=== PATIENT | female | born 1955 | race Caucasian/White ===

== ENCOUNTER 2023-07-01 17:46 | Emergency (ER) | payer MEDICARE, SELFPAY ==
[2023-07-01 17:47] VITALS: BP 136/77; PULSE 87; RESP 18; TEMP 35.9; O2SAT 100; BMI 26.3
[2023-07-01] MEDS: 0.9% Normal Saline (1000mL) 1,000 ML 1000 ML IV (18:49)
[2023-07-01 18:52] VITALS: BP 125/70; PULSE 79
[2023-07-01 18:53] LABS: Absolute Lymphocyte Count 2.12 X10^3/uL (0.83-4.51); Absolute Neutrophil Count 3.5 X10^3/uL (2.0-7.7); Basophil# 0.02 X10^3/uL; Basophil% 0.3 % (0-1); Eosinophil# 0.24 X10^3/uL; Eosinophils% 3.6 % (0-5); Hematocrit 35.9 % (37-47); Lymphocyte # 2.12 X10^3/ul (0.83-4.51); Lymphocyte % 31.6 % (19-41); Mean Corp Hgb Conc 33.4 g/dL (32-36); Mean Corpuscular Hgb 29.9 pg (27.0-32.0); Mean Corpuscular Volume 89.3 fL (81-99); Mean Platelet Vol. 9.7 fl (6.2-12.0); Monocyte# 0.81 X10^3/uL; Monocyte% 12.1 % (0-10); NRBC Flagged by Analyzer 0 % (0-5); Neutrophil % 52.3 % (47-70); Platelet Count 192 K/mm3 (150-450); RBC Distribution Width CV 13.5 % (11.6-14.6); RBC Distribution Width SD 44.1 fl (35.1-43.9); Red Blood Count 4.02 M/mm3 (4.2-5.4); White Blood Count 6.7 K/mm3 (4.4-11.0)
--- NOTE | 2023-07-01 18:55 | EDS_ITS ---
HPI HPI - GI History of Present Illness Chief Complaint: Nausea/Vomiting/Diarrhea Narrative Narrative: 67-year-old female presenting with nausea, vomiting, diarrhea which started on Friday. Patient states that she had a sick granddaughter over who had the same symptoms on Friday. Patient's granddaughter recovered. Patient started having symptoms on Friday. Patient has recovered since and has been able to eat some oatmeal and drink some fluids however today she noted that she was getting vertiginous dizziness. She states it feels like vertigo. She has had this in the past. She states that she does not have any medication for it. She states she is never been prescribed anything for her vertigo. She states that someone with the crystals in the ear or right . Patient denies any fevers over the course the last few days. She does not have a cough, shortness of breath, chest pain. Patient was seen by urgent care who tested her for COVID and influenza. Patient states these were negative. Patient was sent over to the ER out of concern for dehydration. She denies any anything out of the ordinary prior to becoming ill. She denies urinary or vaginal complaints. She denies abdominal pain. [facility] Medical History (Updated 07/01/23 @ 20:[address] Juan Jose Stallworth, ) Dehydration Nausea vomiting and diarrhea Home Medications meclizine 25 mg tablet 25 mg PO TID PRN dizziness #30 tabs 07/01/23 [Rx Last Taken Unknown] ondansetron 4 mg disintegrating tablet 4 mg PO Q8H PRN PRN Nausea #20 tabs 07/01/23 [Rx Last Taken Unknown] Allergy/AdvReac Type Severity Reaction Status Date / Time codeine AdvReac Intermediate Vomiting Verified 07/01/23 17:49 sulfamethoxazole AdvReac Intermediate Vomiting Verified 07/01/23 17:49 [From Bactrim] trimethoprim [From Bactrim] AdvReac Intermediate Vomiting Verified 07/01/23 17:49 Social History Smoking Status: Current every day smoker tobacco type: cigarettes ROS ROS ED Constitutional Constitutional ED: Denies chills, fever(s) or sweats Eyes Eyes: Denies blurry vision or change in vision ENT ENT ED: Denies ear pain or sore throat Cardiovascular Cardiovascular: Denies chest pain, palpitations or racing heartbeat Respiratory/Chest Respiratory/Chest: Denies cough, dyspnea or sputum Gastrointestinal Gastrointestinal: Reports diarrhea, nausea and vomiting; Denies abdominal pain or constipation Genitourinary Genitourinary ED: Denies dysuria, hematuria or urinary frequency Musculoskeletal Musculoskeletal: Denies arthralgias, myalgias or neck pain Integumentary Denies abscess, Abrasions or rash Neurologic Neurologic: Denies headache(s), paresthesias or weakness Psychiatric Psychiatric: Denies anxiety, depression, suicidal ideation or suicidal thoughts Endocrine Endocrinology: Denies polydipsia or polyuria EXAM Physical Exam Const Vital Signs: 07/01/23 17:47 07/01/23 18:52 Temperature 96.7 F L Temperature Source Temporal Pulse Rate 87 79 Respiratory Rate 18 Blood Pressure 136/77 H 125/70 H Blood Pressure Mean 96 88 Pulse Ox 100 Oxygen Delivery Method Room Air Positive well nourished General Appearance ED: NAD HEENT Reports moist mucous membranes HEENT Narrative: Positive Dunmor-Hallpike. Nystagmus noted. normocephalic and atraumatic Eyes PERRL Resp normal respiratory effort and clear to auscultation bilaterally Auscultation: Negative for rales, rhonchi or wheezes Cardio regular rate and regular rhythm GI non-tender Neuro CN's II-XII intact bilaterally Sensorium / Orientation: alert Psych mental status grossly normal MDM MDM MDM Narrative Medical decision making narrative: Patient presenting with nausea, vomiting and diarrhea which has resolved. She was seen by urgent care and there was concerned she is dehydrated although the patient states has been able to drink fluids and eat oatmeal over the course of the day. Her p.o. intake was lower than typical over the past couple of days. She does have a sick granddaughter who had similar symptoms so I suspect this is likely viral. She describes vertiginous dizziness and on exam she has positive Kimani-Hallpike. She is medicated with meclizine and Phenergan. IV line was established. She given a liter normal saline. CT started and tested for COVID influenza will not retest. CBC will be obtained to assess white blood cell count and hemoglobin. BMP to assess renal function, electrolytes, glucose. Will reevaluate. Reevaluation at 8 PM the patient is doing much better. She is been up and ambulating. She had something to eat and drink and she feels much better. I do suspect this is likely benign positional vertigo. CBC shows normal white blood cell count of 6.7. Hemoglobin 12.0. Platelets are normal at 192. Creatinine is elevated at 1.82 with a BUN of 37 and a BUN/creatinine ratio of 20.3 however there is no lab work comparison for this. I was able to log into [employer], and I was not able to find pertinent medical records available for review to compare to the patient's current lab/imaging/workup. There is no comparison BMP. I presume she is dehydrated. It is unclear what her baseline creatinine is. Since she is feeling better I will discharge her home. She likely has a viral syndrome preceding this. She is given Zofran and meclizine for home. Return precautions discussed. Impression: 1. Viral gastroenteritis 2. Vertigo Lab Data Attestation: I reviewed the patient's lab results. Labs: Laboratory Results - last 24 hr 07/01/23 07/01/23 18:40 19:39 WBC 6.7 RBC 4.02 L Hgb 12.0 Hct 35.9 L MCV 89.3 MCH 29.9 MCHC 33.4 RDW Std Deviation 44.1 H RDW Coeff of Christina 13.5 Plt Count 192 MPV 9.7 Immature Gran % (Auto) 0.100 Neut % (Auto) 52.3 Lymph % (Auto) 31.6 Appling % (Auto) 12.1 H Eos % (Auto) 3.6 Baso % (Auto) 0.3 Absolute Neuts (auto) 3.5 Absolute Lymphs (auto) 2.12 Nucleated RBC % 0 Sodium 133 L Potassium 3.5 Chloride 99 Carbon Dioxide 27.0 Anion Gap 7 BUN 37 H Creatinine 1.82 H Estim Creat Clear Calc 27.28 Est GFR (MDRD) Af Amer 35 L Est GFR (MDRD) Non-Af 29 L BUN/Creatinine Ratio 20.3 H Glucose 123 H Calcium 8.7 Urine Color Yellow Urine Clarity Sl. Cloudy Urine pH 5.0 Ur Specific Gower 1.020 Urine Protein 15 H Urine Glucose (UA) Normal Urine Ketones 5 H Urine Occult Blood Negative Urine Nitrite Negative Urine Bilirubin 1 H Urine Urobilinogen 4 H Ur Leukocyte Esterase 100 H Urine RBC 0 SEEN Urine WBC 5-10 SEEN Ur Squamous Epith Cells 0-5 SEEN Urine Bacteria 0 SEEN Urine Mucus 0 SEEN Discharge Plan Triage Chief Complaint: Nausea/Vomiting/Diarrhea ED Provider: Juan Jose Stallworth Dx/Rx/DC Orders Instructions: ED Vertigo, Unspecified, ED Gastroenteritis, Viral (Adult) Prescriptions: New meclizine 25 mg tablet 25 mg PO TID PRN (Reason: dizziness) Qty: 30 0RF ondansetron 4 mg tablet,disintegrating 4 mg PO Q8H PRN PRN (Reason: Nausea) Qty: 20 0RF Primary Care Provider: Care Physician,No Primary Referrals: Care Physician,No Primary [Primary Care Provider] - Disposition Disposition: Home, Self Care
[2023-07-01] MEDS: Meclizine HCl 25 MG Tablet PO (18:58)
[2023-07-01] MEDS: proMETHazine 25 MG/ML Syringe 12.5 MG IM (18:59)
[2023-07-01 19:05] LABS: Anion Gap 7 (5-15); BUN 37 mg/dL (7-18); BUN/Creat Ratio 20.3 RATIO (10-20); Calcium,Total 8.7 mg/dL (8.5-10.1); Chloride 99 mmol/L (98-107); Creatinine, Serum 1.82 mg/dL (0.55-1.02); EST Glomerular Filtration Rate 29 mL/min (>60); Est Glom Filt Rate - Afr Amer 35 mL/min (>60); Estimated Creatinine Clearance 27.28 ml/min; Glucose 123 mg/dL (74-106); Potassium 3.5 mmol/L (3.5-5.1); Sodium Level 133 mmol/L (136-145)
[2023-07-01 19:45] LABS: Bacteria 0 SEEN /hpf (None Seen); Mucous, Urine 0 SEEN /hpf (<or=2+); Red Blood Cells-Urine 0 SEEN /hpf (0-5)
[2023-07-01 19:47] LABS: Color, Urine Yellow (Yellow); Glucose, Dipstick Normal (Normal); Ketone-Dipstick 5 mg/dl (Negative); Leukocyte Esterase-Dipstick 100 /ul (Negative); Nitrite-Dipstick Negative (Negative); Occult Blood-Urine Negative /ul (Negative); Protein-Dipstick 15 mg/dl (Negative); Urine Clarity Sl. Cloudy (Clear); Urine Urobilinogen 4 mg/dl (Normal)
[2023-07-01 19:54] LABS: Urine Bilirubin Dipstick 1 mg/dL (Negative)
[2023-07-01 19:55] LABS: Squamous Epithelial Cells - UA 0-5 SEEN /hpf (5-10); White Blood Cells 5-10 SEEN /hpf (0-5)
[2023-07-01 20:00] VITALS: BP 116/74; PULSE 72; RESP 16; O2SAT 98
--- OUTSIDE RECORDS SUMMARY | 2023-07-01 20:17 | XMS RPT_ITS | CCD ---
Author Name Unknown Address [address] [address] [place] [address] Organization [facility] Care Team Providers Care Mercury Recoverer Name Role Phone Unavailable Primary Care Provider Unavailjess Key MD, Karen Torres Primary Care Provider BRIDENTHAL DIMENSION MILL WORKER/OPTICAL EFFECTS LINE UP PERSON, SEDRICK Primary Care Physic vu BRIDENTHAL DIMENSION MILL WORKER/OPTICAL EFFECTS LINE UP PERSON, SEDRICK Attending Farnaz vailable BRIDENTHAL DIMENSION MILL WORKER/OPTICAL EFFECTS LINE UP PERSON, SEDRICK Primary Care Farnaz vailable BRIDENTHAL, SEDRICK Attending Unavailable KAREN KEY Primary Care Unavailable LOUISEENTHAL, SEDRICK Attending Unavailable KAREN KEY Primary Care Unavailable KAREN KEY Primary Care Unavailable LOUISEENTHAL, SEDRICK Attending Unavailable KAREN KEY Primary Care Unavailable Allergies Allergy Classification Reported Allergen(s) Allergy Type Date of Onset Reaction(s) Facility (5 sources) Codeine Drug Allergy 3 Dizziness, Vomiting Only [facility] (5 sources) Sulfamethoxazole / Trimethoprim Drug Allergy 3 Vomiting Only [facility] Medications Current Medications Medication Drug Class(es) Dates Sig (Normalized) Sig (Original) acetaminophen 500 mg oral tablet (5 sources) take 1 tablet by mouth in the morning acetaminophen (Tylenol) 500 MG tablet Take 500 mg by mouth in the morning and 500 mg in the evening. 0 Active atorvastatin 10 mg oral tablet (5 sources) HMG-CoA Reductase Inhibitor Start: 01-11-2023 atorvastatin (Lipitor) 10 MG tablet chlorthalidone 25 mg oral tablet (5 sources) Thiazide-like Diuretic Start: 01-11-2023 chlorthalidone (Hygroton) 25 MG tablet DIGESTIVE ENZYMES PO (5 sources) DIGESTIVE ENZYME S PO Take 175 mg by mouth in the morning and 175 mg at noon and 175 mg in the evening. 0 Active Fish Oils (5 sources) take 1 capsule by mouth once daily omega-3 (Fish Oil) 1200 MG capsule Take 1,200 mg by mouth daily. 0 Active furosemide 20 mg oral tablet (5 sources) Loop Diuretic Start: 01-31-2023 furosemide (Lasix) 20 MG tablet indomethacin 50 mg oral capsule (5 sources) Nonsteroidal Anti-inflammatory Drug Start: 03-14-2023 indomethacin (Indocin) 50 MG capsule irbesartan 300 mg oral tablet (5 sources) Angiotensin 2 Receptor Jimmy Start: 01-11-2023 irbesartan (Avapro) 300 MG tablet levothyroxine sodium 0.075 mg oral tablet (5 sources) l-Thyroxine Start: 01-11-2023 levothyroxine (Synthroid, Levoxyl) 75 MCG tablet metFORMIN hydrochloride 1000 mg oral tablet (5 sources) Biguanide Start: 03-14-2023 metFORMIN (Glucophage) 1000 MG tablet nystatin [id number] unt/ml topical cream (5 sources) Polyene Antifungal Start: 10-22-2022 nystatin (Mycostatin) cream omeprazole 40 mg delayed release oral capsule (5 sources) Proton Pump Inhibitor Start: 12-15-2022 omeprazole (PriLOSEC) [address] capsule vitamin b12 0.5 mg oral tablet (5 sources) Vitamin B12 take 1 tablet by mouth once daily cyanocobalamin (HM Vitamin B-12) 500 MCG tablet Take 500 mcg by mouth daily. 0 Active vitamin e 450 mg oral capsule (5 sources) take 1 capsule by mouth once daily Vitamin E 450 MG (1000 UT) capsule Take 450 mg by mouth daily. 0 Active Completed/Discontinued Medications Medication Drug Class(es) Dates Sig (Normalized) Sig (Original) ALPRAZolam 0.25 mg oral tablet (3 sources) Benzodiazepine Start: 01-31-2023 End: 04-23-2023 take 1 tablet by mouth once as needed for anxiety ALPRAZolam (Xanax) 0.25 MG tablet TAKE ONE TABLET BY MOUTH EVERY TWELVE HOURS NEEDED FOR ANXIETY 0 01/31/2023 04/02/2023 Discontinued Magnesium (2 sources) End: 04-23-2023 MAGNESIUM PO Take by mouth. 0 04/23/2023 Discontinued (Therapy completed) Problems Active Problems Problem Classification Problem Date Documented Date Episodic/Chronic Diabetes mellitus without complication (9 sources) Type 2 diabetes mellitus without complication; Translations: [Type 2 diabetes mellitus without complications] Onset: 04-02-2023 04-02-2023 Chronic Esophageal disorders (3 sources) Gastroesophageal reflux disease without esophagitis; Translations: [Gastro-esophageal reflux disease without esophagitis] Onset: 05-05-2023 05-05-2023 Chronic Essential hypertension (9 sources) Essential hypertension; Translations: [Essential (primary) hypertension] Onset: 04-02-2023 04-02-2023 Chronic Immunizations and screening for infectious disease (3 sources) Immunization due; Translations: [Encounter for immunization] Onset: 04-23-2023 04-23-2023 Episodic Osteoarthritis (5 sources) Degenerative joint disease involving multiple joints; Translations: [Polyosteoarthritis, unspecified] Onset: 04-02-2023 04-02-2023 Chronic Other liver diseases (3 sources) Steatosis of liver; Translations: [Fatty (change of) liver, not elsewhere classified] Onset: 05-05-2023 05-05-2023 Chronic Other non-traumatic joint disorders (4 sources) Mass of joint of right wrist; Translations: [Other specified joint disorders, right wrist] Onset: 06-04-2023 06-04-2023 Episodic Other non-traumatic joint disorders (2 sources) Other specified joint disorders, right wrist; Translations: [Other specified joint disorders, right wrist] Onset: 06-04-2023 Episodic Other nutritional; endocrine; and metabolic disorders (8 sources) Hereditary hemochromatosis; Translations: [Hereditary hemochromatosis] Onset: 04-02-2023 04-02-2023 Chronic Other nutritional; endocrine; and metabolic disorders (1 source) Hereditary hemochromatosis; Translations: [Hereditary hemochromatosis (HCC)] Onset: 04-02-2023 Chronic Other screening for suspected conditions (not mental disorders or infectious disease) (2 sources) Encounter for screening for malignant neoplasm of colon; Translations: [Encounter for screening for malignant neoplasm of colon] Onset: 04-02-2023 Episodic Thyroid disorders (3 sources) Hypothyroidism; Translations: [Hypothyroidism, unspecified] Onset: 04-23-2023 04-23-2023 Chronic Unclassified (2 sources) Error (VOID this visit); Translations: [Error (VOID this visit)] Onset: 05-07-2023 Past or Other Problems Problem Classification Problem Date Documented Da te Episodic/Chronic Mood disorders (5 sources) Mood disorders Onset: 04-02-2023 04-02-2023 Residual codes; unclassified (4 sources) Past history of procedure; Translations: [Personal history of other medical treatment] Onset: 02-14-2023 04-03-2023 Episodic Results Test Name Value Interpretation Reference Range Facil ity Vital Signs Date Time Vital Sign Value Performing Clinician Faci lity 06-04-2023 13:40-0500 Diastolic blood pressure 78 mm[Hg] Sedrick Bridenthal DIMENSION MILL WORKER - OPTICAL EFFECTS LINE UP PERSON Work Phone: [employer] 06-04-2023 13:40-0500 Systolic blood pressure 131 mm[Hg] Sedrick Bridenthal DIMENSION MILL WORKER - OPTICAL EFFECTS LINE UP PERSON Work Phone: [employer] 06-04-2023 13:11-0500 Body mass index (BMI) [Ratio] 35.26 kg/m2 Sedrick Bridenthal DIMENSION MILL WORKER - OPTICAL EFFECTS LINE UP PERSON Work Phone: [employer] 06-04-2023 13:11-0500 Body temperature 98.4 [degF] Sedrick Bridenthal DIMENSION MILL WORKER - OPTICAL EFFECTS LINE UP PERSON Work Phone: [employer] 06-04-2023 13:11-0500 Body weight 92.53 kg Sedrick Bridenthal DIMENSION MILL WORKER - OPTICAL EFFECTS LINE UP PERSON Work Phone: [employer] 06-04-2023 13:11-0500 Heart rate 78 /min Sedrick Bridenthal DIMENSION MILL WORKER - OPTICAL EFFECTS LINE UP PERSON Work Phone: [employer] 06-04-2023 13:11-0500 Respiratory rate 24 /min Sedrick Bridenthal DIMENSION MILL WORKER - OPTICAL EFFECTS LINE UP PERSON Work Phone: [employer] 06-04-2023 13:11-0500 SaO2% (BldA) [Mass fraction] 98 % Sedrick Bridenthal DIMENSION MILL WORKER - OPTICAL EFFECTS LINE UP PERSON Work Phone: [employer] 04-23-2023 10:06-0500 Body height 162 cm Sedrick Bridenthal DIMENSION MILL WORKER - OPTICAL EFFECTS LINE UP PERSON Work Phone: [employer] 04-23-2023 10:06-0500 Body mass index (BMI) [Ratio] 34.74 kg/m2 Sedrick Bridenthal DIMENSION MILL WORKER - OPTICAL EFFECTS LINE UP PERSON Work Phone: [facility] 04-23-2023 10:06-0500 Body temperature 97.81 [degF] Sedrick Bridenthal DIMENSION MILL WORKER - OPTICAL EFFECTS LINE UP PERSON Work Phone: [facility] 04-23-2023 10:06-0500 Body weight 91.17 kg Sedrick Bridenthal DIMENSION MILL WORKER - OPTICAL EFFECTS LINE UP PERSON Work Phone: [facility] 04-23-2023 10:06-0500 Diastolic blood pressure 87 mm[Hg] Sedrick Bridenthal DIMENSION MILL WORKER - OPTICAL EFFECTS LINE UP PERSON Work Phone: [facility] 04-23-2023 10:06-0500 Heart rate 89 /min Sedrick Bridenthal DIMENSION MILL WORKER - OPTICAL EFFECTS LINE UP PERSON Work Phone: [facility] 04-23-2023 10:06-0500 Respiratory rate 20 /min Sedrick Bridenthal DIMENSION MILL WORKER - OPTICAL EFFECTS LINE UP PERSON Work Phone: [facility] 04-23-2023 10:06-0500 SaO2% (BldA) [Mass fraction] 93 % Sedrick Bridenthal DIMENSION MILL WORKER - OPTICAL EFFECTS LINE UP PERSON Work Phone: [facility] 04-23-2023 10:06-0500 Systolic blood pressure 153 mm[Hg] Sedrick Bridenthal DIMENSION MILL WORKER - OPTICAL EFFECTS LINE UP PERSON Work Phone: [facility] 04-02-2023 12:45-0500 Diastolic blood pressure 78 mm[Hg] Sedrick Bridenthal DIMENSION MILL WORKER - OPTICAL EFFECTS LINE UP PERSON Work Phone: [facility] 04-02-2023 12:45-0500 Systolic blood pressure 132 mm[Hg] Sedrick Bridenthal DIMENSION MILL WORKER - OPTICAL EFFECTS LINE UP PERSON Work Phone: [facility] 04-02-2023 11:07-0500 Body temperature 98.01 [degF] Sedrick Bridenthal DIMENSION MILL WORKER - OPTICAL EFFECTS LINE UP PERSON Work Phone: [facility] 04-02-2023 11:07-0500 Body weight 92.08 kg Sedrick Bridenthal DIMENSION MILL WORKER - OPTICAL EFFECTS LINE UP PERSON Work Phone: [facility] 04-02-2023 11:07-0500 Heart rate 78 /min Sedrick Bridenthal DIMENSION MILL WORKER - OPTICAL EFFECTS LINE UP PERSON Work Phone: [facility] 04-02-2023 11:07-0500 Respiratory rate 24 /min Sedrick Bridenthal DIMENSION MILL WORKER - OPTICAL EFFECTS LINE UP PERSON Work Phone: [facility] 04-02-2023 11:07-0500 SaO2% (BldA) [Mass fraction] 98 % Sedrick Bridenthal DIMENSION MILL WORKER - OPTICAL EFFECTS LINE UP PERSON Work Phone: [facility] Encounters Encounter Date Encounter Type Care Provider Facility Start: 06-09-2023 Telephone encounter Karen Evans MD Work Phone: [facility] Start: 06-05-2023 End: 06-06-2023 ambulatory SEDRICK BRIDENTHAL DIMENSION MILL WORKER/OPTICAL EFFECTS LINE UP PERSON Facility:[facility] Start: 06-05-2023 End: 06-05-2023 Patient encounter procedure SEDRICK BRIDENTHAL DIMENSION MILL WORKER/OPTICAL EFFECTS LINE UP PERSON [facility] Start: 06-04-2023 End: 06-04-2023 ambulatory SEDRICK BRIDENTHAL [facility] Start: 06-04-2023 End: 06-04-2023 Office outpatient visit 15 minutes Sedrick Bridenthal DIMENSION MILL WORKER - OPTICAL EFFECTS LINE UP PERSON Work Phone: [facility] Procedures Date Procedure Procedure Detail Performing Clinician Start: 05-07-2023 Lipid 1996 panel - S rosendo or Plasma Sedrick Bridenthal DIMENSION MILL WORKER - OPTICAL EFFECTS LINE UP PERSON Work Phone: Start: 05-07-2023 Thyrotropin [Units/v olume] in Serum or Plasma Sedrick Bridenthal DIMENSION MILL WORKER - OPTICAL EFFECTS LINE UP PERSON Work Phone: Start: 04-23-2023 Adult depression scr eening assessment Sedrick Bridenthal DIMENSION MILL WORKER - OPTICAL EFFECTS LINE UP PERSON Work Phone: Start: 04-02-2023 Adult depression scr eening assessment Sedrick Milleral DIMENSION MILL WORKER - OPTICAL EFFECTS LINE UP PERSON Work Phone: Start: 02-12-2023 Mammography Sedrick buchanan DIMENSION MILL WORKER - OPTICAL EFFECTS LINE UP PERSON Work Phone: Plan of Treatment Date Care Activity Detail Author Start: 04-23-2026 Screening for malign ant neoplasm of colon Colorectal Cancer Screening [facility] Immunizations Immunization Date Immunization Notes Care Provider Fa cility 04-23-2023 Pneumococcal Conjuga te PCV20, Pf (Prevnar 20) Sedrick Gilenthal DIMENSION MILL WORKER - OPTICAL EFFECTS LINE UP PERSON Work Phone: [facility] 03-01-2022 Moderna SARS-CoV-2 Vaccination Sedrick Louiseenthal DIMENSION MILL WORKER - OPTICAL EFFECTS LINE UP PERSON Work Phone: [facility] 02-25-2022 Influenza, Seasonal, Quadrivalent, Adjuvanted Sedrick Bridenthal DIMENSION MILL WORKER - OPTICAL EFFECTS LINE UP PERSON Work Phone: [facility] 02-25-2022 influenza virus vacc ine, unspecified formulation Sedrikc Louiseenthal DIMENSION MILL WORKER - OPTICAL EFFECTS LINE UP PERSON Work Phone: [facility] 12-25-2021 zoster vaccine recombinant Sedrick Louiseenthal DIMENSION MILL WORKER - OPTICAL EFFECTS LINE UP PERSON Work Phone: [facility] 04-12-2021 Moderna SARS-CoV-2 Vaccination Sedrick Louiseenthal DIMENSION MILL WORKER - OPTICAL EFFECTS LINE UP PERSON Work Phone: [facility] 03-16-2021 Influenza, Seasonal, Quadrivalent, Adjuvanted Sedrick Louiseenthal DIMENSION MILL WORKER - OPTICAL EFFECTS LINE UP PERSON Work Phone: [facility] 09-04-2020 Moderna SARS-CoV-2 Vaccination Sedrick Louiseenthal DIMENSION MILL WORKER - OPTICAL EFFECTS LINE UP PERSON Work Phone: [facility] 08-07-2020 Moderna SARS-CoV-2 Vaccination Sedrick Bridenthal DIMENSION MILL WORKER - OPTICAL EFFECTS LINE UP PERSON Work Phone: [facility] 03-17-2009 influenza virus vacc ine, whole virus Sedrick Louiseenthal DIMENSION MILL WORKER - OPTICAL EFFECTS LINE UP PERSON Work Phone: [facility] 03-17-2009 influenza virus vacc ine, unspecified formulation Sedrick Bridenthal DIMENSION MILL WORKER - OPTICAL EFFECTS LINE UP PERSON Work Phone: [facility] 05-30-2003 hepatitis B vaccine, adult dosage Sedrick Bridenthal DIMENSION MILL WORKER - OPTICAL EFFECTS LINE UP PERSON Work Phone: [facility] 12-20-2002 hepatitis B vaccine, adult dosage Sedrick Bridenthal DIMENSION MILL WORKER - OPTICAL EFFECTS LINE UP PERSON Work Phone: [facility] 11-15-2002 hepatitis B vaccine, adult dosage Sedrick Bridenthal DIMENSION MILL WORKER - OPTICAL EFFECTS LINE UP PERSON Work Phone: [facility] Payers Date Payer Category Payer Private Health Insurance [id number] 2022 Medicare [employer] UHC AARP MEDICARE ADVANTAGE [id number] 2022-Present [phone] [address] [address] [place] [address] Medicare HMO [id number] 2022 Medicare [id number] 1955 Unknown [id number] Social History Date Type Detail Facility Tobacco 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 Start: 1955 Sex Assigned At Not on file [facility] Start: 04-02-2023 End: 04-23-2023 Gender identity Not on file [facility] Start: 04-02-2023 Tobacco smoking status ARIS Ex-smoke r [facility] End: 05-26-2019 History of tobacco use Current smoker [facility] End: 05-26-2019 History of tobacco use Cigarette Smoker [facility] Start: 04-02-2023 End: 04-23-2023 Cigarettes smoked current (pack per day) - Reported [address] [facility] Start: 04-02-2023 Tobacco use and exposure Smokeless t obacco non-user [facility] Start: 04-02-2023 End: 06-04-2023 Alcohol intake Ex-drinker (finding) [facility] Adolescent depressio n screening assessment [address] [facility] (I/We) worried wheth er (my/our) food would run out before (I/we) got money to buy more. Never true [facility] Clinical Notes 03-21-2023 to 06-10-2023 Telephone Encounter - ASAF Ramos CNP - 06/10/2023 7:28 AM ESTTelephone Encounter - ASAF Ramos CNP - 06/10/2023 7:28 AM ESTMandi Narciso - 06/04/2023 1:20 PM EST Note Date & Type Note Facility 06-10-2023 Note Received xray result s. Please notify patient, No bony mass. Recommend seeing erp specialist (previously referred) for further evaluation as may need an MRI to further evaluate. (This will be ordered by them if needed). [facility] 06-10-2023 Telephone encount er Note Received xray results. Please notify patient, No bony mass. Recommend seeing erp specialist (previously referred) for further evaluation as may need an MRI to further evaluate. (This will be ordered by them if needed). [facility] 06-10-2023 Miscellaneous Notes Formattin g of this note might be different from the original. Received xray results. Please notify patient, No bony mass. Recommend seeing erp specialist (previously referred) for further evaluation as may need an MRI to further evaluate. (This will be ordered by them if needed). Noted. See previous TE from today Name of caller: Yodit Contact phone number: [phone] Relationship to Patient: patient Provider: Dr Key Practice: [facility] Chief Complaint/Reason for Call: Patient states she spoke with radiology department and they advised that the x-ray results will be out later today and will be faxed over to the office. Please advise, thank you Best time of day caller can be reached: any Patient advised that office/PCP has 24-48 business hours to return their call: N/A documented in this encounter [facility] 06-09-2023 Telephone encount er Note Noted. [facility] 06-09-2023 Telephone encount er Note See previous TE from today Name of caller: Yodit Contact phone number: [phone] Relationship to Patient: patient Provider: Dr Key Practice: [facility] Chief Complaint/Reason for Call: Patient states she spoke with radiology department and they advised that the x-ray results will be out later today and will be faxed over to the office. Please advise, thank you Best time of day caller can be reached: any Patient advised that office/PCP has 24-48 business hours to return their call: N/A [facility] 06-04-2023 Note Suspect ganglion cys t of the right wrist. Will obtain imaging to rule out anything worrisome. Continue compression sleeve. Referral placed to orthopedics for further evaluation and treatment due to size and bothersome. [facility] 06-04-2023 Evaluation + Plan note Associated Problem(s): Mass of joint of right wrist Suspect ganglion cyst of the right wrist. Will obtain imaging to rule out anything worrisome. Continue compression sleeve. Referral placed to orthopedics for further evaluation and treatment due to size and bothersome. [facility] 06-04-2023 Miscellaneous Notes Associate d Problem(s): Mass of joint of right wrist Suspect ganglion cyst of the right wrist. Will obtain imaging to rule out anything worrisome. Continue compression sleeve. Referral placed to orthopedics for further evaluation and treatment due to size and bothersome. documented in this encounter [facility] 06-04-2023 History of Presen t illness Narrative Patient was identified by name and Date of . Images from the original note were not included. 06/04/2023 Yodit Landin (: 1955) is a 67 y.o. female , Established patient, here for evaluation of the following chief complaint(s): Cyst (Bilateral-but right is the one that is painful) ASSESSMENT/PLAN: 1. Mass of joint of right wrist Assessment & Plan: Suspect ganglion cyst of the right wrist. Will obtain imaging to rule out anything worrisome. Continue compression sleeve. Referral placed to orthopedics for further evaluation and treatment due to size and bothersome. Orders: - XR wrist 3+ views right - [facility] Orthopedics - [place] No follow-ups on file. SUBJECTIVE/OBJECTIVE: HPI - Yodit Landin (: 1955) is a 67 y.o. female , Established patient, here for the evaluation of the following chief complaint(s): Cyst (Bilateral-but right is the one that is painful) Right wrist swelling and pain worsening the past week. Reports that she has had something similar in the past however was not as bad. Does have a ganglion cyst on the left wrist not sure if this is also a ganglion cyst or not. The swelling is slightly better than earlier this week after she placed a compression sleeve over it. Denies any numbness or tingling or weakness in the hand. History of carpal tunnel surgery in 06/2022 in [place] on the right wrist. Prior to Admission medications Medication Sig Start Date End Date Taking? Authorizing Provider acetaminophen (Tylenol) 500 MG tablet Take 500 mg by mouth in the morning and 500 mg in the evening. Yes Historical Provider, atorvastatin (Lipitor) 10 MG tablet 01/11/23 Yes Historical Provider, chlorthalidone (Hygroton) 25 MG tablet 01/11/23 Yes Historical Provider, cyanocobalamin (HM Vitamin B-12) 500 MCG tablet Take 500 mcg by mouth daily. Yes Historical Provider, DIGESTIVE ENZYMES PO Take 175 mg by mouth in the morning and 175 mg at noon and 175 mg in the evening. Yes Historical Provider, furosemide (Lasix) 20 MG tablet 01/31/23 Yes Historical Provider, indomethacin (Indocin) 50 MG capsule 03/14/23 Yes Historical Provider, irbesartan (Avapro) 300 MG tablet 01/11/23 Yes Historical Provider, levothyroxine (Synthroid, Levoxyl) 75 MCG tablet 01/11/23 Yes Historical Provider, metFORMIN (Glucophage) 1000 MG tablet 03/14/23 Yes Historical Provider, nystatin (Mycostatin) cream 10/22/22 Yes Historical Provider, omega-3 (Fish Oil) 1200 MG capsule Take 1,200 mg by mouth daily. Yes Historical Provider, omeprazole (PriLOSEC) [address] capsule 12/15/22 Yes Historical Provider, Vitamin E 450 MG (1000 UT) capsule Take 450 mg by mouth daily. Yes Historical Provider, Review of Systems Constitutional: Negative for activity change, chills, fatigue, fever and unexpected weight change. Respiratory: Negative. Cardiovascular: Negative. Vitals: 06/04/23 1311 06/04/23 1340 BP: (!) 149/77 131/78 Pulse: 78 Resp: 24 Temp: 36.9 C (98.4 F) TempSrc: Infrared SpO2: 98% Weight: 204 lb (92.5 kg) Physical Exam Constitutional: General: She is not in acute distress. Appearance: Normal appearance. She is not ill-appearing. Pulmonary: Effort: Pulmonary effort is normal. Musculoskeletal: Right wrist: Swelling present. Hands: Neurological: Mental Status: She is alert and oriented to person, place, and time. An electronic signature was used to authenticate this note. ASAF Ramos CNP 06/04/2023 3:21 PM documented in this encounter [facility] 04-23-2023 Note Check CBC CMP TIBC i bird and ferritin. Consider referral to hematology. [facility] 04-23-2023 Evaluation + Plan note Associated Problem(s): Hypertension Blood pressure initially elevated. Continue current medications and follow-up for labs [facility] 04-23-2023 Miscellaneous Notes Associate d Problem(s): Hypertension Blood pressure initially elevated. Continue current medications and follow-up for labs Associated Problem(s): Hereditary hemochromatosis (HCC) Check CBC CMP TIBC iron and ferritin. Consider referral to hematology. Associated Problem(s): Type 2 diabetes mellitus without complication, without long-term current use of insulin (CMS/HCC) (HCC) Controlled. Glucose readings have been good that she brought in from home. Will check hemoglobin A1c documented in this encounter [facility] 04-23-2023 Evaluation + Plan note Associated Problem(s): Hereditary hemochromatosis (HCC) Check CBC CMP TIBC iron and ferritin. Consider referral to hematology. [facility] 04-23-2023 Evaluation + Plan note Associated Problem(s): Type 2 diabetes mellitus without complication, without long-term current use of insulin (CMS/HCC) (HCC) Controlled. Glucose readings have been good that she brought in from home. Will check hemoglobin A1c [facility] 04-23-2023 History of Presen t illness Narrative Patient was identified by name and Date of . Health Main: AWV-Today DEXA-declined Colon-completed in [place]([facility] x2 yrs ago)-sent MYRNA Pneumo-discuss with provider-done at visit DM foot-pended DM dental-done a year ago Zoster-stated it was completed-[facility] [id number] Lung-declined RSV-declined Flu-completed at [facility] Patient was identified by name and Date Of . After obtaining informed consent, Immunization(s) were ordered by provider. The patient and or Family/Guardian was instructed on the benefits and risks related to the vaccine or toxoid. Information given to the patient and or Family/Guardian with signs and symptoms of adverse effects and when to seek medical attention. Site was cleansed with an alcohol swab, immunization(s) were given, and bandage(s) were applied to injection site. Patient tolerated well, advised patient and or Family/Guardian to stay in the office 20 minutes after injection has been given to observe for any reaction. Immunization(s) was given by Dian Stuart MA. Images from the original note were not included. [facility] [id number] Dept: [phone] Dept Chief Complaint: Yodit Landin is an 67 y.o. female here for an annual wellness visit. Assessment/Plan : Problem List Items Addressed This Visit Circulatory Hypertension Blood pressure initially elevated. Continue current medications and follow-up for labs Endocrine/Metabolic Type 2 diabetes mellitus without complication, without long-term current use of insulin (CMS/HCC) (HCC) Controlled. Glucose readings have been good that she brought in from home. Will check hemoglobin A1c Relevant Orders Hemoglobin A1c Lipid panel Hm Diabetes Foot Exam (Completed) Hereditary hemochromatosis (HCC) Check CBC CMP TIBC iron and ferritin. Consider referral to hematology. Relevant Orders Iron and TIBC Ferritin CBC Other Visit Diagnoses Routine general medical examination at health care facility - Primary Hypothyroidism, unspecified type Relevant Orders TSH Immunization due Relevant Orders Pneumococcal conjugate vaccine 20-valent IM (Completed) I have reviewed and reconciled the medication list with the patient today. Current Outpatient Medications Medication Sig Dispense Refill acetaminophen (Tylenol) 500 MG tablet Take 500 mg by mouth in the morning and 500 mg in the evening. atorvastatin (Lipitor) 10 MG tablet chlorthalidone (Hygroton) 25 MG tablet cyanocobalamin (HM Vitamin B-12) 500 MCG tablet Take 500 mcg by mouth daily. DIGESTIVE ENZYMES PO Take 175 mg by mouth in the morning and 175 mg at noon and 175 mg in the evening. furosemide (Lasix) 20 MG tablet indomethacin (Indocin) 50 MG capsule irbesartan (Avapro) 300 MG tablet levothyroxine (Synthroid, Levoxyl) 75 MCG tablet metFORMIN (Glucophage) 1000 MG tablet nystatin (Mycostatin) cream omega-3 (Fish Oil) 1200 MG capsule Take 1,200 mg by mouth daily. omeprazole (PriLOSEC) [address] capsule Vitamin E 450 MG (1000 UT) capsule Take 450 mg by mouth daily. ALPRAZolam (Xanax) 0.25 MG tablet Take 0.25 mg by mouth Daily as needed. MAGNESIUM PO Take by mouth. No current facility-administered medications for this visit. Also reviewed during this visit: Found an apartment/[facility] [place]. Will be moving soon. Will be going to [place] and visiting with her sister. Still will be watching her grandkids. Hasd a good thanksgiving. DM- controlled. Checks glucose every am- 120-150 fasting. Hereditary hemochromatosis-states she has been stable and has not needed any transfusions for over 2 years. Reports that we monitor her CBC and iron levels every 3 months Hypothyroidism-has been stable on her current dose. Is due for TSH check Hyperlipidemia-currently on atorvastatin 10 mg daily will recheck lipid panel The following health maintenance schedule was reviewed with the patient and provided in printed form in the after visit summary: Health Maintenance Topic Date Due TSH Level Never done Lipid Panel Never done Diabetes: Hemoglobin A1C Never done Medicare Advantage Annual Wellness Visit (AWV) Never done Colorectal Cancer Screening Never done Zoster Vaccines (1 of 2) Never done Influenza Vaccine (1) 01/24/2023 Diabetes: Dental Exam 04/23/2023 RSV Immunization aged 60 or older (1 - 1-dose 60+ series) 10/22/2023 (Originally 2014) Lung Cancer Screening 10/22/2023 (Originally 2004) DTaP/Tdap/Td Vaccines (1 - Tdap) 04/02/2024 (Originally 1973) Hepatitis C Screening 04/02/2024 (Originally 1972) COVID-19 Vaccine (1) 04/02/2024 (Originally 01/14/1956) Bone Density Scan 04/23/2024 (Originally 1955) Mammogram 02/13/2024 Depression Screening 04/23/2024 Diabetes: Foot Exam 04/23/2024 Diabetes: Retinopathy Screening 02/14/2025 Hepatitis B Vaccines Completed Pneumococcal Vaccine: 65+ Years Completed RSV Immunization under 20 Months Aged Out HIB Vaccines Aged Out IPV Vaccines Aged Out Hepatitis A Vaccines Aged Out Meningococcal Vaccine Aged Out Rotavirus Vaccines Aged Out HPV Vaccines Aged Out List of current healthcare providers: Patient Care Team: Karen Key MD as PCP - General (Family Medicine) Orders Placed This Encounter Procedures Pneumococcal conjugate vaccine 20-valent IM Iron and TIBC Standing Status: Future Number of Occurrences: 1 Standing Expiration Date: 04/23/2024 Ferritin Standing Status: Future Number of Occurrences: 1 Standing Expiration Date: 04/23/2024 CBC Standing Status: Future Number of Occurrences: 1 Standing Expiration Date: 04/23/2024 TSH Standing Status: Future Number of Occurrences: 1 Standing Expiration Date: 04/23/2024 Hemoglobin A1c Standing Status: Future Number of Occurrences: 1 Standing Expiration Date: 04/23/2024 Lipid panel Standing Status: Future Number of Occurrences: 1 Standing Expiration Date: 04/23/2024 Hm Diabetes Foot Exam Subjective : Review of Systems Constitutional: Negative for activity change, chills, fatigue and fever. HENT: Positive for hearing loss (75 % both ears). Eyes: Negative. Respiratory: Negative. Cardiovascular: Negative. Gastrointestinal: Negative. Genitourinary: Negative. Musculoskeletal: Positive for arthralgias. Neurological: Positive for dizziness (intermittently). Negative for light-headedness and headaches. Psychiatric/Behavioral: Negative for self-injury, sleep disturbance and suicidal ideas. The patient is nervous/anxious. Physical Exam Constitutional: General: She is not in acute distress. Appearance: Normal appearance. She is not ill-appearing. HENT: Head: Normocephalic and atraumatic. Right Ear: Tympanic membrane normal. Left Ear: Tympanic membrane normal. Nose: Nose normal. No congestion or rhinorrhea. Mouth/Throat: Mouth: Mucous membranes are moist. Pharynx: Oropharynx is clear. Comments: Partials Eyes: Conjunctiva/sclera: Conjunctivae normal. Cardiovascular: Rate and Rhythm: Normal rate and regular rhythm. Pulses: Normal pulses. Heart sounds: Normal heart sounds. Pulmonary: Effort: Pulmonary effort is normal. Breath sounds: Normal breath sounds. Abdominal: General: Abdomen is flat. Bowel sounds are normal. Palpations: Abdomen is soft. Tenderness: There is no abdominal tenderness. Musculoskeletal: Cervical back: Normal range of motion and neck supple. Right lower leg: No edema. Left lower leg: No edema. Lymphadenopathy: Cervical: No cervical adenopathy. Skin: General: Skin is warm and dry. Neurological: Mental Status: She is alert and oriented to person, place, and time. Psychiatric: Mood and Affect: Mood normal. Behavior: Behavior normal. Thought Content: Thought content normal. Judgment: Judgment normal. Health Risk Assessment: General: General In general, how would you say your health is?: (P) Very good In the past 7 days, have you experienced any of the following: New or Increased Pain, New or Increased Fatigue, Loneliness, Social Isolation, Stress or Anger?: (P) No Do you get the social and emotional suppport you need?: (P) Yes Health Habits/Nutrition: Health Habits / Nutrition On average, how many days per week do you engage in moderate to strenous exercise (like a brisk walk)?: (P) 1 day Have you lost any weight without trying in the past 3 months? : (P) No Have you seen the dentist within the past year?: (!) (P) No Hearing/ Vision: Hearing / Vision Do you or your family notice any trouble with your hearing that hasn't been managed with hearing aids?: (!) (P) Yes Do you have difficulty driving, watching TV, or doing any of your daily activities because of your eyesight?: (P) No Have you had an eye exam within the past year?: (P) Yes No results found. Interventions: Safety: Safety Do you have a working smoke detector?: (P) Yes Do you have any tripping hazards - loose or unsecured carpets or rugs?: (P) No Do you have any tripping hazards - clutter in doorways, halls, or stairs?: (P) No Do you have either shower bars, grab bars, non-slip mats or non-slip surfaces in your shower or bathtub? : (P) Yes Do all your stairways have a railing or banister? : (P) Yes Do you fasten your seatbelt when you are in a car?: (P) Yes ADL: ADL In the past 7 days, did you need help from others to perform any of the following everyday activities: Eating, dressing, grooming,bathing, toileting, or walking / balance? : (P) No In the past 7 days, did you need help from others to take care of any of the following: laundry, housekeeping, banking / finances,shopping, telephone use, food preparation, transportation, or taking medications? : (P) No Living Will: Living Will Do you have a living will?: (P) Yes Requested copy for chart. Cognitive: Cognitive Screening: Mini-Cog Clock Drawing Test (CDT): 2 Words Recalled: 3 Total Score: 5 Total Score Interpretation: Normal Mini-Cog Interventions: Fall Risk: Fall Risk One or more falls in the last year:: No Advised to use a cane or walker to get around safely:: No Feels unsteady when walking:: Yes Steadies self on furniture while walking at home:: No Worried about falling:: No Depression Screening: Over the past 2 weeks, how often have you been bothered by any of the following problems? Little interest or pleasure in doing things: Several days Feeling down, depressed, or hopeless: Several days Patient Health Questionnaire-2 Score: 2 If you checked off any problems on this questionnaire so far, How difficult have these problems made it for you to do your work, take care of things at home, or get along with other people?: Somewhat difficult Interventions: Tobacco Use: Social History Tobacco Use Smoking Status Former Packs/day: 1.00 Years: 30.00 Additional pack years: 0.00 Total pack years: 30.00 Types: Cigarettes Quit date: 2019 Years since quittin.9 Smokeless Tobacco Never Alcohol Use: Audit Alcohol Screening Q1: How often do you have a drink containing alcohol?: (P) Never Q2: How many drinks containing alcohol do you have on a typical day when you are drinking?: (P) Patient does not drink Q3: How often do you have six or more drinks on one occasion?: (P) Never Audit-C Score: (P) 0 Skip to questions 9-10?: (P) 1 Objective : BP (!) 153/87 Pulse 89 Temp 36.6 C (97.8 F) (Infrared) Resp 20 Ht 5' 3.78 (1.62 m) Wt 201 lb (91.2 kg) SpO2 93% BMI 34.74 kg/m No results found. documented in this encounter [facility] 04-23-2023 Instructions ASAF Ramos CNP - 04/23/2023 10:00 AM EST Personalized Preventative Plan for Yodit Landin - 04/23/2023 Medicare offers a range of preventative health benefits. Some of the tests and screenings are paid in full while others may be subject to a deductible, co-insurance, and / or copay. Some of these benefits include a comprehensive review of your medical history including lifestyle, illnesses that may run in your family, and various assessments and screenings as appropriate. After reviewing your medical record and screening and assessments performed today, your provider may have ordered immunizations, labs, imaging, and / or referrals for you. A list of these orders (if applicable) as well as your Preventative Care list are included within your After Visit Summary for your review. Other Preventative Recommendations: A preventive eye exam by an emergency specialist is recommended every 1-2 years to screen for glaucoma, cataracts, macular degeneration, and other eye disorders. A preventive dental visit is recommended every 6 months. Try to get at least 150 minutes of exercise per week or 10,000 steps per day on a pedometer. You need 1200-1500mg of calcium and 7610-7978 international units of vitamin D per day. It is possible to meet your calcium requirement with diet alone, but a vitamin D supplement is usually necessary to meet this goal. When exposed to the sun, use a sunscreen that protects against both UVA and UVB radiation with an SPF of 30 or greater. Reapply every 2-3 hours or after sweating, drying off with a towel, or swimming. Always wear a seat belt when traveling in a car. Always wear a helmet when riding a bicycle or a motorcycle The following attachments cannot be sent through Care Everywhere.Pneumococcal Conjugate Vaccine (20-Valent), ADULT (Belarusian)documented in this encounter [facility] 04-02-2023 Note Obtain records. Retu rn for labs as scheduled (check cbc, cmp, TIBC, iron and ferritin) consider referral to hematology [facility] 04-02-2023 Evaluation + Plan note Associated Problem(s): Primary osteoarthritis involving multiple joints Obtain records. For now we will continue indomethacin 50 mg daily for pain. [facility] 04-02-2023 Miscellaneous Notes Associate d Problem(s): Primary osteoarthritis involving multiple joints Obtain records. For now we will continue indomethacin 50 mg daily for pain. Associated Problem(s): Hypertension Initial blood pressure elevated 161/81. Repeat blood pressure good 132/78. Continue chlorthalidone 25 mg daily, Lasix 20 mg, irbesartan 300 mg daily. Associated Problem(s): Type 2 diabetes mellitus without complication, without long-term current use of insulin ([facility]/HCC) (HCC) Controlled. Glucose readings fasting under 110 consistently per patient diabetes log. Will check hemoglobin A1c at next visit. Associated Problem(s): Hereditary hemochromatosis (HCC) Obtain records. Return for labs as scheduled (check cbc, cmp, TIBC, iron and ferritin) consider referral to hematology documented in this encounter [facility] 04-02-2023 Evaluation + Plan note Associated Problem(s): Hypertension Initial blood pressure elevated 161/81. Repeat blood pressure good 132/78. Continue chlorthalidone 25 mg daily, Lasix 20 mg, irbesartan [address] mg daily[address] [facility] 04-02-2023 Evaluation + Plan note Associated Problem(s): Type 2 diabetes mellitus without complication, without long-term current use of insulin ([facility]/HCC) (HCC) Controlled. Glucose readings fasting under 110 consistently per patient diabetes log. Will check hemoglobin A1c at next visit. [facility] 04-02-2023 Evaluation + Plan note Associated Problem(s): Hereditary hemochromatosis (HCC) Obtain records. Return for labs as scheduled (check cbc, cmp, TIBC, iron and ferritin) consider referral to hematology [facility] 04-02-2023 History of Presen t illness Narrative Patient was identified by name and Date of . Health Main: AWV-needs scheduled DEXA-pended Colon-pended Covid-declined PHQ-completed Hep C-declined Tdap-declined Mammo-completed Sept Zoster-declined Pneumo-declined [place]-[facility] [place] Flu-completed [facility] MYRNA SENT TO [facility](PCP) AND [facility] Images from the original note were not included. 04/02/2023 Yodit Landin (: 1955) is a 67 y.o. female , New patient, here for evaluation of the following chief complaint(s): New Patient and Health Maintenance (AWV-needs scheduled/DEXA-pended/Colon-pen ded/Covid-declined/PHQ-complete d/Hep C-declined/Tdap-declined/Mammo- completed Sept/Zoster-declined/Pneumo-dec lined/Flu-completed [facility]) ASSESSMENT/PLAN: 1. Type 2 diabetes mellitus without complication, without long-term current use of insulin (CMS/HCC) (HCC) Assessment & Plan: Controlled. Glucose readings fasting under 110 consistently per patient diabetes log. Will check hemoglobin A1c at next visit. 2. Hereditary hemochromatosis (HCC) Assessment & Plan: Obtain records. Return for labs as scheduled (check cbc, cmp, TIBC, iron and ferritin) consider referral to hematology 3. Primary hypertension Assessment & Plan: Initial blood pressure elevated 161/81. Repeat blood pressure good 132/78. Continue chlorthalidone 25 mg daily, Lasix 20 mg, irbesartan 300 mg daily. We will obtain records and have patient follow-up for Medicare annual wellness visit with fasting labs. Follow up for with primary care provider as scheduled. SUBJECTIVE/OBJECTIVE: HPI - Yodit Landin presents as new patient, previous primary care provider [place] provider, last seen ? -01/2023 by previous provider. Specialists/other providers? 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 Chief complaint(s): New Patient and Health Maintenance (AWV-needs scheduled/DEXA-pended/Colon-pen ded/Covid-declined/PHQ-complete d/Hep C-declined/Tdap-declined/Mammo- completed Sept/Zoster-declined/Pneumo-dec lined/Flu-completed [facility]) Has been out of state for about 10 years. 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 Recently moved back to [place] to be close to her son and abwprthr-fo-ymr whom she states were having some marital troubles and she came back to help with watching their 3-year-old daughter. She is currently living with Son-Hi and ALIE Lewis , grandkids 1 grandson- 18. , 3 yo granddaughter. She is looking for a place to live on her own and has put in several applications to the surrounding apartment complexes. Reports she did have a colonoscopy last [id number] in [place]-reports she was told it was normal -we will obtain records Hemochromatosis- hx of blood transfusions for about 1 year - was told to check iron levele s/labs every 3 months., will be due in the month or so. DM-currently taking metformin 1000 mg twice daily, checks glucose daily in a.m. and has been consistently under 110, last eye exam jan 2023, Arthritis-reports arthritis in multiple joints, takes indomethacin 50 mg daily for pain states it upsets her stomach a little but is tolerable. Also sees a chiropractor in [place]. Hypertension-states her blood pressure is normally in the 130s over 70s. Takes her blood pressure medicine daily, denies any chest pain or shortness of breath. Past Medical History: Diagnosis Date Diabetes mellitus (HCC) Hemochromatosis Hypertension Past Surgical History: Procedure Laterality Date SECTION, LOW TRANSVERSE HYSTERECTOMY ROTATOR CUFF REPAIR Right Family History Problem Relation Name Age of Onset Ovarian cancer Mother Arthritis Father Hearing loss Father Stroke Father Arthritis Brother Hearing loss Brother Hyperlipidemia Brother Social History Socioeconomic History Marital status: Spouse name: Not on file Number of children: Not on file Years of education: Not on file Highest education level: Not on file Occupational History Not on file Tobacco Use Smoking status: Former Packs/day: 1.00 Years: 30.00 Additional pack years: 0.00 Total pack years: 30.00 Types: Cigarettes Quit date: 2019 Years since quittin.8 Smokeless tobacco: Never Vaping Use Vaping Use: Never used Substance and Sexual Activity Alcohol use: Not Currently Drug use: Never Sexual activity: Defer Other Topics Concern Not on file Social History Narrative Not on file Social Determinants of Health Financial Resource Strain: Not on file Food Insecurity: Not on file Transportation Needs: Not on file Physical Activity: Not on file Stress: Not on file Social Connections: Not on file Intimate Partner Violence: Not on file Housing Stability: Not on file Prior to Admission medications Medication Sig Start Date End Date Taking? Authorizing Provider acetaminophen (Tylenol) 500 MG tablet Take 500 mg by mouth in the morning and 500 mg in the evening. Yes Historical Provider, ALPRAZolam (Xanax) 0.25 MG tablet TAKE ONE TABLET BY MOUTH EVERY TWELVE HOURS NEEDED FOR ANXIETY 01/31/23 Yes Historical Provider, atorvastatin (Lipitor) 10 MG tablet 01/11/23 Yes Historical Provider, chlorthalidone (Hygroton) 25 MG tablet 01/11/23 Yes Historical Provider, cyanocobalamin (HM Vitamin B-12) 500 MCG tablet Take 500 mcg by mouth daily. Yes Historical Provider, DIGESTIVE ENZYMES PO Take 175 mg by mouth in the morning and 175 mg at noon and 175 mg in the evening. Yes Historical Provider, furosemide (Lasix) 20 MG tablet 01/31/23 Yes Historical Provider, indomethacin (Indocin) 50 MG capsule 03/14/23 Yes Historical Provider, irbesartan (Avapro) 300 MG tablet 01/11/23 Yes Historical Provider, levothyroxine (Synthroid, Levoxyl) 75 MCG tablet 01/11/23 Yes Historical Provider, MAGNESIUM PO Take by mouth. Yes Historical Provider, metFORMIN (Glucophage) 1000 MG tablet 03/14/23 Yes Historical Provider, nystatin (Mycostatin) cream 10/22/22 Yes Historical Provider, omega-3 (Fish Oil) 1200 MG capsule Take 1,200 mg by mouth daily. Yes Historical Provider, omeprazole (PriLOSEC) [address] capsule 12/15/22 Yes Historical Provider, Vitamin E 450 MG (1000 UT) capsule Take 450 mg by mouth daily. Yes Historical Provider, Review of Systems Constitutional: Negative for activity change, chills, fatigue and fever. HENT: Positive for hearing loss (75 % both ears). Eyes: Negative. Respiratory: Negative. Cardiovascular: Negative. Gastrointestinal: Negative. Genitourinary: Negative. Musculoskeletal: Positive for arthralgias. Neurological: Positive for dizziness (intermittently). Negative for light-headedness and headaches. Psychiatric/Behavioral: Negative for self-injury, sleep disturbance and suicidal ideas. The patient is nervous/anxious. Vitals: 04/02/23 1107 04/02/23 1245 BP: (!) 161/81 132/78 Pulse: 78 Resp: 24 Temp: 36.7 C (98 F) TempSrc: Infrared SpO2: 98% Weight: 203 lb (92.1 kg) Physical Exam Constitutional: General: She is not in acute distress. Appearance: Normal appearance. She is not ill-appearing. HENT: Head: Normocephalic and atraumatic. Right Ear: Tympanic membrane normal. Left Ear: Tympanic membrane normal. Nose: Nose normal. No congestion or rhinorrhea. Mouth/Throat: Mouth: Mucous membranes are moist. Pharynx: Oropharynx is clear. Comments: Partials Eyes: Conjunctiva/sclera: Conjunctivae normal. Cardiovascular: Rate and Rhythm: Normal rate and regular rhythm. Pulses: Normal pulses. Heart sounds: Normal heart sounds. Pulmonary: Effort: Pulmonary effort is normal. Breath sounds: Normal breath sounds. Abdominal: General: Abdomen is flat. Bowel sounds are normal. Palpations: Abdomen is soft. Tenderness: There is no abdominal tenderness. Musculoskeletal: Cervical back: Normal range of motion and neck supple. Right lower leg: No edema. Left lower leg: No edema. Lymphadenopathy: Cervical: No cervical adenopathy. Skin: General: Skin is warm and dry. Neurological: Mental Status: She is alert and oriented to person, place, and time. Psychiatric: Mood and Affect: Mood normal. Behavior: Behavior normal. Thought Content: Thought content normal. Judgment: Judgment normal. An electronic signature was used to authenticate this note. ASAF Ramos CNP 04/02/2023 12:59 PM documented in this encounter [facility] 03-21-2023 Telephone encount er Note Name of caller: Yodit Landin Relation to patient: patient Contact phone number: [phone] Appointment scheduled with: Sedrick Shaw Appointment date & time: 04.02.23 11:00 am Reason for visit (are you having any symptoms) : New patient establish care Transportation issues/ concerns: na Special accommodations? ( wheel chair, etc) : na Current medications: levothyroxine 75mg, irbesartan 300 mg, chlorthalidone 25mg, furosemide 20mg, atorvastatin 10mg, metformin 1000mg, omeprazole 40mg Any refills need: no Any chronic conditions the provider should be aware of: diabetic, hemochromatosis [facility] 03-21-2023 Miscellaneous Notes Formattin g of this note might be different from the original. Name of caller: Yodit Landin Relation to patient: patient Contact phone number: [phone] Appointment scheduled with: Sedrick Shwa Appointment date & time: 04.02.23 11:00 am Reason for visit (are you having any symptoms) : New patient establish care Transportation issues/ concerns: na Special accommodations? ( wheel chair, etc) : na Current medications: levothyroxine 75mg, irbesartan 300 mg, chlorthalidone 25mg, furosemide 20mg, atorvastatin 10mg, metformin 1000mg, omeprazole 40mg Any refills need: no Any chronic conditions the provider should be aware of: diabetic, hemochromatosis documented in this encounter [facility] Evaluation + Plan note No data available for this section [facility] documented in this [facility] Diagnosis Routine general medical examination at health care facility- Primary Routine general medical examination at a health care facility Type 2 diabetes mellitus without complication, without long-term current use of insulin (CMS/HCC) (HCC) Primary hypertension Unspecified essential hypertension Hereditary hemochromatosis (HCC) Hereditary hemochromatosis Hypothyroidism, unspecified type Immunization due documented in this encounter [facility] Diagnosis Mass of joint of right wrist- Primary documented in this encounter [facility] Discharge instructions No data available for this section [facility] Progress note No data available for this section [facility] Reason for referral (narrative)* Consultation (Routine) - Pending Review Specialty Diagnoses / Procedures Referred By Moody t Referred To Contact Orthopedic Surgery Diagnoses Mass of joint of right wrist Sedrick Shaw, [employer] PERSON [address] [place] [address] [facility] [address] [place] [address] Referral ID Status Reason Start Date Expiration Date Visits Requested Visits Authorized [id number] Pending Review Specialty Services Required 06/04/2023 06/03/2024 1 1 [facility] Summary Purpose Family History No Family History Records Found Advance Directives No Advanced Directives Records FoundNo Advanced Directives Records Found Additional Source Comments Reason for Visit (unrecogniz ed section and content) Reason Comments New Patient Health Maintenance AWV-needs ddnpzznlzKYYH-kdlahvMshnj-kcwyzuPofsd-declinedPHQ-completedHep R-ycadukasEwoh-xvnexocqQufsy-completed VjosOqbwnz-wlfaxfgvRcyxtl-igbfvsgzVqx-completed [facility] Reason Comments Medicare Annual Wellness Visit Initial Health Maintenance RHT-IwnwtFZUP-cdidkz edColon-completed in [place]([facility] x2 yrs ago)Pneumo-discuss with providerDM foot-pendedDM dental-done a year agoZoster-stated it was completed-[facility] [id number]-zqqdgbeuAYB-qxzpohadXix-yiurgeqvo at [employer] [facility] Reason Comments Cyst Bilateral-but right is the one that is painful Care Teams (unrecognized sec tion and content) Mercury Recoverer Relationship Specialty Start Date End Date Karen Key MD [address] [place] [id number] PCP - General Family Medicine 04/02/23 Mercury Recoverer Relationship Specialty Start Date End Date Karen Key MD [address] [place] [id number] PCP - General Family Medicine 04/02/23 Mercury Recoverer Relationship Specialty Start Date End Date Karen Key MD [address] [facility] [place] [id number] PCP - General Family Medicine 04/02/23 INFORMATION SOURCE (unrecogn ized section and content) DATE CREATED AUTHOR AUTHOR'S [facility] 06/12/2023 [facility] FOR RECORDS PERTAINING TO PATIENTS WHO ARE OR HAVE BEEN ENROLLED IN A CHEMICAL DEPENDENCY/SUBSTANCEABUSE PROGRAM, SOME INFORMATION MAY BE OMITTED. This clinical summary was aggregated from multiple sources. Caution should be exercised in using it in the provision of clinical care. This summary normalizes information from multiple sources, and as a consequence, information in this document may materially change the coding, format and clinical context of patient data. In addition, data may be omitted in some cases. CLINICAL DECISIONS SHOULD BE BASED ON THE PRIMARY CLINICAL RECORDS. [employer] provides no warranty or guarantee of the accuracy or completeness of information in this document.
== END 2023-07-01 21:15 | disposition home or self-care (01) ==
PROVIDERS: Emergency Provider Student in an Organized Health Care Education/Training Program; Visit Provider Student in an Organized Health Care Education/Training Program
DX: A08.4 Viral intestinal infection, unspecified (principal); F17.210 Nicotine dependence, cigarettes, uncomplicated; R42 Dizziness and giddiness
CPT/HCPCS: 80048; 81001; 85025; 99282; J7030

== ENCOUNTER → 2024-02-16 | Outpatient (CLI) | payer MEDICARE, SELFPAY ==
--- NOTE | 2024-02-16 08:23 | MRI_ITS ---
EXAM: MR LUMBAR SPINE WITHOUT INTRAVENOUS CONTRAST CLINICAL INDICATION: Pain IN R HIP, TROUBLE WALKING TECHNIQUE: Multiplanar and multisequence MR images of the lumbar spine without intravenous contrast. COMPARISON: Lumbar spine radiographs, 01/16/[address] abdomen and pelvis, 07/08/2012. FINDINGS: VERTEBRAE: Modic type II endplate signal changes particularly in the lower thoracic and upper lumbar region. No suspicious marrow space signal abnormality. Vertebral body heights are preserved. Normal alignment. No spondylolisthesis. There is preservation of the normal lumbar lordosis. SPINAL CORD: Degenerative changes partially visualized throughout the thoracic and cervical spine, incompletely assessed on localization images. There are disc herniations at T6-T7 and T7-T8 with at least mild mass effect upon the spinal cord and apparent disc herniation at T1-T2. Normal position and signal intensity of the conus medullaris. SOFT TISSUES: No significant abnormality. DISCS/SPINAL CANAL/NEURAL FORAMINA: T12-L1: Disc height loss and disc desiccation. Left central disc herniation superimposed upon a disc bulge and moderate bilateral facet arthrosis. Mild spinal canal stenosis and mild left greater than right neural foraminal narrowing. L1-L2: Disc height loss and disc desiccation. Right central to foraminal disc herniation superimposed upon a disc bulge and moderate bilateral facet arthrosis. Moderate right greater than left neural foraminal narrowing and mild to moderate spinal canal stenosis. L2-L3: Left central to foraminal disc herniation superimposed upon a disc bulge and moderate bilateral facet arthrosis. Moderate spinal canal stenosis, mild right neural foraminal narrowing, and moderate to severe left neural foraminal narrowing with left L2 and traversing L3 nerve root impingement. L3-L4: Disc bulge and moderate bilateral facet arthrosis. Superimposed left foraminal to extraforaminal disc herniation. Mild spinal canal stenosis and mild to moderate left greater than right neural foraminal narrowing. L4-L5: Disc bulge and severe bilateral facet arthrosis. Mild spinal canal stenosis and rzdt-oq-tkdkqtuo bilateral neural foraminal narrowing. L5-S1: Severe bilateral facet arthrosis and very subtle disc bulge. No significant spinal canal stenosis. Mild to moderate bilateral neural foraminal narrowing. MRI/Spine Lumbar (Routine) IMPRESSION: 1. Degenerative changes partially visualized throughout the thoracic and cervical spine, incompletely assessed on localization images. There are disc herniations at T6-T7 and T7-T8 with at least mild mass effect upon the spinal cord and apparent disc herniation at T1-T2. Consider follow-up cervical and thoracic spine MRI. 2. Multilevel degenerative changes resulting in multilevel spinal canal and neural foraminal stenosis. Left L2 left L3 nerve root impingement. Electronically Signed: Jaime Plunkett DO at 22:04 EDT ,
== END | disposition home or self-care (01) ==
LOC: MRI 13:10
PROVIDERS: PCP Family Medicine; Referring Provider Orthopaedic Surgery Orthopaedic Surgery of the Spine; Visit Provider Orthopaedic Surgery Orthopaedic Surgery of the Spine
DX: M43.17 Spondylolisthesis, lumbosacral region (principal)
CPT/HCPCS: 72148

== ENCOUNTER 2024-03-29 11:39 | Observation (INO) | payer MEDICARE, SELFPAY ==
[2024-03-17 11:18] LABS: Absolute Lymphocyte Count 1.45 X10^3/uL (0.83-4.51); Absolute Neutrophil Count 2.5 X10^3/uL (2.0-7.7); Basophil# 0.05 X10^3/uL; Basophil% 1.1 % (0-1); Eosinophils% 6.3 % (0-5); Hemoglobin 10.3 g/dL (12.0-15.0); Lymphocyte # 1.45 X10^3/ul (0.83-4.51); Lymphocyte % 30.7 % (19-41); Mean Corp Hgb Conc 31.2 g/dL (32-36); Mean Corpuscular Hgb 28.5 pg (27.0-32.0); Mean Corpuscular Volume 91.2 fL (81-99); Mean Platelet Vol. 9.8 fl (6.2-12.0); Monocyte# 0.38 X10^3/uL; NRBC Flagged by Analyzer 0 % (0-5); Neutrophil # 2.52 X10^3/uL (2.7-7.7); Neutrophil % 53.3 % (47-70); Platelet Count 159 K/mm3 (150-450); RBC Distribution Width CV 15.6 % (11.6-14.6); RBC Distribution Width SD 51.6 fl (35.1-43.9); Red Blood Count 3.62 M/mm3 (4.2-5.4); White Blood Count 4.7 K/mm3 (4.4-11.0)
[2024-03-17 11:42] LABS: Anion Gap 8 (5-15); BUN 19 mg/dL (7-18); BUN/Creat Ratio 14.7 RATIO (10-20); Calcium,Total 9.3 mg/dL (8.5-10.1); Chloride 104 mmol/L (98-107); Creatinine, Serum 1.29 mg/dL (0.55-1.02); EST Glomerular Filtration Rate 44 mL/min (>60); Est Glom Filt Rate - Afr Amer 53 mL/min (>60); Glucose 179 mg/dL (74-106); Potassium 4.2 mmol/L (3.5-5.1); Sodium Level 137 mmol/L (136-145)
[2024-03-17 12:21] LABS: HIV - WCH Non-Reactive (Nonreactive); Hepatitis B Surface Antibody Reactive; Hepatitis C Antibody Non-Reactive (Nonreactive)
[2024-03-17 20:05] LABS: Magnesium 1.1 mg/dL (1.6-2.6); Thyroid Stim Hormone (TSH) 0.423 uIU/mL (0.358-3.740)
[2024-03-18 10:09] LABS: Hepatitis A AB, Total Negative (Negative)
[2024-03-18 11:44] LABS: Hemoglobin A1c 6.6 % (3.8-5.6)
[2024-03-29] VITALS (12 sets, daily range): BP systolic 127–160; BP diastolic 66–83; PULSE 80–100; RESP 16–18; TEMP 36.1–36.8; O2SAT 94–100; BMI 35.5
[2024-03-29 06:32] LABS: Bedside Glucose 158 mg/dL (74-106)
[2024-03-29] MEDS: Lactated Ringers 1,000 ML 15 ML IV (06:34)
[2024-03-29] MEDS: Magnesium 2 GM for ERAS IV (06:35)
[2024-03-29] MEDS: Acetaminophen 500 MG Tablet 1000 MG PO ×3 (06:37→21:05)
--- NOTE | 2024-03-29 06:42 | PCM.PRE.AN2 ---
ASA Classification* ASA Classification ASA Classification: 2 Assessment & Plan Anesthesia* Anesthesia Assessment Anesthesia Assessment: Discussed sedation and/or anesthesia options, risks, benefits, and alternatives with patient/parents/legal guardian/POA. Questions invited. The patient/parents/legal guardian/POA seems to understand and agrees to proceed with anesthesia plan. Reviewed the physical assessment, medical history, allergy history and patient home medications list prior to surgery/procedure/anesthetic and documented any changes. Performed airway and anesthesia risk assessments. Anesthesia Type Anesthesia Type: General Anesthesia Focused Assessment* Temperature: 98.3 F Pulse Rate: 84 Blood Pressure: 154/66 Respiratory Rate: 16 Pulse Ox: 98 Airway Assessment Mouth opens: >3 cm Mallampati Score: II Focused Labs Anesthesia Preop lab: CBC WBC 4.7 K/mm3 (4.4-11.0) 03/17/24 10:38 RBC 3.62 M/mm3 (4.2-5.4) L 03/17/24 10:38 Hgb 10.3 g/dL (12.0-15.0) L 03/17/24 10:38 Hct 33.0 % (37-47) L 03/17/24 10:38 Plt Count 159 K/mm3 (150-450) 03/17/24 10:38 CHEMISTRY Potassium 4.2 mmol/L (3.5-5.1) 03/17/24 10:38 Sodium 137 mmol/L (136-145) 03/17/24 10:38 Magnesium 1.1 mg/dL (1.6-2.6) L 03/17/24 10:35 BUN 19 mg/dL (7-18) H 03/17/24 10:38 Creatinine 1.29 mg/dL (0.55-1.02) H 03/17/24 10:38 Glucose 179 mg/dL (74-106) H 03/17/24 10:38 POC Glucose 158 mg/dL (74-106) H 03/29/24 06:07 TSH 0.423 uIU/mL (0.358-3.740) 03/17/24 10:35 COAG Pre-Assessment Diagnosis/Proposed Procedure Planned Operative Procedure(s): Minimally invasive Transforaminal Lumbar Interbody Fusion L5-S1 Anesthesia History Anesthesia History - hand endband cutter: Anesthesia History - hand endband cutter Hx Hospitalization No 03/15/24 14:30 Any Problems With Anesthesia No 03/15/24 14:30 Cholinesterase deficiency No 03/15/24 14:30 You/Your Family Experience No 03/15/24 14:30 fever (hyperthermia) with Relationship Recent Exposure to Contagious No 03/29/24 06:30 Disease Does patient have nerve No 03/15/24 14:30 stimulator Patient instructed to have device shut off --Does patient have Pacemaker No 03/29/24 06:30 or ICD? When Was Last Pacemaker Check QUESTION #4 FULL TEXT: You/Your Family Experience fever (hyperthermia) with Anesthesia Last Oral Intake Last Oral intake: Last Oral Intake NPO since 05:30 03/29/24 06:30 Meds taken in AM with sips of Yes 03/29/24 06:30 water? Meds patient instructed to ibersartan, levothyroxine, 03/29/24 06:30 take am of surgery omeprazole PONV PONV - hand endband cutter: PONV - hand endband cutter Female Yes 03/15/24 14:30 HX of Motion Sickness Yes 03/15/24 14:30 HX of N/V After Surgery No 03/15/24 14:30 Non-Smoker Yes 03/15/24 14:30 Duration of Surgery greater Yes 03/15/24 14:30 than 60 minutes Number of Risk Factors 4 03/15/24 14:30 PONV Score Severe Risk 03/15/24 14:30 Height & Weight Height & Weight: Anesthesia: Height & Weight Height 5 ft 4 in 03/29/24 06:30 Weight: 94 kg 03/29/24 06:30 Body Mass Index (BMI) 35.5 03/29/24 06:30 Respiratory Assessment Respiratory Assessment - hand endband cutter: Respiratory Tract Infection Hx - hand endband cutter Hx Respiratory Tract Infection No 03/15/24 14:30 STOP Sleep Apnea STOP Sleep Apnea - hand endband cutter: STOP Sleep Apnea - hand endband cutter Hx Hypertension Yes: CONTROLLED ON MED 03/15/24 14:30 Hx Sleep Apnea No 03/15/24 14:30 CPAP BIPAP Do you snore loudly (louder No 03/15/24 14:30 than talking or can be heard Do you often feel tired/ No 03/15/24 14:30 fatigued/ sleepy during daytime? Has anyone observed you stop No 03/15/24 14:30 breathing during sleep? STOP Results Negative 03/15/24 14:30 QUESTION #5 FULL TEXT : Do you snore loudly (louder than talking or can be heard through closed doors)? 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 Specify any problems Hx of Preganancy in last 3 No 03/15/24 14:30 Months Nurse Filling Out Transfusion VCHRISTIN 03/15/24 14:30 & Questions: Date: 03/15/24 03/15/24 14:30 Time: 14:34 03/15/24 14:30 Patient unable to answer at this time (ie. confused, unrespo /Reproduction History /Reproductive History - hand endband cutter: /Reproductive Hx- hand endband cutter Hx Now Gestational Age (in weeks): EDC: Hx Hx Para Hx Section SAB Active Medications Active Medications: Current Medications Generic Name Dose Route Start Last Admin Trade Name Freq PRN Reason Stop Dose Admin Acetaminophen 1,000 mg 03/29/24 07:30 03/29/24 06:37 Acetaminophen 500 Mg Tablet PO 03/29/24 07:31 1,000 mg X1 ONE Administration Cefazolin Sodium 2 gm/ N/A 20 mls @ 400 mls/hr 03/29/24 07:30 IV 03/29/24 07:32 PREOP ONE Tranexamic Acid 1,000 mg/ 110 mls @ 660 mls/hr 03/29/24 07:30 Sodium Chloride IV 03/29/24 07:39 X1 ONE Tranexamic Acid 1,000 mg/ 110 mls @ 660 mls/hr 03/29/24 08:30 Sodium Chloride IV 03/29/24 08:39 X1 ONE Magnesium Sulfate 2 gm/ 104 mls @ 208 mls/hr 03/29/24 07:30 03/29/24 06:35 Dextrose IV 03/29/24 07:59 208 mls/hr X1 ONE Administration Lactated Ringer's 1,000 mls @ 15 mls/hr 03/29/24 06:00 03/29/24 06:34 IV 04/03/24 19:19 15 mls/hr .Q48H RAMIREZ Administration Protocol Insulin Human Lispro 1 - 6 unit 03/29/24 07:30 Insulin Lispro 100 Unit/Ml Insuln.Pen SC 03/29/24 13:30 Q4H PRN PRN BG>/= 180, SEE PROTOCOL Protocol PFSH Medical History Wears partial dentures Wears contact lenses Wears glasses Post-menopausal Thyroid disease Diabetes Arthritis High cholesterol Hemochromatosis Injury of head and neck Gastric reflux Former smoker History of pain when walking Hypertension History of echocardiogram Dehydration Nausea vomiting and diarrhea Home Medications ?Medication ?Instructions ?Recorded ?Last Taken ?Type atorvastatin 10 mg tablet 10 mg PO DAILY 01/16/24 03/28/24 History chlorthalidone 25 mg tablet 25 mg PO DAILY 01/16/24 03/28/24 History furosemide 20 mg tablet 20 mg PO DAILY 01/16/24 03/28/24 History indomethacin 50 mg capsule 50 mg PO 1700 01/16/24 03/28/24 History irbesartan 300 mg tablet 300 mg PO DAILY 01/16/24 03/29/24 History levothyroxine 75 mcg capsule 150 mcg PO DAILY 01/16/24 03/29/24 History metformin 1,000 mg tablet 1,000 mg PO .QAM 01/16/24 03/28/24 History omega 3-zyf-pah-fish oil 1,200 mg 1 cap PO DAILY 01/16/24 03/28/24 History (144 mg-216 mg) capsule (Fish Oil) omeprazole 40 mg capsule,delayed 40 mg PO QDAY 01/16/24 03/29/24 History release vitamin E (dl, acetate) 180 mg 180 mg PO DAILY 01/16/24 03/28/24 History (400 unit) capsule acetaminophen 500 mg capsule 1,000 mg PO Q6H PRN pain 03/15/24 03/28/24 History digestive enzymes 1 tab PO TID 03/15/24 03/28/24 History ergocalciferol (vitamin D2) 1,250 1,250 mcg PO QWEEK 03/15/24 03/27/24 History mcg (50,000 unit) capsule (Vitamin D2) metformin 500 mg tablet 500 mg PO .1500, 2100 03/15/24 03/28/24 History phytosterol 400 mg tablet 400 mg PO DAILY 03/15/24 03/28/24 History vit A 750 mcg-vit C 150 mg-D3 1 cap PO TID 03/15/24 03/28/24 History 31.25 cmi-hvhq-fbjvqsnhy-quercet capsule (Immune Essentials Daily) Allergy/AdvReac Type Severity Reaction Status Date / Time codeine AdvReac Intermediate Vomiting Verified 03/29/24 06:26 sulfamethoxazole (From AdvReac Intermediate Vomiting Verified 03/29/24 06:26 Bactrim) trimethoprim (From Bactrim) AdvReac Intermediate Vomiting Verified 03/29/24 06:26 Surgical History History of surgery on right wrist Hx of repair of right rotator cuff History of 2 sections Hx of ovarian cystectomy Hx of hysterectomy Hx of tonsillectomy Social History Smoking Status: Former smoker Review of Systems (Anesthesia) ROS Narrative System reviewed and no additional complaints, except as documented.
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
[2024-03-29] MEDS: Cefazolin 2 GM in Syringe IV ×2 (07:47→16:41)
[2024-03-29] MEDS: TXA 1000mg in NS100 100ml (IVPB at Incision) 660 MG IV (08:00)
--- NOTE | 2024-03-29 08:00 | RAD_ITS ---
STUDY: X-RAY - LUMBAR SPINE REASON FOR EXAM: Female, 68 years old. ERAS, L5-S1 FUSION TECHNIQUE: 10 C-arm view(s) of the lumbar spine were obtained. 250 seconds fluoroscopy time COMPARISON: None FINDINGS: These intraoperative images show discectomies, disc spacer placement, and posterior fusion with hardware between L5 and S1. Correlate with procedure note. Electronically Signed: Aleksandar Garcia MD at 23:54 EST , RAD/Lumbar Spine 2 or 3 Views IMPRESSION: undefined
[2024-03-29] MEDS: TXA 1000mg in NS100 100ml (IVPB at Closure) 660 MG IV (11:00)
[2024-03-29] MEDS: Ropivacaine 0.5% 30 ML Vial (11:07)
--- NOTE | 2024-03-29 11:24 | PCM.OPRPT ---
Operative Report (Standard) Operative Information Surgery/Procedure Performed: L5-S1 MIS transforaminal lumbar interbody fusion Surgeon: Arnold Morton Date of Procedure: 03/29/24 Procedure Start Time: 08:19 Procedure Stop Time: 11:30 Pre-Operative Diagnosis: L5-S1 spondylolisthesis with stenosis Post-Operative Diagnosis: Same Select all DRAINS/GRAFTS/IMPLANTS that apply: Graft Graft details: Allograft cancellous bone chips, morselized autograft from lamina and Implanted device Implanted device details: DePuy Viper prime pedicle screw instrumentation Type of Anesthesia: General Estimated Blood Loss: 50 cc Specimen collected: No Description of surgery: Preoperative diagnosis: L5-disc degeneration, spondylolisthesis with foraminal stenosis Postoperative diagnosis: Same Name of procedure: L5-S1 transforaminal lumbar interbody fusion (TLIF), minimally invasive left side approach, percutaneous pedicle screw instrumentation. . L5-S1 posterior spinal fusion and interbody fusion 20240 ? L5-S1 posterior pedicle screw instrumentation 33204 . L5-S1 insertion of cage [id number] . Local autograft . Cancellous allograft with DBX Attending Surgeon: Dr. Arnold Morton Estimated blood loss: 50 mL Anesthesia: GA Complications: None Implants: DePuy Synthes X-PAC TLIF cage, Viper prime screws Indications: Patient is a 68-year-old lady who has had a history of low back pain that radiates into left worse than right lower extremity. X-rays and MRI revealed L5-S1 disc degeneration, spondylolisthesis with bilateral left worse than right foraminal stenosis. Patient was explained all options of treatment which included continued nonoperative treatment measures like rest physical therapy, epidural steroidal injections. After a prolonged period of of nonoperative treatment, patient elected to undergo surgical decompression & fusion since the symptoms severely affected her quality of life. All risks and benefits associated with the procedure were explained to the patient. The risks include but are not limited to infection, bleeding, injury to nerves and vessels, persistent paresthesia, persistent pain, dural tear, need for further procedures, adjacent segment degeneration, pseudoarthrosis, hardware failure, etc. Procedure: The patient was identified in the preoperative holding suite using unique patient identifiers. Skin was marked, consent was reviewed, and all questions were answered. The patient was then brought back to the operative room. A surgical timeout was performed to make sure correct procedure was being done on the correct patient and all operative room staff were on the same page. General endotracheal anesthesia was then given to the patient. Neuromonitoring leads were applied. The patient was then turned prone onto a Arie table. The back was prepped and draped in usual fashion. IV antibiotic was given as preoperative antibiotic. A final timeout was then again done just before starting the procedure. C-arm AP view was then taken. C-arm was positioned in a way that L5 was centralized and superior endplate of L5 and was parallel to the beam. Spinous process was centered between the pedicles. Midline was marked with skin marker and lateral borders of the pedicles were also marked. Skin marker was also utilized to black transversely across the middle of the pedicles at L5. 2 vertical incisions about 1 inch Extending below this line were taken about 1/2 inch lateral to the pedicle line. The fascia was also incised vertically approximately the same length. Finger dissection was utilized to palpate the superior articular process and facet joint of L5-S1 on the left side. Sequential tubes were docked on the Left facet joint and 70 mm length and 21 mm diameter tubular retractor was then placed and was attached to the arm attached to the OR table. Muscle tissue was removed with pituitaries and hemostasis was achieved with Bovie. Left inferior articular process of L5 and superior articular process of S1 were exposed with Bovie. Osteotome was utilized to remove a portion of the inferior articular process to expose the articular surface of S1. Some of this resected bone was used as autograft. [place] was then utilized to remove the rest of the inferior articular process and part of the lamina of L5. Superior articular process of S1 was resected with the help of a bur such that the cut was flush with the superior border of S1 pedicle. The traversing nerve root and dura were carefully retracted to expose the disc. Hemostasis was achieved with bipolar cautery. Osteotome was utilized to remove the lip of the S1 superior endplate. Long knife was utilized to make annulotomy. Blunt spreaders were utilized to enter the disc space under C-arm visualization. Pituitary was used to remove disc material. Curettes of various sizes and angulations were utilized to remove as much of the disc material as possible. End plates were curetted to remove all cartilage. Angled curettes were used to remove disc material from the other side underneath the central annulus. [email or web address] X-PAC trials were inserted into position and checked under C- arm lateral view. The disc space was then filled with cancellous bone chips mixed with DBX which were then impacted with the trials. An 12 x 25 mm lordotic tall X-PAC cage filled with bone graft was then inserted into the disc space under x-ray control. Care was taken to make sure the cage was inserted deeper to the posterior longitudinal ligament. The expandable cage was then expanded to up to approximately 14 mm anterior height with approximately 15 degrees lordosis. The cage was found to be well fixed and not easily removable. AP and lateral views showed good positioning of the cage. Depuy Viper Prime screw tower was docked onto the transverse processes at L5. This was then slowly moved medially to reach the superior articular process of L5. This was then confirmed on C-arm and then a mallet was utilized to drive the trocar and screw into the pedicle going up to the medial wall of the pedicle on AP view. This was performed both sides. C-arm lateral view confirmed both trocars to be inside vertebral body. The screws were advanced. Similar procedure was done at S1 both sides. Cannulated pedicle screws (Depuy Viper) sizes were 7 x 45 mm bilaterally at L5 and S1 levels bilaterally. The lateral view showed good positioning of the screws and cage. 40 mm precontoured titanium 5.5 mm lordotic isaias on both sides was then passed through the screw extensions and reduced down to the screws with the help of Depuy Viper Prime instrumentation system. AP and lateral views of the C-arm showed good positioning of the screws and cage. Final tightening with the torque screwdriver was then completed. Emma was utilized to decorticate the right L5-S1 facet joint and bone graft was placed over this. Hemostasis was achieved with the help of Bovie and FloSeal. Closure was done in layers with 0 Vicryls for the fascia, 2-0 Vicryls for the subcutaneous tissue, and Monocryl for the skin. Dressings were applied covered with Tegaderm. The patient was then turned supine onto a hospital bed. The patient was extubated and taken to PACU in stable condition. The patient tolerated the procedure well and no complications occurred. Depuy X-PAC cage & Viper Prime minimally invasive pedicle screw instrumentation system was utilized in this case. No dural tear was identified in this case. Multimodal neuro monitoring was utilized. All potentials stayed at baseline throughout the procedure. I was present for the entirety of the case and performed the surgery myself. Surgical Findings: See operative note Hoop Punch And Coiler Operator Helper cardiology nurse: Yes Lead Sales Consultant: Enriqueta Houston Tasks completed by graduate research assistant: Closing, Implanting device, Hemostasis: Electrocautery and Retracting Complications Complications: No Admit VTE Documentation VTE Mechan Device Prophylaxis: SCD's Procedures Musculoskeletal [id number]: Other Procedure See Report
--- NOTE | 2024-03-29 11:50 | PCM.POST.ANE ---
Anesthesia: Postop Eval I Current Vital Signs Temperature: 97 F Pulse Rate: 80 Blood Pressure: 133/76 Respiratory Rate: 16 Pulse Ox: 100 Oxygen Delivery Method: Simple Mask Oxygen Flow Rate (L/min): 6 Assessment Airway patent: Yes Spontaneous unlabored respirations: Yes Mental status: Asleep nausea: No Vomiting: No Anesthesia Complication: No Fluid Hydration Crystalloid volume administer (ml): 1,400 Total IV fluid infused: 1,400 Progress Note Anesthesia document: Postop Eval 1 completed: Yes
[2024-03-29] MEDS: Methocarbamol 500 MG Tablet 1000 MG PO ×3 (14:06→21:05)
--- NOTE | 2024-03-29 15:14 | POSTOPAN2_ITS ---
Anesthesia Postop Eval I Sum Postop Eval Completion status Anesthesia document: Postop Eval 1 completed: Yes Anesthesia Postop Eval I Summary Anesthesia Postop Eval I Summary: Anesthesia Postop Eval I: Assessment Summary Airway patent Yes 03/29/24 11:51 OIL [email or web address] Spontaneous unlabored Yes 03/29/24 11:51 OIL [email or web address].[email or web address] respirations Mental status Asleep 03/29/24 11:51 OIL [email or web address].[email or web address] nausea No 03/29/24 11:51 OIL DISPENSER.[email or web address] Vomiting No 03/29/24 11:51 OIL [email or web address].[email or web address] Anesthesia Postop Eval I: Fluid Summary Crystalloid volume administer 1,400 03/29/24 11:51 OIL [email or web address].DEBORAH (ml) Colloids volume administered ( ml) Blood Product volume administered (ml) Total IV fluid infused 1,400 03/29/24 11:51 OIL [email or web address].DEBORAH Anesthesia Postop Eval I: Summary Notes Anesthesia Complication No 03/29/24 11:51 OIL DISPENSERCASANDRA Anesthesia Complication Comment: Post-operative progress note Anesthesia: Postop Eval II Evaluation Mental status: Awake and Calm Pain Level: 2 nausea: No Vomiting: No Complications Anesthesia Complication: No
--- NOTE | 2024-03-29 15:14 | PCM.POSTANE2 ---
Anesthesia Postop Eval I Sum Postop Eval Completion status Anesthesia document: Postop Eval 1 completed: Yes Anesthesia Postop Eval I Summary Anesthesia Postop Eval I Summary: Anesthesia Postop Eval I: Assessment Summary Airway patent Yes 03/29/24 11:51 FEED RESEARCH AIDE.[email or web address] Spontaneous unlabored Yes 03/29/24 11:51 FEED RESEARCH AIDE.[email or web address] respirations Mental status Asleep 03/29/24 11:51 FEED RESEARCH AIDE.[email or web address] nausea No 03/29/24 11:51 FEED RESEARCH AIDE.[email or web address] Vomiting No 03/29/24 11:51 FEED RESEARCH AIDE.[email or web address] Anesthesia Postop Eval I: Fluid Summary Crystalloid volume administer 1,400 03/29/24 11:51 FEED RESEARCH AIDE.DEBORAH (ml) Colloids volume administered ( ml) Blood Product volume administered (ml) Total IV fluid infused 1,400 03/29/24 11:51 FEED RESEARCH AIDE.DEBORAH Anesthesia Postop Eval I: Summary Notes Anesthesia Complication No 03/29/24 11:51 FEED RESEARCH AIDECASANDRA Anesthesia Complication Comment: Post-operative progress note Anesthesia: Postop Eval II Evaluation Mental status: Awake and Calm Pain Level: 2 nausea: No Vomiting: No Complications Anesthesia Complication: No
[2024-03-29] MEDS: CLARIFY ORDER 1 EACH NOTE (16:30)
[2024-03-29] MEDS: metFORMIN HCl 500 MG Tablet PO (16:35)
[2024-03-29] MEDS: oxyCODONE 5 MG Tablet PO ×2 (16:41→21:04)
[2024-03-29] MEDS: 0.9% Saline Lock 10 ML Syringe IV (16:42)
--- NOTE | 2024-03-29 18:30 | PN.HOSP_ITS ---
Reason for Visit Reason for Visit: Diagnoses Encounter for other preprocedural examination (03/29/24) Subjective Subjective 68-year-old female history of hypothyroidism, diabetes, GERD, hypertension presented to [facility] 03/29/24 for minimally invasive transforaminal lumbar interbody fusion of L5-S1 w/ Dr. Morton.? hospitalist consulted for postop medical management.? Patient evaluated at bedside. Patient in the process of getting updated to go to the bathroom. She endorses no new or acute complaints at this time Objective Data Objective Data Vital Signs: Vital Signs Temp Pulse Resp BP Pulse Ox O2 Del Method O2 Flow Rate 97.9 F 99 18 145/83 H 95 Room Air 3 03/29/24 15:26 03/29/24 15:26 03/29/24 15:26 03/29/24 15:26 03/29/24 15:26 03/29/24 15:26 03/29/24 13:51 Oxygen Flow Rate (L/min) 3 Oxygen Delivery Method Room Air Weight: 94 kg Body Mass Index (BMI) 35.5 Intake & Output: Intake and Output for Last 24 Hours 03/27/24 03/28/24 03/29/24 23:59 22:59 23:59 Intake Total 584 / 584 Output Total 1120 / 1120 Balance -536 / -536 Lab / Micro Data 03/17/24 10:38 03/17/24 10:38 Labs: Laboratory Results - last 24 hr 03/29/24 06:07: POC Glucose 158 H Micro: Microbiology 03/17/24 10:38 Swab (Method) Nasal Screen MRSA/MSSA - Final Physical Exam Narrative General: Alert, no apparent distress HEENT: Atraumatic Eyes: extraocular movements grossly intact Neck: Supple Respiratory: normal respiratory effort Extremities: Moving all extremities Neuro: No overt focal neurological deficits Psych: Cooperative Assessment & Plan Assessment/Plan (1) Spondylolisthesis, lumbar region: PLAN: Plan #Hypertension - Resume home medications now that patient is postop #Hypothyroidism -Continue Synthroid #Type 2 diabetes mellitus -Glucose checks and sliding scale insulin -Hold metformin given pt POD 0 #GERD -Continue PPI #L5-S1 spondylolisthesis with stenosis -S/p L5-S1 MIS transforaminal lumbar interbody fusion w/ Dr. Morton 03/29 -Management per primary #DVT ppx: at the discretion of primary team Emy Cho MD
[2024-03-29] MEDS: Senna/Docusate Sodium 1 Tablet 2 TABLET PO (21:05)
[2024-03-29 21:38] LABS: Bedside Glucose 179 mg/dL (74-106)
[2024-03-30] MEDS: 0.9% Saline Lock 10 ML Syringe IV ×2 (01:22→06:40)
[2024-03-30] MEDS: Cefazolin 2 GM in Syringe IV (01:22)
[2024-03-30 01:25] VITALS: BP 129/52; PULSE 99; RESP 18; TEMP 36.8; O2SAT 93
[2024-03-30] MEDS: oxyCODONE 5 MG Tablet PO ×3 (04:29→13:06)
[2024-03-30] MEDS: Acetaminophen 500 MG Tablet 1000 MG PO ×2 (06:31→13:06)
[2024-03-30] MEDS: Levothyroxine 150 MCG Tablet PO (06:31)
[2024-03-30] MEDS: Ondansetron 4 MG/2 ML Vial IV (06:40)
[2024-03-30 06:46] VITALS: BP 140/93; PULSE 94; RESP 18; TEMP 36.9; O2SAT 93
[2024-03-30 07:06] LABS: Bedside Glucose 116 mg/dL (74-106)
--- NOTE | 2024-03-30 07:26 | CPS ---
SMI and Pep held. Pt has swelling and mouth sores. Nurse was in room and is aware of swelling.
[2024-03-30 07:54] LABS: Hematocrit 27.8 % (37-47); Hemoglobin 8.6 g/dL (12.0-15.0); Mean Corp Hgb Conc 30.9 g/dL (32-36); Mean Corpuscular Hgb 28.5 pg (27.0-32.0); Mean Corpuscular Volume 92.1 fL (81-99); Mean Platelet Vol. 9.5 fl (6.2-12.0); Platelet Count 138 K/mm3 (150-450); RBC Distribution Width SD 52.8 fl (35.1-43.9); Red Blood Count 3.02 M/mm3 (4.2-5.4); White Blood Count 6.9 K/mm3 (4.4-11.0)
[2024-03-30] MEDS: Losartan Potassium 100 MG Tablet PO (08:10)
[2024-03-30] MEDS: Senna/Docusate Sodium 1 Tablet 2 TABLET PO (08:10)
[2024-03-30] MEDS: Methocarbamol 500 MG Tablet 1000 MG PO ×2 (08:11→13:05)
[2024-03-30] MEDS: Pantoprazole Sodium 40 MG Tablet PO (08:11)
[2024-03-30] MEDS: Meloxicam 15 MG Tablet PO (08:11)
[2024-03-30] MEDS: Furosemide 20 MG Tablet PO (08:11)
[2024-03-30] MEDS: Vitamin E 400 UNITS Capsule PO (08:12)
[2024-03-30] MEDS: Chlorthalidone 50 MG Tablet 25 MG PO (08:12)
[2024-03-30] MEDS: Atorvastatin Calcium 10 MG Tablet PO (08:13)
[2024-03-30] MEDS: Ensure Surgery 237 ML LIQUID PO (08:20)
[2024-03-30 08:28] LABS: Anion Gap 7 (5-15); BUN 18 mg/dL (7-18); BUN/Creat Ratio 15.1 RATIO (10-20); Calcium,Total 8.5 mg/dL (8.5-10.1); Chloride 102 mmol/L (98-107); Creatinine, Serum 1.19 mg/dL (0.55-1.02); EST Glomerular Filtration Rate 48 mL/min (>60); Est Glom Filt Rate - Afr Amer 58 mL/min (>60); Glucose 126 mg/dL (74-106); Potassium 4.5 mmol/L (3.5-5.1); Sodium Level 137 mmol/L (136-145)
[2024-03-30 08:42] VITALS: BP 127/67; PULSE 91; RESP 16; TEMP 36.7; O2SAT 92
--- NOTE | 2024-03-30 09:40 | RAD_ITS ---
STUDY: X-RAY - LUMBAR SPINE REASON FOR EXAM: Female, 68 years old. s/p lumbar fusion -- please do upright AP and LAT TECHNIQUE: 2 view(s) of the lumbar spine were obtained. COMPARISON: 01/16/2024 FINDINGS: Normal lumbar lordosis. Mild dextroscoliosis centered at L3. Status post discectomy, interbody fusion, transpedicular fixation at L5/S1 with anatomic alignment. There is multilevel endplate spondylosis of the lumbar vertebrae. There is multi-level degenerative disc disease with multi-level disc space narrowing. The soft tissue structures are unremarkable. RAD/Lumbar Spine 2 or 3 Views IMPRESSION: Interval discectomy, interbody fusion, transpedicular fixation at L5/S1 with anatomic alignment. Mild dextroscoliosis with diffuse degenerative disc disease. Electronically Signed: Justin Monzon MD at 10:33 EST ,
--- NOTE | 2024-03-30 11:00 | CASEMGMT ---
GIANCARLO HENRIQUEZ Assessment: Face to Face with pt for initial transition planning/care coordination assessment. GIANCARLO HENRIQUEZ introduced self and role at [facility], pt voices understanding and consents to assessment. Pt is A&O x4 and answers all questions appropriately at this time. Pt lying in bed in no distress. Care providers, pharmacy, and demographics verified/updated. Strata:1 Admitting Dx: Minimally invasive Transforaminal lumbar interbody. PCP: Ina Specialists: Rolly Morton. Preferred Pharmacy: [facility] pharmacy Insurance: [employer] [facility] Prescription Benefit: yes LNOK: DIL, Christiana; Son, Shon. Living Arrangements: Pt lives alone in a 2 story home with 3 steps to enter. ADLs: Pt I with ADLs and IADLs. Transportation: Pt drives self and denies concerns with transportation. DME: Handrails, cane, glucometer and supplies. HHC/SNF: Denies Hx of. Pt states no concerns with going home at time of dc. Pt would like a FWW, notified GIANCARLO HENRIQUEZ on floor. Provided pt with list of local DME providers, pt chose [facility] as provider of choice. Pt states has OP PT scheduled at [facility]. Does not remember start date. Pt states no further concerns/needs. CM to follow. Advised pt to ask CM if any further question/concerns/needs arise, voices understanding. Pt Goal: Home Plan: Home with DME and OP PT. Vernon MONDRAGON CM
--- NOTE | 2024-03-30 11:07 | PCM.PN.ORT ---
Subjective Subjective Seen with Dr. Morton. POD #1 L5-S1 TLIF Patient is doing well with her pain well managed. She has walked with PT and is okay to discharge home from their end. Patient does report a swollen and sore lip from the prone pillow. Her hgb was 8.6 this morning. A repeat hgb is recommended. She has tolerated a solid meal and has voided. Objective Data Objective Data Vital Signs: Vital Signs Temp Pulse Resp BP Pulse Ox O2 Del Method O2 Flow Rate 98.1 F 91 16 127/67 H 92 Room Air 3 03/30/24 08:42 03/30/24 08:42 03/30/24 08:42 03/30/24 08:42 03/30/24 08:42 03/30/24 08:45 03/29/24 13:51 Oxygen Flow Rate (L/min) 3 Oxygen Delivery Method Room Air Weight: 207 lb 3.752 oz Body Mass Index (BMI) 35.5 Intake & Output: Intake and Output for Last 24 Hours 03/28/24 03/29/24 03/30/24 22:59 23:59 23:59 Intake Total 584 / 584 1233.25 / 1233.25 Output Total 1120 / 1120 Balance -536 / -536 1233.25 / 1233.25 Lab / Micro Data 03/30/24 07:32 03/30/24 07:32 Labs: Laboratory Results - last 24 hr 03/29/24 21:01: POC Glucose 179 H 03/30/24 06:40: POC Glucose 116 H 03/30/24 07:32: WBC 6.9, RBC 3.02 L, Hgb 8.6 L, Hct 27.8 L, MCV 92.1, MCH 28.5, MCHC 30.9 L, RDW Std Deviation 52.8 H, RDW Coeff of Christina 16.0 H, Plt Count 138 L, MPV 9.5, Sodium 137, Potassium 4.5, Chloride 102, Carbon Dioxide 28.0, Anion Gap 7, BUN 18, Creatinine 1.19 H, Estim Creat Clear Calc 49.60, Est GFR (MDRD) Af Amer 58 L, Est GFR (MDRD) Non-Af 48 L, BUN/Creatinine Ratio 15.1, Glucose 126 H, Calcium 8.5 Micro: Microbiology 03/17/24 10:38 Swab (Method) Nasal Screen MRSA/MSSA - Final Radiography Diagnostic Testing: Radiology Impression Lumbar Spine X-Ray 03/29/24 08:00 IMPRESSION: undefined Physical Exam Narrative Neurological exam of the lower extremities shows 5x5 power. Normal sensations across all dermatomes. Tegaderm and gauze intact over paramedian incisions. Patient with a swollen upper lip from the prone pillow during surgery. Const alert, oriented x3 and no apparent distress Assessment & Plan Assessment/Plan (1) S/P lumbar fusion: PLAN: Plan Postop day 1 TLIF. OT/PT cleared. Will be discharged home with a walker. X-rays obtained today look good. Pain has been well-managed with current regimen. Patient to be discharged today. Home medications include oxycodone, Robaxin, acetaminophen, senna. Patient lives alone but she does say that she has some friends who could come around to help out as needed. Follow-up in clinic in 2 weeks.
[2024-03-30 11:12] VITALS: BP 143/66; PULSE 96; RESP 16; TEMP 36.8; O2SAT 92
--- NOTE | 2024-03-30 11:23 | CPS ---
SMI and Pep attempted, pt unavailable, at bedside
[2024-03-30 11:26] LABS: Bedside Glucose 167 mg/dL (74-106)
--- NOTE | 2024-03-30 11:45 | CASEMGMT ---
[place] [facility] [facility].
[2024-03-30 13:29] LABS: Hemoglobin 9.6 g/dL (12.0-15.0)
--- NOTE | 2024-03-30 14:19 | PHA.DC_ITS ---
Pharmacy [facility] has performed discharge medication reconciliation and counseling for this patient. Patient requested meds to beds, this [facility] called retail and requested delivery. 1. ACETAMINOPHEN 500MG PO Q6 2. METHOCARBAMOL 750MG PO TID PRN MUSCLE SPASMS 3. OXYCODONE 2.5-5MG PO Q6H PRN PAIN 4. SENNA/DOCUSATE 2T PO BID PRN CONSTIPATION The patient's discharge medication list was reviewed for discrepancies and discrepancies were resolved. The patient was counseled on the following discharge medications and changes in medications for homegoing were reviewed. The Reason for Use, instructions for use, and potential side effects were reviewed for all new medications. The patient's questions regarding all of their medications were answered. The patient was able to verbally demonstrate an understanding of their discharge medications. Patient counseled by pharmacy messengerEbenezer. Medications at Discharge Home Medications atorvastatin 10 mg tablet 10 mg PO DAILY 01/16/24 chlorthalidone 25 mg tablet 25 mg PO DAILY 01/16/24 furosemide 20 mg tablet 20 mg PO DAILY 01/16/24 indomethacin 50 mg capsule 50 mg PO 1700 01/16/24 irbesartan 300 mg tablet 300 mg PO DAILY 01/16/24 levothyroxine 75 mcg capsule 150 mcg PO DAILY 01/16/24 metformin 1,000 mg tablet 1,000 mg PO .QAM 01/16/24 omega 7-kup-oer-fish oil 1,200 mg (144 mg-216 mg) capsule (Fish Oil) 1 cap PO DAILY 01/16/24 omeprazole 40 mg capsule,delayed release 40 mg PO QDAY 01/16/24 vitamin E (dl, acetate) 180 mg (400 unit) capsule 180 mg PO DAILY 01/16/24 digestive enzymes 1 tab PO TID 03/15/24 ergocalciferol (vitamin D2) 1,250 mcg (50,000 unit) capsule (Vitamin D2) 1,250 mcg PO QWEEK 03/15/24 metformin 500 mg tablet 500 mg PO .1500, 2100 03/15/24 phytosterol 400 mg tablet 400 mg PO DAILY 03/15/24 vit A 750 mcg-vit C 150 mg-D3 31.25 oui-cmpo-kwzkaksjv-quercet capsule (Immune Essentials Daily) 1 cap PO TID 03/15/24 acetaminophen 500 mg tablet 500 mg PO Q6H #30 tabs 03/30/24 methocarbamol 500 mg tablet 750 mg (1.5 x 500 mg) PO TID PRN pain/spasms #30 tabs 03/30/24 oxycodone 5 mg tablet 2.5 - 5 mg (0.5 - 1 x 5 mg) PO Q6H PRN pain 7 days #28 tabs 03/30/24 sennosides 8.6 mg-docusate sodium 50 mg tablet (Stimulant Laxative Plus) 2 tab PO BID PRN constipation #30 tabs 03/30/24
--- NOTE | 2024-03-30 14:50 | PN.HOSP_ITS ---
Reason for Visit Reason for Visit: Low back pain secondary to lumbar stenosis Subjective Subjective Patient states she is having minimal pain. Doing okay. Unclear if she is going home. No significant complaints at this time. I did discuss with her if she had a fairly decent drop in her hemoglobin we would recheck lab this afternoon and if stable from a medical standpoint I was okay with her going home. Objective Data Objective Data Vital Signs: Vital Signs Temp Pulse Resp BP Pulse Ox O2 Del Method O2 Flow Rate 98.3 F 96 16 143/66 H 92 Room Air 3 03/30/24 11:12 03/30/24 11:12 03/30/24 11:12 03/30/24 11:12 03/30/24 11:12 03/30/24 11:12 03/29/24 13:51 Oxygen Flow Rate (L/min) 3 Oxygen Delivery Method Room Air Weight: 94 kg Body Mass Index (BMI) 35.5 Intake & Output: Intake and Output for Last 24 Hours 03/28/24 03/29/24 03/30/24 22:59 23:59 23:59 Intake Total 584 / 584 1583.25 / 1583.25 Output Total 1120 / 1120 Balance -536 / -536 1583.25 / 1583.25 Lab / Micro Data 03/30/24 13:14 03/30/24 07:32 Labs: Laboratory Results - last 24 hr 03/29/24 21:01: POC Glucose 179 H 03/30/24 06:40: POC Glucose 116 H 03/30/24 07:32: WBC 6.9, RBC 3.02 L, Hgb 8.6 L, Hct 27.8 L, MCV 92.1, MCH 28.5, MCHC 30.9 L, RDW Std Deviation 52.8 H, RDW Coeff of Christina 16.0 H, Plt Count 138 L, MPV 9.5, Sodium 137, Potassium 4.5, Chloride 102, Carbon Dioxide 28.0, Anion Gap 7, BUN 18, Creatinine 1.19 H, Estim Creat Clear Calc 49.60, Est GFR (MDRD) Af Amer 58 L, Est GFR (MDRD) Non-Af 48 L, BUN/Creatinine Ratio 15.1, Glucose 126 H, Calcium 8.5 03/30/24 11:07: POC Glucose 167 H 03/30/24 13:14: Hgb 9.6 L Micro: Microbiology 03/17/24 10:38 Swab (Method) Nasal Screen MRSA/MSSA - Final Radiography Diagnostic Testing: Radiology Impression Lumbar Spine X-Ray 03/29/24 08:00 IMPRESSION: undefined Physical Exam Const alert, oriented x3, no apparent distress, healthy appearing and well nourished Constitutional Narrative: Obese, upper middle-aged, white female, sitting up in a chair at the bedside, appears comfortable, nontoxic HEENT head/scalp atraumatic and moist oral mucous membranes Head and Scalp: normocephalic Neuro oriented x3 and moves all extremities Speech: speech normal Psych affect normal Psych Narrative: Interacts appropriately Assessment & Plan Assessment/Plan (1) S/P lumbar fusion: (2) Anemia: PLAN: Plan L5-S1 spondylolisthesis with lumbar stenosis -Postop day 1 transforaminal lumbar interbody fusion - management per primary service -Recommend bowel regimen -Pain management per primary service Acute postoperative anemia -Hemoglobin down to 8.6 from 10.3 preoperatively -Repeat hemoglobin assessed at 1314 and was found to be 9.6 and stable -Likely related to intraoperative blood loss and volume resuscitation -Okay to discharge home Essential hypertension -Continue home chlorthalidone -Continue home Lasix -Continue home irbesartan Hyperlipidemia -Continue home atorvastatin Hypothyroidism -Continue home Synthroid DM-2 -Can restart oral agents at discharge -SSI -Accu-Cheks as ordered -Recommend cardiac/carb controlled diet GERD -Continue home PPI Vitamin D deficiency -Continue home vitamin D supplementation DVT prophylaxis -Per primary service Disposition: -Postoperative hemoglobin was 8.6--> repeat hemoglobin this afternoon is 9.6 -Okay for discharge from medical standpoint and we will sign off--> Dr. Morton notified -Please reconsult if needed Charges/Coding Visit Charges Inpatient E&M: [id number]
== END 2024-03-30 14:57 | disposition home or self-care (01) ==
LOC: SDC 12:21 → MS3 12:22
PROVIDERS: Anesthesiology; Internal Medicine; Student in an Organized Health Care Education/Training Program; Admitting Provider Orthopaedic Surgery Orthopaedic Surgery of the Spine; PCP Family Medicine; Referring Provider Orthopaedic Surgery Orthopaedic Surgery of the Spine; Visit Provider Orthopaedic Surgery Orthopaedic Surgery of the Spine
PROC: (CPT 22633; principal; 2024-03-29 07:00)
DX: M48.07 Spinal stenosis, lumbosacral region (principal); E11.9 Type 2 diabetes mellitus without complications; I10 Essential (primary) hypertension; M43.17 Spondylolisthesis, lumbosacral region; K21.9 Gastro-esophageal reflux disease without esophagitis; M51.371 Other intervertebral disc degeneration, lumbosacral region with lower extremity pain only; Z87.891 Personal history of nicotine dependence; D64.89 Other specified anemias; E78.00 Pure hypercholesterolemia, unspecified; Z79.84 Long term (current) use of oral hypoglycemic drugs; Z79.899 Other long term (current) drug therapy; E03.9 Hypothyroidism, unspecified; Z79.890 Hormone replacement therapy; E55.9 Vitamin D deficiency, unspecified
CPT/HCPCS: 22633; 22840; 22853; 20936; 20930; 00670; 36415; 72100; 76000; 80048; 82962; 83036; 83735; 84443; 85018; 85025; 85027; 86703; 86706; 86708; 86803; 86850; 86900; 86901; 87081; 94668; 96365; 96375; 96376; 97162; 97166; 97530; 99221; C1713; J7120; A4216; G0378; J2405

== ENCOUNTER 2024-05-31 09:00 | Outpatient (RCR) | payer MEDICARE, SELFPAY ==
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
--- NOTE | 2024-04-19 12:06 | HP.PTREVAL_ITS ---
Re-Evaluation Intro: Dr. Arnold Morton MD, It has been my pleasure to treat MANJULA ROWLAND over the last 2 visits for Spinal Fusion 03-29-24. Please see the progress note below for an update on the physical therapy plan of care! Subjective Subjective: Pt had back surgery on 03-29-24. She had a spinal fusion on L5/S1 and she is feeling pretty good. She is walking with a cane now. She is driving. She is on no pain meds. She still struggles with steps putting weight on the L leg. Objective Objective/Function: Gait: walks with decrease stance time on the L LE and a cane LE MMT: B hip flex 4-/5 B knee ext 4/5 B knee flex 4/5 Bridge: increase back discomfort but easier at rep 5 than rep 1 Pelvic tilt... increase back discomfort Palpation of the L piriformis: tender... increase discomfort with stretching of the L piriformis Plan Plan Plan: Pt has a vertigo issue when sitting up... she will look into getting an order for this. 2X/ week for 4-8 weeks for neutral spine core stability, gait training, light stretching or MT to the L piriformis, gait training, steps, curb steps with HEP Restrictions: BLT Balance/Gait/Functional tests Balance/Special Test Scores Oswestry Low Back Score: 27 Goals Goals Goal 1:: Patient to be I with HEP for back Goal Time Frame: 4-6 Weeks Goal 2:: Patient to demonstrate 50% improvement with less pain and improved function Goal Time Frame: 4-6 Weeks Goal 3:: Patient to improve lumbar ROM for function of recovery to put on shoes Goal Time Frame: 4-6 Weeks Goal 4:: Be able to go up and down steps recip with a rail with no struggle Goal Time Frame: 4-6 Weeks Goal 5:: Abolish L buttock pain Goal Time Frame: 4-6 Weeks Anticipated Interventions Anticipated Interventions Patient/Client Instruction: Educate patient on: Condition and Plan of Care For the Purpose of:: To decrease pain, To increase ROM, To improve muscle perfo rmance and motor function, To improve ability to perform ADL's, To increase tolerance to activity/condition/position, To improve ability of physical actions for home/community/work/leisure, To improve gait and locomotor functions, To increase flexibility/ROM and To improve tolerance to ADL's Therapeutic Exercise to Include: Strength training, Body mechanics, Postural training, Flexibilty training and Dynamic Lumbar Stabilization For the Purpose of:: To decrease pain, To increase ROM, To improve muscle performance and motor function, To improve ability to perform ADL's, To increase tolerance to activity/condition/position, To improve ability of physical actions for home/community/work/leisure, To improve health of tissue, To decrease soft tissue restriction, To increase flexibility/ROM and To improve tolerance to ADL's TENS: Yes IF ES: Yes Cryotherapy (ice pack, ice massage): Yes Thermo therapy (hot pack): Yes Ultrasound (thermal/non thermal): Yes Re-Evaluation Ending Re-evaluation ending: Please do not hesitate to contact me at [phone] by phone or if you have questions or concerns regarding this new plan of care! Sincerely, Barbra Clifton, MPT
--- NOTE | 2024-05-05 18:56 | HP.PTEVAL2 ---
Patient's Visit Information Visit Information Visit Information: MANJULA ROWLAND is a 68 year old F referred to Physical Therapy by Dr. Arnold Morton MD with a diagnosis of vertigo. Date of Evaluation: 05/05/24 Physical Therapist: DIMAS Alcantar Visit Plan Frequency: 2x /Week Duration: 2 Months Plan: Pt was negative for BPPV B, Still has dizziness when rising from supine to sit and looking up. Pt very tender and painful neck on the R side and suboccip area. 1. try and work with horizontal and then vertical head turns starting with small ROM and slow and progressing as able 2. when ready try some supine to sit transitions to habituate supine to sit starting with higher HOB and see effectivness 3. may try some MT to the c-spine and see if that contributes to some of her dizziness HEP: 45 degree seated horizontal head turns to tolerance and not to make her sick or feel dizzy after Subjective Subjective: Pt woke up this morning and has pain in mid thoracic and up to her neck. She feels like she could be sick or if she were to look up too fast she would throw up. She is not sure how long she spins for but she spins. Rolling to the R side she does not get dizzy. She prefers to sleep on her R side. If she rolls to her L side she gets dizzy. She has had treatment for BPPV before. They had to do it 2-3 times and it went away. She can not roll to the L in bed because she will get dizzy but not to the R. Objective Objective: - L HALL[place] for nystagmus and dizziness but felt very nausea. Had increase head pressure and nausea but once up for awhile it subsided -R H[place] for nystagmus and dizziness and no nausea BOTH time going to sit up she had nausea and head pressure Pt had increase tenderness to palpation along the upper occiput area and upper right sided c-spine paraspinals...like very tender even with light tough. Did very light sub occ release and slight distraction and pt had no dizziness and even a slight relief Neck rotation to R and L X 2 to each side at end range increase nausea Neck rotation X 1 to each side at 45 degrees and had increase nausea and warmth in her ears. Repeated this after resting 2 more times and got a little easier with less nausea and up to X 5 rotations. Seated chin tucks increased neck pain and had to stop. C-spine AROM: flex 100%, Ext to neutral (increase dizziness if goes farther), ROt B 75% with increase pain and dizziness Goals Goal 1:: I HEP Goal Time Frame: 6-8 Weeks Goal 2:: Pt will be able to sit up without having dizziness and nausea Goal Time Frame: 6-8 Weeks Goal 3:: Be able to stand and turn head X 30 seconds horizontal with no dizziness/ nausea Goal Time Frame: 6-8 Weeks Goal 4:: Be able to stand and turn head X 30 seconds vertical head turns with no dizziness/ nausea Goal Time Frame: 6-8 Weeks Rehabilitation Potential Rehabilitation Potential: Good Anticipated Interventions Patient/Client Instruction: Educate patient on: Condition For the Purpose of:: To increase tolerance to activity/condition/position, To improve performance and independence with ADL's, To decrease level of supervision to perform tasks, To improve ability of physical actions for home/community/work/leisure, To improve balance and To improve safety with gait Therapeutic Exercise to Include: Strength training, Endurance training, Balance training and Neuromotor development For the Purpose of:: To improve ability to perform ADL's, To increase tolerance to activity/condition/position, To improve performance and independence with ADL's, To decrease level of supervision to perform tasks and To improve ability of physical actions for home/community/work/leisure Functional Training to Include: Gait training For the Purpose of:: To improve gait and locomotor functions Manual Therapy Techniques to Include: Passive ROM and Soft tissue mobilization For the Purpose of:: To decrease pain, To increase ROM, To improve nutrient delivery to tissue and To improve muscle performance and motor function text: Thank you for the opportunity to evaluate your patient. For Medicare and Medicare HMO plans, please review the plan of care and approve it. It will need to be FAXED BACK to us at [phone] for Medicare purposes. For Medicare only, by signing this I certify the plan of care. Please let me know if there are questions or concerns regarding this plan of care. Physician Signature: Date:
--- NOTE | 2024-05-14 11:55 | HP.PTDCSUM ---
Discharge Summary D/C summary: It has been my pleasure to treat MANJULA ROWLAND referred by Dr. Arnold Morton MD, with the diagnosis of Spinal Fusion 03-29-24 for a total of 9 visit(s). Discharge Date: 05/14/24 Please see the following information for a summary of their discharge status. Subjective Subjective: Pt got a good report from the Dr. She feels that she is good to continue to do her exercises at home. They took x-rays and her back look good. She is able to bend at the waist but no twisting. She was hurting bad last time but the Dr stopped a drug for her arthritis that was affecting her kidneys so now she has some newer meds. She is off the cane unless she is in a lot of pain. She will talk to her Dr about another arthritis med. Pain Left Back: Pain Intensity (Out of 10): 8 L buttock pain: Pain Intensity (Out of 10): 8 Overall Improvement % Improvement: 100 Objective Objective/Function: Pt is doing well with her HEP and her pain control. Goals Goal 1:: Patient to be I with HEP for back Goal Progress: Goal Met Goal 2:: Patient to demonstrate 50% improvement with less pain and improved function Goal Progress: Goal Met Goal 3:: Patient to improve lumbar ROM for function of recovery to put on shoes Goal Progress: Goal Met Goal 4:: Be able to go up and down steps recip with a rail with no struggle Goal Progress: Goal Met Goal 5:: Abolish L buttock pain Goal Progress: Goal Met Plan Plan: DC PT to HEP D/C Information Discharge Comments: DC PT to HEP d/c sentence: If there are questions or concerns regarding this patient's physical therapy, please feel free to call me at [phone]. Thank you for the referral of this patient. Sincerely, Barbra Clifton, MPT Balance/Gait/Functional tests Balance/Special Test Scores Oswestry Low Back Score: 3 Dizziness Score: 24 Improvement % Improvement: 100
--- NOTE | 2024-05-21 14:20 | HP.PTDCSUM ---
Discharge Summary D/C summary: It has been my pleasure to treat MANJULA ROWLAND referred by Dr. Arnold Morton MD, with the diagnosis of Spinal Fusion 03-29-24 for a total of 9 visit(s). Discharge Date: 05/14/24 Please see the following information for a summary of their discharge status. Subjective Subjective: Pt got a good report from the Dr. She feels that she is good to continue to do her exercises at home. They took x-rays and her back look good. She is able to bend at the waist but no twisting. She was hurting bad last time but the Dr stopped a drug for her arthritis that was affecting her kidneys so now she has some newer meds. She is off the cane unless she is in a lot of pain. She will talk to her Dr about another arthritis med. Pain Left Back: Pain Intensity (Out of 10): 8 L buttock pain: Pain Intensity (Out of 10): 8 Overall Improvement % Improvement: 100 Objective Objective/Function: Pt is doing well with her HEP and her pain control. Goals Goal 1:: Patient to be I with HEP for back Goal Progress: Goal Met Goal 2:: Patient to demonstrate 50% improvement with less pain and improved function Goal Progress: Goal Met Goal 3:: Patient to improve lumbar ROM for function of recovery to put on shoes Goal Progress: Goal Met Goal 4:: Be able to go up and down steps recip with a rail with no struggle Goal Progress: Goal Met Goal 5:: Abolish L buttock pain Goal Progress: Goal Met Plan Plan: DC PT to HEP D/C Information Discharge Comments: DC PT to HEP d/c sentence: If there are questions or concerns regarding this patient's physical therapy, please feel free to call me at [phone]. Thank you for the referral of this patient. Sincerely, Pa Flannery, PT, Cert MDT, OCS Balance/Gait/Functional tests Balance/Special Test Scores Oswestry Low Back Score: 3 Dizziness Score: 24 Improvement % Improvement: 100
== END 2024-05-31 13:35 | disposition home or self-care (01) ==
LOC: PT 09:00
PROVIDERS: PCP Family Medicine; Referring Provider Orthopaedic Surgery Orthopaedic Surgery of the Spine; Visit Provider Orthopaedic Surgery Orthopaedic Surgery of the Spine
DX: M43.17 Spondylolisthesis, lumbosacral region (principal)
CPT/HCPCS: 97110; 97140; 97161; 97162; 97530

== ENCOUNTER → 2024-08-30 | Outpatient (CLI) | payer MEDICARE, SELFPAY ==
--- NOTE | 2024-08-30 14:15 | MRI_ITS ---
PROCEDURE: Noncontrast MRI of the cervical spine. 08/30/2024 REASON FOR EXAM: Chronic posterior neck pain, radiating to the upper back for several years. No history of cervical spine surgery. TECHNIQUE: Multi planar, multisequence MRI images of the cervical spine were obtained without IV contrast. COMPARISON: Cervical spine radiographs 07/30/2024. FINDINGS: Included portions of the skull base, craniocervical junction, and odontoid process are intact. Minimal grade 1 anterolisthesis of C3 relative to C4. There is moderately extensive multilevel degenerative disc and facet disease in the cervical spine. No acute fracture or focal subluxation of the cervical spine. Straightening of the normal cervical lordosis may be due to muscle spasm or positioning. No abnormal marrow replacement process of the cervical spine. Needed cervical soft tissues show no specific abnormality. No definite focal signal abnormality of the cervical spinal cord. C2-3: There is a mild posterior broad-based disc protrusion, causing mild central spinal canal narrowing. No significant neural foraminal narrowing C3-4: Diffuse lobulated disc bulge slightly indents the ventral thecal sac and causes iuhs-le-fnyjtwrv central spinal canal narrowing. No focal disc herniation. Mild bilateral neural foraminal narrowing, greatest on the left. C4-5: A lobulated disc bulge indents the ventral thecal sac and causes severe central spinal canal narrowing. No focal disc herniation. No significant neural foraminal narrowing. C5-6: Lobulated disc bulge indents the ventral thecal sac and causes rmrlaotv-ov-vrwwxz central spinal canal narrowing. No focal disc herniation. No significant right neural foraminal narrowing. Moderate left neural foraminal narrowing. C6-7: Asymmetric right posterior disc osteophyte complex causes qduwyzll-wh-evnzvf right central spinal canal narrowing. Mild left and severe right neural foraminal narrowing. C7-T1: Mild lobulated asymmetric right disc bulge causes mild right central spinal canal narrowing. No large focal disc herniation. Mild left and moderate right neural foraminal narrowing. T1-2: There is some there is a moderate disc protrusion/extrusion at this level, which indents the ventral thecal sac and causes bnlykoxk-be-ywqpfu central spinal canal narrowing. There appears to be extension of disc material above and below the disc space at this level (image 9 of the sagittal T2 sequence). Mild bilateral neural foraminal narrowing, greatest on the right. MRI/Spine Cervical (Routine) IMPRESSION: No acute bony abnormality of the cervical spine. Straightening of the normal ce rvical lordosis may be due to muscle spasm or positioning. Moderately extensive multilevel degenerative disc and facet disease in the cerv ical spine as described level by level above. Severe central spinal canal narrowing at C4-5, to a moderate/severe degree at C 5-6 and C6-7. Xhkqdftf-qh-fuhcrg central spinal canal narrowing due to posterior disc extrusion at T1-2. Multilevel neural foraminal narrowing as described level by level above. Reading [facility]
== END | disposition home or self-care (01) ==
LOC: MRI 13:55
PROVIDERS: PCP Family Medicine; Referring Provider Orthopaedic Surgery Orthopaedic Surgery of the Spine; Visit Provider Orthopaedic Surgery Orthopaedic Surgery of the Spine
DX: G95.9 Disease of spinal cord, unspecified (principal)
CPT/HCPCS: 72141

== ENCOUNTER 2024-12-05 13:35 | Inpatient (IN) | payer MEDICARE, SELFPAY ==
[2024-12-05] VITALS (11 sets, daily range): BP systolic 79–132; BP diastolic 5–76; PULSE 48–86; RESP 14–22; TEMP 36.6–36.9; O2SAT 92–100; BMI 35.8; BMI 36.8
--- NOTE | 2024-12-05 14:24 | EKG12_ITS ---
Test Reason : GENERAL Blood Pressure : */* mmHG Vent. Rate : 80 BPM Atrial Rate : * BPM P-R Int : * ms QRS Dur : 84 ms QT Int : 372 ms P-R-T Axes : * -2 44 degrees QTcB Int : 429 ms sinus tach with PAC's and sinus arrhythmia Abnormal ECG Confirmed by Anup Womack [id number]), film editor supervisor KAROL SHAY ([id number]) on 12/06/2024 1:04:41 PM Referred By: Confirmed By: Anup Womack
--- NOTE | 2024-12-05 14:24 | EKG12_ITS ---
Test Reason : GENERAL Blood Pressure : */* mmHG Vent. Rate : 80 BPM Atrial Rate : * BPM P-R Int : * ms QRS Dur : 84 ms QT Int : 372 ms P-R-T Axes : * -2 44 degrees QTcB Int : 429 ms sinus tach with PAC's and sinus arrhythmia Abnormal ECG Confirmed by Anup Womack ([id number]), slot editor KAROL SHAY ([id number]) on 12/06/2024 1:04:41 PM Referred By: Confirmed By: Anup Womack
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
--- NOTE | 2024-12-05 14:40 | RAD_ITS ---
PROCEDURE: CHEST PA AND LATERAL 12/05/2024 REASON FOR EXAM: CHEST PAIN TECHNIQUE: CHEST PA AND LATERAL COMPARISON: None FINDINGS: Mild pulmonary vascular congestion. No focal consolidation. No pleural effusion or pneumothorax. Cardiac silhouette is within normal limits. No acute fractures. RAD/Chest PA and Lateral IMPRESSION: Mild pulmonary vascular congestion. No focal consolidation. Reading Location: [id number]
--- NOTE | 2024-12-05 14:40 | RAD_ITS ---
PROCEDURE: CHEST PA AND LATERAL 12/05/2024 REASON FOR EXAM: CHEST PAIN TECHNIQUE: CHEST PA AND LATERAL COMPARISON: None FINDINGS: Mild pulmonary vascular congestion. No focal consolidation. No pleural effusion or pneumothorax. Cardiac silhouette is within normal limits. No acute fractures. RAD/Chest PA and Lateral IMPRESSION: Mild pulmonary vascular congestion. No focal consolidation. Reading Location: [id number]
[2024-12-05 14:42] LABS: Hematocrit 33.4 % (37-47); Hemoglobin 11.1 g/dL (12.0-15.0); Immature Granulocytes Count 0.030 X10^3/uL (0.0-0.0); Mean Corp Hgb Conc 33.2 g/dL (32-36); Mean Corpuscular Volume 95.4 fL (81-99); Mean Platelet Vol. 9.9 fl (6.2-12.0); NRBC Flagged by Analyzer 0 % (0-5); Platelet Count 169 K/mm3 (150-450); RBC Distribution Width CV 13.5 % (11.6-14.6); RBC Distribution Width SD 46.8 fl (35.1-43.9); Red Blood Count 3.50 M/mm3 (4.2-5.4); White Blood Count 6.9 K/mm3 (4.4-11.0)
[2024-12-05] MEDS: 0.9% Normal Saline (500mL Bag) 500 ML 999 ML IV (14:42)
--- OUTSIDE RECORDS SUMMARY | 2024-12-05 15:00 | XMS RPT_ITS | CCD ---
Author Organization [facility] Care Team Providers Care Director Of Industrial Relations Name Role Phone Unavailable Primary Care Provider UnavailMoshe Wagner MD Primary Care Provider BRIDENTHAL SUPERVISOR HANGING AND TRIMMING/TECHNICAL SUPPORT ANALYST, SEDRICK Primary Care Physic vu BRIDENTHAL SUPERVISOR HANGING AND TRIMMING/TECHNICAL SUPPORT ANALYST, SEDRICK Attending Farnaz vailable BRIDENTHAL SUPERVISOR HANGING AND TRIMMING/TECHNICAL SUPPORT ANALYST, SEDRICK Primary Care Farnaz vailable Isaac DURAND, KIZZY Baker Attending Provider Bridenthal SUPERVISOR HANGING AND TRIMMING - TECHNICAL SUPPORT ANALYST, Sedrick Primary Care Prov ider Moshe Key MD Primary Care Provider BRIDENTHAL SUPERVISOR HANGING AND TRIMMING/TECHNICAL SUPPORT ANALYST, SEDRICK Attending Farnaz vailable BRIDENTHAL SUPERVISOR HANGING AND TRIMMING/TECHNICAL SUPPORT ANALYST, SEDRICK Primary Care Farnaz vailable Dr. Moshe Key MD Primary Care Provider Dr. Moshe Key MD Referring Provider Enriqueta Tierney Attending Provider Dr. Cheo Mckenzie MD Attending Provider Dr. Arnold Morton MD Attending Provider Dr. Arnold Morton MD Referring Provider Hi ZELAYA-Tabby Perez Attending Provider Arnold Morton Attending Unavailable Moshe Key Referring Unavailable Moshe Key Primary Care Unavailable Israel Lima Attending Unavailable Moshe Key Referring Unavailable Moshe Key Primary Care Unavailable Arnold Morton Attending Unavailable Moshe Key Referring Unavailable Moshe Key Primary Care Unavailable Yesi, Moshe Primary Care Unavailable Jonah, Heth Attending Unavailable Yesi, Moshe Primary Care Unavailable Jonah, Cheo Attending Unavailable Yesi, Moshe Primary Care Unavailable Morton, Arnold Attending Unavailable Yesi, Moshe Referring Unavailable Morton, Arnold Referring Unavailable Morton, Arnold Admitting Unavailable Morton, Arnold Attending Unavailable Weeman, Inderjit Consulting Unavailable Yesi, Moshe Primary Care Unavailable Marquis, Emy Consulting Unavailable Blue Anisa Consulting Unavailable Morton, Arnold Referring Unavailable Morton, Arnold Attending Unavailable Yesi, Moshe Primary Care Unavailable Morton, Arnold Referring Unavailable Morton, Arnold Attending Unavailable Yesi, Moshe Primary Care Unavailable Morton, Arnold Referring Unavailable Morton, Arnold Attending Unavailable Yesi, Moshe Primary Care Unavailable Yesi, Moshe Primary Care Unavailable Yesi, Moshe Referring Unavailable Tabby Do Attending Unavailable Morton, Arnold Attending Unavailable Yesi, Moshe Referring Unavailable Yesi, Moshe Primary Care Unavailable Yesi, Moshe Referring Unavailable Yesi, Moshe Primary Care Unavailable Candida Houstonyn Attending Unavailable Morton, Arnold Referring Unavailable Morton, Arnold Admitting Unavailable Blue, Anisa Attending Unavailable Weeman, Inderjit Consulting Unavailable Yesi, Moshe Primary Care Unavailable Cho, Emy Consulting Unavailable Blue, Anisa Consulting Unavailable Morton, Arnold Consulting Unavailable Morton, Arnold Referring Unavailable Morton, Arnold Attending Unavailable Weeman, Inderjit Consulting Unavailable Yesi, Moshe Primary Care Unavailable Morton, Arnold Consulting Unavailable Marquis, Emy Attending Unavailable Candida Houstonyn Attending Unavailable Yesi, Moshe Primary Care Unavailable RosemarieGigiEnriqueta Attending Unavailable Yesi, Moshe Referring Unavailable Yesi, Moshe Primary Care Unavailable Jonah, Cheo Attending Unavailable Care Physician, No Primary Primary Care Unava ilable Care Physician, No Primary Referring Unava ilable Morton, Arnold Attending Unavailable Care Physician, No Primary Primary Care Unava ilable Jonah, Heth Attending Unavailable Yesi, Moshe Primary Care Unavailable Morton, Arnold Attending Unavailable Yesi, Moshe Referring Unavailable Yesi, Moshe Primary Care Unavailable Yesi, Moshe Referring Unavailable Tabby Do Attending Unavailable Yesi, Moshe Primary Care Unavailable Jonah, Heth Attending Unavailable BRIDENTHAL, SEDRICK Attending Unavailable YESI, MOSHE Primary Care Unavailable BRIDENTHAL, SEDRICK Referring Unavailable BRIDENTHAL, SEDRICK Attending Unavailable BRIDENTHAL, SEDRICK Referring Unavailable YESI, MOSHE Primary Care Unavailable BRIDENTHAL, SEDRICK Attending Unavailable BRIDENTHAL, SEDRICK Referring Unavailable YESI, MOSHE Primary Care Unavailable YESI, MOSHE Attending Unavailable YESI, MOSHE Primary Care Unavailable BRIDENTHAL, SEDRICK Attending Unavailable YESI, MOSHE Primary Care Unavailable YESI, MOSHE Primary Care Unavailable BRIDENTHAL, SEDRICK Attending Unavailable YESI, MOSHE Primary Care Unavailable YESI, MOSHE Primary Care Unavailable YESI, MOSHE Primary Care Unavailable YESI, MOSHE Primary Care Unavailable BRIDENTHAL, SEDRICK Attending Unavailable YESI, MOSHE Primary Care Unavailable YESI, MOSHE Primary Care Unavailable YESI, MOSHE Primary Care Unavailable BRIDENTHAL, SEDRICK Attending Unavailable BRIDENTHAL, SEDRICK Referring Unavailable BRIDENTHAL, SEDRICK Attending Unavailable YESI, MOSHE Primary Care Unavailable Allergies Allergy Classification Reported Allergen(s) Allergy Type Date of Onset Reaction(s) Facility Dihydrofolate Reductase Inhibitors (antibiotic) (1 source) Trimethoprim Drug Allergy 07-01-19 24 Nausea And Vomiting [facility] Opioid Agonists (1 source) Codeine Drug Allergy 04-02-20 23 Dizziness, Vomiting Only, Nausea And Vomiting [facility] Sulfamethoxazole / Trimethoprim (1 source) Sulfamethoxazole / Trimethoprim Drug Allergy 04-02-20 23 Vomiting Only [facility] (20 sources) Codeine Drug Allergy 04-02-20 23 Dizziness, Vomiting Only, Nausea And Vomiting [facility] (20 sources) Sulfamethoxazole / Trimethoprim Drug Allergy 04-02-20 23 Vomiting Only [facility] (2 sources) Sulfamethoxazole Drug Allergy 07-01-19 24 Vomiting [facility] (20 sources) Trimethoprim Drug Allergy 07-01-19 24 Nausea And Vomiting [facility] (20 sources) Sulfamethoxazole Allergy to substance 07-01-19 24 Nausea And Vomiting [facility] (1 source) Codeine Drug Allergy 09-24-19 25 [facility] (1 source) Sulfamethoxazole Drug Allergy 09-24-19 25 [facility] (1 source) Trimethoprim Drug Allergy 09-24-19 25 [facility] Medications Current Medications Medication Drug Class(es) Dates Sig (Normalized) Sig (Original) acetaminophen 500 mg oral tablet (20 sources) Start: 03-30-2024 take 1 tablet by mouth every six hours Acetaminophen 500 mg Tablet Active 500 mg PO EVERY 6 HOURS March 30, 2024 1:00am Start: 03-15-2024 End: 03-30-2024 take 2 capsules by mouth every six hours as needed for pain Acetaminophen 500 mg capsule Discontinued 1000 mg PO EVERY 6 HOURS as needed for pain March 15, 2024 12:00am March 30, 2024 12:15pm atorvastatin 20 mg oral tablet (20 sources) HMG-CoA Reductase Inhibitor Start: 07-02-2024 take 1 tablet by mouth once daily Atorvastatin 20 mg tablet Active 20 mg PO daily July 02, 2024 1:00am Start: 05-06-2024 End: 06-05-2024 take 1 tablet by mouth once daily atorvastatin (Lipitor) 20 MG tablet Indications: Mixed hyperlipidemia Take 1 tablet (20 mg) by mouth daily. 30 tablet 05/06/2024 Active Start: 01-16-2024 End: 07-02-2024 take 1 tablet by mouth once daily Atorvastatin 10 mg tablet Discontinued 10 mg PO DAILY January 16, 2024 12:00am July 02, 2024 12:30pm Start: 01-11-2023 End: 12-03-2023 take 1 tablet by mouth once daily atorvastatin (Lipitor) 10 MG tablet Indications: Mixed hyperlipidemia Take 1 tablet (10 mg) by mouth daily. 90 tablet 1 12/03/2023 Active chlorthalidone 25 mg oral tablet (20 sources) Thiazide-like Diuretic Start: 01-11-2023 End: 07-19-2024 take 1 tablet by mouth once daily chlorthalidone (Hygroton) 25 MG tablet Indications: Primary hypertension TAKE 1 TABLET BY MOUTH DAILY 100 tablet 2 07/19/2024 Active DIGESTIVE ENZYMES PO (20 sources) DIGESTIVE ENZYME S PO Take 175 mg by mouth in the morning and 175 mg at noon and 175 mg in the evening. Active DIGESTIVE ENZYME S PO Take 175 mg by mouth in the morning and 175 mg at noon and 175 mg in the evening. 0 Active Digestive Enzymes tablet (1 source) Start: 03-15-2024 take 1 tablet by mouth three times daily Digestive Enzymes tablet Active 1 {tbl} PO THREE TIMES A DAY March 15, 2024 12:00am ergocalciferol 1.25 mg oral capsule (13 sources) Provitamin D2 Compound Start: 03-15-2024 Ergocalciferol (Vitamin D2) (Vitamin D2) 1,250 mcg (50,000 unit) capsule Active 1250 ug PO EVERY WEEK March 15, 2024 12:00am Start: 01-16-2024 End: 04-09-2024 take 1 capsule by mouth every week ergocalciferol (Vitamin D-2) 1.25 MG (23549 UT) capsule Indications: Vitamin D deficiency Take 1 capsule (1.25 mg) by mouth 1 (one) time per week. 12 capsule 01/16/2024 04/09/2024 Active fenofibrate 160 mg oral tablet (15 sources) Peroxisome Proliferator Receptor alpha Agonist Start: 06-04-2024 End: 09-02-2024 take 1 tablet by mouth once daily fenofibrate (Triglide) 160 MG tablet Indications: Pure hypercholesterolemia TAKE 1 TABLET BY MOUTH DAILY 100 tablet 2 09/02/2024 Active Fish Oils (20 sources) take 1 capsule by mouth once daily omega-3 (Fish Oil) 1200 MG capsule Take 1,200 mg by mouth daily. Active take 1 capsule by mouth once diego ly omega-3 (Fish Oil) 1200 MG capsule Take 1,200 mg by mouth daily. 0 Active furosemide 20 mg oral tablet (20 sources) Loop Diuretic Start: 01-31-2023 End: 11-10-2024 take 1 tablet by mouth once daily furosemide (Lasix) 20 MG tablet Indications: Swelling of both lower extremities TAKE 1 TABLET BY MOUTH DAILY 100 tablet 2 11/10/2024 Active ipratropium bromide 0.042 mg/actuat metered dose nasal spray (9 sources) Anticholinergic Start: 07-05-2024 End: 07-12-2024 take 2 spray(s) nasal route three times daily ipratropium (Atrovent) 0.06 % nasal spray Indications: Post-nasal drainage Administer 2 sprays into each nostril 3 times daily for 7 days. 15 mL 07/05/2024 Active irbesartan 300 mg oral tablet (20 sources) Angiotensin 2 Receptor Sherly Start: 01-11-2023 End: 07-19-2024 take 1 tablet by mouth once daily irbesartan (Avapro) 300 MG tablet Indications: Primary hypertension TAKE 1 TABLET BY MOUTH DAILY 100 tablet 2 07/19/2024 Active metFORMIN hydrochloride 1000 mg oral tablet (20 sources) Biguanide Start: 10-21-2024 Metformin 500 mg tablet Active 500 mg PO .1500, 2100 March 15, 2024 12:00am Start: 03-14-2023 End: 06-02-2024 take 1 tablet by mouth in the morning metFORMIN (Glucophage) 1000 MG tablet TAKE 1 TABLET BY MOUTH IN THE MORNING AND 1 TABLET BY MOUTH IN THE EVENING TAKE WITH MEALS 200 tablet 2 06/02/2024 Active methylPREDNISolone 4 mg oral tablet (3 sources) Corticosteroid Start: 07-07-2024 take 1 tablet by mouth once Methylprednisolone (Medrol ([place])) 4 mg tablets,dose pack Active 4 mg PO per package directions July 07, 2024 1:00am Start: 06-28-2024 End: 06-28-2024 methylPREDNISolone acetate ( DEPO-Medrol) injection 40 mg NON FORMULARY (20 sources) take 1 tablet by shae th once daily NON FORMULARY Gurmur 134 mg 2 tablets daily po Active take 450 mg by mouth once daily NON FORMULARY Cardio 450 mg daily po for heart health Active take 1 tablet by mouth once roya y NON FORMULARY 4Life Classic 600 mg 3 tablets daily po Active take 1 tablet by mouth once roya y NON FORMULARY Gurmur 134 mg 2 tablets daily po 0 Active take 450 mg by mouth once daily NON FORMULARY Cardio 450 mg daily po for heart health 0 Active take 1 tablet by mouth once roya y NON FORMULARY 4Life Classic 600 mg 3 tablets daily po 0 Active nystatin 708153 unt/ml topical cream (20 sources) Polyene Antifungal Start: 06-10-2024 nystatin (M ycostatin) cream APPLY TOPICALLY TWICE DAILY 120 g 2 06/10/2024 Active Start: 01-16-2024 End: 03-15-2024 Nystatin 100,000 unit/gram c ream Discontinued TOPICAL January 16, 2024 12:00am March 15, 2024 2:10pm Start: 12-10-2023 End: 06-10-2024 nystatin (Mycostatin) cream Apply topically 2 times daily. 30 g 3 12/10/2023 06/10/2024 Discontinued Start: 10-22-2022 End: 12-09-2023 nystatin (Mycostatin) cream 10/22/2022 12/09/2023 Discontinued (Reorder) [place] 2-Vlb-Eeu-Fish Oil (Fish Oil) 1,200 (144-216) mg capsule (1 source) Start: 01-16-2024 [place] 5-Pmz-Bpk-Fish Oil (Fish Oil) 1,200 (144-216) mg capsule Active 1 NMA PO DAILY January 16, 2024 12:00am omeprazole 40 mg delayed release oral capsule (20 sources) Proton Pump Inhibitor Start: 12-15-2022 End: 11-10-2024 take 1 capsule by mouth before breakfast omeprazole (PriLOSEC) [address] capsule Indications: Gastroesophageal reflux disease without esophagitis TAKE 1 CAPSULE BY MOUTH IN THE MORNING BEFORE BREAKFAST 100 capsule 2 11/10/2024 Active Omeprazole 40 mg capsule,delayed release(DR/EC) (1 source) Start: 01-16-2024 take 1 capsule by mouth once daily Omeprazole 40 mg capsule,delayed release(DR/EC) Active 40 mg PO daily January 16, 2024 12:00am rosuvastatin calcium 10 mg oral tablet (9 sources) HMG-CoA Reductase Inhibitor Start: 07-07-2024 End: 09-02-2024 take 1 tablet by mouth once daily rosuvastatin (Crestor) 10 MG tablet Indications: Pure hypercholesterolemia TAKE 1 TABLET BY MOUTH DAILY 100 tablet 2 09/02/2024 Active traMADol hydrochloride 50 mg oral tablet (4 sources) Opioid Agonist Start: 09-03-2023 End: 09-08-2023 take 1 tablet by mouth every six hours as needed for pain traMADol (Ultram) 50 MG tablet Indications: H/O excision of mass Take 1 tablet (50 mg) by mouth every 6 hours as needed for severe pain (7-10) for up to 5 days. 20 tablet 0 09/03/2023 09/08/2023 Active Vit A-N-W3-Cltd-C-Mffy- Quercet (Immune Essentials Daily) 750 mcg-150 mg- 31.25 mcg capsule (1 source) Start: 03-15-2024 Vit L-L-F5-Kksn-T-Sluz-Querc et (Immune Essentials Daily) 750 mcg-150 mg- 31.25 mcg capsule Active 1 NMA PO THREE TIMES A DAY March 15, 2024 12:00am vitamin e 180 mg oral capsule (20 sources) Start: 01-16-2024 take 1 capsule by mouth once daily Vitamin E (Dl, Acetate) 180 mg (400 unit) capsule Active 180 mg PO DAILY January 16, 2024 12:00am take 1 capsule by mouth once diego ly Vitamin E 450 MG (1000 UT) capsule Take 450 mg by mouth daily. Active Completed/Discontinued Medications Medication Drug Class(es) Dates Sig (Normalized) Sig (Original) ALPRAZolam 0.25 mg oral tablet (3 sources) Benzodiazepine Start: 01-31-2023 End: 04-23-2023 take 1 tablet by mouth once as needed for anxiety ALPRAZolam (Xanax) 0.25 MG tablet TAKE ONE TABLET BY MOUTH EVERY TWELVE HOURS NEEDED FOR ANXIETY 0 01/31/2023 04/02/2023 Discontinued amoxicillin 875 mg / clavulanate 125 mg oral tablet (1 source) Penicillin-class Antibacterial Start: 02-05-2024 End: 02-15-2024 Amoxicillin-Pot Clavulanate 875-125 mg tablet Discontinued 1 {tbl} PO Q12H 20 February 05, 2024 12:00am February 14, 2024 12:00am February 15, 2024 12:05am benzonatate 100 mg oral capsule (1 source) Non-narcotic Antitussive Start: 02-05-2024 End: 03-15-2024 take 2 capsules by mouth three times daily as needed for cough Benzonatate 100 mg capsule Discontinued 200 mg PO THREE TIMES A DAY as needed for cough February 05, 2024 12:00am March 15, 2024 2:11pm calcium chloride 0.0014 meq/ml / potassium chloride 0.004 meq/ml / sodium chloride 0.103 meq/ml / sodium lactate 0.028 meq/ml injectable solution (2 sources) Start: 09-03-2023 End: 09-03-2023 lactated Ringer's (LR) infusion 1 ml diphenhydrAMINE hydrochloride 50 mg/ml cartridge (2 sources) Histamine-1 Receptor Antagonist Start: 09-03-2023 End: 09-03-2023 diphenhydrAMINE (BENADryl) injection 12.5 mg docusate sodium 50 mg / sennosides, prison 8.6 mg oral tablet (1 source) Start: 03-30-2024 End: 04-15-2024 Sennosides-Docusate Sodium (Stimulant Laxative Plus) 8.6-50 mg Tablet Discontinued 2 {tbl} PO TWICE A DAY as needed for constipation March 30, 2024 12:17pm April 15, 2024 2:32pm ferrous sulfate 325 mg oral tablet (20 sources) End: 05-04-2024 take 1 tablet by mouth every other day ferrous sulfate 325 (65 Fe) MG tablet Take 325 mg by mouth every other day. 05/04/2024 Discontinued (Therapy completed) 1 ml HYDROmorphone hydrochloride 1 mg/ml cartridge (4 sources) Opioid Agonist Start: 09-03-2023 End: 09-03-2023 HYDROmorphone (Dilaudid) injection 0.5 mg Start: 09-03-2023 End: 09-03-2023 HYDROmorphone (Dilaudid) inj ection 0.25 mg indomethacin 50 mg oral capsule (20 sources) Nonsteroidal Anti-inflammatory Drug Start: 03-14-2023 End: 05-13-2024 Indomethacin 50 mg capsule Discontinued 50 mg PO 1700 January 16, 2024 12:00am May 13, 2024 2:41pm labetalol (Normodyne,Trandat e) injection 5 mg (2 sources) Start: 09-03-2023 End: 09-03-2023 labetalol (Normodyne,Tranda te) injection 5 mg levothyroxine sodium 0.15 mg oral tablet (20 sources) l-Thyroxine Start: 05-06-2024 End: 03-21-2025 take 1 tablet by mouth once daily before breakfast levothyroxine (Synthroid, Levoxyl) 150 MCG tablet Indications: Hypothyroidism, unspecified type Take 1 tablet (150 mcg) by mouth every morning (before breakfast). 90 tablet 1 09/22/2024 11/30/2024 Discontinued Start: 01-16-2024 End: 08-11-2024 take 1 tablet by mouth once daily before breakfast levothyroxine (Synthroid, Levoxyl) 100 MCG tablet Indications: Hypothyroidism, unspecified type Take 1 tablet (100 mcg) by mouth every morning (before breakfast). 90 tablet 1 02/13/2024 08/11/2024 Active Start: 01-16-2024 take 2 capsules by m outh once daily Levothyroxine 75 mcg capsule Active 150 ug PO DAILY January 16, 2024 12:00am Start: 01-11-2023 End: 01-15-2024 take 1 tablet by mouth once daily before breakfast levothyroxine (Synthroid, Levoxyl) 75 MCG tablet Indications: Hypothyroidism, unspecified type Take 1 tablet (75 mcg) by mouth every morning (before breakfast). 90 tablet 1 12/03/2023 01/15/2024 Discontinued (Reorder) 10 ml lidocaine hydrochloride 20 mg/ml injection (2 sources) Antiarrhythmic, Amide Local Anesthetic Start: 06-28-2024 End: 06-28-2024 lidocaine (Xylocaine) 2 % injection 1 mL 1 ml LORazepam 2 mg/ml injection (2 sources) Benzodiazepine Start: 09-03-2023 End: 09-03-2023 LORazepam (Ativan) injection 0.5 mg Magnesium (2 sources) End: 04-23-2023 MAGNESIUM PO Take by mouth. 0 04/23/2023 Discontinued (Therapy completed) MAGNESIUM PO Marquez e by mouth. 0 Active meclizine hydrochloride 25 mg oral tablet (20 sources) Antiemetic Start: 07-01-2023 End: 05-04-2024 take 1 tablet by mouth three times daily as needed for dizziness Meclizine 25 mg tablet Discontinued 25 mg PO THREE TIMES A DAY as needed for dizziness July 01, 2023 9:01pm March 15, 2024 2:11pm methocarbamol 500 mg oral tablet (1 source) Muscle Relaxant Start: 03-30-2024 End: 07-02-2024 Methocarbamol 500 mg Tablet Discontinued 750 mg PO THREE TIMES A DAY as needed for pain/spasms March 30, 2024 12:16pm July 02, 2024 12:30pm 2 ml ondansetron 2 mg/ml injection (4 sources) Serotonin-3 Receptor Antagonist Start: 09-03-2023 End: 09-03-2023 ondansetron (Zofran) injection 4 mg Start: 07-01-2023 End: 03-15-2024 take 1 tablet by mouth every eight hours as needed for nausea Ondansetron 4 mg tablet,disintegrating Discontinued 4 mg PO EVERY 8 HOURS NEEDED as needed for Nausea July 01, 2023 1:00am March 15, 2024 2:10pm oxyCODONE hydrochloride 5 mg oral tablet (3 sources) Opioid Agonist Start: 03-30-2024 End: 04-15-2024 take 2.5-5 mg by mouth every six hours as needed for pain Oxycodone 5 mg Tablet Discontinued 2.5 - 5 mg PO EVERY 6 HOURS as needed for pain 20 12March 30, 2024 April 15, 2024 2:32pm Start: 09-03-2023 End: 09-03-2023 oxyCODONE (Roxicodone) immed iate release tablet 5 mg Phytosterol 400 mg tablet (1 source) Start: 03-15-2024 End: 07-02-2024 take 1 tablet by mouth once daily Phytosterol 400 mg tablet Discontinued 400 mg PO DAILY March 15, 2024 12:00am July 02, 2024 12:30pm 50 ml sodium chloride 9 mg/ml injection (8 sources) Start: 09-03-2023 End: 09-03-2023 sodium chloride 0.9 % bolus 500 mL Start: 09-03-2023 End: 09-03-2023 sodium chloride 0.9 % infusi on Start: 09-03-2023 End: 09-03-2023 sodium chloride 0.9% (NS) fl ush 5-40 mL vitamin B12 (20 sources) Vitamin B12 Start: 01-16-2024 End: 03-15-2024 take 1 tablet by mouth once daily Cyanocobalamin (Vitamin B-12) 500 mcg tablet Discontinued 500 ug PO DAILY January 16, 2024 12:00am March 15, 2024 2:10pm End: 05-04-2024 take 1 tablet by mouth every other day cyanocobalamin (HM Vitamin B-12) 500 MCG tablet Take 500 mcg by mouth every other day. 05/04/2024 Discontinued (Therapy completed) take 1 tablet by shae th once daily cyanocobalamin (HM Vitamin B-12) 500 MCG tablet Take 500 mcg by mouth daily. Active Problems Active Problems Problem Classification Problem Date Documented Date Episodic/Chronic Deficiency and other anemia (2 sources) Anemia; Translations: [Anemia, unspecified] 12-03-2023 Episodic Diabetes mellitus without complication (20 sources) Type 2 diabetes mellitus without complication; Translations: [Type 2 diabetes mellitus without complications] Onset: 04-02-2023 04-02-2023 Chronic Disorders of lipid metabolism (20 sources) Mixed hyperlipidemia; Translations: [Mixed hyperlipidemia] Onset: 01-21-2024 12-03-2023 Chronic Esophageal disorders (20 sources) Gastroesophageal reflux disease without esophagitis; Translations: [Gastro-esophageal reflux disease without esophagitis] Onset: 05-05-2023 05-05-2023 Chronic Essential hypertension (20 sources) Essential hypertension; Translations: [Essential (primary) hypertension] Onset: 04-02-2023 04-02-2023 Chronic Fluid and electrolyte disorders (3 sources) Dehydration; Translations: [Dehydration] 07-01-2023 Episodic Hepatitis (20 sources) Nonalcoholic steatohepatitis; Translations: [Nonalcoholic steatohepatitis (HERNÁNDEZ)] Onset: 05-05-2023 01-21-2024 Chronic Nausea and vomiting (3 sources) Nausea, vomiting and diarrhea; Translations: [Nausea with vomiting, unspecified] 07-01-2023 Episodic Nutritional deficiencies (2 sources) Vitamin D deficiency; Translations: [Vitamin D deficiency, unspecified] 01-16-2024 Chronic Osteoarthritis (20 sources) Degenerative joint disease involving multiple joints; Translations: [Polyosteoarthritis, unspecified] Onset: 04-02-2023 04-02-2023 Chronic Comment on above: Knee X-rays from Apr show mild to moderate degenerative changes, there is a large osteophyte formation at the lateral compartment of the knee which 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 There is mild joint space narrowing, no weightbearing views were obtained at that time. Other acquired deformities (1 source) Acquired kyphosis; Translations: [Unspecified kyphosis, thoracolumbar region] 01-18-2024 Chronic Other acquired deformities (1 source) Lumbar spondylolisthesis; Translations: [Spondylolisthesis, lumbar region] 04-07-2024 Episodic Other circulatory disease (2 sources) Orthostatic hypotension; Translations: [Orthostatic hypotension] 07-01-2023 Episodic Other circulatory disease (1 source) Orthostatic hypotension; Translations: [Orthostatic hypotension] 07-01-2023 Episodic Other connective tissue disease (2 sources) Ganglion cyst of right wrist; Translations: [Ganglion, right wrist] 09-03-2023 Episodic Other connective tissue disease (3 sources) History of lumbar fusion; Translations: [Arthrodesis status] 03-30-2024 Episodic Other connective tissue disease (2 sources) Arthrodesis status; Translations: [Arthrodesis status] Onset: 03-30-2024 Episodic Other ear and sense organ disorders (20 sources) Hearing problem; Translations: [Unspecified hearing loss, bilateral] Onset: 07-24-2023 07-24-2023 Chronic Other liver diseases (20 sources) Steatosis of liver; Translations: [Fatty (change of) liver, not elsewhere classified] Onset: 05-05-2023 05-05-2023 Chronic Other nervous system disorders (2 sources) Cervical myelopathy; Translations: [Disease of spinal cord, unspecified] 07-30-2024 Chronic Other nervous system disorders (1 source) Disease of spinal cord, unspecified; Translations: [Disease of spinal cord, unspecified] Onset: 09-03-2024 Chronic Other nervous system disorders (2 sources) Other chronic pain; Translations: [Other chronic pain] Onset: 12-17-2023 Chronic Other nutritional; endocrine; and metabolic disorders (20 sources) Hereditary hemochromatosis; Translations: [Hereditary hemochromatosis] Onset: 04-02-2023 04-02-2023 Chronic Other nutritional; endocrine; and metabolic disorders (20 sources) Morbid obesity; Translations: [Morbid (severe) obesity due to excess calories] Onset: 07-24-2023 07-24-2023 Chronic Other nutritional; endocrine; and metabolic disorders (1 source) Hereditary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 content not included)... Normal [facility] Orthopedic Visit Reporton Orthopedic Visit Report [facility] [facility] [address] [place] [address] OFFICE VISIT Date of Service: 07/28/24 MR#: [id number] Acct: [id number] Name: YODIT LANDIN Rep #: [id number] : 1955 Provider: DENISE braun Age/Sex: 69/F Location: [facility] – [place] Status: Signed Intake Vital Signs 03/29/24 13:35 Height 5 ft 4 in Intake Visit Reasons: RIGHT KNEE Chief Complaint: Follow up Is patient in pain?: Yes Pain scale (1-10): 4 Allergies codeine Adverse Reaction (Intermediate, Verified 07/28/24 10:53) Vomiting sulfamethoxazole (From Bactrim) Adverse Reaction (Intermediate, Verified 07/28/24 10:53) Vomiting trimethoprim (From Bactrim) Adverse Reaction (Intermediate, Verified 07/28/24 10:53) Vomiting Medications ???Medication ???Instructions ???Recorded ???Confirmed ???Type chlorthalidone 25 mg tablet 25 mg PO DAILY 01/16/24 07/28/24 H istory furosemide 20 mg tablet 20 mg PO DAILY 01/16/24 07/28/24 H istory irbesartan 300 mg tablet 300 mg PO DAILY 01/16/24 07/28/24 History levothyroxine 75 mcg capsule 150 mcg PO DAILY 01/16/24 07/28/24 History metformin 1,000 mg tablet 1,000 mg PO .QAM 01/16/24 07/28/24 History omega 1-dnc-fhc-fish oil 1,200 mg 1 cap PO DAILY 01/16/24 07/28/24 History (144 mg-216 mg) capsule (Fish Oil) omeprazole 40 mg capsule,delayed 40 mg PO QDAY 01/16/24 07/28/24 Hi story release vitamin E (dl, acetate) 180 mg 180 mg PO DAILY 01/16/24 07/28/24 History (400 unit) capsule digestive enzymes 1 tab PO TID 03/15/24 07/28/24 His tory ergocalciferol (vitamin D2) 1,250 1,250 mcg PO QWEEK 03/15/2407/28 History mcg (50,000 unit) capsule (Vitamin D2) metformin 500 mg tablet 500 mg PO .1500, 2100 03/15/2410/17 History vit A 750 mcg-vit C 150 mg-D3 1 cap PO TID 03/15/24 07/28/24 His tory 31.25 owz-foyg-erquwwpku-quer cet capsule (Immune Essentials Daily) acetaminophen 500 mg tablet 500 mg PO Q6H #30 tabs 03/30/24 Rx atorvastatin 20 mg tablet 20 mg PO QDAY 07/02/24 07/28/24 Hi story fenofibrate 160 mg tablet 160 mg PO QDAY 07/02/24 07/28/24 H istory methylprednisolone 4 mg tablets in 4 mg PO PER PKG DIR #21 tabs 05/1907/28/24 Rx a dose pack (Medrol ([place])) Have you fallen in the past year?: No PFSH Medical History Wears partial dentures Wears contact lenses Wears glasses Post-menopausal Thyroid disease Diabetes Arthritis High cholesterol Hemochromatosis Injury of head and neck Gastric reflux Former smoker History of pain when walking Hypertension History of echocardiogram Dehydration Nausea vomiting and diarrhea Surgical History History of surgery on right wrist Hx of repair of right rotator cuff History of 2 sections Hx of ovarian cystectomy Hx of hysterectomy Hx of tonsillectomy Social History Smoking Status: Former smoker HPI RIGHT KNEE Details: this documentation accurately reflects the service provided and the decisions made by me, Tabby Do, SUKUMARC 07/28/24 1051. Part of today???s visit was documented by [Peace Esteves MA ], acting as scribe. YODIT LANDIN is a 69 year old F here today for a follow up, is having a little bit of pain today. Having worse pain when bending the knee, or any movement. She would like to discuss about knee injections. Having good balance with knees. She said the Prednisone packet helped a lot for her. Agree with above. Yodit is a pleasant 69-year-old female here for 3-week follow-up of right knee pain. Significant improvement after use of Medrol Dosepak that lasted approximately 1 week post completion. Symptoms have returned. No new injuries or known aggravators. Patient is interested in pursuing cortisone injection as discussed at last week's visit. Patient is hesitant due to a poor experience with knee cortisone injection from outside provider in the past. Using topical arthritis formula, unsure of ingredients. ROS Const All systems reviewed are unremarkable except as noted in H and other (A O x 3, no apparent distress. No recent illness.) ENT Denies dizziness Card Denies chest pain, Denies dyspnea, Denies edema and Reports other (No palpitations) Resp Denies cough, Denies dyspnea and Reports other (No recent URI) GI Reports system reviewed and no additional complaints, except as documented, Denies nausea and Denies vomiting Musc Reports as per HPI Neuro No dizziness and Yes other (Paresthesias as noted in HPI) Psych Reports system reviewed and no additional complaints, except as documented Lake/Lymph Denies easy ble (more content not included)... [facility] 07-19-2024 36 Just refilled to requested pharmacy last month for a 90 day supply plus one refill. [place] [id number] Prescription Request : Last medication check: 01/21/24 Last physical exam: 05/04/24 Next scheduled appointment: 05/05/25 Last date of refill on this medication Irbesartan 05/03/24, chlorthalidone 05/03/24, Atrovent 07/05/24 [place] [id number] Prescription Request : Last medication check: 01/21/24 Last physical exam: 05/04/24 Next scheduled appointment: 05/05/25 Last date of refill on this medication 06/04/24 [place] [address]on 07-07-2024 36 Atorvastatin removed from medication list. Rx sent for Rosuvastatin. Future lab orders signed. Thank you. [place] [id number] Notified, agreeable, orders pended, patient is scheduled. Please send Rosuvastatin to [facility] on file. Thanks! Normal [facility] 36 I recommend switchin g from Atorvastatin to Rosuvastatin and rechecking levels again in 4 weeks. Continue current dose of Fenofibrate. Normal [facility] 36 Spoke to Yodit, she states she is taking the Fenofibrate and Atorvastatin daily. Normal [facility] Orthopedic Visit Reporton Orthopedic Visit Report [facility] [address] [place] [address] OFFICE VISIT Date of Service: 07/07/24 MR#: [id number] Acct: [id number] Name: YODIT LANDIN VIVIAN Rep #: [id number] : 1955 Provider: DENISE braun Age/Sex: 68/F Location: [facility] – [place] Status: Signed Intake Vital Signs 03/29/24 13:35 Height 5 ft 4 in Intake Visit Reasons: RIGHT KNEE Allergies codeine Adverse Reaction (Intermediate, Verified 07/07/24 10:54) Vomiting sulfamethoxazole (From Bactrim) Adverse Reaction (Intermediate, Verified 07/07/24 10:54) Vomiting trimethoprim (From Bactrim) Adverse Reaction (Intermediate, Verified 07/07/24 10:54) Vomiting Medications ???Medication ???Instructions ???Recorded ???Confirmed ???Type chlorthalidone 25 mg tablet 25 mg PO DAILY 01/16/24 07/07/24 H istory furosemide 20 mg tablet 20 mg PO DAILY 01/16/24 07/07/24 H istory irbesartan 300 mg tablet 300 mg PO DAILY 01/16/24 07/07/24 History levothyroxine 75 mcg capsule 150 mcg PO DAILY 01/16/24 07/07/24 History metformin 1,000 mg tablet 1,000 mg PO .QAM 01/16/24 07/07/24 History omega 7-mfy-pqr-fish oil 1,200 mg 1 cap PO DAILY 01/16/24 07/07/24 History (144 mg-216 mg) capsule (Fish Oil) omeprazole 40 mg capsule,delayed 40 mg PO QDAY 01/16/24 07/07/24 Hi story release vitamin E (dl, acetate) 180 mg 180 mg PO DAILY 01/16/24 07/07/24 History (400 unit) capsule digestive enzymes 1 tab PO TID 03/15/24 07/07/24 His tory ergocalciferol (vitamin D2) 1,250 1,250 mcg PO QWEEK 03/15/2407/07 History mcg (50,000 unit) capsule (Vitamin D2) metformin 500 mg tablet 500 mg PO .1500, 2100 03/15/2405/19 History vit A 750 mcg-vit C 150 mg-D3 1 cap PO TID 03/15/24 07/07/24 His tory 31.25 yso-jeis-efatpiquf-quer cet capsule (Immune Essentials Daily) acetaminophen 500 mg tablet 500 mg PO Q6H #30 tabs 03/30/24 Rx atorvastatin 20 mg tablet 20 mg PO QDAY 07/02/24 07/07/24 Hi story fenofibrate 160 mg tablet 160 mg PO QDAY 07/02/24 07/07/24 H istory methylprednisolone 4 mg tablets in 4 mg PO PER PKG DIR #21 tabs 05/1907/07/24 Rx a dose pack (Medrol ([place])) Have you fallen in the past year?: No PFSH Medical History Wears partial dentures Wears contact lenses Wears glasses Post-menopausal Thyroid disease Diabetes Arthritis High cholesterol Hemochromatosis Injury of head and neck Gastric reflux Former smoker History of pain when walking Hypertension History of echocardiogram Dehydration Nausea vomiting and diarrhea Surgical History History of surgery on right wrist Hx of repair of right rotator cuff History of 2 sections Hx of ovarian cystectomy Hx of hysterectomy Hx of tonsillectomy Social History Smoking Status: Former smoker HPI RIGHT KNEE Details: This documentation accurately reflects the service provided and the decisions made by me, Tabby Do NP-C 07/07/24 1053. Part of today???s visit was documented by Rachell HAYS, acting as scribe. YODIT LANDIN is a 68 year old F here today for right knee pain that she has been having since the end of 2023. She states that she had her legs crossed and was tieing her shoes then when she moves her leg back and felt grinding in her knee. She then was unable to bear weight but is able to bear weight now. Her pain is over her posterior knee. She saw her pcp and had xrays done that shows calcium deposits. Her pcp tried to give her an injection but didn't have any success getting into the knee. She denies previous injury or surgery to the knee. She does take Tylenol for her arthritis but it doesn't help with the knee pain. She denies mechanical symptoms. She denies physical therapy. She did get a knee sleeve from [facility] that was helping with the pain but now it doesn't seem to be as helpful. Agree with above. Yodit presents today with a new problem of right knee pain since March 2024. Denies any prior injury or difficulties with the right knee. She is approximately 3 months postop lumbar spine surgery and has not resumed baseline mobility or activity at this time. At this time, the right knee is the most troubling. OTC Tylenol seems to help take the edge off she has opted any other OTC or prescription oral medications. She is attempted multiple topicals and is currently getting relief with arthritis heat formula. She uses this on a as needed basis. She is unsure of the product ingredients are frequency recommended on the package directions. Apprehensive about possibility of cortisone injection due to discomfort with last attempt at her PCP off (more content not included)... [facility] 07-06-2024 36 ----- Message from ASAF Meneses CNP sent at 07/06/2024 8:38 AM EST ----- Triglyceride levels and bad cholesterol levels have increased since previous check. Has she been taking the Fenofibrate and Atorvastatin daily as prescribed and not missing any doses? Liver enzymes are normal. Left a message to return call. [facility] 07-05-2024 36 Notified, no further questions. [facility] 36 Prescription sent to [facility] 36 Pt came in wanting a refill on the following, I didn't see it on her med list, but pt stated she had talked to Maria Luisa about it and she was supposed to bring the spray in so she'd know what the mediation was: Ipratropium bromide nasal solution .03 30ml Prescription Request: Last medication check: 06/28/24 Last physical exam: 05/04/24 Next scheduled appointment: 05/05/25 [facility] Progress Noteon 07-05-2024 Progress Note Venipuncture complet ed by [facility]. Normal [facility] Lumbar Spine 2 or 3 Viewson 07-02-2024 Lumbar Spine 2 or 3 Views [facility] [address] [place] [address] Lumbar Spine 2 or 3 Views MR#: [id number] Acct: [id number] Name: YODIT LANDIN VIVIAN Rep #: [id number] : 1955 F 68 From: Isaiah Barahona MD PCP: Dr. Moshe Key MD Status: DEP AMB Study: Lumbar Spine 2 or 3 Views Date of Exam: Exam# [id number] Ordering Dr: Enriqueta [place] PROCEDURE: LUMBAR SPINE 2 OR 3 VIEWS REASON FOR EXAM: Pain. TECHNIQUE: 2 view(s) of the lumbar spine COMPARISON: None. FINDINGS: L5-S1 posterior fusion and L5-S1 prosthetic disc. Discogenic degenerative changes most pronounced in the lower thoracic levels and L1-2. Grade 1 retrolisthesis of L2 on L3. RAD/Lumbar Spine 2 or 3 Views IMPRESSION: Postsurgical changes. Spondylosis. Spondylolisthesis. Reading Location: [id number] CC: KIZZY Hebert; Dr. Moshe Key MD Felt Cutter: Signed Normal [facility] Orthopedic Visit Reporton Orthopedic Visit Report [facility] [address] [place] [address] [address] [place] [address] OFFICE VISIT Date of Service: 07/02/24 MR#: [id number] Acct: [id number] Name: YODIT LANDIN VIVIAN Rep #: [id number] : 1955 Provider: KIZZY Hebert Age/Sex: 68/F Location: [facility] Status: Signed Intake Vital Signs 03/29/24 13:35 Height 5 ft 4 in Intake Visit Reasons: THORACIC SPINE Chief Complaint: post op Is patient in pain?: No Allergies codeine Adverse Reaction (Intermediate, Verified 07/02/24 11:28) Vomiting sulfamethoxazole (From Bactrim) Adverse Reaction (Intermediate, Verified 07/02/24 11:28) Vomiting trimethoprim (From Bactrim) Adverse Reaction (Intermediate, Verified 07/02/24 11:28) Vomiting Medications ???Medication ???Instructions ???Recorded ???Confirmed ???Type chlorthalidone 25 mg tablet 25 mg PO DAILY 01/16/24 07/02/24 H istory furosemide 20 mg tablet 20 mg PO DAILY 01/16/24 07/02/24 H istory irbesartan 300 mg tablet 300 mg PO DAILY 01/16/24 07/02/24 History levothyroxine 75 mcg capsule 150 mcg PO DAILY 01/16/24 07/02/24 History metformin 1,000 mg tablet 1,000 mg PO .QAM 01/16/24 07/02/24 History omega 1-ymj-pyk-fish oil 1,200 mg 1 cap PO DAILY 01/16/24 07/02/24 History (144 mg-216 mg) capsule (Fish Oil) omeprazole 40 mg capsule,delayed 40 mg PO QDAY 01/16/24 07/02/24 Hi story release vitamin E (dl, acetate) 180 mg 180 mg PO DAILY 01/16/24 07/02/24 History (400 unit) capsule digestive enzymes 1 tab PO TID 03/15/24 07/02/24 His tory ergocalciferol (vitamin D2) 1,250 1,250 mcg PO QWEEK 03/15/2407/02 History mcg (50,000 unit) capsule (Vitamin D2) metformin 500 mg tablet 500 mg PO .1500, 2100 03/15/2412/17 History vit A 750 mcg-vit C 150 mg-D3 1 cap PO TID 03/15/24 07/02/24 His tory 31.25 uud-uaha-dzkinetfp-quer cet capsule (Immune Essentials Daily) acetaminophen 500 mg tablet 500 mg PO Q6H #30 tabs 03/30/24 Rx atorvastatin 20 mg tablet 20 mg PO QDAY 07/02/24 07/02/24 Hi story fenofibrate 160 mg tablet 160 mg PO QDAY 07/02/24 07/02/24 H istory Have you fallen in the past year?: No PFSH Medical History Wears partial dentures Wears contact lenses Wears glasses Post-menopausal Thyroid disease Diabetes Arthritis High cholesterol Hemochromatosis Injury of head and neck Gastric reflux Former smoker History of pain when walking Hypertension History of echocardiogram Dehydration Nausea vomiting and diarrhea Surgical History History of surgery on right wrist Hx of repair of right rotator cuff History of 2 sections Hx of ovarian cystectomy Hx of hysterectomy Hx of tonsillectomy Social History Smoking Status: Former smoker HPI THORACIC SPINE Details: This documentation accurately reflects the service provided and the decisions made by me, KIZZY Hebert 07/02/24 1126. Part of today???s visit was documented by Trena Gurrola LPN, acting as scribe. YODIT LANDIN is a 68 year old F here today for 90 day post op L5-S1 MIS transforaminal lumbar interbody fusion DOS 11-4-24. She reports healing has been going well. She denies any back pain to day. She is hoping to have her restrictions lifted today, she bought a stationary bike and she would like to be able to start using it. She says that she is doing well after the surgery and that she has no pain. Says that her pain before surgery has completely resolved. She does say that she does have chronic neck pain that she has been dealing with and has right knee pain that she wishes to be seen for in the future. Patient denies any balance or dexterity issues. Ortho Exam General General: Yes no acute distress Neurologic: Yes alert and Yes oriented x3 Spine SPINE TESTING CERVICAL THORACIC LUMBAR Musculoskeletal Strength 0=absent - 5=normal Details: Physical examination show well healed back incisions. Neurological exam of the lower extremities shows 5x5 power. Normal sensations across all dermatomes. Coding Level of Care Code Off vis,est,level 3 Diagnoses S/P lumbar fusion Z98.1 Assessment and Plan Assessment and Plan (1) S/P lumbar fusion: Status: Acute Orders: Orders Lumbar Spine 2 or 3 Views Today Z98.1 - Arthrodesis status Plan Obtained and reviewed x-rays today with the patient. X-rays show hardware and bone graft in good position. Patient's x-rays also show degenerative changes throughout her lumbar back. Explained imaging findings in detail. At this time the patient is 3 months postop so she is clear of all restrictions. Encouraged the patient to ease into acti (more content not included)... Normal [facility] 29on 06-28-2024 29 Addended by: SEDRICK HEMPHILL on: 06/29/2024 06:05 PM Modules accepted: Level of Service [facility] 37on 06-28-[address] Morton about ortho specialist regarding the knee. May need ultrasound if getting injection in the knee. Normal [facility] Office Visiton 06-28-2024 Follow-up visit [id number] Juan Landin 1955 F Date Provider Department Center 06/28/2024 [id number] HEMPHILL [facility] Family History Problem Relation Age of Onset Ovarian cancer Mother Comments: 2000 Arthritis Father Hearing loss Father Stroke Father Prostate cancer Father Comments: 2001, recall ages Arthritis Brother Hearing loss Brother Hyperlipidemia Brother Prostate cancer Brother 71 Family Status - Relation Status Age at Mother Father Brother Level of Service:67907 [place] OFFICE/OUTPATIENT ESTABLISHED MOD MDM 30 MIN Reason for Visit and Comments: Follow-up [089059] Knee Pain [885806] [facility] Progress Noteon 06-28-2024 Progress Note Patient scheduled fo r lipid check next week. Continue fenofibrate 160 mg daily and atorvastatin 20 mg daily Normal [facility] Progress Note Discussed risks and benefits of corticosteroid joint injection. Patient would like to proceed. Joint Injection Procedure Note Indications and potential risks and complications of the procedure were explained to the patient. Patient was informed that there would be some pain associated with the procedure, and that the injection might not relieve the symptoms. In addition, possible side effects, including increased pain, infection, or bleeding could result from the injection. Patient also told that there are limitations on the frequency and amount of injections in any joint. Questions were answered and the patient agreed to the procedure. Sterile technique was employed. Prep: Betadine. 1 ml of Depo-Medrol (40 mg/ml) with 1 ml of 2% Lidocaine right knee using a 25 gauge 1.5 inch needle. Single attempt to inject the knee through the lateral lower point was unsuccessful. Provider met resistance and was unable to complete the injection. Needle was withdrawn, no medication was injected. Patient declined second attempt Recommend ultrasound guided joint injection if patient would like to proceed with joint injection. Band-Aid applied and instructions given. Patient told to use ice for worsening pain and avoid forceful or strenuous use of affected area for 1-2 weeks. Patient may take OTC analgesics or usual pain medication for further relief. Patient to let us know if she would like referral to sports medicine for further evaluation and possible corticosteroid injection (may need ultrasound) [facility] Progress Note Patient was identifi ed by name and Date of . [facility] Progress Note 06/28/2024 Yodit Landin (: 1955) is a 68 y.o. female , Established patient, here for evaluation of the following chief complaint(s): Follow-up and Knee Pain ASSESSMENT/PLAN: 1. Osteoarthritis of right knee, unspecified osteoarthritis type Assessment & Plan: Discussed risks and benefits of corticosteroid joint injection. Patient would like to proceed. Joint Injection Procedure Note Indications and potential risks and complications of the procedure were explained to the patient. Patient was informed that there would be some pain associated with the procedure, and that the injection might not relieve the symptoms. In addition, possible side effects, including increased pain, infection, or bleeding could result from the injection. Patient also told that there are limitations on the frequency and amount of injections in any joint. Questions were answered and the patient agreed to the procedure. Sterile technique was employed. Prep: Betadine. 1 ml of Depo-Medrol (40 mg/ml) with 1 ml of 2% Lidocaine right knee using a 25 gauge 1.5 inch needle. Single attempt to inject the knee through the lateral lower point was unsuccessful. Provider met resistance and was unable to complete the injection. Needle was withdrawn, no medication was injected. Patient declined second attempt Recommend ultrasound guided joint injection if patient would like to proceed with joint injection. Band-Aid applied and instructions given. Patient told to use ice for worsening pain and avoid forceful or strenuous use of affected area for 1-2 weeks. Patient may take OTC analgesics or usual pain medication for further relief. Patient to let us know if she would like referral to sports medicine for further evaluation and possible corticosteroid injection (may need ultrasound) 2. Pure hypercholesterolemia Assessment & Plan: Patient scheduled for lipid check next week. Continue fenofibrate 160 mg daily and atorvastatin 20 mg daily Follow up for with primary care provider as scheduled. SUBJECTIVE/OBJECTIVE: JAIME Landin (: 1955) is a 68 y.o. female , Established patient, here for the evaluation of the following chief complaint(s): Follow-up and Knee Pain Hyperlipidemia- needs lipids checked today. Atorvastatin was increased from 10 mg to 20 mg in 04/2024, fenofibrate 160 mg was then added in May. Right knee pain- xray showed mild degenerative changes. Denies any swelling. Has not had much improvement with it. Hurts to walk on it. Has been using topical muscle rub that helps some and acetaminophen at 1000 mg 2-3 times daily. Would like knee injection today. Getting over cold. Taking mucinex dm and reports getting better with time. Still has some congestion in the sinuses. States she does not really feel sick, no fever chills or significant cough Prior to Admission medications Medication Sig Start Date End Date Taking? Authorizing Provider omeprazole (PriLOSEC) [address] capsule TAKE 1 CAPSULE BY MOUTH IN THE MORNING BEFORE BREAKFAST 06/10/24 ASAF Ramos CNP acetaminophen (Tylenol) 500 MG tablet Take 500 mg by mouth in the morning and 500 mg in the evening. Historical Provider, atorvastatin (Lipitor) 20 MG tablet Take 1 tablet (20 mg) by mouth daily. 05/06/24 06/05/24 Moshe Key MD chlorthalidone (Hygroton) 25 MG tablet TAKE 1 TABLET BY MOUTH DAILY 05/03/24 ASAF Ramos CNP DIGESTIVE ENZYMES PO Take 175 mg by mouth in the morning and 175 mg at noon and 175 mg in the evening. Historical Provider, fenofibrate (Triglide) 160 MG tablet Take 1 tablet (160 mg) by mouth daily. 06/04/24 07/04/24 ASAF Jacinto CNP furosemide (Lasix) 20 MG tablet TAKE 1 TABLET BY MOUTH DAILY 12/29/23 Sedrick Bridenthal, SUPERVISOR HANGING AND TRIMMING - TECHNICAL SUPPORT ANALYST irbesartan (Avapro) 300 MG tablet TAKE 1 TABLET BY MOUTH DAILY 05/03/24 Sedrick Bridenthal, SUPERVISOR HANGING AND TRIMMING - TECHNICAL SUPPORT ANALYST levothyroxine (Synthroid, Levoxyl) 150 MCG tablet Take 1 tablet (150 mcg) by mouth every morning (before breakfast). 06/04/24 12/01/24 Jessica Smith APRN - TECHNICAL SUPPORT ANALYST metFORMIN (Glucophage) 1000 MG tablet TAKE 1 TABLET BY MOUTH IN THE MORNING AND 1 TABLET BY MOUTH IN THE EVENING TAKE WITH MEALS 06/02/24 Sedrick Bridenthal, SUPERVISOR HANGING AND TRIMMING - TECHNICAL SUPPORT ANALYST NON FORMULARY Gurmur 134 mg 2 tablets daily po Historical Provider, NON FORMULARY Cardio 450 mg daily po for heart health Historical Provider, NON FORMULARY 4Life Classic 600 mg 3 tablets daily po Historical Provider, nystatin (Mycostatin) cream APPLY TOPICALLY TWICE DAILY 06/10/24 Sedrick Bridenthal, SUPERVISOR HANGING AND TRIMMING - TECHNICAL SUPPORT ANALYST omega-3 (Fish Oil) 1200 MG capsule Take 1,200 mg by mouth daily. Historical Provider, Vitamin E 450 MG (1000 UT) capsule Take 450 mg by mouth daily. Historical Provider, Review of Systems Constitutional: Negative for activity change, chills, fatigue and fever. Respiratory: Negative. Cardiovascular: Negative. Musculoskeletal: Positive for arthralgias. Vitals: 06/28/24 093 (more content not included)... [facility] 36on 06-16-2024 36 Added. Pt aware. Normal [place] [address] Yes we can do it at that time- please add to the appt note [place] [address] Notified, asking if you can do this injection at her visit on 06/28/24. [place] [address] Reviewed knee xray. Shows mild osteoarthritis and some calcium deposits within the joint that are likely causing the pain. Recommend considering a corticosteroid knee injection (this can be done here or she can go and see ortho specialist for this) [place] [address] Received fax, placed in [employer]. [facility] 36on 06-15-2024 36 Faxed to stacie costello [place] [address] Name of caller: Juan salgado Contact phone number: [phone] Relationship to Patient: patient Provider: 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 Practice: [facility] Chief Complaint/Reason for Call: The patient states she got the knee xrays done at [facility] in [place]. Please advise Best time of day caller can be reached: Any Patient advised that office/PCP has 24-48 business hours to return their call: No [place] [address] Left a message to return call. CAC: If patient calls back please obtain where she got her knee xrays done at. [place] [address] We got a fax stating that there was no radiology report that they had for this. Will call Yodit and see where she got these done/when she got these done. [place] [address] Did we get these? [address] 06-14-2024 36 Called and spoke wit h [facility] medical records, they will be sending over x-ray results to us now. FYI [address] 06-10-2024 36 Prescription Request : Last medication check: 01/21/24 Last physical exam: 05/04/24 Next scheduled appointment: 06/28/24 Last date of refill on this medication 12/10/23 [place] [address] Prescription Request : Last medication check: 01/21/24 Last physical exam: 05/04/24 Next scheduled appointment: 06/28/24 Last date of refill on this medication Omeprazole 12/03/23, Vit D 01/16/[address] 06-08-2024 36 I have not received the xray results [place] [address] I had sent an MYRNA ov er to [facility]....have you gotten these yet? [address] 06-04-2024 36 Rx sent and future l ab orders signed. If her symptoms have started within the past 3 days it is most likely viral and an antibiotic is not warranted. All this will do is increase the risk of antibiotic resistance and/or a stool infection. I recommend she use saline nasal spray for congestion and increase oral fluids to keep mucous secretions moist. Sleeping with humidified air can be helpful as well. The typical duration of a virus is 10 days. Notify if symptoms worsen or fail to improve. Normal [facility] 36 Patient is agreeable , scheduled in 4 weeks, orders and med pended, pharmacy verified. Needs the 90 day supply of levothyroxine pended. She also c/o sinus congestion and sneezing since Friday, denies fever, only an occasional cough. Using mucinex DM and Cough DM, requesting an antibiotic, states she really doesn't want to come in for an appointment. Please advise. ----- Message from Moshe Key MD sent at 06/04/2024 8:30 AM EST ----- Cholesterol is good, triglycerides are high continue atorvastatin at current dose and start fenofibrate 160 mg daily very strict low-fat low-cholesterol low-carb diet and recheck in 4 weeks. Thyroid level is excellent continue current medication. Normal [facility] Progress Noteon 06-03-2024 Progress Note Venipuncture complet ed by [employer]. Normal [facility] 36on 06-02-2024 36 Sent MYRNA to [facility] to s end xray results. [place] [address] Reviewed chart. Refi ll appropriate. RX sent. Normal [facility] 36 Prescription Request : Last medication check: 01/21/24 Last physical exam: 05/04/24 Next scheduled appointment: 06/28/24 Last date of refill on this medication 03/25/24 90 day 1 refill [facility] PT D/C Summary (1)on 025 PT D/C Summary (1) [facility] [address] [place] [address] / REHABILITATION SERVICES DISCHARGE SUMMARY MR#: [id number] Acct: [id number] Name: YODIT LANDIN Rep #: [id number] : 1955 68 From: Barbra COCHRAN Referring Dr.: Dr. Arnold Morton MD Status: REG RCR Insurance: AARP [facility] ADV LIFE1 SELF PAY INSURANCE Discharge Summary D/C summary: It has been my pleasure to treat YODIT LANDIN referred by Dr. Arnold Morton MD, with the diagnosis of Spinal Fusion 03-29-24 for a total of 9 visit(s). Discharge Date: 05/14/24 Please see the following information for a summary of their discharge status. Subjective Subjective: Pt got a good report from the Dr. She feels that she is good to continue to do her exercises at home. They took x-rays and her back look good. She is able to bend at the waist but no twisting. She was hurting bad last time but the Dr stopped a drug for her arthritis that was affecting her kidneys so now she has some newer meds. She is off the cane unless she is in a lot of pain. She will talk to her Dr about another arthritis med. Pain Left Back: Pain Intensity (Out of 10): 8 L buttock pain: Pain Intensity (Out of 10): 8 Overall Improvement % Improvement: 100 Objective Objective/Function: Pt is doing well with her HEP and her pain control. Goals Goal 1:: Patient to be I with HEP for back Goal Progress: Goal Met Goal 2:: Patient to demonstrate 50% improvement with less pain and improved function Goal Progress: Goal Met Goal 3:: Patient to improve lumbar ROM for function of recovery to put on shoes Goal Progress: Goal Met Goal 4:: Be able to go up and down steps recip with a rail with no struggle Goal Progress: Goal Met Goal 5:: Abolish L buttock pain Goal Progress: Goal Met Plan Plan: DC PT to HEP D/C Information Discharge Comments: DC PT to HEP d/c sentence: If there are questions or concerns regarding this patient's physical therapy, please feel free to call me at [phone]. Thank you for the referral of this patient. Sincerely, Barbra Clifton, DIMAS Balance/Gait/Functional tests Balance/Special Test Scores Oswestry Low Back Score: 3 Dizziness Score: 0 Improvement % Improvement: 100 05/31/24 0932 CC: Dr. Arnold Morton MD; Dr. Moshe Key MD Signed [facility] 36on 05-25-2024 36 Noted. I think she i s referring to xray of knee at [facility]. Will just need to make sure we receive results later this week. Normal [facility] 36 Name of caller: juan salgado Contact phone number: [phone] Relationship to Patient: patient Provider: 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 Practice: [facility] Chief Complaint/Reason for Call: pt called in to let provider that she got labs done Best time of day caller can be reached: AM Patient advised that office/PCP has 24-48 business hours to return their call: Yes [facility] 37on 05-25-2024 37 Try the Voltaren cre am on joints. Ice and elevate right knee, try compression sleeve during the day. [facility] Office Visiton 05-25-2024 Follow-up visit [id number] Juan Landin 1955 F Date Provider Department Center 05/25/2024 [id number] HEMPHILL [facility] Family History Problem Relation Age of Onset Ovarian cancer Mother Comments: 2000 Arthritis Father Hearing loss Father Stroke Father Prostate cancer Father Comments: 2001, recall ages Arthritis Brother Hearing loss Brother Hyperlipidemia Brother Prostate cancer Brother 71 Family Status - Relation Status Age at Mother Father Brother Level of Service:95525 RI OFFICE/OUTPATIENT ESTABLISHED LOW MDM 20 MIN Reason for Visit and Comments: Knee Pain [002895] - Right-started a week ago [facility] Progress Noteon 05-25-2024 Progress Note Will obtain imaging due to history of osteoarthritis to evaluate status. Has been couple years since last imaging per patient. Recommend heather BLEDSOE to see chiropractor for knee, pending imaging results, consider PT and or referral to sports med [facility] Progress Note Patient was identifi ed by name and Date of . [facility] Progress Note 05/25/2024 Yodit Landin (: 1955) is a 68 y.o. female , Established patient, here for evaluation of the following chief complaint(s): Knee Pain (Right-started a week ago) ASSESSMENT/PLAN: 1. Acute pain of right knee Assessment & Plan: Will obtain imaging due to history of osteoarthritis to evaluate status. Has been couple years since last imaging per patient. Recommend heather BLEDSOE to see chiropractor for knee, pending imaging results, consider PT and or referral to sports med Orders: - XR knee 4+ views right Follow up for as directed pending test results. SUBJECTIVE/OBJECTIVE: HPI - Yodit Landin (: 1955) is a 68 y.o. female , Established patient, here for the evaluation of the following chief complaint(s): Knee Pain (Right-started a week ago) Patient states she was crossing her right leg over her left knee to put her shoe on about a week ago and when she went to put it back down she heard a crunching noise and immediately had some pain in the right knee. Denies any swelling. Has not had much improvement with it. Hurts to walk on it. Has been using topical muscle rub that helps some and acetaminophen at 1000 mg 2-3 times daily. States she does have arthritis in that knee but it has been quite sometime since she had any imaging of it. She also has seen a chiropractor for which she intends to go see later today for her knee. Prior to Admission medications Medication Sig Start Date End Date Taking? Authorizing Provider acetaminophen (Tylenol) 500 MG tablet Take 500 mg by mouth in the morning and 500 mg in the evening. Yes Historical Provider, atorvastatin (Lipitor) 20 MG tablet Take 1 tablet (20 mg) by mouth daily. 05/06/24 06/05/24 Yes Moshe Key MD chlorthalidone (Hygroton) 25 MG tablet TAKE 1 TABLET BY MOUTH DAILY 05/03/24 Yes ASAF Ramos CNP DIGESTIVE ENZYMES PO Take 175 mg by mouth in the morning and 175 mg at noon and 175 mg in the evening. Yes Historical Provider, furosemide (Lasix) 20 MG tablet TAKE 1 TABLET BY MOUTH DAILY 12/29/23 Yes ASAF Ramos CNP irbesartan (Avapro) 300 MG tablet TAKE 1 TABLET BY MOUTH DAILY 05/03/24 Yes ASAF Ramos CNP levothyroxine (Synthroid, Levoxyl) 150 MCG tablet Take 1 tablet (150 mcg) by mouth every morning (before breakfast). 05/06/24 06/05/24 Yes Moshe Key MD metFORMIN (Glucophage) 1000 MG tablet Take 1 tablet (1,000 mg) by mouth in the morning and 1 tablet (1,000 mg) in the evening. Take with meals. 03/25/24 Yes ASAF Ramos CNP NON FORMULARY Gurmur 134 mg 2 tablets daily po Yes Historical Provider, NON FORMULARY Cardio 450 mg daily po for heart health Yes Historical Provider, NON FORMULARY 4Life Classic 600 mg 3 tablets daily po Yes Historical Provider, nystatin (Mycostatin) cream Apply topically 2 times daily. 12/10/23 Yes Moshe Key MD omega-3 (Fish Oil) 1200 MG capsule Take 1,200 mg by mouth daily. Yes Historical Provider, omeprazole (PriLOSEC) [address] capsule Take 1 capsule (40 mg) by mouth every morning (before breakfast). 12/03/23 Yes ASAF Ramos CNP Vitamin E 450 MG (1000 UT) capsule Take 450 mg by mouth daily. Yes Historical Provider, Review of Systems Constitutional: Positive for activity change. Negative for chills, diaphoresis, fatigue and fever. Respiratory: Negative. Cardiovascular: Negative. Musculoskeletal: Positive for arthralgias (Right knee). Negative for back pain. Vitals: 05/25/24 1047 BP: 119/73 Pulse: 109 Resp: 20 Temp: 36.5 ?C (97.7 ?F) TempSrc: Infrared SpO2: 96% Weight: 201 lb 3.2 oz (91.3 kg) Physical Exam Constitutional: General: She is not in acute distress. Appearance: Normal appearance. She is not ill-appearing. Cardiovascular: Rate and Rhythm: Normal rate and regular rhythm. Pulses: Normal pulses. Heart sounds: Normal heart sounds. Pulmonary: Effort: Pulmonary effort is normal. Breath sounds: Normal breath sounds. Musculoskeletal: Right knee: Swelling and crepitus present. Decreased range of motion. Tenderness present over the lateral joint line. No patellar tendon tenderness. Normal alignment and normal patellar mobility. Left knee: Normal. Right lower leg: No edema. Left lower leg: No edema. Comments: Unable to perform stability tests d/t patient tolerability. Neurological: Mental Status: She is alert. An electronic signature was used to authenticate this note. ASAF Otoole CNP 05/25/2024 2:32 PM Normal [facility] XR KNEE THREE VIEWS RIGHTon 05-25-2024 XR KNEE THREE VIEWS RIGHT ORIGINAL EXAMINATION: THREE XRAY VIEWS OF THE RIGHT KNEE05/25/2024 12:29 pm KNEE 3 VIEWS RIGHT COMPARISON: None available HISTORY: ORDERING SYSTEM PROVIDED HISTORY: Reason for Exam: right knee pain FINDINGS: Mineralization and bony alignment are normal. There is no fracture or dislocation. No periosteal reaction. Osteophytes noted bilateral femoral condyles and the lateral tibial plateau. Chondrocalcinosis within the lateral joint space. There is no joint effusion. The soft tissues appear normal. IMPRESSION: No acute osseous injury. Mild degenerative changes. Interpreted by: Antonino Bazzi MD Preliminary Report By: Antonino Bazzi MD Electronically signed By Antonino Bazzi MD Dictated Date: 05/25/2024 9:33:27 PM Prelim Date: 05/25/2024 9:34:14 PM Sign Date: 05/25/2024 9:34:14 PM Ordering Provider: SEDRICK HEMPHILL [facility] 36on 05-24-2024 36 S: The patient is calling the [facility] about right knee pain B: This started a week ago today A: She has had some issues with this knee but no known injury. She was putting on her shoes and stood up and heard a sound (not a pop); there was extreme pain in the knee. The pain is not improved with time. She is using Lidocaine patches and arthritis cream as well as tylenol. These help but never completely alleviate the pain. No redness, open areas or swelling. R: Appointment made, insurance verified and care advice reviewed. Reason for Disposition MODERATE pain (e.g., symptoms interfere with work or school, limping) and present > 3 days Protocols used: Knee [id number]-CY [facility] PT D/C Summary (1)on 024 PT D/C Summary (1) [facility] [address] [place] [address] [address] [place] [address] / REHABILITATION SERVICES DISCHARGE SUMMARY MR#: [id number] Acct: [id number] Name: YODIT LANDIN Rep #: [id number] : 1955 68 From: Pa Flannery PT, Cert. T, [facility] Referring Dr.: Dr. Arnold Morton MD Status: REG RCR Insurance: AARP [facility] LIFE1 SELF PAY INSURANCE Discharge Summary D/C summary: It has been my pleasure to treat YODIT LANDIN referred by Dr. Arnold Morton MD, with the diagnosis of Spinal Fusion 03-29-24 for a total of 9 visit(s). Discharge Date: 05/14/24 Please see the following information for a summary of their discharge status. Subjective Subjective: Pt got a good report from the Dr. She feels that she is good to continue to do her exercises at home. They took x-rays and her back look good. She is able to bend at the waist but no twisting. She was hurting bad last time but the Dr stopped a drug for her arthritis that was affecting her kidneys so now she has some newer meds. She is off the cane unless she is in a lot of pain. She will talk to her Dr about another arthritis med. Pain Left Back: Pain Intensity (Out of 10): 8 L buttock pain: Pain Intensity (Out of 10): 8 Overall Improvement % Improvement: 100 Objective Objective/Function: Pt is doing well with her HEP and her pain control. Goals Goal 1:: Patient to be I with HEP for back Goal Progress: Goal Met Goal 2:: Patient to demonstrate 50% improvement with less pain and improved function Goal Progress: Goal Met Goal 3:: Patient to improve lumbar ROM for function of recovery to put on shoes Goal Progress: Goal Met Goal 4:: Be able to go up and down steps recip with a rail with no struggle Goal Progress: Goal Met Goal 5:: Abolish L buttock pain Goal Progress: Goal Met Plan Plan: DC PT to HEP D/C Information Discharge Comments: DC PT to HEP d/c sentence: If there are questions or concerns regarding this patient's physical therapy, please feel free to call me at [phone]. Thank you for the referral of this patient. Sincerely, Pa Flannery, PT, Cert MDT, OCS Balance/Gait/Functional tests Balance/Special Test Scores Oswestry Low Back Score: 3 Dizziness Score: 24 Improvement % Improvement: 100 05/21/24 1420 CC: Dr. Arnold Morton MD; Dr. Moshe Key MD JUANYStoney Signed Normal [facility] PT D/C Summary (1)on 024 PT D/C Summary (1) [facility] [address] [place] [address] / REHABILITATION SERVICES DISCHARGE SUMMARY MR#: [id number] Acct: [id number] Name: YODIT LANDIN Rep #: [id number] : 1955 68 From: Barbra COCHRAN Referring Dr.: Dr. Arnold Morton MD Status: REG RCR [facility] LIFE[facility] SELF PAY INSURANCE Discharge Summary D/C summary: It has been my pleasure to treat YODIT LANDIN referred by Dr. Arnold Morton MD, with the diagnosis of Spinal Fusion 03-29-24 for a total of 9 visit(s). Discharge Date: 05/14/24 Please see the following information for a summary of their discharge status. Subjective Subjective: Pt got a good report from the Dr. She feels that she is good to continue to do her exercises at home. They took x-rays and her back look good. She is able to bend at the waist but no twisting. She was hurting bad last time but the Dr stopped a drug for her arthritis that was affecting her kidneys so now she has some newer meds. She is off the cane unless she is in a lot of pain. She will talk to her Dr about another arthritis med. Pain Left Back: Pain Intensity (Out of 10): 8 L buttock pain: Pain Intensity (Out of 10): 8 Overall Improvement % Improvement: 100 Objective Objective/Function: Pt is doing well with her HEP and her pain control. Goals Goal 1:: Patient to be I with HEP for back Goal Progress: Goal Met Goal 2:: Patient to demonstrate 50% improvement with less pain and improved function Goal Progress: Goal Met Goal 3:: Patient to improve lumbar ROM for function of recovery to put on shoes Goal Progress: Goal Met Goal 4:: Be able to go up and down steps recip with a rail with no struggle Goal Progress: Goal Met Goal 5:: Abolish L buttock pain Goal Progress: Goal Met Plan Plan: DC PT to HEP D/C Information Discharge Comments: DC PT to HEP d/c sentence: If there are questions or concerns regarding this patient's physical therapy, please feel free to call me at [phone]. Thank you for the referral of this patient. Sincerely, Barbra Stoner, MPT Balance/Gait/Functional tests Balance/Special Test Scores Oswestry Low Back Score: 3 Dizziness Score: 24 Improvement % Improvement: 100 05/14/24 1155 CC: Dr. Arnold Morton MD; Dr. Moshe Key MD Signed Normal [facility] Lumbar Spine 2 or 3 Viewson 05-13-2024 Lumbar Spine 2 or 3 Views [facility] [address] [place] [address] Lumbar Spine 2 or 3 Views MR#: [id number] Acct: [id number] Name: YODIT LANDIN Rep #: [id number] : 1955 F 68 From: Fernando Leslie DO PCP: Dr. Moshe Key MD Status: DEP AMB Study: Lumbar Spine 2 or 3 Views Date of Exam: Exam# [id number] Ordering Dr: Enriqueta [place] [id number] STUDY: X-RAY - LUMBAR SPINE REASON FOR EXAM: Female, 68 years old. s/p fusion -- please do upright AP and LAT TECHNIQUE: 2 view(s) of the lumbar spine were obtained. COMPARISON: None FINDINGS: Slightly exaggerated lumbar lordosis. There is no substantial scoliosis. There is a normal alignment of the vertebrae. Normal vertebral bodies. Degenerative spurring of the lower thoracic and upper lumbar vertebral endplates. Surgical fusion at the lumbosacral junction. Normal disc space heights. Surgical clips in right upper quadrant. Calcified aorta. RAD/Lumbar Spine 2 or 3 Views IMPRESSION: No acute bony injury of the lumbar spine. Electronically Signed: Fernando Leslie DO at 20:50 EST Reading Location ID and State: [facility] / [place] Tel [phone], Service support , CC: KIZZY Hebert; Dr. Moshe Key MD Felt Cutter: Signed Normal [facility] Orthopedic Visit Reporton Orthopedic Visit Report [facility] [address] [place] [address] 5 [place] [address] OFFICE VISIT Date of Service: 05/13/24 MR#: [id number] Acct: [id number] Name: YODIT LANDIN Rep #: [id number] : 1955 Provider: KIZZY Hebert Age/Sex: 68/F Location: [facility] [place].JUAN Status: Signed Intake Vital Signs 02/05/24 16:00 03/29/24 13:35 Height 5 ft 3 in 5 ft 4 in Intake Visit Reasons: thoracic spine Chief Complaint: minimally invasive transforaminal lumbar interbody fusion L5-S1 Allergies codeine Adverse Reaction (Intermediate, Verified 05/13/24 13:42) Vomiting sulfamethoxazole (From Bactrim) Adverse Reaction (Intermediate, Verified 05/13/24 13:42) Vomiting trimethoprim (From Bactrim) Adverse Reaction (Intermediate, Verified 05/13/24 13:42) Vomiting Medications ???Medication ???Instructions ???Recorded ???Confirmed ???Type atorvastatin 10 mg tablet 10 mg PO DAILY 01/16/24 05/13/24 History chlorthalidone 25 mg tablet 25 mg PO DAILY 01/16/24 05/13/24 History furosemide 20 mg tablet 20 mg PO DAILY 01/16/24 05/13/24 History irbesartan 300 mg tablet 300 mg PO DAILY 01/16/24 05/13/24 History levothyroxine 75 mcg capsule 150 mcg PO DAILY 01/16/24 05/13/24 History metformin 1,000 mg tablet 1,000 mg PO .QAM 01/16/24 05/13/24 History omega 5-zzf-sfg-fish oil 1,200 mg 1 cap PO DAILY 01/16/24 05/13/24 History (144 mg-216 mg) capsule (Fish Oil) omeprazole 40 mg capsule,delayed 40 mg PO QDAY 01/16/24 05/13/24 History release vitamin E (dl, acetate) 180 mg 180 mg PO DAILY 01/16/24 05/13/24 History (400 unit) capsule digestive enzymes 1 tab PO TID 03/15/24 05/13/24 History ergocalciferol (vitamin D2) 1,250 1,250 mcg PO QWEEK 03/15/24 05/13/24 History mcg (50,000 unit) capsule (Vitamin D2) metformin 500 mg tablet 500 mg PO .1500, 2100 03/15/24 05/13/24 History phytosterol 400 mg tablet 400 mg PO DAILY 03/15/24 05/13/24 History vit A 750 mcg-vit C 150 mg-D3 1 cap PO TID 03/15/24 05/13/24 History 31.25 xkq-abbw-ynweajsqf-quer cet capsule (Immune Essentials Daily) acetaminophen 500 mg tablet 500 mg PO Q6H #30 tabs 03/30/24 05/13/24 Rx methocarbamol 500 mg tablet 750 mg (1.5 x 500 mg) PO TID PRN 03/30/24 05/13/24 Rx pain/spasms #30 tabs Have you fallen in the past year?: No PFSH Medical History Wears partial dentures Wears contact lenses Wears glasses Post-menopausal Thyroid disease Diabetes Arthritis High cholesterol Hemochromatosis Injury of head and neck Gastric reflux Former smoker History of pain when walking Hypertension History of echocardiogram Dehydration Nausea vomiting and diarrhea Surgical History History of surgery on right wrist Hx of repair of right rotator cuff History of 2 sections Hx of ovarian cystectomy Hx of hysterectomy Hx of tonsillectomy Social History Smoking Status: Former smoker HPI thoracic spine Details: This documentation accurately reflects the service provided and the decisions made by me, KIZZY Hebert 05/13/24 2249. Part of today???s visit was documented by Rachell HAYS, acting as scribe. YODIT LANDIN is a 68 year old F here today for 6 week post op, thoracic spine, dos 03/29/24. Patient states that she had recently had her shingles and tetanus vaccine and was having increased pain and also had a lump on her right arm that was red. The bump on her arm has now went down and she thinks her pain is just from her arthritis because her whole body has been hurting. Says that her back and leg pain she was having before the surgery has resolved. Her PCP also stopped her indomethacin which she thinks is also a part of why her she has been having pain. She did order some Tylenol arthritis to take for her arthritis and Voltaren gel. Ortho Exam General General: Yes no acute distress Neurologic: Yes alert and Yes oriented x3 Spine SPINE TESTING CERVICAL THORACIC LUMBAR Musculoskeletal Strength 0=absent - 5=normal Details: Physical examination show well healed back incisions. Neurological exam of the lower extremities shows 5x5 power. Normal sensations across all dermatomes. Coding Level of Care Code Global Post Op Diagnoses S/P lumbar fusion Z98.1 Assessment and Plan Assessment and Plan (1) S/P lumbar fusion: Status: Acute Orders: Orders Lumbar Spine 2 or 3 Views Today Z98.1 - Arthrodesis status Plan Obtained and reviewed xrays today with the patient. Xrays shows hardware and bone graft in good position. Patient is now 6 weeks post op L5-S1 fusion. She is doing well. She had a Shingrex and tetanus vaccine a week ago which caused signifi (more content not included)... Normal [facility] 36on 05-06-2024 36 Noted. thanks Normal [place] [address] Notified. She is goi ng to try this and stop taking the indomethacin. Normal [place] [id number] For right now she co uld take acetaminophen 1000 mg every 8 hours for her pain if needed Normal [place] [address] Notified, she states she would need something else for arthritis then because the 500mg tylenol she takes in the morning and in the evening is not helping and her left hand is in pain right now. She asked if this could be sent to [facility] since Dr. Key is gone for the day. Normal [place] [address] Rx sent, order christina d, indomethacin is still on her active medication list it was never stopped however that could be part of the reason why her kidney function looks the way it is because NSAIDs like indomethacin will affect the kidney function would recommend she only take that if absolutely necessary Normal [place] [address] Patient is agreeable , scheduled in 4 weeks, orders and med pended, pharmacy verified. She wants to know if you think she absolutely needs to see a kidney doctor or is there something she can do to improve kidney function? Would rather not go if not needed. She also states indomethacin 50mg was removed from her chart but she still takes it BID and would like it to be added back on. Normal [facility] 36 ----- Message from Moshe Key MD sent at 05/05/2024 12:49 PM EST ----- Blood sugar and chemistry are normal except kidney function is at a further slight decline would recommend a referral to nephrology/kidney doctor if she is not already seeing 1. Cholesterol total and bad are high, good is good and triglycerides are little high would recommend increasing a atorvastatin to 20 mg daily and recheck in 4 weeks. A1c is good at 6.8. CBC shows a slightly improved anemia, iron levels are normal. TSH is significantly high indicating thyroid level is too low, recommend increasing levothyroxine to 150 mcg. Needs recheck in 4 weeks Normal [facility] Initial Evaluation (2) - PTo n 05-05-2024 Initial Evaluation (2) - PT [facility] [address] [place] [address]. [address] [place] [address] / REHABILITATION SERVICES INITIAL EVALUATION MR#: [id number] Acct: [id number] Name: YODIT LANDIN Rep #: [id number] : 1955 68 From: Barbra COCHRAN Referring Dr.: Dr. Arnold Morton MD Status: REG RCR Insurance: [facility] LIFE1 SELF PAY INSURANCE Patient's Visit Information Visit Information Visit Information: YODIT LANDIN is a 68 year old F referred to Physical Therapy by Dr. Arnold Morton MD with a diagnosis of vertigo. Date of Evaluation: 05/05/24 Physical Therapist: DIMAS Alcantar Visit Plan Frequency: 2x /Week Duration: 2 Months Plan: Pt was negative for BPPV B, Still has dizziness when rising from supine to sit and looking up. Pt very tender and painful neck on the R side and suboccip area. 1. try and work with horizontal and then vertical head turns starting with small ROM and slow and progressing as able 2. when ready try some supine to sit transitions to habituate supine to sit starting with higher HOB and see effectivness 3. may try some MT to the c-spine and see if that contributes to some of her dizziness HEP: 45 degree seated horizontal head turns to tolerance and not to make her sick or feel dizzy after Subjective Subjective: Pt woke up this morning and has pain in mid thoracic and up to her neck. She feels like she could be sick or if she were to look up too fast she would throw up. She is not sure how long she spins for but she spins. Rolling to the R side she does not get dizzy. She prefers to sleep on her R side. If she rolls to her L side she gets dizzy. She has had treatment for BPPV before. They had to do it 2-3 times and it went away. She can not roll to the L in bed because she will get dizzy but not to the R. Objective Objective: - L HALLPIKE for nystagmus and dizziness but felt very nausea. Had increase head pressure and nausea but once up for awhile it subsided -R HALLPIKE for nystagmus and dizziness and no nausea BOTH time going to sit up she had nausea and head pressure Pt had increase tenderness to palpation along the upper occiput area and upper right sided c-spine paraspinals...like very tender even with light tough. Did very light sub occ release and slight distraction and pt had no dizziness and even a slight relief Neck rotation to R and L X 2 to each side at end range increase nausea Neck rotation X 1 to each side at 45 degrees and had increase nausea and warmth in her ears. Repeated this after resting 2 more times and got a little easier with less nausea and up to X 5 rotations. Seated chin tucks increased neck pain and had to stop. C-spine AROM: flex 100%, Ext to neutral (increase dizziness if goes farther), ROt B 75% with increase pain and dizziness Goals Goal 1:: I HEP Goal Time Frame: 6-8 Weeks Goal 2:: Pt will be able to sit up without having dizziness and nausea Goal Time Frame: 6-8 Weeks Goal 3:: Be able to stand and turn head X 30 seconds horizontal with no dizziness/ nausea Goal Time Frame: 6-8 Weeks Goal 4:: Be able to stand and turn head X 30 seconds vertical head turns with no dizziness/ nausea Goal Time Frame: 6-8 Weeks Rehabilitation Potential Rehabilitation Potential: Good Anticipated Interventions Patient/Client Instruction: Educate patient on: Condition For the Purpose of:: To increase tolerance to activity/condition/posi tion, To improve performance and independence with ADL's, To decrease level of supervision to perform tasks, To improve ability of physical actions for home/community/work/lei sure, To improve balance and To improve safety with gait Therapeutic Exercise to Include: Strength training, Endurance training, Balance training and Neuromotor development For the Purpose of:: To improve ability to perform ADL's, To increase tolerance to activity/condition/posi tion, To improve performance and independence with ADL's, To decrease level of supervision to perform tasks and To improve ability of physical actions for home/community/work/lei sure Functional Training to Include: Gait training For the Purpose of:: To improve gait and locomotor functions Manual Therapy Techniques to Include: Passive ROM and Soft tissue mobilization For the Purpose of:: To decrease pain, To increase ROM, To improve nutrient delivery to tissue and To improve muscle performance and motor function text: Thank you for the opportunity to evaluate your patient. For Medicare and Medicare HMO plans, please review the plan of care and approve it. It will need to be FAXED BACK to us at [phone] for Medicare purposes. For Medicare only, by signing this I certify the plan of care. Please let me know if there are questions or concerns regarding this plan of care. Physician Signature: (more content not included)... Normal [facility] Office Visiton 05-04-2024 Follow-up visit [id number] Juan Landin 1955 F Date Provider Department Center 05/04/2024 [id number] [facility] Family History Problem Relation Age of Onset Ovarian cancer Mother Comments: 2000 Arthritis Father Hearing loss Father Stroke Father Prostate cancer Father Comments: 2001, cant recall ages Arthritis Brother Hearing loss Brother Hyperlipidemia Brother Prostate cancer Brother 71 Family Status - Relation Status Age at Mother Father Brother Level of Service:G0439 RI PPPS, SUBSEQ VISIT Reason for Visit and Comments: Medicare Annual Wellness Visit Subsequent [677] Blood Work [254048] Health Maintenance [872] - Tdap vaccine- agree 2nd shingles vaccine- advised to go to pharmacy Dental exam- not done Eye exam- go to [facility] in [place] - will send for record Normal [facility] Progress Noteon 05-04-2024 Progress Note Controlled, continue metformin 1000 mg twice a day Orders: Comprehensive metabolic panel; Future Hemoglobin A1c; Future Comprehensive metabolic panel Hemoglobin A1c Normal [facility] Progress Note Patient verified by last name and date of . Normal [facility] Progress Note Controlled, continue atorvastatin 10 mg daily Orders: Lipid panel; Future Lipid panel Normal [facility] Progress Note Stable, recheck lab work today. Orders: CBC auto differential; Future Ferritin; Future Iron and TIBC; Future CBC auto differential Ferritin Iron and TIBC Normal [facility] Progress Note Initially elevated, recheck was normal, continue chlorthalidone 25 mg daily and irbesartan 300 mg daily Normal [facility] Progress Note [address] [address] Visit Type: Medicare Annual Wellness PCP: Moshe Key MD Reason for Visit: Medicare Annual Wellness Visit Subsequent, Blood Work, and Health Maintenance (Tdap vaccine- agree/2nd shingles vaccine- advised to go to pharmacy /Dental exam- not done/Eye exam- go to [facility] in [place] - will send for record ) Assessment and Plan Assessment & Plan Medicare annual wellness visit, subsequent Primary hypertension Initially elevated, recheck was normal, continue chlorthalidone 25 mg daily and irbesartan 300 mg daily Gastroesophageal reflux disease without esophagitis Stable, continue omeprazole 40 mg daily Hereditary hemochromatosis (HCC) Stable, recheck lab work today. Orders: CBC auto differential; Future Ferritin; Future Iron and TIBC; Future CBC auto differential Ferritin Iron and TIBC Acquired hypothyroidism Controlled, continue levothyroxine 100 mcg daily Orders: TSH; Future TSH Type 2 diabetes mellitus without complication, without long-term current use of insulin (CMS/HCC) (HCC) Controlled, continue metformin 1000 mg twice a day Orders: Comprehensive metabolic panel; Future Hemoglobin A1c; Future Comprehensive metabolic panel Hemoglobin A1c Pure hypercholesterolemia Controlled, continue atorvastatin 10 mg daily Orders: Lipid panel; Future Lipid panel Immunization due Orders: zoster vaccine-recombinant adjuvanted (Shingrix) 50 MCG/0.5ML vaccine; Inject 0.5 mL (50 mcg) into the shoulder, thigh, or buttocks Once for 1 dose. I have reviewed and reconciled the medication list with the patient today. Current Outpatient Medications Medication Sig Dispense Refill chlorthalidone (Hygroton) 25 MG tablet TAKE 1 TABLET BY MOUTH DAILY 90 tablet 1 irbesartan (Avapro) 300 MG tablet TAKE 1 TABLET BY MOUTH DAILY 90 tablet 1 acetaminophen (Tylenol) 500 MG tablet Take 500 mg by mouth in the morning and 500 mg in the evening. atorvastatin (Lipitor) 10 MG tablet Take 1 tablet (10 mg) by mouth daily. 90 tablet 1 DIGESTIVE ENZYMES PO Take 175 mg by mouth in the morning and 175 mg at noon and 175 mg in the evening. furosemide (Lasix) 20 MG tablet TAKE 1 TABLET BY MOUTH DAILY 100 tablet 2 levothyroxine (Synthroid, Levoxyl) 100 MCG tablet Take 1 tablet (100 mcg) by mouth every morning (before breakfast). 90 tablet 1 metFORMIN (Glucophage) 1000 MG tablet Take 1 tablet (1,000 mg) by mouth in the morning and 1 tablet (1,000 mg) in the evening. Take with meals. 180 tablet 1 NON FORMULARY Gurmur 134 mg 2 tablets daily po NON FORMULARY Cardio 450 mg daily po for heart health NON FORMULARY 4Life Classic 600 mg 3 tablets daily po nystatin (Mycostatin) cream Apply topically 2 times daily. 30 g 3 omega-3 (Fish Oil) 1200 MG capsule Take 1,200 mg by mouth daily. omeprazole (PriLOSEC) [address] capsule Take 1 capsule (40 mg) by mouth every morning (before breakfast). 90 capsule 1 Tdap (BoostRIX) 5-2.5-18.5 LF-MCG/0.5 injection Inject 0.5 mL into the shoulder, thigh, or buttocks Once for 1 dose. 0.5 mL 0 Vitamin E 450 MG (1000 UT) capsule Take 450 mg by mouth daily. zoster vaccine-recombinant adjuvanted (Shingrix) 50 MCG/0.5ML vaccine Inject 0.5 mL (50 mcg) into the shoulder, thigh, or buttocks Once for 1 dose. 0.5 mL 1 No current facility-administered medications for this visit. Medications Discontinued During This Encounter Medication Reason indomethacin (Indocin) 50 MG capsule Therapy completed cyanocobalamin (HM Vitamin B-12) 500 MCG tablet Therapy completed meclizine (Antivert) 25 MG tablet Therapy completed ferrous sulfate 325 (65 Fe) MG tablet Therapy completed zoster vaccine-recombinant adjuvanted (Shingrix) 50 MCG/0.5ML vaccine Reorder The following health maintenance schedule was reviewed with the patient and provided in printed form in the after visit summary: Health Maintenance Topic Date Due Bone Density Scan Never done DTaP/Tdap/Td Vaccines (1 - Tdap) Never done Zoster Vaccines (2 of 2) 02/19/2022 Diabetes: Retinopathy Screening 02/15/2024 Diabetes: Dental Exam 05/04/2025 (Originally 04/23/2023) Colorectal Cancer Screening 01/19/2027 (Originally 1955) Lipid Panel 05/07/2024 Diabetes: Hemoglobin A1C 08/26/2024 Diabetes: Estimated Glomerular Filtration Rate for Kidney Health 10/21/2024 Diabetes: Urine Albumin-Creatinine Ratio for Kidney Health 01/20/2025 Lung Cancer Screening 02/08/2025 TSH Level 02/11/2025 Mammogram 02/22/2025 Diabetes: Foot Exam 03/09/2025 Depression Screening 05/03/2025 RSV Immunization for Adults (1 - 1-dose 75+ series) 2029 Medicare Advantage Annual Wellness Visit Completed Hepatitis B Vaccines Completed Influenza Vaccine Completed Pneumococcal Vaccine: 65+ Years Completed Hepatitis C Screening Completed COVID-19 Vaccine Completed RSV Immunization under 20 Months Aged Out HIB Vaccines (more content not included)... Normal [facility] Progress Note Controlled, continue levothyroxine 100 mcg daily Orders: TSH; Future TSH Normal [facility] Progress Note Stable, continue omeprazole 40 mg daily [facility] 36on 05-03-2024 36 lm to pre-visit plan for appointment with Dr Key on 05/04/24 9:30. Please ask patient to arrive 15 minutes early with Photo ID, insurance card Fasting: yes Put call through to office for pvp [facility] 36 Prescription Request : Last medication check: 01/21/2024 Last physical exam: 04/23/2023 Next scheduled appointment: 05/04/2024 Last date of refill on this medication: 12/03/2023 [facility] 36on 04-19-2024 36 Faxed. Notified patient. Normal [facility] 36 Order placed for Vestibular therapy- please fax and notify patient Normal [facility] 36 Name of caller: Juan salgado Contact phone number: [phone] Relationship to Patient: patient Provider: Colin Practice: [facility] Chief Complaint/Reason for Call: Yodit called in stating that she had PT today for her back where they mentioned they can treat her for her back and vertigo at the same time as long as an order is sent. Yodit is requesting for [facility] to send an order for vertigo to Barbra Clifton at the [facility] PT department at fax [phone]. She stated she has PT appointments on s and . Please advise and notify the patient when this has been done. Best time of day caller can be reached: any Patient advised that office/PCP has 24-48 business hours to return their call: No Normal [facility] Re-Evaluation - PT (1)on Re-Evaluation - PT (1) [facility] [address] [place] [address]. [address] [place] [address] / REEVALUATION / MEDICARE RECERTIFICATION PHYSICAL THERAPY MR#: [id number] Acct: [id number] Name: YODIT LANDIN Rep #: [id number] : 1955 68 From: Barbra Clifton MPT Referring Dr.: Dr. Arnold Morton MD Status:REG RCR Insurance: [facility] ADV LIFE1 SELF PAY INSURANCE Re-Evaluation Intro: Dr. Arnold Morton MD, It has been my pleasure to treat YODIT LANDIN over the last 2 visits for Spinal Fusion 03-29-24. Please see the progress note below for an update on the physical therapy plan of care! Subjective Subjective: Pt had back surgery on 03-29-24. She had a spinal fusion on L5/S1 and she is feeling pretty good. She is walking with a cane now. She is driving. She is on no pain meds. She still struggles with steps putting weight on the L leg. Objective Objective/Function: Gait: walks with decrease stance time on the L LE and a cane LE MMT: B hip flex 4-/5 B knee ext 4/5 B knee flex 4/5 Bridge: increase back discomfort but easier at rep 5 than rep 1 Pelvic tilt... increase back discomfort Palpation of the L piriformis: tender... increase discomfort with stretching of the L piriformis Plan Plan Plan: Pt has a vertigo issue when sitting up... she will look into getting an order for this. 2X/ week for 4-8 weeks for neutral spine core stability, gait training, light stretching or MT to the L piriformis, gait training, steps, curb steps with HEP Restrictions: BLT Balance/Gait/Functional tests Balance/Special Test Scores Oswestry Low Back Score: 27 Goals Goals Goal 1:: Patient to be I with HEP for back Goal Time Frame: 4-6 Weeks Goal 2:: Patient to demonstrate 50% improvement with less pain and improved function Goal Time Frame: 4-6 Weeks Goal 3:: Patient to improve lumbar ROM for function of recovery to put on shoes Goal Time Frame: 4-6 Weeks Goal 4:: Be able to go up and down steps recip with a rail with no struggle Goal Time Frame: 4-6 Weeks Goal 5:: Abolish L buttock pain Goal Time Frame: 4-6 Weeks Anticipated Interventions Anticipated Interventions Patient/Client Instruction: Educate patient on: Condition and Plan of Care For the Purpose of:: To decrease pain, To increase ROM, To improve muscle performance and motor function, To improve ability to perform ADL's, To increase tolerance to activity/condition/posi tion, To improve ability of physical actions for home/community/work/lei sure, To improve gait and locomotor functions, To increase flexibility/ROM and To improve tolerance to ADL's Therapeutic Exercise to Include: Strength training, Body mechanics, Postural training, Flexibilty training and Dynamic Lumbar Stabilization For the Purpose of:: To decrease pain, To increase ROM, To improve muscle performance and motor function, To improve ability to perform ADL's, To increase tolerance to activity/condition/posi tion, To improve ability of physical actions for home/community/work/lei sure, To improve health of tissue, To decrease soft tissue restriction, To increase flexibility/ROM and To improve tolerance to ADL's TENS: Yes IF ES: Yes Cryotherapy (ice pack, ice massage): Yes Thermo therapy (hot pack): Yes Ultrasound (thermal/non thermal): Yes Re-Evaluation Ending Re-evaluation ending: Please do not hesitate to contact me at [phone] by phone or if you have questions or concerns regarding this new plan of care! Sincerely, Barbra Clifton, MPT 04/19/24 1206 CC: Dr. Arnold Morton MD; Dr. Moshe Key MD Signed For Medicare only, by signing this I certify the plan of care. Physicians Signature Date Normal [facility] Lumbar Spine 2 or 3 Viewson 04-15-2024 Lumbar Spine 2 or 3 Views [facility] [address] [place] [address] Lumbar Spine 2 or 3 Views MR#: [id number] Acct: [id number] Name: YODIT LANDIN VIVIAN Rep #: [id number] : 1955 F 68 From: Jef Menjivar MD PCP: Dr. Moshe Key MD Status: DEP AMB Study: Lumbar Spine 2 or 3 Views Date of Exam: Exam# [id number] Ordering Dr: [place] [id number] EXAM: XR LUMBOSACRAL SPINE, 2 OR 3 VIEWS CLINICAL INDICATION: s/p fusion -- please do upright AP and LAT TECHNIQUE: Frontal and lateral views of the lumbar spine and sacrum. COMPARISON: 03/30/2024 FINDINGS: VERTEBRAE: Unremarkable. Preserved vertebral body height. No fracture. No spondylolisthesis. Preservation of the normal lumbar lordosis. No significant facet arthropathy. DISC SPACES: Is a lateral clinical information posterior fusion of L5-S1 as well as a 1 cm in her body spacer. Hardware is in stable position from the reference exam. There is a severe degenerative changes the upper lumbar spine with disc space narrowing at T12-L1 and L1-2. These. GASTROINTESTINAL TRACT: Unremarkable as visualized. Included bowel gas pattern is non-obstructive. RAD/Lumbar Spine 2 or 3 Views IMPRESSION: Posterior fusion of L5-S1.There are no acute osseous abnormalities. There has been no change from the reference exam. Electronically Signed: Jef Menjivar MD at 0:10 EST , CC: KIZZY Hebert; Dr. Moshe Key MD Felt Cutter: Signed Normal [facility] Orthopedic Visit Reporton Orthopedic Visit Report [facility] [address] [place] [address] OFFICE VISIT Date of Service: 04/15/24 MR#: [id number] Acct: [id number] Name: YODIT LANDIN Rep #: [id number] : 1955 Provider: Dr. Arnold Morton MD Age/Sex: 68/F Location: [facility] [place] Status: Signed Intake Vital Signs 02/05/24 16:00 03/29/24 13:35 Height 5 ft 3 in 5 ft 4 in Intake Visit Reasons: thoracic spine Chief Complaint: minimally invasive transforaminal lumbar interbody fusion L5-S1 Allergies codeine Adverse Reaction (Intermediate, Verified 03/29/24 06:26) Vomiting sulfamethoxazole (From Bactrim) Adverse Reaction (Intermediate, Verified 03/29/24 06:26) Vomiting trimethoprim (From Bactrim) Adverse Reaction (Intermediate, Verified 03/29/24 06:26) Vomiting Medications ???Medication ???Instructions ???Recorded ???Confirmed ???Type atorvastatin 10 mg tablet 10 mg PO DAILY 01/16/24 04/15/24 History chlorthalidone 25 mg tablet 25 mg PO DAILY 01/16/24 04/15/24 History furosemide 20 mg tablet 20 mg PO DAILY 01/16/24 04/15/24 History indomethacin 50 mg capsule 50 mg PO 1700 01/16/24 04/15/24 History irbesartan 300 mg tablet 300 mg PO DAILY 01/16/24 04/15/24 History levothyroxine 75 mcg capsule 150 mcg PO DAILY 01/16/24 04/15/24 History metformin 1,000 mg tablet 1,000 mg PO .QAM 01/16/24 04/15/24 History omega 7-ztl-lwh-fish oil 1,200 mg 1 cap PO DAILY 01/16/24 04/15/24 History (144 mg-216 mg) capsule (Fish Oil) omeprazole 40 mg capsule,delayed 40 mg PO QDAY 01/16/24 04/15/24 History release vitamin E (dl, acetate) 180 mg 180 mg PO DAILY 01/16/24 04/15/24 History (400 unit) capsule digestive enzymes 1 tab PO TID 03/15/24 04/15/24 History ergocalciferol (vitamin D2) 1,250 1,250 mcg PO QWEEK 03/15/24 04/15/24 History mcg (50,000 unit) capsule (Vitamin D2) metformin 500 mg tablet 500 mg PO .1500, 2100 03/15/24 04/15/24 History phytosterol 400 mg tablet 400 mg PO DAILY 03/15/24 04/15/24 History vit A 750 mcg-vit C 150 mg-D3 1 cap PO TID 03/15/24 04/15/24 History 31.25 fpw-zbkp-lvwbeizah-quer cet capsule (Immune Essentials Daily) acetaminophen 500 mg tablet 500 mg PO Q6H #30 tabs 03/30/24 04/15/24 Rx methocarbamol 500 mg tablet 750 mg (1.5 x 500 mg) PO TID PRN 03/30/24 04/15/24 Rx pain/spasms #30 tabs Have you fallen in the past year?: No PFSH Medical History Wears partial dentures Wears contact lenses Wears glasses Post-menopausal Thyroid disease Diabetes Arthritis High cholesterol Hemochromatosis Injury of head and neck Gastric reflux Former smoker History of pain when walking Hypertension History of echocardiogram Dehydration Nausea vomiting and diarrhea Surgical History History of surgery on right wrist Hx of repair of right rotator cuff History of 2 sections Hx of ovarian cystectomy Hx of hysterectomy Hx of tonsillectomy Social History Smoking Status: Former smoker HPI thoracic spine Details: This documentation accurately reflects the service provided and the decisions made by me, Dr. Arnold Morton MD 04/15/24 1326. Part of today???s visit was documented by Rachell HAYS, acting as scribe. YODIT LANDIN is a 68 year old F here today for 2 week post op, thoracic spine, dos 03/29/24, L5-S1 MIS transforaminal lumbar interbody fusion. Patient is ambulating with a cane. She states that she is doing very well. She states that she has been having some pain of her left piriformis muscle. She states that she has been having very minimal pain and has been walking a lot after surgery. She is very happy with the surgery. Ortho Exam General General: Yes no acute distress Neurologic: Yes alert and Yes oriented x3 Spine SPINE TESTING CERVICAL THORACIC LUMBAR Musculoskeletal Strength 0=absent - 5=normal Details: Physical examination show well healing back incisions. She had the Tegaderm and gauze still intact that was placed after surgery. Tegaderm and gauze was removed. Neurological exam of the lower extremities shows 5x5 power. Normal sensations across all dermatomes. Coding Level of Care Code Global Post Op Diagnoses S/P lumbar fusion Z98.1 Assessment and Plan Assessment and Plan (1) S/P lumbar fusion: Status: Acute Orders: Orders Lumbar Spine 2 or 3 Views 04/15/24 Z98.1 - Arthrodesis status Plan Obtained and reviewed xrays today with the patient. Xrays shows hardware and bone graft in good position. She is now 2 weeks post op L5-S1 TLIF. She is doing well with her pain well managed. She starts outpatient physical therapy on Friday. Continue no bending, lifting, (more content not included)... Normal [facility] Basic Metabolic Profile (BMP )on 03-30-2024 BUN/CRE 15.1 RATIO Normal - [facility] Comment on above: Performed By: #### L 100.0500, L500.2500 #### [facility] [address] [place], [address] CA,Total 8.5 mg/dL Normal 8.5-10.1 [facility] Comment on above: Performed By: #### L 100.0500,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 correlation is essential. Serum or plasma urea nitroge n measurement (mass/volume)Ordered By: Juan Jose Stallworth on 07-01-2023 Urea nitrogen [Mass/Vol] 37 mg/dL 7-18 [facility] Squamous epithelial cells de tection in urine sediment by light microscopyOrdered By: Juan Jose Stallworth on 07-01-2023 Epithelial cells.squamous LM Ql (Urine sed) 0-5 SEEN /hpf 5-10 [facility] Thin prep Papanicolaou smear with manual screeningOrdered By: Juan Jose Stallworth on 07-01-2023 Thin prep Papanicolaou smear with manual screening 7 5-15 [facility] Urine blood detectionOrdered By: Juan Jose Stallworth on 07-01-2023 RBC Ql (U) Negative Negative [facility] Urine clarityOrdered By: Reyes Stallworth on 07-01-2023 Clarity (U) Sl. Cloudy Clear [facility] Urine color determinationOrd ered By: Juan Jose Stallworth on 07-01-2023 Color (U) Yellow Yellow [facility] Urine glucose detectionOrder ed By: Juan Jose Stallworth on 07-01-2023 Glucose Ql (U) Normal mg/dl Normal [facility] Urine leukocyte esterase det ection by dipstickOrdered By: Juan Jose Stallworth on 07-01-2023 Leukocyte esterase Test strip Ql (U) 100 /ul Negative [facility] Urine pHOrdered By: Juan Jose randhawa on 07-01-2023 pH (U) 5.0 [pH] 5.0 - 8.0 [facility] Urine sediment bacteria coun t by microscopy (number/high power field)Ordered By: Juan Jose Stallworth on 07-01-2023 Bacteria LM.HPF (Urine sed) [#/Area] 0 /[HPF] None Seen [facility] Urine specific gravity measu rementOrdered By: Juan Jose Stallworth on 07-01-2023 Specific gravity (U) [Rel density] 1.020 1.002-1.030 [facility] Urine urobilinogen measureme ntOrdered By: Juan Jose Stallworth on 07-01-2023 Urobilinogen Ql (U) 4 mg/dl Normal [facility] XR WRIST MINIMUM 3 VIEWS RIG HTon 06-07-2023 XR WRIST MINIMUM 3 VIEWS RIGHT ORIGINAL EXAMINATION: THREE XRAY VIEWS OF THE RIGHT WRIST06/05/2023 10:42 am COMPARISON: None HISTORY: ORDERING SYSTEM PROVIDED HISTORY: Reason for Exam: mass on right wrist FINDINGS: Chondrocalcinosis noted. There is a corticated ossicle near the ulnar styloid. Areas of joint space loss seen in the intercarpal joint spaces. Vascular calcifications noted. No acute fracture or dislocation is identified. The joint spaces are maintained. There is no radiopaque foreign body. IMPRESSION: No bony neoplasm is identified. With concern for a soft tissue mass, MRI advised Chondrocalcinosis and degenerative changes Interpreted by: Mark Robles MD Preliminary Report By: Mark Robles MD Electronically signed By Mark Robles MD Dictated Date: 06/07/2023 7:20:49 AM Prelim Date: 06/07/2023 7:22:26 AM Sign Date: 06/07/2023 7:22:26 AM Ordering Provider: SEDRICK HEMPHILL [facility] ([place]) Vital Signs Date Time Vital Sign Value Performing Clinician Facility 06-28-2024 10:00-0500 Diastolic blood pressure 81 mm[Hg] 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 [employer]PER[employer] - TECHNICAL SUPPORT ANALYST Work Phone: [facility] 06-28-2024 10:00-0500 Systolic blood pressure 140 mm[Hg] 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 SUPERVISOR [employer] - TECHNICAL SUPPORT ANALYST Work Phone: [facility] 06-28-2024 09:30-0500 Body mass index (BMI) [Ratio] 35.95 kg/m2 Sedrick Bridenthal [employer]PER[employer] - TECHNICAL SUPPORT ANALYST Work Phone: [facility] 06-28-2024 09:30-0500 Body weight 93.53 kg Sedrick Bridenthal SUPERVISOR [employer] - TECHNICAL SUPPORT ANALYST Work Phone: [facility] 06-28-2024 09:30-0500 Heart rate 83 /min Sedrick Bridenthal SUPERVISOR [employer] - TECHNICAL SUPPORT ANALYST Work Phone: [facility] 06-28-2024 09:30-0500 Respiratory rate 24 /min Sedrick Bridenthal SUPERVISOR [employer] - TECHNICAL SUPPORT ANALYST Work Phone: [facility] 06-28-2024 09:30-0500 SaO2% (BldA) [Mass fraction] 98 % Sedrick Bridenthal [employer]PER[employer] - TECHNICAL SUPPORT ANALYST Work Phone: [facility] 05-25-2024 10:47-0500 Body mass index (BMI) [Ratio] 35.08 kg/m2 Sedrick Bridenthal [employer]PER[employer] - TECHNICAL SUPPORT ANALYST Work Phone: [facility] 05-25-2024 10:47-0500 Body temperature 97.7 [degF] Sedrick Bridenthal SUPERVISOR [employer] - TECHNICAL SUPPORT ANALYST Work Phone: [facility] 05-25-2024 10:47-0500 Body weight 91.26 kg Sedrick Bridenthal SUPERVISOR [employer] - TECHNICAL SUPPORT ANALYST Work Phone: [facility] 05-25-2024 10:47-0500 Diastolic blood pressure 73 mm[Hg] Sedrick Bridenthal SUPERVISOR [employer] - TECHNICAL SUPPORT ANALYST Work Phone: [facility] 05-25-2024 10:47-0500 Heart rate 109 /min Sedrick Bridenthal SUPERVISOR [employer] - TECHNICAL SUPPORT ANALYST Work Phone: [facility] 05-25-2024 10:47-0500 Respiratory rate 20 /min Sedrick Bridenthal SUPERVISOR [employer] - TECHNICAL SUPPORT ANALYST Work Phone: [facility] 05-25-2024 10:47-0500 SaO2% (BldA) [Mass fraction] 96 % Sedrick Bridenthal SUPERVISOR [employer] - TECHNICAL SUPPORT ANALYST Work Phone: [facility] 05-25-2024 10:47-0500 Systolic blood pressure 119 mm[Hg] Sedrick Bridenthal SUPERVISOR [employer] - TECHNICAL SUPPORT ANALYST Work Phone: [facility] 05-04-2024 09:49-0500 Diastolic blood pressure 79 mm[Hg] Moshe Key MD Work Phone: [facility] 05-04-2024 09:49-0500 Heart rate 78 /min Moshe Key MD Work Phone: [facility] 05-04-2024 09:49-0500 Systolic blood pressure 134 mm[Hg] Moshe Key MD Work Phone: [facility] 05-04-2024 09:13-0500 Body height 161.3 cm Moshe Key MD Work Phone: [facility] 05-04-2024 09:13-0500 Body mass index (BMI) [Ratio] 35.61 kg/m2 Moshe Key MD Work Phone: [facility] 05-04-2024 09:13-0500 Body weight 92.63 kg Moshe Key MD Work Phone: [facility] 05-04-2024 09:13-0500 SaO2% (BldA) [Mass fraction] 96 % Moshe Key MD Work Phone: [facility] 03-09-2024 11:10-0400 Heart rate 76 /min Sedrick Bridenthal SUPERVISOR [employer] - TECHNICAL SUPPORT ANALYST Work Phone: [facility] Comment on above: apical 03-09-2024 10:57-0400 Body height 161.3 cm Sedrick Bridenthal SUPERVISOR [employer] - TECHNICAL SUPPORT ANALYST Work Phone: [facility] 03-09-2024 10:57-0400 Body mass index (BMI) [Ratio] 35.33 kg/m2 Sedrick Karrieenthal SUPERVISOR [employer] - TECHNICAL SUPPORT ANALYST Work Phone: [facility] 03-09-2024 10:57-0400 Body temperature 98.01 [degF] Sedrick Bridenthal SUPERVISOR [employer] - TECHNICAL SUPPORT ANALYST Work Phone: [facility] 03-09-2024 10:57-0400 Body weight 91.9 kg Sedrick Bridenthal SUPERVISOR [employer] - TECHNICAL SUPPORT ANALYST Work Phone: [facility] 03-09-2024 10:57-0400 Diastolic blood pressure 76 mm[Hg] Sedrick Bridenthal SUPERVISOR [employer] - TECHNICAL SUPPORT ANALYST Work Phone: [facility] 03-09-2024 10:57-0400 Respiratory rate 18 /min Sedrick Bridenthal SUPERVISOR [employer] - TECHNICAL SUPPORT ANALYST Work Phone: [facility] 03-09-2024 10:57-0400 SaO2% (BldA) [Mass fraction] 97 % Sedrick Bridenthal SUPERVISOR [employer] - TECHNICAL SUPPORT ANALYST Work Phone: [facility] 03-09-2024 10:57-0400 Systolic blood pressure 146 mm[Hg] Sedrick Bridenthal SUPERVISOR [employer] - TECHNICAL SUPPORT ANALYST Work Phone: [facility] 02-23-2024 11:17-0400 Body height 161.3 cm Sedrick Bridenthal SUPERVISOR [employer] - TECHNICAL SUPPORT ANALYST Work Phone: [facility] 02-23-2024 11:17-0400 Body mass index (BMI) [Ratio] 34 kg/m2 Sedrick Bridenthal SUPERVISOR [employer] - TECHNICAL SUPPORT ANALYST Work Phone: [facility] 02-23-2024 11:17-0400 Body weight 88.45 kg Sedrick Bridenthal SUPERVISOR [employer] - TECHNICAL SUPPORT ANALYST Work Phone: [facility] 02-12-2024 14:31-0400 Body height 160 cm Sedrick Bridenthal SUPERVISOR [employer] - TECHNICAL SUPPORT ANALYST Work Phone: [facility] 02-12-2024 14:31-0400 Body mass index (BMI) [Ratio] 35.78 kg/m2 Sedrick Bridenthal SUPERVISOR [employer] - TECHNICAL SUPPORT ANALYST Work Phone: [facility] 02-12-2024 14:31-0400 Body weight 91.63 kg Sedrick Bridenthal SUPERVISOR [employer] - TECHNICAL SUPPORT ANALYST Work Phone: [facility] 01-21-2024 11:19-0400 Diastolic blood pressure 80 mm[Hg] Sedrick Bridenthal SUPERVISOR [employer] - TECHNICAL SUPPORT ANALYST Work Phone: [facility] 01-21-2024 11:19-0400 Systolic blood pressure 146 mm[Hg] Sedrick Bridenthal SUPERVISOR [employer] - TECHNICAL SUPPORT ANALYST Work Phone: [facility] 01-21-2024 10:18-0400 Body mass index (BMI) [Ratio] 35.92 kg/m2 Sedrick Bridenthal SUPERVISOR [employer] - TECHNICAL SUPPORT ANALYST Work Phone: [facility] 01-21-2024 10:18-0400 Body temperature 98.29 [degF] Sedrick Bridenthal SUPERVISOR [employer] - TECHNICAL SUPPORT ANALYST Work Phone: [facility] 01-21-2024 10:18-0400 Body weight 91.99 kg Sedrick Bridenthal SUPERVISOR [employer] - TECHNICAL SUPPORT ANALYST Work Phone: [facility] 01-21-2024 10:18-0400 Heart rate 101 /min Sedrick Bridenthal SUPERVISOR [employer] - TECHNICAL SUPPORT ANALYST Work Phone: [facility] 01-21-2024 10:18-0400 Respiratory rate 20 /min Sedrick Bridenthal SUPERVISOR [employer] - TECHNICAL SUPPORT ANALYST Work Phone: [facility] 01-21-2024 10:18-0400 SaO2% (BldA) [Mass fraction] 97 % Sedrick Bridenthal SUPERVISOR [employer] - TECHNICAL SUPPORT ANALYST Work Phone: [facility] 12-01-2023 09:29-0400 Diastolic blood pressure 80 mm[Hg] Sedrick Bridenthal SUPERVISOR [employer] - TECHNICAL SUPPORT ANALYST Work Phone: [facility] 12-01-2023 09:29-0400 Heart rate 64 /min Sedrick Karrieenthal SUPERVISOR [employer] - TECHNICAL SUPPORT ANALYST Work Phone: [facility] 12-01-2023 09:29-0400 Systolic blood pressure 133 mm[Hg] Sedrick Bridenthal SUPERVISOR [employer] - TECHNICAL SUPPORT ANALYST Work Phone: [facility] 12-01-2023 09:03-0400 Body height 160 cm Sedrick Bridenthal SUPERVISOR [employer] - TECHNICAL SUPPORT ANALYST Work Phone: [facility] 12-01-2023 09:03-0400 Body mass index (BMI) [Ratio] 35.39 kg/m2 Sedrick Bridenthal SUPERVISOR [employer] - TECHNICAL SUPPORT ANALYST Work Phone: [facility] 12-01-2023 09:03-0400 Body weight 90.63 kg Sedrick Bridenthal SUPERVISOR [employer] - TECHNICAL SUPPORT ANALYST Work Phone: [facility] 12-01-2023 09:03-0400 SaO2% (BldA) [Mass fraction] 96 % Sedrick Karrieenthal SUPERVISOR [employer] - TECHNICAL SUPPORT ANALYST Work Phone: [facility] 11-25-2023 13:02-0400 Body height 160 cm Nadya Biro PA-C Work Phone: [facility] 11-25-2023 13:02-0400 Body mass index (BMI) [Ratio] 35.78 kg/m2 Nadya Biro PA-C Work Phone: [facility] 11-25-2023 13:02-0400 Body weight 91.63 kg Nadya Biro PA-C Work Phone: [facility] 11-25-2023 13:02-0400 Diastolic blood pressure 66 mm[Hg] Nadya Biro PA-C Work Phone: [facility] 11-25-2023 13:02-0400 Systolic blood pressure 128 mm[Hg] Nadya Biro PA-C Work Phone: [facility] 10-22-2023 10:16-0400 Body mass index (BMI) [Ratio] 35.89 kg/m2 Sedrick Bridenthal SUPERVISOR [employer] - TECHNICAL SUPPORT ANALYST Work Phone: [facility] 10-22-2023 10:16-0400 Body temperature 98.4 [degF] Sedrick Bridenthal SUPERVISOR [employer] - TECHNICAL SUPPORT ANALYST Work Phone: [facility] 10-22-2023 10:16-0400 Body weight 91.9 kg Sedrick Bridenthal SUPERVISOR [employer] - TECHNICAL SUPPORT ANALYST Work Phone: [facility] 10-22-2023 10:16-0400 Diastolic blood pressure 59 mm[Hg] Sedrick Bridenthal SUPERVISOR [employer] - TECHNICAL SUPPORT ANALYST Work Phone: [facility] 10-22-2023 10:16-0400 Heart rate 65 /min Sedrick Bridenthal SUPERVISOR [employer] - TECHNICAL SUPPORT ANALYST Work Phone: [facility] 10-22-2023 10:16-0400 Respiratory rate 18 /min Sedrick Bridenthal SUPERVISOR [employer] - TECHNICAL SUPPORT ANALYST Work Phone: [facility] 10-22-2023 10:16-0400 SaO2% (BldA) [Mass fraction] 96 % Sedrick Bridenthal SUPERVISOR [employer] - TECHNICAL SUPPORT ANALYST Work Phone: [facility] 10-22-2023 10:16-0400 Systolic blood pressure 139 mm[Hg] Sedrick Bridenthal SUPERVISOR [employer] - TECHNICAL SUPPORT ANALYST Work Phone: [facility] 10-14-2023 12:57-0400 Body height 160 cm Nadya Biro PA-C Work Phone: [facility] 10-14-2023 12:57-0400 Body mass index (BMI) [Ratio] 35.43 kg/m2 Nadya Biro PA-C Work Phone: [facility] 10-14-2023 12:57-0400 Body weight 90.72 kg Nadya Biro PA-C Work Phone: [facility] 10-14-2023 12:57-0400 Diastolic blood pressure 78 mm[Hg] Nadya Biro PA-C Work Phone: [facility] 10-14-2023 12:57-0400 Systolic blood pressure 122 mm[Hg] Nadya Biro PA-C Work Phone: [facility] 09-16-2023 12:49-0400 Body height 160 cm Nadya Biro PA-C Work Phone: [facility] 09-16-2023 12:49-0400 Body mass index (BMI) [Ratio] 35.43 kg/m2 Nadya Biro PA-C Work Phone: [facility] 09-16-2023 12:49-0400 Body weight 90.72 kg Nadya Biro PA-C Work Phone: [facility] 09-16-2023 12:49-0400 Diastolic blood pressure 74 mm[Hg] Nadya Biro PA-C Work Phone: [facility] 09-16-2023 12:49-0400 Systolic blood pressure 126 mm[Hg] Nadya Biro PA-C Work Phone: [facility] [employer] 09-04-2023 10:18-0400 Body height 160 cm Sedrick Bridenthal SUPERVISOR [employer] - TECHNICAL SUPPORT ANALYST Work Phone: [facility] 09-04-2023 10:18-0400 Body mass index (BMI) [Ratio] 36.67 kg/m2 Sedrick Bridenthal SUPERVISOR [employer]ANGING [employer]IMMING - TECHNICAL SUPPORT ANALYST Work Phone: [facility] 09-04-2023 10:18-0400 Body weight 93.89 kg Sedrick Bridenthal SUPERVISOR [employer]ANGING [employer]IMMING - TECHNICAL SUPPORT ANALYST Work Phone: [facility] 09-04-2023 10:18-0400 Diastolic blood pressure 74 mm[Hg] Sedrick Bridenthal SUPERVISOR [employer]ANG[employer] - TECHNICAL SUPPORT ANALYST Work Phone: [facility] 09-04-2023 10:18-0400 Heart rate 82 /min Sedrick Bridenthal SUPERVISOR [employer]ANG[employer] - TECHNICAL SUPPORT ANALYST Work Phone: [facility] 09-04-2023 10:18-0400 SaO2% (BldA) [Mass fraction] 94 % Sedrick Bridchristina SUPERVISOR [employer]ING [employer]MING - TECHNICAL SUPPORT ANALYST Work Phone: [facility] 09-04-2023 10:18-0400 Systolic blood pressure 123 mm[Hg] 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 SUPERVISOR [employer]ANGING [employer]IMMING - TECHNICAL SUPPORT ANALYST Work Phone: [facility] 09-03-2023 10:55-0400 Heart rate 74 /min Austin Leos MD Work Phone: [facility] 09-03-2023 10:55-0400 SaO2% (BldA) [Mass fraction] 98 % Austin Leos MD Work Phone: [facility] 09-03-2023 10:45-0400 Diastolic blood pressure 56 mm[Hg] Austin Leos MD Work Phone: [facility] 09-03-2023 10:45-0400 Systolic blood pressure 101 mm[Hg] Austin Leos MD Work Phone: [facility] 09-03-2023 10:35-0400 Respiratory rate 16 /min Austin Leos MD Work Phone: [facility] 09-03-2023 07:56-0400 Body height 160 cm Austin Leos MD Work Phone: [facility] 09-03-2023 07:56-0400 Body mass index (BMI) [Ratio] 35.43 kg/m2 Austin Leos MD Work Phone: [facility] 09-03-2023 07:56-0400 Body temperature 97.81 [degF] Austin Leos MD Work Phone: [facility] 09-03-2023 07:56-0400 Body weight 90.72 kg Austin Leos MD Work Phone: [facility] 08-05-2023 13:04-0400 Body height 161.3 cm Austin Leos MD Work Phone: [facility] 08-05-2023 13:04-0400 Body mass index (BMI) [Ratio] 33.83 kg/m2 Austin Leos MD Work Phone: [facility] 08-05-2023 13:04-0400 Body weight 88 kg Austin Leos MD Work Phone: [facility] 08-05-2023 13:04-0400 Diastolic blood pressure 68 mm[Hg] Austin Leos MD Work Phone: [facility] 08-05-2023 13:04-0400 Systolic blood pressure 104 mm[Hg] Austin Leos MD Work Phone: [facility] 07-24-2023 10:02-0500 Body mass index (BMI) [Ratio] 34.39 kg/m2 Sedrick Bridenthal SUPERVISOR [employer]ANG[employer] - TECHNICAL SUPPORT ANALYST Work Phone: [facility] 07-24-2023 10:02-0500 Body temperature 98.2 [degF] Sedrick Bridenthal SUPERVISOR HANGING [employer]MING - TECHNICAL SUPPORT ANALYST Work Phone: [facility] 07-24-2023 10:02-0500 Body weight 90.27 kg Sedrick Bridenthal SUPERVISOR HANGING [employer]MING - TECHNICAL SUPPORT ANALYST Work Phone: [employer] 07-24-2023 10:02-0500 Diastolic blood pressure 60 mm[Hg] Sedrick Bridenthal SUPERVISOR HANGING [employer]IMMING - TECHNICAL SUPPORT ANALYST Work Phone: [facility] 07-24-2023 10:02-0500 Heart rate 50 /min Sedrick Bridenthal SUPERVISOR HANGING [employer]IMMING - TECHNICAL SUPPORT ANALYST Work Phone: [facility] 07-24-2023 10:02-0500 Respiratory rate 24 /min Sedrick Bridenthal SUPERVISOR HANGING [employer]IMMING - TECHNICAL SUPPORT ANALYST Work Phone: [employer] 07-24-2023 10:02-0500 SaO2% (BldA) [Mass fraction] 99 % Sedrick Bridenthal SUPERVISOR HANGING [employer]MING - TECHNICAL SUPPORT ANALYST Work Phone: [facility] 07-24-2023 10:02-0500 Systolic blood pressure 96 mm[Hg] Sedrick Bridenthal SUPERVISOR HANGING [employer]MING - TECHNICAL SUPPORT ANALYST Work Phone: [facility] 07-01-2023 20:00-0500 Diastolic blood pressure 74 mm[Hg] PA Gerry Gray PA Work Phone: [facility] 07-01-2023 20:00-0500 Heart rate 72 /min PA Gerry Gray PA Work Phone: [facility] 07-01-2023 20:00-0500 Respiratory rate 16 /min PA Gerry Gray PA Work Phone: [facility] 07-01-2023 20:00-0500 SaO2% (BldA) [Mass fraction] 98 % PA Gerry Gray PA Work Phone: [facility] 07-01-2023 20:00-0500 Systolic blood pressure 116 mm[Hg] PA Gerry Gray PA Work Phone: [facility] 07-01-2023 17:47-0500 Body height 160.02 cm PA Gerry Gray PA Work Phone: [facility] 07-01-2023 17:47-0500 Body mass index (BMI) [Ratio] 26.3 kg/m2 PA Gerry Gray PA Work Phone: [facility] 07-01-2023 17:47-0500 Body temperature 96.7 [degF] PA Gerry Gray PA Work Phone: [facility] 07-01-2023 17:47-0500 Body weight 67.44 kg PA Gerry Gray PA Work Phone: [facility] 07-01-2023 17:03-0500 Body mass index (BMI) [Ratio] 34.3 kg/m2 PA Gerry Gray PA Work Phone: [facility] 07-01-2023 17:03-0500 Body temperature 98.2 [degF] PA Gerry Gray PA Work Phone: [facility] 07-01-2023 17:03-0500 Body weight 87.99 kg PA Gerry Gray PA Work Phone: [facility] 07-01-2023 17:03-0500 Diastolic blood pressure 82 mm[Hg] PA Gerry DURAND Work Phone: [facility] 07-01-2023 17:03-0500 Heart rate 98 /min PA Gerry DURAND Work Phone: [facility] 07-01-2023 17:03-0500 Respiratory rate 14 /min PA Gerry DURAND Work Phone: [facility] 07-01-2023 17:03-0500 SaO2% (BldA) [Mass fraction] 93 % PA Gerry Gray PA Work Phone: [facility] 07-01-2023 17:03-0500 Systolic blood pressure 142 mm[Hg] PA Gerry Gray PA Work Phone: [facility] 06-04-2023 13:40-0500 Diastolic blood pressure 78 mm[Hg] Sedrick Bridenthal SUPERVISOR [employer] - TECHNICAL SUPPORT ANALYST Work Phone: [facility] 06-04-2023 13:40-0500 Systolic blood pressure 131 mm[Hg] Sedrick Bridenthal SUPERVISOR [employer] - TECHNICAL SUPPORT ANALYST Work Phone: [facility] 06-04-2023 13:11-0500 Body mass index (BMI) [Ratio] 35.26 kg/m2 Sedrick Bridenthal SUPERVISOR [employer] - TECHNICAL SUPPORT ANALYST Work Phone: [facility] 06-04-2023 13:11-0500 Body temperature 98.4 [degF] Sedrick Bridenthal SUPERVISOR [employer] - TECHNICAL SUPPORT ANALYST Work Phone: [facility] 06-04-2023 13:11-0500 Body weight 92.53 kg Sedrick Bridenthal SUPERVISOR H[employer] - TECHNICAL SUPPORT ANALYST Work Phone: [facility] 06-04-2023 13:11-0500 Heart rate 78 /min Sedrick Bridenthal SUPERVISOR H[employer]ING [employer] - TECHNICAL SUPPORT ANALYST Work Phone: [facility] 06-04-2023 13:11-0500 Respiratory rate 24 /min Sedrick Bridenthal SUPERVISOR HANGING [employer]MING - TECHNICAL SUPPORT ANALYST Work Phone: [facility] 06-04-2023 13:11-0500 SaO2% (BldA) [Mass fraction] 98 % Sedrick Bridenthal SUPERVISOR HANGING [employer]MING - TECHNICAL SUPPORT ANALYST Work Phone: [facility] 04-23-2023 10:06-0500 Body height 162 cm Sedrick Bridenthal SUPERVISOR HANGING [employer]MING - TECHNICAL SUPPORT ANALYST Work Phone: [facility] 04-23-2023 10:06-0500 Body mass index (BMI) [Ratio] 34.74 kg/m2 Sedrick Bridenthal SUPERVISOR [employer] - TECHNICAL SUPPORT ANALYST Work Phone: [facility] 04-23-2023 10:06-0500 Body temperature 97.81 [degF] Sedrick Bridenthal SUPERVISOR H[employer] - TECHNICAL SUPPORT ANALYST Work Phone: [facility] 04-23-2023 10:06-0500 Body weight 91.17 kg Sedrick Bridenthal SUPERVISOR HANG[employer] - TECHNICAL SUPPORT ANALYST Work Phone: [facility] 04-23-2023 10:06-0500 Diastolic blood pressure 87 mm[Hg] Sedrick Bridenthal SUPERVISOR HANGING [employer]MING - TECHNICAL SUPPORT ANALYST Work Phone: [facility] 04-23-2023 10:06-0500 Heart rate 89 /min Sedrick Bridenthal SUPERVISOR HANGING [employer]IMMING - TECHNICAL SUPPORT ANALYST Work Phone: [facility] 04-23-2023 10:06-0500 Respiratory rate 20 /min Sedrick Bridenthal SUPERVISOR HANGING [employer]MING - TECHNICAL SUPPORT ANALYST Work Phone: [facility] 04-23-2023 10:06-0500 SaO2% (BldA) [Mass fraction] 93 % Sedrick Bridenthal SUPERVISOR H[employer] - TECHNICAL SUPPORT ANALYST Work Phone: [facility] 04-23-2023 10:06-0500 Systolic blood pressure 153 mm[Hg] Sedrick Bridenthal SUPERVISOR HANGING [employer]MING - TECHNICAL SUPPORT ANALYST Work Phone: [facility] 04-02-2023 12:45-0500 Diastolic blood pressure 78 mm[Hg] Sedrick Bridenthal SUPERVISOR HANGING [employer]MING - TECHNICAL SUPPORT ANALYST Work Phone: [facility] 04-02-2023 12:45-0500 Systolic blood pressure 132 mm[Hg] Sedrick Bridenthal SUPERVISOR HANG[employer]MING - TECHNICAL SUPPORT ANALYST Work Phone: [facility] 04-02-2023 11:07-0500 Body temperature 98.01 [degF] Sedrick Bridenthal SUPERVISOR H[employer] - TECHNICAL SUPPORT ANALYST Work Phone: [facility] 04-02-2023 11:07-0500 Body weight 92.08 kg Sedrick Bridenthal SUPERVISOR HANGING [employer]IMMING - TECHNICAL SUPPORT ANALYST Work Phone: [facility] 04-02-2023 11:07-0500 Heart rate 78 /min Sedrick Bridenthal SUPERVISOR HANGING [employer]MING - TECHNICAL SUPPORT ANALYST Work Phone: [facility] 04-02-2023 11:07-0500 Respiratory rate 24 /min Sedrick Bridenthal SUPERVISOR HANGING [employer]MING - TECHNICAL SUPPORT ANALYST Work Phone: [facility] 04-02-2023 11:07-0500 SaO2% (BldA) [Mass fraction] 98 % Sedrick Bridenthal SUPERVISOR H[employer] - TECHNICAL SUPPORT ANALYST Work Phone: [facility] Encounters Encounter Date Encounter Type Care Provider Facility Start: 11-30-2024 End: 11-30-2024 Refill Sedrick Bridenthal SUPERVISOR [employer]ANG[employer]MING - TECHNICAL SUPPORT ANALYST Work Phone: [facility] Comment on above: Hypothyroidism, unsp ecified type Start: 11-10-2024 End: 11-10-2024 Refill Sedrick Bridenthal SUPERVISOR HANGING [employer]IMMING - TECHNICAL SUPPORT ANALYST Work Phone: [facility] Comment on above: Gastroesophageal ref lux disease without esophagitis; Swelling of both lower extremities Start: 09-23-2024 End: 09-23-[address] [facility] Facility:[facility] [place] Start: 09-22-2024 End: 09-22-2024 Refill Moshe Key MD Work Phone: [facility] Comment on above: Hypothyroidism, unsp ecified type Start: 09-02-2024 End: 09-02-2024 Refill Jessica Smith SUPERVISOR HANGING [employer]MING - TECHNICAL SUPPORT ANALYST Work Phone: [facility] Comment on above: Pure hypercholestero lemia Start: 08-30-2024 End: 08-30-[address] Moshe Key MD Work Phone: [facility] Work Phone: Start: 08-30-2024 End: 08-30-[address] Arnold Morton MD -[facility] Work Phone: Start: 08-30-2024 End: 08-30-2024 ambulatory Arnold Morton Facility:[facility] Start: 08-05-2024 End: 08-05-2024 ambulatory [facility] Start: 08-04-2024 End: 08-05-2024 Refill Jessica Smith SUPERVISOR HANGING [employer] TRIMMING - TECHNICAL SUPPORT ANALYST Work Phone: [facility] Comment on above: Pure hypercholestero lemia Start: 07-30-2024 End: 07-30-[address] Arnold Morton MD -[facility] Work Phone: Start: 07-30-2024 End: 07-30-2024 ambulatory Moshe Yesi Facility:[facility] [place] Start: 07-28-2024 End: 07-28-2024 Patient encounter procedure Tabby WALKER -[facility] Work Phone: Start: 07-28-2024 End: 07-28-2024 ambulatory [facility] Facility:[facility] [place] [place] Start: 07-19-2024 End: 07-19-2024 Refill 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 SUPERVISOR H[employer]ING [employer]MING - TECHNICAL SUPPORT ANALYST Work Phone: [facility] Comment on above: Post-nasal drainage; Primary hypertension Start: 07-07-2024 End: 07-07-2024 Patient encounter procedure Tabby WALKER -[facility] Work Phone: Start: 07-07-2024 End: 07-07-2024 ambulatory Moshe Key Facility:[facility] Start: 07-05-2024 End: 07-05-2024 Telephone encounter Moshe Key MD Work Phone: [facility] Start: 07-05-2024 End: 07-05-2024 ambulatory [facility] Start: 07-02-2024 End: 07-02-2024 Patient encounter procedure Enriqueta DURAND -[facility] Work Phone: Start: 07-02-2024 End: 07-02-2024 ambulatory Moshe Key Facility:[facility] Start: 06-28-2024 End: 06-28-2024 Office outpatient visit 15 minutes Sedrick Bridenthal SUPERVISOR [employer] - TECHNICAL SUPPORT ANALYST Work Phone: [facility] Comment on above: Osteoarthritis of ri ght knee, unspecified osteoarthritis type (Primary Dx); Pure hypercholesterolemia Start: 06-28-2024 End: 06-28-2024 Office outpatient visit 25 minutes Sedrick Bridenthal SUPERVISOR H[employer] - TECHNICAL SUPPORT ANALYST Work Phone: [facility] Comment on above: Osteoarthritis of ri ght knee, unspecified osteoarthritis type (Primary Dx); Pure hypercholesterolemia Start: 06-28-2024 End: 06-28-2024 ambulatory SEDRICK BRIDENTHAL [facility] Start: 06-10-2024 End: 06-10-2024 Refill Moshe Key MD Work Phone: [facility] Comment on above: Gastroesophageal ref lux disease without esophagitis; Vitamin D deficiency Start: 06-03-2024 End: 06-03-2024 ambulatory [facility] Start: 06-02-2024 End: 06-02-2024 Refill Sedrick Bridenthal SUPERVISOR HANGING [employer]MING - TECHNICAL SUPPORT ANALYST Work Phone: [facility] Start: 05-31-2024 End: 05-31-2024 ambulatory Arnold Morton Facility:[facility] Start: 05-31-2024 End: 05-31-[address] Arnold Morton MD -Physical Therapy Work Phone: Start: 05-25-2024 End: 06-16-2024 Telephone encounter Sedrick Bridenthal SUPERVISOR H[employer]ING [employer]MING - TECHNICAL SUPPORT ANALYST Work Phone: [facility] Comment on above: Results Start: 05-25-2024 End: 05-25-2024 ambulatory SEDRICK BRIDENTHAL SUPERVISOR [employer]IMMING/TECHNICAL SUPPORT ANALYST Facility:[facility] Start: 05-25-2024 End: 05-25-2024 Patient encounter procedure SEDRICK KARRIEENTHAL SUPERVISOR HANGING AND TRIMMING/TECHNICAL SUPPORT ANALYST [facility] Start: 05-25-2024 End: 05-25-2024 Office outpatient visit 15 minutes Sedrick Karrieenthal SUPERVISOR HANGING AND [employer]MING - TECHNICAL SUPPORT ANALYST Work Phone: [facility] Comment on above: Acute pain of right knee (Primary Dx) Start: 05-25-2024 End: 05-25-2024 ambulatory SEDRICK PAULAL [facility] Start: 05-24-2024 End: 05-24-2024 ambulatory Gerri Hazel RN [facility] Start: 05-24-2024 End: 05-24-2024 [facility] Start: 05-13-2024 End: 05-13-2024 Patient encounter procedure Enriqueta DURAND -[facility] Work Phone: Start: 05-13-2024 End: 05-13-2024 ambulatory Moshe Key Facility:[facility] Start: 05-04-2024 End: 05-04-2024 Patient encounter procedure Moshe Key MD Work Phone: [facility] Comment on above: Medicare annual well ness visit, subsequent (Primary Dx); Primary hypertension; Gastroesophageal reflux disease without esophagitis; Hereditary hemochromatosis (HCC); Acquired hypothyroidism; Type 2 diabetes mellitus without complication, without long-term current use of insulin (CMS/HCC) (HCC); Pure hypercholesterolemia; Immunization due Start: 05-04-2024 End: 05-04-2024 ambulatory MOSHESPARKLE KEY [facility] Start: 05-04-2024 End: 05-04-2024 Encounter for general adult medical examination without abnormal findings MOSHE YESI [facility] Start: 05-01-2024 End: 05-03-2024 Refill Sedrick Bridenthal SUPERVISOR [employer] - TECHNICAL SUPPORT ANALYST Work Phone: [facility] Comment on above: Primary hypertension Start: 04-16-2024 Encounter for other preprocedural examination [facility] Start: 04-15-2024 End: 04-15-2024 ambulatory Moshe Yesi Facility:[facility] Start: 03-29-2024 End: 03-30-[address] [facility] Facility:[facility] Start: 03-29-[address] [facility] Facility:[facility] Start: 03-25-2024 End: 03-25-2024 Refill Moshe Key MD Work Phone: [facility] Start: 03-19-2024 End: 03-19-[address] [facility] Facility:[facility] Start: 03-09-2024 End: 03-09-2024 Office outpatient visit 15 minutes Sedrick Bridenthal SUPERVISOR [employer] - TECHNICAL SUPPORT ANALYST Work Phone: [facility] Comment on above: Preoperative clearan ce (Primary Dx); Type 2 diabetes mellitus without complication, without long-term current use of insulin (CMS/HCC) (HCC); Primary hypertension Start: 03-09-2024 End: 03-09-2024 Office outpatient visit 25 minutes Sedrick Bridenthal SUPERVISOR [employer] - TECHNICAL SUPPORT ANALYST Work Phone: [facility] Comment on above: Preoperative clearan ce (Primary Dx); Type 2 diabetes mellitus without complication, without long-term current use of insulin (CMS/HCC) (HCC); Primary hypertension Start: 03-09-2024 End: 03-09-2024 Preoperative state Sedrick Bridenthal SUPERVISOR H[employer]MING - TECHNICAL SUPPORT ANALYST Work Phone: [facility] Work Phone: Start: 03-09-2024 End: 03[facility]09[facility] Start: 03-09-[facility]24 End: 03-09-2024 [facility] Start: 02-26-2024 End: 02-26-2024 [facility] [place] [place] Start: 02-23-2024 End: 02-23-2024 Subsequent hospital visit by physician 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 SUPERVISOR [employer]ANG[employer] - TECHNICAL SUPPORT ANALYST Work Phone: [facility] Comment on above: Encounter for screen ing mammogram for malignant neoplasm of breast Start: 02-23-2024 End: 02-23-2024 ambulatory [facility] Start: 02-16-2024 End: 02-16-[address] [facility] Facility:[facility] Start: 02-13-2024 End: 02-13-2024 Telephone encounter Sedrick Karriechristina SUPERVISOR [employer] - TECHNICAL SUPPORT ANALYST Work Phone: [facility] Comment on above: Results Start: 02-12-2024 End: 02-12-2024 Subsequent hospital visit by physician 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 SUPERVISOR H[employer]ING [employer]MING - TECHNICAL SUPPORT ANALYST Work Phone: [facility] Non-Invasive Cardiology Comment on above: Murmur, cardiac Start: 02-12-2024 End: 02-12-2024 [facility] Start: 02-12-2024 End: 02-12-2024 ambulatory MOSHE KEY [facility] Start: 02-09-2024 End: 02-09-2024 Subsequent hospital visit by physician 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 SUPERVISOR HANGING AND TRIMMING - TECHNICAL SUPPORT ANALYST Work Phone: [facility] Comment on above: History of tobacco u se Start: 02-09-2024 End: 02-09-[facility] Start: 02-05-2024 End: 02-05-2024 ambulatory Israel Clarence Facility:[facility] Start: 01-21-2024 End: 01-21-2024 Office outpatient visit 25 minutes 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 SUPERVISOR HANGING AND TR[employer]MING - TECHNICAL SUPPORT ANALYST Work Phone: [facility] Comment on above: Type 2 diabetes willard itus without complication, without long- term current use of insulin ([facility]/HCC) (HCC) (Primary Dx); Hypothyroidism, unspecified type; Degenerative disc disease, lumbar; Iron deficiency anemia, unspecified iron deficiency anemia type; Primary hypertension; History of tobacco use; Encounter for screening mammogram for malignant neoplasm of breast; Murmur, cardiac; Bilateral foot pain Start: 01-21-2024 End: 01-21-2024 ambulatory SEDRICK HEMPHILL [facility] Start: 01-16-2024 End: 01-16-2024 ambulatory No Primary Care Physician Facility:[facility] [place] Start: 01-15-2024 End: 01-16-2024 Telephone encounter 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 SUPERVISOR [employer] - TECHNICAL SUPPORT ANALYST Work Phone: [facility] Comment on above: Results Start: 01-14-2024 End: 01-14-2024 ambulatory [facility] Start: 12-26-2023 End: 12-29-2023 Refill 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 SUPERVISOR [employer] - TECHNICAL SUPPORT ANALYST Work Phone: [facility] Comment on above: Swelling of both low er extremities Start: 12-24-2023 End: 12-24-2023 Telephone encounter 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 SUPERVISOR H[employer] - TECHNICAL SUPPORT ANALYST Work Phone: [facility] Comment on above: Results Start: 12-17-2023 End: 12-17-2023 Subsequent hospital visit by physician 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 SUPERVISOR H[employer]ING AND TRIMMING - TECHNICAL SUPPORT ANALYST Work Phone: [facility] Radiology Comment on above: Chronic left-sided l ow back pain without sciatica Start: 12-17-2023 End: 12-17-2023 ambulatory [facility] Start: 12-10-2023 End: 12-15-2023 Telephone encounter 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 SUPERVISOR HANGING AND [employer]IMMING - TECHNICAL SUPPORT ANALYST Work Phone: [facility] Start: 12-09-2023 End: 12-10-2023 Vivian Key MD Work Phone: [facility] Start: 12-03-2023 End: 12-03-2023 Telephone encounter Sedrick Millerhenry SUPERVISOR HANGING AND TRIMMING - TECHNICAL SUPPORT ANALYST Work Phone: [facility] Comment on above: Results Start: 12-01-2023 End: 12-01-2023 Office outpatient visit 15 minutes Sedrick Yoonchristina SUPERVISOR [employer] - TECHNICAL SUPPORT ANALYST Work Phone: [facility] Comment on above: Left buttock pain (P rimary Dx); Bilateral foot pain; Colon cancer screening Start: 11-25-2023 End: 11-25-2023 Postop follow up visit related to original px Nadya Biro PA-C Work Phone: [facility] Comment on above: Mass of joint of rig ht wrist (Primary Dx); S/P excision of ganglion cyst Start: 10-22-2023 End: 12-10-2023 Telephone encounter Orthopedic Work Phone: [facility] Communication Comment on above: FYI Start: 10-22-2023 End: 10-22-2023 Office outpatient visit 25 minutes Sedrick Yoonchristina SUPERVISOR HANGING AND TRIMMING - TECHNICAL SUPPORT ANALYST Work Phone: [facility] Comment on above: Type 2 diabetes willard itus without complication, without long- term current use of insulin (CMS/HCC) (HCC) (Primary Dx); Hereditary hemochromatosis (HCC); Swelling of both lower extremities; Bilateral foot pain; Primary hypertension Start: 10-14-2023 End: 10-14-2023 Postop follow up visit related to original px Nadya Biro PA-C Work Phone: [facility] Comment on above: Mass of joint of rig ht wrist; S/P excision of ganglion cyst Start: 09-16-2023 End: 09-16-2023 Postop follow up visit related to original px Nadya Biro PA-C Work Phone: [facility] Comment on above: S/P excision of gang lion cyst (Primary Dx); Mass of joint of right wrist Start: 09-04-2023 ambulatory Iris Morales RN [facility] Clinical Communication Start: 09-04-2023 Patient encounter procedure Iris campbell RN [facility] Clinical Communication Start: 09-04-2023 End: 09-04-2023 Office outpatient visit 10 minutes Sedrick Bridenthal SUPERVISOR HANGING AND TRIMMING - TECHNICAL SUPPORT ANALYST Work Phone: [facility] Medicine Comment on above: Visit for wound chec k (Primary Dx) Start: 09-03-2023 End: 09-03-2023 Subsequent hospital visit by physician Austin Leos MD Work Phone: [facility] Comment on above: H/O excision of mass (Primary Dx); Ganglion, right wrist Start: 08-19-2023 Telephone encounter Moseh Evans MD Work Phone: [facility] Medicine Comment on above: appt with Dr. Alvin Beltran, DPM<9>on 2:45 Start: 08-08-2023 ambulatory Nadya Sewell Work Phone: [facility] Orthopedic Surg Start: 08-05-2023 Telephone encounter Austin ruiz MD Work Phone: [facility] Comment on above: Surgery Scheduling ( Surgery Scheduling) Start: 08-05-2023 End: 08-05-2023 Office outpatient new 30 minutes Austin Leos MD Work Phone: [facility] Comment on above: Mass of joint of rig ht wrist Start: 07-24-2023 End: 07-24-2023 Office outpatient visit 25 minutes Sedrick Karrieenthal SUPERVISOR HANGING AND TRIMMING - TECHNICAL SUPPORT ANALYST Work Phone: [facility] Comment on above: Hereditary hemochrom atosis (HCC) (Primary Dx); Primary hypertension; Type 2 diabetes mellitus without complication, without long-term current use of insulin ([facility]/HCC) (HCC); Bilateral foot pain; Mass of joint of right wrist; Other specified hypothyroidism Start: 07-01-2023 End: 07-01-2023 Emergency department patient visit KIZZY DURAND Work Phone: [facility] Work Phone: Start: 07-01-2023 End: 07-01-2023 Patient encounter procedure KIZZY DURAND Work Phone: [facility] Work Phone: Start: 06-09-2023 Telephone encounter Moshe Evans MD Work Phone: [facility] Start: 06-05-2023 End: 06-06-2023 ambulatory SEDRICK BRIDENTHAL SUPERVISOR HANGING AND TRIMMING/TECHNICAL SUPPORT ANALYST Facility:[facility] Start: 06-05-2023 End: 06-05-2023 Patient encounter procedure SEDRICK BRIDENTHAL SUPERVISOR HANGING AND TRIMMING/TECHNICAL SUPPORT ANALYST [facility] Start: 06-04-2023 End: 06-04-2023 Office outpatient visit 15 minutes Sedrick Bridenthal SUPERVISOR HANGING AND TRIMMING - TECHNICAL SUPPORT ANALYST Work Phone: [facility] Comment on above: Mass of joint of rig ht wrist (Primary Dx) Start: 04-23-2023 End: 04-23-2023 Assay of hemosiderin, quant Sedrick Bridenthal SUPERVISOR HANGING AND TRIMMING - TECHNICAL SUPPORT ANALYST Work Phone: [facility] Work Phone: Start: 04-23-2023 End: 04-23-2023 Patient encounter procedure Sedrick Bridenthal SUPERVISOR HANGING AND TRIMMING - TECHNICAL SUPPORT ANALYST Work Phone: [facility] Comment on above: Routine general medi luly examination at health care facility (Primary Dx); Type 2 diabetes mellitus without complication, without long-term current use of insulin (CMS/HCC) (HCC); Primary hypertension; Hereditary hemochromatosis (HCC); Hypothyroidism, unspecified type; Immunization due Start: 04-02-2023 End: 04-02-2023 Office outpatient new 45 minutes 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 SUPERVISOR HANGING AND TRIMMING - TECHNICAL SUPPORT ANALYST Work Phone: [facility] Comment on above: Type 2 diabetes willard itus without complication, without long- term current use of insulin (CMS/HCC) (HCC) (Primary Dx); Hereditary hemochromatosis (HCC); Primary hypertension Start: 03-21-2023 Telephone encounter Sedrickdony buchanan SUPERVISOR HANGING AND TRIMMING - TECHNICAL SUPPORT ANALYST Work Phone: [facility] Comment on above: New Patient Procedures Date Procedure Procedure Detail Performing Clinician Start: 08-30-2024 MRI of cervical spine Severiano Key MD Work Phone: Start: 08-05-2024 Lipid 1995 panel - S rosendo or Plasma Jessica Smith SUPERVISOR HANGING AND TRIMMING - TECHNICAL SUPPORT ANALYST Work Phone: Start: 07-30-2024 X-ray of cervical spine Dr. Moshe Key MD Work Phone: Start: 07-05-2024 Lipid 1995 panel - S rosendo or Plasma Sedrick Colin SUPERVISOR HANGING AND TRIMMING - TECHNICAL SUPPORT ANALYST Work Phone: Start: 07-02-2024 X-ray of lumbar spin e, two or three views Dr. Moshe Key MD Work Phone: Start: 06-03-2024 Lipid 1995 panel - S rosendo or Plasma Moshe Key MD Work Phone: Start: 06-03-2024 Thyrotropin [Units/volume] in Serum or Plasma Moshe Key MD Work Phone: Start: 05-13-2024 X-ray of lumbar spin e, two or three views Dr. Moshe Key MD Work Phone: Start: 05-04-2024 Lipid 1995 panel - S rosendo or Plasma Gerir Hazel RN Start: 05-04-2024 Thyrotropin [Units/volume] in Serum or Plasma Gerri Hazel RN Start: 05-03-2024 Adult depression screening assessment Moshe Key MD Work Phone: Start: 03-06-2024 Adult depression screening assessment Sedirck Hemphill SUPERVISOR HANGING AND TRIMMING - TECHNICAL SUPPORT ANALYST Work Phone: Start: 02-23-2024 End: 02-23-2024 Screening digital breast tomosynthesis bi Sedrick Milleral SUPERVISOR HANGING AND TRIMMING - TECHNICAL SUPPORT ANALYST Work Phone: Start: 02-12-2024 Echo tthrc r-t 2d w/wom-mode compl spec&colr d Sedrick Milleral SUPERVISOR HANGING AND TRIMMING - TECHNICAL SUPPORT ANALYST Work Phone: Start: 02-12-2024 Thyrotropin [Units/volume] in Serum or Plasma Sedrick Karrieenthal SUPERVISOR HANGING AND TRIMMING - TECHNICAL SUPPORT ANALYST Work Phone: Start: 01-14-2024 Thyrotropin [Units/volume] in Serum or Plasma Sedrick Karrieenthal SUPERVISOR HANGING AND TRIMMING - TECHNICAL SUPPORT ANALYST Work Phone: Start: 08-05-2023 Colonoscopy Austin wolfe MD Work Phone: Start: 05-07-2023 Lipid 1996 panel - S rosendo or Plasma Sedrick Karrieenthal SUPERVISOR HANGING AND TRIMMING - TECHNICAL SUPPORT ANALYST Work Phone: Start: 05-07-2023 Thyrotropin [Units/volume] in Serum or Plasma Sedrick Karrieenthal SUPERVISOR HANGING AND TRIMMING - TECHNICAL SUPPORT ANALYST Work Phone: Start: 04-23-2023 Adult depression screening assessment Sedrickray Yoonenthal SUPERVISOR HANGING AND TRIMMING - TECHNICAL SUPPORT ANALYST Work Phone: Start: 04-02-2023 Adult depression screening assessment Sedrickray Milleral SUPERVISOR HANGING AND TRIMMING - TECHNICAL SUPPORT ANALYST Work Phone: Start: 02-12-2023 Mammography Sedrick cohenthal SUPERVISOR HANGING AND TRIMMING - TECHNICAL SUPPORT ANALYST Work Phone: H/O: surgery H/O excision of mass Austin Leos MD Work Phone: Plan of Treatment Date Care Activity Detail Author Start: 08-04-2033 Screening for malignant neoplasm of colon [facility] Start: 2029 RSV Immunization for Adults (1 - 1-dose 75+ series) RSV Immunization for Adults (1 - 1-dose 75+ series) [facility] Start: 01-19-2027 Screening for malignant neoplasm of colon Colorectal Cancer Screening [facility] Comment on above: Postponed from 1954 (Other System Reasons) Start: 12-04-2026 Screening for malignant neoplasm of colon FIT-DNA [facility] Start: 04-23-2026 Screening for malignant neoplasm of colon Colorectal Cancer Screening [facility] Comment on above: Postponed from 1954 (Other Patient Reasons) Start: 08-05-2025 Lipid panel Lipid Panel [facility] Start: 07-05-2025 Lipid panel Lipid Panel [facility] Start: 06-03-2025 Lipid panel Lipid Panel [facility] Start: 06-03-2025 Thyroid stimulating hormone measurement TSH Level [facility] Start: 05-05-2025 End: 05-05-2025 Patient encounter procedure 05/05/2025 10:20 AM EST Office Visit [facility] [address] [place] [address] 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, SUPERVISOR HANGING AND TRIMMING - TECHNICAL SUPPORT ANALYST [address] [place] [address] [facility] Start: 05-04-2025 Diabetes: Estimated Glomerular Filtration Rate for Kidney Health Diabetes: Estimated Glomerular Filtration Rate for Kidney Health [facility] Start: 05-04-2025 Hemoglobin A1c measurement Diabetes: Hemoglobin A1C [facility] Start: 05-04-2025 Lipid panel Lipid Panel [facility] Start: 05-04-2025 Preventive dental service Diabetes: Dental Exam [facility] Comment on above: Postponed from 04/23/2023 (Patient Refus ed) Start: 05-04-2025 Thyroid stimulating hormone measurement TSH Level [facility] Start: 05-03-2025 Depression Screening Depression Screening [facility] Start: 03-09-2025 Diabetic foot examination Diabetes: Foot Exam [facility] Start: 03-06-2025 Depression Screening Depression Screening [facility] Start: 02-22-2025 Screening for malignant neoplasm of breast Mammogram [facility] Start: 02-14-2025 Glaucoma screening Diabetes: Retinopathy Screening [facility] Start: 02-11-2025 Thyroid stimulating hormone measurement TSH Level [facility] Start: 02-08-2025 Screening for malignant neoplasm of lung Lung Cancer Screening [facility] Start: 01-24-2025 Influenza vaccination Influenza Vaccine (#1) [facility] Start: 01-20-2025 Diabetes: Urine Albumin-Creatinine Ratio for Kidney Health Diabetes: Urine Albumin-Creatinine Ratio for Kidney Health [facility] Start: 01-13-2025 Thyroid stimulating hormone measurement TSH Level [facility] Start: 10-21-2024 Diabetes: Estimated Glomerular Filtration Rate for Kidney Health Diabetes: Estimated Glomerular Filtration Rate for Kidney Health [facility] Start: 08-26-2024 Hemoglobin A1c measurement Diabetes: Hemoglobin A1C [facility] Start: 08-22-2024 COVID-19 Vaccine ( season) COVID-19 Vaccine () [facility] Start: 08-05-2024 End: 08-05-2024 Clinical Support 08/05/2024 9:30 AM EDT Clinical Support [facility] [address] [facility] [place] [address] [facility] Start: 07-28-2024 Diabetes: Estimated Glomerular Filtration Rate for Kidney Health Diabetes: Estimated Glomerular Filtration Rate for Kidney Health [facility] Start: 07-05-2024 End: 07-05-2024 Clinical Support 07/05/2024 9:30 AM EST Clinical Support [facility] [address] [place] [address] [facility] Start: 06-28-2024 End: 06-28-2024 Patient encounter procedure 06/28/2024 9:20 AM EST Office Visit [facility] [address] [place] [address] [place] [address] 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, SUPERVISOR HANGING AND TRIMMING - TECHNICAL SUPPORT ANALYST [address] [facility] [place] [place] [address] [facility] Start: 06-24-2024 COVID-19 Vaccine () COVID-19 Vaccine () [facility] Start: 06-03-2024 End: 06-03-2024 Clinical Support 06/03/2024 9:30 AM EST Clinical Support [facility] [place] [address] [place] [address] [facility] Start: 05-26-2024 Medicare [facility] Annual Wellness Visit Medicare Advantage Annual Wellness Visit [facility] Start: 05-25-2024 End: 05-25-2025 XR Knee - right 4 Views XR knee 4+ views right Imaging Routine Acute pain of right knee Expected: 05/25/2024, Expires: 05/25/2025 [facility] Work Phone: Comment on above: Expected: 05/25/2024, Expires: Start: 05-25-2024 End: 05-25-2024 Patient encounter procedure 05/25/2024 10:40 AM EST Office Visit [facility] [place] [address] [place] [address] 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, SUPERVISOR HANGING AND TRIMMING - TECHNICAL SUPPORT ANALYST [address] [place] [address] [facility] Start: 05-07-2024 Hemoglobin A1c measurement Diabetes: Hemoglobin A1C [facility] Start: 05-07-2024 Lipid panel Lipid Panel [facility] Start: 05-07-2024 Thyroid stimulating hormone measurement TSH Level [facility] Start: 05-04-2024 End: 05-04-2025 CBC W Auto Differential panel - Blood CBC auto differential Lab Routine Hereditary hemochromatosis (HCC) Expected: 05/04/2024 (Approximate), Expires: 05/04/2025 [facility] Comment on above: Expected: 05/04/2024 (Approximate), Expi res: 05/04/2025 Start: 05-04-2024 End: 05-04-2025 Comprehensive metabolic 1998 panel - Serum or Plasma Comprehensive metabolic panel Lab Routine Type 2 diabetes mellitus without complication, without long-term current use of insulin (CMS/HCC) (HCC) Expected: 05/04/2024 (Approximate), Expires: 05/04/2025 [facility] Comment on above: Expected: 05/04/2024 (Approximate), Expi res: 05/04/2025 Start: 05-04-2024 End: 05-04-2025 Ferritin [Mass/volume] in Serum or Plasma Ferritin Lab Routine Hereditary hemochromatosis (HCC) Expected: 05/04/2024 (Approximate), Expires: 05/04/2025 [facility] Comment on above: Expected: 05/04/2024 (Approximate), Expi res: 05/04/2025 Start: 05-04-2024 End: 05-04-2025 Hemoglobin A1c measurement Hemoglobin A1c Lab Routine Type 2 diabetes mellitus without complication, without long-term current use of insulin (CMS/HCC) (HCC) Expected: 05/04/2024 (Approximate), Expires: 05/04/2025 [facility] Comment on above: Expected: 05/04/2024 (Approximate), Expi res: 05/04/2025 Start: 05-04-2024 End: 05-04-2025 Iron and Iron binding capacity panel - Serum or Plasma Iron and TIBC Lab Routine Hereditary hemochromatosis (HCC) Expected: 05/04/2024 (Approximate), Expires: 05/04/2025 [facility] Comment on above: Expected: 05/04/2024 (Approximate), Expi res: 05/04/2025 Start: 05-04-2024 End: 05-04-2025 Lipid 1996 panel - Serum or Plasma Lipid panel Lab Routine Pure hypercholesterolemia Expected: 05/04/2024 (Approximate), Expires: 05/04/2025 [facility] Work Phone: Comment on above: Expected: 05/04/2024 (Approximate), Expi res: 05/04/2025 Start: 05-04-2024 End: 05-04-2025 Thyrotropin [Units/volume] in Serum or Plasma TSH Lab Routine Acquired hypothyroidism Expected: 05/04/2024 (Approximate), Expires: 05/04/2025 [facility] Comment on above: Expected: 05/04/2024 (Approximate), Expi res: 05/04/2025 Start: 05-04-2024 End: 05-04-2024 Patient encounter procedure [facility] Start: 04-27-2024 Medicare Advantage Annual Wellness Visit Medicare Advantage Annual Wellness Visit [facility] Comment on above: Postponed from 05/26/2023 (Other System Reasons) Start: 04-23-2024 Depression Screening Depression Screening [facility] Start: 04-23-2024 Diabetic foot examination Diabetes: Foot Exam [facility] Start: 04-23-2024 Screening for osteoporosis Bone Density Scan [facility] Comment on above: Postponed from 1954 (Patient Refus ed) Start: 04-23-2024 Zoster Vaccines (1 of 2) Zoster Vaccines (1 of 2) [facility] Comment on above: Postponed from 2004 (Patient Refus ed) Start: 04-23-2024 Zoster Vaccines (2 of 2) Zoster Vaccines (2 of 2) [facility] Comment on above: Postponed from 02/19/2022 (Patient Refus ed) Start: 04-15-2024 End: 04-15-2024 Patient encounter procedure [facility] Start: 04-02-2024 COVID-19 Vaccine (#1) COVID-19 Vaccine (#1) [facility] Comment on above: Postponed from 01/14/1956 (Patient Refus ed) Start: 04-02-2024 COVID-19 Vaccine ( season) COVID-19 Vaccine ( season) [facility] Comment on above: Postponed from 01/24/2023 (Patient Refus ed) Start: 04-02-2024 Depression Screening Depression Screening [facility] Start: 04-02-2024 DTaP/Tdap/Td Vaccines (1 - Tdap) DTaP/Tdap/Td Vaccines (1 - Tdap) [facility] Comment on above: Postponed from 1973 (Patient Refus ed) Start: 04-02-2024 Hepatitis C screening Hepatitis C Screening [facility] Comment on above: Postponed from 1972 (Patient Refus ed) Start: 03-12-2024 End: 03-12-2024 Clinical Support 03/12/2024 9:00 AM EDT Clinical Support [address] [address] [facility] Start: 02-23-2024 End: 02-23-2024 Patient encounter procedure 02/23/2024 11:40 AM EDT Appointment [facility] [address] [place] [address] 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, SUPERVISOR HANGING AND TRIMMING - TECHNICAL SUPPORT ANALYST [address] [place] [address] [facility] Start: 02-21-2024 End: 03-22-2025 DBT Breast - bilateral screening Bilateral screening mammogram with tomosynthesis Imaging Routine Encounter for screening mammogram for malignant neoplasm of breast Expected: 02/21/2024, Expires: 03/22/2025 [facility] Comment on above: Expected: 02/21/2024, Expires: Start: 02-15-2024 Glaucoma screening Diabetes: Retinopathy Screening [facility] Start: 02-15-2024 End: 01-14-2025 Thyrotropin [Units/volume] in Serum or Plasma TSH Lab Routine Hypothyroidism, unspecified type Expected: 02/15/2024 (Approximate), Expires: 01/14/2025 [facility] Work Phone: Comment on above: Expected: 02/15/2024 (Approximate), Expi res: 01/14/2025 Start: 02-13-2024 Screening for malignant neoplasm of breast Mammogram [facility] Start: 02-12-2024 End: 02-12-2024 Clinical Support [facility] Start: 01-25-2024 COVID-19 Vaccine ( season) COVID-19 Vaccine ( season) [facility] Start: 01-25-2024 Influenza vaccination [facility] Start: 01-21-2024 End: 01-19-2025 CT Chest for screening WO contrast CT lung screening low dose Imaging Routine History of tobacco use Expected: 01/21/2024, Expires: 01/19/2025 [facility] Comment on above: Expected: 01/21/2024, Expires: Start: 01-21-2024 End: 01-19-2025 Microalbumin/Creatinin e panel in random Urine Microalbumin / creatinine, urine ratio Lab Routine Type 2 diabetes mellitus without complication, without long-term current use of insulin ([facility]/HCC) (HCC) Expected: 01/21/2024 (Approximate), Expires: 01/19/2025 [facility] Work Phone: Comment on above: Expected: 01/21/2024 (Approximate), Expi res: 01/19/2025 Start: 01-21-2024 End: 01-20-2026 US Heart Transthoracic Transthoracic echocardiogram (TTE) complete with contrast, bubble, strain, and 3D PRN CV Echocardiography Routine Murmur, cardiac Expected: 01/21/2024 (Approximate), Expires: 01/20/2026 [facility] Comment on above: Expected: 01/21/2024 (Approximate), Expi res: 01/20/2026 Start: 01-21-2024 End: 01-21-2024 Patient encounter procedure 01/21/2024 10:20 AM EDT Office Visit [facility] [address] [place] [address] 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, SUPERVISOR HANGING [employer]IMMING - TECHNICAL SUPPORT ANALYST [address], [place] [id number] [facility] Start: 01-14-2024 End: 12-02-2024 CBC W Auto Differential panel - Blood CBC auto differential Lab Routine Iron deficiency anemia, unspecified iron deficiency anemia type Expected: 01/14/2024 (Approximate), Expires: 12/02/2024 [facility] Work Phone: Comment on above: Expected: 01/14/2024 (Approximate), Expi res: 12/02/2024 Start: 01-14-2024 End: 12-02-2024 Cobalamin (Vitamin B12) [Mass/volume] in Serum or Plasma Vitamin B12 Lab Routine Anemia, unspecified type Expected: 01/14/2024 (Approximate), Expires: 12/02/2024 [facility] Comment on above: Expected: 01/14/2024 (Approximate), Expi res: 12/02/2024 Start: 01-14-2024 End: 12-02-2024 Ferritin [Mass/volume] in Serum or Plasma Ferritin Lab Routine Iron deficiency anemia, unspecified iron deficiency anemia type Expected: 01/14/2024 (Approximate), Expires: 12/02/2024 [facility] Comment on above: Expected: 01/14/2024 (Approximate), Expi res: 12/02/2024 Start: 01-14-2024 End: 12-02-2024 Folate [Mass/volume] in Serum or Plasma Folate Lab Routine Anemia, unspecified type Expected: 01/14/2024 (Approximate), Expires: 12/02/2024 [facility] Comment on above: Expected: 01/14/2024 (Approximate), Expi res: 12/02/2024 Start: 01-14-2024 End: 12-02-2024 Iron and Iron binding capacity panel - Serum or Plasma Iron and TIBC Lab Routine Iron deficiency anemia, unspecified iron deficiency anemia type Expected: 01/14/2024 (Approximate), Expires: 12/02/2024 [facility] Comment on above: Expected: 01/14/2024 (Approximate), Expi res: 12/02/2024 Start: 01-14-2024 End: 12-02-2024 Thyrotropin [Units/volume] in Serum or Plasma TSH Lab Routine Anemia, unspecified type Hypothyroidism, unspecified type Expected: 01/14/2024 (Approximate), Expires: 12/02/2024 [facility] Comment on above: Expected: 01/14/2024 (Approximate), Expi res: 12/02/2024 Start: 01-14-2024 End: 12-02-2024 Transferrin [Mass/volume] in Serum or Plasma Transferrin Lab Routine Iron deficiency anemia, unspecified iron deficiency anemia type Expected: 01/14/2024 (Approximate), Expires: 12/02/2024 [facility] Comment on above: Expected: 01/14/2024 (Approximate), Expi res: 12/02/2024 Start: 01-14-2024 End: 01-14-2024 Clinical Support 01/14/2024 10:00 AM EDT Clinical Support [facility] Medical [facility] [address] [place] [address] [place] [address] [facility] Start: 12-24-2023 End: 12-23-2024 25-hydroxyvitamin D3 [Mass/volume] in Serum or Plasma Vitamin D Deficiency Screening (Vit D 25) Lab Routine Osteopenia of lumbar spine Expected: 12/24/2023 (Approximate), Expires: 12/23/2024 [facility] Work Phone: Comment on above: Expected: 12/24/2023 (Approximate), Expi res: 12/23/2024 Start: 12-24-2023 End: 12-23-2024 DXA Skeletal system.axial Views for bone density DEXA bone density axial skeleton Imaging Routine Osteopenia of lumbar spine Expected: 12/24/2023, Expires: 12/23/2024 [facility] Comment on above: Expected: 12/24/2023, Expires: Start: 12-15-2023 End: 12-14-2024 XR Lumbar spine Views W flexion and W extension XR lumbar spine 4-5 view Imaging Routine Chronic left-sided low back pain without sciatica Expected: 12/15/2023, Expires: 12/14/2024 [facility] [employer] Work Phone: Comment on above: Expected: 12/15/2023, Expires: Start: 12-06-2023 Screening for malignant neoplasm of colon Colorectal Cancer Screening [facility] Start: 12-01-2023 End: 12-01-2023 Clinical Support 12/01/2023 9:00 AM EDT Clinical Support [facility] [address] [facility] [place] [address] [facility] Start: 11-25-2023 End: 11-25-2023 Patient encounter procedure 11/25/2023 1:00 PM EDT Office Visit [facility] [address] [place] [phone] Nadya Harkins PA-C [address] [place] [address] [address] [place] [address] [facility] Start: 11-23-2023 Influenza vaccination Influenza Vaccine (#1) [facility] Comment on above: Postponed from 01/24/2023 (Patient Refus ed) Start: 10-29-2023 Screening for malignant neoplasm of colon [facility] Start: 10-22-2023 End: 10-21-2024 CBC W Auto Differential panel - Blood CBC auto differential Lab Routine Hereditary hemochromatosis (HCC) Expected: 10/22/2023 (Approximate), Expires: 10/21/2024 [facility] Work Phone: Comment on above: Expected: 10/22/2023 (Approximate), Expi res: 10/21/2024 Start: 10-22-2023 End: 10-21-2024 Comprehensive metabolic 1998 panel - Serum or Plasma Comprehensive metabolic panel Lab Routine Type 2 diabetes mellitus without complication, without long-term current use of insulin (CMS/HCC) (HCC) Swelling of both lower extremities Expected: 10/22/2023 (Approximate), Expires: 10/21/2024 [facility] Comment on above: Expected: 10/22/2023 (Approximate), Expi res: 10/21/2024 Start: 10-22-2023 End: 10-21-2024 Ferritin [Mass/volume] in Serum or Plasma Ferritin Lab Routine Hereditary hemochromatosis (HCC) Expected: 10/22/2023 (Approximate), Expires: 10/21/2024 [facility] Comment on above: Expected: 10/22/2023 (Approximate), Expi res: 10/21/2024 Start: 10-22-2023 End: 10-21-2024 Iron and Iron binding capacity panel - Serum or Plasma Iron and TIBC Lab Routine Hereditary hemochromatosis (HCC) Expected: 10/22/2023 (Approximate), Expires: 10/21/2024 [facility] Comment on above: Expected: 10/22/2023 (Approximate), Expi res: 10/21/2024 Start: 10-22-2023 RSV Immunization aged 60 or older (1 - 1-dose 60+ series) RSV Immunization aged 60 or older (1 - 1-dose 60+ series) [facility] Comment on above: Postponed from 2014 (Patient Refus ed) Start: 10-22-2023 Screening for malignant neoplasm of lung Lung Cancer Screening [facility] Comment on above: Postponed from 2004 (Patient Refus ed) Start: 10-22-2023 End: 10-22-2023 Patient encounter procedure 10/22/2023 10:20 AM EDT Office Visit [facility] [address] [facility] [place] [address] [place] [address] 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, SUPERVISOR [employer] - TECHNICAL SUPPORT ANALYST [address] [facility] [place] [address] [place] [address] [facility] Start: 10-14-2023 End: 10-14-2023 Patient encounter procedure 10/14/2023 1:30 PM EDT Office Visit [facility] [address] [place] [phone] Nadya Harkins PA-C [address] [facility] [address] [place], [place] [address] [facility] Start: 09-16-2023 End: 09-16-2023 Patient encounter procedure [facility] Start: 09-03-2023 End: 09-03-2023 Admission to same day surgery center 09/03/2023 9:30 AM EDT - 09/03/2023 10:30 AM EDT Surgery [facility] MA[facility] OR [address] [place] [phone] Austin Leos MD [address] [facility] [address] [place], [place] [id number] RIGHT VOLAR RADIAL WRIST MASS EXCISION [19663 (CPT )] [facility] Comment on above: RIGHT VOLAR RADIAL WRIST MASS EXCISION [ 13245 (CPT )] Start: 09-03-2023 Subsequent hospital visit by physician 09/03/2023 9:30 AM EDT Hospital Encounter [facility] MA[facility] OR [address] [place] [address] Austin Leos MD [address] [facility] [address] [place] [address] [facility] OR Start: 09-03-2023 End: 09-03-2023 Excision ganglion wrist dorsal/volar primary [facility] Operating Room Start: 08-27-2023 End: 08-27-2023 Admission to establishment 08/27/2023 10:00 AM EDT Pre-Admission Testing [facility] Pre-Admit Testing [address] [place] [phone] [facility] Pre-Admit Testing Start: 08-05-2023 End: 08-05-2023 Patient encounter procedure 08/05/2023 1:00 PM EDT Office Visit [facility] [address] [place] [phone] Austin Leos MD [address] [facility] [address] [place] [address] [facility] Start: 07-24-2023 End: 07-23-2024 CBC W Auto Differential panel - Blood CBC auto differential Lab Routine Hereditary hemochromatosis (HCC) Expected: 07/24/2023 (Approximate), Expires: 07/23/2024 [facility] Work Phone: Comment on above: Expected: 07/24/2023 (Approximate), Expi res: 07/23/2024 Start: 07-24-2023 End: 07-23-2024 Ferritin [Mass/volume] in Serum or Plasma Ferritin Lab Routine Hereditary hemochromatosis (HCC) Expected: 07/24/2023 (Approximate), Expires: 07/23/2024 [facility] Comment on above: Expected: 07/24/2023 (Approximate), Expi res: 07/23/2024 Start: 07-24-2023 End: 07-23-2024 Iron and Iron binding capacity panel - Serum or Plasma Iron and TIBC Lab Routine Hereditary hemochromatosis (HCC) Expected: 07/24/2023 (Approximate), Expires: 07/23/2024 [facility] Comment on above: Expected: 07/24/2023 (Approximate), Expi res: 07/23/2024 Start: 07-24-2023 End: 07-24-2023 Patient encounter procedure 07/24/2023 10:00 AM EST Office Visit [facility] [address] [facility] [place] [place] [address] 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, SUPERVISOR [employer] - TECHNICAL SUPPORT ANALYST [address] [facility] [place] [place] [address] [facility] Start: 07-01-2023 [facility] Start: 06-04-2023 End: 06-04-2024 XR Wrist - right 3 Views XR wrist 3+ views right Imaging Routine Mass of joint of right wrist Expected: 06/04/2023, Expires: 06/04/2024 [facility] Work Phone: Comment on above: Expected: 06/04/2023, Expires: Start: 05-26-2023 Medicare Advantage Annual Wellness Visit Medicare Advantage Annual Wellness Visit [facility] Start: 05-07-2023 End: 05-07-2023 Clinical Support 05/07/2023 10:00 AM EST Clinical Support [facility] [address] [facility] [place] [place] [address] [facility] Start: 04-23-2023 End: 04-23-2024 CBC panel - Blood by Automated count CBC Lab Routine Hereditary hemochromatosis (HCC) Expected: 04/23/2023 (Approximate), Expires: 04/23/2024 [facility] Comment on above: Expected: 04/23/2023 (Approximate), Expi res: 04/23/2024 Start: 04-23-2023 End: 04-23-2024 Ferritin [Mass/volume] in Serum or Plasma Ferritin Lab Routine Hereditary hemochromatosis (HCC) Expected: 04/23/2023 (Approximate), Expires: 04/23/2024 [facility] Comment on above: Expected: 04/23/2023 (Approximate), Expi res: 04/23/2024 Start: 04-23-2023 End: 04-23-2024 Hemoglobin A1c measurement Hemoglobin A1c Lab Routine Type 2 diabetes mellitus without complication, without long-term current use of insulin (CMS/HCC) (HCC) Expected: 04/23/2023 (Approximate), Expires: 04/23/2024 [facility] Comment on above: Expected: 04/23/2023 (Approximate), Expi res: 04/23/2024 Start: 04-23-2023 End: 04-23-2024 Iron and Iron binding capacity panel - Serum or Plasma Iron and TIBC Lab Routine Hereditary hemochromatosis (HCC) Expected: 04/23/2023 (Approximate), Expires: 04/23/2024 [facility] Work Phone: Comment on above: Expected: 04/23/2023 (Approximate), Expi res: 04/23/2024 Start: 04-23-2023 End: 04-23-2024 Lipid 1996 panel - Serum or Plasma Lipid panel Lab Routine Type 2 diabetes mellitus without complication, without long-term current use of insulin (CMS/HCC) (HCC) Expected: 04/23/2023 (Approximate), Expires: 04/23/2024 [facility] Comment on above: Expected: 04/23/2023 (Approximate), Expi res: 04/23/2024 Start: 04-23-2023 Preventive dental service Diabetes: Dental Exam [facility] Start: 04-23-2023 End: 04-23-2024 Thyrotropin [Units/volume] in Serum or Plasma TSH Lab Routine Hypothyroidism, unspecified type Expected: 04/23/2023 (Approximate), Expires: 04/23/2024 [facility] Comment on above: Expected: 04/23/2023 (Approximate), Expi res: 04/23/2024 Start: 04-23-2023 End: 04-23-2023 Patient encounter procedure 04/23/2023 10:00 AM EST Office Visit [facility] [address] [place] [address] 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, SUPERVISOR [employer] - TECHNICAL SUPPORT ANALYST [address] [facility] [place] [place] [address] [facility] Start: 04-02-2023 End: 04-02-2023 Patient encounter procedure 04/02/2023 11:00 AM EST Office Visit [facility] Medicine [address] [facility] [place] [address] PaulSedrick figueroa, SUPERVISOR [employer] - TECHNICAL SUPPORT ANALYST [address] [facility] [place] [address] [facility] Start: 01-24-2023 Influenza vaccination Influenza Vaccine (#1) [facility] Start: 02-19-2022 Zoster Vaccines (2 of 2) Zoster Vaccines (2 of 2) [facility] Start: 2019 Pneumococcal Vaccine: 65+ Years (1 - PCV) Pneumococcal Vaccine: 65+ Years (1 - PCV) [facility] Start: 2014 RSV Immunization aged 60 or older (1 - 1-dose 60+ series) RSV Immunization aged 60 or older (1 - 1-dose 60+ series) [facility] Start: 2014 RSV Immunization for Adults (1 - Risk 60-74 years 1-dose series) RSV Immunization for Adults (1 - Risk 60-74 years 1-dose series) [facility] Start: 2004 Screening for malignant neoplasm of lung Lung Cancer Screening [facility] Start: 2004 Zoster Vaccines (1 of 2) Zoster Vaccines (1 of 2) [facility] Start: 1994 Screening for malignant neoplasm of breast Mammogram [facility] Start: 1973 DTaP/Tdap/Td Vaccines (1 - Tdap) DTaP/Tdap/Td Vaccines (1 - Tdap) [facility] Start: 1973 Hepatitis A Vaccines (1 of 2 - Risk 2-dose series) Hepatitis A Vaccines (1 of 2 - Risk 2-dose series) [facility] Start: 1972 Diabetes: Urine Albumin-Creatinine Ratio for Kidney Health Diabetes: Urine Albumin-Creatinine Ratio for Kidney Health [facility] Start: 1972 Hepatitis C screening Hepatitis C Screening [facility] Start: 1966 Depression Screening Depression Screening [facility] Start: 1964 Diabetic foot examination Diabetes: Foot Exam [facility] Start: 1964 Glaucoma screening Diabetes: Retinopathy Screening [facility] Start: 1964 Preventive dental service Diabetes: Dental Exam [facility] Start: 1960 Pneumococcal Vaccine: 65+ Years (1 - PCV) Pneumococcal Vaccine: 65+ Years (1 - PCV) [facility] Start: 01[birth year]14-1956 COVID-19 Vaccine (#1) COVID-19 Vaccine (#1) [facility] Start: 1954 DISCONTINUED Medicare Advantage Annual Wellness Visit (AWV) DISCONTINUED Medicare Advantage Annual Wellness Visit (AWV) [facility] Start: 1954 Hemoglobin A1c measurement Diabetes: Hemoglobin A1C [facility] Start: 1954 Lipid panel Lipid Panel [facility] Start: 1954 Medicare Advantage Annual Wellness Visit (AWV) Medicare Advantage Annual Wellness Visit (AWV) [facility] Start: 1954 Screening for malignant neoplasm of colon [facility] Start: 1954 Screening for osteoporosis Bone Density Scan [facility] Start: 1954 Thyroid stimulating hormone measurement TSH Level [facility] Cologuard colon canc er screening Cologuard colon cancer screening Lab Routine Colon cancer screening Ordered: 12/01/2023 [employer] Work Phone: Comment on above: Ordered: 12/01/2023 End: 02-09-2024 CT Chest for screening WO contrast [facility] [employer] Work Phone: Comment on above: Once for 1 Occurrences starting 02/09/20 until 02/09/2024 Patient Education ED Vertigo, Un specified ED Gastroenteritis, Viral (Adult) [facility] Work Phone: Patient referral [facility] Work Phone: Tissue exam [facility] [employer] [facility] Work Phone: Comment on above: Release Upon Ordering for 1 Occurrences starting 09/03/2023 XR Knee GE 4 Views [facility] End: 12-17-2023 XR Lumbar spine Views W flexion and W extension [facility] [employer] Work Phone: Comment on above: Once for 1 Occurrences starting 12/17/19 24 until 12/17/2023 [facility] Immunizations Immunization Date Immunization Notes Care Provider Carlos [facility] 05-04-2024 diphtheria, tetanus toxoids and acellular pertussis vaccine, unspecified formulation Moshe Key MD Work Phone: [facility] 05-04-2024 zoster vaccine-recombinant adjuvanted (Shingrix) 50 MCG/0.5ML vaccine Moshe Key MD Work Phone: [facility] 02-23-2024 Pfizer SARS-CoV-2 Vaccination Sedrick Bridenthal SUPERVISOR [employer] - TECHNICAL SUPPORT ANALYST Work Phone: [facility] 01-12-2024 influenza virus vacc ine, unspecified formulation Sedrick Bridenthal SUPERVISOR [employer] - TECHNICAL SUPPORT ANALYST Work Phone: [facility] 01-12-2024 influenza, high dose seasonal, preservative-free Sedrick Bridenthal SUPERVISOR [employer] - TECHNICAL SUPPORT ANALYST Work Phone: [facility] 04-23-2023 Pneumococcal Conjuga te PCV20, Pf (Prevnar 20) Sedrick Bridenthal SUPERVISOR [employer] - TECHNICAL SUPPORT ANALYST Work Phone: [facility] 03-01-2022 Moderna SARS-CoV-2 Vaccination Sedrick Bridenthal SUPERVISOR [employer] - TECHNICAL SUPPORT ANALYST Work Phone: [facility] 02-25-2022 Influenza, Seasonal, Quadrivalent, Adjuvanted Sedrick Bridenthal SUPERVISOR [employer] - TECHNICAL SUPPORT ANALYST Work Phone: [facility] 02-25-2022 influenza virus vacc ine, unspecified formulation Sedrick Bridenthal SUPERVISOR [employer] - TECHNICAL SUPPORT ANALYST Work Phone: [facility] 12-25-2021 zoster vaccine recombinant Sedrick Bridenthal SUPERVISOR [employer]MING - TECHNICAL SUPPORT ANALYST Work Phone: [facility] 04-12-2021 Moderna SARS-CoV-2 Vaccination Sedrick Bridenthal SUPERVISOR [employer]IMMING - TECHNICAL SUPPORT ANALYST Work Phone: [facility] 03-16-2021 Influenza, Seasonal, Quadrivalent, Adjuvanted Sedrick Bridenthal SUPERVISOR [employer] - TECHNICAL SUPPORT ANALYST Work Phone: [facility] 09-04-2020 Moderna SARS-CoV-2 Vaccination Sedrick Bridenthal SUPERVISOR [employer]ANG[employer] TRIMMING - TECHNICAL SUPPORT ANALYST Work Phone: [facility] 08-07-2020 Moderna SARS-CoV-2 Vaccination Sedrick Bridenthal SUPERVISOR [employer]MING - TECHNICAL SUPPORT ANALYST Work Phone: [facility] 03-17-2009 influenza virus vacc ine, whole virus Sedrick Bridenthal SUPERVISOR [employer]MING - TECHNICAL SUPPORT ANALYST Work Phone: [facility] 03-17-2009 influenza virus vacc ine, unspecified formulation Sedrick Bridenthal SUPERVISOR [employer] - TECHNICAL SUPPORT ANALYST Work Phone: [facility] 05-30-2003 hepatitis B vaccine, adult dosage Sedrick Bridenthal SUPERVISOR [employer] - TECHNICAL SUPPORT ANALYST Work Phone: [facility] 12-20-2002 hepatitis B vaccine, adult dosage Sedrick Bridenthal SUPERVISOR [employer] - TECHNICAL SUPPORT ANALYST Work Phone: [facility] 11-15-2002 hepatitis B vaccine, adult dosage Sedrick Bridenthal SUPERVISOR [employer] - TECHNICAL SUPPORT ANALYST Work Phone: [facility] Payers Date Payer Category Payer Self-pay 2023 Private Health Insurance [id number] 2023 Medicare O [id number] 2023 Medicare [id number] 2022 Medicare [id number] 1954 Unknown [id number] 1954 Unknown [id number] [id number] Private Health Insurance [facility] [id number] Unknown ANTHEM [id number] Unknown [id number] Unknown [id number] [id number] Unknown [id number] 2..840.1.120173.3.579.2.462 Unknown [id number] 2.16.840.1.100640.3.579.2.462 Unknown [id number] 2..840.1.940741.3.579.2.462 Unknown [id number] 2..840.1.279178.3.579.2.462 Unknown [id number] 2.840.1.536195.3.579.2.462 Unknown [id number] 2.840.1.438960.3.579.2.462 Unknown [id number] 2.840.1.437819.3.579.2.462 Unknown [id number] 2.840.1.716761.3.579.2.462 Unknown [id number] 2.840.1.032116.3.579.2.462 Unknown [id number] 2.840.1.152064.3.579.2.462 Unknown [id number] 2.840.1.893920.3.579.2.462 Unknown [id number] 2..840.1.604307.3.579.2.462 Unknown [id number] 2.16.840.1.415582.3.579.2.462 Unknown [id number] 2.840.1.512519.3.579.2.462 Unknown [id number] 2.16.840.1.670529.3.579.2.462 Unknown [id number] 2.16.840.1.347029.3.579.2.462 Unknown [id number] 2.16.840.1.000535.3.579.2.462 Unknown [id number] 2.16.840.1.503561.3.579.2.462 Unknown [id number] 2.16.840.1.906847.3.579.2.462 Unknown [id number] 2.16.840.1.766665.3.579.2.462 Unknown [id number] 2.16.840.1.212787.3.579.2.462 Unknown [id number] Social History Date Type Detail Facility Start: 07-01-[address] [facility] Tobacco smoking consumption unknown [facility] Start: 1955 Sex Assigned At Not on file [facility] Start: 04-02-2023 End: 05-04-2024 Gender identity Not on file [facility] Start: 04-02-2023 End: 02-23-2024 Tobacco smoking status INIS Ex-smoker [facility] Start: 05-26-1989 End: 05-26-2019 History of tobacco use Current smoker [facility] Start: 05-26-1989 End: 05-26-2019 History of tobacco use Cigarette Smoker [facility] Start: 04-02-2023 End: 05-04-2024 Cigarettes smoked current (pack per day) - Reported 1 [facility] Start: 04-02-2023 End: 02-23-2024 Tobacco use and exposure Smokeless tobacco non-user [facility] Start: 04-02-2023 End: 05-25-2024 Alcohol intake Ex-drinker (finding) [facility] Adolescent depressio n screening assessment 1 [facility] (I/We) worried wheth er (my/our) food would run out before (I/we) got money to buy more. Never true [facility] Start: 1955 Sex Assigned At Female W [facility] Within the last year , have you been afraid of your partner or ex-partner? No [facility] Start: 03-21-2023 End: 09-03-2024 Sex Female (finding) [facility] Do you belong to any clubs or organizations such as anabaptist groups, unions, fraternal or athletic groups, or school groups? Yes [facility] Are you now , , , , never or living with a partner? [facility] How often to you hav e a drink containing alcohol? Never [facility] How hard is it for y ou to pay for the very basics like food, housing, medical care, and heating Not very hard [facility] Do you feel stress - tense, restless, nervous, or anxious, or unable to sleep at night because your mind is troubled all the time - these days [OSQ] Not at all [facility] NEGATED: Highlighted rowStart: NINF History of tobacco use Passive smoker [facility] Medical Equipment Procedure Code Equipment Code Equipment Origin al Text Equipment Identifier Dates Fusion, spine, lumbar, 360 degree, starting in supine position transitioning to prone BONE,30CC CRUSH CANC FDA Start: 03-29-2024 Fusion, spine, lumbar, 360 degree, starting in supine position transitioning to prone SET SCREWS FDA Start: 03-29-2024 Fusion, spine, lumbar, 360 degree, starting in supine position transitioning to prone SET SCREWS FDA Start: 03-29-2024 Fusion, spine, lumbar, 360 degree, starting in supine position transitioning to prone SET SCREWS FDA Start: 03-29-2024 Fusion, spine, lumbar, 360 degree, starting in supine position transitioning to prone XPAC CAGE FDA Start: 03-29-2024 Fusion, spine, lumbar, 360 degree, starting in supine position transitioning to prone Collagen haemostatic agent, non-antimicrobial ()[id number] FDA Start: 03-29-2024 Fusion, spine, lumbar, 360 degree, starting in supine position transitioning to prone CORE FIX SCREWS FDA Start: 03-29-2024 Fusion, spine, lumbar, 360 degree, starting in supine position transitioning to prone CORE FIX SCREWS FDA Start: 03-29-2024 Fusion, spine, lumbar, 360 degree, starting in supine position transitioning to prone CORE FIX SCREWS FDA Start: 03-29-2024 Fusion, spine, lumbar, 360 degree, starting in supine position transitioning to prone CORE FIX SCREWS FDA Start: 03-29-2024 Fusion, spine, lumbar, 360 degree, starting in supine position transitioning to prone PUTTY, 5CC STD DBX FDA Start: 03-29-2024 Fusion, spine, lumbar, 360 degree, starting in supine position transitioning to prone RODS FDA Start: 03-29-2024 Fusion, spine, lumbar, 360 degree, starting in supine position transitioning to prone RODS FDA Start: 03-29-2024 Fusion, spine, lumbar, 360 degree, starting in supine position transitioning to prone SET SCREWS FDA Start: 03-29-2024 Clinical Notes 03-21-2023 to 11-30-2024 Telephone Encounter - ASAF Ramos CNP - 11/30/2024 6:33 AM EDTTelephone Encounter - ASAF Ramos CNP - 11/30/2024 6:33 AM EDTMbebe Stuart - 06/28/2024 9:20 AM EST Note Date & Type Note Facility 11-30-2024 Telephone encount er Note Reviewed chart. Refill appropriate. RX sent. [facility] 11-30-2024 Miscellaneous Notes Formattin g of this note might be different from the original. Reviewed chart. Refill appropriate. RX sent. documented in this encounter [facility] 11-10-2024 Telephone encount er Note Reviewed chart. Refill appropriate. RX sent. [facility] 11-10-2024 Miscellaneous Notes Formattin g of this note might be different from the original. Reviewed chart. Refill appropriate. RX sent. Prescription Request: Last medication check: 06/28/24 Last physical exam: 05/04/24 Next scheduled appointment: 05/05/25 Last date of refill on this medication: omeprazole 06/10/24 Furosemide 12/29/23 documented in this encounter [facility] 11-10-2024 Telephone encount er Note Prescription Request: Last medication check: 06/28/24 Last physical exam: 05/04/24 Next scheduled appointment: 05/05/25 Last date of refill on this medication: omeprazole 06/10/24 Furosemide 12/29/23 [facility] 09-22-2024 Telephone encount er Note error [facility] 09-22-2024 Telephone encount er Note S: The patient is calling the [facility] about the cholesterol B: Reviewed the medication and rationale for both the fenofibrate and Crestor A: For some reason, [facility] is telling her that she does not have refills on the Levothyroxine (appears she should have one left). She is asking if another refill could send to the mail away for the 150 mcg of Levothyroxine. She has two weeks left on her present pills but will then be completely out. R: She is requesting a refill request to [facility] for the Levothyroxine 150 mcg daily. Please advise. Reason for Disposition Caller has NON-URGENT medicine question about med that PCP prescribed and triager unable to answer question Protocols used: Medication Refill and Renewal [id number] [facility] 09-22-2024 Miscellaneous Notes Formattin g of this note might be different from the original. error documented in this encounter [facility] 09-22-2024 Miscellaneous Notes Formattin g of this note is different from the original. S: The patient is calling the [facility] about the cholesterol B: Reviewed the medication and rationale for both the fenofibrate and Crestor A: For some reason, [facility] is telling her that she does not have refills on the Levothyroxine (appears she should have one left). She is asking if another refill could send to the mail away for the 150 mcg of Levothyroxine. She has two weeks left on her present pills but will then be completely out. R: She is requesting a refill request to [facility] for the Levothyroxine 150 mcg daily. Please advise. Reason for Disposition Caller has NON-URGENT medicine question about med that PCP prescribed and triager unable to answer question Protocols used: Medication Refill and Renewal [id number] documented in this encounter [facility] 09-02-2024 Telephone encount er Note Prescription Request: Rosuvastatin Calcium 10 MG Oral Tablet Fenofibrate 160 MG Oral Tablet Last medication check: 06/28/24 Last physical exam: 05/04/24 Next scheduled appointment: 05/05/25 Last date of refill on this medication Rosuvastatin - 08/06/24 (Qty 90 refill 1) Fenofibrate - 08/06/24 (qty 90 refill 1) [facility] 09-02-2024 Miscellaneous Notes Formattin g of this note might be different from the original. Prescription Request: Rosuvastatin Calcium 10 MG Oral Tablet Fenofibrate 160 MG Oral Tablet Last medication check: 06/28/24 Last physical exam: 05/04/24 Next scheduled appointment: 05/05/25 Last date of refill on this medication Rosuvastatin - 08/06/24 (Qty 90 refill 1) Fenofibrate - 08/06/24 (qty 90 refill 1) documented in this encounter [facility] 08-05-2024 Telephone encount er Note Reviewed chart. Refill appropriate. RX sent. [facility] 08-05-2024 Miscellaneous Notes Formattin g of this note might be different from the original. Reviewed chart. Refill appropriate. RX sent. Lab draw tomorrow Prescription Request: Last medication check: 06-28-24 Last physical exam: 05-04-24 Next scheduled appointment: 05-05-25 Last date of refill on this medication 07-07-24 documented in this encounter [facility] 08-04-2024 Telephone encount er Note Lab draw tomorrow [facility] 08-04-2024 Telephone encount er Note Prescription Request: Last medication check: 06-28-24 Last physical exam: 05-04-24 Next scheduled appointment: 05-05-25 Last date of refill on this medication 07-07-24 [facility] 07-19-2024 Telephone encount er Note Prescription Request: Last medication check: 01/21/24 Last physical exam: 05/04/24 Next scheduled appointment: 05/05/25 Last date of refill on this medication Irbesartan 05/03/24, chlorthalidone 05/03/24, Atrovent 07/05/24 [facility] 07-19-2024 Miscellaneous Notes Formattin g of this note might be different from the original. Prescription Request: Last medication check: 01/21/24 Last physical exam: 05/04/24 Next scheduled appointment: 05/05/25 Last date of refill on this medication Irbesartan 05/03/24, chlorthalidone 05/03/24, Atrovent 07/05/24 documented in this encounter [facility] 07-05-2024 Telephone encount er Note Notified, no further questions. [facility] 07-05-2024 Miscellaneous Notes Formattin g of this note might be different from the original. Notified, no further questions. Prescription sent to [facility] Pt came in wanting a refill on the following, I didn't see it on her med list, but pt stated she had talked to Maria Luisa about it and she was supposed to bring the spray in so she'd know what the mediation was: Ipratropium bromide nasal solution .03 30ml Prescription Request: Last medication check: 06/28/24 Last physical exam: 05/04/24 Next scheduled appointment: 05/05/25 documented in this encounter [facility] 07-05-2024 Telephone encount er Note Prescription sent to [facility] 07-05-2024 Telephone encount er Note Pt came in wanting a refill on the following, I didn't see it on her med list, but pt stated she had talked to Maria Luisa about it and she was supposed to bring the spray in so she'd know what the mediation was: Ipratropium bromide nasal solution .03 30ml Prescription Request: Last medication check: 06/28/24 Last physical exam: 05/04/24 Next scheduled appointment: 05/05/25 Why Not Give Back 06-28-2024 Evaluation + Plan note Associ ated Problem(s): Pure hypercholesterolemia Patient scheduled for lipid check next week. Continue fenofibrate 160 mg daily and atorvastatin 20 mg daily Why Not Give Back 06-28-2024 Miscellaneous Notes Associate d Problem(s): Pure hypercholesterolemia Patient scheduled for lipid check next week. Continue fenofibrate 160 mg daily and atorvastatin 20 mg daily Associated Problem(s): Osteoarthritis of right knee Discussed risks and benefits of corticosteroid joint injection. Patient would like to proceed. Joint Injection Procedure Note Indications and potential risks and complications of the procedure were explained to the patient. Patient was informed that there would be some pain associated with the procedure, and that the injection might not relieve the symptoms. In addition, possible side effects, including increased pain, infection, or bleeding could result from the injection. Patient also told that there are limitations on the frequency and amount of injections in any joint. Questions were answered and the patient agreed to the procedure. Sterile technique was employed. Prep: Betadine. 1 ml of Depo-Medrol (40 mg/ml) with 1 ml of 2% Lidocaine right knee using a 25 gauge 1.5 inch needle. Single attempt to inject the knee through the lateral lower point was unsuccessful. Provider met resistance and was unable to complete the injection. Needle was withdrawn, no medication was injected. Patient declined second attempt Recommend ultrasound guided joint injection if patient would like to proceed with joint injection. Band-Aid applied and instructions given. Patient told to use ice for worsening pain and avoid forceful or strenuous use of affected area for 1-2 weeks. Patient may take OTC analgesics or usual pain medication for further relief. Patient to let us know if she would like referral to sports medicine for further evaluation and possible corticosteroid injection (may need ultrasound) documented in this encounter [facility] 06-28-2024 Miscellaneous Notes Associate d Problem(s): Pure hypercholesterolemia Patient scheduled for lipid check next week. Continue fenofibrate 160 mg daily and atorvastatin 20 mg daily Associated Problem(s): Osteoarthritis of right knee Discussed risks and benefits of corticosteroid joint injection. Patient would like to proceed. Joint Injection Procedure Note Indications and potential risks and complications of the procedure were explained to the patient. Patient was informed that there would be some pain associated with the procedure, and that the injection might not relieve the symptoms. In addition, possible side effects, including increased pain, infection, or bleeding could result from the injection. Patient also told that there are limitations on the frequency and amount of injections in any joint. Questions were answered and the patient agreed to the procedure. Sterile technique was employed. Prep: Betadine. 1 ml of Depo-Medrol (40 mg/ml) with 1 ml of 2% Lidocaine right knee using a 25 gauge 1.5 inch needle. Single attempt to inject the knee through the lateral lower point was unsuccessful. Provider met resistance and was unable to complete the injection. Needle was withdrawn, no medication was injected. Patient declined second attempt Recommend ultrasound guided joint injection if patient would like to proceed with joint injection. Band-Aid applied and instructions given. Patient told to use ice for worsening pain and avoid forceful or strenuous use of affected area for 1-2 weeks. Patient may take OTC analgesics or usual pain medication for further relief. Patient to let us know if she would like referral to sports medicine for further evaluation and possible corticosteroid injection (may need ultrasound) Addended by: SEDRICK HEMPHILL on: 06/29/2024 06:05 PM Modules accepted: Level of Service documented in this encounter [facility] 06-28-2024 Evaluation + Plan note Associ ated Problem(s): Osteoarthritis of right knee Discussed risks and benefits of corticosteroid joint injection. Patient would like to proceed. Joint Injection Procedure Note Indications and potential risks and complications of the procedure were explained to the patient. Patient was informed that there would be some pain associated with the procedure, and that the injection might not relieve the symptoms. In addition, possible side effects, including increased pain, infection, or bleeding could result from the injection. Patient also told that there are limitations on the frequency and amount of injections in any joint. Questions were answered and the patient agreed to the procedure. Sterile technique was employed. Prep: Betadine. 1 ml of Depo-Medrol (40 mg/ml) with 1 ml of 2% Lidocaine right knee using a 25 gauge 1.5 inch needle. Single attempt to inject the knee through the lateral lower point was unsuccessful. Provider met resistance and was unable to complete the injection. Needle was withdrawn, no medication was injected. Patient declined second attempt Recommend ultrasound guided joint injection if patient would like to proceed with joint injection. Band-Aid applied and instructions given. Patient told to use ice for worsening pain and avoid forceful or strenuous use of affected area for 1-2 weeks. Patient may take OTC analgesics or usual pain medication for further relief. Patient to let us know if she would like referral to sports medicine for further evaluation and possible corticosteroid injection (may need ultrasound) Why Not Give Back 06-28-2024 History of Presen t illness Narrative Images from the original note were not included. 06/28/2024 Yodit Landin (: 1955) is a 68 y.o. female , Established patient, here for evaluation of the following chief complaint(s): Follow-up and Knee Pain ASSESSMENT/PLAN: 1. Osteoarthritis of right knee, unspecified osteoarthritis type Assessment & Plan: Discussed risks and benefits of corticosteroid joint injection. Patient would like to proceed. Joint Injection Procedure Note Indications and potential risks and complications of the procedure were explained to the patient. Patient was informed that there would be some pain associated with the procedure, and that the injection might not relieve the symptoms. In addition, possible side effects, including increased pain, infection, or bleeding could result from the injection. Patient also told that there are limitations on the frequency and amount of injections in any joint. Questions were answered and the patient agreed to the procedure. Sterile technique was employed. Prep: Betadine. 1 ml of Depo-Medrol (40 mg/ml) with 1 ml of 2% Lidocaine right knee using a 25 gauge 1.5 inch needle. Single attempt to inject the knee through the lateral lower point was unsuccessful. Provider met resistance and was unable to complete the injection. Needle was withdrawn, no medication was injected. Patient declined second attempt Recommend ultrasound guided joint injection if patient would like to proceed with joint injection. Band-Aid applied and instructions given. Patient told to use ice for worsening pain and avoid forceful or strenuous use of affected area for 1-2 weeks. Patient may take OTC analgesics or usual pain medication for further relief. Patient to let us know if she would like referral to sports medicine for further evaluation and possible corticosteroid injection (may need ultrasound) 2. Pure hypercholesterolemia Assessment & Plan: Patient scheduled for lipid check next week. Continue fenofibrate 160 mg daily and atorvastatin 20 mg daily Follow up for with primary care provider as scheduled. SUBJECTIVE/OBJECTIVE: JAIME Landin (: 1955) is a 68 y.o. female , Established patient, here for the evaluation of the following chief complaint(s): Follow-up and Knee Pain Hyperlipidemia- needs lipids checked today. Atorvastatin was increased from 10 mg to 20 mg in 04/2024, fenofibrate 160 mg was then added in May. Right knee pain- xray showed mild degenerative changes. Denies any swelling. Has not had much improvement with it. Hurts to walk on it. Has been using topical muscle rub that helps some and acetaminophen at 1000 mg 2-3 times daily. Would like knee injection today. Getting over cold. Taking mucinex dm and reports getting better with time. Still has some congestion in the sinuses. States she does not really feel sick, no fever chills or significant cough Prior to Admission medications Medication Sig Start Date End Date Taking? Authorizing Provider omeprazole (PriLOSEC) [address] capsule TAKE 1 CAPSULE BY MOUTH IN THE MORNING BEFORE BREAKFAST 06/10/24 ASAF Ramos CNP acetaminophen (Tylenol) 500 MG tablet Take 500 mg by mouth in the morning and 500 mg in the evening. Historical Provider, atorvastatin (Lipitor) 20 MG tablet Take 1 tablet (20 mg) by mouth daily. 05/06/24 06/05/24 Moshe Key MD chlorthalidone (Hygroton) 25 MG tablet TAKE 1 TABLET BY MOUTH DAILY 05/03/24 ASAF Ramos CNP DIGESTIVE ENZYMES PO Take 175 mg by mouth in the morning and 175 mg at noon and 175 mg in the evening. Historical Provider, fenofibrate (Triglide) 160 MG tablet Take 1 tablet (160 mg) by mouth daily. 06/04/24 07/04/24 ASAF Jacinto CNP furosemide (Lasix) 20 MG tablet TAKE 1 TABLET BY MOUTH DAILY 12/29/23 ASAF Ramos CNP irbesartan (Avapro) 300 MG tablet TAKE 1 TABLET BY MOUTH DAILY 05/03/24 ASAF Ramos CNP levothyroxine (Synthroid, Levoxyl) 150 MCG tablet Take 1 tablet (150 mcg) by mouth every morning (before breakfast). 06/04/24 12/01/24 ASAF Jacinto CNP metFORMIN (Glucophage) 1000 MG tablet TAKE 1 TABLET BY MOUTH IN THE MORNING AND 1 TABLET BY MOUTH IN THE EVENING TAKE WITH MEALS 06/02/24 ASAF Ramos CNP NON FORMULARY Gurmur 134 mg 2 tablets daily po Historical Provider, NON FORMULARY Cardio 450 mg daily po for heart health Historical ProviderMD NON FORMULARY 4Life Classic 600 mg 3 tablets daily po Historical Provider, nystatin (Mycostatin) cream APPLY TOPICALLY TWICE DAILY 06/10/24 ASAF Ramos CNP omega-3 (Fish Oil) 1200 MG capsule Take 1,200 mg by mouth daily. Historical Provider, Vitamin E 450 MG (1000 UT) capsule Take 450 mg by mouth daily. Historical Provider, Review of Systems Constitutional: Negative for activity change, chills, fatigue and fever. Respiratory: Negative. Cardiovascular: Negative. Musculoskeletal: Positive for arthralgias. Vitals: 06/28/24 0930 06/28/24 1000 BP: (!) 149/83 (!) 140/81 Pulse: 83 Resp: 24 SpO2: 98% Weight: 206 lb 3.2 oz (93.5 kg) Physical Exam Constitutional: General: She is not in acute distress. Appearance: Normal appearance. She is not ill-appearing. HENT: Head: Normocephalic and atraumatic. Nose: Congestion present. Mouth/Throat: Mouth: Mucous membranes are moist. Pharynx: Oropharynx is clear. No posterior oropharyngeal erythema. Eyes: Conjunctiva/sclera: Conjunctivae normal. Cardiovascular: Rate and Rhythm: Normal rate and regular rhythm. Pulses: Normal pulses. Heart sounds: Normal heart sounds. Pulmonary: Effort: Pulmonary effort is normal. Breath sounds: Normal breath sounds. Musculoskeletal: Right knee: Normal range of motion. Tenderness present over the lateral joint line. No medial joint line, MCL, LCL, ACL, PCL or patellar tendon tenderness. Left knee: Normal. Lymphadenopathy: Cervical: No cervical adenopathy. Skin: General: Skin is warm and dry. Neurological: Mental Status: She is alert and oriented to person, place, and time. An electronic signature was used to authenticate this note. ASAF Otoole CNP 06/28/2024 6:13 PM Patient was identified by name and Date of . documented in this encounter [facility] 06-28-2024 History of Presen t illness Narrative Images from the original note were not included. 06/28/2024 Yodit Ladnin (: 1955) is a 68 y.o. female , Established patient, here for evaluation of the following chief complaint(s): Follow-up and Knee Pain ASSESSMENT/PLAN: 1. Osteoarthritis of right knee, unspecified osteoarthritis type Assessment & Plan: Discussed risks and benefits of corticosteroid joint injection. Patient would like to proceed. Joint Injection Procedure Note Indications and potential risks and complications of the procedure were explained to the patient. Patient was informed that there would be some pain associated with the procedure, and that the injection might not relieve the symptoms. In addition, possible side effects, including increased pain, infection, or bleeding could result from the injection. Patient also told that there are limitations on the frequency and amount of injections in any joint. Questions were answered and the patient agreed to the procedure. Sterile technique was employed. Prep: Betadine. 1 ml of Depo-Medrol (40 mg/ml) with 1 ml of 2% Lidocaine right knee using a 25 gauge 1.5 inch needle. Single attempt to inject the knee through the lateral lower point was unsuccessful. Provider met resistance and was unable to complete the injection. Needle was withdrawn, no medication was injected. Patient declined second attempt Recommend ultrasound guided joint injection if patient would like to proceed with joint injection. Band-Aid applied and instructions given. Patient told to use ice for worsening pain and avoid forceful or strenuous use of affected area for 1-2 weeks. Patient may take OTC analgesics or usual pain medication for further relief. Patient to let us know if she would like referral to sports medicine for further evaluation and possible corticosteroid injection (may need ultrasound) 2. Pure hypercholesterolemia Assessment & Plan: Patient scheduled for lipid check next week. Continue fenofibrate 160 mg daily and atorvastatin 20 mg daily Follow up for with primary care provider as scheduled. SUBJECTIVE/OBJECTIVE: HPI - Yodit Landin (: 1955) is a 68 y.o. female , Established patient, here for the evaluation of the following chief complaint(s): Follow-up and Knee Pain Hyperlipidemia- needs lipids checked today. Atorvastatin was increased from 10 mg to 20 mg in 04/2024, fenofibrate 160 mg was then added in May. Right knee pain- xray showed mild degenerative changes. Denies any swelling. Has not had much improvement with it. Hurts to walk on it. Has been using topical muscle rub that helps some and acetaminophen at 1000 mg 2-3 times daily. Would like knee injection today. Getting over cold. Taking mucinex dm and reports getting better with time. Still has some congestion in the sinuses. States she does not really feel sick, no fever chills or significant cough Prior to Admission medications Medication Sig Start Date End Date Taking? Authorizing Provider omeprazole (PriLOSEC) [address] capsule TAKE 1 CAPSULE BY MOUTH IN THE MORNING BEFORE BREAKFAST 06/10/24 ASAF Ramos CNP acetaminophen (Tylenol) 500 MG tablet Take 500 mg by mouth in the morning and 500 mg in the evening. Historical Provider, atorvastatin (Lipitor) 20 MG tablet Take 1 tablet (20 mg) by mouth daily. 05/06/24 06/05/24 Moshe Key MD chlorthalidone (Hygroton) 25 MG tablet TAKE 1 TABLET BY MOUTH DAILY 05/03/24 ASAF Ramos CNP DIGESTIVE ENZYMES PO Take 175 mg by mouth in the morning and 175 mg at noon and 175 mg in the evening. Historical Provider, fenofibrate (Triglide) 160 MG tablet Take 1 tablet (160 mg) by mouth daily. 06/04/24 07/04/24 ASAF Jacinto CNP furosemide (Lasix) 20 MG tablet TAKE 1 TABLET BY MOUTH DAILY 12/29/23 ASAF Ramos CNP irbesartan (Avapro) 300 MG tablet TAKE 1 TABLET BY MOUTH DAILY 05/03/24 ASAF Ramos CNP levothyroxine (Synthroid, Levoxyl) 150 MCG tablet Take 1 tablet (150 mcg) by mouth every morning (before breakfast). 06/04/24 12/01/24 ASAF Jacinto CNP metFORMIN (Glucophage) 1000 MG tablet TAKE 1 TABLET BY MOUTH IN THE MORNING AND 1 TABLET BY MOUTH IN THE EVENING TAKE WITH MEALS 06/02/24 ASAF Ramos CNP NON FORMULARY Gurmur 134 mg 2 tablets daily po Historical Provider, NON FORMULARY Cardio 450 mg daily po for heart health Historical Provider, NON FORMULARY 4Life Classic 600 mg 3 tablets daily po Historical Provider, nystatin (Mycostatin) cream APPLY TOPICALLY TWICE DAILY 06/10/24 ASAF Ramos CNP omega-3 (Fish Oil) 1200 MG capsule Take 1,200 mg by mouth daily. Historical Provider, Vitamin E 450 MG (1000 UT) capsule Take 450 mg by mouth daily. Historical Provider, Review of Systems Constitutional: Negative for activity change, chills, fatigue and fever. Respiratory: Negative. Cardiovascular: Negative. Musculoskeletal: Positive for arthralgias. Vitals: 06/28/24 0930 06/28/24 1000 BP: (!) 149/83 (!) 140/81 Pulse: 83 Resp: 24 SpO2: 98% Weight: 206 lb 3.2 oz (93.5 kg) Physical Exam Constitutional: General: She is not in acute distress. Appearance: Normal appearance. She is not ill-appearing. HENT: Head: Normocephalic and atraumatic. Nose: Congestion present. Mouth/Throat: Mouth: Mucous membranes are moist. Pharynx: Oropharynx is clear. No posterior oropharyngeal erythema. Eyes: Conjunctiva/sclera: Conjunctivae normal. Cardiovascular: Rate and Rhythm: Normal rate and regular rhythm. Pulses: Normal pulses. Heart sounds: Normal heart sounds. Pulmonary: Effort: Pulmonary effort is normal. Breath sounds: Normal breath sounds. Musculoskeletal: Right knee: Normal range of motion. Tenderness present over the lateral joint line. No medial joint line, MCL, LCL, ACL, PCL or patellar tendon tenderness. Left knee: Normal. Lymphadenopathy: Cervical: No cervical adenopathy. Skin: General: Skin is warm and dry. Neurological: Mental Status: She is alert and oriented to person, place, and time. An electronic signature was used to authenticate this note. ASAF Otoole CNP 06/28/2024 6:13 PM Patient was identified by name and Date of . documented in this encounter [facility] 06-28-2024 Instructions ASAF Ramos CNP - 06/28/2024 9:[address] Morton about ortho specialist regarding the knee. May need ultrasound if getting injection in the knee. documented in this encounter [facility] 06-28-2024 Instructions ASAF Ramos CNP - 06/28/2024 9:[address] Morton about ortho specialist regarding the knee. May need ultrasound if getting injection in the knee. documented in this encounter [facility] 06-28-2024 Note Addended by: SEDRICK BRADLEY on: 06/29/2024 06:05 PM Modules accepted: Level of Service [facility] 06-16-2024 Telephone encount er Note Added. Pt aware. [facility] 06-16-2024 Miscellaneous Notes Formattin g of this note might be different from the original. Added. Pt aware. Yes we can do it at that time- please add to the appt note Notified, asking if you can do this injection at her visit on 06/28/24. Reviewed knee xray. Shows mild osteoarthritis and some calcium deposits within the joint that are likely causing the pain. Recommend considering a corticosteroid knee injection (this can be done here or she can go and see ortho specialist for this) Received fax, placed in [employer]. Faxed to [facility] Name of caller: Yodit Contact phone number: [phone] Relationship to Patient: patient Provider: 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 Practice: [facility] Chief Complaint/Reason for Call: The patient states she got the knee xrays done at [facility] in [place]. Please advise Best time of day caller can be reached: Any Patient advised that office/PCP has 24-48 business hours to return their call: No Left a message to return call. CAC: If patient calls back please obtain where she got her knee xrays done at. We got a fax stating that there was no radiology report that they had for this. Will call Yodit and see where she got these done/when she got these done. Did we get these? Called and spoke with [facility] medical records, they will be sending over x-ray results to us now. FYI I have not received the xray results I had sent an MYRNA over to [facility]....have you gotten these yet? Sent MYRNA to [facility] to send xray results. Noted. I think she is referring to xray of knee at [facility]. Will just need to make sure we receive results later this week. Name of caller: yodit Contact phone number: [phone] Relationship to Patient: patient Provider: 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 Practice: [facility] Chief Complaint/Reason for Call: pt called in to let provider that she got labs done Best time of day caller can be reached: AM Patient advised that office/PCP has 24-48 business hours to return their call: Yes documented in this encounter [facility] 06-16-2024 Telephone encount er Note Yes we can do it at that time- please add to the appt note [facility] 06-16-2024 Telephone encount er Note Notified, asking if you can do this injection at her visit on 06/28/24. [facility] 06-16-2024 Telephone encount er Note Reviewed knee xray. Shows mild osteoarthritis and some calcium deposits within the joint that are likely causing the pain. Recommend considering a corticosteroid knee injection (this can be done here or she can go and see ortho specialist for this) [facility] 06-16-2024 Telephone encount er Note Received fax, placed in [employer]. [facility] 06-15-2024 Telephone encount er Note Faxed to [facility] 06-15-2024 Telephone encount er Note Name of caller: Yodit Contact phone number: [phone] Relationship to Patient: patient Provider: 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 Practice: [facility] Chief Complaint/Reason for Call: The patient states she got the knee xrays done at [facility] in [place]. Please advise Best time of day caller can be reached: Any Patient advised that office/PCP has 24-48 business hours to return their call: No [facility] 06-15-2024 Telephone encount er Note Left a message to return call. CAC: If patient calls back please obtain where she got her knee xrays done at. [facility] 06-15-2024 Telephone encount er Note We got a fax stating that there was no radiology report that they had for this. Will call Yodit and see where she got these done/when she got these done. [facility] 06-15-2024 Telephone encount er Note Did we get these? [facility] 06-14-2024 Telephone encount er Note Called and spoke with [facility] medical records, they will be sending over x-ray results to us now. FYI [facility] 06-10-2024 Telephone encount er Note [facility] 06-10-2024 Miscellaneous Notes Formattin g of this note might be different from the original. Prescription Request: Last medication check: 01/21/24 Last physical exam: 05/04/24 Next scheduled appointment: 06/28/24 Last date of refill on this medication 12/10/23 documented in this encounter [facility] 06-10-2024 Telephone encount er Note Prescription Request: Last medication check: 01/21/24 Last physical exam: 05/04/24 Next scheduled appointment: 06/28/24 Last date of refill on this medication 12/10/23 [facility] 06-10-2024 Telephone encount er Note Prescription Request: Last medication check: 01/21/24 Last physical exam: 05/04/24 Next scheduled appointment: 06/28/24 Last date of refill on this medication Omeprazole 12/03/23, Vit D 01/16/24 [facility] 06-10-2024 Miscellaneous Notes Formattin g of this note is different from the original. Prescription Request: Last medication check: 01/21/24 Last physical exam: 05/04/24 Next scheduled appointment: 06/28/24 Last date of refill on this medication Omeprazole 12/03/23, Vit D 01/16/24 documented in this encounter [facility] 06-08-2024 Telephone encount er Note I have not received the xray results [facility] 06-08-2024 Telephone encount er Note I had sent an MYRNA over to [facility]....have you gotten these yet? [facility] 06-02-2024 Telephone encount er Note Sent MYRNA to [facility] to send xray results. [facility] 06-02-2024 Telephone encount er Note Reviewed chart. Refill appropriate. RX sent. [facility] 06-02-2024 Miscellaneous Notes Formattin g of this note might be different from the original. Reviewed chart. Refill appropriate. RX sent. Prescription Request: Last medication check: 01/21/24 Last physical exam: 05/04/24 Next scheduled appointment: 06/28/24 Last date of refill on this medication 03/25/24 90 day 1 refill documented in this encounter [facility] 06-02-2024 Telephone encount er Note Prescription Request: Last medication check: 01/21/24 Last physical exam: 05/04/24 Next scheduled appointment: 06/28/24 Last date of refill on this medication 03/25/24 90 day 1 refill [facility] 05-25-2024 Evaluation + Plan note Associ ated Problem(s): Acute pain of right knee Will obtain imaging due to history of osteoarthritis to evaluate status. Has been couple years since last imaging per patient. Recommend heather BLEDSOE to see chiropractor for knee, pending imaging results, consider PT and or referral to sports med [facility] 05-25-2024 Miscellaneous Notes Associate d Problem(s): Acute pain of right knee Will obtain imaging due to history of osteoarthritis to evaluate status. Has been couple years since last imaging per patient. Recommend heather BLEDSOE to see chiropractor for knee, pending imaging results, consider PT and or referral to sports med documented in this encounter [facility] 05-25-2024 Telephone encount er Note Noted. I think she is referring to xray of knee at [facility]. Will just need to make sure we receive results later this week. [facility] 05-25-2024 Telephone encount er Note Name of caller: yodit Contact phone number: [phone] Relationship to Patient: patient Provider: 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 Practice: [facility] Chief Complaint/Reason for Call: pt called in to let provider that she got labs done Best time of day caller can be reached: AM Patient advised that office/PCP has 24-48 business hours to return their call: Yes [facility] 05-25-2024 Note Exam Date Time Procedure Performing Provider Status 05/25/24 12:28 PM XR Knee 3 Views Right Contributor_sy stem, FUJI; Auth (Verified) [id number] ORIGINAL EXAMINATION: THREE XRAY VIEWS OF THE RIGHT KNEE05/25/2024 12:29 pm KNEE 3 VIEWS RIGHT COMPARISON: None available HISTORY: ORDERING SYSTEM PROVIDED HISTORY: Reason for Exam: right knee pain FINDINGS: Mineralization and bony alignment are normal. There is no fracture or dislocation. No periosteal reaction. Osteophytes noted bilateral femoral condyles and the lateral tibial plateau. Chondrocalcinosis within the lateral joint space. There is no joint effusion. The soft tissues appear normal. IMPRESSION: No acute osseous injury. Mild degenerative changes. Interpreted by: Antonino Bazzi MD Preliminary Report By: Antonino Bazzi MD Electronically signed By Antonino Bazzi MD Dictated Date: 05/25/2024 9:33:27 PM Prelim Date: 05/25/2024 9:34:14 PM Sign Date: 05/25/2024 9:34:14 PM Ordering Provider: SEDRICK HEMPHILL [facility]12-31-2024 History of Present illness Narrative * Dian [facility] - 05/25/2024 10:40 AM EST Patient was identified by name and Date of . * 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, [employer] - TECHNICAL SUPPORT ANALYST - 05/25/2024 10:40 AM EST Images from the original note were not included. 05/25/2024 Yodit Landin (: 1955) is a 68 y.o. female , Established patient, here for evaluation of thefollowing chief complaint(s): Knee Pain (Right-started a week ago) ASSESSMENT/PLAN: 1. Acute pain of right knee Assessment & Plan: Will obtain imaging due to history of osteoarthritis to evaluate status. Has been couple years since last imaging per patient. Recommend heather BLEDSOE to see chiropractor for knee, pending imaging results, consider PT and or referral to sports med Orders: - XR knee 4+ views right Follow up for as directed pending test results. SUBJECTIVE/OBJECTIVE: HPI - Yodit Landin (: 1955) is a 68 y.o. female , Established patient, here for the evaluation ofthe following chief complaint(s): Knee Pain (Right-started a week ago) Patient states she was crossing her right leg over her left knee to put her shoe on about a week ago and when she went to put it back down she heard a crunching noise and immediately had some pain inthe right knee. Denies any swelling. Has not had much improvement with it. Hurts to walk on it. Hasbeen using topical muscle rub that helps some and acetaminophen at 1000 mg 2-3 times daily. States she does have arthritis in that knee but it has been quite sometime since she had any imaging of it.She also has seen a chiropractor for which she intends to go see later today for her knee. Prior to Admission medications Medication Sig Start Date End Date Taking? Authorizing Provider acetaminophen (Tylenol) 500 MG tablet Take 500 mg by mouth in the morning and 500 mg in the evening. Yes Historical Provider, atorvastatin (Lipitor) 20 MG tablet Take 1 tablet (20 mg) by mouth daily. 05/06/24 06/05/24 Yes Moshe Key MD chlorthalidone (Hygroton) 25 MG tablet TAKE 1 TABLET BY MOUTH DAILY 05/03/24 Yes 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 APRN - GEMMA DIGESTIVE ENZYMES PO Take 175 mg by mouth in the morning and 175 mg at noon and 175 mg in the evening. Yes Historical Provider, furosemide (Lasix) 20 MG tablet TAKE 1 TABLET BY MOUTH DAILY 12/29/23 Yes 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 APRN - GEMMA irbesartan (Avapro) 300 MG tablet TAKE 1 TABLET BY MOUTH DAILY 05/03/24 Yes Sedrickray Hemphill APRN- GEMMA levothyroxine (Synthroid, Levoxyl) 150 MCG tablet Take 1 tablet (150 mcg) by mouth every morning (before breakfast). 05/06/24 06/05/24 Yes Moshe Key MD metFORMIN (Glucophage) 1000 MG tablet Take 1 tablet (1,000 mg) by mouth in the morning and 1 tablet(1,000 mg) in the evening. Take with meals. 03/25/24 Yes ASAF Ramos CNP NON FORMULARY Gurmur 134 mg 2 tablets daily po Yes Historical Provider, NON FORMULARY Cardio 450 mg daily po for heart health Yes Historical ProviderMD NON FORMULARY 4Life Classic 600 mg 3 tablets daily po Yes Historical Provider, nystatin (Mycostatin) cream Apply topically 2 times daily. 12/10/23 Yes Moshe Key MD omega-3 (Fish Oil) 1200 MG capsule Take 1,200 mg by mouth daily. Yes Historical Provider, omeprazole (PriLOSEC) [address] capsule Take 1 capsule (40 mg) by mouth every morning (before breakfast). 12/03/23 Yes ASAF Ramos CNP Vitamin E 450 MG (1000 UT) capsule Take 450 mg by mouth daily. Yes Historical Provider, Review of Systems Constitutional: Positive for activity change. Negative for chills, diaphoresis, fatigue and fever. Respiratory: Negative. Cardiovascular: Negative. Musculoskeletal: Positive for arthralgias (Right knee). Negative for back pain. Vitals: 05/25/24 1047 BP: 119/73 Pulse: 109 Resp: 20 Temp: 36.5 C (97.7 F) TempSrc: Infrared SpO2: 96% Weight: 201 lb 3.2 oz (91.3 kg) Physical Exam Constitutional: General: She is not in acute distress. Appearance: Normal appearance. She is not ill-appearing. Cardiovascular: Rate and Rhythm: Normal rate and regular rhythm. Pulses: Normal pulses. Heart sounds: Normal heart sounds. Pulmonary: Effort: Pulmonary effort is normal. Breath sounds: Normal breath sounds. Musculoskeletal: Right knee: Swelling and crepitus present. Decreased range of motion. Tenderness present over the lateral joint line. No patellar tendon tenderness. Normal alignment and normal patellar mobility. Left knee: Normal. Right lower leg: No edema. Left lower leg: No edema. Comments: Unable to perform stability tests d/t patient tolerability. Neurological: Mental Status: She is alert. An electronic signature was used to authenticate this note. ASAF Otoole CNP 05/25/2024 2:32 PM documented in this [facility]12-31-2024 Instructions* Patient Instructions* ASAF Ramos CNP - 05/25/2024 10:40 AM EST Try the Voltaren cream on joints. Ice and elevate right knee, try compression sleeve during the day. documented in this [facility]12-30-2024 Telephone encounter Note* Telephone Encounter - Gerri Hazel RN - 05/24/2024 11:23 AM EST S: The patient is calling the [facility] about right knee pain B: This started a week ago today A: She has had some issues with this knee but no known injury. She was putting on her shoes and stood up and heard a sound (not a pop); there was extreme pain in the knee. The pain is not improved with time. She is using Lidocaine patches and arthritis cream as well as tylenol. These help but nevercompletely alleviate the pain. No redness, open areas or swelling. R: Appointment made, insurance verified and care advice reviewed. Reason for Disposition MODERATE pain (e.g., symptoms interfere with work or school, limping) and present > 3 days Protocols used: Knee [id number] [id number] Miscellaneous Notes* Telephone Encounter - Gerri Mcmillan RN - 05/24/2024 11:23 AM EST S: The patient is calling the [facility] about right knee pain B: This started a week ago today A: She has had some issues with this knee but no known injury. She was putting on her shoes and stood up and heard a sound (not a pop); there was extreme pain in the knee. The pain is not improved with time. She is using Lidocaine patches and arthritis cream as well as tylenol. These help but nevercompletely alleviate the pain. No redness, open areas or swelling. R: Appointment made, insurance verified and care advice reviewed. Reason for Disposition MODERATE pain (e.g., symptoms interfere with work or school, limping) and present > 3 days Protocols used: Knee [id number] documented in this [facility]12-19-2024 Evaluation note* Diagnosis Onset Date Resolution Status Admit Date S/P lumbar fusion acute Decembe r 2023 1:20pm S/P lumbar fusion acute Februar y 2024 11:24am Osteoarthritis of right knee acute July 07, 2024 10:48am Osteoarthritis of right knee acute July 28, 2024 10:48am Cervical myelopathy acute July 30, 2024 10:46am [facility] Work Phone: [phone] 567-981612-10-2024 Evaluation + Plan note* Assessment & Plan Note - Moshe Key MD - 05/04/2024 9:30 AM ESTAssociated Problem(s): Hypertension Initially elevated, recheck was normal, continue chlorthalidone 25 mg daily and irbesartan 300 mg daily [id number] Evaluation + Plan note* Assessment & Plan Note - Moshe Key MD - 05/04/2024 9:30 AM ESTAssociated Problem(s): Gastroesophageal reflux disease without esophagitis Stable, continue omeprazole 40 mg daily [id number] Evaluation + Plan note* Assessment & Plan Note - Moshe Key MD - 05/04/2024 9:30 AM ESTAssociated Problem(s): Hereditary hemochromatosis (HCC) Stable, recheck lab work today. Orders: CBC auto differential; Future Ferritin; Future Iron and TIBC; Future CBC auto differential Ferritin Iron and TIBC [id number] Evaluation + Plan note* Assessment & Plan Note - Moshe Key MD - 05/04/2024 9:30 AM ESTAssociated Problem(s): Hypothyroidism Controlled, continue levothyroxine 100 mcg daily Orders: TSH; Future TSH [id number] Evaluation + Plan note* Assessment & Plan Note - Moshe Key MD - 05/04/2024 9:30 AM ESTAssociated Problem(s): Type 2 diabetes mellitus without complication, without long-term current useof insulin (CMS/HCC) (HCC) Controlled, continue metformin 1000 mg twice a day Orders: Comprehensive metabolic panel; Future Hemoglobin A1c; Future Comprehensive metabolic panel Hemoglobin A1c [id number] Evaluation + Plan note* Assessment & Plan Note - Moshe Key MD - 05/04/2024 9:30 AM ESTAssociated Problem(s): Pure hypercholesterolemia Controlled, continue atorvastatin 10 mg daily Orders: Lipid panel; Future Lipid panel [id number] History of Present illness Narrative* Allison Dunlap MA - 05/04/2024 9:30 AM EST Patient verified by last name and date of . * Moshe Key MD - 05/04/2024 9:30 AM EST Images from the original note were not included. [facility] - [address] [address] Visit Type: Medicare Annual Wellness PCP: Moshe Key MD Reason for Visit: Medicare Annual Wellness Visit Subsequent, Blood Work, and Health Maintenance (Tdap vaccine- agree/2nd shingles vaccine- advised to go to pharmacy /Dental exam- not done/Eye exam- go to [facility] in [place] - will send for record ) Assessment and Plan Assessment & Plan Medicare annual wellness visit, subsequent Primary hypertension Initially elevated, recheck was normal, continue chlorthalidone 25 mg daily and irbesartan 300 mg daily Gastroesophageal reflux disease without esophagitis Stable, continue omeprazole 40 mg daily Hereditary hemochromatosis (HCC) Stable, recheck lab work today. Orders: CBC auto differential; Future Ferritin; Future Iron and TIBC; Future CBC auto differential Ferritin Iron and TIBC Acquired hypothyroidism Controlled, continue levothyroxine 100 mcg daily Orders: TSH; Future TSH Type 2 diabetes mellitus without complication, without long-term current use of insulin (CMS/HCC) (HCC) Controlled, continue metformin 1000 mg twice a day Orders: Comprehensive metabolic panel; Future Hemoglobin A1c; Future Comprehensive metabolic panel Hemoglobin A1c Pure hypercholesterolemia Controlled, continue atorvastatin 10 mg daily Orders: Lipid panel; Future Lipid panel Immunization due Orders: zoster vaccine-recombinant adjuvanted (Shingrix) 50 MCG/0.5ML vaccine; Inject 0.5 mL (50 mcg) into the shoulder, thigh, or buttocks Once for 1 dose. I have reviewed and reconciled the medication list with the patient today. Current Outpatient Medications Medication Sig Dispense Refill chlorthalidone (Hygroton) 25 MG tablet TAKE 1 TABLET BY MOUTH DAILY 90 tablet 1 irbesartan (Avapro) 300 MG tablet TAKE 1 TABLET BY MOUTH DAILY 90 tablet 1 acetaminophen (Tylenol) 500 MG tablet Take 500 mg by mouth in the morning and 500 mg in the evening. atorvastatin (Lipitor) 10 MG tablet Take 1 tablet (10 mg) by mouth daily. 90 tablet 1 DIGESTIVE ENZYMES PO Take 175 mg by mouth in the morning and 175 mg at noon and 175 mg in the evening. furosemide (Lasix) 20 MG tablet TAKE 1 TABLET BY MOUTH DAILY 100 tablet 2 levothyroxine (Synthroid, Levoxyl) 100 MCG tablet Take 1 tablet (100 mcg) by mouth every morning (before breakfast). 90 tablet 1 metFORMIN (Glucophage) 1000 MG tablet Take 1 tablet (1,000 mg) by mouth in the morning and 1 tablet(1,000 mg) in the evening. Take with meals. 180 tablet 1 NON FORMULARY Gurmur 134 mg 2 tablets daily po NON FORMULARY Cardio 450 mg daily po for heart health NON FORMULARY 4Life Classic 600 mg 3 tablets daily po nystatin (Mycostatin) cream Apply topically 2 times daily. 30 g 3 omega-3 (Fish Oil) 1200 MG capsule Take 1,200 mg by mouth daily. omeprazole (PriLOSEC) [address] capsule Take 1 capsule (40 mg) by mouth every morning (before breakfast). 90 capsule 1 Tdap (BoostRIX) 5-2.5-18.5 LF-MCG/0.5 injection Inject 0.5 mL into the shoulder, thigh, or buttocksOnce for 1 dose. 0.5 mL 0 Vitamin E 450 MG (1000 UT) capsule Take 450 mg by mouth daily. zoster vaccine-recombinant adjuvanted (Shingrix) 50 MCG/0.5ML vaccine Inject 0.5 mL (50 mcg) into the shoulder, thigh, or buttocks Once for 1 dose. 0.5 mL 1 No current facility-administered medications for this visit. Medications Discontinued During This Encounter Medication Reason indomethacin (Indocin) 50 MG capsule Therapy completed cyanocobalamin (HM Vitamin B-12) 500 MCG tablet Therapy completed meclizine (Antivert) 25 MG tablet Therapy completed ferrous sulfate 325 (65 Fe) MG tablet Therapy completed zoster vaccine-recombinant adjuvanted (Shingrix) 50 MCG/0.5ML vaccine Reorder The following health maintenance schedule was reviewed with the patient and provided in printed form in the after visit summary: Health Maintenance Topic Date Due Bone Density Scan Never done DTaP/Tdap/Td Vaccines (1 - Tdap) Never done Zoster Vaccines (2 of 2) 02/19/2022 Diabetes: Retinopathy Screening 02/15/2024 Diabetes: Dental Exam 05/04/2025 (Originally 04/23/2023) Colorectal Cancer Screening 01/19/2027 (Originally 1955) Lipid Panel 05/07/2024 Diabetes: Hemoglobin A1C 08/26/2024 Diabetes: Estimated Glomerular Filtration Rate for Kidney Health 10/21/2024 Diabetes: Urine Albumin-Creatinine Ratio for Kidney Health 01/20/2025 Lung Cancer Screening 02/08/2025 TSH Level 02/11/2025 Mammogram 02/22/2025 Diabetes: Foot Exam 03/09/2025 Depression Screening 05/03/2025 RSV Immunization for Adults (1 - 1-dose 75+ series) 2029 Medicare Advantage Annual Wellness Visit Completed Hepatitis B Vaccines Completed Influenza Vaccine Completed Pneumococcal Vaccine: 65+ Years Completed Hepatitis C Screening Completed COVID-19 Vaccine Completed RSV Immunization under 20 Months Aged Out HIB Vaccines Aged Out IPV Vaccines Aged Out Hepatitis A Vaccines Aged Out Meningococcal Vaccine Aged Out Rotavirus Vaccines Aged Out HPV Vaccines Aged Out Orders Placed This Encounter Procedures Lipid panel Standing Status: Future Number of Occurrences: 1 Standing Expiration Date: 05/04/2025 Comprehensive metabolic panel Standing Status: Future Number of Occurrences: 1 Standing Expiration Date: 05/04/2025 Hemoglobin A1c Standing Status: Future Number of Occurrences: 1 Standing Expiration Date: 05/04/2025 CBC auto differential Standing Status: Future Number of Occurrences: 1 Standing Expiration Date: 05/04/2025 Ferritin Standing Status: Future Number of Occurrences: 1 Standing Expiration Date: 05/04/2025 Iron and TIBC Standing Status: Future Number of Occurrences: 1 Standing Expiration Date: 05/04/2025 TSH Standing Status: Future Number of Occurrences: 1 Standing Expiration Date: 05/04/2025 Follow up in about 6 months (around 11/02/2024). Fabrice Monsivais comes in today for her annual Medicare well visit, she says she has no complaints today. She has a history of hypertension and her blood pressure is borderline high today we will recheck that prior to discharge, she has reflux which seems to be well-controlled on her omeprazole, hypothyroidism and she also has hemochromatosis so we will need to do blood work for that. She has a history of type 2 diabetes. List of current healthcare providers: Patient Care Team: Moshe Key MD as PCP - General (Family Medicine) Health Risk Assessment: General: General In general, how would you say your health is?: (Patient-Rptd) (P) Very good In the past 7 days, have you experienced any of the following: New or Increased Pain, New or Increased Fatigue, Loneliness, Social Isolation, Stress or Anger?: (Patient-Rptd) (P) No Do you get the social and emotional suppport you need?: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 Due Topic Hepatitis A Vaccines-declined RSV Immunization aged 60 or older-declined Diabetes: Dental Exam-needs completed COVID-19 Vaccine-declined Diabetes: Retinopathy Screening-02/20/2024 [facility] Diabetes: Foot Exam-pended documented in this [facility]10-15-2024 History of Present illness Narrative* ASAF Ramos CNP - 03/09/2024 11:00 AM EDT Images from the original note were not included. [address] [address] Dept: [phone] Dept Loc: [phone] Subjective Chief Complaint: Ms. Landin is a 68 y.o. female who presentsfor pre-operative evaluation. Planned surgery: MIS-TLIF at L5-S1 Surgeon: Dr. Rose- [facility] Date of Surgery: 03/29/2024 Plans to be overnight. Then home the next day. Will have PT at the rehab center in [place]. Has another appt next week- on the 03/19/2024 Review of Systems Constitutional: Negative. HENT: Negative. Respiratory: Negative. Cardiovascular: Negative. Gastrointestinal: Negative. Genitourinary: Negative for difficulty urinating. Musculoskeletal: Positive for back pain. Skin: Negative for rash. Neurological: Negative for dizziness, light-headedness and headaches. Functional Capacity (>4 METS implies low cardiovascular risk from surgery): Climb a flight of stairs or walk up a hill (5.50 METs) Blue's Simple Cardiac RiskIndex: High-risk surgery (intraperitoneal, intrathoracic or suprainguinalvascular surgery): no Coronary artery disease: no Congestive heart failure: no History of cerebrovascular disease: no Insulin treatment for diabetes mellitus: no Preoperative serumcreatinine > 2.0mg/dL: no Total: 0 Interpretation: 0Points Class I 1 Point Class II 2 Points Class III >=3 Points Class IV Class: I Lab Results Component Value Date WBC 5.0 01/14/2024 HGB 9.7 (L) 01/14/2024 HCT 31.0 (L) 01/14/2024 MCV 87.3 01/14/2024 PLT 164 01/14/2024 Lab Results Component Value Date CREATININE 1.05 10/22/2023 BUN 21 10/22/2023 CO2 22 10/22/2023 Objective BP (!) 146/76 Pulse 76 Comment: apical Temp 36.7 C (98 F) (Infrared) Resp 18 Ht 5' 3.5 (1.613 m) Wt 202 lb 9.6 oz (91.9 kg) SpO2 97% BMI 35.33 kg/m Physical Exam Constitutional: General: She is not in acute distress. Appearance: Normal appearance. She is obese. She is not ill-appearing. HENT: Head: Normocephalic and atraumatic. Ears: Comments: Hearing aids Nose: Nose normal. Mouth/Throat: Mouth: Mucous membranes are moist. Pharynx: Oropharynx is clear. No oropharyngeal exudate or posterior oropharyngeal erythema. Cardiovascular: Rate and Rhythm: Normal rate and regular rhythm. Pulses: Normal pulses. Heart sounds: Normal heart sounds. Pulmonary: Effort: Pulmonary effort is normal. Breath sounds: Normal breath sounds. Musculoskeletal: Cervical back: Normal range of motion and neck supple. Right lower leg: No edema. Left lower leg: No edema. Skin: General: Skin is warm and dry. Neurological: Mental Status: She is alert and oriented to person, place, and time. Assessment/Plan 1. Preoperative clearance Assessment & Plan: Medical optimized for surgery. 2. Type 2 diabetes mellitus without complication, without long-term current use of insulin ([facility]) ([facility]) Assessment & Plan: Controlled. Glucose readings consistently under 150. Continue metformin 1000 mg twice daily Orders: - Diabetes Foot Exam 3. Primary hypertension Assessment & Plan: Mild elevation in blood pressure today. 146/76. Continue current medications Avapro 300 mg daily, chlorthalidone 25 mg daily, follow-up as directed. [x] No CV contraindications to surgery, as per ACC / AHA guidelines [] Postponesurgery for noninvasive testing Follow-up:Follow up for with primary care provider as scheduled. ASAF Otoole CNP * Dian Stuart - 03/09/2024 11:00 AM EDT Patient was identified by name and Date of . Health Maintenance Due Topic Hepatitis A Vaccines-declined RSV Immunization aged 60 or older-declined Diabetes: Dental Exam-needs completed COVID-19 Vaccine-declined Diabetes: [facility]: Foot Exam-pended documented in this [facility]10-15-2024 Instructions* Patient Instructions* ASAF Ramos CNP - 03/09/2024 11:00 AM EDT Vit d 2,000 international units daily over the counter. documented in this [facility]10-15-2024 Instructions* Patient Instructions* ASAF Ramos CNP - 03/09/2024 11:00 AM EDT Vit d 2,000 international units daily over the counter. documented in this [facility]10-15-2024 Note* Addendum Note - ASAF Ramos CNP - 03/09/2024 11:00 AM EDTAddended by: SEDRICK HEMPHILL on: 03/11/2024 06:38 PM Modules accepted: Level of Service [id number] NoteAddended by: SEDRICK HEMPHILL on: 03/11/2024 06:38 PM Modules accepted: [facility] Telephone encounter Note* Telephone Encounter - Emily Kingsley MA - 02/13/2024 11:10 AM EDT Notified, needs 90 day supply to mail order pharmacy. [id number] Telephone encounter Note* Telephone Encounter - Emily Kingsley MA - 02/13/2024 11:10 AM EDT ----- Message from ASAF Ramos CNP sent at 02/13/2024 11:09 AM EDT ----- Tsh - normal, continue current dosing of levothyroxine 100 mcg daily [id number] Miscellaneous Notes* Telephone Encounter - Emily Kingsley MA - 02/13/2024 11:10 AM EDT Notified, needs 90 day supply to mail order pharmacy. * Telephone Encounter - Emily Kingsley MA - 02/13/2024 11:10 AM EDT ----- Message from ASAF Ramos CNP sent at 02/13/2024 11:09 AM EDT ----- Tsh - normal, continue current dosing of levothyroxine 100 mcg daily documented in this [facility]08-28-2024 Evaluation + Plan note* Assessment & Plan Note - ASAF Ramos CNP - 01/21/2024 11:48 AM EDTAssociated Problem(s): Bilateral foot pain Improving. Patient to continue follow-up with podiatry as previously directed. Continue orthotics [id number] Miscellaneous Notes* Assessment & Plan Note - ASAF Ramos CNP - 01/21/2024 11:48 AM EDTAssociated Problem(s): Bilateral foot pain Improving. Patient to continue follow-up with podiatry as previously directed. Continue orthotics * Assessment & Plan Note - ASAF Ramos CNP - 01/21/2024 11:47 AM EDTAssociated Problem(s): Murmur, cardiac Noted new murmur on physical examination. Will obtain echocardiogram to further evaluate. Most recent EKG in August 2023 (preop)- sinus rhythm. Denies any shortness of breath or chest pain. * Assessment & Plan Note - ASAF Ramos CNP - 01/21/2024 11:46 AM EDTAssociated Problem(s): Iron deficiency anemia Iron levels have improved, hemoglobin still lower than her baseline. Recommend continue iron supplementation. Consider referral to gastroenterology for further evaluation. Recent Cologuard negative, previous colonoscopy in 2017 normal * Assessment & Plan Note - ASAF Ramos CNP - 01/21/2024 11:45 AM EDTAssociated Problem(s): Hypothyroidism Uncontrolled. Recent change in levothyroxine dose increased to 100 mcg daily. Recommend starting new dosing and rechecking TSH in 8 weeks * Assessment & Plan Note - ASAF Ramos CNP - 01/21/2024 11:44 AM EDTAssociated Problem(s): Hypertension Mild elevation in blood pressure today. 146/80. Continue current medications Avapro 300 mg daily, chlorthalidone 25 mg daily, follow-up as directed. * Assessment & Plan Note - ASAF Ramos CNP - 01/21/2024 11:44 AM EDTAssociated Problem(s): Type 2 diabetes mellitus without complication, without long-term current useof insulin ([facility]) ([facility]) Controlled, continue metformin 1000 mg twice daily * Assessment & Plan Note - ASAF Ramos CNP - 01/21/2024 11:43 AM EDTAssociated Problem(s): Degenerative disc disease, lumbar Follow-up with insurance law specialist as directed. documented in this [facility]08-28-2024 Evaluation + Plan note* Assessment & Plan Note - ASAF Ramos CNP - 01/21/2024 11:47 AM EDTAssociated Problem(s): Murmur, cardiac Noted new murmur on physical examination. Will obtain echocardiogram to further evaluate. Most recent EKG in August 2023 (preop)- sinus rhythm. Denies any shortness of breath or chest pain. [id number] Evaluation + Plan note* Assessment & Plan Note - ASAF Ramos CNP - 01/21/2024 11:46 AM EDTAssociated Problem(s): Iron deficiency anemia Iron levels have improved, hemoglobin still lower than her baseline. Recommend continue iron supplementation. Consider referral to gastroenterology for further evaluation. Recent Cologuard negative, previous colonoscopy in 2017 normal [id number] NoteIron levels have improved, hemoglobin still lower than her baseline. Recommend continue iron supplementation. Consider referral to gastroenterology for further evaluation. Recent Cologuard negative, previous colonoscopy in 2017 [facility]08-28-2024 Evaluation + Plan note* Assessment & Plan Note - ASAF Ramos CNP - 01/21/2024 11:45 AM EDTAssociated Problem(s): Hypothyroidism Uncontrolled. Recent change in levothyroxine dose increased to 100 mcg daily. Recommend starting new dosing and rechecking TSH in 8 weeks [place] [id number] Evaluation + Plan note* Assessment & Plan Note - ASAF Ramos CNP - 01/21/2024 11:44 AM EDTAssociated Problem(s): Hypertension Mild elevation in blood pressure today. 146/80. Continue current medications Avapro 300 mg daily, chlorthalidone 25 mg daily, follow-up as directed. [place] [id number] Evaluation + Plan note* Assessment & Plan Note - ASAF Ramos CNP - 01/21/2024 11:44 AM EDTAssociated Problem(s): Type 2 diabetes mellitus without complication, without long-term current useof insulin ([facility]) ([facility]) Controlled, continue metformin 1000 mg twice daily [place] [id number] Evaluation + Plan note* Assessment & Plan Note - ASAF Ramos CNP - 01/21/2024 11:43 AM EDTAssociated Problem(s): Degenerative disc disease, lumbar Follow-up with insurance law specialist as directed. [place] [id number] History of Present illness Narrative* Dian Stuart - 01/21/2024 10:20 AM EDT Health Maintenance Addressed with Patient at Visit: Micro-pended Hep A- declined Lung CT-pended RSV-declined DM dental- 2 years ago AWV- beto'd 05/04/24 Printed and faxed orders to [facility]: Mammogram Echo CT Lung * ASAF Ramos CNP - 01/21/2024 10:20 AM EDT Images from the original note were not included. 01/21/2024 Yodit Landin (: 1955) is a 68 y.o. female , Established patient, here for evaluation of thefollowing chief complaint(s): Diabetes And follow-up chronic conditions presents today for med check and follow-up on chronic conditions. ASSESSMENT/PLAN: 1. Type 2 diabetes mellitus without complication, without long-term current use of insulin (CMS/HCC) (HCC) Assessment & Plan: Controlled, continue metformin 1000 mg twice daily Orders: - Microalbumin / creatinine, urine ratio 2. Hypothyroidism, unspecified type Assessment & Plan: Uncontrolled. Recent change in levothyroxine dose increased to 100 mcg daily. Recommend starting new dosing and rechecking TSH in 8 weeks 3. Degenerative disc disease, lumbar Assessment & Plan: Follow-up with insurance law specialist as directed. 4. Iron deficiency anemia, unspecified iron deficiency anemia type Assessment & Plan: Iron levels have improved, hemoglobin still lower than her baseline. Recommend continue iron supplementation. Consider referral to gastroenterology for further evaluation. Recent Cologuard negative, previous colonoscopy in 2017 normal 5. Primary hypertension Assessment & Plan: Mild elevation in blood pressure today. 146/80. Continue current medications Avapro 300 mg daily, chlorthalidone 25 mg daily, follow-up as directed. 6. History of tobacco use - CT lung screening low dose 7. Encounter for screening mammogram for malignant neoplasm of breast - Bilateral screening mammogram with tomosynthesis 8. Murmur, cardiac Assessment & Plan: Noted new murmur on physical examination. Will obtain echocardiogram to further evaluate. Most recent EKG in August 2023 (preop)- sinus rhythm. Denies any shortness of breath or chest pain. Orders: - Transthoracic echocardiogram (TTE) complete with contrast, bubble, strain, and 3D PRN - perflutren protein A microsphere (Optison) 3 mL in sodium chloride (PF) 0.9 % 10 mL IV syringe; 0-10 mL, IntraVENous, IMG once PRN, other, suboptimal echo image, Starting on 01/21/24 at 1105, For 1 dose, CV Procedural MedicationsAdminister via slow IVP for suboptimal echocardiogram enhancement. May administer as divided doses to reach optimal image enhancement 9. Bilateral foot pain Assessment & Plan: Improving. Patient to continue follow-up with podiatry as previously directed. Continue orthotics Follow up for 3 month [facility]. SUBJECTIVE/OBJECTIVE: JAIME - Yodit Landin (: 1955) is a 68 y.o. female , Established patient, here for the evaluation ofthe following chief complaint(s): Diabetes Hearing deficit-just got new Hearing aids- has following up next week with health information systems technician Back pain-was referred to orthospine and reports seeing Dr. Marroquin (ortho-spine), for lumbar pain, is getting a MRI, and starting physical at [facility] in [place], still seeing chiropractor. States that she might end up getting back surgery. Denies any significant change in her symptoms, denies any bowel or bladder changes Foot pain-sees Dr. Brenner in [facility]- has inserts now and that is helping with her foot pain. Diabetes-checks blood sugar daily and brings her readings with her today, blood glucose running consistently under 150s. , Is on metformin 1000 mg twice daily. Hypothyroidism-recent TSH was elevated, we increased levothyroxine to 100 mcg from 75 mcg. Patient states she has not gotten the new dose yet. We will plan on checking the TSH in 8 weeks from starting the new dose. Anemia-patient recently had a slight drop in hemoglobin, we have been watching this closely. We started iron and she has had some improvement in her hemoglobin hematocrit. We will continue to watch this closely. Denies any shortness of breath or chest pain. Last Cologuard negative and last colonoscopy normal in 2017. Prior to Admission medications Medication Sig Start Date End Date Taking? Authorizing Provider acetaminophen (Tylenol) 500 MG tablet Take 500 mg by mouth in the morning and 500 mg in the evening. Yes Historical Provider, atorvastatin (Lipitor) 10 MG tablet Take 1 tablet (10 mg) by mouth daily. 12/03/23 Yes Sedrickray Hemphill APRN - [facility] chlorthalidone (Hygroton) 25 MG tablet Take 1 tablet (25 mg) by mouth daily. 12/03/23 Yes Sedrickdony Hemphill APRN - [facility] cyanocobalamin (HM Vitamin B-12) 500 MCG tablet Take 500 mcg by mouth every other day. Yes Historical Provider, DIGESTIVE ENZYMES PO Take 175 mg by mouth in the morning and 175 mg at noon and 175 mg in the evening. Yes Historical Provider, ergocalciferol (Vitamin D-2) 1.25 MG (51169 UT) capsule Take 1 capsule (1.25 mg) by mouth 1 (one) time per week. 01/16/24 04/09/24 Yes ASAF Ramos CNP ferrous sulfate 325 (65 Fe) MG tablet Take 325 mg by mouth every other day. Yes Historical Provider, furosemide (Lasix) 20 MG tablet TAKE 1 TABLET BY MOUTH DAILY 12/29/23 Yes ASAF Ramos CNP indomethacin (Indocin) 50 MG capsule 03/14/23 Yes Historical Provider, irbesartan (Avapro) 300 MG tablet Take 1 tablet (300 mg) by mouth daily. 12/03/23 Yes ASAF Ramos CNP levothyroxine (Synthroid, Levoxyl) 100 MCG tablet Take 1 tablet (100 mcg) by mouth every morning (before breakfast). 01/16/24 02/15/24 Yes ASAF Ramos CNP meclizine (Antivert) 25 MG tablet 07/01/23 Yes Historical Provider, metFORMIN (Glucophage) 1000 MG tablet 03/14/23 Yes Historical Provider, NON FORMULARY Gurmur 134 mg 2 tablets daily po Yes Historical Provider, NON FORMULARY Cardio 450 mg daily po for heart health Yes Historical Provider, NON FORMULARY 4Life Classic 600 mg 3 tablets daily po Yes Historical Provider, nystatin (Mycostatin) cream Apply topically 2 times daily. 12/10/23 Yes Moshe Key MD omega-3 (Fish Oil) 1200 MG capsule Take 1,200 mg by mouth daily. Yes Historical Provider, omeprazole (PriLOSEC) [address] capsule Take 1 capsule (40 mg) by mouth every morning (before breakfast). 12/03/23 Yes ASAF Ramos CNP Vitamin E 450 MG (1000 UT) capsule Take 450 mg by mouth daily. Yes Historical Provider, levothyroxine (Synthroid, Levoxyl) 75 MCG tablet Take 1 tablet (75 mcg) by mouth every morning (before breakfast). 12/03/23 01/15/24 ASAF Ramos CNP Review of Systems Constitutional: Negative for activity change, chills, fatigue and fever. HENT: Negative. Respiratory: Negative. Cardiovascular: Negative. Gastrointestinal: Negative. Genitourinary: Negative for difficulty urinating. Musculoskeletal: Positive for back pain (Left lower buttock) and gait problem (Occasionally). Neurological: Negative for dizziness, light-headedness and headaches. Vitals: 01/21/24 1018 01/21/24 1119 BP: (!) 147/74 (!) 146/80 Pulse: 101 Resp: 20 Temp: 36.8 C (98.3 F) TempSrc: Infrared SpO2: 97% Weight: 202 lb 12.8 oz (92 kg) Physical Exam Constitutional: General: She is not in acute distress. Appearance: Normal appearance. She is not ill-appearing. HENT: Head: Normocephalic and atraumatic. Ears: Comments: Hearing aids bilaterally Nose: Nose normal. Mouth/Throat: Mouth: Mucous membranes are moist. Pharynx: Oropharynx is clear. No oropharyngeal exudate or posterior oropharyngeal erythema. Comments: Dentures Eyes: Conjunctiva/sclera: Conjunctivae normal. Cardiovascular: Rate and Rhythm: Normal rate and regular rhythm. Pulses: Normal pulses. Heart sounds: Murmur heard. Pulmonary: Effort: Pulmonary effort is normal. Breath sounds: Normal breath sounds. Musculoskeletal: Cervical back: Normal range of motion [...] was used to authenticate this note. ASAF Otoole CNP 01/21/2024 11:49 AM documented in this [facility]08-28-2024 Instructions* Patient Instructions* ASAF Ramos CNP - 01/21/2024 10:20 AM EDT Bring in research records. -Please call Central Scheduling at [phone] to schedule your outpatient test (CT of lung for lung cancer screening) documented in this [facility]SSelect [facility] [id number] Telephone encounter Note* Telephone Encounter - Emily Kingsley MA - 01/16/2024 9:19 AM EDT Patient is agreeable, scheduled in 8 weeks, orders and med pended, pharmacy verified. Please update sig for B12 as well. [id number] Miscellaneous Notes* Telephone Encounter - Emily Kingsley MA - 01/16/2024 9:19 AM EDT Patient is agreeable, scheduled in 8 weeks, orders and med pended, pharmacy verified. Please update sig for B12 as well. * Telephone Encounter - Emily Kingsley MA - 01/15/2024 4:23 PM EDT ----- Message from ASAF Ramos CNP sent at 01/15/2024 4:16 PM EDT ----- Iron and TIBC still low normal range however gradually improving CBC-slight improvement in hemoglobin Ferritin-unchanged TSH-elevated, meaning we need to adjust the levothyroxine, recommend increasing to 100 mcg daily and rechecking in 8 weeks [id number] slightly elevated, may reduce B12 supplement to every other day Folate-normal Transferrin-normal Back to Top Vit d low- 25, recommend vitamin D 50,000 international units once weekly x 12 weeks, then 2000 international units daily [id number] (please see other results) Left a message to return call. Directions for CAC in the event patient calls back: If the patient is agreeable to the recommendation, please: 1. Verify what pharmacy RX will be sent to. 2. Schedule patient for nurse visit to repeat labs in 8 weeks. 3. Route this TE back to the office clinical pool so we can place lab orders and send in rx. If the patient is not agreeable then no nurse visit is needed. Thanks! documented in this encounterSSelect Medical Specialty Hospital - [id number] Telephone encounter Note* Telephone Encounter - Emily Kingsley MA - 01/15/2024 4:23 PM EDT ----- Message from ASAF Ramos CNP sent at 01/15/2024 4:16 PM EDT ----- Iron and TIBC still low normal range however gradually improving CBC-slight improvement in hemoglobin Ferritin-unchanged TSH-elevated, meaning we need to adjust the levothyroxine, recommend increasing to 100 mcg daily and rechecking in 8 weeks [id number] slightly elevated, may reduce B12 supplement to every other day Folate-normal Transferrin-normal Back to Top Vit d low- 25, recommend vitamin D 50,000 international units once weekly x 12 weeks, then 2000 international units daily [id number] (please see other results) Left a message to return call. Directions for CAC in the event patient calls back: If the patient is agreeable to the recommendation, please: 1. Verify what pharmacy RX will be sent to. 2. Schedule patient for nurse visit to repeat labs in 8 weeks. 3. Route this TE back to the office clinical pool so we can place lab orders and send in rx. If the patient is not agreeable then no nurse visit is needed. Thanks! [facility] [id number] Note* Addendum Note - ASAF Ramos CNP - 12/29/2023 8:22 AM EDTAddended by: SEDRICK HEMPHILL on: 12/29/2023 08:22 AM Modules accepted: Orders [facility] [id number] Note* Addendum Note - ASAF Ramos CNP - 12/29/2023 8:22 AM EDTAddended by: SEDRICK HEMPHILL on: 12/29/2023 08:22 AM Modules accepted: Orders [facility] [id number] NoteAddended by: SEDRICK HEMPHILL on: 12/29/2023 08:22 AM Modules accepted: [facility]08-05-2024 Miscellaneous Notes* Addendum Note - ASAF Ramos CNP - 12/29/2023 8:22 AM EDT Addended by: SEDRICK HEMPHILL on: 12/29/2023 08:22 AM Modules accepted: Orders * Addendum Note - ASAF Ramos CNP - 12/24/2023 6:13 PM EDT Addended by: SEDRICK HEMPHILL on: 12/24/2023 06:13 PM Modules accepted: Orders * Telephone Encounter - ASAF Ramos CNP - 12/24/2023 6:13 PM EDT Called patient and reviewed results of x-ray. She would like a referral to orthospine in the [place] area. Will have clinical care coordinator assist with finding provider in network for her. We will also check vitamin D level at next lab draw on January 14, 2024. Also get DEXA scan completed to further evaluate osteopenia * Telephone Encounter - [place] Antony - 12/24/2023 10:38 AM EDT Name of caller: Yodit Landin Contact phone number: [phone] Relationship to Patient: patient Provider: Dr. Key Practice: [facility] Chief Complaint/Reason for Call: Patient is returning call from office regarding x-ray results. Please call patient back to discuss results. Please advise, thank you. Best time of day caller can be reached: Any Patient advised that office/PCP has 24-48 business hours to return their call: Yes * Telephone Encounter - Allison Dunlap MA - 12/24/2023 10:27 AM EDT LM for pt to return call * Telephone Encounter - Allison Dunlap MA - 12/24/2023 10:27 AM EDT ----- Message from ASAF Ramos CNP sent at 12/24/2023 7:39 AM EDT ----- Lumbar x-ray shows severe degenerative disc disease he had an osteopenic bones (this can lead to osteoporosis and increase risk for fractures). Recommend getting dexa scan (bone density test) and checking vit d level -then we can further recommend treatment for the osteopenia, as for the severe degenerative disc disease- recommend evaluation by orthospine doctor. documented in this encounterSSelect [facility] Specialty Hospital - [id number] Telephone encounter Note* Telephone Encounter - ASAF Ramos CNP - 12/29/2023 7:34 AM EDT Reviewed chart. Refill appropriate. RX sent. [facility]woodsCjapaq07-83-4115 Miscellaneous Notes* Telephone Encounter - ASAF Ramos CNP - 12/29/2023 7:34 AM EDT Reviewed chart. Refill appropriate. RX sent. * Telephone Encounter - Allison Dunlap MA - 12/29/2023 7:17 AM EDT Prescription Request: Last date of refill on this medication Sent 10/22/[facility] 1 refill documented in this [facility]08-05-2024 Telephone encounter Note* Telephone Encounter - Allison Dunlap MA - 12/29/2023 7:17 AM EDT Prescription Request: Last date of refill on this medication [facility]ill [id number] Note* Addendum Note - ASAF Ramos CNP - 12/24/2023 6:13 PM EDTAddended by: SEDRICK HEMPHILL on: 12/24/2023 06:13 PM Modules accepted: Orders [facility]woodsScvqwe82-57-8937 Note* Addendum Note - ASAF Ramos CNP - 12/24/2023 6:13 PM EDTAddended by: SEDRICK HEMPHILL on: 12/24/2023 06:13 PM Modules accepted: Orders [facility]woodsDhabha92-40-5315 Note* Addendum Note - ASAF Ramos CNP - 12/24/2023 6:13 PM EDTAddended by: SEDRICK HEMPHILL on: 12/24/2023 06:13 PM Modules accepted: Orders [place]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 condition or this instruction, always ask your healthcare professional. [employer] disclaims any warranty or liability for your use of this information. documented in this [facility]04-11-2024 Evaluation + Plan note* Assessment & Plan Note - 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 APRN - [facility] - 09/04/2023 2:49 PM EDTAssociated Problem(s): Visit for wound check No concerns. Additional padding added to the edge of the plaster splint, lower half of the dressingrewrapped with the Drake wrap. Patient to follow-up with her surgeon as scheduled [id number] Miscellaneous Notes* Assessment & Plan Note - ASAF Ramos CNP - 09/04/2023 2:49 PM EDTAssociated Problem(s): Visit for wound check No concerns. Additional padding added to the edge of the plaster splint, lower half of the dressingrewrapped with the Drake wrap. Patient to follow-up with her surgeon as scheduled documented in [place] [id number] Telephone encounter Note* Telephone Encounter - ASAF Ramos CNP - 09/04/2023 12:48 PM EDT Noted. Agree with disposition. [id number] Miscellaneous Notes* Telephone Encounter - ASAF Ramos CNP - 09/04/2023 12:48 PM EDT Noted. Agree with disposition. * Telephone Encounter - Iris Morales RN - 09/04/2023 9:36 AM EDT S: Patient spoke with [facility] nurse regarding post op problem-surgical bandage B: Surgery-09/03/23-RIGHT VOLAR RADIAL WRIST MASS EXCISION A: Patient had wrist surgery yesterday states she needs bandage rewrapped and she does not have supplies at home. Patient states there is a sharp area that is exposed on the splint. Patient states she is unable to drive back over to the [place] location. R: OV scheduled for today with Julianna Hemphill with back line office staff approval. No further needsat this time. Reason for Disposition Patient wants to be seen Protocols used: Post-Op Symptoms and [id number] documented in this [facility]04-11-2024 History of Present illness Narrative* Kourtney Hoff MA - 09/04/2023 10:20 AM EDT Patient verified by last name and . * 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 APRN - [facility] - 09/04/2023 10:20 AM EDT Images from the original note were not included. 09/04/2023 Yodit Landin (: 1955) is a 68 y.o. female , Established patient, here for evaluation of thefollowing chief complaint(s): Post-op Problem (Bandaging is coming off of right hand from surgery. Is unable to re-wrap, there isalso a plaster casting under the bandaging that is poking into her hand. ) ASSESSMENT/PLAN: 1. Visit for wound check Assessment & Plan: No concerns. Additional padding added to the edge of the plaster splint, lower half of the dressingrewrapped with the Drake wrap. Patient to follow-up with her surgeon as scheduled Follow up for with specialist. SUBJECTIVE/OBJECTIVE: HPI - Yodit Landin (: 1955) is a 68 y.o. female , Established patient, here for the evaluation ofthe following chief complaint(s): Post-op Problem (Bandaging is coming off of right hand from surgery. Is unable to re-wrap, there isalso a plaster casting under the bandaging that is poking into her hand. ) Patient presents today to check her arm and rewrap the postop dressing. She has a hard splint and Drake wrap on her lower right arm. She had wrist surgery yesterday and removal of cyst. States she is doing well and the pain is tolerable. Denies any fever or chills. States she woke up this morning andthe wrap had come off of her hand and she was unable to wrap it up on her own and needs assistance.There is also part of the splint that is rubbing on her thumb. Prior to Admission medications Medication Sig Start [...] 75 MCG tablet 01/11/23 Yes Historical Provider, meclizine (Antivert) 25 MG tablet 07/01/23 Yes Historical Provider, metFORMIN (Glucophage) 1000 MG tablet 03/14/23 Yes Historical Provider, NON FORMULARY Gurmur 134 mg 2 tablets daily po Yes Historical Provider, NON FORMULARY Cardio 450 mg daily po for heart health Yes Historical Provider, NON FORMULARY 4Life Classic 600 mg 3 tablets daily po Yes Historical Provider, nystatin (Mycostatin) cream 10/22/22 Yes Historical Provider, omega-3 (Fish Oil) 1200 MG capsule Take 1,200 mg by mouth daily. Yes Historical Provider, omeprazole (PriLOSEC) [address] capsule 12/15/22 Yes Historical Provider, traMADol (Ultram) 50 MG tablet Take 1 tablet (50 mg) by mouth every 6 hours as needed for severe pain (7-10) for up to 5 days. 09/03/23 09/08/23 Yes Chay Patel PA-C Vitamin E 450 MG (1000 UT) capsule Take 450 mg by mouth daily. Yes Historical Provider, Review of Systems Constitutional: Negative. Respiratory: Negative. Cardiovascular: Negative. Vitals: 09/04/23 1018 BP: 123/74 Pulse: 82 SpO2: 94% Weight: 207 lb (93.9 kg) Height: 5' 3 (1.6 m) Physical Exam Constitutional: Appearance: Normal appearance. HENT: Head: Normocephalic and atraumatic. Pulmonary: Effort: Pulmonary effort is normal. Musculoskeletal: Comments: Right hand warm to touch cap refill brisk, sensation intact. Able to move fingers withoutdifficulty. Has plaster splint, cotton padding and Drake wrap. Applied additional padding to the edge of the splint at the palm of the hand, rewrapped the lower half of the arm. Neurological: Mental Status: She is alert and oriented to person, place, and time. An electronic signature was used to authenticate this note. ASAF Ramos CNP 09/04/2023 2:49 PM documented in this [facility]04-11-2024 Telephone encounter Note* Telephone Encounter - Iris Morales RN - 09/04/2023 9:36 AM EDT S: Patient spoke with [facility] nurse regarding post op problem-surgical bandage B: Surgery-09/03/23-RIGHT VOLAR RADIAL WRIST MASS EXCISION A: Patient had wrist surgery yesterday states she needs bandage rewrapped and she does not have supplies at home. Patient states there is a sharp area that is exposed on the splint. Patient states she is unable to drive back over to the [facility]. R: OV scheduled for today with Julianna Hemphill with back line office staff approval. No further needsat this time. Reason for Disposition Patient wants to be seen Protocols used: Post-Op Symptoms and [id number] [place] [id number] Note* Perioperative Nursing Note - Latesha Collins RN - 09/03/2023 11:21 AM EDT Pt and family verbalized understanding of recovery instructions, pt verbalized a readiness to be discharged home. Pt discharged home via wheelchair accompanied by RN/volunteer. Pt has had all their belongings returned to them at discharge [id number] Note* Perioperative Nursing Note - Latesha Collins RN - 09/03/2023 11:21 AM EDT Pt and family verbalized understanding of recovery instructions, pt verbalized a readiness to be discharged home. Pt discharged home via wheelchair accompanied by RN/volunteer. Pt has had all their belongings returned to them at discharge [place] [id number] Miscellaneous Notes* Perioperative Nursing Note - Latesha Collins RN - 09/03/2023 11:21 AM EDT Pt and family verbalized understanding of recovery instructions, pt verbalized a readiness to be discharged home. Pt discharged home via wheelchair accompanied by RN/volunteer. Pt has had all their belongings returned to them at discharge * Perioperative Nursing Note - Latesha Clolins RN - 09/03/2023 10:26 AM EDT Pt arousable, oral airway removed- pt tolerating well. Will monitor * Perioperative Nursing Note - Latesha Collins RN - 09/03/2023 10:14 AM EDT Pt received from OR via cart, spont. Resp. With POULTRY HANGER in attendance. Placed on monitor. Monitor alarms on in PACU Pt received from OR via cart, spont. Resp. With POULTRY HANGER in attendance. Placed on monitor.Monitor alarms on in PACU - pt has oral airway in place - will monitor * Op Note - Austin Leos MD - 09/03/2023 9:13 AM EDT [facility] MAIN OR [address] 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 Yodit Landin is a 68 y.o. year-old female with a painful volar wrist mass who elected to proceed with surgical excision. I have discussed with her, preoperatively, the complications,limitations, expectations, alternatives, and risks of surgical intervention which she has demonstrated understanding. She understood the particular risks of damage to normal neurovascular structures as well as the risk of mass recurrence in the future. No guarantees were given or implied. After having all of her questions answered to her satisfaction, Ms. Yodit Landin has provided written informed consent to proceed. Please see previous notes for full operative discussion. Procedure: Yodit Landin was identified in the preoperative waiting area. her operative site was initialed and consent was reviewed. Final questions were answered. Ms. Yodit Landin was brought to the operating room and placed in the supine position. All bony prominences were well padded. The aforementioned anesthesia was administered. Antibiotics were confirmed to have been given. The operative extremity was prepped and draped in the usual sterile fashion. A surgical timeout was then performed with the patient's identification, the procedure to be performed being reviewed, verification that the patient had received preoperative antibiotics if indicated, and verification of the correct surgical side. The patient's ASA was verified by the nurse steel unloader and the anesthesia staff. Fire risk was assessed. Prior to Esmarch exsanguination the radial artery was palpated and marked on the skin.An esmarch bandage was then used to exsanguinate the limb and the tourniquet was inflated to 250mm Hg. A longitudinal incision was then made directly over top of the volar wrist mass. Sharp dissection was carried down through the skin only and then scissor dissection was used to elevate full-thicknessskin flaps. The mass was readily identified and careful scissor dissection was used to circumferentially dissect the ganglion free of the soft tissues under 3.8 loupe magnification. The radial arterywas readily identified and protected throughout the dissection. The stalk of the mass appeared to be emanating from the radiocarpal joint. The stalk was resected at its base using electrocautery. Themass was sent to pathology for final specimen. The tourniquet was let down in the radial artery wasfound to be uninjured. Electrocautery and compression was used to coagulate all skin bleeders. The wound was then copiously irrigated with normal saline and closed with interrupted 4-0 nylon sutures.The wrist was then placed in a well padded volar resting splint Ms. Yodit Landin was awakened from anesthesia having tolerated the procedure without apparent complication and was taken to the recovery room in stable condition. POST OPERATIVE PLAN OK to remove WBAT and rom at O Outpatient Follow-up XRays: No Austin Leos MD 09/03/2023 , 9:59 AM documented in this [facility]SSelect [facility] [id number] Note* Perioperative Nursing Note - Latesha Collins RN - 09/03/2023 10:26 AM EDT Pt arousable, oral airway removed- pt tolerating well. Will monitor [id number] Note* Perioperative Nursing Note - Latesha Collins RN - 09/03/2023 10:26 AM EDT Pt arousable, oral airway removed- pt tolerating well. Will monitor [place] [id number] Note* Perioperative Nursing Note - Latesha Collins RN - 09/03/2023 10:14 AM EDT Pt received from OR via cart, spont. Resp. With POULTRY HANGER in attendance. Placed on monitor. Monitor alarms on in PACU Pt received from OR via cart, spont. Resp. With POULTRY HANGER in attendance. Placed on monitor.Monitor alarms on in PACU - pt has oral airway in place - will monitor [place] [id number] Note* Perioperative Nursing Note - Latesha Collins RN - 09/03/2023 10:14 AM EDT Pt received from OR via cart, spont. Resp. With POULTRY HANGER in attendance. Placed on monitor. Monitor alarms on in PACU Pt received from OR via cart, spont. Resp. With POULTRY HANGER in attendance. 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 Yodit Landin is a 68 y.o. year-old female with a painful volar wrist mass who elected to proceed with surgical excision. I have discussed with her, preoperatively, the complications,limitations, expectations, alternatives, and risks of surgical intervention which she has demonstrated understanding. She understood the particular risks of damage to normal neurovascular structures as well as the risk of mass recurrence in the future. No guarantees were given or implied. After having all of her questions answered to her satisfaction, Ms. Yodit Landin has provided written informed consent to proceed. Please see previous notes for full operative discussion. Procedure: Yodit Landin was identified in the preoperative waiting area. her operative site was initialed and consent was reviewed. Final questions were answered. Ms. Yodit Landin was brought to the operating room and placed in the supine position. All bony prominences were well padded. The aforementioned anesthesia was administered. Antibiotics were confirmed to have been given. The operative extremity was prepped and draped in the usual sterile fashion. A surgical timeout was then performed with the patient's identification, the procedure to be performed being reviewed, verification that the patient had received preoperative antibiotics if indicated, and verification of the correct surgical side. The patient's ASA was verified by the nurse steel unloader and the anesthesia staff. Fire risk was assessed. Prior to Esmarch exsanguination the radial artery was palpated and marked on the skin.An esmarch bandage was then used to exsanguinate the limb and the tourniquet was inflated to 250mm Hg. A longitudinal incision was then made directly over top of the volar wrist mass. Sharp dissection was carried down through the skin only and then scissor dissection was used to elevate full-thicknessskin flaps. The mass was readily identified and careful scissor dissection was used to circumferentially dissect the ganglion free of the soft tissues under 3.8 loupe magnification. The radial arterywas readily identified and protected throughout the dissection. The stalk of the mass appeared to be emanating from the radiocarpal joint. The stalk was resected at its base using electrocautery. Themass was sent to pathology for final specimen. The tourniquet was let down in the radial artery wasfound to be uninjured. Electrocautery and compression was used to coagulate all skin bleeders. The wound was then copiously irrigated with normal saline and closed with interrupted 4-0 nylon sutures.The wrist was then placed in a well padded volar resting splint Ms. Yodit Landin was awakened from anesthesia having tolerated the procedure without apparent complication and was taken to the recovery room in stable condition. POST OPERATIVE PLAN OK to remove WBAT and rom at O Outpatient Follow-up XRays: No Austin Leos MD 09/03/2023 , 9:59 AM [facility] [employer] Phone: [phone] 759-222204-10-2024 Note* Op Note - Austin Leos MD - 09/03/2023 9:13 AM EDT [facility] MAIN OR [address] 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 Yodit Landin is a 68 y.o. year-old female with a painful volar wrist mass who elected to proceed with surgical excision. I have discussed with her, preoperatively, the complications,limitations, expectations, alternatives, and risks of surgical intervention which she has demonstrated understanding. She understood the particular risks of damage to normal neurovascular structures as well as the risk of mass recurrence in the future. No guarantees were given or implied. After having all of her questions answered to her satisfaction, Ms. Yodit Landin has provided written informed consent to proceed. Please see previous notes for full operative discussion. Procedure: Yodit Landin was identified in the preoperative waiting area. her operative site was initialed and consent was reviewed. Final questions were answered. Ms. Yodit Landin was brought to the operating room and placed in the supine position. All bony prominences were well padded. The aforementioned anesthesia was administered. Antibiotics were confirmed to have been given. The operative extremity was prepped and draped in the usual sterile fashion. A surgical timeout was then performed with the patient's identification, the procedure to be performed being reviewed, verification that the patient had received preoperative antibiotics if indicated, and verification of the correct surgical side. The patient's ASA was verified by the nurse steel unloader and the anesthesia staff. Fire risk was assessed. Prior to Esmarch exsanguination the radial artery was palpated and marked on the skin.An esmarch bandage was then used to exsanguinate the limb and the tourniquet was inflated to 250mm Hg. A longitudinal incision was then made directly over top of the volar wrist mass. Sharp dissection was carried down through the skin only and then scissor dissection was used to elevate full-thicknessskin flaps. The mass was readily identified and careful scissor dissection was used to circumferentially dissect the ganglion free of the soft tissues under 3.8 loupe magnification. The radial arterywas readily identified and protected throughout the dissection. The stalk of the mass appeared to be emanating from the radiocarpal joint. The stalk was resected at its base using electrocautery. Themass was sent to pathology for final specimen. The tourniquet was let down in the radial artery wasfound to be uninjured. Electrocautery and compression was used to coagulate all skin bleeders. The wound was then copiously irrigated with normal saline and closed with interrupted 4-0 nylon sutures.The wrist was then placed in a well padded volar resting splint Ms. Yodit Landin was awakened from anesthesia having tolerated the procedure without apparent complication and was taken to the recovery room in stable condition. POST OPERATIVE PLAN OK to remove WBAT and rom at IPO Outpatient Follow-up XRays: No Austin Leos MD 09/03/2023 , 9:59 AM [employer] Not Give Back Work Phone: [phone] History and physical note* Chay Patel PA-C - 09/03/2023 7:15 AM EDT Updated History & Physical The patient's History and Physical of August 27, 2023 was reviewed with the patient and I examined the patient. There was no change. The surgical site was confirmed by the patient and me. Plan: The risks, benefits, expected outcome, and alternative to the recommended procedure have beendiscussed with the patient. Patient understands and wants to proceed with the procedure. The patient was consented for RIGHT VOLAR RADIAL WRIST MASS EXCISION . I had an extensive discussion with Ms. 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 We discussed both operative and non operative treatment options and Yodit Landin elected to proceed with surgical intervention. I have discussed with Ms. Yodit Landin the potential complications, limitations, expectations, alternatives, and risks of the proposed surgical procedure. Risks discussed include but are not limited to the risk of infection, iatrogenic injury to normal neurovascular structures, persistent pain and disability, unsightly scar, stiffness, complex regional pain syndrome, malunion, non union, hardware failure, need for hardware removal, loss of limb, myocardial infarction, deep vein thrombosis, pulmonary embolism and even . We also discussed the potential risk of COVID-19 exposure or infection and how it could alter her post operative recovery course. She has had full opportunity to ask her questions. I have answered them all to her satisfaction. I feel that Ms. Yodit Landin does understand our discussion today and she iscomfortable providing informed consent for the procedure. oft04-10-2024 History and physical note* Chay Patel PA-C - 09/03/2023 7:15 AM EDT Updated History & Physical The patient's History and Physical of August 27, 2023 was reviewed with the patient and I examined the patient. There was no change. The surgical site was confirmed by the patient and me. Plan: The risks, benefits, expected outcome, and alternative to the recommended procedure have beendiscussed with the patient. Patient understands and wants to proceed with the procedure. The patient was consented for RIGHT VOLAR RADIAL WRIST MASS EXCISION . I had an extensive discussion with Ms. Yodit Landin regarding the natural history, etiology, and alf consequences of her condition. We discussed both operative and non operative treatment options and Yodit Landin elected to proceed with surgical intervention. I have discussed with Ms. Yodit Landin the potential complications, limitations, expectations, alternatives, and risks of the proposed surgical procedure. Risks discussed include but are not limited to the risk of infection, iatrogenic injury to normal neurovascular structures, persistent pain and disability, unsightly scar, stiffness, complex regional pain syndrome, malunion, non union, hardware failure, need for hardware removal, loss of limb, myocardial infarction, deep vein thrombosis, pulmonary embolism and even . We also discussed the potential risk of COVID-19 exposure or infection and how it could alter her post operative recovery course. She has had full opportunity to ask her questions. I have answered them all to her satisfaction. I feel that Ms. Yodit Landin does understand our discussion today and she iscomfortable providing informed consent for the procedure. documented in this [facility]04-10-2024 Hospital Discharge instructions* Discharge Instructions* Chay Patel PA-C - 09/03/2023 7:14 AM EDT Bandage: Keep operative splint/dressing on, clean, and dry until follow up appointment in 1-2 weeks. Swelling control: Elevate and Ice for pain control. Immobilization: Encourage range of motion of index finger, long finger, ring finger, little finger, thumb, and elbow in splint/dressing with goal of touching finger tips to splint material/dressing in palm by initial post op appointment. Weightbearing: Non weight bearing in operative extremity. Nerve block for pain control: You received a local injection with lidocaine and epinephrine today. It is normal for your finger tip to look pale or white for up to 10 hours after surgery but if this persists past the 10 hours please call the office immediately. * Attachments The following attachments cannot be sent through Care Everywhere. * Moderate Sedation in Adults Discharge Instructions (Yemeni) documented in this [facility]03-26-2024 Telephone encounter Note* Telephone Encounter - Moshe Key MD - 08/19/2023 3:31 PM EDT I do not know what this is about? [email or web address] Phone: [phone] Miscellaneous Notes* Telephone Encounter - Moshe Key MD - 08/19/2023 3:31 PM EDT I do not know what this is about? * Telephone Encounter - Jessica Gil - 08/19/2023 2:00 PM EDT Name of caller: Yodit Contact phone number: [phone] Relationship to Patient: patient Provider: [facility] Chief Complaint/Reason for Call: appt with Dr. Alvin Beltran DPM on 2:45 Best time of day caller can be reached: any Patient advised that office/PCP has 24-48 business hours to return their call: N/A Pt has surg on 09/03/[address] Leos documented in this [facility]03-26-2024 Telephone encounter Note* Telephone Encounter - Jessica Gil - 08/19/2023 2:00 PM EDT Name of caller: Yodit Contact phone number: [phone] Relationship to Patient: patient Provider: Dr. Key Practice: [facility] Chief Complaint/Reason for Call: appt with Dr. Alvin Beltran DPM on 2:45 Best time of day caller can be reached: any Patient advised that office/PCP has 24-48 business hours to return their call: N/A Pt has surg on 09/03/[address] Leos Why Not Give [id number] Telephone encounter Note* Telephone Encounter - Nadya Harkins PA-C - 08/08/2023 2:13 PM EDT PAT orders signed [email or web address] Phone: [phone] Miscellaneous Notes* Telephone Encounter - Nadya Harkins PA-C - 08/08/2023 2:13 PM EDT PAT orders signed * Telephone Encounter - Linda Baig - 08/07/2023 10:42 AM EDT Sent patient PLASTIQhart message with all sx information * Telephone Encounter - Linda Baig - 08/07/2023 10:34 AM EDT Called [facility]. Spoke with Marcela. No PA required. Ref# [id number] * Telephone Encounter - Linda Baig - 08/06/2023 10:03 AM EDT Sent to sx schdeuling * Telephone Encounter - Linda Baig - 08/05/2023 1:42 PM EDT ----- Message from Merlin Johnson ATC sent at 08/05/2023 1:36 PM EDT ----- DERIC SURGERY SCHEDULING SLIP Patient: Yodit Landin Date of : 1955 Date of Surgery: 09/03/23 @ 9:30am Day of Surgery: Friday Hospital: [facility] Duration: 60 min Type: Outpatient PAT: Yes 08/26@[facility]@10:00pm Med Clearance: No Anesthesia: MAC/Local Block: None Position: Supine Table: Stretcher Arm Board: Roll-up arm table Radiology: None CPT Code: 10353 DX Code: M67.431 Case # [id number] Consent: right volar radial Wrist mass excision FollowUp: Torin in 10-14 days XRays: no OT Splint needed at first PO appointment: no Special Requests Hand tray Ek[place] blade Vessel loops available but not open 3.0 monocryl 4.0 nylon Small xeroform Splint material 4 inch plaster documented [facility] this [id number] Telephone encounter Note* Telephone Encounter - Linda Baig - 08/07/2023 10:42 AM EDT Sent patient MyChart message with all sx information [id number] Miscellaneous Notes* Telephone Encounter - Linda Baig - 08/07/2023 10:42 AM EDT Sent patient MyChart message with all sx information * Telephone Encounter - Linda Baig - 08/07/2023 10:34 AM EDT Called [facility]. Spoke with Marcela. No PA required. Ref# [id number] * Telephone Encounter - Linda Baig - 08/06/2023 10:03 AM EDT Sent to [facility] * Telephone Encounter - Linda Baig - 08/05/2023 1:42 PM EDT ----- Message from Merlin Johnson ATC sent at 08/05/2023 1:36 PM EDT ----- DERIC SURGERY SCHEDULING SLIP Patient: Yodit Landin Date of : 1955 Date of Surgery: 09/03/23 @ 9:30am Day of Surgery: Friday Hospital: [facility] Duration: 60 min Type: Outpatient PAT: Yes 08/26@[facility]@10:00pm Med Clearance: No Anesthesia: MAC/Local Block: None Position: Supine Table: Stretcher Arm Board: Roll-up arm table Radiology: None CPT Code: 28583 DX Code: M67.431 Case # [id number] Consent: right volar radial Wrist mass excision FollowUp: Biro in 10-14 days XRays: no OT Splint needed at first PO appointment: no Special Requests Hand tray Ek[place] blade Vessel loops available but not open 3.0 monocryl 4.0 nylon Small xeroform Splint material 4 inch plaster documented in this [facility]SSelect [facility] [id number] Telephone encounter Note* Telephone Encounter - Linda Baig - 08/07/2023 10:34 AM EDT Called [facility]. Spoke with Marcela. No PA required. Ref# [id number] [id number] Telephone encounter Note* Telephone Encounter - Linda Baig - 08/06/2023 10:03 AM EDT Sent to [id number] Telephone encounter Note* Telephone Encounter - Linda Baig - 08/05/2023 1:42 PM EDT ----- Message from Merlin Johnson ATC sent at 08/05/2023 1:36 PM EDT ----- DERIC SURGERY SCHEDULING SLIP Patient: Yodit Landin Date of : 1955 Date of Surgery: 09/03/23 @ 9:30am Day of Surgery: Friday Hospital: [facility] Duration: 60 min Type: Outpatient PAT: Yes 08/26@[facility]@10:00pm Med Clearance: No Anesthesia: MAC/Local Block: None Position: Supine Table: Stretcher Arm Board: Roll-up arm table Radiology: None CPT Code: 47744 DX Code: M67.431 Case # [id number] Consent: right volar radial Wrist mass excision FollowUp: Biro in 10-14 days XRays: no OT Splint needed at first PO appointment: no Special Requests Hand tray Ekuk blade Vessel loops available but not open 3.0 monocryl 4.0 nylon Small xeroform Splint material 4 inch plaster [id number] History of Present illness Narrative* Austin Leos MD - 08/05/2023 1:00 PM EDT Images from the original note were not included. [facility] [address] [place] [id number] Dept: [phone] Dept 08/05/2023 Chief Complaint Patient presents with New Patient Right wrist mass HPI Yodit Landin is a 68 y.o. right handed female that presents for evaluation of mass in her BILATERALWrist. Symptoms have been present for 1 year(s). The symptoms started after patient denies any direct trauma. She reports that she denies having any trauma to the area. She notes that she had a history of ganglion cyst removal in the wrist in 2021 and 2022. Patient notes that the mass never went away after the seconds was still present Pain Characteristics Described as discomfort Worse with none Alleviated nothing Severity 1 on scale of 1-10 Previous Treatments NSAIDs: No - Have not tried Injection: No - Has never received an injection Therapy: No - Has not attempted formal therapy Splinting: No - Has not tried any splinting Surgery: Yes - Has had previous surgery to include: previous ganglion cyst removal approximately 2021, then another ganglion cyst removal and tendon (possibly 1st dorsal compartment release) surgery by Dr. Woo in [place] in 2022 MRI: No Has not had an MRI Patient reports that she has had bilateral wrist masses for the past year. She states she previously underwent surgery to remove one of her wrist masses on her right side however it recurred. She hasnot had any treatments on her left side. She takes [id number] pain medicine for other problems and helps with her pain but she is does have intermittent pain with bilateral wrist over her masses . Lab Results Component Value Date HGBA1C 6.8 (H) 05/07/2023 Past Surgical History: Procedure Laterality Date SECTION, LOW TRANSVERSE CYST REMOVAL Right ganglion cyst of the right wrist. HYSTERECTOMY LAP,CHOLECYSTECTOMY (HISTORICAL) 10/04/2015 Dr. Kenny Baird LEFT OOPHORECTOMY ROTATOR CUFF REPAIR Right TONSILLECTOMY Past Medical History: Diagnosis Date Diabetes mellitus (HCC) Hemochromatosis Hypertension Allergies Allergen Reactions Codeine Dizziness, Vomiting Only and Nausea And Vomiting Sulfamethoxazole Nausea And Vomiting Trimethoprim Nausea And Vomiting Bactrim [Sulfamethoxazole-Trimethoprim] Vomiting Only Current Outpatient Medications Medication Sig Dispense Refill [...] tablet levothyroxine (Synthroid, Levoxyl) 75 MCG tablet meclizine (Antivert) 25 MG tablet metFORMIN (Glucophage) 1000 MG tablet nystatin (Mycostatin) cream omega-3 (Fish Oil) 1200 MG capsule Take 1,200 mg by mouth daily. omeprazole (PriLOSEC) [address] capsule Vitamin E 450 MG (1000 UT) capsule Take 450 mg by mouth daily. No current facility-administered medications for this visit. OBJECTIVE BP 104/68 Ht 5' 3.5 (1.613 m) Wt 194 lb (88 kg) BMI 33.83 kg/m Ortho Exam BILATERAL Upper Extremity Mass Characteristics Size: 2 cm X 2 cm- right, [id number] left Location: radial, volar Depth: superficial Mobility: mobile Tenderness: tender Transillumination: Yes Clinical Photo (if obtained at office visit): Yes LEFT WRIST LEFT WRIST RIGHT WRIST RIGHT WRIST Wrist ROM: Full - with no pain Skin: Intact without any evidence of breakdown Edema: Surrounding the mass Motor: intact in the hand - able to fire AIN, PIN, and Ulnar nerves Sensation: to light touch normal in the median, ulnar, and radial nerve distributions Perfusion: Brisk cap refill to all digits Examination of the contralateral limb reveals no masses, skin intact, no edema, full ROM, no motor deficits, normal sensation, no evidence of instabilities, and adequate perfusion. IMAGING Plain films were reviewed from outside disc. 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 No acute bony process. PROCEDURE none ASSESSMENT (M25.831) Mass of joint of right wrist PLAN I discussed with Yodit the natural history, expected outcome, and risks/benefits of both operative and nonoperative management of her particular diagnosis relative to her age, activity level, previous treatment, and physical exam. Yodit had some excellent questions, all of which were answered to her satisfaction. Yodit elected to proceed with surgical intervention to include excision of her right volar wrist mass under MAC local. She was educated expected course of recovery. She will call the office with any questions or concerns in the interim. She verbalized understanding and is in agreement this plan. She will follow-up with my physician ob gyn physician assistant postoperatively. I had an extensive discussion with Ms. Yodit Landin and any family members present regarding the natural history, etiology, and alf consequences of her condition. I have outlined a treatment plan with them and, in my opinion, surgical intervention is indicated at this time. I have discussed with Ms. Yodit Landin the potential complications, limitations, expectations, alternatives, and risksof the surgical procedure which include but are not limited to the risks of injury to normal structures, persistent pain and disability, unsightly scar, postoperative stiffness, need for revision surgery, infection, myocardial infarction, deep vein thrombosis, pulmonary embolism, and even . She has had full opportunity to ask her questions. I have answered them all to her satisfaction. I feel that Ms. Yodit Landin and any present family members do understand our discussion today and she iscomfortable providing informed consent for the procedure. The above diagnosis has been present for less than 1 year I did thoroughly review previous notes from other providers including myself, previous imaging, as well as pertinent testing including X-rays Today's treatment plan includes Surgical Intervention Follow-up: Yodit will followup with my physician ob gyn physician assistant, Nadya Harkins PA-C post operatively. She knows to call the office with any questions or concerns in the interim. Future Imaging: NONE Austin Leos MD Hand, Plastic, and Reconstructive Surgery [facility] Department of Orthopedics and Sports Medicine 08/05/2023 at 1:13 PM (Please note that portions of this note may have been completed with a voice recognition program. Efforts were made to edit the dictations but occasionally words are mis-transcribed.) documented in this [facility]03-12-2024 Instructions* Patient Instructions* Merlin Johnson ATC - 08/05/2023 1:00 PM EDT Linda Houser Rigging Man for Dr. Austin Leos F: [phone] documented in this [facility]02-29-2024 Evaluation + Plan note* Assessment & Plan Note - ASAF Ramos CNP - 07/24/2023 11:20 AM ESTAssociated Problem(s): Other specified hypothyroidism Stable. Continue levothyroxine 75 mcg daily [id number] Miscellaneous Notes* Assessment & Plan Note - ASAF Ramos CNP - 07/24/2023 11:20 AM ESTAssociated Problem(s): Other specified hypothyroidism Stable. Continue levothyroxine 75 mcg daily * Assessment & Plan Note - ASAF Ramos CNP - 07/24/2023 11:10 AM ESTAssociated Problem(s): Bilateral foot pain Previously had orthotics which alleviated the problem- refer to podiatry for evaluation and treatment * Assessment & Plan Note - ASAF Ramos CNP - 07/24/2023 11:09 AM ESTAssociated Problem(s): Mass of joint of right wrist Most likely ganglion cyst. Follow up with ortho as scheduled. * Assessment & Plan Note - ASAF Ramos CNP - 07/24/2023 11:08 AM ESTAssociated Problem(s): Type 2 diabetes mellitus without complication, without long-term current useof insulin ([facility]/HCC) (HCC) Controlled. Continue metformin 1000 mg twice daily * Assessment & Plan Note - ASAF Ramos CNP - 07/24/2023 11:07 AM ESTAssociated Problem(s): Hypertension Controlled. Continue irbesartan 300 mg daily * Assessment & Plan Note - ASAF Ramos CNP - 07/24/2023 11:07 AM ESTAssociated Problem(s): Hereditary hemochromatosis (HCC) Has been stable. Check cbc, iron levels today. documented in this [facility]02-29-2024 Evaluation + Plan note* Assessment & Plan Note - ASAF Ramos CNP - 07/24/2023 11:10 AM ESTAssociated Problem(s): Bilateral foot pain Previously had orthotics which alleviated the problem- refer to podiatry for evaluation and treatment [facility]02-29-2024 Evaluation + Plan note* Assessment & Plan Note - ASAF Ramos CNP - 07/24/2023 11:09 AM ESTAssociated Problem(s): Mass of joint of right wrist Most likely ganglion cyst. Follow up with ortho as scheduled. [facility]02-29-2024 Evaluation + Plan note* Assessment & Plan Note - ASAF Ramos CNP - 07/24/2023 11:08 AM ESTAssociated Problem(s): Type 2 diabetes mellitus without complication, without long-term current useof insulin ([facility]) ([facility]) Controlled. Continue metformin 1000 mg twice daily [facility]02-29-2024 Evaluation + Plan note* Assessment & Plan Note - ASAF Ramos CNP - 07/24/2023 11:07 AM ESTAssociated Problem(s): Hypertension Controlled. Continue irbesartan 300 mg daily [facility]02-29-2024 Evaluation + Plan note* Assessment & Plan Note - ASAF Ramos CNP - 07/24/2023 11:07 AM ESTAssociated Problem(s): Hereditary hemochromatosis (HCC) Has been stable. Check cbc, iron levels today. [id number] History of Present illness Narrative* Dian Stuart - 07/24/2023 10:00 AM EST Patient was identified by name and Date of . Venipuncture completed Patient was identified by name and date of -orders verified in [facility]. Site cleansed with alcohol swab and using a sterile needle, left AC accessed per [facility]'s policy and procedure. Bandage applied to site no bleeding or hematoma noted, patient tolerated well. X 1 attempts. Advised to leave bandage on for at least 20 minutes to prevent swelling and bruising. * ASAF Ramos CNP - 07/24/2023 10:00 AM EST Images from the original note were not included. 07/24/2023 Yodit Landin (: 1955) is a 68 y.o. female , Established patient, here for evaluation of thefollowing chief complaint(s): Medication Check and Foot Pain (Pended referral) ASSESSMENT/PLAN: 1. Hereditary hemochromatosis (HCC) Assessment & Plan: Has been stable. Check cbc, iron levels today. Orders: - CBC auto differential - Iron and TIBC - Ferritin 2. Primary hypertension Assessment & Plan: Controlled. Continue irbesartan 300 mg daily 3. Type 2 diabetes mellitus without complication, without long-term current use of insulin (CMS/HCC) (HCC) Assessment & Plan: Controlled. Continue metformin 1000 mg twice daily 4. Bilateral foot pain Assessment & Plan: Previously had orthotics which alleviated the problem- refer to podiatry for evaluation and treatment Orders: - External referral to Podiatry 5. Mass of joint of right wrist Assessment & Plan: Most likely ganglion cyst. Follow up with ortho as scheduled. 6. Other specified hypothyroidism Assessment & Plan: Stable. Continue levothyroxine 75 mcg daily Follow up in about 3 months (around 10/22/2023) for 3 month radames. SUBJECTIVE/OBJECTIVE: JAIME Landin (: 1955) is a 68 y.o. female , Established patient, here for the evaluation ofthe following chief complaint(s): Medication Check and Foot Pain (Pended referral) Patient presents today for med check Bilateral foot pain. Reports she was recently sick with a gastrointestinal illness July 01, 2023 and was seen in the emergency room also for vertigo. Reports that her symptoms have mostly resolved but continues to have slight nasal congestion. Her blood glucose readings have been good however states that they were a little higher when she was sick. Fasting usually less than 120 consistantly. Last [id number] was 6.8. Currently on metformin daily Ganglion cysts bilateral wrists-has appointment with dr. Leos August 04, for further evaluation. Wears sleeve which helps, but it does ache constantly. Bilateral foot pain-patient reports has had bilateral foot pain that is just getting worse. Noticesmost after she has been walking for long periods of time. Reports that she previously had orthoticswhich alleviated the problem. Would like referral to a crm functional analyst. Denies any numbness or tingling of the feet Hypothyroidism-TSH has been normal-continue levothyroxine 75 mcg daily Prior to Admission medications Medication Sig Start [...] 75 MCG tablet 01/11/23 Yes Historical Provider, meclizine (Antivert) 25 MG tablet 07/01/23 Yes Historical Provider, metFORMIN (Glucophage) 1000 MG [...] Yes Historical Provider, Review of Systems Constitutional: Negative. HENT: Positive for congestion. Negative for postnasal drip, rhinorrhea, sinus pressure and sinus pain. Respiratory: Negative. Cardiovascular: Negative. Gastrointestinal: Negative. Genitourinary: Negative. Musculoskeletal: Positive for arthralgias. Neurological: Negative. Psychiatric/Behavioral: Negative. Vitals: 07/24/23 1002 BP: 96/60 Pulse: 50 Resp: 24 Temp: 36.8 C (98.2 F) TempSrc: Infrared SpO2: 99% Weight: 199 lb (90.3 kg) Physical Exam Constitutional: General: She is not in acute distress. Appearance: Normal appearance. She is obese. She is not ill-appearing. Cardiovascular: Rate and Rhythm: Normal rate and regular rhythm. Pulses: Normal pulses. Heart sounds: Normal heart sounds. Pulmonary: Effort: Pulmonary effort is normal. Breath sounds: Normal breath sounds. Musculoskeletal: Right wrist: Swelling present. Hands: Skin: General: Skin is warm and dry. Neurological: Mental Status: She is alert and oriented to person, place, and time. An electronic signature was used to authenticate this note. ASAF Ramos CNP 07/24/2023 11:21 AM documented in this [facility]02-29-2024 Instructions* Patient Instructions* ASAF Ramos CNP - 07/24/2023 10:[address] [facility]. documented in this [facility]02-06-2024 Discharge summary Author Juan Jose Stallworth [facility] July 01, 2023 8:05pm Note Date/Time July 01, 2023 6 :59pm [facility] Medical Records Department [address] [place] [address] Emergency Department Summary 07/01/23 MR#: [id number] Acct: [id number] Name: YODIT LANDIN Rep #:[id number] : 1955 67 From: Juan Jose Stallworth DO PCP: Care Physician,No Primary Status :REG ER Location: ED HPI HPI - GI History of Present Illness Chief Complaint: Nausea/Vomiting/Diarrhea Narrative Narrative: 67-year-old female presenting with nausea, vomiting, diarrhea which started on Friday. Patient states that she had a sick granddaughter over who had the same symptoms on Friday. Patient's granddaughter recovered. Patient started having symptoms on Friday. Patient has recovered since and has been able to eat some oatmeal and drink some fluids however today she noted that she was getting vertiginous dizziness. She states it feels like vertigo. She has had this in the past. She states that she does not have any medication for it. Shestates she is never been prescribed anything for her vertigo. She states that someone with the crystals in the ear or right. Patient denies any fevers over the course the last few days. She does not have a cough, shortness of breath, chest pain. Patient was seen by urgent care who tested her for COVID and influenza. Patient states these were negative. Patient was sent over to the ERout of concern for dehydration. She denies any anything out of the ordinary prior to becoming ill. She denies urinary or vaginal complaints. She denies abdominal pain. [facility] Medical History (Updated 07/01/23 @ 20:[address] Juan Jose Stallworth DO) Dehydration Nausea vomiting and diarrhea Home Medications meclizine 25 mg tablet 25 mg PO TID PRN dizziness #30 tabs 07/01/23 [Rx Last Taken Unknown] ondansetron 4 mg disintegrating tablet 4 mg PO Q8H PRN PRN Nausea #20 tabs 07/01/23 [Rx Last Taken Unknown] Allergy/AdvReac Type Severity Reaction Status Date / Time codeine AdvReac Intermediate Vomiting Verified 07/01/23 17:49 sulfamethoxazole AdvReac Intermediate Vomiting Verified 07/01/23 17:49 [From Bactrim] trimethoprim [From Bactrim] AdvReac Intermediate Vomiting Verified 07/01/23 17:49 Social History Smoking Status: Current every day smoker tobacco type: cigarettes ROS ROS ED Constitutional Constitutional ED: Denies chills, fever(s) or sweats Eyes Eyes: Denies blurry vision or change in vision ENT ENT ED: Denies ear pain or sore throat Cardiovascular Cardiovascular: Denies chest pain, palpitations or racing heartbeat Respiratory/Chest Respiratory/Chest: Denies cough, dyspnea or sputum Gastrointestinal Gastrointestinal: Reports diarrhea, nausea and vomiting; Denies abdominal pain or constipation Genitourinary Genitourinary ED: Denies dysuria, hematuria or urinary frequency Musculoskeletal Musculoskeletal: Denies arthralgias, myalgias or neck pain Integumentary Denies abscess, Abrasions or rash Neurologic Neurologic: Denies headache(s), paresthesias or weakness Psychiatric Psychiatric: Denies anxiety, depression, suicidal ideation or suicidal thoughts Endocrine Endocrinology: Denies polydipsia or polyuria EXAM Physical Exam Const Vital Signs: 07/01/23 17:47 07/01/23 18:52 Temperature 96.7 F L Temperature Source Temporal Pulse Rate 87 79 Respiratory Rate 18 Blood Pressure 136/77 H 125/70 H Blood Pressure Mean 96 88 Pulse Ox 100 Oxygen Delivery Method Room Air Positive well nourished General Appearance ED: NAD HEENT Reports moist mucous membranes HEENT Narrative: Positive [place]-Hallpike. Nystagmus noted. normocephalic and atraumatic Eyes PERRL Resp normal respiratory effort and clear to auscultation bilaterally Auscultation: Negative for rales, rhonchi or wheezes Cardio regular rate and regular rhythm GI non-tender Neuro CN's II-XII intact bilaterally Sensorium / Orientation: alert Psych mental status grossly normal MDM MDM MDM Narrative Medical decision making narrative: Patient presenting with nausea, vomiting and diarrhea which has resolved. She was seen by urgent care and there was concerned she is dehydrated although the patient states has been able to drink fluids and eat oatmeal over the course of the day. Her p.o. intake was lower than typical over the past couple of days. She does have a sick granddaughter who had similar symptoms so I suspect this islikely viral. She describes vertiginous dizziness and on exam she has positive [place]-Hallpike. She is medicated with meclizine and Phenergan. IV line was established. She given a liter normal saline. CT started and tested for COVID influenza will not retest. CBC will be obtained to assess white blood cell count and hemoglobin. BMP to assess renal function, electrolytes, glucose. Will reevaluate. Reevaluation at 8 PM the patient is doing much better. She isbeen up and ambulating. She had something to eat and drink and she feels much better. I do suspect this is likely benign positional vertigo. CBC shows normal white blood cell count of 6.7. Hemoglobin 12.0. Platelets are normal at192. Creatinine is elevated at 1.82 with a BUN of 37 and a BUN/creatinine ratioof 20.3 however there is no lab work comparison for this. I was able to log into [employer], and I was not able to find pertinent medical records available for review to compare to the patient's current lab/imaging/workup. There is no comparison BMP. I presume she is dehydrated. It is unclear what her baseline creatinine is. Since she is feeling better I will discharge her home. She likely has a viral syndrome preceding this. She is given Zofran and meclizine for home. Return precautions discussed. Impression: 1. Viral gastroenteritis 2. Vertigo Lab Data Attestation: I reviewed the patient's lab results. Labs: Laboratory Results - last 24 hr 07/01/23 07/01/23 18:40 19:39 WBC 6.7 RBC 4.02 L Hgb 12.0 Hct 35.9 L MCV 89.3 MCH 29.9 MCHC 33.4 RDW Std Deviation 44.1 H RDW Coeff of Christina 13.5 Plt Count 192 MPV 9.7 Immature Gran % (Auto) 0.100 Neut % (Auto) 52.3 Lymph % (Auto) 31.6 [place] % (Auto) 12.1 H Eos % (Auto) 3.6 Baso % (Auto) 0.3 Absolute Neuts (auto) 3.5 Absolute Lymphs (auto) 2.12 Nucleated RBC % 0 Sodium 133 L Potassium 3.5 Chloride 99 Carbon Dioxide 27.0 Anion Gap 7 BUN 37 H Creatinine 1.82 H Estim Creat Clear Calc 27.28 Est GFR (MDRD) Af Amer 35 L Est GFR (MDRD) Non-Af 29 L BUN/Creatinine Ratio 20.3 H Glucose 123 H Calcium 8.7 Urine Color Yellow Urine Clarity Sl. Cloudy Urine pH 5.0 Ur Specific [place] 1.020 Urine Protein 15 H Urine Glucose (UA) Normal Urine Ketones 5 H Urine Occult Blood Negative Urine Nitrite Negative Urine Bilirubin 1 H Urine Urobilinogen 4 H Ur Leukocyte Esterase 100 H Urine RBC 0 SEEN Urine WBC 5-10 SEEN Ur Squamous Epith Cells 0-5 SEEN Urine Bacteria 0 SEEN Urine Mucus 0 SEEN Discharge Plan Triage Chief Complaint: Nausea/Vomiting/Diarrhea ED Provider: Juan Jose Stallworth Dx/Rx/DC Orders Instructions: ED Vertigo, Unspecified, ED Gastroenteritis, Viral (Adult) Prescriptions: New meclizine 25 mg tablet 25 mg PO TID PRN (Reason: dizziness) Qty: 30 0RF ondansetron 4 mg tablet,disintegrating 4 mg PO Q8H PRN PRN (Reason: Nausea) Qty: 20 0RF Primary Care Provider: Care Physician,No Primary Referrals: Care Physician,No Primary [Primary Care Provider] - Disposition Disposition: Home, Self Care What to do if you have Problems For any increased pain, shortness of breath, bleeding, nausea or vomiting, chestpain, or any unexpected problems, contact your Primary Care Provider. Call [facility] ([phone]) or report to the closest Emergency Room. Call 911 if necessary. 07/01/232004 <Electronically signed by Juan Jose Stallworth DO> Cosigner Signature (if applicable): CC: No Primary Care Physician ~ Signed [facility] Work Phone: [phone] 173-676901-16-2024 Telephone encounter Note* Telephone Encounter - 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, ASAF - TECHNICAL SUPPORT ANALYST - 06/10/2023 7:28 AM EST Received xray results. Please notify patient, No bony mass. Recommend seeing insurance law specialist (previously referred) for further evaluation as may need an MRI to further evaluate. (This will be ordered by them if needed). [id number] Miscellaneous Notes* Telephone Encounter - ASAF Ramos CNP - 06/10/2023 7:28 AM EST Received xray results. Please notify patient, No bony mass. Recommend seeing insurance law specialist (previously referred) for further evaluation as may need an MRI to further evaluate. (This will be ordered by them if needed). * Telephone Encounter - Emily Kingsley MA - 06/09/2023 10:18 AM EST Noted. * Telephone Encounter - Coty Smith - 06/09/2023 9:45 AM EST See previous TE from today Name of caller: Yodit Contact phone number: [phone] Relationship to Patient: patient Provider: Dr Key [...] return their call: N/A documented in this [facility]01-15-2024 Telephone encounter Note* Telephone Encounter - Emily Kingsley MA - 06/09/2023 10:18 AM EST Noted. [id number] Telephone encounter Note* Telephone Encounter - Coty Smith - 06/09/2023 9:45 AM EST See previous TE from today Name of caller: Yodit Contact phone number: [phone] Relationship to Patient: patient Provider: Dr Key [...] business hours to return their call: N/A [id number] Evaluation + Plan note* Assessment & Plan Note - ASAF Ramos CNP - 06/04/2023 3:20 PM ESTAssociated Problem(s): Mass of joint of right wrist Suspect ganglion cyst of the right wrist. Will obtain imaging to rule out anything worrisome. Continue compression sleeve. Referral placed to orthopedics for further evaluation and treatment due to size and bothersome. [id number] Miscellaneous Notes* Assessment & Plan Note - ASAF Ramos CNP - 06/04/2023 3:20 PM ESTAssociated Problem(s): Mass of joint of right wrist Suspect ganglion cyst of the right wrist. Will obtain imaging to rule out anything worrisome. Continue compression sleeve. Referral placed to orthopedics for further evaluation and treatment due to size and bothersome. documented in this [facility]01-10-2024 History of Present illness Narrative* Dian Stuart - 06/04/2023 1:20 PM EST Patient was identified by name and Date of . * 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, SUPERVISOR [employer]ING - TECHNICAL SUPPORT ANALYST - 06/04/2023 1:20 PM EST Images from the original note were not included. 06/04/2023 Yodit Landin (: 1955) is a 67 y.o. female , Established patient, here for evaluation of thefollowing chief complaint(s): Cyst (Bilateral-but right is the one that is painful) ASSESSMENT/PLAN: 1. Mass of joint of right wrist Assessment & Plan: Suspect ganglion cyst of the right wrist. Will obtain imaging to rule out anything worrisome. Continue compression sleeve. Referral placed to orthopedics for further evaluation and treatment due to size and bothersome. Orders: - XR wrist 3+ views right - [facility] [place] No follow-ups on file. SUBJECTIVE/OBJECTIVE: HPI - Yodit Landin (: 1955) is a 67 y.o. female , Established patient, here for the evaluation ofthe following chief complaint(s): Cyst (Bilateral-but right is [...] of carpal tunnel surgery in 06/2022 in [place] on the right wrist. Prior to Admission [...] Historical Provider, furosemide (Lasix) 20 MG tablet 9/8/23 Yes Historical Provider, indomethacin (Indocin) 50 MG [...] CNP 06/04/2023 3:21 PM documented in this [facility]11-29-2023 Evaluation + Plan note* Assessment & Plan Note - ASAF Ramos CNP - 04/23/2023 1:24 PM ESTAssociated Problem(s): Hypertension Blood pressure initially elevated. Continue current medications and follow-up for labs [id number] Miscellaneous Notes* Assessment & Plan Note - ASAF Ramos CNP - 04/23/2023 1:24 PM ESTAssociated Problem(s): Hypertension Blood pressure initially elevated. Continue current medications and follow-up for labs * Assessment & Plan Note - ASAF Ramos CNP - 04/23/2023 1:23 PM ESTAssociated Problem(s): Hereditary hemochromatosis (HCC) Check CBC CMP TIBC iron and ferritin. Consider referral to hematology. * Assessment & Plan Note - ASAF Ramos CNP - 04/23/2023 1:22 PM ESTAssociated Problem(s): Type 2 diabetes mellitus without complication, without long-term current useof insulin (CMS/HCC) (HCC) Controlled. Glucose readings have been good that she brought in from home. Will check hemoglobin A1c documented in this [facility]11-29-2023 Evaluation + Plan note* Assessment & Plan Note - ASAF Ramos CNP - 04/23/2023 1:23 PM ESTAssociated Problem(s): Hereditary hemochromatosis (HCC) Check CBC CMP TIBC iron and ferritin. Consider referral to hematology. [id number] Evaluation + Plan note* Assessment & Plan Note - ASAF Ramos CNP - 04/23/2023 1:22 PM ESTAssociated Problem(s): Type 2 diabetes mellitus without complication, without long-term current useof insulin ([facility]) ([facility]) Controlled. Glucose readings have been good that she brought in from home. Will check hemoglobin A1c [id number] History of Present illness Narrative* Dian Stuart - 04/23/2023 10:00 AM EST Patient was identified by name and Date of . Health Main: AWV-Today DEXA-declined Colon-completed in [place]([facility] yrs ago)-sent MYRNA Pneumo-discuss with provider-done at visit DM foot-pended DM dental-done a year ago Zoster-stated it was completed-[facility] [address] Lung-declined RSV-declined Flu-completed at [facility] Patient was identified by name and Date Of . After obtaining informed consent, Immunization(s)were ordered by provider. The patient and or [...] Immunization(s) was given by Dian Stuart MA. * ASAF Ramos CNP - 04/23/2023 10:00 AM EST Images from the original note were not included. [facility] [address] [facility] [address] Dept: [phone] Dept Chief Complaint: Yodit Landin is an [...] A1c Relevant Orders Hemoglobin A1c Lipid panel Diabetes Foot Exam (Completed) Hereditary hemochromatosis (HCC) [...] tablet chlorthalidone (Hygroton) 25 MG tablet cyanocobalamin ( Vitamin B-12) 500 MCG tablet Take 500 [...] Also reviewed during this visit: Found an apartment/critical access hospital- [place]. Will be moving soon. Will be going [...] of current healthcare providers: Patient Care Team: Moshe Key MD as PCP - General (Family [...] Neurological: Positive for dizziness (intermittently). Negative for light- headedness and headaches. Psychiatric/Behavioral: Negative for self-injury, sleep disturbance and suicidal ideas. The patientis nervous/anxious. Physical Exam Constitutional: General: She is [...] kg/m No results found. documented in this [facility]11-29-2023 Instructions* Patient Instructions* ASAF Ramos CNP - 04/23/2023 10:00 AM EST Personalized Preventative Plan for Yodit Landin - 04/23/2023 Medicare offers a range of preventative health benefits. Some of the tests and screenings are paid in full while others may be subject to a deductible, co- insurance, and / or copay. Some of these benefits include a comprehensive review of your medical history including lifestyle, illnesses that mayrun in your family, and various assessments and [...] Recommendations: A preventive eye exam by an eye clinic manager is recommended every 1-2 years to screen for glaucoma, cataracts, macular degeneration, and other eye disorders. A preventive dental visit is recommended every 6 months. Try to get at least 150 minutes of exercise per week or 10,000 steps per day on a pedometer. You need 1200-1500mg of calcium and 4522-5186 international units of vitamin D per day. [...] when riding a bicycle or a motorcycle * Attachments The following attachments cannot be sent through Care Everywhere. * Pneumococcal Conjugate Vaccine (20-Valent), ADULT (Yemeni) documented in this [facility]11-08-2023 Evaluation + Plan note* Assessment & Plan Note - ASAF Ramos CNP - 04/02/2023 12:51 PM ESTAssociated Problem(s): Primary osteoarthritis involving multiple joints Obtain records. For now we will continue indomethacin 50 mg daily for pain. [id number] Miscellaneous Notes* Assessment & Plan Note - ASAF Ramos CNP - 04/02/2023 12:51 PM ESTAssociated Problem(s): Primary osteoarthritis involving multiple joints Obtain records. For now we will continue indomethacin 50 mg daily for pain. * Assessment & Plan Note - ASAF Ramos CNP - 04/02/2023 12:50 PM ESTAssociated Problem(s): Hypertension Initial blood pressure elevated 161/81. Repeat blood pressure good 132/78. Continue chlorthalidone 25 mg daily, Lasix 20 mg, irbesartan 300 mg daily. * Assessment & Plan Note - ASAF Ramos CNP - 04/02/2023 12:49 PM ESTAssociated Problem(s): Type 2 diabetes mellitus without complication, without long-term current useof insulin (CMS/HCC) (HCC) Controlled. Glucose readings fasting under 110 consistently per patient diabetes log. Will check hemoglobin A1c at next visit. * Assessment & Plan Note - ASAF Ramos CNP - 04/02/2023 12:10 PM ESTAssociated Problem(s): Hereditary hemochromatosis (HCC) Obtain records. Return for labs as scheduled (check cbc, cmp, TIBC, iron and ferritin) consider referral to hematology documented in this [facility]11-08-2023 Evaluation + Plan note* Assessment & Plan Note - ASAF Ramos CNP - 04/02/2023 12:50 PM ESTAssociated Problem(s): Hypertension Initial blood pressure elevated 161/81. Repeat blood pressure good 132/78. Continue chlorthalidone 25 mg daily, Lasix 20 mg, irbesartan 300 mg daily. [id number] Evaluation + Plan note* Assessment & Plan Note - ASAF Ramos CNP - 04/02/2023 12:49 PM ESTAssociated Problem(s): Type 2 diabetes mellitus without complication, without long-term current useof insulin (CMS/HCC) (HCC) Controlled. Glucose readings fasting under 110 consistently per patient diabetes log. Will check hemoglobin A1c at next visit. [facility] [id number] Evaluation + Plan note* Assessment & Plan Note - ASAF Ramos CNP - 04/02/2023 12:10 PM ESTAssociated Problem(s): Hereditary hemochromatosis (HCC) Obtain records. Return for labs as scheduled (check cbc, cmp, TIBC, iron and ferritin) consider referral to hematology [id number] History of Present illness Narrative* Dian Stuart - 04/02/2023 11:00 AM EST Patient was identified by name and Date of . Health Main: AWV-needs scheduled DEXA-pended Colon-pended Covid-declined PHQ-completed Hep C-declined Tdap-declined Mammo-completed Sept Zoster-declined Pneumo-declined [facility] [place] Flu-completed [facility] MYRNA [facility]ENT [facility](PCP[facility] AND [facility] * ASAF Ramos CNP - 04/02/2023 11:00 AM EST Images from the original note were not included. 04/02/2023 Yodit Landin (: 1955) is a 67 y.o. female , New patient, here for evaluation of the following chief complaint(s): New Patient and Health Maintenance (AWV-needs scheduled/DEXA-pended/Colon-pended/Covid-declined/PHQ-completed/Hep C-declined/Tdap-declined/Mammo-completed Sept/Zoster-declined/Pneumo-declined/Flu-completed [facility] [place]) ASSESSMENT/PLAN: 1. Type 2 diabetes mellitus without complication, without long-term current use of insulin ([facility]/HCC) (HCC) Assessment & Plan: Controlled. Glucose readings [...] with primary care provider as scheduled. SUBJECTIVE/OBJECTIVE: JAIME Landin presents as new patient, previous primary care provider [place] provider, last seen? -01/2023 by previous provider. Specialists/other providers? 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 Chief complaint(s): New Patient and Health Maintenance (AWV-needs scheduled/DEXA-pended/Colon-pended/Covid-declined/PHQ-completed/Hep C-declined/Tdap-declined/Mammo-completed Jan/Zoster-declined/Pneu mo-declined/Flu-completed [facility]) Has been out of state for about 10 years. 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. 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 Recently moved back to [place] to be close to her son and [id number] whom she states were having some marital troubles and she came back to help with watching their 3-year-old daughter. She is currently living with Son-Hi and ALIE - Debbie , grandkids 1 grandson- 18. , 3 yo granddaughter. She is looking for a place to live on her own and has put in several applications to the surrounding apartment complexes. Reports she did have a colonoscopy last [phone] in [place]-reports she was told it was normal -jodi obtain records Hemochromatosis- hx of blood transfusions [...] is tolerable. Also sees a chiropractor in [place]. Hypertension-states her blood pressure is normally in [...] BY MOUTH EVERY TWELVE HOURS NEEDED FOR ANXIETY01/31/23 Yes Historical Provider, atorvastatin (Lipitor) 10 MG [...] Neurological: Positive for dizziness (intermittently). Negative for light- headedness and headaches. Psychiatric/Behavioral: Negative for self-injury, sleep disturbance and suicidal ideas. The patientis nervous/anxious. Vitals: 04/02/23 1107 04/02/23 1245 BP: [...] CNP 04/02/2023 12:59 PM documented in this [id number] Telephone encounter Note* Telephone Encounter - Juana Alegria - 03/21/2023 9:43 AM EDT Name of caller: Yodit Landin Relation to patient: patient Contact phone number: [phone] Appointment scheduled with: 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 Appointment date & time: 04.02.23 11:00 am [...] provider should be aware of: diabetic, hemochromatosis [id number] Miscellaneous Notes* Telephone Encounter - Juana Alegria - 03/21/2023 9:43 AM EDT Name of caller: Yodit Landin Relation to patient: patient Contact phone number: [phone] Appointment scheduled with: 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 Appointment date & time: 04.02.23 11:00 am [...] aware of: diabetic, hemochromatosis [facility] No data available for this section [facility] Evaluation note* Diagnosis Type 2 diabetes mellitus without complication, without long-term current use of insulin (CMS/HCC) (HCC)- Primary Hereditary hemochromatosis (HCC) Hereditary hemochromatosis Primary hypertension Unspecified essential hypertension [facility]* Diagnosis Routine general medical examination at health care facility- Primary Routine general medical examination at a health care facility Type 2 diabetes mellitus without complication, without long-term current use of insulin (CMS/HCC) (HCC) Primary hypertension Unspecified essential hypertension Hereditary hemochromatosis (HCC) Hereditary hemochromatosis Hypothyroidism, unspecified type Immunization due documented in this encounter [facility]* Diagnosis Mass of joint of right wrist- Primary documented in this encounter [facility]* Diagnosis Onset Date Resolution Status Dehydration acute Nausea vomiting and diarrhea acute Orthostasis acute [facility] Work Phone: Evfpawzjfc note* Diagnosis Hereditary hemochromatosis (HCC)- Primary Hereditary hemochromatosis Primary hypertension Unspecified essential hypertension Type 2 diabetes mellitus without complication, without long-term current use of insulin (CMS/HCC) (HCC) Bilateral foot pain Mass of joint of right wrist Other specified hypothyroidism [facility]* Diagnosis Mass of joint of right wrist Ganglion, right wrist documented in this encounter [facility]* Diagnosis Mass of joint of right wrist- Primary Ganglion, right wrist [facility]* Diagnosis Mass of joint of right wrist- Primary Ganglion, right wrist documented in this encounter [facility]* Diagnosis H/O excision of mass- Primary Ganglion, right wrist documented in this encounter [facility] note* Diagnosis Visit for wound check- Primary documented in this encounter [facility] note* Diagnosis S/P excision of ganglion cyst- Primary Mass of joint of right wrist documented in [facility] Diagnosis Mass of joint of right wrist S/P excision of ganglion cyst documented in this encounter [facility] note* Diagnosis Type 2 diabetes mellitus without complication, without long-term current use of insulin (CMS/HCC) (HCC)- Primary Hereditary hemochromatosis (HCC) Hereditary hemochromatosis Swelling of both lower extremities Bilateral foot pain Primary hypertension Unspecified essential hypertension documented in this encounter [facility] note* Diagnosis Mass of joint of right wrist- Primary S/P excision of ganglion cyst [facility] Diagnosis Left buttock pain- Primary Unspecified myalgia and myositis Bilateral foot pain Colon cancer screening Special screening for malignant neoplasms, colon documented in this encounter [facility] note* Diagnosis Anemia, unspecified type- Primary Iron deficiency anemia, unspecified iron deficiency anemia type Primary hypertension Unspecified essential hypertension Gastroesophageal reflux disease without esophagitis Esophageal reflux Hypothyroidism, unspecified type Mixed hyperlipidemia documented in this encounter [facility] note* Diagnosis Chronic left-sided low back pain without sciatica- Primary Left buttock pain Unspecified myalgia and myositis [facility] Diagnosis Chronic left-sided low back pain without sciatica [facility] Diagnosis Osteopenia of lumbar spine- Primary Degenerative disc disease, lumbar [facility]* Diagnosis Swelling of both lower extremities [facility] Diagnosis Osteopenia of lumbar spine- Primary Degenerative disc disease, lumbar [facility]* Diagnosis Vitamin D deficiency- Primary Hypothyroidism, unspecified type [facility]* Diagnosis Type 2 diabetes mellitus without complication, without long-term current use of insulin (CMS/HCC) (HCC)- Primary Hypothyroidism, unspecified type Degenerative disc disease, lumbar Iron deficiency anemia, unspecified iron deficiency anemia type Primary hypertension Unspecified essential hypertension History of tobacco use Personal history of tobacco use, presenting hazards to health Encounter for screening mammogram for malignant neoplasm of breast Murmur, cardiac Undiagnosed cardiac murmurs Bilateral foot pain [facility] Diagnosis History of tobacco use Personal history of tobacco use, presenting hazards to health documented in [facility]* Diagnosis Murmur, cardiac Undiagnosed cardiac murmurs documented in this [facility]* Diagnosis Hypothyroidism, unspecified type documented in this encounter [facility]* Diagnosis Encounter for screening mammogram for malignant neoplasm of breast documented in this encounter [facility]* Diagnosis Preoperative clearance- Primary Unspecified pre-operative examination Type 2 diabetes mellitus without complication, without long-term current use of insulin (CMS/HCC) (HCC) Primary hypertension Unspecified essential hypertension documented in this [facility]* Diagnosis Preoperative clearance- Primary Unspecified pre-operative examination Type 2 diabetes mellitus without complication, without long-term current use of insulin (CMS/HCC) (HCC) Primary hypertension Unspecified essential hypertension documented in this encounter [facility]* Diagnosis Type 2 diabetes mellitus without complication, without long-term current use of insulin (CMS/HCC) (HCC)- Primary Hereditary hemochromatosis (HCC) Hereditary hemochromatosis Primary hypertension Unspecified essential hypertension Routine general medical examination at health care facility- Primary Routine general medical examination at a health care facility Type 2 diabetes mellitus without complication, without long-term current use of insulin (CMS/HCC) (HCC) Primary hypertension Unspecified essential hypertension Hereditary hemochromatosis (HCC) Hereditary hemochromatosis Hypothyroidism, unspecified type Immunization due Hereditary hemochromatosis (HCC)- Primary Hereditary hemochromatosis Primary hypertension Unspecified essential hypertension Type 2 diabetes mellitus without complication, without long-term current use of insulin (CMS/HCC) (HCC) Bilateral foot pain Mass of joint of right wrist Other specified hypothyroidism Type 2 diabetes mellitus without complication, without long-term current use of insulin (CMS/HCC) (HCC)- Primary Hereditary hemochromatosis (HCC) Hereditary hemochromatosis Swelling of both lower extremities Bilateral foot pain Primary hypertension Unspecified essential hypertension Left buttock pain- Primary Unspecified myalgia and myositis Bilateral foot pain Colon cancer screening Special screening for malignant neoplasms, colon Type 2 diabetes mellitus without complication, without long-term current use of insulin (CMS/HCC) (HCC)- Primary Hypothyroidism, unspecified type Degenerative disc disease, lumbar Iron deficiency anemia, unspecified iron deficiency anemia type Primary hypertension Unspecified essential hypertension History of tobacco use Personal history of tobacco use, presenting hazards to health Encounter for screening mammogram for malignant neoplasm of breast Murmur, cardiac Undiagnosed cardiac murmurs Bilateral foot pain Preoperative clearance- Primary Unspecified pre-operative examination Type 2 diabetes mellitus without complication, without long-term current use of insulin (CMS/HCC) (HCC) Primary hypertension Unspecified essential hypertension Primary hypertension Unspecified essential hypertension documented in this [facility]* Diagnosis Type 2 diabetes mellitus without complication, without long-term current use of insulin (CMS/HCC) (HCC)- Primary Hereditary hemochromatosis (HCC) Hereditary hemochromatosis Primary hypertension Unspecified essential hypertension Routine general medical examination at health care facility- Primary Routine general medical examination at a health care facility Type 2 diabetes mellitus without complication, without long-term current use of insulin (CMS/HCC) (HCC) Primary hypertension Unspecified essential hypertension Hereditary hemochromatosis (HCC) Hereditary hemochromatosis Hypothyroidism, unspecified type Immunization due Hereditary hemochromatosis (HCC)- Primary Hereditary hemochromatosis Primary hypertension Unspecified essential hypertension Type 2 diabetes mellitus without complication, without long-term current use of insulin (CMS/HCC) (HCC) Bilateral foot pain Mass of joint of right wrist Other specified hypothyroidism Type 2 diabetes mellitus without complication, without long-term current use of insulin (CMS/HCC) (HCC)- Primary Hereditary hemochromatosis (HCC) Hereditary hemochromatosis Swelling of both lower extremities Bilateral foot pain Primary hypertension Unspecified essential hypertension Left buttock pain- Primary Unspecified myalgia and myositis Bilateral foot pain Colon cancer screening Special screening for malignant neoplasms, colon Type 2 diabetes mellitus without complication, without long-term current use of insulin (CMS/HCC) (HCC)- Primary Hypothyroidism, unspecified type Degenerative disc disease, lumbar Iron deficiency anemia, unspecified iron deficiency anemia type Primary hypertension Unspecified essential hypertension History of tobacco use Personal history of tobacco use, presenting hazards to health Encounter for screening mammogram for malignant neoplasm of breast Murmur, cardiac Undiagnosed cardiac murmurs Bilateral foot pain Preoperative clearance- Primary Unspecified pre-operative examination Type 2 diabetes mellitus without complication, without long-term current use of insulin (CMS/HCC) (HCC) Primary hypertension Unspecified essential hypertension Medicare annual wellness visit, subsequent- Primary Primary hypertension Unspecified essential hypertension Gastroesophageal reflux disease without esophagitis Esophageal reflux Hereditary hemochromatosis (HCC) Hereditary hemochromatosis Acquired hypothyroidism Unspecified hypothyroidism Type 2 diabetes mellitus without complication, without long-term current use of insulin (CMS/HCC) (HCC) Pure hypercholesterolemia Immunization due documented in this [facility]* Diagnosis Type 2 diabetes mellitus without complication, without long-term current use of insulin (CMS/HCC) (HCC)- Primary Hereditary hemochromatosis (HCC) Hereditary hemochromatosis Primary hypertension Unspecified essential hypertension Routine general medical examination at health care facility- Primary Routine general medical examination at a health care facility Type 2 diabetes mellitus without complication, without long-term current use of insulin (CMS/HCC) (HCC) Primary hypertension Unspecified essential hypertension Hereditary hemochromatosis (HCC) Hereditary hemochromatosis Hypothyroidism, unspecified type Immunization due Hereditary hemochromatosis (HCC)- Primary Hereditary hemochromatosis Primary hypertension Unspecified essential hypertension Type 2 diabetes mellitus without complication, without long-term current use of insulin (CMS/HCC) (HCC) Bilateral foot pain Mass of joint of right wrist Other specified hypothyroidism Type 2 diabetes mellitus without complication, without long-term current use of insulin (CMS/HCC) (HCC)- Primary Hereditary hemochromatosis (HCC) Hereditary hemochromatosis Swelling of both lower extremities Bilateral foot pain Primary hypertension Unspecified essential hypertension Left buttock pain- Primary Unspecified myalgia and myositis Bilateral foot pain Colon cancer screening Special screening for malignant neoplasms, colon Type 2 diabetes mellitus without complication, without long-term current use of insulin (CMS/HCC) (HCC)- Primary Hypothyroidism, unspecified type Degenerative disc disease, lumbar Iron deficiency anemia, unspecified iron deficiency anemia type Primary hypertension Unspecified essential hypertension History of tobacco use Personal history of tobacco use, presenting hazards to health Encounter for screening mammogram for malignant neoplasm of breast Murmur, cardiac Undiagnosed cardiac murmurs Bilateral foot pain Preoperative clearance- Primary Unspecified pre-operative examination Type 2 diabetes mellitus without complication, without long-term current use of insulin (CMS/HCC) (HCC) Primary hypertension Unspecified essential hypertension Medicare annual wellness visit, subsequent- Primary Primary hypertension Unspecified essential hypertension Gastroesophageal reflux disease without esophagitis Esophageal reflux Hereditary hemochromatosis (HCC) Hereditary hemochromatosis Acquired hypothyroidism Unspecified hypothyroidism Type 2 diabetes mellitus without complication, without long-term current use of insulin (CMS/HCC) (HCC) Pure hypercholesterolemia Immunization due Acute pain of right knee- Primary documented in this encounter [facility]* Diagnosis Type 2 diabetes mellitus without complication, without long-term current use of insulin (CMS/HCC) (HCC)- Primary Hereditary hemochromatosis (HCC) Hereditary hemochromatosis Primary hypertension Unspecified essential hypertension Routine general medical examination at health care facility- Primary Routine general medical examination at a health care facility Type 2 diabetes mellitus without complication, without long-term current use of insulin (CMS/HCC) (HCC) Primary hypertension Unspecified essential hypertension Hereditary hemochromatosis (HCC) Hereditary hemochromatosis Hypothyroidism, unspecified type Immunization due Hereditary hemochromatosis (HCC)- Primary Hereditary hemochromatosis Primary hypertension Unspecified essential hypertension Type 2 diabetes mellitus without complication, without long-term current use of insulin (CMS/HCC) (HCC) Bilateral foot pain Mass of joint of right wrist Other specified hypothyroidism Type 2 diabetes mellitus without complication, without long-term current use of insulin (CMS/HCC) (HCC)- Primary Hereditary hemochromatosis (HCC) Hereditary hemochromatosis Swelling of both lower extremities Bilateral foot pain Primary hypertension Unspecified essential hypertension Left buttock pain- Primary Unspecified myalgia and myositis Bilateral foot pain Colon cancer screening Special screening for malignant neoplasms, colon Type 2 diabetes mellitus without complication, without long-term current use of insulin (CMS/HCC) (HCC)- Primary Hypothyroidism, unspecified type Degenerative disc disease, lumbar Iron deficiency anemia, unspecified iron deficiency anemia type Primary hypertension Unspecified essential hypertension History of tobacco use Personal history of tobacco use, presenting hazards to health Encounter for screening mammogram for malignant neoplasm of breast Murmur, cardiac Undiagnosed cardiac murmurs Bilateral foot pain Preoperative clearance- Primary Unspecified pre-operative examination Type 2 diabetes mellitus without complication, without long-term current use of insulin (CMS/HCC) (HCC) Primary hypertension Unspecified essential hypertension Medicare annual wellness visit, subsequent- Primary Primary hypertension Unspecified essential hypertension Gastroesophageal reflux disease without esophagitis Esophageal reflux Hereditary hemochromatosis (HCC) Hereditary hemochromatosis Acquired hypothyroidism Unspecified hypothyroidism Type 2 diabetes mellitus without complication, without long-term current use of insulin (CMS/HCC) (HCC) Pure hypercholesterolemia Immunization due Acute pain of right knee- Primary Gastroesophageal reflux disease without esophagitis Esophageal reflux Vitamin D deficiency documented in this encounter [facility]* Diagnosis Type 2 diabetes mellitus without complication, without long-term current use of insulin (CMS/HCC) (HCC)- Primary Hereditary hemochromatosis (HCC) Hereditary hemochromatosis Primary hypertension Unspecified essential hypertension Routine general medical examination at health care facility- Primary Routine general medical examination at a health care facility Type 2 diabetes mellitus without complication, without long-term current use of insulin (CMS/HCC) (HCC) Primary hypertension Unspecified essential hypertension Hereditary hemochromatosis (HCC) Hereditary hemochromatosis Hypothyroidism, unspecified type Immunization due Hereditary hemochromatosis (HCC)- Primary Hereditary hemochromatosis Primary hypertension Unspecified essential hypertension Type 2 diabetes mellitus without complication, without long-term current use of insulin (CMS/HCC) (HCC) Bilateral foot pain Mass of joint of right wrist Other specified hypothyroidism Type 2 diabetes mellitus without complication, without long-term current use of insulin (CMS/HCC) (HCC)- Primary Hereditary hemochromatosis (HCC) Hereditary hemochromatosis Swelling of both lower extremities Bilateral foot pain Primary hypertension Unspecified essential hypertension Left buttock pain- Primary Unspecified myalgia and myositis Bilateral foot pain Colon cancer screening Special screening for malignant neoplasms, colon Type 2 diabetes mellitus without complication, without long-term current use of insulin (CMS/HCC) (HCC)- Primary Hypothyroidism, unspecified type Degenerative disc disease, lumbar Iron deficiency anemia, unspecified iron deficiency anemia type Primary hypertension Unspecified essential hypertension History of tobacco use Personal history of tobacco use, presenting hazards to health Encounter for screening mammogram for malignant neoplasm of breast Murmur, cardiac Undiagnosed cardiac murmurs Bilateral foot pain Preoperative clearance- Primary Unspecified pre-operative examination Type 2 diabetes mellitus without complication, without long-term current use of insulin (CMS/HCC) (HCC) Primary hypertension Unspecified essential hypertension Medicare annual wellness visit, subsequent- Primary Primary hypertension Unspecified essential hypertension Gastroesophageal reflux disease without esophagitis Esophageal reflux Hereditary hemochromatosis (HCC) Hereditary hemochromatosis Acquired hypothyroidism Unspecified hypothyroidism Type 2 diabetes mellitus without complication, without long-term current use of insulin (CMS/HCC) (HCC) Pure hypercholesterolemia Immunization due Acute pain of right knee- Primary Osteoarthritis of right knee, unspecified osteoarthritis type- Primary Pure hypercholesterolemia [facility] Diagnosis Type 2 diabetes mellitus without complication, without long-term current use of insulin (CMS/HCC) (HCC)- Primary Hereditary hemochromatosis (HCC) Hereditary hemochromatosis Primary hypertension Unspecified essential hypertension Routine general medical examination at health care facility- Primary Routine general medical examination at a health care facility Type 2 diabetes mellitus without complication, without long-term current use of insulin (CMS/HCC) (HCC) Primary hypertension Unspecified essential hypertension Hereditary hemochromatosis (HCC) Hereditary hemochromatosis Hypothyroidism, unspecified type Immunization due Hereditary hemochromatosis (HCC)- Primary Hereditary hemochromatosis Primary hypertension Unspecified essential hypertension Type 2 diabetes mellitus without complication, without long-term current use of insulin (CMS/HCC) (HCC) Bilateral foot pain Mass of joint of right wrist Other specified hypothyroidism Type 2 diabetes mellitus without complication, without long-term current use of insulin (CMS/HCC) (HCC)- Primary Hereditary hemochromatosis (HCC) Hereditary hemochromatosis Swelling of both lower extremities Bilateral foot pain Primary hypertension Unspecified essential hypertension Left buttock pain- Primary Unspecified myalgia and myositis Bilateral foot pain Colon cancer screening Special screening for malignant neoplasms, colon Type 2 diabetes mellitus without complication, without long-term current use of insulin (CMS/HCC) (HCC)- Primary Hypothyroidism, unspecified type Degenerative disc disease, lumbar Iron deficiency anemia, unspecified iron deficiency anemia type Primary hypertension Unspecified essential hypertension History of tobacco use Personal history of tobacco use, presenting hazards to health Encounter for screening mammogram for malignant neoplasm of breast Murmur, cardiac Undiagnosed cardiac murmurs Bilateral foot pain Preoperative clearance- Primary Unspecified pre-operative examination Type 2 diabetes mellitus without complication, without long-term current use of insulin (CMS/HCC) (HCC) Primary hypertension Unspecified essential hypertension Medicare annual wellness visit, subsequent- Primary Primary hypertension Unspecified essential hypertension Gastroesophageal reflux disease without esophagitis Esophageal reflux Hereditary hemochromatosis (HCC) Hereditary hemochromatosis Acquired hypothyroidism Unspecified hypothyroidism Type 2 diabetes mellitus without complication, without long-term current use of insulin (CMS/HCC) (HCC) Pure hypercholesterolemia Immunization due Acute pain of right knee- Primary Osteoarthritis of right knee, unspecified osteoarthritis type- Primary Pure hypercholesterolemia [facility] Diagnosis Type 2 diabetes mellitus without complication, without long-term current use of insulin (CMS/HCC) (HCC)- Primary Hereditary hemochromatosis (HCC) Hereditary hemochromatosis Primary hypertension Unspecified essential hypertension Routine general medical examination at health care facility- Primary Routine general medical examination at a health care facility Type 2 diabetes mellitus without complication, without long-term current use of insulin (CMS/HCC) (HCC) Primary hypertension Unspecified essential hypertension Hereditary hemochromatosis (HCC) Hereditary hemochromatosis Hypothyroidism, unspecified type Immunization due Hereditary hemochromatosis (HCC)- Primary Hereditary hemochromatosis Primary hypertension Unspecified essential hypertension Type 2 diabetes mellitus without complication, without long-term current use of insulin (CMS/HCC) (HCC) Bilateral foot pain Mass of joint of right wrist Other specified hypothyroidism Type 2 diabetes mellitus without complication, without long-term current use of insulin (CMS/HCC) (HCC)- Primary Hereditary hemochromatosis (HCC) Hereditary hemochromatosis Swelling of both lower extremities Bilateral foot pain Primary hypertension Unspecified essential hypertension Left buttock pain- Primary Unspecified myalgia and myositis Bilateral foot pain Colon cancer screening Special screening for malignant neoplasms, colon Type 2 diabetes mellitus without complication, without long-term current use of insulin (CMS/HCC) (HCC)- Primary Hypothyroidism, unspecified type Degenerative disc disease, lumbar Iron deficiency anemia, unspecified iron deficiency anemia type Primary hypertension Unspecified essential hypertension History of tobacco use Personal history of tobacco use, presenting hazards to health Encounter for screening mammogram for malignant neoplasm of breast Murmur, cardiac Undiagnosed cardiac murmurs Bilateral foot pain Preoperative clearance- Primary Unspecified pre-operative examination Type 2 diabetes mellitus without complication, without long-term current use of insulin (CMS/HCC) (HCC) Primary hypertension Unspecified essential hypertension Medicare annual wellness visit, subsequent- Primary Primary hypertension Unspecified essential hypertension Gastroesophageal reflux disease without esophagitis Esophageal reflux Hereditary hemochromatosis (HCC) Hereditary hemochromatosis Acquired hypothyroidism Unspecified hypothyroidism Type 2 diabetes mellitus without complication, without long-term current use of insulin (CMS/HCC) (HCC) Pure hypercholesterolemia Immunization due Acute pain of right knee- Primary Osteoarthritis of right knee, unspecified osteoarthritis type- Primary Pure hypercholesterolemia Post-nasal drainage- Primary Other diseases of nasal cavity and sinuses [facility] Diagnosis Type 2 diabetes mellitus without complication, without long-term current use of insulin (CMS/HCC) (HCC)- Primary Hereditary hemochromatosis (HCC) Hereditary hemochromatosis Primary hypertension Unspecified essential hypertension Routine general medical examination at health care facility- Primary Routine general medical examination at a health care facility Type 2 diabetes mellitus without complication, without long-term current use of insulin (CMS/HCC) (HCC) Primary hypertension Unspecified essential hypertension Hereditary hemochromatosis (HCC) Hereditary hemochromatosis Hypothyroidism, unspecified type Immunization due Hereditary hemochromatosis (HCC)- Primary Hereditary hemochromatosis Primary hypertension Unspecified essential hypertension Type 2 diabetes mellitus without complication, without long-term current use of insulin (CMS/HCC) (HCC) Bilateral foot pain Mass of joint of right wrist Other specified hypothyroidism Type 2 diabetes mellitus without complication, without long-term current use of insulin (CMS/HCC) (HCC)- Primary Hereditary hemochromatosis (HCC) Hereditary hemochromatosis Swelling of both lower extremities Bilateral foot pain Primary hypertension Unspecified essential hypertension Left buttock pain- Primary Unspecified myalgia and myositis Bilateral foot pain Colon cancer screening Special screening for malignant neoplasms, colon Type 2 diabetes mellitus without complication, without long-term current use of insulin (CMS/HCC) (HCC)- Primary Hypothyroidism, unspecified type Degenerative disc disease, lumbar Iron deficiency anemia, unspecified iron deficiency anemia type Primary hypertension Unspecified essential hypertension History of tobacco use Personal history of tobacco use, presenting hazards to health Encounter for screening mammogram for malignant neoplasm of breast Murmur, cardiac Undiagnosed cardiac murmurs Bilateral foot pain Preoperative clearance- Primary Unspecified pre-operative examination Type 2 diabetes mellitus without complication, without long-term current use of insulin (CMS/HCC) (HCC) Primary hypertension Unspecified essential hypertension Medicare annual wellness visit, subsequent- Primary Primary hypertension Unspecified essential hypertension Gastroesophageal reflux disease without esophagitis Esophageal reflux Hereditary hemochromatosis (HCC) Hereditary hemochromatosis Acquired hypothyroidism Unspecified hypothyroidism Type 2 diabetes mellitus without complication, without long-term current use of insulin (CMS/HCC) (HCC) Pure hypercholesterolemia Immunization due Acute pain of right knee- Primary Osteoarthritis of right knee, unspecified osteoarthritis type- Primary Pure hypercholesterolemia Post-nasal drainage Other diseases of nasal cavity and sinuses Primary hypertension Unspecified essential hypertension [facility] Diagnosis Type 2 diabetes mellitus without complication, without long-term current use of insulin (CMS/HCC) (HCC)- Primary Hereditary hemochromatosis (HCC) Hereditary hemochromatosis Primary hypertension Unspecified essential hypertension Routine general medical examination at health care facility- Primary Routine general medical examination at a health care facility Type 2 diabetes mellitus without complication, without long-term current use of insulin (CMS/HCC) (HCC) Primary hypertension Unspecified essential hypertension Hereditary hemochromatosis (HCC) Hereditary hemochromatosis Hypothyroidism, unspecified type Immunization due Hereditary hemochromatosis (HCC)- Primary Hereditary hemochromatosis Primary hypertension Unspecified essential hypertension Type 2 diabetes mellitus without complication, without long-term current use of insulin (CMS/HCC) (HCC) Bilateral foot pain Mass of joint of right wrist Other specified hypothyroidism Type 2 diabetes mellitus without complication, without long-term current use of insulin (CMS/HCC) (HCC)- Primary Hereditary hemochromatosis (HCC) Hereditary hemochromatosis Swelling of both lower extremities Bilateral foot pain Primary hypertension Unspecified essential hypertension Left buttock pain- Primary Unspecified myalgia and myositis Bilateral foot pain Colon cancer screening Special screening for malignant neoplasms, colon Type 2 diabetes mellitus without complication, without long-term current use of insulin (CMS/HCC) (HCC)- Primary Hypothyroidism, unspecified type Degenerative disc disease, lumbar Iron deficiency anemia, unspecified iron deficiency anemia type Primary hypertension Unspecified essential hypertension History of tobacco use Personal history of tobacco use, presenting hazards to health Encounter for screening mammogram for malignant neoplasm of breast Murmur, cardiac Undiagnosed cardiac murmurs Bilateral foot pain Preoperative clearance- Primary Unspecified pre-operative examination Type 2 diabetes mellitus without complication, without long-term current use of insulin (CMS/HCC) (HCC) Primary hypertension Unspecified essential hypertension Medicare annual wellness visit, subsequent- Primary Primary hypertension Unspecified essential hypertension Gastroesophageal reflux disease without esophagitis Esophageal reflux Hereditary hemochromatosis (HCC) Hereditary hemochromatosis Acquired hypothyroidism Unspecified hypothyroidism Type 2 diabetes mellitus without complication, without long-term current use of insulin (CMS/HCC) (HCC) Pure hypercholesterolemia Immunization due Acute pain of right knee- Primary Osteoarthritis of right knee, unspecified osteoarthritis type- Primary Pure hypercholesterolemia Pure hypercholesterolemia documented [facility] Diagnosis Type 2 diabetes mellitus without complication, without long-term current use of insulin (HCC)- Primary Hereditary hemochromatosis (HCC) Hereditary hemochromatosis Primary hypertension Unspecified essential hypertension Routine general medical examination at health care facility- Primary Routine general medical examination at a health care facility Type 2 diabetes mellitus without complication, without long-term current use of insulin (HCC) Primary hypertension Unspecified essential hypertension Hereditary hemochromatosis (HCC) Hereditary hemochromatosis Hypothyroidism, unspecified type Immunization due Hereditary hemochromatosis (HCC)- Primary Hereditary hemochromatosis Primary hypertension Unspecified essential hypertension Type 2 diabetes mellitus without complication, without long-term current use of insulin (HCC) Bilateral foot pain Mass of joint of right wrist Other specified hypothyroidism Type 2 diabetes mellitus without complication, without long-term current use of insulin (HCC)- Primary Hereditary hemochromatosis (HCC) Hereditary hemochromatosis Swelling of both lower extremities Bilateral foot pain Primary hypertension Unspecified essential hypertension Left buttock pain- Primary Unspecified myalgia and myositis Bilateral foot pain Colon cancer screening Special screening for malignant neoplasms, colon Type 2 diabetes mellitus without complication, without long-term current use of insulin (HCC)- Primary Hypothyroidism, unspecified type Degenerative disc disease, lumbar Iron deficiency anemia, unspecified iron deficiency anemia type Primary hypertension Unspecified essential hypertension History of tobacco use Personal history of tobacco use, presenting hazards to health Encounter for screening mammogram for malignant neoplasm of breast Murmur, cardiac Undiagnosed cardiac murmurs Bilateral foot pain Preoperative clearance- Primary Unspecified pre-operative examination Type 2 diabetes mellitus without complication, without long-term current use of insulin (HCC) Primary hypertension Unspecified essential hypertension Medicare annual wellness visit, subsequent- Primary Primary hypertension Unspecified essential hypertension Gastroesophageal reflux disease without esophagitis Esophageal reflux Hereditary hemochromatosis (HCC) Hereditary hemochromatosis Acquired hypothyroidism Unspecified hypothyroidism Type 2 diabetes mellitus without complication, without long-term current use of insulin (HCC) Pure hypercholesterolemia Immunization due Acute pain of right knee- Primary Osteoarthritis of right knee, unspecified osteoarthritis type- Primary Pure hypercholesterolemia Pure hypercholesterolemia documented in [facility] Diagnosis Type 2 diabetes mellitus without complication, without long-term current use of insulin (HCC)- Primary Hereditary hemochromatosis (HCC) Hereditary hemochromatosis Primary hypertension Unspecified essential hypertension Routine general medical examination at health care facility- Primary Routine general medical examination at a health care facility Type 2 diabetes mellitus without complication, without long-term current use of insulin (HCC) Primary hypertension Unspecified essential hypertension Hereditary hemochromatosis (HCC) Hereditary hemochromatosis Hypothyroidism, unspecified type Immunization due Hereditary hemochromatosis (HCC)- Primary Hereditary hemochromatosis Primary hypertension Unspecified essential hypertension Type 2 diabetes mellitus without complication, without long-term current use of insulin (HCC) Bilateral foot pain Mass of joint of right wrist Other specified hypothyroidism Type 2 diabetes mellitus without complication, without long-term current use of insulin (HCC)- Primary Hereditary hemochromatosis (HCC) Hereditary hemochromatosis Swelling of both lower extremities Bilateral foot pain Primary hypertension Unspecified essential hypertension Left buttock pain- Primary Unspecified myalgia and myositis Bilateral foot pain Colon cancer screening Special screening for malignant neoplasms, colon Type 2 diabetes mellitus without complication, without long-term current use of insulin (HCC)- Primary Hypothyroidism, unspecified type Degenerative disc disease, lumbar Iron deficiency anemia, unspecified iron deficiency anemia type Primary hypertension Unspecified essential hypertension History of tobacco use Personal history of tobacco use, presenting hazards to health Encounter for screening mammogram for malignant neoplasm of breast Murmur, cardiac Undiagnosed cardiac murmurs Bilateral foot pain Preoperative clearance- Primary Unspecified pre-operative examination Type 2 diabetes mellitus without complication, without long-term current use of insulin (HCC) Primary hypertension Unspecified essential hypertension Medicare annual wellness visit, subsequent- Primary Primary hypertension Unspecified essential hypertension Gastroesophageal reflux disease without esophagitis Esophageal reflux Hereditary hemochromatosis (HCC) Hereditary hemochromatosis Acquired hypothyroidism Unspecified hypothyroidism Type 2 diabetes mellitus without complication, without long-term current use of insulin (HCC) Pure hypercholesterolemia Immunization due Acute pain of right knee- Primary Osteoarthritis of right knee, unspecified osteoarthritis type- Primary Pure hypercholesterolemia Hypothyroidism, unspecified type documented [facility] Diagnosis Type 2 diabetes mellitus without complication, without long-term current use of insulin (HCC)- Primary Hereditary hemochromatosis (HCC) Hereditary hemochromatosis Primary hypertension Unspecified essential hypertension Routine general medical examination at health care facility- Primary Routine general medical examination at a health care facility Type 2 diabetes mellitus without complication, without long-term current use of insulin (HCC) Primary hypertension Unspecified essential hypertension Hereditary hemochromatosis (HCC) Hereditary hemochromatosis Hypothyroidism, unspecified type Immunization due Hereditary hemochromatosis (HCC)- Primary Hereditary hemochromatosis Primary hypertension Unspecified essential hypertension Type 2 diabetes mellitus without complication, without long-term current use of insulin (HCC) Bilateral foot pain Mass of joint of right wrist Other specified hypothyroidism Type 2 diabetes mellitus without complication, without long-term current use of insulin (HCC)- Primary Hereditary hemochromatosis (HCC) Hereditary hemochromatosis Swelling of both lower extremities Bilateral foot pain Primary hypertension Unspecified essential hypertension Left buttock pain- Primary Unspecified myalgia and myositis Bilateral foot pain Colon cancer screening Special screening for malignant neoplasms, colon Type 2 diabetes mellitus without complication, without long-term current use of insulin (HCC)- Primary Hypothyroidism, unspecified type Degenerative disc disease, lumbar Iron deficiency anemia, unspecified iron deficiency anemia type Primary hypertension Unspecified essential hypertension History of tobacco use Personal history of tobacco use, presenting hazards to health Encounter for screening mammogram for malignant neoplasm of breast Murmur, cardiac Undiagnosed cardiac murmurs Bilateral foot pain Preoperative clearance- Primary Unspecified pre-operative examination Type 2 diabetes mellitus without complication, without long-term current use of insulin (HCC) Primary hypertension Unspecified essential hypertension Medicare annual wellness visit, subsequent- Primary Primary hypertension Unspecified essential hypertension Gastroesophageal reflux disease without esophagitis Esophageal reflux Hereditary hemochromatosis (HCC) Hereditary hemochromatosis Acquired hypothyroidism Unspecified hypothyroidism Type 2 diabetes mellitus without complication, without long-term current use of insulin (HCC) Pure hypercholesterolemia Immunization due Acute pain of right knee- Primary Osteoarthritis of right knee, unspecified osteoarthritis type- Primary Pure hypercholesterolemia Gastroesophageal reflux disease without esophagitis Esophageal reflux Swelling of both lower extremities documented in this [facility] Diagnosis Type 2 diabetes mellitus without complication, without long-term current use of insulin (HCC)- Primary Hereditary hemochromatosis (HCC) Hereditary hemochromatosis Primary hypertension Unspecified essential hypertension Routine general medical examination at health care facility- Primary Routine general medical examination at a health care facility Type 2 diabetes mellitus without complication, without long-term current use of insulin (HCC) Primary hypertension Unspecified essential hypertension Hereditary hemochromatosis (HCC) Hereditary hemochromatosis Hypothyroidism, unspecified type Immunization due Hereditary hemochromatosis (HCC)- Primary Hereditary hemochromatosis Primary hypertension Unspecified essential hypertension Type 2 diabetes mellitus without complication, without long-term current use of insulin (HCC) Bilateral foot pain Mass of joint of right wrist Other specified hypothyroidism Type 2 diabetes mellitus without complication, without long-term current use of insulin (HCC)- Primary Hereditary hemochromatosis (HCC) Hereditary hemochromatosis Swelling of both lower extremities Bilateral foot pain Primary hypertension Unspecified essential hypertension Left buttock pain- Primary Unspecified myalgia and myositis Bilateral foot pain Colon cancer screening Special screening for malignant neoplasms, colon Type 2 diabetes mellitus without complication, without long-term current use of insulin (HCC)- Primary Hypothyroidism, unspecified type Degenerative disc disease, lumbar Iron deficiency anemia, unspecified iron deficiency anemia type Primary hypertension Unspecified essential hypertension History of tobacco use Personal history of tobacco use, presenting hazards to health Encounter for screening mammogram for malignant neoplasm of breast Murmur, cardiac Undiagnosed cardiac murmurs Bilateral foot pain Preoperative clearance- Primary Unspecified pre-operative examination Type 2 diabetes mellitus without complication, without long-term current use of insulin (HCC) Primary hypertension Unspecified essential hypertension Medicare annual wellness visit, subsequent- Primary Primary hypertension Unspecified essential hypertension Gastroesophageal reflux disease without esophagitis Esophageal reflux Hereditary hemochromatosis (HCC) Hereditary hemochromatosis Acquired hypothyroidism Unspecified hypothyroidism Type 2 diabetes mellitus without complication, without long-term current use of insulin (HCC) Pure hypercholesterolemia Immunization due Acute pain of right knee- Primary Osteoarthritis of right knee, unspecified osteoarthritis type- Primary Pure hypercholesterolemia Hypothyroidism, unspecified type documented in this encounter [facility] [place] Discharge instructions No data available for this section [facility] Progress note No data available for this section [facility] Reason for referral (narrative)* Consultation (Routine) - Pending Review Specialty Diagnoses / Procedures Referred By Moody bey Referred To Contact Orthopedic Surgery Diagnoses Mass of joint of right wrist 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 APRN - CNP [address] [place] [address] [facility] [place] [address] [place] [address] Referral ID Status Reason Start Date Expiration Date Visits Requested Visits Authorized [id number] Pending Review Specialty Services Required 06/04/2023 06/03/2024 1 1 [facility] for referral (narrative)* Consultation (Routine) - Pending Review Specialty Diagnoses / Procedures Referred By Moody bey Referred To Contact Podiatry Diagnoses Bilateral foot pain Procedures RI OFFICE/OUTPATIENT [facility] 60 MINUTES 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 APRN - CNP [address] [facility] [place] [address] Alvin Beltran, DPOlivia [address] [place] [address] Referral ID Status Reason Start Date Expiration Date Visits Requested Visits Authorized [id number] Pending Review Specialty Services Required 07/24/2023 07/23/2024 1 1 Mani Frey for referral (narrative)* Consultation (Routine) - Pending Review Specialty Diagnoses / Procedures Referred By Moody t Referred To Contact Orthopedic Surgery Diagnoses Degenerative disc disease, lumbar 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 APRN - CNP [address] [place] [address] [place] [address] Yanick Meléndez [facility] [place] [address] Referral ID Status Reason Start Date Expiration Date Visits Requested Visits Authorized [id number] Pending Review Specialty Services Required 12/29/2023 12/28/2024 1 1 Mani Frey for referral (narrative)No reason for referral information [facility] Work Phone: Summary Purpose Family History No Family History Records Found Advance Directives No Advanced Directives Records Found Advance Directive Response Recorded Date/ Time Living Will No July 01 5:51pm Power of [employer] Representative No July 01, 2023 5:51pm Latest Code Status on File Code Status Date Activated Date Inactivated Comments Full Code 09/03/2023 7:14 AM 09/03/2023 1:22 PM Latest Code Status on File Code Status Date Activated Date Inactivated Comments Full Code 09/03/2023 7:14 AM 09/03/2023 1:22 PM Date Activated Date Inactivated Comments 09/03/2023 7:14 AM 09/03/2023 1:22 PM Date Activated Date Inactivated Comments 09/03/2023 7:14 AM 09/03/2023 1:22 PM Advance Directive Response Recorded Date/ Time Living Will No December 31, 2023 2:55pm Do you have a Healthcare Power of [employer] Representative? No December 31, 2023 2:55pm Chief Complaint and Reason for Visit Chief Complaint VERTIGO/SINUS CONGES TION?? nvd Reason for Visit Dehydration Nausea vomiting and diarrhea Orthostasis Chief Complaint Admit Date thoracic spine May 13, 2024 1:20pm RM 2 May 13, 2024 1:46pm SPOND. RX HERE VERTIGO/RX HERE May 312024 9:00am THORACIC SPINE July 02, 2024 1 1:24am room 1 July 02, 2024 1 1:33am RIGHT KNEE July 07, 2024 10:48am RIGHT KNEE July 28, 2024 10:4 8am CERVICAL SPINE July 30, 2024 10:4 6am Xray room 8 July 30, 2024 11:1 1am Pain August 30, 2024 1:54 pm Reason for Visit Admit Date S/P lumbar fusion May 13, 2024 1:20pm S/P lumbar fusion July 02, 2024 1 1:24am Osteoarthritis of right knee July 072024 10:48am Osteoarthritis of right knee July 28, 2024 10:48am Cervical myelopathy July 30, 2024 10:4 6am Reason for Referral Specialty Diagnoses / Procedures Referred By Erumac t Referred To Contact Cardiology Diagnoses Murmur, cardiac Procedures Transthoracic echocardiogram (TTE) complete with contrast, bubble, strain, and 3D PRN RI ECHO TTHRC R-T 2D W/WOM-MODE COMPL SPEC&COLR D RI TTE W OR WO FOL WCON,DOPPLER Karrieenthal, Sedrick, SUPERVIS[employer] - TECHNICAL SUPPORT ANALYST [address] [facility] [place] [address] [place] [address] Referral ID Status Reason Start Date Expiration Date V isits Requested Visits Authorized [id number] Pending Review 01/21/2024 01/20/2025 1 1 Specialty Diagnoses / Procedures Referred By Contac t Referred To Contact Radiology Diagnoses History of tobacco use Procedures CT lung screening low dose Bridenthal, Sedrick, SUPERVIS[employer] - TECHNICAL SUPPORT ANALYST [address] [facility] [place] [address] [place] [address] Referral ID Status Reason Start Date Expiration Date V isits Requested Visits Authorized [id number] Pending Review 01/21/2024 01/20/2025 1 1 Specialty Diagnoses / Procedures Referred By Moody t Referred To Contact Occupational Therapy Diagnoses Mass of joint of right wrist S/P excision of ganglion cyst Procedures RI OFFICE/OUTPATIENT NEW HIGH MDM 60 MINUTES Nadya Harkins PA-C 1 [facility] [address] [place] [address] Referral ID Status Reason Start Date Expiration Date Visits Requested Visits Authorized [id number] Pending Review Eval and Treat 10/14/2023 10/13/2024 99 99 Additional Source Comments Reason for Visit (unrecogniz ed section and content) Reason Onset Date Comments New Patient 03/21/2023 Reason Comments New Patient Health Maintenance AWV-needs eipkuzsuzQELZ-wirdlbRwolt-qihdgmWpbka-declinedPHQ-completedHep A-kjpnwatyJihf-fmstzfhtMkdse-completed IricVkfxvh-gwpefjghZhfkqf-brlnkgqtLvp-completed [facility] Reason Comments Medicare Annual Wellness Visit Initial Health Maintenance BXO-HaywsBBSA-wqtpcd edColon-completed in [place]([facility] ago)Pneumo-discuss with providerDM foot-pendedDM dental-done a year agoMelissastisidro-stated it was completed-[place] [address]Wfwq-qdszwxpuBWC-zbtxxaicWvt-qhjisvztx at [facility] Reason Comments Cyst Bilateral-but right is the one that is painful Reason Comments Medication Check Foot Pain Pended referral Reason Comments New Patient Right wrist mass Specialty Diagnoses / Procedures Referred By Moody bey Referred To Contact Orthopedic Surgery Diagnoses Mass of joint of right wrist 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, SUPERVISOR [employer] - TECHNICAL SUPPORT ANALYST [address] [facility] [place] [address] [place] [address] [facility] [address] [place] [address] Referral ID Status Reason Start Date Expiration Date V isits Requested Visits Authorized [id number] Closed Specialty Services Required 06/04/2023 06/03/2024 1 1 Reason Onset Date Comments Surgery Scheduling 08/05/2023 Surgery Sched uling Reason Onset Date Comments appt with Dr. Alvin Beltran, DPM<9>on 2 :45 08/19/2023 Specialty Diagnoses / Procedures Referred By Moody bey Referred To Contact Diagnoses Ganglion, right wrist Ganglion, right wrist [M67.431] Procedures RI EXCISION GANGLION WRIST DORSAL/VOLAR PRIMARY RIGHT VOLAR RADIAL WRIST MASS EXCISION Deric, Austin Martinez MD [address] [facility] [address] [place] [address] [facility] [address] [place] [address] Referral ID Status Reason Start Date Expiration Date Visits Re quested Visits Authorized [id number] 1 1 Reason Comments Post-op Problem Bandaging is coming off of right hand from surgery. Is unable to re-wrap, there is also a plaster casting under the bandaging that is poking into her hand. Reason Onset Date Comments Post-op Problem 09/04/2023 Reason Comments Post-op IPO DOS 09/03/23 Righ t volar radial Wrist mass excision Reason Comments Post-op DOS 09/03/2023- Mass excision from Right volar wrist Reason Comments Medication Check Reason Comments Post-op DOS 09/03/23 right vo lar radial Wrist mass excision Reason Comments questions Blood Work Labs already ordered Reason Onset Date Comments Results 12/03/2023 Reason Onset Date Comments Med Refill 12/09/2023 Reason Onset Date Comments FYI 10/22/2023 Reason Onset Date Comments Results 12/24/2023 Reason Comments Med Refill Reason Onset Date Comments Results 12/24/2023 Reason Onset Date Comments Results 01/15/2024 Reason Comments Diabetes Specialty Diagnoses / Procedures Referred By Moody t Referred To Contact Radiology Diagnoses History of tobacco use Procedures CT lung screening low dose Bridenthal, Sedrick, SUPERVISOR [employer] - TECHNICAL SUPPORT ANALYST [address] [facility] [place] [address] [place] [address] Referral ID Status Reason Start Date Expiration Date Visits Re quested Visits Authorized [id number] Closed 01/21/2024 01/20/2025 1 1 Specialty Diagnoses / Procedures Referred By Contac t Referred To Contact Cardiology Diagnoses Murmur, cardiac Procedures Transthoracic echocardiogram (TTE) complete with contrast, bubble, strain, and 3D PRN RI ECHO TTHRC R-T 2D W/WOM-MODE COMPL SPEC&COLR D RI TTE W OR WO FOL WCON,DOPPLER Bridenthal, Sedrick, SUPERVISOR [employer]ANGING [employer] TRIMMING - TECHNICAL SUPPORT ANALYST [address] [facility] [place] [place] [address] Referral ID Status Reason Start Date Expiration Date Visits Re quested Visits Authorized [id number] Closed 01/21/2024 01/20/2025 1 1 Reason Onset Date Comments Results 02/13/2024 Reason Comments Pre-op Exam Surgical clearance Reason Onset Date Comments Med Refill 03/25/2024 Reason Comments Medicare Annual Wellness Visit Subsequen t Blood Work Health Maintenance Tdap vaccine- agree2 nd shingles vaccine- advised to go to pharmacy Dental exam- not doneEye exam- go to [facility] [place] - will send for record Reason Onset Date Comments Knee Pain 05/24/2024 Reason Comments Knee Pain Right-started a week ago Reason Onset Date Comments Results 05/25/2024 Reason Comments Follow-up Knee Pain Reason Onset Date Comments Med Refill 09/22/2024 Reason Onset Date Comments Medication Question 09/22/2024 Care Teams (unrecognized sec tion and content) Director Of Industrial Relations Relationship Specialty Start Date End [place] [address] PCP - General Family Medicine 04/02/23 Director Of Industrial Relations Relationship Specialty Start Date End Date [facility] [place] [facility] [place] [address] PCP - General Family Medicine 04/02/23 Director Of Industrial Relations Relationship Specialty Start Date End Date [place] [place] [address] PCP - General Family Medicine 04/02/23 Director Of Industrial Relations Relationship Specialty Start Date End Date Moshe [facility] [place] [address] PCP - General Family Medicine 04/02/23 Team Status: Active Member Role Status Dates No Primary Care Physician Primary Care Provider Active Team Status: Inactive Member Role Status Dates Gerry Gray PA, PA Attending Provider Active Team Status: Inactive Member Role Status Dates Dr. Juan Jose Stallworth , DO Emergency Provider Active No Primary Care Physician Primary Care Provider Active Director Of Industrial Relations Relationship Specialty Start Date End Date Moshe Key MD [address] [place] [address] PCP - General Family Medicine 04/02/23 Director Of Industrial Relations Relationship Specialty Start Date End Date [place] [address] PCP - General Family Medicine 04/02/23 Director Of Industrial Relations Relationship Specialty Start Date End Date [place] [address] PCP - General Family Medicine 04/02/23 Director Of Industrial Relations Relationship Specialty Start Date End Date [place] [address] PCP - General Family Medicine 04/02/23 Director Of Industrial Relations Relationship Specialty Start Date End Date [place] [address] PCP - General Family Medicine 04/02/23 Director Of Industrial Relations Relationship Specialty Start Date End Date Moshe Key MD [address] [place] [address] PCP - General Family Medicine 04/02/23 Director Of Industrial Relations Relationship Specialty Start Date End Date 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 SUPERVISOR [employer]ANG[employer]MING - TECHNICAL SUPPORT ANALYST [address] [facility] [place] [place] [address] PCP - General Nurse Practitioner Family 09/03/23 Director Of Industrial Relations Relationship Specialty Start Date End Date Moshe Key MD [address] [facility] [place] [address] PCP - General Family Medicine 09/04/23 Director Of Industrial Relations Relationship Specialty Start Date End Date Moshe Key MD [address] [place] [address] PCP - General Family Medicine 09/04/23 Director Of Industrial Relations Relationship Specialty Start Date End Date Moshe Key MD [address] [facility] [place] [address] PCP - General Family Medicine 09/04/23 Director Of Industrial Relations Relationship Specialty Start Date End Date Moshe Key MD [address] [facility] [place] [address] PCP - General Family Medicine 09/04/23 Director Of Industrial Relations Relationship Specialty Start Date End Date Moshe Key MD [address] [place] [address] PCP - General Family Medicine 09/04/23 Director Of Industrial Relations Relationship Specialty Start Date End Date oMshe Key MD [address] [facility] [place] [address] PCP - General Family Medicine 09/04/23 Director Of Industrial Relations Relationship Specialty Start Date End Date Moshe Key MD [address] [facility] [place] [address] PCP - General Family Medicine 09/04/23 Director Of Industrial Relations Relationship Specialty Start Date End Date Moshe Key MD [address] [facility] [place] [address] PCP - General Family Medicine 09/04/23 Director Of Industrial Relations Relationship Specialty Start Date End Date Moshe Key MD [address] [facility] [place] [address] PCP - General Family Medicine 09/04/23 Director Of Industrial Relations Relationship Specialty Start Date End Date Moshe Key MD [address] [facility] [place] [address] PCP - General Family Medicine 09/04/23 Director Of Industrial Relations Relationship Specialty Start Date End Date Moshe Key MD [address] [facility] [place] [address] PCP - General Family Medicine 09/04/23 Director Of Industrial Relations Relationship Specialty Start Date End Date Moshe Key MD [address] [facility] [place] [address] PCP - General Family Medicine 09/04/23 Director Of Industrial Relations Relationship Specialty Start Date End Date Moshe Key MD [address] [facility] [place] [address] PCP - General Family Medicine 09/04/23 Director Of Industrial Relations Relationship Specialty Start Date End Date Moshe Key MD [address] [facility] [place] [address] PCP - General Family Medicine 09/04/23 Director Of Industrial Relations Relationship Specialty Start Date End Date Moshe Key MD [address] [facility] [place] [address] PCP - General Family Medicine 09/04/23 Director Of Industrial Relations Relationship Specialty Start Date End Date Moshe Key MD [address] [facility] [place] [address] PCP - General Family Medicine 09/04/23 Director Of Industrial Relations Relationship Specialty Start Date End Date Moshe Key MD [facility] [place] [address] PCP - General Family Medicine 09/04/23 Director Of Industrial Relations Relationship Specialty Start Date End Date Moshe Key MD [facility] [place] [address] PCP - General Family Medicine 09/04/23 Director Of Industrial Relations Relationship Specialty Start Date End Date Moshe Key MD [address] [place] [address] [place] [address] PCP - General Family Medicine 09/04/23 Director Of Industrial Relations Relationship Specialty Start Date End Date Moshe Key MD [address] [facility] [place] [address] PCP - General Family Medicine 09/04/23 Director Of Industrial Relations Relationship Specialty Start Date End Date Moshe Key MD [address] [place] [address] [place] [address] PCP - General Family Medicine 09/04/23 Director Of Industrial Relations Relationship Specialty Start Date End Date Moshe Key MD [address] [facility] [place] [address] PCP - General Family Medicine 09/04/23 Director Of Industrial Relations Relationship Specialty Start Date End Date Moshe Key MD [address] [facility] [place] [address] PCP - General Family Medicine 09/04/23 Director Of Industrial Relations Relationship Specialty Start Date End Date Moshe Key MD [address] [facility] [place] [address] PCP - General Family Medicine 09/04/23 Director Of Industrial Relations Relationship Specialty Start Date End Date Moshe Key MD [address] [facility] [place] [address] PCP - General Family Medicine 09/04/23 Director Of Industrial Relations Relationship Specialty Start Date End Date Moshe Key MD [address] [facility] [place] [address] PCP - General Family Medicine 09/04/23 Director Of Industrial Relations Relationship Specialty Start Date End Date Moshe Key MD [address] [facility] [place] [address] PCP - General Family Medicine 09/04/23 Director Of Industrial Relations Relationship Specialty Start Date End Date Moshe Key MD [address] [facility] [place] [address] PCP - General Family Medicine 09/04/23 Director Of Industrial Relations Relationship Specialty Start Date End Date Moshe Key MD [address] [facility] [place] [address] PCP - General Family Medicine 09/04/23 Director Of Industrial Relations Relationship Specialty Start Date End Date Moshe Key MD [address] [place] [address] PCP - General Family Medicine 09/04/23 Director Of Industrial Relations Relationship Specialty Start Date End Date Moshe Key MD [address] [place], [place] [address], [place] [address] PCP - General Family Medicine 09/04/23 Director Of Industrial Relations Relationship Specialty Start Date End Date Moshe Key MD [address] [place], [place] [address], [place] [address] PCP - General Family Medicine 09/04/23 Director Of Industrial Relations Relationship Specialty Start Date End Date Moshe Key MD [address] [place], [place] [address], [place] [address] PCP - General Family Medicine 09/04/23 Team Status: Active Member Role Status Dates Dr. Moshe Key MD Primary Care Provider Active Team Status: Inactive Member Role Status Dates Dr. Moshe Key MD Primary Care Provider Active Start: May 13, 2024 End: May 13, 2024 Dr. Moshe Key MD Referring Provider Active Start: May 13, 2024 End: May 13, 2024 KIZZY Hebert Attending Provider Active Star t: May 13, 2024 End: May 13, 2024 Team Status: Inactive Member Role Status Dates Dr. Moshe Key MD Primary Care Provider Active Start: May 13, 2024 End: May 13, 2024 Dr. Cheo Mckenzie MD Attending Provider Active S tart: May 13, 2024 End: May 13, 2024 Team Status: Inactive Member Role Status Dates Dr. Arnold Morton MD Attending Provider Active Start: May 31, 2024 End: May 31, 2024 Dr. Arnold Morton MD Referring Provider Active Start: May 31, 2024 End: May 31, 2024 Dr. Moshe Key MD Primary Care Provider Active Start: May 31, 2024 End: May 31, 2024 Team Status: Inactive Member Role Status Dates Dr. Moshe Key MD Primary Care Provider Active Start: July 02, 2024 End: July 02, 2024 Dr. Moshe Key MD Referring Provider Active Start: July 02, 2024 End: July 02, 2024 KIZZY Hebert Attending Provider Active Star t: July 02, 2024 End: July 02, 2024 Team Status: Inactive Member Role Status Dates Dr. Moshe Key MD Primary Care Provider Active Start: July 02, 2024 End: July 02, 2024 Dr. Cheo Mckenzie MD Attending Provider Active S tart: July 02, 2024 End: July 02, 2024 Team Status: Inactive Member Role Status Dates Dr. Moshe Key MD Primary Care Provider Active Start: July 07, 2024 End: July 07, 2024 Dr. Moshe Key MD Referring Provider Active Start: July 07, 2024 End: July 07, 2024 DENISE Meza Attending Provider Active Start: July 07, 2024 End: July 07, 2024 Team Status: Inactive Member Role Status Dates Dr. Moshe Key MD Primary Care Provider Active Start: July 28, 2024 End: July 28, 2024 Dr. Moshe Key MD Referring Provider Active Start: July 28, 2024 End: July 28, 2024 DENISE Meza Attending Provider Active Start: July 28, 2024 End: July 28, 2024 Team Status: Inactive Member Role Status Dates Dr. Moshe Key MD Primary Care Provider Active Start: July 30, 2024 End: July 30, 2024 Dr. Moshe Key MD Referring Provider Active Start: July 30, 2024 End: July 30, 2024 Dr. Arnold Morton MD Attending Provider Active Start: July 30, 2024 End: July 30, 2024 Team Status: Inactive Member Role Status Dates Dr. Moshe Key MD Primary Care Provider Active Start: July 30, 2024 End: July 30, 2024 Dr. Cheo Mckenzie MD Attending Provider Active S tart: July 30, 2024 End: July 30, 2024 Team Status: Inactive Member Role Status Dates Dr. Moshe Key MD Primary Care Provider Active Start: August 30, 2024 End: August 30, 2024 Dr. Arnold Morton MD Attending Provider Active Start: August 30, 2024 End: August 30, 2024 Dr. Arnold Morton MD Referring Provider Active Start: August 30, 2024 End: August 30, 2024 Director Of Industrial Relations Relationship Specialty Start Date End Date Moshe Key MD [address] [place], [place] [id number] PCP - General Family Medicine 09/04/23 Director Of Industrial Relations Relationship Specialty Start Date End Date Moshe Key MD [address] [place], [place] [id number] PCP - General Family Medicine 09/04/23 Director Of Industrial Relations Relationship Specialty Start Date End Date Moshe Key MD [address] [place] [id number] PCP - General Family Medicine 09/04/23 INFORMATION SOURCE (unrecogn ized section and content) DATE CREATED AUTHOR 06/08/2023 [facility] ([place]) DATE CREATED AUTHOR AUTHOR'S ORGANIZ ATION 05/27/2024 [facility] DATE CREATED AUTHOR AUTHOR'S ORGANIZ ATION 09/28/2024 [facility] DATE CREATED AUTHOR AUTHOR'S ORGANIZ ATION 12/04/2024 [facility] Goals (unrecognized section and content) Goals may be documented in a n alternate section Scheduled Active and Recently Administ ered Medications (unrecognized section and content) Medication Order 09/01/2023 09/02/2023 09/03/2023 acetaminophen (Tylenol) tablet 1,000 mg 1,000 mg, Oral, Once, On Fri09/03/23 at 0715, For 1 dose, Preprocedure, Administer 60 minutes prior to surgery. 714 (Not Given - Pr ovider: Francis Hagan RN - Reason: Other - Comment: pt took this morning) ceFAZolin (Ancef) 2,000 mg in sodium chloride 0.9 % 100 mL IVPB (COMPLETED) 2,000 mg, IntraVENous, at 200 mL/hr, Administer over 30 Minutes, Director Of Clinical Trials to O.R., On Fri09/03/23 at 0715, For 1 dose, Preprocedure, Administer within 1 hour prior to incision. Recommend to repeat in 3-4 hours after initial dose if still intra-op. Mini-Bag Plus bag, Suspected Indication (Select all that apply): Surgical Prophylaxis 921 (New Bag - Prov ider: Alaina Rubio APRN - POULTRY HANGER) famotidine (Pepcid) 20 mg in sodium chloride (PF) 0.9 % 10 mL injection(Linked Group 1) 20 mg, IntraVENous, Administer over 2 Minutes, Once, On Fri09/03/23 at 0715, For 1 dose, Preprocedure, IV or Oral 714 (See Alternativ e - Provider: Francis Hagan RN) famotidine (Pepcid) tablet 20 mg(Linked Group 1) 20 mg, Oral, Once, On Fri09/03/23 at 0715, For 1 dose, Preprocedure, IV or Oral - Use PO option as first line. If unable to tolerate PO, then okay to use IV. 714 (Not Given - Pr ovider: Francis Hagan RN - Reason: Other - Comment: pt took this morning) sodium chloride 0.9% (NS) flush 5-40 mL 5-40 mL, IntraVENous, Every 12 hours, First dose on Fri09/03/23 at 0715, Preprocedure, For Line Patency: Peripheral IV = 5 mL; Midline or Central Line = 10 mL/lumen. If following IV push medication, administer flush at same rate as the IV push. Flush volume is determined by type of infusion therapy being given. For non-viscous solutions use: Peripheral IV = 5 mL Midline or Central Line = 10 mL/lumen For viscous solutions (i.e. blood components, parenteral nutrition, contrast media, or after obtaining blood sample) use: Peripheral IV = 10 mL Midline or Central Line = 20 mL/lumen 0715 (Canceled Entry - Provider: Automatic Discharge Provider - Comment: Automatically canceled at discontinue of medication order) Continuous Medication Order 09/01/2023 09/02/2023 09/03/2023 lactated Ringer's (LR) infusion 50 mL/hr, IntraVENous, Continuous, Starting on Fri09/03/23 at 0715, Preprocedure, Upon admission to sameday - please start iv if patient does not have iv access. Use 500ml NS for patients on dialysis. 0811 (New Bag - Prov ider: Francis Hagan RN)0913 (Continued by Anesthesia - Provider: Alaina Rubio APRN - CAREN)1011 (Anesthesia Volume Adjustment - Provider: ASAF Schmitz CRNA) PRN Medication Order 09/01/2023 09/02/2023 09/03/2023 diphenhydrAMINE (BENADryl) injection 12.5 mg 12.5 mg, IntraVENous, Once PRN, itching, Starting on Fri09/03/23 at 1012, For 1 dose, Recovery (only) hydrALAZINE (Apresoline) injection 5 mg(Linked Group 2) 5 mg, IntraVENous, Every 15 min PRN, high blood pressure, for SBP greater than 160 mmHg for 2 consecutive measurements taken from different sites, Starting on Fri09/03/23 at 1012, For 2 doses, Recovery (only), PRN for SBP > 160 for 2 consecutive measurements, and if one of the following conditions is met: 1) If IV labetolol is ineffective. 2) If HR is under 60. 3) If patient has heart block, COPD or asthma. If both labetalol and hydralazine ineffective, notify anesthesia provider. HYDROmorphone (Dilaudid) injection 0.25 mg 0.25 mg, IntraVENous, Every 5 min PRN, moderate pain (4-6), Starting on Fri09/03/23 at 1012, For 4 doses, Recovery (only), For Phase I. If Phase II oral narcotics have been administered in the last 60 minutes, do not administer IV narcotics unless specifically approved by provider. HYDROmorphone (Dilaudid) injection 0.5 mg 0.5 mg, IntraVENous, Every 5 min PRN, severe pain (7-10), Starting on Fri09/03/23 at 1012, For 4 doses, Recovery (only), For Phase I. If Phase II oral narcotics have been administered in the last 60 minutes, do not administer IV narcotics unless specifically approved by provider. labetalol (Normodyne,Trandate) injection 5 mg(Linked Group 2) 5 mg, IntraVENous, Every 10 min PRN, high blood pressure, for SBP greater than 160 mmHg for 2 consecutive measurements taken from different sites., Starting on Fri09/03/23 at 1012, For 2 doses, Recovery (only), PRN for SBP >160 for 2 consecutive measurements, if HR is 60 or greater. If beta sherly is contraindicated (HR less than 60, heart block, COPD or asthma) use hydralazine IV order. lidocaine-EPINEPHrine (Xylocaine W/EPI) 1 %-1:[id number] injection (CANCELED) As needed, Starting on Fri09/03/23 at 0935, Intraprocedure 0935 (Given - Provid er: Austin Leos MD) LORazepam (Ativan) injection 0.5 mg 0.5 mg, IntraVENous, Once PRN, for anxiety or muscle spasm., Starting on Fri09/03/23 at 1012, For 1 dose, Recovery (only), For IV doses dilute dose with 1ml NS. ondansetron (Zofran) injection 4 mg 4 mg, IntraVENous, Once PRN, nausea, Starting on Fri09/03/23 at 1012, For 1 dose, Recovery (only), Initial antiemetic therapy. oxyCODONE (Roxicodone) immediate release tablet 10 mg(Linked Group 3) 10 mg, Oral, PRN, severe pain (7-10), Starting on Fri09/03/23 at 1012, For 1 dose, Recovery (only), PHASE II oxyCODONE (Roxicodone) immediate release tablet 5 mg(Linked Group 3) 5 mg, Oral, PRN, moderate pain (4-6), Starting on Fri09/03/23 at 1012, For 1 dose, Recovery (only), PHASE II sodium chloride 0.9 % bolus 500 mL 500 mL, IntraVENous, at 1,000 mL/hr, Administer over 0.5 Hours, PRN, Anti-nausea, Starting on Fri09/03/23 at 1012, Recovery (only), Indications: Anti-nausea sodium chloride 0.9 % infusion 5-250 mL/hr, IntraVENous, PRN, if patient receiving piggyback infusions and maintenance fluids are not ordered OR KVO fluids to protect IV site / prevent frequent line interruptions / long duration, Starting on Fri09/03/23 at 0714, Preprocedure, For piggyback infusion, administer at same rate as piggyback for a total of 25 mL. Enter 25 mL into dose field and piggyback rate into rate field of order. If piggyback is infusing at a rate less than 100 mL/hr, enter 25 mL into dose field and 100 mL/hr into rate field of order. For KVO fluids, enter rate of 20 mL/hr or less into rate field of order. sodium chloride 0.9 % irrigation solution (CANCELED) As needed, Starting on Fri09/03/23 at 0921, Intraprocedure 0921 (Given - Provid er: Austin Leos MD) sodium chloride 0.9% (NS) flush 5-40 mL 5-40 mL, IntraVENous, PRN, line care, After every IV line use, Starting on Fri09/03/23 at 0714, Preprocedure, For Line Patency: Peripheral IV = 5 mL; Midline or Central Line = 10 mL/lumen. If following IV push medication, administer flush at same rate as the IV push. Flush volume is determined by type of infusion therapy being given. For non-viscous solutions use: Peripheral IV = 5 mL Midline or Central Line = 10 mL/lumen For viscous solutions (i.e. blood components, parenteral nutrition, contrast media, or after obtaining blood sample) use: Peripheral IV = 10 mL Midline or Central Line = 20 mL/lumen Linked Groups Order Group 1: famotidine (Pepcid) tablet 20 mgJump to med 20 mg, Oral, Once, On Fri09/03/23 at 0715, For 1 dose, Preprocedure, IV or Oral - Use PO option as first line. If unable to tolerate PO, then okay to use IV. Or famotidine (Pepcid) 20 mg in sodium chloride (PF) 0.9 % 10 mL injectionJump to med 20 mg, IntraVENous, Administer over 2 Minutes, Once, On Fri09/03/23 at 0715, For 1 dose, Preprocedure, IV or Oral Group 2: labetalol (Normodyne,Trandate) injection 5 mgJump to med 5 mg, IntraVENous, Every 10 min PRN, high blood pressure, for SBP greater than 160 mmHg for 2 consecutive measurements taken from different sites., Starting on Fri09/03/23 at 1012, For 2 doses, Recovery (only), PRN for SBP >160 for 2 consecutive measurements, if HR is 60 or greater. If beta sherly is contraindicated (HR less than 60, heart block, COPD or asthma) use hydralazine IV order. Or hydrALAZINE (Apresoline) injection 5 mgJump to med 5 mg, IntraVENous, Every 15 min PRN, high blood pressure, for SBP greater than 160 mmHg for 2 consecutive measurements taken from different sites, Starting on Fri09/03/23 at 1012, For 2 doses, Recovery (only), PRN for SBP > 160 for 2 consecutive measurements, and if one of the following conditions is met: 1) If IV labetolol is ineffective. 2) If HR is under 60. 3) If patient has heart block, COPD or asthma. If both labetalol and hydralazine ineffective, notify anesthesia provider. Group 3: oxyCODONE (Roxicodone) immediate release tablet 5 mgJump to med 5 mg, Oral, PRN, moderate pain (4-6), Starting on Fri09/03/23 at 1012, For 1 dose, Recovery (only), PHASE II Or oxyCODONE (Roxicodone) immediate release tablet 10 mgJump to med 10 mg, Oral, PRN, severe pain (7-10), Starting on Fri09/03/23 at 1012, For 1 dose, Recovery (only), PHASE II FOR RECORDS PERTAINING TO PATIENTS WHO ARE [...] BE BASED ON THE PRIMARY CLINICAL RECORDS. [facility]. provides no warranty or guarantee of the accuracy or completeness of information in this document.
--- OUTSIDE RECORDS SUMMARY | 2024-12-05 15:00 | XMS RPT_ITS | CCD ---
Author Organization [facility] Care Team Providers Care Transit Driver Name Role Phone Unavailable Primary Care Provider UnavailMoshe Wagner MD Primary Care Provider BRIDENTHAL LIQUOR GRINDER MILL OPERATOR/SHOT EXAMINER, SEDRICK Primary Care Physic vu BRIDENTHAL LIQUOR GRINDER MILL OPERATOR/SHOT EXAMINER, SEDRICK Attending Farnaz vailable BRIDENTHAL LIQUOR GRINDER MILL OPERATOR/SHOT EXAMINER, SEDRICK Primary Care Farnaz vailable Isaac DURAND, KIZZY Baker Attending Provider Bridenthal LIQUOR GRINDER MILL OPERATOR - SHOT EXAMINER, Sedrick Primary Care Prov ider Moshe Key MD Primary Care Provider BRIDENTHAL LIQUOR GRINDER MILL OPERATOR/SHOT EXAMINER, SEDRICK Attending Farnaz vailable BRIDENTHAL LIQUOR GRINDER MILL OPERATOR/SHOT EXAMINER, SEDRICK Primary Care Farnaz vailable Dr. Moshe [...] Unavailable Yesi, Moshe Primary Care Unavailable Jonah, Newport Attending Unavailable Yesi, Moshe Primary Care Unavailable [...] Referring Unavailable Yesi, Moshe Primary Care Unavailable Joanh, Cheo Attending Unavailable Care Physician, No Primary Primary Care Unava ilable Care Physician, No Primary Referring Unava ilable Morton, Arnold Attending Unavailable Care Physician, No Primary Primary Care Unava ilable Jonah, Newport Attending Unavailable Yesi, Moshe Primary Care Unavailable Morton, Arnold Attending Unavailable Yesi, Moshe Referring Unavailable Yesi, Moshe Primary Care Unavailable Yesi, Moshe Referring Unavailable Tabby Do Attending Unavailable Yesi, Moshe Primary Care Unavailable Jonah, Newport Attending Unavailable BRIDENTHAL, SEDRICK Attending Unavailable YESI, [...] Drug Allergy 07-01-19 24 Nausea And Vomiting [facility] Opioid Agonists (1 source) Codeine Drug Allergy 04-02-20 23 Dizziness, Vomiting Only, Nausea And Vomiting [facility] Sulfamethoxazole / Trimethoprim (1 source) Sulfamethoxazole / Trimethoprim Drug Allergy 04-02-20 23 Vomiting Only [facility] (20 sources) Codeine Drug Allergy 04-02-20 23 Dizziness, Vomiting Only, Nausea And Vomiting [facility] (20 sources) Sulfamethoxazole / Trimethoprim Drug Allergy 04-02-20 23 Vomiting Only [facility] (2 sources) Sulfamethoxazole Drug Allergy 07-01-[address] [facility] (20 sources) Trimethoprim Drug Allergy 07-01-19 24 Nausea And Vomiting [facility] (20 sources) Sulfamethoxazole Allergy to substance 07-01-19 24 Nausea And Vomiting [facility] (1 source) Codeine Drug Allergy 09-24-[address] [facility] Repository (1 source) Sulfamethoxazole Drug Allergy 09-24-[address] [facility] Repository (1 source) Trimethoprim Drug Allergy 09-24-[address] [facility] Repository Medications Current Medications Medication Drug Class(es) [...] every week ergocalciferol (Vitamin D-2) 1.25 MG (10590 UT) capsule Indications: Vitamin D deficiency Take [...] 3 tablets daily po 0 Active nystatin 473555 unt/ml topical cream (20 sources) Polyene Antifungal [...] nystatin (Mycostatin) cream 10/22/2022 12/09/2023 Discontinued (Reorder) [place] 8-Cfu-Uxx-Fish Oil (Fish Oil) 1,200 (144-216) mg capsule (1 source) Start: 01-16-2024 [place] 7-Pxz-Lhe-Fish Oil (Fish Oil) 1,200 (144-216) mg capsule [...] 20 tablet 0 09/03/2023 09/08/2023 Active Vit G-A-W4-Azae-Z-Zumt- Quercet (Immune Essentials Daily) 750 mcg-150 mg- 31.25 mcg capsule (1 source) Start: 03-15-2024 Vit H-K-T4-Itvl-H-Hqyi-Querc et (Immune Essentials Daily) 750 mcg-150 mg- [...] mg docusate sodium 50 mg / sennosides, longterm 8.6 mg oral tablet (1 source) Start: [...] Results Test Name Value Interpretation Reference Range [facility] 3611-30-2024 36 Reviewed chart. Refi ll appropriate. RX sent. [facility] 36on 11-10-2024 36 Reviewed chart. Refi ll appropriate. RX sent. [facility] 36 Prescription Request : Last medication check: 06/28/24 Last physical exam: 05/04/24 Next scheduled appointment: 05/05/25 Last date of refill on this medication: omeprazole 06/10/24 Furosemide 12/29/23 Normal [facility] Orthopedic Visit Reporton Orthopedic Visit Report [facility] [address] [place] [address] [address] [place] [address] OFFICE VISIT Date of Service: 09/23/24 MR#: [id number] Acct: [id number] Name: YODIT LANDIN Rep #: [id number] : 1955 Provider: Dr. Arnold Morton MD Age/Sex: 69/F Location: [facility] Status: Signed Intake Vital Signs 03/29/24 13:35 [...] mg PO .QAM 01/16/24 09/23/24 History omega 1-kjs-agi-fish oil 1,200 mg 1 cap PO DAILY [...] PO TID 03/15/24 09/23/24 His tory 31.25 jjt-wyeq-vbtpblkzz-quer cet capsule (Immune Essentials Daily) acetaminophen 500 [...] by me, Dr. Arnold Morton MD 09/23/24 0675. Part of today???s visit was documented by [...] 5=normal Detail (more content not included)... Normal [facility] 3609-22-[address] [facility] 36 S: The patient is calling the [facility] about the cholesterol B: Reviewed the [...] question Protocols used: Medication Refill and Renewal Sjjn-JPUOU-WE [facility] 36on 09-02-2024 36 Prescription Request : Rosuvastatin Calcium 10 MG Oral Tablet Fenofibrate 160 MG Oral Tablet Last medication check: 06/28/24 Last physical exam: 05/04/24 Next scheduled appointment: 05/05/25 Last date of refill on this medication Rosuvastatin - 08/06/24 (Qty 90 refill 1) Fenofibrate - 08/06/24 (qty 90 refill 1) Normal [facility] Magnetic resonance imaging r eportOrdered By: Casey Prieto on 08-31-2024 Study report [facility] Imaging Services [address] [place] [address] Spine Cervical (Routine) MR#: [id number] Acct: [id number] Name: YODIT LANDIN Rep #: [id number] : 1955 F 69 From: Yuki Prieto DO PCP: Dr. Moshe Key MD Status: REG CLI Study:Spine Cervical (Routine) Date of Exam: 08/30/24 Exam# [id number] Ordering Dr: Berenice Morton MD PROCEDURE: Noncontrast [...] indents the ventral thecal sac and causes bety-sx-whpussvl central spinal canal narrowing. No focal disc herniation. Mild bilateral neural foraminal narrowing, greatest on the left. C4-5: A lobulated disc bulge indents the ventral thecal sac and causes severe central spinal canal narrowing. No focal disc herniation. No significant neural foraminal narrowing. C5-6: Lobulated disc bulge indents the ventral thecal sac and causes iozddrhk-bf-dsgfgd central spinal canal narrowing. No focal disc herniation. No significant right neural foraminal narrowing. Moderate left neural foraminal narrowing. C6-7: Asymmetric right posterior disc osteophyte complex causes tapgbetw-eo-xmwzsq right central spinal canal narrowing. Mild left and severe right neural foraminal narrowing. C7-T1: Mild lobulated asymmetric right disc bulge causes mild right central spinal canal narrowing. No large focal disc herniation. Mild left and moderate right neural foraminal narrowing. T1-2: There is some there is a moderate disc protrusion/extrusion at this level,which indents the ventral thecal sac and causes fsxwncwi-jy-bfnizt central spinal canal narrowing. There appears to [...] a moderate/severe degree at C5-6 and C6-7. Gemyhemf-wz-adfpop central spinal canal narrowing due to posterior disc extrusion at T1-2. Multilevel neural foraminal narrowing as described level by level above. Reading Location: [facility] CC: Dr. Arnold Morton MD; Dr. Moshe Key MD ~ Organ Pipe Maker Metal: Signed [facility] Spine Cervical (Routine)on 0 08-30-2024 Spine Cervical (Routine) [facility] Imaging Services [address] [place] [address] [id number] Spine Cervical (Routine) MR#: [id number] Acct: [id number] Name: YODIT LANDIN VIVIAN Rep #: [id number] : 1955 F 69 From: Casey Mosqueda i, DO PCP: Dr. Moshe Key MD Status: REG CLI Study: Spine Cervical (Routine) Date of Exam: Exam# [id number] Ordering Dr: Arnold Morton MD PROCEDURE: Noncontrast [...] indents the ventral thecal sac and causes tkgn-cb-uxpauixt central spinal canal narrowing. No focal disc herniation. Mild bilateral neural foraminal narrowing, greatest on the left. C4-5: A lobulated disc bulge indents the ventral thecal sac and causes severe central spinal canal narrowing. No focal disc herniation. No significant neural foraminal narrowing. C5-6: Lobulated disc bulge indents the ventral thecal sac and causes iizzumri-fk-hmxour central spinal canal narrowing. No focal disc herniation. No significant right neural foraminal narrowing. Moderate left neural foraminal narrowing. C6-7: Asymmetric right posterior disc osteophyte complex causes aqbdkmdz-nu-nmymea right central spinal canal narrowing. Mild left and severe right neural foraminal narrowing. C7-T1: Mild lobulated asymmetric right disc bulge causes mild right central spinal canal narrowing. No large focal disc herniation. Mild left and moderate right neural foraminal narrowing. T1-2: There is some there is a moderate disc protrusion/extrusion at this level, which indents the ventral thecal sac and causes qmcnbeqc-tf-steuxf central spinal canal narrowing. There appears to [...] a moderate/severe degree at C5-6 and C6-7. Sgybyumw-af-kevian central spinal canal narrowing due to posterior disc extrusion at T1-2. Multilevel neural foraminal narrowing as described level by level above. Reading Location: [facility] CC: Dr. Arnold Morton MD; Dr. Moshe Key MD Organ Pipe Maker Metal: Signed [place] [address]on 08-06-2024 36 Prescriptions sent. Follow-up as scheduled. [facility] 36 Wants both prescriptions sent into [facility]--RX pended. [facility] 36 ----- Message from ASAF Meneses CNP sent at 08/06/2024 6:04 AM EDT ----- Cholesterol levels have improved. Continue current dose of Rosuvastatin and Fenofibrate. Does she need refills? Liver enzymes are normal. [place] [address]on 08-05-2024 36 Reviewed chart. Refi ll appropriate. RX sent. [facility] Progress Noteon 08-05-2024 Progress Note Lab/venipuncture completed by [facility] [place] [address]on 08-04-2024 36 Lab draw tomorrow [facility] 36 Prescription Request : Last medication check: 06-28-24 Last physical exam: 05-04-24 Next scheduled appointment: 05-05-25 Last date of refill on this medication 07-07-[address] [facility] Cerv Spine 4 or 5 Viewson Cerv Spine 4 or 5 Views [facility] Imaging Services [address] [place] [address] Cerv Spine 4 or 5 Views MR#: [id number] Acct: [id number] Name: YODIT LANDIN Rep #: [id number] : 1955 F 69 From: Basim Vargas MD PCP: Dr. Moshe Key MD Status: DEP AMB Study: Cerv Spine 4 or 5 Views Date of Exam: 07/30/24 Exam# [id number] Ordering Dr: Enriqueta Houston PROCEDURE: CERV SPINE [...] No signs of cervical instability. Reading Location: [place] [address] CC: KIZZY Hebert; Dr. Moshe Key MD Organ Pipe Maker Metal: Signed Normal [facility] Orthopedic Visit Reporton Orthopedic Visit Report [facility] [address] [place] [address] OFFICE VISIT Date of Service: 07/30/24 MR#: [id number] Acct: [id number] Name: YODIT LANDIN Rep #: [id number] : 1955 Provider: Dr. Arnold Morton MD Age/Sex: 69/F Location: [facility] Status: Signed Intake Vital Signs 03/29/24 13:35 [...] mg PO .QAM 01/16/24 07/30/24 History omega 7-cqb-xfl-fish oil 1,200 mg 1 cap PO DAILY [...] PO TID 03/15/24 07/30/24 His tory 31.25 ndf-voxg-xnmprfdlr-quer cet capsule (Immune Essentials Daily) acetaminophen 500 [...] 35 As (more content not included)... Normal [facility] Orthopedic Visit Reporton Orthopedic Visit Report [facility] [address] [place] [address] OFFICE VISIT Date of Service: 07/28/24 MR#: [id number] Acct: [id number] Name: YODIT LANDIN Rep #: [id number] : 1955 Provider: DENISE braun Age/Sex: 69/F Location: [facility] Status: Signed Intake Vital Signs 03/29/24 13:35 [...] mg PO .QAM 01/16/24 07/28/24 History omega 4-nlv-wsv-fish oil 1,200 mg 1 cap PO DAILY [...] PO TID 03/15/24 07/28/24 His tory 31.25 aar-btcr-qebonppgi-quer cet capsule (Immune Essentials Daily) acetaminophen 500 [...] Denies easy ble (more content not included)... [facility] 07-19-2024 36 Just refilled to requested pharmacy last month for a 90 day supply plus one refill. [place] [address] Prescription Request : Last medication check: 01/21/24 Last physical exam: 05/04/24 Next scheduled appointment: 05/05/25 Last date of refill on this medication Irbesartan 05/03/24, chlorthalidone 05/03/24, Atrovent 07/05/24 [place] [address] Prescription Request : Last medication check: 01/21/24 Last physical exam: 05/04/24 Next scheduled appointment: 05/05/25 Last date of refill on this medication 06/04/24 [place] [address]on 07-07-2024 36 Atorvastatin removed from medication list. Rx sent for Rosuvastatin. Future lab orders signed. Thank you. [place] [address] Notified, agreeable, orders pended, patient is scheduled. Please send Rosuvastatin to [facility] on file. Thanks! Normal [facility] 36 I recommend switchin g from Atorvastatin to Rosuvastatin and rechecking levels again in 4 weeks. Continue current dose of Fenofibrate. Normal [facility] 36 Spoke to Yodit, she states she is taking the Fenofibrate and Atorvastatin daily. Normal [facility] Orthopedic Visit Reporton Orthopedic Visit Report [facility] [address] [place] [address] OFFICE VISIT Date of Service: 07/07/24 MR#: [id number] Acct: [id number] Name: YODIT LANDIN VIVIAN Rep #: [id number] : 1955 Provider: DENISE braun Age/Sex: 68/F Location: [facility] Status: Signed Intake Vital Signs 03/29/24 13:35 [...] mg PO .QAM 01/16/24 07/07/24 History omega 2-ssu-wwu-fish oil 1,200 mg 1 cap PO DAILY [...] PO TID 03/15/24 07/07/24 His tory 31.25 dwv-eigc-ncbiitthn-quer cet capsule (Immune Essentials Daily) acetaminophen 500 [...] She did get a knee sleeve from [facility] that was helping with the pain but [...] her PCP off (more content not included)... [facility] 07-06-2024 36 ----- Message from ASAF Meneses CNP sent at 07/06/2024 8:38 AM EST ----- Triglyceride levels and bad cholesterol levels have increased since previous check. Has she been taking the Fenofibrate and Atorvastatin daily as prescribed and not missing any doses? Liver enzymes are normal. Left a message to return call. [facility] 07-05-2024 36 Notified, no further questions. [facility] 36 Prescription sent to optum [facility] 36 Pt came in wanting a refill [...] physical exam: 05/04/24 Next scheduled appointment: 05/05/[address] [facility] Progress Noteon 07-05-2024 Progress Note Venipuncture complet ed by [facility]. Normal [facility] Lumbar Spine 2 or 3 Viewson 07-02-2024 Lumbar Spine 2 or 3 Views [facility] Imaging Services [address] [place] [address] Lumbar Spine 2 or 3 Views MR#: [id number] Acct: [id number] Name: YODIT LANDIN VIVIAN Rep #: [id number] : 1955 F 68 From: Isaiah Barahona MD PCP: Dr. Moshe Key MD Status: DEP AMB Study: Lumbar Spine 2 or 3 Views Date of Exam: Exam# [id number] Ordering Dr: Enriqueta Houston PROCEDURE: LUMBAR SPINE [...] IMPRESSION: Postsurgical changes. Spondylosis. Spondylolisthesis. Reading Location: [id number] CC: KIZZY Hebert; Dr. Moshe Key MD Organ Pipe Maker Metal: Signed Normal [facility] Orthopedic Visit Reporton Orthopedic Visit Report [facility] [address] [place] [address] [address] [place] [address] OFFICE VISIT Date of Service: 07/02/24 MR#: [id number] Acct: [id number] Name: YODIT LANDIN VIVIAN Rep #: [id number] : 1955 Provider: KIZZY Hebert Age/Sex: 68/F [...] mg PO .QAM 01/16/24 07/02/24 History omega 7-ohl-cck-fish oil 1,200 mg 1 cap PO DAILY [...] PO TID 03/15/24 07/02/24 His tory 31.25 xlr-ovzs-ctzdbpmsl-quer cet capsule (Immune Essentials Daily) acetaminophen 500 [...] into acti (more content not included)... Normal [facility] 29on 06-28-2024 29 Addended by: SEDRICK HEMPHILL on: 06/29/2024 06:05 PM Modules accepted: Level of Service [facility] 37on 06-28-[address] Morton about ortho specialist regarding the knee. May need ultrasound if getting injection in the knee. Normal [facility] Office Visiton 06-28-2024 Follow-up visit [id number] Juan Landin 1955 F Date Provider Department Center 06/28/2024 [id number] HEMPHILL [facility] Family History Problem Relation Age of Onset Ovarian cancer Mother Comments: 2000 Arthritis Father Hearing loss Father Stroke Father Prostate cancer Father Comments: 2001, recall ages Arthritis Brother Hearing loss Brother Hyperlipidemia Brother Prostate cancer Brother 71 Family Status - Relation Status Age at Mother Father Brother Level of Service:[address] [place] OFFICE/OUTPATIENT ESTABLISHED MOD MDM 30 MIN Reason for Visit and Comments: Follow-up [036397] Knee Pain [075407] [facility] Progress Noteon 06-28-2024 Progress Note Patient scheduled fo r lipid check next week. Continue fenofibrate 160 mg daily and atorvastatin 20 mg daily Normal [facility] Progress Note Discussed risks and benefits [...] and possible corticosteroid injection (may need ultrasound) [facility] Progress Note Patient was identifi ed by name and Date of . [facility] Progress Note 06/28/2024 Yodit Landin (: 1955) [...] TABLET BY MOUTH DAILY 12/29/23 Sedrick Bridenthal, LIQUOR GRINDER MILL OPERATOR - SHOT EXAMINER irbesartan (Avapro) 300 MG tablet TAKE 1 TABLET BY MOUTH DAILY 05/03/24 Sedrick Bridenthal, LIQUOR GRINDER MILL OPERATOR - SHOT EXAMINER levothyroxine (Synthroid, Levoxyl) 150 MCG tablet Take 1 tablet (150 mcg) by mouth every morning (before breakfast). 06/04/24 12/01/24 Jessica Smith APRN - SHOT EXAMINER metFORMIN (Glucophage) 1000 MG tablet TAKE 1 TABLET BY MOUTH IN THE MORNING AND 1 TABLET BY MOUTH IN THE EVENING TAKE WITH MEALS 06/02/24 Sedrick Bridenthal, LIQUOR GRINDER MILL OPERATOR - SHOT EXAMINER NON FORMULARY Gurmur 134 mg 2 tablets daily po Historical Provider, NON FORMULARY Cardio 450 mg daily po for heart health Historical Provider, NON FORMULARY 4Life Classic 600 mg 3 tablets daily po Historical Provider, nystatin (Mycostatin) cream APPLY TOPICALLY TWICE DAILY 06/10/24 Sedrick Bridenthal, LIQUOR GRINDER MILL OPERATOR - SHOT EXAMINER omega-3 (Fish Oil) 1200 MG capsule Take 1,200 mg by mouth daily. Historical Provider, Vitamin E 450 MG (1000 UT) capsule Take 450 mg by mouth daily. Historical Provider, Review of Systems Constitutional: Negative for activity change, chills, fatigue and fever. Respiratory: Negative. Cardiovascular: Negative. Musculoskeletal: Positive for arthralgias. Vitals: 06/28/24 093 (more content not included)... [facility] 36on 06-16-2024 36 Added. Pt aware. Normal [place] [address] Yes we can do it at that time- please add to the appt note [place] [address] Notified, asking if you can do this injection at her visit on 06/28/24. [place] [address] Reviewed knee xray. Shows mild osteoarthritis and some calcium deposits within the joint that are likely causing the pain. Recommend considering a corticosteroid knee injection (this can be done here or she can go and see ortho specialist for this) [place] [address] Received fax, placed in [employer]. [facility] 36on 06-15-2024 36 Faxed to stacie costello [place] [address] Name of caller: Juan salgado Contact phone number: [phone] Relationship to Patient: patient Provider: 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 Practice: [facility] Chief Complaint/Reason for Call: The patient states she got the knee xrays done at [facility] in [place]. Please advise Best time of day caller can be reached: Any Patient advised that office/PCP has 24-48 business hours to return their call: No [place] [address] Left a message to return call. CAC: If patient calls back please obtain where she got her knee xrays done at. [place] [address] We got a fax stating that there was no radiology report that they had for this. Will call Yodit and see where she got these done/when she got these done. [place] [address] Did we get these? [address] 06-14-2024 36 Called and spoke wit h [facility] medical records, they will be sending over x-ray results to us now. FYI [address] 06-10-2024 36 Prescription Request : Last medication check: 01/21/24 Last physical exam: 05/04/24 Next scheduled appointment: 06/28/24 Last date of refill on this medication 12/10/23 [place] [address] Prescription Request : Last medication check: 01/21/24 Last physical exam: 05/04/24 Next scheduled appointment: 06/28/24 Last date of refill on this medication Omeprazole 12/03/23, Vit D 01/16/[address] 06-08-2024 36 I have not received the xray results [place] [address] I had sent an MYRNA ov er to [facility]....have you gotten these yet? [address] 06-04-2024 36 Rx sent and future [...] level is excellent continue current medication. Normal [facility] Progress Noteon 06-03-2024 Progress Note Venipuncture complet ed by [facility]. Normal [facility] 36on 06-02-2024 36 Sent MYRNA to [facility] to s end xray results. Normal [place] [address] Reviewed chart. Refi ll appropriate. RX sent. Normal [facility] 36 Prescription Request : Last medication check: 01/21/24 Last physical exam: 05/04/24 Next scheduled appointment: 06/28/24 Last date of refill on this medication 03/25/24 90 day [address] [facility] PT D/C Summary (1)on 025 PT D/C Summary (1) [facility] Physical Therapy Health[address] [place] [address] / REHABILITATION SERVICES DISCHARGE SUMMARY MR#: [id number] Acct: [id number] Name: YODIT LANDIN Rep #: [id number] : 1955 68 From: Barbra COCHRAN Referring Dr.: Dr. Arnold Morton MD Status: REG RCR Insurance: [employer] [facility] ADV LIFE1 SELF PAY INSURANCE Discharge Summary [...] please feel free to call me at [phone]. Thank you for the referral of this patient. Sincerely, Barbra Clifton, DIMAS Balance/Gait/Functional tests Balance/Special Test Scores Oswestry Low Back Score: 3 Dizziness Score: 0 Improvement % Improvement: 100 05/31/24 0932 CC: Dr. Arnold Morton MD; Dr. Moshe Key MD Signed [facility] 36on 05-25-2024 36 Noted. I think she i s referring to xray of knee at [facility]. Will just need to make sure we receive results later this week. Normal [facility] 36 Name of caller: juan salgado Contact phone number: [phone] Relationship to Patient: patient Provider: 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 Practice: [facility] Chief Complaint/Reason for Call: pt called in to let provider that she got labs done Best time of day caller can be reached: AM Patient advised that office/PCP has 24-48 business hours to return their call: Yes [facility] 37on 05-25-2024 37 Try the Voltaren cre am on joints. Ice and elevate right knee, try compression sleeve during the day. [facility] Office Visiton 05-25-2024 Follow-up visit [id number] Juan Landin 1955 F Date Provider Department Center 05/25/2024 [id number] HEMPHILL [facility] [facility] Family History Problem Relation Age of Onset Ovarian cancer Mother Comments: 2000 Arthritis Father Hearing loss Father Stroke Father Prostate cancer Father Comments: 2001, recall ages Arthritis Brother Hearing loss Brother Hyperlipidemia Brother Prostate cancer Brother 71 Family Status - Relation Status Age at Mother Father Brother Level of Service:40570 [place] OFFICE/OUTPATIENT ESTABLISHED LOW MDM 20 MIN Reason for Visit and Comments: Knee Pain [957948] - Right-started a week ago [facility] Progress Noteon 05-25-2024 Progress Note Will obtain imaging due to history of osteoarthritis to evaluate status. Has been couple years since last imaging per patient. Recommend heather BLEDSOE to see chiropractor for knee, pending imaging results, consider PT and or referral to sports med [facility] Progress Note Patient was identifi ed by name and Date of . [facility] Progress Note 05/25/2024 Yodit Landin (: 1955) [...] ASAF Otoole CNP 05/25/2024 2:32 PM Normal [facility] XR KNEE THREE VIEWS RIGHTon 05-25-2024 [...] 05/25/2024 9:34:14 PM Ordering Provider: SEDRICK HEMPHILL [facility] 36on 05-24-2024 36 S: The patient is calling the [facility] about right knee pain B: This [...] present > 3 days Protocols used: Knee [id number]-[id number] [facility] PT D/C Summary (1)on 024 PT D/C Summary (1) [facility] [address] [place] [address] [address] [place] [address] / REHABILITATION SERVICES DISCHARGE SUMMARY MR#: [id number] Acct: [id number] Name: YODIT LANDIN Rep #: [id number] : 1955 68 From: Pa Flannery PT, Cert. T, [facility] Referring Dr.: Dr. Arnold Morton MD Status: REG RCR Insurance: [employer]ARP [facility] LIFE1 SELF PAY INSURANCE Discharge Summary [...] please feel free to call me at [phone]. Thank you for the referral of this patient. Sincerely, Pa Flannery, PT, Cert MDT, OCS Balance/Gait/Functional tests Balance/Special Test Scores Oswestry Low Back Score: 3 Dizziness Score: 24 Improvement % Improvement: 100 05/21/24 1420 CC: Dr. Arnold Morton MD; Dr. Moshe Key MD JUANYStoney Signed Normal [facility] PT D/C Summary (1)on 024 PT D/C Summary (1) [facility] Physical Therapy [address] [place] [address] / REHABILITATION SERVICES DISCHARGE SUMMARY MR#: [id number] Acct: [id number] Name: YODIT LANDIN Rep #: [id number] : 1955 68 From: Barbra COCHRAN Referring Dr.: Dr. Arnold Morton MD Status: REG RCR [facility] LIFE1 SELF PAY INSURANCE Discharge Summary [...] please feel free to call me at [phone]. Thank you for the referral of this patient. Sincerely, Barbra Stoner, MPT Balance/Gait/Functional tests Balance/Special Test Scores Oswestry Low Back Score: 3 Dizziness Score: 24 Improvement % Improvement: 100 05/14/24 1155 CC: Dr. Arnold Morton MD; Dr. Moshe Key MD Signed Normal [facility] Lumbar Spine 2 or 3 Viewson 05-13-2024 Lumbar Spine 2 or 3 Views [facility] [address] [place] [address] Lumbar Spine 2 or 3 Views MR#: [id number] Acct: [id number] Name: YODIT LANDIN Rep #: [id number] : 1955 F 68 From: Fernando Leslie DO PCP: Dr. Moshe Key MD Status: DEP AMB Study: Lumbar Spine 2 or 3 Views Date of Exam: Exam# [id number] Ordering Dr: Enriqueta [place] [id number] STUDY: X-RAY - LUMBAR SPINE REASON FOR [...] 20:50 EST Reading Location ID and State: [facility] / [place] Tel [phone], Service support , CC: KIZZY Hebert; Dr. Moshe Key MD Organ Pipe Maker Metal: Signed Normal [facility] Orthopedic Visit Reporton Orthopedic Visit Report [facility] [address] [place] [address] 5 [place] [address] OFFICE VISIT Date of Service: 05/13/24 MR#: [id number] Acct: [id number] Name: YODIT LANDIN Rep #: [id number] : 1955 Provider: KIZZY Hebert Age/Sex: 68/F Location: [facility] Status: Signed Intake Vital Signs 02/05/24 16:00 [...] mg PO .QAM 01/16/24 05/13/24 History omega 2-lne-xfb-fish oil 1,200 mg 1 cap PO DAILY [...] cap PO TID 03/15/24 05/13/24 History 31.25 wbi-fmeq-jggedotca-quer cet capsule (Immune Essentials Daily) acetaminophen 500 [...] decisions made by me, KIZZY Hebert 05/13/24 7770. Part of today???s visit was documented by [...] caused signifi (more content not included)... Normal [facility] 36on 05-06-2024 36 Noted. thanks Normal [place] [address] Notified. She is goi ng to try this and stop taking the indomethacin. Normal [place] [address] For right now she co uld take acetaminophen 1000 mg every 8 hours for her pain if needed Normal [place] [address] Notified, she states she would need something else for arthritis then because the 500mg tylenol she takes in the morning and in the evening is not helping and her left hand is in pain right now. She asked if this could be sent to [facility] since Dr. Key is gone for the day. Normal [place] [address] Rx sent, order christina d, indomethacin is still on her active medication list it was never stopped however that could be part of the reason why her kidney function looks the way it is because NSAIDs like indomethacin will affect the kidney function would recommend she only take that if absolutely necessary Normal [place] [address] Patient is agreeable , scheduled in 4 [...] it to be added back on. Normal [facility] 36 ----- Message from Moshe Key [...] mcg. Needs recheck in 4 weeks Normal [facility] Initial Evaluation (2) - PTo n 05-05-2024 Initial Evaluation (2) - PT [facility] [address] [place] [address]. [address] [place] [address] / REHABILITATION SERVICES INITIAL EVALUATION MR#: [id number] Acct: [id number] Name: YODIT LANDIN Rep #: [id number] : 1955 68 From: Barbra COCHRAN Referring Dr.: Dr. Arnold Morton MD Status: REG RCR Insurance: [facility] LIFE1 SELF PAY INSURANCE Patient's Visit [...] to be FAXED BACK to us at [phone] for Medicare purposes. For Medicare only, by signing this I certify the plan of care. Please let me know if there are questions or concerns regarding this plan of care. Physician Signature: (more content not included)... Normal [facility] Office Visiton 05-04-2024 Follow-up visit [id number] Juan Landin 1955 F Date Provider Department Center 05/04/2024 96996[facility]AX[facility]MOSHE [facility] Family History Problem Relation Age of Onset Ovarian cancer Mother Comments: 2000 Arthritis Father Hearing loss Father Stroke Father Prostate cancer Father Comments: 2001, cant recall ages Arthritis Brother Hearing loss Brother Hyperlipidemia Brother Prostate cancer Brother 71 Family Status - Relation Status Age at Mother Father Brother Level of Service:G0439 [place] PPPS, SUBSEQ VISIT Reason for Visit and Comments: Medicare Annual Wellness Visit Subsequent [677] Blood Work [417538] Health Maintenance [872] - Tdap vaccine- agree 2nd shingles vaccine- advised to go to pharmacy Dental exam- not done Eye exam- go to [facility] in [place] - will send for record Normal [facility] Progress Noteon 05-04-2024 Progress Note Controlled, continue metformin 1000 mg twice a day Orders: Comprehensive metabolic panel; Future Hemoglobin A1c; Future Comprehensive metabolic panel Hemoglobin A1c Normal [facility] Progress Note Patient verified by last name and date of . Normal [facility] Progress Note Controlled, continue atorvastatin 10 mg daily Orders: Lipid panel; Future Lipid panel Normal [facility] Progress Note Stable, recheck lab work today. Orders: CBC auto differential; Future Ferritin; Future Iron and TIBC; Future CBC auto differential Ferritin Iron and TIBC Normal [facility] Progress Note Initially elevated, recheck was normal, continue chlorthalidone 25 mg daily and irbesartan 300 mg daily Normal [facility] Progress Note [address] [address] Visit Type: Medicare Annual Wellness PCP: Moshe Key MD Reason for Visit: Medicare Annual Wellness Visit Subsequent, Blood Work, and Health Maintenance (Tdap vaccine- agree/2nd shingles vaccine- advised to go to pharmacy /Dental exam- not done/Eye exam- [facility] [place] - will send for record ) Assessment [...] HIB Vaccines (more content not included)... Normal [facility] Progress Note Controlled, continue levothyroxine 100 mcg daily Orders: TSH; Future TSH Normal [facility] Progress Note Stable, continue omeprazole [address] [facility] 36on 05-03-2024 36 lm to pre-visit plan for appointment with Dr Key on 05/04/24 9:30. Please ask patient to arrive 15 minutes early with Photo ID, insurance card Fasting: yes Put call through to office for pvp [facility] 36 Prescription Request : Last medication check: 01/21/2024 Last physical exam: 04/23/2023 Next scheduled appointment: 05/04/2024 Last date of refill on this medication: 12/03/[address] [facility] 36on 04-19-2024 36 Faxed. Notified patient. Normal [facility] 36 Order placed for Vestibular therapy- please fax and notify patient Normal [facility] 36 Name of caller: Juan salgado Contact phone number: [phone] Relationship to Patient: patient Provider: Colin Practice: [...] for vertigo to Barbra Clifton at the [facility] PT department at fax [phone]. She stated she has PT appointments on s and . Please advise and notify the patient when this has been done. Best time of day caller can be reached: any Patient advised that office/PCP has 24-48 business hours to return their call: No Normal [facility] Re-Evaluation - PT (1)on Re-Evaluation - PT (1) [facility] [address] [place] [address]. [address] [place] [address] / REEVALUATION / MEDICARE RECERTIFICATION PHYSICAL THERAPY MR#: [id number] Acct: [id number] Name: YODIT LANDIN Rep #: [id number] : 1955 68 From: Barbra Clifton MPT Referring Dr.: Dr. Arnold Morton MD Status:REG RCR Insurance: [facility] ADV LIFE1 SELF PAY INSURANCE Re-Evaluation Intro: [...] do not hesitate to contact me at [phone] by phone or if you have questions or concerns regarding this new plan of care! Sincerely, Barbra Clifton, MPT 04/19/24 1206 CC: Dr. Arnold Morton MD; Dr. Moshe Key MD Signed For Medicare only, by signing this I certify the plan of care. Physicians Signature Date Normal [facility] Lumbar Spine 2 or 3 Viewson 04-15-2024 Lumbar Spine 2 or 3 Views [facility] [address] [place] [address] Lumbar Spine 2 or 3 Views MR#: [id number] Acct: [id number] Name: YODIT LANDIN VIVIAN Rep #: [id number] : 1955 F 68 From: Jef Menjivar MD PCP: Dr. Moshe Key MD Status: DEP AMB Study: Lumbar Spine 2 or 3 Views Date of Exam: Exam# [id number] Ordering Dr: [place] [id number] EXAM: XR LUMBOSACRAL SPINE, 2 OR 3 [...] CC: KIZZY Hebert; Dr. Moshe Key MD Organ Pipe Maker Metal: Signed Normal [facility] Orthopedic Visit Reporton Orthopedic Visit Report [facility] [address] [place] [address] OFFICE VISIT Date of Service: 04/15/24 MR#: [id number] Acct: [id number] Name: YODIT LANDIN Rep #: [id number] : 1955 Provider: Dr. Arnold Morotn MD Age/Sex: 68/F Location: [facility] Status: Signed Intake Vital Signs 02/05/24 16:00 [...] mg PO .QAM 01/16/24 04/15/24 History omega 7-aje-ori-fish oil 1,200 mg 1 cap PO DAILY [...] cap PO TID 03/15/24 04/15/24 History 31.25 hmp-xhkj-bvmgkmjkq-quer cet capsule (Immune Essentials Daily) acetaminophen 500 [...] bending, lifting, (more content not included)... Normal [facility] Basic Metabolic Profile (BMP )on 03-30-2024 BUN/CRE 15.1 RATIO Normal - [facility] Comment on above: Performed By: #### L 100.0500, L500.2500 #### [facility] [address] [place], [address] CA,Total 8.5 mg/dL Normal 8.5-10.[address] [facility] Comment on above: Performed By: #### L 100.0500, L500.2500 #### [facility] [address] [place], [address] Chloride [Moles/Vol] 102 mmol/L Normal 98-107 [facility] Comment on above: Performed By: #### L 100.0500, L500.2500 #### [facility] [address] [place], [address] CO2 [Moles/Vol] 28.0 mmol/L Normal 21.0-32.[address] [facility] Comment on above: Performed By: #### L 100.0500, L500.2500 #### [facility] [address] [place], [address] Creatinine [Mass/Vol] 1.19 mg/dL High 0.55-1.02 [facility] Comment on above: Result Comment: The validity of the calculated GFR GFRAA in patients over 70 years has not been determined. Clinical correlation is essential. Performed By: #### L 100.0500, L500.2500 #### [facility] [address] [place], [address] ECRCL 49.60 ml/min Normal [facility] Comment on above: Performed By: #### L 100.0500, L500.2500 #### [facility] [address] [place], [address] EST GFR - AA 58 mL/min Low >[address] [facility] Comment on above: Result Comment: Afri can Guatemalan GFR Calc Performed By: #### L 100.0500, L500.2500 #### [facility] [address] [place], [address] GAP 7 Normal 5-[address] [facility] Comment on above: Performed By: #### L 100.0500, L500.2500 #### [facility] [address] [place], [address] GFR/1.73 sq M.predicted among non-blacks MDRD (S/P/Bld) [Vol rate/Area] 48 mL/min/{1.73_m2} Low >[address] [facility] Comment on above: Result Comment: Non- GFR Calc Performed By: #### L 100.0500, L500.2500 #### [facility] [address] [place], [address] Glucose [Mass/Vol] 126 mg/dL High 74-106 [facility] Comment on above: Result Comment: Fast ing Glucose result greater than or equal to 126 mg/dL suggests DIABETES MELLITUS per A.D.A. criteria. Performed By: #### L 100.0500, L500.2500 #### [facility] [address] [place], [address] Potassium [Moles/Vol] 4.5 mmol/L Normal 3.5-5.1 [facility] Comment on above: Performed By: #### L 100.0500, L500.2500 #### [facility] [address] [place], [address] Sodium [Moles/Vol] 137 mmol/L Normal 136-145 [facility] Comment on above: Performed By: #### L 100.0500, L500.2500 #### [facility] [address] [place], [address] Urea nitrogen [Mass/Vol] 18 mg/dL Normal 7-[address] [facility] Comment on above: Performed By: #### L 100.0500, L500.2500 #### [facility] [address] [place], [address] Bedside Glucoseon 03-30-2024 FINGERSTICK GLU 167 mg/dL High 74-[address] [facility] Comment on above: Result Comment: RANDI DUNLAP OF PATIENT CARE PER NURSING PROTOCOL Performed By: #### L 501.080 ####[facility] [address] [place], [address] FINGERSTICK GLU 116 mg/dL High 74-[address] [facility] Comment on above: Result Comment: RANDI DUNLAP OF PATIENT CARE PER NURSING PROTOCOL Performed By: #### L 501.080 ####[facility] [address] [place], [address] CBC-Complete Blood Cnt No Di ffon 03-30-2024 Erythrocyte distribution width (RBC) [Ratio] 16.0 % High 11.6-14.[address] [facility] Comment on above: Performed By: #### L 100.0500, L500.2500 #### [facility] [address] [place], [address] Hematocrit (Bld) [Volume fraction] 27.8 % Low 37-[address] [facility] Comment on above: Performed By: #### L 100.0500, L500.2500 #### [facility] [address] [place], [address] Hemoglobin (Bld) [Mass/Vol] 8.6 g/dL Low 12.0-15.[address] [facility] Comment on above: Performed By: #### L 100.0500, L500.2500 #### [facility] [address] [place], [address] MCH (RBC) [Entitic mass] 28.5 pg Normal 27.0-32.[address] [facility] Comment on above: Performed By: #### L 100.0500, L500.2500 #### [facility] [address] [place], [address] MCHC (RBC) [Mass/Vol] 30.9 g/dL Low 32-36 [facility] Comment on above: Performed By: #### L 100.0500, L500.2500 #### [facility] [address] [place], [address] MCV (RBC) [Entitic vol] 92.1 fL Normal 81-[address] [facility] Comment on above: Performed By: #### L 100.0500, L500.2500 #### [facility] [address] [place], [address] Platelet mean volume (Bld) [Entitic vol] 9.5 fL Normal 6.2-12.[address] [facility] Comment on above: Performed By: #### L 100.0500, L500.2500 #### [facility] [address] [place], [address] Platelets (Bld) [#/Vol] 138 10*3/uL Low 150-[address] [facility] Comment on above: Performed By: #### L 100.0500, L500.2500 #### [facility] [address] [place], [address] RBC (Bld) [#/Vol] 3.02 10*6/uL Low 4.2-5.4 [facility] Comment on above: Performed By: #### L 100.0500, L500.2500 #### [facility] [address] [place], [address] RDW SD 52.8 fl High 35.1-43.[address] [facility] Comment on above: Performed By: #### L 100.0500, L500.2500 #### [facility] [address] [place], [address] WBC (Bld) [#/Vol] 6.9 10*3/uL Normal 4.4-11.0 [facility] Comment on above: Performed By: #### L 100.0500, L500.2500 #### [facility] [address] [place], [address] Hemoglobinon 03-30-2024 Hemoglobin (Bld) [Mass/Vol] 9.6 g/dL Low 12.0-15.[address] [facility] Comment on above: Performed By: #### L 100.1300 ####[facility] [address] [place], [place], [address] Lumbar Spine 2 or 3 Viewson 03-30-2024 Lumbar Spine 2 or 3 Views [facility] Imaging Services [address] [place] [address] Lumbar Spine 2 or 3 Views MR#: [id number] Acct: [id number] Name: YODIT LANDIN Rep #: [id number] : 1955 F 68 From: Justin Monzon MD PCP: Dr. Moshe Key MD Status: DIS SUZETTE Study: Lumbar Spine 2 or 3 Views Date of Exam: Exam# [id number] Ordering Dr: [place] [address]:[id number] STUDY: X-RAY - LUMBAR SPINE REASON FOR [...] CC: KIZZY Hebert; Dr. Moshe Key MD Organ Pipe Maker Metal: Signed Normal [facility] Bedside Glucoseon 03-29-2024 FINGERSTICK GLU 179 mg/dL High 74-[address] [facility] Comment on above: Result Comment: RANDI GEMENT OF PATIENT CARE PER NURSING PROTOCOL Performed By: #### L 501.080 #### [facility] [address] [place], [address] FINGERSTICK GLU 158 mg/dL High 74-[address] [facility] Comment on above: Result Comment: RANDI GEMENT OF PATIENT CARE PER NURSING PROTOCOL Performed By: #### L 501.080 #### [facility] [address] [place], [address] Lumbar Spine 2 or 3 Viewson 03-29-2024 Lumbar Spine 2 or 3 Views [facility] Imaging Services [address] [place] [address] Lumbar Spine 2 or 3 Views MR#: [id number] Acct: [id number] Name: YODIT LANDIN Rep #: [id number] : 1955 F 68 From: Aleksandar hunag MD PCP: Dr. Moshe Key MD Status: ADM SUZETTE Study: Lumbar Spine 2 or 3 Views Date of Exam: Exam# [id number] Ordering Dr: [place] [id number] STUDY: X-RAY - LUMBAR SPINE REASON FOR [...] Arnold Morton MD; Dr. Moshe Key MD Organ Pipe Maker Metal: Signed [facility] MR/POSTOP.ANEon 03-29-2024 MR/POSTOP.[facility] Medical Records Department [address] [place] [address] Anesthesia Postop Eval I 03/29/24 1150 MR#: [id number] Acct: [id number] Name: YODIT LANDIN Rep #: [id number] : 1955 68 From: Chelsey Orantes CRNA PCP: Dr. Moshe Key MD Status:REG [facility] Y Race: C Location: [place] [address] Anesthesia: Postop Eval I Current Vital Signs [...] Orantes CRNA Cosigner Signature: Date CC: Signed [facility] MR/OVIZJQUO0iy 03-29-2024 MR/POSTOPAN2 [facility] Medical Records Department [address] [place] [address] Anesthesia Postop Eval II 03/29/24 1514 MR#: [id number] Acct: [id number] Name: YODIT LANDIN Rep #: [id number] : 1955 68 From: Jeovanny Oliver MD PCP: Dr. Moshe Key MD Status:ADM SUZETTE Y Race: C [facility] Postop Eval I Sum Postop Eval Completion status Anesthesia document: Postop Eval 1 completed: Yes Anesthesia Postop Eval I Summary Anesthesia Postop Eval I Summary: Anesthesia Postop Eval I: Assessment Summary Airway patent Yes 03/29/24 11:51 SECURITY OPERATIONS SPECIALIST.SKOBY Spontaneous unlabored Yes 03/29/24 11:51 SECURITY OPERATIONS SPECIALIST.SKOBY respirations Mental status Asleep 03/29/24 11:51 SECURITY OPERATIONS SPECIALIST.SKOBY nausea No 03/29/24 11:51 SECURITY OPERATIONS SPECIALIST.SKOBY Vomiting No 03/29/24 11:51 SECURITY OPERATIONS SPECIALIST.SKOBY Anesthesia Postop Eval I: Fluid Summary Crystalloid volume administer 1,400 03/29/24 11:51 SECURITY OPERATIONS SPECIALIST.SKOBY (ml) Colloids volume administered ( ml) Blood Product volume administered (ml) Total IV fluid infused 1,400 03/29/24 11:51 SECURITY OPERATIONS SPECIALIST.SKOBY Anesthesia Postop Eval I: Summary Notes Anesthesia Complication No 03/29/24 11:51 SECURITY OPERATIONS SPECIALIST.SKOBY Anesthesia Complication Comment: Post-operative progress note Anesthesia: Postop Eval II Evaluation Mental status: Awake and Calm Pain Level: 2 nausea: No Vomiting: No Complications Anesthesia Complication: No 03/29/24 1515 Date Jeovanny Oliver MD Cosigner Signature: Date CC: Signed Normal [facility] Operative Reporton 4 Operative Report [facility] Medical Records Department [address] [place] [address] Operative Report 03/29/24 1124 MR#: [id number] Acct: [id number] Name: YODIT LANDIN Rep #: [id number] : 1955 68 From: Arnold Morton MD PCP: Dr. Moshe Key MD Status:[facility] Location: [place] [address] Operative Report (Standard) Operative Information Surgery/Procedure Performed: [...] L5-S1 posterior spinal fusion and interbody fusion 76445 ??? L5-S1 posterior pedicle screw instrumentation 64185 . L5-S1 insertion of cage 75119 . Local autograft 94256 . Cancellous allograft with DBX 22849 Attending Surgeon: Dr. Arnold Morton Estimated blood [...] this resected bone was used as autograft. Norton was then utilized to remove the rest [...] Hemostasis was a (more content not included)... [place] [address]on 03-25-2024 36 Reviewed chart. Refi ll appropriate. RX sent. [facility] 36 Medication name: metFORMIN (Glucophage) 1000 MG [...] prior to picking up the medication: N/A [place] [address]on 03-22-[address] Ortiz office at [phone] [facility] [address] [facility] 36 Ok to fax? [place] [address]on 03-19-2024 36 Name of caller: Juan salgado Contact phone number: [phone] Relationship to Patient: patient Provider: Dr. Key Practice: [facility] Chief Complaint/Reason for Call: The patient states her Surgeon Dr. Arnold Morton needs a copy faxed to him of her last blood tests taken. His office # is [phone] the patient didn't have the fax #. Please advise. Best time of day caller can be reached: Any Patient advised that office/PCP has 24-48 business hours to return their call: No [facility] Orthopedic Visit Reporton Orthopedic Visit Report [facility] [address] [place] [address] 5 [place] [address] OFFICE VISIT Date of Service: 03/19/24 MR#: [id number] Acct: [id number] Name: YODIT LANDIN VIVIAN Rep #: [id number] : 1955 Provider: Dr. Arnold Morton MD [...] mg PO .QAM 01/16/24 03/19/24 History omega 9-cav-olx-fish oil 1,200 mg 1 cap PO DAILY [...] cap PO TID 03/15/24 03/19/24 History 31.25 ydc-ntbb-azerjvdwp-quer cet capsule (Immune Essentials Daily) Have you [...] states sh (more content not included)... Normal [facility] Hemoglobin A1con 03-18-2024 HbA1c (Bld) [Mass fraction] 6.6 % High 3.8-5.[address] [facility] Comment on above: Order Comment: ADD O N Result Comment: Norm al < 5.7 % Prediabetic 5.7 - 6.4 % Diabetic >or= 6.5 % Please note range changes. Performed By: #### L 501.9985 #### [facility] [address] [facility]. [place], [place], [id number] Hepatitis A AB, Totalon 02-24 HEPATITIS A,TOT Negative Normal Negative [facility] Comment on above: Result Comment: Comm ent: The HAV total antibody assay detects both IgG and IgM but does not differentiate between them. A negative result suggests susceptibility to infection. A positive result could be due to vaccination, previously resolved infection or active infection. Testing for HAV IgM should be performed if active HAV infection is suspected. [facility] offers profiles that will automatically reflex positive HAV total antibody results to IgM (e.g., panel #[id number] HAV Antibody w/ Rfx). Performed at: [address] [id number] Benzene Washer: Aris Jett PhD, Phone: [phone] Performed By: #### L 100.0100, M100.651, L3890.6300, L3890.6200, L500.2500, L3100.0300, BTSPAT, L3890.6005 ####[facility] [address] [facility] [place], [address] MRSA/SAID NASAL SCREENon MRSA+SAID SCRN Reason for Exam: PRE -OP MRSA MRSA Negative S. AUREUS S. aureus Negative Normal [facility] Comment on above: Performed By: #### L 100.0100, M100.651, L3890.6300, L3890.6200, L500.2500, L3100.0300, BTSPAT, L3890.6005 ####[facility] [address] [place], [address] Basic Metabolic Profile (BMP )on 03-17-2024 BUN/CRE 14.7 RATIO Normal - [facility] Comment on above: Performed By: #### L 100.0100, M100.651, L3890.6300, L3890.6200, L500.2500, L3100.0300, BTSPAT, L3890.6005 ####[facility] [address] [place], [place], [id number] CA,Total 9.3 mg/dL Normal 8.5-10.[address] [facility] Comment on above: Performed By: #### L 100.0100, M100.651, L3890.6300, L3890.6200, L500.2500, L3100.0300, BTSPAT, L3890.6005 ####[facility] [address] [place], [place], [phone] Chloride [Moles/Vol] 104 mmol/L Normal 98-107 [facility] Comment on above: Performed By: #### L 100.0100, M100.651, L3890.6300, L3890.6200, L500.2500, L3100.0300, BTSPAT, L3890.6005 ####[facility] [address] [place], [address] CO2 [Moles/Vol] 25.0 mmol/L Normal 21.0-32.[address] [facility] Comment on above: Performed By: #### L 100.0100, M100.651, L3890.6300, L3890.6200, L500.2500, L3100.0300, BTSPAT, L3890.6005 ####[facility] [address] [place], [address] Creatinine [Mass/Vol] 1.29 mg/dL High 0.55-1.02 [facility] Comment on above: Result Comment: The validity of the calculated GFR GFRAA in patients over 70 years has not been determined. Clinical correlation is essential. Performed By: #### L 100.0100, M100.651, L3890.6300, L3890.6200, L500.2500, L3100.0300, BTSPAT, L3890.6005 ####[facility] [address] [place], [address] EST GFR - AA 53 mL/min Low >[address] [facility] Comment on above: Result Comment: Afri can Guatemalan GFR Calc Performed By: #### L 100.0100, M100.651, L3890.6300, L3890.6200, L500.2500, L3100.0300, BTSPAT, L3890.6005 ####[facility] [address] [place], [address] GAP 8 Normal 5-[address] [facility] Comment on above: Performed By: #### L 100.0100, M100.651, L3890.6300, L3890.6200, L500.2500, L3100.0300, BTSPAT, L3890.6005 ####[facility] [address] [place], [address] GFR/1.73 sq M.predicted among non-blacks MDRD (S/P/Bld) [Vol rate/Area] 44 mL/min/{1.73_m2} Low >[address] [facility] Comment on above: Result Comment: Non- GFR Calc Performed By: #### L 100.0100, M100.651, L3890.6300, L3890.6200, L500.2500, L3100.0300, BTSPAT, L3890.6005 ####[facility] [address] [place], [address] Glucose [Mass/Vol] 179 mg/dL High 74-106 [facility] Comment on above: Result Comment: Fast ing Glucose result greater than or equal to 126 mg/dL suggests DIABETES MELLITUS per A.D.A. criteria. Performed By: #### L 100.0100, M100.651, L3890.6300, L3890.6200, L500.2500, L3100.0300, BTSPAT, L3890.6005 ####[facility] [address] [place], [address] Potassium [Moles/Vol] 4.2 mmol/L Normal 3.5-5.1 [facility] Comment on above: Performed By: #### L 100.0100, M100.651, L3890.6300, L3890.6200, L500.2500, L3100.0300, BTSPAT, L3890.6005 ####[facility] [address] [place], [address] Sodium [Moles/Vol] 137 mmol/L Normal 136-145 [facility] Comment on above: Performed By: #### L 100.0100, M100.651, L3890.6300, L3890.6200, L500.2500, L3100.0300, BTSPAT, L3890.6005 ####[facility] [address] [place], [address] Urea nitrogen [Mass/Vol] 19 mg/dL High 7-[address] [facility] Comment on above: Performed By: #### L 100.0100, M100.651, L3890.6300, L3890.6200, L500.2500, L3100.0300, BTSPAT, L3890.6005 ####[facility] [address] [place], [address] CBC W/Diff, Automatedon 10-2 Absolute Lymph 1.45 X10 3/uL Normal 0.83-4.[address] [facility] Comment on above: Performed By: #### L 100.0100, M100.651, L3890.6300, L3890.6200, L500.2500, L3100.0300, BTSPAT, L3890.6005 ####[facility] [address] [place], [address] Absolute Neut 2.5 X10 3/uL Normal 2.0-7.[address] [facility] Comment on above: Performed By: #### L 100.0100, M100.651, L3890.6300, L3890.6200, L500.2500, L3100.0300, BTSPAT, L3890.6005 ####[facility] [address] [place], [address] Basophils/100 WBC (Bld) 1.1 % High 0-[address] [facility] Comment on above: Performed By: #### L 100.0100, M100.651, L3890.6300, L3890.6200, L500.2500, L3100.0300, BTSPAT, L3890.6005 ####[facility] [address] [place], [address] Eosinophils/100 WBC (Bld) 6.3 % High 0-[address] [facility] Comment on above: Performed By: #### L 100.0100, M100.651, L3890.6300, L3890.6200, L500.2500, L3100.0300, BTSPAT, L3890.6005 ####[facility] [address] [place], [address] Erythrocyte distribution width (RBC) [Ratio] 15.6 % High 11.6-14.[address] [facility] Comment on above: Performed By: #### L 100.0100, M100.651, L3890.6300, L3890.6200, L500.2500, L3100.0300, BTSPAT, L3890.6005 ####[facility] [address] [place], [address] Hematocrit (Bld) [Volume fraction] 33.0 % Low 37-[address] [facility] Comment on above: Performed By: #### L 100.0100, M100.651, L3890.6300, L3890.6200, L500.2500, L3100.0300, BTSPAT, L3890.6005 ####[facility] [address] [place], [address] Hemoglobin (Bld) [Mass/Vol] 10.3 g/dL Low 12.0-15.[address] [facility] Comment on above: Performed By: #### L 100.0100, M100.651, L3890.6300, L3890.6200, L500.2500, L3100.0300, BTSPAT, L3890.6005 ####[facility] [address] [place], [address] IG% 0.600 Normal 0.0-0.[address] [facility] Comment on above: Result Comment: IG% - Immature Granulocytes (promyelocytes, myelocytes and metamyelocytes) > 1% indicates that a LEFT SHIFT is Present. Performed By: #### L 100.0100, M100.651, L3890.6300, L3890.6200, L500.2500, L3100.0300, BTSPAT, L3890.6005 ####[facility] [address] [place], [address] Lymphocytes/100 WBC (Bld) 30.7 % Normal 19-[address] [facility] Comment on above: Performed By: #### L 100.0100, M100.651, L3890.6300, L3890.6200, L500.2500, L3100.0300, BTSPAT, L3890.6005 ####[facility] [address] [place], [address] MCH (RBC) [Entitic mass] 28.5 pg Normal 27.0-32.[address] [facility] Comment on above: Performed By: #### L 100.0100, M100.651, L3890.6300, L3890.6200, L500.2500, L3100.0300, BTSPAT, L3890.6005 ####[facility] [address] [place], [address] MCHC (RBC) [Mass/Vol] 31.2 g/dL Low 32-36 [facility] Comment on above: Performed By: #### L 100.0100, M100.651, L3890.6300, L3890.6200, L500.2500, L3100.0300, BTSPAT, L3890.6005 ####[facility] [address] [place], [address] MCV (RBC) [Entitic vol] 91.2 fL Normal 81-[address] [facility] Comment on above: Performed By: #### L 100.0100, M100.651, L3890.6300, L3890.6200, L500.2500, L3100.0300, BTSPAT, L3890.6005 ####[facility] [address] [place], [address] Monocytes/100 WBC (Bld) 8.0 % Normal 0-[address] [facility] Comment on above: Performed By: #### L 100.0100, M100.651, L3890.6300, L3890.6200, L500.2500, L3100.0300, BTSPAT, L3890.6005 ####[facility] [address] [place], [address] Neutrophils/100 WBC (Bld) 53.3 % Normal 47-[address] [facility] Comment on above: Performed By: #### L 100.0100, M100.651, L3890.6300, L3890.6200, L500.2500, L3100.0300, BTSPAT, L3890.6005 ####[facility] [address] [place], [address] Nucleated RBC (Bld) [#/Vol] 0 10*3/uL Normal 0-[address] [facility] Comment on above: Performed By: #### L 100.0100, M100.651, L3890.6300, L3890.6200, L500.2500, L3100.0300, BTSPAT, L3890.6005 ####[facility] [address] [place], [address] Platelet mean volume (Bld) [Entitic vol] 9.8 fL Normal 6.2-12.[address] [facility] Comment on above: Performed By: #### L 100.0100, M100.651, L3890.6300, L3890.6200, L500.2500, L3100.0300, BTSPAT, L3890.6005 ####[facility] [address] [place], [address] Platelets (Bld) [#/Vol] 159 10*3/uL Normal 150-[address] [facility] Comment on above: Performed By: #### L 100.0100, M100.651, L3890.6300, L3890.6200, L500.2500, L3100.0300, BTSPAT, L3890.6005 ####[facility] [address] [place], [address] RBC (Bld) [#/Vol] 3.62 10*6/uL Low 4.2-5.4 [facility] Comment on above: Performed By: #### L 100.0100, M100.651, L3890.6300, L3890.6200, L500.2500, L3100.0300, BTSPAT, L3890.6005 ####[facility] [address] [place], [place], [phone] RDW SD 51.6 fl High 35.1-43.[address] [facility] Comment on above: Performed By: #### L 100.0100, M100.651, L3890.6300, L3890.6200, L500.2500, L3100.0300, BTSPAT, L3890.6005 ####[facility] [address] [place], [address] WBC (Bld) [#/Vol] 4.7 10*3/uL Normal 4.4-11.0 [facility] Comment on above: Performed By: #### L 100.0100, M100.651, L3890.6300, L3890.6200, L500.2500, L3100.0300, BTSPAT, L3890.6005 ####[facility] [address] [place], [address] HIV - WCHon 03-17-2024 HIV Non-Reactive Normal Nonreactive [facility] Comment on above: Order Comment: Reaso n for Exam: PAT Performed By: #### L 100.0100, M100.651, L3890.6300, L3890.6200, L500.2500, L3100.0300, BTSPAT, L3890.6005 ####[facility] [address] [place], [place], [phone] Hepatitis B Surface Antibody on 03-17-2024 HEP B Surf Ab Reactive Normal [facility] Comment on above: Order Comment: Reaso n for Exam: PAT Result Comment: Non Reactive: Inconsistent with immunity less than <10 mIU/mL Reactive: Consistent with immunity greater than or equal to 10 mIU/mL Performed By: #### L 100.0100, M100.651, L3890.6300, L3890.6200, L500.2500, L3100.0300, BTSPAT, L3890.6005 ####[facility] [address] [place], [address] Hepatitis C Antibodyon 03-17 Hepatitis C AB Non-Reactive Normal Nonreactive [facility] Comment on above: Order Comment: Reaso n for Exam: PAT Result Comment: Non Reactive: < 0.8 Equivocal: >/= 0.8 to < 1.0 Reactive: >/= 1.0 The CDC requires that a reactive/equivocal HCV antibody result be sent out for confirmation. HCV Quant by PCR testing. Performed By: #### L 100.0100, M100.651, L3890.6300, L3890.6200, L500.2500, L3100.0300, BTSPAT, L3890.6005 ####[facility] [address] [place], [address] Magnesiumon 03-17-2024 Magnesium [Mass/Vol] 1.1 mg/dL Low 1.6-2.6 [facility] Comment on above: Performed By: #### L 501.5200, L501.9520 #### [facility] [address] [place], [address] Thyroid Stim Hormone (TSH)on 03-17-2024 TSH 0.423 uIU/mL Normal 0.358-3.[address] [facility] Comment on above: Performed By: #### L 501.5200, L501.9520 #### [facility] [address] [place], [place], [address] Type AND Screen - PAT ONLYon 03-17-2024 ABO and Rh group Nom (Bld) Blood group O Rh(D) positive Normal [facility] Comment on above: Order Comment: Surge ry Date: 03/29/24Reason for Laboratory Test PRE-[id number] invasive Transforaminal Lumbar Interbody Fusi Performed By: #### L 100.0100, M100.651, L3890.6300, L3890.6200, L500.2500, L3100.0300, BTSPAT, L3890.6005 ####[facility] [address] [place], [address] 36on 03-15-2024 36 Notified yodit, no further questions. [place] [address] Rx sent to requested pharmacy on 02/13/24 for a 90 day supply plus one refill. [place] [address] Medication name: levothyroxine (Synthroid, Levoxyl) 100 MCG [...] to picking up the medication: Yes ' [place] [address] Sent again via rightfax. [place] [address] Name of caller: Aura patel ([facility]) Contact phone number: [phone] Relationship to Patient: na Provider: Dr. Key Practice: [facility] Chief Complaint/Reason for Call: States she received the other information but the results to Pt echocardiogram didn't come through. Requesting to have the results to echocardiogram faxed to [phone]. Please advise Best time of day caller can be reached: Any AM Patient advised that office/PCP has 24-48 business hours to return their call: Yes [place] [address] Yes pt bought it OTC and is taking 2000 units per day Normal [facility] 36 Per Maria Luisa's note she was to take this dose x12 weeks then transition to 2,000 units daily OTC. Normal [facility] 36 Prescription Request : Last medication check: 01/21/24 Last physical exam: 04/23/23 Next scheduled appointment: 05/04/24 Last date of refill on this medication 01/16/24 12 capsules no refill Normal [facility] Office Visiton 03-09-2024 Follow-up visit [id number] Juan Landin 1955 F Date Provider Department Center 03/09/2024 [id number] HEMPHILL [facility] Family History Problem Relation Age of Onset Ovarian cancer Mother Comments: 2000 Arthritis Father Hearing loss Father Stroke Father Prostate cancer Father Comments: 2001, recall ages Arthritis Brother Hearing loss Brother Hyperlipidemia Brother Prostate cancer Brother 71 Family Status - Relation Status Age at Mother Father Brother Level of Service:[address] [place] OFFICE/OUTPATIENT ESTABLISHED MOD MDM 30 MIN Reason for Visit and Comments: Pre-op Exam [560345] - Surgical clearance Normal [facility] PATINSon 03-09-2024 PATINS Vit d 2,000 international units daily over the counter. Normal [facility] Progress Noteon 03-09-2024 Progress Note Medical optimized fo r surgery. Normal [facility] Progress Note Controlled. Glucose readings consistently under 150. Continue metformin 1000 mg twice daily Normal [facility] Progress Note Mild elevation in bl ood pressure today. 146/76. Continue current medications Avapro 300 mg daily, chlorthalidone 25 mg daily, follow-up as directed. Normal [facility] Progress Note [facility] [address] [facility] [address] Dept: [phone] Dept Loc: [phone] Subjective Chief Complaint: Ms. Landin is a 68 y.o. female who presentsfor pre-operative evaluation. Planned surgery: MIS-TLIF at L5-S1 Surgeon: Dr. Rose- [facility] Date of Surgery: 03/29/2024 Plans to be overnight. Then home the next day. Will have PT at the rehab center in [place]. Has another appt next week- on the [...] complication, without long-term current use of insulin ([facility] ([facility]) Assessment & Plan: Controlled. Glucose readings consistently [...] primary care provider as scheduled. 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, LIQUOR GRINDER MILL OPERATOR - SHOT EXAMINER [facility] Progress Note Patient was identifi ed by name and Date of . Health Maintenance Due Topic Hepatitis A Vaccines-declined RSV Immunization aged 60 or older-declined Diabetes: Dental Exam-needs completed COVID-19 Vaccine-declined Diabetes: Retinopathy Screening-02/20/2024 [facility] Diabetes: Foot Exam-pended [facility] 36on 03-05-2024 36 Scheduled with Maria Luisa 03/09/24, placed clearance form on her desk. [facility] 36 Received the forms t hat she needs scheduled for preop clearance [facility] 36on 03-04-2024 36 Name of caller: Juan stoney Contact phone number: [phone] Relationship to Patient: patient Provider: Dr Key [...] business hours to return their call: Yes [facility] 36on 02-26-2024 36 Sent 2Checkoutt message as requested by patient. [facility] 36 Should be taking vit d 50,000 international units weekly (prescription), then calcium 1200 mg over the counter daily Normal [facility] 36 Patient came in to l et us know she was told by Dr. Marroquin that she has to have an L5-S1 Spinal Fusion. It is not yet scheduled but they will send us something for clearance. He asked if she is taking any caltrate/vit D. She states she is not but asked if she should be? Normal [facility] Orthopedic Visit Reporton Orthopedic Visit Report [facility] [address] [place] [address] 5 [place] [address] OFFICE VISIT Date of Service: 02/26/24 MR#: [id number] Acct: [id number] Name: YODTI LANDIN Rep #: [id number] : 1955 Provider: Dr. Arnold Morton MD Age/Sex: 68/F Location: [facility] Status: Signed Intake Vital Signs 02/05/24 16:00 [...] topical topical 01/16/24 02/26/24 History cream omega 3-fra-egt-fish oil 1,200 mg cap PO 01/16/24 02/26/24 [...] and had a PT on site at [facility] who would adjust her hips when [...] Spondylolisthesis, l (more content not included)... Normal [facility] DBT Breast - bilateral scree gómez 02-24-2024 [...] Electronically Signed Date/Time: 02/24/2024 8:42 AM EDT [facility] Patient Name: YODIT LANDIN : 1955 Exam Date/Time: 02/23/2024 10:59 Procedure: BI MAMMOGRAM SCREENING TOMOSYNTHESIS BILATERAL Ordering Provider: HEMPHILL REBECCA Reason For Exam: This exam was performed at: [facility] [address] [place] [address] RISK ALERT: The Cancer Risk Assessment scores [...] images: BB's = Nipples; skin lesions Open [place] = Palpable Line = Scar COMPARISON: 01/01/2022, 02/12/2023 TISSUE DENSITY: BIRADS B - There are scattered areas of fibroglandular density. FINDINGS: No suspicious masses, architectural distortions or suspiciously clustered microcalcifications are identified. There is no evidence of skin thickening or nipple retraction. There are no significant changes when compared with prior studies. [facility] Sanjuanita Riley MD - 02/24/2024 Patient Name: YODIT LANDIN : 1955 Exam Date/Time: 02/23/2024 10:59 Procedure: BI MAMMOGRAM SCREENING TOMOSYNTHESIS BILATERAL Ordering Provider: HEMPHILL REBECCA Reason For Exam: This exam was performed at: [facility] [address] [place] [address] RISK ALERT: The Cancer Risk Assessment scores [...] images: BB's = Nipples; skin lesions Open [place] = Palpable Line = Scar COMPARISON: 01/01/2022, [...] Electronically Signed Date/Time: 02/24/2024 8:42 AM EDT [facility] DBT Breast - bilateral scree octaviagOrdered By: Sanjuanita Riley on 02-24-2024 [facility] Work Phone: DBT Breast - bilateral scree octaviaclarissa 02-23-2024 Radiology Study observation (narrative) [employer] Spine Lumbar (Routine)on Spine Lumbar (Routine) [facility] [address] [place], [place] [address] Spine Lumbar (Routine) MR#: [id number] Acct: [id number] Name: JANETTYODIT VIVIAN Rep #: [id number] : 1955 F 68 From: Jaime Jeffriesdorina jimenez DO PCP: Dr. Moshe Key MD Status: REG CLI Study: Spine Lumbar (Routine) Date of Exam: 02/16/24 Exam# [id number] Ordering Dr: [place] [id number] EXAM: MR LUMBAR SPINE WITHOUT INTRAVENOUS CONTRAST [...] facet arthrosis. Mild spinal canal stenosis and dxvd-dy-ezocicaa bilateral neural foraminal narrowing. L5-S1: Severe bilateral [...] Arnold Morton MD; Dr. Moshe Key MD [employer] P[employer] Metal: Signed [facility] 36on 02-13-2024 36 Notified, needs 90 d ay supply to mail order pharmacy. Normal [facility] 36 ----- Message from ASAF Ramos CNP sent at 02/13/2024 11:09 AM EDT ----- Tsh - normal, continue current dosing of levothyroxine 100 mcg daily Normal [facility] CT LUNG SCREENING LOW DOSEon 02-12-2024 [...] PM EDT Lung 3 LDCT 1 Yr [id number] Patient Name: YODIT LANDIN : 1955 Exam Date/Dani (more content not included)... Normal [facility] Progress Noteon 09-19-2024 Progress Note Venipuncture complet ed by [facility]. Normal [facility] US Heart TransthoracicOrdere d By: Uriel Macias on 02-12-2024 Ao Root Index 1.24 cm/m2 [facility] Work Phone: Aortic Root 2.4 [facility] Work Phone: Aortic Sinus Valsalva 2.4 cm [facility] Work Phone: Aortic Sinus Valsalva Index 1.24 cm/m2 [facility] Work Phone: Ascending Aorta 3.1 cm [facility] Work Phone: Ascending Aorta Index 1.60 cm/m2 [facility] Work Phone: AV Area by Peak Velocity 1.4 cm2 [facility] Work Phone: AV Area by VTI 1.4 cm2 [facility] Work Phone: AV Mean Gradient 9 mmHg [facility] Work Phone: AV Mean Velocity 1.4 m/s [facility] Work Phone: AV Peak Gradient 16 mmHg [facility] Work Phone: AV Peak Velocity 2.0 m/s [facility] Work Phone: AV Velocity Ratio 0.65 [facility] Work Phone: AV VTI 41.6 cm [facility] Work Phone: ROOSE[place]ELT/BSA Peak Velocity 0.7 cm2/m2 [facility] Work Phone: ROOSE[place]ELT/BSA VTI 0.7 cm2/m2 [facility] Work Phone: E/E' Lateral 18.20 [facility] Work Phone: E/E' Ratio (Averaged) 18.20 [facility] Work Phone: E/E' Septal 18.20 [facility] Work Phone: EF BP 55 % 55 - 100 % [facility] [place] [employer] Work Phone: Fractional Shortening 2D 33 % 28 - 44 % [facility] [place] [employer] Work Phone: Global Longitudinal Strain -17.1 % [facility] [place] [employer] Work Phone: Interpretation and review of laboratory results Abnormal [facility] [place] [employer] Work Phone: IVC Diameter 1.1 cm [facility] [place] [employer] Work Phone: IVSd 1.0 cm Abnormal 0.6 - 0.9 cm [facility] [place] [employer] Work Phone: LA Diameter 3.5 cm [facility] [place] [employer] Work Phone: LA Size Index 1.80 cm/m2 [facility] [employer] Work Phone: LA Volume 2C 61 mL Abnormal 22 - 52 mL [facility] [place] [employer] Work Phone: LA Volume 4C 71 mL Abnormal 22 - 52 mL [facility] [place] [employer] Work Phone: LA Volume A/L 70 mL [facility] [employer] Work Phone: LA Volume BP 65 mL Abnormal 22 - 52 mL [facility] [place] [employer] Work Phone: LA Volume Index 2C 31 mL/m2 16 - 34 mL/m2 [facility] [place] [employer] Work Phone: LA Volume Index 4C 37 mL/m2 Abnormal 16 - 34 mL/m2 [facility] Work Phone: LA Volume Index A/L 36 mL/m2 16 - 34 mL/m2 [facility] Work Phone: LA Volume Index BP 34 ml/m2 16 - 34 ml/m2 [facility] Work Phone: LA/AO Root Ratio 1.46 [facility] Work Phone: LV E' Lateral Velocity 5 cm/s [facility] Work Phone: LV E' Septal Velocity 5 cm/s [facility] Work Phone: LV EDV A2C 109 mL [facility] [place] [employer] Work Phone: LV EDV A4C 89 mL [...] Health Work Phone: LVOT Area 2.3 cm2 [facility] Work Phone: LVOT Cardiac Output 4.8 liter/minute [facility] Work Phone: LVOT Diameter 1.7 cm [facility] Work Phone: LVOT Mean Gradient 4 mmHg [facility] Work Phone: LVOT Peak Gradient 6 mmHg [facility] Work Phone: LVOT Peak Velocity 1.3 m/s [facility] Work Phone: [phone] LVOT Stroke Volume Index 31.0 mL/m2 [facility] Work Phone: LVOT SV 60.1 ml [facility] Work Phone: LVOT VTI 26.5 cm [facility] Work Phone: [phone] LVOT:AV VTI Index 0.64 [facility] Work Phone: LVPWd 1.0 cm Abnormal 0.6 - 0.9 cm [facility] Work Phone: MV A Velocity 1.30 m/s [facility] Work Phone: MV E Velocity 0.91 m/s [facility] Work Phone: MV E Wave Deceleration Time 259.8 ms [facility] Work Phone: MV E/A 0.70 [facility] Work Phone: RA Area 4C 16.2 mL [facility] Work Phone: RV Basal Dimension 2.7 cm [facility] Work Phone: RV Free Wall Peak S' 11 cm/s [facility] Work Phone: RV Mid Dimension 1.5 cm [facility] Work Phone: Sinotubular Junction 2.0 cm [facility] Work Phone: TAPSE 2.0 cm 1.7 cm [facility] Work Phone: [employer] Work Phone: Heart Transthoracicon Left Ventricle: Left [...] PTon 02-10-2024 Inital Evaluation (1) - PT [facility] Physical Therapy [facility] [address] [place] [address]. [address] [place] [address] / REHABILITATION SERVICES INITIAL EVALUATION MR#: [id number] Acct: [id number] Name: YODIT LANDIN Rep #: [id number] : 1955 68 From: Betty Cherry PT. T, OCS Referring Dr.: Dr. Arnold Morton MD Status: REG R Insurance: [facility] ADV LIFE1 SELF PAY INSURANCE Patient's Visit [...] Response: No effect Lumbar Standing: Right Side [place] - Symptoms During Testing: No effect Lumbar Standing: Right Side [place] - Symptoms After Testing: No effect Lumbar Standing: Left Side [place] - Mechanical Response: No effect Lumbar Standing: Left Side [place] - Symptoms During Testing: Increases Lumbar Standing: Left Side [place] - Symptoms After Testing: No worse Balance/Special [...] soft tissue re (more content not included)... [address] 02-09-2024 36 Just refilled to requesting pharmacy in November for a 90 day supply plus one refill. Not due for refill until May 2024. [facility] 36 Prescription Request : Last medication check: 01/21/24 Last physical exam: 04/23/23 Next scheduled appointment: 04/15/24 Last date of refill on this medication 12/03/[address] 02-06-2024 36 Patient scheduled on 03/12/2024 for lab draw recheck. Would not have enough medication to last her for 2 months. Rescheduled her appointment for 02/12/[address] 02-05-2024 36 Prescription Request : Last medication check: 10/22/23 Last physical exam: 04/23/23 Next scheduled appointment: 01/16/24 Last date of refill on this medication 01/16/24 Normal [facility] Urgent Care Visit Reporton 0 02-05-2024 Urgent Care Visit Report [facility] [address], [address] [place] [address] OFFICE VISIT Date of Service: 02/05/24 MR#: [id number] Acct: [id number] Name: YODIT LANDIN Rep #: [id number] : 1955 Provider: KIZZY Negron Age/Sex: 68/F Location: [facility] Status: Signed Intake Vital Signs 01/16/24 11:04 [...] Reasons: SINUS CONGESTION Chief Complaint: SINUS CONGESTION 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 Normal [facility] Office Visiton 01-21-2024 Follow-up visit [id number] Juan Landin 1955 F Date Provider Department Center 01/21/2024 [id number] HEMPHILL [facility] Family History Problem Relation Age of Onset Ovarian cancer Mother Arthritis Father Hearing loss Father Stroke Father Arthritis Brother Hearing loss Brother Hyperlipidemia Brother Family Status - Relation Status Age at Mother Father Brother Level of Service:42742 [place] OFFICE/OUTPATIENT ESTABLISHED MOD MDM 30 MIN Reason for Visit and Comments: Diabetes [34] Normal [facility] PATINSon 01-21-2024 PATINS Bring in research records. -Please call Central Scheduling at [phone] to schedule your outpatient test (CT of lung for lung cancer screening) Normal [facility] Progress Noteon 01-21-2024 Progress Note Improving. Patient t o continue follow-up with podiatry as previously directed. Continue orthotics Normal [facility] Progress Note Noted new murmur on physical examination. Will obtain echocardiogram to further evaluate. Most recent EKG in August 2023 (preop)- sinus rhythm. Denies any shortness of breath or chest pain. Normal [facility] Progress Note Uncontrolled. Recent change in levothyroxine dose increased to 100 mcg daily. Recommend starting new dosing and rechecking TSH in 8 weeks Normal [facility] Progress Note Mild elevation in bl ood pressure today. 146/80. Continue current medications Avapro 300 mg daily, chlorthalidone 25 mg daily, follow-up as directed. Normal [facility] Progress Note Controlled, continue metformin 1000 mg twice daily Normal [facility] Progress Note Follow-up with media reconciliation specialist as directed. Normal [facility] Progress Note Health Maintenance Addressed with Patient at Visit: Micro-pended Hep A- declined Lung CT-pended RSV-declined DM dental- 2 years ago AWV- beto'd 05/04/24 Printed and faxed orders to [facility]: Mammogram Echo CT Lung Normal [facility] Progress Note 01/21/2024 Yodit Landin (: 1955) is a 68 y.o. female , Established patient, here for evaluation of the following chief complaint(s): Diabetes And follow-up chronic conditions presents today for med check and follow-up on chronic conditions. ASSESSMENT/PLAN: 1. Type 2 diabetes mellitus without complication, without long-term current use of insulin ([facility] ([facility]) Assessment & Plan: Controlled, continue metformin 1000 mg twice daily Orders: - Microalbumin / creatinine, urine ratio 2. Hypothyroidism, unspecified type Assessment & Plan: Uncontrolled. Recent change in levothyroxine dose increased to 100 mcg daily. Recommend starting new dosing and rechecking TSH in 8 weeks 3. Degenerative disc disease, lumbar Assessment & Plan: Follow-up with media reconciliation specialist as directed. 4. Iron deficiency anemia, [...] Continue orthotics Follow up for 3 month [facility]. SUBJECTIVE/OBJECTIVE: HPI - Yodit Landin (: 1955) is a 68 y.o. 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 Marroquin (ortho-spine), for lumbar pain, is getting a MRI, and starting physical at [facility] in [place], still seeing chiropractor. States that she might end up getting back surgery. Denies any significant change in her symptoms, denies any bowel or bladder changes Foot pain-sees Dr. Brenner in [facility]- has inserts now and that is [...] Historical Provider, ergocalciferol (Vitamin D-2) 1.25 MG (64483 UT) capsule Take 1 capsule (1.25 mg) by mouth 1 (one) time per week. 01/16/24 04/09/24 Yes SedrickASAF Longoria CNP ferrous sulfate 325 (65 Fe) MG tablet Take 325 mg by mouth every other day. Yes Historical Provider, furosemide (Lasix) 20 MG tablet TAKE 1 TABLET BY MOUTH DAILY 12/29/23 Yes ASAF Ramos CNP indomethacin (Indo (more content not included)... Normal [facility] 36on 01-15-2023 36 Patient is agreeable , scheduled in 8 weeks, orders and med pended, pharmacy verified. Please update sig for B12 as well. 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 Orthopedic Visit Reporton Orthopedic Visit Report [facility] [address] [place] [address] OFFICE VISIT Date of Service: 01/16/24 MR#: [id number] Acct: [id number] Name: YODIT LANDIN Rep #: [id number] : 1955 Provider: Dr. Arnold Morton MD Age/Sex: 68/F Location: [facility] Status: Signed Intake Vital Signs 07/01/23 17:47 [...] topical topical 01/16/24 01/16/24 History cream omega 1-doa-ifq-fish oil 1,200 mg cap PO 01/16/24 01/16/24 [...] and had a PT on site at [facility] who would adjust her hips when [...] Physical Therapy Referra (more content not included)... [facility] 3601-15-2024 36 ----- Message from 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, ASAF - SHOT EXAMINER sent at 01/15/2024 4:16 PM EDT ----- Iron and TIBC still low normal range however gradually improving CBC-slight improvement in hemoglobin Ferritin-unchanged TSH-elevated, meaning we need to adjust the levothyroxine, recommend increasing to 100 mcg daily and rechecking in 8 weeks [id number] slightly elevated, may reduce B12 supplement to every other day Folate-normal Transferrin-normal Back to Top Vit d low- 25, recommend vitamin D 50,000 international units once weekly x 12 weeks, then 2000 international units daily [id number] (please see other results) Left a message [...] then no nurse visit is needed. Thanks! [facility] Progress Noteon 01-14-2024 Progress Note Venipuncture complet ed by [facility]. [facility] 36on 12-29-2023 36 Reviewed chart. Refi ll appropriate. RX sent. [place] [address] Prescription Request : Last date of refill on this medication Sent 10/22/23 to [facility] 90 day [address] [facility] 36on 12-26-2023 36 Spoke to patient, no questions. [place] [address]on 12-25-2023 [address] would fill out the form, since they are the ones ordering it. [facility] 36 Name of caller: Juan salgado Contact phone number: [phone] Relationship to Patient: patient Provider: 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 [...] business hours to return their call: Yes [facility] 36on 12-24-2023 36 Name of caller: Juan Landin Contact phone number: [phone] Relationship to Patient: patient Provider: Dr. Key Practice: [facility] Chief Complaint/Reason for Call: Patient is returning call from office regarding x-ray results. Please call patient back to discuss results. Please advise, thank you. Best time of day caller can be reached: Any Patient advised that office/PCP has 24-48 business hours to return their call: Yes [facility] 36 LM for pt to return call [place] [address] ----- Message from ASAF Ramos CNP sent [...] disc disease- recommend evaluation by orthospine doctor. [place] [id number] Jimenez had to be mailed out-no fax number provided on website, attempted calling them and no answer and unable to leave voicemail (recording kept rotating). My chart message sent to patient with list of [employer] Wildlife Specialist that accept her insurance advised her to please let us know who she would like us to put a referral in for and to call them to be sure they accept her insurance. [facility] 36on 12-11-2023 36 Please see if we can get records from Dr. Trena Jimenez, chiropractor in [place]. Patient thinks she had imaging done in 2019? That Dr. Jimenez had ordered. Also would like Dr. Jimenez's last treatment plan Also- does she have anyone in mind for podiatry? She can check with her insurance to see who else is in network for her and I can make the referral if needed. [facility] 36on 12-10-2023 36 Patient stopped in today [...] someone would be in touch. Thank you! [facility] 36on 12-09-2023 36 Spoke to Yodit, send to [facility] please. Thanks! [facility] 36 What pharmacy does s he want this sent to [place] [address] Spoke to mariely Monsivais that her old doctor from [place], Dr. Cailtin Hope, was the one who prescribed it for her last, and gave her 23 refills. States that since she is no longer down in [place], she cannot get it filled through them. 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 [facility] 36 Refused, this does n ot look like we ever prescribed the medication [facility] 36 Prescription Request : Last medication check: 10/22/2023 Last physical exam: 04/23/2023 Next scheduled appointment: 01/21/2024 Last date of refill on this medication: 10/22/[address] [facility] Absolute lymphocyte countOrd ered By: Juan Jose Stallworth on 07-01-2023 Lymphocytes Auto (Unsp spec) [#/Vol] 2.12 10*3/uL 0.83-4.[address] [facility] Automated lymphocyte count a s percentage of total leukocytesOrdered By: Juan Jose Stallworth on 07-01-2023 Lymphocytes/100 WBC Auto (Unsp spec) 31.6 % 19-[address] [facility] Basophil percentageOrdered B y: Juan Jose Stallworth on 07-01-2023 Basophil percentage 5-10 SEEN /hpf 0-5 [facility] Basophils/100 WBC (Bld) 0.3 % 0-[address] [facility] Chloride [Moles/Vol] 99 mmol/L 98-107 [facility] Eosinophils/100 WBC (Bld) 3.6 % 0-[address] [facility] Glucose [Mass/Vol] 123 mg/dL 74-106 [facility] Comment on above: Fasting Glucose resu lt from 100 to 125 mg/dL suggests IMPAIRED HOMEOSTASIS per A.D.A. criteria. Hemoglobin (Bld) [Mass/Vol] 12.0 g/dL 12.0-15.[address] [facility] Monocytes/100 WBC (Bld) 12.1 % 0-[address] [facility] Neutrophils (Bld) [#/Vol] 3.5 10*3/uL 2.0-7.[address] [facility] Neutrophils/100 WBC (Bld) 52.3 % 47-[address] [facility] Potassium [Moles/Vol] 3.5 mmol/L 3.5-5.1 [facility] Sodium [Moles/Vol] 133 mmol/L 136-145 [facility] WBC (Bld) [#/Vol] 6.7 10*3/uL 4.4-11.0 [facility] Bilirubin Test strip Ql (U)O rdered By: Juan Jose Stallworth on 07-01-2023 Bilirubin Ql (U) 1 mg/dL Negative [facility] Comment on above: COLOR OF URINE MAY A FFECT DIPSTICK RESULTS. Determination of erythrocyte mean corpuscular volume (MCV)Ordered By: Juan Jose Stallworth on 07-01-2023 MCV (RBC) [Entitic vol] 89.3 fL 81-[address] [facility] Erythrocyte distribution wid th ratioOrdered By: Juan Jose Stallworth on 07-01-2023 Erythrocyte distribution width (RBC) [Ratio] 13.5 % 11.6-14.[address] [facility] Erythrocyte distribution wid th standard deviationOrdered By: Juan Jose Stallworth on 07-01-2023 Erythrocyte distribution width (RBC) [Entitic vol] 44.1 fL 35.1-43.[address] [facility] Hematocrit Auto (Bld) [Volum e fraction]Ordered By: Juan Jose Stallworth on 07-01-2023 Hematocrit (Bld) [Volume fraction] 35.9 % 37-[address] [facility] Immature granulocytes/100 WB C Auto (Bld)Ordered By: Juan Jose Stallworth on 07-01-2023 Immature granulocytes/100 WBC (Bld) 0.100 % 0.0-0.[address] [facility] Comment on above: IG% - Immature Granu locytes (promyelocytes, myelocytes and metamyelocytes) > 1% indicates that a LEFT SHIFT is Present. Ketones Test strip Ql (U)Ord ered By: Juan Jose Stallworth on 07-01-2023 Ketones Ql (U) 5 mg/dl Negative [facility] Laboratory - Chemistry and C hemistry - challengeOrdered By: Juan Jose Stallworth on 07-01-2023 CO2 [Moles/Vol] 27.0 mmol/L 21.0-32.[address] [facility] Urea nitrogen/Creatinine [Mass ratio] 20.3 mg/mg 10-[address] [facility] Laboratory - Hematology and Cell countsOrdered By: Juan Jose Stallworth on 07-01-2023 MCH (RBC) [Entitic mass] 29.9 pg 27.0-32.[address] [facility] MCHC (RBC) [Mass/Vol] 33.4 g/dL 32-36 [facility] Nucleated RBC/100 WBC (Bld) [Ratio] 0 % 0-[address] [facility] Platelet mean volume (Bld) [Entitic vol] 9.7 fL 6.2-12.[address] [facility] Platelets (Bld) [#/Vol] 192 10*3/uL 150-[address] [facility] Mucus LM Ql (Urine sed)Order ed By: Juan Jose Stallworth on 07-01-2023 Mucus Ql (Urine sed) 0 SEEN /hpf [facility] Nitrite Test strip Ql (U)Ord ered By: Juan Jose Stallworth on 07-01-2023 Nitrite Ql (U) Negative Negative [facility] No Panel InformationOrdered By: Juan Jose Stallworth on 07-01-2023 Urine RBC 0 SEEN /hpf 0-[address] [facility] Estimated Creatinine Clearance Calc 27.28 ml/min [facility] Estimated GFR (MDRD) Amer 35 mL/min >[address] [facility] Comment on above: GFR Calc Estimated GFR (MDRD) Non-Af Amer 29 mL/min >[address] [facility] Comment on above: Non- GFR Calc Protein Test strip Ql (U)Ord ered By: Juan Jose Stallworth on 07-01-2023 Protein Ql (U) 15 mg/dl Negative [facility] RBC Auto (Bld) [#/Vol]Ordere d By: Juan Jose Stallworth on 07-01-2023 RBC (Bld) [#/Vol] 4.02 10*6/uL 4.2-5.4 [facility] Serum or plasma calcium bettina urement (mass/volume)Ordered By: Juan Jose Stallworth on 07-01-2023 Calcium [Mass/Vol] 8.7 mg/dL 8.5-10.1 [facility] Serum or plasma creatinine m easurement (mass/volume)Ordered By: Juan Jose Stallworth on 07-01-2023 Creatinine [Mass/Vol] 1.82 mg/dL 0.55-1.02 [facility] Comment on above: The validity of the calculated GFR & GFRAA in patients over 70 years has not been determined. Clinical correlation is essential. Serum or plasma urea nitroge n measurement (mass/volume)Ordered By: Juan Jose Stallworth on 07-01-2023 Urea nitrogen [Mass/Vol] 37 mg/dL 7-[address] [facility] Squamous epithelial cells de tection in urine sediment by light microscopyOrdered By: Juan Jsoe Stallworth on 07-01-2023 Epithelial cells.squamous LM Ql (Urine sed) 0-5 SEEN /hpf 5-[address] [facility] Thin prep Papanicolaou smear with manual screeningOrdered By: Juan Jose Stallworth on 07-01-2023 Thin prep Papanicolaou smear with manual screening 7 5-[address] [facility] Urine blood detectionOrdered By: Juan Jose Stallworth on 07-01-2023 RBC Ql (U) Negative Negative [facility] Urine clarityOrdered By: Reyes Stallworth on 07-01-2023 Clarity (U) Sl. Cloudy Clear [facility] Urine color determinationOrd ered By: Juan Jose Stallworth on 07-01-2023 Color (U) Yellow Yellow [facility] Urine glucose detectionOrder ed By: Juan Jose Stallworth on 07-01-2023 Glucose Ql (U) Normal mg/dl Normal [facility] Urine leukocyte esterase det ection by dipstickOrdered By: Juan Jose Stallworth on 07-01-2023 Leukocyte esterase Test strip Ql (U) 100 /ul Negative [facility] Urine pHOrdered By: Juan Jose randhawa on 07-01-2023 pH (U) 5.0 [pH] 5.0 - 8.[address] [facility] Urine sediment bacteria coun t by microscopy (number/high power field)Ordered By: Juan Jose Stallworth on 07-01-2023 Bacteria LM.HPF (Urine sed) [#/Area] 0 /[HPF] None Seen [facility] Urine specific gravity measu rementOrdered By: Juan Jose Stallworth on 07-01-2023 Specific gravity (U) [Rel density] 1.020 1.002-1.[address] [facility] Urine urobilinogen measureme ntOrdered By: Juan Jose Stallworth on 07-01-2023 Urobilinogen Ql (U) 4 mg/dl Normal [facility] XR WRIST MINIMUM 3 VIEWS RIG HTon [...] 06/07/2023 7:22:26 AM Ordering Provider: SEDRICK HEMPHILL [facility] Vital Signs Date Time Vital Sign Value Performing Clinician Facility 06-28-2024 10:00-0500 Diastolic blood pressure 81 mm[Hg] 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 LIQUOR GRINDER MILL OPERATOR - SHOT EXAMINER Work Phone: [facility] 06-28-2024 10:00-0500 Systolic blood pressure 140 mm[Hg] 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 LIQUOR GRINDER MILL OPERATOR - SHOT EXAMINER Work Phone: [facility] [place] [employer] 06-28-2024 09:30-0500 Body mass index (BMI) [Ratio] 35.95 kg/m2 Sedrick Bridenthal LIQUOR GRINDER MILL OPERATOR - SHOT EXAMINER Work Phone: [facility] [place] [employer] 06-28-2024 09:30-0500 Body weight 93.53 kg Sedrick Bridenthal LIQUOR GRINDER MILL OPERATOR - SHOT EXAMINER Work Phone: [facility] [place] [employer] 06-28-2024 09:30-0500 Heart rate 83 /min Sedrick Bridenthal LIQUOR GRINDER MILL OPERATOR - SHOT EXAMINER Work Phone: [facility] [place] [employer] 06-28-2024 09:30-0500 Respiratory rate 24 /min Sedrick Bridenthal LIQUOR GRINDER MILL OPERATOR - SHOT EXAMINER Work Phone: [facility] [place] [employer] 06-28-2024 09:30-0500 SaO2% (BldA) [Mass fraction] 98 % Sedrick Bridenthal LIQUOR GRINDER MILL OPERATOR - SHOT EXAMINER Work Phone: [facility] [place] [employer] 05-25-2024 10:47-0500 Body mass index (BMI) [Ratio] 35.08 kg/m2 Sedrick Bridenthal LIQUOR GRINDER MILL OPERATOR - SHOT EXAMINER Work Phone: [facility] [place] [employer] 05-25-2024 10:47-0500 Body temperature 97.7 [degF] Sedrick Bridenthal LIQUOR GRINDER MILL OPERATOR - SHOT EXAMINER Work Phone: [facility] [place] [employer] 05-25-2024 10:47-0500 Body weight 91.26 kg Sedrick Bridenthal LIQUOR GRINDER MILL OPERATOR - SHOT EXAMINER Work Phone: [facility] [place] [employer] 05-25-2024 10:47-0500 Diastolic blood pressure 73 mm[Hg] Sedrick Bridenthal LIQUOR GRINDER MILL OPERATOR - SHOT EXAMINER Work Phone: [facility] [place] [employer] 05-25-2024 10:47-0500 Heart rate 109 /min Sedrick Bridenthal LIQUOR GRINDER MILL OPERATOR - SHOT EXAMINER Work Phone: [facility] [place] [employer] 05-25-2024 10:47-0500 Respiratory rate 20 /min Sedrick Bridenthal LIQUOR GRINDER MILL OPERATOR - SHOT EXAMINER Work Phone: [employer] [place] [employer] 05-25-2024 10:47-0500 SaO2% (BldA) [Mass fraction] 96 % Sedrick Bridenthal LIQUOR GRINDER MILL OPERATOR - SHOT EXAMINER Work Phone: [employer] [place] [employer] 05-25-2024 10:47-0500 Systolic blood pressure 119 mm[Hg] Sedrick Bridenthal LIQUOR GRINDER MILL OPERATOR - SHOT EXAMINER Work Phone: [employer] [place] [employer] 05-04-2024 09:49-0500 Diastolic blood pressure 79 mm[Hg] Moshe Key MD Work Phone: [employer] [place] [employer] 05-04-2024 09:49-0500 Heart rate 78 /min Moshe Key MD Work Phone: [facility] [place] [employer] 05-04-2024 09:49-0500 Systolic blood pressure 134 mm[Hg] Moshe Key MD Work Phone: [facility] [place] [employer] 05-04-2024 09:13-0500 Body height 161.3 cm Moshe Key MD Work Phone: [facility] [place] [employer] 05-04-2024 09:13-0500 Body mass index (BMI) [Ratio] 35.61 kg/m2 Moshe Key MD Work Phone: [facility] [place] [employer] 05-04-2024 09:13-0500 Body weight 92.63 kg Moshe Key MD Work Phone: [facility] [place] [employer] 05-04-2024 09:13-0500 SaO2% (BldA) [Mass fraction] 96 % Moshe Key MD Work Phone: [facility] [place] [employer] 03-09-2024 11:10-0400 Heart rate 76 /min Sedrick Bridenthal LIQUOR GRINDER MILL OPERATOR - SHOT EXAMINER Work Phone: [facility] [place] [employer] Comment on above: apical 03-09-2024 10:57-0400 Body height 161.3 cm Sedrick Bridenthal LIQUOR GRINDER MILL OPERATOR - SHOT EXAMINER Work Phone: [facility] [place] [employer] 03-09-2024 10:57-0400 Body mass index (BMI) [Ratio] 35.33 kg/m2 Sedrick Karrieenthal LIQUOR GRINDER MILL OPERATOR - SHOT EXAMINER Work Phone: [facility] [place] [employer] 03-09-2024 10:57-0400 Body temperature 98.01 [degF] Sedrick Bridenthal LIQUOR GRINDER MILL OPERATOR - SHOT EXAMINER Work Phone: [facility] [place] [employer] 03-09-2024 10:57-0400 Body weight 91.9 kg Sedrick Bridenthal LIQUOR GRINDER MILL OPERATOR - SHOT EXAMINER Work Phone: [facility] [place] [employer] 03-09-2024 10:57-0400 Diastolic blood pressure 76 mm[Hg] Sedrick Bridenthal LIQUOR GRINDER MILL OPERATOR - SHOT EXAMINER Work Phone: [facility] [place] [employer] 03-09-2024 10:57-0400 Respiratory rate 18 /min Sedrick Bridenthal LIQUOR GRINDER MILL OPERATOR - SHOT EXAMINER Work Phone: [facility] [place] [employer] 03-09-2024 10:57-0400 SaO2% (BldA) [Mass fraction] 97 % Sedrick Bridenthal LIQUOR GRINDER MILL OPERATOR - SHOT EXAMINER Work Phone: [facility] [place] [employer] 03-09-2024 10:57-0400 Systolic blood pressure 146 mm[Hg] Sedrick Bridenthal LIQUOR GRINDER MILL OPERATOR - SHOT EXAMINER Work Phone: [facility] [place] [employer] 02-23-2024 11:17-0400 Body height 161.3 cm Sedrick Bridenthal LIQUOR GRINDER MILL OPERATOR - SHOT EXAMINER Work Phone: [facility] [place] [employer] 02-23-2024 11:17-0400 Body mass index (BMI) [Ratio] 34 kg/m2 Sedrick Bridenthal LIQUOR GRINDER MILL OPERATOR - SHOT EXAMINER Work Phone: [facility] [place] [employer] 02-23-2024 11:17-0400 Body weight 88.45 kg Sedrick Bridenthal LIQUOR GRINDER MILL OPERATOR - SHOT EXAMINER Work Phone: [facility] [place] [employer] 02-12-2024 14:31-0400 Body height 160 cm Sedrick Bridenthal LIQUOR GRINDER MILL OPERATOR - SHOT EXAMINER Work Phone: [facility] [place] [employer] 02-12-2024 14:31-0400 Body mass index (BMI) [Ratio] 35.78 kg/m2 Sedrick Bridenthal LIQUOR GRINDER MILL OPERATOR - SHOT EXAMINER Work Phone: [facility] [place] [employer] 02-12-2024 14:31-0400 Body weight 91.63 kg Sedrick Bridenthal LIQUOR GRINDER MILL OPERATOR - SHOT EXAMINER Work Phone: [facility] [place] [employer] 01-21-2024 11:19-0400 Diastolic blood pressure 80 mm[Hg] Sedrick Bridenthal LIQUOR GRINDER MILL OPERATOR - SHOT EXAMINER Work Phone: [facility] [place] [employer] 01-21-2024 11:19-0400 Systolic blood pressure 146 mm[Hg] Sedrick Bridenthal LIQUOR GRINDER MILL OPERATOR - SHOT EXAMINER Work Phone: [facility] [place] [employer] 01-21-2024 10:18-0400 Body mass index (BMI) [Ratio] 35.92 kg/m2 Sedrick Bridenthal LIQUOR GRINDER MILL OPERATOR - SHOT EXAMINER Work Phone: [facility] [place] [employer] 01-21-2024 10:18-0400 Body temperature 98.29 [degF] Sedrick Bridenthal LIQUOR GRINDER MILL OPERATOR - SHOT EXAMINER Work Phone: [facility] [place] [employer] 01-21-2024 10:18-0400 Body weight 91.99 kg Sedrick Bridenthal LIQUOR GRINDER MILL OPERATOR - SHOT EXAMINER Work Phone: [facility] [place] [employer] 01-21-2024 10:18-0400 Heart rate 101 /min Sedrick Bridenthal LIQUOR GRINDER MILL OPERATOR - SHOT EXAMINER Work Phone: [facility] [place] [employer] 01-21-2024 10:18-0400 Respiratory rate 20 /min Sedrick Bridenthal LIQUOR GRINDER MILL OPERATOR - SHOT EXAMINER Work Phone: [facility] [place] [employer] 01-21-2024 10:18-0400 SaO2% (BldA) [Mass fraction] 97 % Sedrick Bridenthal LIQUOR GRINDER MILL OPERATOR - SHOT EXAMINER Work Phone: [facility] [place] [employer] 12-01-2023 09:29-0400 Diastolic blood pressure 80 mm[Hg] Sedrick Bridenthal LIQUOR GRINDER MILL OPERATOR - SHOT EXAMINER Work Phone: [facility] [place] [employer] 12-01-2023 09:29-0400 Heart rate 64 /min Sedrick Karrieenthal LIQUOR GRINDER MILL OPERATOR - SHOT EXAMINER Work Phone: [facility] [place] [employer] 12-01-2023 09:29-0400 Systolic blood pressure 133 mm[Hg] Sedrick Bridenthal LIQUOR GRINDER MILL OPERATOR - SHOT EXAMINER Work Phone: [facility] [place] [employer] 12-01-2023 09:03-0400 Body height 160 cm Sedrick Bridenthal LIQUOR GRINDER MILL OPERATOR - SHOT EXAMINER Work Phone: [facility] [place] [employer] 12-01-2023 09:03-0400 Body mass index (BMI) [Ratio] 35.39 kg/m2 Sedrick Bridenthal LIQUOR GRINDER MILL OPERATOR - SHOT EXAMINER Work Phone: [facility] [place] [employer] 12-01-2023 09:03-0400 Body weight 90.63 kg Sedrick Bridenthal LIQUOR GRINDER MILL OPERATOR - SHOT EXAMINER Work Phone: [facility] [place] [employer] 12-01-2023 09:03-0400 SaO2% (BldA) [Mass fraction] 96 % Sedrick Karrieenthal LIQUOR GRINDER MILL OPERATOR - SHOT EXAMINER Work Phone: [facility] [place] [employer] 11-25-2023 13:02-0400 Body height 160 cm Nadya Biro PA-C Work Phone: [facility] [place] [employer] 11-25-2023 13:02-0400 Body mass index (BMI) [Ratio] 35.78 kg/m2 Nadya Biro PA-C Work Phone: [facility] [place] [employer] 11-25-2023 13:02-0400 Body weight 91.63 kg Nadya Biro PA-C Work Phone: [facility] [place] [employer] 11-25-2023 13:02-0400 Diastolic blood pressure 66 mm[Hg] Nadya Biro PA-C Work Phone: [facility] [place] [employer] 11-25-2023 13:02-0400 Systolic blood pressure 128 mm[Hg] Nadya Biro PA-C Work Phone: [facility] [place] [employer] 10-22-2023 10:16-0400 Body mass index (BMI) [Ratio] 35.89 kg/m2 Sedrick Bridenthal LIQUOR GRINDER MILL OPERATOR - SHOT EXAMINER Work Phone: [facility] [place] [employer] 10-22-2023 10:16-0400 Body temperature 98.4 [degF] Sedrick Bridenthal LIQUOR GRINDER MILL OPERATOR - SHOT EXAMINER Work Phone: [facility] [place] [employer] 10-22-2023 10:16-0400 Body weight 91.9 kg Sedrick Bridenthal LIQUOR GRINDER MILL OPERATOR - SHOT EXAMINER Work Phone: [facility] [place] [employer] 10-22-2023 10:16-0400 Diastolic blood pressure 59 mm[Hg] Sedrick Bridenthal LIQUOR GRINDER MILL OPERATOR - SHOT EXAMINER Work Phone: [facility] [place] [employer] 10-22-2023 10:16-0400 Heart rate 65 /min Sedrick Bridenthal LIQUOR GRINDER MILL OPERATOR - SHOT EXAMINER Work Phone: [facility] [place] [employer] 10-22-2023 10:16-0400 Respiratory rate 18 /min Sedrick Bridenthal LIQUOR GRINDER MILL OPERATOR - SHOT EXAMINER Work Phone: [facility] [place] [employer] 10-22-2023 10:16-0400 SaO2% (BldA) [Mass fraction] 96 % Sedrick Bridenthal LIQUOR GRINDER MILL OPERATOR - SHOT EXAMINER Work Phone: [facility] [place] [employer] 10-22-2023 10:16-0400 Systolic blood pressure 139 mm[Hg] Sedrick Bridenthal LIQUOR GRINDER MILL OPERATOR - SHOT EXAMINER Work Phone: [facility] [place] [employer] 10-14-2023 12:57-0400 Body height 160 cm Nadya Biro PA-C Work Phone: [facility] [place] [employer] 10-14-2023 12:57-0400 Body mass index (BMI) [Ratio] 35.43 kg/m2 Nadya Biro PA-C Work Phone: [facility] [place] [employer] 10-14-2023 12:57-0400 Body weight 90.72 kg Nadya Biro PA-C Work Phone: [facility] [place] [employer] 10-14-2023 12:57-0400 Diastolic blood pressure 78 mm[Hg] Nadya Biro PA-C Work Phone: [facility] [place] [employer] 10-14-2023 12:57-0400 Systolic blood pressure 122 mm[Hg] Nadya Biro PA-C Work Phone: [facility] [place] [employer] 09-16-2023 12:49-0400 Body height 160 cm Nadya Biro PA-C Work Phone: [facility] [place] [employer] 09-16-2023 12:49-0400 Body mass index (BMI) [Ratio] 35.43 kg/m2 Nadya Biro PA-C Work Phone: [facility] [place] [employer] 09-16-2023 12:49-0400 Body weight 90.72 kg Nadya Biro PA-C Work Phone: [facility] [place] [employer] 09-16-2023 12:49-0400 Diastolic blood pressure 74 mm[Hg] Nadya Biro PA-C Work Phone: [facility] [place] [employer] 09-16-2023 12:49-0400 Systolic blood pressure 126 mm[Hg] Nadya Biro PA-C Work Phone: [facility] [place] [employer] 09-04-2023 10:18-0400 Body height 160 cm Sedrick Bridenthal LIQUOR GRINDER MILL OPERATOR - SHOT EXAMINER Work Phone: [facility] [place] [employer] 09-04-2023 10:18-0400 Body mass index (BMI) [Ratio] 36.67 kg/m2 Sedrick Bridenthal LIQUOR GRINDER MILL OPERATOR - SHOT EXAMINER Work Phone: [facility] [place] [employer] 09-04-2023 10:18-0400 Body weight 93.89 kg Sedrick Bridenthal LIQUOR GRINDER MILL OPERATOR - SHOT EXAMINER Work Phone: [facility] [place] [employer] 09-04-2023 10:18-0400 Diastolic blood pressure 74 mm[Hg] Sedrick Bridenthal LIQUOR GRINDER MILL OPERATOR - SHOT EXAMINER Work Phone: [facility] [place] [employer] 09-04-2023 10:18-0400 Heart rate 82 /min Sedrick Bridenthal LIQUOR GRINDER MILL OPERATOR - SHOT EXAMINER Work Phone: [facility] [place] [employer] 09-04-2023 10:18-0400 SaO2% (BldA) [Mass fraction] 94 % Sedrick Bridchristina LIQUOR GRINDER MILL OPERATOR - SHOT EXAMINER Work Phone: [facility] [place] [employer] 09-04-2023 10:18-0400 Systolic blood pressure 123 mm[Hg] 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 [employer]QU[employer] GRINDER MILL OPERATOR - SHOT EXAMINER Work Phone: [facility] 09-03-2023 10:55-0400 Heart rate 74 /min Austin Leos MD Work Phone: [facility] 09-03-2023 10:55-0400 SaO2% (BldA) [Mass fraction] 98 % Austin Leos MD Work Phone: [facility] [place] [employer] 09-03-2023 10:45-0400 Diastolic blood pressure 56 mm[Hg] Austin Leos MD Work Phone: [facility] 09-03-2023 10:45-0400 Systolic blood pressure 101 mm[Hg] Austin Leos MD Work Phone: [facility] 09-03-2023 10:35-0400 Respiratory rate 16 /min Austin Leos MD Work Phone: [facility] 09-03-2023 07:56-0400 Body height 160 cm Austin Leos MD Work Phone: [facility] 09-03-2023 07:56-0400 Body mass index (BMI) [Ratio] 35.43 kg/m2 Austin Leos MD Work Phone: [facility] 09-03-2023 07:56-0400 Body temperature 97.81 [degF] Austin Leos MD Work Phone: [facility] 09-03-2023 07:56-0400 Body weight 90.72 kg Austin Leos MD Work Phone: [facility] 08-05-2023 13:04-0400 Body height 161.3 cm Austin Leos MD Work Phone: [facility] [place] [employer] 08-05-2023 13:04-0400 Body mass index (BMI) [Ratio] 33.83 kg/m2 Austin Leos MD Work Phone: [facility] [place] [employer] 08-05-2023 13:04-0400 Body weight 88 kg Austin Leos MD Work Phone: [facility] [place] [employer] 08-05-2023 13:04-0400 Diastolic blood pressure 68 mm[Hg] Austin Leos MD Work Phone: [facility] [place] [employer] 08-05-2023 13:04-0400 Systolic blood pressure 104 mm[Hg] Austin Leos MD Work Phone: [facility] [place] [employer] 07-24-2023 10:02-0500 Body mass index (BMI) [Ratio] 34.39 kg/m2 Sedrick Bridenthal LIQU[employer] GRINDER MILL OPERATOR - SHOT EXAMINER Work Phone: [facility] [place] [employer] 07-24-2023 10:02-0500 Body temperature 98.2 [degF] Sedrick Bridenthal LIQUOR GRINDER MILL OPERATOR - SHOT EXAMINER Work Phone: [facility] [place] [employer] 07-24-2023 10:02-0500 Body weight 90.27 kg Sedrick Bridenthal LIQUOR GRINDER MILL OPERATOR - SHOT EXAMINER Work Phone: [employer] [place] [employer] 07-24-2023 10:02-0500 Diastolic blood pressure 60 mm[Hg] Sedrick Bridenthal LIQUOR GRINDER MILL OPERATOR - SHOT EXAMINER Work Phone: [facility] [place] [employer] 07-24-2023 10:02-0500 Heart rate 50 /min Sedrick Bridenthal LIQUOR GRINDER MILL OPERATOR - SHOT EXAMINER Work Phone: [facility] [place] [employer] 07-24-2023 10:02-0500 Respiratory rate 24 /min Sedrick Bridenthal LIQUOR GRINDER MILL OPERATOR - SHOT EXAMINER Work Phone: [facility] [place] [employer] 07-24-2023 10:02-0500 SaO2% (BldA) [Mass fraction] 99 % Sedrick Bridenthal LIQUOR GRINDER MILL OPERATOR - SHOT EXAMINER Work Phone: [facility] [place] [employer] 07-24-2023 10:02-0500 Systolic blood pressure 96 mm[Hg] Sedrick Bridenthal LIQUOR GRINDER MILL OPERATOR - SHOT EXAMINER Work Phone: [facility] 07-01-2023 20:00-0500 Diastolic blood pressure 74 mm[Hg] PA Gerry Gray PA Work Phone: [facility] 07-01-2023 20:00-0500 Heart rate 72 /min PA Gerry Gray PA Work Phone: [facility] 07-01-2023 20:00-0500 Respiratory rate 16 /min PA Gerry Gray PA Work Phone: [facility] 07-01-2023 20:00-0500 SaO2% (BldA) [Mass fraction] 98 % PA Gerry Gray PA Work Phone: [facility] 07-01-2023 20:00-0500 Systolic blood pressure 116 mm[Hg] PA Gerry Gray PA Work Phone: [facility] 07-01-2023 17:47-0500 Body height 160.02 cm PA Gerry Gray PA Work Phone: [facility] 07-01-2023 17:47-0500 Body mass index (BMI) [Ratio] 26.3 kg/m2 PA Gerry Gray PA Work Phone: [facility] 07-01-2023 17:47-0500 Body temperature 96.7 [degF] PA Gerry Gray PA Work Phone: [facility] 07-01-2023 17:47-0500 Body weight 67.44 kg PA Gerry Gray PA Work Phone: [facility] 07-01-2023 17:03-0500 Body mass index (BMI) [Ratio] 34.3 kg/m2 PA Gerry Gray PA Work Phone: [facility] 07-01-2023 17:03-0500 Body temperature 98.2 [degF] PA Gerry Gray PA Work Phone: [facility] 07-01-2023 17:03-0500 Body weight 87.99 kg PA Gerry Gray PA Work Phone: [facility] 07-01-2023 17:03-0500 Diastolic blood pressure 82 mm[Hg] PA Gerry DURAND Work Phone: [facility] 07-01-2023 17:03-0500 Heart rate 98 /min PA Gerry DURAND Work Phone: [facility] 07-01-2023 17:03-0500 Respiratory rate 14 /min PA Gerry DURAND Work Phone: [facility] 07-01-2023 17:03-0500 SaO2% (BldA) [Mass fraction] 93 % PA Gerry Gray PA Work Phone: [facility] 07-01-2023 17:03-0500 Systolic blood pressure 142 mm[Hg] PA Gerry Gray PA Work Phone: [facility] 06-04-2023 13:40-0500 Diastolic blood pressure 78 mm[Hg] Sedrick Bridenthal LIQUOR GRINDER MILL OPERATOR - SHOT EXAMINER Work Phone: [facility] [place] [employer] 06-04-2023 13:40-0500 Systolic blood pressure 131 mm[Hg] Sedrick Bridenthal LIQUOR GRINDER MILL OPERATOR - SHOT EXAMINER Work Phone: [facility] [place] [employer] 06-04-2023 13:11-0500 Body mass index (BMI) [Ratio] 35.26 kg/m2 Sedrick Bridenthal LIQU[employer] GRINDER MILL OPERATOR - SHOT EXAMINER Work Phone: [facility] [place] [employer] 06-04-2023 13:11-0500 Body temperature 98.4 [degF] Sedrick Bridenthal LIQUOR GRINDER MILL OPERATOR - SHOT EXAMINER Work Phone: [facility] [place] [employer] 06-04-2023 13:11-0500 Body weight 92.53 kg Sedrick Bridenthal LIQUOR GRINDER MILL OPERATOR - SHOT EXAMINER Work Phone: [facility] [place] [employer] 06-04-2023 13:11-0500 Heart rate 78 /min Sedrick Bridenthal LIQUOR GRINDER MILL OPERATOR - SHOT EXAMINER Work Phone: [facility] [place] [employer] 06-04-2023 13:11-0500 Respiratory rate 24 /min Sedrick Bridenthal LIQUOR GRINDER MILL OPERATOR - SHOT EXAMINER Work Phone: [facility] [place] [employer] 06-04-2023 13:11-0500 SaO2% (BldA) [Mass fraction] 98 % Sedrick Bridenthal LIQU[employer] GRINDER MILL OPERATOR - SHOT EXAMINER Work Phone: [facility] [place] [employer] 04-23-2023 10:06-0500 Body height 162 cm Sedrick Bridenthal LIQU[employer] GRINDER MILL OPERATOR - SHOT EXAMINER Work Phone: [facility] [place] [employer] 04-23-2023 10:06-0500 Body mass index (BMI) [Ratio] 34.74 kg/m2 Sedrick Bridenthal LIQU[employer] GRINDER MILL OPERATOR - SHOT EXAMINER Work Phone: [facility] [place] [employer] 04-23-2023 10:06-0500 Body temperature 97.81 [degF] Sedrick Bridenthal LIQUOR GRINDER MILL OPERATOR - SHOT EXAMINER Work Phone: [facility] [place] [employer] 04-23-2023 10:06-0500 Body weight 91.17 kg Sedrick Bridenthal LIQUOR GRINDER MILL OPERATOR - SHOT EXAMINER Work Phone: [facility] [place] [employer] 04-23-2023 10:06-0500 Diastolic blood pressure 87 mm[Hg] Sedrick Bridenthal LIQUOR GRINDER MILL OPERATOR - SHOT EXAMINER Work Phone: [facility] [place] [employer] 04-23-2023 10:06-0500 Heart rate 89 /min Sedrick Bridenthal LIQUOR GRINDER MILL OPERATOR - SHOT EXAMINER Work Phone: [facility] [place] [employer] 04-23-2023 10:06-0500 Respiratory rate 20 /min Sedrick Bridenthal LIQUOR GRINDER MILL OPERATOR - SHOT EXAMINER Work Phone: [facility] [place] [employer] 04-23-2023 10:06-0500 SaO2% (BldA) [Mass fraction] 93 % Sedrick Bridenthal LIQUOR GRINDER MILL OPERATOR - SHOT EXAMINER Work Phone: [facility] [place] [employer] 04-23-2023 10:06-0500 Systolic blood pressure 153 mm[Hg] Sedrick Bridenthal LIQUOR GRINDER MILL OPERATOR - SHOT EXAMINER Work Phone: [facility] [place] [employer] 04-02-2023 12:45-0500 Diastolic blood pressure 78 mm[Hg] Sedrick Bridenthal LIQUOR GRINDER MILL OPERATOR - SHOT EXAMINER Work Phone: [facility] 04-02-2023 12:45-0500 Systolic blood pressure 132 mm[Hg] Sedrick Bridenthal LIQUOR GRINDER MILL OPERATOR - SHOT EXAMINER Work Phone: [facility] 04-02-2023 11:07-0500 Body temperature 98.01 [degF] Sedrick Bridenthal LIQUOR GRINDER MILL OPERATOR - SHOT EXAMINER Work Phone: [facility] 04-02-2023 11:07-0500 Body weight 92.08 kg Sedrick Bridenthal LIQUOR GRINDER MILL OPERATOR - SHOT EXAMINER Work Phone: [facility] 04-02-2023 11:07-0500 Heart rate 78 /min Sedrick Bridenthal LIQU[employer] GRINDER MILL OPERATOR - SHOT EXAMINER Work Phone: [facility] 04-02-2023 11:07-0500 Respiratory rate 24 /min Sedrick Bridenthal LIQUOR GRINDER MILL OPERATOR - SHOT EXAMINER Work Phone: [facility] 04-02-2023 11:07-0500 SaO2% (BldA) [Mass fraction] 98 % Sedrick Bridenthal LIQUOR GRINDER MILL OPERATOR - SHOT EXAMINER Work Phone: [facility] Encounters Encounter Date Encounter Type Care Provider Facility Start: 11-30-2024 End: 11-30-2024 Refill Sedrick Bridenthal LIQU[employer] GRINDER MILL OPERATOR - SHOT EXAMINER Work Phone: [facility] Clinical Communication Comment on above: Hypothyroidism, unsp ecified type Start: 11-10-2024 End: 11-10-2024 Refill Sedrick Bridenthal LIQU[employer] GRINDER MILL OPERATOR - SHOT EXAMINER Work Phone: [facility] Comment on above: Gastroesophageal ref lux disease without esophagitis; Swelling of both lower extremities Start: 09-23-2024 End: 09-23-2024 ambulatory [facility] Facility:[facility] Start: 09-22-2024 End: 09-22-2024 Refill Moshe Key MD Work Phone: [facility] Comment on above: Hypothyroidism, unsp ecified type Start: 09-02-2024 End: 09-02-2024 Refill Jessica Smith [employer]QUOR GRINDER MILL OPERATOR - SHOT EXAMINER Work Phone: [facility] Comment on above: Pure hypercholestero lemia Start: 08-30-2024 End: 08-30-[address] Moshe Key MD Work Phone: [facility] Work Phone: Start: 08-30-2024 End: 08-30-[address] Arnold Morton MD -[facility] Work Phone: Start: 08-30-2024 End: 08-30-2024 ambulatory Arnold Morton Facility:[facility] Start: 08-05-2024 End: 08-05-2024 ambulatory [facility] Start: 08-04-2024 End: 08-05-2024 Refill Jessica Smith LIQUOR GRINDER MILL OPERATOR - SHOT EXAMINER Work Phone: [facility] Comment on above: Pure hypercholestero lemia Start: 07-30-2024 End: 07-30-[address] Arnold Morton MD -[facility] Work Phone: Start: 07-30-2024 End: 07-30-2024 ambulatory Moshe Yesi Facility:[facility] Start: 07-28-2024 End: 07-28-2024 Patient encounter procedure Tabby WALKER -[facility] Work Phone: Start: 07-28-2024 End: 07-28-2024 ambulatory [facility] Facility:[facility] Start: 07-19-2024 End: 07-19-2024 Refill 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 LIQUOR GRINDER MILL OPERATOR - SHOT EXAMINER Work Phone: [facility] Comment on above: Post-nasal drainage; Primary hypertension Start: 07-07-2024 End: 07-07-2024 Patient encounter procedure Tabby WALKER -[facility] Work Phone: Start: 07-07-2024 End: 07-07-2024 ambulatory Moshe Key Facility:[facility] Start: 07-05-2024 End: 07-05-2024 Telephone encounter Moshe Key MD Work Phone: [facility] Start: 07-05-2024 End: 07-05-2024 ambulatory [facility] Start: 07-02-2024 End: 07-02-2024 Patient encounter procedure Enriqueta DURAND -[facility] Work Phone: Start: 07-02-2024 End: 07-02-2024 ambulatory Moshe Key Facility:[facility] Start: 06-28-2024 End: 06-28-2024 Office outpatient visit 15 minutes Sedrick Bridenthal LIQUOR GRINDER MILL OPERATOR - SHOT EXAMINER [facility] Comment on above: Osteoarthritis of ri ght knee, unspecified osteoarthritis type (Primary Dx); Pure hypercholesterolemia Start: 06-28-2024 End: 06-28-2024 Office outpatient visit 25 minutes Sedrick Bridenthal LIQUOR GRINDER MILL OPERATOR - SHOT EXAMINER Work Phone: [facility] Comment on above: Osteoarthritis of ri ght knee, unspecified osteoarthritis type (Primary Dx); Pure hypercholesterolemia Start: 06-28-2024 End: 06-28-2024 ambulatory SEDRICK BRIDENTHAL [facility] Start: 06-10-2024 End: 06-10-2024 Refill Moshe Key MD Work Phone: [facility] Comment on above: Gastroesophageal ref lux disease without esophagitis; Vitamin D deficiency Start: 06-03-2024 End: 06-03-2024 ambulatory [facility] Start: 06-02-2024 End: 06-02-2024 Refill Sedrick Bridenthal LIQUOR GRINDER MILL OPERATOR - SHOT EXAMINER Work Phone: [facility] Start: 05-31-2024 End: 05-31-2024 ambulatory Arnold Morton Facility:[facility] Start: 05-31-2024 End: 05-31-[address] Arnold Morton MD -Physical Therapy Work Phone: Start: 05-25-2024 End: 06-16-2024 Telephone encounter Sedrick Bridenthal LIQUOR GRINDER MILL OPERATOR - SHOT EXAMINER Work Phone: [facility] Comment on above: Results Start: 05-25-2024 End: 05-25-2024 ambulatory SEDRICK BRIDENTHAL LIQUOR GRINDER MILL OPERATOR/SHOT EXAMINER Facility:[facility] Start: 05-25-2024 End: 05-25-2024 Patient encounter procedure SEDRICK KARRIEENTHAL LIQUOR GRINDER MILL OPERATOR/SHOT EXAMINER [facility] Start: 05-25-2024 End: 05-25-2024 Office outpatient visit 15 minutes Sedrick Karrieenthal LIQUOR GRINDER MILL OPERATOR - SHOT EXAMINER Work Phone: [facility] Comment on above: Acute pain of right knee (Primary Dx) Start: 05-25-2024 End: 05-25-2024 ambulatory SEDRICK PAULAL [facility] Start: 05-24-2024 End: 05-24-2024 ambulatory Gerri Hazel RN [facility] Clinical Communication Start: 05-24-2024 End: 05-24-2024 [facility] Start: 05-13-2024 End: 05-13-2024 Patient encounter procedure Enriqueta DURAND -[facility] Work Phone: Start: 05-13-2024 End: 05-13-2024 ambulatory Moshe Key Facility:[facility] Start: 05-04-2024 End: 05-04-2024 Patient encounter procedure Moshe Key MD Work Phone: [facility] Comment on above: Medicare annual well ness visit, subsequent (Primary Dx); Primary hypertension; Gastroesophageal reflux disease without esophagitis; Hereditary hemochromatosis (HCC); Acquired hypothyroidism; Type 2 diabetes mellitus without complication, without long-term current use of insulin (CMS/HCC) (HCC); Pure hypercholesterolemia; Immunization due Start: 05-04-2024 End: 05-04-2024 ambulatory MOSHESPARKLE KEY [facility] Start: 05-04-2024 End: 05-04-2024 Encounter for general adult medical examination without abnormal findings MOSHE YESI [facility] Start: 05-01-2024 End: 05-03-2024 Refill Sedrick Bridenthal LIQUOR GRINDER MILL OPERATOR - SHOT EXAMINER Work Phone: [facility] Comment on above: Primary hypertension Start: 04-16-2024 Encounter for other preprocedural examination [facility] Start: 04-15-2024 End: 04-15-2024 ambulatory Moshe Yesi Facility:[facility] Start: 03-29-2024 End: 03-30-2024 ambulatory [facility] Facility:[facility] Start: 03-29-2024 ambulatory [facility] Facility:[facility] Start: 03-25-2024 End: 03-25-2024 Refill Moshe Key MD Work Phone: [facility] Start: 03-19-2024 End: 03-19-2024 ambulatory [facility] Facility:[facility] Start: 03-09-2024 End: 03-09-2024 Office outpatient visit 15 minutes Sedrick Bridenthal LIQUOR GRINDER MILL OPERATOR - SHOT EXAMINER Work Phone: [facility] Comment on above: Preoperative clearan ce (Primary Dx); Type 2 diabetes mellitus without complication, without long-term current use of insulin (CMS/HCC) (HCC); Primary hypertension Start: 03-09-2024 End: 03-09-2024 Office outpatient visit 25 minutes Sedrick Bridenthal LIQUOR GRINDER MILL OPERATOR - SHOT EXAMINER Work Phone: [facility] Comment on above: Preoperative clearan ce (Primary Dx); Type 2 diabetes mellitus without complication, without long-term current use of insulin (CMS/HCC) (HCC); Primary hypertension Start: 03-09-2024 End: 03-09-2024 Preoperative state Sedrick Bridenthal LIQUOR GRINDER MILL OPERATOR - SHOT EXAMINER Work Phone: [facility] Work Phone: Start: 03-09-2024 End: 03-09-2024 [facility] Start: 03-09-2024 End: 03-09-2024 Encounter for other [facility]procedural [facility] Start: 02-26-2024 End: 02-26-20[facility] Start: 02-23-2024 End: 02-23-2024 Subsequent hospital visit by physician 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 LIQUOR GRINDER MILL OPERATOR - SHOT EXAMINER Work Phone: [facility] Comment on above: Encounter for screen ing mammogram for malignant neoplasm of breast Start: 02-23-2024 End: 02-23-2024 ambulatory [facility] Start: 02-16-2024 End: 02-16-2024 ambulatory [facility] Facility:[facility] Start: 02-13-2024 End: 02-13-2024 Telephone encounter Sedrick Karriechristina LIQUOR GRINDER MILL OPERATOR - SHOT EXAMINER Work Phone: [facility] Comment on above: Results Start: 02-12-2024 End: 02-12-2024 Subsequent hospital visit by physician 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 LIQUOR GRINDER MILL OPERATOR - SHOT EXAMINER Work Phone: [facility] Non-Invasive Cardiology Comment on above: Murmur, cardiac Start: 02-12-2024 End: 02-12-2024 [facility] Start: 02-12-2024 End: 02-12-2024 ambulatory MOSHE KEY [facility] Start: 02-09-2024 End: 02-09-2024 Subsequent hospital visit by physician 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 LIQUOR GRINDER MILL OPERATOR - SHOT EXAMINER Work Phone: [facility] Comment on above: History of tobacco u se Start: 02-09-2024 End: 02-09-[address] [facility] Start: 02-05-2024 End: 02-05-2024 ambulatory Israel Clarence Facility:[facility] Start: 01-21-2024 End: 01-21-2024 Office outpatient visit 25 minutes 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 LIQUOR GRINDER MILL OPERATOR - SHOT EXAMINER Work Phone: [facility] Comment on above: Type 2 diabetes willard itus without complication, without long- term current use of insulin ([facility]/HCC) (HCC) (Primary Dx); Hypothyroidism, unspecified type; Degenerative disc disease, lumbar; Iron deficiency anemia, unspecified iron deficiency anemia type; Primary hypertension; History of tobacco use; Encounter for screening mammogram for malignant neoplasm of breast; Murmur, cardiac; Bilateral foot pain Start: 01-21-2024 End: 01-21-2024 ambulatory SEDRICK HEMPHILL [facility] Start: 01-16-2024 End: 01-16-2024 ambulatory No Primary Care Physician Facility:[facility] Start: 01-15-2024 End: 01-16-2024 Telephone encounter 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 LIQUOR GRINDER MILL OPERATOR - SHOT EXAMINER Work Phone: [facility] Comment on above: Results Start: 01-14-2024 End: 01-14-2024 ambulatory [facility] Start: 12-26-2023 End: 12-29-2023 Refill 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 LIQUOR GRINDER MILL OPERATOR - SHOT EXAMINER Work Phone: [facility] Comment on above: Swelling of both low er extremities Start: 12-24-2023 End: 12-24-2023 Telephone encounter 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 LIQUOR GRINDER MILL OPERATOR - SHOT EXAMINER Work Phone: [facility] Comment on above: Results Start: 12-17-2023 End: 12-17-2023 Subsequent hospital visit by physician 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 LIQUOR GRINDER MILL OPERATOR - SHOT EXAMINER Work Phone: [facility] Radiology Comment on above: Chronic left-sided l ow back pain without sciatica Start: 12-17-2023 End: 12-17-2023 ambulatory [facility] Start: 12-10-2023 End: 12-15-2023 Telephone encounter 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 LIQUOR GRINDER MILL OPERATOR - SHOT EXAMINER Work Phone: [facility] Start: 12-09-2023 End: 12-10-2023 Vivian Key MD Work Phone: [facility] Start: 12-03-2023 End: 12-03-2023 Telephone encounter Sedrick Millerhenry LIQUOR GRINDER MILL OPERATOR - SHOT EXAMINER Work Phone: [facility] Comment on above: Results Start: 12-01-2023 End: 12-01-2023 Office outpatient visit 15 minutes Sedrick Yoonchristina LIQUOR GRINDER MILL OPERATOR - SHOT EXAMINER Work Phone: [facility] Comment on above: Left buttock pain (P rimary Dx); Bilateral foot pain; Colon cancer screening Start: 11-25-2023 End: 11-25-2023 Postop follow up visit related to original px Nadya Biro PA-C Work Phone: [facility]ics [facility] Comment on above: Mass of joint of rig ht wrist (Primary Dx); S/P excision of ganglion cyst Start: 10-22-2023 End: 12-10-2023 Telephone encounter Orthopedic Work Phone: [facility] Clinical Communication Comment on above: FYI Start: 10-22-2023 End: 10-22-2023 Office outpatient visit 25 minutes Sedrick Yoonchristina LIQUOR GRINDER MILL OPERATOR - SHOT EXAMINER Work Phone: [facility] Comment on above: Type 2 diabetes willard itus without complication, without long- term current use of insulin (CMS/HCC) (HCC) (Primary Dx); Hereditary hemochromatosis (HCC); Swelling of both lower extremities; Bilateral foot pain; Primary hypertension Start: 10-14-2023 End: 10-14-2023 Postop follow up visit related to original px Nadya Biro PA-C Work Phone: [facility] Comment on above: Mass of joint of rig ht wrist; S/P excision of ganglion cyst Start: 09-16-2023 End: 09-16-2023 Postop follow up visit related to original px Nadya Biro PA-C Work Phone: [facility] Comment on above: S/P excision of gang lion cyst (Primary Dx); Mass of joint of right wrist Start: 09-04-2023 ambulatory Iris Morales RN [facility] Clinical Communication Start: 09-04-2023 Patient encounter procedure Iris campbell RN [facility] Clinical Communication Start: 09-04-2023 End: 09-04-2023 Office outpatient visit 10 minutes Sedrick Bridenthal LIQUOR GRINDER MILL OPERATOR - SHOT EXAMINER Work Phone: [facility] Comment on above: Visit for wound chec k (Primary Dx) Start: 09-03-2023 End: 09-03-2023 Subsequent hospital visit by physician Austin Leos MD Work Phone: [facility] MAIN OR Comment on above: H/O excision of mass (Primary Dx); Ganglion, right wrist Start: 08-19-2023 Telephone encounter Moshe Evans MD Work Phone: [facility] Comment on above: appt with Dr. Alvin Beltran, DPM<9>on 2:45 Start: 08-08-2023 ambulatory Nadya Sewell Work Phone: [facility] Orthopedic Surg Start: 08-05-2023 Telephone encounter Austin ruiz MD Work Phone: [facility] Comment on above: Surgery Scheduling ( Surgery Scheduling) Start: 08-05-2023 End: 08-05-2023 Office outpatient new 30 minutes Austin Leos MD Work Phone: [facility] Comment on above: Mass of joint of rig ht wrist Start: 07-24-2023 End: 07-24-2023 Office outpatient visit 25 minutes Sedrick Karrieenthal LIQUOR GRINDER MILL OPERATOR - SHOT EXAMINER Work Phone: [facility] Comment on above: Hereditary hemochrom atosis (HCC) (Primary Dx); Primary hypertension; Type 2 diabetes mellitus without complication, without long-term current use of insulin ([facility]/HCC) (HCC); Bilateral foot pain; Mass of joint of right wrist; Other specified hypothyroidism Start: 07-01-2023 End: 07-01-2023 Emergency department patient visit KIZZY DURAND Work Phone: [facility] Work Phone: Start: 07-01-2023 End: 07-01-2023 Patient encounter procedure KIZZY DURAND Work Phone: [facility] Work Phone: Start: 06-09-2023 Telephone encounter Moshe Evans MD Work Phone: [facility] Start: 06-05-2023 End: 06-06-2023 ambulatory SEDRICK BRIDENTHAL LIQUOR GRINDER MILL OPERATOR/SHOT EXAMINER Facility:[facility] Start: 06-05-2023 End: 06-05-2023 Patient encounter procedure SEDRICK BRIDENTHAL LIQUOR GRINDER MILL OPERATOR/SHOT EXAMINER [facility] Start: 06-04-2023 End: 06-04-2023 Office outpatient visit 15 minutes Sedrick Bridenthal LIQUOR GRINDER MILL OPERATOR - SHOT EXAMINER Work Phone: [facility] Comment on above: Mass of joint of rig ht wrist (Primary Dx) Start: 04-23-2023 End: 04-23-2023 Assay of hemosiderin, quant Sedrick Bridenthal LIQUOR GRINDER MILL OPERATOR - SHOT EXAMINER Work Phone: [facility] Work Phone: Start: 04-23-2023 End: 04-23-2023 Patient encounter procedure Sedrick Bridenthal LIQUOR GRINDER MILL OPERATOR - SHOT EXAMINER Work Phone: [facility] Comment on above: Routine general medi luly examination at health care facility (Primary Dx); Type 2 diabetes mellitus without complication, without long-term current use of insulin (CMS/HCC) (HCC); Primary hypertension; Hereditary hemochromatosis (HCC); Hypothyroidism, unspecified type; Immunization due Start: 04-02-2023 End: 04-02-2023 Office outpatient new 45 minutes 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 LIQUOR GRINDER MILL OPERATOR - SHOT EXAMINER Work Phone: [facility] Comment on above: Type 2 diabetes willard itus without complication, without long- term current use of insulin (CMS/HCC) (HCC) (Primary Dx); Hereditary hemochromatosis (HCC); Primary hypertension Start: 03-21-2023 Telephone encounter Sedrickdony buchanan LIQUOR GRINDER MILL OPERATOR - SHOT EXAMINER Work Phone: [facility] Comment on above: New Patient Procedures Date Procedure Procedure Detail Performing Clinician Start: 08-30-2024 MRI of cervical spine Severiano Key MD Work Phone: Start: 08-05-2024 Lipid 1995 panel - S rosendo or Plasma Jessica Smith LIQUOR GRINDER MILL OPERATOR - SHOT EXAMINER Work Phone: Start: 07-30-2024 X-ray of cervical spine Dr. Moshe Key MD Work Phone: Start: 07-05-2024 Lipid 1995 panel - S rosendo or Plasma Sedrick Colin LIQUOR GRINDER MILL OPERATOR - SHOT EXAMINER Work Phone: Start: 07-02-2024 X-ray of lumbar spin e, two or three views Dr. Moshe Key MD Work Phone: Start: 06-03-2024 Lipid 1995 panel - S rosendo or Plasma Moshe eKy MD Work Phone: Start: 06-03-2024 Thyrotropin [Units/volume] in Serum or Plasma Moshe Key MD Work Phone: Start: 05-13-2024 X-ray of lumbar spin e, two or three views Dr. Moshe Key MD Work Phone: Start: 05-04-2024 Lipid 1995 panel - S rosendo or Plasma Gerri Hazel RN Start: 05-04-2024 Thyrotropin [Units/volume] in Serum or Plasma Gerri Hazel RN Start: 05-03-2024 Adult depression screening assessment Moshe Key MD Work Phone: Start: 03-06-2024 Adult depression screening assessment 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 LIQUOR GRINDER MILL OPERATOR - SHOT EXAMINER Work Phone: Start: 02-23-2024 End: 02-23-2024 Screening digital breast tomosynthesis bi Sedrick Milleral LIQUOR GRINDER MILL OPERATOR - SHOT EXAMINER Work Phone: Start: 02-12-2024 Echo tthrc r-t 2d w/wom-mode compl spec&colr d Sedrick Milleral LIQUOR GRINDER MILL OPERATOR - SHOT EXAMINER Work Phone: Start: 02-12-2024 Thyrotropin [Units/volume] in Serum or Plasma Sedrick Karrieenthal LIQUOR GRINDER MILL OPERATOR - SHOT EXAMINER Work Phone: Start: 01-14-2024 Thyrotropin [Units/volume] in Serum or Plasma Sedrick Karrieenthal LIQUOR GRINDER MILL OPERATOR - SHOT EXAMINER Work Phone: Start: 08-05-2023 Colonoscopy Austin wolfe MD Work Phone: Start: 05-07-2023 Lipid 1996 panel - S rosendo or Plasma Sedrick Karrieenthal LIQUOR GRINDER MILL OPERATOR - SHOT EXAMINER Work Phone: Start: 05-07-2023 Thyrotropin [Units/volume] in Serum or Plasma Sedrick Karrieenthal LIQUOR GRINDER MILL OPERATOR - SHOT EXAMINER Work Phone: Start: 04-23-2023 Adult depression screening assessment Sedrickray Yoonenthal LIQUOR GRINDER MILL OPERATOR - SHOT EXAMINER Work Phone: Start: 04-02-2023 Adult depression screening assessment Sedrickray Milleral LIQUOR GRINDER MILL OPERATOR - SHOT EXAMINER Work Phone: Start: 02-12-2023 Mammography Sedrick cohenthal LIQUOR GRINDER MILL OPERATOR - SHOT EXAMINER Work Phone: H/O: surgery H/O excision of mass Austin Leos MD Work Phone: Plan of Treatment Date Care Activity Detail Author Start: 08-04-2033 Screening for malignant neoplasm of colon [facility] Start: 2029 RSV Immunization for Adults (1 - 1-dose 75+ series) RSV Immunization for Adults (1 - 1-dose 75+ series) [facility] Start: 01-19-2027 Screening for malignant neoplasm of colon Colorectal Cancer Screening [facility] Comment on above: Postponed from 1954 (Other System Reasons) Start: 12-04-2026 Screening for malignant neoplasm of colon FIT-DNA [facility] Start: 04-23-2026 Screening for malignant neoplasm of colon Colorectal Cancer Screening [facility] Comment on above: Postponed from 1954 (Other Patient Reasons) Start: 08-05-2025 Lipid panel Lipid Panel [facility] Start: 07-05-2025 Lipid panel Lipid Panel [facility] Start: 06-03-2025 Lipid panel Lipid Panel [facility] Start: 06-03-2025 Thyroid stimulating hormone measurement TSH Level [facility] Start: 05-05-2025 End: 05-05-2025 Patient encounter procedure 05/05/2025 10:20 AM EST Office Visit [facility] [address] [place] [address] 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, LIQUOR GRINDER MILL OPERATOR - SHOT EXAMINER [address] [place] [address] [facility] Start: 05-04-2025 Diabetes: Estimated Glomerular Filtration Rate for Kidney Health Diabetes: Estimated Glomerular Filtration Rate for Kidney Health [facility] Start: 05-04-2025 Hemoglobin A1c measurement Diabetes: Hemoglobin A1C [facility] Start: 05-04-2025 Lipid panel Lipid Panel [facility] Start: 05-04-2025 Preventive dental service Diabetes: Dental Exam [facility] Comment on above: Postponed from 04/23/2023 (Patient Refus ed) Start: 05-04-2025 Thyroid stimulating hormone measurement TSH Level [facility] Start: 05-03-2025 Depression Screening Depression Screening [facility] Start: 03-09-2025 Diabetic foot examination Diabetes: Foot Exam [facility] Start: 03-06-2025 Depression Screening Depression Screening [facility] Start: 02-22-2025 Screening for malignant neoplasm of breast Mammogram [facility] Start: 02-14-2025 Glaucoma screening Diabetes: Retinopathy Screening [facility] Start: 02-11-2025 Thyroid stimulating hormone measurement TSH Level [facility] Start: 02-08-2025 Screening for malignant neoplasm of lung Lung Cancer Screening [facility] Start: 01-24-2025 Influenza vaccination Influenza Vaccine (#1) [facility] Start: 01-20-2025 Diabetes: Urine Albumin-Creatinine Ratio for Kidney Health Diabetes: Urine Albumin-Creatinine Ratio for Kidney Health [facility] Start: 01-13-2025 Thyroid stimulating hormone measurement TSH Level [facility] Start: 10-21-2024 Diabetes: Estimated Glomerular Filtration Rate for Kidney Health Diabetes: Estimated Glomerular Filtration Rate for Kidney Health [facility] Start: 08-26-2024 Hemoglobin A1c measurement Diabetes: Hemoglobin A1C [facility] Start: 08-22-2024 COVID-19 Vaccine ( season) COVID-19 Vaccine () [facility] Start: 08-05-2024 End: 08-05-2024 Clinical Support 08/05/2024 9:30 AM EDT Clinical Support [facility] [address] [facility] [place] [address] [facility] Start: 07-28-2024 Diabetes: Estimated Glomerular Filtration Rate for Kidney Health Diabetes: Estimated Glomerular Filtration Rate for Kidney Health [facility] Start: 07-05-2024 End: 07-05-2024 Clinical Support 07/05/2024 9:30 AM EST Clinical Support [facility] [address] [place] [address] [facility] Start: 06-28-2024 End: 06-28-2024 Patient encounter procedure 06/28/2024 9:20 AM EST Office Visit [facility] [address] [place] [address] 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, LIQUOR GRINDER MILL OPERATOR - SHOT EXAMINER [address] [facility] [place] [address] [facility] Start: 06-24-2024 COVID-19 Vaccine () COVID-19 Vaccine () [facility] Start: 06-03-2024 End: 06-03-2024 Clinical Support 06/03/2024 9:30 AM EST Clinical Support [facility] [address] [facility] [place] [address] [facility] Start: 05-26-2024 Medicare [facility] Annual Wellness Visit Medicare Advantage Annual Wellness Visit [facility] Start: 05-25-2024 End: 05-25-2025 XR Knee - right 4 Views XR knee 4+ views right Imaging Routine Acute pain of right knee Expected: 05/25/2024, Expires: 05/25/2025 [facility] Work Phone: Comment on above: Expected: 05/25/2024, Expires: Start: 05-25-2024 End: 05-25-2024 Patient encounter procedure 05/25/2024 10:40 AM EST Office Visit [facility] [place] [address] [facility] [place] [address] 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, LIQUOR GRINDER MILL OPERATOR - SHOT EXAMINER [address] [facility] [place] [address] [facility] Start: 05-07-2024 Hemoglobin A1c measurement Diabetes: Hemoglobin A1C [facility] Start: 05-07-2024 Lipid panel Lipid Panel [facility] Start: 05-07-2024 Thyroid stimulating hormone measurement TSH Level [facility] Start: 05-04-2024 End: 05-04-2025 CBC W Auto Differential panel - Blood CBC auto differential Lab Routine Hereditary hemochromatosis (HCC) Expected: 05/04/2024 (Approximate), Expires: 05/04/2025 [facility] Comment on above: Expected: 05/04/2024 (Approximate), Expi res: 05/04/2025 Start: 05-04-2024 End: 05-04-2025 Comprehensive metabolic 1998 panel - Serum or Plasma Comprehensive metabolic panel Lab Routine Type 2 diabetes mellitus without complication, without long-term current use of insulin (CMS/HCC) (HCC) Expected: 05/04/2024 (Approximate), Expires: 05/04/2025 [facility] Comment on above: Expected: 05/04/2024 (Approximate), Expi res: 05/04/2025 Start: 05-04-2024 End: 05-04-2025 Ferritin [Mass/volume] in Serum or Plasma Ferritin Lab Routine Hereditary hemochromatosis (HCC) Expected: 05/04/2024 (Approximate), Expires: 05/04/2025 [facility] Comment on above: Expected: 05/04/2024 (Approximate), Expi res: 05/04/2025 Start: 05-04-2024 End: 05-04-2025 Hemoglobin A1c measurement Hemoglobin A1c Lab Routine Type 2 diabetes mellitus without complication, without long-term current use of insulin (CMS/HCC) (HCC) Expected: 05/04/2024 (Approximate), Expires: 05/04/2025 [facility] Comment on above: Expected: 05/04/2024 (Approximate), Expi res: 05/04/2025 Start: 05-04-2024 End: 05-04-2025 Iron and Iron binding capacity panel - Serum or Plasma Iron and TIBC Lab Routine Hereditary hemochromatosis (HCC) Expected: 05/04/2024 (Approximate), Expires: 05/04/2025 [facility] Comment on above: Expected: 05/04/2024 (Approximate), Expi res: 05/04/2025 Start: 05-04-2024 End: 05-04-2025 Lipid 1996 panel - Serum or Plasma Lipid panel Lab Routine Pure hypercholesterolemia Expected: 05/04/2024 (Approximate), Expires: 05/04/2025 [facility] Work Phone: Comment on above: Expected: 05/04/2024 (Approximate), Expi res: 05/04/2025 Start: 05-04-2024 End: 05-04-2025 Thyrotropin [Units/volume] in Serum or Plasma TSH Lab Routine Acquired hypothyroidism Expected: 05/04/2024 (Approximate), Expires: 05/04/2025 [facility] Comment on above: Expected: 05/04/2024 (Approximate), Expi res: 05/04/2025 Start: 05-04-2024 End: 05-04-2024 Patient encounter procedure [facility] Start: 04-27-2024 Medicare Advantage Annual Wellness Visit Medicare Advantage Annual Wellness Visit [facility] Comment on above: Postponed from 05/26/2023 (Other System Reasons) Start: 04-23-2024 Depression Screening Depression Screening [facility] Start: 04-23-2024 Diabetic foot examination Diabetes: Foot Exam [facility] Start: 04-23-2024 Screening for osteoporosis Bone Density Scan [facility] Comment on above: Postponed from 1954 (Patient Refus ed) Start: 04-23-2024 Zoster Vaccines (1 of 2) Zoster Vaccines (1 of 2) [facility] Comment on above: Postponed from 2004 (Patient Refus ed) Start: 04-23-2024 Zoster Vaccines (2 of 2) Zoster Vaccines (2 of 2) [facility] Comment on above: Postponed from 02/19/2022 (Patient Refus ed) Start: 04-15-2024 End: 04-15-2024 Patient encounter procedure [facility] Start: 04-02-2024 COVID-19 Vaccine (#1) COVID-19 Vaccine (#1) [facility] Comment on above: Postponed from [birth year]14/1955 (Patient Refus ed) Start: 04-02-2024 COVID-19 Vaccine ( season) COVID-19 Vaccine ( season) [facility] Comment on above: Postponed from 01/24/2023 (Patient Refus ed) Start: 04-02-2024 Depression Screening Depression Screening [facility] Start: 04-02-2024 DTaP/Tdap/Td Vaccines (1 - Tdap) DTaP/Tdap/Td Vaccines (1 - Tdap) [facility] Comment on above: Postponed from 1973 (Patient Refus ed) Start: 04-02-2024 Hepatitis C screening Hepatitis C Screening [facility] Comment on above: Postponed from 1972 (Patient Refus ed) Start: 03-12-2024 End: 03-12-2024 Clinical Support 03/12/2024 9:00 AM EDT Clinical Support [address] [address] [facility] Start: 02-23-2024 End: 02-23-2024 Patient encounter procedure 02/23/2024 11:40 AM EDT Appointment [facility] [address] [place] [address] 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, LIQUOR GRIND[employer] MILL OPERATOR - SHOT EXAMINER [address] [place] [address] [facility] Start: 02-21-2024 End: 03-22-2025 DBT Breast - bilateral screening Bilateral screening mammogram with tomosynthesis Imaging Routine Encounter for screening mammogram for malignant neoplasm of breast Expected: 02/21/2024, Expires: 03/22/2025 [facility] Comment on above: Expected: 02/21/2024, Expires: Start: 02-15-2024 Glaucoma screening Diabetes: Retinopathy Screening [facility] Start: 02-15-2024 End: 01-14-2025 Thyrotropin [Units/volume] in Serum or Plasma TSH Lab Routine Hypothyroidism, unspecified type Expected: 02/15/2024 (Approximate), Expires: 01/14/2025 [facility] Work Phone: Comment on above: Expected: 02/15/2024 (Approximate), Expi res: 01/14/2025 Start: 02-13-2024 Screening for malignant neoplasm of breast Mammogram [facility] Start: 02-12-2024 End: 02-12-2024 Clinical Support [facility] Start: 01-25-2024 COVID-19 Vaccine ( season) COVID-19 Vaccine ( season) [facility] Start: 01-25-2024 Influenza vaccination [facility] Start: 01-21-2024 End: 01-19-2025 CT Chest for screening WO contrast CT lung screening low dose Imaging Routine History of tobacco use Expected: 01/21/2024, Expires: 01/19/2025 [facility] Comment on above: Expected: 01/21/2024, Expires: Start: 01-21-2024 End: 01-19-2025 Microalbumin/Creatinin e panel in random Urine Microalbumin / creatinine, urine ratio Lab Routine Type 2 diabetes mellitus without complication, without long-term current use of insulin ([facility]/HCC) (HCC) Expected: 01/21/2024 (Approximate), Expires: 01/19/2025 [facility] Work Phone: Comment on above: Expected: 01/21/2024 (Approximate), Expi res: 01/19/2025 Start: 01-21-2024 End: 01-20-2026 US Heart Transthoracic Transthoracic echocardiogram (TTE) complete with contrast, bubble, strain, and 3D PRN CV Echocardiography Routine Murmur, cardiac Expected: 01/21/2024 (Approximate), Expires: 01/20/2026 [facility] Comment on above: Expected: 01/21/2024 (Approximate), Expi res: 01/20/2026 Start: 01-21-2024 End: 01-21-2024 Patient encounter procedure 01/21/2024 10:20 AM EDT Office Visit [facility] [address] [place] [address] 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, LIQUOR GRIND[employer] MILL OPERATOR - SHOT EXAMINER [address] [place], [place] [id number] [facility] Start: 01-14-2024 End: 12-02-2024 CBC W Auto Differential panel - Blood CBC auto differential Lab Routine Iron deficiency anemia, unspecified iron deficiency anemia type Expected: 01/14/2024 (Approximate), Expires: 12/02/2024 [facility] Work Phone: Comment on above: Expected: 01/14/2024 (Approximate), Expi res: 12/02/2024 Start: 01-14-2024 End: 12-02-2024 Cobalamin (Vitamin B12) [Mass/volume] in Serum or Plasma Vitamin B12 Lab Routine Anemia, unspecified type Expected: 01/14/2024 (Approximate), Expires: 12/02/2024 [facility] [id number] Comment on above: Expected: 01/14/2024 (Approximate), Expi res: 12/02/2024 Start: 01-14-2024 End: 12-02-2024 Ferritin [Mass/volume] in Serum or Plasma Ferritin Lab Routine Iron deficiency anemia, unspecified iron deficiency anemia type Expected: 01/14/2024 (Approximate), Expires: 12/02/2024 [facility] Comment on above: Expected: 01/14/2024 (Approximate), Expi res: 12/02/2024 Start: 01-14-2024 End: 12-02-2024 Folate [Mass/volume] in Serum or Plasma Folate Lab Routine Anemia, unspecified type Expected: 01/14/2024 (Approximate), Expires: 12/02/2024 [facility] Comment on above: Expected: 01/14/2024 (Approximate), Expi res: 12/02/2024 Start: 01-14-2024 End: 12-02-2024 Iron and Iron binding capacity panel - Serum or Plasma Iron and TIBC Lab Routine Iron deficiency anemia, unspecified iron deficiency anemia type Expected: 01/14/2024 (Approximate), Expires: 12/02/2024 [facility] Comment on above: Expected: 01/14/2024 (Approximate), Expi res: 12/02/2024 Start: 01-14-2024 End: 12-02-2024 Thyrotropin [Units/volume] in Serum or Plasma TSH Lab Routine Anemia, unspecified type Hypothyroidism, unspecified type Expected: 01/14/2024 (Approximate), Expires: 12/02/2024 [facility] [employer] Comment on above: Expected: 01/14/2024 (Approximate), Expi res: 12/02/2024 Start: 01-14-2024 End: 12-02-2024 Transferrin [Mass/volume] in Serum or Plasma Transferrin Lab Routine Iron deficiency anemia, unspecified iron deficiency anemia type Expected: 01/14/2024 (Approximate), Expires: 12/02/2024 [facility] Comment on above: Expected: 01/14/2024 (Approximate), Expi res: 12/02/2024 Start: 01-14-2024 End: 01-14-2024 Clinical Support 01/14/2024 10:00 AM EDT Clinical Support [facility] [address] [place] [address] [place] [address] [facility] Start: 12-24-2023 End: 12-23-2024 25-hydroxyvitamin D3 [Mass/volume] in Serum or Plasma Vitamin D Deficiency Screening (Vit D 25) Lab Routine Osteopenia of lumbar spine Expected: 12/24/2023 (Approximate), Expires: 12/23/2024 [facility] [employer] [facility] Work Phone: Comment on above: Expected: 12/24/2023 (Approximate), Expi res: 12/23/2024 Start: 12-24-2023 End: 12-23-2024 DXA Skeletal system.axial Views for bone density DEXA bone density axial skeleton Imaging Routine Osteopenia of lumbar spine Expected: 12/24/2023, Expires: 12/23/2024 [facility] [id number] Comment on above: Expected: 12/24/2023, Expires: Start: 12-15-2023 End: 12-14-2024 XR Lumbar spine Views W flexion and W extension XR lumbar spine 4-5 view Imaging Routine Chronic left-sided low back pain without sciatica Expected: 12/15/2023, Expires: 12/14/2024 [facility] [employer] Work Phone: Comment on above: Expected: 12/15/2023, Expires: Start: 12-06-2023 Screening for malignant neoplasm of colon Colorectal Cancer Screening [facility] Start: 12-01-2023 End: 12-01-2023 Clinical Support 12/01/2023 9:00 AM EDT Clinical Support [facility] [address] [facility] [place] [address] [facility] Start: 11-25-2023 End: 11-25-2023 Patient encounter procedure 11/25/2023 1:00 PM EDT Office Visit [facility] [address] [place] [phone] Nadya Harkins PA-C [address] [place] [address] [address] [place] [address] [facility] Start: 11-23-2023 Influenza vaccination Influenza Vaccine (#1) [facility] Comment on above: Postponed from 01/24/2023 (Patient Refus ed) Start: 10-29-2023 Screening for malignant neoplasm of colon [facility] Start: 10-22-2023 End: 10-21-2024 CBC W Auto Differential panel - Blood CBC auto differential Lab Routine Hereditary hemochromatosis (HCC) Expected: 10/22/2023 (Approximate), Expires: 10/21/2024 [facility] Work Phone: Comment on above: Expected: 10/22/2023 (Approximate), Expi res: 10/21/2024 Start: 10-22-2023 End: 10-21-2024 Comprehensive metabolic 1998 panel - Serum or Plasma Comprehensive metabolic panel Lab Routine Type 2 diabetes mellitus without complication, without long-term current use of insulin (CMS/HCC) (HCC) Swelling of both lower extremities Expected: 10/22/2023 (Approximate), Expires: 10/21/2024 [facility] Comment on above: Expected: 10/22/2023 (Approximate), Expi res: 10/21/2024 Start: 10-22-2023 End: 10-21-2024 Ferritin [Mass/volume] in Serum or Plasma Ferritin Lab Routine Hereditary hemochromatosis (HCC) Expected: 10/22/2023 (Approximate), Expires: 10/21/2024 [facility] Comment on above: Expected: 10/22/2023 (Approximate), Expi res: 10/21/2024 Start: 10-22-2023 End: 10-21-2024 Iron and Iron binding capacity panel - Serum or Plasma Iron and TIBC Lab Routine Hereditary hemochromatosis (HCC) Expected: 10/22/2023 (Approximate), Expires: 10/21/2024 [facility] Comment on above: Expected: 10/22/2023 (Approximate), Expi res: 10/21/2024 Start: 10-22-2023 RSV Immunization aged 60 or older (1 - 1-dose 60+ series) RSV Immunization aged 60 or older (1 - 1-dose 60+ series) [facility] Comment on above: Postponed from 2014 (Patient Refus ed) Start: 10-22-2023 Screening for malignant neoplasm of lung Lung Cancer Screening [facility] Comment on above: Postponed from 2004 (Patient Refus ed) Start: 10-22-2023 End: 10-22-2023 Patient encounter procedure 10/22/2023 10:20 AM EDT Office Visit [facility] [address] [facility] [place] [address] [place] [address] 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, LIQUOR GRIND[employer] MILL OPERATOR - SHOT EXAMINER [address] [facility] [place] [address] [place] [address] [facility] Start: 10-14-2023 End: 10-14-2023 Patient encounter procedure 10/14/2023 1:30 PM EDT Office Visit [facility] [address] [place] [phone] Nadya Harkins PA-C [address] [facility] [address] [place], [place] [phone] [facility] Start: 09-16-2023 End: 09-16-2023 Patient encounter procedure [facility] Start: 09-03-2023 End: 09-03-2023 Admission to same day surgery center 09/03/2023 9:30 AM EDT - 09/03/2023 10:30 AM EDT Surgery [facility] [address] [place] [phone] Austin Leos MD [address] [facility] [address] [place], [place] [id number] RIGHT VOLAR RADIAL WRIST MASS EXCISION [41796 (CPT )] [facility] Comment on above: RIGHT VOLAR RADIAL WRIST MASS EXCISION [ 44155 (CPT )] Start: 09-03-2023 Subsequent hospital visit by physician 09/03/2023 9:30 AM EDT Hospital Encounter [facility] [address] [place] [address] Austin Leos MD [address] [facility] [address] [place] [address] [facility] MAIN OR Start: 09-03-2023 End: 09-03-2023 Excision ganglion wrist dorsal/volar primary [facility] Operating Room Start: 08-27-2023 End: 08-27-2023 Admission to establishment 08/27/2023 10:00 AM EDT Pre-Admission Testing [facility] Pre-Admit Testing [address] [place] [phone] [facility] Pre-Admit Testing Start: 08-05-2023 End: 08-05-2023 Patient encounter procedure 08/05/2023 1:00 PM EDT Office Visit [facility] [address] [place] [phone] Austin Leos MD [address] [facility] [address] [place] [address] [facility] Start: 07-24-2023 End: 07-23-2024 CBC W Auto Differential panel - Blood CBC auto differential Lab Routine Hereditary hemochromatosis (HCC) Expected: 07/24/2023 (Approximate), Expires: 07/23/2024 [facility] Work Phone: Comment on above: Expected: 07/24/2023 (Approximate), Expi res: 07/23/2024 Start: 07-24-2023 End: 07-23-2024 Ferritin [Mass/volume] in Serum or Plasma Ferritin Lab Routine Hereditary hemochromatosis (HCC) Expected: 07/24/2023 (Approximate), Expires: 07/23/2024 [facility] Comment on above: Expected: 07/24/2023 (Approximate), Expi res: 07/23/2024 Start: 07-24-2023 End: 07-23-2024 Iron and Iron binding capacity panel - Serum or Plasma Iron and TIBC Lab Routine Hereditary hemochromatosis (HCC) Expected: 07/24/2023 (Approximate), Expires: 07/23/2024 [facility] Comment on above: Expected: 07/24/2023 (Approximate), Expi res: 07/23/2024 Start: 07-24-2023 End: 07-24-2023 Patient encounter procedure 07/24/2023 10:00 AM EST Office Visit [facility] [address] [facility] [place] [address] 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, LIQUOR GRINDER MILL OPERATOR - SHOT EXAMINER [address] [facility] [place] [address] [facility] Start: 07-01-[address] [facility] Start: 06-04-2023 End: 06-04-2024 XR Wrist - right 3 Views XR wrist 3+ views right Imaging Routine Mass of joint of right wrist Expected: 06/04/2023, Expires: 06/04/2024 [facility] Work Phone: Comment on above: Expected: 06/04/2023, Expires: Start: 05-26-2023 Medicare Advantage Annual Wellness Visit Medicare Advantage Annual Wellness Visit [facility] Start: 05-07-2023 End: 05-07-2023 Clinical Support 05/07/2023 10:00 AM EST Clinical Support [facility] [address] [facility] [place] [address] [facility] Start: 04-23-2023 End: 04-23-2024 CBC panel - Blood by Automated count CBC Lab Routine Hereditary hemochromatosis (HCC) Expected: 04/23/2023 (Approximate), Expires: 04/23/2024 [facility] [employer] Comment on above: Expected: 04/23/2023 (Approximate), Expi res: 04/23/2024 Start: 04-23-2023 End: 04-23-2024 Ferritin [Mass/volume] in Serum or Plasma Ferritin Lab Routine Hereditary hemochromatosis (HCC) Expected: 04/23/2023 (Approximate), Expires: 04/23/2024 [facility] Comment on above: Expected: 04/23/2023 (Approximate), Expi res: 04/23/2024 Start: 04-23-2023 End: 04-23-2024 Hemoglobin A1c measurement Hemoglobin A1c Lab Routine Type 2 diabetes mellitus without complication, without long-term current use of insulin (CMS/HCC) (HCC) Expected: 04/23/2023 (Approximate), Expires: 04/23/2024 [facility] Comment on above: Expected: 04/23/2023 (Approximate), Expi res: 04/23/2024 Start: 04-23-2023 End: 04-23-2024 Iron and Iron binding capacity panel - Serum or Plasma Iron and TIBC Lab Routine Hereditary hemochromatosis (HCC) Expected: 04/23/2023 (Approximate), Expires: 04/23/2024 [facility] Work Phone: Comment on above: Expected: 04/23/2023 (Approximate), Expi res: 04/23/2024 Start: 04-23-2023 End: 04-23-2024 Lipid 1996 panel - Serum or Plasma Lipid panel Lab Routine Type 2 diabetes mellitus without complication, without long-term current use of insulin (CMS/HCC) (HCC) Expected: 04/23/2023 (Approximate), Expires: 04/23/2024 [facility] Comment on above: Expected: 04/23/2023 (Approximate), Expi res: 04/23/2024 Start: 04-23-2023 Preventive dental service Diabetes: Dental Exam [facility] Start: 04-23-2023 End: 04-23-2024 Thyrotropin [Units/volume] in Serum or Plasma TSH Lab Routine Hypothyroidism, unspecified type Expected: 04/23/2023 (Approximate), Expires: 04/23/2024 [facility] Comment on above: Expected: 04/23/2023 (Approximate), Expi res: 04/23/2024 Start: 04-23-2023 End: 04-23-2023 Patient encounter procedure 04/23/2023 10:00 AM EST Office Visit [facility] [address] [facility] [place] [address] 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, LIQUOR GRINDER MILL OPERATOR - SHOT EXAMINER [address] [facility] [place] [address] [facility] Start: 04-02-2023 End: 04-02-2023 Patient encounter procedure 04/02/2023 11:00 AM EST Office Visit [facility] [address] [facility] [place] [address] PaulSedrick figueroa, LIQUOR GRINDER MILL OPERATOR - SHOT EXAMINER [address] [facility] [place] [address] [facility] Start: 01-24-2023 Influenza vaccination Influenza Vaccine (#1) [facility] Start: 02-19-2022 Zoster Vaccines (2 of 2) Zoster Vaccines (2 of 2) [facility] Start: 2019 Pneumococcal Vaccine: 65+ Years (1 - PCV) Pneumococcal Vaccine: 65+ Years (1 - PCV) [facility] Start: 2014 RSV Immunization aged 60 or older (1 - 1-dose 60+ series) RSV Immunization aged 60 or older (1 - 1-dose 60+ series) [facility] Start: 2014 RSV Immunization for Adults (1 - Risk 60-74 years 1-dose series) RSV Immunization for Adults (1 - Risk 60-74 years 1-dose series) [facility] Start: 2004 Screening for malignant neoplasm of lung Lung Cancer Screening [facility] Start: 2004 Zoster Vaccines (1 of 2) Zoster Vaccines (1 of 2) [facility] Start: 1994 Screening for malignant neoplasm of breast Mammogram [facility] Start: 1973 DTaP/Tdap/Td Vaccines (1 - Tdap) DTaP/Tdap/Td Vaccines (1 - Tdap) [facility] Start: 1973 Hepatitis A Vaccines (1 of 2 - Risk 2-dose series) Hepatitis A Vaccines (1 of 2 - Risk 2-dose series) [facility] Start: 1972 Diabetes: Urine Albumin-Creatinine Ratio for Kidney Health Diabetes: Urine Albumin-Creatinine Ratio for Kidney Health [facility] Start: 1972 Hepatitis C screening Hepatitis C Screening [facility] Start: 1966 Depression Screening Depression Screening [facility] Start: 1964 Diabetic foot examination Diabetes: Foot Exam [facility] Start: 1964 Glaucoma screening Diabetes: Retinopathy Screening [facility] Start: 1964 Preventive dental service Diabetes: Dental Exam [facility] Start: 1960 Pneumococcal Vaccine: 65+ Years (1 - PCV) Pneumococcal Vaccine: 65+ Years (1 - PCV) [facility] Start: 01-14-1956 COVID-19 Vaccine (#1) COVID-19 Vaccine (#1) [facility] Start: 1954 DISCONTINUED Medicare Advantage Annual Wellness Visit (AWV) DISCONTINUED Medicare Advantage Annual Wellness Visit (AWV) [facility] Start: 1954 Hemoglobin A1c measurement Diabetes: Hemoglobin A1C [facility] Start: 1954 Lipid panel Lipid Panel [facility] Start: 1954 Medicare Advantage Annual Wellness Visit (AWV) Medicare Advantage Annual Wellness Visit (AWV) [facility] Start: 1954 Screening for malignant neoplasm of colon [facility] Start: 1954 Screening for osteoporosis Bone Density Scan [facility] Start: 1954 Thyroid stimulating hormone measurement TSH Level [facility] [employer] Cologuard colon canc er screening Cologuard colon cancer screening Lab Routine Colon cancer screening Ordered: 12/01/2023 [employer] Work Phone: Comment on above: Ordered: 12/01/2023 End: 02-09-2024 CT Chest for screening WO contrast [facility] [employer] Work Phone: Comment on above: Once for 1 Occurrences starting 02/09/20 until 02/09/2024 Patient Education ED Vertigo, Un specified ED Gastroenteritis, Viral (Adult) [facility] Work Phone: Patient referral [facility] Work Phone: Tissue exam [facility] [employer] Work Phone: Comment on above: Release Upon Ordering for 1 Occurrences starting 09/03/2023 XR Knee GE 4 Views [facility] End: 12-17-2023 XR Lumbar spine Views W flexion and W extension [facility] [employer] Work Phone: Comment on above: Once for 1 Occurrences starting 12/17/19 24 until 12/17/2023 [facility] Immunizations Immunization Date Immunization Notes Care Provider [facility] 05-04-2024 diphtheria, tetanus toxoids and acellular pertussis vaccine, unspecified formulation Moshe Key MD Work Phone: [facility] 05-04-2024 zoster vaccine-recombinant adjuvanted (Shingrix) 50 MCG/0.5ML vaccine Moshe Key MD Work Phone: [facility] 02-23-2024 Pfizer SARS-CoV-2 Vaccination Sedrick Bridenthal LIQU[employer] GR[employer] MILL OPERATOR - SHOT EXAMINER Work Phone: [facility] 01-12-2024 influenza virus vacc ine, unspecified formulation Sedrick Bridenthal LIQUOR GRINDER MILL OPERATOR - SHOT EXAMINER Work Phone: [facility] 01-12-2024 influenza, high dose seasonal, preservative-free Sedrick Bridenthal LIQUOR GRINDER MILL OPERATOR - SHOT EXAMINER Work Phone: [facility] 04-23-2023 Pneumococcal Conjuga te PCV20, Pf (Prevnar 20) Sedrick Bridenthal LIQUOR GRINDER MILL OPERATOR - SHOT EXAMINER Work Phone: [facility] 03-01-2022 Moderna SARS-CoV-2 Vaccination Sedrick Bridenthal LIQUOR GRINDER MILL OPERATOR - SHOT EXAMINER Work Phone: [facility] 02-25-2022 Influenza, Seasonal, Quadrivalent, Adjuvanted Sedrick Bridenthal LIQUOR GRINDER MILL OPERATOR - SHOT EXAMINER Work Phone: [facility] 02-25-2022 influenza virus vacc ine, unspecified formulation Sedrick Bridenthal LIQUOR GRINDER MILL OPERATOR - SHOT EXAMINER Work Phone: [facility] 12-25-2021 zoster vaccine recombinant Sedrick Bridenthal LIQUOR GRINDER MILL OPERATOR - SHOT EXAMINER Work Phone: [facility] 04-12-2021 Moderna SARS-CoV-2 Vaccination Sedrick Bridenthal LIQUOR GRINDER MILL OPERATOR - SHOT EXAMINER Work Phone: [facility] 03-16-2021 Influenza, Seasonal, Quadrivalent, Adjuvanted Sedrick Bridenthal LIQUOR GRINDER MILL OPERATOR - SHOT EXAMINER Work Phone: [facility] 09-04-2020 Moderna SARS-CoV-2 Vaccination Sedrick Bridenthal LIQUOR GRINDER MILL OPERATOR - SHOT EXAMINER Work Phone: [facility] 08-07-2020 Moderna SARS-CoV-2 Vaccination Sedrick Bridenthal LIQUOR GRINDER MILL OPERATOR - SHOT EXAMINER Work Phone: [facility] 03-17-2009 influenza virus vacc ine, whole virus Sedrick Bridenthal LIQUOR GRINDER MILL OPERATOR - SHOT EXAMINER Work Phone: [facility] 03-17-2009 influenza virus vacc ine, unspecified formulation Sedrick Bridenthal LIQUOR GRINDER MILL OPERATOR - SHOT EXAMINER Work Phone: [facility] 05-30-2003 hepatitis B vaccine, adult dosage Sedrick Bridenthal LIQUOR GRINDER MILL OPERATOR - SHOT EXAMINER Work Phone: [facility] 12-20-2002 hepatitis B vaccine, adult dosage Sedrick Bridenthal LIQUOR GRINDER MILL OPERATOR - SHOT EXAMINER Work Phone: [facility] 11-15-2002 hepatitis B vaccine, adult dosage Sedrick Bridenthal LIQUOR GRINDER MILL OPERATOR - SHOT EXAMINER Work Phone: [facility] Payers Date Payer Category Payer Self-pay 2023 Private Health Insurance [id number] 2023 Medicare O [id number] 2023 Medicare [id number] 2022 Medicare [id number] [id number] 1955 Unknown [id number]7 1955 Unknown [id number] 2.16.840.1.134006.3.579.2.627 Private Health Insurance [facility] [id number] Unknown ANTHEM [id number] Unknown [id number] [id number]2 Unknown [id number] 2.16.840.1.533437.3.579.2.462 Unknown [id number] 2..840.1.131953.3.579.2.462 Unknown [id number] 2.16.840.1.617065.3.579.2.462 Unknown [id number] 2..840.1.230471.3.579.2.462 Unknown [id number] 2..840.1.869791.3.579.2.462 Unknown [id number] 2.840.1.268707.3.579.2.462 Unknown [id number] 2.840.1.627804.3.579.2.462 Unknown [id number] 2.840.1.361282.3.579.2.462 Unknown [id number] 2.840.1.157411.3.579.2.462 Unknown [id number] 2.840.1.950039.3.579.2.462 Unknown [id number] 2.840.1.679584.3.579.2.462 Unknown [id number] 2.840.1.903062.3.579.2.462 Unknown [id number] 2..840.1.610111.3.579.2.462 Unknown [id number] 2.16.840.1.344268.3.579.2.462 Unknown [id number] 2.840.1.663139.3.579.2.462 Unknown [id number] 2.16.840.1.824608.3.579.2.462 Unknown [id number] 2.16.840.1.805362.3.579.2.462 Unknown [id number] 2.16.840.1.898710.3.579.2.462 Unknown [id number] 2.16.840.1.800034.3.579.2.462 Unknown [id number] 2.16.840.1.900114.3.579.2.462 Unknown [id number] 2.16.840.1.419541.3.579.2.462 Unknown [id number] 2.16.840.1.255345.3.579.2.462 Unknown [id number] 2.16840.1.080627.3.579.2.462 Social History Date Type Detail Facility Start: 07-01-2023 Tobacco smoking stat [facility] Tobacco smoking consumption unknown [facility] Start: 1955 Sex Assigned At Not on file [facility] Start: 04-02-2023 End: 05-04-2024 Gender identity Not on file [facility] [employer] Start: 04-02-2023 End: 02-23-2024 Tobacco smoking status MOIS Ex-smoker [facility] [place] [employer] Start: 05-26-1989 End: 05-26-2019 History of tobacco use Current smoker [facility] Start: 05-26-1989 End: 05-26-2019 History of tobacco use Cigarette Smoker [facility] [place] [employer] Start: 04-02-2023 End: 05-04-2024 Cigarettes smoked current (pack per day) - Reported 1 [facility] [place] [employer] Start: 04-02-2023 End: 02-23-2024 Tobacco use and exposure Smokeless tobacco non-user [facility] [place] [employer] Start: 04-02-2023 End: 05-25-2024 Alcohol intake Ex-drinker (finding) [facility] Adolescent depressio n screening assessment 1 [facility] [place] [employer] (I/We) worried wheth er (my/our) food would run out before (I/we) got money to buy more. Never true [facility] Start: 1955 Sex Assigned At Female [facility] Within the last year , have you been afraid of your partner or ex-partner? No [facility] Start: 03-21-2023 End: 09-03-2024 Sex Female (finding) [facility] Do you belong to any clubs or organizations such as episcopal groups, unions, fraternal or athletic groups, or school groups? Yes [facility] Are you now , , , , never or living with a partner? [facility] How often to you hav e a drink containing alcohol? Never [facility] How hard is it for y ou to pay for the very basics like food, housing, medical care, and heating Not very hard [facility] Do you feel stress - tense, restless, nervous, or anxious, or unable to sleep at night because your mind is troubled all the time - these days [OSQ] Not at all [facility] [employer] NEGATED: Highlighted rowStart: NINF History of tobacco use Passive smoker [facility] [place] [employer] Medical Equipment Procedure Code Equipment Code Equipment [...] transitioning to prone Collagen haemostatic agent, non-antimicrobial ()[id number] FDA Start: 03-29-2024 Fusion, spine, lumbar, 360 [...] Note Reviewed chart. Refill appropriate. RX sent. [facility] 11-30-2024 Miscellaneous Notes Formattin g of this note might be different from the original. Reviewed chart. Refill appropriate. RX sent. documented in this encounter [facility] 11-10-2024 Telephone encount er Note Reviewed chart. Refill appropriate. RX sent. [facility] 11-10-2024 Miscellaneous Notes Formattin g of this note might be different from the original. Reviewed chart. Refill appropriate. RX sent. Prescription Request: Last medication check: 06/28/24 Last physical exam: 05/04/24 Next scheduled appointment: 05/05/25 Last date of refill on this medication: omeprazole 06/10/24 Furosemide 12/29/23 documented in this encounter [facility] 11-10-2024 Telephone encount er Note Prescription Request: Last medication check: 06/28/24 Last physical exam: 05/04/24 Next scheduled appointment: 05/05/25 Last date of refill on this medication: omeprazole 06/10/24 Furosemide 12/29/23 [facility] 09-22-2024 Telephone encount er Note error [facility] 09-22-2024 Telephone encount er Note S: The patient is calling the [facility] about the cholesterol B: Reviewed the [...] question Protocols used: Medication Refill and Renewal [id number] [facility] 09-22-2024 Miscellaneous Notes Formattin g of this note might be different from the original. error documented in this encounter [facility] 09-22-2024 Miscellaneous Notes Formattin g of this [...] question Protocols used: Medication Refill and Renewal [id number] documented in this encounter [facility] [place] [employer] 09-02-2024 Telephone encount er Note Prescription Request: Rosuvastatin Calcium 10 MG Oral Tablet Fenofibrate 160 MG Oral Tablet Last medication check: 06/28/24 Last physical exam: 05/04/24 Next scheduled appointment: 05/05/25 Last date of refill on this medication Rosuvastatin - 08/06/24 (Qty 90 refill 1) Fenofibrate - 08/06/24 (qty 90 refill 1) [facility] [place] [employer] 09-02-2024 Miscellaneous Notes Formattin g of this [...] 90 refill 1) documented in this encounter [facility] [place] [employer] 08-05-2024 Telephone encount er Note Reviewed chart. Refill appropriate. RX sent. [facility] 08-05-2024 Miscellaneous Notes Formattin g of this note might be different from the original. Reviewed chart. Refill appropriate. RX sent. Lab draw tomorrow Prescription Request: Last medication check: 06-28-24 Last physical exam: 05-04-24 Next scheduled appointment: 05-05-25 Last date of refill on this medication 07-07-24 documented in this encounter [facility] 08-04-2024 Telephone encount er Note Lab draw tomorrow [facility] 08-04-2024 Telephone encount er Note Prescription Request: Last medication check: 06-28-24 Last physical exam: 05-04-24 Next scheduled appointment: 05-05-25 Last date of refill on this medication 07-07-24 [facility] 07-19-2024 Telephone encount er Note Prescription Request: Last medication check: 01/21/24 Last physical exam: 05/04/24 Next scheduled appointment: 05/05/25 Last date of refill on this medication Irbesartan 05/03/24, chlorthalidone 05/03/24, Atrovent 07/05/24 [facility] 07-19-2024 Miscellaneous Notes Formattin g of this note might be different from the original. Prescription Request: Last medication check: 01/21/24 Last physical exam: 05/04/24 Next scheduled appointment: 05/05/25 Last date of refill on this medication Irbesartan 05/03/24, chlorthalidone 05/03/24, Atrovent 07/05/24 documented in this encounter [facility] 07-05-2024 Telephone encount er Note Notified, no further questions. [facility] 07-05-2024 Miscellaneous Notes Formattin g of this [...] scheduled appointment: 05/05/25 documented in this encounter [facility] 07-05-2024 Telephone encount er Note Prescription sent to optum [facility] 07-05-2024 Telephone encount er Note Pt came [...] physical exam: 05/04/24 Next scheduled appointment: 05/05/25 [facility] 06-28-2024 Evaluation + Plan note Associ ated Problem(s): Pure hypercholesterolemia Patient scheduled for lipid check next week. Continue fenofibrate 160 mg daily and atorvastatin 20 mg daily [facility] 06-28-2024 Miscellaneous Notes Associate d Problem(s): Pure [...] (may need ultrasound) documented in this encounter [facility] 06-28-2024 Miscellaneous Notes Associate d Problem(s): Pure [...] Level of Service documented in this encounter [facility] 06-28-2024 Evaluation + Plan note Associ ated [...] and possible corticosteroid injection (may need ultrasound) [facility] 06-28-2024 History of Presen t illness Narrative [...] Date of . documented in this encounter [facility] [place] [employer] 06-28-2024 History of Presen t illness Narrative [...] Date of . documented in this encounter [facility] 06-28-2024 Instructions ASAF Ramos CNP - 06/28/2024 9:[address] Morton about ortho specialist regarding the knee. May need ultrasound if getting injection in the knee. documented in this encounter [facility] 06-28-2024 Instructions ASAF Ramos CNP - 06/28/2024 9:[address] Morton about ortho specialist regarding the knee. May need ultrasound if getting injection in the knee. documented in this encounter [facility] 06-28-2024 Note Addended by: SEDRICK BRADLEY on: 06/29/2024 06:05 PM Modules accepted: Level of Service [facility] 06-16-2024 Telephone encount er Note Added. Pt aware. [facility] 06-16-2024 Miscellaneous Notes Formattin g of this [...] specialist for this) Received fax, placed in [employer]. Faxed to [facility] Name of caller: Yodit Contact phone number: [phone] Relationship to Patient: patient Provider: 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 Practice: [facility] Chief Complaint/Reason for Call: The patient states she got the knee xrays done at [facility] in [place]. Please advise Best time of day caller [...] we get these? Called and spoke with [facility] medical records, they will be sending over x-ray results to us now. FYI I have not received the xray results I had sent an MYRNA over to [facility]....have you gotten these yet? Sent MYRNA to [facility] to send xray results. Noted. I think she is referring to xray of knee at [facility]. Will just need to make sure we receive results later this week. Name of caller: yodit Contact phone number: [phone] Relationship to Patient: patient Provider: 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 Practice: [facility] Chief Complaint/Reason for Call: pt called in to let provider that she got labs done Best time of day caller can be reached: AM Patient advised that office/PCP has 24-48 business hours to return their call: Yes documented in this encounter [facility] 06-16-2024 Telephone encount er Note Yes we can do it at that time- please add to the appt note [facility] 06-16-2024 Telephone encount er Note Notified, asking if you can do this injection at her visit on 06/28/24. [facility] 06-16-2024 Telephone encount er Note Reviewed knee xray. Shows mild osteoarthritis and some calcium deposits within the joint that are likely causing the pain. Recommend considering a corticosteroid knee injection (this can be done here or she can go and see ortho specialist for this) [facility] 06-16-2024 Telephone encount er Note Received fax, placed in [employer]. [facility] 06-15-2024 Telephone encount er Note Faxed to [facility] 06-15-2024 Telephone encount er Note Name of caller: Yodit Contact phone number: [phone] Relationship to Patient: patient Provider: 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 Practice: [facility] Chief Complaint/Reason for Call: The patient states she got the knee xrays done at [facility] in [place]. Please advise Best time of day caller can be reached: Any Patient advised that office/PCP has 24-48 business hours to return their call: No [facility] 06-15-2024 Telephone encount er Note Left a message to return call. CAC: If patient calls back please obtain where she got her knee xrays done at. [facility] 06-15-2024 Telephone encount er Note We got a fax stating that there was no radiology report that they had for this. Will call Yodit and see where she got these done/when she got these done. [facility] [place] [employer] 06-15-2024 Telephone encount er Note Did we get these? [facility] [place] [employer] 06-14-2024 Telephone encount er Note Called and spoke with [facility] medical records, they will be sending over x-ray results to us now. FYI [facility] [place] [employer] 06-10-2024 Telephone encount er Note [facility] [place] [employer] 06-10-2024 Miscellaneous Notes Formattin g of this note might be different from the original. Prescription Request: Last medication check: 01/21/24 Last physical exam: 05/04/24 Next scheduled appointment: 06/28/24 Last date of refill on this medication 12/10/23 documented in this encounter [facility] [place] [employer] 06-10-2024 Telephone encount er Note Prescription Request: Last medication check: 01/21/24 Last physical exam: 05/04/24 Next scheduled appointment: 06/28/24 Last date of refill on this medication 12/10/23 [facility] [place] [employer] 06-10-2024 Telephone encount er Note Prescription Request: Last medication check: 01/21/24 Last physical exam: 05/04/24 Next scheduled appointment: 06/28/24 Last date of refill on this medication Omeprazole 12/03/23, Vit D 01/16/24 [facility] [place] [employer] 06-10-2024 Miscellaneous Notes Formattin g of this note is different from the original. Prescription Request: Last medication check: 01/21/24 Last physical exam: 05/04/24 Next scheduled appointment: 06/28/24 Last date of refill on this medication Omeprazole 12/03/23, Vit D 01/16/24 documented in this encounter [facility] [place] [employer] 06-08-2024 Telephone encount er Note I have not received the xray results [facility] [place] [employer] 06-08-2024 Telephone encount er Note I had sent an MYRNA over to [facility]....have you gotten these yet? [facility] [place] [employer] 06-02-2024 Telephone encount er Note Sent MYRNA to [facility] to send xray results. [facility] [place] [employer] 06-02-2024 Telephone encount er Note Reviewed chart. Refill appropriate. RX sent. [facility] [place] [employer] 06-02-2024 Miscellaneous Notes Formattin g of this note might be different from the original. Reviewed chart. Refill appropriate. RX sent. Prescription Request: Last medication check: 01/21/24 Last physical exam: 05/04/24 Next scheduled appointment: 06/28/24 Last date of refill on this medication 03/25/24 90 day 1 refill documented in this encounter [facility] 06-02-2024 Telephone encount er Note Prescription Request: Last medication check: 01/21/24 Last physical exam: 05/04/24 Next scheduled appointment: 06/28/24 Last date of refill on this medication 03/25/24 90 day 1 refill [facility] 05-25-2024 Evaluation + Plan note Associ ated Problem(s): Acute pain of right knee Will obtain imaging due to history of osteoarthritis to evaluate status. Has been couple years since last imaging per patient. Recommend heather BLEDSOE to see chiropractor for knee, pending imaging results, consider PT and or referral to sports med [facility] 05-25-2024 Miscellaneous Notes Associate d Problem(s): Acute pain of right knee Will obtain imaging due to history of osteoarthritis to evaluate status. Has been couple years since last imaging per patient. Recommend heather BLEDSOE to see chiropractor for knee, pending imaging results, consider PT and or referral to sports med documented in this encounter [facility] 05-25-2024 Telephone encount er Note Noted. I think she is referring to xray of knee at [facility]. Will just need to make sure we receive results later this week. [facility] 05-25-2024 Telephone encount er Note Name of caller: yodit Contact phone number: [phone] Relationship to Patient: patient Provider: 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 Practice: [facility] Chief Complaint/Reason for Call: pt called in to let provider that she got labs done Best time of day caller can be reached: AM Patient advised that office/PCP has 24-48 business hours to return their call: Yes [facility] [employer] 05-25-2024 Note Exam Date Time Procedure Performing Provider Status 05/25/24 12:28 PM XR Knee 3 Views Right Contributor_sy stem, FUJI; Auth (Verified) [id number] ORIGINAL EXAMINATION: THREE XRAY VIEWS OF THE [...] 05/25/2024 9:34:14 PM Ordering Provider: SEDRICK HEMPHILL [facility]12-31-2024 History of Present illness Narrative * Dian Stuart - 05/25/2024 10:40 AM EST Patient was identified by name and Date of . * 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, LIQUOR GRINDER MILL OPERATOR - SHOT EXAMINER - 05/25/2024 10:40 AM EST Images from [...] CNP 05/25/2024 2:32 PM documented in this [facility]12-31-2024 Instructions* Patient Instructions* ASAF Ramos CNP - 05/25/2024 10:40 AM EST Try the Voltaren cream on joints. Ice and elevate right knee, try compression sleeve during the day. documented in this [facility]12-30-2024 Telephone encounter Note* Telephone Encounter - Gerri Hazel RN - 05/24/2024 11:23 AM EST S: The patient is calling the [facility] about right knee pain B: This [...] present > 3 days Protocols used: Knee [id number] [id number] Miscellaneous Notes* Telephone Encounter - Gerri Mcmillan RN - 05/24/2024 11:23 AM EST S: The patient is calling the [facility] about right knee pain B: This [...] present > 3 days Protocols used: Knee [id number] documented in this [facility]12-19-2024 Evaluation note* Diagnosis Onset Date Resolution Status Admit Date S/P lumbar fusion acute Decembe r 2023 1:20pm S/P lumbar fusion acute Februar y 2024 11:24am Osteoarthritis of right knee acute July 07, 2024 10:48am Osteoarthritis of right knee acute July 28, 2024 10:48am Cervical myelopathy acute July 30, 2024 10:46am [facility] Work Phone: [phone]) 900-900512-10-2024 Evaluation + Plan note* Assessment & Plan Note - Moshe Key MD - 05/04/2024 9:30 AM ESTAssociated Problem(s): Hypertension Initially elevated, recheck was normal, continue chlorthalidone 25 mg daily and irbesartan 300 mg daily [id number] Evaluation + Plan note* Assessment & Plan Note - Moshe Key MD - 05/04/2024 9:30 AM ESTAssociated Problem(s): Gastroesophageal reflux disease without esophagitis Stable, continue omeprazole 40 mg daily [id number] Evaluation + Plan note* Assessment & Plan Note - Moshe Key MD - 05/04/2024 9:30 AM ESTAssociated Problem(s): Hereditary hemochromatosis (HCC) Stable, recheck lab work today. Orders: CBC auto differential; Future Ferritin; Future Iron and TIBC; Future CBC auto differential Ferritin Iron and TIBC [id number] Evaluation + Plan note* Assessment & Plan Note - Moshe Key MD - 05/04/2024 9:30 AM ESTAssociated Problem(s): Hypothyroidism Controlled, continue levothyroxine 100 mcg daily Orders: TSH; Future TSH [facility] [id number] Evaluation + Plan note* Assessment & Plan Note - Moshe Key MD - 05/04/2024 9:30 AM ESTAssociated Problem(s): Type 2 diabetes mellitus without complication, without long-term current useof insulin (CMS/HCC) (HCC) Controlled, continue metformin 1000 mg twice a day Orders: Comprehensive metabolic panel; Future Hemoglobin A1c; Future Comprehensive metabolic panel Hemoglobin A1c [facility] [id number] Evaluation + Plan note* Assessment & Plan Note - Moshe Key MD - 05/04/2024 9:30 AM ESTAssociated Problem(s): Pure hypercholesterolemia Controlled, continue atorvastatin 10 mg daily Orders: Lipid panel; Future Lipid panel [facility] [id number] History of Present illness Narrative* Allison Dunlap MA - 05/04/2024 9:30 AM EST Patient verified by last name and date of . * Moshe Key MD - 05/04/2024 9:30 AM EST Images from the original note were not included. [facility] - [address] [address] Visit Type: Medicare Annual Wellness PCP: Moshe Key MD Reason for Visit: Medicare Annual Wellness Visit Subsequent, Blood Work, and Health Maintenance (Tdap vaccine- agree/2nd shingles vaccine- advised to go to pharmacy /Dental exam- not done/Eye exam- go to [facility] in [place] - will send for record ) Assessment [...] MD 05/04/2024 9:57 AM documented in this [facility]12-10-2024 Miscellaneous Notes* Assessment & Plan Note [...] panel; Future Lipid panel documented in this [facility]12-09-2024 Telephone encounter Note* Telephone Encounter - Kourtney Hoff MA - 05/03/2024 7:02 AM EST Prescription Request: Last medication check: 01/21/2024 Last physical exam: 04/23/2023 Next scheduled appointment: 05/04/2024 Last date of refill on this medication: 12/03/2023 [id number] Miscellaneous Notes* Telephone Encounter - Kourtney Hoff MA - 05/03/2024 7:02 AM EST Prescription Request: Last medication check: 01/21/2024 Last physical exam: 04/23/2023 Next scheduled appointment: 05/04/2024 Last date of refill on this medication: 12/03/2023 documented in this [facility]11-04-2024 [facility] Medical Records Department [address] [place] [address] History Physical Exam 03/29/24 0732 MR#: [id number] Acct: [id number] Name: YODIT LANDIN Rep #: [id number] : 1955 68 From: Arnold Morton MD PCP: Dr. Moshe Key MD Status:[facility] Location: [place] [address] History and Physical Date of Admission: 03/29/24 MR#: [id number] Acct: [id number] Name: YODIT LANDIN Rep #: [id number] : 1955 Provider: Dr. Arnold Morton MD Age/Sex: 68/F Location: [facility] Status: Signed Intake Vital Signs 02/05/2416:00 Height [...] mg PO .QAM 01/16/24 03/19/24 History omega 8-fhd-dag-fish oil 1,200 mg 1 cap PO DAILY [...] cap PO TID 03/15/24 03/19/24 History 31.25 seh-uaab-tyulymgol-quercet capsule (Immune Essentials Daily) Have you fallen [...] left leg. She states (more content not included)...[facility]10-31-2024 Telephone encounter Note* Telephone Encounter - ASAF Ramos CNP - 03/25/2024 2:58 PM EDT Reviewed chart. Refill appropriate. RX sent. [facility] HospitalAfboan07-49-3609 Miscellaneous Notes* Telephone Encounter - ASAF Ramos [...] up the medication: N/A documented in this [facility]10-31-2024 Telephone encounter Note* Telephone Encounter - [...] prior to picking up the medication: N/A [facility] HospitalGjwasj61-52-0211 Evaluation + Plan note* Assessment & Plan Note - ASAF Ramos CNP - 03/09/2024 4:58 PM EDTAssociated Problem(s): Preoperative clearance Medical optimized for surgery. [facility] HospitalFfyebp00-75-8306 Miscellaneous Notes* Assessment & Plan Note - ASAF Ramos CNP - 03/09/2024 4:58 PM EDTAssociated Problem(s): Preoperative clearance Medical optimized for surgery. * Assessment & Plan Note - ASAF Ramos CNP - 03/09/2024 4:55 PM EDTAssociated Problem(s): Type 2 diabetes mellitus without complication, without long-term current useof insulin ([facility] ([facility]) Controlled. Glucose readings consistently under 150. Continue metformin 1000 mg twice daily * Assessment & Plan Note - ASAF Ramos CNP - 03/09/2024 4:53 PM EDTAssociated Problem(s): Hypertension Mild elevation in blood pressure today. 146/76. Continue current medications Avapro 300 mg daily, chlorthalidone 25 mg daily, follow-up as directed. documented in this [facility]10-15-2024 Miscellaneous Notes* Assessment & Plan Note - ASAF Ramos CNP - 03/09/2024 4:58 PM EDTAssociated Problem(s): Preoperative clearance Medical optimized for surgery. * Assessment & Plan Note - ASAF Ramos CNP - 03/09/2024 4:55 PM EDTAssociated Problem(s): Type 2 diabetes mellitus without complication, without long-term current useof insulin ([facility]) ([facility]) Controlled. Glucose readings consistently under 150. Continue [...] accepted: Level of Service documented in [facility]15-2024 Evaluation + Plan note* Assessment & Plan Note - ASAF Ramos CNP - 03/09/2024 4:55 PM EDTAssociated Problem(s): Type 2 diabetes mellitus without complication, without long-term current useof insulin ([facility]) ([facility]) Controlled. Glucose readings consistently under 150. Continue metformin 1000 mg twice daily [facility] HospitalRfpmdr10-08-8425 Evaluation + Plan note* Assessment & Plan Note - ASAF Ramos CNP - 03/09/2024 4:53 PM EDTAssociated Problem(s): Hypertension Mild elevation in blood pressure today. 146/76. Continue current medications Avapro 300 mg daily, chlorthalidone 25 mg daily, follow-up as directed. [facility] HospitalEjevbc78-16-8951 History of Present illness Narrative* ASAF Ramos CNP - 03/09/2024 11:00 AM EDT Images from the original note were not included. [facility] - [address] [facility] [address] Dept: [phone] Dept Loc: [phone] Subjective Chief Complaint: Ms. Landin is a 68 y.o. female who presentsfor pre-operative evaluation. Planned surgery: MIS-TLIF at L5-S1 Surgeon: Dr. Rose- [facility] Date of Surgery: 03/29/2024 Plans to be overnight. Then home the next day. Will have PT at the rehab center in [place]. Has another appt next week- on the [...] complication, without long-term current use of insulin ([facility]) ([facility]) Assessment & Plan: Controlled. Glucose readings consistently [...] Exam-needs completed COVID-19 Vaccine-declined Diabetes: Retinopathy Scre[facility]-02/20/[facility] Diabetes: Foot Exam-pended documented in [facility]10-15-2024 History of Present illness Narrative* ASAF Ramos CNP - 03/09/2024 11:00 AM EDT Images from the original note were not included. [address] [address] Dept: [phone] Dept Loc: [phone] Subjective Chief Complaint: Ms. Landin is a 68 y.o. female who presentsfor pre-operative evaluation. Planned surgery: MIS-TLIF at L5-S1 Surgeon: Dr. Rose- [facility] Date of Surgery: 03/29/2024 Plans to be overnight. Then home the next day. Will have PT at the rehab center in [place]. Has another appt next week- on the [...] complication, without long-term current use of insulin ([facility]) ([facility]) Assessment & Plan: Controlled. Glucose readings consistently [...] Exam-needs completed COVID-19 Vaccine-declined Diabetes: [facility]: Foot Exam-pended documented in [facility]10-15-2024 Instructions* Patient Instructions* ASAF Ramos CNP - 03/09/2024 11:00 AM EDT Vit d 2,000 international units daily over the counter. documented in [facility]10-15-2024 Instructions* Patient Instructions* ASAF Ramos CNP - 03/09/2024 11:00 AM EDT Vit d 2,000 international units daily over the counter. documented in [facility]10-15-2024 Note* Addendum Note - ASAF Ramos CNP - 03/09/2024 11:00 AM EDTAddended by: SEDRICK HEMPHILL on: 03/11/2024 06:38 PM Modules accepted: Level of Service [facility] HospitalOtauhk49-49-8499 NoteAddended by: SEDRICK HEMPHILL on: 03/11/2024 06:38 PM Modules accepted: [facility] Telephone encounter Note* Telephone Encounter - Emily Kingsley MA - 02/13/2024 11:10 AM EDT Notified, needs 90 day supply to mail order pharmacy. [facility] HospitalKtktul76-75-9780 Telephone encounter Note* Telephone Encounter - Emily Kingsley MA - 02/13/2024 11:10 AM EDT ----- Message from ASAF Ramos CNP sent at 02/13/2024 11:09 AM EDT ----- Tsh - normal, continue current dosing of levothyroxine 100 mcg daily [facility] HospitalIpcbdn58-97-0757 Miscellaneous Notes* Telephone Encounter - Emily Kingsley MA - 02/13/2024 11:10 AM EDT Notified, needs 90 day supply to mail order pharmacy. * Telephone Encounter - Emily Kingsley MA - 02/13/2024 11:10 AM EDT ----- Message from ASAF Ramos CNP sent at 02/13/2024 11:09 AM EDT ----- Tsh - normal, continue current dosing of levothyroxine 100 mcg daily documented in [facility]08-28-2024 Evaluation + Plan note* Assessment & Plan Note - ASAF Ramos CNP - 01/21/2024 11:48 AM EDTAssociated Problem(s): Bilateral foot pain Improving. Patient to continue follow-up with podiatry as previously directed. Continue orthotics [facility] HospitalXjtkau58-44-6164 Miscellaneous Notes* Assessment & Plan Note - [...] without complication, without long-term current useof insulin ([facility]) ([facility]) Controlled, continue metformin 1000 mg twice daily * Assessment & Plan Note - ASAF Ramos CNP - 01/21/2024 11:43 AM EDTAssociated Problem(s): Degenerative disc disease, lumbar Follow-up with media reconciliation specialist as directed. documented in this [facility]08-28-2024 Evaluation + Plan note* Assessment & Plan Note - ASAF Ramos CNP - 01/21/2024 11:47 AM EDTAssociated Problem(s): Murmur, cardiac Noted new murmur on physical examination. Will obtain echocardiogram to further evaluate. Most recent EKG in August 2023 (preop)- sinus rhythm. Denies any shortness of breath or chest pain. [facility] HospitalRhtsse62-55-1423 Evaluation + Plan note* Assessment & Plan Note - ASAF Ramos CNP - 01/21/2024 11:46 AM EDTAssociated Problem(s): Iron deficiency anemia Iron levels have improved, hemoglobin still lower than her baseline. Recommend continue iron supplementation. Consider referral to gastroenterology for further evaluation. Recent Cologuard negative, previous colonoscopy in 2017 normal [facility] HospitalYktogc34-08-3223 NoteIron levels have improved, hemoglobin still lower than her baseline. Recommend continue iron supplementation. Consider referral to gastroenterology for further evaluation. Recent Cologuard negative, previous colonoscopy in 2017 [facility]08-28-2024 Evaluation + Plan note* Assessment & Plan Note - ASAF Ramos CNP - 01/21/2024 11:45 AM EDTAssociated Problem(s): Hypothyroidism Uncontrolled. Recent change in levothyroxine dose increased to 100 mcg daily. Recommend starting new dosing and rechecking TSH in 8 weeks [place] [id number] Evaluation + Plan note* Assessment & Plan Note - ASAF Ramos CNP - 01/21/2024 11:44 AM EDTAssociated Problem(s): Hypertension Mild elevation in blood pressure today. 146/80. Continue current medications Avapro 300 mg daily, chlorthalidone 25 mg daily, follow-up as directed. [place] [id number] Evaluation + Plan note* Assessment & Plan Note - ASAF Ramos CNP - 01/21/2024 11:44 AM EDTAssociated Problem(s): Type 2 diabetes mellitus without complication, without long-term current useof insulin ([facility]) ([facility]) Controlled, continue metformin 1000 mg twice daily [place] [id number] Evaluation + Plan note* Assessment & Plan Note - ASAF Ramos CNP - 01/21/2024 11:43 AM EDTAssociated Problem(s): Degenerative disc disease, lumbar Follow-up with media reconciliation specialist as directed. [place] [id number] History of Present illness Narrative* Dian Stuart [...] disease, lumbar Assessment & Plan: Follow-up with media reconciliation specialist as directed. 4. Iron deficiency anemia, [...] Continue orthotics Follow up for 3 month [facility]. SUBJECTIVE/OBJECTIVE: JAIME - Yodit Landin (: 1955) is a 68 y.o. 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 Marroquin (ortho-spine), for lumbar pain, is getting a MRI, and starting physical at [facility] in [place], still seeing chiropractor. States that she might end up getting back surgery. Denies any significant change in her symptoms, denies any bowel or bladder changes Foot pain-sees Dr. Brenner in [facility]- has inserts now and that is [...] Historical Provider, ergocalciferol (Vitamin D-2) 1.25 MG (33089 UT) capsule Take 1 capsule (1.25 mg) [...] CNP 01/21/2024 11:49 AM documented in [facility]08-28-2024 Instructions* Patient Instructions* ASAF Ramos CNP - 01/21/2024 10:20 AM EDT Bring in research records. -Please call Central Scheduling at [phone] to schedule your outpatient test (CT of lung for lung cancer screening) documented in this encounterSCleveland Clinic Marymount HospitalThmhuv45-58-3002 Telephone encounter Note* Telephone Encounter - Emily Kingsley MA - 01/16/2024 9:19 AM EDT Patient is agreeable, scheduled in 8 weeks, orders and med pended, pharmacy verified. Please update sig for B12 as well. [facility] HospitalXzqivo67-60-7640 Miscellaneous Notes* Telephone Encounter - Emily Kingsley [...] mcg daily and rechecking in 8 weeks [id number]-[id number] slightly elevated, may reduce B12 supplement to every other day Folate-normal Transferrin-normal Back to Top Vit d low- 25, recommend vitamin D 50,000 international units once weekly x 12 weeks, then 2000 international units daily [id number]-fhpsnbc (please see other results) Left a message [...] visit is needed. Thanks! documented in this encounterSCleveland Clinic Marymount HospitalFvhynh07-46-9640 Telephone encounter Note* Telephone Encounter - Emily Kingsley MA - 01/15/2024 4:23 PM EDT ----- Message from ASAF Ramos CNP sent at 01/15/2024 4:16 PM EDT ----- Iron and TIBC still low normal range however gradually improving CBC-slight improvement in hemoglobin Ferritin-unchanged TSH-elevated, meaning we need to adjust the levothyroxine, recommend increasing to 100 mcg daily and rechecking in 8 weeks [id number]-[id number] slightly elevated, may reduce B12 supplement to every other day Folate-normal Transferrin-normal Back to Top Vit d low- 25, recommend vitamin D 50,000 international units once weekly x 12 weeks, then 2000 international units daily ljub-fxk-jqejyhy (please see other results) Left a message [...] then no nurse visit is needed. Thanks! [facility] HospitalZmwfpm05-49-6725 Note* Addendum Note - ASAF Ramos CNP - 12/29/2023 8:22 AM EDTAddended by: SEDRICK HEMPHILL on: 12/29/2023 08:22 AM Modules accepted: Orders [facility] HospitalMaatrs66-14-2632 Note* Addendum Note - ASAF Ramos CNP - 12/29/2023 8:22 AM EDTAddended by: SEDRICK HEMPHILL on: 12/29/2023 08:22 AM Modules accepted: Orders [facility] HospitalPosywf68-70-1524 NoteAddended by: SEDRICK HEMPHILL on: 12/29/2023 08:22 AM Modules accepted: [facility]08-05-2024 Miscellaneous Notes* Addendum Note - ASAF [...] like a referral to orthospine in the [place] area. Will have cruise coordinator assist with finding provider in network for her. We will also check vitamin D level at next lab draw on January 14, 2024. Also get DEXA scan completed to further evaluate osteopenia * Telephone Encounter - Abimbola Antony - 12/24/2023 10:38 AM EDT Name of caller: Yodit Landin Contact phone number: [phone] Relationship to Patient: patient Provider: Dr. Key [...] evaluation by orthospine doctor. documented in this encounterSCleveland Clinic Marymount HospitalLbvoyg81-94-2810 Telephone encounter Note* Telephone Encounter - ASAF Ramos CNP - 12/29/2023 7:34 AM EDT Reviewed chart. Refill appropriate. RX sent. [facility] HospitalCevszi51-24-9009 Miscellaneous Notes* Telephone Encounter - ASAF Ramos CNP - 12/29/2023 7:34 AM EDT Reviewed chart. Refill appropriate. RX sent. * Telephone Encounter - Allison Dunlap MA - 12/29/2023 7:17 AM EDT Prescription Request: Last date of refill on this medication Sent 10/22/23 to [facility] day 1 refill documented [facility] this [facility]08-05-2024 Telephone encounter Note* Telephone Encounter - Allison Dunlap MA - 12/29/2023 7:17 AM EDT Prescription Request: Last date of refill on this medication Sent 10/22/[facility] day 1 refill [facility] HospitalOtailk19-97-1149 Note* Addendum Note - ASAF Ramos CNP - 12/24/2023 6:13 PM EDTAddended by: SEDRICK HEMPHILL on: 12/24/2023 06:13 PM Modules accepted: Orders [facility] HospitalJpcvbk80-48-4232 Note* Addendum Note - ASAF Ramos CNP - 12/24/2023 6:13 PM EDTAddended by: SEDRICK HEMPHILL on: 12/24/2023 06:13 PM Modules accepted: Orders [facility] HospitalNqwafw71-74-7510 Note* Addendum Note - ASAF Ramos CNP - 12/24/2023 6:13 PM EDTAddended by: SEDRICK HEMPHILL on: 12/24/2023 06:13 PM Modules accepted: Orders [place] [id number] Note* Addendum Note - ASAF Ramos CNP - 12/24/2023 6:13 PM EDTAddended by: SEDRICK HEMPHILL on: 12/24/2023 06:13 PM Modules accepted: Orders [facility] HospitalZtlxmh50-77-0193 Note* Addendum Note - ASAF Ramos CNP - 12/24/2023 6:13 PM EDTAddended by: SEDRICK HEMPHILL on: 12/24/2023 06:13 PM Modules accepted: Orders [facility] HospitalAtncpe41-92-3277 NoteAddended by: SEDRICK HEMPHILL on: 12/24/2023 06:13 PM Modules accepted: [facility]07-31-2024 NoteCalled patient and reviewed results of x-ray. She would like a referral to orthospine in the [facility] [place]. Will have cruise coordinator assist with finding provider in network for her. We will also check vitamin D level at next lab draw on January 14, 2024. Also get DEXA scan completed to further evaluate [facility]openiaAsp[facility]07-31-[facility] Telephone encounter Note* Telephone Encounter - ASAF Ramos CNP - 12/24/2023 6:13 PM EDT Called patient and reviewed results of x-ray. She would like a referral to orthospine in the [place]. Will have cruise coordinator assist with finding provider in network for her. We will also check vitamin D level at next lab draw on January 14, 2024. Also get DEXA scan completed to further evaluate osteopenia [facility] HospitalRjfroe74-63-9294 Miscellaneous Notes* Addendum Note - ASAF Ramos CNP - 12/24/2023 6:13 PM EDTAddended by: SEDRICK HEMPHILL on: 12/24/2023 06:13 PM Modules accepted: Orders * Telephone Encounter - ASAF Ramos CNP - 12/24/2023 6:13 PM EDT Called patient and reviewed results of x-ray. She would like a referral to orthospine in the [place] area. Will have cruise coordinator assist with finding provider in network for her. We will also check vitamin D level at next lab draw on January 14, 2024. Also get DEXA scan completed to further evaluate osteopenia * Telephone Encounter - Abimbola Antony - 12/24/2023 10:38 AM EDT Name of caller: Yodit Landin Contact phone number: [phone] Relationship to Patient: patient Provider: Dr. Key [...] evaluation by orthospine doctor. documented in this encounterSCleveland Clinic Marymount HospitalKlyqsi80-61-6416 Telephone encounter Note* Telephone Encounter - Abimbola Antony - 12/24/2023 10:38 AM EDT Name of caller: Yodit Landin Contact phone number: [phone] Relationship to Patient: patient Provider: Dr. Key Practice: [facility] Chief Complaint/Reason for Call: Patient is returning call from office regarding x-ray results. Please call patient back to discuss results. Please advise, thank you. Best time of day caller can be reached: Any Patient advised that office/PCP has 24-48 business hours to return their call: Yes [facility] HospitalFrbczq54-79-7774 Telephone encounter Note* Telephone Encounter - Allison Dunlap MA - 12/24/2023 10:27 AM EDT LM for pt to return call [facility] HospitalChccvd44-46-3818 Telephone encounter Note* Telephone Encounter - Allison Dunlap MA - 12/24/2023 10:27 AM EDT ----- Message from 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 APRN - SHOT EXAMINER sent at 12/24/2023 7:39 AM EDT ----- Lumbar x-ray shows severe degenerative disc disease he had an osteopenic bones (this can lead to osteoporosis and increase risk for fractures). Recommend getting dexa scan (bone density test) and checking vit d level -then we can further recommend treatment for the osteopenia, as for the severe degenerative disc disease- recommend evaluation by orthospine doctor. [facility] HospitalHmrnkh18-42-8262 Telephone encounter Note* Telephone Encounter - Dian Stuart - 12/12/2023 7:28 AM EDT MYRNA for Dr. Jimenez had to be mailed out-no fax number provided on website, attempted calling them andno answer and unable to leave voicemail (recording kept rotating). My chart message sent to patientwith list of [employer] [employer] that accept her insurance advised her to please let us know who she would like us to put a referral in for and to call them to be sure they accept her insurance. [facility] HospitalUuveql25-00-1823 Miscellaneous Notes* Telephone Encounter - Dian Stuart - 12/12/2023 7:28 AM EDT MYRNA for Dr. Jimenez had to be mailed out-no fax number provided on website, attempted calling them andno answer and unable to leave voicemail (recording kept rotating). My chart message sent to patientwith list of [employer] [employer] that accept her insurance advised her to please let us know who she would like us to put a referral in for and to call them to be sure they accept her insurance. * Telephone Encounter - ASAF Ramos CNP - 12/11/2023 4:57 PM EDT Please see if we can get records from Dr. Trena Jimenez, chiropractor in [place]. Patient thinks shehad imaging done in 2019? [...] in touch. Thank you! documented in this encounterSCleveland Clinic Marymount HospitalHdylgp45-42-3527 Telephone encounter Note* Telephone Encounter - ASAF Ramos CNP - 12/11/2023 4:57 PM EDT Please see if we can get records from Dr. Trena Jimenez, chiropractor in [place]. Patient thinks shehad imaging done in 2019? That Dr. Jimenez had ordered. Also would like Dr. Jimenez's last treatment plan Also- does she have anyone in mind for podiatry? She can check with her insurance to see who else is in network for her and I can make the referral if needed. [facility] HospitalLwesxn78-28-9670 Telephone encounter Note* Telephone Encounter - Nancy [...] someone would be in touch. Thank you! [facility] HospitalVsyxzx48-86-8608 Telephone encounter Note* Telephone Encounter - Emily Kingsley MA - 12/09/2023 4:50 PM EDT Spoke to Yodit, send to [facility] please. Thanks! [facility] HospitalLivlzk25-55-5562 Miscellaneous Notes* Telephone Encounter - Emily Kingsley MA - 12/09/2023 4:50 PM EDT Spoke to Yodit, send to [facility] please. Thanks! * Telephone Encounter - Moshe Key MD - 12/09/2023 4:30 PM EDT What pharmacy does she want this sent to * Telephone Encounter - Kourtney Hoff MA - 12/09/2023 3:02 PM EDT Spoke to Yodit, states that her old doctor from [place], Dr. Caitlin Hope, was the one who prescribed it for her last, and gave her 23 refills. States that since she is no longer down in [place], she cannot get it filled through them. [...] on this medication: 10/22/2022 documented in this encounterSCleveland Clinic Marymount HospitalJtrjur92-80-0614 Telephone encounter Note* Telephone Encounter - Moshe Key MD - 12/09/2023 4:30 PM EDT What pharmacy does she want [address]cwvry06-97-8436 Telephone encounter Note* Telephone Encounter - Kourtney Hoff MA - 12/09/2023 3:02 PM EDT Spoke to Yodit, states that her old doctor from [place], Dr. Caitlin Hope, was the one who prescribed it for her last, and gave her 23 refills. States that since she is no longer down in [place], she cannot get it filled through them. 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 [address]Ogopqf84-13-7453 Telephone encounter Note* Telephone Encounter - Moshe Key MD - 12/09/2023 10:51 AM EDT Refused, this does not look like we ever prescribed the medication [place] [id number] Telephone encounter Note* Telephone Encounter - Kourtney Hoff MA - 12/09/2023 9:26 AM EDT Prescription Request: Last medication check: 10/22/2023 Last physical exam: 04/23/2023 Next scheduled appointment: 01/21/2024 Last date of refill on this medication: 10/22/2022 [place] [id number] Telephone encounter Note* Telephone Encounter - Emily Kingsley MA - 12/03/2023 10:30 AM EDT Notified, she will get the ferrous sulfate OTC, I added it to her med list. She also states that [facility] has contacted us 2x for her refills, meds are pended. Orders as well. Scheduled recheck. [facility] HospitalLmfomu24-04-6722 Miscellaneous Notes* Telephone Encounter - Emily Kingsley [...] to check thyroid functioning. documented in this encounterSCleveland Clinic Marymount HospitalDzwugc39-66-3742 Telephone encounter Note* Telephone Encounter - Emily [...] folate, and TSH to check thyroid functioning. [facility] HospitalUhlvpp57-46-3888 Evaluation + Plan note* Assessment & Plan Note - ASAF Ramos CNP - 12/01/2023 5:59 PM EDTAssociated Problem(s): Bilateral foot pain Obtain recent podiatry notes. Follow-up with podiatry as scheduled [facility] HospitalKskbys97-11-5794 Miscellaneous Notes* Assessment & Plan Note - [...] obtain recent progress notes from chiropractor and boat rental clerk for further plan of care. Consider imaging of the pelvis hip area if indicated. Last imaging was done per patient in2019 by chiropractor documented in this encounterSCleveland Clinic Marymount HospitalWosxig59-06-5541 Evaluation + Plan note* Assessment & Plan Note - ASAF Ramos CNP - 12/01/2023 5:57 PM EDTAssociated Problem(s): Left buttock pain Highly suspect sciatic pain. Patient with significant trigger point upon palpation. Will obtain recent progress notes from chiropractor and boat rental clerk for further plan of care. Consider imaging of the pelvis hip area if indicated. Last imaging was done per patient in2019 by chiropractor [facility] HospitalZbadpy60-36-3722 History of Present illness Narrative* Allison Dunlap MA - 12/01/2023 9:00 AM EDT Patient verified by last name and date of . * ASAF Ramos CNP - 12/01/2023 9:00 AM EDT [...] obtain recent progress notes from chiropractor and boat rental clerk for further plan of care. Consider imaging [...] iron levels. Patient recently got back from [place] and has some questions about her leg/feet pain and left lower back hip pain. She has seen Dr. Beltran-podiatry for foot pain. States she she is supposed to have some furthertesting done but does not remember exactly what testing it is. She got new shoes and may be fitted f or orthotics. When she was in [place] she had an episode of severe left hip pain making it difficult to walk. Shedid see a specialist down there who diagnosed her with piriformis dysfunction. She also is seeing achiropractor here in [place]. Patient states she had a fracture of [...] CNP 12/01/2023 5:59 PM documented in this [facility]07-02-2024 History of Present illness Narrative* Nadya Harkins PA-C - 11/25/2023 1:00 PM EDT Images from the original note were not included. [facility] [address] Dept: [phone] Dept 11/25/2023 Chief Complaint Patient presents with [...] NONE Nadya Harkins PA-C to Dr. Avila [facility] Hand and Upper Extremity Plastic and Reconstructive Surgery 11/25/2023 at 1:40 PM (Please note that portions of this note may have been completed with a voice recognition program. Efforts were made to edit the dictations but occasionally words are mis-transcribed.) documented in this [facility]05-30-2024 Telephone encounter Note* Telephone Encounter - Nadya Harkins PA-C - 10/23/2023 8:32 AM EDT Okay, thank you [employer] Phone: [phone] Miscellaneous Notes* Telephone Encounter - Nadya Harkins PA-C - 10/23/2023 8:32 AM EDT Okay, thank you * Telephone Encounter - Faiza Navarro - 10/22/2023 4:57 PM EDT Name of caller: Yodit Contact phone number: [phone] Relationship to Patient: patient Provider: Nadya Practice: [...] return their call: No documented in this encounterSCleveland Clinic Marymount HospitalMdsjvn88-84-8061 Telephone encounter Note* Telephone Encounter - Faiza Navarro - 10/22/2023 4:57 PM EDT Name of caller: Yodit Contact phone number: [phone] Relationship to Patient: patient Provider: Nadya Practice: [...] business hours to return their call: No [facility] HospitalVvwatm05-52-8982 Evaluation + Plan note* Assessment & Plan Note - ASAF Ramos CNP - 10/22/2023 4:14 PM EDTAssociated Problem(s): Type 2 diabetes mellitus without complication, without long-term current useof insulin (CMS/[facility]) ([facility]) Controlled. Continue metformin at 1000 mg twice daily [facility] HospitalWezkjv72-19-3266 Evaluation + Plan note* Assessment & Plan Note - ASAF Ramos CNP - 10/22/2023 4:14 PM EDTAssociated Problem(s): Swelling of both lower extremities Denies any chest pain or shortness of breath, weight is stable. Patient reports being on furosemidepreviously and had stopped the medication about 4 weeks ago. Will check CMP and have her restart furosemide 20 mg daily [facility] HospitalRnbhfp99-85-6673 Miscellaneous Notes* Assessment & Plan Note - [...] pain Follow-up with podiatry documented in this [facility]05-29-2024 Evaluation + Plan note* Assessment & Plan Note - ASAF Ramos CNP - 10/22/2023 4:13 PM EDTAssociated Problem(s): Hypertension Controlled continue irbesartan 300 mg daily, chlorthalidone 25 mg daily [facility] HospitalHdpvkr36-30-4245 Evaluation + Plan note* Assessment & Plan Note - ASAF Ramos CNP - 10/22/2023 4:07 PM EDTAssociated Problem(s): Hereditary hemochromatosis (HCC) Has been stable. Check CBC iron levels today, if normal consider checking every 6 months [facility] HospitalVufowh45-53-9277 Evaluation + Plan note* Assessment & Plan Note - ASAF Ramos CNP - 10/22/2023 4:07 PM EDTAssociated Problem(s): Bilateral foot pain Follow-up with podiatry [facility] HospitalFxcbxr46-54-3631 History of Present illness Narrative* Dian Stuart [...] month. Still taking the metformin. Going to [place] on Friday and will be coming 11/22/2023- [...] CNP 10/22/2023 4:14 PM documented in this [facility]05-21-20[facility] History of Present illness Narrative* Nadya Harkins PA-C - 10/14/2023 1:30 PM EDT Images from the original note were not included. [facility]ORTS [facility]IC[facility] [address] [place] [address] Dept: [phone] Dept 10/14/2023 Chief Complaint Patient presents with [...] she is going out and going to [employer] as she has pain and hypersensitivity over the scar when people shake her hand or when the area brushes up against something. She was offered a prescription for formal occupational therapy for scar tissue massage and desensitization. She prefers an external referral to Occupational Therapy in [place] which is closer to her home. She [...] occasionally words are mis-transcribed.) documented in this [facility]05-21-2024 Instructions* Patient Instructions* Omar Fitch ATC [...] sink is also helpful. documented in this [facility]04-23-2024 History of Present illness Narrative* Nadya [...] by: AB/ADITYA Harkins PA-C to Dr. Avila [facility] Hand and Upper Extremity Plastic and Reconstructive Surgery (Please note that portions of this note may have been completed with a voice recognition program. Efforts were made to edit the dictations but occasionally words are mis-transcribed.) documented in this [facility]04-23-2024 Instructions* Patient Instructions* Nadya Harkins PA-C [...] Where can you learn more? Go to [email or web address] and sign in to your [employer] account. Enter Z454 in the Search Health Information box to learn more about Wrist : Rehab Exercises. If you do not have an account, please click on the Sign Up Now link. Current as of: July 26, 2019 Content Version: 12.6 [employer]. Care instructions adapted under license by [employer]. If you have questions about a medical condition or this instruction, always ask your healthcare professional. [employer] disclaims any warranty or liability for your use of this information. documented in this [facility]04-11-2024 Evaluation + Plan note* Assessment & Plan Note - 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 APRN - [facility] - 09/04/2023 2:49 PM EDTAssociated Problem(s): Visit for wound check No concerns. Additional padding added to the edge of the plaster splint, lower half of the dressingrewrapped with the Drake wrap. Patient to follow-up with her surgeon as scheduled [address]Dfafxm10-38-7797 Miscellaneous Notes* Assessment & Plan Note - ASAF Ramos CNP - 09/04/2023 2:49 PM EDTAssociated Problem(s): Visit for wound check No concerns. Additional padding added to the edge of the plaster splint, lower half of the dressingrewrapped with the Drake wrap. Patient to follow-up with her surgeon as scheduled documented in this encounterSErica Ville [address]Jwmhjt22-74-4070 Telephone encounter Note* Telephone Encounter - ASAF Ramos CNP - 09/04/2023 12:48 PM EDT Noted. Agree with disposition. [address] StreetGlmlac85-40-6531 Miscellaneous Notes* Telephone Encounter - ASAF Ramos [...] unable to drive back over to the [place] location. R: OV scheduled for today with Julianna Hemphill with back line office staff approval. No further needsat this time. Reason for Disposition Patient wants to be seen Protocols used: Post-Op Symptoms and Vxvarxffl-BYRZY-WC documented in this [facility]04-11-2024 History of Present illness Narrative* Kourtney [...] CNP 09/04/2023 2:49 PM documented in this [facility]04-11-2024 Telephone encounter Note* Telephone Encounter - Iris Morales RN - 09/04/2023 9:36 AM EDT S: Patient spoke with [facility] nurse regarding post op problem-surgical bandage B: Surgery-09/03/23-RIGHT VOLAR RADIAL WRIST MASS EXCISION A: Patient had wrist surgery yesterday states she needs bandage rewrapped and she does not have supplies at home. Patient states there is a sharp area that is exposed on the splint. Patient states she is unable to drive back over to the [facility]. R: OV scheduled for today with Julianna Hemphill with back line office staff approval. No further needsat this time. Reason for Disposition Patient wants to be seen Protocols used: Post-Op Symptoms and Kllnwungl-BQBJU-RO [place] [id number] Note* Perioperative Nursing Note - Latesha Collins RN - 09/03/2023 11:21 AM EDT Pt and family verbalized understanding of recovery instructions, pt verbalized a readiness to be discharged home. Pt discharged home via wheelchair accompanied by RN/volunteer. Pt has had all their belongings returned to them at discharge [address] StreetFlvkve22-87-7849 Note* Perioperative Nursing Note - Latesha Collins RN - 09/03/2023 11:21 AM EDT Pt and family verbalized understanding of recovery instructions, pt verbalized a readiness to be discharged home. Pt discharged home via wheelchair accompanied by RN/volunteer. Pt has had all their belongings returned to them at discharge [place] [address]Hgzqmt83-23-9401 Miscellaneous Notes* Perioperative Nursing Note - Latesha Collins RN - 09/03/2023 11:21 AM EDT Pt and family verbalized understanding of recovery instructions, pt verbalized a readiness to be discharged home. Pt discharged home via wheelchair accompanied by RN/volunteer. Pt has had all their belongings returned to them at discharge * Perioperative Nursing Note - Latesha Collins RN - 09/03/2023 10:26 AM EDT Pt arousable, oral airway removed- pt tolerating well. Will monitor * Perioperative Nursing Note - Latesha Collins RN - 09/03/2023 10:14 AM EDT Pt received from OR via cart, spont. Resp. With SECURITY OPERATIONS SPECIALIST in attendance. Placed on monitor. Monitor alarms on in PACU Pt received from OR via cart, spont. Resp. With SECURITY OPERATIONS SPECIALIST in attendance. 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 Fire risk was [...] 09/03/2023 , 9:59 AM documented in this encounterSCleveland Clinic Marymount HospitalFixugg21-68-5677 Note* Perioperative Nursing Note - Latesha Collins RN - 09/03/2023 10:26 AM EDT Pt arousable, oral airway removed- pt tolerating well. Will monitor [facility] HospitalVrtomm19-57-8588 Note* Perioperative Nursing Note - Latesha Collins RN - 09/03/2023 10:26 AM EDT Pt arousable, oral airway removed- pt tolerating well. Will monitor [place] [address]Yfbpuy20-29-1612 Note* Perioperative Nursing Note - Latesha Collins RN - 09/03/2023 10:14 AM EDT Pt received from OR via cart, spont. Resp. With SECURITY OPERATIONS SPECIALIST in attendance. Placed on monitor. Monitor alarms on in PACU Pt received from OR via cart, spont. Resp. With SECURITY OPERATIONS SPECIALIST in attendance. Placed on monitor.Monitor alarms on in PACU - pt has oral airway in place - will monitor [place] [id number] Note* Perioperative Nursing Note - Latesha Collins RN - 09/03/2023 10:14 AM EDT Pt received from OR via cart, spont. Resp. With SECURITY OPERATIONS SPECIALIST in attendance. Placed on monitor. Monitor alarms on in PACU Pt received from OR via cart, spont. Resp. With SECURITY OPERATIONS SPECIALIST in attendance. 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 We discussed both [...] iscomfortable providing informed consent for the procedure. [facility]04-10-2024 History and physical note* Chay Patel PA-C [...] Landin regarding the natural history, etiology, and shelter consequences of her condition. We discussed both [...] consent for the procedure. documented in this [facility]04-10-2024 Hospital Discharge instructions* Discharge Instructions* Chay [...] * Moderate Sedation in Adults Discharge Instructions (Italian) documented in this [facility]03-26-2024 Telephone encounter Note* Telephone Encounter - Moshe Key MD - 08/19/2023 3:31 PM EDT I do not know what this is about? [employer] Phone: [phone] 613-295603-26-2024 Miscellaneous Notes* Telephone Encounter - Moshe Key MD - 08/19/2023 3:31 PM EDT I do not know what this is about? * Telephone Encounter - Jessica Gil - 08/19/2023 2:00 PM EDT Name of caller: Yodit Contact phone number: [phone] Relationship to Patient: patient Provider: Dr. Key [facility] Chief Complaint/Reason for Call: appt with Dr. Alvin Beltran DPM on 2:45 Best time of day caller can be reached: any Patient advised that office/PCP has 24-48 business hours to return their call: N/A Pt has surg on 09/03/[address] Leos documented in this [facility]03-26-2024 Telephone encounter Note* Telephone Encounter - Jessica Gil - 08/19/2023 2:00 PM EDT Name of caller: Yodit Contact phone number: [phone] Relationship to Patient: patient Provider: Dr. Key Practice: Shan HERRON Chief Complaint/Reason for Call: appt with Dr. Alvin Beltran DPM on 2:45 Best time of day caller can be reached: any Patient advised that office/PCP has 24-48 business hours to return their call: N/A Pt has surg on 09/03/[address] Leos VadioCotygc49-98-8276 Telephone encounter Note* Telephone Encounter - Nadya Harkins PA-C - 08/08/2023 2:13 PM EDT PAT orders signed [employer] Phone: [phone] Miscellaneous Notes* Telephone Encounter - Nadya Harkins PA-C - 08/08/2023 2:13 PM EDT PAT orders signed * Telephone Encounter - Linda Baig - 08/07/2023 10:42 AM EDT Sent patient [employer] message with all sx information * Telephone Encounter - Linda Baig - 08/07/2023 10:34 AM EDT Called [facility]. Spoke with Marcela. No PA required. Ref# [id number] * Telephone Encounter - Linda Baig - 08/06/2023 10:03 AM EDT Sent to sx schdeuling * Telephone Encounter - Linda Baig - 08/05/2023 1:42 PM EDT ----- Message from Merlin Johnson ATC sent at 08/05/2023 1:36 PM EDT ----- DERIC SURGERY SCHEDULING SLIP Patient: Yodit Landin Date of : 1955 Date of Surgery: 09/03/23 @ 9:30am Day of Surgery: Friday Hospital: [place] Duration: 60 min Type: Outpatient PAT: Yes 08/26@[facility]@10:00pm Med Clearance: No Anesthesia: MAC/Local Block: None Position: Supine Table: Stretcher Arm Board: Roll-up arm table Radiology: None CPT Code: 79632 DX Code: M67.431 Case # [id number] Consent: right volar radial Wrist mass excision FollowUp: Tor[facility] in 10-14 days XRays: no OT Splint needed at first PO appointment: no Special Requests Hand tray [place] Ira blade Vessel loops available but not open 3.0 monocryl 4.0 nylon Small xeroform Splint material 4 inch plaster documented in this encounterSCleveland Clinic Marymount HospitalTdaryt79-66-8679 Telephone encounter Note* Telephone Encounter - Linda Baig - 08/07/2023 10:42 AM EDT Sent patient MyChart message with all sx information [facility] HospitalWpelnt65-32-7381 Miscellaneous Notes* Telephone Encounter - Linda Baig - 08/07/2023 10:42 AM EDT Sent patient MyChart message with all sx information * Telephone Encounter - Linda Baig - 08/07/2023 10:34 AM EDT Called [facility]. Spoke with Marcela. No PA required. Ref# [id number] * Telephone Encounter - Linda Baig - 08/06/2023 10:03 AM EDT Sent to [facility] * Telephone Encounter - Linda Baig - 08/05/2023 1:42 PM EDT ----- Message from Merlin Johnson ATC sent at 08/05/2023 1:36 PM EDT ----- DERIC SURGERY SCHEDULING SLIP Patient: Yodit Landin Date of : 1955 Date of Surgery: 09/03/23 @ 9:30am Day of Surgery: Friday Hospital: [place] Duration: 60 min Type: Outpatient PAT: Yes 08/26@[facility]@10:00pm Med Clearance: No Anesthesia: MAC/Local Block: None Position: Supine Table: Stretcher Arm Board: Roll-up arm table Radiology: None CPT Code: 03063 DX Code: M67.431 Case # [id number] Consent: right volar radial Wrist mass excision FollowUp: Biro in 10-14 days XRays: no OT Splint needed at first PO appointment: no Special Requests Hand tray [place] Ira blade Vessel loops available but not open 3.0 monocryl 4.0 nylon Small xeroform Splint material 4 inch plaster documented in this encounterSCleveland Clinic Marymount HospitalYtwwox28-22-4213 Telephone encounter Note* Telephone Encounter - Linda Baig - 08/07/2023 10:34 AM EDT Called [facility]. Spoke with Marecla. No PA required. Ref# [id number] [facility] HospitalApwtpd40-65-0472 Telephone encounter Note* Telephone Encounter - Linda Baig - 08/06/2023 10:03 AM EDT Sent to manny scott [facility] HospitalShysku53-15-2864 Telephone encounter Note* Telephone Encounter - Linda Baig - 08/05/2023 1:42 PM EDT ----- Message from Merlin Johnson ATC sent at 08/05/2023 1:36 PM EDT ----- DERIC SURGERY SCHEDULING SLIP Patient: Yodit Landin Date of : 1955 Date of Surgery: 09/03/23 @ 9:30am Day of Surgery: Friday Hospital: [place] Duration: 60 min Type: Outpatient PAT: Yes 08/26@[facility]@10:00pm Med Clearance: No Anesthesia: MAC/Local Block: None Position: Supine Table: Stretcher Arm Board: Roll-up arm table Radiology: None CPT Code: 91269 DX Code: M67.431 Case # [id number] Consent: right volar radial Wrist mass excision FollowUp: Biro in 10-14 days XRays: no OT Splint needed at first PO appointment: no Special Requests Hand tray [place] Ira blade Vessel loops available but not open 3.0 monocryl 4.0 nylon Small xeroform Splint material 4 inch plaster [facility] HospitalQrpyct33-19-5361 History of Present illness Narrative* Austin Leos MD - 08/05/2023 1:00 PM EDT Images from the original note were not included. [facility]ORTS MEDICINE [address] [place] [address] Dept: [phone] Dept 08/05/2023 Chief Complaint Patient presents with [...] compartment release) surgery by Dr. Woo in [place] in 2022 MRI: No Has not had an MRI Patient reports that she has had bilateral wrist masses for the past year. She states she previously underwent surgery to remove one of her wrist masses on her right side however it recurred. She hasnot had any treatments on her left side. She takes vzdl-zhb-owgnrwj pain medicine for other problems and helps [...] Size: 2 cm X 2 cm- right, [id number] left Location: radial, volar Depth: superficial Mobility: [...] plan. She will follow-up with my physician assistant professor of nursing postoperatively. I had an extensive discussion with Ms. Yodit Landin and any family members present regarding the natural history, etiology, and shelter consequences of her condition. I have outlined [...] Follow-up: Yodit will followup with my physician assistant professor of nursing, Nadya Harkins PA-C post operatively. She knows to call the office with any questions or concerns in the interim. Future Imaging: NONE Austin Leos MD Hand, Plastic, and Reconstructive Surgery [facility] Department of Orthopedics and Sports Medicine 08/05/2023 at 1:13 PM (Please note that portions of this note may have been completed with a voice recognition program. Efforts were made to edit the dictations but occasionally words are mis-transcribed.) documented in this [facility]03-12-2024 Instructions* Patient Instructions* Merlin Johnson ATC - 08/05/2023 1:00 PM EDT Linda Houser Certified Adaptive Physical Educator for Dr. Austin Leos F: [phone] documented in this [facility]02-29-2024 Evaluation + Plan note* Assessment & Plan Note - ASAF Ramos CNP - 07/24/2023 11:20 AM ESTAssociated Problem(s): Other specified hypothyroidism Stable. Continue levothyroxine 75 mcg daily [facility] HospitalEguwml93-90-9711 Miscellaneous Notes* Assessment & Plan Note - [...] without complication, without long-term current useof insulin ([facility]/HCC) (HCC) Controlled. Continue metformin 1000 mg twice daily * Assessment & Plan Note - ASAF Ramos CNP - 07/24/2023 11:07 AM ESTAssociated Problem(s): Hypertension Controlled. Continue irbesartan 300 mg daily * Assessment & Plan Note - ASAF Ramos CNP - 07/24/2023 11:07 AM ESTAssociated Problem(s): Hereditary hemochromatosis (HCC) Has been stable. Check cbc, iron levels today. documented in this [facility]02-29-2024 Evaluation + Plan note* Assessment & Plan Note - ASAF Ramos CNP - 07/24/2023 11:10 AM ESTAssociated Problem(s): Bilateral foot pain Previously had orthotics which alleviated the problem- refer to podiatry for evaluation and treatment [facility]02-29-2024 Evaluation + Plan note* Assessment & Plan Note - ASAF Ramos CNP - 07/24/2023 11:09 AM ESTAssociated Problem(s): Mass of joint of right wrist Most likely ganglion cyst. Follow up with ortho as scheduled. [facility]02-29-2024 Evaluation + Plan note* Assessment & Plan Note - ASAF Ramos CNP - 07/24/2023 11:08 AM ESTAssociated Problem(s): Type 2 diabetes mellitus without complication, without long-term current useof insulin ([facility]) ([facility]) Controlled. Continue metformin 1000 mg twice daily [facility]02-29-2024 Evaluation + Plan note* Assessment & Plan Note - ASAF Ramos CNP - 07/24/2023 11:07 AM ESTAssociated Problem(s): Hypertension Controlled. Continue irbesartan 300 mg daily [facility]02-29-2024 Evaluation + Plan note* Assessment & Plan Note - ASAF Ramos CNP - 07/24/2023 11:07 AM ESTAssociated Problem(s): Hereditary hemochromatosis (HCC) Has been stable. Check cbc, iron levels today. [facility] [id number] History of Present illness Narrative* Dian Stuart - 07/24/2023 10:00 AM EST Patient was identified by name and Date of . Venipuncture completed Patient was identified by name and date of -orders verified in [facility]. Site cleansed with alcohol swab and using a sterile needle, left AC accessed per [facility]'s policy and procedure. Bandage applied to site [...] Fasting usually less than 120 consistantly. Last qrfqzjryczL8c was 6.8. Currently on metformin daily Ganglion [...] the problem. Would like referral to a boat rental clerk. Denies any numbness or tingling of the [...] CNP 07/24/2023 11:21 AM documented in this [facility]02[facility]29-2024 Instructions* Patient Instructions* ASAF Ramos CNP - 07/24/2023 10:[address] [facility] at [facility] [place]. documented in this [facility]02-06-2024 Discharge summary Author Juan Jose Stallworth [facility] July 01, 2023 8:05pm Note Date/Time July 01, 2023 6 :59pm [facility] Medical Records Department [address] [place] [address] Emergency Department Summary 07/01/23 MR#: [id number] Acct: [id number] Name: YODIT LANDIN Rep #:[id number] : 1955 67 From: Juan Jose Stallworth [...] or vaginal complaints. She denies abdominal pain. [facility] Medical History (Updated 07/01/23 @ 20:02 by [...] Reports moist mucous membranes HEENT Narrative: Positive Jackson-Hallpike. Nystagmus noted. normocephalic and atraumatic Eyes PERRL [...] this. I was able to log into [facility], and I was not able to find [...] % (Auto) 52.3 Lymph % (Auto) 31.6 Shannon % (Auto) 12.1 H Eos % (Auto) [...] Sl. Cloudy Urine pH 5.0 Ur Specific Monte[place]uma 1.020 Urine Protein 15 H Urine Glucose [...] problems, contact your Primary Care Provider. Call [facility] ([phone]) or report to the closest Emergency Room. Call 911 if necessary. 07/01/232004 <Electronically signed by Juan Jose Stallworth DO> Cosigner Signature (if applicable): CC: No Primary Care Physician ~ Signed [facility] Work Phone: [phone] 931-746901-16-2024 Telephone encounter Note* Telephone Encounter - 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, ASAF - SHOT EXAMINER - 06/10/2023 7:28 AM EST Received xray results. Please notify patient, No bony mass. Recommend seeing media reconciliation specialist (previously referred) for further evaluation as may need an MRI to further evaluate. (This will be ordered by them if needed). [id number] Miscellaneous Notes* Telephone Encounter - ASAF Ramos CNP - 06/10/2023 7:28 AM EST Received xray results. Please notify patient, No bony mass. Recommend seeing media reconciliation specialist (previously referred) for further evaluation as may need an MRI to further evaluate. (This will be ordered by them if needed). * Telephone Encounter - Emily Kingsley MA - 06/09/2023 10:18 AM EST Noted. * Telephone Encounter - Coty Smith - 06/09/2023 9:45 AM EST See previous TE from today Name of caller: Yodit Contact phone number: [phone] Relationship to Patient: patient Provider: Dr Key [...] return their call: N/A documented in [facility]2024 Telephone encounter Note* Telephone Encounter - Emily Kingsley MA - 06/09/2023 10:18 AM EST Noted. [facility]Qykwse01-97-7270 Telephone encounter Note* Telephone Encounter - Coty Smith - 06/09/2023 9:45 AM EST See previous TE from today Name of caller: Yodit Contact phone number: [phone] Relationship to Patient: patient Provider: Dr Key [...] business hours to return their call: N/A [facility] [id number] Evaluation + Plan note* Assessment & Plan Note - ASAF Ramos CNP - 06/04/2023 3:20 PM ESTAssociated Problem(s): Mass of joint of right wrist Suspect ganglion cyst of the right wrist. Will obtain imaging to rule out anything worrisome. Continue compression sleeve. Referral placed to orthopedics for further evaluation and treatment due to size and bothersome. [facility] HospitalViukbk33-54-5861 Miscellaneous Notes* Assessment & Plan Note - ASAF Ramos CNP - 06/04/2023 3:20 PM ESTAssociated Problem(s): Mass of joint of right wrist Suspect ganglion cyst of the right wrist. Will obtain imaging to rule out anything worrisome. Continue compression sleeve. Referral placed to orthopedics for further evaluation and treatment due to size and bothersome. documented in [facility]01[facility]24 History of Present illness Narrative* Dian Stuart - 06/04/2023 1:20 PM EST Patient was identified by name and Date of . * 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, LIQUOR GRINDER MILL OPERATOR - SHOT EXAMINER - 06/04/2023 1:20 PM EST Images from [...] of carpal tunnel surgery in 06/2022 in [place] on the right wrist. Prior to Admission [...] CNP 06/04/2023 3:21 PM documented in [facility]29[facility]2023 Evaluation + Plan note* Assessment & Plan Note - ASAF Ramos CNP - 04/23/2023 1:24 PM ESTAssociated Problem(s): Hypertension Blood pressure initially elevated. Continue current medications and follow-up for labs [facility] [id number] Miscellaneous Notes* Assessment & Plan Note - [...] Will check hemoglobin A1c documented in this [facility]29-2023 Evaluation + Plan note* Assessment & Plan Note - ASAF Ramos CNP - 04/23/2023 1:23 PM ESTAssociated Problem(s): Hereditary hemochromatosis (HCC) Check CBC CMP TIBC iron and ferritin. Consider referral to hematology. [facility] [id number] Evaluation + Plan note* Assessment & Plan Note - ASAF Ramos CNP - 04/23/2023 1:22 PM ESTAssociated Problem(s): Type 2 diabetes mellitus without complication, without long-term current useof insulin ([facility]) ([facility]) Controlled. Glucose readings have been good that she brought in from home. Will check hemoglobin A1c [facility] HospitalNpbzso25-92-3331 History of Present illness Narrative* Dian Stuart - 04/23/2023 10:00 AM EST Patient was identified by name and Date of . Health Main: AWV-Today DEXA-declined Colon-completed in [place]([facility] x2 yrs ago)-sent MYRNA Pneumo-discuss with provider-done at visit DM foot-pended DM dental-done a year ago Zoster-stated it was completed-[place] rust [id number] Lung-declined RSV-declined Flu-completed at [facility] Patient was identified by name and [...] from the original note were not included. [facility] [address] [facility] [address] Dept: [phone] Dept Chief Complaint: Yodit Landin is an [...] Also reviewed during this visit: Found an apartment/[facility] [place]. Will be moving soon. Will be going [...] kg/m No results found. documented in [facility]11-29-2023 Instructions* Patient Instructions* ASAF Ramos CNP [...] Recommendations: A preventive eye exam by an eyewear manufacturing tech is recommended every 1-2 years to screen for glaucoma, cataracts, macular degeneration, and other eye disorders. A preventive dental visit is recommended every 6 months. Try to get at least 150 minutes of exercise per week or 10,000 steps per day on a pedometer. You need 1200-1500mg of calcium and 6173-2462 international units of vitamin D per day. [...] Everywhere. * Pneumococcal Conjugate Vaccine (20-Valent), ADULT (Italian) documented in [facility]11-08-2023 Evaluation + Plan note* Assessment & Plan Note - ASAF Ramos CNP - 04/02/2023 12:51 PM ESTAssociated Problem(s): Primary osteoarthritis involving multiple joints Obtain records. For now we will continue indomethacin 50 mg daily for pain. [facility] [id number] Miscellaneous Notes* Assessment & Plan Note - [...] consider referral to hematology [facility]08-2023 Evaluation + Plan note* Assessment & Plan Note - ASAF Ramos CNP - 04/02/2023 12:50 PM ESTAssociated Problem(s): Hypertension Initial blood pressure elevated 161/81. Repeat blood pressure good 132/78. Continue chlorthalidone 25 mg daily, Lasix 20 mg, irbesartan 300 mg daily. [facility] [id number] Evaluation + Plan note* Assessment & Plan Note - ASAF aRmos CNP - 04/02/2023 12:49 PM ESTAssociated Problem(s): Type 2 diabetes mellitus without complication, without long-term current useof insulin (CMS/HCC) (HCC) Controlled. Glucose readings fasting under 110 consistently per patient diabetes log. Will check hemoglobin A1c at next visit. [facility] [id number] Evaluation + Plan note* Assessment & Plan Note - ASAF Ramos CNP - 04/02/2023 12:10 PM ESTAssociated Problem(s): Hereditary hemochromatosis (HCC) Obtain records. Return for labs as scheduled (check cbc, cmp, TIBC, iron and ferritin) consider referral to hematology [facility] HospitalYihwmd17-36-7603 History of Present illness Narrative* Dian Stuart - 04/02/2023 11:00 AM EST Patient was identified by name and Date of . Health Main: AWV-needs scheduled DEXA-pended Colon-pended Covid-declined PHQ-completed Hep C-declined Tdap-declined Mammo-completed Sept Zoster-declined Pneumo-declined [place] [place] Flu-completed [facility] MYRNA SENT TO [facility](PCP[facility] AND [facility] * ASAF Ramos [...] complication, without long-term current use of insulin ([facility]/HCC) (HCC) Assessment & Plan: Controlled. Glucose readings [...] previous primary care provider [place] provider, last seen? -01/2023 by previous provider. Specialists/other providers? 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 Chief complaint(s): New Patient and Health Maintenance (AWV-needs scheduled/DEXA-pended/Colon-pended/Covid-declined/PHQ-completed/Hep C-declined/Tdap-declined/Mammo-completed Jan/Zoster-declined/Pneu mo-declined/Flu-completed [facility]) Has been out of state for about 10 years. 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 Recently moved back to [place] to be close to her son and fwvmkzzf-qr-eip whom she states were having some marital [...] Reports she did have a colonoscopy last [phone] in [place]-reports she was told it was normal -jodi [...] is tolerable. Also sees a chiropractor in [place]. Hypertension-states her blood pressure is normally in [...] CNP 04/02/2023 12:59 PM documented in this [facility]SC[facility] HospitalCzwhqh90-66-2002 Telephone encounter Note* Telephone Encounter - Juana Alegria - 03/21/2023 9:43 AM EDT Name of caller: Yodit Landin Relation to patient: patient Contact phone number: [phone] Appointment scheduled with: 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 Appointment date [...] provider should be aware of: diabetic, hemochromatosis [facility] HospitalYjchwr97-21-3378 Miscellaneous Notes* Telephone Encounter - Juana Alegria - 03/21/2023 9:43 AM EDT Name of caller: Yodit Landin Relation to patient: patient Contact phone number: [phone] Appointment scheduled with: 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 Appointment date [...] aware of: diabetic, hemochromatosis [facility] No data available for this section [facility] Evaluation note* Diagnosis Type 2 diabetes mellitus without complication, without long-term current use of insulin (CMS/HCC) (HCC)- Primary Hereditary hemochromatosis (HCC) Hereditary hemochromatosis Primary hypertension Unspecified essential hypertension [facility]* Diagnosis Routine general medical examination at health care facility- Primary Routine general medical examination at a health care facility Type 2 diabetes mellitus without complication, without long-term current use of insulin (CMS/HCC) (HCC) Primary hypertension Unspecified essential hypertension Hereditary hemochromatosis (HCC) Hereditary hemochromatosis Hypothyroidism, unspecified type Immunization due documented in this encounter [facility]* Diagnosis Mass of joint of right wrist- Primary documented in this encounter [facility]* Diagnosis Onset Date Resolution Status Dehydration acute Nausea vomiting and diarrhea acute Orthostasis acute [facility] Work Phone: [facility] note* Diagnosis Hereditary hemochromatosis (HCC)- Primary Hereditary hemochromatosis Primary hypertension Unspecified essential hypertension Type 2 diabetes mellitus without complication, without long-term current use of insulin (CMS/HCC) (HCC) Bilateral foot pain Mass of joint of right wrist Other specified hypothyroidism [facility]* Diagnosis Mass of joint of right wrist Ganglion, right wrist documented in this encounter [facility]* Diagnosis Mass of joint of right wrist- Primary Ganglion, right wrist [facility]* Diagnosis Mass of joint of right wrist- Primary Ganglion, right wrist documented in this encounter [facility]* Diagnosis H/O excision of mass- Primary Ganglion, right wrist documented in this encounter [facility] note* Diagnosis Visit for wound check- Primary documented in this encounter [facility] note* Diagnosis S/P excision of ganglion cyst- Primary Mass of joint of right wrist [facility]* Diagnosis Mass of joint of right wrist S/P excision of ganglion cyst documented in this encounter [facility] note* Diagnosis Type 2 diabetes mellitus without complication, without long-term current use of insulin (CMS/HCC) (HCC)- Primary Hereditary hemochromatosis (HCC) Hereditary hemochromatosis Swelling of both lower extremities Bilateral foot pain Primary hypertension Unspecified essential hypertension documented in this encounter [facility] note* Diagnosis Mass of joint of right wrist- Primary S/P excision of ganglion cyst documented in this encounter [facility]* Diagnosis Left buttock pain- Primary Unspecified myalgia and myositis Bilateral foot pain Colon cancer screening Special screening for malignant neoplasms, colon documented in this encounter [facility] note* Diagnosis Anemia, unspecified type- Primary Iron deficiency anemia, unspecified iron deficiency anemia type Primary hypertension Unspecified essential hypertension Gastroesophageal reflux disease without esophagitis Esophageal reflux Hypothyroidism, unspecified type Mixed hyperlipidemia documented in this encounter [facility] note* Diagnosis Chronic left-sided low back pain without sciatica- Primary Left buttock pain Unspecified myalgia and myositis documented in this encounter [facility]* Diagnosis Chronic left-sided low back pain without sciatica documented [facility]* Diagnosis Osteopenia of lumbar spine- Primary Degenerative disc disease, lumbar [facility]* Diagnosis Swelling of both lower extremities documented in this encounter [facility]* Diagnosis Osteopenia of lumbar spine- Primary Degenerative disc disease, lumbar documented in this encounter [facility]* Diagnosis Vitamin D deficiency- Primary Hypothyroidism, unspecified type documented in this encounter [facility]* Diagnosis Type 2 diabetes mellitus without [...] Bilateral foot pain [facility] [place] [facility]* Diagnosis History of tobacco use Personal history of tobacco use, presenting hazards to health [facility] [place] [facility]* Diagnosis Murmur, cardiac Undiagnosed cardiac murmurs [facility] [place] [facility]* Diagnosis Hypothyroidism, unspecified type [facility] [place] [facility]* Diagnosis Encounter for screening mammogram for malignant neoplasm of breast documented [facility] [place] [facility]* Diagnosis Preoperative clearance- Primary Unspecified pre-operative examination Type 2 diabetes mellitus without complication, without long-term current use of insulin (CMS/HCC) (HCC) Primary hypertension Unspecified essential hypertension [facility] [place] [facility]* Diagnosis Preoperative clearance- Primary Unspecified pre-operative examination Type 2 diabetes mellitus without complication, without long-term current use of insulin (CMS/HCC) (HCC) Primary hypertension Unspecified essential hypertension [facility] [place] [facility]* Diagnosis Type 2 diabetes mellitus [...] Unspecified essential hypertension [facility] [place] [facility]* Diagnosis Type 2 diabetes mellitus [...] hypercholesterolemia Immunization due documented in this encounter [facility] note* Diagnosis Type 2 diabetes mellitus [...] right knee- Primary documented in this encounter [facility] note* Diagnosis Type 2 diabetes mellitus [...] Vitamin D deficiency documented in this encounter [facility] note* Diagnosis Type 2 diabetes mellitus [...] Hypothyroidism, unspecified type documented in this encounter [facility] Discharge instructions No data available for this section [facility] Progress note No data available for this section [facility] Reason for referral (narrative)* Consultation (Routine) - Pending Review Specialty Diagnoses / Procedures Referred By Moody bey Referred To Contact Orthopedic Surgery Diagnoses Mass of joint of right wrist 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 APRN - CNP [address] [place] [address] [facility] [place] [address] [place] [address] Referral ID Status Reason Start Date Expiration Date Visits Requested Visits Authorized [id number] Pending Review Specialty Services Required 06/04/2023 06/03/2024 1 1 [facility] for referral (narrative)* Consultation (Routine) - Pending Review Specialty Diagnoses / Procedures Referred By Moody bey Referred To Contact Podiatry Diagnoses Bilateral foot pain Procedures FL OFFICE[facility]OUT[facility]IENT [facility] 60 MINUTES 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 APRN - CNP [address] [facility] [place] [address] Alvin Beltran, DPOlivia [address] [place] [address] Referral ID Status Reason Start Date Expiration Date Visits Requested Visits Authorized [id number] Pending Review Specialty Services Required 07/24/2023 07/23/2024 1 1 Mani Frey for referral (narrative)* Consultation (Routine) - Pending Review Specialty Diagnoses / Procedures Referred By Moody t Referred To Contact Orthopedic Surgery Diagnoses Degenerative disc disease, lumbar 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 APRN - CNP [address] [place] [address] [place] [address] Yanick Meléndez [facility] [place] [address] Referral ID Status Reason Start Date Expiration Date Visits Requested Visits Authorized [id number] Pending Review Specialty Services Required 12/29/2023 12/28/2024 1 1 Mani Frey for referral (narrative)No reason for referral information availableWUniversity Hospitals [facility] Work Phone: Summary Purpose Family History No Family History Records Found Advance Directives No Advanced Directives Records Found Advance Directive Response Recorded Date/ Time Living Will No July 01 5:51pm Power of Information Security No July 01, 2023 5:51pm Latest Code [...] Do you have a Healthcare Power of Information Security? No December 31, 2023 2:55pm Chief Complaint [...] with contrast, bubble, strain, and 3D PRN FL ECHO TTHRC R-T 2D W/WOM-MODE COMPL SPEC&COLR D FL TTE W OR WO FOL WCON,DOPPLER Karrieenthal, Sedrick, LIQUOR GRINDER MILL OPERATOR - SHOT EXAMINER [address] [facility] [place] [address] [place] [address] Referral ID Status Reason Start Date Expiration Date V isits Requested Visits Authorized [id number] Pending Review 01/21/2024 01/20/2025 1 1 Specialty Diagnoses / Procedures Referred By Contac t Referred To Contact Radiology Diagnoses History of tobacco use Procedures CT lung screening low dose Bridenthal, Sedrick, LIQUOR GRINDER MILL OPERATOR - SHOT EXAMINER [address] [facility] [place] [address] [place] [address] Referral ID Status Reason Start Date Expiration Date V isits Requested Visits Authorized [id number] Pending Review 01/21/2024 01/20/2025 1 1 Specialty Diagnoses / Procedures Referred By Moody t Referred To Contact Occupational Therapy Diagnoses Mass of joint of right wrist S/P excision of ganglion cyst Procedures FL OFFICE/OUTPATIENT NEW HIGH MDM 60 MINUTES Nadya Harkins PA-C [address] [facility] [address] [place] [address] Referral ID Status Reason Start Date Expiration Date Visits Requested Visits Authorized [id number] Pending Review Eval and Treat 10/14/2023 10/13/2024 99 99 Additional Source Comments Reason for Visit (unrecogniz ed section and content) Reason Onset Date Comments New Patient 03/21/2023 Reason Comments New Patient Health Maintenance AWV-needs tzffenhhlWJRM-sxmptyClwjs-hqkuufRdjpe-declinedPHQ-completedHep K-zvcrtfcjKdqi-cdqbabhlOdyzk-completed OpyyBudbog-unrqezeuFeapvd-zdbfjygiHyz-completed [facility] Reason Comments Medicare Annual Wellness Visit Initial Health Maintenance KGF-WoqwkTVSA-kocooj edColon-completed in [place])Pneumo-discuss with providerDM foot-pendedDM dental-done a year agoMelissastisidro-stated it was completed-[place] [id number]-ohtqkhyjBQN-rbzafmorJgn-biumnojcd at [employer] [facility] Reason Comments Cyst Bilateral-but right is the one that is painful Reason Comments Medication Check Foot Pain Pended referral Reason Comments New Patient Right wrist mass Specialty Diagnoses / Procedures Referred By Moody bey Referred To Contact Orthopedic Surgery Diagnoses Mass of joint of right wrist 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, LIQUOR GRINDER MILL OPERATOR - SHOT EXAMINER [address] [facility] [place] [address] [place] [address] [facility] [address] [place] [address] Referral ID Status Reason Start Date Expiration Date V isits Requested Visits Authorized [id number] Closed Specialty Services Required 06/04/2023 06/03/2024 1 1 Reason Onset Date Comments Surgery Scheduling 08/05/2023 Surgery Sched uling Reason Onset Date Comments appt with Dr. Alvin Beltran, DPM<9>on 2 :45 08/19/2023 Specialty Diagnoses / Procedures Referred By Moody bey Referred To Contact Diagnoses Ganglion, right wrist Ganglion, right wrist [M67.431] Procedures FL EXCISION GANGLION WRIST DORSAL/VOLAR PRIMARY RIGHT VOLAR RADIAL WRIST MASS EXCISION Deric, Austin Martinez MD [address] [facility] [address] [place] [address] [facility] [address] [place] [address] Referral ID Status Reason Start Date Expiration Date Visits Re quested Visits Authorized [id number] 1 1 Reason Comments Post-op Problem Bandaging [...] CT lung screening low dose Bridenthal, Sedrick, LIQUOR GRINDER MILL OPERATOR - SHOT EXAMINER [address] [facility] [place] [address] [place] [address] Referral ID Status Reason Start Date Expiration Date Visits Re quested Visits Authorized [id number] Closed 01/21/2024 01/20/2025 1 1 Specialty Diagnoses / Procedures Referred By Contac t Referred To Contact Cardiology Diagnoses Murmur, cardiac Procedures Transthoracic echocardiogram (TTE) complete with contrast, bubble, strain, and 3D PRN FL ECHO TTHRC R-T 2D W/WOM-MODE COMPL SPEC&COLR D FL TTE W OR WO FOL WCON,DOPPLER Bridenthal, Sedrick, LIQUOR GRINDER MILL OPERATOR - SHOT EXAMINER [address] [facility] [place] [address] Referral ID Status Reason Start Date Expiration Date Visits Re quested Visits Authorized [id number] Closed 01/21/2024 01/20/2025 1 1 Reason Onset Date Comments Results 02/13/2024 Reason Comments Pre-op Exam Surgical clearance Reason Onset Date Comments Med Refill 03/25/2024 Reason Comments Medicare Annual Wellness Visit Subsequen t Blood Work Health Maintenance Tdap vaccine- agree2 nd shingles vaccine- advised to go to pharmacy Dental exam- not doneEye exam- go to [facility] [place] - will send for record Reason Onset Date Comments Knee Pain 05/24/2024 Reason Comments Knee Pain Right-started a week ago Reason Onset Date Comments Results 05/25/2024 Reason Comments Follow-up Knee Pain Reason Onset Date Comments Med Refill 09/22/2024 Reason Onset Date Comments Medication Question 09/22/2024 Care Teams (unrecognized sec tion and content) Transit Driver Relationship Specialty Start [place] [address] PCP - General Family Medicine 04/02/23 Transit Driver Relationship Specialty Start Date End Date [facility] [place] [address] PCP - General Family Medicine 04/02/23 Transit Driver Relationship Specialty Start Date End Date [facility] [place] [address] PCP - General Family Medicine 04/02/23 Transit Driver Relationship Specialty Start Date End Date [facility] [place] [facility] [place] [address] PCP - General Family Medicine 04/02/23 Team Status: Active Member Role Status Dates No Primary Care Physician Primary Care Provider Active Team Status: Inactive Member Role Status Dates Gerry Gray PA, PA Attending Provider Active Team Status: Inactive Member Role Status Dates Dr. Juan Jose Stallworth , DO Emergency Provider Active No Primary Care Physician Primary Care Provider Active Transit Driver Relationship Specialty Start Date End Date Moshe Key MD [address] [place] [address] PCP - General Family Medicine 04/02/23 Transit Driver Relationship Specialty Start [place] [address] PCP - General Family Medicine 04/02/23 Transit Driver Relationship Specialty Start Date [place] [address] PCP - General Family Medicine 04/02/23 Transit Driver Relationship Specialty Start Date [place] [address] PCP - General Family Medicine 04/02/23 Transit Driver Relationship Specialty Start Date [place] [address] PCP - General Family Medicine 04/02/23 Transit Driver Relationship Specialty Start Date End Date Moshe Key MD [address] [place] [address] PCP - General Family Medicine 04/02/23 Transit Driver Relationship Specialty Start Date End Date 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 LIQUOR GRINDER MILL OPERATOR - SHOT EXAMINER [address] [facility] [place] [address] PCP - General Nurse Practitioner Family 09/03/23 Transit Driver Relationship Specialty Start Date End Date Moshe Key MD [address] [facility] [place] [address] PCP - General Family Medicine 09/04/23 Transit Driver Relationship Specialty Start Date End Date Moshe Key MD [address] [facility] [place] [address] PCP - General Family Medicine 09/04/23 Transit Driver Relationship Specialty Start Date End Date Moshe Key MD [address] [facility] [place] [address] PCP - General Family Medicine 09/04/23 Transit Driver Relationship Specialty Start Date End Date Moshe Key MD [address] [facility] [place] [address] PCP - General Family Medicine 09/04/23 Transit Driver Relationship Specialty Start Date End Date Moshe Key MD [address] [facility] [place] [address] PCP - General Family Medicine 09/04/23 Transit Driver Relationship Specialty Start Date End Date Moshe Key MD [address] [facility] [place] [address] PCP - General Family Medicine 09/04/23 Transit Driver Relationship Specialty Start Date End Date Moshe Key MD [address] [facility] [place] [address] PCP - General Family Medicine 09/04/23 Transit Driver Relationship Specialty Start Date End Date Moshe Key MD [address] [facility] [place] [address] PCP - General Family Medicine 09/04/23 Transit Driver Relationship Specialty Start Date End Date Moshe Key MD [address] [facility] [place] [address] PCP - General Family Medicine 09/04/23 Transit Driver Relationship Specialty Start Date End Date Moshe Key MD [address] [facility] [place] [address] PCP - General Family Medicine 09/04/23 Transit Driver Relationship Specialty Start Date End Date Moshe Key MD [address] [facility] [place] [address] PCP - General Family Medicine 09/04/23 Transit Driver Relationship Specialty Start Date End Date Moshe Key MD [address] [facility] [place] [address] PCP - General Family Medicine 09/04/23 Transit Driver Relationship Specialty Start Date End Date Moshe Key MD [address] [facility] [place] [address] PCP - General Family Medicine 09/04/23 Transit Driver Relationship Specialty Start Date End Date Moshe Key MD [address] [facility] [place] [address] PCP - General Family Medicine 09/04/23 Transit Driver Relationship Specialty Start Date End Date Moshe Key MD [address] [facility] [place] [address] PCP - General Family Medicine 09/04/23 Transit Driver Relationship Specialty Start Date End Date Moshe Key MD [address] [facility] [place] [address] PCP - General Family Medicine 09/04/23 Transit Driver Relationship Specialty Start Date End Date Moshe Key MD [facility] [place] [address] PCP - General Family Medicine 09/04/23 Transit Driver Relationship Specialty Start Date End Date Moshe Key MD [facility] [place] [address] PCP - General Family Medicine 09/04/23 Transit Driver Relationship Specialty Start Date End Date Moshe Key MD [address] [place] [address] [place] [address] PCP - General Family Medicine 09/04/23 Transit Driver Relationship Specialty Start Date End Date Moshe Key MD [address] [facility] [place] [address] PCP - General Family Medicine 09/04/23 Transit Driver Relationship Specialty Start Date End Date Moshe Key MD [address] [place] [address] [place] [address] PCP - General Family Medicine 09/04/23 Transit Driver Relationship Specialty Start Date End Date Moshe Key MD [address] [place] [address] PCP - General Family Medicine 09/04/23 Transit Driver Relationship Specialty Start Date End Date Moshe Key MD [address] [facility] [place] [address] PCP - General Family Medicine 09/04/23 Transit Driver Relationship Specialty Start Date End Date Moshe Key MD [address] [facility] [place] [address] PCP - General Family Medicine 09/04/23 Transit Driver Relationship Specialty Start Date End Date Moshe Key MD [address] [facility] [place] [address] PCP - General Family Medicine 09/04/23 Transit Driver Relationship Specialty Start Date End Date Moshe Key MD [address] [facility] [place] [address] PCP - General Family Medicine 09/04/23 Transit Driver Relationship Specialty Start Date End Date Moshe Key MD [address] [facility] [place] [address] PCP - General Family Medicine 09/04/23 Transit Driver Relationship Specialty Start Date End Date Moshe Key MD [address] [facility] [place] [address] PCP - General Family Medicine 09/04/23 Transit Driver Relationship Specialty Start Date End Date Moshe Key MD [address] [facility] [place] [address] PCP - General Family Medicine 09/04/23 Transit Driver Relationship Specialty Start Date End Date Moshe Key MD [address] [place] [address] PCP - General Family Medicine 09/04/23 Transit Driver Relationship Specialty Start Date End Date Moshe Key MD [address] [place], [place] [address], [place] [address] PCP - General Family Medicine 09/04/23 Transit Driver Relationship Specialty Start Date End Date Moshe Key MD [address] [place], [place] [address] [address] PCP - General Family Medicine 09/04/23 Transit Driver Relationship Specialty Start Date End Date Moshe Key MD [address] [place], [place] [address], [place] [address] PCP - General Family Medicine 09/04/23 Team [...] August 30, 2024 End: August 30, 2024 Transit Driver Relationship Specialty Start Date End Date Moshe Key MD [address] [place], [place] [id number] PCP - General Family Medicine 09/04/23 Transit Driver Relationship Specialty Start Date End Date Moshe Key MD [address] [place], [place] [id number] PCP - General Family Medicine 09/04/23 Transit Driver Relationship Specialty Start Date End Date Moshe Key MD [address] [place] [id number] PCP - General Family Medicine 09/04/23 INFORMATION SOURCE (unrecogn ized section and content) DATE CREATED AUTHOR 06/08/2023 [facility] ([place]) DATE CREATED AUTHOR AUTHOR'S ORGANIZ ATION 05/27/2024 [facility] DATE CREATED AUTHOR AUTHOR'S ORGANIZ ATION 09/28/2024 [facility] DATE CREATED AUTHOR AUTHOR'S ORGANIZ ATION 12/04/2024 [facility] Goals (unrecognized section [...] at 200 mL/hr, Administer over 30 Minutes, Cena to O.R., On Fri09/03/23 at 0715, For 1 dose, Preprocedure, Administer within 1 hour prior to incision. Recommend to repeat in 3-4 hours after initial dose if still intra-op. Mini-Bag Plus bag, Suspected Indication (Select all that apply): Surgical Prophylaxis 921 (New Bag - Prov ider: Alaina Rubio APRN - SECURITY OPERATIONS SPECIALIST) famotidine (Pepcid) 20 mg in sodium chloride [...] dialysis. 0811 (New Bag - Prov ider: rFancis Hagan RN)0913 (Continued by Anesthesia - Provider: [...] hydralazine IV order. lidocaine-EPINEPHrine (Xylocaine W/EPI) 1 %-1:011214 injection (CANCELED) As needed, Starting on Fri09/03/23 [...] BE BASED ON THE PRIMARY CLINICAL RECORDS. [facility]. provides no warranty or guarantee of the accuracy or completeness of information in this document.
--- NOTE | 2024-12-05 15:11 | CT_ITS ---
PROCEDURE: ABDOMEN/PELVIS W IV CONT ONLY 12/05/2024 REASON FOR EXAM: ABDOMINAL PAIN TECHNIQUE: ABDOMEN/PELVIS W IV CONT ONLY Coronal and Sagittal reconstruction series were provided. CONTRAST: Isovue 370 VOLUME: 70 mL One or more dose reduction techniques were used (e.g., Automated exposure control, adjustment of the mA and/or kV according to patient size, use of iterative reconstruction technique. RADIATION DOSE SUMMARY: CTDlvol: 23.3 mGy DLP: 1786 mGycm COMPARISON: None FINDINGS: Lung bases: Lung bases are clear. Multivessel coronary calcifications. Aortic valvular and thoracic aortic calcification. Small hiatal hernia. Liver: Unremarkable. Gallbladder: Surgically absent. Spleen: Unremarkable Pancreas: Normal size without evidence of mass surrounding inflammation or ductal dilation. Adrenals: Unremarkable Kidneys: No hydronephrosis or radiodense stone Bladder: Unremarkable. Reproductive Organs: Prior hysterectomy. Adnexal regions are unremarkable. Bowel: No obstruction or inflammation. There is colonic diverticulosis without significant inflammatory changes to suggest acute diverticulitis. Appendix: The appendix is not identified. There is no inflammatory process identified in the right lower quadrant to suggest appendicitis. Lymph nodes: Slightly prominent subcentimeter nodes in the upper abdomen. Vasculature: Diffuse atherosclerotic calcifications are noted. Bones: Degenerative changes of the spine. Postoperative changes at L5-S1, without evidence of hardware complication. Soft tissues: Unremarkable CT/Abdomen/Pelvis W IV Cont ONLY IMPRESSION: 1. No acute intra-abdominal abnormality. 2. Colonic diverticulosis, without additional findings to suggest acute divert iculitis. Reading Location: [facility]
[2024-12-05 15:13] LABS: Anion Gap 16 (5-15); BUN 31 mg/dL (4-19); BUN/Creat Ratio 17.6 RATIO (10-20); Calcium,Total 9.3 mg/dL (7.6-11.0); Carbon Dioxide 22.5 mmol/L (21.0-32.0); Chloride 99 mmol/L (98-108); Estimated Creatinine Clearance 32.80 ml/min (50-250); Glucose 145 mg/dL (70-99); Potassium 4.1 mmol/L (3.3-5.1)
[2024-12-05 15:35] LABS: Troponin T High Sensitivity 730 ng/L (<=14)
[2024-12-05] MEDS: 0.9% Normal Saline (1000mL) 1,000 ML 999 ML IV (15:46)
[2024-12-05 16:20] LABS: AST(SGOT) 77 U/L (<=31); Alanine Aminotransfer ALT/SGPT 27 U/L (<=34); Albumin, Serum 4.3 g/dL (3.4-4.8); Alkaline Phosphatase 30 U/L (35-104); Bilirubin, Direct 0.15 mg/dL (0.00-0.30); Globulin 2.8 g/dL (2.2-4.2); Lipase 60 U/L (13-75)
[2024-12-05] MEDS: Heparin Injection (Vial) 5,000 UNIT/ML VIAL 4000 UNIT IV (16:34)
[2024-12-05 16:35] LABS: Prothrombin Time (Protime)PT. 13.6 SECONDS (11.7-14.9)
[2024-12-05] MEDS: HEPARIN/D5w 25,000 UNITS 25,000 UNITS/250 ML IV.SOLN. 10 UNITS CONT INF (16:36)
[2024-12-05 16:37] LABS: Partial Thromboplast Time 25.8 Seconds (24.1-36.2)
--- NOTE | 2024-12-05 16:54 | PCM.HP.STD ---
HPI - General General Date of Admission: 12/05/24 Date of Service: 12/05/24 Chief Complaint: Chest pain HPI Narrative The patient is a 69 y/o F w/ PMHx: Obesity, Hypothyroidism, GERD, HTN, HLD, Former tobacco use, Chronic anemia, CKD stage III unclear subtype per GFR trending who presents to the [facility] ED on 12/05/2024 with history of recent potential pain fume exposure over the last 48 hours with onset of lightheadedness and dizziness especially with standing with onset of nausea as well as episode of midsternal chest discomfort the day prior with concurrent nausea and a bout of emesis but no dyspnea or diaphoresis resolving but given ongoing vague complaints prompted eventual ED evaluation. She notes the chest discomfort did not radiate and had no specific associated symptoms aside from the nausea and bouts of emesis which have abated. She described the discomfort as aching but severe enough to be 10 out of 10 in severity. She denies any current recurrent chest pain since then. She notes it lasted approximately 1 hour. Workup in the ED included T98.4, heart rate 48, BP 132/72, respiratory rate 14, 98% on room air, orthostatics with unchanged heart rate/BP not significantly widened but systolic 79 very to systolic 94, BP as low as 79/48 with orthostatics, respiratory rate 14, 98% on room air, most recent repeat vitals heart rate 81, BP 101/60, respiratory rate 17, 97% on room air, CBC with WC 6.9, hemoglobin 0.1, MCV 95.4, platelet 169 without marked shift, unremarkable coags, CMP with anion gap 16, BUN/creatinine 31/1.78, GFR 30, glucose 145, AST 77, alk phos 30, initial troponin 730, chest x-ray with mild vascular pulmonary congestion with no acute cardiopulmonary findings otherwise, CT abdomen and pelvis with no acute intra-abdominal finding with chronic diverticulosis with noted clear lung bases of note, EKG with sinus rhythm with no acute evidence of ischemia. ED physician did discuss case with pattern and chain maker who recommended heparin drip. [facility] Medical History Wears partial dentures Wears contact lenses Wears glasses Post-menopausal Thyroid disease Diabetes Arthritis High cholesterol Hemochromatosis Injury of head and neck Gastric reflux Former smoker History of pain when walking Hypertension History of echocardiogram Dehydration Nausea vomiting and diarrhea Home Medications ?Medication ?Instructions ?Recorded ?Last Taken ?Type chlorthalidone 25 mg tablet 25 mg PO DAILY 01/16/24 03/28/24 History furosemide 20 mg tablet 20 mg PO DAILY 01/16/24 03/28/24 History irbesartan 300 mg tablet 300 mg PO DAILY 01/16/24 03/29/24 History levothyroxine 75 mcg capsule 150 mcg PO DAILY 01/16/24 03/29/24 History metformin 1,000 mg tablet 1,000 mg PO .QAM 01/16/24 03/28/24 History omega 0-ggg-jyk-fish oil 1,200 mg 1 cap PO DAILY 01/16/24 03/28/24 History (144 mg-216 mg) capsule (Fish Oil) omeprazole 40 mg capsule,delayed 40 mg PO QDAY 01/16/24 03/29/24 History release vitamin E (dl, acetate) 180 mg 180 mg PO DAILY 01/16/24 03/28/24 History (400 unit) capsule digestive enzymes 1 tab PO TID 03/15/24 03/28/24 History ergocalciferol (vitamin D2) 1,250 1,250 mcg PO QWEEK 03/15/24 03/27/24 History mcg (50,000 unit) capsule (Vitamin D2) metformin 500 mg tablet 500 mg PO .1500, 2100 03/15/24 03/28/24 History vit A 750 mcg-vit C 150 mg-D3 1 cap PO TID 03/15/24 03/28/24 History 31.25 xna-dzcs-jyjkniekx-quercet capsule (Immune Essentials Daily) acetaminophen 500 mg tablet 500 mg PO Q6H #30 tabs 03/30/24 Unknown Rx fenofibrate 160 mg tablet 160 mg PO QDAY 07/02/24 Unknown History rosuvastatin 10 mg tablet 10 mg PO QHS 09/23/24 Unknown History Allergy/AdvReac Type Severity Reaction Status Date / Time codeine AdvReac Intermediate Vomiting Verified 12/05/24 13:38 sulfamethoxazole (From AdvReac Intermediate Vomiting Verified 12/05/24 13:38 Bactrim) trimethoprim (From Bactrim) AdvReac Intermediate Vomiting Verified 12/05/24 13:38 Family History (Updated 12/05/24 @ 17:[address] Calista Weeks MD) Mother Ovarian cancer Father CAD (coronary artery disease) Heart disease Hypertension Myocardial infarction Surgical History History of surgery on right wrist Hx of repair of right rotator cuff History of 2 sections Hx of ovarian cystectomy Hx of hysterectomy Hx of tonsillectomy Social History (Updated 12/05/24 @ 17:[address] Calista Weeks MD) household members: none Smoking Status: Former smoker how long ago did patient quit smoking: Quit 7 years prior, approximate 1 pack/day since teen until quit. alcohol intake: never substance use type: does not use ROS ROS Narrative Admission Review of Systems: CONSTITUTIONAL: No weight loss, fever, chills, + weakness or fatigue. HEENT: Eyes: No visual loss, blurred vision, double vision or yellow sclerae. Ears, Nose, Throat: No hearing loss, sneezing, congestion, runny nose or sore throat. SKIN: No rash or itching, lesions, wounds. CARDIOVASCULAR: + Chest pain. No palpitations, edema, orthopnea, syncopal events. RESPIRATORY: No shortness of breath, cough or sputum, wheezing, hemoptysis. GASTROINTESTINAL: + anorexia, nausea, vomiting. No diarrhea, abdominal pain, melena, BRBPR. GENITOURINARY: No dysuria, frequency, urgency or retention. NEUROLOGICAL: No headache, dizziness, syncope, paralysis, ataxia, numbness or tingling in the extremities, focal weakness, change in bowel or bladder control, seizure. MUSCULOSKELETAL: + muscle, back pain, joint pain or stiffness. HEMATOLOGIC: + Chronic anemia, no specific easy history of bleeding or bruising. LYMPHATICS: No enlarged nodes. No history of splenectomy. PSYCHIATRIC: No history of depression or anxiety. ENDOCRINOLOGIC: No reports of sweating, cold or heat intolerance. No polyuria or polydipsia. ALLERGIES: No history of asthma, hives, eczema or rhinitis. Vital Signs Vital Signs Vital Signs: 12/05/24 13:36 12/05/24 14:32 12/05/24 14:40 Temperature 98.4 F Temperature Source Oral Pulse Rate 48 L Pulse Rate [Lying] 77 Pulse Rate [Sitting (for 1 minute prior to obtaining)] 79 Pulse Rate [Standing (for 1 minute prior to obtaining)] 81 Respiratory Rate 14 Respiratory Effort Normal Non-Labored Respiratory Pattern Normal Blood Pressure 132/72 H Blood Pressure [Lying] 79/48 L Blood Pressure [Sitting (for 1 minute prior to obtaining)] 92/5 L Blood Pressure [Standing (for 1 minute prior to obtaining)] 94/56 L Blood Pressure Mean 92 Blood Pressure Mean [Lying] 58 Blood Pressure Mean [Sitting (for 1 minute prior to obtaining)] 34 Blood Pressure Mean [Standing (for 1 minute prior to obtaining)] 68 Pulse Ox 98 Oxygen Delivery Method Room Air 12/05/24 15:30 12/05/24 15:45 Temperature Temperature Source Pulse Rate 84 81 Pulse Rate [Lying] Pulse Rate [Sitting (for 1 minute prior to obtaining)] Pulse Rate [Standing (for 1 minute prior to obtaining)] Respiratory Rate 18 17 Respiratory Effort Respiratory Pattern Blood Pressure 104/61 101/60 Blood Pressure [Lying] Blood Pressure [Sitting (for 1 minute prior to obtaining)] Blood Pressure [Standing (for 1 minute prior to obtaining)] Blood Pressure Mean 76 74 Blood Pressure Mean [Lying] Blood Pressure Mean [Sitting (for 1 minute prior to obtaining)] Blood Pressure Mean [Standing (for 1 minute prior to obtaining)] Pulse Ox 97 97 Oxygen Delivery Method Weight Weight: 208 lb 8 oz Body Mass Index (BMI) 35.8 Physical Exam Narrative Physical Examination: General: Awake, alert, oriented x 3 and cooperative, seated upright in the ED bed, denies any current chest discomfort, very anxious with discussions about current presentation and plan of care. Skin: Normal color, normal turgor, no icterus, no cyanosis except occasional stage ecchymoses, abrasion. HEENT: AT/NC, EOMI, PERRLA, mildly dry MM, no carotid bruits or JVD noted. Lungs: Mildly diminished, greater bases, mildly increased respiratory rate but no distress, no appreciated rales, ronchi or wheezing. Heart: Regular rate and rhythm; no gallop, rub audible. Abdomen: Soft, obese, NTTP, ND, hyperactive BS, no HSM. Extremities: No cyanosis, no clubbing, no significant distal pitting edema. Neurological: Patient awake, alert, oriented as noted, cognitive function intact; pupils equally reactive to light and accommodation, cranial nerves grossly normal, moving all 4 extremities, no focal deficits, strength moderately globally decreased secondary to acute presentation complaints. Psychiatric: Affect appears very anxious, tearful with discussions, does not have underlying history of anxiety or depression. Results Lab / Micro Data 12/05/24 14:27 12/05/24 14:27 Labs: Laboratory Results - last 24 hr 12/05/24 14:27: WBC 6.9, RBC 3.50 L, Hgb 11.1 L, Hct 33.4 L, MCV 95.4, MCH 31.7, MCHC 33.2, RDW Std Deviation 46.8 H, RDW Coeff of Christina 13.5, Plt Count 169, MPV 9.9, Immature Gran % (Auto) 0.400, Neut % (Auto) 65.8, Lymph % (Auto) 24.2, [place] % (Auto) 8.5, Eos % (Auto) 0.7, Baso % (Auto) 0.4, Absolute Neuts (auto) 4.5, Absolute Lymphs (auto) 1.66, Nucleated RBC % 0, PT 13.6, INR 1.0, APTT 25.8, Sodium 138, Potassium 4.1, Chloride 99, Carbon Dioxide 22.5, Anion Gap 16 H, BUN 31 H, Creatinine 1.78 H, Estim Creat Clear Calc 32.80 L, Est GFR (MDRD) Non-Af 30 L, BUN/Creatinine Ratio 17.6, Glucose 145 H, Calcium 9.3, Total Bilirubin 0.26, Direct Bilirubin 0.15, AST 77 H, ALT 27, Alkaline Phosphatase 30 L, Troponin T High Sens 730 H*, Total Protein 7.1, Albumin 4.3, Globulin 2.8, Lipase 60 Imaging Radiology Impression Chest X-Ray 12/05/24 14:40 IMPRESSION: Mild pulmonary vascular congestion. No focal consolidation. Reading Location: [id number] Abdomen/Pelvis CT 12/05/24 15:11 IMPRESSION: 1. No acute intra-abdominal abnormality. 2. Colonic diverticulosis, without additional findings to suggest acute diverticulitis. Reading Location: [facility] Assessment & Plan Assessment/Plan (1) Non-ST elevation MD (NSTEMI): PLAN: Plan The patient is a 69 y/o F w/ PMHx: Obesity, Hypothyroidism, GERD, HTN, HLD, Former tobacco use, Chronic anemia, CKD stage III unclear subtype per GFR trending who presents to the [facility] ED on 12/05/2024 with history of recent potential pain fume exposure over the last 48 hours with onset of lightheadedness and dizziness especially with standing with onset of nausea as well as episode of midsternal chest discomfort the day prior with concurrent nausea and a bout of emesis but no dyspnea or diaphoresis resolving but given ongoing vague complaints prompted eventual ED evaluation. #1. Chest Pain w/ Acute NSTEMI: EKG in ED w/ sinus rhythm with no acute evidence of ischemia, CXR w/ mild congestion with no acute cardiopulmonary findings otherwise. Trop elevated, initial 730. Will admit to PCU, maintain on a monitored bed, continue serial cardiac enzymes and EKGs. Obtain magnesium level upon admission. Continue heparin drip. Continue medical management w/ asa, statin w/ AM FLP. Given orthostasis and hypotension holding all hypertensive regimen. Repeat orthostatics in AM. ECHO requested. Cardiology consulted, continue judicious hydration with n.p.o. status at midnight. Pending repeat 12/06/2024 renal function may need to delay cardiac catheterization if renal function not improved to baseline given LAURA presentation concurrently. BNP requested. ASA. #2. LAURA on Chronic Kidney Disease Stage III unclear subtype per GFR trend secondary to likely GI losses with recent nausea and emesis bouts as noted/nephrotoxic medication: Admission BUN/Cr 31/1.78, GFR 30, baseline renal function primarily 1.1-1.2, repeat BMP in AM. #3. Chronic normocytic anemia: Admission hemoglobin 11.1, MCV 95.4 however significantly dehydrated, baseline hemoglobin noted previously primarily more recently 8-9 but labs distant and last noted 03/30/2024 hemoglobin 9.6 at that time, will continue to trend. #4. Hypertension: Given presentation with orthostasis, acute kidney injury and low blood pressure holding all hypertensive regimen, add back once clinically appropriate. #5. Hyperlipidemia: Continue home statin and fenofibrate regimen. AM FLP. #6. Diabetes mellitus type II: Hold oral home regimen, ADA diet until n.p.o. status, HgbA1c requested given #1 presentation, accu checks w/ ISS. #7. Obesity: Weight loss and lifestyle changes encouraged. #8. Former tobacco use: Encourage continued tobacco cessation. #9. GERD: Will maintain on PPI. #10. Hypothyroidism: Will continue patient on levothyroxine regimen. #11. DVT prophylaxis: Heparin drip to be continued. #12. CODE status: Patient HCPOA is not in place but she notes she would want her sister Kanchan to be her medical decision-maker if necessary and living will is currently in place. Discussed CODE status at length including difference between FULL code, DNR-CCA and DNR-CC status. Patient information security analyst also present for discussions and assisted in calming patient as she was very stressed and anxious occasionally tearful during these discussions. Following discussions about the differences in these status, requested Full Code status. Advanced Care Planning Face to Face Time: 16 minutes. Charges/Coding Visit Charges Inpatient E&M: 57244 Init Hosp L3 Procedures Hospitalists Procedures: 99322 Advncd Care Plan 30 Min
--- OUTSIDE RECORDS SUMMARY | 2024-12-05 17:15 | XMS RPT_ITS | CCD ---
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 Name Role Phone Unavailable Primary Care Provider UnavailMoshe Wagner MD Primary Care Provider BRIDENTHAL ROOF TILE LAYER/DRIVER WHEELCHAIR, SEDRICK Primary Care Physic vu BRIDENTHAL ROOF TILE LAYER/DRIVER WHEELCHAIR, SEDRICK Attending Farnaz vailable BRIDENTHAL ROOF TILE LAYER/DRIVER WHEELCHAIR, SEDRICK Primary Care Farnaz vailable Isaac DURAND, KIZZY Baker Attending Provider Bridenthal ROOF TILE LAYER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, Sedrick Primary Care Prov ider Moshe Key MD Primary Care Provider BRIDENTHAL ROOF TILE LAYER/DRIVER WHEELCHAIR, SEDRICK Attending Farnaz vailable BRIDENTHAL ROOF TILE LAYER/DRIVER WHEELCHAIR, SEDRICK Primary Care Farnaz vailable Dr. Moshe Key MD Primary Care Provider Dr. Moshe Key MD Referring Provider Enriqueta Tierney Attending Provider Dr. Cheo Mckenzie MD Attending Provider Dr. Arnold Morton MD Attending Provider Dr. Arnold Morton MD Referring Provider Hi ZELAYA-Tabby Perez Attending Provider Arnold Morton Attending Unavailable Moshe Key Referring Unavailable Moshe Kye Primary Care Unavailable Israel Lima Attending Unavailable Moshe Key Referring Unavailable Moshe Key Primary Care Unavailable Arnold Morton Attending Unavailable Moshe Key Referring Unavailable oMshe Key Primary Care Unavailable Yesi, Moshe Primary Care Unavailable Jonah, Hilmar Attending Unavailable Yesi, Moshe Primary Care Unavailable [...] Unavailable Yesi, Moshe Primary Care Unavailable Jonah, Hceo Attending Unavailable Care Physician, No Primary Primary Care Unava ilable Care Physician, No Primary Referring Unava ilable Morton, Arnold Attending Unavailable Care Physician, No Primary Primary Care Unava ilable Jonah, Hilmar Attending Unavailable Yesi, Moshe Primary Care Unavailable Morton, Arnold Attending Unavailable Yesi, Moshe Referring Unavailable Yesi, Moshe Primary Care Unavailable Yesi, Moshe Referring Unavailable Tabby Do Attending Unavailable Yesi, Moshe Primary Care Unavailable Jonah, Hilmar Attending Unavailable BRIDENTHAL, SEDRICK Attending Unavailable YESI, [...] Drug Allergy 07-01-19 24 Nausea And Vomiting [facility] Opioid Agonists (1 source) Codeine Drug Allergy 04-02-20 23 Dizziness, Vomiting Only, Nausea And Vomiting [facility] Sulfamethoxazole / Trimethoprim (1 source) Sulfamethoxazole / Trimethoprim Drug Allergy 04-02-20 23 Vomiting Only [facility] (20 sources) Codeine Drug Allergy 04-02-20 23 Dizziness, Vomiting Only, Nausea And Vomiting [facility] (20 sources) Sulfamethoxazole / Trimethoprim Drug Allergy 04-02-20 23 Vomiting Only [facility] (2 sources) Sulfamethoxazole Drug Allergy 07-01-19 24 Vomiting [facility] (20 sources) Trimethoprim Drug Allergy 07-01-19 24 Nausea And Vomiting [facility] (20 sources) Sulfamethoxazole Allergy to substance 07-01-19 24 Nausea And Vomiting [facility] (1 source) Codeine Drug Allergy 09-24-19 25 [facility] Repository (1 source) Sulfamethoxazole Drug Allergy 09-24-19 25 [facility] Repository (1 source) Trimethoprim Drug Allergy 09-24-19 25 [facility] Repository Medications Current Medications Medication Drug Class(es) [...] every week ergocalciferol (Vitamin D-2) 1.25 MG (45480 UT) capsule Indications: Vitamin D deficiency Take [...] 3 tablets daily po 0 Active nystatin 282771 unt/ml topical cream (20 sources) Polyene Antifungal [...] nystatin (Mycostatin) cream 10/22/2022 12/09/2023 Discontinued (Reorder) [place] 6-Ejf-Zwz-Fish Oil (Fish Oil) 1,200 (144-216) mg capsule (1 source) Start: 01-16-2024 [place] 4-Cof-Mjn-Fish Oil (Fish Oil) 1,200 (144-216) mg capsule [...] 20 tablet 0 09/03/2023 09/08/2023 Active Vit K-E-I8-Mhuw-B-Yopn- Quercet (Immune Essentials Daily) 750 mcg-150 mg- 31.25 mcg capsule (1 source) Start: 03-15-2024 Vit Z-M-X4-Avcy-W-Znxm-Querc et (Immune Essentials Daily) 750 mcg-150 mg- [...] mg docusate sodium 50 mg / sennosides, fci 8.6 mg oral tablet (1 source) Start: [...] Results Test Name Value Interpretation Reference Range [facility] 3611-30-2024 36 Reviewed chart. Refi ll appropriate. RX sent. [facility] 36on 11-10-2024 36 Reviewed chart. Refi ll appropriate. RX sent. [facility] 36 Prescription Request : Last medication check: 06/28/24 Last physical exam: 05/04/24 Next scheduled appointment: 05/05/25 Last date of refill on this medication: omeprazole 06/10/24 Furosemide 12/29/23 Normal [facility] Orthopedic Visit Reporton Orthopedic Visit Report [facility] [address] [place] [address] [address] [place] [address] OFFICE VISIT Date of Service: 09/23/24 MR#: [id number] Acct: [id number] Name: YODIT LANDIN Rep #: [id number] : 1955 Provider: Dr. Arnold Morton MD Age/Sex: 69/F [place] [facility] [place] Status: Signed Intake Vital Signs 03/29/24 13:35 [...] mg PO .QAM 01/16/24 09/23/24 History omega 3-fqg-vzn-fish oil 1,200 mg 1 cap PO DAILY [...] PO TID 03/15/24 09/23/24 His tory 31.25 kzh-ixog-cbkgicqxk-quer cet capsule (Immune Essentials Daily) acetaminophen 500 [...] by me, Dr. Arnold Morton MD 09/23/24 5775. Part of today???s visit was documented by [...] 5=normal Detail (more content not included)... Normal [facility] 3609-22-2024 36 error [facility] 36 S: The patient is calling the [facility] about the cholesterol B: Reviewed the [...] question Protocols used: Medication Refill and Renewal Slxg-MKOAE-JH [facility] 36on 09-02-2024 36 Prescription Request : Rosuvastatin Calcium 10 MG Oral Tablet Fenofibrate 160 MG Oral Tablet Last medication check: 06/28/24 Last physical exam: 05/04/24 Next scheduled appointment: 05/05/25 Last date of refill on this medication Rosuvastatin - 08/06/24 (Qty 90 refill 1) Fenofibrate - 08/06/24 (qty 90 refill 1) Normal [facility] Magnetic resonance imaging r eportOrdered By: Casey Prieto on 08-31-2024 Study report [facility] Imaging Services [address] [place] [address] Spine Cervical (Routine) MR#: [id number] Acct: [id number] Name: YODIT LANDIN Rep #: [id number] : 1955 F 69 From: Yuki Prieto DO PCP: Dr. Moshe Key MD Status: REG CLI Study:Spine Cervical (Routine) Date of Exam: 08/30/24 Exam# [id number] Ordering Dr: Berenice Morton MD PROCEDURE: Noncontrast [...] indents the ventral thecal sac and causes qpjv-rz-zcanrbrx central spinal canal narrowing. No focal disc herniation. Mild bilateral neural foraminal narrowing, greatest on the left. C4-5: A lobulated disc bulge indents the ventral thecal sac and causes severe central spinal canal narrowing. No focal disc herniation. No significant neural foraminal narrowing. C5-6: Lobulated disc bulge indents the ventral thecal sac and causes zabdfwsj-kh-nmpyky central spinal canal narrowing. No focal disc herniation. No significant right neural foraminal narrowing. Moderate left neural foraminal narrowing. C6-7: Asymmetric right posterior disc osteophyte complex causes vrrjqpwy-td-pmdjyz right central spinal canal narrowing. Mild left and severe right neural foraminal narrowing. C7-T1: Mild lobulated asymmetric right disc bulge causes mild right central spinal canal narrowing. No large focal disc herniation. Mild left and moderate right neural foraminal narrowing. T1-2: There is some there is a moderate disc protrusion/extrusion at this level,which indents the ventral thecal sac and causes kyggzdkp-gq-sezkgj central spinal canal narrowing. There appears to [...] a moderate/severe degree at C5-6 and C6-7. Qntuvsfx-vn-euoafp central spinal canal narrowing due to posterior disc extrusion at T1-2. Multilevel neural foraminal narrowing as described level by level above. Reading Location: [facility] CC: Dr. Arnold Morton MD; Dr. Moshe Key MD ~ Licensing Worker: Signed [facility] Spine Cervical (Routine)on 0 08-30-2024 Spine Cervical (Routine) [facility] Imaging Services [address] [place] [address] [id number] Spine Cervical (Routine) MR#: [id number] Acct: [id number] Name: YODIT LANDIN VIVIAN Rep #: [id number] : 1955 F 69 From: Casey Mosqueda i, DO PCP: Dr. Moshe Key MD Status: REG CLI Study: Spine Cervical (Routine) Date of Exam: Exam# [id number] Ordering Dr: Arnold Morton MD PROCEDURE: Noncontrast [...] indents the ventral thecal sac and causes odfd-ae-amsqcifd central spinal canal narrowing. No focal disc herniation. Mild bilateral neural foraminal narrowing, greatest on the left. C4-5: A lobulated disc bulge indents the ventral thecal sac and causes severe central spinal canal narrowing. No focal disc herniation. No significant neural foraminal narrowing. C5-6: Lobulated disc bulge indents the ventral thecal sac and causes rgcdyxij-vh-yahvyl central spinal canal narrowing. No focal disc herniation. No significant right neural foraminal narrowing. Moderate left neural foraminal narrowing. C6-7: Asymmetric right posterior disc osteophyte complex causes ddrgygrm-jo-jnqtrj right central spinal canal narrowing. Mild left and severe right neural foraminal narrowing. C7-T1: Mild lobulated asymmetric right disc bulge causes mild right central spinal canal narrowing. No large focal disc herniation. Mild left and moderate right neural foraminal narrowing. T1-2: There is some there is a moderate disc protrusion/extrusion at this level, which indents the ventral thecal sac and causes xpaowpnm-wl-nwlhde central spinal canal narrowing. There appears to [...] a moderate/severe degree at C5-6 and C6-7. Ewzfqszs-wd-hdlmfx central spinal canal narrowing due to posterior disc extrusion at T1-2. Multilevel neural foraminal narrowing as described level by level above. Reading Location: [facility] CC: Dr. Arnold Morton MD; Dr. Moshe Key MD Licensing Worker: Signed [place] [address]on 08-06-2024 36 Prescriptions sent. Follow-up as scheduled. [facility] 36 Wants both prescriptions sent into [facility]--RX pended. [facility] 36 ----- Message from ASAF Meneses CNP sent at 08/06/2024 6:04 AM EDT ----- Cholesterol levels have improved. Continue current dose of Rosuvastatin and Fenofibrate. Does she need refills? Liver enzymes are normal. [place] [address]on 08-05-2024 36 Reviewed chart. Refi ll appropriate. RX sent. [facility] Progress Noteon 08-05-2024 Progress Note Lab/venipuncture completed by [facility] [place] [address]on 08-04-2024 36 Lab draw tomorrow [facility] 36 Prescription Request : Last medication check: 06-28-24 Last physical exam: 05-04-24 Next scheduled appointment: 05-05-25 Last date of refill on this medication 07-07-24 [facility] Cerv Spine 4 or 5 View[facility] Cerv Spine 4 or 5 Views [facility] Imaging Services [address] [place] [address] Cerv Spine 4 or 5 Views MR#: [id number] Acct: [id number] Name: YODIT LANDIN Rep #: [id number] : 1955 F 69 From: Basim Vargas MD PCP: Dr. Moshe Key MD Status: DEP AMB Study: Cerv Spine 4 or 5 Views Date of Exam: 07/30/24 Exam# [id number] Ordering Dr: Enriqueta Houston PROCEDURE: CERV SPINE [...] No signs of cervical instability. Reading Location: [place] [address] CC: KIZZY Hebert; Dr. Moshe Key MD Licensing Worker: Signed Normal [facility] Orthopedic Visit Reporton Orthopedic Visit Report [facility] [address] [place] [address] OFFICE VISIT Date of Service: 07/30/24 MR#: [id number] Acct: [id number] Name: YODIT LANDIN Rep #: [id number] : 1955 Provider: Dr. Arnold Morotn MD Age/Sex: 69/F [place] [facility] [place] Status: Signed Intake Vital Signs 03/29/24 13:35 [...] mg PO .QAM 01/16/24 07/30/24 History omega 5-dmp-lrn-fish oil 1,200 mg 1 cap PO DAILY [...] PO TID 03/15/24 07/30/24 His tory 31.25 jgc-wtyy-xqtmmjaeg-quer cet capsule (Immune Essentials Daily) acetaminophen 500 [...] 35 As (more content not included)... Normal [facility] Orthopedic Visit Reporton Orthopedic Visit Report [facility] [address] [place] [address] OFFICE VISIT Date of Service: 07/28/24 MR#: [id number] Acct: [id number] Name: YODIT LANDIN Rep #: [id number] : 1955 Provider: DENISE braun Age/Sex: 69/F [place] [facility] [place] Status: Signed Intake Vital Signs 03/29/24 13:35 [...] mg PO .QAM 01/16/24 07/28/24 History omega 2-rqk-dhp-fish oil 1,200 mg 1 cap PO DAILY [...] PO TID 03/15/24 07/28/24 His tory 31.25 axk-wqcs-hphpvicom-quer cet capsule (Immune Essentials Daily) acetaminophen 500 [...] Denies easy ble (more content not included)... [facility] 07-19-2024 36 Just refilled to requested pharmacy last month for a 90 day supply plus one refill. [place] [address] Prescription Request : Last medication check: 01/21/24 Last physical exam: 05/04/24 Next scheduled appointment: 05/05/25 Last date of refill on this medication Irbesartan 05/03/24, chlorthalidone 05/03/24, Atrovent 07/05/24 [place] [address] Prescription Request : Last medication check: 01/21/24 Last physical exam: 05/04/24 Next scheduled appointment: 05/05/25 Last date of refill on this medication 06/04/24 [place] [address]on 07-07-2024 36 Atorvastatin removed from medication list. Rx sent for Rosuvastatin. Future lab orders signed. Thank you. [place] [address] Notified, agreeable, orders pended, patient is scheduled. Please send Rosuvastatin to [facility] on file. Thanks! Normal [facility] 36 I recommend switchin g from Atorvastatin to Rosuvastatin and rechecking levels again in 4 weeks. Continue current dose of Fenofibrate. Normal [facility] 36 Spoke to Yodit, she states she is taking the Fenofibrate and Atorvastatin daily. Normal [facility] Orthopedic Visit Reporton Orthopedic Visit Report [facility] [address] [place] [address] OFFICE VISIT Date of Service: 07/07/24 MR#: [id number] Acct: [id number] Name: YODIT LANDIN VIVIAN Rep #: [id number] : 1955 Provider: DENISE braun Age/Sex: 68/F [place] [facility] [place] Status: Signed Intake Vital Signs 03/29/24 13:35 [...] mg PO .QAM 01/16/24 07/07/24 History omega 1-fyz-gfp-fish oil 1,200 mg 1 cap PO DAILY [...] PO TID 03/15/24 07/07/24 His tory 31.25 apc-inhv-nyzagwvke-quer cet capsule (Immune Essentials Daily) acetaminophen 500 [...] She did get a knee sleeve from [facility] that was helping with the pain but [...] her PCP off (more content not included)... [facility] 07-06-2024 36 ----- Message from ASAF Meneses CNP sent at 07/06/2024 8:38 AM EST ----- Triglyceride levels and bad cholesterol levels have increased since previous check. Has she been taking the Fenofibrate and Atorvastatin daily as prescribed and not missing any doses? Liver enzymes are normal. Left a message to return call. [facility] 07-05-2024 36 Notified, no further questions. [facility] 36 Prescription sent to [facility] 36 Pt came in wanting a refill [...] physical exam: 05/04/24 Next scheduled appointment: 05/05/25 [facility] Progress Noteon 07-05-2024 Progress Note Venipuncture complet ed by [facility]. Normal [facility] Lumbar Spine 2 or 3 [facility] 07-02-2024 Lumbar Spine 2 or 3 Views [facility] Imaging Services [address] [place] [address] Lumbar Spine 2 or 3 Views MR#: [id number] Acct: [id number] Name: YODIT LANDIN VIVIAN Rep #: [id number] : 1955 F 68 From: Isaiah Barahona MD PCP: Dr. Moshe Key MD Status: DEP AMB Study: Lumbar Spine 2 or 3 Views Date of Exam: Exam# [id number] Ordering Dr: Enriqueta Houston PROCEDURE: LUMBAR SPINE [...] IMPRESSION: Postsurgical changes. Spondylosis. Spondylolisthesis. Reading Location: [id number] CC: KIZZY Hebert; Dr. Moshe Key MD Licensing Worker: Signed Normal [facility] Orthopedic Visit Reporton Orthopedic Visit Report [facility] [address] [place] [address] [address] [place] [address] OFFICE VISIT Date of Service: 07/02/24 MR#: [id number] Acct: [id number] Name: YODIT LANDIN VIVIAN Rep #: [id number] : 1955 Provider: KIZZY Hebert Age/Sex: 68/F [...] mg PO .QAM 01/16/24 07/02/24 History omega 1-esr-ceb-fish oil 1,200 mg 1 cap PO DAILY [...] PO TID 03/15/24 07/02/24 His tory 31.25 hnu-ivgi-apnuqvcbt-quer cet capsule (Immune Essentials Daily) acetaminophen 500 [...] into acti (more content not included)... Normal [facility] 29on 06-28-2024 29 Addended by: SEDRICK HEMPHILL on: 06/29/2024 06:05 PM Modules accepted: Level of Service [facility] 37on 06-28-[address] Morton about ortho specialist regarding the knee. May need ultrasound if getting injection in the knee. Normal [facility] Office Visiton 06-28-2024 Follow-up visit [id number] Juan Landin 1955 F Date Provider Department Center 06/28/2024 [id number] HEMPHILL [facility] Family History Problem Relation Age of Onset Ovarian cancer Mother Comments: 2000 Arthritis Father Hearing loss Father Stroke Father Prostate cancer Father Comments: 2001, recall ages Arthritis Brother Hearing loss Brother Hyperlipidemia Brother Prostate cancer Brother 71 Family Status - Relation Status Age at Mother Father Brother Level of Service:[address] [place] OFFICE/OUTPATIENT ESTABLISHED MOD MDM 30 MIN Reason for Visit and Comments: Follow-up [718601] Knee Pain [327028] [facility] Progress Noteon 06-28-2024 Progress Note Patient scheduled fo r lipid check next week. Continue fenofibrate 160 mg daily and atorvastatin 20 mg daily Normal [facility] Progress Note Discussed risks and benefits [...] and possible corticosteroid injection (may need ultrasound) [facility] Progress Note Patient was identifi ed by name and Date of . [facility] Progress Note 06/28/2024 Yodit Landin (: 1955) [...] TABLET BY MOUTH DAILY 12/29/23 Sedrick Bridenthal, ROOF TILE LAYER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 irbesartan (Avapro) 300 MG tablet TAKE 1 TABLET BY MOUTH DAILY 05/03/24 Sedrick Bridenthal, ROOF TILE LAYER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 levothyroxine (Synthroid, Levoxyl) 150 MCG tablet Take 1 tablet (150 mcg) by mouth every morning (before breakfast). 06/04/24 12/01/24 Jessica Smith APRN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 metFORMIN (Glucophage) 1000 MG tablet TAKE 1 TABLET BY MOUTH IN THE MORNING AND 1 TABLET BY MOUTH IN THE EVENING TAKE WITH MEALS 06/02/24 Sedrick Bridenthal, ROOF TILE LAYER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 NON FORMULARY Gurmur 134 mg 2 tablets daily po Historical Provider, NON FORMULARY Cardio 450 mg daily po for heart health Historical Provider, NON FORMULARY 4Life Classic 600 mg 3 tablets daily po Historical Provider, nystatin (Mycostatin) cream APPLY TOPICALLY TWICE DAILY 06/10/24 Sedrick Bridenthal, ROOF TILE LAYER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 omega-3 (Fish Oil) 1200 MG capsule Take 1,200 mg by mouth daily. Historical Provider, Vitamin E 450 MG (1000 UT) capsule Take 450 mg by mouth daily. Historical Provider, Review of Systems Constitutional: Negative for activity change, chills, fatigue and fever. Respiratory: Negative. Cardiovascular: Negative. Musculoskeletal: Positive for arthralgias. Vitals: 06/28/24 093 (more content not included)... [facility] 36on 06-16-2024 36 Added. Pt aware. Normal [place] [address] Yes we can do it at that time- please add to the appt note [place] [address] Notified, asking if you can do this injection at her visit on 06/28/24. [place] [address] Reviewed knee xray. Shows mild osteoarthritis and some calcium deposits within the joint that are likely causing the pain. Recommend considering a corticosteroid knee injection (this can be done here or she can go and see ortho specialist for this) [place] [address] Received fax, placed in [employer]. [facility] 36on 06-15-2024 36 Faxed to stacei costello [place] [address] Name of caller: Juan salgado Contact phone number: [phone] Relationship to Patient: patient Provider: 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 Practice: [facility] Chief Complaint/Reason for Call: The patient states she got the knee xrays done at [place] in [place]. Please advise Best time of day caller can be reached: Any Patient advised that office/PCP has 24-48 business hours to return their call: No [place] [address] Left a message to return call. CAC: If patient calls back please obtain where she got her knee xrays done at. [place] [address] We got a fax stating that there was no radiology report that they had for this. Will call Yodit and see where she got these done/when she got these done. [place] [address] Did we get these? [address] 06-14-2024 36 Called and spoke wit h [facility] medical records, they will be sending over x-ray results to us now. FYI [address] 06-10-2024 36 Prescription Request : Last medication check: 01/21/24 Last physical exam: 05/04/24 Next scheduled appointment: 06/28/24 Last date of refill on this medication 12/10/23 [place] [address] Prescription Request : Last medication check: 01/21/24 Last physical exam: 05/04/24 Next scheduled appointment: 06/28/24 Last date of refill on this medication Omeprazole 12/03/23, Vit D 01/16/[address] 06-08-2024 36 I have not received the xray results [place] [address] I had sent an MYRNA ov er to [facility]....have you gotten these yet? [address] 06-04-2024 36 Rx sent and future [...] excellent continue current medication. Normal [facility] Progress Noteon 06-03-2024 Progress Note Venipuncture complet ed by [facility]. Normal [facility] 36on 06-02-2024 36 Sent MYRNA to [facility] to s end xray results. Normal [place] [address] Reviewed chart. Refi ll appropriate. RX sent. Normal [facility] 36 Prescription Request : Last medication check: 01/21/24 Last physical exam: 05/04/24 Next scheduled appointment: 06/28/24 Last date of refill on this medication 03/25/24 90 day 1 refill [facility] PT D/C Summary (1)on 025 PT D/C Summary (1) [facility] Therapy [facility] [place] [address] / REHABILITATION SERVICES DISCHARGE SUMMARY MR#: [id number] Acct: [id number] Name: YODIT LANDIN Rep #: [id number] : 1955 68 From: Barbra COCHRAN Referring Dr.: Dr. Arnold Morton MD Status: REG RCR Insurance: [employer] [facility] ADV LIFE1 SELF PAY INSURANCE Discharge [...] please feel free to call me at [phone]. Thank you for the referral of this patient. Sincerely, Barbra Clifton, DIMAS Balance/Gait/Functional tests Balance/Special Test Scores Oswestry Low Back Score: 3 Dizziness Score: 0 Improvement % Improvement: 100 05/31/24 0932 CC: Dr. Arnold Morton MD; Dr. Moshe Key MD Signed [facility] 36on 05-25-2024 36 Noted. I think she i s referring to xray of knee at [place]. Will just need to make sure we receive results later this week. Normal [facility] 36 Name of caller: juan salgado Contact phone number: [phone] Relationship to Patient: patient Provider: 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 Practice: [facility] Chief Complaint/Reason for Call: pt called in to let provider that she got labs done Best time of day caller can be reached: AM Patient advised that office/PCP has 24-48 business hours to return their call: Yes [facility] 37on 05-25-2024 37 Try the Voltaren cre am on joints. Ice and elevate right knee, try compression sleeve during the day. [facility] Office Visiton 05-25-2024 Follow-up visit [id number] Juan Landin 1955 F Date Provider Department Center 05/25/2024 [id number] HEMPHILL [facility] Family History Problem Relation Age of Onset Ovarian cancer Mother Comments: 2000 Arthritis Father Hearing loss Father Stroke Father Prostate cancer Father Comments: 2001, recall ages Arthritis Brother Hearing loss Brother Hyperlipidemia Brother Prostate cancer Brother 71 Family Status - Relation Status Age at Mother Father Brother Level of Service:33245 [place] OFFICE/OUTPATIENT ESTABLISHED LOW MDM 20 MIN Reason for Visit and Comments: Knee Pain [487640] - Right-started a week ago [facility] Progress Noteon 05-25-2024 Progress Note Will obtain imaging due to history of osteoarthritis to evaluate status. Has been couple years since last imaging per patient. Recommend heather BLEDSOE to see chiropractor for knee, pending imaging results, consider PT and or referral to sports med [facility] Progress Note Patient was identifi ed by name and Date of . [facility] Progress Note 05/25/2024 Yodit Landin (: 1955) [...] CNP 05/25/2024 2:32 PM Normal [facility] XR KNEE THREE VIEWS RIGHTon 05-25-2024 [...] 05/25/2024 9:34:14 PM Ordering Provider: SEDRICK HEMPHILL [facility] 36on 05-24-2024 36 S: The patient is calling the [facility] about right knee pain B: This [...] present > 3 days Protocols used: Knee Swln-XHSYW-YH [facility] PT D/C Summary (1)on 024 PT D/C Summary (1) [facility] [address] [place] [address] [address] [place] [address] / REHABILITATION SERVICES DISCHARGE SUMMARY MR#: [id number] Acct: [id number] Name: YODIT LANDIN Rep #: [id number] : 1955 68 From: Pa Flannery PT, Cert. T, [facility] Referring Dr.: Dr. Arnold Morton MD Status: REG RCR Insurance: [facility] LIFE1 SELF PAY INSURANCE Discharge Summary [...] please feel free to call me at [phone]. Thank you for the referral of this patient. Sincerely, Pa Flannery, PT, Cert MDT, OCS Balance/Gait/Functional tests Balance/Special Test Scores Oswestry Low Back Score: 3 Dizziness Score: 24 Improvement % Improvement: 100 05/21/24 1420 CC: Dr. Arnold Morton MD; Dr. Moshe Key MD JUANYStoney Signed Normal [facility] PT D/C Summary (1)on 024 PT D/C Summary (1) [facility] Physical Therapy [address] [place] [address] / REHABILITATION SERVICES DISCHARGE SUMMARY MR#: [id number] Acct: [id number] Name: YODIT LANDIN Rep #: [id number] : 1955 68 From: Barbra COCHRAN Referring Dr.: Dr. Arnold Morton MD Status: REG RCR [facility] LIFE1 SELF PAY INSURANCE Discharge Summary [...] please feel free to call me at [phone]. Thank you for the referral of this patient. Sincerely, Barbra Stoner, MPT Balance/Gait/Functional tests Balance/Special Test Scores Oswestry Low Back Score: 3 Dizziness Score: 24 Improvement % Improvement: 100 05/14/24 1155 CC: Dr. Arnold Morton MD; Dr. Moshe Key MD Signed Normal [facility] Lumbar Spine 2 or 3 Viewson 05-13-2024 Lumbar Spine 2 or 3 Views [facility] [address] [place] [address] Lumbar Spine 2 or 3 Views MR#: [id number] Acct: [id number] Name: YODIT LANDIN Rep #: [id number] : 1955 F 68 From: Fernando Leslie DO PCP: Dr. Moshe Key MD Status: DEP AMB Study: Lumbar Spine 2 or 3 Views Date of Exam: Exam# [id number] Ordering Dr: Enriqueta [place] [id number] STUDY: X-RAY - LUMBAR SPINE REASON FOR [...] 20:50 EST Reading Location ID and State: [facility] / [place] Tel [phone], Service support , CC: KIZZY Hebert; Dr. Moshe Key MD Licensing Worker: Signed Normal [facility] Orthopedic Visit Reporton Orthopedic Visit Report [facility] [address] [place] [address] 5 [place] [address] OFFICE VISIT Date of Service: 05/13/24 MR#: [id number] Acct: [id number] Name: YODIT LANDIN Rep #: [id number] : 1955 Provider: KIZZY Hebert Age/Sex: 68/F [place] [facility] [place] Status: Signed Intake Vital Signs 02/05/24 16:00 [...] mg PO .QAM 01/16/24 05/13/24 History omega 8-nrk-lye-fish oil 1,200 mg 1 cap PO DAILY [...] cap PO TID 03/15/24 05/13/24 History 31.25 lwc-uesd-fqvueyuqc-quer cet capsule (Immune Essentials Daily) acetaminophen 500 [...] decisions made by me, KIZZY Hebert 05/13/24 8221. Part of today???s visit was documented by [...] caused signifi (more content not included)... Normal [facility] 36on 05-06-2024 36 Noted. thanks Normal [place] [address] Notified. She is goi ng to try this and stop taking the indomethacin. Normal [place] [address] For right now she co uld take acetaminophen 1000 mg every 8 hours for her pain if needed Normal [place] [address] Notified, she states she would need something else for arthritis then because the 500mg tylenol she takes in the morning and in the evening is not helping and her left hand is in pain right now. She asked if this could be sent to [facility] since Dr. Key is gone for the day. Normal [place] [address] Rx sent, order christina d, indomethacin is still on her active medication list it was never stopped however that could be part of the reason why her kidney function looks the way it is because NSAIDs like indomethacin will affect the kidney function would recommend she only take that if absolutely necessary Normal [place] [address] Patient is agreeable , scheduled in 4 [...] be added back on. Normal [facility] 36 ----- Message from Moshe Key [...] recheck in 4 weeks Normal [facility] Initial Evaluation (2) - PTo n 05-05-2024 Initial Evaluation (2) - PT [facility] [address] [place] [address]. [address] [place] [address] / REHABILITATION SERVICES INITIAL EVALUATION MR#: [id number] Acct: [id number] Name: YODIT LANDIN Rep #: [id number] : 1955 68 From: Barbra COCHRAN Referring Dr.: Dr. Arnold Morton MD Status: REG RCR Insurance: [facility] LIFE1 SELF PAY INSURANCE Patient's Visit [...] to be FAXED BACK to us at [phone] for Medicare purposes. For Medicare only, by signing this I certify the plan of care. Please let me know if there are questions or concerns regarding this plan of care. Physician Signature: (more content not included)... Normal [facility] Office Visiton 05-04-2024 Follow-up visit [id number] Juan Landin 1955 F Date Provider Department Center 05/04/2024 [id number][facility]HMOSHE [facility] Family History Problem Relation Age of Onset Ovarian cancer Mother Comments: 2000 Arthritis Father Hearing loss Father Stroke Father Prostate cancer Father Comments: 2001, cant recall ages Arthritis Brother Hearing loss Brother Hyperlipidemia Brother Prostate cancer Brother 71 Family Status - Relation Status Age at Mother Father Brother Level of Service:G0439 [place] PPPS, SUBSEQ VISIT Reason for Visit and Comments: Medicare Annual Wellness Visit Subsequent [677] Blood Work [694497] Health Maintenance [872] - Tdap vaccine- agree 2nd shingles vaccine- advised to go to pharmacy Dental exam- not done Eye exam- go to [facility] in [place] - will send for record Normal [facility] Progress Noteon 05-04-2024 Progress Note Controlled, continue metformin 1000 mg twice a day Orders: Comprehensive metabolic panel; Future Hemoglobin A1c; Future Comprehensive metabolic panel Hemoglobin A1c Normal [facility] Progress Note Patient verified by last name and date of . Normal [facility] Progress Note Controlled, continue atorvastatin 10 mg daily Orders: Lipid panel; Future Lipid panel Normal [facility] Progress Note Stable, recheck lab work today. Orders: CBC auto differential; Future Ferritin; Future Iron and TIBC; Future CBC auto differential Ferritin Iron and TIBC Normal [facility] Progress Note Initially elevated, recheck was normal, continue chlorthalidone 25 mg daily and irbesartan 300 mg daily Normal [facility] Progress Note [address] [address] Visit Type: Medicare Annual Wellness PCP: Moshe Key MD Reason for Visit: Medicare Annual Wellness Visit Subsequent, Blood Work, and Health Maintenance (Tdap vaccine- agree/2nd shingles vaccine- advised to go to pharmacy /Dental exam- not done/Eye exam[facility] [place] - will send for record ) Assessment [...] (more content not included)... Normal [facility] Progress Note Controlled, continue levothyroxine 100 mcg daily Orders: TSH; Future TSH Normal [facility] Progress Note Stable, continue omeprazole 40 mg daily [facility] 36on 05-03-2024 36 lm to pre-visit plan for appointment with Dr Key on 05/04/24 9:30. Please ask patient to arrive 15 minutes early with Photo ID, insurance card Fasting: yes Put call through to office for pvp [facility] 36 Prescription Request : Last medication check: 01/21/2024 Last physical exam: 04/23/2023 Next scheduled appointment: 05/04/2024 Last date of refill on this medication: 12/03/2023 [facility] 36on 04-19-2024 36 Faxed. Notified patient. Normal [facility] 36 Order placed for Vestibular therapy- please fax and notify patient Normal [facility] 36 Name of caller: Juan salgado Contact phone number: [phone] Relationship to Patient: patient Provider: Colin Practice: [...] for vertigo to Barbra Clifton at the [facility] PT department at fax [phone]. She stated she has PT appointments on s and . Please advise and notify the patient when this has been done. Best time of day caller can be reached: any Patient advised that office/PCP has 24-48 business hours to return their call: No Normal [facility] Re-Evaluation - PT (1)on Re-Evaluation - PT (1) [facility] [address] [place] [address]. [address] [place] [address] / REEVALUATION / MEDICARE RECERTIFICATION PHYSICAL THERAPY MR#: [id number] Acct: [id number] Name: YODIT LANDIN Rep #: [id number] : 1955 68 From: Barbra Clifton MPT Referring Dr.: Dr. Arnold Morton MD Status:REG RCR Insurance: [facility] ADV LIFE1 SELF PAY INSURANCE Re-Evaluation Intro: [...] do not hesitate to contact me at [phone] by phone or if you have questions or concerns regarding this new plan of care! Sincerely, Barbra Clifton, MPT 04/19/24 1206 CC: Dr. Arnold Morton MD; Dr. Moshe Key MD Signed For Medicare only, by signing this I certify the plan of care. Physicians Signature Date Normal [facility] Lumbar Spine 2 or 3 Viewson 04-15-2024 Lumbar Spine 2 or 3 Views [facility] [address] [place] [address] Lumbar Spine 2 or 3 Views MR#: [id number] Acct: [id number] Name: YODIT LANDIN VIVIAN Rep #: [id number] : 1955 F 68 From: Jef Menjivar MD PCP: Dr. Moshe Key MD Status: DEP AMB Study: Lumbar Spine 2 or 3 Views Date of Exam: Exam# [id number] Ordering Dr: [place] [id number] EXAM: XR LUMBOSACRAL SPINE, 2 OR 3 [...] CC: KIZZY Hebert; Dr. Moshe Key MD Licensing Worker: Signed Normal [facility] Orthopedic Visit Reporton Orthopedic Visit Report [facility] [address] [place] [address] OFFICE VISIT Date of Service: 04/15/24 MR#: [id number] Acct: [id number] Name: YODIT LANDIN Rep #: [id number] : 1955 Provider: Dr. Arnold Morton MD Age/Sex: 68/F [place] [facility] [place] Status: Signed Intake Vital Signs 02/05/24 16:00 [...] mg PO .QAM 01/16/24 04/15/24 History omega 0-omk-bol-fish oil 1,200 mg 1 cap PO DAILY [...] cap PO TID 03/15/24 04/15/24 History 31.25 ygf-cbzz-jpqcvytnv-quer cet capsule (Immune Essentials Daily) acetaminophen 500 [...] bending, lifting, (more content not included)... Normal [facility] Basic Metabolic Profile (BMP )on 03-30-2024 BUN/CRE 15.1 RATIO Normal - [facility] Comment on above: Performed By: #### L 100.0500, L500.2500 #### [facility] [address] [place], [address] CA,Total 8.5 mg/dL Normal 8.5-10.1 [facility] Comment on above: Performed By: #### L 100.0500, L500.2500 #### [facility] [address] [place], [address] Chloride [Moles/Vol] 102 mmol/L Normal 98-107 [facility] Comment on above: Performed By: #### L 100.0500, L500.2500 #### [facility] [address] [place], [address] CO2 [Moles/Vol] 28.0 mmol/L Normal 21.0-32.0 [facility] Comment on above: Performed By: #### L 100.0500, L500.2500 #### [facility] [address] [place], [address] Creatinine [Mass/Vol] 1.19 mg/dL High 0.55-1.02 [facility] Comment on above: Result Comment: The validity of the calculated GFR GFRAA in patients over 70 years has not been determined. Clinical correlation is essential. Performed By: #### L 100.0500, L500.2500 #### [facility] [address] [place], [address] ECRCL 49.60 ml/min Normal [facility] Comment on above: Performed By: #### L 100.0500, L500.2500 #### [facility] [address] [place], [address] EST GFR - AA 58 mL/min Low >60 [facility] Comment on above: Result Comment: Afri can Jamaican GFR Calc Performed By: #### L 100.0500, L500.2500 #### [facility] [address] [place], [address] GAP 7 Normal 5-15 [facility] Comment on above: Performed By: #### L 100.0500, L500.2500 #### [facility] [address] [place], [address] GFR/1.73 sq M.predicted among non-blacks MDRD (S/P/Bld) [Vol rate/Area] 48 mL/min/{1.73_m2} Low >60 [facility] Comment on above: Result Comment: Non- GFR Calc Performed By: #### L 100.0500, L500.2500 #### [facility] [address] [place], [address] Glucose [Mass/Vol] 126 mg/dL High 74-106 [facility] Comment on above: Result Comment: Fast ing Glucose result greater than or equal to 126 mg/dL suggests DIABETES MELLITUS per A.D.A. criteria. Performed By: #### L 100.0500, L500.2500 #### [facility] [address] [place], [address] Potassium [Moles/Vol] 4.5 mmol/L Normal 3.5-5.1 [facility] Comment on above: Performed By: #### L 100.0500, L500.2500 #### [facility] [address] [place], [address] Sodium [Moles/Vol] 137 mmol/L Normal 136-145 [facility] Comment on above: Performed By: #### L 100.0500, L500.2500 #### [facility] [address] [place], [address] Urea nitrogen [Mass/Vol] 18 mg/dL Normal 7-18 [facility] Comment on above: Performed By: #### L 100.0500, L500.2500 #### [facility] [address] [place], [address] Bedside Glucoseon 03-30-2024 FINGERSTICK GLU 167 mg/dL High 74-106 [facility] Comment on above: Result Comment: RANDI DUNLAP OF PATIENT CARE PER NURSING PROTOCOL Performed By: #### L 501.080 ####[facility] [address] [place], [address] FINGERSTICK GLU 116 mg/dL High 74-106 [facility] Comment on above: Result Comment: RANDI DUNLAP OF PATIENT CARE PER NURSING PROTOCOL Performed By: #### L 501.080 ####[facility] [address] [place], [address] CBC-Complete Blood Cnt No Di ffon 03-30-2024 Erythrocyte distribution width (RBC) [Ratio] 16.0 % High 11.6-14.6 [facility] Comment on above: Performed By: #### L 100.0500, L500.2500 #### [facility] [address] [place], [address] Hematocrit (Bld) [Volume fraction] 27.8 % Low 37-47 [facility] Comment on above: Performed By: #### L 100.0500, L500.2500 #### [facility] [address] [place], [address] Hemoglobin (Bld) [Mass/Vol] 8.6 g/dL Low 12.0-15.0 [facility] Comment on above: Performed By: #### L 100.0500, L500.2500 #### [facility] [address] [place], [address] MCH (RBC) [Entitic mass] 28.5 pg Normal 27.0-32.0 [facility] Comment on above: Performed By: #### L 100.0500, L500.2500 #### [facility] [address] [place], [address] MCHC (RBC) [Mass/Vol] 30.9 g/dL Low 32-36 [facility] Comment on above: Performed By: #### L 100.0500, L500.2500 #### [facility] [address] [place], [address] MCV (RBC) [Entitic vol] 92.1 fL Normal 81-99 [facility] Comment on above: Performed By: #### L 100.0500, L500.2500 #### [facility] [address] [place], [address] Platelet mean volume (Bld) [Entitic vol] 9.5 fL Normal 6.2-12.0 [facility] Comment on above: Performed By: #### L 100.0500, L500.2500 #### [facility] [address] [place], [address] Platelets (Bld) [#/Vol] 138 10*3/uL Low 150-450 [facility] Comment on above: Performed By: #### L 100.0500, L500.2500 #### [facility] [address] [place], [address] RBC (Bld) [#/Vol] 3.02 10*6/uL Low 4.2-5.4 [facility] Comment on above: Performed By: #### L 100.0500, L500.2500 #### [facility] [address] [place], [address] RDW SD 52.8 fl High 35.1-43.9 [facility] Comment on above: Performed By: #### L 100.0500, L500.2500 #### [facility] [address] [place], [address] WBC (Bld) [#/Vol] 6.9 10*3/uL Normal 4.4-11.0 [facility] Comment on above: Performed By: #### L 100.0500, L500.2500 #### [facility] [address] [place], [address] Hemoglobinon 03-30-2024 Hemoglobin (Bld) [Mass/Vol] 9.6 g/dL Low 12.0-15.0 [facility] Comment on above: Performed By: #### L 100.1300 ####[facility] [address] [place], [place], [address] Lumbar Spine 2 or 3 Viewson 03-30-2024 Lumbar Spine 2 or 3 Views [facility] Imaging Services [address] [place] [address] Lumbar Spine 2 or 3 Views MR#: [id number] Acct: [id number] Name: YODIT LANDIN Rep #: [id number] : 1955 F 68 From: Justin Monzon MD PCP: Dr. Moshe Key MD Status: DIS SUZETTE Study: Lumbar Spine 2 or 3 Views Date of Exam: Exam# [id number] Ordering Dr: [place] [address]:[id number] STUDY: X-RAY - LUMBAR SPINE REASON FOR [...] CC: KIZZY Hebert; Dr. Moshe Key MD Licensing Worker: Signed Normal [facility] Bedside Glucoseon 03-29-2024 FINGERSTICK GLU 179 mg/dL High 74-106 [facility] Comment on above: Result Comment: RANDI GEMENT OF PATIENT CARE PER NURSING PROTOCOL Performed By: #### L 501.080 #### [facility] [address] [place], [address] FINGERSTICK GLU 158 mg/dL High 74-106 [facility] Comment on above: Result Comment: RANDI GEMENT OF PATIENT CARE PER NURSING PROTOCOL Performed By: #### L 501.080 #### [facility] [address] [place], [address] Lumbar Spine 2 or 3 Viewson 03-29-2024 Lumbar Spine 2 or 3 Views [facility] Imaging Services [address] [place] [address] Lumbar Spine 2 or 3 Views MR#: [id number] Acct: [id number] Name: YODIT LANDIN Rep #: [id number] : 1955 F 68 From: Aleksandar huang MD PCP: Dr. Moshe Key MD Status: ADM SUZETTE Study: Lumbar Spine 2 or 3 Views Date of Exam: Exam# [id number] Ordering Dr: [place] [id number] STUDY: X-RAY - LUMBAR SPINE REASON FOR [...] Arnold Morton MD; Dr. Moshe Key MD Licensing Worker: Signed [facility] MR/POSTOP.ANEon 03-29-2024 MR/POSTOP.[facility] Medical Records Department [address] [place] [address] Anesthesia Postop Eval I 03/29/24 1150 MR#: [id number] Acct: [id number] Name: YODIT LANDIN Rep #: [id number] : 1955 68 From: Chelsey Orantes CRNA PCP: Dr. Moshe Key MD Status:[place] [facility] [place] [place] Race: C Location: [place] [address] Anesthesia: Postop Eval I Current Vital Signs [...] Orantes CRNA Cosigner Signature: Date CC: Signed [facility] MR/ZICTVXCY0hv 03-29-2024 MR/POSTOPAN2 [facility] Medical Records Department [address] [place] [address] Anesthesia Postop Eval II 03/29/24 1514 MR#: [id number] Acct: [id number] Name: YODIT LANDIN Rep #: [id number] : 1955 68 From: Jeovanny Oliver MD PCP: Dr. Moshe Key MD Status:ADM SUZETTE Y Race: C [facility] Postop Eval I Sum Postop Eval Completion status Anesthesia document: Postop Eval 1 completed: Yes Anesthesia Postop Eval I Summary Anesthesia Postop Eval I Summary: Anesthesia Postop Eval I: Assessment Summary Airway patent Yes 03/29/24 11:51 WORKFORCE STAFFING ADVISOR.SKOBY Spontaneous unlabored Yes 03/29/24 11:51 WORKFORCE STAFFING ADVISOR.SKOBY respirations Mental status Asleep 03/29/24 11:51 WORKFORCE STAFFING ADVISOR.SKOBY nausea No 03/29/24 11:51 WORKFORCE STAFFING ADVISOR.SKOBY Vomiting No 03/29/24 11:51 WORKFORCE STAFFING ADVISOR.SKOBY Anesthesia Postop Eval I: Fluid Summary Crystalloid volume administer 1,400 03/29/24 11:51 WORKFORCE STAFFING ADVISOR.SKOBY (ml) Colloids volume administered ( ml) Blood Product volume administered (ml) Total IV fluid infused 1,400 03/29/24 11:51 WORKFORCE STAFFING ADVISOR.SKOBY Anesthesia Postop Eval I: Summary Notes Anesthesia Complication No 03/29/24 11:51 WORKFORCE STAFFING ADVISOR.SKOBY Anesthesia Complication Comment: Post-operative progress note Anesthesia: Postop Eval II Evaluation Mental status: Awake and Calm Pain Level: 2 nausea: No Vomiting: No Complications Anesthesia Complication: No 03/29/24 1515 Date Jeovanny Oliver MD Cosigner Signature: Date CC: Signed Normal [facility] Operative Reporton 4 Operative Report [facility] Medical Records Department [address] [place] [address] Operative Report 03/29/24 1124 MR#: [id number] Acct: [id number] Name: YODIT LANDIN Rep #: [id number] : 1955 68 From: Arnold Morton MD PCP: Dr. Moshe Key MD Status:[facility] Location: [place] [address] Operative Report (Standard) Operative Information Surgery/Procedure Performed: [...] L5-S1 posterior spinal fusion and interbody fusion 04751 ??? L5-S1 posterior pedicle screw instrumentation 80638 . L5-S1 insertion of cage 08360 . Local autograft 94063 . Cancellous allograft with DBX 27673 Attending Surgeon: Dr. Arnold Morton Estimated blood [...] this resected bone was used as autograft. [place] was then utilized to remove the rest [...] Hemostasis was a (more content not included)... [place] [address]on 03-25-2024 36 Reviewed chart. Refi ll appropriate. RX sent. [facility] 36 Medication name: metFORMIN (Glucophage) 1000 MG [...] prior to picking up the medication: N/A [place] [address]on 03-22-[address] Ortiz office at [phone] [facility] 36 yes [facility] 36 Ok to fax? [place] [address]on 03-19-2024 36 Name of caller: Juan salgado Contact phone number: [phone] Relationship to Patient: patient Provider: Dr. Key Practice: [facility] Chief Complaint/Reason for Call: The patient states her Surgeon Dr. Arnold Morton needs a copy faxed to him of her last blood tests taken. His office # is [phone] the patient didn't have the fax #. Please advise. Best time of day caller can be reached: Any Patient advised that office/PCP has 24-48 business hours to return their call: No [facility] Orthopedic Visit Reporton Orthopedic Visit Report [facility] 85 [place] [address] 5 [place] [address] OFFICE VISIT Date of Service: 03/19/24 MR#: [id number] Acct: [id number] Name: YODIT LANDIN VIVIAN Rep #: [id number] : 1955 Provider: Dr. Arnold Morton MD [...] mg PO .QAM 01/16/24 03/19/24 History omega 0-jgi-ekc-fish oil 1,200 mg 1 cap PO DAILY [...] cap PO TID 03/15/24 03/19/24 History 31.25 gyy-jmps-evrbgmggy-quer cet capsule (Immune Essentials Daily) Have you [...] states sh (more content not included)... Normal [facility] Hemoglobin A1con 03-18-2024 HbA1c (Bld) [Mass fraction] 6.6 % High 3.8-5.6 [facility] Comment on above: Order Comment: ADD O N Result Comment: Norm al < 5.7 % Prediabetic 5.7 - 6.4 % Diabetic >or= 6.5 % Please note range changes. Performed By: #### L 501.9985 #### [facility] [address] [facility] [place], [place], [id number] Hepatitis A AB, Totalon 02-24 HEPATITIS A,TOT Negative Normal Negative [facility] Comment on above: Result Comment: Comm ent: The HAV total antibody assay detects both IgG and IgM but does not differentiate between them. A negative result suggests susceptibility to infection. A positive result could be due to vaccination, previously resolved infection or active infection. Testing for HAV IgM should be performed if active HAV infection is suspected. [facility] offers profiles that will automatically reflex positive HAV total antibody results to IgM (e.g., panel #[id number] HAV Antibody w/ Rfx). Performed at: [address] [id number] Portable Grinding Machine Operator: Aris Jett PhD, Phone: [phone] Performed By: #### L 100.0100, M100.651, L3890.6300, L3890.6200, L500.2500, L3100.0300, BTSPAT, L3890.6005 ####[facility] [address] [place] [place], [address] MRSA/SAID NASAL SCREENon MRSA+SAID SCRN Reason for Exam: PRE -OP MRSA MRSA Negative S. AUREUS S. aureus Negative Normal [facility] Comment on above: Performed By: #### L 100.0100, M100.651, L3890.6300, L3890.6200, L500.2500, L3100.0300, BTSPAT, L3890.6005 ####[facility] [address] [place], [address] Basic Metabolic Profile (BMP )on 03-17-2024 BUN/CRE 14.7 RATIO Normal - [facility] Comment on above: Performed By: #### L 100.0100, M100.651, L3890.6300, L3890.6200, L500.2500, L3100.0300, BTSPAT, L3890.6005 ####[facility] [address] [place], [place], [phone]([phone] CA,Total 9.3 mg/dL Normal 8.5-10.1 [facility] Comment on above: Performed By: #### L 100.0100, M100.651, L3890.6300, L3890.6200, L500.2500, L3100.0300, BTSPAT, L3890.6005 ####[facility] [address] [place], [place], [phone]([phone] Chloride [Moles/Vol] 104 mmol/L Normal 98-107 [facility] Comment on above: Performed By: #### L 100.0100, M100.651, L3890.6300, L3890.6200, L500.2500, L3100.0300, BTSPAT, L3890.6005 ####[facility] [address] [place], [address] CO2 [Moles/Vol] 25.0 mmol/L Normal 21.0-32.0 [facility] Comment on above: Performed By: #### L 100.0100, M100.651, L3890.6300, L3890.6200, L500.2500, L3100.0300, BTSPAT, L3890.6005 ####[facility] [address] [place], [address] Creatinine [Mass/Vol] 1.29 mg/dL High 0.55-1.02 [facility] Comment on above: Result Comment: The validity of the calculated GFR GFRAA in patients over 70 years has not been determined. Clinical correlation is essential. Performed By: #### L 100.0100, M100.651, L3890.6300, L3890.6200, L500.2500, L3100.0300, BTSPAT, L3890.6005 ####[facility] [address] [place], [address] EST GFR - AA 53 mL/min Low >60 [facility] Comment on above: Result Comment: Afri can Jamaican GFR Calc Performed By: #### L 100.0100, M100.651, L3890.6300, L3890.6200, L500.2500, L3100.0300, BTSPAT, L3890.6005 ####[facility] [address] [place], [address] GAP 8 Normal 5-15 [facility] Comment on above: Performed By: #### L 100.0100, M100.651, L3890.6300, L3890.6200, L500.2500, L3100.0300, BTSPAT, L3890.6005 ####[facility] [address] [place], [address] GFR/1.73 sq M.predicted among non-blacks MDRD (S/P/Bld) [Vol rate/Area] 44 mL/min/{1.73_m2} Low >60 [facility] Comment on above: Result Comment: Non- GFR Calc Performed By: #### L 100.0100, M100.651, L3890.6300, L3890.6200, L500.2500, L3100.0300, BTSPAT, L3890.6005 ####[facility] [address] [place], [address] Glucose [Mass/Vol] 179 mg/dL High 74-106 [facility] Comment on above: Result Comment: Fast ing Glucose result greater than or equal to 126 mg/dL suggests DIABETES MELLITUS per A.D.A. criteria. Performed By: #### L 100.0100, M100.651, L3890.6300, L3890.6200, L500.2500, L3100.0300, BTSPAT, L3890.6005 ####[facility] [address] [place], [address] Potassium [Moles/Vol] 4.2 mmol/L Normal 3.5-5.1 [facility] Comment on above: Performed By: #### L 100.0100, M100.651, L3890.6300, L3890.6200, L500.2500, L3100.0300, BTSPAT, L3890.6005 ####[facility] [address] [place], [address] Sodium [Moles/Vol] 137 mmol/L Normal 136-145 [facility] Comment on above: Performed By: #### L 100.0100, M100.651, L3890.6300, L3890.6200, L500.2500, L3100.0300, BTSPAT, L3890.6005 ####[facility] [address] [place], [address] Urea nitrogen [Mass/Vol] 19 mg/dL High 7-18 [facility] Comment on above: Performed By: #### L 100.0100, M100.651, L3890.6300, L3890.6200, L500.2500, L3100.0300, BTSPAT, L3890.6005 ####[facility] [address] [place], [address] CBC W/Diff, Automatedon 10-2 Absolute Lymph 1.45 X10 3/uL Normal 0.83-4.51 [facility] Comment on above: Performed By: #### L 100.0100, M100.651, L3890.6300, L3890.6200, L500.2500, L3100.0300, BTSPAT, L3890.6005 ####[facility] [address] [place], [address] Absolute Neut 2.5 X10 3/uL Normal 2.0-7.7 [facility] Comment on above: Performed By: #### L 100.0100, M100.651, L3890.6300, L3890.6200, L500.2500, L3100.0300, BTSPAT, L3890.6005 ####[facility] [address] [place], [address] Basophils/100 WBC (Bld) 1.1 % High 0-1 [facility] Comment on above: Performed By: #### L 100.0100, M100.651, L3890.6300, L3890.6200, L500.2500, L3100.0300, BTSPAT, L3890.6005 ####[facility] [address] [place], [address] Eosinophils/100 WBC (Bld) 6.3 % High 0-5 [facility] Comment on above: Performed By: #### L 100.0100, M100.651, L3890.6300, L3890.6200, L500.2500, L3100.0300, BTSPAT, L3890.6005 ####[facility] [address] [place], [address] Erythrocyte distribution width (RBC) [Ratio] 15.6 % High 11.6-14.6 [facility] Comment on above: Performed By: #### L 100.0100, M100.651, L3890.6300, L3890.6200, L500.2500, L3100.0300, BTSPAT, L3890.6005 ####[facility] [address] [place], [address] Hematocrit (Bld) [Volume fraction] 33.0 % Low 37-47 [facility] Comment on above: Performed By: #### L 100.0100, M100.651, L3890.6300, L3890.6200, L500.2500, L3100.0300, BTSPAT, L3890.6005 ####[facility] [address] [place], [address] Hemoglobin (Bld) [Mass/Vol] 10.3 g/dL Low 12.0-15.0 [facility] Comment on above: Performed By: #### L 100.0100, M100.651, L3890.6300, L3890.6200, L500.2500, L3100.0300, BTSPAT, L3890.6005 ####[facility] [address] [place], [address] IG% 0.600 Normal 0.0-0.9 [facility] Comment on above: Result Comment: IG% - Immature Granulocytes (promyelocytes, myelocytes and metamyelocytes) > 1% indicates that a LEFT SHIFT is Present. Performed By: #### L 100.0100, M100.651, L3890.6300, L3890.6200, L500.2500, L3100.0300, BTSPAT, L3890.6005 ####[facility] [address] [place], [address] Lymphocytes/100 WBC (Bld) 30.7 % Normal 19-41 [facility] Comment on above: Performed By: #### L 100.0100, M100.651, L3890.6300, L3890.6200, L500.2500, L3100.0300, BTSPAT, L3890.6005 ####[facility] [address] [place], [address] MCH (RBC) [Entitic mass] 28.5 pg Normal 27.0-32.0 [facility] Comment on above: Performed By: #### L 100.0100, M100.651, L3890.6300, L3890.6200, L500.2500, L3100.0300, BTSPAT, L3890.6005 ####[facility] [address] [place], [address] MCHC (RBC) [Mass/Vol] 31.2 g/dL Low 32-36 [facility] Comment on above: Performed By: #### L 100.0100, M100.651, L3890.6300, L3890.6200, L500.2500, L3100.0300, BTSPAT, L3890.6005 ####[facility] [address] [place], [address] MCV (RBC) [Entitic vol] 91.2 fL Normal 81-99 [facility] Comment on above: Performed By: #### L 100.0100, M100.651, L3890.6300, L3890.6200, L500.2500, L3100.0300, BTSPAT, L3890.6005 ####[facility] [address] [place], [address] Monocytes/100 WBC (Bld) 8.0 % Normal 0-10 [facility] Comment on above: Performed By: #### L 100.0100, M100.651, L3890.6300, L3890.6200, L500.2500, L3100.0300, BTSPAT, L3890.6005 ####[facility] [address] [place], [address] Neutrophils/100 WBC (Bld) 53.3 % Normal 47-70 [facility] Comment on above: Performed By: #### L 100.0100, M100.651, L3890.6300, L3890.6200, L500.2500, L3100.0300, BTSPAT, L3890.6005 ####[facility] [address] [place], [address] Nucleated RBC (Bld) [#/Vol] 0 10*3/uL Normal 0-5 [facility] Comment on above: Performed By: #### L 100.0100, M100.651, L3890.6300, L3890.6200, L500.2500, L3100.0300, BTSPAT, L3890.6005 ####[facility] [address] [place], [address] Platelet mean volume (Bld) [Entitic vol] 9.8 fL Normal 6.2-12.0 [facility] Comment on above: Performed By: #### L 100.0100, M100.651, L3890.6300, L3890.6200, L500.2500, L3100.0300, BTSPAT, L3890.6005 ####[facility] [address] [place], [address] Platelets (Bld) [#/Vol] 159 10*3/uL Normal 150-450 [facility] Comment on above: Performed By: #### L 100.0100, M100.651, L3890.6300, L3890.6200, L500.2500, L3100.0300, BTSPAT, L3890.6005 ####[facility] [address] [place], [address] RBC (Bld) [#/Vol] 3.62 10*6/uL Low 4.2-5.4 [facility] Comment on above: Performed By: #### L 100.0100, M100.651, L3890.6300, L3890.6200, L500.2500, L3100.0300, BTSPAT, L3890.6005 ####[facility] [address] [place], [place], [phone] RDW SD 51.6 fl High 35.1-43.9 [facility] Comment on above: Performed By: #### L 100.0100, M100.651, L3890.6300, L3890.6200, L500.2500, L3100.0300, BTSPAT, L3890.6005 ####[facility] [address] [place], [address] WBC (Bld) [#/Vol] 4.7 10*3/uL Normal 4.4-11.0 [facility] Comment on above: Performed By: #### L 100.0100, M100.651, L3890.6300, L3890.6200, L500.2500, L3100.0300, BTSPAT, L3890.6005 ####[facility] [address] [place], [address] HIV - WCHon 03-17-2024 HIV Non-Reactive Normal Nonreactive [facility] Comment on above: Order Comment: Reaso n for Exam: PAT Performed By: #### L 100.0100, M100.651, L3890.6300, L3890.6200, L500.2500, L3100.0300, BTSPAT, L3890.6005 ####[facility] [address] [place], [place], [phone] Hepatitis B Surface Antibody on 03-17-2024 HEP B Surf Ab Reactive Normal [facility] Comment on above: Order Comment: Reaso n for Exam: PAT Result Comment: Non Reactive: Inconsistent with immunity less than <10 mIU/mL Reactive: Consistent with immunity greater than or equal to 10 mIU/mL Performed By: #### L 100.0100, M100.651, L3890.6300, L3890.6200, L500.2500, L3100.0300, BTSPAT, L3890.6005 ####[facility] [address] [place], [address] Hepatitis C Antibodyon 03-17 Hepatitis C AB Non-Reactive Normal Nonreactive [facility] Comment on above: Order Comment: Reaso n for Exam: PAT Result Comment: Non Reactive: < 0.8 Equivocal: >/= 0.8 to < 1.0 Reactive: >/= 1.0 The CDC requires that a reactive/equivocal HCV antibody result be sent out for confirmation. HCV Quant by PCR testing. Performed By: #### L 100.0100, M100.651, L3890.6300, L3890.6200, L500.2500, L3100.0300, BTSPAT, L3890.6005 ####[facility] [address] [place], [address] Magnesiumon 03-17-2024 Magnesium [Mass/Vol] 1.1 mg/dL Low 1.6-2.6 [facility] Comment on above: Performed By: #### L 501.5200, L501.9520 #### [facility] [address] [place], [address] Thyroid Stim Hormone (TSH)on 03-17-2024 TSH 0.423 uIU/mL Normal 0.358-3.740 [facility] Comment on above: Performed By: #### L 501.5200, L501.9520 #### [facility] [address] [place], [place], [address] Type AND Screen - PAT ONLYon 03-17-2024 ABO and Rh group Nom (Bld) Blood group O Rh(D) positive Normal [facility] Comment on above: Order Comment: Surge ry Date: 03/29/24Reason for Laboratory Test [id number] invasive Transforaminal Lumbar Interbody Fusi Performed By: #### L 100.0100, M100.651, L3890.6300, L3890.6200, L500.2500, L3100.0300, BTSPAT, L3890.6005 ####[facility] [address] [place], [address] 36on 03-15-2024 36 Notified yodit, no further questions. [place] [address] Rx sent to requested pharmacy on 02/13/24 for a 90 day supply plus one refill. [place] [address] Medication name: levothyroxine (Synthroid, Levoxyl) 100 MCG [...] to picking up the medication: Yes ' [place] [address] Sent again via rightfax. [place] [address] Name of caller: Aura patel ([facility]) Contact phone number: [phone] Relationship to Patient: na Provider: Dr. Key Practice: [facility] Chief Complaint/Reason for Call: States she received the other information but the results to Pt echocardiogram didn't come through. Requesting to have the results to echocardiogram faxed to [phone]. Please advise Best time of day caller can be reached: Any AM Patient advised that office/PCP has 24-48 business hours to return their call: Yes [place] [address] Yes pt bought it OTC and is taking 2000 units per day Normal [facility] 36 Per Maria Luisa's note she was to take this dose x12 weeks then transition to 2,000 units daily OTC. Normal [facility] 36 Prescription Request : Last medication check: 01/21/24 Last physical exam: 04/23/23 Next scheduled appointment: 05/04/24 Last date of refill on this medication 01/16/24 12 capsules no refill Normal [facility] Office Visiton 03-09-2024 Follow-up visit [id number] Juan Landin 1955 F Date Provider Department Center 03/09/2024 [id number] HEMPHILL [facility] Family History Problem Relation Age of Onset Ovarian cancer Mother Comments: 2000 Arthritis Father Hearing loss Father Stroke Father Prostate cancer Father Comments: 2001, recall ages Arthritis Brother Hearing loss Brother Hyperlipidemia Brother Prostate cancer Brother 71 Family Status - Relation Status Age at Mother Father Brother Level of Service:16522 [place] OFFICE/OUTPATIENT ESTABLISHED MOD MDM 30 MIN Reason for Visit and Comments: Pre-op Exam [201005] - Surgical clearance Normal [facility] PATINSon 03-09-2024 PATINS Vit d 2,000 international units daily over the counter. Normal [facility] Progress Noteon 03-09-2024 Progress Note Medical optimized fo r surgery. Normal [facility] Progress Note Controlled. Glucose readings consistently under 150. Continue metformin 1000 mg twice daily Normal [facility] Progress Note Mild elevation in bl ood pressure today. 146/76. Continue current medications Avapro 300 mg daily, chlorthalidone 25 mg daily, follow-up as directed. Normal [facility] Progress Note [facility] [place] [facility] [place] [address] [facility] [address] Dept: [phone] Dept Loc: [phone] Subjective Chief Complaint: Ms. Landin is a 68 y.o. female who presentsfor pre-operative evaluation. Planned surgery: MIS-TLIF at L5-S1 Surgeon: Dr. Rose- [facility] Date of Surgery: 03/29/2024 Plans to be overnight. Then home the next day. Will have PT at the rehab center in [place]. Has another appt next week- on the [...] complication, without long-term current use of insulin ([facility]) ([facility]) Assessment & Plan: Controlled. Glucose readings [...] primary care provider as scheduled. 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, 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 [facility] Progress Note Patient was identifi ed by name and Date of . Health Maintenance Due Topic Hepatitis A Vaccines-declined RSV Immunization aged 60 or older-declined Diabetes: Dental Exam-needs completed COVID-19 Vaccine-declined Diabetes: Retinopathy Screening-02/20/2024 [facility] Diabetes: Foot Exam-pended [facility] 36on 03-05-2024 36 Scheduled with Maria Luisa 03/09/24, placed clearance form on her desk. [facility] 36 Received the forms t hat she needs scheduled for preop clearance [facility] 36on 03-04-2024 36 Name of caller: Juan stoney Contact phone number: [phone] Relationship to Patient: patient Provider: Dr Key [...] business hours to return their call: Yes [facility] 36on 02-26-2024 36 Sent [facility] message as requested by patient. [facility] 36 Should be taking vit d 50,000 international units weekly (prescription), then calcium 1200 mg over the counter daily Normal [facility] 36 Patient came in to l et us know she was told by Dr. Marroquin that she has to have an L5-S1 Spinal Fusion. It is not yet scheduled but they will send us something for clearance. He asked if she is taking any caltrate/vit D. She states she is not but asked if she should be? Normal [facility] Orthopedic Visit Reporton Orthopedic Visit Report [facility] [address] [place] [address] [address] [place] [address] OFFICE VISIT Date of Service: 02/26/24 MR#: [id number] Acct: [id number] Name: YODIT LANDIN Rep #: [id number] : 1955 Provider: Dr. Arnold Morton MD Age/Sex: 68/F [place] [facility] [place]: Signed Intake Vital Signs 02/05/24 16:00 [...] topical topical 01/16/24 02/26/24 History cream omega 8-gji-rtf-fish oil 1,200 mg cap PO 01/16/24 02/26/24 [...] and had a PT on site at [facility] who would adjust her hips when [...] Spondylolisthesis, l (more content not included)... Normal [facility] DBT Breast - bilateral scree gómez 02-24-2024 [...] Electronically Signed Date/Time: 02/24/2024 8:42 AM EDT [facility] Patient Name: YODIT LANDIN : 1955 Exam Date/Time: 02/23/2024 10:59 Procedure: BI MAMMOGRAM SCREENING TOMOSYNTHESIS BILATERAL Ordering Provider: HEMPHILL REBECCA Reason For Exam: This exam was performed at: [facility] [address] [place] [address] RISK ALERT: The Cancer Risk Assessment scores [...] images: BB's = Nipples; skin lesions Open iqugmiut = Palpable Line = Scar COMPARISON: 01/01/2022, 02/12/2023 TISSUE DENSITY: BIRADS B - There are scattered areas of fibroglandular density. FINDINGS: No suspicious masses, architectural distortions or suspiciously clustered microcalcifications are identified. There is no evidence of skin thickening or nipple retraction. There are no significant changes when compared with prior studies. [facility] Sanjuanita Riley MD - 02/24/2024 Patient Name: YODIT LANDIN : 1955 Exam Date/Time: 02/23/2024 10:59 Procedure: BI MAMMOGRAM SCREENING TOMOSYNTHESIS BILATERAL Ordering Provider: HEMPHILL REBECCA Reason For Exam: This exam was performed at: [facility] [address] [place] [address] RISK ALERT: The Cancer Risk Assessment scores [...] images: BB's = Nipples; skin lesions Open iqugmiut = Palpable Line = Scar COMPARISON: 01/01/2022, [...] Electronically Signed Date/Time: 02/24/2024 8:42 AM EDT [facility] DBT Breast - bilateral scree octaviagOrdered By: Sanjuanita Riley on 02-24-2024 [facility] Work Phone: DBT Breast - bilateral scree octaviaclarissa 02-23-2024 Radiology Study observation (narrative) [facility] Spine Lumbar (Routine)on Spine Lumbar (Routine) [facility] [address] [place], [place] [address] Spine Lumbar (Routine) MR#: [id number] Acct: [id number] Name: JANETTYODIT VIVIAN Rep #: [id number] : 1955 F 68 From: Jaime Jeffriesdorina jimenez DO PCP: Dr. Moshe Key MD Status: REG CLI Study: Spine Lumbar (Routine) Date of Exam: 02/16/24 Exam# [id number] Ordering [place]: [place] [id number] EXAM: MR LUMBAR SPINE WITHOUT INTRAVENOUS CONTRAST [...] facet arthrosis. Mild spinal canal stenosis and csrl-ry-fxhqdkpg bilateral neural foraminal narrowing. L5-S1: Severe bilateral [...] Arnold Morton MD; Dr. Moshe Key MD Licensing Worker: Signed [facility] 36on 02-13-2024 36 Notified, needs 90 d ay supply to mail order pharmacy. Normal [facility] 36 ----- Message from ASAF Ramos CNP sent at 02/13/2024 11:09 AM EDT ----- Tsh - normal, continue current dosing of levothyroxine 100 mcg daily Normal [facility] CT LUNG SCREENING LOW DOSEon 02-12-2024 [...] PM EDT Lung 3 LDCT 1 Yr [id number] Patient Name: YODIT LANDIN : 1955 Exam Date/Dani (more content not included)... Normal [facility] Progress Noteon 09-19-2024 Progress Note Venipuncture complet ed by [facility]. Normal [facility] US Heart TransthoracicOrdere d By: Uriel Macias on 02-12-2024 Ao Root Index 1.24 cm/m2 [facility] Work Phone: Aortic Root 2.4 cm [facility] Work Phone: Aortic Sinus Valsalva 2.4 cm [facility] Work Phone: Aortic Sinus Valsalva Index 1.24 cm/m2 [facility] Work Phone: Ascending Aorta 3.1 cm [facility] Work Phone: Ascending Aorta Index 1.60 cm/m2 [facility] Work Phone: AV Area by Peak Velocity 1.4 cm2 [facility] Work Phone: AV Area by VTI 1.4 cm2 [facility] Work Phone: AV Mean Gradient 9 mmHg [facility] Work Phone: AV Mean Velocity 1.4 m/s [facility] Work Phone: AV Peak Gradient 16 mmHg [facility] Work Phone: AV Peak Velocity 2.0 m/s [facility] Work Phone: AV Velocity Ratio 0.65 [facility] Work Phone: AV VTI 41.6 cm [facility] Work Phone: ROOSEVELT/BSA Peak Velocity 0.7 cm2/m2 [facility] Work Phone: ROOSEVELT/BSA VTI 0.7 cm2/m2 [facility] Work Phone: E/E' Lateral 18.20 [facility] Work Phone: E/E' Ratio (Averaged) 18.20 [facility] Work Phone: E/E' Septal 18.20 [facility] Work Phone: EF BP 55 % 55 - 100 % [facility] [employer] Work Phone: Fractional Shortening 2D 33 % 28 - 44 % [facility] [employer] Work Phone: Global Longitudinal Strain -17.1 % [facility] [employer] Work Phone: Interpretation and review of laboratory results Abnormal [facility] [employer] Work Phone: IVC Diameter 1.1 cm [facility] [employer] Work Phone: IVSd 1.0 cm Abnormal 0.6 - 0.9 cm [facility] [employer] Work Phone: LA Diameter 3.5 cm [facility] [employer] Work Phone: LA Size Index 1.80 cm/m2 [facility] Work Phone: LA Volume 2C 61 mL Abnormal 22 - 52 mL [facility] [employer] Work Phone: LA Volume 4C 71 mL Abnormal 22 - 52 mL [facility] [employer] Work Phone: LA Volume A/L 70 mL [facility] Work Phone: LA Volume BP 65 mL Abnormal 22 - 52 mL [facility] [employer] Work Phone: LA Volume Index 2C 31 mL/m2 16 - 34 mL/m2 [facility] Work Phone: LA Volume Index 4C 37 mL/m2 Abnormal 16 - 34 mL/m2 [facility] Work Phone: LA Volume Index A/L 36 mL/m2 16 - 34 mL/m2 [facility] Work Phone: LA Volume Index BP 34 ml/m2 16 - 34 ml/m2 [facility] Work Phone: LA/AO Root Ratio 1.46 [facility] Work Phone: LV E' Lateral Velocity 5 cm/s [facility] Work Phone: LV E' Septal Velocity 5 cm/s [facility] Work Phone: LV EDV A2C 109 mL [facility] [employer] Work Phone: LV EDV A4C 89 mL [...] Health Work Phone: LVOT Area 2.3 cm2 [facility] Work Phone: LVOT Cardiac Output 4.8 liter/minute [facility] Work Phone: LVOT Diameter 1.7 cm [facility] Work Phone: LVOT Mean Gradient 4 mmHg [facility] Work Phone: LVOT Peak Gradient 6 mmHg [facility] Work Phone: LVOT Peak Velocity 1.3 m/s [facility] Work Phone: [phone] LVOT Stroke Volume Index 31.0 mL/m2 [facility] Work Phone: LVOT SV 60.1 ml [facility] Work Phone: LVOT VTI 26.5 cm [facility] Work Phone: [phone] LVOT:AV VTI Index 0.64 [facility] Work Phone: LVPWd 1.0 cm Abnormal 0.6 - 0.9 cm [facility] Work Phone: MV A Velocity 1.30 m/s [facility] Work Phone: MV E Velocity 0.91 m/s [facility] Work Phone: MV E Wave Deceleration Time 259.8 ms [facility] Work Phone: MV E/A 0.70 [facility] Work Phone: RA Area 4C 16.2 mL [facility] Work Phone: RV Basal Dimension 2.7 cm [facility] Work Phone: RV Free Wall Peak S' 11 cm/s [facility] Work Phone: RV Mid Dimension 1.5 cm [facility] alth Work Phone: Sinotubular Junction 2.0 cm [facility] Health Work Phone: TAPSE 2.0 cm 1.7 cm [facility] Work Phone: [employer] Work Phone: Heart Transthoracicon Left Ventricle: Left [...] PTon 02-10-2024 Inital Evaluation (1) - PT [facility] Physical Therapy [facility] [address] [place] [address]. [address] [place] [address] / REHABILITATION SERVICES INITIAL EVALUATION MR#: [id number] Acct: [id number] Name: YODIT LANDIN Rep #: [id number] : 1955 68 From: Betty Cherry PT. T, OCS Referring Dr.: Dr. Arnold Morton MD Status: REG R Insurance: [facility] ADV LIFE1 SELF PAY INSURANCE Patient's Visit [...] Response: No effect Lumbar Standing: Right Side [place] - Symptoms During Testing: No effect Lumbar Standing: Right Side [place] - Symptoms After Testing: No effect Lumbar Standing: Left Side [place] - Mechanical Response: No effect Lumbar Standing: Left Side [place] - Symptoms During Testing: Increases Lumbar Standing: Left Side [place] - Symptoms After Testing: No worse Balance/Special [...] soft tissue re (more content not included)... [address] 02-09-2024 36 Just refilled to requesting pharmacy in November for a 90 day supply plus one refill. Not due for refill until May 2024. [facility] 36 Prescription Request : Last medication check: 01/21/24 Last physical exam: 04/23/23 Next scheduled appointment: 04/15/24 Last date of refill on this medication 12/03/[address] 02-06-2024 36 Patient scheduled on 03/12/2024 for lab draw recheck. Would not have enough medication to last her for 2 months. Rescheduled her appointment for 02/12/[address] 02-05-2024 36 Prescription Request : Last medication check: 10/22/23 Last physical exam: 04/23/23 Next scheduled appointment: 01/16/24 Last date of refill on this medication 01/16/24 Normal [facility] Urgent Care Visit Reporton 0 02-05-2024 Urgent Care Visit Report [facility] [address], [address] [place] [address] OFFICE VISIT Date of Service: 02/05/24 MR#: [id number] Acct: [id number] Name: YODIT LANDIN Rep #: [id number] : 1955 Provider: KIZZY Negron Age/Sex: 68/F [place] [facility] [place] Status: Signed Intake Vital Signs 01/16/24 11:04 [...] Reasons: SINUS CONGESTION Chief Complaint: 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 Normal [facility] Office Visiton 01-21-2024 Follow-up visit [id number] Juan Landin 1955 F Date Provider Department Center 01/21/2024 [id number] HEMPHILL [facility] Family History Problem Relation Age of Onset Ovarian cancer Mother Arthritis Father Hearing loss Father Stroke Father Arthritis Brother Hearing loss Brother Hyperlipidemia Brother Family Status - Relation Status Age at Mother Father Brother Level of Service:02771 [place] OFFICE/OUTPATIENT ESTABLISHED MOD MDM 30 MIN Reason for Visit and Comments: Diabetes [34] Normal [facility] PATINSon 01-21-2024 PATINS Bring in research records. -Please call Central Scheduling at [phone] to schedule your outpatient test (CT of lung for lung cancer screening) Normal [facility] Progress Noteon 01-21-2024 Progress Note Improving. Patient t o continue follow-up with podiatry as previously directed. Continue orthotics Normal [facility] Progress Note Noted new murmur on physical examination. Will obtain echocardiogram to further evaluate. Most recent EKG in August 2023 (preop)- sinus rhythm. Denies any shortness of breath or chest pain. Normal [facility] Progress Note Uncontrolled. Recent change in levothyroxine dose increased to 100 mcg daily. Recommend starting new dosing and rechecking TSH in 8 weeks Normal [facility] Progress Note Mild elevation in bl ood pressure today. 146/80. Continue current medications Avapro 300 mg daily, chlorthalidone 25 mg daily, follow-up as directed. Normal [facility] Progress Note Controlled, continue metformin 1000 mg twice daily Normal [facility] Progress Note Follow-up with psych specialist as directed. Normal [facility] Progress Note Health Maintenance Addressed with Patient at Visit: Micro-pended Hep A- declined Lung CT-pended RSV-declined DM dental- 2 years ago AWV- beto'd 05/04/24 Printed and faxed orders to [facility]: Mammogram Echo CT Lung Normal [facility] Progress Note 01/21/2024 Yodit Landin (: 1955) is a 68 y.o. female , Established patient, here for evaluation of the following chief complaint(s): Diabetes And follow-up chronic conditions presents today for med check and follow-up on chronic conditions. ASSESSMENT/PLAN: 1. Type 2 diabetes mellitus without complication, without long-term current use of insulin ([facility] ([facility]) Assessment & Plan: Controlled, continue metformin 1000 mg twice daily Orders: - Microalbumin / creatinine, urine ratio 2. Hypothyroidism, unspecified type Assessment & Plan: Uncontrolled. Recent change in levothyroxine dose increased to 100 mcg daily. Recommend starting new dosing and rechecking TSH in 8 weeks 3. Degenerative disc disease, lumbar Assessment & Plan: Follow-up with psych specialist as directed. 4. Iron deficiency anemia, [...] Continue orthotics Follow up for 3 month [facility]. SUBJECTIVE/OBJECTIVE: HPI - Yodit Landin (: 1955) is a 68 y.o. female , Established patient, here for the evaluation of the following chief complaint(s): Diabetes Hearing deficit-just got new Hearing aids- has following up next week with iron bender Back pain-was referred to orthospine and reports seeing Dr. Marroquin (ortho-spine), for lumbar pain, is getting a MRI, and starting physical at [facility] in [place], still seeing chiropractor. States that she might end up getting back surgery. Denies any significant change in her symptoms, denies any bowel or bladder changes Foot pain-sees Dr. Brenner in [facility]- has inserts now and that is [...] (25 mg) by mouth daily. 12/03/23 Yes SedrickSAAF Longoria CNP cyanocobalamin (HM Vitamin B-12) 500 MCG tablet Take 500 mcg by mouth every other day. Yes Historical Provider, DIGESTIVE ENZYMES PO Take 175 mg by mouth in the morning and 175 mg at noon and 175 mg in the evening. Yes Historical Provider, ergocalciferol (Vitamin D-2) 1.25 MG (04445 UT) capsule Take 1 capsule (1.25 mg) by mouth 1 (one) time per week. 01/16/24 04/09/24 Yes SedrickASAF Longoria CNP ferrous sulfate 325 (65 Fe) MG tablet Take 325 mg by mouth every other day. Yes Historical Provider, furosemide (Lasix) 20 MG tablet TAKE 1 TABLET BY MOUTH DAILY 12/29/23 Yes ASAF Ramos CNP indomethacin (Indo (more content not included)... Normal [facility] 36on 01-15-2023 36 Patient is agreeable , scheduled in 8 weeks, orders and med pended, pharmacy verified. Please update sig for B12 as well. Normal [facility] L/S Spine Min 4 Viewson 12-25 L/S Spine Min 4 Views [facility] [address] [place] [address] L/S Spine Min 4 Views MR#: [id number] Acct: [id number] Name: YODIT LANDIN Rep #: [id number] : 1955 F 68 From: Sabine goddard MD PCP: Care Physician,No Primary Status: DEP AMB Study: L/S Spine Min 4 Views Date of Exam: 01/16/24 Exam# [id number] Ordering Dr: Enriqueta [place] [id number] HISTORY: Low back pain -- Please do [...] CC: KIZZY Hebert; No Primary Care Physician Licensing Worker: Signed Normal [facility] Orthopedic Visit Reporton Orthopedic Visit Report [facility] [address] [place] [address] OFFICE VISIT Date of Service: 01/16/24 MR#: [id number] Acct: [id number] Name: YODIT LANDIN Rep #: [id number] : 1955 Provider: Dr. Arnold Morton MD Age/Sex: 68/F [place] [facility] [place] Status: Signed Intake Vital Signs 07/01/23 17:47 [...] topical topical 01/16/24 01/16/24 History cream omega 5-yxm-psk-fish oil 1,200 mg cap PO 01/16/24 01/16/24 [...] and had a PT on site at [facility] who would adjust her hips when [...] Physical Therapy Referra (more content not included)... [facility] 3601-15-2024 36 ----- Message from 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, ASAF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 sent at 01/15/2024 4:16 PM EDT ----- Iron and TIBC still low normal range however gradually improving CBC-slight improvement in hemoglobin Ferritin-unchanged TSH-elevated, meaning we need to adjust the levothyroxine, recommend increasing to 100 mcg daily and rechecking in 8 weeks [id number] slightly elevated, may reduce B12 supplement to every other day Folate-normal Transferrin-normal Back to Top Vit d low- 25, recommend vitamin D 50,000 international units once weekly x 12 weeks, then 2000 international units daily [id number]-[id number] (please see other results) Left a message [...] then no nurse visit is needed. Thanks! [facility] Progress Noteon 01-14-2024 Progress Note Venipuncture complet ed by [facility]. [facility] 36on 12-29-2023 36 Reviewed chart. Refi ll appropriate. RX sent. [place] [address] Prescription Request : Last date of refill on this medication Sent 10/22/23 to [facility] 90 day 1 refill [facility] 36on 12-26-2023 36 Spoke to patient, no questions. [place] [address]on 12-25-[address] would fill out the form, since they are the ones ordering it. [facility] 36 Name of caller: Juan salgado Contact phone number: [phone] Relationship to Patient: patient Provider: 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 [...] business hours to return their call: Yes [facility] 36on 12-24-2023 36 Name of caller: Juan Landin Contact phone number: [phone] Relationship to Patient: patient Provider: Dr. Key Practice: [facility] Chief Complaint/Reason for Call: Patient is returning call from office regarding x-ray results. Please call patient back to discuss results. Please advise, thank you. Best time of day caller can be reached: Any Patient advised that office/PCP has 24-48 business hours to return their call: Yes [facility] 36 LM for pt to return call [place] [address] ----- Message from ASAF Ramos CNP sent [...] disc disease- recommend evaluation by orthospine doctor. [place] 8363412-12-[address] Jimenez had to be mailed out-no fax number provided on website, attempted calling them and no answer and unable to leave voicemail (recording kept rotating). My chart message sent to patient with list of [facility] that accept her insurance advised her to please let us know who she would like us to put a referral in for and to call them to be sure they accept her insurance. [facility] 36on 12-11-2023 36 Please see if we can get records from Dr. Trena Jimenez, chiropractor in [place]. Patient thinks she had imaging done in 2019? That Dr. Jimenez had ordered. Also would like Dr. Jimenez's last treatment plan Also- does she have anyone in mind for podiatry? She can check with her insurance to see who else is in network for her and I can make the referral if needed. [facility] 36on 12-10-2023 36 Patient stopped in today [...] someone would be in touch. Thank you! [facility] 36on 12-09-2023 36 Spoke to Yodit, send to [facility] please. Thanks! [facility] 36 What pharmacy does s he want this sent to [place] [address] Spoke to mariely Monsivais that her old doctor from [place], Dr. Caitlin Hope, was the one who prescribed it for her last, and gave her 23 refills. States that since she is no longer down in [place], she cannot get it filled through them. 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 [facility] 36 Refused, this does n ot look like we ever prescribed the medication [facility] 36 Prescription Request : Last medication check: 10/22/2023 Last physical exam: 04/23/2023 Next scheduled appointment: 01/21/2024 Last date of refill on this medication: 10/22/2022 [facility] Absolute lymphocyte countOrd ered By: Juan Jose Stallworth on 07-01-2023 Lymphocytes Auto (Unsp spec) [#/Vol] 2.12 10*3/uL 0.83-4.51 [facility] Automated lymphocyte count a s percentage of total leukocytesOrdered By: Juan Jose Stallworth on 07-01-2023 Lymphocytes/100 WBC Auto (Unsp spec) 31.6 % 19-41 [facility] Basophil percentageOrdered B y: Juan Jose Stallworth on 07-01-2023 Basophil percentage 5-10 SEEN /hpf 0-5 [facility] Basophils/100 WBC (Bld) 0.3 % 0-1 [facility] Chloride [Moles/Vol] 99 mmol/L 98-107 [facility] Eosinophils/100 WBC (Bld) 3.6 % 0-5 [facility] Glucose [Mass/Vol] 123 mg/dL 74-106 [facility] Comment on above: Fasting Glucose resu lt from 100 to 125 mg/dL suggests IMPAIRED HOMEOSTASIS per A.D.A. criteria. Hemoglobin (Bld) [Mass/Vol] 12.0 g/dL 12.0-15.0 [facility] Monocytes/100 WBC (Bld) 12.1 % 0-10 [facility] Neutrophils (Bld) [#/Vol] 3.5 10*3/uL 2.0-7.7 [facility] Neutrophils/100 WBC (Bld) 52.3 % 47-70 [facility] Potassium [Moles/Vol] 3.5 mmol/L 3.5-5.1 [facility] Sodium [Moles/Vol] 133 mmol/L 136-145 [facility] WBC (Bld) [#/Vol] 6.7 10*3/uL 4.4-11.0 [facility] Bilirubin Test strip Ql (U)O rdered By: Juan Jose Stallworth on 07-01-2023 Bilirubin Ql (U) 1 mg/dL Negative [facility] Comment on above: COLOR OF URINE MAY A FFECT DIPSTICK RESULTS. Determination of erythrocyte mean corpuscular volume (MCV)Ordered By: Juan Jose Stallworth on 07-01-2023 MCV (RBC) [Entitic vol] 89.3 fL 81-99 [facility] Erythrocyte distribution wid th ratioOrdered By: Juan Jose Stallworth on 07-01-2023 Erythrocyte distribution width (RBC) [Ratio] 13.5 % 11.6-14.6 [facility] Erythrocyte distribution wid th standard deviationOrdered By: Juan Jose Stallworth on 07-01-2023 Erythrocyte distribution width (RBC) [Entitic vol] 44.1 fL 35.1-43.9 [facility] Hematocrit Auto (Bld) [Volum e fraction]Ordered By: Juan Jose Stallworth on 07-01-2023 Hematocrit (Bld) [Volume fraction] 35.9 % 37-47 [facility] Immature granulocytes/100 WB C Auto (Bld)Ordered By: Juan Jose Stallworth on 07-01-2023 Immature granulocytes/100 WBC (Bld) 0.100 % 0.0-0.9 [facility] Comment on above: IG% - Immature Granu locytes (promyelocytes, myelocytes and metamyelocytes) > 1% indicates that a LEFT SHIFT is Present. Ketones Test strip Ql (U)Ord ered By: Juan Jose Stallworth on 07-01-2023 Ketones Ql (U) 5 mg/dl Negative [facility] Laboratory - Chemistry and C hemistry - challengeOrdered By: Juan Jose Stallworth on 07-01-2023 CO2 [Moles/Vol] 27.0 mmol/L 21.0-32.0 [facility] Urea nitrogen/Creatinine [Mass ratio] 20.3 mg/mg 10-20 [facility] Laboratory - Hematology and Cell countsOrdered By: Juan Jose Stallworth on 07-01-2023 MCH (RBC) [Entitic mass] 29.9 pg 27.0-32.0 [facility] MCHC (RBC) [Mass/Vol] 33.4 g/dL 32-36 [facility] Nucleated RBC/100 WBC (Bld) [Ratio] 0 % 0-5 [facility] Platelet mean volume (Bld) [Entitic vol] 9.7 fL 6.2-12.0 [facility] Platelets (Bld) [#/Vol] 192 10*3/uL 150-450 [facility] Mucus LM Ql (Urine sed)Order ed By: Juan Jose Stallworth on 07-01-2023 Mucus Ql (Urine sed) 0 SEEN /hpf [facility] Nitrite Test strip Ql (U)Ord ered By: Juan Jose Stallworth on 07-01-2023 Nitrite Ql (U) Negative Negative [facility] No Panel InformationOrdered By: Juan Jose Stallworth on 07-01-2023 Urine RBC 0 SEEN /hpf 0-5 [facility] Estimated Creatinine Clearance Calc 27.28 ml/min [facility] Estimated GFR (MDRD) Amer 35 mL/min >60 [facility] Comment on above: GFR Calc Estimated GFR (MDRD) Non-Af Amer 29 mL/min >60 [facility] Comment on above: Non- GFR Calc Protein Test strip Ql (U)Ord ered By: Juan Jose Stallworth on 07-01-2023 Protein Ql (U) 15 mg/dl Negative [facility] RBC Auto (Bld) [#/Vol]Ordere d By: Juan Jose Stallworth on 07-01-2023 RBC (Bld) [#/Vol] 4.02 10*6/uL 4.2-5.4 [facility] Serum or plasma calcium bettina urement (mass/volume)Ordered By: Juan Jose Stallworth on 07-01-2023 Calcium [Mass/Vol] 8.7 mg/dL 8.5-10.1 [facility] Serum or plasma creatinine m easurement (mass/volume)Ordered By: Juan Jose Stallworth on 07-01-2023 Creatinine [Mass/Vol] 1.82 mg/dL 0.55-1.02 [facility] Comment on above: The validity of the calculated GFR & GFRAA in patients over 70 years has not been determined. Clinical correlation is essential. Serum or plasma urea nitroge n measurement (mass/volume)Ordered By: Juan Jose Stallworth on 07-01-2023 Urea nitrogen [Mass/Vol] 37 mg/dL 7-18 [facility] Squamous epithelial cells de tection in urine sediment by light microscopyOrdered By: Juan Jose Stallworth on 07-01-2023 Epithelial cells.squamous LM Ql (Urine sed) 0-5 SEEN /hpf 5-10 [facility] Thin prep Papanicolaou smear with manual screeningOrdered By: Juan Jose Stallworth on 07-01-2023 Thin prep Papanicolaou smear with manual screening 7 5-15 [facility] Urine blood detectionOrdered By: Juan Jose Stallworth on 07-01-2023 RBC Ql (U) Negative Negative [facility] Urine clarityOrdered By: Reyes Stallworth on 07-01-2023 Clarity (U) Sl. Cloudy Clear [facility] Urine color determinationOrd ered By: Juan Jose Stallworth on 07-01-2023 Color (U) Yellow Yellow [facility] Urine glucose detectionOrder ed By: Juan Jose Stallworth on 07-01-2023 Glucose Ql (U) Normal mg/dl Normal [facility] Urine leukocyte esterase det ection by dipstickOrdered By: Juan Jose Stallworth on 07-01-2023 Leukocyte esterase Test strip Ql (U) 100 /ul Negative [facility] Urine pHOrdered By: Juan Joes randhawa on 07-01-2023 pH (U) 5.0 [pH] 5.0 - 8.0 [facility] Urine sediment bacteria coun t by microscopy (number/high power field)Ordered By: Juan Jose Stallworth on 07-01-2023 Bacteria LM.HPF (Urine sed) [#/Area] 0 /[HPF] None Seen [facility] Urine specific gravity measu rementOrdered By: Juan Jose Stallworth on 07-01-2023 Specific gravity (U) [Rel density] 1.020 1.002-1.030 [facility] Urine urobilinogen measureme ntOrdered By: Juan Jose Stallworth on 07-01-2023 Urobilinogen Ql (U) 4 mg/dl Normal [facility] XR WRIST MINIMUM 3 VIEWS RIG [...] 06/07/2023 7:22:26 AM Ordering Provider: SEDRICK HEMPHILL [facility] ([place]) Vital Signs Date Time Vital Sign Value Performing Clinician Facility 06-28-2024 10:00-0500 Diastolic blood pressure 81 mm[Hg] 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 [employer]OO[employer]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 Work Phone: [facility] 06-28-2024 10:00-0500 Systolic blood pressure 140 mm[Hg] 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 [employer]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 Work Phone: [facility] [employer] 06-28-2024 09:30-0500 Body mass index (BMI) [Ratio] 35.95 kg/m2 Sedrick Bridenthal [employer]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 Work Phone: [facility] [employer] 06-28-2024 09:30-0500 Body weight 93.53 kg Sedrick Bridenthal [employer]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 Work Phone: [facility] [employer] 06-28-2024 09:30-0500 Heart rate 83 /min Sedrick Bridenthal [employer]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 Work Phone: [facility] [employer] 06-28-2024 09:30-0500 Respiratory rate 24 /min Sedrick Bridenthal [employer]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 Work Phone: [facility] [employer] 06-28-2024 09:30-0500 SaO2% (BldA) [Mass fraction] 98 % Sedrick Bridenthal [employer]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 Work Phone: [facility] [employer] 05-25-2024 10:47-0500 Body mass index (BMI) [Ratio] 35.08 kg/m2 Sedrick Bridenthal [employer]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 Work Phone: [facility] [employer] 05-25-2024 10:47-0500 Body temperature 97.7 [degF] Sedrick Bridenthal [employer]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 Work Phone: [facility] [employer] 05-25-2024 10:47-0500 Body weight 91.26 kg Sedrick Bridenthal [employer]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 Work Phone: [facility] [employer] 05-25-2024 10:47-0500 Diastolic blood pressure 73 mm[Hg] Sedrick Bridenthal 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 Work Phone: [facility] 05-25-2024 10:47-0500 Heart rate 109 /min Sedrick Bridenthal 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 Work Phone: [facility] 05-25-2024 10:47-0500 Respiratory rate 20 /min Sedrick Bridenthal 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 Work Phone: [facility] 05-25-2024 10:47-0500 SaO2% (BldA) [Mass fraction] 96 % Sedrick Bridenthal 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 Work Phone: [facility] 05-25-2024 10:47-0500 Systolic blood pressure 119 mm[Hg] Sedrick Bridenthal 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 Work Phone: [facility] 05-04-2024 09:49-0500 Diastolic blood pressure 79 mm[Hg] Moshe Key MD Work Phone: [facility] 05-04-2024 09:49-0500 Heart rate 78 /min Moshe Key MD Work Phone: [facility] 05-04-2024 09:49-0500 Systolic blood pressure 134 mm[Hg] Moshe Key MD Work Phone: [facility] 05-04-2024 09:13-0500 Body height 161.3 cm Moshe Key MD Work Phone: [facility] 05-04-2024 09:13-0500 Body mass index (BMI) [Ratio] 35.61 kg/m2 Moshe Key MD Work Phone: [facility] 05-04-2024 09:13-0500 Body weight 92.63 kg Moshe Key MD Work Phone: [facility] 05-04-2024 09:13-0500 SaO2% (BldA) [Mass fraction] 96 % Moshe Key MD Work Phone: [facility] 03-09-2024 11:10-0400 Heart rate 76 /min Sedrick Bridenthal 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 Work Phone: [facility] Comment on above: apical 03-09-2024 10:57-0400 Body height 161.3 cm Sedrick Bridenthal 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 Work Phone: [facility] 03-09-2024 10:57-0400 Body mass index (BMI) [Ratio] 35.33 kg/m2 Sedrick Karrieenthal [employer]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 Work Phone: [facility] 03-09-2024 10:57-0400 Body temperature 98.01 [degF] Sedrick Bridenthal 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 Work Phone: [facility] 03-09-2024 10:57-0400 Body weight 91.9 kg Sedrick Bridenthal 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 Work Phone: [facility] 03-09-2024 10:57-0400 Diastolic blood pressure 76 mm[Hg] Sedrick Bridenthal 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 Work Phone: [facility] 03-09-2024 10:57-0400 Respiratory rate 18 /min Sedrick Bridenthal 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 Work Phone: [facility] 03-09-2024 10:57-0400 SaO2% (BldA) [Mass fraction] 97 % Sedrick Bridenthal 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 Work Phone: [facility] 03-09-2024 10:57-0400 Systolic blood pressure 146 mm[Hg] Sedrick Bridenthal 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 Work Phone: [facility] 02-23-2024 11:17-0400 Body height 161.3 cm Sedrick Bridenthal 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 Work Phone: [facility] 02-23-2024 11:17-0400 Body mass index (BMI) [Ratio] 34 kg/m2 Sedrick Bridenthal 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 Work Phone: [facility] 02-23-2024 11:17-0400 Body weight 88.45 kg Sedrick Bridenthal 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 Work Phone: [facility] 02-12-2024 14:31-0400 Body height 160 cm Sedrick Bridenthal 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 Work Phone: [facility] 02-12-2024 14:31-0400 Body mass index (BMI) [Ratio] 35.78 kg/m2 Sedrick Bridenthal 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 Work Phone: [facility] 02-12-2024 14:31-0400 Body weight 91.63 kg Sedrick Bridenthal 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 Work Phone: [facility] 01-21-2024 11:19-0400 Diastolic blood pressure 80 mm[Hg] Sedrick Bridenthal 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 Work Phone: [facility] 01-21-2024 11:19-0400 Systolic blood pressure 146 mm[Hg] Sedrick Bridenthal 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 Work Phone: [facility] 01-21-2024 10:18-0400 Body mass index (BMI) [Ratio] 35.92 kg/m2 Sedrick Bridenthal 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 Work Phone: [facility] 01-21-2024 10:18-0400 Body temperature 98.29 [degF] Sedrick Bridenthal 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 Work Phone: [facility] 01-21-2024 10:18-0400 Body weight 91.99 kg Sedrick Bridenthal 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 Work Phone: [facility] 01-21-2024 10:18-0400 Heart rate 101 /min Sedrick Bridenthal 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 Work Phone: [facility] 01-21-2024 10:18-0400 Respiratory rate 20 /min Sedrick Bridenthal [employer]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 Work Phone: [facility] 01-21-2024 10:18-0400 SaO2% (BldA) [Mass fraction] 97 % Sedrick Bridenthal 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 Work Phone: [facility] 12-01-2023 09:29-0400 Diastolic blood pressure 80 mm[Hg] Sedrick Bridenthal [employer]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 Work Phone: [facility] 12-01-2023 09:29-0400 Heart rate 64 /min Sedrick Karrieenthal [employer]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 Work Phone: [facility] 12-01-2023 09:29-0400 Systolic blood pressure 133 mm[Hg] Sedrick Bridenthal [employer]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 Work Phone: [facility] 12-01-2023 09:03-0400 Body height 160 cm Sedrick Bridenthal 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 Work Phone: [facility] 12-01-2023 09:03-0400 Body mass index (BMI) [Ratio] 35.39 kg/m2 Sedrick Bridenthal 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 Work Phone: [facility] 12-01-2023 09:03-0400 Body weight 90.63 kg Sedrick Bridenthal [employer]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 Work Phone: [facility] 12-01-2023 09:03-0400 SaO2% (BldA) [Mass fraction] 96 % Sedrick Karrieenthal [employer]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 Work Phone: [facility] 11-25-2023 13:02-0400 Body height 160 cm Nadya Biro PA-C Work Phone: [facility] 11-25-2023 13:02-0400 Body mass index (BMI) [Ratio] 35.78 kg/m2 Nadya Biro PA-C Work Phone: [facility] 11-25-2023 13:02-0400 Body weight 91.63 kg Nadya Biro PA-C Work Phone: [facility] 11-25-2023 13:02-0400 Diastolic blood pressure 66 mm[Hg] Nadya Biro PA-C Work Phone: [facility] 11-25-2023 13:02-0400 Systolic blood pressure 128 mm[Hg] Nadya Biro PA-C Work Phone: [facility] 10-22-2023 10:16-0400 Body mass index (BMI) [Ratio] 35.89 kg/m2 Sedrick Bridenthal 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 Work Phone: [facility] 10-22-2023 10:16-0400 Body temperature 98.4 [degF] Sedrick Bridenthal [employer]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 Work Phone: [facility] 10-22-2023 10:16-0400 Body weight 91.9 kg Sedrick Bridenthal [employer]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 Work Phone: [facility] 10-22-2023 10:16-0400 Diastolic blood pressure 59 mm[Hg] Sedrick Bridenthal [employer]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 Work Phone: [facility] 10-22-2023 10:16-0400 Heart rate 65 /min Sedrick Bridenthal 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 Work Phone: [facility] 10-22-2023 10:16-0400 Respiratory rate 18 /min Sedrick Bridenthal 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 Work Phone: [facility] 10-22-2023 10:16-0400 SaO2% (BldA) [Mass fraction] 96 % Sedrick Bridenthal 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 Work Phone: [facility] 10-22-2023 10:16-0400 Systolic blood pressure 139 mm[Hg] Sedrick Bridenthal 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 Work Phone: [facility] 10-14-2023 12:57-0400 Body height 160 cm Nadya Biro PA-C Work Phone: [facility] 10-14-2023 12:57-0400 Body mass index (BMI) [Ratio] 35.43 kg/m2 Nadya Biro PA-C Work Phone: [facility] 10-14-2023 12:57-0400 Body weight 90.72 kg Nadya Biro PA-C Work Phone: [facility] 10-14-2023 12:57-0400 Diastolic blood pressure 78 mm[Hg] Nadya Biro PA-C Work Phone: [facility] 10-14-2023 12:57-0400 Systolic blood pressure 122 mm[Hg] Nadya Biro PA-C Work Phone: [facility] 09-16-2023 12:49-0400 Body height 160 cm Nadya Biro PA-C Work Phone: [facility] 09-16-2023 12:49-0400 Body mass index (BMI) [Ratio] 35.43 kg/m2 Nadya Biro PA-C Work Phone: [facility] 09-16-2023 12:49-0400 Body weight 90.72 kg Nadya Biro PA-C Work Phone: [facility] 09-16-2023 12:49-0400 Diastolic blood pressure 74 mm[Hg] Andya Biro PA-C Work Phone: [facility] 09-16-2023 12:49-0400 Systolic blood pressure 126 mm[Hg] Nadya Biro PA-C Work Phone: [facility] 09-04-2023 10:18-0400 Body height 160 cm Sedrick Bridenthal 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 Work Phone: [facility] 09-04-2023 10:18-0400 Body mass index (BMI) [Ratio] 36.67 kg/m2 Sedrick Bridenthal 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 Work Phone: [facility] 09-04-2023 10:18-0400 Body weight 93.89 kg Sedrick Bridenthal 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 Work Phone: [facility] 09-04-2023 10:18-0400 Diastolic blood pressure 74 mm[Hg] Sedrick Bridenthal 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 Work Phone: [facility] 09-04-2023 10:18-0400 Heart rate 82 /min Sedrick Bridenthal 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 Work Phone: [facility] 09-04-2023 10:18-0400 SaO2% (BldA) [Mass fraction] 94 % Sedrick Bridchristina [employer]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 Work Phone: [facility] 09-04-2023 10:18-0400 Systolic blood pressure 123 mm[Hg] 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 [employer]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 Work Phone: [facility] 09-03-2023 10:55-0400 Heart rate 74 /min Austin Leos MD Work Phone: [facility] 09-03-2023 10:55-0400 SaO2% (BldA) [Mass fraction] 98 % Austin Leos MD Work Phone: [facility] 09-03-2023 10:45-0400 Diastolic blood pressure 56 mm[Hg] Austin Leos MD Work Phone: [facility] 09-03-2023 10:45-0400 Systolic blood pressure 101 mm[Hg] Austin Leos MD Work Phone: [facility] 09-03-2023 10:35-0400 Respiratory rate 16 /min Austin Leos MD Work Phone: [facility] 09-03-2023 07:56-0400 Body height 160 cm Austin Leos MD Work Phone: [facility] 09-03-2023 07:56-0400 Body mass index (BMI) [Ratio] 35.43 kg/m2 Austin Leos MD Work Phone: [facility] 09-03-2023 07:56-0400 Body temperature 97.81 [degF] Austin Leos MD Work Phone: [facility] 09-03-2023 07:56-0400 Body weight 90.72 kg Austin Leos MD Work Phone: [facility] 08-05-2023 13:04-0400 Body height 161.3 cm Austin Leos MD Work Phone: [facility] 08-05-2023 13:04-0400 Body mass index (BMI) [Ratio] 33.83 kg/m2 Austin Leos MD Work Phone: [facility] 08-05-2023 13:04-0400 Body weight 88 kg Austin Leos MD Work Phone: [facility] 08-05-2023 13:04-0400 Diastolic blood pressure 68 mm[Hg] Austin Leos MD Work Phone: [facility] 08-05-2023 13:04-0400 Systolic blood pressure 104 mm[Hg] Austin Leos MD Work Phone: [facility] 07-24-2023 10:02-0500 Body mass index (BMI) [Ratio] 34.39 kg/m2 Sedrick Bridenthal 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 Work Phone: [facility] 07-24-2023 10:02-0500 Body temperature 98.2 [degF] Sedrick Bridenthal 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 Work Phone: [facility] 07-24-2023 10:02-0500 Body weight 90.27 kg Sedrick Bridenthal 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 Work Phone: [facility] 07-24-2023 10:02-0500 Diastolic blood pressure 60 mm[Hg] Sedrick Bridenthal 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 Work Phone: [facility] 07-24-2023 10:02-0500 Heart rate 50 /min Sedrick Bridenthal 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 Work Phone: [facility] 07-24-2023 10:02-0500 Respiratory rate 24 /min Sedrick Bridenthal 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 Work Phone: [facility] 07-24-2023 10:02-0500 SaO2% (BldA) [Mass fraction] 99 % Sedrick Bridenthal 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 Work Phone: [facility] 07-24-2023 10:02-0500 Systolic blood pressure 96 mm[Hg] Sedrick Bridenthal [employer]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 Work Phone: [facility] 07-01-2023 20:00-0500 Diastolic blood pressure 74 mm[Hg] PA Gerry Gray PA Work Phone: [facility] 07-01-2023 20:00-0500 Heart rate 72 /min PA Gerry Gray PA Work Phone: [facility] 07-01-2023 20:00-0500 Respiratory rate 16 /min PA Gerry Gray PA Work Phone: [facility] 07-01-2023 20:00-0500 SaO2% (BldA) [Mass fraction] 98 % PA Gerry Gray PA Work Phone: [facility] 07-01-2023 20:00-0500 Systolic blood pressure 116 mm[Hg] PA Gerry Gray PA Work Phone: [facility] 07-01-2023 17:47-0500 Body height 160.02 cm PA Gerry Gray PA Work Phone: [facility] 07-01-2023 17:47-0500 Body mass index (BMI) [Ratio] 26.3 kg/m2 PA Gerry Gray PA Work Phone: [facility] 07-01-2023 17:47-0500 Body temperature 96.7 [degF] PA Gerry Gray PA Work Phone: [facility] 07-01-2023 17:47-0500 Body weight 67.44 kg PA Gerry Gray PA Work Phone: [facility] 07-01-2023 17:03-0500 Body mass index (BMI) [Ratio] 34.3 kg/m2 PA Gerry Gray PA Work Phone: [facility] 07-01-2023 17:03-0500 Body temperature 98.2 [degF] PA Gerry Gray PA Work Phone: [facility] 07-01-2023 17:03-0500 Body weight 87.99 kg PA Gerry Gray PA Work Phone: [facility] 07-01-2023 17:03-0500 Diastolic blood pressure 82 mm[Hg] PA Gerry DURAND Work Phone: [facility] 07-01-2023 17:03-0500 Heart rate 98 /min PA Gerry DURAND Work Phone: [facility] 07-01-2023 17:03-0500 Respiratory rate 14 /min PA Gerry DURAND Work Phone: [facility] 07-01-2023 17:03-0500 SaO2% (BldA) [Mass fraction] 93 % PA Gerry Gray PA Work Phone: [facility] 07-01-2023 17:03-0500 Systolic blood pressure 142 mm[Hg] PA Gerry Gray PA Work Phone: [facility] 06-04-2023 13:40-0500 Diastolic blood pressure 78 mm[Hg] Sedrick Bridenthal 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 Work Phone: [facility] 06-04-2023 13:40-0500 Systolic blood pressure 131 mm[Hg] Sedrick Bridenthal [employer]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 Work Phone: [facility] 06-04-2023 13:11-0500 Body mass index (BMI) [Ratio] 35.26 kg/m2 Sedrick Bridenthal 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 Work Phone: [facility] 06-04-2023 13:11-0500 Body temperature 98.4 [degF] Sedrick Bridenthal [employer]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 Work Phone: [facility] 06-04-2023 13:11-0500 Body weight 92.53 kg Sedrick Bridenthal 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 Work Phone: [facility] 06-04-2023 13:11-0500 Heart rate 78 /min Sedrick Bridenthal [employer]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 Work Phone: [facility] 06-04-2023 13:11-0500 Respiratory rate 24 /min Sedrick Bridenthal [employer]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 Work Phone: [facility] 06-04-2023 13:11-0500 SaO2% (BldA) [Mass fraction] 98 % Sedrick Bridenthal [employer]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 Work Phone: [facility] 04-23-2023 10:06-0500 Body height 162 cm Sedrick Bridenthal [employer]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 Work Phone: [facility] 04-23-2023 10:06-0500 Body mass index (BMI) [Ratio] 34.74 kg/m2 Sedrick Bridenthal 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 Work Phone: [facility] 04-23-2023 10:06-0500 Body temperature 97.81 [degF] Sedrick Bridenthal [employer]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 Work Phone: [facility] 04-23-2023 10:06-0500 Body weight 91.17 kg Sedrick Bridenthal [employer]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 Work Phone: [facility] 04-23-2023 10:06-0500 Diastolic blood pressure 87 mm[Hg] Sedrick Bridenthal [employer]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 Work Phone: [facility] 04-23-2023 10:06-0500 Heart rate 89 /min Sedrick Bridenthal [employer]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 Work Phone: [facility] 04-23-2023 10:06-0500 Respiratory rate 20 /min Sedrick Bridenthal [employer]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 Work Phone: [facility] 04-23-2023 10:06-0500 SaO2% (BldA) [Mass fraction] 93 % Sedrick Bridenthal [employer]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 Work Phone: [facility] 04-23-2023 10:06-0500 Systolic blood pressure 153 mm[Hg] Sedrick Bridenthal [employer]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 Work Phone: [facility] 04-02-2023 12:45-0500 Diastolic blood pressure 78 mm[Hg] Sedrick Bridenthal [employer]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 Work Phone: [facility] 04-02-2023 12:45-0500 Systolic blood pressure 132 mm[Hg] Sedrick Bridenthal [employer]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 Work Phone: [facility] 04-02-2023 11:07-0500 Body temperature 98.01 [degF] Sedrick Bridenthal [employer]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 Work Phone: [facility] 04-02-2023 11:07-0500 Body weight 92.08 kg Sedrick Bridenthal [employer]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 Work Phone: [facility] 04-02-2023 11:07-0500 Heart rate 78 /min Sedrick Bridenthal [employer]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 Work Phone: [facility] 04-02-2023 11:07-0500 Respiratory rate 24 /min Sedrick Bridenthal [employer]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 Work Phone: [facility] 04-02-2023 11:07-0500 SaO2% (BldA) [Mass fraction] 98 % Sedrick Bridenthal [employer]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 Work Phone: [facility] Encounters Encounter Date Encounter Type Care Provider Facility Start: 11-30-2024 End: 11-30-2024 Refill Sedrick Bridenthal [employer]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 Work Phone: [facility] Comment on above: Hypothyroidism, unsp ecified type Start: 11-10-2024 End: 11-10-2024 Refill Sedrick Bridenthal [employer]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 Work Phone: [facility] Comment on above: Gastroesophageal ref lux disease without esophagitis; Swelling of both lower extremities Start: 09-23-2024 End: 09-23-2024 ambulatory [facility] [place] [place]: 09-22-2024 End: 09-22-2024 Refill Moshe Key MD Work Phone: [facility] Comment on above: Hypothyroidism, unsp ecified type Start: 09-02-2024 End: 09-02-2024 Refill Jessica Smith [employer]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 Work Phone: [facility] Comment on above: Pure hypercholestero lemia Start: 08-30-2024 End: 08-30-[address] Moshe Key MD Work Phone: [facility] Work Phone: Start: 08-30-2024 End: 08-30-[address] Arnold Morton MD -[facility] Work Phone: Start: 08-30-2024 End: 08-30-2024 ambulatory Arnold Morton Facility:[facility] Start: 08-05-2024 End: 08-05-2024 ambulatory Start: 08-04-2024 End: 08-05-2024 Refill Jessica Smith [employer]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 Work Phone: [facility] Comment on above: Pure hypercholestero lemia Start: 07-30-2024 End: 07-30-[address] Arnold Morton MD -[facility] Work Phone: Start: 07-30-2024 End: 07-30-2024 ambulatory Moshe Yesi [place] [place]: 07-28-2024 End: 07-28-2024 Patient encounter procedure Tabby WALKER -[facility] Work Phone: Start: 07-28-2024 End: 07-28-2024 ambulatory [facility] Facility[place] [place] Start: 07-19-2024 End: 07-19-2024 Refill 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 Work Phone: [facility] Comment on above: Post-nasal drainage; Primary hypertension Start: 07-07-2024 End: 07-07-2024 Patient encounter procedure Tabby WALKER -[facility] Work Phone: Start: 07-07-2024 End: 07-07-2024 ambulatory Moshe Key Facility:[facility] Start: 07-05-2024 End: 07-05-2024 Telephone encounter Moshe Key MD Work Phone: [facility] Start: 07-05-2024 End: 07-05-2024 ambulatory Start: 07-02-2024 End: 07-02-2024 Patient encounter procedure Enriqueta DURAND -[facility] Work Phone: Start: 07-02-2024 End: 07-02-2024 ambulatory Moshe Key Facility:[facility] Start: 06-28-2024 End: 06-28-2024 Office outpatient visit 15 minutes Sedrick Bridenthal 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 [facility] Comment on above: Osteoarthritis of ri ght knee, unspecified osteoarthritis type (Primary Dx); Pure hypercholesterolemia Start: 06-28-2024 End: 06-28-2024 Office outpatient visit 25 minutes Sedrick Bridenthal 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 Work Phone: [facility] Comment on above: Osteoarthritis of ri ght knee, unspecified osteoarthritis type (Primary Dx); Pure hypercholesterolemia Start: 06-28-2024 End: 06-28-2024 ambulatory SEDRICK BRIDENTHAL [facility] Start: 06-10-2024 End: 06-10-2024 Refill Moshe Key MD Work Phone: [facility] Comment on above: Gastroesophageal ref lux disease without esophagitis; Vitamin D deficiency Start: 06-03-2024 End: 06-03-2024 ambulatory Start: 06-02-2024 End: 06-02-2024 Refill Sedrick Bridenthal 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 Work Phone: [facility] Start: 05-31-2024 End: 05-31-2024 ambulatory Arnold Morton Facility:[facility] Start: 05-31-2024 End: 05-31-[address] Arnold Morton MD -Physical Therapy Work Phone: Start: 05-25-2024 End: 06-16-2024 Telephone encounter Sedrick Bridenthal 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 Work Phone: [facility] Comment on above: Results Start: 05-25-2024 End: 05-25-2024 ambulatory SEDRICK BRIDENTHAL [employer]/DRIVER WHEELCHAIR Facility:[facility] Start: 05-25-2024 End: 05-25-2024 Patient encounter procedure SEDRICK KARRIEENTHAL ROOF TILE LAYER/DRIVER WHEELCHAIR [facility] Start: 05-25-2024 End: 05-25-2024 Office outpatient visit 15 minutes Sedrick Karrieenthal ROOF TILE LAYER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 Work Phone: [facility] Comment on above: Acute pain of right knee (Primary Dx) Start: 05-25-2024 End: 05-25-2024 ambulatory SEDRICK PAULAL [facility] Start: 05-24-2024 End: 05-24-2024 ambulatory Gerri Hazel RN [facility] Clinical Communication Start: 05-24-2024 End: 05-24-2024 Patient encounter [facility] Start: 05-13-2024 End: 05-13-2024 Patient encounter procedure Enriqueta DURAND -[facility] Work Phone: Start: 05-13-2024 End: 05-13-2024 ambulatory Moshe Key Facility:[facility] Start: 05-04-2024 End: 05-04-2024 Patient encounter procedure Moshe Key MD Work Phone: [facility] Comment on above: Medicare annual well ness visit, subsequent (Primary Dx); Primary hypertension; Gastroesophageal reflux disease without esophagitis; Hereditary hemochromatosis (HCC); Acquired hypothyroidism; Type 2 diabetes mellitus without complication, without long-term current use of insulin (CMS/HCC) (HCC); Pure hypercholesterolemia; Immunization due Start: 05-04-2024 End: 05-04-2024 ambulatory MOSHESPARKLE KEY [facility] Start: 05-04-2024 End: 05-04-2024 Encounter for general adult medical examination without abnormal findings MOSHE YESI [facility] Start: 05-01-2024 End: 05-03-2024 Refill Sedrick Bridenthal ROOF TILE LAYER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 Work Phone: [facility] Comment on above: Primary hypertension Start: 04-16-2024 Encounter for other preprocedural examination [facility] Start: 04-15-2024 End: 04-15-2024 ambulatory Moshe Yesi Facility:[facility] Start: 03-29-2024 End: 03-30-2024 ambulatory [facility] Facility:[facility] Start: 03-29-2024 ambulatory [facility] Facility:[facility] Start: 03-25-2024 End: 03-25-2024 Refill Moshe Key MD Work Phone: [facility] Start: 03-19-2024 End: 03-19-2024 ambulatory [facility] Facility:[facility] Start: 03-09-2024 End: 03-09-2024 Office outpatient visit 15 minutes Sedrick Bridenthal ROOF TILE LAYER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 Work Phone: [facility] Comment on above: Preoperative clearan ce (Primary Dx); Type 2 diabetes mellitus without complication, without long-term current use of insulin (CMS/HCC) (HCC); Primary hypertension Start: 03-09-2024 End: 03-09-2024 Office outpatient visit 25 minutes Sedrick Bridenthal ROOF TILE LAYER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 Work Phone: [facility] Comment on above: Preoperative clearan ce (Primary Dx); Type 2 diabetes mellitus without complication, without long-term current use of insulin (CMS/HCC) (HCC); Primary hypertension Start: 03-09-2024 End: 03-09-2024 Preoperative state Sedrick Bridenthal ROOF TILE LAYER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 Work Phone: [facility] Work Phone: Start: 03-09-2024 End: 03-09-[facility] Start: 03-09-2024 End: 03-09-2024 Encounter for other preprocedural examination [facility] Start: 02-26-2024 End: 02-26-2024 [facility] Start: 02-23-2024 End: 02-23-2024 Subsequent hospital visit by physician 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 ROOF TILE LAYER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 Work Phone: [facility] Comment on above: Encounter for screen ing mammogram for malignant neoplasm of breast Start: 02-23-2024 End: 02-23-2024 ambulatory [facility] Start: 02-16-2024 End: 02-16-2024 ambulatory [facility] Facility:[facility] Start: 02-13-2024 End: 02-13-2024 Telephone encounter Sedrick Karriechristina ROOF TILE LAYER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 Work Phone: [facility] Comment on above: Results Start: 02-12-2024 End: 02-12-2024 Subsequent hospital visit by physician 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 ROOF TILE LAYER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 Work Phone: [facility] Non-Invasive Cardiology Comment on above: Murmur, cardiac Start: 02-12-2024 End: 02-12-2024 [facility] Start: 02-12-2024 End: 02-12-2024 ambulatory MOSHE KEY [facility] Start: 02-09-2024 End: 02-09-2024 Subsequent hospital visit by physician 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 ROOF TILE LAYER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 Work Phone: [facility] Comment on above: History of tobacco u se Start: 02-09-2024 End: [facility]: 02-05-[facility]24 End: 02-05-2024 ambulatory Israel Clarence Facility:[facility] Start: 01-21-2024 End: 01-21-2024 Office outpatient visit 25 minutes 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 ROOF TILE LAYER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 Work Phone: [facility] Comment on above: Type 2 diabetes willard itus without complication, without long- term current use of insulin ([facility]/HCC) (HCC) (Primary Dx); Hypothyroidism, unspecified type; Degenerative disc disease, lumbar; Iron deficiency anemia, unspecified iron deficiency anemia type; Primary hypertension; History of tobacco use; Encounter for screening mammogram for malignant neoplasm of breast; Murmur, cardiac; Bilateral foot pain Start: 01-21-2024 End: 01-21-2024 ambulatory SEDRICK HEMPHILL [facility] Start: 01-16-2024 End: 01-16-2024 ambulatory No Primary Care Physician Facility[place] [place] Start: 01-15-2024 End: 01-16-2024 Telephone encounter 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 ROOF TILE LAYER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 Work Phone: [facility] Comment on above: Results Start: 01-14-2024 End: 01-14-2024 ambulatory Start: 12-26-2023 End: 12-29-2023 Refill 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 ROOF TILE LAYER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 Work Phone: [facility] Comment on above: Swelling of both low er extremities Start: 12-24-2023 End: 12-24-2023 Telephone encounter 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 ROOF TILE LAYER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 Work Phone: [facility] Comment on above: Results Start: 12-17-2023 End: 12-17-2023 Subsequent hospital visit by physician 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 ROOF TILE LAYER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 Work Phone: [facility] Radiology Comment on above: Chronic left-sided l ow back pain without sciatica Start: 12-17-2023 End: 12-17-2023 ambulatory Start: 12-10-2023 End: 12-15-2023 Telephone encounter 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 ROOF TILE LAYER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 Work Phone: [facility] Start: 12-09-2023 End: 12-10-2023 Vivian Key MD Work Phone: [facility] Start: 12-03-2023 End: 12-03-2023 Telephone encounter Sedrick Millerhenry ROOF TILE LAYER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 Work Phone: [facility] Comment on above: Results Start: 12-01-2023 End: 12-01-2023 Office outpatient visit 15 minutes Sedrick Yoonchristina ROOF TILE LAYER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 Work Phone: [facility] Comment on above: Left buttock pain (P rimary Dx); Bilateral foot pain; Colon cancer screening Start: 11-25-2023 End: 11-25-2023 Postop follow up visit related to original px Nadya Biro PA-C Work Phone: [facility] Comment on above: Mass of joint of rig ht wrist (Primary Dx); S/P excision of ganglion cyst Start: 10-22-2023 End: 12-10-2023 Telephone encounter Orthopedic Work Phone: [facility] Clinical Communication Comment on above: FYI Start: 10-22-2023 End: 10-22-2023 Office outpatient visit 25 minutes Sedrick Yoonchristina ROOF TILE LAYER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 Work Phone: [facility] Comment on above: Type 2 diabetes willard itus without complication, without long- term current use of insulin (CMS/HCC) (HCC) (Primary Dx); Hereditary hemochromatosis (HCC); Swelling of both lower extremities; Bilateral foot pain; Primary hypertension Start: 10-14-2023 End: 10-14-2023 Postop follow up visit related to original px Nadya Biro PA-C Work Phone: [facility] Comment on above: Mass of joint of rig ht wrist; S/P excision of ganglion cyst Start: 09-16-2023 End: 09-16-2023 Postop follow up visit related to original px Nadya Biro PA-C Work Phone: [facility] Comment on above: S/P excision of gang lion cyst (Primary Dx); Mass of joint of right wrist Start: 09-04-2023 ambulatory Iris Morales RN [facility] Clinical Communication Start: 09-04-2023 Patient encounter procedure Iris campbell RN [facility] Clinical Communication Start: 09-04-2023 End: 09-04-2023 Office outpatient visit 10 minutes Sedrick Bridenthal ROOF TILE LAYER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 Work Phone: [facility] Medicine Comment on above: Visit for wound chec k (Primary Dx) Start: 09-03-2023 End: 09-03-2023 Subsequent hospital visit by physician Austin Leos MD Work Phone: [facility] Comment on above: H/O excision of mass (Primary Dx); Ganglion, right wrist Start: 08-19-2023 Telephone encounter Moshe Evans MD Work Phone: [facility] Medicine Comment on above: appt with Dr. Alvin Beltran, DPM<9>on 2:45 Start: 08-08-2023 ambulatory Nadya Sewell Work Phone: [facility] Orthopedic Surg Start: 08-05-2023 Telephone encounter Austin ruiz MD Work Phone: [facility] Comment on above: Surgery Scheduling ( Surgery Scheduling) Start: 08-05-2023 End: 08-05-2023 Office outpatient new 30 minutes Austin Leos MD Work Phone: [facility] Comment on above: Mass of joint of rig ht wrist Start: 07-24-2023 End: 07-24-2023 Office outpatient visit 25 minutes Sedrick Karrieenthal ROOF TILE LAYER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 Work Phone: [facility] Comment on above: Hereditary hemochrom atosis (HCC) (Primary Dx); Primary hypertension; Type 2 diabetes mellitus without complication, without long-term current use of insulin ([facility]/HCC) (HCC); Bilateral foot pain; Mass of joint of right wrist; Other specified hypothyroidism Start: 07-01-2023 End: 07-01-2023 Emergency department patient visit KIZZY DURAND Work Phone: [facility] Work Phone: Start: 07-01-2023 End: 07-01-2023 Patient encounter procedure KIZZY DURAND Work Phone: [facility] Work Phone: Start: 06-09-2023 Telephone encounter Moshe Evans MD Work Phone: [facility] Start: 06-05-2023 End: 06-06-2023 ambulatory SEDRICK BRIDENTHAL ROOF TILE LAYER/DRIVER WHEELCHAIR Facility:[facility] Start: 06-05-2023 End: 06-05-2023 Patient encounter procedure SEDRICK BRIDENTHAL ROOF TILE LAYER/DRIVER WHEELCHAIR [facility] Start: 06-04-2023 End: 06-04-2023 Office outpatient visit 15 minutes Sedrcik Bridenthal ROOF TILE LAYER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 Work Phone: [facility] Comment on above: Mass of joint of rig ht wrist (Primary Dx) Start: 04-23-2023 End: 04-23-2023 Assay of hemosiderin, quant Sedrick Bridenthal ROOF TILE LAYER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 Work Phone: [facility] Work Phone: Start: 04-23-2023 End: 04-23-2023 Patient encounter procedure Sedrick Bridenthal ROOF TILE LAYER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 Work Phone: [facility] Comment on above: Routine general medi luly examination at health care facility (Primary Dx); Type 2 diabetes mellitus without complication, without long-term current use of insulin (CMS/HCC) (HCC); Primary hypertension; Hereditary hemochromatosis (HCC); Hypothyroidism, unspecified type; Immunization due Start: 04-02-2023 End: 04-02-2023 Office outpatient new 45 minutes 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 ROOF TILE LAYER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 Work Phone: [facility] Comment on above: Type 2 diabetes willard itus without complication, without long- term current use of insulin (CMS/HCC) (HCC) (Primary Dx); Hereditary hemochromatosis (HCC); Primary hypertension Start: 03-21-2023 Telephone encounter Sedrickdony buchanan ROOF TILE LAYER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 Work Phone: [facility] Comment on above: New Patient Procedures Date Procedure Procedure Detail Performing Clinician Start: 08-30-2024 MRI of cervical spine Severiano Key MD Work Phone: Start: 08-05-2024 Lipid 1995 panel - S rosendo or Plasma Jessica Smith ROOF TILE LAYER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 Work Phone: Start: 07-30-2024 X-ray of cervical spine Dr. Moshe Key MD Work Phone: Start: 07-05-2024 Lipid 1995 panel - S rosendo or Plasma Sedrick Colin ROOF TILE LAYER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 Work Phone: Start: 07-02-2024 X-ray of lumbar [...] 03-06-2024 Adult depression screening assessment 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 ROOF TILE LAYER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 Work Phone: Start: 02-23-2024 End: 02-23-2024 Screening digital breast tomosynthesis bi Sedrick Milleral ROOF TILE LAYER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 Work Phone: Start: 02-12-2024 Echo tthrc r-t 2d w/wom-mode compl spec&colr d Sedrick Milleral ROOF TILE LAYER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 Work Phone: Start: 02-12-2024 Thyrotropin [Units/volume] in Serum or Plasma Sedrick Karrieenthal ROOF TILE LAYER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 Work Phone: Start: 01-14-2024 Thyrotropin [Units/volume] in Serum or Plasma Sedrick Karrieenthal ROOF TILE LAYER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 Work Phone: Start: 08-05-2023 Colonoscopy Austin wolfe MD Work Phone: Start: 05-07-2023 Lipid 1996 panel - S rosendo or Plasma Sedrick Karrieenthal ROOF TILE LAYER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 Work Phone: Start: 05-07-2023 Thyrotropin [Units/volume] in Serum or Plasma Sedrick Karrieenthal ROOF TILE LAYER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 Work Phone: Start: 04-23-2023 Adult depression screening assessment Sedrickray Yoonenthal ROOF TILE LAYER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 Work Phone: Start: 04-02-2023 Adult depression screening assessment Sedrickray Milleral ROOF TILE LAYER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 Work Phone: Start: 02-12-2023 Mammography Sedrick cohenthal ROOF TILE LAYER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 Work Phone: H/O: surgery H/O excision of mass Austin Leos MD Work Phone: Plan of Treatment Date Care Activity Detail Author Start: 08-04-2033 Screening for malignant neoplasm of colon [facility] Start: 2029 RSV Immunization for Adults (1 - 1-dose 75+ series) RSV Immunization for Adults (1 - 1-dose 75+ series) [facility] Start: 01-19-2027 Screening for malignant neoplasm of colon Colorectal Cancer Screening [facility] Comment on above: Postponed from 1954 (Other System Reasons) Start: 12-04-2026 Screening for malignant neoplasm of colon FIT-DNA [facility] Start: 04-23-2026 Screening for malignant neoplasm of colon Colorectal Cancer Screening [facility] Comment on above: Postponed from 1954 (Other Patient Reasons) Start: 08-05-2025 Lipid panel Lipid Panel [facility] Start: 07-05-2025 Lipid panel Lipid Panel [facility] Start: 06-03-2025 Lipid panel Lipid Panel [facility] Start: 06-03-2025 Thyroid stimulating hormone measurement TSH Level [facility] Start: 05-05-2025 End: 05-05-2025 Patient encounter procedure 05/05/2025 10:20 AM EST Office Visit [facility] [address] [place] [address] 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, ROOF TILE LAYER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 [address] [place] [address] [facility] Start: 05-04-2025 Diabetes: Estimated Glomerular Filtration Rate for Kidney Health Diabetes: Estimated Glomerular Filtration Rate for Kidney Health [facility] Start: 05-04-2025 Hemoglobin A1c measurement Diabetes: Hemoglobin A1C [facility] Start: 05-04-2025 Lipid panel Lipid Panel [facility] Start: 05-04-2025 Preventive dental service Diabetes: Dental Exam [facility] Comment on above: Postponed from 04/23/2023 (Patient Refus ed) Start: 05-04-2025 Thyroid stimulating hormone measurement TSH Level [facility] Start: 05-03-2025 Depression Screening Depression Screening [facility] Start: 03-09-2025 Diabetic foot examination Diabetes: Foot Exam [facility] Start: 03-06-2025 Depression Screening Depression Screening [facility] Start: 02-22-2025 Screening for malignant neoplasm of breast Mammogram [facility] Start: 02-14-2025 Glaucoma screening Diabetes: Retinopathy Screening [facility] Start: 02-11-2025 Thyroid stimulating hormone measurement TSH Level [facility] Start: 02-08-2025 Screening for malignant neoplasm of lung Lung Cancer Screening [facility] Start: 01-24-2025 Influenza vaccination Influenza Vaccine (#1) [facility] Start: 01-20-2025 Diabetes: Urine Albumin-Creatinine Ratio for Kidney Health Diabetes: Urine Albumin-Creatinine Ratio for Kidney Health [facility] Start: 01-13-2025 Thyroid stimulating hormone measurement TSH Level [facility] Start: 10-21-2024 Diabetes: Estimated Glomerular Filtration Rate for Kidney Health Diabetes: Estimated Glomerular Filtration Rate for Kidney Health [facility] Start: 08-26-2024 Hemoglobin A1c measurement Diabetes: Hemoglobin A1C [facility] Start: 08-22-2024 COVID-19 Vaccine ( season) COVID-19 Vaccine () [facility] Start: 08-05-2024 End: 08-05-2024 Clinical Support 08/05/2024 9:30 AM EDT Clinical Support [facility] [address] [place] [address] [facility] Start: 07-28-2024 Diabetes: Estimated Glomerular Filtration Rate for Kidney Health Diabetes: Estimated Glomerular Filtration Rate for Kidney Health [facility] Start: 07-05-2024 End: 07-05-2024 Clinical Support 07/05/2024 9:30 AM EST Clinical Support [facility] [address] [place] [address] [address] [facility] Start: 06-28-2024 End: 06-28-2024 Patient encounter procedure 06/28/2024 9:20 AM EST Office Visit [facility] [address] [place] [address] 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, ROOF TILE LAYER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 [address] [place] [address] [facility] Start: 06-24-2024 COVID-19 Vaccine () COVID-19 Vaccine () [facility] Start: 06-03-2024 End: 06-03-2024 Clinical Support 06/03/2024 9:30 AM EST Clinical Support [facility] [place] [address] [facility] [place] [address] [facility] Start: 05-26-2024 Medicare [facility] Annual Wellness Visit Medicare Advantage Annual Wellness Visit [facility] Start: 05-25-2024 End: 05-25-2025 XR Knee - right 4 Views XR knee 4+ views right Imaging Routine Acute pain of right knee Expected: 05/25/2024, Expires: 05/25/2025 [facility] Work Phone: Comment on above: Expected: 05/25/2024, Expires: Start: 05-25-2024 End: 05-25-2024 Patient encounter procedure 05/25/2024 10:40 AM EST Office Visit [facility] [place] [address] [facility] [place] [address] 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, ROOF TILE LAYER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 [address] [facility] [place] [address] [facility] Start: 05-07-2024 Hemoglobin A1c measurement Diabetes: Hemoglobin A1C [facility] Start: 05-07-2024 Lipid panel Lipid Panel [facility] Start: 05-07-2024 Thyroid stimulating hormone measurement TSH Level [facility] Start: 05-04-2024 End: 05-04-2025 CBC W Auto Differential panel - Blood CBC auto differential Lab Routine Hereditary hemochromatosis (HCC) Expected: 05/04/2024 (Approximate), Expires: 05/04/2025 [facility] Comment on above: Expected: 05/04/2024 (Approximate), Expi res: 05/04/2025 Start: 05-04-2024 End: 05-04-2025 Comprehensive metabolic 1998 panel - Serum or Plasma Comprehensive metabolic panel Lab Routine Type 2 diabetes mellitus without complication, without long-term current use of insulin (CMS/HCC) (HCC) Expected: 05/04/2024 (Approximate), Expires: 05/04/2025 [facility] Comment on above: Expected: 05/04/2024 (Approximate), Expi res: 05/04/2025 Start: 05-04-2024 End: 05-04-2025 Ferritin [Mass/volume] in Serum or Plasma Ferritin Lab Routine Hereditary hemochromatosis (HCC) Expected: 05/04/2024 (Approximate), Expires: 05/04/2025 [facility] Comment on above: Expected: 05/04/2024 (Approximate), Expi res: 05/04/2025 Start: 05-04-2024 End: 05-04-2025 Hemoglobin A1c measurement Hemoglobin A1c Lab Routine Type 2 diabetes mellitus without complication, without long-term current use of insulin (CMS/HCC) (HCC) Expected: 05/04/2024 (Approximate), Expires: 05/04/2025 [facility] Comment on above: Expected: 05/04/2024 (Approximate), Expi res: 05/04/2025 Start: 05-04-2024 End: 05-04-2025 Iron and Iron binding capacity panel - Serum or Plasma Iron and TIBC Lab Routine Hereditary hemochromatosis (HCC) Expected: 05/04/2024 (Approximate), Expires: 05/04/2025 [facility] Comment on above: Expected: 05/04/2024 (Approximate), Expi res: 05/04/2025 Start: 05-04-2024 End: 05-04-2025 Lipid 1996 panel - Serum or Plasma Lipid panel Lab Routine Pure hypercholesterolemia Expected: 05/04/2024 (Approximate), Expires: 05/04/2025 [facility] Work Phone: Comment on above: Expected: 05/04/2024 (Approximate), Expi res: 05/04/2025 Start: 05-04-2024 End: 05-04-2025 Thyrotropin [Units/volume] in Serum or Plasma TSH Lab Routine Acquired hypothyroidism Expected: 05/04/2024 (Approximate), Expires: 05/04/2025 [facility] Comment on above: Expected: 05/04/2024 (Approximate), Expi res: 05/04/2025 Start: 05-04-2024 End: 05-04-2024 Patient encounter procedure [facility] Start: 04-27-2024 Medicare Advantage Annual Wellness Visit Medicare Advantage Annual Wellness Visit [facility] Comment on above: Postponed from 05/26/2023 (Other System Reasons) Start: 04-23-2024 Depression Screening Depression Screening [facility] Start: 04-23-2024 Diabetic foot examination Diabetes: Foot Exam [facility] Start: 04-23-2024 Screening for osteoporosis Bone Density Scan [facility] Comment on above: Postponed from 1954 (Patient Refus ed) Start: 04-23-2024 Zoster Vaccines (1 of 2) Zoster Vaccines (1 of 2) [facility] Comment on above: Postponed from 2004 (Patient Refus ed) Start: 04-23-2024 Zoster Vaccines (2 of 2) Zoster Vaccines (2 of 2) [facility] [facility] Comment on above: Postponed from 02/19/2022 (Patient Refus ed) Start: 04-15-2024 End: 04-15-2024 Patient encounter procedure [facility] Start: 04-02-2024 COVID-19 Vaccine (#1) COVID-19 Vaccine (#1) [facility] Comment on above: Postponed from 01/14/1956 (Patient Refus ed) Start: 04-02-2024 COVID-19 Vaccine ( season) COVID-19 Vaccine ( season) [facility] Comment on above: Postponed from 01/24/2023 (Patient Refus ed) Start: 04-02-2024 Depression Screening Depression Screening [facility] Start: 04-02-2024 DTaP/Tdap/Td Vaccines (1 - Tdap) DTaP/Tdap/Td Vaccines (1 - Tdap) [facility] Comment on above: Postponed from 1973 (Patient Refus ed) Start: 04-02-2024 Hepatitis C screening Hepatitis C Screening [facility] Comment on above: Postponed from 1972 (Patient Refus ed) Start: 03-12-2024 End: 03-12-2024 Clinical Support 03/12/2024 9:00 AM EDT Clinical Support [address] [address] [facility] Start: 02-23-2024 End: 02-23-2024 Patient encounter procedure 02/23/2024 11:40 AM EDT Appointment [facility] [address] [place] [address] 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, [employer]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 [address] [place] [address] [facility] Start: 02-21-2024 End: 03-22-2025 DBT Breast - bilateral screening Bilateral screening mammogram with tomosynthesis Imaging Routine Encounter for screening mammogram for malignant neoplasm of breast Expected: 02/21/2024, Expires: 03/22/2025 [facility] Comment on above: Expected: 02/21/2024, Expires: Start: 02-15-2024 Glaucoma screening Diabetes: Retinopathy Screening [facility] Start: 02-15-2024 End: 01-14-2025 Thyrotropin [Units/volume] in Serum or Plasma TSH Lab Routine Hypothyroidism, unspecified type Expected: 02/15/2024 (Approximate), Expires: 01/14/2025 [facility] Work Phone: Comment on above: Expected: 02/15/2024 (Approximate), Expi res: 01/14/2025 Start: 02-13-2024 Screening for malignant neoplasm of breast Mammogram [facility] Start: 02-12-2024 End: 02-12-2024 Clinical Support [facility] Start: 01-25-2024 COVID-19 Vaccine ( season) COVID-19 Vaccine ( season) [facility] Start: 01-25-2024 Influenza vaccination [facility] Start: 01-21-2024 End: 01-19-2025 CT Chest for screening WO contrast CT lung screening low dose Imaging Routine History of tobacco use Expected: 01/21/2024, Expires: 01/19/2025 [facility] Comment on above: Expected: 01/21/2024, Expires: Start: 01-21-2024 End: 01-19-2025 Microalbumin/Creatinin e panel in random Urine Microalbumin / creatinine, urine ratio Lab Routine Type 2 diabetes mellitus without complication, without long-term current use of insulin ([facility]/HCC) (HCC) Expected: 01/21/2024 (Approximate), Expires: 01/19/2025 [facility] Work Phone: Comment on above: Expected: 01/21/2024 (Approximate), Expi res: 01/19/2025 Start: 01-21-2024 End: 01-20-2026 US Heart Transthoracic Transthoracic echocardiogram (TTE) complete with contrast, bubble, strain, and 3D PRN CV Echocardiography Routine Murmur, cardiac Expected: 01/21/2024 (Approximate), Expires: 01/20/2026 [facility] Comment on above: Expected: 01/21/2024 (Approximate), Expi res: 01/20/2026 Start: 01-21-2024 End: 01-21-2024 Patient encounter procedure 01/21/2024 10:20 AM EDT Office Visit [facility] [address] [place] [address] 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, [employer]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 [address] [place], [place] [id number] [facility] Start: 01-14-2024 End: 12-02-2024 CBC W Auto Differential panel - Blood CBC auto differential Lab Routine Iron deficiency anemia, unspecified iron deficiency anemia type Expected: 01/14/2024 (Approximate), Expires: 12/02/2024 [facility] Work Phone: Comment on above: Expected: 01/14/2024 (Approximate), Expi res: 12/02/2024 Start: 01-14-2024 End: 12-02-2024 Cobalamin (Vitamin B12) [Mass/volume] in Serum or Plasma Vitamin B12 Lab Routine Anemia, unspecified type Expected: 01/14/2024 (Approximate), Expires: 12/02/2024 [facility] [employer] Comment on above: Expected: 01/14/2024 (Approximate), Expi res: 12/02/2024 Start: 01-14-2024 End: 12-02-2024 Ferritin [Mass/volume] in Serum or Plasma Ferritin Lab Routine Iron deficiency anemia, unspecified iron deficiency anemia type Expected: 01/14/2024 (Approximate), Expires: 12/02/2024 [facility] Comment on above: Expected: 01/14/2024 (Approximate), Expi res: 12/02/2024 Start: 01-14-2024 End: 12-02-2024 Folate [Mass/volume] in Serum or Plasma Folate Lab Routine Anemia, unspecified type Expected: 01/14/2024 (Approximate), Expires: 12/02/2024 [facility] Comment on above: Expected: 01/14/2024 (Approximate), Expi res: 12/02/2024 Start: 01-14-2024 End: 12-02-2024 Iron and Iron binding capacity panel - Serum or Plasma Iron and TIBC Lab Routine Iron deficiency anemia, unspecified iron deficiency anemia type Expected: 01/14/2024 (Approximate), Expires: 12/02/2024 [facility] Comment on above: Expected: 01/14/2024 (Approximate), Expi res: 12/02/2024 Start: 01-14-2024 End: 12-02-2024 Thyrotropin [Units/volume] in Serum or Plasma TSH Lab Routine Anemia, unspecified type Hypothyroidism, unspecified type Expected: 01/14/2024 (Approximate), Expires: 12/02/2024 [facility] Comment on above: Expected: 01/14/2024 (Approximate), Expi res: 12/02/2024 Start: 01-14-2024 End: 12-02-2024 Transferrin [Mass/volume] in Serum or Plasma Transferrin Lab Routine Iron deficiency anemia, unspecified iron deficiency anemia type Expected: 01/14/2024 (Approximate), Expires: 12/02/2024 [facility] Comment on above: Expected: 01/14/2024 (Approximate), Expi res: 12/02/2024 Start: 01-14-2024 End: 01-14-2024 Clinical Support 01/14/2024 10:00 AM EDT Clinical Support [facility] [address] [place] [address] [place] [address] [facility] Start: 12-24-2023 End: 12-23-2024 25-hydroxyvitamin D3 [Mass/volume] in Serum or Plasma Vitamin D Deficiency Screening (Vit D 25) Lab Routine Osteopenia of lumbar spine Expected: 12/24/2023 (Approximate), Expires: 12/23/2024 [facility] Work Phone: Comment on above: Expected: 12/24/2023 (Approximate), Expi res: 12/23/2024 Start: 12-24-2023 End: 12-23-2024 DXA Skeletal system.axial Views for bone density DEXA bone density axial skeleton Imaging Routine Osteopenia of lumbar spine Expected: 12/24/2023, Expires: 12/23/2024 [facility] [employer] Comment on above: Expected: 12/24/2023, Expires: Start: 12-15-2023 End: 12-14-2024 XR Lumbar spine Views W flexion and W extension XR lumbar spine 4-5 view Imaging Routine Chronic left-sided low back pain without sciatica Expected: 12/15/2023, Expires: 12/14/2024 [facility] [employer] Work Phone: Comment on above: Expected: 12/15/2023, Expires: Start: 12-06-2023 Screening for malignant neoplasm of colon Colorectal Cancer Screening [facility] Start: 12-01-2023 End: 12-01-2023 Clinical Support 12/01/2023 9:00 AM EDT Clinical Support [facility] [address] [facility] [place] [address] [facility] Start: 11-25-2023 End: 11-25-2023 Patient encounter procedure 11/25/2023 1:00 PM EDT Office Visit [facility] [address] [place] [phone] Nadya Harkins PA-C [address] [place] [address] [address] [place] [address] [facility] Start: 11-23-2023 Influenza vaccination Influenza Vaccine (#1) [facility] Comment on above: Postponed from 01/24/2023 (Patient Refus ed) Start: 10-29-2023 Screening for malignant neoplasm of colon [facility] Start: 10-22-2023 End: 10-21-2024 CBC W Auto Differential panel - Blood CBC auto differential Lab Routine Hereditary hemochromatosis (HCC) Expected: 10/22/2023 (Approximate), Expires: 10/21/2024 [facility] Work Phone: Comment on above: Expected: 10/22/2023 (Approximate), Expi res: 10/21/2024 Start: 10-22-2023 End: 10-21-2024 Comprehensive metabolic 1998 panel - Serum or Plasma Comprehensive metabolic panel Lab Routine Type 2 diabetes mellitus without complication, without long-term current use of insulin (CMS/HCC) (HCC) Swelling of both lower extremities Expected: 10/22/2023 (Approximate), Expires: 10/21/2024 [facility] Comment on above: Expected: 10/22/2023 (Approximate), Expi res: 10/21/2024 Start: 10-22-2023 End: 10-21-2024 Ferritin [Mass/volume] in Serum or Plasma Ferritin Lab Routine Hereditary hemochromatosis (HCC) Expected: 10/22/2023 (Approximate), Expires: 10/21/2024 [facility] Comment on above: Expected: 10/22/2023 (Approximate), Expi res: 10/21/2024 Start: 10-22-2023 End: 10-21-2024 Iron and Iron binding capacity panel - Serum or Plasma Iron and TIBC Lab Routine Hereditary hemochromatosis (HCC) Expected: 10/22/2023 (Approximate), Expires: 10/21/2024 [facility] Comment on above: Expected: 10/22/2023 (Approximate), Expi res: 10/21/2024 Start: 10-22-2023 RSV Immunization aged 60 or older (1 - 1-dose 60+ series) RSV Immunization aged 60 or older (1 - 1-dose 60+ series) [facility] Comment on above: Postponed from 2014 (Patient Refus ed) Start: 10-22-2023 Screening for malignant neoplasm of lung Lung Cancer Screening [facility] Comment on above: Postponed from 2004 (Patient Refus ed) Start: 10-22-2023 End: 10-22-2023 Patient encounter procedure 10/22/2023 10:20 AM EDT Office Visit [facility] [address] [facility] [place] [address] [place] [address] 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, [employer]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 [address] [facility] [place] [address] [place] [address] [facility] Start: 10-14-2023 End: 10-14-2023 Patient encounter procedure 10/14/2023 1:30 PM EDT Office Visit [facility] [address] [place] [phone] Nadya Harkins PA-C [address] [facility] [address] [place], [place] [address] [facility] Start: 09-16-2023 End: 09-16-2023 Patient encounter procedure [facility] Start: 09-03-2023 End: 09-03-2023 Admission to same day surgery center 09/03/2023 9:30 AM EDT - 09/03/2023 10:30 AM EDT Surgery [facility] [address] [place] [phone] Austin Leos MD [address] [facility] [address] [place], [place] [id number] RIGHT VOLAR RADIAL WRIST MASS EXCISION [99270 (CPT )] [facility] Comment on above: RIGHT VOLAR RADIAL WRIST MASS EXCISION [ 79591 (CPT )] Start: 09-03-2023 Subsequent hospital visit by physician 09/03/2023 9:30 AM EDT Hospital Encounter [facility] [address] [place] [phone] Austin Leos MD [address] [facility] [address] [place] [address] [facility] Start: 09-03-2023 End: 09-03-2023 Excision ganglion wrist dorsal/volar primary [facility] Operating Room Start: 08-27-2023 End: 08-27-2023 Admission to establishment 08/27/2023 10:00 AM EDT Pre-Admission Testing [facility] Pre-Admit Testing [address] [place] [phone] [facility] Pre-Admit Testing Start: 08-05-2023 End: 08-05-2023 Patient encounter procedure 08/05/2023 1:00 PM EDT Office Visit [facility] [address] [place] [phone] Austin Leos MD [address] [facility] [address] [place] [address] [facility] Start: 07-24-2023 End: 07-23-2024 CBC W Auto Differential panel - Blood CBC auto differential Lab Routine Hereditary hemochromatosis (HCC) Expected: 07/24/2023 (Approximate), Expires: 07/23/2024 [facility] Work Phone: Comment on above: Expected: 07/24/2023 (Approximate), Expi res: 07/23/2024 Start: 07-24-2023 End: 07-23-2024 Ferritin [Mass/volume] in Serum or Plasma Ferritin Lab Routine Hereditary hemochromatosis (HCC) Expected: 07/24/2023 (Approximate), Expires: 07/23/2024 [facility] Comment on above: Expected: 07/24/2023 (Approximate), Expi res: 07/23/2024 Start: 07-24-2023 End: 07-23-2024 Iron and Iron binding capacity panel - Serum or Plasma Iron and TIBC Lab Routine Hereditary hemochromatosis (HCC) Expected: 07/24/2023 (Approximate), Expires: 07/23/2024 [facility] Comment on above: Expected: 07/24/2023 (Approximate), Expi res: 07/23/2024 Start: 07-24-2023 End: 07-24-2023 Patient encounter procedure 07/24/2023 10:00 AM EST Office Visit [facility] [address] [place] [place] [address] 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, [employer]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 [address] [place] [address] [facility] Start: 07-01-2023 [facility] Start: 06-04-2023 End: 06-04-2024 XR Wrist - right 3 Views XR wrist 3+ views right Imaging Routine Mass of joint of right wrist Expected: 06/04/2023, Expires: 06/04/2024 [facility] Work Phone: Comment on above: Expected: 06/04/2023, Expires: Start: 05-26-2023 Medicare Advantage Annual Wellness Visit Medicare Advantage Annual Wellness Visit [facility] Start: 05-07-2023 End: 05-07-2023 Clinical Support 05/07/2023 10:00 AM EST Clinical Support [facility] [address] [place] [address] [facility] Start: 04-23-2023 End: 04-23-2024 CBC panel - Blood by Automated count CBC Lab Routine Hereditary hemochromatosis (HCC) Expected: 04/23/2023 (Approximate), Expires: 04/23/2024 [facility] [employer] Comment on above: Expected: 04/23/2023 (Approximate), Expi res: 04/23/2024 Start: 04-23-2023 End: 04-23-2024 Ferritin [Mass/volume] in Serum or Plasma Ferritin Lab Routine Hereditary hemochromatosis (HCC) Expected: 04/23/2023 (Approximate), Expires: 04/23/2024 [facility] Comment on above: Expected: 04/23/2023 (Approximate), Expi res: 04/23/2024 Start: 04-23-2023 End: 04-23-2024 Hemoglobin A1c measurement Hemoglobin A1c Lab Routine Type 2 diabetes mellitus without complication, without long-term current use of insulin (CMS/HCC) (HCC) Expected: 04/23/2023 (Approximate), Expires: 04/23/2024 [facility] Comment on above: Expected: 04/23/2023 (Approximate), Expi res: 04/23/2024 Start: 04-23-2023 End: 04-23-2024 Iron and Iron binding capacity panel - Serum or Plasma Iron and TIBC Lab Routine Hereditary hemochromatosis (HCC) Expected: 04/23/2023 (Approximate), Expires: 04/23/2024 [facility] Work Phone: Comment on above: Expected: 04/23/2023 (Approximate), Expi res: 04/23/2024 Start: 04-23-2023 End: 04-23-2024 Lipid 1996 panel - Serum or Plasma Lipid panel Lab Routine Type 2 diabetes mellitus without complication, without long-term current use of insulin (CMS/HCC) (HCC) Expected: 04/23/2023 (Approximate), Expires: 04/23/2024 [facility] Comment on above: Expected: 04/23/2023 (Approximate), Expi res: 04/23/2024 Start: 04-23-2023 Preventive dental service Diabetes: Dental Exam [facility] Start: 04-23-2023 End: 04-23-2024 Thyrotropin [Units/volume] in Serum or Plasma TSH Lab Routine Hypothyroidism, unspecified type Expected: 04/23/2023 (Approximate), Expires: 04/23/2024 [facility] Comment on above: Expected: 04/23/2023 (Approximate), Expi res: 04/23/2024 Start: 04-23-2023 End: 04-23-2023 Patient encounter procedure 04/23/2023 10:00 AM EST Office Visit [facility] [address] [facility] [place] [address] 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, [employer]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 [address] [place] [address] [facility] Start: 04-02-2023 End: 04-02-2023 Patient encounter procedure 04/02/2023 11:00 AM EST Office Visit [facility] [address] [facility] [place] [address] PaulSedrick figueroa, ROO[employer]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 [address] [place] [address] [facility] Start: 01-24-2023 Influenza vaccination Influenza Vaccine (#1) [facility] Start: 02-19-2022 Zoster Vaccines (2 of 2) Zoster Vaccines (2 of 2) [facility] Start: 2019 Pneumococcal Vaccine: 65+ Years (1 - PCV) Pneumococcal Vaccine: 65+ Years (1 - PCV) [facility] Start: 2014 RSV Immunization aged 60 or older (1 - 1-dose 60+ series) RSV Immunization aged 60 or older (1 - 1-dose 60+ series) [facility] Start: 2014 RSV Immunization for Adults (1 - Risk 60-74 years 1-dose series) RSV Immunization for Adults (1 - Risk 60-74 years 1-dose series) [facility] Start: 2004 Screening for malignant neoplasm of lung Lung Cancer Screening [facility] Start: 2004 Zoster Vaccines (1 of 2) Zoster Vaccines (1 of 2) [facility] Start: 1994 Screening for malignant neoplasm of breast Mammogram [facility] Start: 1973 DTaP/Tdap/Td Vaccines (1 - Tdap) DTaP/Tdap/Td Vaccines (1 - Tdap) [facility] Start: 1973 Hepatitis A Vaccines (1 of 2 - Risk 2-dose series) Hepatitis A Vaccines (1 of 2 - Risk 2-dose series) [facility] Start: 1972 Diabetes: Urine Albumin-Creatinine Ratio for Kidney Health Diabetes: Urine Albumin-Creatinine Ratio for Kidney Health [facility] Start: 1972 Hepatitis C screening Hepatitis C Screening [facility] Start: 1966 Depression Screening Depression Screening [facility] Start: 1964 Diabetic foot examination Diabetes: Foot Exam [facility] Start: 1964 Glaucoma screening Diabetes: Retinopathy Screening [facility] Start: 1964 Preventive dental service Diabetes: Dental Exam [facility] Start: 1960 Pneumococcal Vaccine: 65+ Years (1 - PCV) Pneumococcal Vaccine: 65+ Years (1 - PCV) [facility] Start: 01-14-1955 COVID-19 Vaccine (#1) COVID-19 Vaccine (#1) [facility] Start: 1954 DISCONTINUED Medicare Advantage Annual Wellness Visit (AWV) DISCONTINUED Medicare Advantage Annual Wellness Visit (AWV) [facility] Start: 1954 Hemoglobin A1c measurement Diabetes: Hemoglobin A1C [facility] Start: 1954 Lipid panel Lipid Panel [facility] Start: 1954 Medicare Advantage Annual Wellness Visit (AWV) Medicare Advantage Annual Wellness Visit (AWV) [facility] Start: 1954 Screening for malignant neoplasm of colon [facility] Start: 1954 Screening for osteoporosis Bone Density Scan [facility] Start: 1954 Thyroid stimulating hormone measurement TSH Level [facility] [employer] Cologuard colon canc er screening Cologuard colon cancer screening Lab Routine Colon cancer screening Ordered: 12/01/2023 [employer] [employer] Work Phone: Comment on above: Ordered: 12/01/2023 End: 02-09-2024 CT Chest for screening WO contrast [facility] [employer] Work Phone: Comment on above: Once for 1 Occurrences starting 02/09/20 until 02/09/2024 Patient Education ED Vertigo, Un specified ED Gastroenteritis, Viral (Adult) [facility] Work Phone: Patient referral [facility] Work Phone: Tissue exam [facility] [employer] Sy stem Work Phone: Comment on above: Release Upon Ordering for 1 Occurrences starting 09/03/2023 XR Knee GE 4 Views [facility] End: 12-17-2023 XR Lumbar spine Views W flexion and W extension [facility] [employer] Work Phone: Comment on above: Once for 1 Occurrences starting 12/17/19 24 until 12/17/2023 [facility] Immunizations Immunization Date Immunization Notes Care Provider Carlos [facility] 05-04-2024 diphtheria, tetanus toxoids and acellular pertussis vaccine, unspecified formulation Moshe Key MD Work Phone: [facility] 05-04-2024 zoster vaccine-recombinant adjuvanted (Shingrix) 50 MCG/0.5ML vaccine Moshe Key MD Work Phone: [facility] 02-23-2024 Pfizer SARS-CoV-2 Vaccination Sedrick Bridenthal 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 Work Phone: [facility] 01-12-2024 influenza virus vacc ine, unspecified formulation Sedrick Bridenthal 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 Work Phone: [facility] 01-12-2024 influenza, high dose seasonal, preservative-free Sedrick Bridenthal [employer]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 Work Phone: [facility] 04-23-2023 Pneumococcal Conjuga te PCV20, Pf (Prevnar 20) Sedrick Bridenthal [employer]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 Work Phone: [facility] 03-01-2022 Moderna SARS-CoV-2 Vaccination Sedrick Bridenthal [employer]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 Work Phone: [facility] 02-25-2022 Influenza, Seasonal, Quadrivalent, Adjuvanted Sedrick Bridenthal [employer]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 Work Phone: [facility] 02-25-2022 influenza virus vacc ine, unspecified formulation Sedrick Bridenthal [employer]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 Work Phone: [facility] 12-25-2021 zoster vaccine recombinant Sedrick Bridenthal [employer]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 Work Phone: [facility] 04-12-2021 Moderna SARS-CoV-2 Vaccination Sedrick Bridenthal [employer]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 Work Phone: [facility] 03-16-2021 Influenza, Seasonal, Quadrivalent, Adjuvanted Sedrick Bridenthal [employer]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 Work Phone: [facility] 09-04-2020 Moderna SARS-CoV-2 Vaccination Sedrick Bridenthal [employer]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 Work Phone: [facility] 08-07-2020 Moderna SARS-CoV-2 Vaccination Sedrick Bridenthal [employer]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 Work Phone: [facility] 03-17-2009 influenza virus vacc ine, whole virus Sedrick Bridenthal [employer]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 Work Phone: [facility] 03-17-2009 influenza virus vacc ine, unspecified formulation Sedrick Bridenthal [employer]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 Work Phone: [facility] 05-30-2003 hepatitis B vaccine, adult dosage Sedrick Bridenthal [employer]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 Work Phone: [facility] 12-20-2002 hepatitis B vaccine, adult dosage Sedrick Bridenthal [employer]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 Work Phone: [facility] 11-15-2002 hepatitis B vaccine, adult dosage Sedrick Bridenthal 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 Work Phone: [facility] Payers Date Payer Category Payer Self-pay 2023 Private Health Insurance [id number] 2023 Medicare O [id number] 2023 Medicare [id number] 2022 Medicare [id number]. 1.13.680.2.7.3.6 [id number] 1955 Unknown [id number] 2.16.840.1.359298.3.579.2.627 1955 Unknown [id number] 2.16.840.1.001712.3.579.2.627 Private Health Insurance [facility] [id number] Unknown ANTHEM [id number] Unknown [id number] 2.16.840.1.209978.3.579.2.462 Unknown [id number] 2.16.840.1.413964.3.579.2.462 Unknown [id number] 2..840.1.045258.3.579.2.462 Unknown [id number] 2.16.840.1.467506.3.579.2.462 Unknown [id number] 2..840.1.202960.3.579.2.462 Unknown [id number] 2..840.1.193424.3.579.2.462 Unknown [id number] 2.840.1.290212.3.579.2.462 Unknown [id number] 2.840.1.009017.3.579.2.462 Unknown [id number] 2.840.1.077614.3.579.2.462 Unknown [id number] 2.840.1.040425.3.579.2.462 Unknown [id number] 2.840.1.128784.3.579.2.462 Unknown [id number] 2.840.1.995036.3.579.2.462 Unknown [id number] 2.840.1.378278.3.579.2.462 Unknown [id number] 2..840.1.940384.3.579.2.462 Unknown [id number] 2.16.840.1.012527.3.579.2.462 Unknown [id number] 2.840.1.531688.3.579.2.462 Unknown [id number] 2.16.840.1.113279.3.579.2.462 Unknown [id number] 2.16.840.1.750604.3.579.2.462 Unknown [id number] 2.16.840.1.418751.3.579.2.462 Unknown [id number] 2.16.840.1.604131.3.579.2.462 Unknown [id number] 2.16.840.1.132731.3.579.2.462 Unknown [id number] 2.16.840.1.341518.3.579.2.462 Unknown [id number] 2.16.840.1.274199.3.579.2.462 Unknown [id number] 2.16840.1.366910.3.579.2.462 Social History Date Type Detail Facility Start: 07-01-2023 Tobacco smoking stat [facility] Tobacco smoking consumption unknown [facility] Start: 1955 Sex Assigned At Not on file [facility] Start: 04-02-2023 End: 05-04-2024 Gender identity Not on file [facility] Start: 04-02-2023 End: 02-23-2024 Tobacco smoking status VAIS Ex-smoker [facility] Start: 05-26-1989 End: 05-26-2019 History of tobacco use Current smoker [facility] Start: 05-26-1989 End: 05-26-2019 History of tobacco use Cigarette Smoker [facility] Start: 04-02-2023 End: 05-04-2024 Cigarettes smoked current (pack per day) - Reported 1 [facility] Start: 04-02-2023 End: 02-23-2024 Tobacco use and exposure Smokeless tobacco non-user [facility] Start: 04-02-2023 End: 05-25-2024 Alcohol intake Ex-drinker (finding) [facility] Adolescent depressio n screening assessment 1 [facility] (I/We) worried wheth er (my/our) food would run out before (I/we) got money to buy more. Never true [facility] Start: 1955 Sex Assigned At Female [facility] Within the last year , have you been afraid of your partner or ex-partner? No [facility] Start: 03-21-2023 End: 09-03-2024 Sex Female (finding) [facility] Do you belong to any clubs or organizations such as advent groups, unions, fraternal or athletic groups, or school groups? Yes [facility] Are you now , , , , never or living with a partner? [facility] How often to you hav e a drink containing alcohol? Never [facility] How hard is it for y ou to pay for the very basics like food, housing, medical care, and heating Not very hard [facility] Do you feel stress - tense, restless, nervous, or anxious, or unable to sleep at night because your mind is troubled all the time - these days [OSQ] Not at all [facility] NEGATED: Highlighted rowStart: NINF History of tobacco use Passive smoker [facility] Medical Equipment Procedure Code Equipment Code Equipment [...] transitioning to prone Collagen haemostatic agent, non-antimicrobial ()[id number] FDA Start: 03-29-2024 Fusion, spine, lumbar, 360 [...] Note Reviewed chart. Refill appropriate. RX sent. [facility] 11-30-2024 Miscellaneous Notes Formattin g of this note might be different from the original. Reviewed chart. Refill appropriate. RX sent. documented in this encounter [facility] 11-10-2024 Telephone encount er Note Reviewed chart. Refill appropriate. RX sent. [facility] 11-10-2024 Miscellaneous Notes Formattin g of this note might be different from the original. Reviewed chart. Refill appropriate. RX sent. Prescription Request: Last medication check: 06/28/24 Last physical exam: 05/04/24 Next scheduled appointment: 05/05/25 Last date of refill on this medication: omeprazole 06/10/24 Furosemide 12/29/23 documented in this encounter [facility] 11-10-2024 Telephone encount er Note Prescription Request: Last medication check: 06/28/24 Last physical exam: 05/04/24 Next scheduled appointment: 05/05/25 Last date of refill on this medication: omeprazole 06/10/24 Furosemide 12/29/23 [facility] 09-22-2024 Telephone encount er Note error [facility] 09-22-2024 Telephone encount er Note S: The patient is calling the [facility] about the cholesterol B: Reviewed the [...] question Protocols used: Medication Refill and Renewal [id number] [facility] 09-22-2024 Miscellaneous Notes Formattin g of this note might be different from the original. error documented in this encounter [facility] 09-22-2024 Miscellaneous Notes Formattin g of this [...] question Protocols used: Medication Refill and Renewal [id number] documented in this encounter [facility] 09-02-2024 Telephone encount er Note Prescription Request: Rosuvastatin Calcium 10 MG Oral Tablet Fenofibrate 160 MG Oral Tablet Last medication check: 06/28/24 Last physical exam: 05/04/24 Next scheduled appointment: 05/05/25 Last date of refill on this medication Rosuvastatin - 08/06/24 (Qty 90 refill 1) Fenofibrate - 08/06/24 (qty 90 refill 1) [facility] 09-02-2024 Miscellaneous Notes Formattin g of this [...] 90 refill 1) documented in this encounter [facility] 08-05-2024 Telephone encount er Note Reviewed chart. Refill appropriate. RX sent. [facility] 08-05-2024 Miscellaneous Notes Formattin g of this note might be different from the original. Reviewed chart. Refill appropriate. RX sent. Lab draw tomorrow Prescription Request: Last medication check: 06-28-24 Last physical exam: 05-04-24 Next scheduled appointment: 05-05-25 Last date of refill on this medication 07-07-24 documented in this encounter [facility] 08-04-2024 Telephone encount er Note Lab draw tomorrow [facility] 08-04-2024 Telephone encount er Note Prescription Request: Last medication check: 06-28-24 Last physical exam: 05-04-24 Next scheduled appointment: 05-05-25 Last date of refill on this medication 07-07-24 [facility] 07-19-2024 Telephone encount er Note Prescription Request: Last medication check: 01/21/24 Last physical exam: 05/04/24 Next scheduled appointment: 05/05/25 Last date of refill on this medication Irbesartan 05/03/24, chlorthalidone 05/03/24, Atrovent 07/05/24 [facility] 07-19-2024 Miscellaneous Notes Formattin g of this note might be different from the original. Prescription Request: Last medication check: 01/21/24 Last physical exam: 05/04/24 Next scheduled appointment: 05/05/25 Last date of refill on this medication Irbesartan 05/03/24, chlorthalidone 05/03/24, Atrovent 07/05/24 documented in this encounter [facility] 07-05-2024 Telephone encount er Note Notified, no further questions. [facility] 07-05-2024 Miscellaneous Notes Formattin g of this [...] scheduled appointment: 05/05/25 documented in this encounter [facility] 07-05-2024 Telephone encount er Note Prescription sent to [facility] 07-05-2024 Telephone encount er Note Pt came [...] physical exam: 05/04/24 Next scheduled appointment: 05/05/25 [facility] 06-28-2024 Evaluation + Plan note Associ ated Problem(s): Pure hypercholesterolemia Patient scheduled for lipid check next week. Continue fenofibrate 160 mg daily and atorvastatin 20 mg daily [facility] 06-28-2024 Miscellaneous Notes Associate d Problem(s): Pure [...] (may need ultrasound) documented in this encounter [facility] 06-28-2024 Miscellaneous Notes Associate d Problem(s): Pure [...] Level of Service documented in this encounter [facility] 06-28-2024 Evaluation + Plan note Associ ated [...] and possible corticosteroid injection (may need ultrasound) [facility] 06-28-2024 History of Presen t illness Narrative [...] Date of . documented in this encounter [facility] 06-28-2024 History of Presen t illness Narrative [...] Date of . documented in this encounter [facility] 06-28-2024 Instructions ASAF Ramos CNP - 06/28/2024 9:[address] Morton about ortho specialist regarding the knee. May need ultrasound if getting injection in the knee. documented in this encounter [facility] 06-28-2024 Instructions ASAF Ramos CNP - 06/28/2024 9:[address] Morton about ortho specialist regarding the knee. May need ultrasound if getting injection in the knee. documented in this encounter [facility] 06-28-2024 Note Addended by: SEDRICK BRADLEY on: 06/29/2024 06:05 PM Modules accepted: Level of Service [facility] 06-16-2024 Telephone encount er Note Added. Pt aware. [facility] 06-16-2024 Miscellaneous Notes Formattin g of this [...] specialist for this) Received fax, placed in [employer]. Faxed to [facility] Name of caller: Yodit Contact phone number: [phone] Relationship to Patient: patient Provider: 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 Practice: [facility] Chief Complaint/Reason for Call: The patient states she got the knee xrays done at [facility] in [place]. Please advise Best time of day caller [...] we get these? Called and spoke with [facility] medical records, they will be sending over x-ray results to us now. FYI I have not received the xray results I had sent an MYRNA over to [facility]....have you gotten these yet? Sent MYRNA to [facility] to send xray results. Noted. I think she is referring to xray of knee at [place]. Will just need to make sure we receive results later this week. Name of caller: yodit Contact phone number: [phone] Relationship to Patient: patient Provider: 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 Practice: [facility] Chief Complaint/Reason for Call: pt called in to let provider that she got labs done Best time of day caller can be reached: AM Patient advised that office/PCP has 24-48 business hours to return their call: Yes documented in this encounter [facility] 06-16-2024 Telephone encount er Note Yes we can do it at that time- please add to the appt note [facility] 06-16-2024 Telephone encount er Note Notified, asking if you can do this injection at her visit on 06/28/24. [facility] 06-16-2024 Telephone encount er Note Reviewed knee xray. Shows mild osteoarthritis and some calcium deposits within the joint that are likely causing the pain. Recommend considering a corticosteroid knee injection (this can be done here or she can go and see ortho specialist for this) [facility] 06-16-2024 Telephone encount er Note Received fax, placed in [employer]. [facility] 06-15-2024 Telephone encount er Note Faxed to [facility] 06-15-2024 Telephone encount er Note Name of caller: Yodit Contact phone number: [phone] Relationship to Patient: patient Provider: 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 Practice: [facility] Chief Complaint/Reason for Call: The patient states she got the knee xrays done at [facility] in [place]. Please advise Best time of day caller can be reached: Any Patient advised that office/PCP has 24-48 business hours to return their call: No [facility] 06-15-2024 Telephone encount er Note Left a message to return call. CAC: If patient calls back please obtain where she got her knee xrays done at. [facility] 06-15-2024 Telephone encount er Note We got a fax stating that there was no radiology report that they had for this. Will call Yodit and see where she got these done/when she got these done. [facility] 06-15-2024 Telephone encount er Note Did we get these? [facility] 06-14-2024 Telephone encount er Note Called and spoke with [facility] medical records, they will be sending over x-ray results to us now. FYI [facility] 06-10-2024 Telephone encount er Note [facility] 06-10-2024 Miscellaneous Notes Formattin g of this note might be different from the original. Prescription Request: Last medication check: 01/21/24 Last physical exam: 05/04/24 Next scheduled appointment: 06/28/24 Last date of refill on this medication 12/10/23 documented in this encounter [facility] 06-10-2024 Telephone encount er Note Prescription Request: Last medication check: 01/21/24 Last physical exam: 05/04/24 Next scheduled appointment: 06/28/24 Last date of refill on this medication 12/10/23 [facility] 06-10-2024 Telephone encount er Note Prescription Request: Last medication check: 01/21/24 Last physical exam: 05/04/24 Next scheduled appointment: 06/28/24 Last date of refill on this medication Omeprazole 12/03/23, Vit D 01/16/24 [facility] 06-10-2024 Miscellaneous Notes Formattin g of this note is different from the original. Prescription Request: Last medication check: 01/21/24 Last physical exam: 05/04/24 Next scheduled appointment: 06/28/24 Last date of refill on this medication Omeprazole 12/03/23, Vit D 01/16/24 documented in this encounter [facility] 06-08-2024 Telephone encount er Note I have not received the xray results [facility] 06-08-2024 Telephone encount er Note I had sent an MYRNA over to [facility]....have you gotten these yet? [facility] 06-02-2024 Telephone encount er Note Sent MYRNA to [facility] to send xray results. [facility] 06-02-2024 Telephone encount er Note Reviewed chart. Refill appropriate. RX sent. [facility] 06-02-2024 Miscellaneous Notes Formattin g of this note might be different from the original. Reviewed chart. Refill appropriate. RX sent. Prescription Request: Last medication check: 01/21/24 Last physical exam: 05/04/24 Next scheduled appointment: 06/28/24 Last date of refill on this medication 03/25/24 90 day 1 refill documented in this encounter [facility] 06-02-2024 Telephone encount er Note Prescription Request: Last medication check: 01/21/24 Last physical exam: 05/04/24 Next scheduled appointment: 06/28/24 Last date of refill on this medication 03/25/24 90 day 1 refill [facility] 05-25-2024 Evaluation + Plan note Associ ated Problem(s): Acute pain of right knee Will obtain imaging due to history of osteoarthritis to evaluate status. Has been couple years since last imaging per patient. Recommend heather BLEDSOE to see chiropractor for knee, pending imaging results, consider PT and or referral to sports med [facility] 05-25-2024 Miscellaneous Notes Associate d Problem(s): Acute pain of right knee Will obtain imaging due to history of osteoarthritis to evaluate status. Has been couple years since last imaging per patient. Recommend heather BLEDSOE to see chiropractor for knee, pending imaging results, consider PT and or referral to sports med documented in this encounter [facility] 05-25-2024 Telephone encount er Note Noted. I think she is referring to xray of knee at [place]. Will just need to make sure we receive results later this week. [facility] 05-25-2024 Telephone encount er Note Name of caller: yodit Contact phone number: [phone] Relationship to Patient: patient Provider: 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 Practice: [facility] Chief Complaint/Reason for Call: pt called in to let provider that she got labs done Best time of day caller can be reached: AM Patient advised that office/PCP has 24-48 business hours to return their call: Yes [facility] 05-25-2024 Note Exam Date Time Procedure Performing Provider Status 05/25/24 12:28 PM XR Knee 3 Views Right Contributor_sy stem, FUJI; Auth (Verified) [id number] ORIGINAL EXAMINATION: THREE XRAY VIEWS OF THE [...] PM Ordering Provider: SEDRICK HEMPHILL [facility]12-31-2024 History of Present illness Narrative * Dian Stuart - 05/25/2024 10:40 AM EST Patient was identified by name and Date of . * 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, 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 - 05/25/2024 10:40 AM EST Images from [...] CNP 05/25/2024 2:32 PM documented in this [facility]12-31-2024 Instructions* Patient Instructions* ASAF Ramos CNP - 05/25/2024 10:40 AM EST Try the Voltaren cream on joints. Ice and elevate right knee, try compression sleeve during the day. documented in this [facility]12-30-2024 Telephone encounter Note* Telephone Encounter - Gerri Hazel RN - 05/24/2024 11:23 AM EST S: The patient is calling the [facility] about right knee pain B: This [...] present > 3 days Protocols used: Knee [id number]-UO [id number] Miscellaneous Notes* Telephone Encounter - Gerri Mcmillan RN - 05/24/2024 11:23 AM EST S: The patient is calling the [facility] about right knee pain B: This [...] present > 3 days Protocols used: Knee [id number]-[id number]-KO documented in this [facility]12-19-2024 Evaluation note* Diagnosis Onset Date Resolution Status Admit Date S/P lumbar fusion acute Decembe r 2023 1:20pm S/P lumbar fusion acute Februar y 2024 11:24am Osteoarthritis of right knee acute July 07, 2024 10:48am Osteoarthritis of right knee acute July 28, 2024 10:48am Cervical myelopathy acute July 30, 2024 10:46am [facility] Work Phone: [phone]) 760-606212-10-2024 Evaluation + Plan note* Assessment & Plan Note - Moshe Key MD - 05/04/2024 9:30 AM ESTAssociated Problem(s): Hypertension Initially elevated, recheck was normal, continue chlorthalidone 25 mg daily and irbesartan 300 mg daily [id number] Evaluation + Plan note* Assessment & Plan Note - Moshe Key MD - 05/04/2024 9:30 AM ESTAssociated Problem(s): Gastroesophageal reflux disease without esophagitis Stable, continue omeprazole 40 mg daily [facility] [id number] Evaluation + Plan note* Assessment & Plan Note - Moshe Key MD - 05/04/2024 9:30 AM ESTAssociated Problem(s): Hereditary hemochromatosis (HCC) Stable, recheck lab work today. Orders: CBC auto differential; Future Ferritin; Future Iron and TIBC; Future CBC auto differential Ferritin Iron and TIBC [facility] [id number] Evaluation + Plan note* Assessment & Plan Note - Moshe Key MD - 05/04/2024 9:30 AM ESTAssociated Problem(s): Hypothyroidism Controlled, continue levothyroxine 100 mcg daily Orders: TSH; Future TSH [id number] Evaluation + Plan note* Assessment & Plan Note - Moshe Key MD - 05/04/2024 9:30 AM ESTAssociated Problem(s): Type 2 diabetes mellitus without complication, without long-term current useof insulin (CMS/HCC) (HCC) Controlled, continue metformin 1000 mg twice a day Orders: Comprehensive metabolic panel; Future Hemoglobin A1c; Future Comprehensive metabolic panel Hemoglobin A1c [facility] [id number] Evaluation + Plan note* Assessment & Plan Note - Moshe Key MD - 05/04/2024 9:30 AM ESTAssociated Problem(s): Pure hypercholesterolemia Controlled, continue atorvastatin 10 mg daily Orders: Lipid panel; Future Lipid panel [facility] [id number] History of Present illness Narrative* Allison Dunlap MA - 05/04/2024 9:30 AM EST Patient verified by last name and date of . * Moshe Key MD - 05/04/2024 9:30 AM EST Images from the original note were not included. [facility] [address] [address] Visit Type: Medicare Annual Wellness PCP: Moshe Key MD Reason for Visit: Medicare Annual Wellness Visit Subsequent, Blood Work, and Health Maintenance (Tdap vaccine- agree/2nd shingles vaccine- advised to go to pharmacy /Dental exam- not done/Eye exam- go to [facility] in [place] - will send for record ) Assessment [...] MD 05/04/2024 9:57 AM documented in this [facility]12-10-2024 Miscellaneous Notes* Assessment & Plan Note [...] panel; Future Lipid panel documented in this [facility]12-09-2024 Telephone encounter Note* Telephone Encounter - Kourtney Hoff MA - 05/03/2024 7:02 AM EST Prescription Request: Last medication check: 01/21/2024 Last physical exam: 04/23/2023 Next scheduled appointment: 05/04/2024 Last date of refill on this medication: 12/03/2023 [id number] Miscellaneous Notes* Telephone Encounter - Kourtney Hoff MA - 05/03/2024 7:02 AM EST Prescription Request: Last medication check: 01/21/2024 Last physical exam: 04/23/2023 Next scheduled appointment: 05/04/2024 Last date of refill on this medication: 12/03/2023 documented in this [facility]11-04-2024 [facility] Medical Records Department [address] [place] [address] History Physical Exam 03/29/24 0732 MR#: [id number] Acct: [id number] Name: YODIT LANDIN Rep #: [id number] : 1955 68 From: Arnold Morton MD PCP: Dr. Moshe Key MD Status:[facility] Location: [place] [address] History and Physical Date of Admission: 03/29/24 MR#: [id number] Acct: [id number] Name: YODIT LANDIN Rep #: [id number] : 1955 Provider: Dr. Arnold Morton MD Age/Sex: 68/F [place] [facility] [place] Status: Signed Intake Vital Signs 02/05/2416:00 Height [...] mg PO .QAM 01/16/24 03/19/24 History omega 0-ifk-bxk-fish oil 1,200 mg 1 cap PO DAILY [...] cap PO TID 03/15/24 03/19/24 History 31.25 iha-pxdl-aesbawtjh-quercet capsule (Immune Essentials Daily) Have you fallen [...] left leg. She states (more content not included)...[facility]10-31-2024 Telephone encounter Note* Telephone Encounter - ASAF Ramos CNP - 03/25/2024 2:58 PM EDT Reviewed chart. Refill appropriate. RX sent. [facility] [id number] Miscellaneous Notes* Telephone Encounter - ASAF Ramos [...] up the medication: N/A documented in this [facility]10-31-2024 Telephone encounter Note* Telephone Encounter - [...] prior to picking up the medication: N/A [facility] [id number] Evaluation + Plan note* Assessment & Plan Note - ASAF Ramos CNP - 03/09/2024 4:58 PM EDTAssociated Problem(s): Preoperative clearance Medical optimized for surgery. [facility] [id number] Miscellaneous Notes* Assessment & Plan Note - ASAF Ramos CNP - 03/09/2024 4:58 PM EDTAssociated Problem(s): Preoperative clearance Medical optimized for surgery. * Assessment & Plan Note - ASAF Ramos CNP - 03/09/2024 4:55 PM EDTAssociated Problem(s): Type 2 diabetes mellitus without complication, without long-term current useof insulin ([facility]) ([facility]) Controlled. Glucose readings consistently under 150. Continue metformin 1000 mg twice daily * Assessment & Plan Note - ASAF Ramos CNP - 03/09/2024 4:53 PM EDTAssociated Problem(s): Hypertension Mild elevation in blood pressure today. 146/76. Continue current medications Avapro 300 mg daily, chlorthalidone 25 mg daily, follow-up as directed. documented in this [facility]10-15-2024 Miscellaneous Notes* Assessment & Plan Note - ASAF Ramos CNP - 03/09/2024 4:58 PM EDTAssociated Problem(s): Preoperative clearance Medical optimized for surgery. * Assessment & Plan Note - ASAF Ramos CNP - 03/09/2024 4:55 PM EDTAssociated Problem(s): Type 2 diabetes mellitus without complication, without long-term current useof insulin ([facility]) ([facility]) Controlled. Glucose readings consistently under 150. [...] accepted: Level of Service documented in this [facility]10-15-2024 Evaluation + Plan note* Assessment & Plan Note - ASAF Ramos CNP - 03/09/2024 4:55 PM EDTAssociated Problem(s): Type 2 diabetes mellitus without complication, without long-term current useof insulin ([facility]) ([facility]) Controlled. Glucose readings consistently under 150. Continue metformin 1000 mg twice daily [facility] [id number] Evaluation + Plan note* Assessment & Plan Note - ASAF Ramos CNP - 03/09/2024 4:53 PM EDTAssociated Problem(s): Hypertension Mild elevation in blood pressure today. 146/76. Continue current medications Avapro 300 mg daily, chlorthalidone 25 mg daily, follow-up as directed. [facility] [id number] History of Present illness Narrative* ASAF Ramos CNP - 03/09/2024 11:00 AM EDT Images from the original note were not included. [facility] - [address] [facility] [address] Dept: [phone] Dept Loc: [phone] Subjective Chief Complaint: Ms. Landin is a 68 y.o. female who presentsfor pre-operative evaluation. Planned surgery: MIS-TLIF at L5-S1 Surgeon: Dr. Rose- [facility] Date of Surgery: 03/29/2024 Plans to be overnight. Then home the next day. Will have PT at the rehab center in [place]. Has another appt next week- on the [...] complication, without long-term current use of insulin ([facility]) ([facility]) Assessment & Plan: Controlled. Glucose readings [...] Exam-needs completed COVID-19 Vaccine-declined Diabetes: Retinopathy Screening-02/20/2024 [facility] Diabetes: Foot Exam-pended documented in this [facility]10-15-2024 History of Present illness Narrative* ASAF Ramos CNP - 03/09/2024 11:00 AM EDT Images from the original note were not included. [address] [address] Dept: [phone] Dept Loc: [phone] Subjective Chief Complaint: Ms. Landin is a 68 y.o. female who presentsfor pre-operative evaluation. Planned surgery: MIS-TLIF at L5-S1 Surgeon: Dr. Rose- [facility] Date of Surgery: 03/29/2024 Plans to be overnight. Then home the next day. Will have PT at the rehab center in [place]. Has another appt next week- on the [...] complication, without long-term current use of insulin ([facility]) ([facility]) Assessment & Plan: Controlled. Glucose readings [...] Exam-needs completed COVID-19 Vaccine-declined Diabetes: [facility]: Foot Exam-pended documented in this [facility]10-15-2024 Instructions* Patient Instructions* ASAF Ramos CNP - 03/09/2024 11:00 AM EDT Vit d 2,000 international units daily over the counter. documented in this [facility]10-15-2024 Instructions* Patient Instructions* ASAF Ramos CNP - 03/09/2024 11:00 AM EDT Vit d 2,000 international units daily over the counter. documented in this [facility]10-15-2024 Note* Addendum Note - ASAF Ramos CNP - 03/09/2024 11:00 AM EDTAddended by: SEDRICK HEMPHILL on: 03/11/2024 06:38 PM Modules accepted: Level of Service [facility] [id number] NoteAddended by: SEDRICK HEMPHILL on: 03/11/2024 06:38 PM Modules accepted: [facility] Telephone encounter Note* Telephone Encounter - Emily Kingsley MA - 02/13/2024 11:10 AM EDT Notified, needs 90 day supply to mail order pharmacy. [facility] [id number] Telephone encounter Note* Telephone Encounter - Emily Kingsley MA - 02/13/2024 11:10 AM EDT ----- Message from ASAF Ramos CNP sent at 02/13/2024 11:09 AM EDT ----- Tsh - normal, continue current dosing of levothyroxine 100 mcg daily [facility] [id number] Miscellaneous Notes* Telephone Encounter - Emily Kingsley MA - 02/13/2024 11:10 AM EDT Notified, needs 90 day supply to mail order pharmacy. * Telephone Encounter - Emily Kingsley MA - 02/13/2024 11:10 AM EDT ----- Message from ASAF Ramos CNP sent at 02/13/2024 11:09 AM EDT ----- Tsh - normal, continue current dosing of levothyroxine 100 mcg daily documented in this [facility]08-28-2024 Evaluation + Plan note* Assessment & Plan Note - ASAF Ramos CNP - 01/21/2024 11:48 AM EDTAssociated Problem(s): Bilateral foot pain Improving. Patient to continue follow-up with podiatry as previously directed. Continue orthotics [facility] [id number] Miscellaneous Notes* Assessment & Plan Note - [...] without complication, without long-term current useof insulin ([facility]) ([facility]) Controlled, continue metformin 1000 mg twice daily * Assessment & Plan Note - ASAF Ramos CNP - 01/21/2024 11:43 AM EDTAssociated Problem(s): Degenerative disc disease, lumbar Follow-up with psych specialist as directed. documented in this [facility]08-28-2024 Evaluation + Plan note* Assessment & Plan Note - ASAF Ramos CNP - 01/21/2024 11:47 AM EDTAssociated Problem(s): Murmur, cardiac Noted new murmur on physical examination. Will obtain echocardiogram to further evaluate. Most recent EKG in August 2023 (preop)- sinus rhythm. Denies any shortness of breath or chest pain. [facility] [id number] Evaluation + Plan note* Assessment & Plan Note - ASAF Ramos CNP - 01/21/2024 11:46 AM EDTAssociated Problem(s): Iron deficiency anemia Iron levels have improved, hemoglobin still lower than her baseline. Recommend continue iron supplementation. Consider referral to gastroenterology for further evaluation. Recent Cologuard negative, previous colonoscopy in 2017 normal [facility] [id number] NoteIron levels have improved, hemoglobin still lower than her baseline. Recommend continue iron supplementation. Consider referral to gastroenterology for further evaluation. Recent Cologuard negative, previous colonoscopy in 2017 [facility]08-28-2024 Evaluation + Plan note* Assessment & Plan Note - ASAF Ramos CNP - 01/21/2024 11:45 AM EDTAssociated Problem(s): Hypothyroidism Uncontrolled. Recent change in levothyroxine dose increased to 100 mcg daily. Recommend starting new dosing and rechecking TSH in 8 weeks [place] [id number] Evaluation + Plan note* Assessment & Plan Note - ASAF Ramos CNP - 01/21/2024 11:44 AM EDTAssociated Problem(s): Hypertension Mild elevation in blood pressure today. 146/80. Continue current medications Avapro 300 mg daily, chlorthalidone 25 mg daily, follow-up as directed. [place] [id number] Evaluation + Plan note* Assessment & Plan Note - ASAF Ramos CNP - 01/21/2024 11:44 AM EDTAssociated Problem(s): Type 2 diabetes mellitus without complication, without long-term current useof insulin ([facility]) ([facility]) Controlled, continue metformin 1000 mg twice daily [place] [id number] Evaluation + Plan note* Assessment & Plan Note - ASAF Ramos CNP - 01/21/2024 11:43 AM EDTAssociated Problem(s): Degenerative disc disease, lumbar Follow-up with psych specialist as directed. [place] [id number] History of Present illness Narrative* Dian Stuart [...] disease, lumbar Assessment & Plan: Follow-up with psych specialist as directed. 4. Iron deficiency anemia, [...] Continue orthotics Follow up for 3 month [facility]. SUBJECTIVE/OBJECTIVE: JAIME - Yodit Landin (: 1955) is a 68 y.o. female , Established patient, here for the evaluation ofthe following chief complaint(s): Diabetes Hearing deficit-just got new Hearing aids- has following up next week with iron bender Back pain-was referred to orthospine and reports seeing Dr. Marroquin (ortho-spine), for lumbar pain, is getting a MRI, and starting physical at [facility] in [place], still seeing chiropractor. States that she might end up getting back surgery. Denies any significant change in her symptoms, denies any bowel or bladder changes Foot pain-sees Dr. Brenner in [facility]- has inserts now and that is [...] Historical Provider, ergocalciferol (Vitamin D-2) 1.25 MG (23454 UT) capsule Take 1 capsule (1.25 mg) [...] CNP 01/21/2024 11:49 AM documented in this [facility]08-28-2024 Instructions* Patient Instructions* ASAF Ramos CNP - 01/21/2024 10:20 AM EDT Bring in research records. -Please call Central Scheduling at [phone] to schedule your outpatient test (CT of lung for lung cancer screening) documented in this encounterSKing's [facility] OhioYiihwl40-04-2219 Telephone encounter Note* Telephone Encounter - Emily Kingsley MA - 01/16/2024 9:19 AM EDT Patient is agreeable, scheduled in 8 weeks, orders and med pended, pharmacy verified. Please update sig for B12 as well. [facility] [id number] Miscellaneous Notes* Telephone Encounter - Emily Kingsley [...] mcg daily and rechecking in 8 weeks [id number]-ypccr slightly elevated, may reduce B12 supplement to every other day Folate-normal Transferrin-normal Back to Top Vit d low- 25, recommend vitamin D 50,000 international units once weekly x 12 weeks, then 2000 international units daily [id number]-fkp-[id number] (please see other results) Left a message [...] visit is needed. Thanks! documented in this encounterSKing's Daughters [facility] Center OhioWzrzhr31-68-1764 Telephone encounter Note* Telephone Encounter - Emily Kingsley MA - 01/15/2024 4:23 PM EDT ----- Message from ASAF Ramos CNP sent at 01/15/2024 4:16 PM EDT ----- Iron and TIBC still low normal range however gradually improving CBC-slight improvement in hemoglobin Ferritin-unchanged TSH-elevated, meaning we need to adjust the levothyroxine, recommend increasing to 100 mcg daily and rechecking in 8 weeks E71-fzwlw slightly elevated, may reduce B12 supplement to every other day Folate-normal Transferrin-normal Back to Top Vit d low- 25, recommend vitamin D 50,000 international units once weekly x 12 weeks, then 2000 international units daily ypci-uvz-tqyxgoz (please see other results) Left a message [...] then no nurse visit is needed. Thanks! [facility] [id number] Note* Addendum Note - ASAF Ramos CNP - 12/29/2023 8:22 AM EDTAddended by: SEDRICK HEMPHILL on: 12/29/2023 08:22 AM Modules accepted: Orders [facility] [id number] Note* Addendum Note - ASAF Ramos CNP - 12/29/2023 8:22 AM EDTAddended by: SEDRICK HEMPHILL on: 12/29/2023 08:22 AM Modules accepted: Orders [facility] [id number] NoteAddended by: SEDRICK HEMPHILL on: 12/29/2023 08:22 AM Modules accepted: [facility]08-05-2024 Miscellaneous Notes* Addendum Note - ASAF Ramos [...] like a referral to orthospine in the [place] area. Will have auto club safety program coordinator assist with finding provider in network for her. We will also check vitamin D level at next lab draw on January 14, 2024. Also get DEXA scan completed to further evaluate osteopenia * Telephone Encounter - Abimbola Antony - 12/24/2023 10:38 AM EDT Name of caller: Yodit Landin Contact phone number: [phone] Relationship to Patient: patient Provider: Dr. Key [...] evaluation by orthospine doctor. documented in this encounterSKing's Daughters [facility] Center OhioNyujhu23-60-6255 Telephone encounter Note* Telephone Encounter - ASAF Ramos CNP - 12/29/2023 7:34 AM EDT Reviewed chart. Refill appropriate. RX sent. [facility] [id number] Miscellaneous Notes* Telephone Encounter - ASAF Ramos CNP - 12/29/2023 7:34 AM EDT Reviewed chart. Refill appropriate. RX sent. * Telephone Encounter - Allison Dunlap MA - 12/29/2023 7:17 AM EDT Prescription Request: Last date of refill on this medication Sent 10/22/[facility] 1 refill documented in this [facility]08-05-2024 Telephone encounter Note* Telephone Encounter - Allison Dunlap MA - 12/29/2023 7:17 AM EDT Prescription Request: Last date of refill on this medication Sent 10/22/[facility] 1 refill [facility] [id number] Note* Addendum Note - ASAF Ramos CNP - 12/24/2023 6:13 PM EDTAddended by: SEDRICK HEMPHILL on: 12/24/2023 06:13 PM Modules accepted: Orders [facility] [id number] Note* Addendum Note - ASAF Ramos CNP - 12/24/2023 6:13 PM EDTAddended by: SEDRICK HEMPHILL on: 12/24/2023 06:13 PM Modules accepted: Orders [facility] [id number] Note* Addendum Note - ASAF Ramos CNP - 12/24/2023 6:13 PM EDTAddended by: SEDRICK HEMPHILL on: 12/24/2023 06:13 PM Modules accepted: Orders [place] [id number] Note* Addendum Note - ASAF Ramos CNP - 12/24/2023 6:13 PM EDTAddended by: SEDRICK HEMPHILL on: 12/24/2023 06:13 PM Modules accepted: Orders [facility] [id number] Note* Addendum Note - ASAF Ramos CNP - 12/24/2023 6:13 PM EDTAddended by: SEDRICK HEMPHILL on: 12/24/2023 06:13 PM Modules accepted: Orders [facility] [id number] NoteAddended by: SEDRICK HEMPHILL on: 12/24/2023 06:13 PM Modules accepted: [facility]07-31-2024 NoteCalled patient and reviewed results of x-ray. She would like a referral to orthospine in the [place]. Will have auto club safety program coordinator assist with finding provider in network for her. We will also check vitamin D level at next lab draw on January 14, 2024. Also get DEXA scan completed to further [facility]openiaHenry [facility]07-[facility] Telephone encounter Note* Telephone Encounter - ASAF Ramos CNP - 12/24/2023 6:13 PM EDT Called patient and reviewed results of x-ray. She would like a referral to orthospine in the [facility]. Will have auto club safety program coordinator assist with finding provider in network for her. We will also check vitamin D level at next lab draw on January 14, 2024. Also get DEXA scan completed to further evaluate osteopenia [facility] [id number] Miscellaneous Notes* Addendum Note - ASAF Ramos CNP - 12/24/2023 6:13 PM EDTAddended by: SEDRICK HEMPHILL on: 12/24/2023 06:13 PM Modules accepted: Orders * Telephone Encounter - ASAF Ramos CNP - 12/24/2023 6:13 PM EDT Called patient and reviewed results of x-ray. She would like a referral to orthospine in the [place] area. Will have auto club safety program coordinator assist with finding provider in network for her. We will also check vitamin D level at next lab draw on January 14, 2024. Also get DEXA scan completed to further evaluate osteopenia * Telephone Encounter - Abimbola Antony - 12/24/2023 10:38 AM EDT Name of caller: Yodit Landin Contact phone number: [phone] Relationship to Patient: patient Provider: Dr. Key [...] evaluation by orthospine doctor. documented in this encounterSKing's Daughters [facility] OhioGyjlnw38-42-4048 Telephone encounter Note* Telephone Encounter - Abimbola Antony - 12/24/2023 10:38 AM EDT Name of caller: Yodit Landin Contact phone number: [phone] Relationship to Patient: patient Provider: Dr. Key Practice: [facility] Chief Complaint/Reason for Call: Patient is returning call from office regarding x-ray results. Please call patient back to discuss results. Please advise, thank you. Best time of day caller can be reached: Any Patient advised that office/PCP has 24-48 business hours to return their call: Yes [facility] [id number] Telephone encounter Note* Telephone Encounter - Allison Dunlap MA - 12/24/2023 10:27 AM EDT LM for pt to return call [facility] [id number] Telephone encounter Note* Telephone Encounter - Allison Dunlap MA - 12/24/2023 10:27 AM EDT ----- Message from 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 APRN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 sent at 12/24/2023 7:39 AM EDT ----- Lumbar x-ray shows severe degenerative disc disease he had an osteopenic bones (this can lead to osteoporosis and increase risk for fractures). Recommend getting dexa scan (bone density test) and checking vit d level -then we can further recommend treatment for the osteopenia, as for the severe degenerative disc disease- recommend evaluation by orthospine doctor. [facility] [id number] Telephone encounter Note* Telephone Encounter - Dian Stuart - 12/12/2023 7:28 AM EDT MYRNA for Dr. Jimenez had to be mailed out-no fax number provided on website, attempted calling them andno answer and unable to leave voicemail (recording kept rotating). My chart message sent to patientwith list of [facility] that accept her insurance advised her to please let us know who she would like us to put a referral in for and to call them to be sure they accept her insurance. [facility] [id number] Miscellaneous Notes* Telephone Encounter - Dian Stuart - 12/12/2023 7:28 AM EDT MYRNA for Dr. Jimenez had to be mailed out-no fax number provided on website, attempted calling them andno answer and unable to leave voicemail (recording kept rotating). My chart message sent to patientwith list of [facility] that accept her insurance advised her to please let us know who she would like us to put a referral in for and to call them to be sure they accept her insurance. * Telephone Encounter - ASAF Ramos CNP - 12/11/2023 4:57 PM EDT Please see if we can get records from Dr. Trena Jimenez, chiropractor in [place]. Patient thinks shehad imaging done in 2019? [...] in touch. Thank you! documented in this encounterSKing's Daughters Medical Center OhioLofwod79-85-2222 Telephone encounter Note* Telephone Encounter - ASAF Ramos CNP - 12/11/2023 4:57 PM EDT Please see if we can get records from Dr. Trena Jimenez, chiropractor in [place]. Patient thinks shehad imaging done in 2019? That Dr. Jimenez had ordered. Also would like Dr. Jimenez's last treatment plan Also- does she have anyone in mind for podiatry? She can check with her insurance to see who else is in network for her and I can make the referral if needed. [facility] [id number] Telephone encounter Note* Telephone Encounter - Nancy [...] someone would be in touch. Thank you! [facility] [id number] Telephone encounter Note* Telephone Encounter - Emily Kingsley MA - 12/09/2023 4:50 PM EDT Spoke to Yodit, send to [facility] please. Thanks! [facility] [id number] Miscellaneous Notes* Telephone Encounter - Emily Kingsley MA - 12/09/2023 4:50 PM EDT Spoke to Yodit, send to [facility] please. Thanks! * Telephone Encounter - Moshe Key MD - 12/09/2023 4:30 PM EDT What pharmacy does she want this sent to * Telephone Encounter - Kourtney Hoff MA - 12/09/2023 3:02 PM EDT Spoke to Yodit, states that her old doctor from [place], Dr. Caitlin Hope, was the one who prescribed it for her last, and gave her 23 refills. States that since she is no longer down in [place], she cannot get it filled through them. [...] on this medication: 10/22/2022 documented in this encounterSKing's Daughters [facility] Center OhioJtkphx83-64-3335 Telephone encounter Note* Telephone Encounter - Moshe Key MD - 12/09/2023 4:30 PM EDT What pharmacy does she want [address]bvwzb09-75-7998 Telephone encounter Note* Telephone Encounter - Kourtney Hoff MA - 12/09/2023 3:02 PM EDT Spoke to Yodit, states that her old doctor from [place], Dr. Caitlin Hope, was the one who prescribed it for her last, and gave her 23 refills. States that since she is no longer down in [place], she cannot get it filled through them. 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 [address]Uqfrzb50-92-1629 Telephone encounter Note* Telephone Encounter - Moshe Key MD - 12/09/2023 10:51 AM EDT Refused, this does not look like we ever prescribed the medication [place] [id number] Telephone encounter Note* Telephone Encounter - Kourtney Hoff MA - 12/09/2023 9:26 AM EDT Prescription Request: Last medication check: 10/22/2023 Last physical exam: 04/23/2023 Next scheduled appointment: 01/21/2024 Last date of refill on this medication: 10/22/2022 [place] [id number] Telephone encounter Note* Telephone Encounter - Emily Kingsley MA - 12/03/2023 10:30 AM EDT Notified, she will get the ferrous sulfate OTC, I added it to her med list. She also states that [facility] has contacted us 2x for her refills, meds are pended. Orders as well. Scheduled recheck. [facility] [id number] Miscellaneous Notes* Telephone Encounter - Emily Kingsley [...] to check thyroid functioning. documented in this encounterSKing's Daughters Medical Center OhioQibfsd93-37-0634 Telephone encounter Note* Telephone Encounter - Emily [...] folate, and TSH to check thyroid functioning. [facility] [id number] Evaluation + Plan note* Assessment & Plan Note - ASAF Ramos CNP - 12/01/2023 5:59 PM EDTAssociated Problem(s): Bilateral foot pain Obtain recent podiatry notes. Follow-up with podiatry as scheduled [facility] [id number] Miscellaneous Notes* Assessment & Plan Note - ASAF Ramos CNP - 12/01/2023 5:59 PM EDTAssociated Problem(s): Bilateral foot pain Obtain recent podiatry notes. Follow-up with podiatry as scheduled * Assessment & Plan Note - ASAF Rmaos CNP - 12/01/2023 5:57 PM EDTAssociated Problem(s): Left buttock pain Highly suspect sciatic pain. Patient with significant trigger point upon palpation. Will obtain recent progress notes from chiropractor and retail sales manager for further plan of care. Consider imaging of the pelvis hip area if indicated. Last imaging was done per patient in2019 by chiropractor documented in this encounterSKing's Daughters Medical Center [id number] Evaluation + Plan note* Assessment & Plan Note - ASAF Ramos CNP - 12/01/2023 5:57 PM EDTAssociated Problem(s): Left buttock pain Highly suspect sciatic pain. Patient with significant trigger point upon palpation. Will obtain recent progress notes from chiropractor and retail sales manager for further plan of care. Consider imaging of the pelvis hip area if indicated. Last imaging was done per patient in2019 by chiropractor [facility] [id number] History of Present illness Narrative* Allison Dunlap [...] obtain recent progress notes from chiropractor and retail sales manager for further plan of care. Consider imaging [...] iron levels. Patient recently got back from [place] and has some questions about her leg/feet pain and left lower back hip pain. She has seen Dr. Beltran-podiatry for foot pain. States she she is supposed to have some furthertesting done but does not remember exactly what testing it is. She got new shoes and may be fitted f or orthotics. When she was in [place] she had an episode of severe left hip pain making it difficult to walk. Shedid see a specialist down there who diagnosed her with piriformis dysfunction. She also is seeing achiropractor here in [place]. Patient states she had a fracture of [...] CNP 12/01/2023 5:59 PM documented in this [facility]07-02-2024 History of Present illness Narrative* Nadya Harkins PA-C - 11/25/2023 1:00 PM EDT Images from the original note were not included. [facility] [address] [facility] [address] Dept: [phone] Dept 11/25/2023 Chief Complaint Patient presents with [...] NONE Nadya Harkins PA-C to Dr. [facility] Hand and Upper Extremity Plastic and Reconstructive Surgery 11/25/2023 at 1:40 PM (Please note that portions of this note may have been completed with a voice recognition program. Efforts were made to edit the dictations but occasionally words are mis-transcribed.) documented in this [facility]05-30-2024 Telephone encounter Note* Telephone Encounter - Nadya Harkins PA-C - 10/23/2023 8:32 AM EDT Okay, thank you [employer] Phone: [phone] Miscellaneous Notes* Telephone Encounter - Nadya Harkins PA-C - 10/23/2023 8:32 AM EDT Okay, thank you * Telephone Encounter - Faiza Navarro - 10/22/2023 4:57 PM EDT Name of caller: Yodit Contact phone number: [phone] Relationship to Patient: patient Provider: Nadya Practice: [...] return their call: No documented in this encounterSKing's [facility] OhioLasypk16-47-9714 Telephone encounter Note* Telephone Encounter - Faiza Navarro - 10/22/2023 4:57 PM EDT Name of caller: Yodit Contact phone number: [phone] Relationship to Patient: patient Provider: Nadya Practice: [...] business hours to return their call: No [facility] [id number] Evaluation + Plan note* Assessment & Plan Note - ASAF Ramos CNP - 10/22/2023 4:14 PM EDTAssociated Problem(s): Type 2 diabetes mellitus without complication, without long-term current useof insulin (CMS/[facility]) ([facility]) Controlled. Continue metformin at 1000 mg twice daily [facility] [id number] Evaluation + Plan note* Assessment & Plan Note - ASAF Ramos CNP - 10/22/2023 4:14 PM EDTAssociated Problem(s): Swelling of both lower extremities Denies any chest pain or shortness of breath, weight is stable. Patient reports being on furosemidepreviously and had stopped the medication about 4 weeks ago. Will check CMP and have her restart furosemide 20 mg daily [facility] [id number] Miscellaneous Notes* Assessment & Plan Note - [...] pain Follow-up with podiatry documented in this [facility]05-29-2024 Evaluation + Plan note* Assessment & Plan Note - ASAF Ramos CNP - 10/22/2023 4:13 PM EDTAssociated Problem(s): Hypertension Controlled continue irbesartan 300 mg daily, chlorthalidone 25 mg daily [facility] [id number] Evaluation + Plan note* Assessment & Plan Note - ASAF Ramos CNP - 10/22/2023 4:07 PM EDTAssociated Problem(s): Hereditary hemochromatosis (HCC) Has been stable. Check CBC iron levels today, if normal consider checking every 6 months [facility] [id number] Evaluation + Plan note* Assessment & Plan Note - ASAF Ramos CNP - 10/22/2023 4:07 PM EDTAssociated Problem(s): Bilateral foot pain Follow-up with podiatry [facility] [id number] History of Present illness Narrative* Dian Stuart [...] month. Still taking the metformin. Going to [place] on Friday and will be coming 11/22/2023- [...] signature was used to authenticate this note. ASFA Otoole CNP 10/22/2023 4:14 PM documented in this [facility]05-21-2024 History of Present illness Narrative* Nadya Harkins PA-C - 10/14/2023 1:30 PM EDT Images from the original note were not included. [facility] [address] [place] [address] Dept: [phone] Dept 10/14/2023 Chief Complaint Patient presents with [...] she is going out and going to advent as she has pain and hypersensitivity over the scar when people shake her hand or when the area brushes up against something. She was offered a prescription for formal occupational therapy for scar tissue massage and desensitization. She prefers an external referral to Occupational Therapy in [place] which is closer to her home. She [...] occasionally words are mis-transcribed.) documented in this [facility]05-21-2024 Instructions* Patient Instructions* Omar Fitch ATC [...] sink is also helpful. documented in this [facility]04-23-2024 History of Present illness Narrative* Nadya [...] by: AB/ADITYA Harkins PA-C to Dr. [facility] Hand and Upper Extremity Plastic and Reconstructive Surgery (Please note that portions of this note may have been completed with a voice recognition program. Efforts were made to edit the dictations but occasionally words are mis-transcribed.) documented in this [facility]04-23-2024 Instructions* Patient Instructions* Nadya Harkins PA-C [...] Where can you learn more? Go to [email or web address] and sign in to your Smartzer account. Enter Z454 in the Search Health Information box to learn more about Wrist : Rehab Exercises. If you do not have an account, please click on the Sign Up Now link. Current as of: July 26, 2019 Content Version: 12.6 [employer]. Care instructions adapted under license by [employer]. If you have questions about a medical condition or this instruction, always ask your healthcare professional. [employer] disclaims any warranty or liability for your use of this information. documented in this [facility]04-11-2024 Evaluation + Plan note* Assessment & Plan Note - 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 APRN - [facility] - 09/04/2023 2:49 PM EDTAssociated Problem(s): Visit for wound check No concerns. Additional padding added to the edge of the plaster splint, lower half of the dressingrewrapped with the Drake wrap. Patient to follow-up with her surgeon as scheduled [id number] Miscellaneous Notes* Assessment & Plan Note - ASAF Ramos CNP - 09/04/2023 2:49 PM EDTAssociated Problem(s): Visit for wound check No concerns. Additional padding added to the edge of the plaster splint, lower half of the dressingrewrapped with the Drake wrap. Patient to follow-up with her surgeon as scheduled documented in [place]SBr[place] [id number] Telephone encounter Note* Telephone Encounter - ASAF Ramos CNP - 09/04/2023 12:48 PM EDT Noted. Agree with disposition. [address]Kttahh55-66-3882 Miscellaneous Notes* Telephone Encounter - ASAF Ramos [...] unable to drive back over to the [place] location. R: OV scheduled for today with Julianna Hemphill with back line office staff approval. No further needsat this time. Reason for Disposition Patient wants to be seen Protocols used: Post-Op Symptoms and Oovzxsyli-UMTVQ-EW documented in this [facility]04-11-[facility]24 History of Present illness Narrative* Kourtney [...] CNP 09/04/2023 2:49 PM documented in this [facility]04-11-2024 Telephone encounter Note* Telephone Encounter - Iris Morales RN - 09/04/2023 9:36 AM EDT S: Patient spoke with [facility] nurse regarding post op problem-surgical bandage B: Surgery-09/03/23-RIGHT VOLAR RADIAL WRIST MASS EXCISION A: Patient had wrist surgery yesterday states she needs bandage rewrapped and she does not have supplies at home. Patient states there is a sharp area that is exposed on the splint. Patient states she is unable to drive back over to the [facility]. R: OV scheduled for today with Julianna Hemphill with back line office staff approval. No further needsat this time. Reason for Disposition Patient wants to be seen Protocols used: Post-Op Symptoms and Ukaieirzd-BADYL-UT [place] [id number] Note* Perioperative Nursing Note - Latesha Collins RN - 09/03/2023 11:21 AM EDT Pt and family verbalized understanding of recovery instructions, pt verbalized a readiness to be discharged home. Pt discharged home via wheelchair accompanied by RN/volunteer. Pt has had all their belongings returned to them at discharge [address] [id number] Note* Perioperative Nursing Note - Latesha Collins RN - 09/03/2023 11:21 AM EDT Pt and family verbalized understanding of recovery instructions, pt verbalized a readiness to be discharged home. Pt discharged home via wheelchair accompanied by RN/volunteer. Pt has had all their belongings returned to them at discharge [place] [id number] Miscellaneous Notes* Perioperative Nursing Note - Latesha [...] from OR via cart, spont. Resp. With WORKFORCE STAFFING ADVISOR in attendance. Placed on monitor. Monitor alarms on in PACU Pt received from OR via cart, spont. Resp. With WORKFORCE STAFFING ADVISOR in attendance. 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 Fire risk was [...] 09/03/2023 , 9:59 AM documented in this encounterSKing's Daughters [facility] [id number] Note* Perioperative Nursing Note - Latesha Collins RN - 09/03/2023 10:26 AM EDT Pt arousable, oral airway removed- pt tolerating well. Will monitor [facility] [id number] Note* Perioperative Nursing Note - Latesha Collins RN - 09/03/2023 10:26 AM EDT Pt arousable, oral airway removed- pt tolerating well. Will monitor [place] [id number] Note* Perioperative Nursing Note - Latesha Collins RN - 09/03/2023 10:14 AM EDT Pt received from OR via cart, spont. Resp. With WORKFORCE STAFFING ADVISOR in attendance. Placed on monitor. Monitor alarms on in PACU Pt received from OR via cart, spont. Resp. With WORKFORCE STAFFING ADVISOR in attendance. Placed on monitor.Monitor alarms on in PACU - pt has oral airway in place - will monitor [place] [id number] Note* Perioperative Nursing Note - Latesha Collins RN - 09/03/2023 10:14 AM EDT Pt received from OR via cart, spont. Resp. With WORKFORCE STAFFING ADVISOR in attendance. Placed on monitor. Monitor alarms on in PACU Pt received from OR via cart, spont. Resp. With WORKFORCE STAFFING ADVISOR in attendance. 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 Fire risk was [...] Austin Leos MD 09/03/2023 , 9:59 AM [employer] Phone: [phone] History and physical note* Chay Patel PA-C [...] iscomfortable providing informed consent for the procedure. [facility]04-10-2024 History and physical note* Chay Patel PA-C [...] Landin regarding the natural history, etiology, and senior care consequences of her condition. We discussed both [...] consent for the procedure. documented in this [facility]04-10-[facility]24 Hospital Discharge instructions* Discharge Instructions* Chay [...] * Moderate Sedation in Adults Discharge Instructions (Martiniquais) documented in this [facility]03-26-2024 Telephone encounter Note* Telephone Encounter - Moshe Key MD - 08/19/2023 3:31 PM EDT I do not know what this is about? [employer] Phone: [phone] 277-913603-26-2024 Miscellaneous Notes* Telephone Encounter - Moshe Key MD - 08/19/2023 3:31 PM EDT I do not know what this is about? * Telephone Encounter - Jessica Gil - 08/19/2023 2:00 PM EDT Name of caller: Yodit Contact phone number: [phone] Relationship to Patient: patient Provider: [facility]. Key [facility] Chief Complaint/Reason for Call: appt with Dr. Alvin Beltran DPM on 2:45 Best time of day caller can be reached: any Patient advised that office/PCP has 24-48 business hours to return their call: N/A Pt has surg on 09/03/[address] Leos documented in this [facility]03-26-[facility]24 Telephone encounter Note* Telephone Encounter - Jessica Gil - 08/19/2023 2:00 PM EDT Name of caller: Yodit Contact phone number: [phone] Relationship to Patient: patient Provider: Dr. Key Practice: Shan [facility] Chief Complaint/Reason for Call: appt with Dr. Alvin Beltran DPM on 2:45 Best time of day caller can be reached: any Patient advised that office/PCP has 24-48 business hours to return their call: N/A Pt has surg on 09/03/[address] Leos [id number] Telephone encounter Note* Telephone Encounter - Nadya Harkins PA-C - 08/08/2023 2:13 PM EDT PAT orders signed [employer] Phone: [phone] Miscellaneous Notes* Telephone Encounter - Nadya Harkins PA-C - 08/08/2023 2:13 PM EDT PAT orders signed * Telephone Encounter - Linda Baig - 08/07/2023 10:42 AM EDT Sent patient [employer] Technologyhart message with all sx information * Telephone Encounter - Linda Baig - 08/07/2023 10:34 AM EDT Called [facility]. Spoke with Marcela. No PA required. Ref# [id number] * Telephone Encounter - Linda Baig - 08/06/2023 10:03 AM EDT Sent to sx schdeuling * Telephone Encounter - Linda Baig - 08/05/2023 1:42 PM EDT ----- Message from Merlin Johnson ATC sent at 08/05/2023 1:36 PM EDT ----- DERIC SURGERY SCHEDULING SLIP Patient: Yodit Landin Date of : 1955 Date of Surgery: 09/03/23 @ 9:30am Day of Surgery: Friday Hospital: [place] Duration: 60 min Type: Outpatient PAT: Yes 08/26@[facility]@10:00pm Med Clearance: No Anesthesia: MAC/Local Block: None Position: Supine Table: Stretcher Arm Board: Roll-up arm table Radiology: None CPT Code: 95085 DX Code: M67.431 Case # [id number] Consent: right volar radial Wrist mass excision FollowUp: [facility] in 10-14 days XRays: no OT Splint needed at first PO appointment: no Special Requests Hand tray [place] blade Vessel loops available but not open 3.0 monocryl 4.0 nylon Small xeroform Splint material 4 inch plaster documented in this encounterSKing's Daughters [facility] [id number] Telephone encounter Note* Telephone Encounter - Linda Baig - 08/07/2023 10:42 AM EDT Sent patient MyChart message with all sx information [facility] [id number] Miscellaneous Notes* Telephone Encounter - Linda Baig - 08/07/2023 10:42 AM EDT Sent patient MyChart message with all sx information * Telephone Encounter - Linda Baig - 08/07/2023 10:34 AM EDT Called [facility]. Spoke with Marcela. No PA required. Ref# [id number] * Telephone Encounter - Linda Baig - 08/06/2023 10:03 AM EDT Sent to [facility] * Telephone Encounter - Linda Baig - 08/05/2023 1:42 PM EDT ----- Message from Merlin Johnson ATC sent at 08/05/2023 1:36 PM EDT ----- DERIC SURGERY SCHEDULING SLIP Patient: Yodit Landin Date of : 1955 Date of Surgery: 09/03/23 @ 9:30am Day of Surgery: Friday Hospital: [place] Duration: 60 min Type: Outpatient PAT: Yes 08/26@[facility]@10:00pm Med Clearance: No Anesthesia: MAC/Local Block: None Position: Supine Table: Stretcher Arm Board: Roll-up arm table Radiology: None CPT Code: 10035 DX Code: M67.431 Case # [id number] Consent: right volar radial Wrist mass excision FollowUp: Biro in 10-14 days XRays: no OT Splint needed at first PO appointment: no Special Requests Hand tray [place] blade Vessel loops available but not open 3.0 monocryl 4.0 nylon Small xeroform Splint material 4 inch plaster documented in this encounterSKing's Daughters [facility] Center [id number] Telephone encounter Note* Telephone Encounter - Linda Baig - 08/07/2023 10:34 AM EDT Called [facility]. Spoke with Marcela. No PA required. Ref# [id number] [facility] [id number] Telephone encounter Note* Telephone Encounter - Linda Baig - 08/06/2023 10:03 AM EDT Sent to [facility] [id number] Telephone encounter Note* Telephone Encounter - Linda Baig - 08/05/2023 1:42 PM EDT ----- Message from Merlin Johnson ATC sent at 08/05/2023 1:36 PM EDT ----- DERIC SURGERY SCHEDULING SLIP Patient: Yodit Landin Date of : 1955 Date of Surgery: 09/03/23 @ 9:30am Day of Surgery: Friday Hospital: [place] Duration: 60 min Type: Outpatient PAT: Yes 08/26@[facility]@10:00pm Med Clearance: No Anesthesia: MAC/Local Block: None Position: Supine Table: Stretcher Arm Board: Roll-up arm table Radiology: None CPT Code: 10116 DX Code: M67.431 Case # [id number] Consent: right volar radial Wrist mass excision FollowUp: Biro in 10-14 days XRays: no OT Splint needed at first PO appointment: no Special Requests Hand tray [place] blade Vessel loops available but not open 3.0 monocryl 4.0 nylon Small xeroform Splint material 4 inch plaster [facility] [id number] History of Present illness Narrative* Austin Leos MD - 08/05/2023 1:00 PM EDT Images from the original note were not included. [facility] SPORTS MEDICINE [address] [place] [address] Dept: [phone] Dept 08/05/2023 Chief Complaint Patient presents with [...] compartment release) surgery by Dr. Woo in [place] in 2022 MRI: No Has not had an MRI Patient reports that she has had bilateral wrist masses for the past year. She states she previously underwent surgery to remove one of her wrist masses on her right side however it recurred. She hasnot had any treatments on her left side. She takes ffvg-rdl-noxrlza pain medicine for other problems and helps [...] Size: 2 cm X 2 cm- right, [id number] left Location: radial, volar Depth: superficial Mobility: [...] plan. She will follow-up with my physician executive assistant to president postoperatively. I had an extensive discussion with Ms. Yodit Landin and any family members present regarding the natural history, etiology, and senior care consequences of her condition. I have outlined [...] Follow-up: Yodit will followup with my physician executive assistant to president, Nadya Harkins PA-C post operatively. She knows to call the office with any questions or concerns in the interim. Future Imaging: NONE Austin Leos MD Hand, Plastic, and Reconstructive Surgery [facility] Department of Orthopedics and Sports Medicine 08/05/2023 at 1:13 PM (Please note that portions of this note may have been completed with a voice recognition program. Efforts were made to edit the dictations but occasionally words are mis-transcribed.) documented in this [facility]03-12-2024 Instructions* Patient Instructions* Merlin Johnson ATC - 08/05/2023 1:00 PM EDT Linda Houser Record Retrieval Specialist for Dr. Austin Leos F: [phone] documented in this [facility]02-29-2024 Evaluation + Plan note* Assessment & Plan Note - ASAF Ramos CNP - 07/24/2023 11:20 AM ESTAssociated Problem(s): Other specified hypothyroidism Stable. Continue levothyroxine 75 mcg daily [facility] [id number] Miscellaneous Notes* Assessment & Plan Note - [...] without complication, without long-term current useof insulin ([facility]/HCC) (HCC) Controlled. Continue metformin 1000 mg twice daily * Assessment & Plan Note - ASAF Ramos CNP - 07/24/2023 11:07 AM ESTAssociated Problem(s): Hypertension Controlled. Continue irbesartan 300 mg daily * Assessment & Plan Note - ASAF Ramos CNP - 07/24/2023 11:07 AM ESTAssociated Problem(s): Hereditary hemochromatosis (HCC) Has been stable. Check cbc, iron levels today. documented in this [facility]02-29-2024 Evaluation + Plan note* Assessment & Plan Note - ASAF Ramos CNP - 07/24/2023 11:10 AM ESTAssociated Problem(s): Bilateral foot pain Previously had orthotics which alleviated the problem- refer to podiatry for evaluation and treatment [facility]02-29-2024 Evaluation + Plan note* Assessment & Plan Note - ASAF Ramos CNP - 07/24/2023 11:09 AM ESTAssociated Problem(s): Mass of joint of right wrist Most likely ganglion cyst. Follow up with ortho as scheduled. [facility]02-29-2024 Evaluation + Plan note* Assessment & Plan Note - ASAF Ramos CNP - 07/24/2023 11:08 AM ESTAssociated Problem(s): Type 2 diabetes mellitus without complication, without long-term current useof insulin ([facility]) ([facility]) Controlled. Continue metformin 1000 mg twice daily [facility]02-29-2024 Evaluation + Plan note* Assessment & Plan Note - ASAF Ramos CNP - 07/24/2023 11:07 AM ESTAssociated Problem(s): Hypertension Controlled. Continue irbesartan 300 mg daily [facility]02-29-2024 Evaluation + Plan note* Assessment & Plan Note - ASAF Ramos CNP - 07/24/2023 11:07 AM ESTAssociated Problem(s): Hereditary hemochromatosis (HCC) Has been stable. Check cbc, iron levels today. [facility] [id number] History of Present illness Narrative* Dian Stuart - 07/24/2023 10:00 AM EST Patient was identified by name and Date of . Venipuncture completed Patient was identified by name and date of -orders verified in [facility]. Site cleansed with alcohol swab and using a sterile needle, left AC accessed per [facility]'s policy and procedure. Bandage applied to site [...] Fasting usually less than 120 consistantly. Last llktymdhfsD4x was 6.8. Currently on metformin daily Ganglion [...] the problem. Would like referral to a retail sales manager. Denies any numbness or tingling of the [...] CNP 07/24/2023 11:21 AM documented in this [facility]02-29-2024 Instructions* Patient Instructions* ASAF Ramos CNP - 07/24/2023 10:[address] [facility]. documented in this [facility]02-06-2024 Discharge summary Author Juan Jose Stallworth [facility] July 01, 2023 8:05pm Note Date/Time July 01, 2023 6 :59pm [facility] Medical Records Department [address] [place] [address] Emergency Department Summary 07/01/23 MR#: [id number] Acct: [id number] Name: YODIT LANDIN Rep #:[id number] : [id number] 67 From: Juan Jose Stallworth [...] or vaginal complaints. She denies abdominal pain. [facility] Medical History (Updated 07/01/23 @ 20:02 by [...] Reports moist mucous membranes HEENT Narrative: Positive Cranks-Hallpike. Nystagmus noted. normocephalic and atraumatic Eyes PERRL [...] this. I was able to log into Interview, and I was not able to find [...] % (Auto) 52.3 Lymph % (Auto) 31.6 Alexander % (Auto) 12.1 H Eos % (Auto) [...] Sl. Cloudy Urine pH 5.0 Ur Specific Henryetta 1.020 Urine Protein 15 H Urine Glucose [...] problems, contact your Primary Care Provider. Call [facility] ([phone]) or report to the closest Emergency Room. Call 911 if necessary. 07/01/232004 <Electronically signed by Juan Jose Stallworth DO> Cosigner Signature (if applicable): CC: No Primary Care Physician ~ Signed [facility] Work Phone: [phone] 984-451001-16-2024 Telephone encounter Note* Telephone Encounter - 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, ASAF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 - 06/10/2023 7:28 AM EST Received xray results. Please notify patient, No bony mass. Recommend seeing psych specialist (previously referred) for further evaluation as may need an MRI to further evaluate. (This will be ordered by them if needed). [id number] Miscellaneous Notes* Telephone Encounter - ASAF Ramos CNP - 06/10/2023 7:28 AM EST Received xray results. Please notify patient, No bony mass. Recommend seeing psych specialist (previously referred) for further evaluation as may need an MRI to further evaluate. (This will be ordered by them if needed). * Telephone Encounter - Emily Kingsley MA - 06/09/2023 10:18 AM EST Noted. * Telephone Encounter - Coty Smith - 06/09/2023 9:45 AM EST See previous TE from today Name of caller: Yodit Contact phone number: [phone] Relationship to Patient: patient Provider: Dr Key [...] return their call: N/A documented in this [facility]01-15-2024 Telephone encounter Note* Telephone Encounter - Emily Kingsley MA - 06/09/2023 10:18 AM EST Noted. [facility] [id number] Telephone encounter Note* Telephone Encounter - Coty Smith - 06/09/2023 9:45 AM EST See previous TE from today Name of caller: Yodit Contact phone number: [phone] Relationship to Patient: patient Provider: Dr Key [...] business hours to return their call: N/A [facility] [id number] Evaluation + Plan note* Assessment & Plan Note - ASAF Ramos CNP - 06/04/2023 3:20 PM ESTAssociated Problem(s): Mass of joint of right wrist Suspect ganglion cyst of the right wrist. Will obtain imaging to rule out anything worrisome. Continue compression sleeve. Referral placed to orthopedics for further evaluation and treatment due to size and bothersome. [facility] [id number] Miscellaneous Notes* Assessment & Plan Note - ASAF Ramos CNP - 06/04/2023 3:20 PM ESTAssociated Problem(s): Mass of joint of right wrist Suspect ganglion cyst of the right wrist. Will obtain imaging to rule out anything worrisome. Continue compression sleeve. Referral placed to orthopedics for further evaluation and treatment due to size and bothersome. documented in this [facility]01-10-2024 History of Present illness Narrative* Dian Stuart - 06/04/2023 1:20 PM EST Patient was identified by name and Date of . * 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, ROOF TILE LAYER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 - 06/04/2023 1:20 PM EST Images from [...] of carpal tunnel surgery in 06/2022 in [place] on the right wrist. Prior to Admission [...] CNP 06/04/2023 3:21 PM documented in this [facility]11-29-2023 Evaluation + Plan note* Assessment & Plan Note - ASAF Ramos CNP - 04/23/2023 1:24 PM ESTAssociated Problem(s): Hypertension Blood pressure initially elevated. Continue current medications and follow-up for labs [facility] [id number] Miscellaneous Notes* Assessment & Plan Note - [...] Will check hemoglobin A1c documented in this [facility]11-29-2023 Evaluation + Plan note* Assessment & Plan Note - ASAF Ramos CNP - 04/23/2023 1:23 PM ESTAssociated Problem(s): Hereditary hemochromatosis (HCC) Check CBC CMP TIBC iron and ferritin. Consider referral to hematology. [facility] [id number] Evaluation + Plan note* Assessment & Plan Note - ASAF Ramos CNP - 04/23/2023 1:22 PM ESTAssociated Problem(s): Type 2 diabetes mellitus without complication, without long-term current useof insulin ([facility]) ([facility]) Controlled. Glucose readings have been good that she brought in from home. Will check hemoglobin A1c [facility] [id number] History of Present illness Narrative* Dian Stuart - 04/23/2023 10:00 AM EST Patient was identified by name and Date of . Health Main: AWV-Today DEXA-declined Colon-completed in [place]([facility] x2 yrs ago)-sent MYRNA Pneumo-discuss with provider-done at visit DM foot-pended DM dental-done a year ago Zoster-stated it was completed-[facility] [address] Lung-declined RSV-declined Flu-completed at [facility] Patient was identified by name and [...] the original note were not included. [facility] [address] [facility] [address] Dept: [phone] Dept Chief Complaint: Ydoit Landin is an 67 y.o. female here [...] Also reviewed during this visit: Found an apartment/formerly [facility] [place]. Will be moving soon. Will be going [...] kg/m No results found. documented in this [facility]11-29-2023 Instructions* Patient Instructions* ASAF Ramos CNP [...] Recommendations: A preventive eye exam by an transit specialist is recommended every 1-2 years to screen for glaucoma, cataracts, macular degeneration, and other eye disorders. A preventive dental visit is recommended every 6 months. Try to get at least 150 minutes of exercise per week or 10,000 steps per day on a pedometer. You need 1200-1500mg of calcium and 5191-1514 international units of vitamin D per day. [...] Everywhere. * Pneumococcal Conjugate Vaccine (20-Valent), ADULT (Martiniquais) documented in this [facility]11-08-2023 Evaluation + Plan note* Assessment & Plan Note - ASAF Ramos CNP - 04/02/2023 12:51 PM ESTAssociated Problem(s): Primary osteoarthritis involving multiple joints Obtain records. For now we will continue indomethacin 50 mg daily for pain. [facility] [id number] Miscellaneous Notes* Assessment & Plan Note - [...] consider referral to hematology documented in this [facility]-08-2023 Evaluation + Plan note* Assessment & Plan Note - ASAF Ramos CNP - 04/02/2023 12:50 PM ESTAssociated Problem(s): Hypertension Initial blood pressure elevated 161/81. Repeat blood pressure good 132/78. Continue chlorthalidone 25 mg daily, Lasix 20 mg, irbesartan 300 mg daily. [facility] [id number] Evaluation + Plan note* Assessment & Plan Note - ASAF Ramos CNP - 04/02/2023 12:49 PM ESTAssociated Problem(s): Type 2 diabetes mellitus without complication, without long-term current useof insulin (CMS/HCC) (HCC) Controlled. Glucose readings fasting under 110 consistently per patient diabetes log. Will check hemoglobin A1c at next visit. [facility] [id number] Evaluation + Plan note* Assessment & Plan Note - ASAF Ramos CNP - 04/02/2023 12:10 PM ESTAssociated Problem(s): Hereditary hemochromatosis (HCC) Obtain records. Return for labs as scheduled (check cbc, cmp, TIBC, iron and ferritin) consider referral to hematology [facility] [id number] History of Present illness Narrative* Dian Stuart - 04/02/2023 11:00 AM EST Patient was identified by name and Date of . Health Main: AWV-needs scheduled DEXA-pended Colon-pended Covid-declined PHQ-completed Hep C-declined Tdap-declined Mammo-completed Sept Zoster-declined Pneumo-declined D[place] eye-[facility] [place] Flu-completed [facility] MYRNA SENT TO [facility](PCP) AND [facility] * ASAF Ramos CNP [...] complication, without long-term current use of insulin ([facility]/HCC) (HCC) Assessment & Plan: Controlled. Glucose readings [...] as new patient, previous primary care provider [place] provider, last seen? -01/2023 by previous provider. Specialists/other providers? 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 Chief complaint(s): New Patient and Health Maintenance (AWV-needs scheduled/DEXA-pended/Colon-pended/Covid-declined/PHQ-completed/Hep C-declined/Tdap-declined/Mammo-completed Jan/Zoster-declined/Pneu mo-declined/Flu-completed [facility]) Has been out of state for about 10 years. 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 Recently moved back to [place] to be close to her son and pfsfmhhj-ie-iuw whom she states were having some marital [...] Reports she did have a colonoscopy last [phone] in [place]-reports she was told it was normal -jodi [...] is tolerable. Also sees a chiropractor in [place]. Hypertension-states her blood pressure is normally in [...] CNP 04/02/2023 12:59 PM documented in this encounterSKing's [facility]aughters [facility] [id number] Telephone encounter Note* Telephone Encounter - Juana Alegria - 03/21/2023 9:43 AM EDT Name of caller: Yodit Landin Relation to patient: patient Contact phone number: [phone] Appointment scheduled with: 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 Appointment date [...] provider should be aware of: diabetic, hemochromatosis [facility] [id number] Miscellaneous Notes* Telephone Encounter - Juana Alegria - 03/21/2023 9:43 AM EDT Name of caller: Yodit Landin Relation to patient: patient Contact phone number: [phone] Appointment scheduled with: 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 Appointment date [...] aware of: diabetic, hemochromatosis [facility] No data available for this section [facility] Evaluation note* Diagnosis Type 2 diabetes mellitus without complication, without long-term current use of insulin (CMS/HCC) (HCC)- Primary Hereditary hemochromatosis (HCC) Hereditary hemochromatosis Primary hypertension Unspecified essential hypertension [facility]* Diagnosis Routine general medical examination at health care facility- Primary Routine general medical examination at a health care facility Type 2 diabetes mellitus without complication, without long-term current use of insulin (CMS/HCC) (HCC) Primary hypertension Unspecified essential hypertension Hereditary hemochromatosis (HCC) Hereditary hemochromatosis Hypothyroidism, unspecified type Immunization due documented in this encounter [facility]* Diagnosis Mass of joint of right wrist- Primary documented in this encounter [facility]* Diagnosis Onset Date Resolution Status Dehydration acute Nausea vomiting and diarrhea acute Orthostasis acute [facility] Work Phone: Evwbmlxiea note* Diagnosis Hereditary hemochromatosis (HCC)- Primary Hereditary hemochromatosis Primary hypertension Unspecified essential hypertension Type 2 diabetes mellitus without complication, without long-term current use of insulin (CMS/HCC) (HCC) Bilateral foot pain Mass of joint of right wrist Other specified hypothyroidism [facility]* Diagnosis Mass of joint of right wrist Ganglion, right wrist documented in this encounter [facility]* Diagnosis Mass of joint of right wrist- Primary Ganglion, right wrist [facility]* Diagnosis Mass of joint of right wrist- Primary Ganglion, right wrist documented in this encounter [facility]* Diagnosis H/O excision of mass- Primary Ganglion, right wrist documented in this encounter [facility] note* Diagnosis Visit for wound check- Primary documented in this encounter [facility] note* Diagnosis S/P excision of ganglion cyst- Primary Mass of joint of right wrist documented [facility]* Diagnosis Mass of joint of right wrist S/P excision of ganglion cyst documented in this encounter [facility] note* Diagnosis Type 2 diabetes mellitus without complication, without long-term current use of insulin (CMS/HCC) (HCC)- Primary Hereditary hemochromatosis (HCC) Hereditary hemochromatosis Swelling of both lower extremities Bilateral foot pain Primary hypertension Unspecified essential hypertension documented in this encounter [facility] note* Diagnosis Mass of joint of right wrist- Primary S/P excision of ganglion cyst documented in this encounter [facility]* Diagnosis Left buttock pain- Primary Unspecified myalgia and myositis Bilateral foot pain Colon cancer screening Special screening for malignant neoplasms, colon documented in this encounter [facility] note* Diagnosis Anemia, unspecified type- Primary Iron deficiency anemia, unspecified iron deficiency anemia type Primary hypertension Unspecified essential hypertension Gastroesophageal reflux disease without esophagitis Esophageal reflux Hypothyroidism, unspecified type Mixed hyperlipidemia documented in this encounter [facility] note* Diagnosis Chronic left-sided low back pain without sciatica- Primary Left buttock pain Unspecified myalgia and myositis documented in this encounter [facility]* Diagnosis Chronic left-sided low back pain without sciatica documented in this [facility]* Diagnosis Osteopenia of lumbar spine- Primary Degenerative disc disease, lumbar documented in this [facility]* Diagnosis Swelling of both lower extremities documented in this encounter [facility]* Diagnosis Osteopenia of lumbar spine- Primary Degenerative disc disease, lumbar documented in this encounter [facility]* Diagnosis Vitamin D deficiency- Primary Hypothyroidism, unspecified type documented in this encounter [facility]* Diagnosis Type 2 diabetes mellitus [...] Bilateral foot pain [facility]* Diagnosis History of tobacco use Personal history of tobacco use, presenting hazards to health documented [facility] this encounter [facility]* Diagnosis Murmur, cardiac Undiagnosed cardiac murmurs documented in this [facility]* Diagnosis Hypothyroidism, unspecified type documented in this encounter [facility]* Diagnosis Encounter for screening mammogram for malignant neoplasm of breast documented in this encounter [facility]* Diagnosis Preoperative clearance- Primary Unspecified pre-operative examination Type 2 diabetes mellitus without complication, without long-term current use of insulin (CMS/HCC) (HCC) Primary hypertension Unspecified essential hypertension [facility]* Diagnosis Preoperative clearance- Primary Unspecified pre-operative examination Type 2 diabetes mellitus without complication, without long-term current use of insulin (CMS/HCC) (HCC) Primary hypertension Unspecified essential hypertension [facility] this encounter [facility]* Diagnosis Type 2 diabetes mellitus [...] Unspecified essential hypertension [facility]* Diagnosis Type 2 diabetes mellitus [...] hypercholesterolemia Immunization due documented in this encounter [facility] note* Diagnosis Type 2 diabetes mellitus [...] right knee- Primary documented in this encounter [facility] note* Diagnosis Type 2 diabetes mellitus [...] Vitamin D deficiency documented in this encounter [facility] note* Diagnosis Type 2 diabetes mellitus [...] Hypothyroidism, unspecified type documented in this encounter [facility] Discharge instructions No data available for this section [facility] Progress note No data available for this section [facility] Reason for referral (narrative)* Consultation (Routine) - Pending Review Specialty Diagnoses / Procedures Referred By Moody bey Referred To Contact Orthopedic Surgery Diagnoses Mass of joint of right wrist 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 APRN - CNP [address] [place] [address] [facility] [place] [address] [place] [address] Referral ID Status Reason Start Date Expiration Date Visits Requested Visits Authorized [id number] Pending Review Specialty Services Required 06/04/2023 06/03/2024 1 1 [facility] for referral (narrative)* Consultation (Routine) - Pending Review Specialty Diagnoses / Procedures Referred By Moody bey Referred To Contact Podiatry Diagnoses Bilateral foot pain Procedures [place] OFFICE/OUTPATIENT [facility] 60 MINUTES 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 APRN - CNP [address] [place] [address] [place] [address] Alvin Beltran, DPOlivia [address] [place] [address] Referral ID Status Reason Start Date Expiration Date Visits Requested Visits Authorized [id number] Pending Review Specialty Services Required 07/24/2023 07/23/2024 1 1 Mani Frey for referral (narrative)* Consultation (Routine) - Pending Review Specialty Diagnoses / Procedures Referred By Moody t Referred To Contact Orthopedic Surgery Diagnoses Degenerative disc disease, lumbar 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 APRN - CNP [address] [place] [address] [place] [address] Yanick Meléndez [facility] [place] [address] Referral ID Status Reason Start Date Expiration Date Visits Requested Visits Authorized [id number] Pending Review Specialty Services Required 12/29/2023 12/28/2024 1 1 Mani Frey for referral (narrative)No reason for referral information availableWKing's Daughters [facility] [place] Work Phone: Summary Purpose Family History No Family History Records Found Advance Directives No Advanced Directives Records Found Advance Directive Response Recorded Date/ Time Living Will No July 01 5:51pm Power of Slag Mixer No July 01, 2023 5:51pm Latest Code [...] Do you have a Healthcare Power of Slag Mixer? No December 31, 2023 2:55pm Chief Complaint [...] with contrast, bubble, strain, and 3D PRN MN ECHO TTHRC R-T 2D W/WOM-MODE COMPL SPEC&COLR D MN TTE W OR WO FOL WCON,DOPPLER Karrieenthal, Sedrick, ROOF TILE LAYER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 [address] [facility] [place] [address] [place] [address] Referral ID Status Reason Start Date Expiration Date V isits Requested Visits Authorized [id number] Pending Review 01/21/2024 01/20/2025 1 1 Specialty Diagnoses / Procedures Referred By Contac t Referred To Contact Radiology Diagnoses History of tobacco use Procedures CT lung screening low dose Bridenthal, Sedrick, ROOF TILE LAYER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 [address] [facility] [place] [address] [place] [address] Referral ID Status Reason Start Date Expiration Date V isits Requested Visits Authorized [id number] Pending Review 01/21/2024 01/20/2025 1 1 Specialty Diagnoses / Procedures Referred By Moody t Referred To Contact Occupational Therapy Diagnoses Mass of joint of right wrist S/P excision of ganglion cyst Procedures [place] OFFICE/OUTPATIENT NEW [facility] 60 MINUTES Nadya Harkins PA-C [address] [facility] [address] [place] [address] Referral ID Status Reason Start Date Expiration Date Visits Requested Visits Authorized [id number] Pending Review Eval and Treat 10/14/2023 10/13/2024 99 99 Additional Source Comments Reason for Visit (unrecogniz ed section and content) Reason Onset Date Comments New Patient 03/21/2023 Reason Comments New Patient Health Maintenance AWV-needs fgmgxbvqpTCGV-hapnzbEifbz-zdvrdpAxdto-declinedPHQ-completedHep I-mlvgbdriAjst-oxqtciiePkdnx-completed DsxiWnkiiu-gprfzfbwPpbvab-atbeyzfvGql-completed [facility] Reason Comments Medicare Annual Wellness Visit Initial Health Maintenance EOT-MjhdaARZG-vcpros edColon-completed in [place]([facility] y[facility] ago)Pneumo-discuss with providerDM foot-pendedDM dental-done a year agoMelissastisidro-stated it was [place] [address]Tmin-onaypicvYMM-fshlrpivRge-bitfuhugb at [place]: [employer] [facility] Reason Comments Cyst Bilateral-but right is the one that is painful Reason Comments Medication Check Foot Pain Pended referral Reason Comments New Patient Right wrist mass Specialty Diagnoses / Procedures Referred By Moody bey Referred To Contact Orthopedic Surgery Diagnoses Mass of joint of right wrist 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, ROOF TILE LAYER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 [address] [facility] [place] [address] [place] [address] [facility] [address] [place] [address] Referral ID Status Reason Start Date Expiration Date V isits Requested Visits Authorized [id number] Closed Specialty Services Required 06/04/2023 06/03/2024 1 1 Reason Onset Date Comments Surgery Scheduling 08/05/2023 Surgery Sched uling Reason Onset Date Comments appt with Dr. Alvin Beltran, DPM<9>on 2 :45 08/19/2023 Specialty Diagnoses / Procedures Referred By Moody bey Referred To Contact Diagnoses Ganglion, right wrist Ganglion, right wrist [M67.431] Procedures MN EXCISION GANGLION WRIST DORSAL/VOLAR PRIMARY RIGHT VOLAR RADIAL WRIST MASS EXCISION Deric, Austin Martinez MD [address] [facility] [address] [place] [address] [facility] [address] [place] [address] Referral ID Status Reason Start Date Expiration Date Visits Re quested Visits Authorized [id number] 1 1 Reason Comments Post-op Problem Bandaging [...] CT lung screening low dose Bridenthal, Sedrick, ROOF TILE LAYER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 [address] [facility] [place] [address] [place] [address] Referral ID Status Reason Start Date Expiration Date Visits Re quested Visits Authorized [id number] Closed 01/21/2024 01/20/2025 1 1 Specialty Diagnoses / Procedures Referred By Contac t Referred To Contact Cardiology Diagnoses Murmur, cardiac Procedures Transthoracic echocardiogram (TTE) complete with contrast, bubble, strain, and 3D PRN [place] ECHO TTHRC R-T 2D W/WOM-MODE COMPL SPEC&COLR D MN TTE W OR WO FOL WCON,DOPPLER Bridenthal, Sedrick, ROOF TILE LAYER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 [address] [place] [address] Referral ID Status Reason Start Date Expiration Date Visits Re quested Visits Authorized [id number] Closed 01/21/2024 01/20/2025 1 1 Reason Onset Date Comments Results 02/13/2024 Reason Comments Pre-op Exam Surgical clearance Reason Onset Date Comments Med Refill 03/25/2024 Reason Comments Medicare Annual Wellness Visit Subsequen t Blood Work Health Maintenance Tdap vaccine- agree2 nd shingles vaccine- advised to go to pharmacy Dental exam- not doneEye exam- go to [facility] [place] - will send for record Reason Onset Date Comments Knee Pain 05/24/2024 Reason Comments Knee Pain Right-started a week ago Reason Onset Date Comments Results 05/25/2024 Reason Comments Follow-up Knee Pain Reason Onset Date Comments Med Refill 09/22/2024 Reason Onset Date Comments Medication Question 09/22/2024 Care Teams (unrecognized sec tion and content) Roof Bolter Operator Relationship Specialty Start Date [place] [address] PCP - General Family Medicine 04/02/23 Roof Bolter Operator Relationship Specialty Start Date End Date Moshe [facility] [place] [address] PCP - General Family Medicine 04/02/23 Roof Bolter Operator Relationship Specialty Start Date End Date Moshe Key [facility] [place] [address] PCP - General Family Medicine 04/02/23 Roof Bolter Operator Relationship Specialty Start Date End Date Moshe Key [facility] [place] [address] PCP - General Family Medicine 04/02/23 Team Status: Active Member Role Status Dates No Primary Care Physician Primary Care Provider Active Team Status: Inactive Member Role Status Dates Gerry Gray PA, PA Attending Provider Active Team Status: Inactive Member Role Status Dates Dr. Juan Jose Stallworth , DO Emergency Provider Active No Primary Care Physician Primary Care Provider Active Roof Bolter Operator Relationship Specialty Start Date End Date Moshe Key MD [address] [place] [address] PCP - General Family Medicine 04/02/23 Roof Bolter Operator Relationship Specialty Start Date [place] [address] PCP - General Family Medicine 04/02/23 Roof Bolter Operator Relationship Specialty Start Date [place] [address] PCP - General Family Medicine 04/02/23 Roof Bolter Operator Relationship Specialty Start Date [place] [address] PCP - General Family Medicine 04/02/23 Roof Bolter Operator Relationship Specialty Start Date [place] [address] PCP - General Family Medicine 04/02/23 Roof Bolter Operator Relationship Specialty Start Date End Date Moshe Key MD [address] [place] [address] PCP - General Family Medicine 04/02/23 Roof Bolter Operator Relationship Specialty Start Date End Date 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 ROOF TILE LAYER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 [address] [place] [place] [address] PCP - General Nurse Practitioner Family 09/03/23 Roof Bolter Operator Relationship Specialty Start Date End Date Moshe Key MD [address] [facility] [place] [address] PCP - General Family Medicine 09/04/23 Roof Bolter Operator Relationship Specialty Start Date End Date Moshe Key MD [address] [facility] [place] [address] PCP - General Family Medicine 09/04/23 Roof Bolter Operator Relationship Specialty Start Date End Date Moshe Key MD [address] [facility] [place] [address] PCP - General Family Medicine 09/04/23 Roof Bolter Operator Relationship Specialty Start Date End Date Moshe Key MD [address] [facility] [place] [address] PCP - General Family Medicine 09/04/23 Roof Bolter Operator Relationship Specialty Start Date End Date Moshe Key MD [address] [facility] [place] [address] PCP - General Family Medicine 09/04/23 Roof Bolter Operator Relationship Specialty Start Date End Date Moshe Key MD [address] [facility] [place] [address] PCP - General Family Medicine 09/04/23 Roof Bolter Operator Relationship Specialty Start Date End Date Moshe Key MD [address] [place] [address] PCP - General Family Medicine 09/04/23 Roof Bolter Operator Relationship Specialty Start Date End Date Moshe Key MD [address] [facility] [place] [address] PCP - General Family Medicine 09/04/23 Roof Bolter Operator Relationship Specialty Start Date End Date Moshe Key MD [address] [facility] [place] [address] PCP - General Family Medicine 09/04/23 Roof Bolter Operator Relationship Specialty Start Date End Date Moshe Key MD [address] [facility] [place] [address] PCP - General Family Medicine 09/04/23 Roof Bolter Operator Relationship Specialty Start Date End Date Moshe Key MD [address] [facility] [place] [address] PCP - General Family Medicine 09/04/23 Roof Bolter Operator Relationship Specialty Start Date End Date Moshe Key MD [address] [facility] [place] [address] PCP - General Family Medicine 09/04/23 Roof Bolter Operator Relationship Specialty Start Date End Date Moshe Key MD [address] [facility] [place] [address] PCP - General Family Medicine 09/04/23 Roof Bolter Operator Relationship Specialty Start Date End Date Moshe Key MD [address] [facility] [place] [address] PCP - General Family Medicine 09/04/23 Roof Bolter Operator Relationship Specialty Start Date End Date Moshe Key MD [address] [facility] [place] [address] PCP - General Family Medicine 09/04/23 Roof Bolter Operator Relationship Specialty Start Date End Date Moshe Key MD [address] [facility] [place] [address] PCP - General Family Medicine 09/04/23 Roof Bolter Operator Relationship Specialty Start Date End Date Moshe Key MD [facility] [place] [address] PCP - General Family Medicine 09/04/23 Roof Bolter Operator Relationship Specialty Start Date End Date Moshe Key MD [facility] [place] [address] PCP - General Family Medicine 09/04/23 Roof Bolter Operator Relationship Specialty Start Date End Date Moshe Key MD [address] [place] [address] [place] [address] PCP - General Family Medicine 09/04/23 Roof Bolter Operator Relationship Specialty Start Date End Date Moshe Key MD [address] [facility] [place] [address] PCP - General Family Medicine 09/04/23 Roof Bolter Operator Relationship Specialty Start Date End Date Moshe Key MD [address] [place] [address] [place] [address] PCP - General Family Medicine 09/04/23 Roof Bolter Operator Relationship Specialty Start Date End Date Moshe Key MD [address] [facility] [place] [address] PCP - General Family Medicine 09/04/23 Roof Bolter Operator Relationship Specialty Start Date End Date Moshe Key MD [address] [facility] [place] [address] PCP - General Family Medicine 09/04/23 Roof Bolter Operator Relationship Specialty Start Date End Date Moshe Key MD [address] [facility] [place] [address] PCP - General Family Medicine 09/04/23 Roof Bolter Operator Relationship Specialty Start Date End Date Moshe Key MD [address] [facility] [place] [address] PCP - General Family Medicine 09/04/23 Roof Bolter Operator Relationship Specialty Start Date End Date Moshe Key MD [address] [facility] [place] [address] PCP - General Family Medicine 09/04/23 Roof Bolter Operator Relationship Specialty Start Date End Date Moshe Key MD [address] [facility] [place] [address] PCP - General Family Medicine 09/04/23 Roof Bolter Operator Relationship Specialty Start Date End Date Moshe Key MD [address] [facility] [place] [address] PCP - General Family Medicine 09/04/23 Roof Bolter Operator Relationship Specialty Start Date End Date Moshe Key MD [address] [facility] [address] PCP - General Family Medicine 09/04/23 Roof Bolter Operator Relationship Specialty Start Date End Date Moshe Key MD [address] [place] [address] PCP - General Family Medicine 09/04/23 Roof Bolter Operator Relationship Specialty Start Date End Date Moshe Key MD [address] [place], [place] [address] [address] PCP - General Family Medicine 09/04/23 Roof Bolter Operator Relationship Specialty Start Date End Date Moshe Key MD [address] [place], [place] [address] [address] PCP - General Family Medicine 09/04/23 Roof Bolter Operator Relationship Specialty Start Date End Date Moshe Key MD [address] [place], [place] [address] [address] PCP - General Family Medicine 09/04/23 Team [...] August 30, 2024 End: August 30, 2024 Roof Bolter Operator Relationship Specialty Start Date End Date Moshe Key MD [address] [place], [place] [id number] PCP - General Family Medicine 09/04/23 Roof Bolter Operator Relationship Specialty Start Date End Date Moshe Key MD [address] [place], [place] [id number] PCP - General Family Medicine 09/04/23 Roof Bolter Operator Relationship Specialty Start Date End Date Moshe Key MD [address] [place] [id number] PCP - General Family Medicine 09/04/23 INFORMATION SOURCE (unrecogn ized section and content) DATE CREATED AUTHOR 06/08/2023 [facility] ([place]) DATE CREATED AUTHOR AUTHOR'S ORGANIZ ATION 05/27/[address] [facility] DATE CREATED AUTHOR AUTHOR'S ORGANIZ ATION 09/28/2024 [facility] DATE CREATED AUTHOR AUTHOR'S ORGANIZ ATION 12/04/2024 [facility] Goals (unrecognized section [...] at 200 mL/hr, Administer over 30 Minutes, Assembly Supervisor to O.R., On Fri09/03/23 at 0715, For 1 dose, Preprocedure, Administer within 1 hour prior to incision. Recommend to repeat in 3-4 hours after initial dose if still intra-op. Mini-Bag Plus bag, Suspected Indication (Select all that apply): Surgical Prophylaxis 921 (New Bag - Prov ider: Alaina Rubio APRN - WORKFORCE STAFFING ADVISOR) famotidine (Pepcid) 20 mg in sodium chloride [...] hydralazine IV order. lidocaine-EPINEPHrine (Xylocaine W/EPI) 1 %-1:655200 injection (CANCELED) As needed, Starting on Fri09/03/23 [...] BE BASED ON THE PRIMARY CLINICAL RECORDS. [employer] [facility]. provides no warranty or guarantee of the accuracy or completeness of information in this document.
--- OUTSIDE RECORDS SUMMARY | 2024-12-05 17:15 | XMS RPT_ITS | CCD ---
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 Name Role Phone Unavailable Primary Care Provider UnavailMoshe Wagner MD Primary Care Provider BRIDENTHAL VERT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/ICT SUPPORT TECHNICIANS, SEDRICK Primary Care Physic vu BRIDENTHAL VERT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/ICT SUPPORT TECHNICIANS, SEDRICK Attending Farnaz vailable BRIDENTHAL VERT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/ICT SUPPORT TECHNICIANS, SEDRICK Primary Care Farnaz vailable Isaac DURAND, KIZZY Baker Attending Provider Bridenthal VERT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 - ICT SUPPORT TECHNICIANS, Sedrick Primary Care Prov ider Moshe Key MD Primary Care Provider BRIDENTHAL VERT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/ICT SUPPORT TECHNICIANS, SEDRICK Attending Farnaz vailable BRIDENTHAL VERT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/ICT SUPPORT TECHNICIANS, SEDRICK Primary Care Farnaz vailable Dr. Moshe [...] Unavailable Yesi, Moshe Primary Care Unavailable Jonah, Alstead Attending Unavailable Yesi, Moshe Primary Care Unavailable Jonah, Cheo Attending Unavailable Yesi, Moshe Primary Care Unavailable Morton, Arnold Attending Unavailable Yesi, Moshe Referring Unavailable Morton, Arnold Referring Unavailable Morotn, Arnold Admitting Unavailable Morton, Arnold Attending Unavailable [...] No Primary Primary Care Unava ilable Jonah, Alstead Attending Unavailable Yesi, Moshe Primary Care Unavailable Morton, Arnold Attending Unavailable Yesi, Moshe Referring Unavailable Yesi, Moshe Primary Care Unavailable Yesi, Moshe Referring Unavailable Tabby Do Attending Unavailable Yesi, Moshe Primary Care Unavailable Jonah, Alstead Attending Unavailable BRIDENTHAL, SEDRICK Attending Unavailable YESI, [...] Drug Allergy 07-01-19 24 Nausea And Vomiting [facility] Opioid Agonists (1 source) Codeine Drug Allergy 04-02-20 23 Dizziness, Vomiting Only, Nausea And Vomiting [facility] Sulfamethoxazole / Trimethoprim (1 source) Sulfamethoxazole / Trimethoprim Drug Allergy 04-02-20 23 Vomiting Only [facility] (20 sources) Codeine Drug Allergy 04-02-20 23 Dizziness, Vomiting Only, Nausea And Vomiting [facility] (20 sources) Sulfamethoxazole / Trimethoprim Drug Allergy 04-02-20 23 Vomiting Only [facility] (2 sources) Sulfamethoxazole Drug Allergy 07-01-19 24 Vomiting [facility] (20 sources) Trimethoprim Drug Allergy 07-01-19 24 Nausea And Vomiting [facility] (20 sources) Sulfamethoxazole Allergy to substance 07-01-19 24 Nausea And Vomiting [facility] (1 source) Codeine Drug Allergy 09-24-19 25 [facility] Repository (1 source) Sulfamethoxazole Drug Allergy 09-24-19 25 [facility] (1 source) Trimethoprim Drug Allergy 09-24-19 25 [facility] Repository Medications Current Medications Medication Drug [...] every week ergocalciferol (Vitamin D-2) 1.25 MG (83342 UT) capsule Indications: Vitamin D deficiency Take [...] 3 tablets daily po 0 Active nystatin 842435 unt/ml topical cream (20 sources) Polyene Antifungal [...] nystatin (Mycostatin) cream 10/22/2022 12/09/2023 Discontinued (Reorder) [place] 6-Ocu-Lwt-Fish Oil (Fish Oil) 1,200 (144-216) mg capsule (1 source) Start: 01-16-2024 [place] 6-Afe-Sfo-Fish Oil (Fish Oil) 1,200 (144-216) mg capsule [...] 20 tablet 0 09/03/2023 09/08/2023 Active Vit Y-N-T0-Pruy-L-Bkaf- Quercet (Immune Essentials Daily) 750 mcg-150 mg- 31.25 mcg capsule (1 source) Start: 03-15-2024 Vit T-N-D3-Tfjd-K-Nvpb-Querc et (Immune Essentials Daily) 750 mcg-150 mg- [...] mg docusate sodium 50 mg / sennosides, long term 8.6 mg oral tablet (1 source) Start: [...] Results Test Name Value Interpretation Reference Range [facility] 3611-30-2024 36 Reviewed chart. Refi ll appropriate. RX sent. [facility] 36on 11-10-2024 36 Reviewed chart. Refi ll appropriate. RX sent. [facility] 36 Prescription Request : Last medication check: 06/28/24 Last physical exam: 05/04/24 Next scheduled appointment: 05/05/25 Last date of refill on this medication: omeprazole 06/10/24 Furosemide 12/29/23 Normal [facility] Orthopedic Visit Reporton Orthopedic Visit Report [facility] [address] [place] [address] [address] [place] [address] OFFICE VISIT Date of Service: 09/23/24 MR#: [id number] Acct: [id number] Name: YODIT LANDIN Rep #: [id number] : 1955 Provider: Dr. Arnold Morton MD Age/Sex: 69/F Location[place] [facility] Status: Signed Intake Vital Signs 03/29/24 13:35 [...] mg PO .QAM 01/16/24 09/23/24 History omega 9-kkg-tow-fish oil 1,200 mg 1 cap PO DAILY [...] PO TID 03/15/24 09/23/24 His tory 31.25 owi-wcyx-bbvgyfbbb-quer cet capsule (Immune Essentials Daily) acetaminophen 500 [...] by me, Dr. Arnold Morton MD 09/23/24 7545. Part of today???s visit was documented by [...] 5=normal Detail (more content not included)... Normal [facility] 3609-22-2024 36 error [facility] 36 S: The patient is calling the [facility] about the cholesterol B: Reviewed the [...] question Protocols used: Medication Refill and Renewal [id number]-[id number]-RK [facility] 36on 09-02-2024 36 Prescription Request : Rosuvastatin Calcium 10 MG Oral Tablet Fenofibrate 160 MG Oral Tablet Last medication check: 06/28/24 Last physical exam: 05/04/24 Next scheduled appointment: 05/05/25 Last date of refill on this medication Rosuvastatin - 08/06/24 (Qty 90 refill 1) Fenofibrate - 08/06/24 (qty 90 refill 1) Normal [facility] Magnetic resonance imaging r eportOrdered By: Casey Prieto on 08-31-2024 Study report [facility] Imaging Services [address] [place] [address] Spine Cervical (Routine) MR#: [id number] Acct: [id number] Name: YODIT LANDIN Rep #: [id number] : 1955 F 69 From: Yuki Prieto DO PCP: Dr. Moshe Key MD Status: REG CLI Study:Spine Cervical (Routine) Date of Exam: 08/30/24 Exam# [id number] Ordering Dr: Berenice Morton MD PROCEDURE: Noncontrast [...] indents the ventral thecal sac and causes nyhw-me-uprhsgyu central spinal canal narrowing. No focal disc herniation. Mild bilateral neural foraminal narrowing, greatest on the left. C4-5: A lobulated disc bulge indents the ventral thecal sac and causes severe central spinal canal narrowing. No focal disc herniation. No significant neural foraminal narrowing. C5-6: Lobulated disc bulge indents the ventral thecal sac and causes kpqdvzwk-zs-tqxxaq central spinal canal narrowing. No focal disc herniation. No significant right neural foraminal narrowing. Moderate left neural foraminal narrowing. C6-7: Asymmetric right posterior disc osteophyte complex causes fpyzmkxn-ga-ckozbl right central spinal canal narrowing. Mild left and severe right neural foraminal narrowing. C7-T1: Mild lobulated asymmetric right disc bulge causes mild right central spinal canal narrowing. No large focal disc herniation. Mild left and moderate right neural foraminal narrowing. T1-2: There is some there is a moderate disc protrusion/extrusion at this level,which indents the ventral thecal sac and causes xlareeqc-dq-izdcki central spinal canal narrowing. There appears to [...] a moderate/severe degree at C5-6 and C6-7. Ujrovafp-vp-kvhzli central spinal canal narrowing due to posterior disc extrusion at T1-2. Multilevel neural foraminal narrowing as described level by level above. Reading Location: [facility] CC: Dr. Arnold Morton MD; Dr. Moshe Key MD ~ Supervisor Beam Department: Signed [facility] Spine Cervical (Routine)on 0 08-30-2024 Spine Cervical (Routine) [facility] Imaging Services [address] [place] [id number] Spine Cervical (Routine) MR#: [id number] Acct: [id number] Name: YODIT LANDIN VIVIAN Rep #: [id number] : 1955 F 69 From: Casey Mosqueda i, DO PCP: Dr. Moshe Key MD Status: REG CLI Study: Spine Cervical (Routine) Date of Exam: Exam# [id number] Ordering Dr: Arnold Morton MD PROCEDURE: Noncontrast [...] indents the ventral thecal sac and causes hdsg-ja-ktyaswal central spinal canal narrowing. No focal disc herniation. Mild bilateral neural foraminal narrowing, greatest on the left. C4-5: A lobulated disc bulge indents the ventral thecal sac and causes severe central spinal canal narrowing. No focal disc herniation. No significant neural foraminal narrowing. C5-6: Lobulated disc bulge indents the ventral thecal sac and causes lrexszvk-xy-oaxygk central spinal canal narrowing. No focal disc herniation. No significant right neural foraminal narrowing. Moderate left neural foraminal narrowing. C6-7: Asymmetric right posterior disc osteophyte complex causes lrnzybzp-aq-bjswov right central spinal canal narrowing. Mild left and severe right neural foraminal narrowing. C7-T1: Mild lobulated asymmetric right disc bulge causes mild right central spinal canal narrowing. No large focal disc herniation. Mild left and moderate right neural foraminal narrowing. T1-2: There is some there is a moderate disc protrusion/extrusion at this level, which indents the ventral thecal sac and causes ppoyuwxa-tz-yodjqk central spinal canal narrowing. There appears to [...] a moderate/severe degree at C5-6 and C6-7. Towslcnx-li-ojobcl central spinal canal narrowing due to posterior disc extrusion at T1-2. Multilevel neural foraminal narrowing as described level by level above. Reading Location: [facility] CC: Dr. Arnold Morton MD; Dr. Moshe Key MD Supervisor Beam Department: Signed [place] [address]on 08-06-2024 36 Prescriptions sent. Follow-up as scheduled. [facility] 36 Wants both prescriptions sent into [facility]--RX pended. [facility] 36 ----- Message from ASAF Meneses CNP sent at 08/06/2024 6:04 AM EDT ----- Cholesterol levels have improved. Continue current dose of Rosuvastatin and Fenofibrate. Does she need refills? Liver enzymes are normal. [place] [address]on 08-05-2024 36 Reviewed chart. Refi ll appropriate. RX sent. [facility] Progress Noteon 08-05-2024 Progress Note Lab/venipuncture completed by Balaya [place] [address]on 08-04-2024 36 Lab draw tomorrow [facility] 36 Prescription Request : Last medication check: 06-28-24 Last physical exam: 05-04-24 Next scheduled appointment: 05-05-25 Last date of refill on this medication 07-07-24 [facility] Cerv Spine 4 or 5 Viewson Cerv Spine 4 or 5 Views [facility] Imaging Services [address] [place] [address] Cerv Spine 4 or 5 Views MR#: [id number] Acct: [id number] Name: YODIT LANDIN Rep #: [id number] : 1955 F 69 From: Basim Vargas MD PCP: Dr. Moshe Key MD Status: DEP AMB Study: Cerv Spine 4 or 5 Views Date of Exam: 07/30/24 Exam# [id number] Ordering Dr: Enriqueta Houston PROCEDURE: CERV SPINE [...] No signs of cervical instability. Reading Location: [place] [address] CC: KIZZY Hebert; Dr. Moshe Key MD Supervisor Beam Department: Signed Normal [facility] Orthopedic Visit Reporton Orthopedic Visit Report [facility] [address] [place] [address] OFFICE VISIT Date of Service: 07/30/24 MR#: [id number] Acct: [id number] Name: YODIT LANDIN Rep #: [id number] : 1955 Provider: Dr. Arnold Morton MD Age/Sex: 69/F Location[place] [facility] Status: Signed Intake Vital Signs 03/29/24 13:35 [...] mg PO .QAM 01/16/24 07/30/24 History omega 4-qpw-xzr-fish oil 1,200 mg 1 cap PO DAILY [...] PO TID 03/15/24 07/30/24 His tory 31.25 nks-coav-kyspafvqy-quer cet capsule (Immune Essentials Daily) acetaminophen 500 [...] 35 As (more content not included)... Normal [facility] Orthopedic Visit Reporton Orthopedic Visit Report [facility] [address] [place] [address] OFFICE VISIT Date of Service: 07/28/24 MR#: [id number] Acct: [id number] Name: YODIT LANDIN Rep #: [id number] : 1955 Provider: DENISE braun Age/Sex: 69/F Location: [facility] Status: Signed Intake Vital Signs 03/29/24 13:35 [...] mg PO .QAM 01/16/24 07/28/24 History omega 4-pwv-eee-fish oil 1,200 mg 1 cap PO DAILY [...] PO TID 03/15/24 07/28/24 His tory 31.25 vvh-pumh-wtgkssuma-quer cet capsule (Immune Essentials Daily) acetaminophen 500 [...] Denies easy ble (more content not included)... [facility] 07-19-2024 36 Just refilled to requested pharmacy last month for a 90 day supply plus one refill. [place] [address] Prescription Request : Last medication check: 01/21/24 Last physical exam: 05/04/24 Next scheduled appointment: 05/05/25 Last date of refill on this medication Irbesartan 05/03/24, chlorthalidone 05/03/24, Atrovent 07/05/24 [place] [address] Prescription Request : Last medication check: 01/21/24 Last physical exam: 05/04/24 Next scheduled appointment: 05/05/25 Last date of refill on this medication 06/04/24 [place] [address]on 07-07-2024 36 Atorvastatin removed from medication list. Rx sent for Rosuvastatin. Future lab orders signed. Thank you. [place] [address] Notified, agreeable, orders pended, patient is scheduled. Please send Rosuvastatin to [facility] on file. Thanks! Normal [facility] 36 I recommend switchin g from Atorvastatin to Rosuvastatin and rechecking levels again in 4 weeks. Continue current dose of Fenofibrate. Normal [facility] 36 Spoke to Yodit, she states she is taking the Fenofibrate and Atorvastatin daily. Normal [facility] Orthopedic Visit Reporton Orthopedic Visit Report [facility] [address] [place] [address] OFFICE VISIT Date of Service: 07/07/24 MR#: [id number] Acct: [id number] Name: YODIT LANDIN VIVIAN Rep #: [id number] : 1955 Provider: DENISE braun Age/Sex: 68/F Location[place] [facility] Status: Signed Intake Vital Signs 03/29/24 13:35 [...] mg PO .QAM 01/16/24 07/07/24 History omega 0-onj-pxv-fish oil 1,200 mg 1 cap PO DAILY [...] PO TID 03/15/24 07/07/24 His tory 31.25 syw-vkna-gblmiltnp-quer cet capsule (Immune Essentials Daily) acetaminophen 500 [...] her PCP off (more content not included)... [facility] 07-06-2024 36 ----- Message from ASAF Meneses CNP sent at 07/06/2024 8:38 AM EST ----- Triglyceride levels and bad cholesterol levels have increased since previous check. Has she been taking the Fenofibrate and Atorvastatin daily as prescribed and not missing any doses? Liver enzymes are normal. Left a message to return call. [facility] 07-05-2024 36 Notified, no further questions. [facility] 36 Prescription sent to [facility] 36 Pt came in wanting a refill [...] physical exam: 05/04/24 Next scheduled appointment: 05/05/25 [facility] Progress Noteon 07-05-2024 Progress Note Venipuncture complet ed by [facility]. Normal [facility] Lumbar Spine 2 or 3 Viewson 07-02-2024 Lumbar Spine 2 or 3 Views [facility] Imaging Services [address] [place] [address] Lumbar Spine 2 or 3 Views MR#: [id number] Acct: [id number] Name: YODIT LANDIN VIVIAN Rep #: [id number] : 1955 F 68 From: Isaiah Barahona MD PCP: Dr. Moshe Key MD Status: DEP AMB Study: Lumbar Spine 2 or 3 Views Date of Exam: Exam# [id number] Ordering Dr: Enriqueta Houston PROCEDURE: LUMBAR SPINE [...] IMPRESSION: Postsurgical changes. Spondylosis. Spondylolisthesis. Reading Location: [id number] CC: KIZZY Hebert; Dr. Mohse Key MD Supervisor Beam Department: Signed Normal [facility] Orthopedic Visit Reporton Orthopedic Visit Report [facility] [address] [place] [address] [address] [place] [address] OFFICE VISIT Date of Service: 07/02/24 MR#: [id number] Acct: [id number] Name: YODIT LANDIN VIVIAN Rep #: [id number] : 1955 Provider: KIZZY Hebert Age/Sex: 68/F [...] mg PO .QAM 01/16/24 07/02/24 History omega 2-xck-fpq-fish oil 1,200 mg 1 cap PO DAILY [...] PO TID 03/15/24 07/02/24 His tory 31.25 kav-jqvt-gloqywqxx-quer cet capsule (Immune Essentials Daily) acetaminophen 500 [...] into acti (more content not included)... Normal [facility] 29on 06-28-2024 29 Addended by: SEDRICK HEMPHILL on: 06/29/2024 06:05 PM Modules accepted: Level of Service [facility] 37on 06-28-[address] Morton about ortho specialist regarding the knee. May need ultrasound if getting injection in the knee. Normal [facility] Office Visiton 06-28-2024 Follow-up visit [id number] Juan Landin 1955 F Date Provider Department Center 06/28/2024 [id number] HEMPHILL [facility] Family History Problem Relation Age of Onset Ovarian cancer Mother Comments: 2000 Arthritis Father Hearing loss Father Stroke Father Prostate cancer Father Comments: 2001, recall ages Arthritis Brother Hearing loss Brother Hyperlipidemia Brother Prostate cancer Brother 71 Family Status - Relation Status Age at Mother Father Brother Level of Service:[address] [place] OFFICE/OUTPATIENT ESTABLISHED MOD MDM 30 MIN Reason for Visit and Comments: Follow-up [840007] Knee Pain [174042] [facility] Progress Noteon 06-28-2024 Progress Note Patient scheduled fo r lipid check next week. Continue fenofibrate 160 mg daily and atorvastatin 20 mg daily Normal [facility] Progress Note Discussed risks and benefits [...] and possible corticosteroid injection (may need ultrasound) [facility] Progress Note Patient was identifi ed by name and Date of . [facility] Progress Note 06/28/2024 Yodit Landin (: 1955) [...] TABLET BY MOUTH DAILY 12/29/23 Sedrick Bridenthal, VERT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 - ICT SUPPORT TECHNICIANS irbesartan (Avapro) 300 MG tablet TAKE 1 TABLET BY MOUTH DAILY 05/03/24 Sedrick Bridenthal, VERT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 - ICT SUPPORT TECHNICIANS levothyroxine (Synthroid, Levoxyl) 150 MCG tablet Take 1 tablet (150 mcg) by mouth every morning (before breakfast). 06/04/24 12/01/24 Jessica Smith APRN - ICT SUPPORT TECHNICIANS metFORMIN (Glucophage) 1000 MG tablet TAKE 1 TABLET BY MOUTH IN THE MORNING AND 1 TABLET BY MOUTH IN THE EVENING TAKE WITH MEALS 06/02/24 Sedrick Bridenthal, VERT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 - ICT SUPPORT TECHNICIANS NON FORMULARY Gurmur 134 mg 2 tablets daily po Historical Provider, NON FORMULARY Cardio 450 mg daily po for heart health Historical Provider, NON FORMULARY 4Life Classic 600 mg 3 tablets daily po Historical Provider, nystatin (Mycostatin) cream APPLY TOPICALLY TWICE DAILY 06/10/24 Sedrick Bridenthal, VERT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 - ICT SUPPORT TECHNICIANS omega-3 (Fish Oil) 1200 MG capsule Take 1,200 mg by mouth daily. Historical Provider, Vitamin E 450 MG (1000 UT) capsule Take 450 mg by mouth daily. Historical Provider, Review of Systems Constitutional: Negative for activity change, chills, fatigue and fever. Respiratory: Negative. Cardiovascular: Negative. Musculoskeletal: Positive for arthralgias. Vitals: 06/28/24 093 (more content not included)... [facility] 36on 06-16-2024 36 Added. Pt aware. Normal [place] [address] Yes we can do it at that time- please add to the appt note [place] [address] Notified, asking if you can do this injection at her visit on 06/28/24. [place] [address] Reviewed knee xray. Shows mild osteoarthritis and some calcium deposits within the joint that are likely causing the pain. Recommend considering a corticosteroid knee injection (this can be done here or she can go and see ortho specialist for this) [place] [address] Received fax, placed in [employer]. [facility] 36on 06-15-2024 36 Faxed to stacie costello [place] [address] Name of caller: Juan salgado Contact phone number: [phone] Relationship to Patient: patient Provider: 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 Practice: [facility] Chief Complaint/Reason for Call: The patient states she got the knee xrays done at [facility] in [place]. Please advise Best time of day caller can be reached: Any Patient advised that office/PCP has 24-48 business hours to return their call: No [place] [address] Left a message to return call. CAC: If patient calls back please obtain where she got her knee xrays done at. [place] [address] We got a fax stating that there was no radiology report that they had for this. Will call Yodit and see where she got these done/when she got these done. [place] [address] Did we get these? [address] 06-14-2024 36 Called and spoke wit h [facility] medical records, they will be sending over x-ray results to us now. FYI [address] 06-10-2024 36 Prescription Request : Last medication check: 01/21/24 Last physical exam: 05/04/24 Next scheduled appointment: 06/28/24 Last date of refill on this medication 12/10/23 [place] [address] Prescription Request : Last medication check: 01/21/24 Last physical exam: 05/04/24 Next scheduled appointment: 06/28/24 Last date of refill on this medication Omeprazole 12/03/23, Vit D 01/16/[address] 06-08-2024 36 I have not received the xray results [place] [address] I had sent an MYRNA ov er to [facility]....have you gotten these yet? [address] 06-04-2024 36 Rx sent and future [...] level is excellent continue current medication. Normal [facility] Progress Noteon 06-03-2024 Progress Note Venipuncture complet ed by Balaya. Normal [facility] 36on 06-02-2024 36 Sent MYRNA to [facility] to s end xray results. Normal [place] [address] Reviewed chart. Refi ll appropriate. RX sent. Normal [facility] 36 Prescription Request : Last medication check: 01/21/24 Last physical exam: 05/04/24 Next scheduled appointment: 06/28/24 Last date of refill on this medication 03/25/24 90 day 1 refill [facility] PT D/C Summary (1)on 025 PT D/C Summary (1) [facility] [place] [address] / REHABILITATION SERVICES DISCHARGE SUMMARY MR#: [id number] Acct: [id number] Name: YODIT LANDIN Rep #: [id number] : 1955 68 From: Barbra COCHRAN Referring Dr.: Dr. Arnold Morton MD Status: REG RCR Insurance: [employer] [facility] ADV LIFE1 SELF PAY INSURANCE Discharge [...] please feel free to call me at [phone]. Thank you for the referral of this patient. Sincerely, Barbra Clifton, DIMAS Balance/Gait/Functional tests Balance/Special Test Scores Oswestry Low Back Score: 3 Dizziness Score: 0 Improvement % Improvement: 100 05/31/24 0932 CC: Dr. Arnold Morton MD; Dr. Moshe Key MD Signed [facility] 36on 05-25-2024 36 Noted. I think she i s referring to xray of knee at [place]. Will just need to make sure we receive results later this week. Normal [facility] 36 Name of caller: juan salgado Contact phone number: [phone] Relationship to Patient: patient Provider: 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 Practice: [facility] Chief Complaint/Reason for Call: pt called in to let provider that she got labs done Best time of day caller can be reached: AM Patient advised that office/PCP has 24-48 business hours to return their call: Yes [facility] 37on 05-25-2024 37 Try the Voltaren cre am on joints. Ice and elevate right knee, try compression sleeve during the day. [facility] Office Visiton 05-25-2024 Follow-up visit [id number] Juan Landin 1955 F Date Provider Department Center 05/25/2024 [id number]-BKAPQVZKZESEDRICK HEMPHILL [facility] Family History Problem Relation Age of Onset Ovarian cancer Mother Comments: 2000 Arthritis Father Hearing loss Father Stroke Father Prostate cancer Father Comments: 2001, recall ages Arthritis Brother Hearing loss Brother Hyperlipidemia Brother Prostate cancer Brother 71 Family Status - Relation Status Age at Mother Father Brother Level of Service:[address]60 [place] OFFICE/OUTPATIENT ESTABLISHED LOW MDM 20 MIN Reason for Visit and Comments: Knee Pain [104480] - Right-started a week ago [facility] Progress Noteon 05-25-2024 Progress Note Will obtain imaging due to history of osteoarthritis to evaluate status. Has been couple years since last imaging per patient. Recommend heather BLEDSOE to see chiropractor for knee, pending imaging results, consider PT and or referral to sports med [facility] Progress Note Patient was identifi ed by name and Date of . [facility] Progress Note 05/25/2024 Yodit Landin (: 1955) [...] ASAF Otoole CNP 05/25/2024 2:32 PM Normal [facility] XR KNEE THREE VIEWS RIGHTon 05-25-2024 [...] PM Ordering Provider: SEDRICK HEMPHILL [facility] 36on 05-24-2024 36 S: The patient is calling the [facility] about right knee pain B: This [...] present > 3 days Protocols used: Knee Jtet-LSWOT-OH [facility] PT D/C Summary (1)on 024 PT D/C Summary (1) [facility] [address] [place] [address] [address] [place] [address] / REHABILITATION SERVICES DISCHARGE SUMMARY MR#: [id number] Acct: [id number] Name: YODIT LANDIN Rep #: [id number] : 1955 68 From: Pa Flannery PT, Cert. T, [facility] Referring Dr.: Dr. Arnold Morton MD Status: [...] please feel free to call me at [phone]. Thank you for the referral of this patient. Sincerely, Pa Flannery, PT, Cert MDT, OCS Balance/Gait/Functional tests Balance/Special Test Scores Oswestry Low Back Score: 3 Dizziness Score: 24 Improvement % Improvement: 100 05/21/24 1420 CC: Dr. Arnold Morton MD; Dr. Moshe Key MD JUANYStoney Signed Normal [facility] PT D/C Summary (1)on 024 PT D/C Summary (1) [facility] [address] [place] [address] / REHABILITATION SERVICES DISCHARGE SUMMARY MR#: [id number] Acct: [id number] Name: YODIT LANDIN Rep #: [id number] : 1955 68 From: Barbra COCHRAN Referring Dr.: Dr. Arnold Morton MD Status: REG RCR Insurance: [facility] ADV LIFE1 SELF PAY INSURANCE Discharge [...] please feel free to call me at [phone]. Thank you for the referral of this patient. Sincerely, Barbra Stoner, MPT Balance/Gait/Functional tests Balance/Special Test Scores Oswestry Low Back Score: 3 Dizziness Score: 24 Improvement % Improvement: 100 05/14/24 1155 CC: Dr. Arnold Morton MD; Dr. Moshe Key MD Signed Normal [facility] Lumbar Spine 2 or 3 Viewson 05-13-2024 Lumbar Spine 2 or 3 Views [facility] Radiology [address] [place] [address] Lumbar Spine 2 or 3 Views MR#: [id number] Acct: [id number] Name: YODIT LANDIN Rep #: [id number] : 1955 F 68 From: Fernando Leslie DO PCP: Dr. Moshe Key MD Status: DEP AMB Study: Lumbar Spine 2 or 3 Views Date of Exam: Exam# [id number] Ordering Dr: Enriqueta [place] [id number] STUDY: X-RAY - LUMBAR SPINE REASON FOR [...] 20:50 EST Reading Location ID and State: [facility] / [place] Tel [phone], Service support , CC: KIZZY Hebert; Dr. Moshe Key MD Supervisor Beam Department: Signed Normal [facility] Orthopedic Visit Reporton Orthopedic Visit Report [facility] [address] [place] [address] 5 [place] [address] OFFICE VISIT Date of Service: 05/13/24 MR#: [id number] Acct: [id number] Name: YODIT LANDIN Rep #: [id number] : 1955 Provider: KIZZY Hebert Age/Sex: 68/F Location[place] [facility] Status: Signed Intake Vital Signs 02/05/24 16:00 [...] mg PO .QAM 01/16/24 05/13/24 History omega 3-nyj-juh-fish oil 1,200 mg 1 cap PO DAILY [...] cap PO TID 03/15/24 05/13/24 History 31.25 wjn-lwec-ohgahrnsj-quer cet capsule (Immune Essentials Daily) acetaminophen 500 [...] decisions made by me, KIZZY Hebert 05/13/24 7965. Part of today???s visit was documented by [...] caused signifi (more content not included)... Normal [facility] 36on 05-06-2024 36 Noted. thanks Normal [place] [address] Notified. She is goi ng to try this and stop taking the indomethacin. Normal [place] [address] For right now she co uld take acetaminophen 1000 mg every 8 hours for her pain if needed Normal [place] [address] Notified, she states she would need something else for arthritis then because the 500mg tylenol she takes in the morning and in the evening is not helping and her left hand is in pain right now. She asked if this could be sent to [facility] since Dr. Key is gone for the day. Normal [place] [address] Rx sent, order christina d, indomethacin is still on her active medication list it was never stopped however that could be part of the reason why her kidney function looks the way it is because NSAIDs like indomethacin will affect the kidney function would recommend she only take that if absolutely necessary Normal [place] [address] Patient is agreeable , scheduled in 4 [...] it to be added back on. Normal [facility] 36 ----- Message from Moshe Key [...] mcg. Needs recheck in 4 weeks Normal [facility] Initial Evaluation (2) - PTo n 05-05-2024 Initial Evaluation (2) - PT [facility] [address] [place] [address]. [address] [place] [address] / REHABILITATION SERVICES INITIAL EVALUATION MR#: [id number] Acct: [id number] Name: YODIT LANDIN Rep #: [id number] : 1955 68 From: Barbra COCHRAN Referring Dr.: Dr. Arnold Morton MD Status: REG RCR Insurance: [facility] LIFE1 SELF PAY INSURANCE Patient's Visit Information [...] to be FAXED BACK to us at [phone] for Medicare purposes. For Medicare only, by signing this I certify the plan of care. Please let me know if there are questions or concerns regarding this plan of care. Physician Signature: (more content not included)... Normal [facility] Office Visiton 05-04-2024 Follow-up visit [id number] Juan Landin 1955 F Date Provider Department Center 05/04/2024 23338[facility]CCGMOSHE [facility] Family History Problem Relation Age of Onset Ovarian cancer Mother Comments: 2000 Arthritis Father Hearing loss Father Stroke Father Prostate cancer Father Comments: 2001, cant recall ages Arthritis Brother Hearing loss Brother Hyperlipidemia Brother Prostate cancer Brother 71 Family Status - Relation Status Age at Mother Father Brother Level of Service:G0439 [place] PPPS, SUBSEQ VISIT Reason for Visit and Comments: Medicare Annual Wellness Visit Subsequent [677] Blood Work [959487] Health Maintenance [872] - Tdap vaccine- agree 2nd shingles vaccine- advised to go to pharmacy Dental exam- not done Eye exam- go to [facility] in [place] - will send for record Normal [facility] Progress Noteon 05-04-2024 Progress Note Controlled, continue metformin 1000 mg twice a day Orders: Comprehensive metabolic panel; Future Hemoglobin A1c; Future Comprehensive metabolic panel Hemoglobin A1c Normal [facility] Progress Note Patient verified by last name and date of . Normal [facility] Progress Note Controlled, continue atorvastatin 10 mg daily Orders: Lipid panel; Future Lipid panel Normal [facility] Progress Note Stable, recheck lab work today. Orders: CBC auto differential; Future Ferritin; Future Iron and TIBC; Future CBC auto differential Ferritin Iron and TIBC Normal [facility] Progress Note Initially elevated, recheck was normal, continue chlorthalidone 25 mg daily and irbesartan 300 mg daily Normal [facility] Progress Note [address] [address] Visit Type: Medicare Annual Wellness PCP: Moshe Key MD Reason for Visit: Medicare Annual Wellness Visit Subsequent, Blood Work, and Health Maintenance (Tdap vaccine- agree/2nd shingles vaccine- advised to go to pharmacy /Dental exam- not done/Eye exam[facility] [place] - will send for record ) Assessment [...] HIB Vaccines (more content not included)... Normal [facility] Progress Note Controlled, continue levothyroxine 100 mcg daily Orders: TSH; Future TSH Normal [facility] Progress Note Stable, continue omeprazole 40 mg daily [facility] 36on 05-03-2024 36 lm to pre-visit plan for appointment with Dr Key on 05/04/24 9:30. Please ask patient to arrive 15 minutes early with Photo ID, insurance card Fasting: yes Put call through to office for pvp [facility] 36 Prescription Request : Last medication check: 01/21/2024 Last physical exam: 04/23/2023 Next scheduled appointment: 05/04/2024 Last date of refill on this medication: 12/03/2023 [facility] 36on 04-19-2024 36 Faxed. Notified patient. Normal [facility] 36 Order placed for Vestibular therapy- please fax and notify patient Normal [facility] 36 Name of caller: Juan salgado Contact phone number: [phone] Relationship to Patient: patient Provider: Colin Practice: [facility] Chief Complaint/Reason for Call: Yodit called in stating that she had PT today for her back where they mentioned they can treat her for her back and vertigo at the same time as long as an order is sent. Yoidt is requesting for Sedrick to send an order for vertigo to Barbra Clifton at the [facility] at fax [phone]. She stated she has PT appointments on s and . Please advise and notify the patient when this has been done. Best time of day caller can be reached: any Patient advised that office/PCP has 24-48 business hours to return their call: No Normal [facility] Re-Evaluation - PT (1)on Re-Evaluation - PT (1) [facility] [address] [place] [address]. [address] [place] [address] / REEVALUATION / MEDICARE RECERTIFICATION PHYSICAL THERAPY MR#: [id number] Acct: [id number] Name: YODIT LANDIN Rep #: [id number] : 1955 68 From: Barbra Clifton MPT Referring Dr.: Dr. Arnold Morton MD Status:REG RCR Insurance: [facility] ADV LIFE1 SELF PAY INSURANCE Re-Evaluation Intro: Dr. Arnold Morton MD, It has been my pleasure to treat YDOIT LANDIN over the last 2 visits for [...] do not hesitate to contact me at [phone] by phone or if you have questions or concerns regarding this new plan of care! Sincerely, Barbra Clifton, MPT 04/19/24 1206 CC: Dr. Arnold Morton MD; Dr. Moshe Key MD Signed For Medicare only, by signing this I certify the plan of care. Physicians Signature Date Normal [facility] Lumbar Spine 2 or 3 Viewson 04-15-2024 Lumbar Spine 2 or 3 Views [facility] [address] [place] [address] Lumbar Spine 2 or 3 Views MR#: [id number] Acct: [id number] Name: YODIT LANDIN VIVIAN Rep #: [id number] : 1955 F 68 From: Jef Menjivar MD PCP: Dr. Moshe Key MD Status: DEP AMB Study: Lumbar Spine 2 or 3 Views Date of Exam: Exam# [id number] Ordering Dr: [place] [id number] EXAM: XR LUMBOSACRAL SPINE, 2 OR 3 [...] CC: KIZZY Hebert; Dr. Moshe Key MD Supervisor Beam Department: Signed Normal [facility] Orthopedic Visit Reporton Orthopedic Visit Report [facility] [address] [place] [address] OFFICE VISIT Date of Service: 04/15/24 MR#: [id number] Acct: [id number] Name: YODIT LANDIN Rep #: [id number] : 1955 Provider: Dr. Arnold Morton MD Age/Sex: 68/F Location: [facility] Status: Signed Intake Vital Signs 02/05/24 16:00 [...] mg PO .QAM 01/16/24 04/15/24 History omega 6-jed-nxw-fish oil 1,200 mg 1 cap PO DAILY [...] cap PO TID 03/15/24 04/15/24 History 31.25 sql-stjs-eozrbegch-quer cet capsule (Immune Essentials Daily) acetaminophen 500 [...] bending, lifting, (more content not included)... Normal [facility] Basic Metabolic Profile (BMP )on 03-30-2024 BUN/CRE 15.1 RATIO Normal - [facility] Comment on above: Performed By: #### L 100.0500, L500.2500 #### [facility] [address] [place], [address] CA,Total 8.5 mg/dL Normal 8.5-10.1 [facility] Comment on above: Performed By: #### L 100.0500, L500.2500 #### [facility] [address] [place], [address] Chloride [Moles/Vol] 102 mmol/L Normal 98-107 [facility] Comment on above: Performed By: #### L 100.0500, L500.2500 #### [facility] [address] [place], [address] CO2 [Moles/Vol] 28.0 mmol/L Normal 21.0-32.0 [facility] Comment on above: Performed By: #### L 100.0500, L500.2500 #### [facility] [address] [place], [address] Creatinine [Mass/Vol] 1.19 mg/dL High 0.55-1.02 [facility] Comment on above: Result Comment: The validity of the calculated GFR GFRAA in patients over 70 years has not been determined. Clinical correlation is essential. Performed By: #### L 100.0500, L500.2500 #### [facility] [address] [place], [address] ECRCL 49.60 ml/min Normal [facility] Comment on above: Performed By: #### L 100.0500, L500.2500 #### [facility] [address] [place], [address] EST GFR - AA 58 mL/min Low >60 [facility] Comment on above: Result Comment: Afri can Bots[place]an GFR Calc Performed By: #### L 100.0500, L500.2500 #### [facility] [address] [place], [address] GAP 7 Normal 5-15 [facility] Comment on above: Performed By: #### L 100.0500, L500.2500 #### [facility] [address] [place], [address] GFR/1.73 sq M.predicted among non-blacks MDRD (S/P/Bld) [Vol rate/Area] 48 mL/min/{1.73_m2} Low >60 [facility] Comment on above: Result Comment: Non- GFR Calc Performed By: #### L 100.0500, L500.2500 #### [facility] [address] [place], [address] Glucose [Mass/Vol] 126 mg/dL High 74-106 [facility] Comment on above: Result Comment: Fast ing Glucose result greater than or equal to 126 mg/dL suggests DIABETES MELLITUS per A.D.A. criteria. Performed By: #### L 100.0500, L500.2500 #### [facility] [address] [place], [address] Potassium [Moles/Vol] 4.5 mmol/L Normal 3.5-5.1 [facility] Comment on above: Performed By: #### L 100.0500, L500.2500 #### [facility] [address] [place], [address] Sodium [Moles/Vol] 137 mmol/L Normal 136-145 [facility] Comment on above: Performed By: #### L 100.0500, L500.2500 #### [facility] [address] [place], [address] Urea nitrogen [Mass/Vol] 18 mg/dL Normal 7-18 [facility] Comment on above: Performed By: #### L 100.0500, L500.2500 #### [facility] [address] [place], [address] Bedside Glucoseon 03-30-2024 FINGERSTICK GLU 167 mg/dL High 74-106 [facility] Comment on above: Result Comment: RANDI DUNLAP OF PATIENT CARE PER NURSING PROTOCOL Performed By: #### L 501.080 ####[facility] [address] [place], [address] FINGERSTICK GLU 116 mg/dL High 74-106 [facility] Comment on above: Result Comment: RANDI DUNLAP OF PATIENT CARE PER NURSING PROTOCOL Performed By: #### L 501.080 ####[facility] [address] [place], [address] CBC-Complete Blood Cnt No Di ffon 03-30-2024 Erythrocyte distribution width (RBC) [Ratio] 16.0 % High 11.6-14.6 [facility] Comment on above: Performed By: #### L 100.0500, L500.2500 #### [facility] [address] [place], [address] Hematocrit (Bld) [Volume fraction] 27.8 % Low 37-47 [facility] Comment on above: Performed By: #### L 100.0500, L500.2500 #### [facility] [address] [place], [address] Hemoglobin (Bld) [Mass/Vol] 8.6 g/dL Low 12.0-15.0 [facility] Comment on above: Performed By: #### L 100.0500, L500.2500 #### [facility] [address] [place], [address] MCH (RBC) [Entitic mass] 28.5 pg Normal 27.0-32.0 [facility] Comment on above: Performed By: #### L 100.0500, L500.2500 #### [facility] [address] [place], [address] MCHC (RBC) [Mass/Vol] 30.9 g/dL Low 32-36 [facility] Comment on above: Performed By: #### L 100.0500, L500.2500 #### [facility] [address] [place], [address] MCV (RBC) [Entitic vol] 92.1 fL Normal 81-99 [facility] Comment on above: Performed By: #### L 100.0500, L500.2500 #### [facility] [address] [place], [address] Platelet mean volume (Bld) [Entitic vol] 9.5 fL Normal 6.2-12.0 [facility] Comment on above: Performed By: #### L 100.0500, L500.2500 #### [facility] [address] [place], [address] Platelets (Bld) [#/Vol] 138 10*3/uL Low 150-450 [facility] Comment on above: Performed By: #### L 100.0500, L500.2500 #### [facility] [address] [place], [address] RBC (Bld) [#/Vol] 3.02 10*6/uL Low 4.2-5.[address] [facility] Comment on above: Performed By: #### L 100.0500, L500.2500 #### [facility] [address] [place], [address] RDW SD 52.8 fl High 35.1-43.9 [facility] Comment on above: Performed By: #### L 100.0500, L500.2500 #### [facility] [address] [place], [address] WBC (Bld) [#/Vol] 6.9 10*3/uL Normal 4.4-11.0 [facility] Comment on above: Performed By: #### L 100.0500, L500.2500 #### [facility] [address] [place], [address] Hemoglobinon 03-30-2024 Hemoglobin (Bld) [Mass/Vol] 9.6 g/dL Low 12.0-15.0 [facility] Comment on above: Performed By: #### L 100.1300 ####[facility] [address] [place], [place], [address] Lumbar Spine 2 or 3 Viewson 03-30-2024 Lumbar Spine 2 or 3 Views [facility] Imaging Services [address] [place] [address] Lumbar Spine 2 or 3 Views MR#: [id number] Acct: [id number] Name: YODIT LANDIN Rep #: [id number] : 1955 F 68 From: Justin Monzon MD PCP: Dr. Moshe Key MD Status: DIS [place] Study: Lumbar Spine 2 or 3 Views Date of Exam: Exam# [id number] Ordering Dr: [place] [id number] STUDY: X-RAY - LUMBAR SPINE REASON FOR [...] CC: KIZZY Hebert; Dr. Moshe Key MD Supervisor Beam Department: Signed Normal [facility] Bedside Glucoseon 03-29-2024 FINGERSTICK GLU 179 mg/dL High 74-106 [facility] Comment on above: Result Comment: RANDI GEMENT OF PATIENT CARE PER NURSING PROTOCOL Performed By: #### L 501.080 #### [facility] [address] [place], [address] FINGERSTICK GLU 158 mg/dL High 74-106 [facility] Comment on above: Result Comment: RANDI GEMENT OF PATIENT CARE PER NURSING PROTOCOL Performed By: #### L 501.080 #### [facility] [address] [place], [address] Lumbar Spine 2 or 3 Viewson 03-29-2024 Lumbar Spine 2 or 3 Views [facility] Imaging Services [address] [place] [address] Lumbar Spine 2 or 3 Views MR#: [id number] Acct: [id number] Name: YODIT LANDIN Rep #: [id number] : 1955 F 68 From: Aleksandar huang MD PCP: Dr. Moshe Key MD Status: ADM [place] Study: Lumbar Spine 2 or 3 Views Date of Exam: Exam# [id number] Ordering Dr: [place] [id number] STUDY: X-RAY - LUMBAR SPINE REASON FOR [...] Arnold Morton MD; Dr. Moshe Key MD Supervisor Beam Department: Signed [facility] MR/POSTOP.ANEon 03-29-2024 MR/POSTOP.[facility] Medical Records Department [address] [place] [address] Anesthesia Postop Eval I 03/29/24 1150 MR#: [id number] Acct: [id number] Name: YODIT LANDIN Rep #: [id number] : 1955 68 From: Chelsey Orantes CRNA PCP: Dr. Moshe Key MD Status:[facility] Race: C Location: [place] [address] Anesthesia: Postop Eval I Current Vital Signs [...] Orantes CRNA Cosigner Signature: Date CC: Signed [facility] MR/MURSZOPK8kw 03-29-2024 MR/POSTOPAN2 [facility] Medical Records Department [address] [place] [address] Anesthesia Postop Eval II 03/29/24 1514 MR#: [id number] Acct: [id number] Name: YODIT LANDIN Rep #: [id number] : 1955 68 From: Jeovanny Oliver MD PCP: Dr. Moshe Key MD Status:ADM [place]ZETTE Y Race: C [facility] Postop Eval I Sum Postop Eval Completion status Anesthesia document: Postop Eval 1 completed: Yes Anesthesia Postop Eval I Summary Anesthesia Postop Eval I Summary: Anesthesia Postop Eval I: Assessment Summary Airway patent Yes 03/29/24 11:51 ACTIVITIES DIRECTOR.SKOBY Spontaneous unlabored Yes 03/29/24 11:51 ACTIVITIES DIRECTOR.SKOBY respirations Mental status Asleep 03/29/24 11:51 ACTIVITIES DIRECTOR.SKOBY nausea No 03/29/24 11:51 ACTIVITIES DIRECTOR.SKOBY Vomiting No 03/29/24 11:51 ACTIVITIES DIRECTOR.SKOBY Anesthesia Postop Eval I: Fluid Summary Crystalloid volume administer 1,400 03/29/24 11:51 ACTIVITIES DIRECTOR.SKOBY (ml) Colloids volume administered ( ml) Blood Product volume administered (ml) Total IV fluid infused 1,400 03/29/24 11:51 ACTIVITIES DIRECTOR.SKOBY Anesthesia Postop Eval I: Summary Notes Anesthesia Complication No 03/29/24 11:51 ACTIVITIES DIRECTOR.SKOBY Anesthesia Complication Comment: Post-operative progress note Anesthesia: Postop Eval II Evaluation Mental status: Awake and Calm Pain Level: 2 nausea: No Vomiting: No Complications Anesthesia Complication: No 03/29/24 1515 Date Jeovanny Oliver MD Cosigner Signature: Date CC: Signed Normal [facility] Operative Reporton 4 Operative Report [facility] Medical Records Department [address] [place] [address] Operative Report 03/29/24 1124 MR#: [id number] Acct: [id number] Name: YODIT LANDIN Rep #: [id number] : 1955 68 From: Arnold Morton MD PCP: Dr. Moshe Key MD Status:[facility] Location: [place] [address] Operative Report (Standard) Operative Information Surgery/Procedure Performed: [...] L5-S1 posterior spinal fusion and interbody fusion 23877 ??? L5-S1 posterior pedicle screw instrumentation 59267 . L5-S1 insertion of cage 55894 . Local autograft 24906 . Cancellous allograft with DBX 08111 Attending Surgeon: Dr. Arnold Morton Estimated blood [...] this resected bone was used as autograft. [place] was then utilized to remove the rest [...] Hemostasis was a (more content not included)... [place] [address]on 03-25-2024 36 Reviewed chart. Refi ll appropriate. RX sent. [facility] 36 Medication name: metFORMIN (Glucophage) 1000 MG [...] prior to picking up the medication: N/A [place] [address]on 03-22-[address] Ortiz office at [phone] [facility] 36 yes [facility] 36 Ok to fax? [place] [address]on 03-19-2024 36 Name of caller: Juan salgado Contact phone number: [phone] Relationship to Patient: patient Provider: Dr. Key Practice: [facility] Chief Complaint/Reason for Call: The patient states her Surgeon Dr. Arnold Morton needs a copy faxed to him of her last blood tests taken. His office # is [phone] the patient didn't have the fax #. Please advise. Best time of day caller can be reached: Any Patient advised that office/PCP has 24-48 business hours to return their call: No [facility] Orthopedic Visit Reporton Orthopedic Visit Report [facility] [address] [place] [address] 5 [place] [address] OFFICE VISIT Date of Service: 03/19/24 MR#: [id number] Acct: [id number] Name: YODIT LANDIN VIVIAN Rep #: [id number] : 1955 Provider: Dr. Arnold Morton MD [...] mg PO .QAM 01/16/24 03/19/24 History omega 4-ank-fhx-fish oil 1,200 mg 1 cap PO DAILY [...] cap PO TID 03/15/24 03/19/24 History 31.25 rql-pbdd-uoowkirrd-quer cet capsule (Immune Essentials Daily) Have you [...] states sh (more content not included)... Normal [facility] Hemoglobin A1con 03-18-2024 HbA1c (Bld) [Mass fraction] 6.6 % High 3.8-5.6 [facility] Comment on above: Order Comment: ADD O N Result Comment: Norm al < 5.7 % Prediabetic 5.7 - 6.4 % Diabetic >or= 6.5 % Please note range changes. Performed By: #### L 501.9985 #### [facility] [address] [facility] [place], [place], [id number] Hepatitis A AB, Totalon 02-24 HEPATITIS A,TOT Negative Normal Negative [facility] Comment on above: Result Comment: Comm ent: The HAV total antibody assay detects both IgG and IgM but does not differentiate between them. A negative result suggests susceptibility to infection. A positive result could be due to vaccination, previously resolved infection or active infection. Testing for HAV IgM should be performed if active HAV infection is suspected. [facility] offers profiles that will automatically reflex positive HAV total antibody results to IgM (e.g., panel #[id number] HAV Antibody w/ Rfx). Performed at: [address] [id number] Surveyor'S Assistant: Aris Jett PhD, Phone: [phone] Performed By: #### L 100.0100, M100.651, L3890.6300, L3890.6200, L500.2500, L3100.0300, BTSPAT, L3890.6005 ####[facility] [address] [facility] [place], [address] MRSA/SAID NASAL SCREENon MRSA+SAID SCRN Reason for Exam: PRE -OP MRSA MRSA Negative S. AUREUS S. aureus Negative Normal [facility] Comment on above: Performed By: #### L 100.0100, M100.651, L3890.6300, L3890.6200, L500.2500, L3100.0300, BTSPAT, L3890.6005 ####[facility] [address] [place], [address] Basic Metabolic Profile (BMP )on 03-17-2024 BUN/CRE 14.7 RATIO Normal - [facility] Comment on above: Performed By: #### L 100.0100, M100.651, L3890.6300, L3890.6200, L500.2500, L3100.0300, BTSPAT, L3890.6005 ####[facility] [address] [place], [place], [phone] CA,Total 9.3 mg/dL Normal 8.5-10.1 [facility] Comment on above: Performed By: #### L 100.0100, M100.651, L3890.6300, L3890.6200, L500.2500, L3100.0300, BTSPAT, L3890.6005 ####[facility] [address] [place], [place], [phone](686) Chloride [Moles/Vol] 104 mmol/L Normal 98-107 [facility] Comment on above: Performed By: #### L 100.0100, M100.651, L3890.6300, L3890.6200, L500.2500, L3100.0300, BTSPAT, L3890.6005 ####[facility] [address] [place], [address] CO2 [Moles/Vol] 25.0 mmol/L Normal 21.0-32.0 [facility] Comment on above: Performed By: #### L 100.0100, M100.651, L3890.6300, L3890.6200, L500.2500, L3100.0300, BTSPAT, L3890.6005 ####[facility] [address] [place], [address] Creatinine [Mass/Vol] 1.29 mg/dL High 0.55-1.02 [facility] Comment on above: Result Comment: The validity of the calculated GFR GFRAA in patients over 70 years has not been determined. Clinical correlation is essential. Performed By: #### L 100.0100, M100.651, L3890.6300, L3890.6200, L500.2500, L3100.0300, BTSPAT, L3890.6005 ####[facility] [address] [place], [address] EST GFR - AA 53 mL/min Low >60 [facility] Comment on above: Result Comment: Afri can [place] GFR Calc Performed By: #### L 100.0100, M100.651, L3890.6300, L3890.6200, L500.2500, L3100.0300, BTSPAT, L3890.6005 ####[facility] [address] [place], [address] GAP 8 Normal 5-15 [facility] Comment on above: Performed By: #### L 100.0100, M100.651, L3890.6300, L3890.6200, L500.2500, L3100.0300, BTSPAT, L3890.6005 ####[facility] [address] [place], [address] GFR/1.73 sq M.predicted among non-blacks MDRD (S/P/Bld) [Vol rate/Area] 44 mL/min/{1.73_m2} Low >60 [facility] Comment on above: Result Comment: Non- GFR Calc Performed By: #### L 100.0100, M100.651, L3890.6300, L3890.6200, L500.2500, L3100.0300, BTSPAT, L3890.6005 ####[facility] [address] [place], [address] Glucose [Mass/Vol] 179 mg/dL High 74-106 [facility] Comment on above: Result Comment: Fast ing Glucose result greater than or equal to 126 mg/dL suggests DIABETES MELLITUS per A.D.A. criteria. Performed By: #### L 100.0100, M100.651, L3890.6300, L3890.6200, L500.2500, L3100.0300, BTSPAT, L3890.6005 ####[facility] [address] [place], [address] Potassium [Moles/Vol] 4.2 mmol/L Normal 3.5-5.1 [facility] Comment on above: Performed By: #### L 100.0100, M100.651, L3890.6300, L3890.6200, L500.2500, L3100.0300, BTSPAT, L3890.6005 ####[facility] [address] [place], [address] Sodium [Moles/Vol] 137 mmol/L Normal 136-145 [facility] Comment on above: Performed By: #### L 100.0100, M100.651, L3890.6300, L3890.6200, L500.2500, L3100.0300, BTSPAT, L3890.6005 ####[facility] [address] [place], [address] Urea nitrogen [Mass/Vol] 19 mg/dL High 7-18 [facility] Comment on above: Performed By: #### L 100.0100, M100.651, L3890.6300, L3890.6200, L500.2500, L3100.0300, BTSPAT, L3890.6005 ####[facility] [address] [place], [address] CBC W/Diff, Automatedon 10-2 Absolute Lymph 1.45 X10 3/uL Normal 0.83-4.51 [facility] Comment on above: Performed By: #### L 100.0100, M100.651, L3890.6300, L3890.6200, L500.2500, L3100.0300, BTSPAT, L3890.6005 ####[facility] [address] [place], [address] Absolute Neut 2.5 X10 3/uL Normal 2.0-7.7 [facility] Comment on above: Performed By: #### L 100.0100, M100.651, L3890.6300, L3890.6200, L500.2500, L3100.0300, BTSPAT, L3890.6005 ####[facility] [address] [place], [address] Basophils/100 WBC (Bld) 1.1 % High 0-1 [facility] Comment on above: Performed By: #### L 100.0100, M100.651, L3890.6300, L3890.6200, L500.2500, L3100.0300, BTSPAT, L3890.6005 ####[facility] [address] [place], [address] Eosinophils/100 WBC (Bld) 6.3 % High 0-5 [facility] Comment on above: Performed By: #### L 100.0100, M100.651, L3890.6300, L3890.6200, L500.2500, L3100.0300, BTSPAT, L3890.6005 ####[facility] [address] [place], [address] Erythrocyte distribution width (RBC) [Ratio] 15.6 % High 11.6-14.6 [facility] Comment on above: Performed By: #### L 100.0100, M100.651, L3890.6300, L3890.6200, L500.2500, L3100.0300, BTSPAT, L3890.6005 ####[facility] [address] [place], [address] Hematocrit (Bld) [Volume fraction] 33.0 % Low 37-47 [facility] Comment on above: Performed By: #### L 100.0100, M100.651, L3890.6300, L3890.6200, L500.2500, L3100.0300, BTSPAT, L3890.6005 ####[facility] [address] [place], [address] Hemoglobin (Bld) [Mass/Vol] 10.3 g/dL Low 12.0-15.0 [facility] Comment on above: Performed By: #### L 100.0100, M100.651, L3890.6300, L3890.6200, L500.2500, L3100.0300, BTSPAT, L3890.6005 ####[facility] [address] [place], [address] IG% 0.600 Normal 0.0-0.9 [facility] Comment on above: Result Comment: IG% - Immature Granulocytes (promyelocytes, myelocytes and metamyelocytes) > 1% indicates that a LEFT SHIFT is Present. Performed By: #### L 100.0100, M100.651, L3890.6300, L3890.6200, L500.2500, L3100.0300, BTSPAT, L3890.6005 ####[facility] [address] [place], [address] Lymphocytes/100 WBC (Bld) 30.7 % Normal 19-41 [facility] Comment on above: Performed By: #### L 100.0100, M100.651, L3890.6300, L3890.6200, L500.2500, L3100.0300, BTSPAT, L3890.6005 ####[facility] [address] [place], [address] MCH (RBC) [Entitic mass] 28.5 pg Normal 27.0-32.0 [facility] Comment on above: Performed By: #### L 100.0100, M100.651, L3890.6300, L3890.6200, L500.2500, L3100.0300, BTSPAT, L3890.6005 ####[facility] [address] [place], [address] MCHC (RBC) [Mass/Vol] 31.2 g/dL Low 32-36 [facility] Comment on above: Performed By: #### L 100.0100, M100.651, L3890.6300, L3890.6200, L500.2500, L3100.0300, BTSPAT, L3890.6005 ####[facility] [address] [place], [address] MCV (RBC) [Entitic vol] 91.2 fL Normal 81-99 [facility] Comment on above: Performed By: #### L 100.0100, M100.651, L3890.6300, L3890.6200, L500.2500, L3100.0300, BTSPAT, L3890.6005 ####[facility] [address] [place], [address] Monocytes/100 WBC (Bld) 8.0 % Normal 0-10 [facility] Comment on above: Performed By: #### L 100.0100, M100.651, L3890.6300, L3890.6200, L500.2500, L3100.0300, BTSPAT, L3890.6005 ####[facility] [address] [place], [address] Neutrophils/100 WBC (Bld) 53.3 % Normal 47-70 [facility] Comment on above: Performed By: #### L 100.0100, M100.651, L3890.6300, L3890.6200, L500.2500, L3100.0300, BTSPAT, L3890.6005 ####[facility] [address] [place], [address] Nucleated RBC (Bld) [#/Vol] 0 10*3/uL Normal 0-5 [facility] Comment on above: Performed By: #### L 100.0100, M100.651, L3890.6300, L3890.6200, L500.2500, L3100.0300, BTSPAT, L3890.6005 ####[facility] [address] [place], [address] Platelet mean volume (Bld) [Entitic vol] 9.8 fL Normal 6.2-12.0 [facility] Comment on above: Performed By: #### L 100.0100, M100.651, L3890.6300, L3890.6200, L500.2500, L3100.0300, BTSPAT, L3890.6005 ####[facility] [address] [place], [address] Platelets (Bld) [#/Vol] 159 10*3/uL Normal 150-450 [facility] Comment on above: Performed By: #### L 100.0100, M100.651, L3890.6300, L3890.6200, L500.2500, L3100.0300, BTSPAT, L3890.6005 ####[facility] [address] [place], [address] RBC (Bld) [#/Vol] 3.62 10*6/uL Low 4.2-5.[address] [facility] Comment on above: Performed By: #### L 100.0100, M100.651, L3890.6300, L3890.6200, L500.2500, L3100.0300, BTSPAT, L3890.6005 ####[facility] [address] [place], [place], [phone](439) RDW SD 51.6 fl High 35.1-43.9 [facility] Comment on above: Performed By: #### L 100.0100, M100.651, L3890.6300, L3890.6200, L500.2500, L3100.0300, BTSPAT, L3890.6005 ####[facility] [address] [place], [address] WBC (Bld) [#/Vol] 4.7 10*3/uL Normal 4.4-11.0 [facility] Comment on above: Performed By: #### L 100.0100, M100.651, L3890.6300, L3890.6200, L500.2500, L3100.0300, BTSPAT, L3890.6005 ####[facility] [address] [place], [address] HIV - WCHon 03-17-2024 HIV Non-Reactive Normal Nonreactive [facility] Comment on above: Order Comment: Reaso n for Exam: PAT Performed By: #### L 100.0100, M100.651, L3890.6300, L3890.6200, L500.2500, L3100.0300, BTSPAT, L3890.6005 ####[facility] [address] [place], [place], [phone] Hepatitis B Surface Antibody on 03-17-2024 HEP B Surf Ab Reactive Normal [facility] Comment on above: Order Comment: Reaso n for Exam: PAT Result Comment: Non Reactive: Inconsistent with immunity less than <10 mIU/mL Reactive: Consistent with immunity greater than or equal to 10 mIU/mL Performed By: #### L 100.0100, M100.651, L3890.6300, L3890.6200, L500.2500, L3100.0300, BTSPAT, L3890.6005 ####[facility] [address] [place], [address] Hepatitis C Antibodyon 03-17 Hepatitis C AB Non-Reactive Normal Nonreactive [facility] Comment on above: Order Comment: Reaso n for Exam: PAT Result Comment: Non Reactive: < 0.8 Equivocal: >/= 0.8 to < 1.0 Reactive: >/= 1.0 The CDC requires that a reactive/equivocal HCV antibody result be sent out for confirmation. HCV Quant by PCR testing. Performed By: #### L 100.0100, M100.651, L3890.6300, L3890.6200, L500.2500, L3100.0300, BTSPAT, L3890.6005 ####[facility] [address] [place], [address] Magnesiumon 03-17-2024 Magnesium [Mass/Vol] 1.1 mg/dL Low 1.6-2.6 [facility] Comment on above: Performed By: #### L 501.5200, L501.9520 #### [facility] [address] [place], [address] Thyroid Stim Hormone (TSH)on 03-17-2024 TSH 0.423 uIU/mL Normal 0.358-3.740 [facility] Comment on above: Performed By: #### L 501.5200, L501.9520 #### [facility] [address] [place], [place], [address] Type AND Screen - PAT ONLYon 03-17-2024 ABO and Rh group Nom (Bld) Blood group O Rh(D) positive Normal [facility] Comment on above: Order Comment: Surge ry Date: 03/29/24Reason for Laboratory Test PRE-[id number] invasive Transforaminal Lumbar Interbody Fusi Performed By: #### L 100.0100, M100.651, L3890.6300, L3890.6200, L500.2500, L3100.0300, BTSPAT, L3890.6005 ####[facility] [address] [place], [address] 36on 03-15-2024 36 Notified yodit, no further questions. [place] [address] Rx sent to requested pharmacy on 02/13/24 for a 90 day supply plus one refill. [place] [address] Medication name: levothyroxine (Synthroid, Levoxyl) 100 MCG [...] to picking up the medication: Yes ' [place] [address] Sent again via rightfax. [place] [address] Name of caller: Aura patel ([facility]) Contact phone number: [phone] Relationship to Patient: na Provider: Dr. Key Practice: Amalia HERRON Chief Complaint/Reason for Call: States she received the other information but the results to Pt echocardiogram didn't come through. Requesting to have the results to echocardiogram faxed to [phone]. Please advise Best time of day caller can be reached: Any AM Patient advised that office/PCP has 24-48 business hours to return their call: Yes [place] [address] Yes pt bought it OTC and is taking 2000 units per day Normal [facility] 36 Per Maria Luisa's note she was to take this dose x12 weeks then transition to 2,000 units daily OTC. Normal [facility] 36 Prescription Request : Last medication check: 01/21/24 Last physical exam: 04/23/23 Next scheduled appointment: 05/04/24 Last date of refill on this medication 01/16/24 12 capsules no refill Normal [facility] Office Visiton 03-09-2024 Follow-up visit [id number] Juan Landin 1955 F Date Provider Department Center 03/09/2024 [id number]-QMDBYDALEZSEDRICK HEMPHILL [facility] Family History Problem Relation Age of Onset Ovarian cancer Mother Comments: 2000 Arthritis Father Hearing loss Father Stroke Father Prostate cancer Father Comments: 2001, recall ages Arthritis Brother Hearing loss Brother Hyperlipidemia Brother Prostate cancer Brother 71 Family Status - Relation Status Age at Mother Father Brother Level of Service:[address] [place] OFFICE/OUTPATIENT ESTABLISHED MOD MDM 30 MIN Reason for Visit and Comments: Pre-op Exam [[id number]] - Surgical clearance Normal [facility] PATINSon 03-09-2024 PATINS Vit d 2,000 international units daily over the counter. Normal [facility] Progress Noteon 03-09-2024 Progress Note Medical optimized fo r surgery. Normal [facility] Progress Note Controlled. Glucose readings consistently under 150. Continue metformin 1000 mg twice daily Normal [facility] Progress Note Mild elevation in bl ood pressure today. 146/76. Continue current medications Avapro 300 mg daily, chlorthalidone 25 mg daily, follow-up as directed. Normal [facility] Progress Note [facility] [address] [facility] [address] Dept: [phone] Dept Loc: [phone] Subjective Chief Complaint: Ms. Landin is a 68 y.o. female who presentsfor pre-operative evaluation. Planned surgery: MIS-TLIF at L5-S1 Surgeon: Dr. Rose- [facility] Date of Surgery: 03/29/2024 Plans to be overnight. Then home the next day. Will have PT at the rehab center in [place]. Has another appt next week- on the [...] complication, without long-term current use of insulin ([facility]) ([facility]) Assessment & Plan: Controlled. Glucose readings consistently [...] primary care provider as scheduled. 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 Health Maintenance Due Topic Hepatitis A Vaccines-declined RSV Immunization aged 60 or older-declined Diabetes: Dental Exam-needs completed COVID-19 Vaccine-declined Diabetes: Retinopathy Screening-02/20/2024 [facility] Diabetes: Foot Exam-pended [facility] 36on 03-05-2024 36 Scheduled with Maria Luisa 03/09/24, placed clearance form on her desk. [facility] 36 Received the forms t hat she needs scheduled for preop clearance [facility] 36on 03-04-2024 36 Name of caller: Juan stoney Contact phone number: [phone] Relationship to Patient: patient Provider: Dr Key [...] business hours to return their call: Yes [facility] 36on 02-26-2024 36 Sent [employer] message as requested by patient. [facility] 36 Should be taking vit d 50,000 international units weekly (prescription), then calcium 1200 mg over the counter daily Normal [facility] 36 Patient came in to l et us know she was told by Dr. Marroquin that she has to have an L5-S1 Spinal Fusion. It is not yet scheduled but they will send us something for clearance. He asked if she is taking any caltrate/vit D. She states she is not but asked if she should be? Normal [facility] Orthopedic Visit Reporton Orthopedic Visit Report [facility] [address] [place] [address] [address] [place] [address] OFFICE VISIT Date of Service: 02/26/24 MR#: [id number] Acct: [id number] Name: YODIT LANDIN Rep #: [id number] : 1955 Provider: Dr. Arnold Morton MD Age/Sex: 68/F Location[facility] Status: Signed Intake Vital Signs 02/05/24 16:00 [...] topical topical 01/16/24 02/26/24 History cream omega 6-gwk-exg-fish oil 1,200 mg cap PO 01/16/24 02/26/24 [...] and had a PT on site at [facility] who would adjust her hips when [...] Spondylolisthesis, l (more content not included)... Normal [facility] DBT Breast - bilateral scree gómez [...] Electronically Signed Date/Time: 02/24/2024 8:42 AM EDT [facility] Patient Name: YODIT ALNDIN : 1955 Exam Date/Time: 02/23/2024 10:59 Procedure: BI MAMMOGRAM SCREENING TOMOSYNTHESIS BILATERAL Ordering Provider: HEMPHILL REBECCA Reason For Exam: This exam was performed at: [facility] [address] [place] [address] RISK ALERT: The Cancer Risk Assessment scores [...] images: BB's = Nipples; skin lesions Open eek = Palpable Line = Scar COMPARISON: 01/01/2022, 02/12/2023 TISSUE DENSITY: BIRADS B - There are scattered areas of fibroglandular density. FINDINGS: No suspicious masses, architectural distortions or suspiciously clustered microcalcifications are identified. There is no evidence of skin thickening or nipple retraction. There are no significant changes when compared with prior studies. [facility] Sanjuanita Riley MD - 02/24/2024 Patient Name: YODIT LANDIN : 1955 Exam Date/Time: 02/23/2024 10:59 Procedure: BI MAMMOGRAM SCREENING TOMOSYNTHESIS BILATERAL Ordering Provider: HEMPHILL REBECCA Reason For Exam: This exam was performed at: [facility] [address] [place] [address] RISK ALERT: The Cancer Risk Assessment scores [...] images: BB's = Nipples; skin lesions Open eek = Palpable Line = Scar COMPARISON: 01/01/2022, [...] Electronically Signed Date/Time: 02/24/2024 8:42 AM EDT [facility] DBT Breast - bilateral scree octaviagOrdered By: Sanjuanita Riley on 02-24-2024 [employer] Work Phone: DBT Breast - bilateral scree octaviaclarissa 02-23-2024 Radiology Study observation (narrative) [employer] Spine Lumbar (Routine)on Spine Lumbar (Routine) [facility] [address] [place], [place] [address] Spine Lumbar (Routine) MR#: [id number] Acct: [id number] Name: JANETTYODIT VIVIAN Rep #: [id number] : 1955 F 68 From: Jaime Jeffriesdorina jimenez DO PCP: Dr. Moshe Key MD Status: REG CLI Study: Spine Lumbar (Routine) Date of Exam: 02/16/24 Exam# [id number] Ordering [place]: [place] [id number] EXAM: MR LUMBAR SPINE WITHOUT INTRAVENOUS CONTRAST [...] facet arthrosis. Mild spinal canal stenosis and hlkm-pl-iuaeorcd bilateral neural foraminal narrowing. L5-S1: Severe bilateral [...] Arnold Morton MD; Dr. Moshe Key MD Supervisor Beam Department: Signed [facility] 36on 02-13-2024 36 Notified, needs 90 d ay supply to mail order pharmacy. Normal [facility] 36 ----- Message from ASAF Ramos CNP sent at 02/13/2024 11:09 AM EDT ----- Tsh - normal, continue current dosing of levothyroxine 100 mcg daily Normal [facility] CT LUNG SCREENING LOW DOSEon 02-12-2024 [...] PM EDT Lung 3 LDCT 1 Yr [id number] Patient Name: YODIT LANDIN : 1955 Exam Date/Dani (more content not included)... Normal [facility] Progress Noteon 09-19-2024 Progress Note Venipuncture complet ed by [facility]. Normal [facility] US Heart TransthoracicOrdere d By: Uriel Macias on 02-12-2024 Ao Root Index 1.24 cm/[facility]2 [facility] Work Phone: Aortic Root 2.4 [facility] Work Phone: Aortic Sinus Valsalva 2.4 cm [facility] Work Phone: Aortic Sinus Valsalva Index 1.24 cm/m2 [facility] Work Phone: Ascending Aorta 3.1 cm [facility] Work Phone: Ascending Aorta Index 1.60 cm/m2 [facility] Work Phone: AV Area by Peak Velocity 1.4 cm2 [facility] Work Phone: AV Area by VTI 1.4 cm2 [facility] Work Phone: AV Mean Gradient 9 mmHg [facility] Work Phone: AV Mean Velocity 1.4 m/s [facility] Work Phone: AV Peak Gradient 16 mmHg [facility] Work Phone: AV Peak Velocity 2.0 m/s [facility] Work Phone: AV Velocity Ratio 0.65 [facility] Work Phone: AV VTI 41.6 cm [facility] Work Phone: ROOSE[place]ELT/BSA Peak Velocity 0.7 cm2/m2 [facility] Work Phone: ROOSE[place]ELT/BSA VTI 0.7 cm2/m2 [facility] Work Phone: E/E' Lateral 18.20 [facility] Work Phone: E/E' Ratio (Averaged) 18.20 [facility] Work Phone: E/E' Septal 18.20 [facility] Work Phone: EF BP 55 % 55 - 100 % [facility] [employer] Work Phone: Fractional Shortening 2D 33 % 28 - 44 % [facility] [employer] Work Phone: Global Longitudinal Strain -17.1 % [facility] [employer] Work Phone: Interpretation and review of laboratory results Abnormal [facility] [employer] Work Phone: IVC Diameter 1.1 cm [facility] [employer] Work Phone: IVSd 1.0 cm Abnormal 0.6 - 0.9 cm [facility] [employer] Work Phone: LA Diameter 3.5 cm [facility] [employer] Work Phone: LA Size Index 1.80 cm/m2 [facility] [employer] Work Phone: LA Volume 2C 61 mL Abnormal 22 - 52 mL [facility] [employer] Work Phone: LA Volume 4C 71 mL Abnormal 22 - 52 mL [facility] [employer] Work Phone: LA Volume A/L [address] [facility] [employer] Work Phone: LA Volume BP 65 mL Abnormal 22 - 52 mL [facility] [employer] [employer] Work Phone: LA Volume Index 2C 31 mL/m2 16 - 34 mL/m2 [facility] [employer] Work Phone: LA Volume Index 4C 37 mL/m2 Abnormal 16 - 34 mL/m2 [facility] Work Phone: LA Volume Index A/L 36 mL/m2 16 - 34 mL/m2 [facility] Work Phone: LA Volume Index BP 34 ml/m2 16 - 34 ml/m2 [facility] Work Phone: LA/AO Root Ratio 1.46 [facility] Work Phone: LV E' Lateral Velocity 5 cm/s [facility] Work Phone: LV E' Septal Velocity 5 cm/s [facility] Work Phone: LV EDV A2C 109 mL [facility] [employer] Work Phone: LV EDV A4C 89 mL [...] Health Work Phone: LVOT Area 2.3 cm2 [facility] Work Phone: LVOT Cardiac Output 4.8 liter/minute [facility] Work Phone: LVOT Diameter 1.7 cm [facility] Work Phone: LVOT Mean Gradient 4 mmHg [facility] Work Phone: LVOT Peak Gradient 6 mmHg [facility] Work Phone: LVOT Peak Velocity 1.3 m/s [facility] Work Phone: [phone] LVOT Stroke Volume Index 31.0 mL/m2 [facility] Work Phone: LVOT SV 60.1 ml [facility] Work Phone: LVOT VTI 26.5 cm [facility] Work Phone: [phone] LVOT:AV VTI Index 0.64 [facility] Work Phone: LVPWd 1.0 cm Abnormal 0.6 - 0.9 cm [facility] Work Phone: MV A Velocity 1.30 m/s [facility] Work Phone: MV E Velocity 0.91 m/s [facility] Work Phone: MV E Wave Deceleration Time 259.8 ms [facility] Work Phone: MV E/A 0.70 [facility] Work Phone: RA Area 4C 16.2 mL [facility] Work Phone: RV Basal Dimension 2.7 cm [facility] Work Phone: RV Free Wall Peak S' 11 cm/s [facility] Work Phone: RV Mid Dimension 1.5 cm [facility] Work Phone: Sinotubular Junction 2.0 cm [facility] Work Phone: TAPSE 2.0 cm 1.7 cm [facility] Work Phone: [employer] Work Phone: Heart Transthoracicon Left Ventricle: Left [...] PTon 02-10-2024 Inital Evaluation (1) - PT [facility] [address] [place] [address]. [address] [place] [address] / REHABILITATION SERVICES INITIAL EVALUATION MR#: [id number] Acct: [id number] Name: YODIT LANDIN Rep #: [id number] : 1955 68 From: Betty Cherry PT. T, OCS Referring Dr.: Dr. Arnold Morton MD Status: REG R Insurance: [facility] ADV LIFE1 SELF PAY INSURANCE Patient's [...] Response: No effect Lumbar Standing: Right Side Duncan - Symptoms During Testing: No effect Lumbar Standing: Right Side Duncan - Symptoms After Testing: No effect Lumbar Standing: Left Side Duncan - Mechanical Response: No effect Lumbar Standing: Left Side Duncan - Symptoms During Testing: Increases Lumbar Standing: Left Side Duncan - Symptoms After Testing: No worse Balance/Special [...] soft tissue re (more content not included)... [address] 02-09-2024 36 Just refilled to requesting pharmacy in November for a 90 day supply plus one refill. Not due for refill until May 2024. [facility] 36 Prescription Request : Last medication check: 01/21/24 Last physical exam: 04/23/23 Next scheduled appointment: 04/15/24 Last date of refill on this medication 12/03/[address] 02-06-2024 36 Patient scheduled on 03/12/2024 for lab draw recheck. Would not have enough medication to last her for 2 months. Rescheduled her appointment for 02/12/[address] 02-05-2024 36 Prescription Request : Last medication check: 10/22/23 Last physical exam: 04/23/23 Next scheduled appointment: 01/16/24 Last date of refill on this medication 01/16/24 [facility] Urgent Care Visit Reporton 0 02-05-2024 Urgent Care Visit Report [facility] [address], [address] [place] [address] OFFICE VISIT Date of Service: 02/05/24 MR#: [id number] Acct: [id number] Name: YODIT LANDIN Rep #: [id number] : 1955 Provider: KIZZY Negron Age/Sex: 68/F Location[place] [facility] Status: Signed Intake Vital Signs 01/16/24 11:04 [...] Reasons: SINUS CONGESTION 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 Normal [facility] Office Visiton 01-21-2024 Follow-up visit [id number] Juan Landin 1955 F Date Provider Department Center 01/21/2024 [id number] HEMPHILL [facility] Family History Problem Relation Age of Onset Ovarian cancer Mother Arthritis Father Hearing loss Father Stroke Father Arthritis Brother Hearing loss Brother Hyperlipidemia Brother Family Status - Relation Status Age at Mother Father Brother Level of Service:[address] [place] OFFICE/OUTPATIENT ESTABLISHED MOD MDM 30 MIN Reason for Visit and Comments: Diabetes [34] Normal [facility] PATINSon 01-21-2024 PATINS Bring in research records. -Please call Central Scheduling at [phone] to schedule your outpatient test (CT of lung for lung cancer screening) Normal [facility] Progress Noteon 01-21-2024 Progress Note Improving. Patient t o continue follow-up with podiatry as previously directed. Continue orthotics Normal [facility] Progress Note Noted new murmur on physical examination. Will obtain echocardiogram to further evaluate. Most recent EKG in August 2023 (preop)- sinus rhythm. Denies any shortness of breath or chest pain. Normal [facility] Progress Note Uncontrolled. Recent change in levothyroxine dose increased to 100 mcg daily. Recommend starting new dosing and rechecking TSH in 8 weeks Normal [facility] Progress Note Mild elevation in bl ood pressure today. 146/80. Continue current medications Avapro 300 mg daily, chlorthalidone 25 mg daily, follow-up as directed. Normal [facility] Progress Note Controlled, continue metformin 1000 mg twice daily Normal [facility] Progress Note Follow-up with human resources specialist as directed. [facility] Progress Note Health Maintenance Addressed with Patient at Visit: Micro-pended Hep A- declined Lung CT-pended RSV-declined DM dental- 2 years ago AWV- beto'd 05/04/24 Printed and faxed orders to [place]: Mammogram Echo CT Lung Normal [facility] Progress Note 01/21/2024 Yodit Landin (: 1955) is a 68 y.o. female , Established patient, here for evaluation of the following chief complaint(s): Diabetes And follow-up chronic conditions presents today for med check and follow-up on chronic conditions. ASSESSMENT/PLAN: 1. Type 2 diabetes mellitus without complication, without long-term current use of insulin ([facility]) ([facility]) Assessment & Plan: Controlled, continue metformin 1000 mg twice daily Orders: - Microalbumin / creatinine, urine ratio 2. Hypothyroidism, unspecified type Assessment & Plan: Uncontrolled. Recent change in levothyroxine dose increased to 100 mcg daily. Recommend starting new dosing and rechecking TSH in 8 weeks 3. Degenerative disc disease, lumbar Assessment & Plan: Follow-up with human resources specialist as directed. 4. Iron deficiency anemia, [...] Continue orthotics Follow up for 3 month [facility]. SUBJECTIVE/OBJECTIVE: HPI - Yodit Landin (: 1955) is a 68 y.o. female , Established patient, here for the evaluation of the following chief complaint(s): Diabetes Hearing deficit-just got new Hearing aids- has following up next week with loom stop checker Back pain-was referred to orthospine and reports seeing Dr. Marroquin (ortho-spine), for lumbar pain, is getting a MRI, and starting physical at [facility] in [place], still seeing chiropractor. States that she might end up getting back surgery. Denies any significant change in her symptoms, denies any bowel or bladder changes Foot pain-sees Dr. Brenner in [facility]- has inserts now and that is helping [...] Historical Provider, ergocalciferol (Vitamin D-2) 1.25 MG (07776 UT) capsule Take 1 capsule (1.25 mg) by mouth 1 (one) time per week. 01/16/24 04/09/24 Yes SedrickASAF Longoria CNP ferrous sulfate 325 (65 Fe) MG tablet Take 325 mg by mouth every other day. Yes Historical Provider, furosemide (Lasix) 20 MG tablet TAKE 1 TABLET BY MOUTH DAILY 12/29/23 Yes ASAF Ramos CNP indomethacin (Indo (more content not included)... Normal [facility] 36on 01-15-2023 36 Patient is agreeable , scheduled in 8 weeks, orders and med pended, pharmacy verified. Please update sig for B12 as well. Normal [facility] L/S Spine Min 4 Viewson 12-25 L/S Spine Min 4 Views [facility] [address] [place] [address] L/S Spine Min 4 Views MR#: [id number] Acct: [id number] Name: YODIT LANDIN Rep #: [id number] : 1955 F 68 From: Sabine goddard MD PCP: Care Physician,No Primary Status: DEP AMB Study: L/S Spine Min 4 Views Date of Exam: 01/16/24 Exam# [id number] Ordering Dr: Enriqueta [place] [id number] HISTORY: Low back pain -- Please do [...] CC: KIZZY Hebert; No Primary Care Physician Supervisor Beam Department: Signed Normal [facility] Orthopedic Visit Reporton Orthopedic Visit Report [facility] [address] [place] [address] OFFICE VISIT Date of Service: 01/16/24 MR#: [id number] Acct: [id number] Name: YODIT LANDIN Rep #: [id number] : 1955 Provider: Dr. Arnold Morton MD Age/Sex: 68/F Location[place] [facility] Status: Signed Intake Vital Signs 07/01/23 17:47 [...] topical topical 01/16/24 01/16/24 History cream omega 5-mfz-obe-fish oil 1,200 mg cap PO 01/16/24 01/16/24 [...] and had a PT on site at [facility] who would adjust her hips when [...] Physical Therapy Referra (more content not included)... [facility] 3601-15-2024 36 ----- Message from 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, ASAF - [employer] SU[employer] sent at 01/15/2024 4:16 PM EDT ----- Iron and TIBC still low normal range however gradually improving CBC-slight improvement in hemoglobin Ferritin-unchanged TSH-elevated, meaning we need to adjust the levothyroxine, recommend increasing to 100 mcg daily and rechecking in 8 weeks [id number] slightly elevated, may reduce B12 supplement to every other day Folate-normal Transferrin-normal Back to Top Vit d low- 25, recommend vitamin D 50,000 international units once weekly x 12 weeks, then 2000 international units daily [id number] (please see other results) Left a message [...] then no nurse visit is needed. Thanks! [facility] Progress Noteon 01-14-2024 Progress Note Venipuncture complet ed by [facility]. [facility] 36on 12-29-2023 36 Reviewed chart. Refi ll appropriate. RX sent. [place] [address] Prescription Request : Last date of refill on this medication Sent 10/22/[facility] day 1 refill [facility] 36on 12-26-2023 36 Spoke to patient, no questions. [place] [address]on 12-25-[address]23 [address] would fill out the form, since they are the ones ordering it. [facility] 36 Name of caller: Juan salgado Contact phone number: [phone] Relationship to Patient: patient Provider: 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 [...] business hours to return their call: Yes [facility] 36on 12-24-2023 36 Name of caller: Juan Landin Contact phone number: [phone] Relationship to Patient: patient Provider: Dr. Key Practice: [facility] Chief Complaint/Reason for Call: Patient is returning call from office regarding x-ray results. Please call patient back to discuss results. Please advise, thank you. Best time of day caller can be reached: Any Patient advised that office/PCP has 24-48 business hours to return their call: Yes [facility] 36 LM for pt to return call [place] [address] ----- Message from ASAF Ramos CNP sent [...] disc disease- recommend evaluation by orthospine doctor. [place] 7342012-12-[address] Jimenez had to be mailed out-no fax number provided on website, attempted calling them and no answer and unable to leave voicemail (recording kept rotating). My chart message sent to patient with list of [facility] that accept her insurance advised her to please let us know who she would like us to put a referral in for and to call them to be sure they accept her insurance. [facility] 36on 12-11-2023 36 Please see if we can get records from Dr. Trena Jimenez, chiropractor in [place]. Patient thinks she had imaging done in 2019? That Dr. Jimenez had ordered. Also would like Dr. Jimenez's last treatment plan Also- does she have anyone in mind for podiatry? She can check with her insurance to see who else is in network for her and I can make the referral if needed. [facility] 36on 12-10-2023 36 Patient stopped in today [...] someone would be in touch. Thank you! [facility] 36on 12-09-2023 36 Spoke to Yodit, send to [facility] please. Thanks! [facility] 36 What pharmacy does s he want this sent to [place] [address] Spoke to mariely Monsivais that her old doctor from [place], Dr. Caitlin Hope, was the one who prescribed it for her last, and gave her 23 refills. States that since she is no longer down in [place], she cannot get it filled through them. 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 [facility] 36 Refused, this does n ot look like we ever prescribed the medication [facility] 36 Prescription Request : Last medication check: 10/22/2023 Last physical exam: 04/23/2023 Next scheduled appointment: 01/21/2024 Last date of refill on this medication: 10/22/2022 [facility] Absolute lymphocyte countOrd ered By: Juan Jose Stallworth on 07-01-2023 Lymphocytes Auto (Unsp spec) [#/Vol] 2.12 10*3/uL 0.83-4.51 [facility] Automated lymphocyte count a s percentage of total leukocytesOrdered By: Juan Jose Stallworth on 07-01-2023 Lymphocytes/100 WBC Auto (Unsp spec) 31.6 % 19-41 [facility] Basophil percentageOrdered B y: Juan Jose Stallworth on 07-01-2023 Basophil percentage 5-10 SEEN /hpf 0-5 [facility] Basophils/100 WBC (Bld) 0.3 % 0-1 [facility] Chloride [Moles/Vol] 99 mmol/L 98-107 [facility] Eosinophils/100 WBC (Bld) 3.6 % 0-5 [facility] Glucose [Mass/Vol] 123 mg/dL 74-106 [facility] Comment on above: Fasting Glucose resu lt from 100 to 125 mg/dL suggests IMPAIRED HOMEOSTASIS per A.D.A. criteria. Hemoglobin (Bld) [Mass/Vol] 12.0 g/dL 12.0-15.0 [facility] Monocytes/100 WBC (Bld) 12.1 % 0-10 [facility] Neutrophils (Bld) [#/Vol] 3.5 10*3/uL 2.0-7.7 [facility] Neutrophils/100 WBC (Bld) 52.3 % 47-70 [facility] Potassium [Moles/Vol] 3.5 mmol/L 3.5-5.1 [facility] Sodium [Moles/Vol] 133 mmol/L 136-145 [facility] WBC (Bld) [#/Vol] 6.7 10*3/uL 4.4-11.0 [facility] Bilirubin Test strip Ql (U)O rdered By: Juan Jose Stallworth on 07-01-2023 Bilirubin Ql (U) 1 mg/dL Negative [facility] Comment on above: COLOR OF URINE MAY A FFECT DIPSTICK RESULTS. Determination of erythrocyte mean corpuscular volume (MCV)Ordered By: Juan Jose Stallworth on 07-01-2023 MCV (RBC) [Entitic vol] 89.3 fL 81-99 [facility] Erythrocyte distribution wid th ratioOrdered By: Juan Jose Stallworth on 07-01-2023 Erythrocyte distribution width (RBC) [Ratio] 13.5 % 11.6-14.6 [facility] Erythrocyte distribution wid th standard deviationOrdered By: Juan Jose Stallworth on 07-01-2023 Erythrocyte distribution width (RBC) [Entitic vol] 44.1 fL 35.1-43.9 [facility] Hematocrit Auto (Bld) [Volum e fraction]Ordered By: Juan Jose Stallworth on 07-01-2023 Hematocrit (Bld) [Volume fraction] 35.9 % 37-47 [facility] Immature granulocytes/100 WB C Auto (Bld)Ordered By: Juan Jose Stallworth on 07-01-2023 Immature granulocytes/100 WBC (Bld) 0.100 % 0.0-0.9 [facility] Comment on above: IG% - Immature Granu locytes (promyelocytes, myelocytes and metamyelocytes) > 1% indicates that a LEFT SHIFT is Present. Ketones Test strip Ql (U)Ord ered By: Jua nJose Stallworth on 07-01-2023 Ketones Ql (U) 5 mg/dl Negative [facility] Laboratory - Chemistry and C hemistry - challengeOrdered By: Juan Jose Stallworth on 07-01-2023 CO2 [Moles/Vol] 27.0 mmol/L 21.0-32.0 [facility] Urea nitrogen/Creatinine [Mass ratio] 20.3 mg/mg 10-20 [facility] - Hematology and Cell countsOrdered By: Juan Jose Stallworth on 07-01-2023 MCH (RBC) [Entitic mass] 29.9 pg 27.0-32.0 [facility] MCHC (RBC) [Mass/Vol] 33.4 g/dL 32-36 [facility] Nucleated RBC/100 WBC (Bld) [Ratio] 0 % 0-5 [facility] Platelet mean volume (Bld) [Entitic vol] 9.7 fL 6.2-12.0 [facility] Platelets (Bld) [#/Vol] 192 10*3/uL 150-450 [facility] Mucus LM Ql (Urine sed)Order ed By: Juan Jose Stallworth on 07-01-2023 Mucus Ql (Urine sed) 0 SEEN /hpf [facility] Nitrite Test strip Ql (U)Ord ered By: Juan Jose Stallworth on 07-01-2023 Nitrite Ql (U) Negative Negative [facility] No Panel InformationOrdered By: Juan Jose Stallworth on 07-01-2023 Urine RBC 0 SEEN /hpf 0-5 [facility] Estimated Creatinine Clearance Calc 27.28 ml/min [facility] Estimated GFR (MDRD) Amer 35 mL/min >60 [facility] Comment on above: GFR Calc Estimated GFR (MDRD) Non-Af Amer 29 mL/min >60 [facility] Comment on above: Non- GFR Calc Protein Test strip Ql (U)Ord ered By: Juan Jose Stallworth on 07-01-2023 Protein Ql (U) 15 mg/dl Negative [facility] RBC Auto (Bld) [#/Vol]Ordere d By: Juan Jose Stallworth on 07-01-2023 RBC (Bld) [#/Vol] 4.02 10*6/uL 4.2-5.[address] [facility] Serum or plasma calcium bettina urement (mass/volume)Ordered By: Juan Jose Stallworth on 07-01-2023 Calcium [Mass/Vol] 8.7 mg/dL 8.5-10.1 [facility] Serum or plasma creatinine m easurement (mass/volume)Ordered By: Juan Jose Stallworth on 07-01-2023 Creatinine [Mass/Vol] 1.82 mg/dL 0.55-1.02 [facility] Comment on above: The validity of the calculated GFR & GFRAA in patients over 70 years has not been determined. Clinical correlation is essential. Serum or plasma urea nitroge n measurement (mass/volume)Ordered By: Juan Jose Stallworth on 07-01-2023 Urea nitrogen [Mass/Vol] 37 mg/dL 7-18 [facility] Squamous epithelial cells de tection in urine sediment by light microscopyOrdered By: Juan Jose Stallworth on 07-01-2023 Epithelial cells.squamous LM Ql (Urine sed) 0-5 SEEN /hpf 5-10 [facility] Thin prep Papanicolaou smear with manual screeningOrdered By: Juan Jose Stallworth on 07-01-2023 Thin prep Papanicolaou smear with manual screening 7 5-15 [facility] Urine blood detectionOrdered By: Juna Jose Stallworth on 07-01-2023 RBC Ql (U) Negative Negative [facility] Urine clarityOrdered By: Reyes Stallworth on 07-01-2023 Clarity (U) Sl. Cloudy Clear [facility] Urine color determinationOrd ered By: Juan Jose Stallworth on 07-01-2023 Color (U) Yellow Yellow [facility] Urine glucose detectionOrder ed By: Juan Jose Stallworth on 07-01-2023 Glucose Ql (U) Normal mg/dl Normal [facility] Urine leukocyte esterase det ection by dipstickOrdered By: Juan Jose Stallworth on 07-01-2023 Leukocyte esterase Test strip Ql (U) 100 /ul Negative [facility] Urine pHOrdered By: Juan Jose randhawa on 07-01-2023 pH (U) 5.0 [pH] 5.0 - 8.0 [facility] Urine sediment bacteria coun t by microscopy (number/high power field)Ordered By: Juan Jose Stallworth on 07-01-2023 Bacteria LM.HPF (Urine sed) [#/Area] 0 /[HPF] None Seen [facility] Urine specific gravity measu rementOrdered By: Juan Jose Stallworth on 07-01-2023 Specific gravity (U) [Rel density] 1.020 1.002-1.030 [facility] Urine urobilinogen measureme ntOrdered By: Juan Jose Stallworth on 07-01-2023 Urobilinogen Ql (U) 4 mg/dl Normal [facility] XR WRIST MINIMUM 3 VIEWS RIG [...] 06/07/2023 7:22:26 AM Ordering Provider: SEDRICK HEMPHILL [facility] Vital Signs Date Time Vital Sign Value Performing Clinician Facility 06-28-2024 10:00-0500 Diastolic blood pressure 81 mm[Hg] 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 VERT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 - [employer] Work Phone: [facility] 06-28-2024 10:00-0500 Systolic blood pressure 140 mm[Hg] 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 VERT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 - [employer] Work Phone: [facility] [employer] 06-28-2024 09:30-0500 Body mass index (BMI) [Ratio] 35.95 kg/m2 Sedrick Bridenthal VERT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 - [employer] Work Phone: [facility] [employer] 06-28-2024 09:30-0500 Body weight 93.53 kg Sedrick Bridenthal VERT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 - [employer] Work Phone: [facility] [employer] 06-28-2024 09:30-0500 Heart rate 83 /min Sedrick Bridenthal VERT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 - [employer] Work Phone: [facility] [employer] 06-28-2024 09:30-0500 Respiratory rate 24 /min Sedrick Bridenthal VERT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 - [employer] Work Phone: [facility] [employer] 06-28-2024 09:30-0500 SaO2% (BldA) [Mass fraction] 98 % Sedrick Bridenthal VERT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 - [employer] Work Phone: [facility] [employer] 05-25-2024 10:47-0500 Body mass index (BMI) [Ratio] 35.08 kg/m2 Sedrick Bridenthal VERT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 - [employer] Work Phone: [facility] [employer] 05-25-2024 10:47-0500 Body temperature 97.7 [degF] Sedrick Bridenthal VERT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 - [employer] Work Phone: [facility] [employer] 05-25-2024 10:47-0500 Body weight 91.26 kg Sedrick Bridenthal VERT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 - [employer] Work Phone: [facility] [employer] 05-25-2024 10:47-0500 Diastolic blood pressure 73 mm[Hg] Sedrick Bridenthal VERT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 - [employer] Work Phone: [facility] [employer] 05-25-2024 10:47-0500 Heart rate 109 /min Sedrick Bridenthal VERT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 - [employer] Work Phone: [facility] [employer] 05-25-2024 10:47-0500 Respiratory rate 20 /min Sedrick Bridenthal VERT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 - [employer] Work Phone: [employer] 05-25-2024 10:47-0500 SaO2% (BldA) [Mass fraction] 96 % Sedrick Bridenthal VERT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 - [employer] Work Phone: [employer] 05-25-2024 10:47-0500 Systolic blood pressure 119 mm[Hg] Sedrick Bridenthal VERT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 - [employer] Work Phone: [employer] 05-04-2024 09:49-0500 Diastolic blood pressure 79 mm[Hg] Moshe Key MD Work Phone: [employer] 05-04-2024 09:49-0500 Heart rate 78 /min Moshe Key MD Work Phone: [employer] 05-04-2024 09:49-0500 Systolic blood pressure 134 mm[Hg] Moshe Key MD Work Phone: [employer] 05-04-2024 09:13-0500 Body height 161.3 cm Moshe Key MD Work Phone: [employer] 05-04-2024 09:13-0500 Body mass index (BMI) [Ratio] 35.61 kg/m2 Moshe Key MD Work Phone: [employer] 05-04-2024 09:13-0500 Body weight 92.63 kg Moshe Key MD Work Phone: [employer] 05-04-2024 09:13-0500 SaO2% (BldA) [Mass fraction] 96 % Moshe Key MD Work Phone: [employer] 03-09-2024 11:10-0400 Heart rate 76 /min Sedrick Bridenthal 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 [employer] Work Phone: [facility] [employer] Comment on above: apical 03-09-2024 10:57-0400 Body height 161.3 cm Sedrick Bridenthal 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 - [employer] Work Phone: [facility] [employer] 03-09-2024 10:57-0400 Body mass index (BMI) [Ratio] 35.33 kg/m2 Sedrick Karrieenthal V[employer]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 - [employer] Work Phone: [facility] [employer] 03-09-2024 10:57-0400 Body temperature 98.01 [degF] Sedrick Bridenthal V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 - [employer] Work Phone: [facility] [employer] 03-09-2024 10:57-0400 Body weight 91.9 kg Sedrick Bridenthal V[employer]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 - [employer] Work Phone: [facility] [employer] 03-09-2024 10:57-0400 Diastolic blood pressure 76 mm[Hg] Sedrick Bridenthal V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 - [employer] Work Phone: [facility] [employer] 03-09-2024 10:57-0400 Respiratory rate 18 /min Sedrick Bridenthal V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 - [employer] Work Phone: [facility] [employer] 03-09-2024 10:57-0400 SaO2% (BldA) [Mass fraction] 97 % Sedrick Bridenthal 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 - [employer] Work Phone: [facility] [employer] 03-09-2024 10:57-0400 Systolic blood pressure 146 mm[Hg] Sedrick Bridenthal V[employer]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 - [employer] Work Phone: [facility] [employer] 02-23-2024 11:17-0400 Body height 161.3 cm Sedrick Bridenthal V[employer]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 - [employer] Work Phone: [facility] [employer] 02-23-2024 11:17-0400 Body mass index (BMI) [Ratio] 34 kg/m2 Sedrick Bridenthal V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 - [employer] Work Phone: [facility] [employer] 02-23-2024 11:17-0400 Body weight 88.45 kg Sedrick Bridenthal V[employer]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 - [employer] Work Phone: [facility] [employer] 02-12-2024 14:31-0400 Body height 160 cm Sedrick Bridenthal V[employer]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 - [employer] Work Phone: [facility] [employer] 02-12-2024 14:31-0400 Body mass index (BMI) [Ratio] 35.78 kg/m2 Sedrick Bridenthal V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 - [employer] Work Phone: [employer] 02-12-2024 14:31-0400 Body weight 91.63 kg Sedrick Bridenthal V[employer]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 - [employer] Work Phone: [employer] 01-21-2024 11:19-0400 Diastolic blood pressure 80 mm[Hg] Sedrick Bridenthal V[employer]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 - [employer] Work Phone: [employer] 01-21-2024 11:19-0400 Systolic blood pressure 146 mm[Hg] Sedrick Bridenthal V[employer]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 - [employer] Work Phone: [employer] 01-21-2024 10:18-0400 Body mass index (BMI) [Ratio] 35.92 kg/m2 Sedrick Bridenthal V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 - [employer] Work Phone: [employer] 01-21-2024 10:18-0400 Body temperature 98.29 [degF] Sedrick Bridenthal V[employer]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 - [employer] Work Phone: [employer] 01-21-2024 10:18-0400 Body weight 91.99 kg Sedrick Bridenthal V[employer]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 - [employer] Work Phone: [employer] 01-21-2024 10:18-0400 Heart rate 101 /min Sedrick Bridenthal V[employer]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 - [employer] Work Phone: [employer] 01-21-2024 10:18-0400 Respiratory rate 20 /min Sedrick Bridenthal V[employer]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 - [employer] Work Phone: [employer] 01-21-2024 10:18-0400 SaO2% (BldA) [Mass fraction] 97 % Sedrick Bridenthal V[employer]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 - [employer] Work Phone: [employer] 12-01-2023 09:29-0400 Diastolic blood pressure 80 mm[Hg] Sedrick Bridenthal V[employer]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 - [employer] Work Phone: [employer] 12-01-2023 09:29-0400 Heart rate 64 /min Sedrick Karrieenthal V[employer]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 - [employer] Work Phone: [facility] [employer] 12-01-2023 09:29-0400 Systolic blood pressure 133 mm[Hg] Sedrick Bridenthal V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 - [employer] Work Phone: [facility] [employer] 12-01-2023 09:03-0400 Body height 160 cm Sedrick Bridenthal V[employer]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 - [employer] Work Phone: [facility] [employer] 12-01-2023 09:03-0400 Body mass index (BMI) [Ratio] 35.39 kg/m2 Sedrick Bridenthal V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 - [employer] Work Phone: [facility] [employer] 12-01-2023 09:03-0400 Body weight 90.63 kg Sedrick Bridenthal V[employer]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 - [employer] Work Phone: [facility] [employer] 12-01-2023 09:03-0400 SaO2% (BldA) [Mass fraction] 96 % Sedrick Karrieenthal V[employer]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 - [employer] Work Phone: [facility] [employer] 11-25-2023 13:02-0400 Body height 160 cm Nadya Biro PA-C Work Phone: [facility] [employer] 11-25-2023 13:02-0400 Body mass index (BMI) [Ratio] 35.78 kg/m2 Nadya Biro PA-C Work Phone: [facility] [employer] 11-25-2023 13:02-0400 Body weight 91.63 kg Nadya Biro PA-C Work Phone: [facility] [employer] 11-25-2023 13:02-0400 Diastolic blood pressure 66 mm[Hg] Nadya Biro PA-C Work Phone: [facility] [employer] 11-25-2023 13:02-0400 Systolic blood pressure 128 mm[Hg] Nadya Biro PA-C Work Phone: [facility] [employer] 10-22-2023 10:16-0400 Body mass index (BMI) [Ratio] 35.89 kg/m2 Sedrick Bridenthal V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 - [employer] Work Phone: [facility] [employer] 10-22-2023 10:16-0400 Body temperature 98.4 [degF] Sedrick Bridenthal V[employer]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 - [employer] Work Phone: [facility] [employer] 10-22-2023 10:16-0400 Body weight 91.9 kg Sedrick Bridenthal V[employer]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 - [employer] Work Phone: [facility] [employer] 10-22-2023 10:16-0400 Diastolic blood pressure 59 mm[Hg] Sedrick Bridenthal V[employer]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 - [employer] Work Phone: [facility] [employer] 10-22-2023 10:16-0400 Heart rate 65 /min Sedrick Bridenthal V[employer]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 - [employer] Work Phone: [facility] [employer] 10-22-2023 10:16-0400 Respiratory rate 18 /min Sedrick Bridenthal V[employer]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 - [employer] Work Phone: [facility] [employer] 10-22-2023 10:16-0400 SaO2% (BldA) [Mass fraction] 96 % Sedrick Bridenthal V[employer]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 - [employer] Work Phone: [facility] [employer] 10-22-2023 10:16-0400 Systolic blood pressure 139 mm[Hg] Sedrick Bridenthal V[employer]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 - [employer] Work Phone: [facility] [employer] 10-14-2023 12:57-0400 Body height 160 cm Nadya Biro PA-C Work Phone: [facility] [employer] 10-14-2023 12:57-0400 Body mass index (BMI) [Ratio] 35.43 kg/m2 Nadya Biro PA-C Work Phone: [facility] [employer] 10-14-2023 12:57-0400 Body weight 90.72 kg Nadya Biro PA-C Work Phone: [facility] [employer] 10-14-2023 12:57-0400 Diastolic blood pressure 78 mm[Hg] Nadya Biro PA-C Work Phone: [facility] [employer] 10-14-2023 12:57-0400 Systolic blood pressure 122 mm[Hg] Nadya Biro PA-C Work Phone: [facility] [employer] 09-16-2023 12:49-0400 Body height 160 cm Nadya Biro PA-C Work Phone: [facility] [employer] 09-16-2023 12:49-0400 Body mass index (BMI) [Ratio] 35.43 kg/m2 Nadya Biro PA-C Work Phone: [facility] [employer] 09-16-2023 12:49-0400 Body weight 90.72 kg Nadya Biro PA-C Work Phone: [facility] [employer] 09-16-2023 12:49-0400 Diastolic blood pressure 74 mm[Hg] Nadya Biro PA-C Work Phone: [facility] [employer] 09-16-2023 12:49-0400 Systolic blood pressure 126 mm[Hg] Nadya Biro PA-C Work Phone: [facility] [employer] 09-04-2023 10:18-0400 Body height 160 cm Sedrick Bridenthal V[employer]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 - [employer] Work Phone: [facility] [employer] 09-04-2023 10:18-0400 Body mass index (BMI) [Ratio] 36.67 kg/m2 Sedrick Bridenthal V[employer]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 - [employer] Work Phone: [facility] [employer] 09-04-2023 10:18-0400 Body weight 93.89 kg Sedrick Bridenthal V[employer]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 - [employer] Work Phone: [facility] [employer] 09-04-2023 10:18-0400 Diastolic blood pressure 74 mm[Hg] Sedrick Bridenthal V[employer]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 - [employer] Work Phone: [facility] [employer] 09-04-2023 10:18-0400 Heart rate 82 /min Sedrick Bridenthal V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 - [employer] Work Phone: [facility] [employer] 09-04-2023 10:18-0400 SaO2% (BldA) [Mass fraction] 94 % Sedrick Bridchristina V[employer]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 - [employer] Work Phone: [facility] [employer] 09-04-2023 10:18-0400 Systolic blood pressure 123 mm[Hg] 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 V[employer]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 - [employer] Work Phone: [facility] 09-03-2023 10:55-0400 Heart rate 74 /min Austin Loes MD Work Phone: [facility] 09-03-2023 10:55-0400 SaO2% (BldA) [Mass fraction] 98 % Austin Leos MD Work Phone: [facility] [employer] 09-03-2023 10:45-0400 Diastolic blood pressure 56 mm[Hg] Austin Leos MD Work Phone: [facility] 09-03-2023 10:45-0400 Systolic blood pressure 101 mm[Hg] Austin Leos MD Work Phone: [facility] 09-03-2023 10:35-0400 Respiratory rate 16 /min Austin Leos MD Work Phone: [facility] 09-03-2023 07:56-0400 Body height 160 cm Austin Leos MD Work Phone: [facility] 09-03-2023 07:56-0400 Body mass index (BMI) [Ratio] 35.43 kg/m2 Austin Leos MD Work Phone: [facility] 09-03-2023 07:56-0400 Body temperature 97.81 [degF] Austin Leos MD Work Phone: [facility] 09-03-2023 07:56-0400 Body weight 90.72 kg Austin Leos MD Work Phone: [facility] 08-05-2023 13:04-0400 Body height 161.3 cm Austin Leos MD Work Phone: [facility] [employer] 08-05-2023 13:04-0400 Body mass index (BMI) [Ratio] 33.83 kg/m2 Austin Leos MD Work Phone: [facility] [employer] 08-05-2023 13:04-0400 Body weight 88 kg Austin Leos MD Work Phone: [facility] [employer] 08-05-2023 13:04-0400 Diastolic blood pressure 68 mm[Hg] Austin Leos MD Work Phone: [facility] [employer] 08-05-2023 13:04-0400 Systolic blood pressure 104 mm[Hg] Austin Leos MD Work Phone: [facility] [employer] 07-24-2023 10:02-0500 Body mass index (BMI) [Ratio] 34.39 kg/m2 Sedrick Bridenthal V[employer]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 - [employer] Work Phone: [facility] [employer] 07-24-2023 10:02-0500 Body temperature 98.2 [degF] Sedrick Bridenthal V[employer]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 - [employer] Work Phone: [facility] [employer] 07-24-2023 10:02-0500 Body weight 90.27 kg Sedrick Bridenthal V[employer]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 - [employer] Work Phone: [employer] 07-24-2023 10:02-0500 Diastolic blood pressure 60 mm[Hg] Sedrick Bridenthal V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 - [employer] Work Phone: [facility] [employer] 07-24-2023 10:02-0500 Heart rate 50 /min Sedrick Bridenthal V[employer]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 - [employer] Work Phone: [facility] [employer] 07-24-2023 10:02-0500 Respiratory rate 24 /min Sedrick Bridenthal V[employer]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 - [employer] Work Phone: [employer] 07-24-2023 10:02-0500 SaO2% (BldA) [Mass fraction] 99 % Sedrick Bridenthal V[employer]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 - [employer] Work Phone: [facility] [employer] 07-24-2023 10:02-0500 Systolic blood pressure 96 mm[Hg] Sedrick Bridenthal V[employer]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 - [employer] Work Phone: [facility] 07-01-2023 20:00-0500 Diastolic blood pressure 74 mm[Hg] PA Gerry Gray PA Work Phone: [facility] 07-01-2023 20:00-0500 Heart rate 72 /min PA Gerry Gray PA Work Phone: [facility] 07-01-2023 20:00-0500 Respiratory rate 16 /min PA Gerry Gray PA Work Phone: [facility] 07-01-2023 20:00-0500 SaO2% (BldA) [Mass fraction] 98 % PA Gerry Gray PA Work Phone: [facility] 07-01-2023 20:00-0500 Systolic blood pressure 116 mm[Hg] PA Gerry Gray PA Work Phone: [facility] 07-01-2023 17:47-0500 Body height 160.02 cm PA Gerry Gray PA Work Phone: [facility] 07-01-2023 17:47-0500 Body mass index (BMI) [Ratio] 26.3 kg/m2 PA Gerry Gray PA Work Phone: [facility] 07-01-2023 17:47-0500 Body temperature 96.7 [degF] PA Gerry Gray PA Work Phone: [facility] 07-01-2023 17:47-0500 Body weight 67.44 kg PA Gerry Gray PA Work Phone: [facility] 07-01-2023 17:03-0500 Body mass index (BMI) [Ratio] 34.3 kg/m2 PA Gerry Gray PA Work Phone: [facility] 07-01-2023 17:03-0500 Body temperature 98.2 [degF] PA Gerry Gray PA Work Phone: [facility] 07-01-2023 17:03-0500 Body weight 87.99 kg PA Gerry Gray PA Work Phone: [facility] 07-01-2023 17:03-0500 Diastolic blood pressure 82 mm[Hg] PA Gerry DURAND Work Phone: [facility] 07-01-2023 17:03-0500 Heart rate 98 /min PA Gerry DURAND Work Phone: [facility] 07-01-2023 17:03-0500 Respiratory rate 14 /min PA Gerry DURAND Work Phone: [facility] 07-01-2023 17:03-0500 SaO2% (BldA) [Mass fraction] 93 % PA Gerry Gray PA Work Phone: [facility] 07-01-2023 17:03-0500 Systolic blood pressure 142 mm[Hg] PA Gerry Gray PA Work Phone: [facility] 06-04-2023 13:40-0500 Diastolic blood pressure 78 mm[Hg] Sedrick Bridenthal V[employer]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 - [employer] Work Phone: [facility] [employer] 06-04-2023 13:40-0500 Systolic blood pressure 131 mm[Hg] Sedrick Bridenthal V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 - [employer] Work Phone: [facility] [employer] 06-04-2023 13:11-0500 Body mass index (BMI) [Ratio] 35.26 kg/m2 Sedrick Bridenthal V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 - [employer] Work Phone: [facility] [employer] 06-04-2023 13:11-0500 Body temperature 98.4 [degF] Sedrick Bridenthal V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 - [employer] Work Phone: [facility] [employer] 06-04-2023 13:11-0500 Body weight 92.53 kg Sedrick Bridenthal V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 - [employer] Work Phone: [facility] [employer] 06-04-2023 13:11-0500 Heart rate 78 /min Sedrick Bridenthal V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 - [employer] Work Phone: [facility] [employer] 06-04-2023 13:11-0500 Respiratory rate 24 /min Sedrick Bridenthal V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 - [employer] Work Phone: [facility] [employer] 06-04-2023 13:11-0500 SaO2% (BldA) [Mass fraction] 98 % Sedrick Bridenthal V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 - [employer] Work Phone: [facility] [employer] 04-23-2023 10:06-0500 Body height 162 cm Sedrick Bridenthal V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 - [employer] Work Phone: [facility] [employer] 04-23-2023 10:06-0500 Body mass index (BMI) [Ratio] 34.74 kg/m2 Sedrick Bridenthal V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 - [employer] Work Phone: [facility] [employer] 04-23-2023 10:06-0500 Body temperature 97.81 [degF] Sedrick Bridenthal V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 - [employer] Work Phone: [facility] [employer] 04-23-2023 10:06-0500 Body weight 91.17 kg Sedrick Bridenthal V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 - [employer] Work Phone: [facility] [employer] 04-23-2023 10:06-0500 Diastolic blood pressure 87 mm[Hg] Sedrick Bridenthal V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 - [employer] Work Phone: [facility] [employer] 04-23-2023 10:06-0500 Heart rate 89 /min Sedrick Bridenthal V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 - [employer] Work Phone: [facility] [employer] 04-23-2023 10:06-0500 Respiratory rate 20 /min Sedrick Bridenthal V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 - [employer] Work Phone: [facility] [employer] 04-23-2023 10:06-0500 SaO2% (BldA) [Mass fraction] 93 % Sedrick Bridenthal V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 - [employer] Work Phone: [facility] [employer] 04-23-2023 10:06-0500 Systolic blood pressure 153 mm[Hg] Sedrick Bridenthal V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 - [employer] Work Phone: [facility] [employer] 04-02-2023 12:45-0500 Diastolic blood pressure 78 mm[Hg] Sedrick Bridenthal V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 - [employer] Work Phone: [facility] 04-02-2023 12:45-0500 Systolic blood pressure 132 mm[Hg] Sedrick Bridenthal V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 - [employer] Work Phone: [facility] 04-02-2023 11:07-0500 Body temperature 98.01 [degF] Sedrick Bridenthal V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 - [employer] Work Phone: [facility] 04-02-2023 11:07-0500 Body weight 92.08 kg Sedrick Bridenthal V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 - [employer] Work Phone: [facility] 04-02-2023 11:07-0500 Heart rate 78 /min Sedrick Bridenthal V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 - [employer] Work Phone: [facility] 04-02-2023 11:07-0500 Respiratory rate 24 /min Sedrick Bridenthal V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 - [employer] Work Phone: [facility] 04-02-2023 11:07-0500 SaO2% (BldA) [Mass fraction] 98 % Sedrick Bridenthal 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 - [employer] Work Phone: [facility] Encounters Encounter Date Encounter Type Care Provider Facility Start: 11-30-2024 End: 11-30-2024 Refill Sedrick Bridenthal 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 Work Phone: [facility] Comment on above: Hypothyroidism, unsp ecified type Start: 11-10-2024 End: 11-10-2024 Refill Sedrick Bridenthal 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 - [employer] Work Phone: [facility] Comment on above: Gastroesophageal ref lux disease without esophagitis; Swelling of both lower extremities Start: 09-23-2024 End: 09-23-2024 ambulatory [facility] [place] Start: 09-22-2024 End: 09-22-2024 Refill Moshe Key MD Work Phone: [facility] Comment on above: Hypothyroidism, unsp ecified type Start: 09-02-2024 End: 09-02-2024 Refill Jessica Smith 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 - [employer] Work Phone: [facility] Comment on above: Pure hypercholestero lemia Start: 08-30-2024 End: 08-30-[address] Moshe Key MD Work Phone: [facility] Work Phone: Start: 08-30-2024 End: 08-30-[address] Arnold Morton MD -[facility] Work Phone: Start: 08-30-2024 End: 08-30-2024 ambulatory Arnold Morton Facility:[facility] Start: 08-05-2024 End: 08-05-2024 ambulatory [facility] Start: 08-04-2024 End: 08-05-2024 Refill Jessica Smith 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 - [employer] Work Phone: [facility] Comment on above: Pure hypercholestero lemia Start: 07-30-2024 End: 07-30-[address] Arnold Morton MD -[facility] Work Phone: Start: 07-30-2024 End: 07-30-2024 ambulatory Moshe Yesi Facility[place] Start: 07-28-2024 End: 07-28-2024 Patient encounter procedure Tabby WALKER -[facility] Work Phone: Start: 07-28-2024 End: 07-28-2024 ambulatory [facility] Facility:[facility] Start: 07-19-2024 End: 07-19-2024 Refill 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 Work Phone: [facility] Comment on above: Post-nasal drainage; Primary hypertension Start: 07-07-2024 End: 07-07-2024 Patient encounter procedure Tabby WALKER -[facility] Work Phone: Start: 07-07-2024 End: 07-07-2024 ambulatory Moshe Key Facility:[facility] Start: 07-05-2024 End: 07-05-2024 Telephone encounter Moshe Key MD Work Phone: [facility] Start: 07-05-2024 End: 07-05-2024 ambulatory [facility] Start: 07-02-2024 End: 07-02-2024 Patient encounter procedure Enriqueta DURAND -[facility] Work Phone: Start: 07-02-2024 End: 07-02-2024 ambulatory Moshe Key Facility:[facility] Start: 06-28-2024 End: 06-28-2024 Office outpatient visit 15 minutes Sedrick Bridenthal 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 Work Phone[facility] Comment on above: Osteoarthritis of ri ght knee, unspecified osteoarthritis type (Primary Dx); Pure hypercholesterolemia Start: 06-28-2024 End: 06-28-2024 Office outpatient visit 25 minutes Sedrick Bridenthal 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 Work Phone: [facility] Comment on above: Osteoarthritis of ri ght knee, unspecified osteoarthritis type (Primary Dx); Pure hypercholesterolemia Start: 06-28-2024 End: 06-28-2024 ambulatory SEDRICK BRIDENTHAL [facility] Start: 06-10-2024 End: 06-10-2024 Refill Moshe Key MD Work Phone: [facility] Comment on above: Gastroesophageal ref lux disease without esophagitis; Vitamin D deficiency Start: 06-03-2024 End: 06-03-2024 ambulatory [facility] Start: 06-02-2024 End: 06-02-2024 Refill Sedrick Bridenthal 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 Work Phone: [facility] Start: 05-31-2024 End: 05-31-2024 ambulatory Arnold Morton Facility:[facility] Start: 05-31-2024 End: 05-31-[address] Arnold Morton MD -Physical Therapy Work Phone: Start: 05-25-2024 End: 06-16-2024 Telephone encounter Sedrick Bridenthal 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 Work Phone: [facility] Comment on above: Results Start: 05-25-2024 End: 05-25-2024 ambulatory SEDRICK BRIDENTHAL 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 Facility:[facility] Start: 05-25-2024 End: 05-25-2024 Patient encounter procedure SEDRICK KARRIEENTHAL 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/[employer] [facility] Start: 05-25-2024 End: 05-25-2024 Office outpatient visit 15 minutes Sedrick Karrieenthal V[employer]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 - [employer] Work Phone: [facility] Comment on above: Acute pain of right knee (Primary Dx) Start: 05-25-2024 End: 05-25-2024 ambulatory SEDRICK PAULAL [facility] Start: 05-24-2024 End: 05-24-2024 ambulatory Gerri Hazel RN [facility] Clinical Communication Start: 05-24-2024 End: 05-24-2024 Patient encounter [facility] Start: 05-13-2024 End: 05-13-2024 Patient encounter procedure Enriqueta DURAND -[facility] Work Phone: Start: 05-13-2024 End: 05-13-2024 ambulatory Moshe Key Facility[facility] Start: 05-04-2024 End: 05-04-2024 Patient encounter procedure Moshe Key MD Work Phone: [facility] Comment on above: Medicare annual well ness visit, subsequent (Primary Dx); Primary hypertension; Gastroesophageal reflux disease without esophagitis; Hereditary hemochromatosis (HCC); Acquired hypothyroidism; Type 2 diabetes mellitus without complication, without long-term current use of insulin (CMS/HCC) (HCC); Pure hypercholesterolemia; Immunization due Start: 05-04-2024 End: 05-04-2024 ambulatory MOSHESPARKLE KEY [facility] Start: 05-04-2024 End: 05-04-2024 Encounter for general adult medical examination without abnormal findings MOSHE YESI [facility] Start: 05-01-2024 End: 05-03-2024 Refill Sedrick Bridenthal [employer]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 - [employer] Work Phone: [facility] Comment on above: Primary hypertension Start: 04-16-2024 Encounter for other preprocedural examination [facility] Start: 04-15-2024 End: 04-15-2024 ambulatory Moshe Yesi Facility[facility] Start: 03-29-2024 End: 03-30-2024 ambulatory [facility] Facility:[facility] Start: 03-29-2024 ambulatory [facility] Start: 03-25-2024 End: 03-25-2024 Refill Moshe Key MD Work Phone: [facility] [employer] Start: 03-19-2024 End: 03-19-2024 ambulatory [facility] Start: 03-09-2024 End: 03-09-2024 Office outpatient visit 15 minutes Sedrick Bridenthal V[employer]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 - [employer] Work Phone: [facility] [place] Comment on above: Preoperative clearan ce (Primary Dx); Type 2 diabetes mellitus without complication, without long-term current use of insulin (CMS/HCC) (HCC); Primary hypertension Start: 03-09-2024 End: 03-09-2024 Office outpatient visit 25 minutes Sedrick Bridenthal V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 - [employer] Work Phone: [facility] [place] Comment on above: Preoperative clearan ce (Primary Dx); Type 2 diabetes mellitus without complication, without long-term current use of insulin (CMS/HCC) (HCC); Primary hypertension Start: 03-09-2024 End: 03-09-2024 Preoperative state Sedrick Bridenthal V[employer]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 - [employer] Work Phone: [facility] Work Phone: Start: 03-09-2024 End: 03-09-2024 [facility] Start: 03-09-2024 End: 03-09-2024 Encounter [facility] other [facility]cedural [facility] Start: 02-26-2024 End: 02-26-2024 [facility] Start: 02-23-2024 End: 02-23-2024 Subsequent hospital visit by physician 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 V[employer]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 - [employer] Work Phone: [facility] Comment on above: Encounter for screen ing mammogram for malignant neoplasm of breast Start: 02-23-2024 End: 02-23-2024 ambulatory [facility] Start: 02-16-2024 End: 02-16-2024 ambulatory [facility] Facility:[facility] Start: 02-13-2024 End: 02-13-2024 Telephone encounter Sedrick Karriechristina V[employer]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 - [employer] Work Phone: [facility] Comment on above: Results Start: 02-12-2024 End: 02-12-2024 Subsequent hospital visit by physician 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 V[employer]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 - [employer] Work Phone: [facility] Comment on above: Murmur, cardiac Start: 02-12-2024 End: 02-12-2024 [facility] Start: 02-12-2024 End: 02-12-2024 ambulatory MOSHE KEY [facility] Start: 02-09-2024 End: 02-09-2024 Subsequent hospital visit by physician 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 V[employer]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 - [employer] Work Phone: [facility] Comment on above: History of tobacco u se Start: 02-09-2024 End: 02-09-2024 [facility] Start: 02-05-2024 End: 02-05-2024 ambulatory Israel Clarence Facility:[facility] Start: 01-21-2024 End: 01-21-2024 Office outpatient visit 25 minutes 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 V[employer]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 - [employer] Work Phone: [facility] Comment on above: Type 2 diabetes willard itus without complication, without long- term current use of insulin ([facility]/HCC) (HCC) (Primary Dx); Hypothyroidism, unspecified type; Degenerative disc disease, lumbar; Iron deficiency anemia, unspecified iron deficiency anemia type; Primary hypertension; History of tobacco use; Encounter for screening mammogram for malignant neoplasm of breast; Murmur, cardiac; Bilateral foot pain Start: 01-21-2024 End: 01-21-2024 ambulatory SEDRICK HEMPHILL [facility] Start: 01-16-2024 End: 01-16-2024 ambulatory No Primary Care Physician Facility:[facility] Start: 01-15-2024 End: 01-16-2024 Telephone encounter 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 V[employer]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 - [employer] Work Phone: [facility] Comment on above: Results Start: 01-14-2024 End: 01-14-2024 ambulatory [facility] Start: 12-26-2023 End: 12-29-2023 Refill 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 V[employer]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 - [employer] Work Phone: [facility] Comment on above: Swelling of both low er extremities Start: 12-24-2023 End: 12-24-2023 Telephone encounter 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 V[employer]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 - [employer] Work Phone: [facility] Comment on above: Results Start: 12-17-2023 End: 12-17-2023 Subsequent hospital visit by physician 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 V[employer]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 - [employer] Work Phone: [facility] Radiology Comment on above: Chronic left-sided l ow back pain without sciatica Start: 12-17-2023 End: 12-17-2023 ambulatory [facility] Start: 12-10-2023 End: 12-15-2023 Telephone encounter 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 V[employer]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 - [employer] Work Phone: [facility] Start: 12-09-2023 End: 12-10-2023 Vivian Key MD Work Phone: [facility] Start: 12-03-2023 End: 12-03-2023 Telephone encounter Sedrick Millerhenry V[employer]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 - [employer] Work Phone: [facility] Comment on above: Results Start: 12-01-2023 End: 12-01-2023 Office outpatient visit 15 minutes Sedrick Yoonchristina V[employer]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 - [employer] Work Phone: [facility] Comment on above: Left buttock pain (P rimary Dx); Bilateral foot pain; Colon cancer screening Start: 11-25-2023 End: 11-25-2023 Postop follow up visit related to original px Nadya Biro PA-C Work Phone: [facility] Comment on above: Mass of joint of rig ht wrist (Primary Dx); S/P excision of ganglion cyst Start: 10-22-2023 End: 12-10-2023 Telephone encounter Orthopedic Work Phone: [facility] Clinical Communication Comment on above: FYI Start: 10-22-2023 End: 10-22-2023 Office outpatient visit 25 minutes Sedrick Yoonchristina V[employer]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 - [employer] Work Phone: [facility] Comment on above: Type 2 diabetes willard itus without complication, without long- term current use of insulin (CMS/HCC) (HCC) (Primary Dx); Hereditary hemochromatosis (HCC); Swelling of both lower extremities; Bilateral foot pain; Primary hypertension Start: 10-14-2023 End: 10-14-2023 Postop follow up visit related to original px Nadya Biro PA-C Work Phone: [facility] Comment on above: Mass of joint of rig ht wrist; S/P excision of ganglion cyst Start: 09-16-2023 End: 09-16-2023 Postop follow up visit related to original px Nadya Biro PA-C Work Phone: [facility] Comment on above: S/P excision of gang lion cyst (Primary Dx); Mass of joint of right wrist Start: 09-04-2023 ambulatory Iris Morales RN [facility] Clinical Communication Start: 09-04-2023 Patient encounter procedure Iris campbell RN [facility] Clinical Communication Start: 09-04-2023 End: 09-04-2023 Office outpatient visit 10 minutes Sedrick Bridenthal V[employer]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 - [employer] Work Phone: [facility] Medicine Comment on above: Visit for wound chec k (Primary Dx) Start: 09-03-2023 End: 09-03-2023 Subsequent hospital visit by physician Austin Leos MD Work Phone: [facility] Comment on above: H/O excision of mass (Primary Dx); Ganglion, right wrist Start: 08-19-2023 Telephone encounter Moshe Evans MD Work Phone: [facility] Medicine Comment on above: appt with Dr. Alvin Beltran, DPM<9>on 2:45 Start: 08-08-2023 ambulatory Nadya Sewell Work Phone: [facility] Orthopedic Surg Start: 08-05-2023 Telephone encounter Austin ruiz MD Work Phone: [facility] Comment on above: Surgery Scheduling ( Surgery Scheduling) Start: 08-05-2023 End: 08-05-2023 Office outpatient new 30 minutes Austin Leos MD Work Phone: [facility] Comment on above: Mass of joint of rig ht wrist Start: 07-24-2023 End: 07-24-2023 Office outpatient visit 25 minutes Sedrick Karrieenthal VERT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 - [employer] Work Phone: [facility] Comment on above: Hereditary hemochrom atosis (HCC) (Primary Dx); Primary hypertension; Type 2 diabetes mellitus without complication, without long-term current use of insulin ([facility]/HCC) (HCC); Bilateral foot pain; Mass of joint of right wrist; Other specified hypothyroidism Start: 07-01-2023 End: 07-01-2023 Emergency department patient visit KIZZY DURAND Work Phone: [facility] Work Phone: Start: 07-01-2023 End: 07-01-2023 Patient encounter procedure KIZZY DURAND Work Phone: [facility] Work Phone: Start: 06-09-2023 Telephone encounter Moshe Evans MD Work Phone: [facility] Start: 06-05-2023 End: 06-06-2023 ambulatory SEDRICK BRIDENTHAL 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 Facility:[facility] Start: 06-05-2023 End: 06-05-2023 Patient encounter procedure SEDRICK BRIDENTHAL VERT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/[employer] SUPPORT TECHNICIANS [facility] Start: 06-04-2023 End: 06-04-2023 Office outpatient visit 15 minutes Sedrick Bridenthal V[employer]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 - [employer] Work Phone: [facility] Comment on above: Mass of joint of rig ht wrist (Primary Dx) Start: 04-23-2023 End: 04-23-2023 Assay of hemosiderin, quant Sedrick Bridenthal V[employer]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 - [employer] Work Phone: [facility] Work Phone: Start: 04-23-2023 End: 04-23-2023 Patient encounter procedure Sedrick Bridenthal VERT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 - [employer] Work Phone: [facility] Comment on above: Routine general medi luly examination at health care facility (Primary Dx); Type 2 diabetes mellitus without complication, without long-term current use of insulin (CMS/HCC) (HCC); Primary hypertension; Hereditary hemochromatosis (HCC); Hypothyroidism, unspecified type; Immunization due Start: 04-02-2023 End: 04-02-2023 Office outpatient new 45 minutes 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 V[employer]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 - [employer] Work Phone: [facility] Comment on above: Type 2 diabetes willard itus without complication, without long- term current use of insulin (CMS/HCC) (HCC) (Primary Dx); Hereditary hemochromatosis (HCC); Primary hypertension Start: 03-21-2023 Telephone encounter Sedrickdony buchanan VERT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 - [employer] Work Phone: [facility] Comment on above: New Patient Procedures Date Procedure Procedure Detail Performing Clinician Start: 08-30-2024 MRI of cervical spine Severiano Key MD Work Phone: Start: 08-05-2024 Lipid 1995 panel - S rosendo or Plasma Jessica Smith V[employer]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 - [employer] Work Phone: Start: 07-30-2024 X-ray of cervical spine Dr. Moshe Key MD Work Phone: Start: 07-05-2024 Lipid 1995 panel - S rosendo or Plasma Sedrick Colin V[employer]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 - [employer] Work Phone: Start: 07-02-2024 X-ray of lumbar spin e, two or three views Dr. Moshe Key MD Work Phone: Start: 06-03-2024 Lipid 1995 panel - S rosendo or Plasma Moshe Key MD Work Phone: Start: 06-03-2024 Thyrotropin [Units/volume] in Serum or Plasma Moseh Key MD Work Phone: Start: 05-13-2024 X-ray [...] 03-06-2024 Adult depression screening assessment 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 V[employer]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 - [employer] Work Phone: Start: 02-23-2024 End: 02-23-2024 Screening digital breast tomosynthesis bi Sedrick Milleral VERT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 - [employer] Work Phone: Start: 02-12-2024 Echo tthrc r-t 2d w/wom-mode compl spec&colr d Sedrick Milleral V[employer]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 - [employer] Work Phone: Start: 02-12-2024 Thyrotropin [Units/volume] in Serum or Plasma Sedrick Karrieenthal VERT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 - [employer] Work Phone: Start: 01-14-2024 Thyrotropin [Units/volume] in Serum or Plasma Sedrick Karrieenthal VERT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 - [employer] Work Phone: Start: 08-05-2023 Colonoscopy Austin wolfe MD Work Phone: Start: 05-07-2023 Lipid 1996 panel - S rosendo or Plasma Sedrick Karrieenthal V[employer]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 - [employer] Work Phone: Start: 05-07-2023 Thyrotropin [Units/volume] in Serum or Plasma Sedrick Karrieenthal VERT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 - [employer] Work Phone: Start: 04-23-2023 Adult depression screening assessment Sedrickray Yoonenthal VERT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 - [employer] Work Phone: Start: 04-02-2023 Adult depression screening assessment Sedrickray Milleral VERT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 - [employer] Work Phone: Start: 02-12-2023 Mammography Sedrick cohenthal V[employer]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 - [employer] Work Phone: H/O: surgery H/O excision of mass Austin Leos MD Work Phone: Plan of Treatment Date Care Activity Detail Author Start: 08-04-2033 Screening for malignant neoplasm of colon [facility] Start: 2029 RSV Immunization for Adults (1 - 1-dose 75+ series) RSV Immunization for Adults (1 - 1-dose 75+ series) [facility] Start: 01-19-2027 Screening for malignant neoplasm of colon Colorectal Cancer Screening [facility] Comment on above: Postponed from 1954 (Other System Reasons) Start: 12-04-2026 Screening for malignant neoplasm of colon FIT-DNA [facility] Start: 04-23-2026 Screening for malignant neoplasm of colon Colorectal Cancer Screening [facility] Comment on above: Postponed from 1954 (Other Patient Reasons) Start: 08-05-2025 Lipid panel Lipid Panel [facility] Start: 07-05-2025 Lipid panel Lipid Panel [facility] Start: 06-03-2025 Lipid panel Lipid Panel [facility] Start: 06-03-2025 Thyroid stimulating hormone measurement TSH Level [facility] Start: 05-05-2025 End: 05-05-2025 Patient encounter procedure 05/05/2025 10:20 AM EST Office Visit [facility] [address] [place] [address] 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, V[employer]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 - [employer] [address] [place] [address] [facility] Start: 05-04-2025 Diabetes: Estimated Glomerular Filtration Rate for Kidney Health Diabetes: Estimated Glomerular Filtration Rate for Kidney Health [facility] Start: 05-04-2025 Hemoglobin A1c measurement Diabetes: Hemoglobin A1C [facility] Start: 05-04-2025 Lipid panel Lipid Panel [facility] Start: 05-04-2025 Preventive dental service Diabetes: Dental Exam [facility] Comment on above: Postponed from 04/23/2023 (Patient Refus ed) Start: 05-04-2025 Thyroid stimulating hormone measurement TSH Level [facility] Start: 05-03-2025 Depression Screening Depression Screening [facility] Start: 03-09-2025 Diabetic foot examination Diabetes: Foot Exam [facility] Start: 03-06-2025 Depression Screening Depression Screening [facility] Start: 02-22-2025 Screening for malignant neoplasm of breast Mammogram [facility] Start: 02-14-2025 Glaucoma screening Diabetes: Retinopathy Screening [facility] Start: 02-11-2025 Thyroid stimulating hormone measurement TSH Level [facility] Start: 02-08-2025 Screening for malignant neoplasm of lung Lung Cancer Screening [facility] Start: 01-24-2025 Influenza vaccination Influenza Vaccine (#1) [facility] Start: 01-20-2025 Diabetes: Urine Albumin-Creatinine Ratio for Kidney Health Diabetes: Urine Albumin-Creatinine Ratio for Kidney Health [facility] Start: 01-13-2025 Thyroid stimulating hormone measurement TSH Level [facility] Start: 10-21-2024 Diabetes: Estimated Glomerular Filtration Rate for Kidney Health Diabetes: Estimated Glomerular Filtration Rate for Kidney Health [facility] Start: 08-26-2024 Hemoglobin A1c measurement Diabetes: Hemoglobin A1C [facility] Start: 08-22-2024 COVID-19 Vaccine ( season) COVID-19 Vaccine () [facility] Start: 08-05-2024 End: 08-05-2024 Clinical Support 08/05/2024 9:30 AM EDT Clinical Support [facility] [address] [place] [address] [address] [facility] Start: 07-28-2024 Diabetes: Estimated Glomerular Filtration Rate for Kidney Health Diabetes: Estimated Glomerular Filtration Rate for Kidney Health [facility] Start: 07-05-2024 End: 07-05-2024 Clinical Support 07/05/2024 9:30 AM EST Clinical Support [facility] [address] [place] [address] [facility] Start: 06-28-2024 End: 06-28-2024 Patient encounter procedure 06/28/2024 9:20 AM EST Office Visit [facility] [place] [address] [place] [address] 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, V[employer]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 - [employer] [address] [place] [address] [facility] Start: 06-24-2024 COVID-19 Vaccine () COVID-19 Vaccine () [facility] Start: 06-03-2024 End: 06-03-2024 Clinical Support 06/03/2024 9:30 AM EST Clinical Support [facility] [place] [address] [place] [address] [facility] Start: 05-26-2024 Medicare [facility] Annual Wellness Visit Medicare Advantage Annual Wellness Visit [facility] Start: 05-25-2024 End: 05-25-2025 XR Knee - right 4 Views XR knee 4+ views right Imaging Routine Acute pain of right knee Expected: 05/25/2024, Expires: 05/25/2025 [facility] Work Phone: Comment on above: Expected: 05/25/2024, Expires: Start: 05-25-2024 End: 05-25-2024 Patient encounter procedure 05/25/2024 10:40 AM EST Office Visit [facility] [place] [address] [place] [address] 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, V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 - [employer] [address] [place] [address] [facility] Start: 05-07-2024 Hemoglobin A1c measurement Diabetes: Hemoglobin A1C [facility] Start: 05-07-2024 Lipid panel Lipid Panel [facility] Start: 05-07-2024 Thyroid stimulating hormone measurement TSH Level [facility] Start: 05-04-2024 End: 05-04-2025 CBC W Auto Differential panel - Blood CBC auto differential Lab Routine Hereditary hemochromatosis (HCC) Expected: 05/04/2024 (Approximate), Expires: 05/04/2025 [facility] Comment on above: Expected: 05/04/2024 (Approximate), Expi res: 05/04/2025 Start: 05-04-2024 End: 05-04-2025 Comprehensive metabolic 1998 panel - Serum or Plasma Comprehensive metabolic panel Lab Routine Type 2 diabetes mellitus without complication, without long-term current use of insulin (CMS/HCC) (HCC) Expected: 05/04/2024 (Approximate), Expires: 05/04/2025 [facility] Comment on above: Expected: 05/04/2024 (Approximate), Expi res: 05/04/2025 Start: 05-04-2024 End: 05-04-2025 Ferritin [Mass/volume] in Serum or Plasma Ferritin Lab Routine Hereditary hemochromatosis (HCC) Expected: 05/04/2024 (Approximate), Expires: 05/04/2025 [facility] Comment on above: Expected: 05/04/2024 (Approximate), Expi res: 05/04/2025 Start: 05-04-2024 End: 05-04-2025 Hemoglobin A1c measurement Hemoglobin A1c Lab Routine Type 2 diabetes mellitus without complication, without long-term current use of insulin (CMS/HCC) (HCC) Expected: 05/04/2024 (Approximate), Expires: 05/04/2025 [facility] Comment on above: Expected: 05/04/2024 (Approximate), Expi res: 05/04/2025 Start: 05-04-2024 End: 05-04-2025 Iron and Iron binding capacity panel - Serum or Plasma Iron and TIBC Lab Routine Hereditary hemochromatosis (HCC) Expected: 05/04/2024 (Approximate), Expires: 05/04/2025 [facility] Comment on above: Expected: 05/04/2024 (Approximate), Expi res: 05/04/2025 Start: 05-04-2024 End: 05-04-2025 Lipid 1996 panel - Serum or Plasma Lipid panel Lab Routine Pure hypercholesterolemia Expected: 05/04/2024 (Approximate), Expires: 05/04/2025 [facility] Work Phone: Comment on above: Expected: 05/04/2024 (Approximate), Expi res: 05/04/2025 Start: 05-04-2024 End: 05-04-2025 Thyrotropin [Units/volume] in Serum or Plasma TSH Lab Routine Acquired hypothyroidism Expected: 05/04/2024 (Approximate), Expires: 05/04/2025 [facility] Comment on above: Expected: 05/04/2024 (Approximate), Expi res: 05/04/2025 Start: 05-04-2024 End: 05-04-2024 Patient encounter procedure [facility] Start: 04-27-2024 Medicare Advantage Annual Wellness Visit Medicare Advantage Annual Wellness Visit [facility] Comment on above: Postponed from 05/26/2023 (Other System Reasons) Start: 04-23-2024 Depression Screening Depression Screening [facility] Start: 04-23-2024 Diabetic foot examination Diabetes: Foot Exam [facility] Start: 04-23-2024 Screening for osteoporosis Bone Density Scan [facility] Comment on above: Postponed from 1954 (Patient Refus ed) Start: 04-23-2024 Zoster Vaccines (1 of 2) Zoster Vaccines (1 of 2) [facility] Comment on above: Postponed from 2004 (Patient Refus ed) Start: 04-23-2024 Zoster Vaccines (2 of 2) Zoster Vaccines (2 of 2) [facility] Comment on above: Postponed from 02/19/2022 (Patient Refus ed) Start: 04-15-2024 End: 04-15-2024 Patient encounter procedure [facility] Start: 04-02-2024 COVID-19 Vaccine (#1) COVID-19 Vaccine (#1) [facility] Comment on above: Postponed from [birth year]/14/1956 (Patient Refus ed) Start: 04-02-2024 COVID-19 Vaccine ( season) COVID-19 Vaccine ( season) [facility] Comment on above: Postponed from 01/24/2023 (Patient Refus ed) Start: 04-02-2024 Depression Screening Depression Screening [facility] Start: 04-02-2024 DTaP/Tdap/Td Vaccines (1 - Tdap) DTaP/Tdap/Td Vaccines (1 - Tdap) [facility] Comment on above: Postponed from 1973 (Patient Refus ed) Start: 04-02-2024 Hepatitis C screening Hepatitis C Screening [facility] Comment on above: Postponed from 1972 (Patient Refus ed) Start: 03-12-2024 End: 03-12-2024 Clinical Support 03/12/2024 9:00 AM EDT Clinical Support [address] [address] [facility] Start: 02-23-2024 End: 02-23-2024 Patient encounter procedure 02/23/2024 11:[address] [facility] [address] [place] [address] 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, V[employer]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 - [employer] [address] [place] [address] [facility] Start: 02-21-2024 End: 03-22-2025 DBT Breast - bilateral screening Bilateral screening mammogram with tomosynthesis Imaging Routine Encounter for screening mammogram for malignant neoplasm of breast Expected: 02/21/2024, Expires: 03/22/2025 [facility] Comment on above: Expected: 02/21/2024, Expires: Start: 02-15-2024 Glaucoma screening Diabetes: Retinopathy Screening [facility] Start: 02-15-2024 End: 01-14-2025 Thyrotropin [Units/volume] in Serum or Plasma TSH Lab Routine Hypothyroidism, unspecified type Expected: 02/15/2024 (Approximate), Expires: 01/14/2025 [facility] Work Phone: Comment on above: Expected: 02/15/2024 (Approximate), Expi res: 01/14/2025 Start: 02-13-2024 Screening for malignant neoplasm of breast Mammogram [facility] Start: 02-12-2024 End: 02-12-2024 Clinical Support [facility] Start: 01-25-2024 COVID-19 Vaccine ( season) COVID-19 Vaccine ( season) [facility] Start: 01-25-2024 Influenza vaccination [facility] Start: 01-21-2024 End: 01-19-2025 CT Chest for screening WO contrast CT lung screening low dose Imaging Routine History of tobacco use Expected: 01/21/2024, Expires: 01/19/2025 [facility] Comment on above: Expected: 01/21/2024, Expires: Start: 01-21-2024 End: 01-19-2025 Microalbumin/Creatinin e panel in random Urine Microalbumin / creatinine, urine ratio Lab Routine Type 2 diabetes mellitus without complication, without long-term current use of insulin ([facility]/HCC) (HCC) Expected: 01/21/2024 (Approximate), Expires: 01/19/2025 [facility] Work Phone: Comment on above: Expected: 01/21/2024 (Approximate), Expi res: 01/19/2025 Start: 01-21-2024 End: 01-20-2026 US Heart Transthoracic Transthoracic echocardiogram (TTE) complete with contrast, bubble, strain, and 3D PRN CV Echocardiography Routine Murmur, cardiac Expected: 01/21/2024 (Approximate), Expires: 01/20/2026 [facility] Comment on above: Expected: 01/21/2024 (Approximate), Expi res: 01/20/2026 Start: 01-21-2024 End: 01-21-2024 Patient encounter procedure 01/21/2024 10:20 AM EDT Office Visit [facility] [address] [place] [address] 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, V[employer]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 - [employer] [address] [place], [place] [phone] [facility] Start: 01-14-2024 End: 12-02-2024 CBC W Auto Differential panel - Blood CBC auto differential Lab Routine Iron deficiency anemia, unspecified iron deficiency anemia type Expected: 01/14/2024 (Approximate), Expires: 12/02/2024 [facility] Work Phone: Comment on above: Expected: 01/14/2024 (Approximate), Expi res: 12/02/2024 Start: 01-14-2024 End: 12-02-2024 Cobalamin (Vitamin B12) [Mass/volume] in Serum or Plasma Vitamin B12 Lab Routine Anemia, unspecified type Expected: 01/14/2024 (Approximate), Expires: 12/02/2024 [facility] [employer] Comment on above: Expected: 01/14/2024 (Approximate), Expi res: 12/02/2024 Start: 01-14-2024 End: 12-02-2024 Ferritin [Mass/volume] in Serum or Plasma Ferritin Lab Routine Iron deficiency anemia, unspecified iron deficiency anemia type Expected: 01/14/2024 (Approximate), Expires: 12/02/2024 [facility] Comment on above: Expected: 01/14/2024 (Approximate), Expi res: 12/02/2024 Start: 01-14-2024 End: 12-02-2024 Folate [Mass/volume] in Serum or Plasma Folate Lab Routine Anemia, unspecified type Expected: 01/14/2024 (Approximate), Expires: 12/02/2024 [facility] Comment on above: Expected: 01/14/2024 (Approximate), Expi res: 12/02/2024 Start: 01-14-2024 End: 12-02-2024 Iron and Iron binding capacity panel - Serum or Plasma Iron and TIBC Lab Routine Iron deficiency anemia, unspecified iron deficiency anemia type Expected: 01/14/2024 (Approximate), Expires: 12/02/2024 [facility] Comment on above: Expected: 01/14/2024 (Approximate), Expi res: 12/02/2024 Start: 01-14-2024 End: 12-02-2024 Thyrotropin [Units/volume] in Serum or Plasma TSH Lab Routine Anemia, unspecified type Hypothyroidism, unspecified type Expected: 01/14/2024 (Approximate), Expires: 12/02/2024 [facility] [employer] Comment on above: Expected: 01/14/2024 (Approximate), Expi res: 12/02/2024 Start: 01-14-2024 End: 12-02-2024 Transferrin [Mass/volume] in Serum or Plasma Transferrin Lab Routine Iron deficiency anemia, unspecified iron deficiency anemia type Expected: 01/14/2024 (Approximate), Expires: 12/02/2024 [facility] Comment on above: Expected: 01/14/2024 (Approximate), Expi res: 12/02/2024 Start: 01-14-2024 End: 01-14-2024 Clinical Support 01/14/2024 10:00 AM EDT Clinical Support [facility] [address] [place] [address] [place] [address] [facility] Start: 12-24-2023 End: 12-23-2024 25-hydroxyvitamin D3 [Mass/volume] in Serum or Plasma Vitamin D Deficiency Screening (Vit D 25) Lab Routine Osteopenia of lumbar spine Expected: 12/24/2023 (Approximate), Expires: 12/23/2024 [facility] [employer] [facility] Work Phone: Comment on above: Expected: 12/24/2023 (Approximate), Expi res: 12/23/2024 Start: 12-24-2023 End: 12-23-2024 DXA Skeletal system.axial Views for bone density DEXA bone density axial skeleton Imaging Routine Osteopenia of lumbar spine Expected: 12/24/2023, Expires: 12/23/2024 [facility] [employer] Comment on above: Expected: 12/24/2023, Expires: Start: 12-15-2023 End: 12-14-2024 XR Lumbar spine Views W flexion and W extension XR lumbar spine 4-5 view Imaging Routine Chronic left-sided low back pain without sciatica Expected: 12/15/2023, Expires: 12/14/2024 [facility] Work Phone: Comment on above: Expected: 12/15/2023, Expires: Start: 12-06-2023 Screening for malignant neoplasm of colon Colorectal Cancer Screening [facility] Start: 12-01-2023 End: 12-01-2023 Clinical Support 12/01/2023 9:00 AM EDT Clinical Support [facility] [address] [facility] [place] [address] [facility] Start: 11-25-2023 End: 11-25-2023 Patient encounter procedure 11/25/2023 1:00 PM EDT Office Visit [facility] [address] [place] [phone] Nadya Harkins PA-C [address] [place] [address] [address] [place] [address] [facility] Start: 11-23-2023 Influenza vaccination Influenza Vaccine (#1) [facility] Comment on above: Postponed from 01/24/2023 (Patient Refus ed) Start: 10-29-2023 Screening for malignant neoplasm of colon [facility] Start: 10-22-2023 End: 10-21-2024 CBC W Auto Differential panel - Blood CBC auto differential Lab Routine Hereditary hemochromatosis (HCC) Expected: 10/22/2023 (Approximate), Expires: 10/21/2024 [facility] Work Phone: Comment on above: Expected: 10/22/2023 (Approximate), Expi res: 10/21/2024 Start: 10-22-2023 End: 10-21-2024 Comprehensive metabolic 1998 panel - Serum or Plasma Comprehensive metabolic panel Lab Routine Type 2 diabetes mellitus without complication, without long-term current use of insulin (CMS/HCC) (HCC) Swelling of both lower extremities Expected: 10/22/2023 (Approximate), Expires: 10/21/2024 [facility] Comment on above: Expected: 10/22/2023 (Approximate), Expi res: 10/21/2024 Start: 10-22-2023 End: 10-21-2024 Ferritin [Mass/volume] in Serum or Plasma Ferritin Lab Routine Hereditary hemochromatosis (HCC) Expected: 10/22/2023 (Approximate), Expires: 10/21/2024 [facility] Comment on above: Expected: 10/22/2023 (Approximate), Expi res: 10/21/2024 Start: 10-22-2023 End: 10-21-2024 Iron and Iron binding capacity panel - Serum or Plasma Iron and TIBC Lab Routine Hereditary hemochromatosis (HCC) Expected: 10/22/2023 (Approximate), Expires: 10/21/2024 [facility] Comment on above: Expected: 10/22/2023 (Approximate), Expi res: 10/21/2024 Start: 10-22-2023 RSV Immunization aged 60 or older (1 - 1-dose 60+ series) RSV Immunization aged 60 or older (1 - 1-dose 60+ series) [facility] Comment on above: Postponed from 2014 (Patient Refus ed) Start: 10-22-2023 Screening for malignant neoplasm of lung Lung Cancer Screening [facility] Comment on above: Postponed from 2004 (Patient Refus ed) Start: 10-22-2023 End: 10-22-2023 Patient encounter procedure 10/22/2023 10:20 AM EDT Office Visit [facility] [address] [place] [address] [place] [address] 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, 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 [address] [place] [address] [place] [address] [facility] Start: 10-14-2023 End: 10-14-2023 Patient encounter procedure 10/14/2023 1:30 PM EDT Office Visit [facility] [address] [place] [phone] Nadya Harkins PA-C [address] [facility] [address] [place], [place] [id number] [facility] Start: 09-16-2023 End: 09-16-2023 Patient encounter procedure [facility] Start: 09-03-2023 End: 09-03-2023 Admission to same day surgery center 09/03/2023 9:30 AM EDT - 09/03/2023 10:30 AM EDT Surgery [facility] [address] [place] [phone] Austin Leos MD [address] [facility] [address] [place], [place] [id number] RIGHT VOLAR RADIAL WRIST MASS EXCISION [92112 (CPT )] [facility] Comment on above: RIGHT VOLAR RADIAL WRIST MASS EXCISION [ 55299 (CPT )] Start: 09-03-2023 Subsequent hospital visit by physician 09/03/2023 9:30 AM EDT Hospital Encounter [facility] [address] [place] [address] Austin Leos MD [address] [facility] [address] [place] [address] [facility] Start: 09-03-2023 End: 09-03-2023 Excision ganglion wrist dorsal/volar primary [facility] Operating Room Start: 08-27-2023 End: 08-27-2023 Admission to establishment 08/27/2023 10:00 AM EDT Pre-Admission Testing [facility] Pre-Admit Testing [address] [place] [address] [facility] Pre-Admit Testing Start: 08-05-2023 End: 08-05-2023 Patient encounter procedure 08/05/2023 1:00 PM EDT Office Visit [facility] [address] [place] [phone] Austin Leos MD [address] [facility] [address] [place] [address] [facility] Start: 07-24-2023 End: 07-23-2024 CBC W Auto Differential panel - Blood CBC auto differential Lab Routine Hereditary hemochromatosis (HCC) Expected: 07/24/2023 (Approximate), Expires: 07/23/2024 [facility] Work Phone: Comment on above: Expected: 07/24/2023 (Approximate), Expi res: 07/23/2024 Start: 07-24-2023 End: 07-23-2024 Ferritin [Mass/volume] in Serum or Plasma Ferritin Lab Routine Hereditary hemochromatosis (HCC) Expected: 07/24/2023 (Approximate), Expires: 07/23/2024 [facility] Comment on above: Expected: 07/24/2023 (Approximate), Expi res: 07/23/2024 Start: 07-24-2023 End: 07-23-2024 Iron and Iron binding capacity panel - Serum or Plasma Iron and TIBC Lab Routine Hereditary hemochromatosis (HCC) Expected: 07/24/2023 (Approximate), Expires: 07/23/2024 [facility] Comment on above: Expected: 07/24/2023 (Approximate), Expi res: 07/23/2024 Start: 07-24-2023 End: 07-24-2023 Patient encounter procedure 07/24/2023 10:00 AM EST Office Visit [facility] [address] [facility] [place] [address] 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, 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 [address] [facility] [place] [address] [facility] Start: 07-01-2023 [facility] Start: 06-04-2023 End: 06-04-2024 XR Wrist - right 3 Views XR wrist 3+ views right Imaging Routine Mass of joint of right wrist Expected: 06/04/2023, Expires: 06/04/2024 [facility] Work Phone: Comment on above: Expected: 06/04/2023, Expires: Start: 05-26-2023 Medicare Advantage Annual Wellness Visit Medicare Advantage Annual Wellness Visit [facility] Start: 05-07-2023 End: 05-07-2023 Clinical Support 05/07/2023 10:00 AM EST Clinical Support [facility] [address] [facility] [place] [address] [facility] Start: 04-23-2023 End: 04-23-2024 CBC panel - Blood by Automated count CBC Lab Routine Hereditary hemochromatosis (HCC) Expected: 04/23/2023 (Approximate), Expires: 04/23/2024 [facility] [employer] Comment on above: Expected: 04/23/2023 (Approximate), Expi res: 04/23/2024 Start: 04-23-2023 End: 04-23-2024 Ferritin [Mass/volume] in Serum or Plasma Ferritin Lab Routine Hereditary hemochromatosis (HCC) Expected: 04/23/2023 (Approximate), Expires: 04/23/2024 [facility] Comment on above: Expected: 04/23/2023 (Approximate), Expi res: 04/23/2024 Start: 04-23-2023 End: 04-23-2024 Hemoglobin A1c measurement Hemoglobin A1c Lab Routine Type 2 diabetes mellitus without complication, without long-term current use of insulin (CMS/HCC) (HCC) Expected: 04/23/2023 (Approximate), Expires: 04/23/2024 [facility] Comment on above: Expected: 04/23/2023 (Approximate), Expi res: 04/23/2024 Start: 04-23-2023 End: 04-23-2024 Iron and Iron binding capacity panel - Serum or Plasma Iron and TIBC Lab Routine Hereditary hemochromatosis (HCC) Expected: 04/23/2023 (Approximate), Expires: 04/23/2024 [facility] Work Phone: Comment on above: Expected: 04/23/2023 (Approximate), Expi res: 04/23/2024 Start: 04-23-2023 End: 04-23-2024 Lipid 1996 panel - Serum or Plasma Lipid panel Lab Routine Type 2 diabetes mellitus without complication, without long-term current use of insulin (CMS/HCC) (HCC) Expected: 04/23/2023 (Approximate), Expires: 04/23/2024 [facility] Comment on above: Expected: 04/23/2023 (Approximate), Expi res: 04/23/2024 Start: 04-23-2023 Preventive dental service Diabetes: Dental Exam [facility] Start: 04-23-2023 End: 04-23-2024 Thyrotropin [Units/volume] in Serum or Plasma TSH Lab Routine Hypothyroidism, unspecified type Expected: 04/23/2023 (Approximate), Expires: 04/23/2024 [facility] Comment on above: Expected: 04/23/2023 (Approximate), Expi res: 04/23/2024 Start: 04-23-2023 End: 04-23-2023 Patient encounter procedure 04/23/2023 10:00 AM EST Office Visit [facility] [address] [facility] [place] [address] 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, 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 [employer] [address] [facility] [place] [address] [facility] Start: 04-02-2023 End: 04-02-2023 Patient encounter procedure 04/02/2023 11:00 AM EST Office Visit [facility] [address] [place] [address] PaulSedrick figueroa, 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 [address] [facility] [place] [address] [facility] Start: 01-24-2023 Influenza vaccination Influenza Vaccine (#1) [facility] Start: 02-19-2022 Zoster Vaccines (2 of 2) Zoster Vaccines (2 of 2) [facility] Start: 2019 Pneumococcal Vaccine: 65+ Years (1 - PCV) Pneumococcal Vaccine: 65+ Years (1 - PCV) [facility] Start: 2014 RSV Immunization aged 60 or older (1 - 1-dose 60+ series) RSV Immunization aged 60 or older (1 - 1-dose 60+ series) [facility] Start: 2014 RSV Immunization for Adults (1 - Risk 60-74 years 1-dose series) RSV Immunization for Adults (1 - Risk 60-74 years 1-dose series) [facility] Start: 2004 Screening for malignant neoplasm of lung Lung Cancer Screening [facility] Start: 2004 Zoster Vaccines (1 of 2) Zoster Vaccines (1 of 2) [facility] Start: 1994 Screening for malignant neoplasm of breast Mammogram [facility] Start: 1973 DTaP/Tdap/Td Vaccines (1 - Tdap) DTaP/Tdap/Td Vaccines (1 - Tdap) [facility] Start: 1973 Hepatitis A Vaccines (1 of 2 - Risk 2-dose series) Hepatitis A Vaccines (1 of 2 - Risk 2-dose series) [facility] Start: 1972 Diabetes: Urine Albumin-Creatinine Ratio for Kidney Health Diabetes: Urine Albumin-Creatinine Ratio for Kidney Health [facility] Start: 1972 Hepatitis C screening Hepatitis C Screening [facility] Start: 1966 Depression Screening Depression Screening [facility] Start: 1964 Diabetic foot examination Diabetes: Foot Exam [facility] Start: 1964 Glaucoma screening Diabetes: Retinopathy Screening [facility] Start: 1964 Preventive dental service Diabetes: Dental Exam [facility] Start: 1960 Pneumococcal Vaccine: 65+ Years (1 - PCV) Pneumococcal Vaccine: 65+ Years (1 - PCV) [facility] Start: 01-14-1955 COVID-19 Vaccine (#1) COVID-19 Vaccine (#1) [facility] Start: 1954 DISCONTINUED Medicare Advantage Annual Wellness Visit (AWV) DISCONTINUED Medicare Advantage Annual Wellness Visit (AWV) [facility] Start: 1954 Hemoglobin A1c measurement Diabetes: Hemoglobin A1C [facility] Start: 1954 Lipid panel Lipid Panel [facility] Start: 1954 Medicare Advantage Annual Wellness Visit (AWV) Medicare Advantage Annual Wellness Visit (AWV) [facility] Start: 1954 Screening for malignant neoplasm of colon [facility] Start: 1954 Screening for osteoporosis Bone Density Scan [facility] Start: 1954 Thyroid stimulating hormone measurement TSH Level [facility] [employer] Cologuard colon canc er screening Cologuard colon cancer screening Lab Routine Colon cancer screening Ordered: 12/01/2023 [employer] [facility] Work Phone: Comment on above: Ordered: 12/01/2023 End: 02-09-2024 CT Chest for screening WO contrast [facility] Work Phone: Comment on above: Once for 1 Occurrences starting 02/09/20 until 02/09/2024 Patient Education ED Vertigo, Un specified ED Gastroenteritis, Viral (Adult) [facility] Work Phone: Patient referral [facility] Work Phone: Tissue exam [facility] [employer] Work Phone: Comment on above: Release Upon Ordering for 1 Occurrences starting 09/03/2023 XR Knee GE 4 Views [facility] End: 12-17-2023 XR Lumbar spine Views W flexion and W extension [facility] Work Phone: Comment on above: Once for 1 Occurrences starting 12/17/19 24 until 12/17/2023 [place] Immunizations Immunization Date Immunization Notes Care Provider [facility] 05-04-2024 diphtheria, tetanus toxoids and acellular pertussis vaccine, unspecified formulation Moshe Key MD Work Phone: [facility] 05-04-2024 zoster vaccine-recombinant adjuvanted (Shingrix) 50 MCG/0.5ML vaccine Moshe Key MD Work Phone: [facility] 02-23-2024 Pfizer SARS-CoV-2 Vaccination Sedrick Bridenthal 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 Work Phone: [facility] 01-12-2024 influenza virus vacc ine, unspecified formulation Sedrick Bridenthal 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 Work Phone: [facility] 01-12-2024 influenza, high dose seasonal, preservative-free Sedrick Bridenthal 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 Work Phone: [facility] 04-23-2023 Pneumococcal Conjuga te PCV20, Pf (Prevnar 20) Sedrick Bridenthal 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 Work Phone: [facility] 03-01-2022 Moderna SARS-CoV-2 Vaccination Sedrick Bridenthal 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 Work Phone: [facility] 02-25-2022 Influenza, Seasonal, Quadrivalent, Adjuvanted Sedrick Bridenthal 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 Work Phone: [facility] 02-25-2022 influenza virus vacc ine, unspecified formulation Sedrick Bridenthal 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 Work Phone: [facility] 12-25-2021 zoster vaccine recombinant Sedrick Bridenthal 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 Work Phone: [facility] 04-12-2021 Moderna SARS-CoV-2 Vaccination Sedrick Bridenthal 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 Work Phone: [facility] 03-16-2021 Influenza, Seasonal, Quadrivalent, Adjuvanted Sedrick Bridenthal 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 Work Phone: [facility] 09-04-2020 Moderna SARS-CoV-2 Vaccination Sedrick Bridenthal 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 Work Phone: [facility] 08-07-2020 Moderna SARS-CoV-2 Vaccination Sedrick Bridenthal 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 Work Phone: [facility] 03-17-2009 influenza virus vacc ine, whole virus Sedrick Bridenthal 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 Work Phone: [facility] 03-17-2009 influenza virus vacc ine, unspecified formulation Sedrick Bridenthal 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 Work Phone: [facility] 05-30-2003 hepatitis B vaccine, adult dosage Sedrick Bridenthal 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 Work Phone: [facility] 12-20-2002 hepatitis B vaccine, adult dosage Sedrick Bridenthal 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 Work Phone: [facility] 11-15-2002 hepatitis B vaccine, adult dosage Sedrick Bridenthal 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 Work Phone: [facility] Payers Date Payer Category Payer Self-pay 2023 Private Health Insurance [id number] 2023 Medicare O [id number] 2023 Medicare [id number] 2022 Medicare [id number] 1954 Unknown [id number] 1954 Unknown [id number] Private Health Insurance [facility] [id number] Unknown ANTHEM [id number] Unknown [id number] Unknown [id number] [id number] Unknown [id number] 2..[id number] Unknown [id number] [id number] Unknown [id number] 2..840.1.060609.3.579.2.462 Unknown [id number] 2..[id number] Unknown [id number] [id number] Unknown [id number] 2.840.1.065888.3.579.2.462 Unknown [id number] 2.840.1.275446.3.579.2.462 Unknown [id number] 2.840.1.717050.3.579.2.462 Unknown [id number] 2.840.1.929997.3.579.2.462 Unknown [id number] 2.840.1.220121.3.579.2.462 Unknown [id number] 2.840.1.193730.3.579.2.462 Unknown [id number] 2..840.1.216201.3.579.2.462 Unknown [id number] 2.16.840.1.408919.3.579.2.462 Unknown [id number] 2.840.1.518974.3.579.2.462 Unknown [id number] [id number] Unknown [id number] Unknown [id number] Unknown [id number] Unknown [id number] Unknown [id number] Unknown [id number] Unknown [id number] Social History Date Type Detail Facility Start: 07-01-2023 Tobacco smoking stat [facility] Tobacco smoking consumption unknown [facility] Start: 1955 Sex Assigned At Not on file [facility] Start: 04-02-2023 End: 05-04-2024 Gender identity Not on file [facility] [employer] Start: 04-02-2023 End: 02-23-2024 Tobacco smoking status WVIS Ex-smoker [facility] [employer] Start: 05-26-1989 End: 05-26-2019 History of tobacco use Current smoker [facility] Start: 05-26-1989 End: 05-26-2019 History of tobacco use Cigarette Smoker [facility] [employer] Start: 04-02-2023 End: 05-04-2024 Cigarettes smoked current (pack per day) - Reported 1 [facility] [employer] Start: 04-02-2023 End: 02-23-2024 Tobacco use and exposure Smokeless tobacco non-user [facility] [employer] Start: 04-02-2023 End: 05-25-2024 Alcohol intake Ex-drinker (finding) [facility] Adolescent depressio n screening assessment 1 [facility] [employer] (I/We) worried wheth er (my/our) food would run out before (I/we) got money to buy more. Never true [facility] Start: 1955 Sex Assigned At Female W [facility] Within the last year , have you been afraid of your partner or ex-partner? No [facility] Start: 03-21-2023 End: 09-03-2024 Sex Female (finding) [facility] Do you belong to any clubs or organizations such as mosque groups, unions, fraternal or athletic groups, or school groups? Yes [facility] Are you now , , , , never or living with a partner? [facility] How often to you hav e a drink containing alcohol? Never [facility] How hard is it for y ou to pay for the very basics like food, housing, medical care, and heating Not very hard [facility] Do you feel stress - tense, restless, nervous, or anxious, or unable to sleep at night because your mind is troubled all the time - these days [OSQ] Not at all [employer] NEGATED: Highlighted rowStart: NINF History of tobacco use Passive smoker [facility] [employer] Medical Equipment Procedure Code Equipment Code Equipment [...] transitioning to prone Collagen haemostatic agent, non-antimicrobial ()[id number] FDA Start: 03-29-2024 Fusion, spine, lumbar, 360 [...] Note Reviewed chart. Refill appropriate. RX sent. [facility] 11-30-2024 Miscellaneous Notes Formattin g of this note might be different from the original. Reviewed chart. Refill appropriate. RX sent. documented in this encounter [facility] 11-10-2024 Telephone encount er Note Reviewed chart. Refill appropriate. RX sent. [facility] 11-10-2024 Miscellaneous Notes Formattin g of this note might be different from the original. Reviewed chart. Refill appropriate. RX sent. Prescription Request: Last medication check: 06/28/24 Last physical exam: 05/04/24 Next scheduled appointment: 05/05/25 Last date of refill on this medication: omeprazole 06/10/24 Furosemide 12/29/23 documented in this encounter [facility] 11-10-2024 Telephone encount er Note Prescription Request: Last medication check: 06/28/24 Last physical exam: 05/04/24 Next scheduled appointment: 05/05/25 Last date of refill on this medication: omeprazole 06/10/24 Furosemide 12/29/23 [facility] 09-22-2024 Telephone encount er Note error [facility] 09-22-2024 Telephone encount er Note S: The patient is calling the [facility] about the cholesterol B: Reviewed the [...] question Protocols used: Medication Refill and Renewal Axll-PCJII-QL [facility] 09-22-2024 Miscellaneous Notes Formattin g of this note might be different from the original. error documented in this encounter [facility] 09-22-2024 Miscellaneous Notes Formattin g of [...] question Protocols used: Medication Refill and Renewal Pugx-PQAUL-ZR documented in this encounter [facility] [employer] 09-02-2024 Telephone encount er Note Prescription Request: Rosuvastatin Calcium 10 MG Oral Tablet Fenofibrate 160 MG Oral Tablet Last medication check: 06/28/24 Last physical exam: 05/04/24 Next scheduled appointment: 05/05/25 Last date of refill on this medication Rosuvastatin - 08/06/24 (Qty 90 refill 1) Fenofibrate - 08/06/24 (qty 90 refill 1) [facility] [employer] 09-02-2024 Miscellaneous Notes Formattin g of this [...] 90 refill 1) documented in this encounter [facility] [employer] 08-05-2024 Telephone encount er Note Reviewed chart. Refill appropriate. RX sent. [facility] 08-05-2024 Miscellaneous Notes Formattin g of this note might be different from the original. Reviewed chart. Refill appropriate. RX sent. Lab draw tomorrow Prescription Request: Last medication check: 06-28-24 Last physical exam: 05-04-24 Next scheduled appointment: 05-05-25 Last date of refill on this medication 07-07-24 documented in this encounter [facility] 08-04-2024 Telephone encount er Note Lab draw tomorrow [facility] 08-04-2024 Telephone encount er Note Prescription Request: Last medication check: 06-28-24 Last physical exam: 05-04-24 Next scheduled appointment: 05-05-25 Last date of refill on this medication 07-07-24 [facility] 07-19-2024 Telephone encount er Note Prescription Request: Last medication check: 01/21/24 Last physical exam: 05/04/24 Next scheduled appointment: 05/05/25 Last date of refill on this medication Irbesartan 05/03/24, chlorthalidone 05/03/24, Atrovent 07/05/24 [facility] 07-19-2024 Miscellaneous Notes Formattin g of this note might be different from the original. Prescription Request: Last medication check: 01/21/24 Last physical exam: 05/04/24 Next scheduled appointment: 05/05/25 Last date of refill on this medication Irbesartan 05/03/24, chlorthalidone 05/03/24, Atrovent 07/05/24 documented in this encounter [facility] 07-05-2024 Telephone encount er Note Notified, no further questions. [facility] 07-05-2024 Miscellaneous Notes Formattin g of [...] scheduled appointment: 05/05/25 documented in this encounter [facility] 07-05-2024 Telephone encount er Note Prescription sent to [facility] 07-05-2024 Telephone encount er Note Pt [...] physical exam: 05/04/24 Next scheduled appointment: 05/05/25 [facility] 06-28-2024 Evaluation + Plan note Associ ated Problem(s): Pure hypercholesterolemia Patient scheduled for lipid check next week. Continue fenofibrate 160 mg daily and atorvastatin 20 mg daily [facility] 06-28-2024 Miscellaneous Notes Associate d Problem(s): Pure [...] (may need ultrasound) documented in this encounter [facility] 06-28-2024 Miscellaneous Notes Associate d Problem(s): [...] Level of Service documented in this encounter [facility] 06-28-2024 Evaluation + Plan note Associ [...] and possible corticosteroid injection (may need ultrasound) [facility] 06-28-2024 History of Presen t illness Narrative [...] Date of . documented in this encounter [facility] [employer] 06-28-2024 History of Presen t illness Narrative [...] Date of . documented in this encounter [facility] 06-28-2024 Instructions ASAF Ramos CNP - 06/28/2024 9:[address] Morton about ortho specialist regarding the knee. May need ultrasound if getting injection in the knee. documented in this encounter [facility] 06-28-2024 Instructions ASAF Ramos CNP - 06/28/2024 9:[address] Morton about ortho specialist regarding the knee. May need ultrasound if getting injection in the knee. documented in this encounter [facility] 06-28-2024 Note Addended by: SEDRICK BRADLEY on: 06/29/2024 06:05 PM Modules accepted: Level of Service [facility] 06-16-2024 Telephone encount er Note Added. Pt aware. [facility] 06-16-2024 Miscellaneous Notes Formattin g of [...] specialist for this) Received fax, placed in [employer]. Faxed to [facility] Name of caller: Yodit Contact phone number: [phone] Relationship to Patient: patient Provider: 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 Practice: [facility] Chief Complaint/Reason for Call: The patient states she got the knee xrays done at [facility] in [place]. Please advise Best time of day caller [...] we get these? Called and spoke with [facility] medical records, they will be sending over x-ray results to us now. FYI I have not received the xray results I had sent an MYRNA over to [facility]....have you gotten these yet? Sent MYRNA to [facility] to send xray results. Noted. I think she is referring to xray of knee at [facility]. Will just need to make sure we receive results later this week. Name of caller: yodit Contact phone number: [phone] Relationship to Patient: patient Provider: 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 Practice: [facility] Chief Complaint/Reason for Call: pt called in to let provider that she got labs done Best time of day caller can be reached: AM Patient advised that office/PCP has 24-48 business hours to return their call: Yes documented in this encounter [facility] 06-16-2024 Telephone encount er Note Yes we can do it at that time- please add to the appt note [facility] 06-16-2024 Telephone encount er Note Notified, asking if you can do this injection at her visit on 06/28/24. [facility] 06-16-2024 Telephone encount er Note Reviewed knee xray. Shows mild osteoarthritis and some calcium deposits within the joint that are likely causing the pain. Recommend considering a corticosteroid knee injection (this can be done here or she can go and see ortho specialist for this) [facility] 06-16-2024 Telephone encount er Note Received fax, placed in [employer]. [facility] 06-15-2024 Telephone encount er Note Faxed to [facility] 06-15-2024 Telephone encount er Note Name of caller: Yodit Contact phone number: [phone] Relationship to Patient: patient Provider: 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 Practice: [facility] Chief Complaint/Reason for Call: The patient states she got the knee xrays done at [facility] in [place]. Please advise Best time of day caller can be reached: Any Patient advised that office/PCP has 24-48 business hours to return their call: No [facility] 06-15-2024 Telephone encount er Note Left a message to return call. CAC: If patient calls back please obtain where she got her knee xrays done at. [facility] 06-15-2024 Telephone encount er Note We got a fax stating that there was no radiology report that they had for this. Will call Yodit and see where she got these done/when she got these done. [facility] [employer] 06-15-2024 Telephone encount er Note Did we get these? [facility] [employer] 06-14-2024 Telephone encount er Note Called and spoke with [facility] medical records, they will be sending over x-ray results to us now. FYI [facility] [employer] 06-10-2024 Telephone encount er Note [facility] [employer] 06-10-2024 Miscellaneous Notes Formattin g of this note might be different from the original. Prescription Request: Last medication check: 01/21/24 Last physical exam: 05/04/24 Next scheduled appointment: 06/28/24 Last date of refill on this medication 12/10/23 documented in this encounter [facility] [employer] 06-10-2024 Telephone encount er Note Prescription Request: Last medication check: 01/21/24 Last physical exam: 05/04/24 Next scheduled appointment: 06/28/24 Last date of refill on this medication 12/10/23 [facility] [employer] 06-10-2024 Telephone encount er Note Prescription Request: Last medication check: 01/21/24 Last physical exam: 05/04/24 Next scheduled appointment: 06/28/24 Last date of refill on this medication Omeprazole 12/03/23, Vit D 01/16/24 [facility] [employer] 06-10-2024 Miscellaneous Notes Formattin g of this note is different from the original. Prescription Request: Last medication check: 01/21/24 Last physical exam: 05/04/24 Next scheduled appointment: 06/28/24 Last date of refill on this medication Omeprazole 12/03/23, Vit D 01/16/24 documented in this encounter [facility] [employer] 06-08-2024 Telephone encount er Note I have not received the xray results [facility] [employer] 06-08-2024 Telephone encount er Note I had sent an MYRNA over to [facility]....have you gotten these yet? [facility] [employer] 06-02-2024 Telephone encount er Note Sent MYRNA to [facility] to send xray results. [facility] [employer] 06-02-2024 Telephone encount er Note Reviewed chart. Refill appropriate. RX sent. [facility] [employer] 06-02-2024 Miscellaneous Notes Formattin g of this note might be different from the original. Reviewed chart. Refill appropriate. RX sent. Prescription Request: Last medication check: 01/21/24 Last physical exam: 05/04/24 Next scheduled appointment: 06/28/24 Last date of refill on this medication 03/25/24 90 day 1 refill documented in this encounter [facility] 06-02-2024 Telephone encount er Note Prescription Request: Last medication check: 01/21/24 Last physical exam: 05/04/24 Next scheduled appointment: 06/28/24 Last date of refill on this medication 03/25/24 90 day 1 refill [facility] 05-25-2024 Evaluation + Plan note Associ ated Problem(s): Acute pain of right knee Will obtain imaging due to history of osteoarthritis to evaluate status. Has been couple years since last imaging per patient. Recommend heather BLEDSOE to see chiropractor for knee, pending imaging results, consider PT and or referral to sports med [facility] 05-25-2024 Miscellaneous Notes Associate d Problem(s): Acute pain of right knee Will obtain imaging due to history of osteoarthritis to evaluate status. Has been couple years since last imaging per patient. Recommend heather BLEDSOE to see chiropractor for knee, pending imaging results, consider PT and or referral to sports med documented in this encounter [facility] 05-25-2024 Telephone encount er Note Noted. I think she is referring to xray of knee at [facility]. Will just need to make sure we receive results later this week. [facility] 05-25-2024 Telephone encount er Note Name of caller: yodit Contact phone number: [phone] Relationship to Patient: patient Provider: 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 Practice: [facility] Chief Complaint/Reason for Call: pt called in to let provider that she got labs done Best time of day caller can be reached: AM Patient advised that office/PCP has 24-48 business hours to return their call: Yes [employer] 05-25-2024 Note Exam Date Time Procedure Performing Provider Status 05/25/24 12:28 PM XR Knee 3 Views Right Contributor_sy stem, FUJI; Auth (Verified) [id number] ORIGINAL EXAMINATION: THREE XRAY VIEWS OF THE [...] 05/25/2024 9:34:14 PM Ordering Provider: SEDRICK HEMPHILL [facility]12-31-2024 History of Present illness Narrative * Dian Stuart - 05/25/2024 10:40 AM EST Patient was identified by name and Date of . * 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, 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 - [employer] - 05/25/2024 10:40 AM EST Images from [...] CNP 05/25/2024 2:32 PM documented in this [facility]12-31-2024 Instructions* Patient Instructions* ASAF Ramos CNP - 05/25/2024 10:40 AM EST Try the Voltaren cream on joints. Ice and elevate right knee, try compression sleeve during the day. documented in this [facility]12-30-2024 Telephone encounter Note* Telephone Encounter - Gerri Hazel RN - 05/24/2024 11:23 AM EST S: The patient is calling the [facility] about right knee pain B: This [...] present > 3 days Protocols used: Knee Hbfg-TCLSO-LG [id number] Miscellaneous Notes* Telephone Encounter - Gerri Mcmillan RN - 05/24/2024 11:23 AM EST S: The patient is calling the [facility] about right knee pain B: This [...] present > 3 days Protocols used: Knee Hfuc-VIHWP-XU documented in this [facility]12-19-2024 Evaluation note* Diagnosis Onset Date Resolution Status Admit Date S/P lumbar fusion acute Decembe r 2023 1:20pm S/P lumbar fusion acute Februar y 2024 11:24am Osteoarthritis of right knee acute July 07, 2024 10:48am Osteoarthritis of right knee acute July 28, 2024 10:48am Cervical myelopathy acute July 30, 2024 10:46am [facility] Work Phone: [phone]) 412-598912-10-2024 Evaluation + Plan note* Assessment & Plan Note - Moshe Key MD - 05/04/2024 9:30 AM ESTAssociated Problem(s): Hypertension Initially elevated, recheck was normal, continue chlorthalidone 25 mg daily and irbesartan 300 mg daily [id number] Evaluation + Plan note* Assessment & Plan Note - Moshe Key MD - 05/04/2024 9:30 AM ESTAssociated Problem(s): Gastroesophageal reflux disease without esophagitis Stable, continue omeprazole 40 mg daily [facility] [id number] Evaluation + Plan note* Assessment & Plan Note - Moshe Key MD - 05/04/2024 9:30 AM ESTAssociated Problem(s): Hereditary hemochromatosis (HCC) Stable, recheck lab work today. Orders: CBC auto differential; Future Ferritin; Future Iron and TIBC; Future CBC auto differential Ferritin Iron and TIBC [facility] [id number] Evaluation + Plan note* Assessment & Plan Note - Moshe Key MD - 05/04/2024 9:30 AM ESTAssociated Problem(s): Hypothyroidism Controlled, continue levothyroxine 100 mcg daily Orders: TSH; Future TSH [facility] HospitalDbrdrc36-21-4732 Evaluation + Plan note* Assessment & Plan Note - Moshe Key MD - 05/04/2024 9:30 AM ESTAssociated Problem(s): Type 2 diabetes mellitus without complication, without long-term current useof insulin (CMS/HCC) (HCC) Controlled, continue metformin 1000 mg twice a day Orders: Comprehensive metabolic panel; Future Hemoglobin A1c; Future Comprehensive metabolic panel Hemoglobin A1c [facility] HospitalCfpvqw85-62-7046 Evaluation + Plan note* Assessment & Plan Note - Moshe Key MD - 05/04/2024 9:30 AM ESTAssociated Problem(s): Pure hypercholesterolemia Controlled, continue atorvastatin 10 mg daily Orders: Lipid panel; Future Lipid panel [facility] [id number] History of Present illness Narrative* Allison Dunlap MA - 05/04/2024 9:30 AM EST Patient verified by last name and date of . * Moshe Key MD - 05/04/2024 9:30 AM EST Images from the original note were not included. [facility] - [address] [address] Visit Type: Medicare Annual Wellness PCP: Moshe Key MD Reason for Visit: Medicare Annual Wellness Visit Subsequent, Blood Work, and Health Maintenance (Tdap vaccine- agree/2nd shingles vaccine- advised to go to pharmacy /Dental exam- not done/Eye exam- go to [facility] in [place] - will send for record ) Assessment [...] MD 05/04/2024 9:57 AM documented in this [facility]12-10-2024 Miscellaneous Notes* Assessment & Plan Note [...] panel; Future Lipid panel documented in this [facility]12-09-2024 Telephone encounter Note* Telephone Encounter - Kourtney Hoff MA - 05/03/2024 7:02 AM EST Prescription Request: Last medication check: 01/21/2024 Last physical exam: 04/23/2023 Next scheduled appointment: 05/04/2024 Last date of refill on this medication: 12/03/2023 [facility]Rjtemq92-03-9419 Miscellaneous Notes* Telephone Encounter - Kourtney Hoff MA - 05/03/2024 7:02 AM EST Prescription Request: Last medication check: 01/21/2024 Last physical exam: 04/23/2023 Next scheduled appointment: 05/04/2024 Last date of refill on this medication: 12/03/2023 documented in this [facility]11-04-2024 [facility] Medical Records Department [address] [place] [address] History Physical Exam 03/29/24 0732 MR#: [id number] Acct: [id number] Name: YODIT LANDIN Rep #: [id number] : 1955 68 From: Arnold Morton MD PCP: Dr. Moshe Key MD Status:[facility] Location: [place] [address] History and Physical Date of Admission: 03/29/24 MR#: [id number] Acct: [id number] Name: YODIT LANDIN Rep #: [id number] : 1955 Provider: Dr. Arnold Morton MD Age/Sex: 68/F Location: [facility] Status: Signed Intake Vital Signs 02/05/2416:00 Height [...] mg PO .QAM 01/16/24 03/19/24 History omega 3-kze-pje-fish oil 1,200 mg 1 cap PO DAILY [...] cap PO TID 03/15/24 03/19/24 History 31.25 wij-yvgb-fgjfzeuyh-quercet capsule (Immune Essentials Daily) Have you fallen [...] left leg. She states (more content not included)...[facility]10-31-2024 Telephone encounter Note* Telephone Encounter - ASAF Ramos CNP - 03/25/2024 2:58 PM EDT Reviewed chart. Refill appropriate. RX sent. [facility] HospitalQgluwu43-24-2751 Miscellaneous Notes* Telephone Encounter - ASAF Ramos [...] up the medication: N/A documented in this [facility]10-31-2024 Telephone encounter Note* Telephone Encounter - [...] prior to picking up the medication: N/A [facility]Uujwih03-18-8509 Evaluation + Plan note* Assessment & Plan Note - ASAF Ramos CNP - 03/09/2024 4:58 PM EDTAssociated Problem(s): Preoperative clearance Medical optimized for surgery. [facility] HospitalEyempi68-56-8113 Miscellaneous Notes* Assessment & Plan Note - ASAF Ramos CNP - 03/09/2024 4:58 PM EDTAssociated Problem(s): Preoperative clearance Medical optimized for surgery. * Assessment & Plan Note - ASAF Ramos CNP - 03/09/2024 4:55 PM EDTAssociated Problem(s): Type 2 diabetes mellitus without complication, without long-term current useof insulin ([facility]) ([facility]) Controlled. Glucose readings consistently under 150. Continue metformin 1000 mg twice daily * Assessment & Plan Note - ASAF Ramos CNP - 03/09/2024 4:53 PM EDTAssociated Problem(s): Hypertension Mild elevation in blood pressure today. 146/76. Continue current medications Avapro 300 mg daily, chlorthalidone 25 mg daily, follow-up as directed. documented in this [facility]10-15-2024 Miscellaneous Notes* Assessment & Plan Note - ASAF Ramos CNP - 03/09/2024 4:58 PM EDTAssociated Problem(s): Preoperative clearance Medical optimized for surgery. * Assessment & Plan Note - ASAF Ramos CNP - 03/09/2024 4:55 PM EDTAssociated Problem(s): Type 2 diabetes mellitus without complication, without long-term current useof insulin ([facility]) ([facility]) Controlled. Glucose readings consistently under 150. Continue [...] accepted: Level of Service documented in this [facility]10-15-2024 Evaluation + Plan note* Assessment & Plan Note - ASAF Ramos CNP - 03/09/2024 4:55 PM EDTAssociated Problem(s): Type 2 diabetes mellitus without complication, without long-term current useof insulin ([facility]) ([facility]) Controlled. Glucose readings consistently under 150. Continue metformin 1000 mg twice daily [facility] HospitalTpyioo02-43-0740 Evaluation + Plan note* Assessment & Plan Note - ASAF Ramos CNP - 03/09/2024 4:53 PM EDTAssociated Problem(s): Hypertension Mild elevation in blood pressure today. 146/76. Continue current medications Avapro 300 mg daily, chlorthalidone 25 mg daily, follow-up as directed. [facility] HospitalJudulu42-98-1498 History of Present illness Narrative* ASAF Ramos CNP - 03/09/2024 11:00 AM EDT Images from the original note were not included. [facility] [address] [facility] [facility] [address] Dept: [phone] Dept Loc: [phone] Subjective Chief Complaint: Ms. Landin is a 68 y.o. female who presentsfor pre-operative evaluation. Planned surgery: MIS-TLIF at L5-S1 Surgeon: Dr. Rose- [facility] Date of Surgery: 03/29/2024 Plans to be overnight. Then home the next day. Will have PT at the rehab center in [place]. Has another appt next week- on the [...] complication, without long-term current use of insulin ([facility]) ([facility]) Assessment & Plan: Controlled. Glucose readings consistently [...] Exam-needs completed COVID-19 Vaccine-declined Diabetes: Retinopathy Screening-02/20/2024 [facility] Diabetes: Foot Exam-pended documented in this [facility]10-15-2024 History of Present illness Narrative* ASAF Ramos CNP - 03/09/2024 11:00 AM EDT Images from the original note were not included. [address] [address] Dept: [phone] Dept Loc: [phone] Subjective Chief Complaint: Ms. Landin is a 68 y.o. female who presentsfor pre-operative evaluation. Planned surgery: MIS-TLIF at L5-S1 Surgeon: Dr. Rose- [facility] Date of Surgery: 03/29/2024 Plans to be overnight. Then home the next day. Will have PT at the rehab center in [place]. Has another appt next week- on the [...] complication, without long-term current use of insulin ([facility]) ([facility]) Assessment & Plan: Controlled. Glucose readings consistently [...] Exam-needs completed COVID-19 Vaccine-declined Diabetes: [facility]in[facility]: Foot Exam-pended documented in this [facility]10-15-2024 Instructions* Patient Instructions* ASAF Ramos CNP - 03/09/2024 11:00 AM EDT Vit d 2,000 international units daily over the counter. documented in this [facility]10-15-2024 Instructions* Patient Instructions* ASAF Ramos CNP - 03/09/2024 11:00 AM EDT Vit d 2,000 international units daily over the counter. documented in this [facility]10-15-2024 Note* Addendum Note - ASAF Ramos CNP - 03/09/2024 11:00 AM EDTAddended by: SEDRICK HEMPHILL on: 03/11/2024 06:38 PM Modules accepted: Level of Service [facility]Ecktan17-79-7569 NoteAddended by: SEDRICK HEMPHILL on: 03/11/2024 06:38 PM Modules accepted: [facility] Telephone encounter Note* Telephone Encounter - Emily Kingsley MA - 02/13/2024 11:10 AM EDT Notified, needs 90 day supply to mail order pharmacy. [facility] HospitalNrjsez25-52-6756 Telephone encounter Note* Telephone Encounter - Emily Kingsley MA - 02/13/2024 11:10 AM EDT ----- Message from ASAF Ramos CNP sent at 02/13/2024 11:09 AM EDT ----- Tsh - normal, continue current dosing of levothyroxine 100 mcg daily [facility] HospitalYndfkv80-39-6026 Miscellaneous Notes* Telephone Encounter - Emily Kingsley MA - 02/13/2024 11:10 AM EDT Notified, needs 90 day supply to mail order pharmacy. * Telephone Encounter - Emily Kingsley MA - 02/13/2024 11:10 AM EDT ----- Message from ASAF Ramos CNP sent at 02/13/2024 11:09 AM EDT ----- Tsh - normal, continue current dosing of levothyroxine 100 mcg daily documented in this [facility]08-28-2024 Evaluation + Plan note* Assessment & Plan Note - ASAF Ramos CNP - 01/21/2024 11:48 AM EDTAssociated Problem(s): Bilateral foot pain Improving. Patient to continue follow-up with podiatry as previously directed. Continue orthotics [facility] HospitalPefhzr91-55-3848 Miscellaneous Notes* Assessment & Plan Note - [...] * Assessment & Plan Note - ASAF Raoms CNP - 01/21/2024 11:46 AM EDTAssociated Problem(s): [...] without complication, without long-term current useof insulin ([facility]) ([facility]) Controlled, continue metformin 1000 mg twice daily * Assessment & Plan Note - ASAF Ramos CNP - 01/21/2024 11:43 AM EDTAssociated Problem(s): Degenerative disc disease, lumbar Follow-up with human resources specialist as directed. documented in this [facility]08-28-2024 Evaluation + Plan note* Assessment & Plan Note - ASAF Ramos CNP - 01/21/2024 11:47 AM EDTAssociated Problem(s): Murmur, cardiac Noted new murmur on physical examination. Will obtain echocardiogram to further evaluate. Most recent EKG in August 2023 (preop)- sinus rhythm. Denies any shortness of breath or chest pain. [facility] HospitalTzdugv33-31-2630 Evaluation + Plan note* Assessment & Plan Note - ASAF Ramos CNP - 01/21/2024 11:46 AM EDTAssociated Problem(s): Iron deficiency anemia Iron levels have improved, hemoglobin still lower than her baseline. Recommend continue iron supplementation. Consider referral to gastroenterology for further evaluation. Recent Cologuard negative, previous colonoscopy in 2017 normal [facility] HospitalKksmmu67-39-3847 NoteIron levels have improved, hemoglobin still lower than her baseline. Recommend continue iron supplementation. Consider referral to gastroenterology for further evaluation. Recent Cologuard negative, [facility]08-28-[facility]24 Evaluation + Plan note* Assessment & Plan Note - ASAF Ramos CNP - 01/21/2024 11:45 AM EDTAssociated Problem(s): Hypothyroidism Uncontrolled. Recent change in levothyroxine dose increased to 100 mcg daily. Recommend starting new dosing and rechecking TSH in 8 weeks [place] [id number] Evaluation + Plan note* Assessment & Plan Note - ASAF Ramos CNP - 01/21/2024 11:44 AM EDTAssociated Problem(s): Hypertension Mild elevation in blood pressure today. 146/80. Continue current medications Avapro 300 mg daily, chlorthalidone 25 mg daily, follow-up as directed. [place] [id number] Evaluation + Plan note* Assessment & Plan Note - ASAF Ramos CNP - 01/21/2024 11:44 AM EDTAssociated Problem(s): Type 2 diabetes mellitus without complication, without long-term current useof insulin ([facility]) ([facility]) Controlled, continue metformin 1000 mg twice daily [place] [id number] Evaluation + Plan note* Assessment & Plan Note - ASAF Ramos CNP - 01/21/2024 11:43 AM EDTAssociated Problem(s): Degenerative disc disease, lumbar Follow-up with human resources specialist as directed. [place] [id number] History of Present illness Narrative* Dian Stuart [...] disease, lumbar Assessment & Plan: Follow-up with human resources specialist as directed. 4. Iron deficiency anemia, [...] Continue orthotics Follow up for 3 month [facility]. SUBJECTIVE/OBJECTIVE: JAIME - Yodit Landin (: 1955) is a 68 y.o. female , Established patient, here for the evaluation ofthe following chief complaint(s): Diabetes Hearing deficit-just got new Hearing aids- has following up next week with loom stop checker Back pain-was referred to orthospine and reports seeing Dr. Marroquin (ortho-spine), for lumbar pain, is getting a MRI, and starting physical at [facility] in [place], still seeing chiropractor. States that she might end up getting back surgery. Denies any significant change in her symptoms, denies any bowel or bladder changes Foot pain-sees Dr. Brenner in [facility]- has inserts now and that is helping [...] Historical Provider, ergocalciferol (Vitamin D-2) 1.25 MG (76058 UT) capsule Take 1 capsule (1.25 mg) [...] CNP 01/21/2024 11:49 AM documented in this [facility]08-28-2024 Instructions* Patient Instructions* ASAF Ramos CNP - 01/21/2024 10:20 AM EDT Bring in research records. -Please call Central Scheduling at [phone] to schedule your outpatient test (CT of lung for lung cancer screening) documented in this encounterSHolzer Health SystemWppivq44-27-9152 Telephone encounter Note* Telephone Encounter - Emily Kingsley MA - 01/16/2024 9:19 AM EDT Patient is agreeable, scheduled in 8 weeks, orders and med pended, pharmacy verified. Please update sig for B12 as well. [facility] HospitalAlbtdr40-88-1101 Miscellaneous Notes* Telephone Encounter - Emily Kingsley [...] mcg daily and rechecking in 8 weeks N67-klkhc slightly elevated, may reduce B12 supplement to every other day Folate-normal Transferrin-normal Back to Top Vit d low- 25, recommend vitamin D 50,000 international units once weekly x 12 weeks, then 2000 international units daily fjaz-enh-vgdbtnl (please see other results) Left a message [...] visit is needed. Thanks! documented in this encounterSHolzer Health SystemKzaibb45-49-9021 Telephone encounter Note* Telephone Encounter - Emily Kingsley MA - 01/15/2024 4:23 PM EDT ----- Message from ASAF Ramos CNP sent at 01/15/2024 4:16 PM EDT ----- Iron and TIBC still low normal range however gradually improving CBC-slight improvement in hemoglobin Ferritin-unchanged TSH-elevated, meaning we need to adjust the levothyroxine, recommend increasing to 100 mcg daily and rechecking in 8 weeks P78-kknfx slightly elevated, may reduce B12 supplement to every other day Folate-normal Transferrin-normal Back to Top Vit d low- 25, recommend vitamin D 50,000 international units once weekly x 12 weeks, then 2000 international units daily eppe-mrx-rcwynix (please see other results) Left a message [...] then no nurse visit is needed. Thanks! [facility] HospitalXhahmp67-71-2070 Note* Addendum Note - ASAF Ramos CNP - 12/29/2023 8:22 AM EDTAddended by: SEDRICK HEMPHILL on: 12/29/2023 08:22 AM Modules accepted: Orders [facility] HospitalBfbibb86-10-7263 Note* Addendum Note - ASAF Ramos CNP - 12/29/2023 8:22 AM EDTAddended by: SEDRICK HEMPHILL on: 12/29/2023 08:22 AM Modules accepted: Orders [facility] HospitalBwkwfh14-29-4178 NoteAddended by: SEDRICK HEMPHILL on: 12/29/2023 08:22 AM Modules accepted: [facility]08-05-2024 Miscellaneous Notes* Addendum Note - ASAF [...] like a referral to orthospine in the [place] area. Will have sustainability project coordinator assist with finding provider in network for her. We will also check vitamin D level at next lab draw on January 14, 2024. Also get DEXA scan completed to further evaluate osteopenia * Telephone Encounter - Abimbola Antony - 12/24/2023 10:38 AM EDT Name of caller: Yodit Landin Contact phone number: [phone] Relationship to Patient: patient Provider: Dr. Key [...] evaluation by orthospine doctor. documented in this encounterSHolzer Health SystemAjbkms22-64-5700 Telephone encounter Note* Telephone Encounter - ASAF Ramos CNP - 12/29/2023 7:34 AM EDT Reviewed chart. Refill appropriate. RX sent. [facility] HospitalIlfxbz25-35-6278 Miscellaneous Notes* Telephone Encounter - ASAF Ramos CNP - 12/29/2023 7:34 AM EDT Reviewed chart. Refill appropriate. RX sent. * Telephone Encounter - Allison Dunlap MA - 12/29/2023 7:17 AM EDT Prescription Request: Last date of refill on this medication Sent 10/22/[facility] 1 refill documented in this [facility]08-05-2024 Telephone encounter Note* Telephone Encounter - Allison Dunlap MA - 12/29/2023 7:17 AM EDT Prescription Request: Last date of refill on this medication Sent 10/22/[facility] day 1 refill [facility] HospitalYxxjrj08-46-7225 Note* Addendum Note - ASAF Ramos CNP - 12/24/2023 6:13 PM EDTAddended by: SEDRICK HEMPHILL on: 12/24/2023 06:13 PM Modules accepted: Orders [facility] HospitalVlbdgj70-50-2351 Note* Addendum Note - ASAF Ramos CNP - 12/24/2023 6:13 PM EDTAddended by: SEDRICK HEMPHILL on: 12/24/2023 06:13 PM Modules accepted: Orders [facility] HospitalVzzlpf71-61-0752 Note* Addendum Note - ASAF Ramos CNP - 12/24/2023 6:13 PM EDTAddended by: SEDRICK HEMPHILL on: 12/24/2023 06:13 PM Modules accepted: Orders [place] [id number] Note* Addendum Note - ASAF Ramos CNP - 12/24/2023 6:13 PM EDTAddended by: SEDRICK HEMPHILL on: 12/24/2023 06:13 PM Modules accepted: Orders [facility] HospitalTtbzxv35-82-8428 Note* Addendum Note - ASAF Ramos CNP - 12/24/2023 6:13 PM EDTAddended by: SEDRICK HEMPHILL on: 12/24/2023 06:13 PM Modules accepted: Orders [facility] HospitalCarbbp85-17-3801 NoteAddended by: SEDRICK HEMPHILL on: 12/24/2023 06:13 PM Modules accepted: [facility]07-31-2024 NoteCalled patient and reviewed results of x-ray. She would like a referral to orthospine in the [facility]. Will have sustainability project coordinator assist with finding provider in network for her. We will also check vitamin D level at next lab draw on January 14, 2024. Also get D[facility] scan [facility] Telephone encounter Note* Telephone Encounter - ASAF Ramos CNP - 12/24/2023 6:13 PM EDT Called patient and reviewed results of x-ray. She would like a referral to orthospine in the [facility]. Will have sustainability project coordinator assist with finding provider in network for her. We will also check vitamin D level at next lab draw on January 14, 2024. Also get DEXA scan completed to further evaluate osteopenia [facility] HospitalTubudl68-58-2376 Miscellaneous Notes* Addendum Note - ASAF Ramos CNP - 12/24/2023 6:13 PM EDTAddended by: SEDRICK HEMPHILL on: 12/24/2023 06:13 PM Modules accepted: Orders * Telephone Encounter - ASAF Ramos CNP - 12/24/2023 6:13 PM EDT Called patient and reviewed results of x-ray. She would like a referral to orthospine in the [place] area. Will have sustainability project coordinator assist with finding provider in network for her. We will also check vitamin D level at next lab draw on January 14, 2024. Also get DEXA scan completed to further evaluate osteopenia * Telephone Encounter - Abimbola Antony - 12/24/2023 10:38 AM EDT Name of caller: Yodit Lnadin Contact phone number: [phone] Relationship to Patient: patient Provider: Dr. Key [...] evaluation by orthospine doctor. documented in this encounterSHolzer Health SystemHpmabh69-85-7285 Telephone encounter Note* Telephone Encounter - Abimbola Antony - 12/24/2023 10:38 AM EDT Name of caller: Yodit Landin Contact phone number: [phone] Relationship to Patient: patient Provider: Dr. Key Practice: [facility] Chief Complaint/Reason for Call: Patient is returning call from office regarding x-ray results. Please call patient back to discuss results. Please advise, thank you. Best time of day caller can be reached: Any Patient advised that office/PCP has 24-48 business hours to return their call: Yes [facility] HospitalPhxede60-51-2505 Telephone encounter Note* Telephone Encounter - Allison Dunlap MA - 12/24/2023 10:27 AM EDT LM for pt to return call [facility] HospitalRyzidr23-30-7132 Telephone encounter Note* Telephone Encounter - Allison Dunlap MA - 12/24/2023 10:27 AM EDT ----- Message from 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 APRN - [employer] sent at 12/24/2023 7:39 AM EDT ----- Lumbar x-ray shows severe degenerative disc disease he had an osteopenic bones (this can lead to osteoporosis and increase risk for fractures). Recommend getting dexa scan (bone density test) and checking vit d level -then we can further recommend treatment for the osteopenia, as for the severe degenerative disc disease- recommend evaluation by orthospine doctor. [facility] HospitalMqthfq68-81-8105 Telephone encounter Note* Telephone Encounter - Dian Stuart - 12/12/2023 7:28 AM EDT MYRNA for Dr. Jimenez had to be mailed out-no fax number provided on website, attempted calling them andno answer and unable to leave voicemail (recording kept rotating). My chart message sent to patientwith list of [facility] that accept her insurance advised her to please let us know who she would like us to put a referral in for and to call them to be sure they accept her insurance. [facility] HospitalLiryyx32-79-4346 Miscellaneous Notes* Telephone Encounter - Dian Stuart - 12/12/2023 7:28 AM EDT MYRNA for Dr. Jimenez had to be mailed out-no fax number provided on website, attempted calling them andno answer and unable to leave voicemail (recording kept rotating). My chart message sent to patientwith list of [facility] that accept her insurance advised her to please let us know who she would like us to put a referral in for and to call them to be sure they accept her insurance. * Telephone Encounter - ASAF Ramos CNP - 12/11/2023 4:57 PM EDT Please see if we can get records from Dr. Trena Jimenez, chiropractor in [place]. Patient thinks shehad imaging done in 2019? [...] in touch. Thank you! documented in this encounterSHolzer Health SystemQzwxjs26-68-1612 Telephone encounter Note* Telephone Encounter - ASAF Ramos CNP - 12/11/2023 4:57 PM EDT Please see if we can get records from Dr. Trena Jimenez, chiropractor in [place]. Patient thinks shehad imaging done in 2019? That Dr. Jimenez had ordered. Also would like Dr. Jimenez's last treatment plan Also- does she have anyone in mind for podiatry? She can check with her insurance to see who else is in network for her and I can make the referral if needed. [facility] HospitalZttavm93-52-0062 Telephone encounter Note* Telephone Encounter - Nancy [...] someone would be in touch. Thank you! [facility] HospitalHrjhfv35-34-9362 Telephone encounter Note* Telephone Encounter - Emily Kingsley MA - 12/09/2023 4:50 PM EDT Spoke to Yodit, send to [facility] please. Thanks! [facility] HospitalDzdjbv57-68-9427 Miscellaneous Notes* Telephone Encounter - Emily Kingsley MA - 12/09/2023 4:50 PM EDT Spoke to Yodit, send to [facility] please. Thanks! * Telephone Encounter - Moshe Key MD - 12/09/2023 4:30 PM EDT What pharmacy does she want this sent to * Telephone Encounter - Kourtney Hoff MA - 12/09/2023 3:02 PM EDT Spoke to Yodit, states that her old doctor from [place], Dr. Caitlin Hope, was the one who prescribed it for her last, and gave her 23 refills. States that since she is no longer down in [place], she cannot get it filled through them. [...] on this medication: 10/22/2022 documented in this encounterSHolzer Health SystemCwlcsx37-84-1248 Telephone encounter Note* Telephone Encounter - Moshe Key MD - 12/09/2023 4:30 PM EDT What pharmacy does she want [address]xe20-84-6029 Telephone encounter Note* Telephone Encounter - Kourtney Hoff MA - 12/09/2023 3:02 PM EDT Spoke to Yodit, states that her old doctor from [place], Dr. Caitlin Hope, was the one who prescribed it for her last, and gave her 23 refills. States that since she is no longer down in [place], she cannot get it filled through them. 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 [address]Snvayp46-51-0864 Telephone encounter Note* Telephone Encounter - Moshe Key MD - 12/09/2023 10:51 AM EDT Refused, this does not look like we ever prescribed the medication [place] [id number] Telephone encounter Note* Telephone Encounter - Kourtney Hoff MA - 12/09/2023 9:26 AM EDT Prescription Request: Last medication check: 10/22/2023 Last physical exam: 04/23/2023 Next scheduled appointment: 01/21/2024 Last date of refill on this medication: 10/22/2022 [place] [id number] Telephone encounter Note* Telephone Encounter - Emily Kingsley MA - 12/03/2023 10:30 AM EDT Notified, she will get the ferrous sulfate OTC, I added it to her med list. She also states that [facility] has contacted us 2x for her refills, meds are pended. Orders as well. Scheduled recheck. [facility] HospitalKcmslt47-82-0255 Miscellaneous Notes* Telephone Encounter - Emily Kingsley [...] to check thyroid functioning. documented in this encounterSHolzer Health SystemAcddzg94-03-2509 Telephone encounter Note* Telephone Encounter - Emily [...] folate, and TSH to check thyroid functioning. [facility] HospitalJrbybj84-00-5326 Evaluation + Plan note* Assessment & Plan Note - ASAF Ramos CNP - 12/01/2023 5:59 PM EDTAssociated Problem(s): Bilateral foot pain Obtain recent podiatry notes. Follow-up with podiatry as scheduled [facility] HospitalGmekqp88-49-7759 Miscellaneous Notes* Assessment & Plan Note - [...] obtain recent progress notes from chiropractor and face hardener for further plan of care. Consider imaging of the pelvis hip area if indicated. Last imaging was done per patient in2019 by chiropractor documented in this encounterSHolzer Health SystemGuxyuv35-79-9201 Evaluation + Plan note* Assessment & Plan Note - ASAF Ramos CNP - 12/01/2023 5:57 PM EDTAssociated Problem(s): Left buttock pain Highly suspect sciatic pain. Patient with significant trigger point upon palpation. Will obtain recent progress notes from chiropractor and face hardener for further plan of care. Consider imaging of the pelvis hip area if indicated. Last imaging was done per patient in2019 by chiropractor [facility] HospitalNqvpqa20-52-6459 History of Present illness Narrative* Allison Dunlap [...] obtain recent progress notes from chiropractor and face hardener for further plan of care. Consider imaging [...] iron levels. Patient recently got back from [place] and has some questions about her leg/feet pain and left lower back hip pain. She has seen Dr. Beltran-podiatry for foot pain. States she she is supposed to have some furthertesting done but does not remember exactly what testing it is. She got new shoes and may be fitted f or orthotics. When she was in [place] she had an episode of severe left hip pain making it difficult to walk. Shedid see a specialist down there who diagnosed her with piriformis dysfunction. She also is seeing achiropractor here in [place]. Patient states she had a fracture of [...] CNP 12/01/2023 5:59 PM documented in this [facility]07-02-2024 History of Present illness Narrative* Nadya Harkins PA-C - 11/25/2023 1:00 PM EDT Images from the original note were not included. [facility] [address] [facility] [address] Dept: [phone] Dept 11/25/2023 Chief Complaint Patient presents with [...] NONE Nadya Harkins PA-C to Dr. [facility] Hand [facility] Upper Extremity [facility] Re[facility]ive Surgery 11/25/2023 at 1:40 PM (Please note that portions of this note may have been completed with a voice recognition program. Efforts were made to edit the dictations but occasionally words are mis-transcribed.) documented in this [facility]05-30-2024 Telephone encounter Note* Telephone Encounter - Nadya Harkins PA-C - 10/23/2023 8:32 AM EDT Okay, thank you [facility] Phone: [phone] Miscellaneous Notes* Telephone Encounter - Nadya Harkins PA-C - 10/23/2023 8:32 AM EDT Okay, thank you * Telephone Encounter - Faiza Navarro - 10/22/2023 4:57 PM EDT Name of caller: Yodit Contact phone number: [phone] Relationship to Patient: patient Provider: Nadya Practice: [...] return their call: No documented in this encounterSHolzer Health SystemJdupwd85-18-1159 Telephone encounter Note* Telephone Encounter - Faiza Navarro - 10/22/2023 4:57 PM EDT Name of caller: Yodit Contact phone number: [phone] Relationship to Patient: patient Provider: Ndaya Practice: Ortho Chief Complaint/Reason for Call: Pt called stating she wanted to let Nadya know that she will not be doing therapy because her wrist feels so much better after using the scar away silicone strips. Best time of day caller can be reached: Any Patient advised that office/PCP has 24-48 business hours to return their call: No [facility] HospitalTlquel03-53-5569 Evaluation + Plan note* Assessment & Plan Note - ASAF Ramos CNP - 10/22/2023 4:14 PM EDTAssociated Problem(s): Type 2 diabetes mellitus without complication, without long-term current useof insulin ([facility]) ([facility]) Controlled. Continue metformin at 1000 mg twice daily [facility] HospitalWvouih46-28-6480 Evaluation + Plan note* Assessment & Plan Note - ASAF Ramos CNP - 10/22/2023 4:14 PM EDTAssociated Problem(s): Swelling of both lower extremities Denies any chest pain or shortness of breath, weight is stable. Patient reports being on furosemidepreviously and had stopped the medication about 4 weeks ago. Will check CMP and have her restart furosemide 20 mg daily [facility] HospitalIgqunx46-72-0031 Miscellaneous Notes* Assessment & Plan Note - [...] pain Follow-up with podiatry documented in this [facility]05-29-2024 Evaluation + Plan note* Assessment & Plan Note - ASAF Ramos CNP - 10/22/2023 4:13 PM EDTAssociated Problem(s): Hypertension Controlled continue irbesartan 300 mg daily, chlorthalidone 25 mg daily [facility]Rgeeog02-57-8223 Evaluation + Plan note* Assessment & Plan Note - AASF Ramos CNP - 10/22/2023 4:07 PM EDTAssociated Problem(s): Hereditary hemochromatosis (HCC) Has been stable. Check CBC iron levels today, if normal consider checking every 6 months [facility] HospitalNzaxth90-96-3824 Evaluation + Plan note* Assessment & Plan Note - ASAF Ramos CNP - 10/22/2023 4:07 PM EDTAssociated Problem(s): Bilateral foot pain Follow-up with podiatry [facility]Xkkplf83-78-8427 History of Present illness Narrative* Dian Stuart [...] month. Still taking the metformin. Going to [place] on Friday and will be coming 11/22/2023- [...] CNP 10/22/2023 4:14 PM documented in this [facility]05-21-2024 History of Present illness Narrative* Nadya Harkins PA-C - 10/14/2023 1:30 PM EDT Images from the original note were not included. [facility] [address] [place] [address] Dept: [phone] Dept 10/14/2023 Chief Complaint Patient presents with [...] she is going out and going to mosque as she has pain and hypersensitivity over the scar when people shake her hand or when the area brushes up against something. She was offered a prescription for formal occupational therapy for scar tissue massage and desensitization. She prefers an external referral to Occupational Therapy in [place] which is closer to her home. She [...] occasionally words are mis-transcribed.) documented in this [facility]05-21-2024 Instructions* Patient Instructions* Omar Fitch ATC [...] sink is also helpful. documented in this [facility]04-23-2024 History of Present illness Narrative* Nadya [...] by: AB/ADITYA Harkins PA-C to Dr. Avila [place] [facility] Hand and Upper Extremity Plastic and Reconstructive Surgery (Please note that portions of this note may have been completed with a voice recognition program. Efforts were made to edit the dictations but occasionally words are mis-transcribed.) documented in this [facility]04-23-2024 Instructions* Patient Instructions* Nadya Harkins PA-C [...] Where can you learn more? Go to [email or web address] and sign in to your [employer] account. Enter Z454 in the Search Health Information box to learn more about Wrist : Rehab Exercises. If you do not have an account, please click on the Sign Up Now link. Current as of: July 26, 2019 Content Version: 12.6 [employer]. Care instructions adapted under license by [employer]. If you have questions about a medical condition or this instruction, always ask your healthcare professional. [employer] disclaims any warranty or liability for your use of this information. documented in this [facility]04-11-2024 Evaluation + Plan note* Assessment & Plan Note - 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 APRN - [facility] - 09/04/2023 2:49 PM EDTAssociated Problem(s): Visit for wound check No concerns. Additional padding added to the edge of the plaster splint, lower half of the dressingrewrapped with the Drake wrap. Patient to follow-up with her surgeon as scheduled [address]Ykvlvi00-84-4710 Miscellaneous Notes* Assessment & Plan Note - ASAF Ramos CNP - 09/04/2023 2:49 PM EDTAssociated Problem(s): Visit for wound check No concerns. Additional padding added to the edge of the plaster splint, lower half of the dressingrewrapped with the Drake wrap. Patient to follow-up with her surgeon as scheduled documented in this encounterSJuan [place] [address]Idzmps01-99-4519 Telephone encounter Note* Telephone Encounter - ASAF Ramos CNP - 09/04/2023 12:48 PM EDT Noted. Agree with disposition. [address]Qpvfsj20-44-0989 Miscellaneous Notes* Telephone Encounter - ASAF Ramos [...] unable to drive back over to the [employer] location. R: OV scheduled for today with Julianna Hemphill with back line office staff approval. No further needsat this time. Reason for Disposition Patient wants to be seen Protocols used: Post-Op Symptoms and Pvgrlbaah-EEEPR-CS documented in this [facility]04-11-2024 History of Present illness Narrative* Kourtney [...] CNP 09/04/2023 2:49 PM documented in this [facility]04-11-2024 Telephone encounter Note* Telephone Encounter - Iris Morales RN - 09/04/2023 9:36 AM EDT S: Patient spoke with [facility] nurse regarding post op problem-surgical bandage B: Surgery-09/03/23-RIGHT VOLAR RADIAL WRIST MASS EXCISION A: Patient had wrist surgery yesterday states she needs bandage rewrapped and she does not have supplies at home. Patient states there is a sharp area that is exposed on the splint. Patient states she is unable to drive back over to the [facility]. R: OV scheduled for today with Julianna Hemphill with back line office staff approval. No further needsat this time. Reason for Disposition Patient wants to be seen Protocols used: Post-Op Symptoms and Arqbrotzy-QPNII-YV [place] [address]Ykpsji75-72-9976 Note* Perioperative Nursing Note - Latesha Collins RN - 09/03/2023 11:21 AM EDT Pt and family verbalized understanding of recovery instructions, pt verbalized a readiness to be discharged home. Pt discharged home via wheelchair accompanied by RN/volunteer. Pt has had all their belongings returned to them at discharge [address]Tgdlie49-11-1560 Note* Perioperative Nursing Note - Latesha Collins RN - 09/03/2023 11:21 AM EDT Pt and family verbalized understanding of recovery instructions, pt verbalized a readiness to be discharged home. Pt discharged home via wheelchair accompanied by RN/volunteer. Pt has had all their belongings returned to them at discharge [place] [address]Vfbqyz37-88-3332 Miscellaneous Notes* Perioperative Nursing Note - Latesha [...] from OR via cart, spont. Resp. With ACTIVITIES DIRECTOR in attendance. Placed on monitor. Monitor alarms on in PACU Pt received from OR via cart, spont. Resp. With ACTIVITIES DIRECTOR in attendance. 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 Fire risk was [...] 09/03/2023 , 9:59 AM documented in this encounterSHolzer Health SystemVmjtne44-89-4831 Note* Perioperative Nursing Note - Latesha Collins RN - 09/03/2023 10:26 AM EDT Pt arousable, oral airway removed- pt tolerating well. Will monitor [facility] HospitalTpuloi06-16-1380 Note* Perioperative Nursing Note - Latesha Collins RN - 09/03/2023 10:26 AM EDT Pt arousable, oral airway removed- pt tolerating well. Will monitor [place] [address]Kfxjqw08-22-1198 Note* Perioperative Nursing Note - Latesha Collins RN - 09/03/2023 10:14 AM EDT Pt received from OR via cart, spont. Resp. With ACTIVITIES DIRECTOR in attendance. Placed on monitor. Monitor alarms on in PACU Pt received from OR via cart, spont. Resp. With ACTIVITIES DIRECTOR in attendance. Placed on monitor.Monitor alarms on in PACU - pt has oral airway in place - will monitor [place] [address]Wladjy78-30-8732 Note* Perioperative Nursing Note - Latesha Collins RN - 09/03/2023 10:14 AM EDT Pt received from OR via cart, spont. Resp. With ACTIVITIES DIRECTOR in attendance. Placed on monitor. Monitor alarms on in PACU Pt received from OR via cart, spont. Resp. With ACTIVITIES DIRECTOR in attendance. 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 We discussed both [...] iscomfortable providing informed consent for the procedure. [employer]04-10-2024 History and physical note* Chay Patel PA-C [...] Landin regarding the natural history, etiology, and prison consequences of her condition. We discussed both [...] consent for the procedure. documented in this [facility]04-10-2024 Hospital Discharge instructions* Discharge Instructions* Chay [...] * Moderate Sedation in Adults Discharge Instructions (Russian) documented in this [facility]03-26-2024 Telephone encounter Note* Telephone Encounter - Moshe Key MD - 08/19/2023 3:31 PM EDT I do not know what this is about? [employer] Phone: [phone] Miscellaneous Notes* Telephone Encounter - Moshe Key MD - 08/19/2023 3:31 PM EDT I do not know what this is about? * Telephone Encounter - Jessica Gil - 08/19/2023 2:00 PM EDT Name of caller: Yodit Contact phone number: [phone] Relationship to Patient: patient Provider: Dr. Key [facility] Chief Complaint/Reason for Call: appt with Dr. Alvin Beltran DPM on 2:45 Best time of day caller can be reached: any Patient advised that office/PCP has 24-48 business hours to return their call: N/A Pt has surg on 09/03/[address] Leos documented in this [facility]03-26-2024 Telephone encounter Note* Telephone Encounter - Jessica Gil - 08/19/2023 2:00 PM EDT Name of caller: Yodit Contact phone number: [phone] Relationship to Patient: patient Provider: Dr. Key Practice: Shan HERRON Chief Complaint/Reason for Call: appt with Dr. Alvin Beltran DPM on 2:45 Best time of day caller can be reached: any Patient advised that office/PCP has 24-48 business hours to return their call: N/A Pt has surg on 09/03/[address] Leos WrightspeedRpezku20-76-2201 Telephone encounter Note* Telephone Encounter - Nadya Harkins PA-C - 08/08/2023 2:13 PM EDT PAT orders signed [employer] Phone: [phone] Miscellaneous Notes* Telephone Encounter - Nadya Harkins PA-C - 08/08/2023 2:13 PM EDT PAT orders signed * Telephone Encounter - Linda Baig - 08/07/2023 10:42 AM EDT Sent patient [employer]hart message with all sx information * Telephone Encounter - Linda Baig - 08/07/2023 10:34 AM EDT Called [facility]. Spoke with Marcela. No PA required. Ref# [id number] * Telephone Encounter - Linda Baig - 08/06/2023 10:03 AM EDT Sent to sx schdeuling * Telephone Encounter - Linda Baig - 08/05/2023 1:42 PM EDT ----- Message from Merlin Johnson ATC sent at 08/05/2023 1:36 PM EDT ----- DERIC SURGERY SCHEDULING SLIP Patient: Yodit Landin Date of : 1955 Date of Surgery: 09/03/23 @ 9:30am Day of Surgery: Friday Hospital: [facility] Duration: 60 min Type: Outpatient PAT: Yes 08/26@[facility]@10:00pm Med Clearance: No Anesthesia: MAC/Local Block: None Position: Supine Table: Stretcher Arm Board: Roll-up arm table Radiology: None CPT Code: 25313 DX Code: M67.431 Case # [id number] Consent: right volar radial Wrist mass excision FollowUp: [facility] in 10-14 days XRays: no OT Splint needed at first PO appointment: no Special Requests Hand tray [place] blade Vessel loops available but not open 3.0 monocryl 4.0 nylon Small xeroform Splint material 4 inch plaster documented in this encounterSHolzer Health SystemNqcqgd41-99-6027 Telephone encounter Note* Telephone Encounter - Linda Baig - 08/07/2023 10:42 AM EDT Sent patient MyChart message with all sx information [facility]Hcpuht00-65-0550 Miscellaneous Notes* Telephone Encounter - Linda Baig - 08/07/2023 10:42 AM EDT Sent patient MyChart message with all sx information * Telephone Encounter - Linda Baig - 08/07/2023 10:34 AM EDT Called [facility]. Spoke with Marcela. No PA required. Ref# [id number] * Telephone Encounter - Linda Baig - 08/06/2023 10:03 AM EDT Sent to [facility] * Telephone Encounter - Linda Baig - 08/05/2023 1:42 PM EDT ----- Message from Merlin Johnson ATC sent at 08/05/2023 1:36 PM EDT ----- DERIC SURGERY SCHEDULING SLIP Patient: Yodit Landin Date of : 1955 Date of Surgery: 09/03/23 @ 9:30am Day of Surgery: Friday Hospital: [facility] Duration: 60 min Type: Outpatient PAT: Yes 08/26@[facility]@10:00pm Med Clearance: No Anesthesia: MAC/Local Block: None Position: Supine Table: Stretcher Arm Board: Roll-up arm table Radiology: None CPT Code: 59998 DX Code: M67.431 Case # [id number] Consent: right volar radial Wrist mass excision FollowUp: [facility] in 10-14 days XRays: no OT Splint needed at first PO appointment: no Special Requests Hand tray [place] blade Vessel loops available but not open 3.0 monocryl 4.0 nylon Small xeroform Splint material 4 inch plaster documented in this encounterSHolzer Health SystemRmwrlv28-72-3437 Telephone encounter Note* Telephone Encounter - Linda Baig - 08/07/2023 10:34 AM EDT Called [facility]. Spoke with Marcela. No PA required. Ref# [id number] [facility] HospitalHazeml06-07-5731 Telephone encounter Note* Telephone Encounter - Linda Baig - 08/06/2023 10:03 AM EDT Sent to [facility] HospitalAcoxnt31-49-6817 Telephone encounter Note* Telephone Encounter - Linda Baig - 08/05/2023 1:42 PM EDT ----- Message from Merlin Johnson ATC sent at 08/05/2023 1:36 PM EDT ----- DERIC SURGERY SCHEDULING SLIP Patient: Yodit Landin Date of : 1955 Date of Surgery: 09/03/23 @ 9:30am Day of Surgery: Friday Hospital: [facility] Duration: 60 min Type: Outpatient PAT: Yes 08/26@[facility]@10:00pm Med Clearance: No Anesthesia: MAC/Local Block: None Position: Supine Table: Stretcher Arm Board: Roll-up arm table Radiology: None CPT Code: 99554 DX Code: M67.431 Case # [id number] Consent: right volar radial Wrist mass excision FollowUp: [facility] in 10-14 days XRays: no OT Splint needed at first PO appointment: no Special Requests Hand tray [place] blade Vessel loops available but not open 3.0 monocryl 4.0 nylon Small xeroform Splint material 4 inch plaster [facility] HospitalZyrqnq26-53-3577 History of Present illness Narrative* Austin Leos MD - 08/05/2023 1:00 PM EDT Images from the original note were not included. [facility] [address] [place] [address] Dept: [phone] Dept 08/05/2023 Chief Complaint Patient presents with [...] compartment release) surgery by Dr. Woo in [place] in 2022 MRI: No Has not had an MRI Patient reports that she has had bilateral wrist masses for the past year. She states she previously underwent surgery to remove one of her wrist masses on her right side however it recurred. She hasnot had any treatments on her left side. She takes qxkm-stj-dptpvtx pain medicine for other problems and helps [...] Size: 2 cm X 2 cm- right, 03fmi7hm left Location: radial, volar Depth: superficial Mobility: [...] plan. She will follow-up with my physician cook's assistant postoperatively. I had an extensive discussion with Ms. Yodit Landin and any family members present regarding the natural history, etiology, and prison consequences of her condition. I have outlined [...] Follow-up: Yodit will followup with my physician cook's assistant, Nadya Harkins PA-C post operatively. She knows to call the office with any questions or concerns in the interim. Future Imaging: NONE Austin Leos MD Hand, Plastic, and Reconstructive Surgery [facility] Department of Orthopedics and Sports Medicine 08/05/2023 at 1:13 PM (Please note that portions of this note may have been completed with a voice recognition program. Efforts were made to edit the dictations but occasionally words are mis-transcribed.) documented in this [facility]03-12-2024 Instructions* Patient Instructions* Merlin Johnson ATC - 08/05/2023 1:00 PM EDT Linda Houser Complaint Adjuster for Dr. Austin Leos F: [phone] documented in this [facility]02-29-2024 Evaluation + Plan note* Assessment & Plan Note - ASAF Ramos CNP - 07/24/2023 11:20 AM ESTAssociated Problem(s): Other specified hypothyroidism Stable. Continue levothyroxine 75 mcg daily [facility] HospitalWqnxzl42-58-0051 Miscellaneous Notes* Assessment & Plan Note - [...] without complication, without long-term current useof insulin ([facility]/HCC) (HCC) Controlled. Continue metformin 1000 mg twice daily * Assessment & Plan Note - ASAF Ramos CNP - 07/24/2023 11:07 AM ESTAssociated Problem(s): Hypertension Controlled. Continue irbesartan 300 mg daily * Assessment & Plan Note - ASAF Ramos CNP - 07/24/2023 11:07 AM ESTAssociated Problem(s): Hereditary hemochromatosis (HCC) Has been stable. Check cbc, iron levels today. documented in this [facility]02-29-2024 Evaluation + Plan note* Assessment & Plan Note - ASAF Ramos CNP - 07/24/2023 11:10 AM ESTAssociated Problem(s): Bilateral foot pain Previously had orthotics which alleviated the problem- refer to podiatry for evaluation and treatment [facility]02-29-2024 Evaluation + Plan note* Assessment & Plan Note - ASAF Ramos CNP - 07/24/2023 11:09 AM ESTAssociated Problem(s): Mass of joint of right wrist Most likely ganglion cyst. Follow up with ortho as scheduled. [facility]02-29-2024 Evaluation + Plan note* Assessment & Plan Note - ASAF Ramos CNP - 07/24/2023 11:08 AM ESTAssociated Problem(s): Type 2 diabetes mellitus without complication, without long-term current useof insulin ([facility]) ([facility]) Controlled. Continue metformin 1000 mg twice daily [facility]02-29-2024 Evaluation + Plan note* Assessment & Plan Note - ASAF Ramos CNP - 07/24/2023 11:07 AM ESTAssociated Problem(s): Hypertension Controlled. Continue irbesartan 300 mg daily [facility]02-29-2024 Evaluation + Plan note* Assessment & Plan Note - ASAF Ramos CNP - 07/24/2023 11:07 AM ESTAssociated Problem(s): Hereditary hemochromatosis (HCC) Has been stable. Check cbc, iron levels today. [facility] HospitalCwiifv47-20-7793 History of Present illness Narrative* Dian Stuart - 07/24/2023 10:00 AM EST Patient was identified by name and Date of . Venipuncture completed Patient was identified by name and date of -orders verified in [facility]. Site cleansed with alcohol swab and using a sterile needle, left AC accessed per [facility]'s policy and procedure. Bandage applied to [...] Fasting usually less than 120 consistantly. Last kjrrsrrltjY9m was 6.8. Currently on metformin daily Ganglion [...] the problem. Would like referral to a face hardener. Denies any numbness or tingling of the [...] CNP 07/24/2023 11:21 AM documented in this [facility]02-29-2024 Instructions* Patient Instructions* ASAF Ramos CNP - 07/24/2023 10:[address] [facility]. documented in this [facility]02-06-2024 Discharge summary Author Juan Jose Stallworth [facility] July 01, 2023 8:05pm Note Date/Time July 01, 2023 6 :59pm [facility] Medical Records Department [address] [place] [address] Emergency Department Summary 07/01/23 MR#: [id number] Acct: [id number] Name: YODIT LANDIN Rep #:[id number] : 1955 67 From: Juan Jose Stallworth [...] or vaginal complaints. She denies abdominal pain. [facility] Medical History (Updated 07/01/23 @ 20:02 by [...] Reports moist mucous membranes HEENT Narrative: Positive Starkweather-Hallpike. Nystagmus noted. normocephalic and atraumatic Eyes PERRL [...] this. I was able to log into [employer], and I was not able to find [...] % (Auto) 52.3 Lymph % (Auto) 31.6 [place] % (Auto) 12.1 H Eos % (Auto) [...] Sl. Cloudy Urine pH 5.0 Ur Specific [place] 1.020 Urine Protein 15 H Urine Glucose [...] problems, contact your Primary Care Provider. Call [employer] Registry ([phone]) or report to the closest Emergency Room. Call 911 if necessary. 07/01/232004 <Electronically signed by Juan Jose Stallworth DO> Cosigner Signature (if applicable): CC: No Primary Care Physician ~ Signed [facility] Work Phone: [phone] 959-636501-16-2024 Telephone encounter Note* Telephone Encounter - 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, ASAF - [employer] - 06/10/2023 7:28 AM EST Received xray results. Please notify patient, No bony mass. Recommend seeing human resources specialist (previously referred) for further evaluation as may need an MRI to further evaluate. (This will be ordered by them if needed). [facility] HospitalZfnorn59-04-0770 Miscellaneous Notes* Telephone Encounter - ASAF Ramos CNP - 06/10/2023 7:28 AM EST Received xray results. Please notify patient, No bony mass. Recommend seeing human resources specialist (previously referred) for further evaluation as may need an MRI to further evaluate. (This will be ordered by them if needed). * Telephone Encounter - Emily Kingsley MA - 06/09/2023 10:18 AM EST Noted. * Telephone Encounter - Coty Smith - 06/09/2023 9:45 AM EST See previous TE from today Name of caller: Yodit Contact phone number: [phone] Relationship to Patient: patient Provider: Dr Key [...] return their call: N/A documented in this [facility]01-15-2024 Telephone encounter Note* Telephone Encounter - Emily Kingsley MA - 06/09/2023 10:18 AM EST Noted. [facility] HospitalFhxoji76-85-7951 Telephone encounter Note* Telephone Encounter - Coty Smith - 06/09/2023 9:45 AM EST See previous TE from today Name of caller: Yodit Contact phone number: [phone] Relationship to Patient: patient Provider: Dr Key [...] business hours to return their call: N/A [facility] HospitalNfmrks51-63-3890 Evaluation + Plan note* Assessment & Plan Note - ASAF Ramos CNP - 06/04/2023 3:20 PM ESTAssociated Problem(s): Mass of joint of right wrist Suspect ganglion cyst of the right wrist. Will obtain imaging to rule out anything worrisome. Continue compression sleeve. Referral placed to orthopedics for further evaluation and treatment due to size and bothersome. [facility] HospitalWmfenx54-65-1902 Miscellaneous Notes* Assessment & Plan Note - ASAF Ramos CNP - 06/04/2023 3:20 PM ESTAssociated Problem(s): Mass of joint of right wrist Suspect ganglion cyst of the right wrist. Will obtain imaging to rule out anything worrisome. Continue compression sleeve. Referral placed to orthopedics for further evaluation and treatment due to size and bothersome. documented in this [facility]01-10-2024 History of Present illness Narrative* Dian Stuart - 06/04/2023 1:20 PM EST Patient was identified by name and Date of . * 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, VERT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 - [employer] - 06/04/2023 1:20 PM EST Images from [...] of carpal tunnel surgery in 06/2022 in [place] on the right wrist. Prior to Admission [...] CNP 06/04/2023 3:21 PM documented in this [facility]11-29-2023 Evaluation + Plan note* Assessment & Plan Note - ASAF Ramos CNP - 04/23/2023 1:24 PM ESTAssociated Problem(s): Hypertension Blood pressure initially elevated. Continue current medications and follow-up for labs [id number] Miscellaneous Notes* Assessment & Plan Note - [...] Will check hemoglobin A1c documented in this [facility]11-29-2023 Evaluation + Plan note* Assessment & Plan Note - ASAF Ramos CNP - 04/23/2023 1:23 PM ESTAssociated Problem(s): Hereditary hemochromatosis (HCC) Check CBC CMP TIBC iron and ferritin. Consider referral to hematology. [id number] Evaluation + Plan note* Assessment & Plan Note - ASAF Ramos CNP - 04/23/2023 1:22 PM ESTAssociated Problem(s): Type 2 diabetes mellitus without complication, without long-term current useof insulin ([facility]) ([facility]) Controlled. Glucose readings have been good that she brought in from home. Will check hemoglobin A1c [id number] History of Present illness Narrative* Dian Stuart - 04/23/2023 10:00 AM EST Patient was identified by name and Date of . Health Main: AWV-Today DEXA-declined Colon-completed in [place]([facility] x2 yrs ago)-sent MYRNA Pneumo-discuss with provider-done at visit DM foot-pended DM dental-done a year ago Zoster-stated it was completed-[facility] [address] Lung-declined RSV-declined Flu-completed at [facility] Patient was identified by name and Date [...] from the original note were not included. [facility] [address] [facility] [address] Dept: [phone] Dept Chief Complaint: Yodit Landin is an [...] Also reviewed during this visit: Found an apartment/[facility] [place]. Will be moving soon. Will be going [...] kg/m No results found. documented in this [facility]11-29-2023 Instructions* Patient Instructions* ASAF Ramos CNP [...] Recommendations: A preventive eye exam by an extracorporeal circulation specialist is recommended every 1-2 years to screen for glaucoma, cataracts, macular degeneration, and other eye disorders. A preventive dental visit is recommended every 6 months. Try to get at least 150 minutes of exercise per week or 10,000 steps per day on a pedometer. You need 1200-1500mg of calcium and 4967-1756 international units of vitamin D per day. [...] Everywhere. * Pneumococcal Conjugate Vaccine (20-Valent), ADULT (Russian) documented in this [facility]11-08-2023 Evaluation + Plan note* Assessment & Plan Note - ASAF Ramos CNP - 04/02/2023 12:51 PM ESTAssociated Problem(s): Primary osteoarthritis involving multiple joints Obtain records. For now we will continue indomethacin 50 mg daily for pain. [facility] [id number] Miscellaneous Notes* Assessment & Plan Note - ASAF Ramos CNP - 04/02/2023 12:51 PM ESTAssociated Problem(s): Primary osteoarthritis involving multiple joints Obtain records. For now we will continue indomethacin 50 mg daily for pain. * Assessment & Plan Note - ASAF Raoms CNP - 04/02/2023 12:50 PM ESTAssociated Problem(s): [...] consider referral to hematology documented in this [facility]11-08-2023 Evaluation + Plan note* Assessment & Plan Note - ASAF Ramos CNP - 04/02/2023 12:50 PM ESTAssociated Problem(s): Hypertension Initial blood pressure elevated 161/81. Repeat blood pressure good 132/78. Continue chlorthalidone 25 mg daily, Lasix 20 mg, irbesartan 300 mg daily. [facility] HospitalDjhaoq75-74-6208 Evaluation + Plan note* Assessment & Plan Note - ASAF Ramos CNP - 04/02/2023 12:49 PM ESTAssociated Problem(s): Type 2 diabetes mellitus without complication, without long-term current useof insulin (CMS/HCC) (HCC) Controlled. Glucose readings fasting under 110 consistently per patient diabetes log. Will check hemoglobin A1c at next visit. [facility] [id number] Evaluation + Plan note* Assessment & Plan Note - ASAF Ramos CNP - 04/02/2023 12:10 PM ESTAssociated Problem(s): Hereditary hemochromatosis (HCC) Obtain records. Return for labs as scheduled (check cbc, cmp, TIBC, iron and ferritin) consider referral to hematology [facility] HospitalNnjkgy98-95-8874 History of Present illness Narrative* Dian Stuart - 04/02/2023 11:00 AM EST Patient was identified by name and Date of . Health Main: AWV-needs scheduled DEXA-pended Colon-pended Covid-declined PHQ-completed Hep C-declined Tdap-declined Mammo-completed Sept Zoster-declined Pneumo-declined [place] [place] [place] Flu-completed [facility] MYRNA SENT TO [facility]PCP[facility] AND [facility] * ASAF Ramos [...] complication, without long-term current use of insulin ([facility]/HCC) (HCC) Assessment & Plan: Controlled. Glucose [...] as new patient, previous primary care provider [place] provider, last seen? -01/2023 by previous provider. Specialists/other providers? 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 Chief complaint(s): New Patient and Health Maintenance (AWV-needs scheduled/DEXA-pended/Colon-pended/Covid-declined/PHQ-completed/Hep C-declined/Tdap-declined/Mammo-completed Jan/Zoster-declined/Pneu mo-declined/Flu-completed [facility]) Has been out of state for about 10 years. 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 Recently moved back to [place] to be close to her son and vjmzxpsu-su-ehx whom she states were having some marital [...] Reports she did have a colonoscopy last [id number] in [place]-reports she was told it was normal -jodi [...] is tolerable. Also sees a chiropractor in [place]. Hypertension-states her blood pressure is normally in [...] CNP 04/02/2023 12:59 PM documented in this [facility] SystemQcjznf47-61-3957 Telephone encounter Note* Telephone Encounter - Juana Alegria - 03/21/2023 9:43 AM EDT Name of caller: Yodit Landin Relation to patient: patient Contact phone number: [phone] Appointment scheduled with: 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 Appointment date [...] provider should be aware of: diabetic, hemochromatosis [facility] HospitalFbqnoj68-96-6673 Miscellaneous Notes* Telephone Encounter - Juana Alegria - 03/21/2023 9:43 AM EDT Name of caller: Yodit Landin Relation to patient: patient Contact phone number: [phone] Appointment scheduled with: 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 Appointment date [...] aware of: diabetic, hemochromatosis [facility] No data available for this section [facility] Evaluation note* Diagnosis Type 2 diabetes mellitus without complication, without long-term current use of insulin (CMS/HCC) (HCC)- Primary Hereditary hemochromatosis (HCC) Hereditary hemochromatosis Primary hypertension Unspecified essential hypertension [facility]* Diagnosis Routine general medical examination at health care facility- Primary Routine general medical examination at a health care facility Type 2 diabetes mellitus without complication, without long-term current use of insulin (CMS/HCC) (HCC) Primary hypertension Unspecified essential hypertension Hereditary hemochromatosis (HCC) Hereditary hemochromatosis Hypothyroidism, unspecified type Immunization due documented in [facility]* Diagnosis Mass of joint of right wrist- Primary documented in this encounter [facility]* Diagnosis Onset Date Resolution Status Dehydration acute Nausea vomiting and diarrhea acute Orthostasis acute [facility] Work Phone: Evzdbidspa note* Diagnosis Hereditary hemochromatosis (HCC)- Primary Hereditary hemochromatosis Primary hypertension Unspecified essential hypertension Type 2 diabetes mellitus without complication, without long-term current use of insulin (CMS/HCC) (HCC) Bilateral foot pain Mass of joint of right wrist Other specified hypothyroidism [facility]* Diagnosis Mass of joint of right wrist Ganglion, right wrist documented in this encounter [facility]* Diagnosis Mass of joint of right wrist- Primary Ganglion, right wrist [facility]* Diagnosis Mass of joint of right wrist- Primary Ganglion, right wrist documented in this encounter [facility]* Diagnosis H/O excision of mass- Primary Ganglion, right wrist documented in this encounter [facility] note* Diagnosis Visit for wound check- Primary documented in this encounter [facility] note* Diagnosis S/P excision of ganglion cyst- Primary Mass of joint of right wrist [facility]* Diagnosis Mass of joint of right wrist S/P excision of ganglion cyst documented in this encounter [facility] note* Diagnosis Type 2 diabetes mellitus without complication, without long-term current use of insulin (CMS/HCC) (HCC)- Primary Hereditary hemochromatosis (HCC) Hereditary hemochromatosis Swelling of both lower extremities Bilateral foot pain Primary hypertension Unspecified essential hypertension documented in this encounter [facility] note* Diagnosis Mass of joint of right wrist- Primary S/P excision of ganglion cyst documented in this encounter [facility]* Diagnosis Left buttock pain- Primary Unspecified myalgia and myositis Bilateral foot pain Colon cancer screening Special screening for malignant neoplasms, colon documented in this encounter [facility] note* Diagnosis Anemia, unspecified type- Primary Iron deficiency anemia, unspecified iron deficiency anemia type Primary hypertension Unspecified essential hypertension Gastroesophageal reflux disease without esophagitis Esophageal reflux Hypothyroidism, unspecified type Mixed hyperlipidemia documented in this encounter [facility] note* Diagnosis Chronic left-sided low back pain without sciatica- Primary Left buttock pain Unspecified myalgia and myositis documented in this encounter [facility]* Diagnosis Chronic left-sided low back pain without sciatica documented in this [facility]* Diagnosis Osteopenia of lumbar spine- Primary Degenerative disc disease, lumbar documented in this [facility]* Diagnosis Swelling of both lower extremities documented in this encounter [facility]* Diagnosis Osteopenia of lumbar spine- Primary Degenerative disc disease, lumbar documented in this encounter [facility]* Diagnosis Vitamin D deficiency- Primary Hypothyroidism, unspecified type documented in this encounter [facility]* Diagnosis Type 2 diabetes mellitus without [...] Bilateral foot pain [facility]* Diagnosis History of tobacco use Personal history of tobacco use, presenting hazards to health [facility] this [facility]* Diagnosis Murmur, cardiac Undiagnosed cardiac murmurs [facility]* Diagnosis Hypothyroidism, unspecified type [facility]* Diagnosis Encounter for screening mammogram for malignant neoplasm of breast documented [facility] this [facility]* Diagnosis Preoperative clearance- Primary Unspecified pre-operative examination Type 2 diabetes mellitus without complication, without long-term current use of insulin (CMS/HCC) (HCC) Primary hypertension Unspecified essential hypertension [facility]* Diagnosis Preoperative clearance- Primary Unspecified pre-operative examination Type 2 diabetes mellitus without complication, without long-term current use of insulin (CMS/HCC) (HCC) Primary hypertension Unspecified essential hypertension [facility]* Diagnosis Type 2 [...] Unspecified essential hypertension [facility]* Diagnosis Type 2 [...] hypercholesterolemia Immunization due documented in this encounter [facility] note* Diagnosis Type 2 diabetes [...] right knee- Primary documented in this encounter [facility] note* Diagnosis Type 2 diabetes [...] Vitamin D deficiency documented in this encounter [facility] note* Diagnosis Type 2 diabetes [...] Hypothyroidism, unspecified type [facility] instructions No data available for this section [facility] Progress note No data available for this section [facility] Reason for referral (narrative)* Consultation (Routine) - Pending Review Specialty Diagnoses / Procedures Referred By Moody bey Referred To Contact Orthopedic Surgery Diagnoses Mass of joint of right wrist 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 APRN - CNP [address] [place] [address] [facility] [address] [place] [address] Referral ID Status Reason Start Date Expiration Date Visits Requested Visits Authorized [id number] Pending Review Specialty Services Required 06/04/2023 06/03/2024 1 1 [facility] for referral (narrative)* Consultation (Routine) - Pending Review Specialty Diagnoses / Procedures Referred By Moody bey Referred To Contact Podiatry Diagnoses Bilateral foot pain Procedures [place] OFFICE/OUTPATIENT [facility] 60 MINUTES 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 APRN - CNP [address] [facility] [place] [address] Alvin Beltran, DPOlivia [address] [place] [address] Referral ID Status Reason Start Date Expiration Date Visits Requested Visits Authorized [id number] Pending Review Specialty Services Required 07/24/2023 07/23/2024 1 1 Mani Frey for referral (narrative)* Consultation (Routine) - Pending Review Specialty Diagnoses / Procedures Referred By Moody t Referred To Contact Orthopedic Surgery Diagnoses Degenerative disc disease, lumbar 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 APRN - CNP [address] [place] [address] [place] [address] Yanick Meléndez [facility] [address] [place] [address] Referral ID Status Reason Start Date Expiration Date Visits Requested Visits Authorized [id number] Pending Review Specialty Services Required 12/29/2023 12/28/2024 1 1 Mani Frey for referral (narrative)No reason for referral information availableWCleveland Clinic [facility] Work Phone: Summary Purpose Family History No Family History Records Found Advance Directives No Advanced Directives Records Found Advance Directive Response Recorded Date/ Time Living Will No July 01 5:51pm Power of Mirror Installer No July 01, 2023 5:51pm Latest Code [...] Do you have a Healthcare Power of Mirror Installer? No December 31, 2023 2:55pm Chief Complaint [...] with contrast, bubble, strain, and 3D PRN [place] ECHO TTHRC R-T 2D W/WOM-MODE COMPL SPEC&COLR D [place] TTE W OR WO FOL WCON,DOPPLER Karrieenthal, Sedrick, VERT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 - [employer] [address] [facility] [place] [address] [place] [address] Referral ID Status Reason Start Date Expiration Date V isits Requested Visits Authorized [id number] Pending Review 01/21/2024 01/20/2025 1 1 Specialty Diagnoses / Procedures Referred By Contac t Referred To Contact Radiology Diagnoses History of tobacco use Procedures CT lung screening low dose Bridenthal, Sedrick, VERT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 - [employer] [address] [place] [address] [place] [address] Referral ID Status Reason Start Date Expiration Date V isits Requested Visits Authorized [id number] Pending Review 01/21/2024 01/20/2025 1 1 Specialty Diagnoses / Procedures Referred By Moody t Referred To Contact Occupational Therapy Diagnoses Mass of joint of right wrist S/P excision of ganglion cyst Procedures [place] OFFICE/OUTPATIENT [facility] 60 MINUTES Nadya Harkins PA-C [address] [facility] [address] [place] [address] Referral ID Status Reason Start Date Expiration Date Visits Requested Visits Authorized [id number] Pending Review Eval and Treat 10/14/2023 10/13/2024 99 99 Additional Source Comments Reason for Visit (unrecogniz ed section and content) Reason Onset Date Comments New Patient 03/21/2023 Reason Comments New Patient Health Maintenance AWV-needs phifdwoqbIFJT-yltjgcJwqaq-kzromkWyhgd-declinedPHQ-completedHep I-isoiwkgzTpqd-harmyfrhMpsir-completed JwijEiycik-glylyvjrFmfuvh-iflfztedMiu-completed [facility] Reason Comments Medicare Annual Wellness Visit Initial Health Maintenance SVI-PkkuoFCKH-siobvm edColon-completed in [place]([facility] x[facility] y[facility] ago)Pneumo-discuss with providerDM foot-pendedDM dental-done a year agoMelissastisidro-stated it was [place]-[facility] [place] [id number]-mpbrtmtkAwv-kdzsxapqa at [facility] Reason Comments Cyst Bilateral-but right is the one that is painful Reason Comments Medication Check Foot Pain Pended referral Reason Comments New Patient Right wrist mass Specialty Diagnoses / Procedures Referred By Moody bey Referred To Contact Orthopedic Surgery Diagnoses Mass of joint of right wrist 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, VERT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 - [employer] [address] [facility] [place] [address] [place] [address] [facility] [address] [place] [address] Referral ID Status Reason Start Date Expiration Date V isits Requested Visits Authorized [id number] Closed Specialty Services Required 06/04/2023 06/03/2024 1 1 Reason Onset Date Comments Surgery Scheduling 08/05/2023 Surgery Sched uling Reason Onset Date Comments appt with Dr. Alvin Beltran, DPM<9>on 2 :45 08/19/2023 Specialty Diagnoses / Procedures Referred By Moody bey Referred To Contact Diagnoses Ganglion, right wrist Ganglion, right wrist [M67.431] Procedures [place] EXCISION GANGLION WRIST DORSAL/VOLAR PRIMARY RIGHT VOLAR RADIAL WRIST MASS EXCISION Deric, Austin Martinez MD [address] [facility] [address] [place] [address] [facility] [address] [place] [address] Referral ID Status Reason Start Date Expiration Date Visits Re quested Visits Authorized [id number] 1 1 Reason Comments Post-op Problem Bandaging [...] CT lung screening low dose Bridenthal, Sedrick, VERT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 - [employer] [address] [facility] [place] [address] [place] [address] Referral ID Status Reason Start Date Expiration Date Visits Re quested Visits Authorized [id number] Closed 01/21/2024 01/20/2025 1 1 Specialty Diagnoses / Procedures Referred By Contac t Referred To Contact Cardiology Diagnoses Murmur, cardiac Procedures Transthoracic echocardiogram (TTE) complete with contrast, bubble, strain, and 3D PRN [place] ECHO TTHRC R-T 2D W/WOM-MODE COMPL SPEC&COLR D [place] TTE W OR WO FOL WCON,DOPPLER Bridenthal, Sedrick, VERT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 - [employer] [address] [facility] [place] [address] Referral ID Status Reason Start Date Expiration Date Visits Re quested Visits Authorized [id number] Closed 01/21/2024 01/20/2025 1 1 Reason Onset Date Comments Results 02/13/2024 Reason Comments Pre-op Exam Surgical clearance Reason Onset Date Comments Med Refill 03/25/2024 Reason Comments Medicare Annual Wellness Visit Subsequen t Blood Work Health Maintenance Tdap vaccine- agree2 nd shingles vaccine- advised to go to pharmacy Dental exam- not doneEye exam- [facility] [place] - will send for record Reason Onset Date Comments Knee Pain 05/24/2024 Reason Comments Knee Pain Right-started a week ago Reason Onset Date Comments Results 05/25/2024 Reason Comments Follow-up Knee Pain Reason Onset Date Comments Med Refill 09/22/2024 Reason Onset Date Comments Medication Question 09/22/2024 Care Teams (unrecognized sec tion and content) 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 Relationship Specialty Start [place] [address] PCP - General Family Medicine 04/02/23 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 Relationship Specialty Start Date End Date Moshe Key [facility] [place] [address] PCP - General Family Medicine 04/02/23 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 Relationship Specialty Start Date End Date Moshe Key MD [facility] [place] [address] PCP - General Family Medicine 04/02/23 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 Relationship Specialty Start Date End Date Moshe Key MD [facility] [place] [address] PCP - General Family Medicine 04/02/23 Team Status: Active Member Role Status Dates No Primary Care Physician Primary Care Provider Active Team Status: Inactive Member Role Status Dates Gerry Gray PA, PA Attending Provider Active Team Status: Inactive Member Role Status Dates Dr. Juan Jose Stallworth , DO Emergency Provider Active No Primary Care Physician Primary Care Provider Active 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 Relationship Specialty Start Date End Date Moshe Key MD [address] [place] [address] PCP - General Family Medicine 04/02/23 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 Relationship Specialty Start Date [place] [address] PCP - General Family Medicine 04/02/23 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 Relationship Specialty Start [place] [address] PCP - General Family Medicine 04/02/23 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 Relationship Specialty Start Date [place] [address] PCP - General Family Medicine 04/02/23 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 Relationship Specialty Start Date [place] [address] PCP - General Family Medicine 04/02/23 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 Relationship Specialty Start Date End Date Moshe Key MD [address] [place] [address] PCP - General Family Medicine 04/02/23 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 Relationship Specialty Start Date End Date 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 VERT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 - [employer] [address] [facility] [place] [address] PCP - General Nurse Practitioner Family 09/03/23 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 Relationship Specialty Start Date End Date Moshe Key MD [address] [facility] [place] [address] PCP - General Family Medicine 09/04/23 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 Relationship Specialty Start Date End Date Moshe Key MD [address] [facility] [place] [address] PCP - General Family Medicine 09/04/23 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 Relationship Specialty Start Date End Date Moshe Key MD [address] [facility] [place] [address] PCP - General Family Medicine 09/04/23 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 Relationship Specialty Start Date End Date Moshe Key MD [address] [facility] [place] [address] PCP - General Family Medicine 09/04/23 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 Relationship Specialty Start Date End Date Moshe Key MD [address] [facility] [place] [address] PCP - General Family Medicine 09/04/23 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 Relationship Specialty Start Date End Date Moshe Key MD [address] [facility] [place] [address] PCP - General Family Medicine 09/04/23 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 Relationship Specialty Start Date End Date Moshe Key MD [address] [facility] [place] [address] PCP - General Family Medicine 09/04/23 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 Relationship Specialty Start Date End Date Moshe Key MD [address] [facility] [place] [address] PCP - General Family Medicine 09/04/23 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 Relationship Specialty Start Date End Date Moshe Key MD [address] [facility] [place] [address] PCP - General Family Medicine 09/04/23 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 Relationship Specialty Start Date End Date Moshe Key MD [address] [facility] [place] [address] PCP - General Family Medicine 09/04/23 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 Relationship Specialty Start Date End Date Moshe Key MD [address] [facility] [place] [address] PCP - General Family Medicine 09/04/23 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 Relationship Specialty Start Date End Date Moshe Key MD [address] [facility] [place] [address] PCP - General Family Medicine 09/04/23 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 Relationship Specialty Start Date End Date Moshe Key MD [address] [facility] [place] [address] PCP - General Family Medicine 09/04/23 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 Relationship Specialty Start Date End Date Moshe eKy MD [address] [facility] [place] [address] PCP - General Family Medicine 09/04/23 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 Relationship Specialty Start Date End Date Moshe Key MD [address] [facility] [place] [address] PCP - General Family Medicine 09/04/23 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 Relationship Specialty Start Date End Date Moshe Key MD [address] [facility] [place] [address] PCP - General Family Medicine 09/04/23 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 Relationship Specialty Start Date End Date Moshe Key MD [facility] [place] [address] PCP - General Family Medicine 09/04/23 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 Relationship Specialty Start Date End Date Moshe Key MD [facility] [place] [address] PCP - General Family Medicine 09/04/23 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 Relationship Specialty Start Date End Date Moshe Key MD [address] [place] [address] [place] [address] PCP - General Family Medicine 09/04/23 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 Relationship Specialty Start Date End Date Moshe Key MD [address] [facility] [place] [address] PCP - General Family Medicine 09/04/23 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 Relationship Specialty Start Date End Date Moshe Key MD [address] [place] [address] [place] [address] PCP - General Family Medicine 09/04/23 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 Relationship Specialty Start Date End Date Moshe Key MD [address] [facility] [place] [address] PCP - General Family Medicine 09/04/23 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 Relationship Specialty Start Date End Date Moshe Key MD [address] [facility] [place] [address] PCP - General Family Medicine 09/04/23 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 Relationship Specialty Start Date End Date Moshe Key MD [address] [facility] [place] [address] PCP - General Family Medicine 09/04/23 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 Relationship Specialty Start Date End Date Moshe Key MD [address] [facility] [place] [address] PCP - General Family Medicine 09/04/23 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 Relationship Specialty Start Date End Date Moshe Key MD [address] [facility] [place] [address] PCP - General Family Medicine 09/04/23 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 Relationship Specialty Start Date End Date Moshe Key MD [address] [facility] [place] [address] PCP - General Family Medicine 09/04/23 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 Relationship Specialty Start Date End Date Moshe Key MD [address] [facility] [place] [address] PCP - General Family Medicine 09/04/23 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 Relationship Specialty Start Date End Date Moshe Key MD [address] [facility] [place] [address] PCP - General Family Medicine 09/04/23 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 Relationship Specialty Start Date End Date Moshe Key MD [address] [place] [id number] PCP - General Family Medicine 09/04/23 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 Relationship Specialty Start Date End Date Moshe Key MD [address] [place], [place] [address], [place] [address] PCP - General Family Medicine 09/04/23 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 Relationship Specialty Start Date End Date Moshe Key MD [address] [place], [place] [address], [place] [address] PCP - General Family Medicine 09/04/23 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 Relationship Specialty Start Date End Date Moshe Key MD [address] [place], [place] [address], [place] [address] PCP - General Family Medicine 09/04/23 Team [...] August 30, 2024 End: August 30, 2024 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 Relationship Specialty Start Date End Date Moshe Key MD [address] [place], [place] [id number] PCP - General Family Medicine 09/04/23 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 Relationship Specialty Start Date End Date Moshe Key MD [address] [place], [place] [id number] PCP - General Family Medicine 09/04/23 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 Relationship Specialty Start Date End Date Moshe Key MD [address] [place] [id number] PCP - General Family Medicine 09/04/23 INFORMATION SOURCE (unrecogn ized section and content) DATE CREATED AUTHOR 06/08/2023 [facility] ([place]) DATE CREATED AUTHOR AUTHOR'S ORGANIZ ATION 05/27/2024 [facility] DATE CREATED AUTHOR AUTHOR'S ORGANIZ ATION 09/28/2024 [facility] DATE CREATED AUTHOR AUTHOR'S ORGANIZ ATION 12/04/2024 [facility] Goals (unrecognized [...] at 200 mL/hr, Administer over 30 Minutes, Underwater Hunter to O.R., On Fri09/03/23 at 0715, For 1 dose, Preprocedure, Administer within 1 hour prior to incision. Recommend to repeat in 3-4 hours after initial dose if still intra-op. Mini-Bag Plus bag, Suspected Indication (Select all that apply): Surgical Prophylaxis 921 (New Bag - Prov ider: Alaina Rubio APRN - ACTIVITIES DIRECTOR) famotidine (Pepcid) 20 mg in sodium chloride [...] hydralazine IV order. lidocaine-EPINEPHrine (Xylocaine W/EPI) 1 %-1:924997 injection (CANCELED) As needed, Starting on Fri09/03/23 [...] BE BASED ON THE PRIMARY CLINICAL RECORDS. [employer] [facility]. provides no warranty or guarantee of the accuracy or completeness of information in this document.
[2024-12-05 18:03] LABS: Troponin T High Sens 2 HR 773 ng/L (<=14)
[2024-12-05 18:11] LABS: Magnesium 1.3 mg/dL (1.5-2.2)
[2024-12-05 19:12] LABS: Pro- Brain NATRIURETIC PEPTIDE 2390 pg/mL (<=900)
--- NOTE | 2024-12-05 19:30 | ECHOD_ITS ---
Reason For Study Reason For Study: NSTEMI Procedure This was a 2D Doppler, Color Flow transthoracic echocardiogram. Exam performed portable in patient room. Left Ventricle Normal LV size. Left ventricular systolic function is normal. The estimated ejection fraction is 54 %. Stage 1 diastolic dysfunction. Infero-Basal: Severely Hypokinetic. Basal inferoseptal: Severely Hypokinetic. The rest of the wall segments are normal. Atria Normal left atrium. Normal right atrium. Mitral Valve There is moderate mitral annular calcification. Tricuspid Valve Normal tricuspid valve. Mild tricuspid valve insufficiency. Pulmonary artery systolic pressure is 25 mmHg. Aortic Valve Trisinus/trileaflet aortic valve. Pulmonic Valve The pulmonic valve is not well visualized. Great Vessels Normal aortic root. The pulmonary artery is normal size. Inferior vena cava collapse with respiration. Pericardium/Pleural No pericardial effusion. MMode/2D Measurements & Calculations LVIDd: 3.8 cm IVSd: 1.2 cm LVOT diam: 2.0 cm LVIDs: 2.1 cm LVPWd: 0.95 cm LVOT area: 3.2 cm2 RVDd: 3.1 cm FS: 45.5 % asc Aorta Diam: 3.2 cm LAV(MOD-bp): 37.2 ml LVAd ap4: 17.2 cm2 LAV(MOD-bp) Indexed: 18.5 ml/m2 LVLd ap4: 7.2 cm LAV(MOD-sp2): 35.4 ml EDV(MOD-sp4): 34.7 ml LAV(MOD-sp4): 35.9 ml EDV(sp4-el): 34.7 ml LVAs ap4: 10.5 cm2 LVLs ap4: 6.4 cm ESV(MOD-sp4): 15.4 ml ESV(sp4-el): 14.8 ml EF(MOD-sp4): 55.5 % EF(sp4-el): 57.5 % LVAd ap2: 16.0 cm2 SV(MOD-sp4): 19.2 ml SV(MOD-sp2): 17.2 ml LVLd ap2: 7.0 cm SI(MOD-sp4): 9.6 ml/m2 SI(MOD-sp2): 8.6 ml/m2 EDV(MOD-sp2): 31.6 ml EDV(sp2-el): 31.2 ml LVAs ap2: 9.8 cm2 LVLs ap2: 6.1 cm ESV(MOD-sp2): 14.4 ml ESV(sp2-el): 13.5 ml EF(MOD-sp2): 54.5 % SV(sp4-el): 19.9 ml Ao sinus diam: 2.[address] Junction: 2.2 cm LA dimension(2D): 3.7 cm LA A4 area: 15.6 cm2 RA A4 area: 9.4 cm2 TAPSE: 1.4 cm Time Measurements MV dec time: 0.26 sec Doppler Measurements & Calculations MV E max nikolai: 85.5 cm/sec Lat Peak E' Nikolai: 8.5 cm/sec Med Peak E' Nikolai: 7.2 cm/sec MV A max nikolai: 138.5 cm/sec E/E' lat: 10.1 E/E' med: 11.9 MV E/A: 0.62 MV dec slope: 324.6 cm/sec2 Ao V2 max: 186.2 cm/sec LV V1 max: 109.6 cm/sec Ao max P.9 mmHg LV V1 max P.8 mmHg Ao V2 mean: 137.6 cm/sec LV V1 mean P.5 mmHg Ao mean P.4 mmHg LV V1 mean: 73.8 cm/sec Ao V2 VTI: 41.6 cm LV V1 VTI: 20.8 cm AV (velocity ratio): 0.50 ROOSEVELT(I,D): 1.6 cm2 ROOSEVELT(V,D): 1.9 cm2 SV(LVOT): 66.8 ml PA V2 max: 83.9 cm/sec TR max nikolai: 236.3 cm/sec TR max P.3 mmHg ECHO/Echo Complete Interpretation Summary Normal LV size. Left ventricular systolic function is normal. Stage 1 diastolic dysfunction. The estimated ejection fraction is 54 %. Pulmonary artery systolic pressure is 25 mmHg. Ordering Physician: Calista Weeks Performed By: Patience Valenzuela RDCS
--- NOTE | 2024-12-05 19:30 | EKG12_ITS ---
Test Reason : CP ADMISSION Blood Pressure : */* mmHG Vent. Rate : 84 BPM Atrial Rate : 84 BPM P-R Int : 152 ms QRS Dur : 84 ms QT Int : 368 ms P-R-T Axes : 27 -7 33 degrees QTcB Int : 434 ms Normal sinus rhythm Low voltage QRS Nonspecific ST abnormality Abnormal ECG When compared with ECG of 05-Dec-2024 13:44, MANUAL COMPARISON REQUIRED DATA IS UNCONFIRMED Confirmed by MD LIAN, RULA ([id number]), assignment editor KAROL SHAY ([id number]) on 12/07/2024 10:58:02 AM Referred By: Confirmed By: RULA BEAL MD
--- NOTE | 2024-12-05 19:30 | EKG12_ITS ---
Test Reason : CP ADMISSION Blood Pressure : */* mmHG Vent. Rate : 84 BPM Atrial Rate : 84 BPM P-R Int : 152 ms QRS Dur : 84 ms QT Int : 368 ms P-R-T Axes : 27 -7 33 degrees QTcB Int : 434 ms Normal sinus rhythm Low voltage QRS Nonspecific ST abnormality Abnormal ECG When compared with ECG of 05-Dec-2024 13:44, MANUAL COMPARISON REQUIRED DATA IS UNCONFIRMED Confirmed by MD LIAN, RULA ([id number]), sports editor KAROL SHAY ([id number]) on 12/07/2024 10:58:02 AM Referred By: Confirmed By: RULA BEAL MD
[2024-12-05 19:54] LABS: Troponin T High Sens 4 HR 806 ng/L (<=14)
[2024-12-05] MEDS: 0.9% Normal Saline (1000mL) 1,000 ML 100 ML IV (20:39)
[2024-12-05] MEDS: Magnesium Sulfate 4gm/100mL 4 GM/100 ML IV.SOLN. IV (22:25)
[2024-12-05 22:40] LABS: Partial Thromboplast Time 48.9 Seconds (24.1-36.2)
[2024-12-06] VITALS (13 sets, daily range): BP systolic 100–134; BP diastolic 54–84; PULSE 63–88; RESP 14–18; TEMP 36.4–37.4; O2SAT 93–99; BMI 36.8
[2024-12-06 05:24] LABS: Partial Thromboplast Time 50.6 Seconds (24.1-36.2)
[2024-12-06 05:50] LABS: AST(SGOT) 73 U/L (<=31); Alanine Aminotransfer ALT/SGPT 24 U/L (<=34); Albumin, Serum 3.9 g/dL (3.4-4.8); Alkaline Phosphatase 28 U/L (35-104); Anion Gap 14 (5-15); BUN 28 mg/dL (4-19); BUN/Creat Ratio 18.1 RATIO (10-20); Calcium,Total 8.8 mg/dL (7.6-11.0); Carbon Dioxide 21.4 mmol/L (21.0-32.0); Chloride 101 mmol/L (98-108); Cholesterol 166 mg/dL (<=200); Estimated Creatinine Clearance 37.74 ml/min (50-250); Globulin 2.6 g/dL (2.2-4.2); Glucose 142 mg/dL (70-99); Low Density Lipoprotein Calc. 75 mg/dL; Potassium 4.0 mmol/L (3.3-5.1); Triglycerides 258 mg/dL; Very Low Density Lipoprotein 52 mg/dL (5-40); cholesterol:hdl ratio screen 4.18
[2024-12-06] MEDS: Aspirin E.C. 81 MG Tablet PO (06:35)
[2024-12-06 07:27] LABS: Hematocrit 30.5 % (37-47); Hemoglobin 10.3 g/dL (12.0-15.0); Mean Corp Hgb Conc 33.8 g/dL (32-36); Mean Corpuscular Volume 95.9 fL (81-99); Mean Platelet Vol. 10.4 fl (6.2-12.0); Platelet Count 142 K/mm3 (150-450); RBC Distribution Width CV 13.5 % (11.6-14.6); RBC Distribution Width SD 47.8 fl (35.1-43.9); Red Blood Count 3.18 M/mm3 (4.2-5.4); White Blood Count 6.4 K/mm3 (4.4-11.0)
[2024-12-06 07:28] LABS: Immature Granulocytes Count 0.020 X10^3/uL (0.0-0.0)
--- NOTE | 2024-12-06 08:13 | PN.HOSP_ITS ---
Reason for Visit Chief Complaint: Chest pain Subjective Subjective Nervous about the heart catheterization Objective Data Objective Data Vital Signs: Vital Signs Temp Pulse Resp BP Pulse Ox O2 Del Method 36.4 C L 75 18 101/59 L 93 Room Air 12/06/24 06:29 12/06/24 06:29 12/06/24 06:29 12/06/24 06:29 12/06/24 06:29 12/06/24 06:29 Oxygen Delivery Method Room Air Weight: 97.2 kg Body Mass Index (BMI) 36.8 Intake & Output: Intake and Output for Last 24 Hours 12/04/24 12/05/24 12/06/24 23:59 23:59 23:59 Intake Total 1562 / 1562 174.43 / 174.43 Balance 1562 / 1562 174.43 / 174.43 Lab / Micro Data 12/06/24 04:45 12/06/24 04:45 Labs: Laboratory Results - last 24 hr 12/05/24 14:27: WBC 6.9, RBC 3.50 L, Hgb 11.1 L, Hct 33.4 L, MCV 95.4, MCH 31.7, MCHC 33.2, RDW Std Deviation 46.8 H, RDW Coeff of Christina 13.5, Plt Count 169, MPV 9.9, Immature Gran % (Auto) 0.400, Neut % (Auto) 65.8, Lymph % (Auto) 24.2, Bland % (Auto) 8.5, Eos % (Auto) 0.7, Baso % (Auto) 0.4, Absolute Neuts (auto) 4.5, Absolute Lymphs (auto) 1.66, Nucleated RBC % 0, PT 13.6, INR 1.0, APTT 25.8, Sodium 138, Potassium 4.1, Chloride 99, Carbon Dioxide 22.5, Anion Gap 16 H, BUN 31 H, Creatinine 1.78 H, Estim Creat Clear Calc 32.80 L, Est GFR (MDRD) Non-Af 30 L, BUN/Creatinine Ratio 17.6, Glucose 145 H, Calcium 9.3, Total Bilirubin 0.26, Direct Bilirubin 0.15, AST 77 H, ALT 27, Alkaline Phosphatase 30 L, T roponin T High Sens 730 H*, Total Protein 7.1, Albumin 4.3, Globulin 2.8, Lipase 60 12/05/24 16:55: Magnesium 1.3 L, Troponin T Hi Sens 2 Hr 773 H*, NT pro BNP II 2390 H 12/05/24 18:20: Troponin T Hi Sens 4Hr 806 H* 12/05/24 21:14: POC Glucose 161 H 12/05/24 22:19: APTT 48.9 H 12/06/24 04:45: WBC 6.4, RBC 3.18 L, Hgb 10.3 L, Hct 30.5 L, MCV 95.9, MCH 32.4 H, MCHC 33.8, RDW Std Deviation 47.8 H, RDW Coeff of Christina 13.5, Plt Count 142 L, MPV 10.4, Immature Gran % (Auto) 0.300, Neut % (Auto) 65.4, Lymph % (Auto) 25.5, Bland % (Auto) 8.0, Eos % (Auto) 0.5, Baso % (Auto) 0.3, Absolute Neuts (auto) 4.2, Absolute Lymphs (auto) 1.62, APTT 50.6 H, Sodium 137, Potassium 4.0, Chloride 101, Carbon Dioxide 21.4, Anion Gap 14, BUN 28 H, Creatinine 1.57 H, E stim Creat Clear Calc 37.74 L, Est GFR (MDRD) Non-Af 35 L, BUN/Creatinine Ratio 18.1, Glucose 142 H, Hemoglobin A1c 6.8 H, Calcium 8.8, Total Bilirubin 0.26, A ST 73 H, ALT 24, Alkaline Phosphatase 28 L, Total Protein 6.5, Albumin 3.9, Globulin 2.6, Albumin/Globulin Ratio 1.5, Triglycerides 258 H, Cholesterol 166, LDL Cholesterol, Calc 75, VLDL Cholesterol 52 H, HDL Cholesterol 40, Cholesterol/HDL Ratio 4.18 12/06/24 06:21: POC Glucose 170 H Radiography Diagnostic Testing: Radiology Impression Chest X-Ray 12/05/24 14:40 IMPRESSION: Mild pulmonary vascular congestion. No focal consolidation. Reading Location: [facility] Abdomen/Pelvis CT 12/05/24 15:11 IMPRESSION: 1. No acute intra-abdominal abnormality. 2. Colonic diverticulosis, without additional findings to suggest acute diverticulitis. Reading Location: [id number] Physical Exam Const alert and no apparent distress HEENT head/scalp atraumatic and moist oral mucous membranes Resp normal respiratory effort, no retractions, no use of accessory muscles and clear to auscultation bilaterally Cardio regular rate, regular rhythm, S1 normal heart sound and S2 normal heart sound Assessment & Plan Assessment/Plan (1) Non-ST elevation [place] (NSTEMI): PLAN: Plan Chest Pain w/ Acute NSTEMI: * troponins up to 806. * Cardiology consult. Check echo * heparin gtt, atorvastatin, ASA * Planning on left heart catheterization LAURA on Chronic Kidney Disease Stage III unclear subtype per GFR trend secondary to likely GI losses with recent nausea and emesis bouts as noted/nephrotoxic medication: Admission BUN/Cr 31/1.78, GFR 30, baseline renal function primarily 1.1-1.2, repeat BMP in AM. Chronic normocytic anemia: Admission hemoglobin 11.1, MCV 95.4 however significantly dehydrated, baseline hemoglobin noted previously primarily more recently 8-9 but labs distant and last noted 03/30/2024 hemoglobin 9.6 at that time, will continue to trend. Hypertension: Given presentation with orthostasis, acute kidney injury and low blood pressure holding all hypertensive regimen, add back once clinically appropriate. Hyperlipidemia: Continue home statin and fenofibrate regimen. AM FLP. Diabetes mellitus type II: Hold oral home regimen, ADA diet until n.p.o. status, HgbA1c requested given #1 presentation, accu checks w/ ISS. Obesity: Weight loss and lifestyle changes encouraged. Former tobacco use: Encourage continued tobacco cessation. GERD: Will maintain on PPI. Hypothyroidism: Will continue patient on levothyroxine regimen. DVT prophylaxis: Heparin drip to be continued. Charges/Coding Visit Charges Inpatient E&M: 70233 Subs Hosp L2
[2024-12-06] MEDS: 0.9% Normal Saline (1000mL) 1,000 ML 100 ML IV (08:38)
--- NOTE | 2024-12-06 08:39 | PCM.CONS.C ---
Assessment & Plan Assessment/Plan (1) Non-ST elevation CA (NSTEMI): PLAN: Patient had minor nonspecific ST changes on her ECG. Enzymes were 730/773/806. The patient's had no recurrence of her chest symptoms since resolved the evening prior to admission. She is anemic with a hemoglobin of 10.3 she has multiple cardiovascular risk factors. The patient is not allergic to iodine echocardiogram showed what appeared to to be near normal LV function. Official reading is pending. I recommend the patient undergo left heart catheterization. The procedure risk/benefit and alternatives were explained to the patient she voiced understanding and agrees to proceed. (2) Anemia: QUALIFIERS: Anemia type: unspecified type Qualified Code(s): D64.9 - Anemia, unspecified PLAN: Patient carries a history of anemia initial hemoglobin is 11.1 recheck was 10.3 this morning. This is managed by the primary service she does have a history of hemochromatosis. 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 This is managed by the primary service. (4) High cholesterol: PLAN: Patient's lipids are managed by her primary care physician. She is on fenofibrate, omega-3 fatty acids, and rosuvastatin 10 mg daily. Her target LDL cholesterol should be less than 70 given her diabetes. (5) Hypertension: QUALIFIERS: Hypertension type: primary hypertension Qualified Code(s): I10 - Essential (primary) hypertension PLAN: Blood pressure appears to be adequate controlled on her current medical therapy. This will be continued long-term. PLAN: Plan 1. Recommend left heart catheterization later today. 2. Further recommendations pending outcome of the cath. HPI Consult Data Date of Consult: 12/06/24 HPI Narrative Reason for Consultation: Chest pain with positive enzymes HPI Narrative: MANJULA ROWLAND, is a 69 F who presents after environmental exposure to paint fumes when she was painting in her house. She developed chest discomfort inhaling the paint fumes that lasted several hours and finally resolved in the evening hours. This was the day prior to her coming to the emergency department. Upon arrival to the emergency department the patient's ECG on 12/05/2024 showed a normal sinus rhythm at [address] changes. Her initial enzymes troponin was 730 seconds at seven 73/3 at 806. Her BNP was 2390. The patient carries a history of hypothyroidism obesity hypertension hyperlipidemia and diabetes chronic kidney disease and anemia. The patient's AST was also elevated at 73 on admission. Patient's creatinine clearance was 38 GFR 35. Patient denies any chest symptoms since admission. Echocardiogram being performed showed what appeared to be near normal LV function EF estimated 50% visually is up luminary reading. Patient's current risk factors include a family history, hypertension, hyperlipidemia, diabetes, and remote smoker quit 7 years ago. [facility] Medical History (Updated 12/06/24 @ 08:[address] Anup Womack MD) Wears partial dentures Wears contact lenses Wears glasses Post-menopausal Thyroid disease Diabetes Arthritis High cholesterol Hemochromatosis Injury of head and neck Gastric reflux Former smoker History of pain when walking Hypertension History of echocardiogram Dehydration Nausea vomiting and diarrhea Home Medications ?Medication ?Instructions ?Recorded ?Last Taken ?Type chlorthalidone 25 mg tablet 25 mg PO DAILY 01/16/24 03/28/24 History furosemide 20 mg tablet 20 mg PO DAILY 01/16/24 03/28/24 History irbesartan 300 mg tablet 300 mg PO DAILY 01/16/24 03/29/24 History levothyroxine 75 mcg capsule 150 mcg PO DAILY 01/16/24 03/29/24 History metformin 1,000 mg tablet 1,000 mg PO .QAM 01/16/24 03/28/24 History omega 6-nmy-fuc-fish oil 1,200 mg 1 cap PO DAILY 01/16/24 03/28/24 History (144 mg-216 mg) capsule (Fish Oil) omeprazole 40 mg capsule,delayed 40 mg PO QDAY 01/16/24 03/29/24 History release vitamin E (dl, acetate) 180 mg 180 mg PO DAILY 01/16/24 03/28/24 History (400 unit) capsule digestive enzymes 1 tab PO TID 03/15/24 03/28/24 History ergocalciferol (vitamin D2) 1,250 1,250 mcg PO QWEEK 03/15/24 03/27/24 History mcg (50,000 unit) capsule (Vitamin D2) metformin 500 mg tablet 500 mg PO .1500, 2100 03/15/24 03/28/24 History vit A 750 mcg-vit C 150 mg-D3 1 cap PO TID 03/15/24 03/28/24 History 31.25 aof-kuin-ilyjyketn-quercet capsule (Immune Essentials Daily) acetaminophen 500 mg tablet 500 mg PO Q6H #30 tabs 03/30/24 Unknown Rx fenofibrate 160 mg tablet 160 mg PO QDAY 07/02/24 Unknown History rosuvastatin 10 mg tablet 10 mg PO QHS 09/23/24 Unknown History Allergy/AdvReac Type Severity Reaction Status Date / Time codeine AdvReac Intermediate Vomiting Verified 12/05/24 13:38 sulfamethoxazole (From AdvReac Intermediate Vomiting Verified 12/05/24 13:38 Bactrim) trimethoprim (From Bactrim) AdvReac Intermediate Vomiting Verified 12/05/24 13:38 Family History Mother Ovarian cancer Father CAD (coronary artery disease) Heart disease Hypertension Myocardial infarction Surgical History History of surgery on right wrist Hx of repair of right rotator cuff History of 2 sections Hx of ovarian cystectomy Hx of hysterectomy Hx of tonsillectomy Social History household members: none Smoking Status: Former smoker how long ago did patient quit smoking: Quit 7 years prior, approximate 1 pack/day since teen until quit. alcohol intake: never substance use type: does not use ROS Constitutional Constitutional: Reports as per HPI Eyes Eyes: Reports systems reviewed and no addt'l complaints, except as documented ENT HEENT: Reports systems reviewed and no addt'l complaints, except as documented Cardiovascular Cardiovascular: Reports as per HPI Respiratory/Chest Respiratory/Chest: Reports as per HPI Gastrointestinal Gastrointestinal: Reports systems reviewed and no addt'l complaints, except as documented Genitourinary Genitourinary: Reports as per HPI Musculoskeletal Musculoskeletal: Reports systems reviewed and no addt'l complaints, except as documented Integumentary Integumentary: Reports systems reviewed and no addt'l complaints, except as documented Neurologic Neurologic: Reports systems reviewed and no addt'l complaints, except as documented Psychiatric Psychiatric: Reports systems reviewed and no addt'l complaints, except as documented Endocrine Endocrinology: Reports as per HPI Hematologic/Lymphatic Hematologic/Lymphatic: Reports as per HPI Allergic/Immunologic Allergic/Immunologic: Reports systems reviewed and no addt'l complaints, except as documented Physical Exam Const alert and oriented x3 HEENT normocephalic Eyes EOMs intact bilaterally Neck no carotid bruits Chest inspection of chest normal Resp normal respiratory effort and clear to auscultation bilaterally Cardio Rate: regular rate Rhythm: regular rhythm Heart Sounds: S1 normal and S2 normal; Negative for click, gallop or murmur Peripheral Pulses: radial pulses present bilateral 2+ GI GI Narrative: Obesity Extremity no pedal edema Neuro Neuro Narrative: Alert and oriented x 3 Psych mental status grossly normal Risk Stratification Risk Stratification Applicable: Yes Age >/= 65: Yes >/= 3 CAD Risk Factors (HTN, HLD, DM, family hx of CAD, or current smoker): Yes Aspirin Use in the Past 7 Days: No Severe Angina (>/= episodes in 24 hours): Yes EKG ST Changes >/= 0.5mm: No Positive Cardiac Marker: Yes MANAN Risk Stratification Score: 4 MANAN % Risk: 20% Risk Charges/Coding Visit Charges Inpatient E&M: 98609 Init Hosp L3 Objective Data Vital Signs: Vital Signs Temp Pulse Resp BP Pulse Ox O2 Del Method 97.6 F L 75 18 101/59 L 93 Room Air 12/06/24 06:29 12/06/24 06:29 12/06/24 06:29 12/06/24 06:29 12/06/24 06:29 12/06/24 07:45 Oxygen Delivery Method Room Air Weight: 214 lb 4.629 oz Body Mass Index (BMI) 36.8 Intake & Output: Intake and Output for Last 24 Hours 12/04/24 12/05/24 12/06/24 23:59 23:59 23:59 Intake Total 1562 / 1562 1194.63 / 1194.63 Balance 1562 / 1562 1194.63 / 1194.63 Lab / Micro Data Attestation: I reviewed the patient's lab results. 12/06/24 04:45 12/06/24 04:45 Labs: Laboratory Results - last 24 hr 12/05/24 14:27: WBC 6.9, RBC 3.50 L, Hgb 11.1 L, Hct 33.4 L, MCV 95.4, MCH 31.7, MCHC 33.2, RDW Std Deviation 46.8 H, RDW Coeff of Christina 13.5, Plt Count 169, MPV 9.9, Immature Gran % (Auto) 0.400, Neut % (Auto) 65.8, Lymph % (Auto) 24.2, [place] % (Auto) 8.5, Eos % (Auto) 0.7, Baso % (Auto) 0.4, Absolute Neuts (auto) 4.5, Absolute Lymphs (auto) 1.66, Nucleated RBC % 0, PT 13.6, INR 1.0, APTT 25.8, Sodium 138, Potassium 4.1, Chloride 99, Carbon Dioxide 22.5, Anion Gap 16 H, BUN 31 H, Creatinine 1.78 H, Estim Creat Clear Calc 32.80 L, Est GFR (MDRD) Non-Af 30 L, BUN/Creatinine Ratio 17.6, Glucose 145 H, Calcium 9.3, Total Bilirubin 0.26, Direct Bilirubin 0.15, AST 77 H, ALT 27, Alkaline Phosphatase 30 L, Troponin T High Sens 730 H*, Total Protein 7.1, Albumin 4.3, Globulin 2.8, Lipase 60 12/05/24 16:55: Magnesium 1.3 L, Troponin T Hi Sens 2 Hr 773 H*, NT pro BNP II 2390 H 12/05/24 18:20: Troponin T Hi Sens 4Hr 806 H* 12/05/24 21:14: POC Glucose 161 H 12/05/24 22:19: APTT 48.9 H 12/06/24 04:45: WBC 6.4, RBC 3.18 L, Hgb 10.3 L, Hct 30.5 L, MCV 95.9, MCH 32.4 H, MCHC 33.8, RDW Std Deviation 47.8 H, RDW Coeff of Christina 13.5, Plt Count 142 L, MPV 10.4, Immature Gran % (Auto) 0.300, Neut % (Auto) 65.4, Lymph % (Auto) 25.5, [place] % (Auto) 8.0, Eos % (Auto) 0.5, Baso % (Auto) 0.3, Absolute Neuts (auto) 4.2, Absolute Lymphs (auto) 1.62, APTT 50.6 H, Sodium 137, Potassium 4.0, Chloride 101, Carbon Dioxide 21.4, Anion Gap 14, BUN 28 H, Creatinine 1.57 H, Estim Creat Clear Calc 37.74 L, Est GFR (MDRD) Non-Af 35 L, BUN/Creatinine Ratio 18.1, Glucose 142 H, Hemoglobin A1c 6.8 H, Calcium 8.8, Total Bilirubin 0.26, AST 73 H, ALT 24, Alkaline Phosphatase 28 L, Total Protein 6.5, Albumin 3.9, Globulin 2.6, Albumin/Globulin Ratio 1.5, Triglycerides 258 H, Cholesterol 166, LDL Cholesterol, Calc 75, VLDL Cholesterol 52 H, HDL Cholesterol 40, Cholesterol/HDL Ratio 4.18 12/06/24 06:21: POC Glucose 170 H Rhythm Strip Rhythm Strip: Sinus Rhythm Rate: 75 Cardiology Labs/Tests 12/05/24 14:27: WBC 6.9, RBC 3.50 L, Hgb 11.1 L, Hct 33.4 L, MCV 95.4, MCH 31.7, MCHC 33.2, Plt Count 169, MPV 9.9, Immature Gran % (Auto) 0.400, Neut % (Auto) 65.8, Lymph % (Auto) 24.2, [place] % (Auto) 8.5, Eos % (Auto) 0.7, Baso % (Auto) 0.4, Absolute Neuts (auto) 4.5, Nucleated RBC % 0, PT 13.6, INR 1.0, APTT 25.8, Sodium 138, Potassium 4.1, Chloride 99, Carbon Dioxide 22.5, Anion Gap 16 H, BUN 31 H, Creatinine 1.78 H, Est GFR (MDRD) Non-Af 30 L, BUN/Creatinine Ratio 17.6, Glucose 145 H, Calcium 9.3, Total Bilirubin 0.26, Direct Bilirubin 0.15 12/05/24 16:55: Magnesium 1.3 L 12/05/24 22:19: APTT 48.9 H 12/06/24 04:45: WBC 6.4, RBC 3.18 L, Hgb 10.3 L, Hct 30.5 L, MCV 95.9, MCH 32.4 H, MCHC 33.8, Plt Count 142 L, MPV 10.4, Immature Gran % (Auto) 0.300, Neut % (Auto) 65.4, Lymph % (Auto) 25.5, [place] % (Auto) 8.0, Eos % (Auto) 0.5, Baso % (Auto) 0.3, Absolute Neuts (auto) 4.2, APTT 50.6 H, Sodium 137, Potassium 4.0, Chloride 101, Carbon Dioxide 21.4, Anion Gap 14, BUN 28 H, Creatinine 1.57 H, Est GFR (MDRD) Non-Af 35 L, BUN/Creatinine Ratio 18.1, Glucose 142 H, Hemoglobin A1c 6.8 H, Calcium 8.8, Total Bilirubin 0.26, Triglycerides 258 H, Cholesterol 166, VLDL Cholesterol 52 H, HDL Cholesterol 40, Cholesterol/HDL Ratio 4.18 Rhythm: EKG: ECHO: Stress Test: Cardiac Cath: PCI: CT Surgery: Holter monitor: EPS: PPM: CXR: Chest CT Scan: Radiography Diagnostic Testing: Radiology Impression Chest X-Ray 12/05/24 14:40 IMPRESSION: Mild pulmonary vascular congestion. No focal consolidation. Reading Location: [id number] Abdomen/Pelvis CT 12/05/24 15:11 IMPRESSION: 1. No acute intra-abdominal abnormality. 2. Colonic diverticulosis, without additional findings to suggest acute diverticulitis. Reading Location: [id number]
--- NOTE | 2024-12-06 11:45 | EKG12_ITS ---
Test Reason : Blood Pressure : */* mmHG Vent. Rate : 68 BPM Atrial Rate : 68 BPM P-R Int : 150 ms QRS Dur : 86 ms QT Int : 406 ms P-R-T Axes : 45 -5 19 degrees QTcB Int : 431 ms Normal sinus rhythm Inferior infarct , age undetermined Abnormal ECG When compared with ECG of 05-Dec-2024 20:09, MANUAL COMPARISON REQUIRED DATA IS UNCONFIRMED Confirmed by Anup Womack ([id number]), non linear editor KAROL SHAY ([id number]) on 12/08/2024 11:37:22 AM Referred By: Confirmed By: Anup Womack
--- NOTE | 2024-12-06 11:45 | EKG12_ITS ---
Test Reason : Blood Pressure : */* mmHG Vent. Rate : 68 BPM Atrial Rate : 68 BPM P-R Int : 150 ms QRS Dur : 86 ms QT Int : 406 ms P-R-T Axes : 45 -5 19 degrees QTcB Int : 431 ms Normal sinus rhythm Inferior infarct , age undetermined Abnormal ECG When compared with ECG of 05-Dec-2024 20:09, MANUAL COMPARISON REQUIRED DATA IS UNCONFIRMED Confirmed by Anup Womack ([id number]), electronic news gathering editor KAROL SHAY ([id number]) on 12/08/2024 11:37:22 AM Referred By: Confirmed By: Anup Womack
[2024-12-06] MEDS: 0.9% Normal Saline (1000mL) 1,000 ML 150 ML IV (12:06)
--- NOTE | 2024-12-06 14:04 | CRPHASE1_ITS ---
Patient Communication Patient Information Former Patient:: Phase I PHII Cardiac Rehab Discussed with Patient:: Yes Guide to Cardiac Rehab Given to Patient:: Yes Cardiac Rehab Facility Choice List Given to Patient:: Yes Communication to Cardiac Rehab Choice Program [facility] CR PHII:: Communication Given to CR and Refer to [facility] Choice Program Other:: Communication Given to CR Chef Concierge:: Pennie Diaz PCP:: Moshe Buckley Refer Phase II Cardiac Rehab:: Yes Sessions:: 36 sessions - 3 days/wk, 12 weeks Post Discharge Choice Letter Given to Patient:: Yes Phase I Charge:: Level I - Education Medical/Surgical History Medical History [place]:: Yes Diabetes:: Yes Hypertension:: Yes CVA/TIA: Anxiety:: Yes Ambulation Ambulation Notes:: dizziness Cardiac Rehabilitation Info Program Information Cardiac Rehabilitation Program Information: Cardiac Rehab The cardiac rehab team at [facility] consists of highly skilled exercise physiologists, nurses, respiratory therapists and physicians working together with you. Our purpose is to help you have a full recovery and achieve the goals you set for yourself. Over the years many of our patients have returned to activities they assumed they would never do again! We can help restore your confidence and motivation to make lifestyle changes that can have a significant impact on your health and quality of life! We can help answer questions and concerns you may have about exercise, lifestyle, medications, diet, stress and anxiety which are common following a hospitalization. WE monitor ECG and vital signs during exercise and discuss your progress with you and report to your physician(s). Cardiac Rehab is proven to help reduce readmissions, improve functional capacity and lower recurrence of problems with your heart. Our Cardiac Rehab program is Certified by the [place] [employer] Cardio-Vascular and Pulmonary Rehabilitation (AACVPR) and Accredited by the [place] [employer] through our [facility]. You can contact us at . We invite you to call us with your questions or to get started in our program. If you have other questions or concerns be sure to ask your physician/provider during your follow-up visit. WE look forward to seeing you!
--- NOTE | 2024-12-06 14:04 | CRPHASE1_ITS ---
Patient Communication Patient Information Former Patient:: Phase I PHII Cardiac Rehab Discussed with Patient:: Yes Guide to Cardiac Rehab Given to Patient:: Yes Cardiac Rehab Facility Choice List Given to Patient:: Yes Communication to Cardiac Rehab Choice Program [facility] CR PHII:: Communication Given to CR and Refer to [facility] Choice Program Other:: Communication Given to CR Certified Addiction Counselor:: Pennie Diaz PCP:: Moshe Buckley Refer Phase II Cardiac Rehab:: Yes Sessions:: 36 sessions - 3 days/wk, 12 weeks Post Discharge Choice Letter Given to Patient:: Yes Phase I Charge:: Level I - Education Medical/Surgical History Medical History [place]:: Yes Diabetes:: Yes Hypertension:: Yes CVA/TIA: Anxiety:: Yes Ambulation Ambulation Notes:: dizziness Cardiac Rehabilitation Info Program Information Cardiac Rehabilitation Program Information: Cardiac Rehab The cardiac rehab team at [facility] consists of highly skilled exercise physiologists, nurses, respiratory therapists and physicians working together with you. Our purpose is to help you have a full recovery and achieve the goals you set for yourself. Over the years many of our patients have returned to activities they assumed they would never do again! We can help restore your confidence and motivation to make lifestyle changes that can have a significant impact on your health and quality of life! We can help answer questions and concerns you may have about exercise, lifestyle, medications, diet, stress and anxiety which are common following a hospitalization. WE monitor ECG and vital signs during exercise and discuss your progress with you and report to your physician(s). Cardiac Rehab is proven to help reduce readmissions, improve functional capacity and lower recurrence of problems with your heart. Our Cardiac Rehab program is Certified by the [place] [employer] Cardio-Vascular and Pulmonary Rehabilitation (AACVPR) and Accredited by the [place] [employer] through our [facility]. You can contact us at . We invite you to call us with your questions or to get started in our program. If you have other questions or concerns be sure to ask your physician/provider during your follow-up visit. WE look forward to seeing you!
--- NOTE | 2024-12-06 14:06 | CRPH1.INSTRU ---
General Education Discussed with Patient CAD and cardiac anatomy and function:: Patient communicates acknowledgment Explanation of diagnoses and procedures:: Patient communicates acknowledgment Sign/Symptoms of IN:: Patient communicates acknowledgment Antiplatelet therapy: Patient communicates acknowledgment and Needs reinforcement Proper use of NTG-SL: Patient communicates acknowledgment Emergency procedures and activation of EMS: Patient communicates acknowledgment Compliance of all prescribed medications: Patient communicates acknowledgment and Needs reinforcement Smoking Risk Factors Patient Nicotine/Smoking Risk Factors Are:: Never smoked Response Code Nicotine/Smoking Response Code:: Patient communicates acknowledgment Dyslipidemia Recommendations Recommendations Include:: Lipid profile not available Overweight/Obesity Risk Factors Patient Overweight/Obesity Risk Factors Are:: Obesity - > or = 30 (36.8) Recommendations Recommendations Include:: Weight loss of 5-10%, Reduced calorie diet and Exercise 5-7 times/week Response Code Overweight/Obesity:: Patient communicates acknowledgment Hypertension Recommendations Recommendations Include:: Maintain BP <130/85, BP <130/80 if diabetic and Decrease/maintain normal body weight Response Code Hypertension:: Patient communicates acknowledgment Heart Disease Risk Factors Patient Heart Disease Risk Factors Are:: Previous cardiac event Response Code Heart Disease Response Code:: Patient communicates acknowledgment Diabetes Risk Factors Patient Diabetes Risk Factors Are:: Elevated blood sugars Recommendations Recommendations Include:: Maintain fasting blood sugars 70-110 md/dL, Maintain HgbA1c of 6% or less, Monitor blood sugar as prescribed, Diabetic dietary guidelines and Decrease/maintain body weight Response Code Diabetes:: Patient communicates acknowledgment Metabolic Syndrome Risk Factors Patient Metabolic Syndrome Risk Factors Are [3 of 5]:: Hypertension Recommendations Recommendations Include:: Reinforce compliance to risk factor modifications, Patient is diabetic and Encouraged follow-up with Primary Care Physician Response Code Metabolic Syndrome Response Code:: Patient communicates acknowledgment Sedentary Risk Factors Patient Sedentary Risk Factors Are:: Lack of regular exercise Recommendations Recommendations Include:: Aerobic exercise 5-7 times/week for 20-30 minutes continuously, Benefits of regular exercise, Discussed home walking program and Monitored Outpatient Cardiac Rehab Response Code Sedentary Response Code:: Patient communicates acknowledgment Stress Risk Factors Patient Stress Risk Factors Are:: Patient denies stress as a risk factor Recommendations Recommendations Include:: Identification of stressors, and assessment of coping skills and Stress management techniques Response Code Stress Response Code:: Patient communicates acknowledgment
--- NOTE | 2024-12-06 14:45 | CASEMGMT ---
RN CM Face to Face with patient for initial transition planning/care coordination assessment. RN CM introduced self and role at [facility]. Patient lying in bed, alert and oriented. Patient willing to participate in assessment and is able to answer all questions appropriately. Care providers, pharmacy, and demographics verified. Strata: 2 PCP: Ina Specialists: val Morton Preferred Pharmacy: [facility] Insurance: [facility] Prescription Benefit: yes Living Will/HPOA: yes, believes it is her sisters LNOK: son, DIL Living Arrangements: Patient lives alone in a first floor apartment with 2 steps and railing. Patient states she is independent at home. Transportation: self, family DME/HHC: Patient has raised toilet, grab bars, and walker at home. No previous HHC or SNF. Patient wishes to discharge home, denies need for home health at this time. Patient states he has no further needs or concerns at this time. CM to follow for discharge planning needs that may arise. Disposition Plan: Patient to discharge home with family support and follow-up plans in place. Michelle CLIFFORD, RN, CM
--- NOTE | 2024-12-06 14:45 | CASEMGMT ---
RN CM Face to Face with patient for initial transition planning/care coordination assessment. RN CM introduced self and role at [facility]. Patient lying in bed, alert and oriented. Patient willing to participate in assessment and is able to answer all questions appropriately. Care providers, pharmacy, and demographics verified. Strata: 2 PCP: Ina Specialists: val Morton Preferred Pharmacy: [facility] Insurance: [facility] Prescription Benefit: yes Living Will/HPOA: yes, believes it is her sisters LNOK: son, DIL Living Arrangements: Patient lives alone in a first floor apartment with 2 steps and railing. Patient states she is independent at home. Transportation: self, family DME/HHC: Patient has raised toilet, grab bars, and walker at home. No previous HHC or SNF. Patient wishes to discharge home, denies need for home health at this time. Patient states he has no further needs or concerns at this time. CM to follow for discharge planning needs that may arise. Disposition Plan: Patient to discharge home with family support and follow-up plans in place. Michelle CLIFFORD, RN, CM
[2024-12-07 01:17] VITALS: BP 103/55; PULSE 78; RESP 18; TEMP 36.2; O2SAT 97
[2024-12-07 04:46] VITALS: BMI 36.6
[2024-12-07 06:00] VITALS: BP 110/56; PULSE 80; RESP 161; TEMP 36.1; O2SAT 98
[2024-12-07 06:11] LABS: Hematocrit 31.7 % (37-47); Hemoglobin 10.6 g/dL (12.0-15.0); Mean Corp Hgb Conc 33.4 g/dL (32-36); Mean Corpuscular Volume 95.8 fL (81-99); Mean Platelet Vol. 9.8 fl (6.2-12.0); Platelet Count 136 K/mm3 (150-450); RBC Distribution Width CV 13.6 % (11.6-14.6); RBC Distribution Width SD 48.0 fl (35.1-43.9); Red Blood Count 3.31 M/mm3 (4.2-5.4); White Blood Count 6.1 K/mm3 (4.4-11.0)
[2024-12-07 06:35] LABS: AST(SGOT) 66 U/L (<=31); Alanine Aminotransfer ALT/SGPT 23 U/L (<=34); Albumin, Serum 4.0 g/dL (3.4-4.8); Alkaline Phosphatase 30 U/L (35-104); Anion Gap 11 (5-15); BUN 19 mg/dL (4-19); BUN/Creat Ratio 13.6 RATIO (10-20); Calcium,Total 8.8 mg/dL (7.6-11.0); Carbon Dioxide 24.2 mmol/L (21.0-32.0); Chloride 101 mmol/L (98-108); Estimated Creatinine Clearance 41.37 ml/min (50-250); Globulin 2.8 g/dL (2.2-4.2); Glucose 140 mg/dL (70-99); Potassium 4.4 mmol/L (3.3-5.1)
[2024-12-07 06:53] VITALS: O2SAT 95
--- NOTE | 2024-12-07 07:46 | PCM.PN.CARD ---
Subjective Subjective Patient underwent successful PCI of the third toe including right coronary artery on 12/06/2024. Patient denies any recurrence of any anginal symptoms. She does complain of some tenderness over the right radial insertion site and at site of right antecubital IV insertion site. She denies any loss in sensation in her fingers of the right hand and is able to use her hand without any restrictions. Objective Data Vital Signs: Vital Signs Temp Pulse Resp BP Pulse Ox O2 Del Method O2 Flow Rate 97.2 F L 78 18 103/55 L 97 Room Air 2 12/07/24 01:17 12/07/24 01:17 12/07/24 01:17 12/07/24 01:17 12/07/24 01:17 12/07/24 01:36 12/06/24 12:49 Oxygen Flow Rate (L/min) 2 Oxygen Delivery Method Room Air Weight: 213 lb 10.047 oz Body Mass Index (BMI) 36.6 Intake & Output: Intake and Output for Last 24 Hours 12/05/24 12/06/24 12/07/24 23:59 23:59 23:59 Intake Total 1562 / 1562 3236.50 / 3236.50 Balance 1562 / 1562 3236.50 / 3236.50 Lab / Micro Data Attestation: I reviewed the patient's lab results. 12/07/24 05:57 12/07/24 05:57 Labs: Laboratory Results - last 24 hr 12/06/24 06:21: POC Glucose 170 H 12/06/24 12:28: POC Glucose 120 H 12/06/24 17:59: POC Glucose 170 H 12/06/24 21:16: POC Glucose 147 H 12/07/24 05:57: WBC 6.1, RBC 3.31 L, Hgb 10.6 L, Hct 31.7 L, MCV 95.8, MCH 32.0, MCHC 33.4, RDW Std Deviation 48.0 H, RDW Coeff of Christina 13.6, Plt Count 136 L, MPV 9.8, Sodium 136, Potassium 4.4, Chloride 101, Carbon Dioxide 24.2, Anion Gap 11, BUN 19, Creatinine 1.43 H, Estim Creat Clear Calc 41.37 L, Est GFR (MDRD) Non-Af 39 L, BUN/Creatinine Ratio 13.6, Glucose 140 H, Calcium 8.8, Total Bilirubin 0.39, AST 66 H, ALT 23, Alkaline Phosphatase 30 L, Total Protein 6.8, Albumin 4.0, Globulin 2.8, Albumin/Globulin Ratio 1.4 12/07/24 06:31: POC Glucose 143 H Rhythm Strip Rhythm Strip: Sinus Rhythm Rate: 60 Cardiology Labs/Tests 12/07/24 05:57: WBC 6.1, RBC 3.31 L, Hgb 10.6 L, Hct 31.7 L, MCV 95.8, MCH 32.0, MCHC 33.4, Plt Count 136 L, MPV 9.8, Sodium 136, Potassium 4.4, Chloride 101, Carbon Dioxide 24.2, Anion Gap 11, BUN 19, Creatinine 1.43 H, Est GFR (MDRD) Non-Af 39 L, BUN/Creatinine Ratio 13.6, Glucose 140 H, Calcium 8.8, Total Bilirubin 0.39 Rhythm: EKG: ECHO: Stress Test: Cardiac Cath: PCI: CT Surgery: Holter monitor: EPS: PPM: CXR: Chest CT Scan: Radiography Diagnostic Testing: Radiology Impression Echocardiogram 12/05/24 19:30 Interpretation Summary Normal LV size. Left ventricular systolic function is normal. Stage 1 diastolic dysfunction. The estimated ejection fraction is 54 %. Pulmonary artery systolic pressure is 25 mmHg. Ordering Physician: Calista Weeks Performed By: Patience Valenzuela, SOBIA Physical Exam Const alert and oriented x3 HEENT normocephalic Neck no JVD Chest inspection of chest normal Resp normal respiratory effort Cardio Rate: regular rate Rhythm: regular rhythm Peripheral Pulses: radial pulses present right (Noted ecchymotic area with normal tactile sensation of the fingers and normal capillary refill.) 1+ Extremity no pedal edema Neuro Neuro Narrative: Alert and oriented x 3 Psych mental status grossly normal Assessment & Plan Assessment/Plan (1) Non-ST elevation AR (NSTEMI): PLAN: Patient tolerated stenting of the right coronary without incident. She does not tenderness and ecchymosis at the right radial insertion site. There is good distal blood flow and the capillary refill is normal she has normal sensation in her fingers and thumb. The patient will remain on dual antiplatelet therapy aspirin 81 mg daily and clopidogrel 75 mg daily. This should be uninterrupted for any reason for 6 months and preferably 1 year. I went over this in detail with the patient. The patient should be followed up in 7 to 10 days in the [facility] [place] [facility] office with her advanced practitioner to reevaluate compliance with her medical regiment and her insertion site. Patient does have mild renal insufficiency and creatinine has improved to 1.43 after her cath her hemoglobin is actually increased slightly with her chronic anemia up to 10.6. The patient does have a history of hemochromatosis. Patient's LFTs were minimally elevated as well AST was 66. Will reevaluate this in 7 to 10 days as well as she is on atorvastatin 20 mg daily which is a new medication for her. And she does have a history of hemochromatosis. Will reevaluate renal function and CBC at her office visit in 7 to 10 days. (2) Hypertension: QUALIFIERS: Hypertension type: primary hypertension Qualified Code(s): I10 - Essential (primary) hypertension PLAN: Blood pressure is well-controlled on her current medical therapy. Patient should be continued on her current meds. (3) Anemia: QUALIFIERS: Anemia type: unspecified type Qualified Code(s): D64.9 - Anemia, unspecified PLAN: Hemoglobin is actually increased to 10.6. This will be reevaluated in 7 to 10 days. (4) CKD (chronic kidney disease): QUALIFIERS: Chronic kidney disease stage: stage 3 (moderate) Chronic kidney disease stage 3 subtype: stage 3b (GFR 30-44) Qualified Code(s): N18.32 - Chronic kidney disease, stage 3b PLAN: Patient's creatinine is 1.43 BUN 19 this gives a calculated GFR of 39. This is actually improved since her admission and catheterization. Will reevaluate basic metabolic panel in 7 to 10 days. PLAN: Plan 1. From cardiovascular standpoint the patient can be discharged to home. 2. Will reevaluate CBC and complete metabolic panel in 7 to 10 days. 3. Patient be reevaluated at [facility] office 5 advanced practitioner in 7 to [address] Womack in 4 to 6 weeks. Charges/Coding Visit Charges Inpatient E&M: 40656 Subs Hosp L2
[2024-12-07 08:29] VITALS: BP 126/72; PULSE 88; RESP 16; TEMP 36.9; O2SAT 95
[2024-12-07] MEDS: Aspirin E.C. 81 MG Tablet PO (08:32)
--- NOTE | 2024-12-07 08:41 | PN.HOSP_ITS ---
Reason for Visit Chief Complaint: Chest pain Subjective Subjective Feeling not her self. Denies chest pain, shortness of breath. Objective Data Objective Data Vital Signs: Vital Signs Temp Pulse Resp BP Pulse Ox O2 Del Method O2 Flow Rate 36.9 C 88 16 126/72 H 95 Room Air 2 12/07/24 08:29 12/07/24 08:29 12/07/24 08:29 12/07/24 08:29 12/07/24 08:29 12/07/24 08:29 12/06/24 12:49 Oxygen Flow Rate (L/min) 2 Oxygen Delivery Method Room Air Weight: 96.9 kg Body Mass Index (BMI) 36.6 Intake & Output: Intake and Output for Last 24 Hours 12/05/24 12/06/24 12/07/24 23:59 23:59 23:59 Intake Total 1562 / 1562 3236.50 / 3736.50 750 / 750 Balance 1562 / 1562 3236.50 / 3736.50 750 / 750 Lab / Micro Data 12/07/24 05:57 12/07/24 05:57 Labs: Laboratory Results - last 24 hr 12/06/24 12:28: POC Glucose 120 H 12/06/24 17:59: POC Glucose 170 H 12/06/24 21:16: POC Glucose 147 H 12/07/24 05:57: WBC 6.1, RBC 3.31 L, Hgb 10.6 L, Hct 31.7 L, MCV 95.8, MCH 32.0, MCHC 33.4, RDW Std Deviation 48.0 H, RDW Coeff of Christina 13.6, Plt Count 136 L, MPV 9.8, Sodium 136, Potassium 4.4, Chloride 101, Carbon Dioxide 24.2, Anion Gap 11, BUN 19, Creatinine 1.43 H, Estim Creat Clear Calc 41.37 L, Est GFR (MDRD) Non-Af 39 L, BUN/Creatinine Ratio 13.6, Glucose 140 H, Calcium 8.8, Total Bilirubin 0.39, AST 66 H, ALT 23, Alkaline Phosphatase 30 L, Total Protein 6.8, Albumin 4.0, Globulin 2.8, Albumin/Globulin Ratio 1.4 12/07/24 06:31: POC Glucose 143 H Radiography Diagnostic Testing: Radiology Impression Echocardiogram 12/05/24 19:30 Interpretation Summary Normal LV size. Left ventricular systolic function is normal. Stage 1 diastolic dysfunction. The estimated ejection fraction is 54 %. Pulmonary artery systolic pressure is 25 mmHg. Ordering Physician: Calista Weeks Performed By: Patience Valenzuela RDCS Rhythm Strip Rhythm Strip: Sinus Rhythm Rate: 60 Physical Exam Const alert and no apparent distress Cardio regular rate, regular rhythm, S1 normal heart sound and S2 normal heart sound GI normal to inspection, nondistended, normoactive bowel sounds, soft to palpation and non-tender Neuro Sensorium / Orientation: awake and alert Assessment & Plan Assessment/Plan (1) Non-ST elevation UT (NSTEMI): PLAN: Plan Acute NSTEMI: * troponins up to 806. * Cardiology consult. Check echo * s/p RONALD to mid RCA. Will need staged PCI for OM. Chronic Kidney Disease Stage III: LAURA ruled out. Chronic normocytic anemia: Admission hemoglobin 11.1, MCV 95.4 however significantly dehydrated, baseline hemoglobin noted previously primarily more recently 8-9 but labs distant and last noted 03/30/2024 hemoglobin 9.6 at that time, will continue to trend. Hypertension: Given presentation with orthostasis, acute kidney injury and low blood pressure holding all hypertensive regimen, add back once clinically appropriate. Hyperlipidemia: Continue home statin and fenofibrate regimen. AM FLP. Diabetes mellitus type II: Hold oral home regimen, ADA diet until n.p.o. status, HgbA1c requested given #1 presentation, accu checks w/ ISS. Obesity: Weight loss and lifestyle changes encouraged. Former tobacco use: Encourage continued tobacco cessation. GERD: Will maintain on PPI. Hypothyroidism: Will continue patient on levothyroxine regimen. DVT prophylaxis: Heparin drip to be continued.
--- NOTE | 2024-12-07 10:00 | EKG12_ITS ---
Test Reason : AM EKG Blood Pressure : */* mmHG Vent. Rate : 81 BPM Atrial Rate : 81 BPM P-R Int : 148 ms QRS Dur : 88 ms QT Int : 378 ms P-R-T Axes : 53 -19 -11 degrees QTcB Int : 439 ms Normal sinus rhythm Low voltage QRS Borderline ECG When compared with ECG of 06-Dec-2024 12:08, MANUAL COMPARISON REQUIRED DATA IS UNCONFIRMED Confirmed by Anup Womack ([id number]), editor in chief KAROL SHAY ([id number]) on 12/08/2024 11:36:42 AM Referred By: ROSALIO Confirmed By: Anup Womack
--- NOTE | 2024-12-07 10:00 | EKG12_ITS ---
Test Reason : AM EKG Blood Pressure : */* mmHG Vent. Rate : 81 BPM Atrial Rate : 81 BPM P-R Int : 148 ms QRS Dur : 88 ms QT Int : 378 ms P-R-T Axes : 53 -19 -11 degrees QTcB Int : 439 ms Normal sinus rhythm Low voltage QRS Borderline ECG When compared with ECG of 06-Dec-2024 12:08, MANUAL COMPARISON REQUIRED DATA IS UNCONFIRMED Confirmed by Anup Womack ([id number]), art editor KAROL SHAY ([id number]) on 12/08/2024 11:36:42 AM Referred By: ROSALIO Confirmed By: Anup Womack
--- NOTE | 2024-12-07 11:07 | DS.PCM_ITS ---
Providers Date of Admission: 12/05/24 Primary Care Physician: Dr. Moshe Buckley MD Consultations 12/05/24 19:30 Consult: Cardiology Routine Consulting Provider: Kan Bernabe Reason for Consult: Chest Pain, NSTEMI EMERGENT Consult: No MD Notified: Yes Date Notified: 12/05/24 Time Notified: 16:57 Method of Notification: ED Physician Initiated Reason For Visit: CHEST PAIN, NSTEMI Diagnosis Discharge Diagnosis (1) Non-ST elevation IA (NSTEMI): Status: Acute Code(s): I21.4 - Non-ST elevation (NSTEMI) myocardial infarction Plan Acute NSTEMI: * troponins up to 806. * Cardiology consult. Check echo * s/p RONALD to mid RCA. Will need staged PCI for OM. Chronic Kidney Disease Stage III: LAURA ruled out. Chronic normocytic anemia: Admission hemoglobin 11.1, MCV 95.4 however significantly dehydrated, baseline hemoglobin noted previously primarily more recently - but labs distant and last noted 03/30/2024 hemoglobin 9.6 at that time, will continue to trend. Hypertension: Given presentation with orthostasis, acute kidney injury and low blood pressure holding all hypertensive regimen, add back once clinically appropriate. Hyperlipidemia: Continue home statin and fenofibrate regimen. AM FLP. Diabetes mellitus type II: Hold oral home regimen, ADA diet until n.p.o. status, HgbA1c requested given #1 presentation, accu checks w/ ISS. Obesity: Weight loss and lifestyle changes encouraged. Former tobacco use: Encourage continued tobacco cessation. GERD: Will maintain on PPI. Hypothyroidism: Will continue patient on levothyroxine regimen. DVT prophylaxis: Heparin drip to be continued. Medications at Discharge Home Medications levothyroxine 75 mcg capsule 150 mcg PO DAILY 01/16/24 metformin 1,000 mg tablet 1,000 mg PO .QAM 01/16/24 Held on 12/07/24. Instructions: Resume on 12/12/24. omega 6-urf-lod-fish oil 1,200 mg (144 mg-216 mg) capsule (Fish Oil) 1 cap PO DAILY 01/16/24 omeprazole 40 mg capsule,delayed release 40 mg PO QDAY 01/16/24 vitamin E (dl, acetate) 180 mg (400 unit) capsule 180 mg PO DAILY 01/16/24 digestive enzymes 1 tab PO TID 03/15/24 ergocalciferol (vitamin D2) 1,250 mcg (50,000 unit) capsule (Vitamin D2) 1,250 mcg PO QWEEK 03/15/24 metformin 500 mg tablet 500 mg PO .1500, 2100 03/15/24 Held on 12/07/24. Instructions: Resume on 12/12/24. vit A 750 mcg-vit C 150 mg-D3 31.25 wsx-lhjf-msyiuocqd-quercet capsule (Immune Essentials Daily) 1 cap PO TID 03/15/24 acetaminophen 500 mg tablet 500 mg PO Q6H #30 tabs 03/30/24 fenofibrate 160 mg tablet 160 mg PO QDAY 07/02/24 aspirin 81 mg tablet,delayed release 81 mg PO BREAKFAST #0 tabs 12/07/24 atorvastatin 20 mg tablet 20 mg PO QHS #30 tabs 12/07/24 carvedilol 3.125 mg tablet 3.125 mg PO BID #60 tabs 12/07/24 clopidogrel 75 mg tablet 75 mg PO DAILY #30 tabs 12/07/24 Hospital Course Operations None Procedures 2-D Echocardiogram and Cardiac catheterization Summary of Care Provided Minutes Spent on Discharge: 32 Hospital Course: Patient presents with chest pain. Troponins went up to 8 of 6. Patient underwent left heart catheterization on the that patient had a drug-eluting stent to the mid RCA. Patient also noted to have a lesion in obtuse marginal. Patient is overall feeling well and will be discharged home. She can follow-up with cardiology as outpatient. Weight / BMI Weight Weight: 96.9 kg Body Mass Index (BMI) 36.6 ABG / Lab / Microbiology Data 12/07/24 05:57 12/07/24 05:57 Laboratory: Laboratory Results - last 24 hr 12/06/24 12:28: POC Glucose 120 H 12/06/24 17:59: POC Glucose 170 H 12/06/24 21:16: POC Glucose 147 H 12/07/24 05:57: WBC 6.1, RBC 3.31 L, Hgb 10.6 L, Hct 31.7 L, MCV 95.8, MCH 32.0, MCHC 33.4, RDW Std Deviation 48.0 H, RDW Coeff of Christina 13.6, Plt Count 136 L, MPV 9.8, Sodium 136, Potassium 4.4, Chloride 101, Carbon Dioxide 24.2, Anion Gap 11, BUN 19, Creatinine 1.43 H, Estim Creat Clear Calc 41.37 L, Est GFR (MDRD) Non-Af 39 L, BUN/Creatinine Ratio 13.6, Glucose 140 H, Calcium 8.8, Total Bilirubin 0.39, AST 66 H, ALT 23, Alkaline Phosphatase 30 L, Total Protein 6.8, Albumin 4.0, Globulin 2.8, Albumin/Globulin Ratio 1.4 12/07/24 06:31: POC Glucose 143 H Radiography Diagnostic Testing: Radiology Impression Echocardiogram 12/05/24 19:30 Interpretation Summary Normal LV size. Left ventricular systolic function is normal. Stage 1 diastolic dysfunction. The estimated ejection fraction is 54 %. Pulmonary artery systolic pressure is 25 mmHg. Ordering Physician: Calista Weeks Performed By: Patience Valenzuela RDCS D/C Instructions Discharge Activity: Return to Normal Activity DC O2, CPAP, BIPAP Needs Home O2 Discharge instructions: No Meaningful Use Info Meaningful Use Meaningful Use Diagnoses (Choose all that apply): AMI AMI/Post PCI/Angioplasty Aspirin given w/in 24hrs of arrival?: Yes ASA at discharge?: Yes Antiplatelet Therapy at Discharge:: Yes Statins at discharge?: Yes Drake/ARB at discharge?: No Reason Drake/ARB not ordered:: Worsening renal disease Beta Jimmy at discharge?: Yes Done w/ Acute IA measure.: Yes Documented LVEF (%): 54 Discharge Plan Admission Admit Date/Time: 12/05/24 16:55 Primary Reason for Your Visit: myocardial infarction. Attending Provider: Basim Cheema Primary Care Provider: Moshe Buckley Consulting Providers: Kan Bernabe; Calista Weeks Discharge Orders/Prescriptions Prescriptions: New aspirin 81 mg Tablet,Delayed Release (Dr/Ec) 81 mg PO BREAKFAST Qty: 0 0RF atorvastatin 20 mg Tablet 20 mg PO QHS Qty: 30 0RF clopidogrel 75 mg Tablet 75 mg PO DAILY Qty: 30 0RF carvedilol 3.125 mg Tablet 3.125 mg PO BID Qty: 60 0RF Continued levothyroxine 75 mcg capsule 150 mcg PO DAILY omeprazole 40 mg capsule,delayed release(DR/EC) 40 mg PO QDAY vitamin E (dl, acetate) 180 mg (400 unit) capsule 180 mg PO DAILY omega 1-yqh-fhm-fish oil [Fish Oil] 1,200 (144-216) mg capsule 1 cap PO DAILY fenofibrate 160 mg tablet 160 mg PO QDAY digestive enzymes Tablet 1 tab PO TID Immune Essentials Daily 750 mcg-150 mg- 31.25 mcg capsule 1 cap PO TID ergocalciferol (vitamin D2) [Vitamin D2] 1,250 mcg (50,000 unit) capsule 1,250 mcg PO QWEEK acetaminophen 500 mg Tablet 500 mg PO Q6H Qty: 30 0RF Held metformin 1,000 mg tablet 1,000 mg PO .QAM Hold Instructions: Resume on 12/12/24. metformin 500 mg tablet 500 mg PO .1500, 2100 Hold Instructions: Resume on 12/12/24. Discontinued irbesartan 300 mg tablet 300 mg PO DAILY chlorthalidone 25 mg tablet 25 mg PO DAILY furosemide 20 mg tablet 20 mg PO DAILY rosuvastatin 10 mg tablet 10 mg PO QHS Referrals / Follow Up: [facility] [Provider Group] - Within 1 Month Moshe Buckley MD [Primary Care Provider] - Nuha Shaw NP-C [Non-Staff] - Within 2 Weeks Disposition Disposition (needs filled in before D/C Order can be placed): Home, Self Care Charges/Coding Visit Charges Inpatient E&M: 77805 Disch Hosp >30min
--- NOTE | 2024-12-07 11:50 | CASEMGMT ---
Patient has order for discharge. RN CM in to discuss needs at discharge. Patient denies needs or help at discharge. Patient had no further questions or concerns.
[2024-12-07 12:04] VITALS: BP 119/69; PULSE 86; RESP 16; TEMP 36.2; O2SAT 96
[2024-12-07 15:34] LABS: ACT Activated Clotting Time 227 sec (74-137)
--- NOTE | 2025-01-03 09:46 | CL.I_ITS ---
Patient Name: MANJULA ROWLAND Study Date: 12/06/2024 Performing: Pennie Diaz MD Ht: 64 inches 162.56 cm : 1955 Wt: 214.29 lbs 97.2 kg Age: 69 Gender: female BSA: 2.01 PROCEDURE(S) PERFORMED IC12-(65384/C9600)RONALD W/WO PTCA, SINGLE CORONARY ARTERY CLINICAL PROFILE AND CO-MORBIDITIES Indications: Suspected CAD Heart Failure: None Stress/Imaging Stress/Image Study Performed: No CAD Presentations: Non-STEMI. Symptom onset Date/Time: 12/05/24 Time Not Available CONCLUSIONS Successful PTCA/RONALD Mid RCA using Amorita [place] 2.5x22 mm,. post-dilated using 2.75 mm balloon RECOMMENDATIONS ASA Indefinitley P2Y12 inhibitors for atleast 6 months If symptomatc despite maximal medical therapy, then consider PCI to OM DESCRIPTION OF PROCEDURE The patient arrived to the procedure lab. The risks and benefits of the procedure as well as a full description of our services here and current unavailability of surgical backup were fully explained to the patient and/or their significant other prior to the catheterization. The Timeout was completed, verifying the correct patient and procedure. The patient's procedural site was prepped and draped in the usual fashion. Local anesthetic was given subcutaneously to right radial region with Lidocaine 2% Using a modified Seldinger technique,arterial access was obtained via the right radial artery, a 6Fr sheath was inserted. Left Coronary Artery selective angiography was performed in multiple views using a 5 Fr. 4.0 [place] catheter. Right Coronary Artery selective angiography was then performed in multiple views using a 5 Fr. 4.0 [place] catheter. Left Ventriculography was performed in NELSON projection using a 5 Fr. Pigtail catheter.The images were reviewed and options discussed. A decision was then made to proceed with an Intervention, IVUS or other adjunct procedure. AL 0.75 Guide catheter was inserted and engaged into the LCA. 3DRC Guide catheter was inserted and engaged into the RCA. Runthrough Guide wire was advanced to the RCA. Emerge 2.00x15 Balloon catheter was inserted. PTCA balloon inflated at 6 atms for 9 secs. PTCA balloon inflated at 6 atms for 9 secs. Angiogram performed post balloon dilatation. [place] Amorita 2.5x22 Drug Eluting stent was inserted. Angiogram performed post stent deployment. NC Emerge 2.75x12 Balloon catheter was inserted. Angiogram performed post balloon dilatation. The arterial sheath was pulled and a TR Band was applied for hemostasis w/15ml air INTERVENTION INFORMATION LESION SITE: RCA (Mid) Lesion Complexity: High/C, lesion length: 20 mm, thrombus present: Yes Pre intervention MANAN flow: 0 PROCEDURE: Drug Eluting Stent with pre and post dilatation Post Stenosis: 100 % Post intervention MANAN flow: 3 Lesion Devices: Terumo .014 180cm Runthrough Extra Floppy straight Cordis 6 Fr 3DRC 100cm Guide Catheter Jett Sci EMERGE MR 2.00x15 BALLOON Medtronic 2.50 x 22 BAUTISTA FRONTIER RONALD Jett Sci NC EMERGE MR 2.75x12 BALLOON COMPLICATIONS No Complications PROCEDURE MEDICATIONS Versed 1 mg IV Fentanyl 50 mcg IV Versed 1 mg IV Versed 1 mg IV Fentanyl 25 mcg IV Fentanyl 25 mcg IV Oxygen: 2 L/min via nasal cannula Brilinta 180 mg PO 12/06/2024 10:58:26 Adenosine 48 mcg IC 12/06/2024 11:21:02 Adenosine 48 mcg IC @ 12/06/2024 11:26:21 Heparin given IA 12/06/2024 10:27:31 Heparin 7000 unit(s) IV 12/06/2024 10:55:49 Nitro 100 mcg IC 12/06/2024 11:10:08 Nitro 100 mcg IC 12/06/2024 11:10:08 Nitro 100 mcg IC 12/06/2024 11:14:58 Verapamil 2.5mg, Ntg 100mcgs, 3000 units of Heparin given IA 12/06/2024 10:27:31 IV Bolus: .9 NaCl 500 ml total 12/06/2024 10:33:21 SUMMARY OF HEMODYNAMIC DATA Time AIR REST ECG 10:00:32 AO 80/50 (62) SA 10:37:57 AO 90/64 (77) 10:41:50 LV 99/11, 18 10:44:15 LV 100/14, 19 10:44:23 LV 101/15, 24 10:45:05 LV 100/15, 20 10:45:14 LVp 100/15, 22 10:45:22 AOp 100/54 (74) 10:45:29 AIR REST 10:58:43 AIR REST AO 88/60 (78) 11:00:57 AO 107/68 (84) 11:04:09 AO 70/47 (54) 11:26:46 AO 88/64 (75) 11:27:00 AO 108/74 (89) 11:28:38 Signed By Pennie Diaz MD On 12/06/2024 11:41:28 Pennie Diaz MD
--- NOTE | 2025-01-03 09:46 | CL.D_ITS ---
Patient Name: MANJULA ROWLAND Study Date: 12/06/2024 Performing: Cheo Mckenzie MD Ht: 64 inches 162.56 cm : 1955 Wt: 214.29 lbs 97.2 kg Age: 69 Gender: female BSA: 2.01 PROCEDURE(S) PERFORMED DC01-(16962)LHC/COR/LV CLINICAL PROFILE AND INDICATIONS Indications: Suspected CAD Heart Failure: None Stress/Imaging Stress/Image Study Performed: No CAD Presentations: Non-STEMI. Symptom onset Date/Time: 12/05/24 Time Not Available CONCLUSIONS Coronary artery disease involving a totally occluded right coronary artery and high-grade stenosis of the obtuse marginal branch. Left ventricular dysfunction involving a severely hypokinetic basal inferior wall. RECOMMENDATIONS Consider PCI to the right coronary artery DESCRIPTION OF PROCEDURE The patient arrived to the procedure lab. The risks and benefits of the procedure as well as a full description of our services here and current unavailability of surgical backup were fully explained to the patient and/or their significant other prior to the catheterization. The Timeout was completed, verifying the correct patient and procedure. The patient's procedural site was prepped and draped in the usual fashion. Local anesthetic was given subcutaneously to right radial region with Lidocaine 2%. Using a modified Seldinger technique, arterial access was obtained via the right radial artery, a 6Fr sheath was inserted. Left Coronary Artery selective angiography was performed in multiple views using a 5 Fr. 4.0 [place] catheter. Right Coronary Artery selective angiography was then performed in multiple views using a 5 Fr. 4.0 [place] catheter. Left Ventriculography was performed in NELSON projection using a 5 Fr. Pigtail catheter. CORONARY ANGIOGRAPHY DOMINANCE: Right Dominant LEFT HEART ASSESSMENT Left Ventricular Ejection Fraction: by LV Gram 50 % Inferior Basal Hypokinesis - Severe Depressed Left Ventricular systolic function LEFT MAIN: Angiographically normal, Mild calcification LEFT ANTERIOR DESCENDING ARTERY: Mild luminal irregularities less than 30% CIRCUMFLEX ARTERY: Medium size vessel with a first obtuse marginal branch which bifurcates the inferior branch of the bifurcation has about 80% stenosis and there is a small AV groove branch noted. The superior branch has mild disease only. RIGHT CORONARY ARTERY: MID RCA: is occluded COMPLICATIONS PROCEDURE MEDICATIONS Versed 1 mg IV Fentanyl 50 mcg IV Versed 1 mg IV Versed 1 mg IV Oxygen: 2 L/min via nasal cannula Heparin given IA 12/06/2024 10:27:31 Heparin 7000 unit(s) IV 12/06/2024 10:55:49 Verapamil 2.5mg, Ntg 100mcgs, 3000 units of Heparin given IA 12/06/2024 10:27:31 IV Bolus: .9 NaCl ml total 12/06/2024 10:33:21 SUMMARY OF HEMODYNAMIC DATA Time AIR REST ECG 10:00:32 AO 80/50 (62) SA 10:37:57 AO 90/64 (77) 10:41:50 LV 99/11, 18 10:44:15 LV 100/14, 19 10:44:23 LV 101/15, 24 10:45:05 LV 100/15, 20 10:45:14 LVp 100/15, 22 10:45:22 AOp 100/54 (74) 10:45:29 Signed By Cheo Mckenzie MD On 12/06/2024 10:58:35 Cheo Mckenzie MD
--- NOTE | 2025-01-03 09:46 | CL.I_ITS ---
Patient Name: MANJULA ROWLAND Study Date: 12/06/2024 Performing: Pennie Diaz MD Ht: 64 inches 162.56 cm : 1955 Wt: 214.29 lbs 97.2 kg Age: 69 Gender: female BSA: 2.01 PROCEDURE(S) PERFORMED IC12-(28756/C9600)RONALD W/WO PTCA, SINGLE CORONARY ARTERY CLINICAL PROFILE AND CO-MORBIDITIES Indications: Suspected CAD Heart Failure: None Stress/Imaging Stress/Image Study Performed: No CAD Presentations: Non-STEMI. Symptom onset Date/Time: 12/05/24 Time Not Available CONCLUSIONS Successful PTCA/RONALD Mid RCA using [place] Brandt 2.5x22 mm,. post-dilated using 2.75 mm balloon RECOMMENDATIONS ASA Indefinitley P2Y12 inhibitors for atleast 6 months If symptomatc despite maximal medical therapy, then consider PCI to OM DESCRIPTION OF PROCEDURE The patient arrived to the procedure lab. The risks and benefits of the procedure as well as a full description of our services here and current unavailability of surgical backup were fully explained to the patient and/or their significant other prior to the catheterization. The Timeout was completed, verifying the correct patient and procedure. The patient's procedural site was prepped and draped in the usual fashion. Local anesthetic was given subcutaneously to right radial region with Lidocaine 2% Using a modified Seldinger technique,arterial access was obtained via the right radial artery, a 6Fr sheath was inserted. Left Coronary Artery selective angiography was performed in multiple views using a 5 Fr. 4.0 [place] catheter. Right Coronary Artery selective angiography was then performed in multiple views using a 5 Fr. 4.0 Raymond catheter. Left Ventriculography was performed in NELSON projection using a 5 Fr. Pigtail catheter.The images were reviewed and options discussed. A decision was then made to proceed with an Intervention, IVUS or other adjunct procedure. AL 0.75 Guide catheter was inserted and engaged into the LCA. 3DRC Guide catheter was inserted and engaged into the RCA. Runthrough Guide wire was advanced to the RCA. Emerge 2.00x15 Balloon catheter was inserted. PTCA balloon inflated at 6 atms for 9 secs. PTCA balloon inflated at 6 atms for 9 secs. Angiogram performed post balloon dilatation. Brandt [place] 2.5x22 Drug Eluting stent was inserted. Angiogram performed post stent deployment. NC Emerge 2.75x12 Balloon catheter was inserted. Angiogram performed post balloon dilatation. The arterial sheath was pulled and a TR Band was applied for hemostasis w/15ml air INTERVENTION INFORMATION LESION SITE: RCA (Mid) Lesion Complexity: High/C, lesion length: 20 mm, thrombus present: Yes Pre intervention MANAN flow: 0 PROCEDURE: Drug Eluting Stent with pre and post dilatation Post Stenosis: 100 % Post intervention MANAN flow: 3 Lesion Devices: Terumo .014 180cm Runthrough Extra Floppy straight Cordis 6 Fr 3DRC 100cm Guide Catheter Jett Sci EMERGE MR 2.00x15 BALLOON Medtronic 2.50 x 22 BAUTISTA FRONTIER RONALD Jett Sci NC EMERGE MR 2.75x12 BALLOON COMPLICATIONS No Complications PROCEDURE MEDICATIONS Versed 1 mg IV Fentanyl 50 mcg IV Versed 1 mg IV Versed 1 mg IV Fentanyl 25 mcg IV Fentanyl 25 mcg IV Oxygen: 2 L/min via nasal cannula Brilinta 180 mg PO 12/06/2024 10:58:26 Adenosine 48 mcg IC 12/06/2024 11:21:02 Adenosine 48 mcg IC @ 12/06/2024 11:26:21 Heparin given IA 12/06/2024 10:27:31 Heparin 7000 unit(s) IV 12/06/2024 10:55:49 Nitro 100 mcg IC 12/06/2024 11:10:08 Nitro 100 mcg IC 12/06/2024 11:10:08 Nitro 100 mcg IC 12/06/2024 11:14:58 Verapamil 2.5mg, Ntg 100mcgs, 3000 units of Heparin given IA 12/06/2024 10:27:31 IV Bolus: .9 NaCl 500 ml total 12/06/2024 10:33:21 SUMMARY OF HEMODYNAMIC DATA Time AIR REST ECG 10:00:32 AO 80/50 (62) SA 10:37:57 AO 90/64 (77) 10:41:50 LV 99/11, 18 10:44:15 LV 100/14, 19 10:44:23 LV 101/15, 24 10:45:05 LV 100/15, 20 10:45:14 LVp 100/15, 22 10:45:22 AOp 100/54 (74) 10:45:29 AIR REST 10:58:43 AIR REST AO 88/60 (78) 11:00:57 AO 107/68 (84) 11:04:09 AO 70/47 (54) 11:26:46 AO 88/64 (75) 11:27:00 AO 108/74 (89) 11:28:38 Signed By Pennie Diaz MD On 12/06/2024 11:41:28 Pennie Diaz MD
--- NOTE | 2025-01-03 09:46 | CL.D_ITS ---
Patient Name: MANJULA ROWLAND Study Date: 12/06/2024 Performing: Cheo Mckenzie MD Ht: 64 inches 162.56 cm : 1955 Wt: 214.29 lbs 97.2 kg Age: 69 Gender: female BSA: 2.01 PROCEDURE(S) PERFORMED DC01-(18444)LHC/COR/LV CLINICAL PROFILE AND INDICATIONS Indications: Suspected CAD Heart Failure: None Stress/Imaging Stress/Image Study Performed: No CAD Presentations: Non-STEMI. Symptom onset Date/Time: 12/05/24 Time Not Available CONCLUSIONS Coronary artery disease involving a totally occluded right coronary artery and high-grade stenosis of the obtuse marginal branch. Left ventricular dysfunction involving a severely hypokinetic basal inferior wall. RECOMMENDATIONS Consider PCI to the right coronary artery DESCRIPTION OF PROCEDURE The patient arrived to the procedure lab. The risks and benefits of the procedure as well as a full description of our services here and current unavailability of surgical backup were fully explained to the patient and/or their significant other prior to the catheterization. The Timeout was completed, verifying the correct patient and procedure. The patient's procedural site was prepped and draped in the usual fashion. Local anesthetic was given subcutaneously to right radial region with Lidocaine 2%. Using a modified Seldinger technique, arterial access was obtained via the right radial artery, a 6Fr sheath was inserted. Left Coronary Artery selective angiography was performed in multiple views using a 5 Fr. 4.0 [place] catheter. Right Coronary Artery selective angiography was then performed in multiple views using a 5 Fr. 4.0 [place] catheter. Left Ventriculography was performed in NELSON projection using a 5 Fr. Pigtail catheter. CORONARY ANGIOGRAPHY DOMINANCE: Right Dominant LEFT HEART ASSESSMENT Left Ventricular Ejection Fraction: by LV Gram 50 % Inferior Basal Hypokinesis - Severe Depressed Left Ventricular systolic function LEFT MAIN: Angiographically normal, Mild calcification LEFT ANTERIOR DESCENDING ARTERY: Mild luminal irregularities less than 30% CIRCUMFLEX ARTERY: Medium size vessel with a first obtuse marginal branch which bifurcates the inferior branch of the bifurcation has about 80% stenosis and there is a small AV groove branch noted. The superior branch has mild disease only. RIGHT CORONARY ARTERY: MID RCA: is occluded COMPLICATIONS PROCEDURE MEDICATIONS Versed 1 mg IV Fentanyl 50 mcg IV Versed 1 mg IV Versed 1 mg IV Oxygen: 2 L/min via nasal cannula Heparin given IA 12/06/2024 10:27:31 Heparin 7000 unit(s) IV 12/06/2024 10:55:49 Verapamil 2.5mg, Ntg 100mcgs, 3000 units of Heparin given IA 12/06/2024 10:27:31 IV Bolus: .9 NaCl ml total 12/06/2024 10:33:21 SUMMARY OF HEMODYNAMIC DATA Time AIR REST ECG 10:00:32 AO 80/50 (62) SA 10:37:57 AO 90/64 (77) 10:41:50 LV 99/11, 18 10:44:15 LV 100/14, 19 10:44:23 LV 101/15, 24 10:45:05 LV 100/15, 20 10:45:14 LVp 100/15, 22 10:45:22 AOp 100/54 (74) 10:45:29 Signed By Cheo Mckenzie MD On 12/06/2024 10:58:35 Cheo Mckenzie MD
== END 2024-12-07 14:03 | disposition home or self-care (01) | DRG 322 ==
LOC: ED 16:26 → PCU 17:10
PROVIDERS: Hospitalist; Internal Medicine Cardiovascular Disease; Physician Assistant; Admitting Provider Family Medicine; Emergency Provider Emergency Medicine; PCP Family Medicine
DX: I21.4 Non-ST elevation (NSTEMI) myocardial infarction (principal); D64.9 Anemia, unspecified; E11.22 Type 2 diabetes mellitus with diabetic chronic kidney disease; E03.9 Hypothyroidism, unspecified; E66.9 Obesity, unspecified; N18.32 Chronic kidney disease, stage 3b; I12.9 Hypertensive chronic kidney disease with stage 1 through stage 4 chronic kidney disease, or unspecified chronic kidney disease; E78.5 Hyperlipidemia, unspecified; K21.9 Gastro-esophageal reflux disease without esophagitis; Z79.899 Other long term (current) drug therapy; Z90.710 Acquired absence of both cervix and uterus; Z87.891 Personal history of nicotine dependence; Z82.49 Family history of ischemic heart disease and other diseases of the circulatory system; Z68.36 Body mass index [BMI] 36.0-36.9, adult
CPT/HCPCS: 36415; 71046; 74177; 80048; 80053; 80061; 80076; 82962; 83036; 83690; 83735; 83880; 84484; 85025; 85027; 85347; 85610; 85730; 92928; 93005; 93306; 93458; 94668; 97802; 99152; 99153; 99285; Q9967; A4216; C1725; C1769; C1874; C1887; C1894; C9600; J0153; J1327; J2405

== ENCOUNTER → 2024-12-10 | Outpatient (CLI) | payer MEDICARE, SELFPAY ==
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
--- NOTE | 2024-12-10 14:04 | PCM.CR.ITP ---
Diagnosis General Information Admitting Diagnosis: PCI with stenting Personal Learning Style:: Audio/Visual Barriers to Learning: No Barriers Stage of change r/t lifestyle modifications:: Contemplation Gave educational material for:: Treating Heart Disease, How The Heart Works, What it means to have Heart Disease, How Coronary Artery Disease is Diagnosed, Heart Procedures, What Heart Medications Do, Risk Factors & Modifications, Living an Active Life, Nutrition, Emotions & Heart Disease, Stress Management & Relaxation and Sleep Disorders & Heart Disease Education/Goals Cardiac Rehabilitation Goals Personal Goals: Initial Assessment: Improve management of stress and emotions, Improve energy level, Participate in home exercise program, Improve knowledge of cardiac disease, Improve muscle strength and endurance and Improve diet and eating habits (eat healthier) Scale for measuring improvement of personal goals Diagnosis & Disease Process Outcomes/Goals: Pt IDs own risk factors & lifestyle modifications by Session 10, Verbalizes symptoms of angina & response by session 3., Pt independently manages and Other Additional Outcomes/Goals: Plan/Interventions: Assist Pt to ID & engage in lifestyle modification to reduce CVD risk, Instruct on individual risk factors, Review symptoms of angina & emergency actions, Review secondary diagnosis & identify educational needs. and Other see comment Safety Referral to Physical Therapy: No Referral to [facility] Case Management: No Fall Risk Assessed:: Yes Assistive Devices:: None Exercise - Initial Assessment Visit Date of Eval: 12/10/24 (initial eval ) Mets: Pre-: >3 METS for 30 minutes by discharge, >5 METS for 30 minutes by discharge, >7 METS for 30 minutes by discharge and Unable to meet goal due to: (see comment below) Physician Prescribed Exercise Modalities: Treadmill, Rower, Schwted Airdyne AD-7, SciFit Stepper, MyVRFit Pro-II Ergometer and MyVRFit Lateral [employer] Frequency: 3x/week for 12 weeks [36 sessions] Intensity: 60-80% of age predicted maximum heart rate reserve Duration: 30 - 45 minutes Current METSs:: 3 Target Heart Rate:: 90-113 Resting Blood Pressure: 122/72 EKG Type: NSR Outcomes & Goals Goals:: Verbalizes understanding of THR, RPE & goal METS by session 6, Documents in home exercise log/reports 30 min aerobic 5 day/wk by DC, Demonstrates accurate pulse taking by DC and Other additional outcome/goals: see below Intervention & Plan Exercise Program Goals: Instruct on personal THR & RPE, Instruct on MET level & personal MET goal, Show patient to take own pulse /validate performance until accurate, Instruct on home exercise and Other additional plan/int Physical Activity Home Exercise Physical Activity - Home Exercise: Safe Exercise, Warm-up, Self-monitoring, Cool-Down, Home Exercise > 30 min Daily and Sitting Time <3 hours/daily Outcomes & Goals Outcomes/Goals: Demonstrates correct Warm-up/exercise Cool-Down (S3) if = 2.5 METs, Verbalizes symptoms of exercise intolerance by Session 3 (S3), Demonstrate safe equipment use (S3) & follows exercise prescrition (6) and Other: See below Intervention & Plan Plan/Intervention: Instruct warm-up & cool-down if exercising at > 2 METs, Instruct on symptoms of exercise intolerance & actions to take, Instruct & monitor on saf, Assess intial functional capacity & safety risk and Other See below Nutrition - Initial Assessment Program Goals Nutrition Program Goals Patient has diagnosis of Hyperlipidemia (ICD E78)?: Yes Visit Date of Eval: 12/10/24 (initial eval ) Cholesterol/Lipids (Other Core Measures) Determine presence & major risk factors that modify LDL goal: Hypertension or hypertensive medication, Low HDL cholesterol <40 mg/dL*, Family history of premature CHD in Male < 55 years: female <65 yearsFa and Age men > 45 years; women >/= 55 years Outcomes/Goals: Pt IDs own risk factors & lifestyle modifications by Session 10, Verbalizes symptoms of angina & response by session 3., Pt independently manages and Other Additional Outcomes/Goals: Intervention/Plan: Advocate for lipid panel cholesterol medication if applicable, Instruct on personal lipid levels & lipid goals/NCEP guidelines, Instruct on cholesterol and Other additional plan/int Diabetes (Other Core Measures) Diabetes Type: Diagnosis Type II ICD-10 E11 Insulin dependent injection/pump?: No Non-Insulin Dependent?: Yes Referral to Diabetic Clinic:: Yes Weight Mgt (Other Care) Height: 5 ft 4 in Weight:: 195 lb BMI: 33.5 Diagnosis Overweight/Obesity BMI> 30% ICD-10 E66: Yes Diagnosis High BMI/Morbid Obesity BMI> 35% ICD-10 Z68: No Outcomes/Goals: Pt sets, maintains & shows weight loss goal & trend during rehab and Other additional outcomes/goals Intervention/Plan: Instruct on ideal BMI & set weight loss goal w/patient, Assist pt to ID & incorporate diet changes for weight loss by S9, Refer to Structured Weight Loss program as appropriate, Encourage goal of using 250-300dcal per session for weight loss and Other additional plan/interventions Healthy Eating Habits Will attend diet classes:: Yes Outcomes/Goals:: Consume diet rich in vegs,fruits,whole grain/high fiber,fish,lean meat, Limit sat/trans fats,cholesterol & added salts & sugars and Other additional outcome/goals: Intervention/Plan:: Assess current eating habits and Other Additional plan/interventions Education Gave educational materials for:: Signs & symptoms of hypoglycemia, Signs & symptoms of hyperglycemia, Relate diabetes to coronary artery disease and Healthy eating Core - Initial Assessment Visit Date of Eval: 12/10/24 (intial eval) Medication Compliance Preventative Medication(s):: Aspirin, Clopidogrel/P2Y12 inhibit, Statin/lipid and Beta sherly H/O mental health issues: depression, anxiety, or addiction?: No Doesn?t believe in the benefits of treatment?: No Believes medications are unnecessary or harmful?: No Has a concern about medication side effects?: No Expresses concern over the cost of medications?: No Outcomes/Goals: Verbalizes medications,desired effect & common side effects @ DC, Pt self-reports following medication regimen, Keeps card in wallet w/medications listed by DC and Other additional outcome/goals: Interventions/plans: Instruct on medication effects & side effects, Review medication list w/patient every two weeks, Instruct importance of taking meds as ordered & assist problem solving and Other additional Tobacco Use Tobacco Use: Non-smoker How long ago did you quit using tobacco products?: Greater than or equal to 6 months ago (Pt stopped 7 years ago) How many cigarettes do you smoke per day?: 20 Years Smokin Do you use smokeless tobacco?: No Outcomes/Goals: Smoking cessation achieved or maintained by discharge, Identify aids/strategies for achieving smoking cessation by session 6 and Other additional outcome/goals Interventions/plan: Instruct on effects of smoking & provide smoking cessation resource, Assist pt to set quit date & provide encouragement, Assist pt to develop strategies to achieve/maintain quit date, Assist pt w/nicotine replacement & medication for cessation success and Other additional plan/interventions Hypertension Hypertension Diagnosis:: Hypertension ICD-10 I10 Resting Blood Pressure:: 122/72 [place] [employer] Hypertension Guidelines Outcomes/Goals: Able to verbalize/achieve optimal blood pressure <130/80, Incorporates diet changes & exercise for blood pressure control by DC and Other additional outcomes/goals Interventions/plan: Instruct on optimal blood pressure, hypertension & medications, Instruct on effects of sodium, alcohol, stress, exercise &hypertension and Other additional plan/interventions Tobacco Cessation Referral Smoking Cessation Referral:: No Individual Education/Counseling:: No Education Schedule Given:: Yes Psychosocial - Initial Assess VIsit Date of Eval: 12/10/24 (initial eval ) History of previous Mental disease:: No Target Goals Target Goals Psychosocial Test Tool Used:: PHQ-9 Questionnaire phq-9 Severity See PHQ-9 Score: 1 Referral to Behavioral Health PS - Interventions: Yes: Attend Stress Management Classes Outcomes/Goals: See list Psychosocial Outcomes/Goals:: ID's personal stressors & 2 strategies to manage stress by discharge and Other Additional outcome/goals: Intervention/Plan: See List Interventions/Plan:: Assess stressors,coping strategies & signs of derpression on admission, Instruct/assist pt to develop coping & personal stress Mgt strategies, Refer to Behavioral Health if appropriate, Refer to Physician if appropriate, Instruct patient to recognize signs & symptoms of depression, Instruct patient to recog and Other additional plan/intervention Patient Health Questionnaire PHQ-9 Screening Initial Assessment: 1. Little interest or pleasure in doing things: Not at all 2. Feeling down, depressed, or hopeless: Not at all 3. Trouble falling or staying asleep, or sleeping too much: Not at all 4. Feeling tired or having little energy: Several days 5. Poor appetite or overeating: Not at all 6. Feeling bad about yourself -- or that you are a failure or have let yourself or your family down: Not at all 7. Trouble concentrating on things, such as reading the newspaper or watching television: Not at all 8. Moving or speaking so slowly that other people could have noticed. Or the opposite - being so fidgety or restless that you have been moving around a lot more than usual: Not at all 9. Thoughts that you would be better off , or of hurting yourself in some way: Not at all How difficult have these problems made it for you to do your work, take care of things at home, or get along with other people?: Not difficult at all Total Score: 1 PAULA-Q SV Test Statements CAD is a disease of the arteries in the heart: False Examples of risk factors for heart disease: True Angina is chest pain or discomfort: True The benefits of resistance training include: True Eating more meat and dairy products: False Anti-platelet medications such as aspirin are important: True The only effective way to manage stress: False An exercise warm-up slowly increases heart rate: I Don't Know Prepared, processed foods usually have high sodium: True Depression is common after a heart attack: I Don't Know The statin medications lower cholesterol: True To control blood pressure, lower the amount of sodium: True If someone gets chest discomfort during walking: False Transfats are partially hydrogenated vegetable oils: I Don't Know Sleep apnea that is not treated increases the risk: I Don't Know To control cholesterol, one should become a vegetarian: False Someone knows if he/she is exercising at the right level: I Don't Know Diabetes cannot be prevented with exercise & health eating: False Stress is a large risk for heart attack: True A diet that can help lower blood pressure is rich in: True Total Score Total Correct Responses: 15 Self-Efficacy 6-Item Scale Initial Assessment: We would like to know how confident you are in doing certain activities. Please select your confidence level for: Fatigue Select Number: 10 Physical Discomfort or Pain Select Number: 10 Emotional Distress Select Number: 8 Other Symptoms or Health Problems Select Number: 8 Different Tasks and Activities Select Number: 9 Medication Select Number: 10 Total Score:: 9 Nutrition Survey Nutrition Survey Instructions Scoring Instructions Nutrition Survey Initial: Have you lost >10 lbs over the past 2 months without trying?: No Are you following a special diet at home for diabetes, low fat, or low salt?: No Are you interested in meeting with a dietitian for help understanding your diet?: Yes Do you eat less than 3 meals a day?: Yes Do you eat fatty meats (mcallister, sausage, ribs, etc), fried foods, desserts, large amounts of salad dressings, margarine, butter, or cheese most days?: No Do you have food allergies? [Enter types in comment field]: No Do you eat in restaurants more than 3 times a week?: No Do you season food with salt, seasoning salt, or garlic salt?: Yes Do you used canned, boxed, frozen meals, or soups, seasoning packets?: Yes Total Score:: 4 Exercise - 30-day Assessment Physician Prescribed Exercise Modalities: Treadmill, Rower, Schwinn Airdyne AD-7, SciFit Stepper, SciFit Pro-II Ergometer and SciFit Lateral [employer] Exercise - 60-day Assessment Physician Prescribed Exercise Modalities: Treadmill, Rower, Schwinn Airdyne AD-7, SciFit Stepper, SciFit Pro-II Ergometer and SciFit Lateral [employer] Exercise - 90-day Assessment Physician Prescribed Exercise Modalities: Treadmill, Rower, Schwinn Airdyne AD-7, SciFit Stepper, SciFit Pro-II Ergometer and SciFit Lateral [place] Exercise - Final/Discharge Physician Prescribed Exercise Modalities: Treadmill, Rower, Schwinn Airdyne AD-7, SciFit Stepper, SciFit Pro-II Ergometer and SciFit Lateral [place]mith Frequency: 3x/week for 12 weeks [36 sessions] Intensity: 60-80% of age predicted maximum heart rate reserve Current METSs:: 3 Target Heart Rate:: 90-113 Nutrition - 30-Day Assessment Weight Mgt (Other Care) Height: 5 ft 4 in Weight:: 195 lb BMI: 33.5 Nutrition - 60-Day Assessment Weight Mgt (Other Care) Height: 5 ft 4 in Weight:: 195 lb BMI: 33.5 Core - 30-Day Assessment Tobacco Use Years Smokin Core - Final Assessment Hypertension Resting Blood Pressure:: 122/72 [place] [employer] Hypertension Guidelines Core - 60-Day Assessment Hypertension Resting Blood Pressure:: 122/72 [place] [employer] Hypertension Guidelines Psychosocial - 30-Day Assess Target Goals Target Goals Referral to Behavioral Health PS - Interventions: Yes: Attend Stress Management Classes Psychosocial - 60-Day Assess Target Goals Target Goals Referral to Behavioral Health PS - Interventions: Yes: Attend Stress Management Classes Psychosocial - 90-Day Assess Target Goals Target Goals Referral to Behavioral Health PS - Interventions: Yes: Attend Stress Management Classes Psychosocial - Final Assessmen Target Goals Target Goals Psychosocial Test phq-9 Severity See PHQ-9 Score: 1 Referral to Behavioral Health PS - Interventions: Yes: Attend Stress Management Classes Nutrition - 90-Day Assessment Weight Mgt (Other Care) Height: 5 ft 4 in Weight:: 195 lb BMI: 33.5 Nutrition - Final Assessment Program Goals Patient has diagnosis of Hyperlipidemia (ICD E78)?: Yes Weight Mgt (Other Care) Height: 5 ft 4 in Weight:: 195 lb BMI: 33.5
[2024-12-10 14:22] VITALS: BP 122/72; PULSE 68; O2SAT 98
[2024-12-10 14:51] VITALS: BP 122/72; BMI 33.5
[2024-12-10 14:52] VITALS: BMI 33.5
== END | disposition home or self-care (01) ==
PROVIDERS: PCP Family Medicine; Referring Provider Internal Medicine Cardiovascular Disease; Visit Provider Internal Medicine Cardiovascular Disease
DX: I21.4 Non-ST elevation (NSTEMI) myocardial infarction (principal); E11.22 Type 2 diabetes mellitus with diabetic chronic kidney disease; N18.32 Chronic kidney disease, stage 3b; I12.9 Hypertensive chronic kidney disease with stage 1 through stage 4 chronic kidney disease, or unspecified chronic kidney disease; E78.00 Pure hypercholesterolemia, unspecified; Z95.5 Presence of coronary angioplasty implant and graft

== ENCOUNTER 2024-12-22 11:15 | Outpatient (RCR) | payer MEDICARE, SELFPAY ==
[2024-12-10 14:51] VITALS: BMI 33.5
== END 2024-12-23 23:59 ==
LOC: CR 11:15
PROVIDERS: PCP Family Medicine; Referring Provider Internal Medicine Cardiovascular Disease; Visit Provider Internal Medicine Cardiovascular Disease
DX: Z95.5 Presence of coronary angioplasty implant and graft (principal); I21.4 Non-ST elevation (NSTEMI) myocardial infarction; N18.32 Chronic kidney disease, stage 3b; I12.9 Hypertensive chronic kidney disease with stage 1 through stage 4 chronic kidney disease, or unspecified chronic kidney disease; E78.00 Pure hypercholesterolemia, unspecified; E11.22 Type 2 diabetes mellitus with diabetic chronic kidney disease
CPT/HCPCS: 93798

== ENCOUNTER 2025-01-05 11:54 | Outpatient (RCR) | payer MEDICARE, SELFPAY ==
[2024-12-10 14:51] VITALS: BMI 33.5
== END 2025-01-23 23:59 ==
LOC: NS 11:54
PROVIDERS: PCP Family Medicine; Referring Provider Internal Medicine Cardiovascular Disease; Visit Provider Internal Medicine Cardiovascular Disease
DX: Z71.3 Dietary counseling and surveillance (principal); E11.9 Type 2 diabetes mellitus without complications; E78.00 Pure hypercholesterolemia, unspecified
CPT/HCPCS: 97802

== ENCOUNTER 2025-01-21 11:15 | Outpatient (RCR) | payer MEDICARE, SELFPAY ==
[2024-12-10 14:51] VITALS: BMI 33.5
--- NOTE | 2025-01-07 08:55 | PCM.CR.ITP ---
Exercise - Initial Assessment Visit Session #:: 8 Physician Prescribed Exercise Modalities: SciFit Stepper and SciFit Pro-II Ergometer Nutrition - Initial Assessment Weight Mgt (Other Care) Height: 5 ft 4 in Weight:: 210 lb BMI: 36.0 Core - Initial Assessment Tobacco Use Years Smokin Psychosocial - Initial Assess Target Goals Target Goals Referral to Behavioral Health PS - Interventions: Yes: Attend Stress Management Classes Patient Health Questionnaire PHQ-9 Screening 30-Day Re-eval Assessment: 1. Little interest or pleasure in doing things: Not at all 2. Feeling down, depressed, or hopeless: Not at all 3. Trouble falling or staying asleep, or sleeping too much: Not at all 4. Feeling tired or having little energy: Several days 5. Poor appetite or overeating: Not at all 6. Feeling bad about yourself -- or that you are a failure or have let yourself or your family down: Not at all 7. Trouble concentrating on things, such as reading the newspaper or watching television: Not at all 8. Moving or speaking so slowly that other people could have noticed. Or the opposite - being so fidgety or restless that you have been moving around a lot more than usual: Not at all 9. Thoughts that you would be better off , or of hurting yourself in some way: Not at all How difficult have these problems made it for you to do your work, take care of things at home, or get along with other people?: Not difficult at all Total Score: 1 Self-Efficacy 6-Item Scale 30-Day Re-eval Assessment: We would like to know how confident you are in doing certain activities. Please select your confidence level for: Fatigue Select Number: 10 Physical Discomfort or Pain Select Number: 10 Emotional Distress Select Number: 8 Other Symptoms or Health Problems Select Number: 8 Different Tasks and Activities Select Number: 9 Medication Select Number: 10 Total Score:: 9 Nutrition Survey Nutrition Survey Instructions Scoring Instructions Exercise - 30-day Assessment Visit Date of Eval: 01/07/25 Session #:: 8 Physician Prescribed Exercise Modalities: SciFit Stepper and SciFit Pro-II Ergometer Frequency: 3x/week for 12 weeks [36 sessions] Intensity: 60-80% of age predicted maximum heart rate reserve Duration: 30 - 45 minutes Current METSs:: 3.1 Target Heart Rate:: 90-113 Current RPE:: 12-13 Maximum Excercise HR:: 118 Resting Blood Pressure: 126/68 Maximum Exercise Blood Pressure: 168/78 EKG Type: NSR to ST w/rare pac, pvc, occas sinus arrythmia. Outcomes & Goals Goals:: Verbalizes understanding of THR, RPE & goal METS by session 6, Documents in home exercise log/reports 30 min aerobic 5 day/wk by DC, Demonstrates accurate pulse taking by DC and Other additional outcome/goals: see below Intervention & Plan Exercise Program Goals: Instruct on personal THR & RPE, Instruct on MET level & personal MET goal, Show patient to take own pulse /validate performance until accurate, Instruct on home exercise and Other additional plan/int Physical Activity Home Exercise Physical Activity - Home Exercise: Safe Exercise, Warm-up, Self-monitoring, Cool-Down, Home Exercise > 30 min Daily and Sitting Time <3 hours/daily Outcomes & Goals Outcomes/Goals: Demonstrates correct Warm-up/exercise Cool-Down (S3) if = 2.5 METs, Verbalizes symptoms of exercise intolerance by Session 3 (S3), Demonstrate safe equipment use (S3) & follows exercise prescrition (6) and Other: See below Intervention & Plan Plan/Intervention: Instruct warm-up & cool-down if exercising at > 2 METs, Instruct on symptoms of exercise intolerance & actions to take, Instruct & monitor on saf, Assess intial functional capacity & safety risk and Other See below 30-day Reassessments 30 day Reassessments:: Progressing Reassessment Notes & Comments:: RPE explained to pt. Pt demonstrates understanding in her daily sessions. Exercise - 60-day Assessment Physician Prescribed Exercise Modalities: SciFit Stepper and SciFit Pro-II Ergometer Exercise - 90-day Assessment Physician Prescribed Exercise Modalities: SciFit Stepper and SciFit Pro-II Ergometer Exercise - Final/Discharge Physician Prescribed Exercise Modalities: SciFit Stepper and SciFit Pro-II Ergometer Nutrition - 30-Day Assessment Program Goals Nutrition Program Goals Patient has diagnosis of Hyperlipidemia (ICD E78)?: Yes Visit Date of Eval: 01/07/25 Session #:: 8 Cholesterol/Lipids (Other Core Measures) Determine presence & major risk factors that modify LDL goal: Hypertension or hypertensive medication, Low HDL cholesterol <40 mg/dL*, Family history of premature CHD in Male < 55 years: female <65 yearsFa and Age men > 45 years; women >/= 55 years Outcomes/Goals: Pt IDs own risk factors & lifestyle modifications by Session 10, Verbalizes symptoms of angina & response by session 3., Pt independently manages and Other Additional Outcomes/Goals: Intervention/Plan: Advocate for lipid panel cholesterol medication if applicable, Instruct on personal lipid levels & lipid goals/NCEP guidelines, Instruct on cholesterol and Other additional plan/int Diabetes (Other Core Measures) Diabetes Type: Diagnosis Type II ICD-10 E11 Insulin dependent injection/pump?: No Non-Insulin Dependent?: Yes Do you monitor your blood sugar at home?: Yes Weight Mgt (Other Care) Height: 5 ft 4 in Weight:: 210 lb BMI: 36.0 Diagnosis Overweight/Obesity BMI> 30% ICD-10 E66: Yes Diagnosis High BMI/Morbid Obesity BMI> 35% ICD-10 Z68: Yes Outcomes/Goals: Pt sets, maintains & shows weight loss goal & trend during rehab and Other additional outcomes/goals Intervention/Plan: Instruct on ideal BMI & set weight loss goal w/patient, Assist pt to ID & incorporate diet changes for weight loss by S9, Refer to Structured Weight Loss program as appropriate, Encourage goal of using 250-300dcal per session for weight loss and Other additional plan/interventions 30 day Reassessments:: Progressing Reassessment Notes & Comments:: Pt with recent weight gain. 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 Pt started on Lasix for 5 days. Healthy Eating Habits Will attend diet classes:: Yes Outcomes/Goals:: Consume diet rich in vegs,fruits,whole grain/high fiber,fish,lean meat, Limit sat/trans fats,cholesterol & added salts & sugars and Other additional outcome/goals: Intervention/Plan:: Assess current eating habits and Other Additional plan/interventions 30-day Reassessments:: Progressing Reassessment Notes & Comments:: Pt is attending nutrition classes this week. Heart healthy low sodium diet encoraged. Education Gave educational materials for:: Signs & symptoms of hypoglycemia, Signs & symptoms of hyperglycemia, Relate diabetes to coronary artery disease and Healthy eating Nutrition - 60-Day Assessment Weight Mgt (Other Care) Height: 5 ft 4 in Weight:: 210 lb BMI: 36.0 Core - 30-Day Assessment Visit Date of Eval: 01/07/25 Session #:: 8 Medication Compliance Preventative Medication(s):: Aspirin, Clopidogrel/P2Y12 inhibit, Statin/lipid and Beta sherly H/O mental health issues: depression, anxiety, or addiction?: No Doesn?t believe in the benefits of treatment?: No Believes medications are unnecessary or harmful?: No Has a concern about medication side effects?: No Expresses concern over the cost of medications?: No Outcomes/Goals: Verbalizes medications,desired effect & common side effects @ DC, Pt self-reports following medication regimen, Keeps card in wallet w/medications listed by DC and Other additional outcome/goals: Interventions/plans: Instruct on medication effects & side effects, Review medication list w/patient every two weeks, Instruct importance of taking meds as ordered & assist problem solving and Other additional Tobacco Use Tobacco Use: Non-smoker How long ago did you quit using tobacco products?: Greater than or equal to 6 months ago (Pt stopped 7 years ago.) Years Smokin Outcomes/Goals: Smoking cessation achieved or maintained by discharge, Identify aids/strategies for achieving smoking cessation by session 6 and Other additional outcome/goals Interventions/plan: Instruct on effects of smoking & provide smoking cessation resource, Assist pt to set quit date & provide encouragement, Assist pt to develop strategies to achieve/maintain quit date, Assist pt w/nicotine replacement & medication for cessation success and Other additional plan/interventions 30-day Reassessments:: Met Hypertension Hypertension Diagnosis:: Hypertension ICD-10 I10 Resting Blood Pressure:: 126/68 [place] [employer] Hypertension Guidelines Peak Exercise Blood Pressure:: 168/78 Outcomes/Goals: Able to verbalize/achieve optimal blood pressure <130/80, Incorporates diet changes & exercise for blood pressure control by DC and Other additional outcomes/goals Interventions/plan: Instruct on optimal blood pressure, hypertension & medications, Instruct on effects of sodium, alcohol, stress, exercise &hypertension and Other additional plan/interventions 30 day Reassessments:: Progressing Reassessment Notes & Comments:: Pt's BP's are within normal limits on some days. Pt started on Lasix for 5 days due to recent weight gain. Tobacco Cessation Referral Smoking Cessation Referral:: No Individual Education/Counseling:: No Education Schedule Given:: Yes Psychosocial - 30-Day Assess VIsit Date of Eval: 01/07/25 Session #:: 8 History of previous Mental disease:: No Target Goals Target Goals Psychosocial Test Tool Used:: PHQ-9 Questionnaire phq-9 Severity See PHQ-9 Score: 1 Referral to Behavioral Health PS - Interventions: Yes: Attend Stress Management Classes Outcomes/Goals: See list Psychosocial Outcomes/Goals:: ID's personal stressors & 2 strategies to manage stress by discharge and Other Additional outcome/goals: Intervention/Plan: See List Interventions/Plan:: Assess stressors,coping strategies & signs of derpression on admission, Instruct/assist pt to develop coping & personal stress Mgt strategies, Refer to Behavioral Health if appropriate, Refer to Physician if appropriate, Instruct patient to recognize signs & symptoms of depression, Instruct patient to recog and Other additional plan/intervention 30-day Reassessments: 30 day Reassessments:: Progressing Reassessment Notes & Comments:: Pt denies any psychosocial issues at this time. Pt will attend stress management class. Will reevaluate in 30 days. Psychosocial - 60-Day Assess Target Goals Target Goals Referral to Behavioral Health PS - Interventions: Yes: Attend Stress Management Classes Outcomes/Goals: See list Psychosocial Outcomes/Goals:: ID's personal stressors & 2 strategies to manage stress by discharge and Other Additional outcome/goals: Psychosocial - 90-Day Assess Target Goals Target Goals Referral to Behavioral Health PS - Interventions: Yes: Attend Stress Management Classes Psychosocial - Final Assessmen Target Goals Target Goals Referral to Behavioral Health PS - Interventions: Yes: Attend Stress Management Classes Nutrition - 90-Day Assessment Weight Mgt (Other Care) Height: 5 ft 4 in Weight:: 210 lb BMI: 36.0 Nutrition - Final Assessment Weight Mgt (Other Care) Height: 5 ft 4 in Weight:: 210 lb BMI: 36.0
[2025-01-07 09:05] VITALS: BP 126/68; BMI 36.0
== END 2025-01-23 23:59 ==
LOC: CR 11:15
PROVIDERS: PCP Family Medicine; Referring Provider Internal Medicine Cardiovascular Disease; Visit Provider Internal Medicine Cardiovascular Disease
DX: Z95.5 Presence of coronary angioplasty implant and graft (principal); I21.4 Non-ST elevation (NSTEMI) myocardial infarction; N18.32 Chronic kidney disease, stage 3b; I12.9 Hypertensive chronic kidney disease with stage 1 through stage 4 chronic kidney disease, or unspecified chronic kidney disease; E78.00 Pure hypercholesterolemia, unspecified; E11.22 Type 2 diabetes mellitus with diabetic chronic kidney disease
CPT/HCPCS: 93798

== ENCOUNTER 2025-01-26 11:59 | Outpatient (RCR) | payer MEDICARE, SELFPAY ==
[2025-01-24 00:14] VITALS: BMI 36.0
== END 2025-02-22 23:59 ==
LOC: NS 11:59
PROVIDERS: PCP Family Medicine; Referring Provider Internal Medicine Cardiovascular Disease; Visit Provider Internal Medicine Cardiovascular Disease
DX: Z71.3 Dietary counseling and surveillance (principal); E11.9 Type 2 diabetes mellitus without complications; E78.00 Pure hypercholesterolemia, unspecified
CPT/HCPCS: 97803

== ENCOUNTER 2025-02-21 11:15 | Outpatient (RCR) | payer MEDICARE, SELFPAY ==
[2025-01-24 00:14] VITALS: BMI 36.0
--- NOTE | 2025-02-04 09:27 | PCM.CR.ITP ---
Exercise - Initial Assessment Physician Prescribed Exercise Modalities: SciFit Stepper and SciFit Pro-II Ergometer Nutrition - Initial Assessment Weight Mgt (Other Care) Height: 5 ft 4 in Weight:: 208 lb BMI: 35.6 Core - Initial Assessment Hypertension Resting Blood Pressure:: 128/60 [place] [employer] Hypertension Guidelines Psychosocial - Initial Assess Referral to Behavioral Health PS - Interventions: Yes: Attend Stress Management Classes Patient Health Questionnaire PHQ-9 Screening 60-Day Re-eval Assessment: 1. Little interest or pleasure in doing things: Not at all 2. Feeling down, depressed, or hopeless: Not at all 3. Trouble falling or staying asleep, or sleeping too much: Not at all 4. Feeling tired or having little energy: Several days 5. Poor appetite or overeating: Not at all 6. Feeling bad about yourself -- or that you are a failure or have let yourself or your family down: Not at all 7. Trouble concentrating on things, such as reading the newspaper or watching television: Not at all 8. Moving or speaking so slowly that other people could have noticed. Or the opposite - being so fidgety or restless that you have been moving around a lot more than usual: Not at all 9. Thoughts that you would be better off , or of hurting yourself in some way: Not at all How difficult have these problems made it for you to do your work, take care of things at home, or get along with other people?: Not difficult at all Total Score: 1 Self-Efficacy 6-Item Scale 60-Day Re-eval Assessment: We would like to know how confident you are in doing certain activities. Please select your confidence level for: Fatigue Select Number: 10 Physical Discomfort or Pain Select Number: 10 Emotional Distress Select Number: 8 Other Symptoms or Health Problems Select Number: 8 Different Tasks and Activities Select Number: 9 Medication Select Number: 10 Total Score:: 9 Exercise - 30-day Assessment Physician Prescribed Exercise Modalities: SciFit Stepper and SciFit Pro-II Ergometer Exercise - 60-day Assessment Visit Date of Eval: 02/04/25 Session #:: 19 Physician Prescribed Exercise Modalities: SciFit Stepper and SciFit Pro-II Ergometer Frequency: 3x/week for 12 weeks [36 sessions] Intensity: 60-80% of age predicted maximum heart rate reserve Duration: 30 - 45 minutes Current METSs:: 3.1 Target Heart Rate:: 90-113 Current RPE:: 13-14 Maximum Excercise HR:: 113 Resting Blood Pressure: 120/64 Maximum Exercise Blood Pressure: 144/64 EKG Type: NSR to ST w/rare to occas pac, rare pvc. Ocas sinus arrhythmia Outcomes & Goals Goals:: Verbalizes understanding of THR, RPE & goal METS by session 6, Documents in home exercise log/reports 30 min aerobic 5 day/wk by DC, Demonstrates accurate pulse taking by DC and Other additional outcome/goals: see below Intervention & Plan Exercise Program Goals: Instruct on personal THR & RPE, Instruct on MET level & personal MET goal, Show patient to take own pulse /validate performance until accurate, Instruct on home exercise and Other additional plan/int Physical Activity Home Exercise Physical Activity - Home Exercise: Safe Exercise, Warm-up, Self-monitoring, Cool-Down, Home Exercise > 30 min Daily and Sitting Time <3 hours/daily Outcomes & Goals Outcomes/Goals: Demonstrates correct Warm-up/exercise Cool-Down (S3) if = 2.5 METs, Verbalizes symptoms of exercise intolerance by Session 3 (S3), Demonstrate safe equipment use (S3) & follows exercise prescrition (6) and Other: See below Intervention & Plan Plan/Intervention: Instruct warm-up & cool-down if exercising at > 2 METs, Instruct on symptoms of exercise intolerance & actions to take, Instruct & monitor on saf, Assess intial functional capacity & safety risk and Other See below 30-day Reassessments 30 day Reassessments:: Progressing Reassessment Notes & Comments:: Proper warm up and cool down explained to pt. Pt demonstrates understanding in her daily sessions. Exercise - 90-day Assessment Physician Prescribed Exercise Modalities: SciFit Stepper and SciFit Pro-II Ergometer Exercise - Final/Discharge Physician Prescribed Exercise Modalities: SciFit Stepper and SciFit Pro-II Ergometer Nutrition - 30-Day Assessment Weight Mgt (Other Care) Height: 5 ft 4 in Weight:: 208 lb BMI: 35.6 Nutrition - 60-Day Assessment Program Goals Nutrition Program Goals Patient has diagnosis of Hyperlipidemia (ICD E78)?: Yes Visit Date of Eval: 02/04/25 Session #:: 19 (Nutrition survey score of 4.) Cholesterol/Lipids (Other Core Measures) Determine presence & major risk factors that modify LDL goal: Cigarette smoking, Hypertension or hypertensive medication, Low HDL cholesterol <40 mg/dL*, Family history of premature CHD in Male < 55 years: female <65 yearsFa and Age men > 45 years; women >/= 55 years Outcomes/Goals: Pt IDs own risk factors & lifestyle modifications by Session 10, Verbalizes symptoms of angina & response by session 3., Pt independently manages and Other Additional Outcomes/Goals: Intervention/Plan: Advocate for lipid panel cholesterol medication if applicable, Instruct on personal lipid levels & lipid goals/NCEP guidelines, Instruct on cholesterol and Other additional plan/int Diabetes (Other Core Measures) Diabetes Type: Diagnosis Type II ICD-10 E11 Insulin dependent injection/pump?: No Non-Insulin Dependent?: Yes Referral to Diabetic Clinic:: Yes Weight Mgt (Other Care) Height: 5 ft 4 in Weight:: 208 lb BMI: 35.6 Diagnosis Overweight/Obesity BMI> 30% ICD-10 E66: Yes Diagnosis High BMI/Morbid Obesity BMI> 35% ICD-10 Z68: Yes Intervention/Plan: Instruct on ideal BMI & set weight loss goal w/patient, Assist pt to ID & incorporate diet changes for weight loss by S9, Refer to Structured Weight Loss program as appropriate, Encourage goal of using 250-300dcal per session for weight loss and Other additional plan/interventions Healthy Eating Habits Will attend diet classes:: Yes Outcomes/Goals:: Consume diet rich in vegs,fruits,whole grain/high fiber,fish,lean meat, Limit sat/trans fats,cholesterol & added salts & sugars and Other additional outcome/goals: Intervention/Plan:: Assess current eating habits and Other Additional plan/interventions 30-day Reassessments:: Progressing Reassessment Notes & Comments:: Pt has attended nutrition class. Heart healthy low sodium diet explained and encouraged. Education Gave educational materials for:: Signs & symptoms of hypoglycemia, Signs & symptoms of hyperglycemia, Relate diabetes to coronary artery disease and Healthy eating Core - Final Assessment Tobacco Use Years Smokin (Pt stopped 7 years ago) Hypertension Resting Blood Pressure:: 128/60 [place] [employer] Hypertension Guidelines Core - 60-Day Assessment Visit Date of Eval: 02/04/25 Session #:: 19 Medication Compliance Preventative Medication(s):: Aspirin, Clopidogrel/P2Y12 inhibit, Statin/lipid and Beta sherly H/O mental health issues: depression, anxiety, or addiction?: No Doesn?t believe in the benefits of treatment?: No Believes medications are unnecessary or harmful?: No Has a concern about medication side effects?: No Expresses concern over the cost of medications?: No Outcomes/Goals: Verbalizes medications,desired effect & common side effects @ DC, Pt self-reports following medication regimen, Keeps card in wallet w/medications listed by DC and Other additional outcome/goals: Interventions/plans: Instruct on medication effects & side effects, Review medication list w/patient every two weeks, Instruct importance of taking meds as ordered & assist problem solving and Other additional Tobacco Use Tobacco Use: Non-smoker How long ago did you quit using tobacco products?: Greater than or equal to 6 months ago Years Smokin (Pt stopped 7 years ago) Outcomes/Goals: Smoking cessation achieved or maintained by discharge, Identify aids/strategies for achieving smoking cessation by session 6 and Other additional outcome/goals Interventions/plan: Instruct on effects of smoking & provide smoking cessation resource, Assist pt to set quit date & provide encouragement, Assist pt to develop strategies to achieve/maintain quit date, Assist pt w/nicotine replacement & medication for cessation success and Other additional plan/interventions 30-day Reassessments:: Met (Pt no longer smokes) Hypertension Hypertension Diagnosis:: Hypertension ICD-10 I10 Resting Blood Pressure:: 120/64 Resting Blood Pressure:: 128/60 [place] [employer] Hypertension Guidelines Peak Exercise Blood Pressure:: 144/64 Outcomes/Goals: Able to verbalize/achieve optimal blood pressure <130/80, Incorporates diet changes & exercise for blood pressure control by DC and Other additional outcomes/goals Interventions/plan: Instruct on optimal blood pressure, hypertension & medications, Instruct on effects of sodium, alcohol, stress, exercise &hypertension and Other additional plan/interventions 30 day Reassessments:: Progressing Reassessment Notes & Comments:: Pt's BP are within AHA normal limits on some days. Report given to executive account manager and 01/28 Coreg inc to 12.5 mg QD. Will continue to monitor. Tobacco Cessation Referral Smoking Cessation Referral:: No Individual Education/Counseling:: No Education Schedule Given:: Yes Psychosocial - 30-Day Assess Referral to Behavioral Health PS - Interventions: Yes: Attend Stress Management Classes Outcomes/Goals: See list Psychosocial Outcomes/Goals:: ID's personal stressors & 2 strategies to manage stress by discharge and Other Additional outcome/goals: Psychosocial - 60-Day Assess VIsit Date of Eval: 02/04/25 Session #:: 19 History of previous Mental disease:: No Psychosocial Test Tool Used:: PHQ-9 Questionnaire phq-9 Severity See PHQ-9 Score: 1 Referral to Behavioral Health PS - Interventions: Yes: Attend Stress Management Classes Outcomes/Goals: See list Psychosocial Outcomes/Goals:: ID's personal stressors & 2 strategies to manage stress by discharge and Other Additional outcome/goals: Intervention/Plan: See List Interventions/Plan:: Assess stressors,coping strategies & signs of derpression on admission, Instruct/assist pt to develop coping & personal stress Mgt strategies, Refer to Behavioral Health if appropriate, Refer to Physician if appropriate, Instruct patient to recognize signs & symptoms of depression, Instruct patient to recog and Other additional plan/intervention 30-day Reassessments: 30 day Reassessments:: Progressing Reassessment Notes & Comments:: Pt denies any psychosocial issues at this time. Pt will attend stress management class. Will reevaluate every 30 days. Psychosocial - 90-Day Assess Referral to Behavioral Health PS - Interventions: Yes: Attend Stress Management Classes Psychosocial - Final Assessmen Referral to Behavioral Health PS - Interventions: Yes: Attend Stress Management Classes Nutrition - 90-Day Assessment Weight Mgt (Other Care) Height: 5 ft 4 in Weight:: 208 lb BMI: 35.6 Nutrition - Final Assessment Weight Mgt (Other Care) Height: 5 ft 4 in Weight:: 208 lb BMI: 35.6
[2025-02-04 09:36] VITALS: BP 120/64; BMI 35.6
[2025-02-04 09:42] VITALS: BP 120/64; BP 128/60
== END 2025-02-22 23:59 ==
LOC: CR 11:15
PROVIDERS: PCP Family Medicine; Referring Provider Internal Medicine Cardiovascular Disease; Visit Provider Internal Medicine Cardiovascular Disease
DX: I21.4 Non-ST elevation (NSTEMI) myocardial infarction (principal); N18.32 Chronic kidney disease, stage 3b; I12.9 Hypertensive chronic kidney disease with stage 1 through stage 4 chronic kidney disease, or unspecified chronic kidney disease; E78.00 Pure hypercholesterolemia, unspecified; E11.22 Type 2 diabetes mellitus with diabetic chronic kidney disease; Z95.5 Presence of coronary angioplasty implant and graft
CPT/HCPCS: 93798

== ENCOUNTER 2025-03-16 11:15 | Outpatient (RCR) | payer MEDICARE, SELFPAY ==
[2025-02-04 09:36] VITALS: BMI 35.6
[2025-02-23 00:27] VITALS: BMI 36.0
--- NOTE | 2025-03-03 08:53 | CR.ITP_ITS ---
Exercise - Initial Assessment Physician Prescribed Exercise Modalities: SciFit Stepper and SciFit Pro-II Ergometer Nutrition - Initial Assessment Weight Mgt (Other Care) Height: 5 ft 4 in Weight:: 208 lb BMI: 35.6 Psychosocial - Initial Assess Referral to Behavioral Health PS - Interventions: Yes: Attend Stress Management Classes Exercise - 30-day Assessment Physician Prescribed Exercise Modalities: SciFit Stepper and SciFit Pro-II Ergometer Exercise - 60-day Assessment Physician Prescribed Exercise Modalities: SciFit Stepper and SciFit Pro-II Ergometer Exercise - 90-day Assessment Visit Date of Eval: 03/03/25 Session #:: 31 Physician Prescribed Exercise Modalities: SciFit Stepper and SciFit Pro-II Ergometer Frequency: 3x/week for 12 weeks [36 sessions] Intensity: 60-80% of age predicted maximum heart rate reserve Duration: 30 - 45 minutes Current METSs:: 4.9 Target Heart Rate:: 90-120 Current RPE:: 12-14 Maximum Excercise HR:: 107 Resting Blood Pressure: 140/70 Maximum Exercise Blood Pressure: 146/76 EKG Type: NSR to ST w/ rare PAC and PVC Outcomes & Goals Goals:: Verbalizes understanding of THR, RPE & goal METS by session 6, Documents in home exercise log/reports 30 min aerobic 5 day/wk by DC, Demonstrates accurate pulse taking by DC and Other additional outcome/goals: see below Intervention & Plan Exercise Program Goals: Instruct on personal THR & RPE, Instruct on MET level & personal MET goal, Show patient to take own pulse /validate performance until accurate, Instruct on home exercise and Other additional plan/int Physical Activity Home Exercise Physical Activity - Home Exercise: Safe Exercise, Warm-up, Self-monitoring, Cool-Down, Home Exercise > 30 min Daily and Sitting Time <3 hours/daily Outcomes & Goals Outcomes/Goals: Demonstrates correct Warm-up/exercise Cool-Down (S3) if = 2.5 METs, Verbalizes symptoms of exercise intolerance by Session 3 (S3), Demonstrate safe equipment use (S3) & follows exercise prescrition (6) and Other: See below Intervention & Plan Plan/Intervention: Instruct warm-up & cool-down if exercising at > 2 METs, Instruct on symptoms of exercise intolerance & actions to take, Instruct & monitor on saf, Assess intial functional capacity & safety risk and Other See below 30-day Reassessments 30 day Reassessments:: Progressing Reassessment Notes & Comments:: Pt has 5 sessions remaining. Pt is progressing her exercise intensity. Will continue to encourage and increase intensity as tolerated. Exercise - Final/Discharge Physician Prescribed Exercise Modalities: SciFit Stepper and SciFit Pro-II Ergometer Nutrition - 30-Day Assessment Weight Mgt (Other Care) Height: 5 ft 4 in Weight:: 208 lb BMI: 35.6 Nutrition - 60-Day Assessment Weight Mgt (Other Care) Height: 5 ft 4 in Weight:: 208 lb BMI: 35.6 Core - 30-Day Assessment Hypertension [place] [employer] Hypertension Guidelines Reassessment Notes & Comments:: Pt's BP has improved. BP's are now within AHA normal limits on some days. Will continue to monitor and report to pt's physician if necessary. 01/28 Coreg increased to 12.5 mg QD. Core - Final Assessment Hypertension [place] [employer] Hypertension Guidelines Reassessment Notes & Comments:: Pt's BP has improved. BP's are now within AHA normal limits on some days. Will continue to monitor and report to pt's physician if necessary. 01/28 Coreg increased to 12.5 mg QD. Core - 90 Day Assessment Visit Date of Eval: 03/03/25 Session #:: 31 Medication Compliance Preventative Medication(s):: Aspirin, Clopidogrel/P2Y12 inhibit, Statin/lipid and Beta sherly H/O mental health issues: depression, anxiety, or addiction?: No Doesn’t believe in the benefits of treatment?: No Believes medications are unnecessary or harmful?: No Has a concern about medication side effects?: No Expresses concern over the cost of medications?: No Outcomes/Goals: Verbalizes medications,desired effect & common side effects @ DC, Pt self-reports following medication regimen, Keeps card in wallet w/medications listed by DC and Other additional outcome/goals: Interventions/plans: Instruct on medication effects & side effects, Review medication list w/patient every two weeks, Instruct importance of taking meds as ordered & assist problem solving and Other additional 30-day Reassessments:: Progressing Reassessment Notes & Comments:: 01/28 Coreg increased to 12.5 mg QD. Tobacco Use Tobacco Use: Non-smoker Years Smokin (Pt stopped 7 years ago) Hypertension Hypertension Diagnosis:: Hypertension ICD-10 I10 Resting Blood Pressure:: 140/70 [place] [employer] Hypertension Guidelines Peak Exercise Blood Pressure:: 146/76 Outcomes/Goals: Able to verbalize/achieve optimal blood pressure <130/80, Incorporates diet changes & exercise for blood pressure control by DC and Other additional outcomes/goals Interventions/plan: Instruct on optimal blood pressure, hypertension & medications, Instruct on effects of sodium, alcohol, stress, exercise &hypertension and Other additional plan/interventions 30 day Reassessments:: Progressing Reassessment Notes & Comments:: Pt's BP has improved. BP's are now within AHA normal limits on some days. Will continue to monitor and report to pt's physician if necessary. 01/28 Coreg increased to 12.5 mg QD. Tobacco Cessation Referral Smoking Cessation Referral:: No Individual Education/Counseling:: No Education Schedule Given:: Yes Psychosocial - 30-Day Assess Referral to Behavioral Health PS - Interventions: Yes: Attend Stress Management Classes Psychosocial - 60-Day Assess Referral to Behavioral Health PS - Interventions: Yes: Attend Stress Management Classes Psychosocial - 90-Day Assess VIsit Date of Eval: 03/03/25 Session #:: 31 History of previous Mental disease:: No Psychosocial Test Tool Used:: PHQ-9 Questionnaire phq-9 Severity See PHQ-9 Score: 1 Referral to Behavioral Health PS - Interventions: Yes: Attend Stress Management Classes Outcomes/Goals: See list Psychosocial Outcomes/Goals:: ID's personal stressors & 2 strategies to manage stress by discharge and Other Additional outcome/goals: Intervention/Plan: See List Interventions/Plan:: Assess stressors,coping strategies & signs of derpression on admission, Instruct/assist pt to develop coping & personal stress Mgt strategies, Refer to Behavioral Health if appropriate, Refer to Physician if appropriate, Instruct patient to recognize signs & symptoms of depression, Instruct patient to recog and Other additional plan/intervention 30-day Reassessments: 30 day Reassessments:: Met Reassessment Notes & Comments:: Pt denies any psychosocial issues at this time. Pt to attend stress management class. Psychosocial - Final Assessmen Referral to Behavioral Health PS - Interventions: Yes: Attend Stress Management Classes Nutrition - 90-Day Assessment Program Goals Nutrition Program Goals Patient has diagnosis of Hyperlipidemia (ICD E78)?: Yes Visit Date of Eval: 03/03/25 Session #:: 31 (Nutrition survey score of 4.) Cholesterol/Lipids (Other Core Measures) Determine presence & major risk factors that modify LDL goal: Cigarette smoking, Hypertension or hypertensive medication, Low HDL cholesterol <40 mg/dL*, Family history of premature CHD in Male < 55 years: female <65 yearsFa and Age men > 45 years; women >/= 55 years Outcomes/Goals: Pt IDs own risk factors & lifestyle modifications by Session 10, Verbalizes symptoms of angina & response by session 3., Pt independently manages and Other Additional Outcomes/Goals: Intervention/Plan: Advocate for lipid panel cholesterol medication if applicable, Instruct on personal lipid levels & lipid goals/NCEP guidelines, Instruct on cholesterol and Other additional plan/int Diabetes (Other Core Measures) Diabetes Type: Diagnosis Type II ICD-10 E11 Insulin dependent injection/pump?: No Non-Insulin Dependent?: Yes Do you monitor your blood sugar at home?: Yes Referral to Diabetic Clinic:: Yes Weight Mgt (Other Care) Height: 5 ft 4 in Weight:: 208 lb BMI: 35.6 Diagnosis Overweight/Obesity BMI> 30% ICD-10 E66: Yes Diagnosis High BMI/Morbid Obesity BMI> 35% ICD-10 Z68: Yes Outcomes/Goals: Pt sets, maintains & shows weight loss goal & trend during rehab and Other additional outcomes/goals Intervention/Plan: Instruct on ideal BMI & set weight loss goal w/patient, Assist pt to ID & incorporate diet changes for weight loss by S9, Refer to Structured Weight Loss program as appropriate, Encourage goal of using 250- 300dcal per session for weight loss and Other additional plan/interventions Healthy Eating Habits Will attend diet classes:: Yes Outcomes/Goals:: Consume diet rich in vegs,fruits,whole grain/high fiber,fish,lean meat, Limit sat/trans fats,cholesterol & added salts & sugars and Other additional outcome/goals: Intervention/Plan:: Assess current eating habits and Other Additional plan/interventions 30-day Reassessments:: Met Reassessment Notes & Comments:: Pt has attended nutrition class. Pt understands the benefits of a hearth healthy low sodium diet. Pt encouraged to keep a food diary for our review. Education Gave educational materials for:: Signs & symptoms of hypoglycemia, Signs & symptoms of hyperglycemia, Relate diabetes to coronary artery disease and Healthy eating Nutrition - Final Assessment Weight Mgt (Other Care) Height: 5 ft 4 in Weight:: 208 lb BMI: 35.6
[2025-03-03 09:05] VITALS: BP 140/70; BMI 35.6
--- NOTE | 2025-03-29 07:14 | CR.ITP_ITS ---
Exercise - Initial Assessment Physician Prescribed Exercise Modalities: SciFit Stepper and SciFit Pro-II Ergometer Nutrition - Initial Assessment Program Goals Nutrition Program Goals Patient has diagnosis of Hyperlipidemia (ICD E78)?: Yes Weight Mgt (Other Care) Height: 5 ft 4 in Weight:: 208 lb BMI: 35.6 Core - Initial Assessment Hypertension Resting Blood Pressure:: 140/60 [place] [employer] Hypertension Guidelines Psychosocial - Initial Assess Psychosocial Test phq-9 Severity See PHQ-9 Score: 1 Referral to Behavioral Health PS - Interventions: Yes: Attend Stress Management Classes Exercise - 30-day Assessment Physician Prescribed Exercise Modalities: SciFit Stepper and SciFit Pro-II Ergometer Exercise - 60-day Assessment Physician Prescribed Exercise Modalities: SciFit Stepper and SciFit Pro-II Ergometer Exercise - 90-day Assessment Physician Prescribed Exercise Modalities: SciFit Stepper and SciFit Pro-II Ergometer Exercise - Final/Discharge Visit Date of Eval: 03/29/25 Session #:: 36 Physician Prescribed Exercise Modalities: SciFit Stepper and SciFit Pro-II Ergometer Frequency: 3x/week for 12 weeks [36 sessions] Intensity: 60-80% of age predicted maximum heart rate reserve Duration: 30 - 45 minutes Current METSs:: 4.9 Target Heart Rate:: 90-120 Current RPE:: 13 Maximum Heart Rate:: 119 Resting Blood Pressure: 140/60 Maximum Exercise Blood Pressure: 142/72 EKG Type: NSR to ST w/ rare PAC and PVC Outcomes & Goals Goals:: Verbalizes understanding of THR, RPE & goal METS by session 6, Documents in home exercise log/reports 30 min aerobic 5 day/wk by DC, Demonstrates accurate pulse taking by DC and Other additional outcome/goals: see below Intervention & Plan Exercise Program Goals: Instruct on personal THR & RPE, Instruct on MET level & personal MET goal, Show patient to take own pulse /validate performance until accurate, Instruct on home exercise and Other additional plan/int Physical Activity Home Exercise Physical Activity - Home Exercise: Safe Exercise, Warm-up, Self-monitoring, Cool-Down, Home Exercise > 30 min Daily and Sitting Time <3 hours/daily Outcomes & Goals Outcomes/Goals: Demonstrates correct Warm-up/exercise Cool-Down (S3) if = 2.5 METs, Verbalizes symptoms of exercise intolerance by Session 3 (S3), Demonstrate safe equipment use (S3) & follows exercise prescrition (6) and Other: See below Intervention & Plan Plan/Intervention: Instruct warm-up & cool-down if exercising at > 2 METs, Instruct on symptoms of exercise intolerance & actions to take, Instruct & monitor on saf, Assess intial functional capacity & safety risk and Other See below 30-day Reassessments 30 day Reassessments:: Met Reassessment Notes & Comments:: Pt has met her exercise goals. Pt was working at 4.9 METS. Pt will be given her exercise prescription as well as community resources to continue his exercise. Pt understands the importance of warming up and cooling down. Pt also understands symptoms of exercise intolerance and how to exercise safely. Nutrition - 30-Day Assessment Weight Mgt (Other Care) Height: 5 ft 4 in Weight:: 208 lb BMI: 35.6 Nutrition - 60-Day Assessment Weight Mgt (Other Care) Height: 5 ft 4 in Weight:: 208 lb BMI: 35.6 Core - 30-Day Assessment Hypertension [place] [employer] Hypertension Guidelines Reassessment Notes & Comments:: BP's did improve while in Cardiac Rehab. Pt had her Coreg increased to 12.5 mg QD. BP's are within AHA normal limits on some days. Pt working with her central melt specialist. Core - Final Assessment Visit Date of Eval: 03/29/25 Session #:: 36 Medication Compliance Preventative Medication(s):: Aspirin, Clopidogrel/P2Y12 inhibit, Statin/lipid and Beta sherly H/O mental health issues: depression, anxiety, or addiction?: No Doesn’t believe in the benefits of treatment?: No Believes medications are unnecessary or harmful?: No Has a concern about medication side effects?: No Expresses concern over the cost of medications?: No Outcomes/Goals: Verbalizes medications,desired effect & common side effects @ DC, Pt self-reports following medication regimen, Keeps card in wallet w/medications listed by DC and Other additional outcome/goals: Interventions/plans: Instruct on medication effects & side effects, Review medication list w/patient every two weeks, Instruct importance of taking meds as ordered & assist problem solving and Other additional Tobacco Use Tobacco Use: Non-smoker Outcomes/Goals: Smoking cessation achieved or maintained by discharge, Identify aids/strategies for achieving smoking cessation by session 6 and Other additional outcome/goals Interventions/plan: Instruct on effects of smoking & provide smoking cessation resource, Assist pt to set quit date & provide encouragement, Assist pt to develop strategies to achieve/maintain quit date, Assist pt w/nicotine replacement & medication for cessation success and Other additional plan/interventions Hypertension Hypertension Diagnosis:: Hypertension ICD-10 I10 Resting Blood Pressure:: 140/60 [place] [employer] Hypertension Guidelines Peak Exercise Blood Pressure:: 142/72 Outcomes/Goals: Able to verbalize/achieve optimal blood pressure <130/80, Incorporates diet changes & exercise for blood pressure control by DC and Other additional outcomes/goals Interventions/plan: Instruct on optimal blood pressure, hypertension & medications, Instruct on effects of sodium, alcohol, stress, exercise &hypertension and Other additional plan/interventions 30 day Reassessments:: Progressing Reassessment Notes & Comments:: BP's did improve while in Cardiac Rehab. Pt had her Coreg increased to 12.5 mg QD. BP's are within AHA normal limits on some days. Pt working with her central melt specialist. Tobacco Cessation Referral Smoking Cessation Referral:: No Individual Education/Counseling:: No Education Schedule Given:: Yes Core - 90 Day Assessment Hypertension [place] [employer] Hypertension Guidelines Reassessment Notes & Comments:: BP's did improve while in Cardiac Rehab. Pt had her Coreg increased to 12.5 mg QD. BP's are within AHA normal limits on some days. Pt working with her central melt specialist. Core - 60-Day Assessment Hypertension Resting Blood Pressure:: 140/60 [place] [employer] Hypertension Guidelines Psychosocial - 30-Day Assess Referral to Behavioral Health PS - Interventions: Yes: Attend Stress Management Classes Psychosocial - 60-Day Assess Referral to Behavioral Health PS - Interventions: Yes: Attend Stress Management Classes Psychosocial - 90-Day Assess Referral to Behavioral Health PS - Interventions: Yes: Attend Stress Management Classes Psychosocial - Final Assessmen VIsit Date of Eval: 03/29/25 Session #:: 36 History of previous Mental disease:: No Psychosocial Test Tool Used:: [employer] QOL Cardiac and PHQ-9 Questionnaire phq-9 Severity See PHQ-9 Score: 1 Referral to Behavioral Health PS - Interventions: Yes: Attend Stress Management Classes Outcomes/Goals: See list Psychosocial Outcomes/Goals:: ID's personal stressors & 2 strategies to manage stress by discharge and Other Additional outcome/goals: Intervention/Plan: See List Interventions/Plan:: Assess stressors,coping strategies & signs of derpression on admission, Instruct/assist pt to develop coping & personal stress Mgt strategies, Refer to Behavioral Health if appropriate, Refer to Physician if appropriate, Instruct patient to recognize signs & symptoms of depression, Instruct patient to recog and Other additional plan/intervention 30-day Reassessments: 30 day Reassessments:: Met Reassessment Notes & Comments:: Pt denies any psychosocial issues at this time. Pt attended stress management class. Nutrition - 90-Day Assessment Weight Mgt (Other Care) Height: 5 ft 4 in Weight:: 208 lb BMI: 35.6 Nutrition - Final Assessment Program Goals Patient has diagnosis of Hyperlipidemia (ICD E78)?: Yes Visit Date of Assessment:: 03/29/25 Session #:: 36 (Nutrition survey score of 4.) Cholesterol/Lipids (Other Core Measures) Determine presence & major risk factors that modify LDL goal: Cigarette smoking, Hypertension or hypertensive medication, Low HDL cholesterol <40 mg/dL*, Family history of premature CHD in Male < 55 years: female <65 yearsFa and Age men > 45 years; women >/= 55 years Outcomes/Goals: Pt IDs own risk factors & lifestyle modifications by Session 10, Verbalizes symptoms of angina & response by session 3., Pt independently manages and Other Additional Outcomes/Goals: Intervention/Plan: Advocate for lipid panel cholesterol medication if applicable, Instruct on personal lipid levels & lipid goals/NCEP guidelines, Instruct on cholesterol and Other additional plan/int Diabetes (Other Core Measures) Diabetes Type: Diagnosis Type II ICD-10 E11 Non-Insulin Dependent?: No Do you monitor your blood sugar at home?: Yes Weight Mgt (Other Care) Height: 5 ft 4 in Weight:: 208 lb BMI: 35.6 Diagnosis Overweight/Obesity BMI> 30% ICD-10 E66: Yes Diagnosis High BMI/Morbid Obesity BMI> 35% ICD-10 Z68: Yes Outcomes/Goals: Pt sets, maintains & shows weight loss goal & trend during rehab and Other additional outcomes/goals Intervention/Plan: Instruct on ideal BMI & set weight loss goal w/patient, Assist pt to ID & incorporate diet changes for weight loss by S9, Refer to Structured Weight Loss program as appropriate, Encourage goal of using 250- 300dcal per session for weight loss and Other additional plan/interventions Healthy Eating Habits Will attend diet classes:: Yes Outcomes/Goals:: Consume diet rich in vegs,fruits,whole grain/high fiber,fish,lean meat, Limit sat/trans fats,cholesterol & added salts & sugars and Other additional outcome/goals: Intervention/Plan:: Assess current eating habits and Other Additional plan/inter ventions 30-day Reassessments:: Met Reassessment Notes & Comments:: Pt has attended nutrition class. Pt understands the benefits of a hearth healthy low sodium diet. Pt has been given the tools to maintain a healthy diet. Education Gave educational materials for:: Signs & symptoms of hypoglycemia, Signs & symptoms of hyperglycemia, Relate diabetes to coronary artery disease and Healthy eating
[2025-03-29 07:29] VITALS: BP 140/60; BMI 35.6
== END 2025-03-25 23:59 ==
LOC: CR 11:15
PROVIDERS: PCP Family Medicine; Referring Provider Internal Medicine Cardiovascular Disease; Visit Provider Internal Medicine Cardiovascular Disease
DX: Z95.5 Presence of coronary angioplasty implant and graft (principal); I21.4 Non-ST elevation (NSTEMI) myocardial infarction; N18.32 Chronic kidney disease, stage 3b; I10 Essential (primary) hypertension; E78.00 Pure hypercholesterolemia, unspecified; E11.9 Type 2 diabetes mellitus without complications
CPT/HCPCS: 93798

== ENCOUNTER → 2025-04-07 | Outpatient (CLI) | payer MEDICARE, SELFPAY ==
[2025-03-03 09:05] VITALS: BMI 35.6
[2025-03-29 07:29] VITALS: BMI 35.6
--- NOTE | 2025-04-07 08:55 | ECHOLC_ITS ---
Reason For Study ECHO/Echo Limited w/Contrast
== END | disposition home or self-care (01) ==
LOC: CVS 08:55
PROVIDERS: PCP Family Medicine; Referring Provider Nurse Practitioner Family; Visit Provider Nurse Practitioner Family
DX: I10 Essential (primary) hypertension (principal)
CPT/HCPCS: 93308; Q9957; A4216; C8924

== ENCOUNTER 2025-04-19 08:00 | Outpatient (RCR) | payer SELFPAY ==
[2025-03-03 09:05] VITALS: BMI 35.6
[2025-03-29 07:29] VITALS: BMI 35.6
== END 2025-04-24 23:59 ==
LOC: CR 08:00
PROVIDERS: PCP Family Medicine; Referring Provider Internal Medicine Cardiovascular Disease; Visit Provider Internal Medicine Cardiovascular Disease
DX: Z00.00 Encounter for general adult medical examination without abnormal findings (principal)

== ENCOUNTER 2025-04-25 09:55 | Outpatient (RCR) | payer MEDICARE, SELFPAY ==
[2025-02-23 00:27] VITALS: BMI 36.0
[2025-03-29 07:29] VITALS: BMI 35.6
== END 2025-05-25 23:59 ==
LOC: NS 09:55
PROVIDERS: PCP Family Medicine; Referring Provider Internal Medicine Cardiovascular Disease; Visit Provider Internal Medicine Cardiovascular Disease
DX: Z71.3 Dietary counseling and surveillance (principal); E11.9 Type 2 diabetes mellitus without complications; E78.00 Pure hypercholesterolemia, unspecified
CPT/HCPCS: 97803

== ENCOUNTER 2025-04-26 08:45 | Outpatient (RCR) | payer SELFPAY ==
[2025-03-29 07:29] VITALS: BMI 35.6
== END 2025-05-25 23:59 ==
LOC: CR 08:45
PROVIDERS: PCP Family Medicine; Referring Provider Internal Medicine Cardiovascular Disease; Visit Provider Internal Medicine Cardiovascular Disease
DX: Z00.00 Encounter for general adult medical examination without abnormal findings (principal)

== ENCOUNTER → 2025-05-12 | Outpatient (CLI) | payer MEDICARE, SELFPAY ==
[2025-03-29 07:29] VITALS: BMI 35.6
--- OUTSIDE RECORDS SUMMARY | 2025-05-12 20:22 | XMS RPT_ITS | CCD ---
Author Organization [facility] Care Team Providers Care Vessel Ordinary Seaman Name Role Phone Unavailable Primary Care Provider Moshe Hogan MD Primary Care Provider BRIDENTHAL PATIENT SERVICE REPRESENTATIVE/TRAFFIC WORKFORCE REPRESENTATIVE, SEDRICK Primary Care Physic vu BRIDENTHAL PATIENT SERVICE REPRESENTATIVE/TRAFFIC WORKFORCE REPRESENTATIVE, SEDRICK Attending Farnaz vailable BRIDENTHAL PATIENT SERVICE REPRESENTATIVE/TRAFFIC WORKFORCE REPRESENTATIVE, SEDRICK Primary Care Farnaz vailable Isaac DURAND, KIZZY Baker Attending Provider Bridenthal PATIENT SERVICE REPRESENTATIVE - TRAFFIC WORKFORCE REPRESENTATIVE, Sedrick Primary Care Prov ider Moshe Key MD Primary Care Provider BRIDENTHAL PATIENT SERVICE REPRESENTATIVE/TRAFFIC WORKFORCE REPRESENTATIVE, SEDRICK Attending Farnaz vailable BRIDENTHAL PATIENT SERVICE REPRESENTATIVE/TRAFFIC WORKFORCE REPRESENTATIVE, SEDRICK Primary Care Farnaz vailable Dr. Moshe Key MD Primary Care Provider [phone] Dr. Moshe Key MD Referring Provider Enriqueta Tierney Attending Provider Jonah KRISHNAMURTHY, Dr. Grider Attending Provider Dr. Arnold Morton MD Attending Provider Dr. Arnold Morton MD Referring Provider Tabby Webster Attending Provider Dr. Moshe Key MD Primary Care Provider Dr. Arnold Morton MD Attending Provider Dr. Arnold Morton MD Referring Provider Dr. Moshe Key MD Referring Provider Dr. Keaton Sotelo DO Emergency Provider Desi KRISHNAMURTHY, Dr. Calista Mcnamara Admit Provider Desi KRISHNAMURTHY, Dr. Calista Mcnamara Other Provider Florecita KRISHNAMURTHY, Dr. Omer Other Provider Unavailable Dr. Basim Cheema DO Attending Provider Jonah KRISHNAMURTHY, Dr. Grider Attending Provider Rosalio TONY, Dr. Stallworth Other Provider Shanta KRISHNAMURTHY, Dr. Hebert Attending Provider Jonah KRISHNAMURTHY, Dr. Grider Referring Provider Meet ZELAYA-C, Rula Schumacher Attending Provider Yesi KRISHNAMURTHY, Dr. Mesa Primary Care Provider Joe KRISHNAMURTHY, Dr. Casper Attending Provider Joe KRISHNAMURTHY, Dr. Casper Referring Provider Yesi KRISHNAMURTHY, Dr. Mesa Referring Provider Yesi KRISHNAMURTHY, Dr. Mesa Primary Care Physician Deepak TONY, Dr. Pugh Emergency Department Physici an Desi KRISHNAMURTHY, Dr. Calista Mcnamara Admitting Physician Desi KRISHNAMURTHY, Dr. Calista Mcnamara Nurse Practitioner Florecita KRISHNAMURTHY, Dr. Omer Nurse Practitioner Unavail le Rosalio TONY, Dr. Stallworth Attending Physician Jonah KRISHNAMURTHY, Dr. Grider Attending Physician Joe KRISHNAMURTHY, Dr. Casper Attending Physician Dr. Basim Cheema DO Nurse Practitioner Shanta KRISHNAMURTHY, Dr. Hebert Attending Physician Meet ZELAYA-CRula Attending Physician Hi ZELAYA-CTabby Attending Physician Yesi KRISHNAMURTHY, Dr. Mesa Primary Care Physician [phone] Keaton Sotelo DO Emergency Department Physici an Desi KRISHNAMURTHY, Dr. Calista Mcnamara Admitting Physician Desi KRISHNAMURTHY, Dr. Calista Mcnamara Nurse Practitioner Florecita KRISHNAMURTHY, Dr. Omer Nurse Practitioner Unavailab le Rosalio TONY, Dr. Stallworth Attending Physician Jonah KRISHNAMURTHY, Dr. Grider Attending Physician Joe KRISHNAMURTHY, Dr. Casper Attending Physician Joe KRISHNAMURTHY, Dr. Casper Referring Provider Rosalio TONY, Dr. Stallworth Nurse Practitioner Shanta KRISHNAMURTHY, Dr. Hebert Attending Physician Jonah KRISHNAMURTHY, Dr. Grider Referring Provider Yesi KRISHNAMURTHY, Dr. Mesa Referring Provider Meet TEXTBOOK ASSOCIATE-CRula Attending Physician Hi TEXTBOOK ASSOCIATE-CTabby Attending Physician BRIDENTHAL, SEDRICK Attending Unavailable YESI, MOSHE Primary Care Unavailable YESI, MOSHE Primary Care Unavailable BRIDENTHAL, SEDRICK Attending Unavailable YESI, MOSHE Primary Care Unavailable YESI, MOSHE Primary Care Unavailable YESI, MOSHE Attending Unavailable BRIDENTHAL, SEDRICK Attending Unavailable YESI, MOSHE Primary Care Unavailable YESI, MOSHE Primary Care Unavailable YESI, MOSHE Primary Care Unavailable YESI, MOSHE Attending Unavailable YESI, MOSHE Primary Care Unavailable YESI, MOSHE Primary Care Unavailable BRIDENTHAL, SEDRICK Attending Unavailable BRIDENTHAL, SEDRICK Referring Unavailable YESI, MOSHE Primary Care Unavailable Connie Ruelas Attending Unavailable Yesi, Moshe Referring Unavailable Yesi, Moshe Primary Care Unavailable Yesi, Moshe Primary Care Unavailable Jonah, [place]ss[place] Attending Unavailable Jonah, [place] Referring Unavailable Yesi, Moshe Primary Care Unavailable Jonah, [place] Attending Unavailable Jonah, Cheo Referring Unavailable Yesi, Moshe Primary Care Unavailable Jonah, [place] Attending Unavailable Yesi, Moshe Primary Care Unavailable Jonah, Cheo Referring Unavailable Jonah, [place] Attending Unavailable Yesi, Moshe Primary Care Unavailable Jonah, Cheo Referring Unavailable Jonah, Cheo Attending Unavailable Yesi, Moshe Primary Care Unavailable Jonah, Cheo Referring Unavailable Jonah, Cheo Attending Unavailable Florecita Ahmad Consulting Unavailable Basim Cheema Attending Unavailable White, Calista L Admitting Unavailable Yesi, Moshe Primary Care Unavailable White, Calista L Consulting Unavailable Yesi, Moshe Primary Care Unavailable Jonah, Cheo Referring Unavailable Jonah, [place] Attending Unavailable Do, Tabby Attending Unavailable Yesi, Moshe Primary Care Unavailable Yesi, Moshe Referring Unavailable White, Calista L Attending Unavailable White, Calista L Consulting Unavailable White, Calista L Admitting Unavailable Yesi, Moshe Primary Care Unavailable Joe, Pennie Referring Unavailable Joe, Pennie Attending Unavailable Yesi, Moshe Primary Care Unavailable Yesi, Moshe Referring Unavailable Barbi Doe Attending Unavailable Yesi, Moshe Primary Care Unavailable Jonah, [place] Attending Unavailable Roof TEXTBOOK ASSOCIATE, Rula Schumacher Referring Unavailable Roof TEXTBOOK ASSOCIATE, Rula Schumacher Attending Unavailable Yesi, Moshe Primary Care Unavailable Morton, Arnold Attending Unavailable Yesi, Moshe Primary Care Unavailable Morton, Arnold Referring Unavailable Jonah, [place] Referring Unavailable Yesi, Moshe Primary Care Unavailable Jonah, [place] Attending Unavailable Yesi, Moshe Primary Care Unavailable Jonah, [place] Attending Unavailable Jonah, Cheo Referring Unavailable Yesi, Moshe Primary Care Unavailable Jonah, [place] Attending Unavailable Yesi, Moshe Primary Care Unavailable Jonah, Cheo Attending Unavailable Morton, Arnold Attending Unavailable Yesi, Moshe Primary Care Unavailable Yesi, Moshe Referring Unavailable Morton, Arnold Attending Unavailable Yesi, Moshe Primary Care Unavailable Yesi, Moshe Referring Unavailable Yesi, Moshe Primary Care Unavailable Jonah, Cheo Referring Unavailable Jonah, [place] Attending Unavailable Enriqueta Houston Attending Unavailable Yesi, Moshe Primary Care Unavailable Yesi, Moshe Referring Unavailable Morton, Arnold Attending Unavailable Morton, Arnold Referring Unavailable Yesi, Moshe Primary Care Unavailable Roof TEXTBOOK ASSOCIATE, Rula Schumacher Attending Unavailable Yesi, Moshe Referring Unavailable Yesi, Moshe Primary Care Unavailable Barbi Doe Attending Unavailable Yesi, Moshe Primary Care Unavailable Yesi, Moshe Referring Unavailable Roof TEXTBOOK ASSOCIATE, Rula H Attending Unavailable Yesi, Moshe Primary Care Unavailable Yesi, Moshe Referring Unavailable Yesi, Moshe Primary Care Unavailable Jonah Cheo Attending Unavailable Yesi, Moshe Primary Care Unavailable Enriqueta Houston Attending Unavailable Yesi, Moshe Referring Unavailable Arnold Morton Attending Unavailable Yesi, Moshe Primary Care Unavailable Yesi, Moshe Referring Unavailable Kan Bernabe Consulting Unavailable Anup Womack Attending Unavailable Basim Cheema Consulting Unavailable Basim Cheema Attending Unavailable Yesi, Moshe Primary Care Unavailable Jonah, Cheo Attending Unavailable Jonah, [place] Referring Unavailable Allergies Allergy Classification Reported Allergen(s) Allergy Type Date of Onset Reaction(s) Facility Dihydrofolate Reductase Inhibitors (antibiotic) (1 source) Trimethoprim Drug Allergy 07-01-19 24 Nausea And Vomiting [facility] Opioid Agonists (1 source) Codeine Drug Allergy 04-02-20 23 Dizziness, Vomiting Only, Nausea And Vomiting [facility] Sulfamethoxazole / Trimethoprim (1 source) Sulfamethoxazole / Trimethoprim Drug Allergy 04-02-20 23 Vomiting Only [facility] (20 sources) Codeine Drug Allergy 04-02-20 23 Dizziness, Vomiting Only, Nausea And Vomiting [facility] (20 sources) Sulfamethoxazole / Trimethoprim Drug Allergy 04-02-20 23 Vomiting Only [facility] (13 sources) Sulfamethoxazole Drug Allergy 07-01-19 24 Vomiting [facility] (20 sources) Trimethoprim Drug Allergy 07-01-19 24 Nausea And Vomiting [facility] (20 sources) Sulfamethoxazole Allergy to substance 07-01-19 24 Nausea And Vomiting [facility] (19 sources) atorvastatin Drug Allergy 12-28-19 25 [facility] (4 sources) atorvastatin Drug Allergy 02-23-20 25 [facility] (1 source) atorvastatin Drug Allergy 03-14-20 25 [facility] (1 source) Codeine Drug Allergy 03-14-20 25 [facility] (1 source) Sulfamethoxazole Drug Allergy 03-14-20 25 [facility] (1 source) Trimethoprim Drug Allergy 03-14-20 25 [facility] Medications Current Medications Medication Drug Class(es) Dates Sig (Normalized) Sig (Original) aspirin 81 mg oral tablet (20 sources) Platelet Aggregation Inhibitor, Nonsteroidal Anti-inflammatory Drug Start: 12-07-2024 take 81 mg by mouth once daily ASPIRIN 81 PO Take 81 mg by mouth daily. 12/07/2024 Active Start: 12-07-2024 take 1 tablet by mouth at [facility] carvedilol 25 mg oral tablet (20 sources) alpha-Adrenergic Sherly, beta-Adrenergic Sherly Start: 03-30-2025 take 1 tablet by mouth twice daily at mealtime carvedilol (Coreg) 25 MG tablet Indications: Primary hypertension Take 1 tablet (25 mg) by mouth 2 times daily (with meals). 03/30/2025 Active Start: 03-18-2025 take 1 tablet by shae th twice daily at mealtime Start: 03-14-2025 End: 03-18-2025 take 1 tablet by mouth twice daily at mealtime Carvedilol 25 mg tablet Discontinued 25 mg PO TWICE A DAY 60 March 18, 2025 9:43am March 18, 2025 9:43am must administer with a meal/food Start: 01-27-2025 End: 03-30-2025 take 1 tablet by mouth twice daily at mealtime carvedilol (Coreg) 12.5 MG tablet Take 1 tablet (12.5 mg) by mouth 2 times daily (with meals). 02/04/2025 03/30/2025 Discontinued Start: 01-17-2025 End: 01-27-2025 take 1 tablet by mouth twice daily at mealtime Carvedilol 6.25 mg tablet Discontinued 6.25 mg PO TWICE A DAY 60 January 16, 2025 11:00pm January 27, 2025 8:00am must administer with a meal/food Start: 12-07-2024 End: 02-04-2025 take 1 tablet by mouth twice daily Carvedilol 3.125 mg tablet Discontinued 3.125 mg PO TWICE A DAY 180 December 13, 2024 9:13am January 17, 2025 1:13pm cholecalciferol 0.05 mg oral tablet (20 sources) Vitamin D Start: 12-13-2024 take 1 tablet by shae th once daily take 50 mg by mouth once daily C holecalciferol (D3-50 PO) Take 50 mg by mouth daily. Active clopidogrel 75 mg oral tablet (20 sources) P2Y12 Platelet Inhibitor Start: 12-07-2024 End: 06-26-2025 take 1 tablet by mouth once daily clopidogrel (Plavix) 75 MG tablet Take 1 tablet (75 mg) by mouth daily. 90 tablet 1 12/28/2024 06/26/2025 Active DIGESTIVE ENZYMES PO (20 sources) DIGESTIVE ENZYME S PO Take 175 mg by mouth in the morning and 175 mg at noon and 175 mg in the evening. Active DIGESTIVE ENZYME S PO Take 175 mg by mouth in the morning and 175 mg at noon and 175 mg in the evening. 0 Active Digestive Enzymes tablet (12 sources) Start: 03-15-2024 take 1 tablet by shae th three times daily Start: 03-15-2024 take 1 tablet by shae th three times daily Start: 03-15-2024 take 1 tablet by shae th three times daily Digestive Enzymes tablet Active 1 {tbl} PO THREE TIMES A DAY March 15, 2024 12:00am supplement Start: 03-15-2024 take 1 tablet by shae th three times daily Digestive Enzymes tablet Active 1 {tbl} PO THREE TIMES A DAY March 15, 2024 12:00am ferrous sulfate 325 mg oral tablet (20 sources) Start: 12-13-2024 take 1 tablet by shae th once daily take 65 mg by mouth once daily F errous Sulfate (IRON PO) Take 65 mg by mouth daily. Active End: 05-04-2024 take 1 tablet by mouth every other day ferrous sulfate 325 (65 Fe) MG tablet Take 325 mg by mouth every other day. 05/04/2024 Discontinued (Therapy completed) Fish Oils (20 sources) take 1 capsule by mo [facility] once daily omega-3 (Fish Oil) 1200 MG capsule Take 1,200 mg by mouth daily. Active take 1 capsule by mouth once diego ly omega-3 (Fish Oil) 1200 MG capsule Take 1,200 mg by mouth daily. 0 Active furosemide 40 mg oral tablet (20 sources) Loop Diuretic Start: 01-06-2025 End: 01-11-2025 take 1 tablet by mouth once daily furosemide (Lasix) 40 MG tablet Take 40 mg by mouth daily. 01/11/2025 Active Start: 01-31-2023 End: 12-07-2024 take 1 tablet by mouth once daily Furosemide 20 mg tablet Discontinued 20 mg PO DAILY January 15, 2024 11:00pm December 07, 2024 10:12am ipratropium bromide 0.042 mg/actuat metered dose nasal spray (20 sources) Anticholinergic Start: 12-27-2024 End: 01-10-2025 take 2 spray(s) nasal route three times daily ipratropium (Atrovent) 0.06 % nasal spray Indications: Post-nasal drainage Administer 2 sprays into each nostril 3 times daily for 7 days. 15 mL 01/03/2025 Active Start: 07-05-2024 End: 07-12-2024 take 2 spray(s) nasal route three times daily ipratropium (Atrovent) 0.06 % nasal spray Indications: Post-nasal drainage Administer 2 sprays into each nostril 3 times daily for 7 days. 15 mL 07/05/2024 Active levothyroxine sodium 0.15 mg oral tablet (20 sources) l-Thyroxine Start: 05-06-2024 End: 03-21-2025 take 1 tablet by mouth once daily before breakfast levothyroxine (Synthroid, Levoxyl) 150 MCG tablet Indications: Hypothyroidism, unspecified type TAKE 1 TABLET BY MOUTH EVERY MORNING BEFORE BREAKFAST 100 tablet 2 11/30/2024 Active Start: 01-16-2024 End: 08-11-2024 take 1 tablet by mouth once daily before breakfast levothyroxine (Synthroid, Levoxyl) 100 MCG tablet Indications: Hypothyroidism, unspecified type Take 1 tablet (100 mcg) by mouth every morning (before breakfast). 90 tablet 1 02/13/2024 08/11/2024 Active Start: 01-16-2024 End: 12-13-2024 take 2 capsules by mouth once daily Levothyroxine 75 mcg capsule Discontinued 150 ug PO DAILY January 15, 2024 11:00pm December 13, 2024 8:38am thyroid Start: 01-11-2023 End: 01-15-2024 take 1 tablet by mouth once daily before breakfast levothyroxine (Synthroid, Levoxyl) 75 MCG tablet Indications: Hypothyroidism, unspecified type Take 1 tablet (75 mcg) by mouth every morning (before breakfast). 90 tablet 1 12/03/2023 01/15/2024 Discontinued (Reorder) metFORMIN hydrochloride 1000 mg oral tablet (20 sources) Biguanide Start: 12-27-2024 take 1 tablet by mouth in the morning metFORMIN (Glucophage) 1000 MG tablet TAKE 1 TABLET BY MOUTH IN THE MORNING AND 1 TABLET BY MOUTH IN THE EVENING TAKE WITH MEALS 200 tablet 1 12/27/2024 Active Start: 03-15-2024 Start: 03-14-2023 End: 06-02-2024 take 1 tablet by mouth in the morning metFORMIN (Glucophage) 1000 MG tablet TAKE 1 TABLET BY MOUTH IN THE MORNING AND 1 TABLET BY MOUTH IN THE EVENING TAKE WITH MEALS 200 tablet 1 12/27/2024 Active NON FORMULARY (20 sources) NON FORMULARY Ac tive take 1 tablet by mouth once roya [...] 3 tablets daily po 0 Active nystatin [id number] unt/ml topic al cream (20 sources) Polyene Antifungal Start: 12-13-2024 Start: 06-10-2024 End: 12-31-2024 nystatin (Mycostatin) cream APPLY TOPICALLY TO AFFECTED AREA(S) TWICE DAILY 120 g 2 12/31/2024 Active Start: 01-16-2024 End: 03-15-2024 Nystatin 100,000 unit/gram c ream Discontinued TOPICAL January 15, 2024 11:00pm March 15, 2024 1:10pm Start: 12-10-2023 End: 06-10-2024 nystatin (Mycostatin) cream Apply topically 2 times daily. 30 g 3 12/10/2023 06/10/2024 Discontinued Start: 10-22-2022 End: 12-09-2023 nystatin (Mycostatin) cream 10/22/2022 12/09/2023 Discontinued (Reorder) Yawkey 2-Ucw-Hqi-Fish Oil (Fi sh Oil) 1,200 (144-216) mg capsule (12 sources) Start: 01-16-2024 Start: 01-16-2024 Start: 01-16-2024 Yawkey 3-Dha-Ep a-Fish Oil (Fish Oil) 1,200 (144-216) mg capsule Active 1 NMA PO DAILY January 16, 2024 12:00am supplement Start: 01-16-2024 Yawkey 3-Dha-Ep a-Fish Oil (Fish Oil) 1,200 (144-216) mg capsule [...] 11/10/2024 Active Omeprazole 40 mg capsule,delayed release(DR/EC) (2 sources) Start: 01-16-2024 take 1 capsule by mouth once daily Omeprazole 40 mg capsule,delayed release(DR/EC) Active 40 mg PO daily January 16, 2024 12:00am rosuvastatin calcium 20 mg oral tablet (20 sources) HMG-CoA Reductase Inhibitor Start: 12-28-2024 End: 01-26-2025 take 1 tablet by mouth at bedtime Start: 07-07-2024 End: 12-28-2024 take 1 tablet by mouth at bedtime Rosuvastatin 10 mg tablet Discontinued 10 mg PO AT BEDTIME September 22, 2024 11:00pm December 07, 2024 10:14am traMADol hydrochloride 50 mg oral tablet (4 [...] 20 tablet 0 09/03/2023 09/08/2023 Active Vit I-R-M8-Nrfx-S-Ohjn-Qu ercet (Immune Essentials Daily) 750 mcg-150 mg- 31.25 mcg capsule (12 sources) Start: 03-15-2024 Start: 03-15-2024 Start: 03-15-2024 Vit A-C-D3-Zin a-M-Hiod-Quercet (Immune Essentials Daily) 750 mcg-150 mg- 31.25 mcg capsule Active 1 NMA PO THREE TIMES A DAY March 15, 2024 12:00am supplement Start: 03-15-2024 Vit A-C-D3-Zin f-F-Coid-Quercet (Immune Essentials Daily) 750 mcg-150 mg- 31.25 mcg capsule Active 1 NMA PO THREE TIMES A DAY March 15, 2024 12:00am vitamin e 180 mg oral capsul e (20 sources) Start: 01-16-2024 take 1 capsule by mo uth once daily take 1 capsule by mouth once diego ly Vitamin E 450 MG (1000 UT) capsule Take 450 mg by mouth daily. Active Completed/Discontinued Medications Medication Drug Class(es) Dates Sig (Normalized) Sig (Original) acetaminophen 500 mg oral tablet (20 sources) Start: 12-13-2024 End: 02-22-2025 take 1 tablet by mouth three times daily Acetaminophen 500 mg tablet Discontinued 500 mg PO THREE TIMES A DAY December 13, 2024 9:40am February 22, 2025 10:31am pain Start: 03-30-2024 End: 12-13-2024 take 1 tablet by mouth every six hours Acetaminophen 500 mg Tablet Discontinued 500 mg PO EVERY 6 HOURS 30 0 March 30, 2024 12:00am December 13, 2024 8:43am pain Start: 03-15-2024 End: 03-30-2024 take 2 capsules by mouth every six hours as needed for pain Acetaminophen 500 mg capsule Discontinued 1000 mg PO EVERY 6 HOURS as needed for pain March 14, 2024 11:00pm March 30, 2024 11:15am ALPRAZolam 0.25 mg oral tablet (3 sources) Benzodiazepine Start: 01-31-2023 End: 04-23-2023 take 1 tablet by mouth once as needed for anxiety ALPRAZolam (Xanax) 0.25 MG tablet TAKE ONE TABLET BY MOUTH EVERY TWELVE HOURS NEEDED FOR ANXIETY 0 01/31/2023 04/02/2023 Discontinued amoxicillin 500 mg oral tablet (17 sources) Penicillin-class Antibacterial Start: 12-27-2024 End: 03-30-2025 amoxicillin (Amoxil) 500 MG tablet 12/27/2024 03/30/2025 Discontinued amoxicillin 875 mg / clavulanate 125 mg oral tablet (12 sources) Penicillin-class Antibacterial Start: 02-05-2024 End: 02-15-2024 Amoxicillin-Pot Clavulanate 875-125 mg tablet Discontinued 1 {tbl} PO Q12H 20 10 February 04, 2024 11:00pm February 13, 2024 11:00pm February 14, 2024 11:05pm Acute sinusitis, unspecified atorvastatin 20 mg oral tablet (20 sources) HMG-CoA Reductase Inhibitor Start: 12-07-2024 End: 02-22-2025 take 1 tablet by mouth at bedtime Atorvastatin 20 mg tablet Discontinued 20 mg PO AT BEDTIME 90 3 December 13, 2024 9:12am February 22, 2025 9:30am On Hold: None Start: 07-02-2024 End: 09-23-2024 take 1 tablet by mouth once daily Atorvastatin 20 mg tablet Discontinued 20 mg PO daily July 02, 2024 12:00am September 23, 2024 12:21pm Start: 05-06-2024 End: 06-05-2024 take 1 tablet by mouth once daily atorvastatin (Lipitor) 20 MG tablet Indications: Mixed hyperlipidemia Take 1 tablet (20 mg) by mouth daily. 30 tablet 05/06/2024 Active Start: 01-16-2024 End: 07-02-2024 take 1 tablet by mouth once daily Atorvastatin 10 mg tablet Discontinued 10 mg PO DAILY January 15, 2024 11:00pm July 02, 2024 11:30am Start: 01-11-2023 End: 12-03-2023 take 1 tablet by mouth once daily atorvastatin (Lipitor) 10 MG tablet Indications: Mixed hyperlipidemia Take 1 tablet (10 mg) by mouth daily. 90 tablet 1 12/03/2023 Active benzonatate 100 mg oral capsule (12 sources) Non-narcotic Antitussive Start: 02-05-2024 End: 03-15-2024 take 2 capsules by mouth three times daily as needed for cough Benzonatate 100 mg capsule Discontinued 200 mg PO THREE TIMES A DAY as needed for cough February 04, 2024 11:00pm March 15, 2024 1:11pm calcium chloride 0.0014 meq/ml / potassium chloride 0.004 meq/ml / sodium chloride 0.103 meq/ml / sodium lactate 0.028 meq/ml injectable solution (2 sources) Start: 09-03-2023 End: 09-03-2023 lactated Ringer's (LR) infusion chlorthalidone 25 mg oral tablet (20 sources) Thiazide-like Diuretic Start: 01-11-2023 End: 12-07-2024 take 1 tablet by mouth once daily Chlorthalidone 25 mg tablet Discontinued 25 mg PO DAILY January 15, 2024 11:00pm December 07, 2024 10:12am 1 ml diphenhydrAMINE hydrochloride 50 mg/ml cartridge (2 sources) Histamine-1 Receptor Antagonist Start: 09-03-2023 End: 09-03-2023 diphenhydrAMINE (BENADryl) injection 12.5 mg docusate sodium 50 mg / sennosides, halfway 8.6 mg oral tablet (12 sources) Start: 03-30-2024 End: 04-15-2024 Sennosides-Docusate Sodium (Stimulant Laxative Plus) 8.6-50 mg Tablet Discontinued 2 {tbl} PO TWICE A DAY as needed for constipation 30 0 March 30, 2024 11:17am April 15, 2024 1:32pm empagliflozin 10 mg oral tablet (2 sources) Sodium-Glucose Cotransporter 2 Inhibitor Start: 03-30-2025 End: 04-05-2025 take 1 tablet by mouth once daily empagliflozin (Jardiance) 10 MG Indications: Type 2 diabetes mellitus without complication, without long-term current use of insulin (HCC) Take 1 tablet (10 mg) by mouth daily. 30 tablet 2 03/30/2025 04/05/2025 Discontinued (Cost of medication) ergocalciferol 1.25 mg oral capsule (20 sources) Provitamin D2 Compound Start: 03-15-2024 End: 12-13-2024 Ergocalciferol (Vitamin D2) (Vitamin D2) 1,250 mcg (50,000 unit) capsule Discontinued 1250 ug PO EVERY WEEK March 14, 2024 11:00pm December 13, 2024 8:40am vitamin Start: 01-16-2024 End: 04-09-2024 take 1 capsule by mouth every week ergocalciferol (Vitamin D-2) 1.25 MG (97232 UT) capsule Indications: Vitamin D deficiency Take 1 capsule (1.25 mg) by mouth 1 (one) time per week. 12 capsule 01/16/2024 04/09/2024 Active fenofibrate 160 mg oral tablet (20 sources) Peroxisome Proliferator Receptor alpha Agonist Start: 06-04-2024 End: 12-13-2024 take 1 tablet by mouth once daily Fenofibrate 160 mg tablet Discontinued 160 mg PO daily July 02, 2024 12:00am December 13, 2024 8:42am cholesterol 1 ml HYDROmorphone hydrochloride 1 mg/ml cartridge (4 sources) Opioid Agonist Start: 09-03-2023 End: 09-03-2023 HYDROmorphone (Dilaudid) injection 0.5 mg Start: 09-03-2023 End: 09-03-2023 HYDROmorphone (Dilaudid) inj ection 0.25 mg indomethacin 50 mg oral capsule (20 sources) Nonsteroidal Anti-inflammatory Drug Start: 03-14-2023 End: 05-13-2024 Indomethacin 50 mg capsule Discontinued 50 mg PO 1700 January 15, 2024 11:00pm May 13, 2024 1:41pm irbesartan 300 mg oral tablet (20 sources) Angiotensin 2 Receptor Sherly Start: 01-11-2023 End: 12-07-2024 take 1 tablet by mouth once daily Irbesartan 300 mg tablet Discontinued 300 mg PO DAILY January 15, 2024 11:00pm December 07, 2024 10:13am labetalol (Normodyne,Trandate ) injection 5 mg (2 sources) Start: 09-03-2023 End: 09-03-2023 labetalol (Normodyne,Tranda te) injection 5 mg 10 ml lidocaine hydrochloride 20 mg/ml injection [...] as needed for dizziness July 01, 2023 8:01pm March 15, 2024 1:11pm methocarbamol 500 mg oral tablet (12 sources) Muscle Relaxant Start: 03-30-2024 End: 07-02-2024 Methocarbamol 500 mg Tablet Discontinued 750 mg PO THREE TIMES A DAY as needed for pain/spasms March 30, 2024 11:16am July 02, 2024 11:30am methylPREDNISolone 4 mg oral tablet (14 sources) Corticosteroid Start: 07-07-2024 End: 12-05-2024 take 1 tablet by mouth once Methylprednisolone (Medrol ([place])) 4 mg tablets,dose pack Discontinued 4 mg PO per package directions July 07, 2024 12:00am December 05, 2024 3:48pm Start: 06-28-2024 End: 06-28-2024 methylPREDNISolone acetate ( DEPO-Medrol) injection 40 mg 2 ml ondansetron 2 mg/ml injection (15 sources) Serotonin-3 Receptor Antagonist Start: 09-03-2023 End: 09-03-2023 ondansetron (Zofran) injection 4 mg Start: 07-01-2023 End: 03-15-2024 take 1 tablet by mouth every eight hours as needed for nausea Ondansetron 4 mg tablet,disintegrating Discontinued 4 mg PO EVERY 8 HOURS NEEDED as needed for Nausea July 01, 2023 12:00am March 15, 2024 1:10pm oxyCODONE hydrochloride 5 mg oral tablet (14 sources) Opioid Agonist Start: 03-30-2024 End: 04-15-2024 take 2.5-5 mg by mouth every six hours as needed for pain Oxycodone 5 mg Tablet Discontinued 2.5 - 5 mg PO EVERY 6 HOURS as needed for pain March 30, 2024 April 15, 2024 1:32pm Status post lumbar spinal fusion Arthrodesis status Start: 09-03-2023 End: 09-03-2023 oxyCODONE (Roxicodone) immed iate release tablet 5 mg Phytosterol 400 mg tablet (12 sources) Start: 03-15-2024 End: 07-02-2024 take 1 tablet by mouth once daily Phytosterol 400 mg tablet Discontinued 400 mg PO DAILY March 14, 2024 11:00pm July 02, 2024 11:30am Start: 03-15-2024 End: 07-02-2024 take 1 tablet by mouth once daily Phytosterol 400 mg tablet Discontinued 400 mg PO DAILY March 15, 2024 12:00am July 02, 2024 12:30pm 50 ml sodium chloride 9 mg/m l injection (8 sources) Start: 09-03-2023 End: 09-03-2023 sodium chloride 0.9 % bolus 500 mL Start: 09-03-2023 End: 09-03-2023 sodium chloride 0.9 % infusi on Start: 09-03-2023 End: 09-03-2023 sodium chloride 0.9% (NS) fl ush 5-40 mL vitamin b12 0.5 mg oral tablet (20 sources) Vitamin B12 Start: 01-16-2024 End: 03-15-2024 take 1 tablet by mouth once daily Cyanocobalamin (Vitamin B-12) 500 mcg tablet Discontinued 500 ug PO DAILY January 15, 2024 11:00pm March 15, 2024 1:10pm Start: 01-16-2024 End: 03-15-2024 take 1 tablet [...] Problem Classification Problem Date Documented Date Episodic/Chronic Acute myocardial infarction (20 sources) Myocardial infarction; Translations: [Non-ST elevation (NSTEMI) myocardial infarction] Onset: 12-16-2024 Resolved: 03-30-2025 12-05-2024 Chronic Chronic kidney disease (20 sources) Chronic kidney disease; Translations: [Chronic kidney disease, unspecified] Chronic Chronic kidney disease (1 source) Chronic kidney disease; Translations: [Chronic kidney disease, stage 3b] Onset: 12-29-2024 Coronary atherosclerosis and other heart disease (20 sources) Stented coronary artery; Translations: [Presence of coronary angioplasty implant and graft] Onset: 12-06-2024 12-07-2024 Episodic Comment on above: Sacha Goodspring 2.5 X 22 mm to mid RCA 12/07/24 (80% lesion to OM: if pt symptomatic, may stent at a later date). Sacha Goodspring 2.5 X 22 mm to mid RCA 12/06/24, 80% lesion to OM; Deficiency and other anemia (20 sources) Anemia; Translations: [Anemia, unspecified] 12-03-2023 Episodic Diabetes mellitus without complication (20 sources) Type 2 diabetes mellitus without complication; Translations: [Type 2 diabetes mellitus without complications] Onset: 04-02-2023 04-02-2023 Chronic Diabetes mellitus without complication (20 sources) Diabetes mellitus without complication; Translations: [Non-ST elevation myocardial infarction (NSTEMI)] Disorders of lipid metabolism (20 sources) Mixed hyperlipidemia; Translations: [Mixed hyperlipidemia] Onset: 05-04-2024 12-03-2023 Chronic Esophageal disorders (20 sources) Gastroesophageal reflux disease without esophagitis; Translations: [Gastro-esophageal reflux disease without esophagitis] Onset: 05-05-2023 05-05-2023 Chronic Essential hypertension (20 sources) Essential hypertension; Translations: [Essential (primary) hypertension] Onset: 04-02-2023 04-02-2023 Chronic Comment on above: CONTROLLED ON MED Fluid and electrolyte disorders (14 sources) Dehydration; Translations: [Dehydration] 07-01-2023 Episodic Hepatitis (20 sources) Nonalcoholic steatohepatitis; Translations: [Nonalcoholic steatohepatitis (HERN[place]NDEZ)] Onset: 05-05-2023 01-21-2024 Chronic Nausea and vomiting (14 sources) Nausea, vomiting and diarrhea; Translations: [Nausea [...] obtained at that time. Other acquired deformities (8 sources) Acquired kyphosis; Translations: [Unspecified kyphosis, thoracolumbar region] 01-18-2024 Chronic Other acquired deformities (4 sources) Kyphosis of thoracolumbar spine; Translations: [Unspecified kyphosis, thoracolumbar region] 01-18-2024 Chronic Other acquired deformities (12 sources) Lumbar spondylolisthesis; Translations: [Spondylolisthesis, lumbar region] 04-07-2024 Episodic Other aftercare (6 sources) Long-term current use of diuretic; Translations: [Encounter for therapeutic drug level monitoring] 01-11-2025 Episodic Other circulatory disease (13 sources) Orthostatic hypotension; Translations: [Orthostatic hypotension] 07-01-2023 Episodic Other circulatory disease (1 source) Orthostatic hypotension; Translations: [Orthostatic hypotension] 07-01-2023 Episodic Other connective tissue disease (2 sources) Ganglion cyst of right wrist; Translations: [Ganglion, right wrist] 09-03-2023 Episodic Other connective tissue disease (14 sources) History of lumbar fusion; Translations: [Arthrodesis status] 03-30-2024 Episodic Other ear and sense organ disorders (20 sources) Hearing problem; Translations: [Unspecified hearing loss, bilateral] Onset: 07-24-2023 07-24-2023 Chronic Other liver diseases (20 sources) Steatosis of liver; Translations: [Fatty (change of) liver, not elsewhere classified] Onset: 05-05-2023 05-05-2023 Chronic Other lower respiratory disease (5 sources) Snoring; Translations: [Snoring] Onset: 03-30-2025 03-30-2025 Episodic Other nervous system disorders (18 sources) Cervical myelopathy; Translations: [Disease of spinal cord, unspecified] 07-30-2024 Chronic Other nervous system disorders (1 source) Disease of spinal cord, unspecified; Translations: [Disease of spinal cord, unspecified] Onset: 09-03-2024 Chronic Other nutritional; endocrine; and metabolic disorders (20 sources) Hereditary hemochromatosis; Translations: [Hereditary hemochromatosis] Onset: 04-02-2023 04-02-2023 Chronic Other nutritional; endocrine; and metabolic disorders (20 sources) Morbid obesity; Translations: [Morbid (severe) obesity due to excess calories] Onset: 07-24-2023 07-24-2023 Chronic Other nutritional; endocrine; and metabolic disorders (20 sources) Hemochromatosis; Translations: [Hemochromatosis, unspecified] 12-06-2024 Chronic Other nutritional; endocrine; and metabolic disorders (3 sources) Severe obesity; Translations: [Class 2 severe obesity due to excess calories with serious comorbidity and body mass index (BMI) of 35.0 to 35.9 in adult] Onset: 07-24-2023 03-30-2025 Chronic Other nutritional; endocrine; and metabolic disorders (1 source) Hereditary hemochromatosis; Translations: [Hereditary hemochromatosis (HCC)] Onset: 04-23-2023 Chronic Other screening for suspected conditions (not mental disorders or infectious disease) (8 sources) Patient encounter status; Translations: [Encounter for screening for malignant neoplasm of colon] Onset: 02-24-2025 12-01-2023 Episodic Other upper respiratory infections (16 sources) Nasal discharge; Translations: [Postnasal drip] 07-05-2024 Episodic Residual codes; unclassified (5 sources) Hypersomnia; Translations: [Hypersomnia, unspecified] Onset: 03-30-2025 03-30-2025 Chronic Residual codes; unclassified (2 sources) Hypersomnia, unspecified; Translations: [Hypersomnia, unspecified] Onset: 03-30-2025 Chronic Screening and history of mental health and substance abuse codes (3 sources) Tobacco use and exposure - finding; Translations: [Personal history of nicotine dependence] 01-21-2024 Episodic Spondylosis; intervertebral disc disorders; other back problems (20 sources) Degeneration of lumbar intervertebral disc; Translations: [Other intervertebral disc degeneration, lumbar region] Onset: 12-24-2023 12-24-2023 Chronic Thyroid disorders (20 sources) Hypothyroidism; Translations: [Hypothyroidism, unspecified] Onset: 07-24-2023 04-23-2023 Chronic Unclassified (11 sources) Z95.5 - Presence of coronary angioplasty implant and graft,I21.4 - Non-ST elevation (NSTEMI) myocardial infarction,N18.32 - Chronic kidney disease, stage 3b,I10 - Essential (primary) hypertension,E78.00 - Pure hypercholesterolemia, unspecified,E11.9 - Type 2 diabetes mellitus without complications Unclassified (6 sources) LEFT MESSAGE WITH OFFICE, IF YOU DO NOT HEAR FROM THEM WITHIN 2-3 BUSINESS DAYS PLEASE CALL TO SCHEDULE APPOINTMENT. Past or Other Problems Problem Classification Problem Date Documented Da te Episodic/Chronic Cardiac dysrhythmias (19 sources) Paroxysmal atrial fibrillation; Translations: [Paroxysmal atrial fibrillation] Onset: 12-28-2024 Resolved: 12-28-2024 12-28-2024 Chronic Cardiac dysrhythmias (20 sources) Bradycardia; Translations: [Bradycardia, unspecified] Onset: 12-28-2024 12-28-2024 Episodic Deficiency and other anemia (20 sources) Iron deficiency anemia; Translations: [Iron deficiency anemia, unspecified] Onset: 01-21-2024 12-03-2023 Episodic Deficiency and other anemia (1 source) Anemia, unspecified; Translations: [Anemia, unspecified] Onset: 12-30-2024 Episodic Heart valve disorders (20 sources) Heart murmur; Translations: [Cardiac murmur, unspecified] Onset: 01-21-2024 01-21-2024 Episodic Immunizations and screening for infectious disease (5 sources) Immunization due; Translations: [Encounter for immunization] Onset: 05-04-2024 04-23-2023 Episodic Mood disorders (20 sources) Mood disorders Onset: 04-02-2023 04-02-2023 Nonspecific chest pain (12 sources) Chest pain; Translations: [Chest pain, unspecified] Onset: 12-30-2024 12-05-2024 Episodic Other acquired deformities (20 sources) Spondylolisthesis; Translations: [Spondylolisthesis, lumbosacral region] Onset: 01-28-2024 03-09-2024 Episodic Other acquired deformities (1 source) Spondylolisthesis, lumbosacral region; Translations: [Spondylolisthesis, lumbosacral region] Onset: 05-31-2024 Episodic Other aftercare (20 sources) Wound finding; [...] Onset: 12-01-2023 Resolved: 05-04-2024 12-01-2023 Episodic Other connective tissue disease (1 source) Arthrodesis status; Translations: [Arthrodesis status] Onset: 07-02-2024 Episodic Other injuries and conditions due to [...] joint, lower leg] Onset: 05-25-2024 05-25-2024 Episodic Residual codes; unclassified (20 sources) Past history of procedure; Translations: [Personal history of other medical treatment] Onset: 09-14-2020 04-03-2023 Episodic Spondylosis; intervertebral disc disorders; other back problems (16 sources) Chronic low back pain; Translations: [Chronic left-sided low back pain without sciatica] Onset: 07-30-2024 12-15-2023 Episodic Results Test Name Value Interpretation Reference Range Facility 36on 04-05-2025 36 Noted. Thank you. Discontinued Jarivanance from med list/ due to cost. Normal [facility] Progress Noteon 04-04-2025 Progress Note Spoke to patient, Jarivanance and Lavonne are both going to be $400 out of pocket for patient and she cannot afford this, she was not interested in applying for assistance at this time, will notify provider [facility] 36on 03-31-2025 36 Name of caller: Juan Landin Contact phone number: [phone] Relationship to Patient: patient Provider: ELLE Ramos Practice: [facility] Chief Complaint/Reason for Call: Patient stated that they are not able to afford the empagliflozin (Jardiance) 10 MG that was sent to the pharmacy and would like to have a prescription for a different medication sent to the pharmacy. Patient stated to please let them know on MyChart when a new prescription has been sent to the pharmacy and what medication it is. Please advise. Thank you. Best time of day caller can be reached: Any Patient advised that office/PCP has 24-48 business hours to return their call: No [facility] 37on 03-30-2025 37 Fasting labs at next visit. [facility] Office Visiton 03-30-2025 Follow-up visit [id number] Juan Landin 1955 F Date Provider Department Center 03/30/2025 [id number] VALDERRAMA [facility] Family History Problem Relation Age of Onset Ovarian cancer Mother Comments: 2000 Arthritis Father Hearing loss Father Stroke Father Prostate cancer Father Comments: 2001, recall ages Arthritis Brother Hearing loss Brother Hyperlipidemia Brother Prostate cancer Brother 71 Hypertension Father Stroke Father Arthritis Father Hearing loss Father Heart disease Father Prostate cancer Father Ovarian cancer Mother Hypertension Brother Accidental Brother Hyperlipidemia Other Hypertension Brother Family Status - Relation Status Age at Mother Father Brother Father Alive Mother Alive Brother Alive Other Alive Brother Alive Level of Service:79913 MO OFFICE/OUTPATIENT ESTABLISHED MOD MDM 30 MIN Reason for Visit and Comments: Medication Check [[id number]] Sleep Study [701] [facility] Progress Noteon 03-30-2025 Progress Note Continue rosuvastati n. Will plan to check lipid panel next visit [facility] Progress Note Managed by cardiolog y. Continue aspirin 81 mg daily and Plavix 75 mg daily [facility] Progress Note Controlled. Blood pressure 106/64, continue carvedilol 25 mg twice daily, Lasix 40 mg [facility] Progress Note Stop bang 5-high ris k for EVE, refer to [facility] sleep [facility] Normal [facility] Progress Note Stop bang 5-high ris k for EVE, refer to [place] [facility] sleep medicine Normal [facility] Progress Note Uncontrolled, contin ue metformin 1000 mg twice daily, start Jardiance 10 mg daily. Close follow-up in about 1 month Normal [facility] Progress Note Patient was identifi ed by name and Date of . Health Maintenance Due Topic Bone Density Scan- DTaP/Tdap/Td Vaccines- RSV Immunization- Zoster Vaccines- Diabetes: Retinopathy Screening- Medicare Advantage Annual Wellness Visit- Diabetes: Urine Albumin-Creatinine Ratio for Kidney Health- COVID-19 Vaccine- Lung Cancer Screening- Diabetes: Foot Exam- [facility] Progress Note 03/30/2025 Yodit Landin (: 1955) is a 69 y.o. female , Established patient, here for evaluation of the following chief complaint(s): Medication Check and Sleep Study ASSESSMENT/PLAN: 1. Type 2 diabetes mellitus without complication, without long-term current use of insulin (HCC) Assessment & Plan: Uncontrolled, continue metformin 1000 mg twice daily, start Jardiance 10 mg daily. Close follow-up in about 1 month Orders: - empagliflozin (Jardiance) 10 MG; Take 1 tablet (10 mg) by mouth daily., Starting Fri03/30/2025, Normal 2. Hypersomnia Assessment & Plan: Stop bang 5-high risk for EVE, refer to [place] sleep medicine Orders: - External referral to Sleep Medicine 3. Pure hypercholesterolemia Assessment & Plan: Continue rosuvastatin. Will plan to check lipid panel next visit 4. Primary hypertension Assessment & Plan: Controlled. Blood pressure 106/64, continue carvedilol 25 mg twice daily, Lasix 40 mg Orders: - carvedilol (Coreg) 25 MG tablet; Take 1 tablet (25 mg) by mouth 2 times daily (with meals)., Starting Fri03/30/2025, No Print 5. Snoring Assessment & Plan: Stop bang 5-high risk for EVE, refer to [place] sleep medicine Orders: - External referral to Sleep Medicine 6. Presence of coronary angioplasty implant and graft Assessment & Plan: Managed by cardiology. Continue aspirin 81 mg daily and Plavix 75 mg daily Follow up for with primary care provider as scheduled. SUBJECTIVE/OBJECTIVE: HPI - Yodit Landin (: 1955) is a 69 y.o. female , Established patient, here for the evaluation of the following chief complaint(s): Medication Check and Sleep Study Patient presents for med check and also to see if she can get a sleep study done. She would like it done at [facility]. She was told by her day guard that she likely needs a sleep apnea test. She is status post GA several months ago. She is established with cardiology and denies any chest pain or shortness of breath. She has had some medication changes recently mainly her Coreg was increased to 25 mg twice daily. It was also recommended that she possibly be put on Farxiga or Jardiance for cardioprotective factors and due to her diabetes. She states she would like to try 1 of those. She is currently only on metformin for her diabetes. She brings her home readings and her fasting at home is between 112 and 154. Denies any other acute complaints or concerns today. She is doing well on her cholesterol medicine and we will plan on checking the cholesterol levels at the next visit. Reports she does have daytime fatigue, has been reported that she snores at night. Her STOP-BANG score is 5 Current Medications[1] Review of Systems Constitutional: Positive for fatigue. Negative for activity change, appetite change and unexpected weight change. HENT: Negative. Respiratory: Negative. Cardiovascular: Negative. Gastrointestinal: Negative. Genitourinary: Negative for difficulty urinating. Neurological: Negative for dizziness and light-headedness. Vitals: 03/30/25 1128 BP: 106/64 Pulse: 75 Resp: 24 Temp: 36.8 ?C (98.2 ?F) TempSrc: Infrared SpO2: 93% Weight: 206 lb 3.2 oz (93.5 kg) Physical Exam Vitals reviewed. Constitutional: General: She is not in acute distress. Appearance: Normal appearance. She is not ill-appearing. HENT: Head: Normocephalic and atraumatic. Mouth/Throat: Mouth: Mucous membranes are moist. Pharynx: Oropharynx is clear. No posterior oropharyngeal erythema. Eyes: Conjunctiva/sclera: Conjunctivae normal. Cardiovascular: Rate and Rhythm: Normal rate and regular rhythm. Pulses: Normal pulses. Heart sounds: Normal heart sounds. Pulmonary: Effort: Pulmonary effort is normal. Breath sounds: Normal breath sounds. Musculoskeletal: Right lower leg: No edema. Left lower leg: No edema. Comments: Able to get on and off exam table without difficulty Lymphadenopathy: Cervical: No cervical adenopathy. Neurological: Mental Status: She is alert and oriented to person, place, and time. Psychiatric: Mood and Affect: Mood normal. Behavior: Behavior normal. Thought Content: Thought content normal. An electronic signature was used to authenticate this note. 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, ASAF - [facility] 03/30/2025 2:53 PM [1] Current Outpatient Medications Medication Sig Dispense Refill acetaminophen (Tylenol) 500 MG tablet Take 500 mg by mouth in the morning and 500 mg in the evening. ASPIRIN 81 PO Take 81 mg by mouth daily. Cholecalciferol (D3-50 PO) Take 50 mg by mouth daily. clopidogrel (Plavix) 75 MG tablet Take 1 tablet (75 mg) by mouth daily. 90 tablet 1 DIGESTIVE ENZYMES PO Take 175 mg by mouth in the morning and 175 mg at noon and 175 mg in the evening. Ferrous Sulfate (IRON PO) Take 65 mg by mouth daily. furosemide (Lasix) 40 MG tablet Take 40 mg by mouth daily. levothyroxine (Synthroid, Levoxyl) 150 MCG tablet TA (more content not included)... [facility] 36on 03-18-2025 36 We will wait until w e hear what she hears from cardiology [facility] 36 Name of caller: Juan salgado Contact phone number: [phone] Relationship to Patient: Self Provider: Colin Practice: [facility] Chief Complaint/Reason for Call: Pt called to have medication adjusted and sent to [facility] as she was instucted from at Cardiology is [place] to increase . Pt was having issues with [facility] as she may be confused on the dosage needed In charge shows carvedilol at 12.5 mg twice a day. To equal 25mg a day she claims that she was to take 25mg twice a day and has been adjusting 3.125mg tablets to take 25 mg twice a day . She is going to call cardiology back to find out which she should be taking please advise Best time of day caller can be reached: any Patient advised that office/PCP has 24-48 business hours to return their call: No [facility] Cardiology Visit Reporton Cardiology Visit Report [facility] [address] [place] [address] OFFICE VISIT Date of Service: 03/14/25 MR#: [id number] Acct: [id number] Name: YODIT LANDIN Rep #: [id number] : 1955 Provider: DENISE gutierres Age/Sex: 69/F Location: [facility] Status: Signed HPI HPI History of Present Illness Details: This is a 69-year-old female who presents today for a posthospital follow-up. She was seen at [facility] in November 2024 for non-ST elevated myocardial infarction. Echocardiogram showed LV function 54% and severely hypokinetic inferior basal and basal inferoseptal wall. Heart catheterization on 12/06/2024 showed totally occluded RCA and high-grade stenosis of the obtuse marginal branch. She proceeded with drug-eluting stent to mid RCA. It was recommend that if symptoms continue despite medical therapy to consider PCI to OM. She also has a past medical history of hypertension, hyperlipidemia, hemochromatosis, and diabetes mellitus type 2. She denies chest, arm, jaw, or neck discomfort. She denies palpitations. She denies bilateral lower extremity edema. She denies claudication. She denies shortness of breath with activity, shortness of breath at rest, orthopnea, or PND. She denies chronic cough. She denies significant, sudden weight gain. She denies lightheadedness, dizziness, near-syncope, or syncope. She denies blood in urine, blood in stool, or epistaxis. He denies fever with chills. She denies myalgia. She states occasional fatigue. Her exercise level has remained stable. Intake Vital Signs 12/13/24 09:19 03/14/25 07:40 Height 5 ft 4 in 5 ft 4 in Weight: 206 lb BMI 35.3 BP 154/80 H Blood Pressure Location Lt brachial Position Sitting Respiration 18 Pulse 89 Pulse Source Monitor Pulse Oximetry (%) 6 Intake Visit Reasons: 3 M FU [employer] Required: No Is patient in pain?: No Allergies atorvastatin Allergy (Severe, Verified 03/14/25 10:53) Hives codeine Adverse Reaction (Intermediate, Verified 03/14/25 10:53) Vomiting sulfamethoxazole (From Bactrim) Adverse Reaction (Intermediate, Verified 03/14/25 10:53) Vomiting trimethoprim (From Bactrim) Adverse Reaction (Intermediate, Verified 03/14/25 10:53) Vomiting Medications ???Medication ???Instructions ???Recorded ???Confirmed ???Type metformin 1,000 mg tablet 1,000 mg PO .QAM diabetes 01/16/24 03/14/25 History omega 2-pfw-hcf-fish oil 1,200 mg 1 cap PO DAILY supplement 4 03/14/25 History (144 mg-216 mg) capsule (Fish Oil) omeprazole 40 mg capsule,delayed 40 mg PO QDAY reflux 01/16/2402/24 History release vitamin E (dl, acetate) 180 mg 180 mg PO DAILY supplement 4 03/14/25 History (400 unit) capsule digestive enzymes 1 tab PO TID supplement 03/15/24 1 History metformin 500 mg tablet 500 mg PO .1500, 2100 diabetes 03/14/25 History vit A 750 mcg-vit C 150 mg-D3 1 cap PO TID supplement 03/15/24 1 History 31.25 cht-yfdt-jywbfxksq-[id number] cet capsule (Immune Essentials Daily) aspirin 81 mg tablet,delayed 81 mg PO BREAKFAST #0 tabs 5 03/14/25 Rx release cholecalciferol (vitamin D3) 50 50 mcg PO QDAY 12/13/24 03/14/25 H istory mcg (2,000 unit) tablet clopidogrel 75 mg tablet 75 mg PO DAILY #90 tabs 12/13/24 1 Rx ferrous sulfate 325 mg (65 mg 325 mg PO QDAY 12/13/24 03/14/25 H istory iron) tablet levothyroxine 150 mcg tablet 150 mcg PO QDAY 12/13/24 03/14/25 History nystatin 100,000 unit/gram topical topical 12/13/24 03/14/25 Histor y cream furosemide 40 mg tablet (Lasix) 40 mg PO QDAY #90 tabs 01/11/25 Rx rosuvastatin 20 mg tablet 20 mg PO QHS 02/22/25 03/14/25 His tory carvedilol 25 mg tablet 25 mg PO BID #60 tabs 03/14/25 Rx Ejection fraction %: 54 Have you fallen in the past year?: No PFSH Medical History CKD (chronic kidney disease) Anemia Wears partial dentures Wears contact lenses Wears glasses Post-menopausal Thyroid disease Diabetes Arthritis High cholesterol Hemochromatosis Injury of head and neck Gastric reflux Former smoker History of pain when walking Hypertension History of echocardiogram Dehydration Nausea vomiting and diarrhea Surgical History Stented coronary artery (12/06/24) History of surgery on right wrist Hx of repair of right rotator cuff History of 2 sections Hx of ovarian cystectomy Hx of hysterectomy Hx of tonsillectomy Family History Mother Ovarian cancer Father CAD (coronary artery disease) Heart disease Hypertension Myocardial infarct (more content not included)... Normal [facility] 36on 02-25-2025 36 Name of caller: Juan salgado Contact phone number: [phone] Relationship to Patient: patient Provider: Sedrick ALMEIDA Practice: [facility] Chief Complaint/Reason for Call: Patient was returning a call from [facility], stated she already read her mammogram results. Best time of day caller can be reached: any Patient advised that office/PCP has 24-48 business hours to return their call: No Normal [facility] Orthopedic Visit Reporton Orthopedic Visit Report [facility] [address] [place] [address] [place] [id number] OFFICE VISIT Date of Service: 02/22/25 MR#: [id number] Acct: [id number] Name: YODIT LANDIN VIVIAN Rep #: [id number] : 1955 Provider: DENISE braun Age/Sex: 69/F Location: [facility]UAN Status: Signed Intake Vital Signs 02/04/25 09:36 02/22/25 10:26 Height 5 ft 4 in 5 ft 4 in Weight: 200 lb BMI 34.3 Intake Visit Reasons: RIGHT KNEE Chief Complaint: Right knee cortisone injection Accompanied by: Self Is patient in pain?: No Allergies atorvastatin Allergy (Severe, Verified 02/22/25 10:31) Hives codeine Adverse Reaction (Intermediate, Verified 02/22/25 10:31) Vomiting sulfamethoxazole (From Bactrim) Adverse Reaction (Intermediate, Verified 02/22/25 10:31) Vomiting trimethoprim (From Bactrim) Adverse Reaction (Intermediate, Verified 02/22/25 10:31) Vomiting Medications ???Medication ???Instructions ???Recorded ???Confirmed ???Type metformin 1,000 mg tablet 1,000 mg PO .QAM diabetes 01/16/24 02/22/25 History Held on 12/07/24. Instructions: Resume on 12/12/24. omega 8-als-tgh-fish oil 1,200 mg 1 cap PO DAILY supplement 4 02/22/25 History (144 mg-216 mg) capsule (Fish Oil) omeprazole 40 mg capsule,delayed 40 mg PO QDAY reflux 01/16/2401/26 History release vitamin E (dl, acetate) 180 mg 180 mg PO DAILY supplement 4 02/22/25 History (400 unit) capsule digestive enzymes 1 tab PO TID supplement 03/15/24 0 02/22/25 History metformin 500 mg tablet 500 mg PO .1500, 2100 diabetes 02/22/25 History Held on 12/07/24. Instructions: Resume on 12/12/24. vit A 750 mcg-vit C 150 mg-D3 1 cap PO TID supplement 03/15/24 0 02/22/25 History 31.25 gdy-zsyg-fdmjpcuhs-quer cet capsule (Immune Essentials Daily) aspirin 81 mg tablet,delayed 81 mg PO BREAKFAST #0 tabs 5 02/22/25 Rx release cholecalciferol (vitamin D3) 50 50 mcg PO QDAY 12/13/24 02/22/25 H istory mcg (2,000 unit) tablet clopidogrel 75 mg tablet 75 mg PO DAILY #90 tabs 12/13/24 0 02/22/25 Rx ferrous sulfate 325 mg (65 mg 325 mg PO QDAY 12/13/24 02/22/25 H istory iron) tablet levothyroxine 150 mcg tablet 150 mcg PO QDAY 12/13/24 02/22/25 History nystatin 100,000 unit/gram topical topical 12/13/24 02/22/25 Histor y cream furosemide 40 mg tablet (Lasix) 40 mg PO QDAY #90 tabs 01/11/25 Rx carvedilol 12.5 mg tablet 12.5 mg PO BID dose increased 09/1702/22/25 Rx again due to hypertension #60 tabs rosuvastatin 20 mg tablet 20 mg PO QHS 02/22/25 02/22/25 His tory Have you fallen in the past year?: No PFSH Medical History CKD (chronic kidney disease) Anemia Wears partial dentures Wears contact lenses Wears glasses Post-menopausal Thyroid disease Diabetes Arthritis High cholesterol Hemochromatosis Injury of head and neck Gastric reflux Former smoker History of pain when walking Hypertension History of echocardiogram Dehydration Nausea vomiting and diarrhea Surgical History Stented coronary artery (12/06/24) History of surgery on right wrist Hx of repair of right rotator cuff History of 2 sections Hx of ovarian cystectomy Hx of hysterectomy Hx of tonsillectomy Family History Mother Ovarian cancer Father CAD (coronary artery disease) Heart disease Hypertension Myocardial infarction Social History household members: none Smoking Status: Former smoker how long ago did patient quit smoking: Quit 7 years prior, approximate 1 pack/day since teen until quit. alcohol intake: never substance use type: does not use caffeine: Yes Type: coffee Number of servings: 1 HPI RIGHT KNEE Details: This documentation accurately reflects the service provided and the decisions made by me, DENISE Meza 02/22/25 1026. Part of today???s visit was documented by Peace Levine MA, acting as scribe. YODIT LANDIN is a pleasant 69 year old F here today for evaluation of right knee pain at patient request of cortisone injection. Patient has a history of right knee OA and last received a cortisone injection in July 2024 with good and sustained relief. However over the last several weeks, patient is noticing increased achiness, pain to the lateral region, occasional painful popping. No episodes of give way. Patient is currently participating in cardiac rehab and he had an GA in November 2024 which required stenting. Denies any recent injury. Tylenol on as needed basis helps some. ROS Con (more content not included)... [facility] 02-17-2025 36 Will discuss at 03/30 appt with Maria Luisa [facility] 02-16-2025 36 Called [facility] lavinia phone number and was transferred to the sleep department. Was provided diagnoses that would support doing the sleep study and none were applicable to Yodit based off of the questionnaire she did. If Yodit would like to attempt another approach to getting this covered I would recommend getting her scheduled for an office visit for further documentation. [place] [address] The only number I kn ow it the main hospital number [phone] [place] [address] Attempted to call ph one number provided ([phone]) and gotten an automated response stating that I have reached a nonworking number at [facility]. Is there another number that they can provide? [place] [address] Name of caller: Katty topete Contact phone number: [phone] Relationship to Patient: [facility] Provider: Jessica Smith Practice: [facility] Chief Complaint/Reason for Call: Caller stated the Dx codes for the Sleep Study order are not covered, can please call and provide verbal DX codes? Please advise. Best time of day caller can be reached: Any Patient advised that office/PCP has 24-48 business hours to return their call: No [place] [address]on 02-15-2025 36 Faxed to [facility]. They will contact patient to schedule. [place] [address] Narcisa pt wants to onl y deal with [place] - are you able to help with this? [place] [address] Test Name: HST 1st attempt- called fabián pt, does not want to go to any other location but [place]- I tried to explain we only do for HST and in lab at , Alexys Dueñas and Nick, pt declined and wants [facility] - sent TE -CT 02/15/25 [facility] 36on 02-14-2025 36 A stop-bang from [facility] is scanned in the chart on 02/07/25 and is the 2nd page Let me know if you need anything else [facility] 36 Please send form fro m [facility] that is scanned under the media section on 02/07/25. Will see if this is sufficient for what they need. If not, will need an office visit for further documentation. [facility] 36 Hello, We received an order for this patient to be scheduled for a sleep study. Per our lab we are required to have H&P notes with documentation of need for a sleep study. Below are examples accepted by the lab: STOP BANG Score EP Zavala Sleep Scale Waking up with morning headaches witness sleep apnea by a spouse waking up gasping or choking for air sleeping 8 hours and not waking up feeling well rested , Talking about fatigue/not feeling refreshed after sleeping through the night (fatigue must be somehow related to sleep/sleeplessness, like they don't sleep well or something like that, just general fatigue doesn't count because it could be contributed to anything snoring ( snoring must be accompanied by another issue as well ) COPD/ Severe Asthma with possible Apnea/ decreased air movement/ Example: COPD/ snoring has increased Having a hard time falling and/or staying asleep attributable to Afib (Usually orders from [facility]) [facility] [id number] 02-07-2025 [id number] Order placed for shelley e sleep study. [facility] No Panel InformationOrdered By: Dani Arcos on 02-05-2025 [facility] Card[facility] Rehab [address] [place] [address] CR - Individual Treatment Plan MR#: [id number] Acct: [id number] Name: YODIT LANDIN Rep #:[id number] : 1955 69 From: Dani Wang BS, RVT PCP: Dr. Moshe Key MD DOS: 01/24 07/20 Exercise - Initial Assessment Physician Prescribed Exercise Modalities: SciFit Stepper and SciFit Pro-II Ergometer Nutrition - Initial Assessment Weight Mgt (Other Care) Height: 5 ft 4 in Weight:: 208 lb BMI: 35.6 Core - Initial Assessment Hypertension Resting Blood Pressure:: 128/60 [place] [employer] Hypertension Guidelines Psychosocial - Initial Assess Referral to Behavioral Health PS - Interventions: Yes: Attend Stress Management Classes Patient Health Questionnaire PHQ-9 Screening 60-Day Re-eval Assessment: 1. Little interest or pleasure in doing things: Not at all 2. Feeling down, depressed, or hopeless: Not at all 3. Trouble falling or staying asleep, or sleeping too much: Not at all 4. Feeling tired or having little energy: Several days 5. Poor appetite or overeating: Not at all 6. Feeling bad about yourself -- or that you are a failure or have let yourself or your family down: Not at all 7. Trouble concentrating on things, such as reading the newspaper or watching television: Not at all 8. Moving or speaking so slowly that other people could have noticed. Or the opposite - being so fidgety or restless that you have been moving around a lot more than usual: Not at all 9. Thoughts that you would be better off , or of hurting yourself in some way: Not at all How difficult have these problems made it for you to do your work, take care of things at home, or get along with other people?: Not difficult at all Total Score: 1 Self-Efficacy 6-Item Scale 60-Day Re-eval Assessment: We would like to know how confident you are in doing certain activities. Please select your confidence level for: Fatigue Select Number: 10 Physical Discomfort or Pain Select Number: 10 Emotional Distress Select Number: 8 Other Symptoms or Health Problems Select Number: 8 Different Tasks and Activities Select Number: 9 Medication Select Number: 10 Total Score:: 9 Exercise - 30-day Assessment Physician Prescribed Exercise Modalities: SciFit Stepper and SciFit Pro-II Ergometer Exercise - 60-day Assessment Visit Date of Eval: 02/04/25 Session #:: 19 Physician Prescribed Exercise Modalities: SciFit Stepper and SciFit Pro-II Ergometer Frequency: 3x/week for 12 weeks [36 sessions] Intensity: 60-80% of age predicted maximum heart rate reserve Duration: 30 - 45 minutes Current METSs:: 3.1 Target Heart Rate:: 90-113 Current RPE:: 13-14 Maximum Excercise HR:: 113 Resting Blood Pressure: 120/64 Maximum Exercise Blood Pressure: 144/64 EKG Type: NSR to ST w/rare to occas pac, rare pvc. Ocas sinus arrhythmia Outcomes & Goals Goals:: Verbalizes understanding of THR, RPE & goal METS by session 6, Documentsin home exercise log/reports 30 min aerobic 5 day/wk by DC, Demonstrates accurate pulse taking by DC and Other additional outcome/goals: see below Intervention & Plan Exercise Program Goals: Instruct on personal THR & RPE, Instruct on MET level & personal MET goal, Show patient to take own pulse /validate performance until accurate, Instruct on home exercise and Other additional plan/int Physical Activity Home Exercise Physical Activity - Home Exercise: Safe Exercise, Warm-up, Self-monitoring, Cool-Down, Home Exercise > 30 min Daily and Sitting Time <3 hours/daily Outcomes & Goals Outcomes/Goals: Demonstrates correct Warm-up/exercise Cool-Down (S3) if = 2.5 METs, Verbalizes symptoms of exercise intolerance by Session 3 (S3), Demonstratesafe equipment use (S3) & follows exercise prescrition (6) and Other: See below Intervention & Plan Plan/Intervention: Instruct warm-up & cool-down if exercising at > 2 METs, Instruct on symptoms of exercise intolerance & actions to take, Instruct & monitor on saf, Assess intial functional capacity & safety risk and Other See below 30-day Reassessments 30 day Reassessments:: Progressing Reassessment Notes & Comments:: Proper warm up and cool down explained to pt. Pt demonstrates understanding in her daily sessions. Exercise - 90-day Assessment Physician Prescribed Exercise Modalities: SciFit Stepper and SciFit Pro-II Ergometer Exercise - Final/Discharge Physician Prescribed Exercise Modalities: SciFit Stepper and SciFit Pro-II Ergometer Nutrition - 30-Day Assessment Weight Mgt (Other Care) Height: 5 ft 4 in Weight:: 208 lb BMI: 35.6 Nutrition - 60-Day Assessment Program Goals Nutrition Program Goals Patient has diagnosis of Hyperlipidemia (ICD E78)?: Yes Visit Date of Eval: 02/04/25 Session #:: 19 (Nutrition survey score of 4.) Cholesterol/Lipids (Other Core Measures) Determine presence & major risk factors that modify LDL goal: Cigarette smoking,Hypertension or hypertensive medication, Low HDL cholesterol <40 mg/dL*, Family history of premature CHD in Male < 55 years: female (more content not included)... [facility] 02-04-2025 36 Yodit dropped off fo faby to the office from her hospitalization at [facility]. One of the forms showed a new dose of her carvedilol at 12.5 mg twice a day. Medication list updated to reflect new dose of medication. She also dropped off forms from [facility] stating she was found to be at increased risk for obstructive sleep apnea. Can order her a home sleep study for further evaluation if she would like. [facility] Progress Noteon 01-27-2025 Progress Note Lab/venipuncture completed by [email or web address]/[email or web address] completed by [employer] [facility] 36on 01-26-2025 36 Prescription Request : : Rosuvastatin Calcium 20 MG Oral Tablet Last medication check: Last physical exam: 05/04/24 Next scheduled appointment: 03/30/25 Last date of refill on this medication 01/04/25 ( qty 30 refill 0) [facility] No Panel InformationOrdered By: Dani Arcos on 01-08-2025 [facility] Cardiac Rehab [address] [place] [address] CR - Individual Treatment Plan MR#: [id number] Acct: [id number] Name: YODIT LANDIN VIVIAN Rep #:[id number] : 1955 69 From: Dani Wang BS, RVT PCP: Dr. Moshe Key MD DOS: 12/24 10/17 Exercise - Initial Assessment Visit Session #:: 8 Physician Prescribed Exercise Modalities: SciFit Stepper and SciFit Pro-II Ergometer Nutrition - Initial Assessment Weight Mgt (Other Care) Height: 5 ft 4 in Weight:: 210 lb BMI: 36.0 Core - Initial Assessment Tobacco Use Years Smokin Psychosocial - Initial Assess Target Goals Target Goals Referral to Behavioral Health PS - Interventions: Yes: Attend Stress Management Classes Patient Health Questionnaire PHQ-9 Screening 30-Day Re-eval Assessment: 1. Little interest or pleasure in doing things: Not at all 2. Feeling down, depressed, or hopeless: Not at all 3. Trouble falling or staying asleep, or sleeping too much: Not at all 4. Feeling tired or having little energy: Several days 5. Poor appetite or overeating: Not at all 6. Feeling bad about yourself -- or that you are a failure or have let yourself or your family down: Not at all 7. Trouble concentrating on things, such as reading the newspaper or watching television: Not at all 8. Moving or speaking so slowly that other people could have noticed. Or the opposite - being so fidgety or restless that you have been moving around a lot more than usual: Not at all 9. Thoughts that you would be better off , or of hurting yourself in some way: Not at all How difficult have these problems made it for you to do your work, take care of things at home, or get along with other people?: Not difficult at all Total Score: 1 Self-Efficacy 6-Item Scale 30-Day Re-eval Assessment: We would like to know how confident you are in doing certain activities. Please select your confidence level for: Fatigue Select Number: 10 Physical Discomfort or Pain Select Number: 10 Emotional Distress Select Number: 8 Other Symptoms or Health Problems Select Number: 8 Different Tasks and Activities Select Number: 9 Medication Select Number: 10 Total Score:: 9 Nutrition Survey Nutrition Survey Instructions Scoring Instructions Exercise - 30-day Assessment Visit Date of Eval: 01/07/25 Session #:: 8 Physician Prescribed Exercise Modalities: Totally Interactive Weather Stepper and Totally Interactive Weather Pro-II Ergometer Frequency: 3x/week for 12 weeks [36 sessions] Intensity: 60-80% of age predicted maximum heart rate reserve Duration: 30 - 45 minutes Current METSs:: 3.1 Target Heart Rate:: 90-113 Current RPE:: 12-13 Maximum Excercise HR:: 118 Resting Blood Pressure: 126/68 Maximum Exercise Blood Pressure: 168/78 EKG Type: NSR to ST w/rare pac, pvc, occas sinus arrythmia. Outcomes & Goals Goals:: Verbalizes understanding of THR, RPE & goal METS by session 6, Documentsin home exercise log/reports 30 min aerobic 5 day/wk by DC, Demonstrates accurate pulse taking by DC and Other additional outcome/goals: see below Intervention & Plan Exercise Program Goals: Instruct on personal THR & RPE, Instruct on MET level & personal MET goal, Show patient to take own pulse /validate performance until accurate, Instruct on home exercise and Other additional plan/int Physical Activity Home Exercise Physical Activity - Home Exercise: Safe Exercise, Warm-up, Self-monitoring, Cool-Down, Home Exercise > 30 min Daily and Sitting Time <3 hours/daily Outcomes & Goals Outcomes/Goals: Demonstrates correct Warm-up/exercise Cool-Down (S3) if = 2.5 METs, Verbalizes symptoms of exercise intolerance by Session 3 (S3), Demonstratesafe equipment use (S3) & follows exercise prescrition (6) and Other: See below Intervention & Plan Plan/Intervention: Instruct warm-up & cool-down if exercising at > 2 METs, Instruct on symptoms of exercise intolerance & actions to take, Instruct & monitor on saf, Assess intial functional capacity & safety risk and Other See below 30-day Reassessments 30 day Reassessments:: Progressing Reassessment Notes & Comments:: RPE explained to pt. Pt demonstrates understanding in her daily sessions. Exercise - 60-day Assessment Physician Prescribed Exercise Modalities: SciFit Stepper and SciFit Pro-II Ergometer Exercise - 90-day Assessment Physician Prescribed Exercise Modalities: SciFit Stepper and SciFit Pro-II Ergometer Exercise - Final/Discharge Physician Prescribed Exercise Modalities: SciFit Stepper and SciFit Pro-II Ergometer Nutrition - 30-Day Assessment Program Goals Nutrition Program Goals Patient has diagnosis of Hyperlipidemia (ICD E78)?: Yes Visit Date of Eval: 01/07/25 Session #:: 8 Cholesterol/Lipids (Other Core Measures) Determine presence & major risk factors that modify LDL goal: Hypertension or hypertensive medication, Low HDL cholesterol <40 mg/dL*, Family history of premature CHD in Male < 55 years: female <65 yearsFa and Age men > 45 years; women >/= 55 years Outcomes/Goals: Pt IDs own risk factors & lifestyle modifications by Session 10,Ve (more content not included)... [facility] 36on 01-04-2025 36 Reviewed chart. Refi ll appropriate. RX sent. [facility] 36 Prescription Request : rosuvastatin (Crestor) 20 MG Last medication check: 12/28/24 Last physical exam: 05/04/24 Next scheduled appointment: 03/30/25 Last date of refill on this medication 12/28/24 (qty 30 refill 0) Normal [facility] 36on 01-03-2025 36 Refill sent. Normal [facility] Cardiac Cath [facility] Cardiac Cath Diagnostic [facility] Imaging Services [address] [place] [address] Cardiac Cath Diagnostic MR#: [id number] Acct: [id number] Name: YODIT LANDIN Rep #: [id number] : 1955 69 From: Cheo Mckenzie MD PCP: Dr. Moshe Key MD Status:DIS IN Patient Name: YODIT LANDIN Study Date: 12/06/2024 Performing: Cheo Mckenzie MD Ht: 64 inches 162.56 cm : 1955 Wt: 214.29 lbs 97.2 kg Age: 69 Gender: female BSA: 2.01 PROCEDURE(S) PERFORMED [id number]-([id number])LHC/COR/LV CLINICAL PROFILE AND INDICATIONS Indications: Suspected CAD Heart Failure: None Stress/Imaging Stress/Image Study Performed: No CAD Presentations: Non-STEMI. Symptom onset Date/Time: 12/05/24 Time Not Available CONCLUSIONS Coronary artery disease involving a totally occluded right coronary artery and high-grade stenosis of the obtuse marginal branch. Left ventricular dysfunction involving a severely hypokinetic basal inferior wall. RECOMMENDATIONS Consider PCI to the right coronary artery DESCRIPTION OF PROCEDURE The patient arrived to the procedure lab. The risks and benefits of the procedure as well as a full description of our services here and current unavailability of surgical backup were fully explained to the patient and/or their significant other prior to the catheterization. The Timeout was completed, verifying the correct patient and procedure. The patient's procedural site was prepped and draped in the usual fashion. Local anesthetic was given subcutaneously to right radial region with Lidocaine 2%. Using a modified Seldinger technique, arterial access was obtained via the right radial artery, a 6Fr sheath was inserted. Left Coronary Artery selective angiography was performed in multiple views using a 5 Fr. 4.0 Zwolle catheter. Right Coronary Artery selective angiography was then performed in multiple views using a 5 Fr. 4.0 Zwolle catheter. Left Ventriculography was performed in NELSON projection using a 5 Fr. Pigtail catheter. CORONARY ANGIOGRAPHY DOMINANCE: Right Dominant LEFT HEART ASSESSMENT Left Ventricular Ejection Fraction: by LV Gram 50 % Inferior Basal Hypokinesis - Severe Depressed Left Ventricular systolic function LEFT MAIN: Angiographically normal, Mild calcification LEFT ANTERIOR DESCENDING ARTERY: Mild luminal irregularities less than 30% CIRCUMFLEX ARTERY: Medium size vessel with a first obtuse marginal branch which bifurcates the inferior branch of the bifurcation has about 80% stenosis and there is a small AV groove branch noted. The superior branch has mild disease only. RIGHT CORONARY ARTERY: MID RCA: is occluded COMPLICATIONS PROCEDURE MEDICATIONS Versed 1 mg IV Fentanyl 50 mcg IV Versed 1 mg IV Versed 1 mg IV Oxygen: 2 L/min via nasal cannula Heparin given IA 12/06/2024 10:27:31 Heparin 7000 unit(s) IV 12/06/2024 10:55:49 Verapamil 2.5mg, Ntg 100mcgs, 3000 units of Heparin given IA 12/06/2024 10:27:31 IV Bolus: .9 NaCl ml total 12/06/2024 10:33:21 SUMMARY OF HEMODYNAMIC DATA Time AIR REST ECG 10:00:32 AO 80/50 (62) SA 10:37:57 AO 90/64 (77) 10:41:50 LV 99/11, 18 10:44:15 LV 100/14, 19 10:44:23 LV 101/15, 24 10:45:05 LV 100/15, 20 10:45:14 LVp 100/15, 22 10:45:22 AOp 100/54 (74) 10:45:29 Signed By Cheo Mckenzie MD On 12/06/2024 10:58:35 Cheo Mckenzei MD 01/03/25 0946 Date Cheo Mckenzie MD Cosigner Signature: Date (if indicated) CC: Dr. Cheo Mckenzie MD; Dr. Moshe Key MD; Dr. Basim Cheema, Date Dictated: 12/06/24 1012 Date Transcribed: 12/06/24 1058 [employer] Control Officer: [place] Signed Normal [facility] Cardiac Cath Interventionon 01-03-2025 Cardiac Cath Intervention [facility] Imaging Services [address] [place] [address] Cardiac Cath Intervention MR#: [id number] Acct: [id number] Name: YODIT LANDIN Rep #: [id number] : 1955 69 From: Cheo Mckenzie MD PCP: Dr. Moshe Key MD Status:DIS IN Patient Name: YODIT LANDIN Study Date: 12/06/2024 Performing: Pennie Diaz MD Ht: 64 inches 162.56 cm : 1955 Wt: 214.29 lbs 97.2 kg Age: 69 Gender: female BSA: 2.01 PROCEDURE(S) PERFORMED IC12-(17673/C9600)RONALD W/WO PTCA, SINGLE CORONARY ARTERY CLINICAL PROFILE AND CO-MORBIDITIES Indications: Suspected CAD Heart Failure: None Stress/Imaging Stress/Image Study Performed: No CAD Presentations: Non-STEMI. Symptom onset Date/Time: 12/05/24 Time Not Available CONCLUSIONS Successful PTCA/RONALD Mid RCA using Gabbs Goodspring 2.5x22 mm,. post-dilated using 2.75 mm balloon RECOMMENDATIONS ASA Indefinitley P2Y12 inhibitors for atleast 6 months If symptomatc despite maximal medical therapy, then consider PCI to OM DESCRIPTION OF PROCEDURE The patient arrived to the procedure lab. The risks and benefits of the procedure as well as a full description of our services here and current unavailability of surgical backup were fully explained to the patient and/or their significant other prior to the catheterization. The Timeout was completed, verifying the correct patient and procedure. The patient's procedural site was prepped and draped in the usual fashion. Local anesthetic was given subcutaneously to right radial region with Lidocaine 2% Using a modified Seldinger technique,arterial access was obtained via the right radial artery, a 6Fr sheath was inserted. Left Coronary Artery selective angiography was performed in multiple views using a 5 Fr. 4.0 Zwolle catheter. Right Coronary Artery selective angiography was then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 [address] MCV (RBC) [Entitic vol] 95.9 fL Normal 81-99 [facility] Comment on above: Performed By: #### L 501.080 #### [facility] [address] [place], [address] Platelet mean volume (Bld) [Entitic vol] 10.4 fL Normal 6.2-12.0 [facility] Comment on above: Performed By: #### L 501.080 #### [facility] [address] [place], [address] Platelets (Bld) [#/Vol] 142 10*3/uL Low 150-450 [facility] Comment on above: Performed By: #### L 501.080 #### [facility] [address] [place], [address] RBC (Bld) [#/Vol] 3.18 10*6/uL Low 4.2-5.4 [facility] Comment on above: Performed By: #### L 501.080 #### [facility] [address] [place], [address] RDW SD 47.8 fl High 35.1-43.9 [facility] Comment on above: Performed By: #### L 501.080 #### [facility] [address] [place], [address] WBC (Bld) [#/Vol] 6.4 10*3/uL Normal 4.4-11.0 [facility] Comment on above: Performed By: #### L 501.080 #### [facility] [address] [place], [address] Calculated very low density lipoprotein (VLDL) cholesterol measurementOrdered By: Calista Weeks on 12-06-2024 Calculated very low density lipoprotein (VLDL) cholesterol measurement 52 mg/dL High 5-40 [facility] Comprehensive Metabolic Prof ilon 12-06-2024 Albumin [Mass/Vol] 3.9 g/dL Normal 3.4-4.8 [facility] Comment on above: Performed By: #### L 501.080 #### [facility] [address] [place], [address] Albumin/Globulin [Mass ratio] 1.5 {ratio} Normal 0.9-2.4 [facility] Comment on above: Performed By: #### L 501.080 #### [facility] [address] [place], [address] ALK PHOS 28 U/L Low 35-104 [facility] Comment on above: Performed By: #### L 501.080 #### [facility] [address] [place], [address] ALT [Catalytic activity/Vol] 24 U/L Normal <=34 [facility] Comment on above: Performed By: #### L 501.080 #### [facility] [address] [place], [address] AST [Catalytic activity/Vol] 73 U/L High <=31 [facility] Comment on above: Performed By: #### L 501.080 #### [facility] [address] [place], [address] Bilirubin [Mass/Vol] 0.26 mg/dL Normal 0.00-1.30 [facility] Comment on above: Performed By: #### L 501.080 #### [facility] [address] [place], [address] BUN/CRE 18.1 RATIO Normal 10-20 [facility] Comment on above: Performed By: #### L 501.080 #### [facility] [address] [place], [address] Calcium [Mass/Vol] 8.8 mg/dL Normal 7.6-11.0 [facility] Comment on above: Performed By: #### L 501.080 #### [facility] [address] [place], [address] Chloride [Moles/Vol] 101 mmol/L Normal 98-108 [facility] Comment on above: Performed By: #### L 501.080 #### [facility] [address] [place], [address] CO2 [Moles/Vol] 21.4 mmol/L Normal 21.0-32.0 [facility] Comment on above: Performed By: #### L 501.080 #### [facility] [address] [place], [address] Creatinine [Mass/Vol] 1.57 mg/dL High 0.70-1.20 [facility] Comment on above: Performed By: #### L 501.080 #### [facility] [address] [place], [address] ECRCL 37.74 ml/min Low 50-250 [facility] Comment on above: Performed By: #### L 501.080 #### [facility] [address] [place], [address] GAP 14 Normal 5-15 [facility] Comment on above: Performed By: #### L 501.080 #### [facility] [address] [place], [address] GFR/1.73 sq M.predicted among non-blacks MDRD (S/P/Bld) [Vol rate/Area] 35 mL/min/{1.73_m2} Low >60 [facility] Comment on above: Result Comment: mL/m in/1.73m2 CKD-EPI Creatinine Equation (2020) Performed By: #### L 501.080 #### [facility] [address] [place], [address] Globulin (S) [Mass/Vol] 2.6 g/dL Normal 2.2-4.2 [facility] Comment on above: Performed By: #### L 501.080 #### [facility] [address] [place], [address] Glucose [Mass/Vol] 142 mg/dL High 70-99 [facility] Comment on above: Performed By: #### L 501.080 #### [facility] [address] [place], [address] Potassium [Moles/Vol] 4.0 mmol/L Normal 3.3-5.1 [facility] Comment on above: Performed By: #### L 501.080 #### [facility] [address] [place], [address] Sodium [Moles/Vol] 137 mmol/L Normal 133-145 [facility] Comment on above: Performed By: #### L 501.080 #### [facility] [address] [place], [address] T PROT 6.5 g/dL Normal 5.9-8.4 [facility] Comment on above: Performed By: #### L 501.080 #### [facility] [address] [place], [address] Urea nitrogen [Mass/Vol] 28 mg/dL High 4-19 [facility] Comment on above: Performed By: #### L 501.080 #### [facility] [address] [place], [address] Consultation - Cardiologyon 12-06-2024 Consultation - Cardiology [facility] Medical Records Department [address] [place] [address] Consultation - Cardiology 12/06/24 0839 MR#: [id number] Acct: [id number] Name: YODIT LANDIN Rep #: [id number] : 1955 69 From: Anup Womack MD PCP: Dr. Moshe Key MD Status:ADM IN Location: [place] [address] Assessment Plan Assessment/Plan (1) Non-ST elevation GA (NSTEMI): PLAN: Patient had minor nonspecific ST changes on her ECG. Enzymes were 730/773/806. The patient's had no recurrence of her chest symptoms since resolved the evening prior to admission. She is anemic with a hemoglobin of 10.3 she has multiple cardiovascular risk factors. The patient is not allergic to iodine echocardiogram showed what appeared to to be near normal LV function. Official reading is pending. I recommend the patient undergo left heart catheterization. The procedure risk/benefit and alternatives were explained to the patient she voiced understanding and agrees to proceed. (2) Anemia: QUALIFIERS: Anemia type: unspecified type Qualified Code(s): D64.9 - Anemia, unspecified PLAN: Patient carries a history of anemia initial hemoglobin is 11.1 recheck was 10.3 this morning. This is managed by the primary service she does have a history of hemochromatosis. 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 This is managed by the primary service. (4) High cholesterol: PLAN: Patient's lipids are managed by her primary care physician. She is on fenofibrate, omega-3 fatty acids, and rosuvastatin 10 mg daily. Her target LDL cholesterol should be less than 70 given her diabetes. (5) Hypertension: QUALIFIERS: Hypertension type: primary hypertension Qualified Code(s): I10 - Essential (primary) hypertension PLAN: Blood pressure appears to be adequate controlled on her current medical therapy. This will be continued long-term. PLAN: Plan 1. Recommend left heart catheterization later today. 2. Further recommendations pending outcome of the cath. HPI Consult Data Date of Consult: 12/06/24 HPI Narrative Reason for Consultation: Chest pain with positive enzymes HPI Narrative: YODIT LANDIN, is a 69 F who presents after environmental exposure to paint fumes when she was painting in her house. She developed chest discomfort inhaling the paint fumes that lasted several hours and finally resolved in the evening hours. This was the day prior to her coming to the emergency department. Upon arrival to the emergency department the patient's ECG on 12/05/2024 showed a normal sinus rhythm at [address] changes. Her initial enzymes troponin was 730 seconds at seven 73/3 at 806. Her BNP was 2390. The patient carries a history of hypothyroidism obesity hypertension hyperlipidemia and diabetes chronic kidney disease and anemia. The patient's AST was also elevated at 73 on admission. Patient's creatinine clearance was 38 GFR 35. Patient denies any chest symptoms since admission. Echocardiogram being performed showed what appeared to be near normal LV function EF estimated 50% visually is up luminary reading. Patient's current risk factors include a family history, hypertension, hyperlipidemia, diabetes, and remote smoker quit 7 years ago. [facility] Medical History (Updated 12/06/24 @ 08:[address] Anup Womack MD) Wears partial dentures Wears contact lenses Wears glasses Post-menopausal Thyroid disease Diabetes Arthritis High cholesterol Hemochromatosis Injury of head and neck Gastric reflux Former smoker History of pain when walking Hypertension History of echocardiogram Dehydration Nausea vomiting and diarrhea Home Medications ???Medication ???Instructions ???Recorded ???Last Taken ???Type chlorthalidone 25 mg tablet 25 mg PO DAILY 01/16/24 03/28/24 H istory furosemide 20 mg tablet 20 mg PO DAILY 01/16/24 03/28/24 H istory irbesartan 300 mg tablet 300 mg PO DAILY 01/16/24 03/29/24 History levothyroxine 75 mcg capsule 150 mcg PO DAILY 01/16/24 03/29/24 History metformin 1,000 mg tablet 1,000 mg PO .QAM 01/16/24 03/28/24 History omega 0-cjo-ehj-fish oil 1,200 mg 1 cap PO DAILY 01/16/24 03/28/24 History (144 mg-216 mg) capsule (Fish Oil) omeprazole 40 mg capsule,delayed 40 mg PO QDAY 01/16/24 03/29/24 Hi story release vitamin E (dl, acetate) 180 mg 180 mg PO DAILY 01/16/24 03/28/24 History (400 unit) capsule digestive enzymes 1 tab PO TID 03/15/24 03/28/24 His tory ergocalciferol (vitamin D2) 1,250 1,250 mcg PO QWEEK 03/15/2403/27 History mcg (50,000 unit) capsule (Vitamin D2) metformin (more content not included)... Normal [facility] Echocardiogram study reportO rdered By: Cheo Mckenzie on 12-06-2024 Study report [facility] [address] [place] [address] Echo Complete 12/05/242009 MR#: [id number] Acct: [id number] Name: YODIT LANDIN VIVIAN Rep #:[id number] : 1955 69 From: Cheo العلي Attending Dr: Dr. Basim Cheema, DO Status: ADM IN Ordering Dr: Calista Weeks MD Date: 12/05/24 Location: PCU Sex: F C Admitted: 12/05/24 Reason For Study Reason For Study: NSTEMI Procedure This was a 2D Doppler, Color Flow transthoracic echocardiogram. Exam performed portable in patient room. Left Ventricle Normal LV size. Left ventricular systolic function is normal. The estimated ejection fraction is 54 %. Stage 1 diastolic dysfunction. Infero-Basal: Severely Hypokinetic. Basal inferoseptal: Severely Hypokinetic. The rest of the wall segments are normal. Atria Normal left atrium. Normal right atrium. Mitral Valve There is moderate mitral annular calcification. Tricuspid Valve Normal tricuspid valve. Mild tricuspid valve insufficiency. Pulmonary artery systolic pressure is 25 mmHg. Aortic Valve Trisinus/trileaflet aortic valve. Pulmonic Valve The pulmonic valve is not well visualized. Great Vessels Normal aortic root. The pulmonary artery is normal size. Inferior vena cava collapse with respiration. Pericardium/Pleural No pericardial effusion. MMode/2D Measurements & Calculations LVIDd: 3.8 cm IVSd: 1.2 cm LVOT diam: 2.0 cm LVIDs: 2.1 cm LVPWd: 0.95 cm LVOT area: 3.2 cm2 RVDd: 3.1 cm FS: 45.5 % asc Aorta Diam: 3.2 cm LAV(MOD-bp): 37.2 ml LVAd ap4: 17.2 cm2 LAV(MOD-bp) Indexed: 18.5 ml/m2 LVLd ap4: 7.2 cm LAV(MOD-sp2): 35.4 ml EDV(MOD-sp4): 34.7 ml LAV(MOD-sp4): 35.9 ml EDV(sp4-el): 34.7 ml LVAs ap4: 10.5 cm2 LVLs ap4: 6.4 cm ESV(MOD-sp4): 15.4 ml ESV(sp4-el): 14.8 ml EF(MOD-sp4): 55.5 % EF(sp4-el): 57.5 % LVAd ap2: 16.0 cm2 SV(MOD-sp4): 19.2 ml SV(MOD-sp2): 17.2 ml LVLd ap2: 7.0 cm SI(MOD-sp4): 9.6 ml/m2 SI(MOD-sp2): 8.6 ml/m2 EDV(MOD-sp2): 31.6 ml EDV(sp2-el): 31.2 ml LVAs ap2: 9.8 cm2 LVLs ap2: 6.1 cm ESV(MOD-sp2): 14.4 ml ESV(sp2-el): 13.5 ml EF(MOD-sp2): 54.5 % SV(sp4-el): 19.9 ml Ao sinus diam: 2.[address] Junction: 2.2 cm LA dimension(2D): 3.7 cm LA A4 area: 15.6 cm2 RA A4 area: 9.4 cm2 TAPSE: 1.4 cm Time Measurements MV dec time: 0.26 sec Doppler Measurements & Calculations MV E max keyla: 85.5 cm/sec Lat Peak E' Keyla: 8.5 cm/sec Med Peak E' Keyla: 7.2 cm/sec MV A max keyla: 138.5 cm/sec E/E' lat: 10.1 E/E' med: 11.9 MV E/A: 0.62 MV dec slope: 324.6 cm/sec2 Ao V2 max: 186.2 cm/sec LV V1 max: 109.6 cm/sec Ao max P.9 mmHg LV V1 max P.8 mmHg Ao V2 mean: 137.6 cm/sec LV V1 mean P.5 mmHg Ao mean P.4 mmHg LV V1 mean: 73.8 cm/sec Ao V2 VTI: 41.6 cm LV V1 VTI: 20.8 cm AV (velocity ratio): 0.50 ROOSEVELT(I,D): 1.6 cm2 ROOSEVELT(V,D): 1.9 cm2 SV(LVOT): 66.8 ml PA V2 max: 83.9 cm/sec TR max keyla: 236.3 cm/sec TR max P.3 mmHg ECHO/Echo Complete Interpretation Summary Normal LV size. Left ventricular systolic function is normal. Stage 1 diastolic dysfunction. The estimated ejection fraction is 54 %. Pulmonary artery systolic pressure is 25 mmHg. Ordering Physician: Calista Weeks Performed By: Patience Valenzuela RDCS 12/06/24 1110 Date _ Cheo Mckenzie MD CC: Dr. Calista Weeks MD; Dr. Moshe Key MD; Dr. 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 Basim Cheema DO Status: ADM IN Ordering Dr: Phyllis Miles te: 12/05/24 Location: [facility] Sex: F C Admitted: 12/05/24 Test Reason : GENERAL Blood Pressure : */* mmHG Vent. Rate : 80 BPM Atrial Rate : * BPM P-R Int : * ms QRS Dur : 84 ms QT Int : 372 ms P-R-T Axes : * -2 44 degrees QTcB Int : 429 ms sinus tach with PAC's and sinus arrhythmia Abnormal ECG Confirmed by Anup Womack ([id number]), international editorial producer KAROL SHAY ([id number]) on 12/06/2024 1:04:41 PM Referred By: Confirmed By: Anup Womack 12/06/24 1304 Date _ Anup Womack MD CC: Dr. Moshe Key MD; Dr. Basim Cheema DO; KIZZY Ortiz ~ Signed [facility] Work Phone: Eosinophil %Ordered By: Jason Weeks on 12-06-2024 Eosinophils/100 WBC (Bld) 0.5 % 0-5 [facility] Hemoglobin A1con 12-06-2024 HbA1c (Bld) [Mass fraction] 6.8 % High <=5.6 [facility] Comment on above: Result Comment: Norm al < 5.7 % Prediabetic 5.7 - 6.4 % Diabetic >or= 6.5 % Please note range changes. Performed By: #### L 501.080 #### [facility] [address] [place], [place], [address] Hemoglobin A1c percentageOrd ered By: Calista Weeks on 12-06-2024 HbA1c (Bld) [Mass fraction] 6.8 % High <5.7 [facility] Comment on above: Normal < 5.7 % Predi abetic 5.7 - 6.4 % Diabetic >or= 6.5 % Please note range changes. Immature granulocyte percent ageOrdered By: Calista Weeks on 12-06-2024 Immature granulocytes/100 WBC (Bld) 0.300 % 0.0-0.9 [facility] Comment on above: IG% - Immature Granu locytes (promyelocytes, myelocytes and metamyelocytes) > 1% indicates that a LEFT SHIFT is Present. LDL calc ser/plasOrdered By: Calista Weeks on 12-06-2024 Cholesterol in LDL [Mass/Vol] 75 mg/dL [facility] Comment on above: Wepsrijryt=669-820 m g/dL & Higher Crsy=163 mg/dL or greater Lipid Profileon 12-06-2024 CHOL:HDL 4.18 Normal [facility] Comment on above: Performed By: #### L 501.080 #### [facility] [address] [place], [address] Cholesterol [Mass/Vol] 166 mg/dL Normal <=200 [facility] Comment on above: Result Comment: Chol esterol level, Desirable <200 mg/dL Borderline high cholesterol 200-239 mg/dL High cholesterol >=240 mg/dL Recommendations of the NCEP Adult Treatment Panel for the following risk-cutoff thresholds for the [place] population. Performed By: #### L 501.080 #### [facility] [address] [place], [address] Cholesterol in HDL [Mass/Vol] 40 mg/dL Normal [facility] Comment on above: Result Comment: Lilly onal Cholesterol Education Program (NCEP) guidelines: <40 mg/dL: Low HDL-cholesterol (major risk factor for CHD) >= 60 mg/dL: High HDL-cholesterol (negative risk factor for CHD) HDL-cholesterol is affected by a number of factors, e.g. smoking, exercise, hormones, sex and age. Performed By: #### L 501.080 #### [facility] [address] [place], [address] Cholesterol in LDL [Mass/Vol] 75 mg/dL Normal [facility] Comment on above: Result Comment: Bord fziqla=992-667 mg/dL Higher Eolc=200 mg/dL or greater Performed By: #### L 501.080 #### [facility] [address] [place], [address] Cholesterol in VLDL [Mass/Vol] 52 mg/dL High 5-40 [facility] Comment on above: Performed By: #### L 501.080 #### [facility] [address] [place], [address] Triglyceride [Mass/Vol] 258 mg/dL High [facility] Comment on above: Result Comment: The drugs N-Acetylcysteine and Metamizole may falsely depress this assay. Normal range: <150 mg/dL Borderline High: 150-199 mg/dL High: 200-499 mg/dL Very High: >500 mg/dL Performed By: #### L 501.080 #### [facility] [address] [place], [address] Lymphocyte %Ordered By: Jason oh White on 12-06-2024 Lymphocytes/100 WBC (Bld) 25.5 % 19-41 [facility] Monocyte percentageOrdered B y: Calista White on 12-06-2024 Monocytes/100 WBC (Bld) 8.0 % 0-10 [facility] Neutrophil %Ordered By: Jason Weeks on 12-06-2024 Neutrophils/100 WBC (Bld) 65.4 % 47-70 [facility] Partial Thromboplast Timeon 12-06-2024 aPTT Coag (Bld) [Time] 50.6 s High 24.1-36.2 [facility] Comment on above: Performed By: #### L 501.080 #### [facility] [address] [place], [address] Screening total cholesterol/ high density lipoprotein (HDL) cholesterol ratioOrdered By: Calista Weeks on 12-06-2024 Cholesterol.total/Trudy sterol in HDL [Mass ratio] 4.18 {ratio} [facility] Serum or plasma cholesterol in HDL measurement (mass/volume)Ordered By: Calista Weeks on 12-06-2024 Cholesterol in HDL [Mass/Vol] 40 mg/dL >40 [facility] Comment on above: National Cholesterol Education Program (NCEP) guidelines:<40 mg/dL: Low HDL-cholesterol (major risk factor for CHD)>= 60 mg/dL: High HDL-cholesterol (negative risk factor for CHD)HDL-cholesterol is affected by a number of factors, e.g. smoking, exercise, hormones, sex and age. Serum or plasma cholesterol measurement (mass/volume)Ordered By: Calista Weeks on 12-06-2024 Cholesterol [Mass/Vol] 166 mg/dL <201 [facility] Comment on above: Cholesterol level, D esirable <200 mg/dLBorderline high cholesterol 200-239 mg/dLHigh cholesterol >=240 mg/dLRecommendations of the NCEP Adult Treatment Panel for the following risk-cutoff thresholds for the [place] population. Triglycerides measurementOrd ered By: Calista Weeks on 12-06-2024 Triglyceride [Mass/Vol] 258 mg/dL High <199 [facility] Comment on above: The drugs N-Acetylcy steine and Metamizole may falsely depress this assay. Normal range: <150 mg/dLBorderline High: 150-199 mg/dLHigh: 200-499 mg/dLVery High: >500 mg/dL 12 Lead EKGon 12-05-2024 12 Lead EKG [facility] Cardiovascular Services [address] [place] [address] 12 Lead EKG 12/05/242008 MR#: [id number] Acct: [id number] Name: YODIT LANDIN VIVIAN Rep #: [id number] : 1955 69 From: Rula Harrison MD Attending Dr: Dr. Basim Cheema, DO Status: ADM IN Ordering Dr: Calista Weeks MD Date: 12/05/24 Location: U Sex: F C Admitted: 12/05/24 Test Reason : CP ADMISSION Blood Pressure : */* mmHG Vent. Rate : 84 BPM Atrial Rate : 84 BPM P-R Int : 152 ms QRS Dur : 84 ms QT Int : 368 ms P-R-T Axes : 27 -7 33 degrees QTcB Int : 434 ms Normal sinus rhythm Low voltage QRS Nonspecific ST abnormality Abnormal ECG When compared with ECG of 05-Dec-2024 13:44, MANUAL COMPARISON REQUIRED DATA IS UNCONFIRMED Confirmed by MD LIAN, RULA ([id number]), international editorial producer KAROL SHAY ([id number]) on 12/07/2024 10:58:02 AM Referred By: Confirmed By: RULA HARRISON MD 12/07/24 105 Date Rula Harrison MD CC: Dr. Calista Weeks MD; Dr. Moshe Key MD; Dr. Basim Cheema, DO Signed Normal [facility] 12 Lead EKG [facility] Cardi[facility] Services [address] [place] [address] 12 Lead EKG 12/05/24 1344 MR#: [id number] Acct: [id number] Name: YODIT LANDIN VIVIAN Rep #: [id number] : 1955 69 From: Anup Womack MD Attending Dr: Dr. Basim Cheema, DO Status: ADM IN Ordering Dr: Phyllis Miles Date: 12/05/24 Location: U Sex: F C Admitted: 12/05/24 Test Reason : GENERAL Blood Pressure : */* mmHG Vent. Rate : 80 BPM Atrial Rate : * BPM P-R Int : * ms QRS Dur : 84 ms QT Int : 372 ms P-R-T Axes : * -2 44 degrees QTcB Int : 429 ms sinus tach with PAC's and sinus arrhythmia Abnormal ECG Confirmed by Anup Womack ([id number]), international editorial producer KAROL SHAY ([id number]) on 12/06/2024 1:04:41 PM Referred By: Confirmed By: Anup Womack 12/06/24 1304 Date Anup Womack MD CC: Dr. oMshe Key MD; Dr. Basim Cheema DO; KIZZY Ortiz Signed Normal [facility] Abdomen/Pelvis W IV Cont ONL Yon 12-05-2024 Abdomen/Pelvis W IV Cont ONLY [facility] Imaging Services [address] [place] [id number] Abdomen/Pelvis W IV Cont ONLY MR#: [id number] Acct: [id number] Name: YODIT LANDIN VIVIAN Rep #: [id number] : 1955 F 69 From: Sebas Copeland MD PCP: Dr. Moshe Key MD Status: REG ER Study: Abdomen/Pelvis W IV Cont ONLY Date of Exam: Exam# [id number] Ordering Dr: Keaton Sotelo DO PROCEDURE: ABDOMEN/PELVIS W IV CONT ONLY 12/05/2024 REASON FOR EXAM: ABDOMINAL PAIN TECHNIQUE: ABDOMEN/PELVIS W IV CONT ONLY Coronal and Sagittal reconstruction series were provided. CONTRAST: Isovue 370 VOLUME: 70 mL One or more dose reduction techniques were used (e.g., Automated exposure control, adjustment of the mA and/or kV according to patient size, use of iterative reconstruction technique. RADIATION DOSE SUMMARY: CTDlvol: 23.3 mGy DLP: 1786 mGycm COMPARISON: None FINDINGS: Lung bases: Lung bases are clear. Multivessel coronary calcifications. Aortic valvular and thoracic aortic calcification. Small hiatal hernia. Liver: Unremarkable. Gallbladder: Surgically absent. Spleen: Unremarkable Pancreas: Normal size without evidence of mass surrounding inflammation or ductal dilation. Adrenals: Unremarkable Kidneys: No hydronephrosis or radiodense stone Bladder: Unremarkable. Reproductive Organs: Prior hysterectomy. Adnexal regions are unremarkable. Bowel: No obstruction or inflammation. There is colonic diverticulosis without significant inflammatory changes to suggest acute diverticulitis. Appendix: The appendix is not identified. There is no inflammatory process identified in the right lower quadrant to suggest appendicitis. Lymph nodes: Slightly prominent subcentimeter nodes in the upper abdomen. Vasculature: Diffuse atherosclerotic calcifications are noted. Bones: Degenerative changes of the spine. Postoperative changes at L5-S1, without evidence of hardware complication. Soft tissues: Unremarkable CT/Abdomen/Pelvis W IV Cont ONLY IMPRESSION: 1. No acute intra-abdominal abnormality. 2. Colonic diverticulosis, without additional findings to suggest acute diverticulitis. Reading Location: [id number] CC: Dr. Moshe Key MD; Dr. Keaton Sotelo DO Forest [employer] Control Officer: Signed Normal [facility] Basic Metabolic Profile (BMP )on 12-05-2024 BUN/CRE 17.6 RATIO Normal 10-20 [facility] Comment on above: Performed By: #### L 501.080 #### [facility] [address] [place], [address] Calcium [Mass/Vol] 9.3 mg/dL Normal 7.6-11.0 [facility] Comment on above: Performed By: #### L 501.080 #### [facility] [address] [place], [address] Chloride [Moles/Vol] 99 mmol/L Normal 98-108 [facility] Comment on above: Performed By: #### L 501.080 #### [facility] [address] [place], [address] CO2 [Moles/Vol] 22.5 mmol/L Normal 21.0-32.0 [facility] Comment on above: Performed By: #### L 501.080 #### [facility] [address] [place], [address] Creatinine [Mass/Vol] 1.78 mg/dL High 0.70-1.20 [facility] Comment on above: Performed By: #### L 501.080 #### [facility] [address] [place], [address] ECRCL 32.80 ml/min Low 50-250 [facility] Comment on above: Performed By: #### L 501.080 #### [facility] [address] [place], [address] GAP 16 High 5-15 [facility] Comment on above: Performed By: #### L 501.080 #### [facility] [address] [place], [address] GFR/1.73 sq M.predicted among non-blacks MDRD (S/P/Bld) [Vol rate/Area] 30 mL/min/{1.73_m2} Low >60 [facility] Comment on above: Result Comment: mL/m in/1.73m2 CKD-EPI Creatinine Equation (2020) Performed By: #### L 501.080 #### [facility] [address] [place], [address] Glucose [Mass/Vol] 145 mg/dL High 70-99 [facility] Comment on above: Performed By: #### L 501.080 #### [facility] [address] [place], [address] Potassium [Moles/Vol] 4.1 mmol/L Normal 3.3-5.1 [facility] Comment on above: Performed By: #### L 501.080 #### [facility] [address] [place], [address] Sodium [Moles/Vol] 138 mmol/L Normal 133-145 [facility] Comment on above: Performed By: #### L 501.080 #### [facility] [address] [place], [address] Urea nitrogen [Mass/Vol] 31 mg/dL High 4-19 [facility] Comment on above: Performed By: #### L 501.080 #### [facility] [address] [place], [address] Bedside Glucoseon 12-05-2024 FINGERSTICK GLU 161 mg/dL High 74-106 [facility] Comment on above: Result Comment: RANDI DUNLAP OF PATIENT CARE PER NURSING PROTOCOL Performed By: #### L 501.080 #### [facility] [address] [place],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 CBC auto differential; Future Ferritin; Future Iron and TIBC; Future CBC auto differential Ferritin Iron and TIBC Normal [facility] Progress Note Initially elevated, recheck was normal, continue chlorthalidone 25 mg daily and irbesartan 300 mg daily Normal [facility] Progress Note [facility] [address] [address] [facility] [address] [facility] [address] Visit Type: Medicare Annual Wellness PCP: Moshe Key MD Reason for Visit: Medicare Annual Wellness Visit Subsequent, Blood Work, and Health Maintenance (Tdap vaccine- agree/2nd shingles vaccine- advised to go to pharmacy /Dental exam- not done/Eye exam- go to [facility] in [place] - will send for record ) Assessment [...] complication, without long-term current use of insulin ([facility]/HCC) (HCC) Controlled, continue metformin 1000 mg twice [...] Out HIB Vaccines (more content not included)... [facility] Progress Note Stable, continue omeprazole 40 mg daily [facility] 36on 05-03-2024 36 lm to pre-visit plan for appointment with Dr Key on 05/04/24 9:30. Please ask patient to arrive 15 minutes early with Photo ID, insurance card Fasting: yes Put call through to office for pvp [facility] 36 Prescription Request : Last medication check: 01/21/2024 Last physical exam: 04/23/2023 Next scheduled appointment: 05/04/2024 Last date of refill on this medication: 12/03/2023 [facility] 36on 04-19-2024 36 Faxed. Notified patient. [facility] 36 Order placed for Vestibular therapy- please fax and notify patient [facility] 36 Name of caller: Juan salgado Contact phone number: [phone] Relationship to Patient: patient Provider: Colin Practice: [...] for vertigo to Barbra Clifton at the [facility] at fax [phone]. She stated she has PT appointments on Friday's and Friday's. Please advise and notify the patient when this has been done. Best time of day caller can be reached: any Patient advised that office/PCP has 24-48 business hours to return their call: No Normal [facility] Re-Evaluation - PT (1)on Re-Evaluation - PT (1) [facility] [address] [place] [address] / REEVALUATION / MEDICARE RECERTIFICATION PHYSICAL THERAPY MR#: [id number] Acct: [id number] Name: YODIT LANDIN Rep #: [id number] : 1955 68 From: Barbra Clifton MPT Referring Dr.: Dr. Arnold Morton MD Status:REG RCR Insurance: [facility] ADV LIFE1 SELF PAY INSURANCE [...] do not hesitate to contact me at [phone] by phone or if you have questions or concerns regarding this new plan of care! Sincerely, Barbra Clifton, DIMAS 04/19/24 0616 CC: Dr. Arnold Morton MD; Dr. Moshe Key MD Signed For Medicare only, by signing this I certify the plan of care. Physicians Signature Date Normal [facility] Lumbar Spine 2 or 3 Viewson 04-15-2024 Lumbar Spine 2 or 3 Views [facility] [address] [place] [address] Lumbar Spine 2 or 3 Views MR#: [id number] Acct: [id number] Name: YODIT LANDIN VIVIAN Rep #: [id number] : 1955 F 68 From: Jef Menjivar MD PCP: Dr. Moshe Key MD Status: DEP AMB Study: Lumbar Spine 2 or 3 Views Date of Exam: Exam# [id number] Ordering Dr: Enriqueta [place] [id number] EXAM: XR LUMBOSACRAL SPINE, 2 OR 3 [...] CC: KIZZY Hebert; Dr. Moshe Key MD Forest Fire Control Officer: Signed Normal [facility] Orthopedic Visit Reporton Orthopedic Visit Report [facility] [address] [place] [address] OFFICE VISIT Date of Service: 04/15/24 MR#: [id number] Acct: [id number] Name: YODIT LANDIN Rep #: [id number] : 1955 Provider: Dr. Arnold Morton MD Age/Sex: 68/F Location: [facility] Status: Signed Intake Vital Signs 02/05/24 16:00 [...] mg PO .QAM 01/16/24 04/15/24 History omega 8-wip-xvv-fish oil 1,200 mg 1 cap PO DAILY [...] cap PO TID 03/15/24 04/15/24 History 31.25 oiy-hpcb-ejtvvzpbq-quer cet capsule (Immune Essentials Daily) acetaminophen 500 [...] by me, Dr. Arnold Morton MD 04/15/24 5925. Part of today???s visit was documented by [...] bending, lifting, (more content not included)... Normal [facility] DBT Breast - bilateral scree gómze 02-24-2024 No mammographic evidence of malignancy. ASSESSMENT: [...] Electronically Signed Date/Time: 02/24/2024 8:42 AM EDT [facility] Patient Name: YODIT LANDIN : 1955 Exam Date/Time: 02/23/2024 10:59 Procedure: BI MAMMOGRAM SCREENING TOMOSYNTHESIS BILATERAL Ordering Provider: HEMPHILL REBECCA Reason For Exam: This exam was performed at: [place] [address] RISK ALERT: The Cancer Risk Assessment scores [...] images: BB's = Nipples; skin lesions Open [place] = Palpable Line = Scar COMPARISON: 01/01/2022, 02/12/2023 TISSUE DENSITY: BIRADS B - There are scattered areas of fibroglandular density. FINDINGS: No suspicious masses, architectural distortions or suspiciously clustered microcalcifications are identified. There is no evidence of skin thickening or nipple retraction. There are no significant changes when compared with prior studies. [facility] Sanjuanita Riley MD - 02/24/2024 Patient Name: YODIT LANDIN : 1955 Exam Date/Time: 02/23/2024 10:59 Procedure: BI MAMMOGRAM SCREENING TOMOSYNTHESIS BILATERAL Ordering Provider: HEMPHILL REBECCA Reason For Exam: This exam was performed at: [place] [address] RISK ALERT: The Cancer Risk Assessment scores [...] images: BB's = Nipples; skin lesions Open [place] = Palpable Line = Scar COMPARISON: 01/01/2022, [...] Electronically Signed Date/Time: 02/24/2024 8:42 AM EDT [facility] DBT Breast - bilateral scree ningOrdered By: Sanjuanita Riley on 02-24-2024 [facility] Work Phone: DBT Breast - bilateral scree ningon 02-23-2024 Radiology Study observation (narrative) [facility] US Heart TransthoracicOrdere d By: Uriel Macias on 02-12-2024 Ao Root Index 1.24 cm/m2 [facility] Work Phone: Aortic Root 2.4 cm [facility] Work Phone: Aortic Sinus Valsalva 2.4 cm [facility] Work Phone: Aortic Sinus Valsalva Index 1.24 cm/m2 [facility] Work Phone: Ascending Aorta 3.1 cm [facility] Work Phone: Ascending Aorta Index 1.60 cm/m2 [facility] Work Phone: AV Area by Peak Velocity 1.4 cm2 [facility] Work Phone: AV Area by VTI 1.4 cm2 [facility] Work Phone: AV Mean Gradient 9 mmHg [facility] Work Phone: AV Mean Velocity 1.4 m/s [facility] Work Phone: AV Peak Gradient 16 mmHg [facility] Work Phone: AV Peak Velocity 2.0 m/s [facility] Work Phone: AV Velocity Ratio 0.65 [facility] Work Phone: AV VTI 41.6 cm [facility] Work Phone: ROOSEVELT/BSA Peak Velocity 0.7 cm2/m2 [facility] Work Phone: ROOSE[place]T/BSA VTI 0.7 cm2/m2 [facility] Work Phone: E/E' Lateral 18.20 [facility] Work Phone: E/E' Ratio (Averaged) 18.20 [facility] Work Phone: E/E' Septal 18.20 [facility] Work Phone: EF BP 55 % 55 - 100 % [facility] Work Phone: Fractional Shortening 2D 33 % 28 - 44 % [facility] Work Phone: Global Longitudinal Strain -17.1 % [facility] Work Phone: Interpretation and review of laboratory results Abnormal [facility] Work Phone: IVC Diameter 1.1 cm [facility] Work Phone: IVSd 1.0 cm Abnormal 0.6 - 0.9 cm [facility] Work Phone: LA Diameter 3.5 cm [facility] Work Phone: LA Size Index 1.80 cm/m2 [facility] Work Phone: LA Volume 2C 61 mL Abnormal 22 - 52 mL [facility] Work Phone: LA Volume 4C 71 mL Abnormal 22 - 52 mL [facility] Work Phone: LA Volume A/L 70 mL [facility] Work Phone: LA Volume BP 65 mL Abnormal 22 - 52 mL [facility] Work Phone: LA Volume Index 2C 31 mL/m2 16 - 34 mL/m2 [facility] Work Phone: LA Volume Index 4C 37 mL/m2 Abnormal 16 - 34 mL/m2 [facility] Work Phone: LA Volume Index A/L 36 mL/m2 16 - 34 mL/m2 [facility] Work Phone: LA Volume Index BP 34 ml/m2 16 - 34 ml/m2 [facility] Work Phone: LA/AO Root Ratio 1.46 [facility] Work Phone: LV E' Lateral Velocity 5 cm/s [facility] Work Phone: LV E' Septal Velocity 5 cm/s [facility] Work Phone: LV EDV A2C 109 mL [facility] Work Phone: LV EDV A4C 89 mL [facility] Work Phone: LV EDV BP 101 mL 56 - 104 mL [facility] Work Phone: LV EDV Index A2C 56 mL/m2 [facility] Work Phone: LV EDV Index A4C 46 mL/m2 [facility] Work Phone: LV EDV Index BP 52 mL/m2 [facility] Work Phone: LV Ejection Fraction A2C 58 [...] Phone: LV ESV Index BP 23 mL/m2 [facility] Work Phone: LV Mass 2D 137.2 g 67 - 162 g [facility] Work Phone: LV Mass 2D Index 70.7 g/m2 43 - 95 g/m2 [facility] Work Phone: LV RWT Ratio 0.48 [facility] Work Phone: LVIDd 4.2 cm 3.9 - 5.3 cm [facility] Work Phone: LVIDd Index 2.16 cm/m2 [facility] Work Phone: LVIDs 2.8 cm [facility] Work Phone: LVIDs Index 1.44 cm/m2 [facility] Work Phone: LVOT Area 2.3 cm2 [facility] Work Phone: LVOT Cardiac Output 4.8 liter/mi nut e [facility] Work Phone: LVOT Diameter 1.7 cm [facility] Work Phone: LVOT Mean Gradient 4 mmHg [facility] Work Phone: LVOT Peak Gradient 6 mmHg [facility] Work Phone: LVOT Peak Velocity 1.3 m/s [facility] Work Phone: LVOT Stroke Volume Index 31.0 mL/m2 [facility] Work Phone: [phone] LVOT SV 60.1 ml [facility] Work Phone: LVOT VTI 26.5 cm [facility] Work Phone: LVOT:AV VTI Index 0.64 [facility] Work Phone: LVPWd 1.0 cm Abnormal 0.6 - 0.9 cm [facility] Work Phone: MV A Velocity 1.30 m/s [facility] Work Phone: MV E Velocity 0.91 m/s [facility] Work Phone: MV E Wave Deceleration Time 259.8 ms [facility] Work Phone: MV E/A 0.70 [facility] Work Phone: RA Area 4C 16.2 [facility] Work Phone: RV Basal Dimension 2.7 cm [facility] Work Phone: RV Free Wall Peak S' 11 cm/s [facility] Work Phone: [phone] RV Mid Dimension 1.5 cm [facility] Work Phone: Sinotubular Junction 2.0 cm [facility] Work Phone: TAPSE 2.0 cm 1.7 cm [facility] Work Phone: [facility] Work Phone: US Heart Transthoracicon Left Ventricle: Left ventricle size [...] mmHg. No contrast was given. CV CPACS Absolute lymphocyte countOrd ered By: Juan Jose Stallworth on 07-01-2023 Lymphocytes Auto (Unsp spec) [#/Vol] 2.12 10*3/uL 0.83-4.51 [facility] Automated lymphocyte count a s percentage of total leukocytesOrdered By: Juan Jose Stallworth on 07-01-2023 Lymphocytes/100 WBC Auto (Unsp spec) 31.6 % 19-41 [facility] Basophil percentageOrdered B y: Juan Jose Stallworth on 07-01-2023 Basophil percentage 5-10 SEEN /hpf 0-5 [facility] Basophils/100 WBC (Bld) 0.3 % 0-1 [facility] Chloride [Moles/Vol] 99 mmol/L 98-107 [facility] Eosinophils/100 WBC (Bld) 3.6 % 0-5 [facility] Glucose [Mass/Vol] 123 mg/dL 74-106 [facility] Comment on above: Fasting Glucose resu lt from 100 to 125 mg/dL suggests IMPAIRED HOMEOSTASIS per A.D.A. criteria. Hemoglobin (Bld) [Mass/Vol] 12.0 g/dL 12.0-15.0 [facility] Monocytes/100 WBC (Bld) 12.1 % 0-10 [facility] Neutrophils (Bld) [#/Vol] 3.5 10*3/uL 2.0-7.7 [facility] Neutrophils/100 WBC (Bld) 52.3 % 47-70 [facility] Potassium [Moles/Vol] 3.5 mmol/L 3.5-5.1 [facility] Sodium [Moles/Vol] 133 mmol/L 136-145 [facility] WBC (Bld) [#/Vol] 6.7 10*3/uL 4.4-11.0 [facility] Bilirubin Test strip Ql (U)O rdered By: Juan Jose Stallworth on 07-01-2023 Bilirubin Ql (U) 1 mg/dL Negative [facility] Comment on above: COLOR OF URINE MAY A FFECT DIPSTICK RESULTS. Determination of erythrocyte mean corpuscular volume (MCV)Ordered By: Juan Jose Stallworth on 07-01-2023 MCV (RBC) [Entitic vol] 89.3 fL 81-99 [facility] Erythrocyte distribution wid th ratioOrdered By: Juan Jose Stallworth on 07-01-2023 Erythrocyte distribution width (RBC) [Ratio] 13.5 % 11.6-14.6 [facility] Erythrocyte distribution wid th standard deviationOrdered By: Juan Jose Stallworth on 07-01-2023 Erythrocyte distribution width (RBC) [Entitic vol] 44.1 fL 35.1-43.9 [facility] Hematocrit Auto (Bld) [Volum e fraction]Ordered By: Juan Jose Stallworth on 07-01-2023 Hematocrit (Bld) [Volume fraction] 35.9 % 37-47 [facility] Immature granulocytes/100 WB C Auto (Bld)Ordered By: Juan Jose Stallworth on 07-01-2023 Immature granulocytes/100 WBC (Bld) 0.100 % 0.0-0.9 [facility] Comment on above: IG% - Immature Granu locytes (promyelocytes, myelocytes and metamyelocytes) > 1% indicates that a LEFT SHIFT is Present. Ketones Test strip Ql (U)Ord ered By: Juan Jose Stallworth on 07-01-2023 Ketones Ql (U) 5 mg/dl Negative [facility] Laboratory - Chemistry and C hemistry - challengeOrdered By: Juan Jose Stallworth on 07-01-2023 CO2 [Moles/Vol] 27.0 mmol/L 21.0-32.0 [facility] Urea nitrogen/Creatinine [Mass ratio] 20.3 mg/mg 10-20 [facility] Laboratory - Hematology and Cell countsOrdered By: Juan Jose Stallworth on 07-01-2023 MCH (RBC) [Entitic mass] 29.9 pg 27.0-32.0 [facility] MCHC (RBC) [Mass/Vol] 33.4 g/dL 32-36 [facility] Nucleated RBC/100 WBC (Bld) [Ratio] 0 % 0-5 [facility] Platelet mean volume (Bld) [Entitic vol] 9.7 fL 6.2-12.0 [facility] Platelets (Bld) [#/Vol] 192 10*3/uL 150-450 [facility] Mucus LM Ql (Urine sed)Order ed By: Juan Jose Stallworth on 07-01-2023 Mucus Ql (Urine sed) 0 SEEN /hpf [facility] Nitrite Test strip Ql (U)Ord ered By: Juan Jose Stallworth on 07-01-2023 Nitrite Ql (U) Negative Negative [facility] No Panel InformationOrdered By: Juan Jose Stallworth on 07-01-2023 Urine RBC 0 SEEN /hpf 0-5 [facility] Estimated Creatinine Clearance Calc 27.28 ml/min [facility] Estimated GFR (MDRD) Amer 35 mL/min >60 [facility] Comment on above: GFR Calc Estimated GFR (MDRD) Non-Af Amer 29 mL/min >60 [facility] Comment on above: Non- GFR Calc Protein Test strip Ql (U)Ord ered By: Juan Jose Stallworth on 07-01-2023 Protein Ql (U) 15 mg/dl Negative [facility] RBC Auto (Bld) [#/Vol]Ordere d By: Juan Jose Stallworth on 07-01-2023 RBC (Bld) [#/Vol] 4.02 10*6/uL 4.2-5.4 [facility] Serum or plasma calcium bettina urement (mass/volume)Ordered By: Juan Jose Stallworth on 07-01-2023 Calcium [Mass/Vol] 8.7 mg/dL 8.5-10.1 [facility] Serum or plasma creatinine m easurement (mass/volume)Ordered By: Juan Jose Stallworth on 07-01-2023 Creatinine [Mass/Vol] 1.82 mg/dL 0.55-1.02 [facility] Comment on above: The validity of the calculated GFR & GFRAA in patients over 70 years has not been determined. Clinical correlation is essential. Serum or plasma urea nitroge n measurement (mass/volume)Ordered By: Juan Jose Stallworth on 07-01-2023 Urea nitrogen [Mass/Vol] 37 mg/dL 7-18 [facility] Squamous epithelial cells de tection in urine sediment by light microscopyOrdered By: Juan Jose Stallworth on 07-01-2023 Epithelial cells.squamous LM Ql (Urine sed) 0-5 SEEN /hpf 5-10 [facility] Thin prep Papanicolaou smear with manual screeningOrdered By: Juan Jose Stallworth on 07-01-2023 Thin prep Papanicolaou smear with manual screening 7 5-15 [facility] Urine blood detectionOrdered By: Juan Jose Stallworth on 07-01-2023 RBC Ql (U) Negative Negative [facility] Urine clarityOrdered By: Reyes Stallworth on 07-01-2023 Clarity (U) Sl. Cloudy Clear [facility] Urine color determinationOrd ered By: Juan Jose Stallworth on 07-01-2023 Color (U) Yellow Yellow [facility] Urine glucose detectionOrder ed By: Juan Jose Stallworth on 07-01-2023 Glucose Ql (U) Normal mg/dl Normal [facility] Urine leukocyte esterase det ection by dipstickOrdered By: Juan Jose Stallworth on 07-01-2023 Leukocyte esterase Test strip Ql (U) 100 /ul Negative [facility] Urine pHOrdered By: Juan Jose randhawa on 07-01-2023 pH (U) 5.0 [pH] 5.0 - 8.0 [facility] Urine sediment bacteria coun t by microscopy (number/high power field)Ordered By: Juan Jose Stallworth on 07-01-2023 Bacteria LM.HPF (Urine sed) [#/Area] 0 /[HPF] None Seen [facility] Urine specific gravity measu rementOrdered By: Juan Jose Stallworth on 07-01-2023 Specific gravity (U) [Rel density] 1.020 1.002-1.030 [facility] Urine urobilinogen measureme ntOrdered By: Juan Jose Stallworth on 07-01-2023 Urobilinogen Ql (U) 4 mg/dl Normal [facility] [place] XR WRIST MINIMUM 3 VIEWS RIG HTon [...] Date: 06/07/2023 7:22:26 AM Ordering Provider: SEDRICK KARRIECHRISTINA [facility] ([place]) Vital Signs Date Time Vital Sign Value Performing Clinician Facility 03-30-2025 11:28-0500 Body mass index (BMI) [Ratio] 35.95 kg/m2 Sedrick Bridenthal PATIENT SERVICE REPRESENTATIVE - TRAFFIC WORKFORCE REPRESENTATIVE Work Phone: [facility] 03-30-2025 11:28-0500 Body temperature 98.2 [degF] Serdick Bridenthal PATIENT SERVICE REPRESENTATIVE - TRAFFIC WORKFORCE REPRESENTATIVE Work Phone: [facility] 03-30-2025 11:28-0500 Body weight 93.53 kg Sedrick Bridenthal PATIENT SERVICE REPRESENTATIVE - TRAFFIC WORKFORCE REPRESENTATIVE Work Phone: [facility] 03-30-2025 11:28-0500 Diastolic blood pressure 64 mm[Hg] Sedrick Bridenthal PATIENT SERVICE REPRESENTATIVE - TRAFFIC WORKFORCE REPRESENTATIVE Work Phone: [facility] 03-30-2025 11:28-0500 Heart rate 75 /min Sedrick Karrieenthal PATIENT SERVICE REPRESENTATIVE - TRAFFIC WORKFORCE REPRESENTATIVE Work Phone: [facility] 03-30-2025 11:28-0500 Respiratory rate 24 /min Sedrick Karrieenthal PATIENT SERVICE REPRESENTATIVE - TRAFFIC WORKFORCE REPRESENTATIVE Work Phone: [facility] 03-30-2025 11:28-0500 SaO2% (BldA) [Mass fraction] 93 % Sedrick Bridenthal PATIENT SERVICE REPRESENTATIVE - TRAFFIC WORKFORCE REPRESENTATIVE Work Phone: [facility] 03-30-2025 11:28-0500 Systolic blood pressure 106 mm[Hg] Sedrickray Milleral PATIENT SERVICE REPRESENTATIVE - TRAFFIC WORKFORCE REPRESENTATIVE Work Phone: [facility] 03-29-2025 07:29-0500 Body height 162.[address] Moshe Key MD Work Phone: [facility] 03-29-2025 07:29-0500 Body weight 94.[address] Moshe Key MD Work Phone: [facility] 03-14-2025 07:40-0400 Body mass index (BMI) [Ratio] 35.3 kg/m2 Dr. Moshe Key MD Work Phone: 8(992)[phone] [place] [address] 03-14-2025 07:40-0400 Body weight 93.[address] Moshe Key MD Work Phone: [facility] 03-14-2025 07:40-0400 Diastolic blood pressure 80 mm[Hg] Dr. Moshe Key MD Work Phone: [facility] 03-14-2025 07:40-0400 Heart rate 89 /min Dr. Moshe Key MD Work Phone: [facility] 03-14-2025 07:40-0400 Respiratory rate 18 /min Dr. Moshe Key MD Work Phone: [facility] 03-14-2025 07:40-0400 SaO2% (BldA) [Mass fraction] 6 % Dr. Moshe Key MD Work Phone: [facility] 03-14-2025 07:40-0400 Systolic blood pressure 154 mm[Hg] Dr. Moshe Key MD Work Phone: [facility] 02-24-2025 10:41-0400 Body height 161.3 cm Sedrickray Milleral PATIENT SERVICE REPRESENTATIVE - TRAFFIC WORKFORCE REPRESENTATIVE Work Phone: [facility] 02-24-2025 10:41-0400 Body mass index (BMI) [Ratio] 34.87 kg/m2 Sedrickray Milleral PATIENT SERVICE REPRESENTATIVE - TRAFFIC WORKFORCE REPRESENTATIVE Work Phone: [facility] 02-24-2025 10:41-0400 Body weight 90.72 kg Sedrick Colin PATIENT SERVICE REPRESENTATIVE - TRAFFIC WORKFORCE REPRESENTATIVE Work Phone: [facility] 02-22-2025 10:26-0400 Body height 162.[address] Moshe Key MD Work Phone: [facility] 02-22-2025 10:26-0400 Body mass index (BMI) [Ratio] 34.3 kg/m2 Dr. Moshe Key MD Work Phone: [facility] 02-22-2025 10:26-0400 Body weight 90.[address] Moshe Key MD Work Phone: [facility] 02-04-2025 09:36-0400 Body weight 94.[address] Moshe Key MD Work Phone: [facility] 01-26-2025 15:44-0400 Body weight 94.[address] Moshe Key MD Work Phone: [facility] 01-07-2025 09:05-0400 Body height 162.[address] Moshe Key MD Work Phone: [facility] 01-07-2025 09:05-0400 Body weight 95.[address] Moshe Key MD Work Phone: [facility] 01-05-2025 14:53-0400 Body weight 94.[address] Moshe Key MD Work Phone: [facility] 12-28-2024 11:19-0400 Diastolic blood pressure 76 mm[Hg] Moshe Key MD Work Phone: [facility] 12-28-2024 11:19-0400 Heart rate 45 /min Moshe Key MD Work Phone: [facility] 12-28-2024 11:19-0400 Systolic blood pressure 143 mm[Hg] Moshe Key MD Work Phone: [facility] 12-28-2024 09:54-0400 Body height 161.3 cm Moshe Key MD Work Phone: [facility] 12-28-2024 09:54-0400 Body mass index (BMI) [Ratio] 36.09 kg/m2 Moshe Key MD Work Phone: [facility] 12-28-2024 09:54-0400 Body weight 93.89 kg Moshe Key MD Work Phone: [facility] 12-28-2024 09:54-0400 SaO2% (BldA) [Mass fraction] 96 % Moshe Key MD Work Phone: [facility] 12-13-2024 09:19-0400 Body mass index (BMI) [Ratio] 34.4 kg/m2 Dr. Moshe Key MD Work Phone: [facility] 12-13-2024 09:19-0400 Body weight 91.[address] Moshe Key MD Work Phone: [facility] 12-13-2024 09:19-0400 Diastolic blood pressure 66 mm[Hg] Dr. Moshe Key MD Work Phone: [facility] 12-13-2024 09:19-0400 Heart rate 75 /min Dr. Moshe Key MD Work Phone: [facility] 12-13-2024 09:19-0400 Respiratory rate 18 /min Dr. Moshe Key MD Work Phone: [facility] 12-13-2024 09:19-0400 Systolic blood pressure 102 mm[Hg] Dr. Moshe Key MD Work Phone: [facility] 12-10-2024 14:52-0400 Body mass index (BMI) [Ratio] 33.5 kg/m2 Dr. Moshe Key MD Work Phone: [facility] 12-10-2024 14:51-0400 Body height 162.[address] Moshe Key MD Work Phone: [facility] 12-10-2024 14:51-0400 Body weight 88.[address] Moshe Key MD Work Phone: [facility] 12-10-2024 14:22-0400 Diastolic blood pressure 72 mm[Hg] Dr. Moshe Key MD Work Phone: 6(108)600-797152 [place] [address] 12-10-2024 14:22-0400 Heart rate 68 /min Dr. Moshe Key MD Work Phone: 9(145)[phone] [place] [address] 12-10-2024 14:22-0400 SaO2% (BldA) [Mass fraction] 98 % Dr. Moshe Key MD Work Phone: 1(389)651-131617 [place] [address] 12-10-2024 14:22-0400 Systolic blood pressure 122 mm[Hg] Dr. Moshe Key MD Work Phone: 8(459)020-089352 [place] [address] 12-07-2024 12:04-0400 Body temperature 97.1 [degF] Dr. Moshe Key MD Work Phone: 8(964)284-325352 [place] [address] 12-07-2024 12:04-0400 Diastolic blood pressure 69 mm[Hg] Dr. Moshe Key MD Work Phone: 1(077)064-231717 [place] [address] 12-07-2024 12:04-0400 Heart rate 86 /min Dr. Moshe Key MD Work Phone: 9(755)995-202652 [place] [address] 12-07-2024 12:04-0400 Respiratory rate 16 /min Dr. Moshe Key MD Work Phone: 1(655)158-725552 [place] [address] 12-07-2024 12:04-0400 SaO2% (BldA) [Mass fraction] 96 % Dr. Moshe Key MD Work Phone: 1(694)573-535152 [place] [address] 12-07-2024 12:04-0400 Systolic blood pressure 119 mm[Hg] Dr. Moshe Key MD Work Phone: [facility] 12-07-2024 08:29-0400 Body temperature 98.4 [degF] Dr. Moshe Key MD Work Phone: [facility] 12-07-2024 08:29-0400 Diastolic blood pressure 72 mm[Hg] Dr. Moshe Key MD Work Phone: [facility] 12-07-2024 08:29-0400 Heart rate 88 /min Dr. Moshe Key MD Work Phone: [facility] 12-07-2024 08:29-0400 Respiratory rate 16 /min Dr. Moshe Key MD Work Phone: [facility] 12-07-2024 08:29-0400 SaO2% (BldA) [Mass fraction] 95 % Dr. Moshe Key MD Work Phone: [facility] 12-07-2024 08:29-0400 Systolic blood pressure 126 mm[Hg] Dr. Moshe Key MD Work Phone: [facility] 12-07-2024 04:46-0400 Body mass index (BMI) [Ratio] 36.6 kg/m2 Dr. Moshe Key MD Work Phone: [facility] 12-07-2024 04:46-0400 Body weight 96.[address] Moshe Key MD Work Phone: [facility] 12-06-2024 16:36-0400 Body height 162.[address] Moshe Key MD Work Phone: [facility] 12-06-2024 12:49-0400 Inhaled oxygen flow rate 2 L/min Dr. Moshe Key MD Work Phone: [facility] 06-28-2024 10:00-0500 Diastolic blood pressure 81 mm[Hg] Sedrickric Hemphill PATIENT SERVICE REPRESENTATIVE - TRAFFIC WORKFORCE REPRESENTATIVE Work Phone: [facility] 06-28-2024 10:00-0500 Systolic blood pressure 140 mm[Hg] Sedrick Bridenthal PATIENT SERVICE REPRESENTATIVE - TRAFFIC WORKFORCE REPRESENTATIVE Work Phone: [facility] 06-28-2024 09:30-0500 Body mass index (BMI) [Ratio] 35.95 kg/m2 Sedrick Bridenthal PATIENT SERVICE REPRESENTATIVE - TRAFFIC WORKFORCE REPRESENTATIVE Work Phone: [facility] 06-28-2024 09:30-0500 Body weight 93.53 kg Sedrick Bridenthal PATIENT SERVICE REPRESENTATIVE - TRAFFIC WORKFORCE REPRESENTATIVE Work Phone: [facility] 06-28-2024 09:30-0500 Heart rate 83 /min Sedrick Bridenthal PATIENT SERVICE REPRESENTATIVE - TRAFFIC WORKFORCE REPRESENTATIVE Work Phone: [facility] 06-28-2024 09:30-0500 Respiratory rate 24 /min Sedrick Bridenthal PATIENT SERVICE REPRESENTATIVE - TRAFFIC WORKFORCE REPRESENTATIVE Work Phone: [facility] 06-28-2024 09:30-0500 SaO2% (BldA) [Mass fraction] 98 % Sedrick Bridenthal PATIENT SERVICE REPRESENTATIVE - TRAFFIC WORKFORCE REPRESENTATIVE Work Phone: [facility] 05-25-2024 10:47-0500 Body mass index (BMI) [Ratio] 35.08 kg/m2 Sedrick Bridenthal PATIENT SERVICE REPRESENTATIVE - TRAFFIC WORKFORCE REPRESENTATIVE Work Phone: [facility] 05-25-2024 10:47-0500 Body temperature 97.7 [degF] Sedrick Bridenthal PATIENT SERVICE REPRESENTATIVE - TRAFFIC WORKFORCE REPRESENTATIVE Work Phone: [facility] 05-25-2024 10:47-0500 Body weight 91.26 kg Sedrick Bridenthal PATIENT SERVICE REPRESENTATIVE - TRAFFIC WORKFORCE REPRESENTATIVE Work Phone: [facility] 05-25-2024 10:47-0500 Diastolic blood pressure 73 mm[Hg] Sedrick Bridenthal PATIENT SERVICE REPRESENTATIVE - TRAFFIC WORKFORCE REPRESENTATIVE Work Phone: [facility] 05-25-2024 10:47-0500 Heart rate 109 /min Sedrick Bridenthal PATIENT SERVICE REPRESENTATIVE - TRAFFIC WORKFORCE REPRESENTATIVE Work Phone: [facility] 05-25-2024 10:47-0500 Respiratory rate 20 /min Sedrick Bridenthal PATIENT SERVICE REPRESENTATIVE - TRAFFIC WORKFORCE REPRESENTATIVE Work Phone: [facility] 05-25-2024 10:47-0500 SaO2% (BldA) [Mass fraction] 96 % Sedrick Bridenthal PATIENT SERVICE REPRESENTATIVE - TRAFFIC WORKFORCE REPRESENTATIVE Work Phone: [facility] 05-25-2024 10:47-0500 Systolic blood pressure 119 mm[Hg] Sedrick Bridenthal PATIENT SERVICE REPRESENTATIVE - TRAFFIC WORKFORCE REPRESENTATIVE Work Phone: [facility] 05-04-2024 09:49-0500 Diastolic blood pressure 79 mm[Hg] Moshe Key MD Work Phone: [facility] 05-04-2024 09:49-0500 Heart rate 78 /min Moshe Key MD Work Phone: [facility] 05-04-2024 09:49-0500 Systolic blood pressure 134 mm[Hg] Moshe Key MD Work Phone: [facility] 05-04-2024 09:13-0500 Body height 161.3 cm Moshe Key MD Work Phone: [facility] 05-04-2024 09:13-0500 Body mass index (BMI) [Ratio] 35.61 kg/m2 Moshe Key MD Work Phone: [facility] 05-04-2024 09:13-0500 Body weight 92.63 kg Moshe Key MD Work Phone: [facility] 05-04-2024 09:13-0500 SaO2% (BldA) [Mass fraction] 96 % Moshe Key MD Work Phone: [facility] 03-09-2024 11:10-0400 Heart rate 76 /min Sedrick Bridenthal PATIENT SERVICE REPRESENTATIVE - TRAFFIC WORKFORCE REPRESENTATIVE Work Phone: [facility] Comment on above: apical 03-09-2024 10:57-0400 Body height 161.3 cm Sedrick Bridenthal PATIENT SERVICE REPRESENTATIVE - TRAFFIC WORKFORCE REPRESENTATIVE Work Phone: [facility] 03-09-2024 10:57-0400 Body mass index (BMI) [Ratio] 35.33 kg/m2 Sedrick Bridenthal PATIENT SERVICE REPRESENTATIVE - TRAFFIC WORKFORCE REPRESENTATIVE Work Phone: [facility] 03-09-2024 10:57-0400 Body temperature 98.01 [degF] Sedrick Bridenthal PATIENT SERVICE REPRESENTATIVE - TRAFFIC WORKFORCE REPRESENTATIVE Work Phone: [facility] 03-09-2024 10:57-0400 Body weight 91.9 kg Sedrick Bridenthal PATIENT SERVICE REPRESENTATIVE - TRAFFIC WORKFORCE REPRESENTATIVE Work Phone: [facility] 03-09-2024 10:57-0400 Diastolic blood pressure 76 mm[Hg] Sedrick Bridenthal PATIENT SERVICE REPRESENTATIVE - TRAFFIC WORKFORCE REPRESENTATIVE Work Phone: [facility] 03-09-2024 10:57-0400 Respiratory rate 18 /min Sedrick Bridenthal PATIENT SERVICE REPRESENTATIVE - TRAFFIC WORKFORCE REPRESENTATIVE Work Phone: [facility] 03-09-2024 10:57-0400 SaO2% (BldA) [Mass fraction] 97 % Sedrick Bridenthal PATIENT SERVICE REPRESENTATIVE - TRAFFIC WORKFORCE REPRESENTATIVE Work Phone: [facility] 03-09-2024 10:57-0400 Systolic blood pressure 146 mm[Hg] Sedrick Bridenthal PATIENT SERVICE REPRESENTATIVE - TRAFFIC WORKFORCE REPRESENTATIVE Work Phone: [facility] 02-23-2024 11:17-0400 Body height 161.3 cm Sedrick Bridenthal PATIENT SERVICE REPRESENTATIVE - TRAFFIC WORKFORCE REPRESENTATIVE Work Phone: [facility] 02-23-2024 11:17-0400 Body mass index (BMI) [Ratio] 34 kg/m2 Sedrick Bridenthal PATIENT SERVICE REPRESENTATIVE - TRAFFIC WORKFORCE REPRESENTATIVE Work Phone: [facility] 02-23-2024 11:17-0400 Body weight 88.45 kg Sedrick Bridenthal PATIENT SERVICE REPRESENTATIVE - TRAFFIC WORKFORCE REPRESENTATIVE Work Phone: [facility] 02-12-2024 14:31-0400 Body height 160 cm Sedrick Bridenthal PATIENT SERVICE REPRESENTATIVE - TRAFFIC WORKFORCE REPRESENTATIVE Work Phone: [facility] 02-12-2024 14:31-0400 Body mass index (BMI) [Ratio] 35.78 kg/m2 Sedrick Bridenthal PATIENT SERVICE REPRESENTATIVE - TRAFFIC WORKFORCE REPRESENTATIVE Work Phone: [facility] 02-12-2024 14:31-0400 Body weight 91.63 kg Sedrick Bridenthal PATIENT SERVICE REPRESENTATIVE - TRAFFIC WORKFORCE REPRESENTATIVE Work Phone: [facility] 01-21-2024 11:19-0400 Diastolic blood pressure 80 mm[Hg] Sedrick Bridenthal PATIENT SERVICE REPRESENTATIVE - TRAFFIC WORKFORCE REPRESENTATIVE Work Phone: [facility] 01-21-2024 11:19-0400 Systolic blood pressure 146 mm[Hg] Sedrick Bridenthal PATIENT SERVICE REPRESENTATIVE - TRAFFIC WORKFORCE REPRESENTATIVE Work Phone: [facility] 01-21-2024 10:18-0400 Body mass index (BMI) [Ratio] 35.92 kg/m2 Sedrick Bridenthal PATIENT SERVICE REPRESENTATIVE - TRAFFIC WORKFORCE REPRESENTATIVE Work Phone: [facility] 01-21-2024 10:18-0400 Body temperature 98.29 [degF] Sedrick Bridenthal PATIENT SERVICE REPRESENTATIVE - TRAFFIC WORKFORCE REPRESENTATIVE Work Phone: [facility] 01-21-2024 10:18-0400 Body weight 91.99 kg Sedrick Bridenthal PATIENT SERVICE REPRESENTATIVE - TRAFFIC WORKFORCE REPRESENTATIVE Work Phone: [facility] 01-21-2024 10:18-0400 Heart rate 101 /min Sedirck Bridenthal PATIENT SERVICE REPRESENTATIVE - TRAFFIC WORKFORCE REPRESENTATIVE Work Phone: [facility] 01-21-2024 10:18-0400 Respiratory rate 20 /min Sedrick Bridenthal PATIENT SERVICE REPRESENTATIVE - TRAFFIC WORKFORCE REPRESENTATIVE Work Phone: [facility] 01-21-2024 10:18-0400 SaO2% (BldA) [Mass fraction] 97 % Sedrick Bridenthal PATIENT SERVICE REPRESENTATIVE - TRAFFIC WORKFORCE REPRESENTATIVE Work Phone: [facility] 12-01-2023 09:29-0400 Diastolic blood pressure 80 mm[Hg] Sedrick Bridenthal PATIENT SERVICE REPRESENTATIVE - TRAFFIC WORKFORCE REPRESENTATIVE Work Phone: [facility] 12-01-2023 09:29-0400 Heart rate 64 /min Sedrick Bridenthal PATIENT SERVICE REPRESENTATIVE - TRAFFIC WORKFORCE REPRESENTATIVE Work Phone: [facility] 12-01-2023 09:29-0400 Systolic blood pressure 133 mm[Hg] Sedrick Bridenthal PATIENT SERVICE REPRESENTATIVE - TRAFFIC WORKFORCE REPRESENTATIVE Work Phone: [facility] 12-01-2023 09:03-0400 Body height 160 cm Sedrick Bridenthal PATIENT SERVICE REPRESENTATIVE - TRAFFIC WORKFORCE REPRESENTATIVE Work Phone: [facility] 12-01-2023 09:03-0400 Body mass index (BMI) [Ratio] 35.39 kg/m2 Sedrick Bridenthal PATIENT SERVICE REPRESENTATIVE - TRAFFIC WORKFORCE REPRESENTATIVE Work Phone: [facility] 12-01-2023 09:03-0400 Body weight 90.63 kg Sedrick Bridenthal PATIENT SERVICE REPRESENTATIVE - TRAFFIC WORKFORCE REPRESENTATIVE Work Phone: [facility] 12-01-2023 09:03-0400 SaO2% (BldA) [Mass fraction] 96 % Sedrick Karrieenthal PATIENT SERVICE REPRESENTATIVE - TRAFFIC WORKFORCE REPRESENTATIVE Work Phone: [facility] 11-25-2023 13:02-0400 Body height 160 cm Nadya Biro PA-C Work Phone: [facility] 11-25-2023 13:02-0400 Body mass index (BMI) [Ratio] 35.78 kg/m2 Nadya Biro PA-C Work Phone: [facility] 11-25-2023 13:02-0400 Body weight 91.63 kg Nadya Biro PA-C Work Phone: [facility] 11-25-2023 13:02-0400 Diastolic blood pressure 66 mm[Hg] Nadya Biro PA-C Work Phone: [facility] 11-25-2023 13:02-0400 Systolic blood pressure 128 mm[Hg] Nadya Biro PA-C Work Phone: [facility] 10-22-2023 10:16-0400 Body mass index (BMI) [Ratio] 35.89 kg/m2 Sedrick Bridenthal PATIENT SERVICE REPRESENTATIVE - TRAFFIC WORKFORCE REPRESENTATIVE Work Phone: [facility] 10-22-2023 10:16-0400 Body temperature 98.4 [degF] Sedrick Bridenthal PATIENT SERVICE REPRESENTATIVE - TRAFFIC WORKFORCE REPRESENTATIVE Work Phone: [facility] 10-22-2023 10:16-0400 Body weight 91.9 kg Sedrick Bridenthal PATIENT SERVICE REPRESENTATIVE - TRAFFIC WORKFORCE REPRESENTATIVE Work Phone: [facility] 10-22-2023 10:16-0400 Diastolic blood pressure 59 mm[Hg] Sedrick Bridenthal PATIENT SERVICE REPRESENTATIVE - TRAFFIC WORKFORCE REPRESENTATIVE Work Phone: [facility] 10-22-2023 10:16-0400 Heart rate 65 /min Sedrick Bridenthal PATIENT SERVICE REPRESENTATIVE - TRAFFIC WORKFORCE REPRESENTATIVE Work Phone: [facility] 10-22-2023 10:16-0400 Respiratory rate 18 /min Sedrick Bridenthal PATIENT SERVICE REPRESENTATIVE - TRAFFIC WORKFORCE REPRESENTATIVE Work Phone: [facility] 10-22-2023 10:16-0400 SaO2% (BldA) [Mass fraction] 96 % Sedrick Bridenthal PATIENT SERVICE REPRESENTATIVE - TRAFFIC WORKFORCE REPRESENTATIVE Work Phone: [facility] 10-22-2023 10:16-0400 Systolic blood pressure 139 mm[Hg] Sedrick Bridenthal PATIENT SERVICE REPRESENTATIVE - TRAFFIC WORKFORCE REPRESENTATIVE Work Phone: [facility] 10-14-2023 12:57-0400 Body height 160 cm Nadya Biro PA-C Work Phone: [facility] 10-14-2023 12:57-0400 Body mass index (BMI) [Ratio] 35.43 kg/m2 Nadya Biro PA-C Work Phone: [facility] 10-14-2023 12:57-0400 Body weight 90.72 kg Nadya Biro PA-C Work Phone: [facility] 10-14-2023 12:57-0400 Diastolic blood pressure 78 mm[Hg] Nadya Biro PA-C Work Phone: [facility] 10-14-2023 12:57-0400 Systolic blood pressure 122 mm[Hg] Nadya Biro PA-C Work Phone: [facility] 09-16-2023 12:49-0400 Body height 160 cm Nadya Biro PA-C Work Phone: [facility] 09-16-2023 12:49-0400 Body mass index (BMI) [Ratio] 35.43 kg/m2 Nadya Biro PA-C Work Phone: [facility] 09-16-2023 12:49-0400 Body weight 90.72 kg Nadya Biro PA-C Work Phone: [facility] 09-16-2023 12:49-0400 Diastolic blood pressure 74 mm[Hg] Nadya Biro PA-C Work Phone: [facility] 09-16-2023 12:49-0400 Systolic blood pressure 126 mm[Hg] Nadya Biro PA-C Work Phone: [facility] 09-04-2023 10:18-0400 Body height 160 cm Sedrick Bridenthal PATIENT SERVICE REPRESENTATIVE - TRAFFIC WORKFORCE REPRESENTATIVE Work Phone: [facility] 09-04-2023 10:18-0400 Body mass index (BMI) [Ratio] 36.67 kg/m2 Sedrick Bridenthal PATIENT SERVICE REPRESENTATIVE - TRAFFIC WORKFORCE REPRESENTATIVE Work Phone: [facility] 09-04-2023 10:18-0400 Body weight 93.89 kg Sedrick Bridenthal PATIENT SERVICE REPRESENTATIVE - TRAFFIC WORKFORCE REPRESENTATIVE Work Phone: [facility] 09-04-2023 10:18-0400 Diastolic blood pressure 74 mm[Hg] Sedrick Bridenthal PATIENT SERVICE REPRESENTATIVE - TRAFFIC WORKFORCE REPRESENTATIVE Work Phone: [facility] 09-04-2023 10:18-0400 Heart rate 82 /min Sedrick Bridenthal PATIENT SERVICE REPRESENTATIVE - TRAFFIC WORKFORCE REPRESENTATIVE Work Phone: [facility] 09-04-2023 10:18-0400 SaO2% (BldA) [Mass fraction] 94 % Sedrick Millerhenry PATIENT SERVICE REPRESENTATIVE - TRAFFIC WORKFORCE REPRESENTATIVE Work Phone: [facility] 09-04-2023 10:18-0400 Systolic blood pressure 123 mm[Hg] Sedrick Yoonenthal PATIENT SERVICE REPRESENTATIVE - TRAFFIC WORKFORCE REPRESENTATIVE Work Phone: [facility] 09-03-2023 10:55-0400 Heart rate 74 /min Austin Leos MD Work Phone: [facility] 09-03-2023 10:55-0400 SaO2% (BldA) [Mass fraction] 98 % Austin Leos MD Work Phone: [facility] 09-03-2023 10:45-0400 Diastolic blood pressure 56 mm[Hg] Austin Leos MD Work Phone: [facility] 09-03-2023 10:45-0400 Systolic blood pressure 101 mm[Hg] Austin Leos MD Work Phone: [facility] 09-03-2023 10:35-0400 Respiratory rate 16 /min Austin Leos MD Work Phone: [facility] 09-03-2023 07:56-0400 Body height 160 cm Austin Leos MD Work Phone: [facility] 09-03-2023 07:56-0400 Body mass index (BMI) [Ratio] 35.43 kg/m2 Austin Leos MD Work Phone: [facility] 09-03-2023 07:56-0400 Body temperature 97.81 [degF] Austin Leos MD Work Phone: [facility] 09-03-2023 07:56-0400 Body weight 90.72 kg Austin Leos MD Work Phone: [facility] 08-05-2023 13:04-0400 Body height 161.3 cm Austin Leos MD Work Phone: [facility] 08-05-2023 13:04-0400 Body mass index (BMI) [Ratio] 33.83 kg/m2 Austin Leos MD Work Phone: [facility] 08-05-2023 13:04-0400 Body weight 88 kg Austin Leos MD Work Phone: [facility] 08-05-2023 13:04-0400 Diastolic blood pressure 68 mm[Hg] Austin Leos MD Work Phone: [facility] 08-05-2023 13:04-0400 Systolic blood pressure 104 mm[Hg] Austin Leos MD Work Phone: [facility] 07-24-2023 10:02-0500 Body mass index (BMI) [Ratio] 34.39 kg/m2 Sedrick Bridenthal PATIENT SERVICE REPRESENTATIVE - TRAFFIC WORKFORCE REPRESENTATIVE Work Phone: [facility] 07-24-2023 10:02-0500 Body temperature 98.2 [degF] Sedrick Bridenthal PATIENT SERVICE REPRESENTATIVE - TRAFFIC WORKFORCE REPRESENTATIVE Work Phone: [facility] 07-24-2023 10:02-0500 Body weight 90.27 kg Sedrick Bridenthal PATIENT SERVICE REPRESENTATIVE - TRAFFIC WORKFORCE REPRESENTATIVE Work Phone: [facility] 07-24-2023 10:02-0500 Diastolic blood pressure 60 mm[Hg] Sedrick Bridenthal PATIENT SERVICE REPRESENTATIVE - TRAFFIC WORKFORCE REPRESENTATIVE Work Phone: [facility] 07-24-2023 10:02-0500 Heart rate 50 /min Sedrick Bridenthal PATIENT SERVICE REPRESENTATIVE - TRAFFIC WORKFORCE REPRESENTATIVE Work Phone: [facility] 07-24-2023 10:02-0500 Respiratory rate 24 /min Sedrick Bridenthal PATIENT SERVICE REPRESENTATIVE - TRAFFIC WORKFORCE REPRESENTATIVE Work Phone: [facility] 07-24-2023 10:02-0500 SaO2% (BldA) [Mass fraction] 99 % Sedrick Bridenthal PATIENT SERVICE REPRESENTATIVE - TRAFFIC WORKFORCE REPRESENTATIVE Work Phone: [facility] 07-24-2023 10:02-0500 Systolic blood pressure 96 mm[Hg] Sedrick Bridenthal PATIENT SERVICE REPRESENTATIVE - TRAFFIC WORKFORCE REPRESENTATIVE Work Phone: [facility] 07-01-2023 20:00-0500 Diastolic blood pressure 74 mm[Hg] PA Gerry Gray PA Work Phone: [facility] 07-01-2023 20:00-0500 Heart rate 72 /min PA Gerry Gray PA Work Phone: [facility] 07-01-2023 20:00-0500 Respiratory rate 16 /min PA Gerry Gray PA Work Phone: [facility] 07-01-2023 20:00-0500 SaO2% (BldA) [Mass fraction] 98 % PA Gerry Gray PA Work Phone: [facility] 07-01-2023 20:00-0500 Systolic blood pressure 116 mm[Hg] PA Gerry Gray PA Work Phone: [facility] 07-01-2023 17:47-0500 Body height 160.02 cm PA Gerry Gray PA Work Phone: [facility] 07-01-2023 17:47-0500 Body mass index (BMI) [Ratio] 26.3 kg/m2 PA Gerry Gray PA Work Phone: [facility] 07-01-2023 17:47-0500 Body temperature 96.7 [degF] PA Gerry Gray PA Work Phone: [facility] 07-01-2023 17:47-0500 Body weight 67.44 kg PA Gerry Gray PA Work Phone: [facility] 07-01-2023 17:03-0500 Body mass index (BMI) [Ratio] 34.3 kg/m2 PA Gerry Gray PA Work Phone: [facility] 07-01-2023 17:03-0500 Body temperature 98.2 [degF] PA Gerry Gray PA Work Phone: [facility] 07-01-2023 17:03-0500 Body weight 87.99 kg PA Gerry Gray PA Work Phone: [facility] 07-01-2023 17:03-0500 Diastolic blood pressure 82 mm[Hg] KIZZY Gray PA Work Phone: [facility] 07-01-2023 17:03-0500 Heart rate 98 /min PA Gerry Gray PA Work Phone: [facility] 07-01-2023 17:03-0500 Respiratory rate 14 /min PA Gerry Gray PA Work Phone: [facility] 07-01-2023 17:03-0500 SaO2% (BldA) [Mass fraction] 93 % PA Gerry Gray PA Work Phone: [facility] 07-01-2023 17:03-0500 Systolic blood pressure 142 mm[Hg] PA Gerry Gray PA Work Phone: [facility] 06-04-2023 13:40-0500 Diastolic blood pressure 78 mm[Hg] Sedrick Bridenthal PATIENT SERVICE REPRESENTATIVE - TRAFFIC WORKFORCE REPRESENTATIVE Work Phone: [facility] 06-04-2023 13:40-0500 Systolic blood pressure 131 mm[Hg] Sedrick Bridenthal PATIENT SERVICE REPRESENTATIVE - TRAFFIC WORKFORCE REPRESENTATIVE Work Phone: [facility] 06-04-2023 13:11-0500 Body mass index (BMI) [Ratio] 35.26 kg/m2 Sedrick Bridenthal PATIENT SERVICE REPRESENTATIVE - TRAFFIC WORKFORCE REPRESENTATIVE Work Phone: [facility] 06-04-2023 13:11-0500 Body temperature 98.4 [degF] Sedrick Bridenthal PATIENT SERVICE REPRESENTATIVE - TRAFFIC WORKFORCE REPRESENTATIVE Work Phone: [facility] 06-04-2023 13:11-0500 Body weight 92.53 kg Sedrick Bridenthal PATIENT SERVICE REPRESENTATIVE - TRAFFIC WORKFORCE REPRESENTATIVE Work Phone: [facility] 06-04-2023 13:11-0500 Heart rate 78 /min Sedrick Bridenthal PATIENT SERVICE REPRESENTATIVE - TRAFFIC WORKFORCE REPRESENTATIVE Work Phone: [facility] 06-04-2023 13:11-0500 Respiratory rate 24 /min Sedrick Bridenthal PATIENT SERVICE REPRESENTATIVE - TRAFFIC WORKFORCE REPRESENTATIVE Work Phone: [facility] 06-04-2023 13:11-0500 SaO2% (BldA) [Mass fraction] 98 % Sedrick Bridenthal PATIENT SERVICE REPRESENTATIVE - TRAFFIC WORKFORCE REPRESENTATIVE Work Phone: [facility] 04-23-2023 10:06-0500 Body height 162 cm Sedrick Bridenthal PATIENT SERVICE REPRESENTATIVE - TRAFFIC WORKFORCE REPRESENTATIVE Work Phone: [facility] 04-23-2023 10:06-0500 Body mass index (BMI) [Ratio] 34.74 kg/m2 Sedrick Bridenthal PATIENT SERVICE REPRESENTATIVE - TRAFFIC WORKFORCE REPRESENTATIVE Work Phone: [facility] 04-23-2023 10:06-0500 Body temperature 97.81 [degF] Sedrick Bridenthal PATIENT SERVICE REPRESENTATIVE - TRAFFIC WORKFORCE REPRESENTATIVE Work Phone: [facility] 04-23-2023 10:06-0500 Body weight 91.17 kg Sedrick Bridenthal PATIENT SERVICE REPRESENTATIVE - TRAFFIC WORKFORCE REPRESENTATIVE Work Phone: [facility] 04-23-2023 10:06-0500 Diastolic blood pressure 87 mm[Hg] Sedrick Bridenthal PATIENT SERVICE REPRESENTATIVE - TRAFFIC WORKFORCE REPRESENTATIVE Work Phone: [facility] 04-23-2023 10:06-0500 Heart rate 89 /min Sedrick Bridenthal PATIENT SERVICE REPRESENTATIVE - TRAFFIC WORKFORCE REPRESENTATIVE Work Phone: [facility] 04-23-2023 10:06-0500 Respiratory rate 20 /min Sedrick Bridenthal PATIENT SERVICE REPRESENTATIVE - TRAFFIC WORKFORCE REPRESENTATIVE Work Phone: [facility] 04-23-2023 10:06-0500 SaO2% (BldA) [Mass fraction] 93 % Sedrick Bridenthal PATIENT SERVICE REPRESENTATIVE - TRAFFIC WORKFORCE REPRESENTATIVE Work Phone: [facility] 04-23-2023 10:06-0500 Systolic blood pressure 153 mm[Hg] Sedrick Bridenthal PATIENT SERVICE REPRESENTATIVE - TRAFFIC WORKFORCE REPRESENTATIVE Work Phone: [facility] 04-02-2023 12:45-0500 Diastolic blood pressure 78 mm[Hg] Sedrick Bridenthal PATIENT SERVICE REPRESENTATIVE - TRAFFIC WORKFORCE REPRESENTATIVE Work Phone: [facility] 04-02-2023 12:45-0500 Systolic blood pressure 132 mm[Hg] Sedrick Bridenthal PATIENT SERVICE REPRESENTATIVE - TRAFFIC WORKFORCE REPRESENTATIVE Work Phone: [facility] 04-02-2023 11:07-0500 Body temperature 98.01 [degF] Sedrick Bridenthal PATIENT SERVICE REPRESENTATIVE - TRAFFIC WORKFORCE REPRESENTATIVE Work Phone: [facility] 04-02-2023 11:07-0500 Body weight 92.08 kg Sedrick Bridenthal PATIENT SERVICE REPRESENTATIVE - TRAFFIC WORKFORCE REPRESENTATIVE Work Phone: [facility] 04-02-2023 11:07-0500 Heart rate 78 /min Sedrick Bridenthal PATIENT SERVICE REPRESENTATIVE - TRAFFIC WORKFORCE REPRESENTATIVE Work Phone: [facility] 04-02-2023 11:07-0500 Respiratory rate 24 /min Sedrick Bridenthal PATIENT SERVICE REPRESENTATIVE - TRAFFIC WORKFORCE REPRESENTATIVE Work Phone: [facility] 04-02-2023 11:07-0500 SaO2% (BldA) [Mass fraction] 98 % Esdrick Bridenthal PATIENT SERVICE REPRESENTATIVE - TRAFFIC WORKFORCE REPRESENTATIVE Work Phone: [facility] Encounters Encounter Date Encounter Type Care Provider Facility Start: 04-25-2025 ambulatory [facility] Facility :[facility] Start: 04-19-2025 ambulatory Connie Martinez ty:[facility] Start: 04-07-2025 ambulatory Rula Dsouza NP Facility :[facility] Start: 04-05-2025 ambulatory Cheo Mckenzie Facility:[facility] Start: 04-05-2025 ambulatory Moshe Key Facility :[facility] Start: 03-31-2025 End: 04-05-2025 Telephone encounter Sedrick Bridenthal PATIENT SERVICE REPRESENTATIVE - TRAFFIC WORKFORCE REPRESENTATIVE Work Phone: [facility] Comment on above: Medication Problem ( empagliflozin (Jardiance) 10 MG /) Start: 03-30-2025 End: 03-30-2025 Office outpatient visit 25 minutes Sedrick Bridenthal PATIENT SERVICE REPRESENTATIVE - TRAFFIC WORKFORCE REPRESENTATIVE Work Phone: [facility] Comment on above: Type 2 diabetes willard itus without complication, without long- term current use of insulin (HCC) (Primary Dx); Hypersomnia; Pure hypercholesterolemia; Primary hypertension; Snoring; Presence of coronary angioplasty implant and graft Start: 03-30-2025 End: 03[facility]30[facility] Start: 03-16-2025 End: 03-25-2025 ambulatory Moshe Key Facility:[facility] Start: 03-14-2025 End: 03-14-2025 Patient encounter procedure Rula WALKER -[facility] Work Phone: Start: 03-14-2025 End: 03-14-[address] Moshe Key MD Work Phone: -[facility] Start: 02-25-2025 End: 02-25-2025 Follow-up encounter 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 APRN - TRAFFIC WORKFORCE REPRESENTATIVE Work Phone: [facility] Comment on above: Bilateral screening mammogram with tomosynthesis Start: 02-24-2025 End: 02-24-2025 Subsequent hospital visit by physician 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 APRN - TRAFFIC WORKFORCE REPRESENTATIVE Work Phone: [facility] Comment on above: Encounter for screen ing mammogram for malignant neoplasm of breast Start: 02-24-2025 End: 02-24-2025 ambulatory [facility] Start: 02-23-[address] Cheo Mckenzie MD -Cardiac Rehab Work Phone: Start: 02-22-2025 End: 02-22-2025 Patient encounter procedure Tabby WALKER -[facility] Work Phone: Start: 02-22-2025 End: 02-22-[address] Moshe Key MD Work Phone: -[facility] Start: 02-21-2025 End: 02-22-[address] Moshe Key MD Work Phone: -Cardiac Rehab Start: 02-21-2025 End: 02-22-[address] Cheo Mckenzie MD -Cardiac Rehab Work Phone: Start: 02-15-2025 End: 02-16-2025 Telephone encounter Jessica Smith PATIENT SERVICE REPRESENTATIVE - TRAFFIC WORKFORCE REPRESENTATIVE Work Phone: [facility] Comment on above: Other (Pt wants woos ter location - [facility]) Start: 02-14-2025 End: 02-14-2025 Telephone encounter Jessica Smith PATIENT SERVICE REPRESENTATIVE - TRAFFIC WORKFORCE REPRESENTATIVE Work Phone: [facility] Start: 02-04-2025 End: 02-04-2025 Telephone encounter Jessica Smith PATIENT SERVICE REPRESENTATIVE - TRAFFIC WORKFORCE REPRESENTATIVE Work Phone: [facility] Comment on above: Other (New Dose of C arvedilol and Risk for Sleep Apnea) Other (Medication Co ncern of dosage/ New Dose of Carvedilol and Risk for Sleep Apnea) Start: 01-28-2025 End: 03-30-2025 Follow-up encounter Moshe Key MD Work Phone: [facility] Comment on above: AST, ALT, Lipid pane l Start: 01-27-2025 End: 01-27-2025 ambulatory MOSHE KEY [facility] Start: 01-26-2025 End: 02-22-[address] Cheo Mckenzie MD -Nutritional Servic es Work Phone: Start: 01-26-2025 End: 02-22-2025 Refill Sedrickray Milleral PATIENT SERVICE REPRESENTATIVE - TRAFFIC WORKFORCE REPRESENTATIVE Work Phone: [facility] Comment on above: Pure hypercholestero lemia Start: 01-21-2025 End: 01-23-[address] Moshe Key MD Work Phone: -Cardiac Rehab Start: 01-21-2025 End: 01-23-[address] Cheo Mckenzie MD -Cardiac Rehab Work Phone: Start: 01-21-[address] Cheo Mckenzie MD -Cardiac Rehab Work Phone: Start: 01-05-2025 End: 01-23-[address] Cheo Mckenzie MD -Nutritional Servic es Work Phone: Start: 01-05-2025 End: 01-23-[address] Moshe Key MD Work Phone: -Nutritional Services Start: 01-04-2025 End: 01-04-2025 Refill Moshe Key MD Work Phone: [facility] Comment on above: Pure hypercholestero lemia Start: 12-30-2024 End: 12-31-2024 Refill Jessica Smith APRN - TRAFFIC WORKFORCE REPRESENTATIVE Work Phone: [facility] Comment on above: Post-nasal drainage Start: 12-28-2024 End: 12-28-2024 Office outpatient visit 25 minutes Moshe Key MD Work Phone: [facility] Comment on above: Non-ST elevation alethea cardial infarction (NSTEMI) (HCC) (Primary Dx); Pure hypercholesterolemia; Primary hypertension; Type 2 diabetes mellitus without complication, without long-term current use of insulin (HCC); Bradycardia Start: 12-28-2024 End: 12-28-2024 ambulatory MOSHE KEY [facility] Start: 12-22-2024 End: 12-23-[address] Moshe Key MD Work Phone: -Cardiac Rehab Start: 12-22-2024 End: 12-23-[address] Cheo Mckenzie MD -Cardiac Rehab Work Phone: Start: 12-20-2024 End: 12-20-2024 Telephone encounter Moshe Key MD Work Phone: [facility] Start: 12-13-2024 End: 12-13-2024 Patient encounter procedure Rula Dsouza TEXTBOOK ASSOCIATE-C -[facility] Work Phone: Start: 12-13-2024 End: 12-13-[address] Moshe Key MD Work Phone: -[facility] Start: 12-10-2024 End: 12-10-[address] Moshe Key MD Work Phone: -Cardiac Rehab Start: 12-10-2024 End: 12-10-[address] Cheo Mckenzie MD -Cardiac Patric ab Work Phone: Start: 12-10-2024 End: 12-10-2024 ambulatory Moshe Key Facility:[facility] Start: 12-07-[address] Moshe ulrich MD Work Phone: -[facility] Start: 12-07-2024 Non-patient / Non-visit Dr. Roxanne Womack MD [facility] Start: 12-06-2024 Non-patient / Non-visit Dr. Roxanne Womack MD [facility] Start: 12-05-2024 ambulatory [facility] Facility :[facility] Start: 12-05-2024 End: 12-07-2024 Non-patient / Non-visit Dr. Cheo Mckenzie MD -[facility] Start: 12-05-2024 End: 12-07-2024 ambulatory Pennie Joe Facility:[facility] Start: 12-05-2024 End: 12-07-2024 Evaluation and management of inpatient Dr. 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 Arnold Morton MD -[facility] Work Phone: Start: 09-23-2024 End: 09-23-2024 ambulatory Arnold Morton Facility:[facility] Start: 09-22-2024 End: 09-22-2024 Refill Moshe Key MD Work Phone: [facility] Comment on above: Hypothyroidism, unsp ecified type Start: 09-02-2024 End: 09-02-2024 Refill Jessica Smith PATIENT SERVICE REPRESENTATIVE - TRAFFIC WORKFORCE REPRESENTATIVE Work Phone: [facility] Comment on above: Pure hypercholestero lemia Start: 08-30-2024 End: 08-30-[address] Moshe Key MD Work Phone: [facility] Work Phone: Start: 08-30-2024 End: 08-30-[address] Arnold Morton MD -[facility] Work Phone: Start: 08-30-2024 End: 08-30-2024 ambulatory Arnold Morton Facility:[facility] Start: 08-05-2024 End: 08-05-2024 ambulatory [facility] Start: 08-04-2024 End: 08-05-2024 Refill Jessica Smith PATIENT SERVICE REPRESENTATIVE - TRAFFIC WORKFORCE REPRESENTATIVE Work Phone: [facility] Comment on above: Pure hypercholestero lemia Start: 07-30-2024 End: 07-30-[address] Arnold Morton MD -[facility] Work Phone: Start: 07-30-2024 End: 07-30-2024 ambulatory Arnold Morton Facility:[facility] Start: 07-28-2024 End: 07-28-2024 Patient encounter procedure Tabby Do TEXTBOOK ASSOCIATE-C -[facility] Work Phone: Start: 07-28-2024 End: 07-28-2024 ambulatory Moshe Key Facility:[facility] Start: 07-19-2024 End: 07-19-2024 Refill Sedrick Bridenthal PATIENT SERVICE REPRESENTATIVE - TRAFFIC WORKFORCE REPRESENTATIVE Work Phone: [facility] Comment on above: Post-nasal drainage; Primary hypertension Start: 07-07-2024 End: 07-07-2024 Patient encounter procedure Tabby Do TEXTBOOK ASSOCIATE-C -[facility] Work Phone: Start: 07-07-2024 End: 07-07-2024 ambulatory Tabby Do Facility:[facility] Start: 07-05-2024 End: 07-05-2024 Telephone encounter Moshe Key MD Work Phone: [facility] Start: 07-05-2024 End: [facility] Start: 07-02-2024 End: 07-02-2024 Patient encounter procedure Enriqueta DURAND -[facility] Work Phone: Start: 07-02-2024 End: 07-02-2024 ambulatory Moshe Key Facility:[facility] Start: 06-28-2024 End: 06-28-2024 Office outpatient visit 15 minutes Sedrick Bridenthal PATIENT SERVICE REPRESENTATIVE - TRAFFIC WORKFORCE REPRESENTATIVE Work Phone: [facility] Comment on above: Osteoarthritis of ri ght knee, unspecified osteoarthritis type (Primary Dx); Pure hypercholesterolemia Start: 06-28-2024 End: 06-28-2024 Office outpatient visit 25 minutes Sedrick Bridenthal PATIENT SERVICE REPRESENTATIVE - TRAFFIC WORKFORCE REPRESENTATIVE Work Phone: [facility] Comment on above: Osteoarthritis of ri ght knee, unspecified osteoarthritis type (Primary Dx); Pure hypercholesterolemia Start: 06-28-2024 End: 06-28-2024 ambulatory SEDRICK BRIDENTHAL [facility] Start: 06-10-2024 End: 06-10-2024 Refill Moshe Key MD Work Phone: [facility] Comment on above: Gastroesophageal ref lux disease without esophagitis; Vitamin D deficiency Start: 06-03-2024 End: 06-03-2024 ambulatory MOSHE KEY [facility] Start: 06-02-2024 End: 06-02-2024 Refill Sedrick Bridenthal PATIENT SERVICE REPRESENTATIVE - TRAFFIC WORKFORCE REPRESENTATIVE [facility] Start: 05-31-2024 End: 05-31-2024 ambulatory Arnold Morton Facility:[facility] Start: 05-31-2024 End: 05-31-[address] Arnold Morton MD -Physical Therapy Work Phone: Start: 05-25-2024 End: 06-16-2024 Telephone encounter Sedrick Bridenthal PATIENT SERVICE REPRESENTATIVE - TRAFFIC WORKFORCE REPRESENTATIVE Work Phone: [facility] Comment on above: Results Start: 05-25-2024 End: 05-25-2024 ambulatory SEDRICK BRIDENTHAL PATIENT SERVICE REPRESENTATIVE/TRAFFIC WORKFORCE REPRESENTATIVE Facility:[facility] Start: 05-25-2024 End: 05-25-2024 Patient encounter procedure SEDRICK BRIDENTHAL PATIENT SERVICE REPRESENTATIVE/TRAFFIC WORKFORCE REPRESENTATIVE [facility] Start: 05-25-2024 End: 05-25-2024 Office outpatient visit 15 minutes Sedrick Bridenthal PATIENT SERVICE REPRESENTATIVE - TRAFFIC WORKFORCE REPRESENTATIVE Work Phone: [facility] Comment on above: Acute pain of right knee (Primary Dx) Start: 05-25-2024 End: 05-25-2024 ambulatory SEDRICK BRIDENTHAL [facility] Start: 05-24-2024 End: 05-24-2024 ambulatory Gerri Hazel RN [facility] Clinical Communication Start: 05-24-2024 End: 05-24-2024 Patient encounter procedure Gerri Hazel RN [facility] Clinical Communication Start: 05-13-2024 End: 05-13-2024 Patient encounter procedure Enriqueta DURAND -[facility] Work Phone: Start: 05-13-2024 End: 05-13-2024 ambulatory Enriqueta Houston Facility:[facility] Start: 05-04-2024 End: 05-04-2024 Patient encounter procedure Moshe Key MD Work Phone: [facility] Comment on above: Medicare annual well ness visit, subsequent (Primary Dx); Primary hypertension; Gastroesophageal reflux disease without esophagitis; Hereditary hemochromatosis (HCC); Acquired hypothyroidism; Type 2 diabetes mellitus without complication, without long-term current use of insulin (CMS/HCC) (HCC); Pure hypercholesterolemia; Immunization due Start: 05-04-2024 End: 05-04-2024 ambulatory [facility] Start: 05-04-2024 End: 05-04-2024 Encounter for general adult medical examination without abnormal findings [facility] Start: 05-01-2024 End: 05-03-2024 Refill Sedrick Bridenthal PATIENT SERVICE REPRESENTATIVE - TRAFFIC WORKFORCE REPRESENTATIVE Work Phone: [facility] Comment on above: Primary hypertension Start: 04-15-2024 End: 04-15-2024 ambulatory Arnold Morton Facility:[facility] Start: 03-25-2024 End: 03-25-2024 Refill Moshe Key MD Work Phone: [facility] Start: 03-09-2024 End: 03-09-2024 Office outpatient visit 15 minutes Sedrick Bridenthal PATIENT SERVICE REPRESENTATIVE - TRAFFIC WORKFORCE REPRESENTATIVE Work Phone: [facility] Comment on above: Preoperative clearan ce (Primary Dx); Type 2 diabetes mellitus without complication, without long-term current use of insulin (CMS/HCC) (HCC); Primary hypertension Start: 03-09-2024 End: 03-09-2024 Office outpatient visit 25 minutes Sedrick Bridenthal PATIENT SERVICE REPRESENTATIVE - TRAFFIC WORKFORCE REPRESENTATIVE Work Phone: [facility] Comment on above: Preoperative clearan ce (Primary Dx); Type 2 diabetes mellitus without complication, without long-term current use of insulin (CMS/HCC) (HCC); Primary hypertension Start: 03-09-2024 End: 03-30-2025 Preoperative state 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 PATIENT SERVICE REPRESENTATIVE - TRAFFIC WORKFORCE REPRESENTATIVE [facility] Work Phone: Start: 02-23-2024 End: 02-23-2024 Subsequent hospital visit by physician 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 APRN - [employer] Work Phone: [facility] Comment on above: Encounter for screen ing mammogram for malignant neoplasm of breast Start: 02-13-2024 End: 02-13-2024 Telephone encounter 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 PATIENT SERVICE REPRESENTATIVE - [employer] Work Phone: [facility] Comment on above: Results Start: 02-12-2024 End: 02-12-2024 Subsequent hospital visit by physician 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 APRN - [employer] Work Phone: [facility] Comment on above: Murmur, cardiac Start: 02-09-2024 End: 02-09-2024 Subsequent hospital visit by physician 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 APRN - [employer] Work Phone: [facility] Comment on above: History of tobacco u se Start: 01-21-2024 End: 01-21-2024 Office outpatient visit 25 minutes 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 PATIENT SERVICE REPRESENTATIVE - [employer] Work Phone: [facility] Comment on above: Type 2 diabetes willard itus without complication, without long- term current use of insulin (CMS/HCC) (HCC) (Primary Dx); Hypothyroidism, unspecified type; Degenerative disc disease, lumbar; Iron deficiency anemia, unspecified iron deficiency anemia type; Primary hypertension; History of tobacco use; Encounter for screening mammogram for malignant neoplasm of breast; Murmur, cardiac; Bilateral foot pain Start: 01-15-2024 End: 01-16-2024 Telephone encounter 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 PATIENT SERVICE REPRESENTATIVE - [employer] Work Phone: [facility] Comment on above: Results Start: 12-26-2023 End: 12-29-2023 Refill Sedrick Milleral PATIENT SERVICE REPRESENTATIVE - TRAFFIC WORKFORCE REPRESENTATIVE Work Phone: [facility] Comment on above: Swelling of both low er extremities Start: 12-24-2023 End: 12-24-2023 Telephone encounter Sedrickray Milleral PATIENT SERVICE REPRESENTATIVE - TRAFFIC WORKFORCE REPRESENTATIVE Work Phone: [facility] Comment on above: Results Start: 12-17-2023 End: 12-17-2023 Subsequent hospital visit by physician 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 PATIENT SERVICE REPRESENTATIVE - TRAFFIC WORKFORCE REPRESENTATIVE Work Phone: [facility] Comment on above: Chronic left-sided l ow back pain without sciatica Start: 12-10-2023 End: 12-15-2023 Telephone encounter Sedrickric Hemphill PATIENT SERVICE REPRESENTATIVE - TRAFFIC WORKFORCE REPRESENTATIVE Work Phone: [facility] Start: 12-09-2023 End: 12-10-2023 Refill Moshe Key MD Work Phone: [facility] Start: 12-03-2023 End: 12-03-2023 Telephone encounter 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 PATIENT SERVICE REPRESENTATIVE - TRAFFIC WORKFORCE REPRESENTATIVE Work Phone: [facility] Comment on above: Results Start: 12-01-2023 End: 12-01-2023 Office outpatient visit 15 minutes Sedrick Milleral PATIENT SERVICE REPRESENTATIVE - TRAFFIC WORKFORCE REPRESENTATIVE Work Phone: [facility] Comment on above: Left buttock pain (P rimary Dx); Bilateral foot pain; Colon cancer screening Start: 11-25-2023 End: 11-25-2023 Postop follow up visit related to original px Nadya Harkins PA-C Work Phone: [facility] Comment on above: Mass of joint of rig ht wrist (Primary Dx); S/P excision of ganglion cyst Start: 10-22-2023 End: 12-10-2023 Telephone encounter Orthopedic Work Phone: [facility] Clinical Communication Comment on above: FYI Start: 10-22-2023 End: 10-22-2023 Office outpatient visit 25 minutes Sedrickray Yoonchristina PATIENT SERVICE REPRESENTATIVE - [employer] Work Phone: [facility] Comment on above: Type 2 diabetes willard itus without complication, without long- term current use of insulin (CMS/HCC) (HCC) (Primary Dx); Hereditary hemochromatosis (HCC); Swelling of both lower extremities; Bilateral foot pain; Primary hypertension Start: 10-14-2023 End: 10-14-2023 Postop follow up visit related to original px Nadya Biro PA-C Work Phone: [facility] Comment on above: Mass of joint of rig ht wrist; S/P excision of ganglion cyst Start: 09-16-2023 End: 09-16-2023 Postop follow up visit related to original px Nadya Biro PA-C Work Phone: [facility] Comment on above: S/P excision of gang lion cyst (Primary Dx); Mass of joint of right wrist Start: 09-04-2023 ambulatory Iris Morales RN [facility] Clinical Communication Start: 09-04-2023 Patient encounter procedure Iris campbell RN [facility] Communication Start: 09-04-2023 End: 09-04-2023 Office outpatient visit 10 minutes Sedrick Colin PATIENT SERVICE REPRESENTATIVE - TRAFFIC WORKFORCE REPRESENTATIVE Work Phone: [facility] Comment on above: Visit for wound chec k (Primary Dx) Start: 09-03-2023 End: 09-03-2023 Subsequent hospital visit by physician Austin Leos MD Work Phone: [facility] Comment on above: H/O excision of mass (Primary Dx); Ganglion, right wrist Start: 08-19-2023 Telephone encounter Moshe Evans MD Work Phone: [facility] Comment on above: appt with Dr. Alvin Beltran, DPM<9>on 2:45 Start: 08-08-2023 ambulatory Nadya Sewell Work Phone: [facility] Start: 08-05-2023 Telephone encounter Austin ruiz MD Work Phone: [facility] Comment on above: Surgery Scheduling ( Surgery Scheduling) Start: 08-05-2023 End: 08-05-2023 Office outpatient new 30 minutes Austin Leos MD Work Phone: [facility] Comment on above: Mass of joint of rig ht wrist Start: 07-24-2023 End: 07-24-2023 Office outpatient visit 25 minutes Sedrick Bridenthal PATIENT SERVICE REPRESENTATIVE - TRAFFIC WORKFORCE REPRESENTATIVE Work Phone: [facility] Comment on above: Hereditary hemochrom atosis (HCC) (Primary Dx); Primary hypertension; Type 2 diabetes mellitus without complication, without long-term current use of insulin (CMS/HCC) (HCC); Bilateral foot pain; Mass of joint of right wrist; Other specified hypothyroidism Start: 07-01-2023 End: 07-01-2023 Emergency department patient visit KIZZY DURAND Work Phone: [facility] Work Phone: Start: 07-01-2023 End: 07-01-2023 Patient encounter procedure KIZZY DURAND Work Phone: [facility] Work Phone: Start: 06-09-2023 Telephone encounter Moshe Evans MD Work Phone: [facility] Start: 06-05-2023 End: 06-06-2023 ambulatory SEDRICK BRIDENTHAL PATIENT SERVICE REPRESENTATIVE/TRAFFIC WORKFORCE REPRESENTATIVE Facility:[facility] Start: 06-05-2023 End: 06-05-2023 Patient encounter procedure SEDRICK BRIDENTHAL PATIENT SERVICE REPRESENTATIVE/TRAFFIC WORKFORCE REPRESENTATIVE [facility] Start: 06-04-2023 End: 06-04-2023 Office outpatient visit 15 minutes Sedrick Bridenthal PATIENT SERVICE REPRESENTATIVE - TRAFFIC WORKFORCE REPRESENTATIVE Work Phone: [facility] Comment on above: Mass of joint of rig ht wrist (Primary Dx) Start: 04-23-2023 End: 04-23-2023 Assay of hemosiderin, quant 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 PATIENT SERVICE REPRESENTATIVE - TRAFFIC WORKFORCE REPRESENTATIVE Work Phone: [facility] Work Phone: Start: 04-23-2023 End: 04-23-2023 Patient encounter procedure 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 PATIENT SERVICE REPRESENTATIVE - TRAFFIC WORKFORCE REPRESENTATIVE Work Phone: [facility] Comment on above: Routine general medi luly examination at health care facility (Primary Dx); Type 2 diabetes mellitus without complication, without long-term current use of insulin (CMS/HCC) (HCC); Primary hypertension; Hereditary hemochromatosis (HCC); Hypothyroidism, unspecified type; Immunization due Start: 04-02-2023 End: 04-02-2023 Office outpatient new 45 minutes 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 PATIENT SERVICE REPRESENTATIVE - TRAFFIC WORKFORCE REPRESENTATIVE Work Phone: [facility] Comment on above: Type 2 diabetes willard itus without complication, without long- term current use of insulin (CMS/HCC) (HCC) (Primary Dx); Hereditary hemochromatosis (HCC); Primary hypertension Start: 03-21-2023 Telephone encounter Sedrick buchanan PATIENT SERVICE REPRESENTATIVE - TRAFFIC WORKFORCE REPRESENTATIVE Work Phone: [facility] Comment on above: New Patient Procedures Date Procedure Procedure Detail Performing Clinician Start: 02-24-2025 Mammography Sedrick Susie buchanan PATIENT SERVICE REPRESENTATIVE - TRAFFIC WORKFORCE REPRESENTATIVE Work Phone: Start: 01-27-2025 Lipid 1996 panel - S rosendo or Plasma Jessica Smith PATIENT SERVICE REPRESENTATIVE - TRAFFIC WORKFORCE REPRESENTATIVE Work Phone: Start: 12-28-2024 Ecg routine ecg w/le ast 12 lds w/i&r Moshe Key MD Work Phone: Start: 12-25-2024 Adult depression screening assessment Moshe Key MD Work Phone: Start: 12-07-[address] Moshe Key MD Work Phone: Start: 12-06-2024 Coagulation time, activated Dr. Moshe Key MD Work Phone: Start: 12-05-2024 End: 12-05-[address] Moshe العلي Work Phone: Start: 12-05-2024 Computed tomography of abdomen and pelvis with intravenous contrast Dr. Moshe Key MD Work Phone: Start: 12-05-2024 X-ray of chest, PA a nd lateral views Dr. Moshe Key MD Work Phone: Start: 08-30-2024 MRI of cervical spine Severiano Key MD Work Phone: Start: 08-05-2024 Lipid 1995 panel - S rosendo or Plasma Jessica Smith PATIENT SERVICE REPRESENTATIVE - TRAFFIC WORKFORCE REPRESENTATIVE Work Phone: Start: 07-30-2024 X-ray of cervical spine Dr. Moshe Key MD Work Phone: Start: 07-05-2024 Lipid 1996 panel - S rosendo or Plasma 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 PATIENT SERVICE REPRESENTATIVE - TRAFFIC WORKFORCE REPRESENTATIVE Work Phone: Start: 07-02-2024 X-ray of lumbar [...] Start: 03-06-2024 Adult depression screening assessment Sedrick Karrieenthal PATIENT SERVICE REPRESENTATIVE - TRAFFIC WORKFORCE REPRESENTATIVE Work Phone: Start: 02-23-2024 End: 02-23-2024 Screening digital breast tomosynthesis bi Sedrick Karrieenthal PATIENT SERVICE REPRESENTATIVE - TRAFFIC WORKFORCE REPRESENTATIVE Work Phone: Start: 02-12-2024 Echo tthrc r-t 2d w/wom-mode compl spec&colr d Sedrick Karrieenthal PATIENT SERVICE REPRESENTATIVE - TRAFFIC WORKFORCE REPRESENTATIVE Work Phone: Start: 02-12-2024 Thyrotropin [Units/volume] in Serum or Plasma Sedrick Bridenthal PATIENT SERVICE REPRESENTATIVE - TRAFFIC WORKFORCE REPRESENTATIVE Work Phone: Start: 01-14-2024 Thyrotropin [Units/volume] in Serum or Plasma Sedrick Bridenthal PATIENT SERVICE REPRESENTATIVE - TRAFFIC WORKFORCE REPRESENTATIVE Work Phone: Start: 08-05-2023 Colonoscopy Austin wolfe MD Work Phone: Start: 05-07-2023 Lipid 1996 panel - S rosendo or Plasma Sedrick Bridenthal PATIENT SERVICE REPRESENTATIVE - TRAFFIC WORKFORCE REPRESENTATIVE Work Phone: Start: 05-07-2023 Thyrotropin [Units/volume] in Serum or Plasma Sedrick Bridenthal PATIENT SERVICE REPRESENTATIVE - TRAFFIC WORKFORCE REPRESENTATIVE Work Phone: Start: 04-23-2023 Adult depression screening assessment Sedrick Bridenthal PATIENT SERVICE REPRESENTATIVE - TRAFFIC WORKFORCE REPRESENTATIVE Work Phone: Start: 04-02-2023 Adult depression screening assessment Sedrick Karrieenthal PATIENT SERVICE REPRESENTATIVE - TRAFFIC WORKFORCE REPRESENTATIVE Work Phone: Start: 02-12-2023 Mammography Sedrick Richards noelthal PATIENT SERVICE REPRESENTATIVE - TRAFFIC WORKFORCE REPRESENTATIVE Work Phone: H/O: surgery H/O excision of mass Austin Leos MD Work Phone: Plan of Treatment Date Care Activity Detail Author Start: 08-04-2033 Screening for malignant neoplasm of colon [facility] Start: 2029 RSV Immunization for Adults (1 - 1-dose 75+ series) RSV Immunization for Adults (1 - 1-dose 75+ series) [facility] Start: 01-19-2027 Screening for malignant neoplasm of colon Colorectal Cancer Screening [facility] Comment on above: Postponed from 1954 (Other System Reasons) Start: 12-04-2026 Screening for malignant neoplasm of colon FIT-DNA [facility] Start: 04-23-2026 Screening for malignant neoplasm of colon Colorectal Cancer Screening [facility] Comment on above: Postponed from 1954 (Other Patient Reasons) Start: 02-24-2026 Screening for malignant neoplasm of breast Mammogram [facility] Start: 01-27-2026 Lipid panel Lipid Panel [facility] Start: 12-25-2025 Depression Screening Depression Screening [facility] Start: 08-05-2025 Lipid panel Lipid Panel [facility] Start: 07-05-2025 Lipid panel Lipid Panel [facility] Start: 06-03-2025 Lipid panel Lipid Panel [facility] Start: 06-03-2025 Thyroid stimulating hormone measurement TSH Level [facility] Start: 05-05-2025 End: 05-05-2025 Patient encounter procedure 05/05/2025 10:20 AM EST Office Visit [facility] [address] [place] [address] 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, PATIENT SERVICE REPRESENTATIVE - TRAFFIC WORKFORCE REPRESENTATIVE [address] [place] [address] [facility] Start: 05-04-2025 Diabetes: Estimated Glomerular Filtration Rate for Kidney Health Diabetes: Estimated Glomerular Filtration Rate for Kidney Health [facility] Start: 05-04-2025 Hemoglobin A1c measurement Diabetes: Hemoglobin A1C [facility] Start: 05-04-2025 Lipid panel Lipid Panel [facility] Start: 05-04-2025 Preventive dental service Diabetes: Dental Exam [facility] Comment on above: Postponed from 04/23/2023 (Patient Refus ed) Start: 05-04-2025 Thyroid stimulating hormone measurement TSH Level [facility] Start: 05-03-2025 Depression Screening Depression Screening [facility] Start: 03-31-2025 Registered Recurring Registered [facility]ring -Cardiac Rehab Work Phone: Start: 03-30-2025 End: 03-30-2025 Patient encounter procedure 03/30/2025 1:15 PM EST Office Visit [facility] [address] [place] [address] [place] [address] Moshe Key MD [address] [place] [address] [facility] Start: 03-30-2025 End: 03-30-2025 Patient encounter procedure 03/30/2025 11:40 AM EST [facility] [address] [place] [address] BridenthalTraciSedrick, PATIENT SERVICE REPRESENTATIVE - TRAFFIC WORKFORCE REPRESENTATIVE [address] [place] [address] [facility] Start: 03-16-2025 End: 03-25-2025 Discharged Recurring Discharged Recurring -Cardiac Rehab Work Phone: Start: 03-09-2025 Diabetic foot examination Diabetes: Foot Exam [facility] Start: 03-06-2025 Depression Screening Depression Screening [facility] Start: 02-24-2025 End: 02-24-2025 Patient encounter procedure 02/24/2025 11:00 AM EDT Appointment [facility] [address] [place] [id number] Bridenthal, Sedrick, PATIENT SERVICE REPRESENTATIVE - TRAFFIC WORKFORCE REPRESENTATIVE [address] [place] [address] [place] [address] [facility] Start: 02-22-2025 Screening for malignant neoplasm of breast Mammogram [facility] Start: 02-14-2025 Glaucoma screening Diabetes: Retinopathy Screening [facility] Start: 02-11-2025 Thyroid stimulating hormone measurement TSH Level [facility] Start: 02-08-2025 Screening for malignant neoplasm of lung Lung Cancer Screening [facility] Start: 01-27-2025 End: 01-27-2025 Clinical Support 01/27/2025 9:30 AM EDT Clinical Support [facility] [address] [place] [address] [facility] Start: 01-24-2025 COVID-19 Vaccine ( season) COVID-19 Vaccine () [facility] Start: 01-24-2025 COVID-19 Vaccine ( season) COVID-19 Vaccine () [facility] Start: 01-24-2025 Influenza vaccination Influenza Vaccine (#1) [facility] Start: 01-20-2025 Diabetes: Urine Albumin-Creatinine Ratio for Kidney Health Diabetes: Urine Albumin-Creatinine Ratio for Kidney Health [facility] Start: 01-13-2025 Thyroid stimulating hormone measurement TSH Level [facility] Start: 12-28-2024 End: 12-28-2024 Patient encounter procedure 12/28/2024 10:00 AM EDT Office Visit [facility] [address] [place] [address] Moshe Key MD [address] [place] [id number] [facility] Start: 12-10-2024 Patient referral to dietitian [facility] Start: 12-09-2024 Electrocardiographic procedure [facility] Start: 12-08-2024 Electrocardiographic procedure [facility] Start: 12-07-2024 [facility] Start: 12-07-2024 Patient discharge [facility] Start: 12-06-2024 [facility] Start: 12-06-2024 Ambulation without limitation [facility] Start: 12-06-2024 Dietary regime [facility] Start: 12-06-2024 End: 12-06-2024 Notification of physician [facility] Start: 12-06-2024 Patient education [facility] Start: 12-06-2024 End: 12-06-2024 [facility] Start: 12-06-2024 Cardiac monitoring [facility] Start: 12-06-2024 Cardiac rehabilitation - phase 1 [facility] Start: 12-06-2024 Cardiac rehabilitation - phase 2 [facility] Start: 12-06-2024 Patient discharge [facility] Start: 12-06-2024 Pulse taking [facility] Start: 12-06-2024 Catheterization of vein [facility] Start: 12-06-2024 Notification of physician [facility] Start: 12-06-2024 Preoperative care [facility] Start: 12-06-2024 End: 12-06-2024 [facility] Start: 12-05-2024 Assessment of risk of venous thromboembolism [facility] Start: 12-05-2024 Care regimes management [facility] Start: 12-05-2024 Inhalation therapy procedure [facility] Start: 12-05-2024 Insertion of catheter into peripheral vein [facility] Start: 12-05-2024 Introduction of urinary catheter [facility] Start: 12-05-2024 Measuring intake and output [facility] Start: 12-05-2024 Notification of physician [facility] Start: 12-05-2024 Oxygen therapy [facility] Start: 12-05-2024 Providing care according to standard [facility] Start: 12-05-2024 Provision of activity privileges [facility] Start: 12-05-2024 Referral to day guard [facility] Start: 12-05-2024 Referral to service [facility] Start: 12-05-2024 Tobacco use cessation education [facility] Start: 12-05-2024 Following clinical pathway protocol [facility] Start: 12-05-2024 End: 12-05-2024 [facility] Start: 12-05-2024 Verification routine [facility] Start: 12-05-2024 Admission procedure [facility] Start: 12-05-2024 [facility] Start: 12-05-2024 [facility] Start: 12-05-2024 Patient referral to dietitian [facility] Start: 10-21-2024 Diabetes: Estimated Glomerular Filtration Rate for Kidney Health Diabetes: Estimated Glomerular Filtration Rate for Kidney Health [facility] Start: 08-26-2024 Hemoglobin A1c measurement Diabetes: Hemoglobin A1C [facility] Start: 08-22-2024 COVID-19 Vaccine ( season) COVID-19 Vaccine () [facility] Start: 08-05-2024 End: 08-05-2024 Clinical Support 08/05/2024 9:30 AM EDT Clinical Support [facility] [place] [address] [place] [address] [facility] [place] Start: 07-28-2024 Diabetes: Estimated Glomerular Filtration Rate for Kidney Health Diabetes: Estimated Glomerular Filtration Rate for Kidney Health [facility] Start: 07-05-2024 End: 07-05-2024 Clinical Support 07/05/2024 9:30 AM EST Clinical Support [facility] [place] [address] [place] [address] [facility] [place] Start: 06-28-2024 End: 06-28-2024 Patient encounter procedure 06/28/2024 9:20 AM EST Office Visit [facility] [place] [address] [place] [address] 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, PATIENT SERVICE REPRESENTATIVE - TRAFFIC WORKFORCE REPRESENTATIVE [address] [place] [address] [place] [address] [facility] [place] Start: 06-24-2024 COVID-19 Vaccine ( season) COVID-19 Vaccine () [facility] Start: 06-03-2024 End: 06-03-2024 Clinical Support 06/03/2024 9:30 AM EST Clinical Support [facility] [address] [place] [address] [facility] Start: 05-26-2024 Medicare Advantage Annual Wellness Visit Medicare Advantage Annual Wellness Visit [facility] Start: 05-25-2024 End: 05-25-2025 XR Knee - right 4 Views XR knee 4+ views right Imaging Routine Acute pain of right knee Expected: 05/25/2024, Expires: 05/25/2025 [facility] Work Phone: Comment on above: Expected: 05/25/2024, Expires: Start: 05-25-2024 End: 05-25-2024 Patient encounter procedure 05/25/2024 10:40 AM EST Office Visit [facility] [address] [facility] [place] [address] Bridchristina, Sedrick, PATIENT SERVICE REPRESENTATIVE - TRAFFIC WORKFORCE REPRESENTATIVE [address] [place] [address] [facility] Start: 05-07-2024 Hemoglobin A1c measurement Diabetes: Hemoglobin A1C [facility] Start: 05-07-2024 Lipid panel Lipid Panel [facility] Start: 05-07-2024 Thyroid stimulating hormone measurement TSH Level [facility] Start: 05-04-2024 End: 05-04-2025 CBC W Auto Differential panel - Blood CBC auto differential Lab Routine Hereditary hemochromatosis (HCC) Expected: 05/04/2024 (Approximate), Expires: 05/04/2025 [facility] Comment on above: Expected: 05/04/2024 (Approximate), Expi res: 05/04/2025 Start: 05-04-2024 End: 05-04-2025 Comprehensive metabolic 1998 panel - Serum or Plasma Comprehensive metabolic panel Lab Routine Type 2 diabetes mellitus without complication, without long-term current use of insulin (CMS/HCC) (HCC) Expected: 05/04/2024 (Approximate), Expires: 05/04/2025 [facility] Comment on above: Expected: 05/04/2024 (Approximate), Expi res: 05/04/2025 Start: 05-04-2024 End: 05-04-2025 Ferritin [Mass/volume] in Serum or Plasma Ferritin Lab Routine Hereditary hemochromatosis (HCC) Expected: 05/04/2024 (Approximate), Expires: 05/04/2025 [facility] Comment on above: Expected: 05/04/2024 (Approximate), Expi res: 05/04/2025 Start: 05-04-2024 End: 05-04-2025 Hemoglobin A1c measurement Hemoglobin A1c Lab Routine Type 2 diabetes mellitus without complication, without long-term current use of insulin (CMS/HCC) (HCC) Expected: 05/04/2024 (Approximate), Expires: 05/04/2025 [facility] Comment on above: Expected: 05/04/2024 (Approximate), Expi res: 05/04/2025 Start: 05-04-2024 End: 05-04-2025 Iron and Iron binding capacity panel - Serum or Plasma Iron and TIBC Lab Routine Hereditary hemochromatosis (HCC) Expected: 05/04/2024 (Approximate), Expires: 05/04/2025 [facility] Comment on above: Expected: 05/04/2024 (Approximate), Expi res: 05/04/2025 Start: 05-04-2024 End: 05-04-2025 Lipid 1996 panel - Serum or Plasma Lipid panel Lab Routine Pure hypercholesterolemia Expected: 05/04/2024 (Approximate), Expires: 05/04/2025 [facility] Work Phone: Comment on above: Expected: 05/04/2024 (Approximate), Expi res: 05/04/2025 Start: 05-04-2024 End: 05-04-2025 Thyrotropin [Units/volume] in Serum or Plasma TSH Lab Routine Acquired hypothyroidism Expected: 05/04/2024 (Approximate), Expires: 05/04/2025 [facility] Comment on above: Expected: 05/04/2024 (Approximate), Expi res: 05/04/2025 Start: 05-04-2024 End: 05-04-2024 Patient encounter procedure [facility] Start: 04-27-2024 Medicare Advantage Annual Wellness Visit Medicare Advantage Annual Wellness Visit [facility] Comment on above: Postponed from 05/26/2023 (Other System Reasons) Start: 04-23-2024 Depression Screening Depression Screening [facility] Start: 04-23-2024 Diabetic foot examination Diabetes: Foot Exam [facility] Start: 04-23-2024 Screening for osteoporosis Bone Density Scan [facility] Comment on above: Postponed from 1954 (Patient Refus ed) Start: 04-23-2024 Zoster Vaccines (1 of 2) Zoster Vaccines (1 of 2) [facility] Comment on above: Postponed from 2004 (Patient Refus ed) Start: 04-23-2024 Zoster Vaccines (2 of 2) Zoster Vaccines (2 of 2) [facility] Comment on above: Postponed from 02/19/2022 (Patient Refus ed) Start: 04-15-2024 End: 04-15-2024 Patient encounter procedure [facility] Start: 04-02-2024 COVID-19 Vaccine (#1) COVID-19 Vaccine (#1) [facility] Comment on above: Postponed from 01/14/1956 (Patient Refus ed) Start: 04-02-2024 COVID-19 Vaccine ( season) COVID-19 Vaccine ( season) [facility] Comment on above: Postponed from 01/24/2023 (Patient Refus ed) Start: 04-02-2024 Depression Screening Depression Screening [facility] Start: 04-02-2024 DTaP/Tdap/Td Vaccines (1 - Tdap) DTaP/Tdap/Td Vaccines (1 - Tdap) [facility] Comment on above: Postponed from 1973 (Patient Refus ed) Start: 04-02-2024 Hepatitis C screening Hepatitis C Screening [facility] Comment on above: Postponed from 1972 (Patient Refus ed) Start: 03-12-2024 End: 03-12-2024 Clinical Support 03/12/2024 9:00 AM EDT Clinical Support [facility] [address] [facility] [place] [address] [facility] Start: 02-23-2024 End: 02-23-2024 Patient encounter procedure 02/23/2024 11:40 AM EDT Appointment [facility] [address] [place] [id number] Sedrick Hemphill, PATIENT SERVICE REPRESENTATIVE - TRAFFIC WORKFORCE REPRESENTATIVE [address] [facility] [place] [address] [facility] Start: 02-21-2024 End: 03-22-2025 DBT Breast - bilateral screening Bilateral screening mammogram with tomosynthesis Imaging Routine Encounter for screening mammogram for malignant neoplasm of breast Expected: 02/21/2024, Expires: 03/22/2025 [facility] Comment on above: Expected: 02/21/2024, Expires: Start: 02-15-2024 Glaucoma screening Diabetes: Retinopathy Screening [facility] Start: 02-15-2024 End: 01-14-2025 Thyrotropin [Units/volume] in Serum or Plasma TSH Lab Routine Hypothyroidism, unspecified type Expected: 02/15/2024 (Approximate), Expires: 01/14/2025 [facility] [facility] Work Phone: Comment on above: Expected: 02/15/2024 (Approximate), Expi res: 01/14/2025 Start: 02-13-2024 Screening for malignant neoplasm of breast Mammogram [facility] Start: 02-12-2024 End: 02-12-2024 Clinical Support [facility] Start: 01-25-2024 COVID-19 Vaccine ( season) COVID-19 Vaccine ( season) [facility] Start: 01-25-2024 Influenza vaccination [facility] Start: 01-21-2024 End: 01-19-2025 CT Chest for screening WO contrast CT lung screening low dose Imaging Routine History of tobacco use Expected: 01/21/2024, Expires: 01/19/2025 [facility] Comment on above: Expected: 01/21/2024, Expires: Start: 01-21-2024 End: 01-19-2025 Microalbumin/Creatinine panel in random Urine Microalbumin / creatinine, urine ratio Lab Routine Type 2 diabetes mellitus without complication, without long-term current use of insulin (CMS/HCC) (HCC) Expected: 01/21/2024 (Approximate), Expires: 01/19/2025 [facility] [email or web address] Work Phone: Comment on above: Expected: 01/21/2024 (Approximate), Expi res: 01/19/2025 Start: 01-21-2024 End: 01-20-2026 US Heart Transthoracic Transthoracic echocardiogram (TTE) complete with contrast, bubble, strain, and 3D PRN CV Echocardiography Routine Murmur, cardiac Expected: 01/21/2024 (Approximate), Expires: 01/20/2026 [facility] Comment on above: Expected: 01/21/2024 (Approximate), Expi res: 01/20/2026 Start: 01-21-2024 End: 01-21-2024 Patient encounter procedure 01/21/2024 10:20 AM EDT Office Visit [facility] [address] [place] [address] [place] [address] Sedrick Hemphill, PATIENT SERVICE REPRESENTATIVE - TRAFFIC WORKFORCE REPRESENTATIVE [address] [place] [address] [place] [address] [facility] Start: 01-14-2024 End: 12-02-2024 CBC W Auto Differential panel - Blood CBC auto differential Lab Routine Iron deficiency anemia, unspecified iron deficiency anemia type Expected: 01/14/2024 (Approximate), Expires: 12/02/2024 [facility] Work Phone: Comment on above: Expected: 01/14/2024 (Approximate), Expi res: 12/02/2024 Start: 01-14-2024 End: 12-02-2024 Cobalamin (Vitamin B12) [Mass/volume] in Serum or Plasma Vitamin B12 Lab Routine Anemia, unspecified type Expected: 01/14/2024 (Approximate), Expires: 12/02/2024 [facility] Comment on above: Expected: 01/14/2024 (Approximate), Expi res: 12/02/2024 Start: 01-14-2024 End: 12-02-2024 Ferritin [Mass/volume] in Serum or Plasma Ferritin Lab Routine Iron deficiency anemia, unspecified iron deficiency anemia type Expected: 01/14/2024 (Approximate), Expires: 12/02/2024 [facility] Comment on above: Expected: 01/14/2024 (Approximate), Expi res: 12/02/2024 Start: 01-14-2024 End: 12-02-2024 Folate [Mass/volume] in Serum or Plasma Folate Lab Routine Anemia, unspecified type Expected: 01/14/2024 (Approximate), Expires: 12/02/2024 [facility] Comment on above: Expected: 01/14/2024 (Approximate), Expi res: 12/02/2024 Start: 01-14-2024 End: 12-02-2024 Iron and Iron binding capacity panel - Serum or Plasma Iron and TIBC Lab Routine Iron deficiency anemia, unspecified iron deficiency anemia type Expected: 01/14/2024 (Approximate), Expires: 12/02/2024 [facility] Comment on above: Expected: 01/14/2024 (Approximate), Expi res: 12/02/2024 Start: 01-14-2024 End: 12-02-2024 Thyrotropin [Units/volume] in Serum or Plasma TSH Lab Routine Anemia, unspecified type Hypothyroidism, unspecified type Expected: 01/14/2024 (Approximate), Expires: 12/02/2024 [facility] Comment on above: Expected: 01/14/2024 (Approximate), Expi res: 12/02/2024 Start: 01-14-2024 End: 12-02-2024 Transferrin [Mass/volume] in Serum or Plasma Transferrin Lab Routine Iron deficiency anemia, unspecified iron deficiency anemia type Expected: 01/14/2024 (Approximate), Expires: 12/02/2024 [facility] Comment on above: Expected: 01/14/2024 (Approximate), Expi res: 12/02/2024 Start: 01-14-2024 End: 01-14-2024 Clinical Support 01/14/2024 10:00 AM EDT Clinical Support [facility] [place] [address] [facility] Start: 12-24-2023 End: 12-23-2024 25-hydroxyvitamin D3 [Mass/volume] in Serum or Plasma Vitamin D Deficiency Screening (Vit D 25) Lab Routine Osteopenia of lumbar spine Expected: 12/24/2023 (Approximate), Expires: 12/23/2024 [facility] [email or web address] Work Phone: Comment on above: Expected: 12/24/2023 (Approximate), Expi res: 12/23/2024 Start: 12-24-2023 End: 12-23-2024 DXA Skeletal system.axial Views for bone density DEXA bone density axial skeleton Imaging Routine Osteopenia of lumbar spine Expected: 12/24/2023, Expires: 12/23/2024 [facility] Comment on above: Expected: 12/24/2023, Expires: Start: 12-15-2023 End: 12-14-2024 XR Lumbar spine Views W flexion and W extension XR lumbar spine 4-5 view Imaging Routine Chronic left-sided low back pain without sciatica Expected: 12/15/2023, Expires: 12/14/2024 [email or web address] Work Phone: Comment on above: Expected: 12/15/2023, Expires: Start: 12-06-2023 Screening for malignant neoplasm of colon Colorectal Cancer Screening [facility] Start: 12-01-2023 End: 12-01-2023 Clinical Support 12/01/2023 9:00 AM EDT Clinical Support [facility] [address] [place], [place] [id number] [facility] Start: 11-25-2023 End: 11-25-2023 Patient encounter procedure 11/25/2023 1:00 PM EDT Office Visit [facility] [address] [place] [address] Nadya Harkins PA-C [address] [place] [address] [address] [place] [address] [facility] Start: 11-23-2023 Influenza vaccination Influenza Vaccine (#1) [facility] Comment on above: Postponed from 01/24/2023 (Patient Refus ed) Start: 10-29-2023 Screening for malignant neoplasm of colon [facility] Start: 10-22-2023 End: 10-21-2024 CBC W Auto Differential panel - Blood CBC auto differential Lab Routine Hereditary hemochromatosis (HCC) Expected: 10/22/2023 (Approximate), Expires: 10/21/2024 [facility] Work Phone: Comment on above: Expected: 10/22/2023 (Approximate), Expi res: 10/21/2024 Start: 10-22-2023 End: 10-21-2024 Comprehensive metabolic 1998 panel - Serum or Plasma Comprehensive metabolic panel Lab Routine Type 2 diabetes mellitus without complication, without long-term current use of insulin (CMS/HCC) (HCC) Swelling of both lower extremities Expected: 10/22/2023 (Approximate), Expires: 10/21/2024 [facility] Comment on above: Expected: 10/22/2023 (Approximate), Expi res: 10/21/2024 Start: 10-22-2023 End: 10-21-2024 Ferritin [Mass/volume] in Serum or Plasma Ferritin Lab Routine Hereditary hemochromatosis (HCC) Expected: 10/22/2023 (Approximate), Expires: 10/21/2024 [facility] Comment on above: Expected: 10/22/2023 (Approximate), Expi res: 10/21/2024 Start: 10-22-2023 End: 10-21-2024 Iron and Iron binding capacity panel - Serum or Plasma Iron and TIBC Lab Routine Hereditary hemochromatosis (HCC) Expected: 10/22/2023 (Approximate), Expires: 10/21/2024 [facility] Comment on above: Expected: 10/22/2023 (Approximate), Expi res: 10/21/2024 Start: 10-22-2023 RSV Immunization aged 60 or older (1 - 1-dose 60+ series) RSV Immunization aged 60 or older (1 - 1-dose 60+ series) [facility] Comment on above: Postponed from 2014 (Patient Refus ed) Start: 10-22-2023 Screening for malignant neoplasm of lung Lung Cancer Screening [facility] Comment on above: Postponed from 2004 (Patient Refus ed) Start: 10-22-2023 End: 10-22-2023 Patient encounter procedure 10/22/2023 10:20 AM EDT Office Visit [facility] [place] [address] Sedrick Hemphill, PATIENT SERVICE REPRESENTATIVE - TRAFFIC WORKFORCE REPRESENTATIVE [address] [place] [address] [facility] Start: 10-14-2023 End: 10-14-2023 Patient encounter procedure 10/14/2023 1:30 PM EDT Office Visit [facility] [address] [place] [address] Nadya Harkins PA-C [address] [place] [address] [facility] Start: 09-16-2023 End: 09-16-2023 Patient encounter procedure [facility] Start: 09-03-2023 End: 09-03-2023 Admission to same day surgery center 09/03/2023 9:30 AM EDT - 09/03/2023 10:30 AM EDT Surgery [facility] [address] [place] [address] Austin Leos MD [address] [place] [address] RIGHT VOLAR RADIAL WRIST MASS EXCISION [20621 (CPT )] [facility] Comment on above: RIGHT VOLAR RADIAL WRIST MASS EXCISION [ 88409 (CPT )] Start: 09-03-2023 Subsequent hospital visit by physician 09/03/2023 9:30 AM EDT Hospital Encounter [facility] [address] [place] [address] Austin Leos MD [address] [facility] [address] [place], [place] [id number] [facility] Start: 09-03-2023 End: 09-03-2023 Excision ganglion wrist dorsal/volar primary [facility] Operating Room Start: 08-27-2023 End: 08-27-2023 Admission to establishment 08/27/2023 10:00 AM EDT Pre-Admission Testing [facility] Pre-Admit Testing [address] [place] [address] [facility] Pre-Admit Testing Start: 08-05-2023 End: 08-05-2023 Patient encounter procedure 08/05/2023 1:00 PM EDT Office Visit [facility] [address] [place] [phone] Deric, Austin Martinez MD [address] [place] [address] [address] [place] [address] [facility] Start: 07-24-2023 End: 07-23-2024 CBC W Auto Differential panel - Blood CBC auto differential Lab Routine Hereditary hemochromatosis (HCC) Expected: 07/24/2023 (Approximate), Expires: 07/23/2024 [facility] Work Phone: Comment on above: Expected: 07/24/2023 (Approximate), Expi res: 07/23/2024 Start: 07-24-2023 End: 07-23-2024 Ferritin [Mass/volume] in Serum or Plasma Ferritin Lab Routine Hereditary hemochromatosis (HCC) Expected: 07/24/2023 (Approximate), Expires: 07/23/2024 [facility] Comment on above: Expected: 07/24/2023 (Approximate), Expi res: 07/23/2024 Start: 07-24-2023 End: 07-23-2024 Iron and Iron binding capacity panel - Serum or Plasma Iron and TIBC Lab Routine Hereditary hemochromatosis (HCC) Expected: 07/24/2023 (Approximate), Expires: 07/23/2024 [facility] Comment on above: Expected: 07/24/2023 (Approximate), Expi res: 07/23/2024 Start: 07-24-2023 End: 07-24-2023 Patient encounter procedure 07/24/2023 10:00 AM EST Office Visit [facility] [address] [place] [address] PaulhenrySylviaca, PATIENT SERVICE REPRESENTATIVE - TRAFFIC WORKFORCE REPRESENTATIVE [address] [place] [address] [facility] Start: 07-01-2023 [facility] Start: 06-04-2023 End: 06-04-2024 XR Wrist - right 3 Views XR wrist 3+ views right Imaging Routine Mass of joint of right wrist Expected: 06/04/2023, Expires: 06/04/2024 [facility] Work Phone: Comment on above: Expected: 06/04/2023, Expires: Start: 05-26-2023 Medicare Advantage Annual Wellness Visit Medicare Advantage Annual Wellness Visit [facility] Start: 05-07-2023 End: 05-07-2023 Clinical Support 05/07/2023 10:00 AM EST Clinical Support [facility] [address] [place] [address] [facility] Start: 04-23-2023 End: 04-23-2024 CBC panel - Blood by Automated count CBC Lab Routine Hereditary hemochromatosis (HCC) Expected: 04/23/2023 (Approximate), Expires: 04/23/2024 [facility] Comment on above: Expected: 04/23/2023 (Approximate), Expi res: 04/23/2024 Start: 04-23-2023 End: 04-23-2024 Ferritin [Mass/volume] in Serum or Plasma Ferritin Lab Routine Hereditary hemochromatosis (HCC) Expected: 04/23/2023 (Approximate), Expires: 04/23/2024 [facility] Comment on above: Expected: 04/23/2023 (Approximate), Expi res: 04/23/2024 Start: 04-23-2023 End: 04-23-2024 Hemoglobin A1c measurement Hemoglobin A1c Lab Routine Type 2 diabetes mellitus without complication, without long-term current use of insulin (CMS/HCC) (HCC) Expected: 04/23/2023 (Approximate), Expires: 04/23/2024 [facility] Comment on above: Expected: 04/23/2023 (Approximate), Expi res: 04/23/2024 Start: 04-23-2023 End: 04-23-2024 Iron and Iron binding capacity panel - Serum or Plasma Iron and TIBC Lab Routine Hereditary hemochromatosis (HCC) Expected: 04/23/2023 (Approximate), Expires: 04/23/2024 [facility] Work Phone: Comment on above: Expected: 04/23/2023 (Approximate), Expi res: 04/23/2024 Start: 04-23-2023 End: 04-23-2024 Lipid 1996 panel - Serum or Plasma Lipid panel Lab Routine Type 2 diabetes mellitus without complication, without long-term current use of insulin (CMS/HCC) (HCC) Expected: 04/23/2023 (Approximate), Expires: 04/23/2024 [facility] Comment on above: Expected: 04/23/2023 (Approximate), Expi res: 04/23/2024 Start: 04-23-2023 Preventive dental service Diabetes: Dental Exam [facility] Start: 04-23-2023 End: 04-23-2024 Thyrotropin [Units/volume] in Serum or Plasma TSH Lab Routine Hypothyroidism, unspecified type Expected: 04/23/2023 (Approximate), Expires: 04/23/2024 [facility] Comment on above: Expected: 04/23/2023 (Approximate), Expi res: 04/23/2024 Start: 04-23-2023 End: 04-23-2023 Patient encounter procedure 04/23/2023 10:00 AM EST Office Visit [facility] [address] [place] [address] [place] [address] Sedrick Hemphill, PATIENT SERVICE REPRESENTATIVE - TRAFFIC WORKFORCE REPRESENTATIVE [address] [place] [address] [place] [address] [facility] Start: 04-02-2023 End: 04-02-2023 Patient encounter procedure 04/02/2023 11:00 AM EST Office Visit [facility] [address] [place] [address] [place] [address] Sedrick Hemphill, PATIENT SERVICE REPRESENTATIVE - TRAFFIC WORKFORCE REPRESENTATIVE [address] [place] [address] [facility] Start: 01-24-2023 Influenza vaccination Influenza Vaccine (#1) [facility] Start: 02-19-2022 Zoster Vaccines (2 of 2) Zoster Vaccines (2 of 2) [facility] Start: 2019 Pneumococcal Vaccine: 65+ Years (1 - PCV) Pneumococcal Vaccine: 65+ Years (1 - PCV) [facility] Start: 2014 RSV Immunization aged 60 or older (1 - 1-dose 60+ series) RSV Immunization aged 60 or older (1 - 1-dose 60+ series) [facility] Start: 2014 RSV Immunization for Adults (1 - Risk 60-74 years 1-dose series) RSV Immunization for Adults (1 - Risk 60-74 years 1-dose series) [facility] Start: 2004 RSV Immunization for Adults (1 - Risk 50-74 years 1-dose series) RSV Immunization for Adults (1 - Risk 50-74 years 1-dose series) [facility] Start: 2004 Screening for malignant neoplasm of lung Lung Cancer Screening [facility] Start: 2004 Zoster Vaccines (1 of 2) Zoster Vaccines (1 of 2) [facility] Start: 1994 Screening for malignant neoplasm of breast Mammogram [facility] Start: 1973 DTaP/Tdap/Td Vaccines (1 - Tdap) DTaP/Tdap/Td Vaccines (1 - Tdap) [facility] Start: 1973 Hepatitis A Vaccines (1 of 2 - Risk 2-dose series) Hepatitis A Vaccines (1 of 2 - Risk 2-dose series) [facility] Start: 1972 Diabetes: Urine Albumin-Creatinine Ratio for Kidney Health Diabetes: Urine Albumin-Creatinine Ratio for Kidney Health [facility] Start: 1972 Hepatitis C screening Hepatitis C Screening [facility] Start: 1966 Depression Screening Depression Screening [facility] Start: 1964 Diabetic foot examination Diabetes: Foot Exam [facility] Start: 1964 Glaucoma screening Diabetes: Retinopathy Screening [facility] Start: 1964 Preventive dental service Diabetes: Dental Exam [facility] Start: 1960 Pneumococcal Vaccine: 65+ Years (1 - PCV) Pneumococcal Vaccine: 65+ Years (1 - PCV) [facility] Start: 01-14-1955 COVID-19 Vaccine (#1) COVID-19 Vaccine (#1) [facility] Start: 1954 DISCONTINUED Medicare Advantage Annual Wellness Visit (AWV) DISCONTINUED Medicare Advantage Annual Wellness Visit (AWV) [facility] Start: 1954 Hemoglobin A1c measurement Diabetes: Hemoglobin A1C [facility] Start: 1954 Lipid panel Lipid Panel [facility] Start: 1954 Medicare Advantage Annual Wellness Visit (AWV) Medicare Advantage Annual Wellness Visit (AWV) [facility] Start: 1954 Screening for malignant neoplasm of colon [facility] Start: 1954 Screening for osteoporosis Bone Density Scan [facility] Start: 1954 Thyroid stimulating hormone measurement TSH Level [facility] Cologuard colon cancer screening Lab Routine Colon cancer screening Ordered: 12/01/2023 [facility] [email or web address] Work Phone: Comment on above: Ordered: 12/01/2023 End: 02-09-2024 CT Chest for screening WO contrast [facility] [email or web address] Work Phone: Comment on above: Once for 1 Occurrences starting 02/09/20 until 02/09/2024 End: 02-24-2025 DBT Breast - bilateral screening [facility] Work Phone: Comment on above: Once for 1 Occurrences starting 02/25/20 until 02/24/2025 Patient Education ED Vertigo, Un specified ED Gastroenteritis, Viral (Adult) [facility] Work Phone: Patient referral [facility] Work Phone: Tissue exam [facility] [email or web address] Work Phone: Comment on above: Release Upon Ordering for 1 Occurrences starting 09/03/2023 US Heart limited [facility] XR Knee GE 4 Views [facility] End: 12-17-2023 XR Lumbar spine Views W flexion and W extension [facility] Work Phone: Comment on above: Once for 1 Occurrences starting 12/17/19 24 until 12/17/2023 [facility] Immunizations Immunization Date Immunization Notes Care Provider [facility] 05-04-2024 diphtheria, tetanus toxoids and acellular pertussis vaccine, unspecified formulation Moshe Key MD Work Phone: [facility] 05-04-2024 zoster vaccine-recombinant adjuvanted (Shingrix) 50 MCG/0.5ML vaccine Moshe Key MD Work Phone: [facility] 02-23-2024 Pfizer SARS-CoV-2 Vaccination Sedrick Bridenthal PATIENT SERVICE REPRESENTATIVE - TRAFFIC WORKFORCE REPRESENTATIVE Work Phone: [facility] 01-12-2024 influenza virus vacc ine, unspecified formulation Sedrick Bridenthal PATIENT SERVICE REPRESENTATIVE - TRAFFIC WORKFORCE REPRESENTATIVE Work Phone: [facility] 01-12-2024 influenza, high dose seasonal, preservative-free Sedrick Bridenthal PATIENT SERVICE REPRESENTATIVE - TRAFFIC WORKFORCE REPRESENTATIVE Work Phone: [facility] 04-23-2023 Pneumococcal Conjuga te PCV20, Pf (Prevnar 20) Sedrick Bridenthal PATIENT SERVICE REPRESENTATIVE - TRAFFIC WORKFORCE REPRESENTATIVE Work Phone: [facility] 03-01-2022 Moderna SARS-CoV-2 Vaccination Sedrick Bridenthal PATIENT SERVICE REPRESENTATIVE - TRAFFIC WORKFORCE REPRESENTATIVE Work Phone: [facility] 02-25-2022 Influenza, Seasonal, Quadrivalent, Adjuvanted Sedrick Bridenthal PATIENT SERVICE REPRESENTATIVE - TRAFFIC WORKFORCE REPRESENTATIVE Work Phone: [facility] 02-25-2022 influenza virus vacc ine, unspecified formulation Sedrick Bridenthal PATIENT SERVICE REPRESENTATIVE - TRAFFIC WORKFORCE REPRESENTATIVE Work Phone: [facility] 12-25-2021 zoster vaccine recombinant Sedrick Bridenthal PATIENT SERVICE REPRESENTATIVE - TRAFFIC WORKFORCE REPRESENTATIVE Work Phone: [facility] 04-12-2021 Moderna SARS-CoV-2 Vaccination Sedrick Bridenthal PATIENT SERVICE REPRESENTATIVE - TRAFFIC WORKFORCE REPRESENTATIVE Work Phone: [facility] 03-16-2021 Influenza, Seasonal, Quadrivalent, Adjuvanted Sedrick Bridenthal PATIENT SERVICE REPRESENTATIVE - TRAFFIC WORKFORCE REPRESENTATIVE Work Phone: [facility] 09-04-2020 Moderna SARS-CoV-2 Vaccination Sedrick Bridenthal PATIENT SERVICE REPRESENTATIVE - TRAFFIC WORKFORCE REPRESENTATIVE Work Phone: [facility] 08-07-2020 Moderna SARS-CoV-2 Vaccination Sedrick Bridenthal PATIENT SERVICE REPRESENTATIVE - TRAFFIC WORKFORCE REPRESENTATIVE Work Phone: [facility] 03-17-2009 influenza virus vacc ine, whole virus Sedrick Bridenthal PATIENT SERVICE REPRESENTATIVE - TRAFFIC WORKFORCE REPRESENTATIVE Work Phone: [facility] 03-17-2009 influenza virus vacc ine, unspecified formulation Sedrick Bridenthal PATIENT SERVICE REPRESENTATIVE - TRAFFIC WORKFORCE REPRESENTATIVE Work Phone: [facility] 05-30-2003 hepatitis B vaccine, adult dosage Sedrick Bridenthal PATIENT SERVICE REPRESENTATIVE - TRAFFIC WORKFORCE REPRESENTATIVE Work Phone: [facility] 12-20-2002 hepatitis B vaccine, adult dosage Sedrick Bridenthal PATIENT SERVICE REPRESENTATIVE - TRAFFIC WORKFORCE REPRESENTATIVE Work Phone: [facility] 11-15-2002 hepatitis B vaccine, adult dosage Sedrick Bridenthal PATIENT SERVICE REPRESENTATIVE - TRAFFIC WORKFORCE REPRESENTATIVE Work Phone: [facility] Payers Date Payer Category Payer Self-pay 2023 Private Health Insurance [id number] 2023 Medicare HMO [id number] 2023 Medicare [id number] 2022 Medicare [id number] [id number] [id number] 1955 Unknown [id number] 2.16.840.1.801792.3.579.2.627 1955 Unknown [id number] 2.16.840.1.447172.3.579.2.627 Private Health Insurance [facility] [id number] Unknown [id number] Unknown [id number] 2.16.840.1.749939.3.579.2.462 Unknown [id number] 2.16.840.1.356543.3.579.2.462 Unknown [id number] 2.16.840.1.066008.3.579.2.462 Unknown [id number] 2.16.840.1.919846.3.579.2.462 Unknown [id number] 2.16.840.1.775133.3.579.2.462 Unknown [id number] 2.16.840.1.885190.3.579.2.462 Unknown [id number] 2.16.840.1.495535.3.579.2.462 Unknown [id number] 2.16.840.1.702810.3.579.2.462 Unknown [id number] 2.16.840.1.535795.3.579.2.462 Unknown [id number] 2.16.840.1.925546.3.579.2.462 Unknown [id number] 2.16.840.1.074519.3.579.2.462 Unknown [id number] 2.16.840.1.407042.3.579.2.462 Unknown [id number] 2.16.840.1.668658.3.579.2.462 Unknown [id number] 2.16.840.1.612743.3.579.2.462 Unknown [id number] 2.16.840.1.515485.3.579.2.462 Unknown [id number] 2.16.840.1.522446.3.579.2.462 Unknown [id number] 2.16.840.1.317275.3.579.2.462 Unknown [id number] 2.16.840.1.752679.3.579.2.462 Unknown [id number] 2.16.840.1.416303.3.579.2.462 Unknown [id number] 2.16.840.1.632505.3.579.2.462 Unknown [id number] 2.16.840.1.275458.3.579.2.462 Unknown [id number] 2.16.840.1.823265.3.579.2.462 Unknown [id number] 2.16.840.1.831107.3.579.2.462 Unknown [id number] 2.16840.1.480637.3.579.2.462 Unknown [id number] 2.16.840.1.200180.3.579.2.462 Unknown [id number] 2.840.1.123496.3.579.2.462 Unknown [id number] 2.840.1.626932.3.579.2.462 Unknown [id number] 2.840.1.497113.3.579.2.462 Unknown [id number] 2.16.840.1.689940.3.579.2.462 Unknown [id number] 2.16840.1.403842.3.579.2.462 Unknown [id number] 2.16840.1.123249.3.579.2.462 Unknown [id number] 2.16840.1.710586.3.579.2.462 Unknown [id number] 2.16.840.1.450232.3.579.2.462 Unknown [id number] 2.16.840.1.574866.3.579.2.462 Unknown [id number] 2.16.840.1.355220.3.579.2.462 Unknown [id number] 2.16840.1.934779.3.579.2.462 Social History Date Type Detail Facility Start: 07-01-2023 Tobacco smoking stat us [facility] Tobacco smoking consumption unknown [facility] Start: 1955 Sex Assigned At Not on file [facility] Start: 04-02-2023 End: 12-30-2024 Gender identity Not on file [facility] Start: 04-02-2023 End: 02-21-2025 Tobacco smoking status NHIS Ex-smoker [facility] Start: 05-26-1989 End: 05-26-2019 History of tobacco use Current smoker [facility] Start: 05-26-1989 End: 05-26-2019 History of tobacco use Cigarette Smoker [facility] Start: 04-02-2023 End: 12-30-2024 Cigarettes smoked current (pack per day) - Reported 1 [facility] Start: 04-02-2023 End: 02-21-2025 Tobacco use and exposure Smokeless tobacco non-user [facility] Start: 04-02-2023 End: 03-30-2025 Alcohol intake Ex-drinker (finding) [facility] Adolescent depressio n screening assessment 1 [facility] (I/We) worried wheth er (my/our) food would run out before (I/we) got money to buy more. Never true [facility] Start: 1955 Sex Assigned At Female [facility] Within the last year , have you been afraid of your partner or ex-partner? No [facility] Start: 03-21-2023 End: 09-03-2024 Sex Female (finding) [facility] Do you belong to any clubs or organizations such as gnosticist groups, unions, fraternal or athletic groups, or school groups? Yes [facility] Are you now , , , , never or living with a partner? [facility] How often to you hav e a drink containing alcohol? Never [facility] How hard is it for y ou to pay for the very basics like food, housing, medical care, and heating Not very hard [facility] Do you feel stress - tense, restless, nervous, or anxious, or unable to sleep at night because your mind is troubled all the time - these days [OSQ] Not at all [facility] Do you feel stress - tense, restless, nervous, or anxious, or unable to sleep at night because your mind is troubled all the time - these days [OSQ] Only a little [facility] Are you now , , , , never or living with a partner? [facility] Start: 02-21-2025 Tobacco Comment I quit almost 4 years ago. [facility] NEGATED: Highlighted rowStart: NINF History of tobacco use Passive smoker [facility] Medical Equipment Procedure Code Equipment Code Equipment [...] transitioning to prone Collagen haemostatic agent, non-antimicrobial [id number] FDA Start: 03-29-2024 Fusion, spine, lumbar, 360 [...] to prone SET SCREWS FDA Start: 03-29-2024 Drug-eluting coronary artery stent, tut-ihxlegpmgarpc-j olymer-coated [id number] FDA Start: 12-06-2024 Goals Date Patient Goal Desired Activity /State Functional Status Date Assessment Result Facility 12-30-2024 Total score [AUDIT-C] 0 12/31/19 12:21 PM EDT [employer], Generic [facility] 12-30-2024 How often to you hav e a drink containing alcohol? Never 12/30/2024 12:21 PM EDT [employer], Generic Never [facility] 12-30-2024 Functional status Patient does n ot drink 12/30/2024 12:21 PM EDT [employer], Generic Patient does not drink [facility] 12-30-2024 How often do you hav e 6 or more drinks on 1 occasion? Never 12/30/2024 12:21 PM EDT [employer], Generic Never [facility] 12-28-2024 Total score [AUDIT-C] 0 12/29/19 11:44 AM EDT Kourtney Hoff MA [facility] 12-07-2024 Functional status Up ad jitendra [facility] Work Phone: [facility] Mental Status Date Assessment Result Facility 12-07-2024 Cognitive function Voice/Name [facility] Work Phone: Clinical Notes 03-21-2023 to 04-05-2025 Telephone Encounter - ASAF Ramos CNP - 04/05/2025 8:06 AM ESTTelephone Encounter - ASAF Ramos CNP - 04/05/2025 8:06 AM Ramo Mccray RN - 04/04/2025 12:02 PM EST Note Date & Type Note Facility 04-05-2025 Telephone encounter Note Noted. Thank you. Discontinued Jardiance from med list/ due to cost. [facility] 04-05-2025 Miscellaneous Notes Noted. Thank you. Discontinued Jardiance from med list/ due to cost. Name of caller: Yodit Landin Contact phone number: [phone] Relationship to Patient: patient Provider: ELLE Ramos Practice: [facility] Chief Complaint/Reason for Call: Patient stated that they are not able to afford the empagliflozin (Jardiance) 10 MG that was sent to the pharmacy and would like to have a prescription for a different medication sent to the pharmacy. Patient stated to please let them know on MyChart when a new prescription has been sent to the pharmacy and what medication it is. Please advise. Thank you. Best time of day caller can be reached: Any Patient advised that office/PCP has 24-48 business hours to return their call: No documented in this encounter [facility] 04-04-2025 History of Present illness Narrative Spoke to patient, Jardiance and Farxiga are both going to be $400 out of pocket for patient and she cannot afford this, she was not interested in applying for assistance at this time, will notify provider Outreach to patient, left VM to call back to directly [phone] Jardiance and Farxiga are the only covered SGLT-2i on her plan, both will be the same cost as they are tier 3. Pt may apply for patient assistance through [employer] this application would only cover patient through 05/25/25 and she would have to re-apply in [facility] documented in this encounter [facility] 04-04-2025 Note Outreach to patient, left VM to call back to directly [phone] Jardiance and Farxiga are the only covered SGLT-2i on her plan, both will be the same cost as they are tier 3. Pt may apply for patient assistance through [employer] this application would only cover patient through 05/25/25 and she would have to re-apply in [facility] 03-31-2025 Telephone encounter Note Name of caller: Yodit Landin Contact phone number: [phone] Relationship to Patient: patient Provider: Sedrick Hemphill APRN-[facility]EMMA Practice: [facility] Chief Complaint/Reason for Call: Patient stated that they are not able to afford the empagliflozin (Jardiance) 10 MG that was sent to the pharmacy and would like to have a prescription for a different medication sent to the pharmacy. Patient stated to please let them know on MyChart when a new prescription has been sent to the pharmacy and what medication it is. Please advise. Thank you. Best time of day caller can be reached: Any Patient advised that office/PCP has 24-48 business hours to return their call: No [facility] 03-30-2025 Evaluation + Plan note Associated Problem(s): Pure hypercholesterolemia Continue rosuvastatin. Will plan to check lipid panel next visit [facility] 03-30-2025 Miscellaneous Notes Associated Problem(s): Pure hypercholesterolemia Continue rosuvastatin. Will plan to check lipid panel next visit Associated Problem(s): Presence of coronary angioplasty implant and graft Managed by cardiology. Continue aspirin 81 mg daily and Plavix 75 mg daily Associated Problem(s): Hypertension Controlled. Blood pressure 106/64, continue carvedilol 25 mg twice daily, Lasix 40 mg Associated Problem(s): Hypersomnia Stop bang 5-high risk for EVE, refer to [place] [facility] Associated Problem(s): Snoring Stop bang 5-high risk for EVE, refer to [facility] Associated Problem(s): Type 2 diabetes mellitus without complication, without long-term current use of insulin (HCC) Uncontrolled, continue metformin 1000 mg twice daily, start Jardiance 10 mg daily. Close follow-up in about 1 month documented in this encounter [facility] 03-30-2025 Evaluation + Plan note Associated Problem(s): Presence of coronary angioplasty implant and graft Managed by cardiology. Continue aspirin 81 mg daily and Plavix 75 mg daily [facility] 03-30-2025 Evaluation + Plan note Associated Problem(s): Hypertension Controlled. Blood pressure 106/64, continue carvedilol 25 mg twice daily, Lasix 40 mg [facility] 03-30-2025 Evaluation + Plan note Associated Problem(s): Hypersomnia Stop bang 5-high risk for EVE, refer to [facility] 03-30-2025 Evaluation + Plan note Associated Problem(s): Snoring Stop bang 5-high risk for EVE, refer to [place] [facility] 03-30-2025 Evaluation + Plan note Associated Problem(s): Type 2 diabetes mellitus without complication, without long-term current use of insulin (HCC) Uncontrolled, continue metformin 1000 mg twice daily, start Jardiance 10 mg daily. Close follow-up in about 1 month [facility] 03-30-2025 History of Present illness Narrative Patient was identified by name and Date of . Health Maintenance Due Topic Bone Density Scan- DTaP/Tdap/Td Vaccines- RSV Immunization- Zoster Vaccines- Diabetes: Retinopathy Screening- Medicare Advantage Annual Wellness Visit- Diabetes: Urine Albumin-Creatinine Ratio for Kidney Health- COVID-19 Vaccine- Lung Cancer Screening- Diabetes: Foot Exam- Images from the original note were not included. 03/30/2025 Yodit Landin (: 1955) is a 69 y.o. female , Established patient, here for evaluation of the following chief complaint(s): Medication Check and Sleep Study ASSESSMENT/PLAN: 1. Type 2 diabetes mellitus without complication, without long-term current use of insulin (HCC) Assessment & Plan: Uncontrolled, continue metformin 1000 mg twice daily, start Jardiance 10 mg daily. Close follow-up in about 1 month Orders: - empagliflozin (Jardiance) 10 MG; Take 1 tablet (10 mg) by mouth daily., Starting Fri03/30/2025, Normal 2. Hypersomnia Assessment & Plan: Stop bang 5-high risk for EVE, refer to [place] [facility] Orders: - External referral to Sleep Medicine 3. Pure hypercholesterolemia Assessment & Plan: Continue rosuvastatin. Will plan to check lipid panel next visit 4. Primary hypertension Assessment & Plan: Controlled. Blood pressure 106/64, continue carvedilol 25 mg twice daily, Lasix 40 mg Orders: - carvedilol (Coreg) 25 MG tablet; Take 1 tablet (25 mg) by mouth 2 times daily (with meals)., Starting Fri03/30/2025, No Print 5. Snoring Assessment & Plan: Stop bang 5-high risk for EVE, refer to [place] [facility] Orders: - External referral to Sleep Medicine 6. Presence of coronary angioplasty implant and graft Assessment & Plan: Managed by cardiology. Continue aspirin 81 mg daily and Plavix 75 mg daily Follow up for with primary care provider as scheduled. SUBJECTIVE/OBJECTIVE: HPI - Yodit Landin (: 1955) is a 69 y.o. female , Established patient, here for the evaluation of the following chief complaint(s): Medication Check and Sleep Study Patient presents for med check and also to see if she can get a sleep study done. She would like it done at [facility]. She was told by her day guard that she likely needs a sleep apnea test. She is status post GA several months ago. She is established with cardiology and denies any chest pain or shortness of breath. She has had some medication changes recently mainly her Coreg was increased to 25 mg twice daily. It was also recommended that she possibly be put on Farxiga or Jardiance for cardioprotective factors and due to her diabetes. She states she would like to try 1 of those. She is currently only on metformin for her diabetes. She brings her home readings and her fasting at home is between 112 and 154. Denies any other acute complaints or concerns today. She is doing well on her cholesterol medicine and we will plan on checking the cholesterol levels at the next visit. Reports she does have daytime fatigue, has been reported that she snores at night. Her STOP-BANG score is 5 Current Medications[1] Review of Systems Constitutional: Positive for fatigue. Negative for activity change, appetite change and unexpected weight change. HENT: Negative. Respiratory: Negative. Cardiovascular: Negative. Gastrointestinal: Negative. Genitourinary: Negative for difficulty urinating. Neurological: Negative for dizziness and light-headedness. Vitals: 03/30/25 1128 BP: 106/64 Pulse: 75 Resp: 24 Temp: 36.8 C (98.2 F) TempSrc: Infrared SpO2: 93% Weight: 206 lb 3.2 oz (93.5 kg) Physical Exam Vitals reviewed. Constitutional: General: She is not in acute distress. Appearance: Normal appearance. She is not ill-appearing. HENT: Head: Normocephalic and atraumatic. Mouth/Throat: Mouth: Mucous membranes are moist. Pharynx: Oropharynx is clear. No posterior oropharyngeal erythema. Eyes: Conjunctiva/sclera: Conjunctivae normal. Cardiovascular: Rate and Rhythm: Normal rate and regular rhythm. Pulses: Normal pulses. Heart sounds: Normal heart sounds. Pulmonary: Effort: Pulmonary effort is normal. Breath sounds: Normal breath sounds. Musculoskeletal: Right lower leg: No edema. Left lower leg: No edema. Comments: Able to get on and off exam table without difficulty Lymphadenopathy: Cervical: No cervical adenopathy. Neurological: Mental Status: She is alert and oriented to person, place, and time. Psychiatric: Mood and Affect: Mood normal. Behavior: Behavior normal. Thought Content: Thought content normal. An electronic signature was used to authenticate this note. ASAF Otoole CNP 03/30/2025 2:53 PM [1] Current Outpatient Medications Medication Sig Dispense Refill acetaminophen (Tylenol) 500 MG tablet Take 500 mg by mouth in the morning and 500 mg in the evening. ASPIRIN 81 PO Take 81 mg by mouth daily. Cholecalciferol (D3-50 PO) Take 50 mg by mouth daily. clopidogrel (Plavix) 75 MG tablet Take 1 tablet (75 mg) by mouth daily. 90 tablet 1 DIGESTIVE ENZYMES PO Take 175 mg by mouth in the morning and 175 mg at noon and 175 mg in the evening. Ferrous Sulfate (IRON PO) Take 65 mg by mouth daily. furosemide (Lasix) 40 MG tablet Take 40 mg by mouth daily. levothyroxine (Synthroid, Levoxyl) 150 MCG tablet TAKE 1 TABLET BY MOUTH EVERY MORNING BEFORE BREAKFAST 100 tablet 2 metFORMIN (Glucophage) 1000 MG tablet TAKE 1 TABLET BY MOUTH IN THE MORNING AND 1 TABLET BY MOUTH IN THE EVENING TAKE WITH MEALS 200 tablet 1 nystatin (Mycostatin) cream APPLY TOPICALLY TO AFFECTED AREA(S) TWICE DAILY 120 g 2 omega-3 (Fish Oil) 1200 MG capsule Take 1,200 mg by mouth daily. omeprazole (PriLOSEC) [address] capsule TAKE 1 CAPSULE BY MOUTH IN THE MORNING BEFORE BREAKFAST 100 capsule 2 rosuvastatin (Crestor) 20 MG tablet TAKE 1 TABLET BY MOUTH DAILY 30 tablet 11 Vitamin E 450 MG (1000 UT) capsule Take 450 mg by mouth daily. carvedilol (Coreg) 25 MG tablet Take 1 tablet (25 mg) by mouth 2 times daily (with meals). empagliflozin (Jardiance) 10 MG Take 1 tablet (10 mg) by mouth daily. 30 tablet 2 ipratropium (Atrovent) 0.06 % nasal spray Administer 2 sprays into each nostril 3 times daily for 7 days. 15 mL 0 NON FORMULARY Gurmur 134 mg 2 tablets daily po NON FORMULARY Cardio 450 mg daily po for heart health NON FORMULARY 4Life Classic 600 mg 3 tablets daily po NON FORMULARY (Patient taking differently: Transfer factor Super detox pbgs) No current facility-administered medications for this visit. documented in this encounter [facility] 03-30-2025 Instructions ASAF Ramos CNP - 03/30/2025 11:40 AM EST Fasting labs at next visit. documented in this encounter [facility] 03-18-2025 Telephone encounter Note We will wait until we hear what she hears from cardiology [facility] 03-18-2025 Miscellaneous Notes We will wait until we hear what she hears from cardiology Name of caller: Yodit Contact phone number: [phone] Relationship to Patient: Self Provider: Colin Practice: [facility] Chief Complaint/Reason for Call: Pt called to have medication adjusted and sent to [facility] as she was instucted from at [facility]iology is [facility] . Pt was having issues with [facility] as she may be confused on the dosage needed In charge shows carvedilol at 12.5 mg twice a day. To equal 25mg a day she claims that she was to take 25mg twice a day and has been adjusting 3.125mg tablets to take 25 mg twice a day . She is going to call cardiology back to find out which she should be taking please advise Best time of day caller can be reached: any Patient advised that office/PCP has 24-48 business hours to return their call: No Yodit dropped off forms to the office from her hospitalization at [facility]. One of the forms showed a new dose of her carvedilol at 12.5 mg twice a day. Medication list updated to reflect new dose of medication. She also dropped off forms from [facility] stating she was found to be at increased risk for obstructive sleep apnea. Can order her a home sleep study for further evaluation if she would like. documented in this encounter [facility] 03-18-2025 Telephone encounter Note Name of caller: Yodit Contact phone number: [phone] Relationship to Patient: Self Provider: Colin Practice: [facility] Chief Complaint/Reason for Call: Pt called to have medication adjusted and sent to [facility] as she was instucted from at [facility] [place] to increase . Pt was having issues with [facility] as she may be confused on the dosage needed In charge shows carvedilol at 12.5 mg twice a day. To equal 25mg a day she claims that she was to take 25mg twice a day and has been adjusting 3.125mg tablets to take 25 mg twice a day . She is going to call cardiology back to find out which she should be taking please advise Best time of day caller can be reached: any Patient advised that office/PCP has 24-48 business hours to return their call: No [facility] 03-14-2025 Progress note [facility] 02-25-2025 Telephone encounter Note Form atting of this note might be different from the original. Name of caller: Yodit Contact phone number: [phone] Relationship to Patient: patient Provider: Sedrick ALMEIDA Practice: [facility] Chief Complaint/Reason for Call: Patient was returning a call from Allison, stated she already read her mammogram results. Best time of day caller can be reached: any Patient advised that office/PCP has 24-48 business hours to return their call: No [facility] 02-25-2025 Miscellaneous Notes Formattin g of this note might be different from the original. Name of caller: Yodit Contact phone number: [phone] Relationship to Patient: patient Provider: Sedrick ALMEIDA Practice: [facility] Chief Complaint/Reason for Call: Patient was returning a call from Allison, stated she already read her mammogram results. Best time of day caller can be reached: any Patient advised that office/PCP has 24-48 business hours to return their call: No documented in this encounter [facility] 02-22-2025 Progress note [facility] 02-17-2025 Telephone encount er Note Will discuss at 03/30/25 appt with Maria Luisa [facility] 02-17-2025 Miscellaneous Notes Formattin g of this note might be different from the original. Will discuss at 03/30/25 appt with Maria Luisa Called [facility] phone number and was transferred to the sleep department. Was provided diagnoses that would support doing the sleep study and none were applicable to Yodit based off of the questionnaire she did. If Yodit would like to attempt another approach to getting this covered I would recommend getting her scheduled for an office visit for further documentation. The only number I know it the [facility] hospital number [phone] Attempted to call phone number provided ([phone]) and gotten an automated response stating that I have reached a nonworking number at [facility]. Is there another number that they can provide? Name of caller: Clarisa Contact phone number: [phone] Relationship to Patient: [facility] Provider: Jessica Smith Practice: [facility] Chief Complaint/Reason for Call: Caller stated the Dx codes for the Sleep Study order are not covered, can please call and provide verbal DX codes? Please advise. Best time of day caller can be reached: Any Patient advised that office/PCP has 24-48 business hours to return their call: No Faxed to [facility]. They will contact patient to schedule. Narcisa pt wants to only deal with [place] - are you able to help with this? Test Name: HST 1st attempt- called fabián pt, does not want to go to any other location but [place]- I tried to explain we only do for HST and in lab at , [facility] and [facility], pt declined and wants [facility] - sent TE -CT 02/15/25 documented in this encounter [facility] 02-16-2025 Telephone encount er Note Called [facility] phone number and was transferred to the sleep department. Was provided diagnoses that would support doing the sleep study and none were applicable to Yodit based off of the questionnaire she did. If Yodit would like to attempt another approach to getting this covered I would recommend getting her scheduled for an office visit for further documentation. [facility] 02-16-2025 Miscellaneous Notes Formattin g of this note might be different from the original. Called [facility] phone number and was transferred to the sleep department. Was provided diagnoses that would support doing the sleep study and none were applicable to Yodit based off of the questionnaire she did. If Yodit would like to attempt another approach to getting this covered I would recommend getting her scheduled for an office visit for further documentation. The only number I know it [facility] number [phone] Attempted to call phone number provided ([phone]) and gotten an automated response stating that I have reached a nonworking number at [facility]. Is there another number that they can provide? Name of caller: Clarisa Contact phone number: [phone] Relationship to Patient: [facility] Provider: Jessica Smith Practice: [facility] Chief Complaint/Reason for Call: Caller stated the Dx codes for the Sleep Study order are not covered, can please call and provide verbal DX codes? Please advise. Best time of day caller can be reached: Any Patient advised that office/PCP has 24-48 business hours to return their call: No Faxed to [facility]. They will contact patient to schedule. Narcisa antonio wants to only deal with [place] - are you able to help with this? Test Name: HST 1st attempt- called [facility] pt, does not want to go to any other location but [place]- I tried to explain we only do for HST and in lab at , [facility] and [facility], pt declined and wants [place] - sent TE -CT 02/15/25 documented in this encounter [facility] 02-16-2025 Telephone encount er Note The only number I know it the main hospital number [phone] [facility] 02-16-2025 Telephone encount er Note Attempted to call phone number provided ([phone]) and gotten an automated response stating that I have reached a nonworking number at [facility]. Is there another number that they can provide? [facility] 02-16-2025 Telephone encount er Note Name of caller: Clarisa Contact phone number: [phone] Relationship to Patient: [facility] Provider: Jessica Smith Practice: [facility] Chief Complaint/Reason for Call: Caller stated the Dx codes for the Sleep Study order are not covered, can please call and provide verbal DX codes? Please advise. Best time of day caller can be reached: Any Patient advised that office/PCP has 24-48 business hours to return their call: No [facility] 02-15-2025 Telephone encount er Note Faxed to [facility]. They will contact patient to schedule. [facility] 02-15-2025 Telephone encount er Note Narcisa pt wants to only deal with [facility] - are you able to help with this? [facility] 02-15-2025 Telephone encount er Note Test Name: HST 1st attempt- called [facility] pt, does not want to go to any other location but [place]- I tried to explain we only do WP for HST and in lab at , [facility] and [facility], pt declined and wants [facility] - sent TE -CT 02/15/25 [facility] 02-14-2025 Telephone encount er Note A stop-bang from [facility] is scanned in the chart on 02/07/25 and is the 2nd page Let me know if you need anything else [facility] 02-14-2025 Miscellaneous Notes Formattin g of this note might be different from the original. A stop-bang from [facility] is scanned in the chart on 02/07/25 and is the 2nd page Let me know if you need anything else Please send form from [facility] that is scanned under the media section on 02/07/25. Will see if this is sufficient for what they need. If not, will need an office visit for further documentation. Jose Alfredo, We received an order for this patient to be scheduled for a sleep study. Per our lab we are required to have H&P notes with documentation of need for a sleep study. Below are examples accepted by the lab: STOP BANG Score EP Zavala Sleep Scale Waking up with morning headaches witness sleep apnea by a spouse waking up gasping or choking for air sleeping 8 hours and not waking up feeling well rested , Talking about fatigue/not feeling refreshed after sleeping through the night (fatigue must be somehow related to sleep/sleeplessness, like they don't sleep well or something like that, just general fatigue doesn't count because it could be contributed to anything snoring ( snoring must be accompanied by another issue as well ) COPD/ Severe Asthma with possible Apnea/ decreased air movement/ Example: COPD/ snoring has increased Having a hard time falling and/or staying asleep attributable to Afib (Usually orders from [facility]) documented in this encounter [facility] 02-14-2025 Telephone encount er Note Please send form from [facility] that is scanned under the media section on 02/07/25. Will see if this is sufficient for what they need. If not, will need an office visit for further documentation. [facility] 02-14-2025 Telephone encount er Note Helleticia, We received an order for this patient to be scheduled for a sleep study. Per our lab we are required to have H&P notes with documentation of need for a sleep study. Below are examples accepted by the lab: STOP BANG Score EP Zavala Sleep Scale Waking up with morning headaches witness sleep apnea by a spouse waking up gasping or choking for air sleeping 8 hours and not waking up feeling well rested , Talking about fatigue/not feeling refreshed after sleeping through the night (fatigue must be somehow related to sleep/sleeplessness, like they don't sleep well or something like that, just general fatigue doesn't count because it could be contributed to anything snoring ( snoring must be accompanied by another issue as well ) COPD/ Severe Asthma with possible Apnea/ decreased air movement/ Example: COPD/ snoring has increased Having a hard time falling and/or staying asleep attributable to Afib (Usually orders from [facility]) [facility] 02-04-2025 Telephone encount er Note Yodit dropped off forms to the office from her hospitalization at [facility]. One of the forms showed a new dose of her carvedilol at 12.5 mg twice a day. Medication list updated to reflect new dose of medication. She also dropped off forms from [facility] stating she was found to be at increased risk for obstructive sleep apnea. Can order her a home sleep study for further evaluation if she would like. [facility] 02-04-2025 Miscellaneous Notes Formattin g of this note might be different from the original. Yodit dropped off forms to the office from her hospitalization at [facility]. One of the forms showed a new dose of her carvedilol at 12.5 mg twice a day. Medication list updated to reflect new dose of medication. She also dropped off forms from [facility] stating she was found to be at increased risk for obstructive sleep apnea. Can order her a home sleep study for further evaluation if she would like. documented in this encounter [facility] 01-26-2025 Telephone encount er Note Prescription Request: : Rosuvastatin Calcium 20 MG Oral Tablet Last medication check: Last physical exam: 05/04/24 Next scheduled appointment: 03/30/25 Last date of refill on this medication 01/04/25 ( qty 30 refill 0) [facility] 01-26-2025 Miscellaneous Notes Formattin g of this note might be different from the original. Prescription Request: : Rosuvastatin Calcium 20 MG Oral Tablet Last medication check: Last physical exam: 05/04/24 Next scheduled appointment: 03/30/25 Last date of refill on this medication 01/04/25 ( qty 30 refill 0) documented in this encounter [facility] 01-04-2025 Telephone encount er Note Reviewed chart. Refill appropriate. RX sent. [facility] 01-04-2025 Miscellaneous Notes Formattin g of this note might be different from the original. Reviewed chart. Refill appropriate. RX sent. Prescription Request: rosuvastatin (Crestor) 20 MG Last medication check: 12/28/24 Last physical exam: 05/04/24 Next scheduled appointment: 03/30/25 Last date of refill on this medication 12/28/24 (qty 30 refill 0) documented in this encounter [facility] 01-04-2025 Telephone encount er Note Prescription Request: rosuvastatin (Crestor) 20 MG Last medication check: 12/28/24 Last physical exam: 05/04/24 Next scheduled appointment: 03/30/25 Last date of refill on this medication 12/28/24 (qty 30 refill 0) [facility] 12-31-2024 Telephone encount er Note Reviewed chart. Refill appropriate. RX sent. [facility] 12-31-2024 Telephone encount er Note Reviewed chart. Refill not appropriate, too soon. RX refused [facility] 12-31-2024 Miscellaneous Notes Formattin g of this note might be different from the original. Reviewed chart. Refill not appropriate, too soon. RX refused Sent 12/27/24 15ml no refill - please refuse documented in this encounter [facility] 12-31-2024 Miscellaneous Notes Formattin g of this note might be different from the original. Reviewed chart. Refill appropriate. RX sent. Prescription Request: Last medication check: 12/28/24 Last physical exam: 05/04/24 Next scheduled appointment: 03/30/25 Last date of refill on this medication 06/10/24 120g 2 refills documented in this encounter [facility] 12-31-2024 Telephone encount er Note Sent 12/27/24 15ml no refill - please refuse [facility] 12-31-2024 Telephone encount er Note Prescription Request: Last medication check: 12/28/24 Last physical exam: 05/04/24 Next scheduled appointment: 03/30/25 Last date of refill on this medication 06/10/24 120g 2 refills [facility] 12-28-2024 Evaluation + Plan note Associ ated Problem(s): Bradycardia Sinus bradycardia on EKG, stable [facility] 12-28-2024 Miscellaneous Notes Associate d Problem(s): Bradycardia Sinus bradycardia on EKG, stable Associated Problem(s): Pure hypercholesterolemia In July cholesterol was good on rosuvastatin 10 mg however they did change her to a atorvastatin 20 mg when she was in the hospital but she had a reaction to that so we will going to put her back on rosuvastatin but increase it to 20 mg. Will recheck her cholesterol in 1 month. Associated Problem(s): Type 2 diabetes mellitus without complication, without long-term current use of insulin (HCC) Controlled, continue metformin 1000 mg twice a day will look into SGLT2 inhibitor for its cardiac protective properties. Associated Problem(s): Non-ST elevation myocardial infarction (NSTEMI) (HCC) Currently stable had stents placed she was told there are still some areas that will need to be managed by medication. Currently she denies any chest pain Associated Problem(s): Hypertension Blood pressure was initially elevated, recheck was still high, continue carvedilol 3.125 twice a day. She was taken off of her losartan but she may need to restart that. documented in this encounter [facility] 12-28-2024 Evaluation + Plan note Associ ated Problem(s): Pure hypercholesterolemia In July cholesterol was good on rosuvastatin 10 mg however they did change her to a atorvastatin 20 mg when she was in the hospital but she had a reaction to that so we will going to put her back on rosuvastatin but increase it to 20 mg. Will recheck her cholesterol in 1 month. T [facility] 12-28-2024 Evaluation + Plan note Associ ated Problem(s): Type 2 diabetes mellitus without complication, without long-term current use of insulin (HCC) Controlled, continue metformin 1000 mg twice a day will look into SGLT2 inhibitor for its cardiac protective properties. T [facility] 12-28-2024 Evaluation + Plan note Associ ated Problem(s): Non-ST elevation myocardial infarction (NSTEMI) (HCC) Currently stable had stents placed she was told there are still some areas that will need to be managed by medication. Currently she denies any chest pain [facility] 12-28-2024 Evaluation + Plan note Associ ated Problem(s): Hypertension Blood pressure was initially elevated, recheck was still high, continue carvedilol 3.125 twice a day. She was taken off of her losartan but she may need to restart that. T [facility] 12-28-2024 History of Presen t illness Narrative Patient verified by last name and date of . Images from the original note were not included. 12/28/2024 Yodit Landin (: 1955) is a 69 y.o. female , Established patient, here for evaluation of the following chief complaint(s): Hospital Follow-up ([facility] 12/05-12/07/24/) and Medication Problem (Pt concerned she is not on any cholesterol medication) ASSESSMENT/PLAN: 1. Non-ST elevation myocardial infarction (NSTEMI) (HCC) Assessment & Plan: Currently stable had stents placed she was told there are still some areas that will need to be managed by medication. Currently she denies any chest pain 2. Pure hypercholesterolemia Assessment & Plan: In July cholesterol was good on rosuvastatin 10 mg however they did change her to a atorvastatin 20 mg when she was in the hospital but she had a reaction to that so we will going to put her back on rosuvastatin but increase it to 20 mg. Will recheck her cholesterol in 1 month. Orders: - rosuvastatin (Crestor) 20 MG tablet; Take 1 tablet (20 mg) by mouth daily., Starting Fri12/28/2024, Normal 3. Primary hypertension Assessment & Plan: Blood pressure was initially elevated, recheck was still high, continue carvedilol 3.125 twice a day. She was taken off of her losartan but she may need to restart that. 4. Type 2 diabetes mellitus without complication, without long-term current use of insulin ([facility]) Assessment & Plan: Controlled, continue metformin 1000 mg twice a day will look into SGLT2 inhibitor for its cardiac protective properties. 5. Bradycardia Assessment & Plan: Sinus bradycardia on EKG, stable Orders: - ECG 12 lead Follow up in about 3 months (around 03/30/2025). SUBJECTIVE/OBJECTIVE: JAIME Argueta comes in today 3 weeks after she was released from the hospital for a GA, she had stents placed and she has followed up with cardiology already. They did make some significant changes in her medications and those have been recorded in her medical record. They did start her on a atorvastatin and she had a reaction from it so we will put her back on rosuvastatin. She currently denies any complaints at this time, see ROS. Blood pressure is slightly elevated today we will recheck that prior to discharge. Her day guard also mentioned to her about using an SGLT 2 inhibitor so we will look into that and started if appropriate. Review of Systems Constitutional: Negative for chills and fever. Respiratory: Negative for shortness of breath. Cardiovascular: Negative for chest pain and palpitations. Gastrointestinal: Negative for abdominal pain, blood in stool, constipation and diarrhea. Genitourinary: Negative for dysuria, frequency, hematuria and urgency. Neurological: Negative for weakness and numbness. Psychiatric/Behavioral: Negative for dysphoric mood. The patient is not nervous/anxious. Vitals: 12/28/24 0954 12/28/24 1119 BP: (!) 143/73 (!) 143/76 Pulse: (!) 45 (!) 45 SpO2: 96% Weight: 207 lb (93.9 kg) Height: 5' 3.5 (1.613 m) Physical Exam Vitals and nursing note reviewed. Constitutional: General: She is not in acute distress. Appearance: Normal appearance. HENT: Head: Normocephalic and atraumatic. Mouth/Throat: Mouth: Mucous membranes are moist. Pharynx: Oropharynx is clear. Eyes: Extraocular Movements: Extraocular movements intact. Pupils: Pupils are equal, round, and reactive to light. Neck: Thyroid: No thyromegaly. Vascular: No carotid bruit. Cardiovascular: Rate and Rhythm: Bradycardia present. Rhythm irregularly irregular. Heart sounds: Normal heart sounds. No murmur heard. Pulmonary: Effort: Pulmonary effort is normal. Breath sounds: Normal breath sounds. Musculoskeletal: Cervical back: Neck supple. Lymphadenopathy: Cervical: No cervical adenopathy. Neurological: Mental Status: She is alert. An electronic signature was used to authenticate this note. Moshe Key MD 12/28/2024 11:43 AM documented in this encounter [facility] 12-20-2024 Telephone encount er Note ERROR [facility] 12-20-2024 Miscellaneous Notes Formattin g of this note might be different from the original. ERROR documented in this encounter [facility] 12-07-2024 Discharge summary Note Date/Time December 07, 2024 11:17am [facility] Medical Records Department [address] [place] [address] Discharge Summary 12/07/24 1107 MR#: [id number] Acct: [id number] Name: YODIT LANDIN Rep #:[id number] : 1955 69 From: Basim Cheema DO PCP: Dr. Moshe Key MD Status:ADM IN Location: [place] [address] Providers Date of Admission: 12/05/24 Primary Care Physician: Dr. Moshe Key MD Consultations 12/05/24 19:30 Consult: Cardiology Routine Consulting Provider: Kan Bernabe Reason for Consult: Chest Pain, NSTEMI EMERGENT Consult: No MD Notified: Yes Date Notified: 12/05/24 Time Notified: 16:57 Method of Notification: ED Physician Initiated Reason For Visit: CHEST PAIN, NSTEMI Diagnosis Discharge Diagnosis (1) Non-ST elevation GA (NSTEMI): Status: Acute Code(s): I21.4 - Non-ST elevation (NSTEMI) myocardial infarction Plan Acute NSTEMI: * troponins up to 806. * Cardiology consult. Check echo * s/p RONALD to mid RCA. Will need staged PCI for OM. Chronic Kidney Disease Stage III: LAURA ruled out. Chronic normocytic anemia: Admission hemoglobin 11.1, MCV 95.4 however significantly dehydrated, baseline hemoglobin noted previously primarily more recently - but labs distant and last noted 03/30/2024 hemoglobin 9.6 at that time, will continue to trend. Hypertension: Given presentation with orthostasis, acute kidney injury and low blood pressure holding all hypertensive regimen, add back once clinically appropriate. Hyperlipidemia: Continue home statin and fenofibrate regimen. AM FLP. Diabetes mellitus type II: Hold oral home regimen, ADA diet until n.p.o. status,HgbA1c requested given #1 presentation, accu checks w/ ISS. Obesity: Weight loss and lifestyle changes encouraged. Former tobacco use: Encourage continued tobacco cessation. GERD: Will maintain on PPI. Hypothyroidism: Will continue patient on levothyroxine regimen. DVT prophylaxis: Heparin drip to be continued. Medications at Discharge Home Medications levothyroxine 75 mcg capsule 150 mcg PO DAILY 01/16/24 metformin 1,000 mg tablet 1,000 mg PO .QAM 01/16/24 Held on 12/07/24. Instructions: Resume on 12/12/24. omega 8-yry-dun-fish oil 1,200 mg (144 mg-216 mg) capsule (Fish Oil) 1 cap PO DAILY 01/16/24 omeprazole 40 mg capsule,delayed release 40 mg PO QDAY 01/16/24 vitamin E (dl, acetate) 180 mg (400 unit) capsule 180 mg PO DAILY 01/16/24 digestive enzymes 1 tab PO TID 03/15/24 ergocalciferol (vitamin D2) 1,250 mcg (50,000 unit) capsule (Vitamin D2) 1,250 mcg PO QWEEK 03/15/24 metformin 500 mg tablet 500 mg PO .1500, 2100 03/15/24 Held on 12/07/24. Instructions: Resume on 12/12/24. vit A 750 mcg-vit C 150 mg-D3 31.25 smx-ntju-cvuuagmzh-quercet capsule (Immune Essentials Daily) 1 cap PO TID 03/15/24 acetaminophen 500 mg tablet 500 mg PO Q6H #30 tabs 03/30/24 fenofibrate 160 mg tablet 160 mg PO QDAY 07/02/24 aspirin 81 mg tablet,delayed release 81 mg PO BREAKFAST #0 tabs 12/07/24 atorvastatin 20 mg tablet 20 mg PO QHS #30 tabs 12/07/24 carvedilol 3.125 mg tablet 3.125 mg PO BID #60 tabs 12/07/24 clopidogrel 75 mg tablet 75 mg PO DAILY #30 tabs 12/07/24 Hospital Course Operations None Procedures 2-D Echocardiogram and Cardiac catheterization Summary of Care Provided Minutes Spent on Discharge: 32 Hospital Course: Patient presents with chest pain. Troponins went up to 8 of 6. Patient underwent left heart catheterization on the that patient had a drug-elutingstent to the mid RCA. Patient also noted to have a lesion in obtuse marginal. Patient is overall feeling well and will be discharged home. She can follow-up with cardiology as outpatient. Weight / BMI Weight Weight: 96.9 kg Body Mass Index (BMI) 36.6 ABG / Lab / Microbiology Data 12/07/24 05:57 12/07/24 05:57 Laboratory: Laboratory Results - last 24 hr 12/06/24 12:28: POC Glucose 120 H 12/06/24 17:59: POC Glucose 170 H 12/06/24 21:16: POC Glucose 147 H 12/07/24 05:57: WBC 6.1, RBC 3.31 L, Hgb 10.6 L, Hct 31.7 L, MCV 95.8, MCH 32.0,MCHC 33.4, RDW Std Deviation 48.0 H, RDW Coeff of Christina 13.6, Plt Count 136 L, MPV9.8, Sodium 136, Potassium 4.4, Chloride 101, Carbon Dioxide 24.2, Anion Gap 11,BUN 19, Creatinine 1.43 H, Estim Creat Clear Calc 41.37 L, Est GFR (MDRD) Non-Af39 L, BUN/Creatinine Ratio 13.6, Glucose 140 H, Calcium 8.8, Total Bilirubin 0.39, AST 66 H, ALT 23, Alkaline Phosphatase 30 L, Total Protein 6.8, Albumin 4.0, Globulin 2.8, Albumin/Globulin Ratio 1.4 12/07/24 06:31: POC Glucose 143 H Radiography Diagnostic Testing: Radiology Impression Echocardiogram 12/05/24 19:30 Interpretation Summary Normal LV size. Left ventricular systolic function is normal. Stage 1 diastolic dysfunction. The estimated ejection fraction is 54 %. Pulmonary artery systolic pressure is 25 mmHg. Ordering Physician: Calista Weeks Performed By: Patience Valenzuela RDCS D/C Instructions Discharge Activity: Return to Normal Activity DC O2, CPAP, BIPAP Needs Home O2 Discharge instructions: No Meaningful Use Info Meaningful Use Meaningful Use Diagnoses (Choose all that apply): AMI AMI/Post PCI/Angioplasty Aspirin given w/in 24hrs of arrival?: Yes ASA at discharge?: Yes Antiplatelet Therapy at Discharge:: Yes Statins at discharge?: Yes Drake/ARB at discharge?: No Reason Drake/ARB not ordered:: Worsening renal disease Beta Sherly at discharge?: Yes Done w/ Acute GA measure.: Yes Documented LVEF (%): 54 Discharge Plan Admission Admit Date/Time: 12/05/24 16:55 Primary Reason for Your Visit: myocardial infarction. Attending Provider: Basim Cheema Primary Care Provider: Moshe Key Consulting Providers: Kan Bernabe; Calista Weeks Discharge Orders/Prescriptions Prescriptions: New aspirin 81 mg Tablet,Delayed Release (Dr/Ec) 81 mg PO BREAKFAST Qty: 0 0RF atorvastatin 20 mg Tablet 20 mg PO QHS Qty: 30 0RF clopidogrel 75 mg Tablet 75 mg PO DAILY Qty: 30 0RF carvedilol 3.125 mg Tablet 3.125 mg PO BID Qty: 60 0RF Continued levothyroxine 75 mcg capsule 150 mcg PO DAILY omeprazole 40 mg capsule,delayed release(DR/EC) 40 mg PO QDAY vitamin E (dl, acetate) 180 mg (400 unit) capsule 180 mg PO DAILY omega 8-njw-cdi-fish oil [Fish Oil] 1,200 (144-216) mg capsule 1 cap PO DAILY fenofibrate 160 mg tablet 160 mg PO QDAY digestive enzymes Tablet 1 tab PO TID Immune Essentials Daily 750 mcg-150 mg- 31.25 mcg capsule 1 cap PO TID ergocalciferol (vitamin D2) [Vitamin D2] 1,250 mcg (50,000 unit) capsule 1,250 mcg PO QWEEK acetaminophen 500 mg Tablet 500 mg PO Q6H Qty: 30 0RF Held metformin 1,000 mg tablet 1,000 mg PO .QAM Hold Instructions: Resume on 12/12/24. metformin 500 mg tablet 500 mg PO .1500, 2100 Hold Instructions: Resume on 12/12/24. Discontinued irbesartan 300 mg tablet 300 mg PO DAILY chlorthalidone 25 mg tablet 25 mg PO DAILY furosemide 20 mg tablet 20 mg PO DAILY rosuvastatin 10 mg tablet 10 mg PO QHS Referrals / Follow Up: [facility] [Provider Group] - Within 1 Month Moshe Key MD [Primary Care Provider] - Sedrick Hemphill NP-C [Non-Staff] - Within 2 Weeks Disposition Disposition (needs filled in before D/C Order can be placed): Home, Self Care Charges/Coding Visit Charges Inpatient E&M: 54519 Disch Hosp >30min 12/07/24 1117 <Electronically signed by Basim Cheema DO> Cosigner Signature (if applicable): CC: DENISE Hemphill; Dr. Moshe Key MD; Dr. Basim Cheema DO~ Signed [facility] Work Phone: [phone] 543-890407-15-2025 Progress note Author Basim Cheema [facility] Note Date/Time December 07, 2024 11:0 6am [facility] Medical Records Department [address] [place] [address] Progress Note - Hospitalist 12/07/24 0841 MR#: [id number] Acct: [id number] Name: YODIT LANDIN Rep #:[id number] : 1955 69 From: Basim Cheema DO PCP: Dr. Moshe Key MD Status:ADM IN Location: [place] [address] Reason for Visit Chief Complaint: Chest pain Subjective Subjective Feeling not her self. Denies chest pain, shortness of breath. Objective Data Objective Data Vital Signs: Vital Signs Temp Pulse Resp BP Pulse Ox O2 Del Method O2 Flow Rate 36.9 C 88 16 126/72 H 95 Room Air 2 12/07/24 08:29 12/07/24 08:29 12/07/24 08:29 12/07/24 08:29 12/07/24 08:29 12/07/24 08:29 12/06/24 12:49 Oxygen Flow Rate (L/min) 2 Oxygen Delivery Method Room Air Weight: 96.9 kg Body Mass Index (BMI) 36.6 Intake & Output: Intake and Output for Last 24 Hours 12/05/24 12/06/24 12/07/24 23:59 23:59 23:59 Intake Total 1562 / 1562 3236.50 / 3736.50 750 / 750 Balance 1562 / 1562 3236.50 / 3736.50 750 / 750 Lab / Micro Data 12/07/24 05:57 12/07/24 05:57 Labs: Laboratory Results - last 24 hr 12/06/24 12:28: POC Glucose 120 H 12/06/24 17:59: POC Glucose 170 H 12/06/24 21:16: POC Glucose 147 H 12/07/24 05:57: WBC 6.1, RBC 3.31 L, Hgb 10.6 L, Hct 31.7 L, MCV 95.8, MCH 32.0,MCHC 33.4, RDW Std Deviation 48.0 H, RDW Coeff of Christina 13.6, Plt Count 136 L, MPV9.8, Sodium 136, Potassium 4.4, Chloride 101, Carbon Dioxide 24.2, Anion Gap 11,BUN 19, Creatinine 1.43 H, Estim Creat Clear Calc 41.37 L, Est GFR (MDRD) Non-Af39 L, BUN/Creatinine Ratio 13.6, Glucose 140 H, Calcium 8.8, Total Bilirubin 0.39, AST 66 H, ALT 23, Alkaline Phosphatase 30 L, Total Protein 6.8, Albumin 4.0, Globulin 2.8, Albumin/Globulin Ratio 1.4 12/07/24 06:31: POC Glucose 143 H Radiography Diagnostic Testing: Radiology Impression Echocardiogram 12/05/24 19:30 Interpretation Summary Normal LV size. Left ventricular systolic function is normal. Stage 1 diastolic dysfunction. The estimated ejection fraction is 54 %. Pulmonary artery systolic pressure is 25 mmHg. Ordering Physician: Calista Weeks Performed By: Patience Valenzuela RDCS Rhythm Strip Rhythm Strip: Sinus Rhythm Rate: 60 Physical Exam Const alert and no apparent distress Cardio regular rate, regular rhythm, S1 normal heart sound and S2 normal heart sound GI normal to inspection, nondistended, normoactive bowel sounds, soft to palpation and non-tender Neuro Sensorium / Orientation: awake and alert Assessment & Plan Assessment/Plan (1) Non-ST elevation GA (NSTEMI): PLAN: Plan Acute NSTEMI: * troponins up to 806. * Cardiology consult. Check echo * s/p RONALD to mid RCA. Will need staged PCI for OM. Chronic Kidney Disease Stage III: LAURA ruled out. Chronic normocytic anemia: Admission hemoglobin 11.1, MCV 95.4 however significantly dehydrated, baseline hemoglobin noted previously primarily more recently 8-9 but labs distant and last noted 03/30/2024 hemoglobin 9.6 at that time, will continue to trend. Hypertension: Given presentation with orthostasis, acute kidney injury and low blood pressure holding all hypertensive regimen, add back once clinically appropriate. Hyperlipidemia: Continue home statin and fenofibrate regimen. AM FLP. Diabetes mellitus type II: Hold oral home regimen, ADA diet until n.p.o. status,HgbA1c requested given #1 presentation, accu checks w/ ISS. Obesity: Weight loss and lifestyle changes encouraged. Former tobacco use: Encourage continued tobacco cessation. GERD: Will maintain on PPI. Hypothyroidism: Will continue patient on levothyroxine regimen. DVT prophylaxis: Heparin drip to be continued. 12/07/24 1106 <Electronically signed by Basim Cheema DO> Cosigner Signature (if applicable): CC: ~ Signed [facility] Work Phone: [phone]) [phone] Discharge summary [facility] Medical Records Department [address] [place] [address] Discharge Summary 12/07/24 110 MR#: [id number] Acct: [id number] Name: YODIT LANDIN Rep #:[id number] : 1955 69 From: Basim Cheema DO PCP: Dr. Moshe Key MD Status:ADM IN Location: [place] [id number] Providers Date of Admission: 12/05/24 Primary Care Physician: Dr. Moshe Key MD Consultations 12/05/24 19:30 Consult: Cardiology Routine Consulting Provider: Kan Bernabe Reason for Consult: Chest Pain, NSTEMI EMERGENT Consult: No MD Notified: Yes Date Notified: 12/05/24 Time Notified: 16:57 Method of Notification: ED Physician Initiated Reason For Visit: CHEST PAIN, NSTEMI Diagnosis Discharge Diagnosis (1) Non-ST elevation GA (NSTEMI): Status: Acute Code(s): I21.4 - Non-ST elevation (NSTEMI) myocardial infarction Plan Acute NSTEMI: * troponins up to 806. * Cardiology consult. Check echo * s/p RONALD to mid RCA. Will need staged PCI for OM. Chronic Kidney Disease Stage III: LAURA ruled out. Chronic normocytic anemia: Admission hemoglobin 11.1, MCV 95.4 however significantly dehydrated, baseline hemoglobin noted previously primarily more recently 8-9 but labs distant and last noted 03/30/2024 hemoglobin 9.6 at that time, will continue to trend. Hypertension: Given presentation with orthostasis, acute kidney injury and low blood pressure holding all hypertensive regimen, add back once clinically appropriate. Hyperlipidemia: Continue home statin and fenofibrate regimen. AM FLP. Diabetes mellitus type II: Hold oral home regimen, ADA diet until n.p.o. status,HgbA1c requested given #1 presentation, accu checks w/ ISS. Obesity: Weight loss and lifestyle changes encouraged. Former tobacco use: Encourage continued tobacco cessation. GERD: Will maintain on PPI. Hypothyroidism: Will continue patient on levothyroxine regimen. DVT prophylaxis: Heparin drip to be continued. Medications at Discharge Home Medications levothyroxine 75 mcg capsule 150 mcg PO DAILY 01/16/24 metformin 1,000 mg tablet 1,000 mg PO .QAM 01/16/24 Held on 12/07/24. Instructions: Resume on 12/12/24. omega 5-xmy-vzy-fish oil 1,200 mg (144 mg-216 mg) capsule (Fish Oil) 1 cap PO DAILY 01/16/24 omeprazole 40 mg capsule,delayed release 40 mg PO QDAY 01/16/24 vitamin E (dl, acetate) 180 mg (400 unit) capsule 180 mg PO DAILY 01/16/24 digestive enzymes 1 tab PO TID 03/15/24 ergocalciferol (vitamin D2) 1,250 mcg (50,000 unit) capsule (Vitamin D2) 1,250 mcg PO QWEEK 03/15/24 metformin 500 mg tablet 500 mg PO .1500, 2100 03/15/24 Held on 12/07/24. Instructions: Resume on 12/12/24. vit A 750 mcg-vit C 150 mg-D3 31.25 xsp-wvjq-blcibicch-quercet capsule (Immune Essentials Daily) 1 cap PO TID 03/15/24 acetaminophen 500 mg tablet 500 mg PO Q6H #30 tabs 03/30/24 fenofibrate 160 mg tablet 160 mg PO QDAY 07/02/24 aspirin 81 mg tablet,delayed release 81 mg PO BREAKFAST #0 tabs 12/07/24 atorvastatin 20 mg tablet 20 mg PO QHS #30 tabs 12/07/24 carvedilol 3.125 mg tablet 3.125 mg PO BID #60 tabs 12/07/24 clopidogrel 75 mg tablet 75 mg PO DAILY #30 tabs 12/07/24 Hospital Course Operations None Procedures 2-D Echocardiogram and Cardiac catheterization Summary of Care Provided Minutes Spent on Discharge: 32 Hospital Course: Patient presents with chest pain. Troponins went up to 8 of 6. Patient underwent left heart catheterization on the that patient had a drug-elutingstent to the mid RCA. Patient also noted to havea lesion in obtuse marginal. Patient is overall feeling well and will be discharged home. She can follow-up with cardiology as outpatient. Weight / BMI Weight Weight: 96.9 kg Body Mass Index (BMI) 36.6 ABG / Lab / Microbiology Data 12/07/24 05:57 12/07/24 05:57 Laboratory: Laboratory Results - last 24 hr 12/06/24 12:28: POC Glucose 120 H 12/06/24 17:59: POC Glucose 170 H 12/06/24 21:16: POC Glucose 147 H 12/07/24 05:57: WBC 6.1, RBC 3.31 L, Hgb 10.6 L, Hct 31.7 L, MCV 95.8, MCH 32.0,MCHC 33.4, RDW Std Deviation 48.0 H, RDW Coeff of Christina 13.6, Plt Count 136 L, MPV9.8, Sodium 136, Potassium 4.4, Chloride 101, Carbon Dioxide 24.2, Anion Gap 11,BUN 19, Creatinine 1.43 H, Estim Creat Clear Calc 41.37 L, Est GFR (MDRD) Non-Af39 L, BUN/Creatinine Ratio 13.6, Glucose 140 H, Calcium 8.8, Total Bilirubin 0.39, AST 66 H, ALT 23, Alkaline Phosphatase 30 L, Total Protein 6.8, Albumin 4.0, Globulin 2.8, Albumin/Globulin Ratio 1.4 12/07/24 06:31: POC Glucose 143 H Radiography Diagnostic Testing: Radiology Impression Echocardiogram 12/05/24 19:30 Interpretation Summary Normal LV size. Left ventricular systolic function is normal. Stage 1 diastolic dysfunction. The estimated ejection fraction is 54 %. Pulmonary artery systolic pressure is 25 mmHg. Ordering Physician: Calista Weeks Performed By: Patience Valenzuela RDCS D/C Instructions Discharge Activity: Return to Normal Activity DC O2, CPAP, BIPAP Needs Home O2 Discharge instructions: No Meaningful Use Info Meaningful Use Meaningful Use Diagnoses (Choose all that apply): AMI AMI/Post PCI/Angioplasty Aspirin given w/in 24hrs of arrival?: Yes ASA at discharge?: Yes Antiplatelet Therapy at Discharge:: Yes Statins at discharge?: Yes Drake/ARB at discharge?: No Reason Drake/ARB not ordered:: Worsening renal disease Beta Sherly at discharge?: Yes Done w/ Acute GA measure.: Yes Documented LVEF (%): 54 Discharge Plan Admission Admit Date/Time: 12/05/24 16:55 Primary Reason for Your Visit: myocardial infarction. Attending Provider: Basim Cheema Primary Care Provider: Moshe Key Consulting Providers: Kan Bernabe; Calista Weeks Discharge Orders/Prescriptions Prescriptions: New aspirin 81 mg Tablet,Delayed Release (Dr/Ec) 81 mg PO BREAKFAST Qty: 0 0RF atorvastatin 20 mg Tablet 20 mg PO QHS Qty: 30 0RF clopidogrel 75 mg Tablet 75 mg PO DAILY Qty: 30 0RF carvedilol 3.125 mg Tablet 3.125 mg PO BID Qty: 60 0RF Continued levothyroxine 75 mcg capsule 150 mcg PO DAILY omeprazole 40 mg capsule,delayed release(DR/EC) 40 mg PO QDAY vitamin E (dl, acetate) 180 mg (400 unit) capsule 180 mg PO DAILY omega 3-giv-xkg-fish oil [Fish Oil] 1,200 (144-216) mg capsule 1 cap PO DAILY fenofibrate 160 mg tablet 160 mg PO QDAY digestive enzymes Tablet 1 tab PO TID Immune Essentials Daily 750 mcg-150 mg- 31.25 mcg capsule 1 cap PO TID ergocalciferol (vitamin D2) [Vitamin D2] 1,250 mcg (50,000 unit) capsule 1,250 mcg PO QWEEK acetaminophen 500 mg Tablet 500 mg PO Q6H Qty: 30 0RF Held metformin 1,000 mg tablet 1,000 mg PO .QAM Hold Instructions: Resume on 12/12/24. metformin 500 mg tablet 500 mg PO .1500, 2100 Hold Instructions: Resume on 12/12/24. Discontinued irbesartan 300 mg tablet 300 mg PO DAILY chlorthalidone 25 mg tablet 25 mg PO DAILY furosemide 20 mg tablet 20 mg PO DAILY rosuvastatin 10 mg tablet 10 mg PO QHS Referrals / Follow Up: [facility] [Provider Group] - Within 1 Month Moshe Key MD [Primary Care Provider] - Sedrick Hemphill NP-C [Non-Staff] - Within 2 Weeks Disposition Disposition (needs filled in before D/C Order can be placed): Home, Self Care Charges/Coding Visit Charges Inpatient E&M: 57840 Disch Hosp >30min 12/07/24 1117 Cosigner Signature (if applicable): CC: [employer] ASSOCIATEMelodie Hemphill; Dr. Moshe Key MD; Dr. Basim Cheema DO~ Signed [facility]07-15-2025 [facility] Medical Records Department [address] [place] [address] Discharge Summary 12/07/24 1107 MR#: [id number] Acct: [id number] Name: YODIT LANDIN Rep #: [id number] : 1955 69 From: Basim Cheema DO PCP: Dr. Moshe Key MD Status:ADM IN Location: [place] [id number] Providers Date of Admission: 12/05/24 Primary Care Physician: Dr. Moshe Key MD Consultations 12/05/24 19:30 Consult: Cardiology Routine Consulting Provider: Kan Bernabe Reason for Consult: Chest Pain, NSTEMI EMERGENT Consult: No MD Notified: Yes Date Notified: 12/05/24 Time Notified: 16:57 Method of Notification: ED Physician Initiated Reason For Visit: CHEST PAIN, NSTEMI Diagnosis Discharge Diagnosis (1) Non-ST elevation GA (NSTEMI): Status: Acute Code(s): I21.4 - Non-ST elevation (NSTEMI) myocardial infarction Plan Acute NSTEMI: * troponins up to 806. * Cardiology consult. Check echo * s/p RONALD to mid RCA. Will need staged PCI for OM. Chronic Kidney Disease Stage III: LAURA ruled out. Chronic normocytic anemia: Admission hemoglobin 11.1, MCV 95.4 however significantly dehydrated, baseline hemoglobin noted previously primarily more recently 8-9 but labs distant and last noted 03/30/2024 hemoglobin 9.6 at that time, will continue to trend. Hypertension: Given presentation with orthostasis, acute kidney injury and low blood pressure holding all hypertensive regimen, add back once clinically appropriate. Hyperlipidemia: Continue home statin and fenofibrate regimen. AM FLP. Diabetes mellitus type II: Hold oral home regimen, ADA diet until n.p.o. status, HgbA1c requested given #1 presentation, accu checks w/ ISS. Obesity: Weight loss and lifestyle changes encouraged. Former tobacco use: Encourage continued tobacco cessation. GERD: Will maintain on PPI. Hypothyroidism: Will continue patient on levothyroxine regimen. DVT prophylaxis: Heparin drip to be continued. Medications at Discharge Home Medications levothyroxine 75 mcg capsule 150 mcg PO DAILY 01/16/24 metformin 1,000 mg tablet 1,000 mg PO .QAM 01/16/24 Held on 12/07/24. Instructions: Resume on 12/12/24. omega 3-jaq-tzn-fish oil 1,200 mg (144 mg-216 mg) capsule (Fish Oil) 1 cap PO DAILY 01/16/24 omeprazole 40 mg capsule,delayed release 40 mg PO QDAY 01/16/24 vitamin E (dl, acetate) 180 mg (400 unit) capsule 180 mg PO DAILY 01/16/24 digestive enzymes 1 tab PO TID 03/15/24 ergocalciferol (vitamin D2) 1,250 mcg (50,000 unit) capsule (Vitamin D2) 1,250 mcg PO QWEEK 03/15/24 metformin 500 mg tablet 500 mg PO .1500, 2100 03/15/24 Held on 12/07/24. Instructions: Resume on 12/12/24. vit A 750 mcg-vit C 150 mg-D3 31.25 rqo-qdjm-umjhhehgj-quercet capsule (Immune Essentials Daily) 1 cap PO TID 03/15/24 acetaminophen 500 mg tablet 500 mg PO Q6H #30 tabs 03/30/24 fenofibrate 160 mg tablet 160 mg PO QDAY 07/02/24 aspirin 81 mg tablet,delayed release 81 mg PO BREAKFAST #0 tabs 12/07/24 atorvastatin 20 mg tablet 20 mg PO QHS #30 tabs 12/07/24 carvedilol 3.125 mg tablet 3.125 mg PO BID #60 tabs 12/07/24 clopidogrel 75 mg tablet 75 mg PO DAILY #30 tabs 12/07/24 Hospital Course Operations None Procedures 2-D Echocardiogram and Cardiac catheterization Summary of Care Provided Minutes Spent on Discharge: 32 Hospital Course: Patient presents with chest pain. Troponins went up to 8 of 6. Patient underwent left heart catheterization on the that patient had a drug-eluting stent to the mid RCA. Patient also noted to have a lesion in obtuse marginal. Patient is overall feeling well and will be discharged home. She can follow-up with cardiology as outpatient. Weight / BMI Weight Weight: 96.9 kg Body Mass Index (BMI) 36.6 ABG / Lab / Microbiology Data 12/07/24 05:57 12/07/24 05:57 Laboratory: Laboratory Results - last 24 hr 12/06/24 12:28: POC Glucose 120 H 12/06/24 17:59: POC Glucose 170 H 12/06/24 21:16: POC Glucose 147 H 12/07/24 05:57: WBC 6.1, RBC 3.31 L, Hgb 10.6 L, Hct 31.7 L, MCV 95.8, MCH 32.0, MCHC 33.4, RDW Std Deviation 48.0 H, RDW Coeff of Christina 13.6, Plt Count 136 L, MPV 9.8, Sodium 136, Potassium 4.4, Chloride 101, Carbon Dioxide 24.2, Anion Gap 11, BUN 19, Creatinine 1.43 H, Estim Creat Clear Calc 41.37 L, Est GFR (MDRD) Non-Af 39 L, BUN/Creatinine Ratio 13.6, Glucose 140 H, Calcium 8.8, Total Bilirubin 0.39, AST 66 H, ALT 23, Alkaline Phosphatase 30 L, Total Protein 6.8, Albumin 4.0, Globulin 2.8, Albumin/Globulin Ratio 1.4 12/07/24 06:31: POC Glucose 143 H Radiography Diagnostic Testing: Radiology Impression Echocardiogram 12/05/24 19:30 Interpretation Summary Normal LV size. Left ventricular systolic function is normal. Stage 1 diastolic dysfunction. The estimated ejection fraction is 54 %. Pulmonary artery systolic pressure is 25 (more content not included)...[facility]07-15-2025 Progress note [facility] Medical Records Department [address] [place] [address] Progress Note - Hospitalist 12/07/24 0841 MR#: [id number] Acct: [id number] Name: YODIT LANDIN Rep #:[id number] : 1955 69 From: Basim Cheema DO PCP: Dr. Moshe Key MD Status:ADM IN Location: [place] [address] Reason for Visit Chief Complaint: Chest pain Subjective Subjective Feeling not her self. Denies chest pain, shortness of breath. Objective Data Objective Data Vital Signs: Vital Signs Temp Pulse Resp BP Pulse Ox O2 Del Method O2 Flow Rate 36.9 C 88 16 126/72 H 95 Room Air 2 12/07/24 08:29 12/07/24 08:29 12/07/24 08:29 12/07/24 08:29 12/07/24 08:29 12/07/24 08:29 12/06/24 12:49 Oxygen Flow Rate (L/min) 2 Oxygen Delivery Method Room Air Weight: 96.9 kg Body Mass Index (BMI) 36.6 Intake & Output: Intake and Output for Last 24 Hours 12/05/24 12/06/24 12/07/24 23:59 23:59 23:59 Intake Total 1562 / 1562 3236.50 / 3736.50 750 / 750 Balance 1562 / 1562 3236.50 / 3736.50 750 / 750 Lab / Micro Data 12/07/24 05:57 12/07/24 05:57 Labs: Laboratory Results - last 24 hr 12/06/24 12:28: POC Glucose 120 H 12/06/24 17:59: POC Glucose 170 H 12/06/24 21:16: POC Glucose 147 H 12/07/24 05:57: WBC 6.1, RBC 3.31 L, Hgb 10.6 L, Hct 31.7 L, MCV 95.8, MCH 32.0,MCHC 33.4, RDW Std Deviation 48.0 H, RDW Coeff of Christina 13.6, Plt Count 136 L, MPV9.8, Sodium 136, Potassium 4.4, Chloride 101, Carbon Dioxide 24.2, Anion Gap 11,BUN 19, Creatinine 1.43 H, Estim Creat Clear Calc 41.37 L, Est GFR (MDRD) Non-Af39 L, BUN/Creatinine Ratio 13.6, Glucose 140 H, Calcium 8.8, Total Bilirubin 0.39, AST 66 H, ALT 23, Alkaline Phosphatase 30 L, Total Protein 6.8, Albumin 4.0, Globulin 2.8, Albumin/Globulin Ratio 1.4 12/07/24 06:31: POC Glucose 143 H Radiography Diagnostic Testing: Radiology Impression Echocardiogram 12/05/24 19:30 Interpretation Summary Normal LV size. Left ventricular systolic function is normal. Stage 1 diastolic dysfunction. The estimated ejection fraction is 54 %. Pulmonary artery systolic pressure is 25 mmHg. Ordering Physician: Calista Weeks Performed By: Patience Valenzuela RDCS Rhythm Strip Rhythm Strip: Sinus Rhythm Rate: 60 Physical Exam Const alert and no apparent distress Cardio regular rate, regular rhythm, S1 normal heart sound and S2 normal heart sound GI normal to inspection, nondistended, normoactive bowel sounds, soft to palpation and non-tender Neuro Sensorium / Orientation: awake and alert Assessment & Plan Assessment/Plan (1) Non-ST elevation GA (NSTEMI): PLAN: Plan Acute NSTEMI: * troponins up to 806. * Cardiology consult. Check echo * s/p RONALD to mid RCA. Will need staged PCI for OM. Chronic Kidney Disease Stage III: LAURA ruled out. Chronic normocytic anemia: Admission hemoglobin 11.1, MCV 95.4 however significantly dehydrated, baseline hemoglobin noted previously primarily more recently 8-9 but labs distant and last noted 03/30/2024 hemoglobin 9.6 at that time, will continue to trend. Hypertension: Given presentation with orthostasis, acute kidney injury and low blood pressure holding all hypertensive regimen, add back once clinically appropriate. Hyperlipidemia: Continue home statin and fenofibrate regimen. AM FLP. Diabetes mellitus type II: Hold oral home regimen, ADA diet until n.p.o. status,HgbA1c requested given #1 presentation, accu checks w/ ISS. Obesity: Weight loss and lifestyle changes encouraged. Former tobacco use: Encourage continued tobacco cessation. GERD: Will maintain on PPI. Hypothyroidism: Will continue patient on levothyroxine regimen. DVT prophylaxis: Heparin drip to be continued. 12/07/24 1106 Cosigner Signature (if applicable): CC: ~ Signed [facility]07-15-2025 Progress note Author Anup Womack [facility] Note Date/Time December 07, 2024 7:54 am [facility] Medical Records Department [address] [place] [address] Progress Note - Cardiology 12/07/24 0746 MR#: [id number] Acct: [id number] Name: YODIT LANDIN Rep #:[id number] : 1955 69 From: Anup Womack MD PCP: Dr. Moshe Key MD Status:ADM IN Location: [place] [address] Subjective Subjective Patient underwent successful PCI of the third toe including right coronary artery on 12/06/2024. Patient denies any recurrence of any anginal symptoms. She does complain of some tenderness over the right radial insertion site and at site of right antecubital IV insertion site. She denies any loss in sensation in her fingers of the right hand and is able to use her hand without any restrictions. Objective Data Vital Signs: Vital Signs Temp Pulse Resp BP Pulse Ox O2 Del Method O2 Flow Rate 97.2 F L 78 18 103/55 L 97 Room Air 2 12/07/24 01:17 12/07/24 01:17 12/07/24 01:17 12/07/24 01:17 12/07/24 01:17 12/07/24 01:36 12/06/24 12:49 Oxygen Flow Rate (L/min) 2 Oxygen Delivery Method Room Air Weight: 213 lb 10.047 oz Body Mass Index (BMI) 36.6 Intake & Output: Intake and Output for Last 24 Hours 12/05/24 12/06/24 12/07/24 23:59 23:59 23:59 Intake Total 1562 / 1562 3236.50 / 3236.50 Balance 1562 / 1562 3236.50 / 3236.50 Lab / Micro Data Attestation: I reviewed the patient's lab results. 12/07/24 05:57 12/07/24 05:57 Labs: Laboratory Results - last 24 hr 12/06/24 06:21: POC Glucose 170 H 12/06/24 12:28: POC Glucose 120 H 12/06/24 17:59: POC Glucose 170 H 12/06/24 21:16: POC Glucose 147 H 12/07/24 05:57: WBC 6.1, RBC 3.31 L, Hgb 10.6 L, Hct 31.7 L, MCV 95.8, MCH 32.0,MCHC 33.4, RDW Std Deviation 48.0 H, RDW Coeff of Christina 13.6, Plt Count 136 L, MPV9.8, Sodium 136, Potassium 4.4, Chloride 101, Carbon Dioxide 24.2, Anion Gap 11,BUN 19, Creatinine 1.43 H, Estim Creat Clear Calc 41.37 L, Est GFR (MDRD) Non-Af39 L, BUN/Creatinine Ratio 13.6, Glucose 140 H, Calcium 8.8, Total Bilirubin 0.39, AST 66 H, ALT 23, Alkaline Phosphatase 30 L, Total Protein 6.8, Albumin 4.0, Globulin 2.8, Albumin/Globulin Ratio 1.4 12/07/24 06:31: POC Glucose 143 H Rhythm Strip Rhythm Strip: Sinus Rhythm Rate: 60 Cardiology Labs/Tests 12/07/24 05:57: WBC 6.1, RBC 3.31 L, Hgb 10.6 L, Hct 31.7 L, MCV 95.8, MCH 32.0,MCHC 33.4, Plt Count 136 L, MPV 9.8, Sodium 136, Potassium 4.4, Chloride 101, Carbon Dioxide 24.2, Anion Gap 11, BUN 19, Creatinine 1.43 H, Est GFR (MDRD) Non-Af 39 L, BUN/Creatinine Ratio 13.6, Glucose 140 H, Calcium 8.8, Total Bilirubin 0.39 Rhythm: EKG: ECHO: Stress Test: Cardiac Cath: PCI: CT Surgery: Holter monitor: EPS: PPM: CXR: Chest CT Scan: Radiography Diagnostic Testing: Radiology Impression Echocardiogram 12/05/24 19:30 Interpretation Summary Normal LV size. Left ventricular systolic function is normal. Stage 1 diastolic dysfunction. The estimated ejection fraction is 54 %. Pulmonary artery systolic pressure is 25 mmHg. Ordering Physician: Calista Weeks Performed By: Patience Valenzuela RDCS Physical Exam Const alert and oriented x3 HEENT normocephalic Neck no JVD Chest inspection of chest normal Resp normal respiratory effort Cardio Rate: regular rate Rhythm: regular rhythm Peripheral Pulses: radial pulses present right (Noted ecchymotic area with normal tactile sensation of the fingers and normal capillary refill.) 1+ Extremity no pedal edema Neuro Neuro Narrative: Alert and oriented x 3 Psych mental status grossly normal Assessment & Plan Assessment/Plan (1) Non-ST elevation GA (NSTEMI): PLAN: Patient tolerated stenting of the right coronary without incident. She does not tenderness and ecchymosis at the right radial insertion site. There isgood distal blood flow and the capillary refill is normal she has normal sensation in her fingers and thumb. The patient will remain on dual antiplatelet therapy aspirin 81 mg daily and clopidogrel 75 mg daily. This should be uninterrupted for any reason for 6 months and preferably 1 year. I went over this in detail with the patient. The patient should be followed up in 7 to 10 days in the [place] [facility] office with her advanced practitioner to reevaluate compliance with her medical regiment and her insertion site. Patient does have mild renal insufficiency and creatinine has improved to 1.43 after her cath her hemoglobin is actually increased slightly with her chronic anemia up to 10.6. The patient does have a history of hemochromatosis. Patient's LFTs were minimally elevated as well AST was 66. Will reevaluate thisin 7 to 10 days as well as she is on atorvastatin 20 mg daily which is a new medication for her. And she does have a history of hemochromatosis. Will reevaluate renal function and CBC at her office visit in 7 to 10 days. (2) Hypertension: QUALIFIERS: Hypertension type: primary hypertension Qualified Code(s): I10 - Essential (primary) hypertension PLAN: Blood pressure is well-controlled on her current medical therapy. Patientshould be continued on her current meds. (3) Anemia: QUALIFIERS: Anemia type: unspecified type Qualified Code(s): D64.9 - Anemia, unspecified PLAN: Hemoglobin is actually increased to 10.6. This will be reevaluated in 7 to 10 days. (4) CKD (chronic kidney disease): QUALIFIERS: Chronic kidney disease stage: stage 3 (moderate) Chronic kidney disease stage 3 subtype: stage 3b (GFR 30-44) Qualified Code(s): N18.32 - Chronic kidney disease, stage 3b PLAN: Patient's creatinine is 1.43 BUN 19 this gives a calculated GFR of 39. This is actually improved since her admission and catheterization. Will reevaluate basic metabolic panel in 7 to 10 days. PLAN: Plan 1. From cardiovascular standpoint the patient can be discharged to home. 2. Will reevaluate CBC and complete metabolic panel in 7 to 10 days. 3. Patient be reevaluated at [facility] office 5 advanced practitionerin 7 to [address] Womack in 4 to 6 weeks. Charges/Coding Visit Charges Inpatient E&M: 67577 Subs Hosp L2 12/07/24 2334 <Electronically signed by Anup Womack MD> Cosigner Signature (if applicable): CC: ~ Signed [facility] Work Phone: [phone] Study report [facility] Cardiac Rehab [address] [place] [address] CR: Phase I Education Summary MR#: [id number] Acct: [id number] Name: YDOIT LANDIN Rep #:[id number] : 1955 69 From: Pennie Diaz MD PCP: Dr. Moshe Key MD DOS: 11/23 08/17 General Education Discussed with Patient CAD and cardiac anatomy and function:: Patient communicates acknowledgment Explanation of diagnoses and procedures:: Patient communicates acknowledgment Sign/Symptoms of GA:: Patient communicates acknowledgment Antiplatelet therapy: Patient communicates acknowledgment and Needs reinforcement Proper use of NTG-SL: Patient communicates acknowledgment Emergency procedures and activation of EMS: Patient communicates acknowledgment Compliance of all prescribed medications: Patient communicates acknowledgment and Needs reinforcement Smoking Risk Factors Patient Nicotine/Smoking Risk Factors Are:: Never smoked Response Code Nicotine/Smoking Response Code:: Patient communicates acknowledgment Dyslipidemia Recommendations Recommendations Include:: Lipid profile not available Overweight/Obesity Risk Factors Patient Overweight/Obesity Risk Factors Are:: Obesity - > or = 30 (36.8) Recommendations Recommendations Include:: Weight loss of 5-10%, Reduced calorie diet and Exercise 5-7 times/week Response Code Overweight/Obesity:: Patient communicates acknowledgment Hypertension Recommendations Recommendations Include:: Maintain BP <130/85, BP <130/80 if diabetic and Decrease/maintain normal body weight Response Code Hypertension:: Patient communicates acknowledgment Heart Disease Risk Factors Patient Heart Disease Risk Factors Are:: Previous cardiac event Response Code Heart Disease Response Code:: Patient communicates acknowledgment Diabetes Risk Factors Patient Diabetes Risk Factors Are:: Elevated blood sugars Recommendations Recommendations Include:: Maintain fasting blood sugars 70-110 md/dL, Maintain HgbA1c of 6% or less, Monitor blood sugar as prescribed, Diabetic dietary guidelines and Decrease/maintain body weight Response Code Diabetes:: Patient communicates acknowledgment Metabolic Syndrome Risk Factors Patient Metabolic Syndrome Risk Factors Are [3 of 5]:: Hypertension Recommendations Recommendations Include:: Reinforce compliance to risk factor modifications, Patient is diabetic and Encouraged follow-up with Primary Care Physician Response Code Metabolic Syndrome Response Code:: Patient communicates acknowledgment Sedentary Risk Factors Patient Sedentary Risk Factors Are:: Lack of regular exercise Recommendations Recommendations Include:: Aerobic exercise 5-7 times/week for 20-30 minutes continuously, Benefits of regular exercise, Discussed home walking program and Monitored Outpatient Cardiac Rehab Response Code Sedentary Response Code:: Patient communicates acknowledgment Stress Risk Factors Patient Stress Risk Factors Are:: Patient denies stress as a risk factor Recommendations Recommendations Include:: Identification of stressors, and assessment of coping skills and Stress management techniques Response Code Stress Response Code:: Patient communicates acknowledgment 12/07/24 0834 Date Pennie Diaz MD Outcome assessment reviewed. Exercise plan approved as documented. Treatment plan and goals support patient needs/abilities. Continue with current plan. I certify the patient demonstrates improvement and remains willing and capable of participation. the patient continues to benefit from cardiac rehab services/training. The patient may continue at current intensity, endurance andmodality and progress per protocol. Cosigner Signature: Date CC: ~ Signed [facility] Work Phone: [phone] Progress note [facility] Medical Records Department [address] [place] [address] Progress Note - Cardiology 12/07/24 0746 MR#: [id number] Acct: [id number] Name: YODIT LANDIN Rep #:[id number] : 1955 69 From: Anup Womack MD PCP: Dr. Moshe Key MD Status:ADM IN Location: [place] [address] Subjective Subjective Patient underwent successful PCI of the third toe including right coronary artery on 12/06/2024. Patient denies any recurrence of any anginal symptoms. She does complain of some tenderness over the right radial insertion site and at site of right antecubital IV insertion site. She denies any loss in sensation in her fingers of the right hand and is able to use her hand without any restrictions. Objective Data Vital Signs: Vital Signs Temp Pulse Resp BP Pulse Ox O2 Del Method O2 Flow Rate 97.2 F L 78 18 103/55 L 97 Room Air 2 12/07/24 01:17 12/07/24 01:17 12/07/24 01:17 12/07/24 01:17 12/07/24 01:12/07/24 01:36 12/06/24 12:49 Oxygen Flow Rate (L/min) 2 Oxygen Delivery Method Room Air Weight: 213 lb 10.047 oz Body Mass Index (BMI) 36.6 Intake & Output: Intake and Output for Last 24 Hours 07/13/25 07/14/25 07/15/25 23:59 23:59 23:59 Intake Total 1562 / 1562 3236.50 / 3236.50 Balance 1562 / 1562 3236.50 / 3236.50 Lab / Micro Data Attestation: I reviewed the patient's lab results. 12/07/24 05:57 12/07/24 05:57 Labs: Laboratory Results - last 24 hr 12/06/24 06:21: POC Glucose 170 H 12/06/24 12:28: POC Glucose 120 H 12/06/24 17:59: POC Glucose 170 H 12/06/24 21:16: POC Glucose 147 H 12/07/24 05:57: WBC 6.1, RBC 3.31 L, Hgb 10.6 L, Hct 31.7 L, MCV 95.8, MCH 32.0,MCHC 33.4, RDW Std Deviation 48.0 H, RDW Coeff of Christina 13.6, Plt Count 136 L, MPV9.8, Sodium 136, Potassium 4.4, Chloride 101, Carbon Dioxide 24.2, Anion Gap 11,BUN 19, Creatinine 1.43 H, Estim Creat Clear Calc 41.37 L, Est GFR (MDRD) Non-Af39 L, BUN/Creatinine Ratio 13.6, Glucose 140 H, Calcium 8.8, Total Bilirubin 0.39, AST 66 H, ALT 23, Alkaline Phosphatase 30 L, Total Protein 6.8, Albumin 4.0, Globulin 2.8, Albumin/Globulin Ratio 1.4 12/07/24 06:31: POC Glucose 143 H Rhythm Strip Rhythm Strip: Sinus Rhythm Rate: 60 Cardiology Labs/Tests 12/07/24 05:57: WBC 6.1, RBC 3.31 L, Hgb 10.6 L, Hct 31.7 L, MCV 95.8, MCH 32.0,MCHC 33.4, Plt Count 136 L, MPV 9.8, Sodium 136, Potassium 4.4, Chloride 101, Carbon Dioxide 24.2, Anion Gap 11, BUN 19, Creatinine 1.43 H, Est GFR (MDRD) Non-Af 39 L, BUN/Creatinine Ratio 13.6, Glucose 140 H, Calcium 8.8, Total Bilirubin 0.39 Rhythm: EKG: ECHO: Stress Test: Cardiac Cath: PCI: CT Surgery: Holter monitor: EPS: PPM: CXR: Chest CT Scan: Radiography Diagnostic Testing: Radiology Impression Echocardiogram 12/05/24 19:30 Interpretation Summary Normal LV size. Left ventricular systolic function is normal. Stage 1 diastolic dysfunction. The estimated ejection fraction is 54 %. Pulmonary artery systolic pressure is 25 mmHg. Ordering Physician: Calista Weeks Performed By: Patience Valenzuela RDCS Physical Exam Const alert and oriented x3 HEENT normocephalic Neck no JVD Chest inspection of chest normal Resp normal respiratory effort Cardio Rate: regular rate Rhythm: regular rhythm Peripheral Pulses: radial pulses present right (Noted ecchymotic area with normal tactile sensationof the fingers and normal capillary refill.) 1+ Extremity no pedal edema Neuro Neuro Narrative: Alert and oriented x 3 Psych mental status grossly normal Assessment & Plan Assessment/Plan (1) Non-ST elevation GA (NSTEMI): PLAN: Patient tolerated stenting of the right coronary without incident. She does not tenderness and ecchymosis at the right radial insertion site. There isgood distal blood flow and the capillary refill is normal she has normal sensation in her fingers and thumb. The patient will remain on dual antiplatelet therapy aspirin 81 mg daily and clopidogrel 75 mg daily. This should be uninterrupted for any reason for 6 months and preferably 1 year. I went over this in detail with the patient. The patient should be followed up in 7 to 10 days in the [place] [facility] office with her advanced practitioner to reevaluate compliance with her medical regiment and her insertion site. Patient does have mild renal insufficiency and creatinine has improved to 1.43 after her cath her hemoglobin is actually increased slightly with her chronic anemia up to 10.6. The patient does have ahistory of hemochromatosis. Patient's LFTs were minimally elevated as well AST was 66. Will reevaluate thisin 7 to 10 days as well as she is on atorvastatin 20 mg daily which is a new medication for her. And she does have a history of hemochromatosis. Will reevaluate renal function and CBC at her office visit in 7 to 10 days. (2) Hypertension: QUALIFIERS: Hypertension type: primary hypertension Qualified Code(s): I10 - Essential (primary) hypertension PLAN: Blood pressure is well-controlled on her current medical therapy. Patientshould be continued on her current meds. (3) Anemia: QUALIFIERS: Anemia type: unspecified type Qualified Code(s): D64.9 - Anemia, unspecified PLAN: Hemoglobin is actually increased to 10.6. This will be reevaluated in 7 to 10 days. (4) CKD (chronic kidney disease): QUALIFIERS: Chronic kidney disease stage: stage 3 (moderate) Chronic kidney disease stage 3 subtype: stage 3b (GFR 30-44) Qualified Code(s): N18.32 - Chronic kidney disease, stage 3b PLAN: Patient's creatinine is 1.43 BUN 19 this gives a calculated GFR of 39. This is actually improved since her admission and catheterization. Will reevaluate basic metabolic panel in 7 to 10 days. PLAN: Plan 1. From cardiovascular standpoint the patient can be discharged to home. 2. Will reevaluate CBC and complete metabolic panel in 7 to 10 days. 3. Patient be reevaluated at [place] [facility] office 5 advanced practitionerin 7 to [address] Womack in 4 to 6 weeks. Charges/Coding Visit Charges Inpatient E&M: 43017 Subs Hosp L2 12/07/24 0757 Cosigner Signature (if applicable): CC: ~ Signed [facility]07-14-2025 Progress note Author Basim Cheema [facility] Note Date/Time December 06, 2024 12:0 2pm [facility] Medical Records Department [address] [place] [address] Progress Note - Hospitalist 12/06/24812 MR#: [id number] Acct: [id number] Name: YODIT LANDIN Rep #:[id number] : 1955 69 From: Basim Cheema DO PCP: Dr. Moshe Key MD Status:ADM IN Location: [place] [id number] Reason for Visit Chief Complaint: Chest pain Subjective Subjective Nervous about the heart catheterization Objective Data Objective Data Vital Signs: Vital Signs Temp Pulse Resp BP Pulse Ox O2 Del Method 36.4 C L 75 18 101/59 L 93 Room Air 12/06/24 06:29 12/06/24 06:29 12/06/24 06:29 12/06/24 06:29 12/06/24 06:29 12/06/24 06:29 Oxygen Delivery Method Room Air Weight: 97.2 kg Body Mass Index (BMI) 36.8 Intake & Output: Intake and Output for Last 24 Hours 12/04/24 12/05/24 12/06/24 23:59 23:59 23:59 Intake Total 1562 / 1562 174.43 / 174.43 Balance 1562 / 1562 174.43 / 174.43 Lab / Micro Data 12/06/24 04:45 12/06/24 04:45 Labs: Laboratory Results - last 24 hr 12/05/24 14:27: WBC 6.9, RBC 3.50 L, Hgb 11.1 L, Hct 33.4 L, MCV 95.4, MCH 31.7,MCHC 33.2, RDW Std Deviation 46.8 H, RDW Coeff of Christina 13.5, Plt Count 169, MPV 9.9, Immature Gran % (Auto) 0.400, Neut % (Auto) 65.8, Lymph % (Auto) 24.2, [place]% (Auto) 8.5, Eos % (Auto) 0.7, Baso % (Auto) 0.4, Absolute Neuts (auto) 4.5, Absolute Lymphs (auto) 1.66, Nucleated RBC % 0, PT 13.6, INR 1.0, APTT 25.8, Sodium 138, Potassium 4.1, Chloride 99, Carbon Dioxide 22.5, Anion Gap 16 H, BUN31 H, Creatinine 1.78 H, Estim Creat Clear Calc 32.80 L, Est GFR (MDRD) Non-Af 30 L, BUN/Creatinine Ratio 17.6, Glucose 145 H, Calcium 9.3, Total Bilirubin 0.26, Direct Bilirubin 0.15, AST 77 H, ALT 27, Alkaline Phosphatase 30 L, Troponin T High Sens 730 H*, Total Protein 7.1, Albumin 4.3, Globulin 2.8, [id number] 12/05/24 16:55: Magnesium 1.3 L, Troponin T Hi Sens 2 Hr 773 H*, NT pro BNP II 2390 H 12/05/24 18:20: Troponin T Hi Sens 4Hr 806 H* 12/05/24 21:14: POC Glucose 161 H 12/05/24 22:19: APTT 48.9 H 12/06/24 04:45: WBC 6.4, RBC 3.18 L, Hgb 10.3 L, Hct 30.5 L, MCV 95.9, MCH 32.4 H, MCHC 33.8, RDW Std Deviation 47.8 H, RDW Coeff of Christina 13.5, Plt Count 142 L, MPV 10.4, Immature Gran % (Auto) 0.300, Neut % (Auto) 65.4, Lymph % (Auto) 25.5,[place] % (Auto) 8.0, Eos % (Auto) 0.5, Baso % (Auto) 0.3, Absolute Neuts (auto) 4.2, Absolute Lymphs (auto) 1.62, APTT 50.6 H, Sodium 137, Potassium 4.0, Chloride 101, Carbon Dioxide 21.4, Anion Gap 14, BUN 28 H, Creatinine 1.57 H, Estim Creat Clear Calc 37.74 L, Est GFR (MDRD) Non-Af 35 L, BUN/Creatinine Ratio 18.1, Glucose 142 H, Hemoglobin A1c 6.8 H, Calcium 8.8, Total Bilirubin 0.26, AST 73 H, ALT 24, Alkaline Phosphatase 28 L, Total Protein 6.5, Albumin 3.9, Globulin 2.6, Albumin/Globulin Ratio 1.5, Triglycerides 258 H, Cholesterol 166, LDL Cholesterol, Calc 75, VLDL Cholesterol 52 H, HDL Cholesterol 40, Cholesterol/HDL Ratio 4.18 12/06/24 06:21: POC Glucose 170 H Radiography Diagnostic Testing: Radiology Impression Chest X-Ray 12/05/24 14:40 IMPRESSION: Mild pulmonary vascular congestion. No focal consolidation. Reading Location: [facility] Abdomen/Pelvis CT 12/05/24 15:11 IMPRESSION: 1. No acute intra-abdominal abnormality. 2. Colonic diverticulosis, without additional findings to suggest acute diverticulitis. Reading Location: [id number] Physical Exam Const alert and no apparent distress HEENT head/scalp atraumatic and moist oral mucous membranes Resp normal respiratory effort, no retractions, no use of accessory muscles and clearto auscultation bilaterally Cardio regular rate, regular rhythm, S1 normal heart sound and S2 normal heart sound Assessment & Plan Assessment/Plan (1) Non-ST elevation GA (NSTEMI): PLAN: Plan Chest Pain w/ Acute NSTEMI: * troponins up to 806. * Cardiology consult. Check echo * heparin gtt, atorvastatin, ASA * Planning on left heart catheterization LAURA on Chronic Kidney Disease Stage III unclear subtype per GFR trend secondary to likely GI losses with recent nausea and emesis bouts as noted/nephrotoxic medication: Admission BUN/Cr 31/1.78, GFR 30, baseline renal function primarily 1.1-1.2, repeat BMP in AM. Chronic normocytic anemia: Admission hemoglobin 11.1, MCV 95.4 however significantly dehydrated, baseline hemoglobin noted previously primarily more recently 8-9 but labs distant and last noted 03/30/2024 hemoglobin 9.6 at that time, will continue to trend. Hypertension: Given presentation with orthostasis, acute kidney injury and low blood pressure holding all hypertensive regimen, add back once clinically appropriate. Hyperlipidemia: Continue home statin and fenofibrate regimen. AM FLP. Diabetes mellitus type II: Hold oral home regimen, ADA diet until n.p.o. status,HgbA1c requested given #1 presentation, accu checks w/ ISS. Obesity: Weight loss and lifestyle changes encouraged. Former tobacco use: Encourage continued tobacco cessation. GERD: Will maintain on PPI. Hypothyroidism: Will continue patient on levothyroxine regimen. DVT prophylaxis: Heparin drip to be continued. Charges/Coding Visit Charges Inpatient E&M: 36845 Subs Hosp L2 12/06/24 1202 <Electronically signed by Basim Cheema DO> Cosigner Signature (if applicable): CC: ~ Signed [facility] Work Phone: [phone] Progress note [facility] Medical Records Department [address] [place] [address] Progress Note - Hospitalist 12/06/24812 MR#: [id number] Acct: [id number] Name: YODIT LANDIN Rep #:[id number] : 1955 69 From: Basim Cheema DO PCP: Dr. Moshe Key MD Status:ADM IN Location: [place] [address] Reason for Visit Chief Complaint: Chest pain Subjective Subjective Nervous about the heart catheterization Objective Data Objective Data Vital Signs: Vital Signs Temp Pulse Resp BP Pulse Ox O2 Del Method 36.4 C L 75 18 101/59 L 93 Room Air 12/06/24 06:29 12/06/24 06:29 12/06/24 06:29 12/06/24 06:29 12/06/24 06:29 12/06/24 06:29 Oxygen Delivery Method Room Air Weight: 97.2 kg Body Mass Index (BMI) 36.8 Intake & Output: Intake and Output for Last 24 Hours 12/04/24 12/05/24 12/06/24 23:59 23:59 23:59 Intake Total 1562 / 1562 174.43 / 174.43 Balance 1562 / 1562 174.43 / 174.43 Lab / Micro Data 12/06/24 04:45 12/06/24 04:45 Labs: Laboratory Results - last 24 hr 12/05/24 14:27: WBC 6.9, RBC 3.50 L, Hgb 11.1 L, Hct 33.4 L, MCV 95.4, MCH 31.7,MCHC 33.2, RDW Std Deviation 46.8 H, RDW Coeff of Christina 13.5, Plt Count 169, MPV 9.9, Immature Gran % (Auto) 0.400, Neut % (Auto) 65.8, Lymph % (Auto) 24.2, [place]% (Auto) 8.5, Eos % (Auto) 0.7, Baso % (Auto) 0.4, Absolute Neuts (auto) 4.5, Absolute Lymphs (auto) 1.66, Nucleated RBC % 0, PT 13.6, INR 1.0, APTT 25.8, Sodium 138, Potassium 4.1, Chloride 99, Carbon Dioxide 22.5, Anion Gap 16 H, BUN31 H, Creatinine 1.78 H, Estim Creat Clear Calc 32.80 L, Est GFR (MDRD) Non-Af 30 L, BUN/Creatinine Ratio 17.6, Glucose 145 H, Calcium 9.3, Total Bilirubin 0.26, Direct Bilirubin 0.15, AST 77 H, ALT 27, Alkaline Phosphatase 30 L, Troponin T High Sens 730 H*, Total Protein 7.1, Albumin 4.3, Globulin 2.8, [id number] 12/05/24 16:55: Magnesium 1.3 L, Troponin T Hi Sens 2 Hr 773 H*, NT pro BNP II 2390 H 12/05/24 18:20: Troponin T Hi Sens 4Hr 806 H* 12/05/24 21:14: POC Glucose 161 H 12/05/24 22:19: APTT 48.9 H 12/06/24 04:45: WBC 6.4, RBC 3.18 L, Hgb 10.3 L, Hct 30.5 L, MCV 95.9, MCH 32.4 H, MCHC 33.8, RDW Std Deviation 47.8 H, RDW Coeff of Christina 13.5, Plt Count 142 L, MPV 10.4, Immature Gran % (Auto) 0.300,Neut % (Auto) 65.4, Lymph % (Auto) 25.5,[place] % (Auto) 8.0, Eos % (Auto) 0.5, Baso % (Auto) 0.3, Absolute Neuts (auto) 4.2, Absolute Lymphs (auto) 1.62, APTT 50.6 H, Sodium 137, Potassium 4.0, Chloride 101, Carbon Dioxide 21.4, Anion Gap 14, BUN 28 H, Creatinine 1.57 H, Estim Creat Clear Calc 37.74 L, Est GFR (MDRD) Non-Af 35 L, BUN/Creatinine Ratio 18.1, Glucose 142 H, Hemoglobin A1c 6.8 H, Calcium 8.8, Total Bilirubin 0.26, AST 73 H, ALT 24, Alkaline Phosphatase 28 L, Total Protein 6.5, Albumin 3.9, Globulin 2.6, Albumin/Globulin Ratio 1.5, Triglycerides 258 H, Cholesterol 166, LDL Cholesterol, Calc 75, VLDL Cholesterol 52 H, HDL Cholesterol 40, Cholesterol/HDL Ratio 4.18 12/06/24 06:21: POC Glucose 170 H Radiography Diagnostic Testing: Radiology Impression Chest X-Ray 12/05/24 14:40 IMPRESSION: Mild pulmonary vascular congestion. No focal consolidation. Reading Location: [id number] Abdomen/Pelvis CT 12/05/24 15:11 IMPRESSION: 1. No acute intra-abdominal abnormality. 2. Colonic diverticulosis, without additional findings to suggest acute diverticulitis. Reading Location: [id number] Physical Exam Const alert and no apparent distress HEENT head/scalp atraumatic and moist oral mucous membranes Resp normal respiratory effort, no retractions, no use of accessory muscles and clearto auscultation bilaterally Cardio regular rate, regular rhythm, S1 normal heart sound and S2 normal heart sound Assessment & Plan Assessment/Plan (1) Non-ST elevation GA (NSTEMI): PLAN: Plan Chest Pain w/ Acute NSTEMI: * troponins up to 806. * Cardiology consult. Check echo * heparin gtt, atorvastatin, ASA * Planning on left heart catheterization LAURA on Chronic Kidney Disease Stage III unclear subtype per GFR trend secondary to likely GI losseswith recent nausea and emesis bouts as noted/nephrotoxic medication: Admission BUN/Cr 31/1.78, GFR 30, baseline renal function primarily 1.1-1.2, repeat BMP in AM. Chronic normocytic anemia: Admission hemoglobin 11.1, MCV 95.4 however significantly dehydrated, baseline hemoglobin noted previously primarily more recently 8-9 but labs distant and last noted 03/30/2024 hemoglobin 9.6 at that time, will continue to trend. Hypertension: Given presentation with orthostasis, acute kidney injury and low blood pressure holding all hypertensive regimen, add back once clinically appropriate. Hyperlipidemia: Continue home statin and fenofibrate regimen. AM FLP. Diabetes mellitus type II: Hold oral home regimen, ADA diet until n.p.o. status,HgbA1c requested given #1 presentation, accu checks w/ ISS. Obesity: Weight loss and lifestyle changes encouraged. Former tobacco use: Encourage continued tobacco cessation. GERD: Will maintain on PPI. Hypothyroidism: Will continue patient on levothyroxine regimen. DVT prophylaxis: Heparin drip to be continued. Charges/Coding Visit Charges Inpatient E&M: 13827 Subs Hosp L2 12/06/24 1202 Cosigner Signature (if applicable): CC: ~ Signed [facility]07-14-2025 Consult note Author Anup Womack [facility] Note Date/Time December 06, 2024 8:52 am [facility] Medical Records Department [address] [place] [address] Consultation - Cardiology 12/06/24 0839 MR#: [id number] Acct: [id number] Name: YODIT LANDIN Rep #:[id number] : 1955 69 From: Anup Womack MD PCP: Dr. Moshe Key MD Status:ADM IN [id number] Assessment & Plan Assessment/Plan (1) Non-ST elevation GA (NSTEMI): PLAN: Patient had minor nonspecific ST changes on her ECG. Enzymes were 730/773/806. The patient's had no recurrence of her chest symptoms since resolved the evening prior to admission. She is anemic with a hemoglobin of 10.3 she has multiple cardiovascular risk factors. The patient is not allergic to iodine echocardiogram showed what appeared to to be near normal LV function. Official reading is pending. I recommend the patient undergo left heart catheterization. The procedure risk/benefit and alternatives were explained to the patient she voiced understanding and agrees to proceed. (2) Anemia: QUALIFIERS: Anemia type: unspecified type Qualified Code(s): D64.9 - Anemia, unspecified PLAN: Patient carries a history of anemia initial hemoglobin is 11.1 recheck was10.3 this morning. This is managed by the primary service she does have a history of hemochromatosis. (3) Diabetes: QUALIFIERS: Diabetes mellitus type: type 2 Diabetes mellitus halfway insulin use: without retirement use Diabetes mellitus complication status: without complication Qualified Code(s): E11.9 - Type 2 diabetes mellitus without complications PLAN: Patient carries a history of diabetes on oral agents. This is managed by the primary service. (4) High cholesterol: PLAN: Patient's lipids are managed by her primary care physician. She is on fenofibrate, omega-3 fatty acids, and rosuvastatin 10 mg daily. Her target LDL cholesterol should be less than 70 given her diabetes. (5) Hypertension: QUALIFIERS: Hypertension type: primary hypertension Qualified Code(s): I10 - Essential (primary) hypertension PLAN: Blood pressure appears to be adequate controlled on her current medical therapy. This will be continued long-term. PLAN: Plan 1. Recommend left heart catheterization later today. 2. Further recommendations pending outcome of the cath. HPI Consult Data Date of Consult: 12/06/24 HPI Narrative Reason for Consultation: Chest pain with positive enzymes HPI Narrative: YODIT LANDIN, is a 69 F who presents after environmental exposure to paint fumeswhen she was painting in her house. She developed chest discomfort inhaling thepaint fumes that lasted several hours and finally resolved in the evening hours. This was the day prior to her coming to the emergency department. Upon arrival to the emergency department the patient's ECG on 12/05/2024 showed anormal sinus rhythm at [address] changes. Her initial enzymestroponin was 730 seconds at seven 73/3 at 806. Her BNP was 2390. The patient carries a history of hypothyroidism obesity hypertension hyperlipidemia and diabetes chronic kidney disease and anemia. The patient's AST was also elevatedat 73 on admission. Patient's creatinine clearance was 38 GFR 35. Patient denies any chest symptoms since admission. Echocardiogram being performed showed what appeared to be near normal LV function EF estimated 50% visually is up luminary reading. Patient's current risk factors include a family history, hypertension, hyperlipidemia, diabetes, and remote smoker quit 7 years ago. [facility] Medical History (Updated 12/06/24 @ 08:[address] Anup Womack MD) Wears partial dentures Wears contact lenses Wears glasses Post-menopausal Thyroid disease Diabetes Arthritis High cholesterol Hemochromatosis Injury of head and neck Gastric reflux Former smoker History of pain when walking Hypertension History of echocardiogram Dehydration Nausea vomiting and diarrhea Home Medications ?Medication ?Instructions ?Recorded ?Last Taken ?Type chlorthalidone 25 mg tablet 25 mg PO DAILY 01/16/24 History furosemide 20 mg tablet 20 mg PO DAILY 01/16/2408/16 History irbesartan 300 mg tablet 300 mg PO DAILY 01/16/2409/16 History levothyroxine 75 mcg capsule 150 mcg PO DAILY 01/16/24 03/29/24 History metformin 1,000 mg tablet 1,000 mg PO .QAM 01/16/24 History omega 9-hpc-fcr-fish oil 1,200 mg 1 cap PO DAILY 01/1503/28/24 History (144 mg-216 mg) capsule (Fish Oil) omeprazole 40 mg capsule,delayed 40 mg PO QDAY 4 03/29/24 History release vitamin E (dl, acetate) 180 mg 180 mg PO DAILY 4 03/28/24 History (400 unit) capsule digestive enzymes 1 tab PO TID 03/15/24 History ergocalciferol (vitamin D2) 1,250 1,250 mcg PO QWEEK 1 03/27/24 History mcg (50,000 unit) capsule (Vitamin D2) metformin 500 mg tablet 500 mg PO .1500, 2100 03/28/24 History vit A 750 mcg-vit C 150 mg-D3 1 cap PO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 Oral Pulse Rate 48 L Pulse Rate [Lying] 77 Pulse Rate [Sitting (for 1 minute prior to obtaining)] 79 Pulse Rate [Standing (for 1 minute prior to obtaining)] 81 Respiratory Rate 14 Respiratory Effort Normal Non-Labored Respiratory Pattern Normal Blood Pressure 132/72 H Blood Pressure [Lying] 79/48 L Blood Pressure [Sitting (for 1 minute prior to obtaining)] 92/5 L Blood Pressure [Standing (for 1 minute prior to obtaining)] 94/56 L Blood Pressure Mean 92 Blood Pressure Mean [Lying] 58 Blood Pressure Mean [Sitting (for 1 minute prior to obtaining)] 34 Blood Pressure Mean [Standing (for 1 minute prior to obtaining)] 68 Pulse Ox 98 Oxygen Delivery Method Room Air 12/05/24 15:30 12/05/24 15:45 Temperature Temperature Source Pulse Rate 84 81 Pulse Rate [Lying] Pulse Rate [Sitting (for 1 minute prior to obtaining)] Pulse Rate [Standing (for 1 minute prior to obtaining)] Respiratory Rate 18 17 Respiratory Effort Respiratory Pattern Blood Pressure 104/61 101/60 Blood Pressure [Lying] Blood Pressure [Sitting (for 1 minute prior to obtaining)] Blood Pressure [Standing (for 1 minute prior to obtaining)] Blood Pressure Mean 76 74 Blood Pressure Mean [Lying] Blood Pressure Mean [Sitting (for 1 minute prior to obtaining)] Blood Pressure Mean [Standing (for 1 minute prior to obtaining)] Pulse Ox 97 97 Oxygen Delivery Method Positive well nourished, well developed and no apparent distress General Appearance ED: well developed HEENT Reports normocephalic and head/scalp atraumatic Mouth ED: Yes moist mucous membranes normal Eyes PERRL and EOMs intact bilaterally Neck full ROM and supple Chest Wall inspection of chest normal Resp normal respiratory effort and clear to auscultation bilaterally Cardio regular rate and regular rhythm GI soft to palpation, non-tender, non-distended and no masses Back/Spine normal ROM and normal to inspection Extremity normal to inspection and full ROM Neuro oriented x3, CN's II-XII intact bilaterally, moves all extremities, no focal motor deficits and no sensory deficits noted Sensorium / Orientation: awake and alert Psych mental status grossly normal and thought process normal Skin no rashes or lesions noted and no wounds <Dr. Keaton Sotelo, DO - Last Filed: 12/05/24 16:27> Physical Exam Const Vital Signs: 12/05/24 13:36 12/05/24 14:32 12/05/24 14:40 Temperature 98.4 F Temperature Source Oral Pulse Rate 48 L Pulse Rate [Lying] 77 Pulse Rate [Sitting (for 1 minute prior to obtaining)] 79 Pulse Rate [Standing (for 1 minute prior to obtaining)] 81 Respiratory Rate 14 Respiratory Effort Normal Non-Labored Respiratory Pattern Normal Blood Pressure 132/72 H Blood Pressure [Lying] 79/48 L Blood Pressure [Sitting (for 1 minute prior to obtaining)] 92/5 L Blood Pressure [Standing (for 1 minute prior to obtaining)] 94/56 L Blood Pressure Mean 92 Blood Pressure Mean [Lying] 58 Blood Pressure Mean [Sitting (for 1 minute prior to obtaining)] 34 Blood Pressure Mean [Standing (for 1 minute prior to obtaining)] 68 Pulse Ox 98 Oxygen Delivery Method Room Air 12/05/24 15:30 12/05/24 15:45 Temperature Temperature Source Pulse Rate 84 81 Pulse Rate [Lying] Pulse Rate [Sitting (for 1 minute prior to obtaining)] Pulse Rate [Standing (for 1 minute prior to obtaining)] Respiratory Rate 18 17 Respiratory Effort Respiratory Pattern Blood Pressure 104/61 101/60 Blood Pressure [Lying] Blood Pressure [Sitting (for 1 minute prior to obtaining)] Blood Pressure [Standing (for 1 minute prior to obtaining)] Blood Pressure Mean 76 74 Blood Pressure Mean [Lying] Blood Pressure Mean [Sitting (for 1 minute prior to obtaining)] Blood Pressure Mean [Standing (for 1 minute prior to obtaining)] Pulse Ox 97 97 Oxygen Delivery Method [facility] <KIZZY Ortiz - Last Filed: 12/05/24 17:00> [facility] Narrative Medical decision making narrative: Patient presenting today with complaints of not feeling well. Her son was sprayed painting in the basement yesterday, she began to feel lightheaded and also had midsternal chest pain yesterday evening that has subsided. She has hadnausea and 2 episodes of vomiting today. Cardiac workup obtained, her CBC reveals a hemoglobin of 11.1, creatinine is 1.78, BUN 31, troponin is elevated at 730. Patient given p.o. aspirin, EKG does not reveal NSTEMI or ischemia. She does not currently have chest pain. I did speak with cardiology Dr. Bernabe, he recommended a heparin drip which she has been started. She did have tenderness to her abdomen on exam, therefore CT scan of the abdomen and pelvis was obtained and is negative for any acute findings. Chest x-ray negative for cardiopulmonary abnormality. Given concerns for NSTEMI, I spoke with Dr. Weeks,patient will be admitted to the hospital in stable condition. I have personally performed a face to face assessment of the patient and have reviewed the RAMYA Note. I performed a substantive portion of the visit including all aspects of the following. My gutierrez findings include: History is patient presents with complaints of not feeling well since yesterday. Patient states that she was doing some work in her basement and somebody told her that she could use spray paint to paint down there and had used several cansof paint. They were working and it was quite hot in the basement. Then they went to [place] via car and she was driving and started not feeling well. She initially noticed some mild pressure in her chest and then her vision went whitefor a little bit and thought she was in a pass out so she pulled over and her son drove her home. Patient is just not felt well since that time. She has hadnausea and dry heaves. She had 2 episodes of diarrhea that were nonbloody. Denies sick contacts. She denies fever. She denied abdominal pain. Currently denies chest pain. She has history of hypertension as well as cholesterol and diabetes.] Exam is [HEENT-PERRLA, EOMI. Cranial nerves II through XII grossly intact. TMs clear. Mucous membranes moist. No adenopathy. Cardiovascular-regular rate and rhythm without murmur or ectopy Lungs-clear to auscultation, chest wall stable without crepitus or subcu emphysema Abdomen-normoactive bowel sounds, soft. Patient has tenderness palpation over the epigastric region with guarding. There is no rebound, rigidity, or perio signs. No mass palpated. Extremities-intact ?4, normal range of motion, normal pulses, atraumatic] Medical Decison Making patient presents with multiple vague complaints. EKG obtained arrival showed a sinus rhythm with frequent PACs and just some subtle ST elevation in leads III and aVF that are approximately half a millimeter. CBCwith differential obtained showed a white count 6.9 with hemoglobin 11.1 and platelet count of 169. Chemistries unremarkable. BUN 31 and creat 1.78. LFTs were normal. Troponin was elevated 730. Lipase normal at 60. CT scan of the abdomen pelvis that she unremarkable. Patient also had a chest x-ray that showed no acute disease process. Other additions or changes: [None] Lab Data Labs: Laboratory Results - last 24 hr 12/05/24 14:27 WBC 6.9 RBC 3.50 L Hgb 11.1 L Hct 33.4 L MCV 95.4 MCH 31.7 MCHC 33.2 RDW Std Deviation 46.8 H RDW Coeff of Christina 13.5 Plt Count 169 MPV 9.9 Immature Gran % (Auto) 0.400 Neut % (Auto) 65.8 Lymph % (Auto) 24.2 [place] % (Auto) 8.5 Eos % (Auto) 0.7 Baso % (Auto) 0.4 Absolute Neuts (auto) 4.5 Absolute Lymphs (auto) 1.66 Nucleated RBC % 0 PT 13.6 INR 1.0 APTT 25.8 Sodium 138 Potassium 4.1 Chloride 99 Carbon Dioxide 22.5 Anion Gap 16 H BUN 31 H Creatinine 1.78 H Estim Creat Clear Calc 32.80 L Est GFR (MDRD) Non-Af 30 L BUN/Creatinine Ratio 17.6 Glucose 145 H Calcium 9.3 Total Bilirubin 0.26 Direct Bilirubin 0.15 AST 77 H ALT 27 Alkaline Phosphatase 30 L Troponin T High Sens 730 H* Total Protein 7.1 Albumin 4.3 Globulin 2.8 Lipase 60 Radiography Diagnostic Testing: Clinical Impression(s) from Imaging Studies Chest X-Ray 12/05/24 14:40 IMPRESSION: Mild pulmonary vascular congestion. No focal consolidation. Reading Location: [id number] Abdomen/Pelvis CT 12/05/24 15:11 IMPRESSION: 1. No acute intra-abdominal abnormality. 2. Colonic diverticulosis, without additional findings to suggest acute diverticulitis. Reading Location: [id number] EKG Initial EKG: Comments: 80 bpm, normal sinus rhythm, no ST elevation, interpreted by attending ED physician <Dr. Keaton Sotelo, DO - Last Filed: 12/05/24 16:27> [facility] Narrative Medical decision making narrative: Patient presenting today with for complaints of not feeling well. Her son was sprayed painting in the basement yesterday, she began to feel lightheaded and also had midsternal chest pain yesterday evening that has subsided. She has had nausea and 2 episodes of vomiting today. Cardiac workup obtained, her CBC reveals a hemoglobin of 11.1, creatinine is 1.78, BUN 31, troponin is elevated at 730. Patient given p.o. aspirin, EKG does not reveal NSTEMI or ischemia. I did speak with cardiology Dr. Bernabe, he recommended a heparin drip which she has been started on. She did have tenderness to her abdomen on exam, therefore CT scan of the abdomen and pelvis was obtained and is negative for any acute findings. Chest x-ray negative for cardiopulmonary abnormality. I have personally performed a face to face assessment of the patient and have reviewed the RAMYA Note. I performed a substantive portion of the visit including all aspects of the following. My gutierrez findings include: History is patient presents with complaints of not feeling well since yesterday. Patient states that she was doing some work in her basement and somebody told her that she could use spray paint to paint down there and had used several cans of paint. They were working and it was quite hot in the basement. Then they went to [place] via car and she was driving and started not feeling well. She initially noticed some mild pressure in her chest and then her vision went white for a little bit and thought she was in a pass out so she pulled over and her son drove her home. Patient is just not felt well since that time. She has had nausea and dry heaves. She had 2 episodes of diarrhea that were nonbloody. Denies sick contacts. She denies fever. She denied abdominal pain. Currently denies chest pain. She has history of hypertension as well as cholesterol and diabetes.] Exam is [HEENT-PERRLA, EOMI. Cranial nerves II through XII grossly intact. TMs clear. Mucous membranes moist. No adenopathy. Cardiovascular-regular rate and rhythm without murmur or ectopy Lungs-clear to auscultation, chest wall stable without crepitus or subcu emphysema Abdomen-normoactive bowel sounds, soft. Patient has tenderness palpation over the epigastric region with guarding. There is no rebound, rigidity, or perio signs. No mass palpated. Extremities-intact ?4, normal range of motion, normal pulses, atraumatic] Medical Decison Making [patient presents with multiple vague complaints. EKG obtained arrival showed a sinus rhythm with frequent PACs and just some subtle ST elevation in leads III and aVF that are approximately half a millimeter. CBC with differential obtained showed a white count 6.9 with hemoglobin 11.1 and platelet count of 169. Chemistries unremarkable. BUN 31 and creat 1.78. LFTs were normal. Troponin was elevated 730. Lipase normal at 60. CT scan of the abdomen pelvis that she unremarkable. Patient also had a chest x-ray that showed no acute disease process.] Other additions or changes: [None] Lab Data Attestation: I reviewed the patient's lab results. Labs: Laboratory Results - last 24 hr 12/05/24 14:27 WBC 6.9 RBC 3.50 L Hgb 11.1 L Hct 33.4 L MCV 95.4 MCH 31.7 MCHC 33.2 RDW Std Deviation 46.8 H RDW Coeff of Christina 13.5 Plt Count 169 MPV 9.9 Immature Gran % (Auto) 0.400 Neut % (Auto) 65.8 Lymph % (Auto) 24.2 [place] % (Auto) 8.5 Eos % (Auto) 0.7 Baso % (Auto) 0.4 Absolute Neuts (auto) 4.5 Absolute Lymphs (auto) 1.66 Nucleated RBC % 0 PT 13.6 INR 1.0 APTT 25.8 Sodium 138 Potassium 4.1 Chloride 99 Carbon Dioxide 22.5 Anion Gap 16 H BUN 31 H Creatinine 1.78 H Estim Creat Clear Calc 32.80 L Est GFR (MDRD) Non-Af 30 L BUN/Creatinine Ratio 17.6 Glucose 145 H Calcium 9.3 Total Bilirubin 0.26 Direct Bilirubin 0.15 AST 77 H ALT 27 Alkaline Phosphatase 30 L Troponin T High Sens 730 H* Total Protein 7.1 Albumin 4.3 Globulin 2.8 Lipase 60 Radiography Diagnostic Testing: Clinical Impression(s) from Imaging Studies Chest X-Ray 12/05/24 14:40 IMPRESSION: Mild pulmonary vascular congestion. No focal consolidation. Reading Location: [facility] Abdomen/Pelvis CT 12/05/24 15:11 IMPRESSION: 1. No acute intra-abdominal abnormality. 2. Colonic diverticulosis, without additional findings to suggest acute diverticulitis. Reading Location: [facility] 1 view chest x-ray obtained interpreted by myself as no evidence of infiltrate or pneumothorax or acute disease process. Radiology felt there was mild pulmonary vascular congestion but no focal consolidation. EKG Initial EKG: Attestation: I personally reviewed and interpreted this EKG as follows: Comments: 80 bpm, normal sinus rhythm, frequent PACs. Subtle half millimeter ST elevation in leads III and aVF Prior EKG tracings: not available for review Discharge Plan Dx/Rx/DC Orders Clinical Impression: Chest pain, Non-ST elevation GA (NSTEMI) Disposition Disposition: Acute Care Hospital [facility] What to do if you have Problems For any increased pain, shortness of breath, bleeding, nausea or vomiting, chest pain, or any unexpected problems, contact your Primary Care Provider. Call [facility] ([phone]) or report to the closest Emergency Room. Call 911 if necessary. 12/05/24 1700 <Electronically signed by Phyllis DURAND> Cosigner Signature (if applicable): 12/05/24 6216 <Electronically signed by Keaton Sotelo DO> CC: Dr. Moshe Key MD ~ Signed [facility] Work Phone: [phone] Discharge summary [facility] Medical Records Department [address] [place] [address] Emergency Department Summary 12/05/24 MR#: [id number] Acct: [id number] Name: YODIT LANDIN Rep #:[id number] : 1955 69 From: Phyllis DURAND PCP: Dr. Moshe Key MD Status:ADM IN Location: [address] History of Present Illness Chief Complaint: General Illness Narrative Narrative: Patient presenting today due to multiple vague complaints that started yesterdayevening after beingexposed to paint fumes. Her son used 2 cans of spray paint in her basement, he did not open up the basement windows but did try to open thewindows in the upstairs portion of her house as well as turned the fans on. Shereports that she has felt lightheaded with standing, nauseous, and yesterday wasexperiencing midsternal chest pain that has resolved. She denies current chest pain. She reports thatshe has had 2 episodes of vomiting today. She denies vertiginous dizziness. She denies associated fevers, chills, shortness of breath, and abdominal pain. She denies any history of blood clots or recent surgery/travel/immobilization. [facility] Medical History Wears partial dentures Wears contact lenses Wears glasses Post-menopausal Thyroid disease Diabetes Arthritis High cholesterol Hemochromatosis Injury of head and neck Gastric reflux Former smoker History of pain when walking Hypertension History of echocardiogram Dehydration Nausea vomiting and diarrhea Home Medications ?Medication ?Instructions ?Recorded ?Last Taken ?Type chlorthalidone 25 mg tablet 25 mg PO DAILY 01/16/24 History furosemide 20 mg tablet 20 mg PO DAILY 01/16/2408/16 History irbesartan 300 mg tablet 300 mg PO DAILY 01/16/2409/16 History levothyroxine 75 mcg capsule 150 mcg PO DAILY 01/16/24 03/29/24 History metformin 1,000 mg tablet 1,000 mg PO .QAM 01/16/24 History omega 8-owc-yyy-fish oil 1,200 mg 1 cap PO DAILY 01/1503/28/24 History (144 mg-216 mg) capsule (Fish Oil) omeprazole 40 mg capsule,delayed 40 mg PO QDAY 4 03/29/24 History release vitamin E (dl, acetate) 180 mg 180 mg PO DAILY 4 03/28/24 History (400 unit) capsule digestive enzymes 1 tab PO TID 03/15/24 History ergocalciferol (vitamin D2) 1,250 1,250 mcg PO QWEEK 1 03/27/24 History mcg (50,000 unit) capsule (Vitamin D2) metformin 500 mg tablet 500 mg PO .1500, 2100 03/28/24 History vit A 750 mcg-vit C 150 mg-D3 1 cap PO TID 03/15/24 History 31.25 sih-ctyp-zagogzcbx-quercet capsule (Immune Essentials Daily) acetaminophen 500 mg tablet 500 mg PO Q6H #30 tabs 10/16 Unknown Rx fenofibrate 160 mg tablet 160 mg PO QDAY 07/02/24 Unkn own History rosuvastatin 10 mg tablet 10 mg PO QHS 09/23/24 Unknow n History Allergy/AdvReac Type Severity Reaction Status Date / Time codeine AdvReac Intermediate Vomiting Verified 12/05/24 13:38 sulfamethoxazole (From AdvReac Intermediate Vomiting Verified 12/05/24 13:38 Bactrim) trimethoprim (From Bactrim) AdvReac Intermediate Vomiting Verified 12/05/24 13:38 Surgical History History of surgery on right wrist Hx of repair of right rotator cuff History of 2 sections Hx of ovarian cystectomy Hx of hysterectomy Hx of tonsillectomy Social History (Updated 12/05/24 @ 16:[address] Calista Weeks MD) household members: none Smoking Status: Former smoker alcohol intake: never substance use type: does not use ROS ROS ED Constitutional Constitutional ED: Denies chills or fever(s) Cardiovascular Cardiovascular: Denies chest pain Respiratory/Chest Respiratory/Chest: Denies dyspnea Gastrointestinal Gastrointestinal: Reports nausea and vomiting; Denies abdominal pain or diarrhea Genitourinary Genitourinary ED: Denies dysuria, hematuria or urinary urgency Musculoskeletal Musculoskeletal: Denies arthralgias or myalgias Integumentary Denies rash Neurologic Neurologic: Denies dizziness or weakness EXAM Physical Exam Const Vital Signs: 12/05/24 13:36 12/05/24 14:32 12/05/24 14:40 Temperature 98.4 F Temperature Source Oral Pulse Rate 48 L Pulse Rate [Lying] 77 Pulse Rate [Sitting (for 1 minute prior to obtaining)] 79 Pulse Rate [Standing (for 1 minute prior to obtaining)] 81 Respiratory Rate 14 Respiratory Effort Normal Non-Labored Respiratory Pattern Normal Blood Pressure 132/72 H Blood Pressure [Lying] 79/48 L Blood Pressure [Sitting (for 1 minute prior to obtaining)] 92/5 L Blood Pressure [Standing (for 1 minute prior to obtaining)] 94/56 L Blood Pressure Mean 92 Blood Pressure Mean [Lying] 58 Blood Pressure Mean [Sitting (for 1 minute prior to obtaining)] 34 Blood Pressure Mean [Standing (for 1 minute prior to obtaining)] 68 Pulse Ox 98 Oxygen Delivery Method Room Air 12/05/24 15:30 12/05/24 15:45 Temperature Temperature Source Pulse Rate 84 81 Pulse Rate [Lying] Pulse Rate [Sitting (for 1 minute prior to obtaining)] Pulse Rate [Standing (for 1 minute prior to obtaining)] Respiratory Rate 18 17 Respiratory Effort Respiratory Pattern Blood Pressure 104/61 101/60 Blood Pressure [Lying] Blood Pressure [Sitting (for 1 minute prior to obtaining)] Blood Pressure [Standing (for 1 minute prior to obtaining)] Blood Pressure Mean 76 74 Blood Pressure Mean [Lying] Blood Pressure Mean [Sitting (for 1 minute prior to obtaining)] Blood Pressure Mean [Standing (for 1 minute prior to obtaining)] Pulse Ox 97 97 Oxygen Delivery Method Positive well nourished, well developed and no apparent distress General Appearance ED: well developed HEENT Reports normocephalic and head/scalp atraumatic Mouth ED: Yes moist mucous membranes normal Eyes PERRL and EOMs intact bilaterally Neck full ROM and supple Chest Wall inspection of chest normal Resp normal respiratory effort and clear to auscultation bilaterally Cardio regular rate and regular rhythm GI soft to palpation, non-tender, non-distended and no masses Back/Spine normal ROM and normal to inspection Extremity normal to inspection and full ROM Neuro oriented x3, CN's II-XII intact bilaterally, moves all extremities, no focal motor deficits and no sensory deficits noted Sensorium / Orientation: awake and alert Psych mental status grossly normal and thought process normal Skin no rashes or lesions noted and no wounds Physical Exam Const Vital Signs: 12/05/24 13:36 12/05/24 14:32 12/05/24 14:40 Temperature 98.4 F Temperature Source Oral Pulse Rate 48 L Pulse Rate [Lying] 77 Pulse Rate [Sitting (for 1 minute prior to obtaining)] 79 Pulse Rate [Standing (for 1 minute prior to obtaining)] 81 Respiratory Rate 14 Respiratory Effort Normal Non-Labored Respiratory Pattern Normal Blood Pressure 132/72 H Blood Pressure [Lying] 79/48 L Blood Pressure [Sitting (for 1 minute prior to obtaining)] 92/5 L Blood Pressure [Standing (for 1 minute prior to obtaining)] 94/56 L Blood Pressure Mean 92 Blood Pressure Mean [Lying] 58 Blood Pressure Mean [Sitting (for 1 minute prior to obtaining)] 34 Blood Pressure Mean [Standing (for 1 minute prior to obtaining)] 68 Pulse Ox 98 Oxygen Delivery Method Room Air 12/05/24 15:30 12/05/24 15:45 Temperature Temperature Source Pulse Rate 84 81 Pulse Rate [Lying] Pulse Rate [Sitting (for 1 minute prior to obtaining)] Pulse Rate [Standing (for 1 minute prior to obtaining)] Respiratory Rate 18 17 Respiratory Effort Respiratory Pattern Blood Pressure 104/61 101/60 Blood Pressure [Lying] Blood Pressure [Sitting (for 1 minute prior to obtaining)] Blood Pressure [Standing (for 1 minute prior to obtaining)] Blood Pressure Mean 76 74 Blood Pressure Mean [Lying] Blood Pressure Mean [Sitting (for 1 minute prior to obtaining)] Blood Pressure Mean [Standing (for 1 minute prior to obtaining)] Pulse Ox 97 97 Oxygen Delivery Method MDM MDM MDM Narrative Medical decision making narrative: Patient presenting today with complaints of not feeling well. Her son was sprayed painting in the basement yesterday, she began to feel lightheaded and also had midsternal chest pain yesterday evening that has subsided. She has hadnausea and 2 episodes of vomiting today. Cardiac workup obtained, her CBC reveals a hemoglobin of 11.1, creatinine is 1.78, BUN 31, troponin is elevated at 730. Patientgiven p.o. aspirin, EKG does not reveal NSTEMI or ischemia. She does not currently have chest pain.I did speak with cardiology Dr. Bernabe, he recommended a heparin drip which she has been started. She did have tenderness to her abdomen on exam, therefore CT scan of the abdomen and pelvis was obtained and is negative for any acute findings. Chest x-ray negative for cardiopulmonary abnormality. Given concerns for NSTEMI, I spoke with Dr. Weeks,patient will be admitted to the hospital in stable condition. I have personally performed a face to face assessment of the patient and have reviewed the RAMYA Note. I performed a substantive portion of the visit including all aspects of the following. My gutierrez findings include: History is patient presents with complaints of not feeling well since yesterday. Patient states that she was doing some work in her basement and somebody told her that she could use spray paint to paint down there and had used several cansof paint. They were working and it was quite hot in the basement. Then they went to [place] via car and she was driving and started not feeling well. She initially noticed some mild pressure in her chest and then her vision went whitefor a little bit and thought she was in a pass out so she pulled over and her son drove her home. Patient is just not felt wellsince that time. She has hadnausea and dry heaves. She had 2 episodes of diarrhea that were nonbloody. Denies sick contacts. She denies fever. She denied abdominal pain. Currently denies chest pain. She has history of hypertension as well as cholesterol and diabetes.] Exam is [HEENT-PERRLA, EOMI. Cranial nerves II through XII grossly intact. TMs clear. Mucous membranes moist. No adenopathy. Cardiovascular-regular rate and rhythm without murmur or ectopy Lungs-clear to auscultation, chest wall stable without crepitus or subcu emphysema Abdomen-normoactive bowel sounds, soft. Patient has tenderness palpation over the epigastric regionwith guarding. There is no rebound, rigidity, or perio signs. No mass palpated. Extremities-intact ?4, normal range of motion, normal pulses, atraumatic] Medical Decison Making patient presents with multiple vague complaints. EKG obtained arrival showeda sinus rhythm with frequent PACs and just some subtle ST elevation in leads III and aVF that are approximately half a millimeter. CBCwith differential obtained showed a white count 6.9 with hemoglobin 11.1 and platelet count of 169. Chemistries unremarkable. BUN 31 and creat 1.78. LFTs were normal. Troponin was elevated 730. Lipase normal at 60. CT scan of the abdomen pelvis that she unremarkable. Patient also had a chest x-ray that showed no acute disease process. Other additions or changes: [None] Lab Data Labs: Laboratory Results - last 24 hr 12/05/24 14:27 WBC 6.9 RBC 3.50 L Hgb 11.1 L Hct 33.4 L MCV 95.4 MCH 31.7 MCHC 33.2 RDW Std Deviation 46.8 H RDW Coeff of Christina 13.5 Plt Count 169 MPV 9.9 Immature Gran % (Auto) 0.400 Neut % (Auto) 65.8 Lymph % (Auto) 24.2 [place] % (Auto) 8.5 Eos % (Auto) 0.7 Baso % (Auto) 0.4 Absolute Neuts (auto) 4.5 Absolute Lymphs (auto) 1.66 Nucleated RBC % 0 PT 13.6 INR 1.0 APTT 25.8 Sodium 138 Potassium 4.1 Chloride 99 Carbon Dioxide 22.5 Anion Gap 16 H BUN 31 H Creatinine 1.78 H Estim Creat Clear Calc 32.80 L Est GFR (MDRD) Non-Af 30 L BUN/Creatinine Ratio 17.6 Glucose 145 H Calcium 9.3 Total Bilirubin 0.26 Direct Bilirubin 0.15 AST 77 H ALT 27 Alkaline Phosphatase 30 L Troponin T High Sens 730 H* Total Protein 7.1 Albumin 4.3 Globulin 2.8 Lipase 60 Radiography Diagnostic Testing: Clinical Impression(s) from Imaging Studies Chest X-Ray 12/05/24 14:40 IMPRESSION: Mild pulmonary vascular congestion. No focal consolidation. Reading Location: [id number] Abdomen/Pelvis CT 12/05/24 15:11 IMPRESSION: 1. No acute intra-abdominal abnormality. 2. Colonic diverticulosis, without additional findings to suggest acute diverticulitis. Reading Location: [id number] EKG Initial EKG: Comments: 80 bpm, normal sinus rhythm, no ST elevation, interpreted by attending ED physician DARLINE GREGORIO Narrative Medical decision making narrative: Patient presenting today with for complaints of not feeling well. Her son was sprayed painting in the basement yesterday, she began to feel lightheaded and also had midsternal chest pain yesterday evening that has subsided. She has had nausea and 2 episodes of vomiting today. Cardiac workup obtained, her CBC reveals a hemoglobin of 11.1, creatinine is 1.78, BUN 31, troponin is elevated at 730. Patient given p.o. aspirin, EKG does not reveal NSTEMI or ischemia. I did speak with cardiology Dr. Bernabe, he recommended a heparin drip which she has been started on. She did have tenderness to her abdomen on exam, therefore CT scan of the abdomen and pelvis was obtained and is negative for any acute findings. Chest x-ray negative for cardiopulmonary abnormality. I have personally performed a face to face assessment of the patient and have reviewed the RAMYA Note. I performed a substantive portion of the visit including all aspects of the following. My gutierrez findings include: History is patient presents with complaints of not feeling well since yesterday. Patient states that she was doing some work in her basement and somebody told her that she could use spray paint to paint down there and had used several cans of paint. They were working and it was quite hot in the basement. Then they went to [place] via car and she was driving and started not feeling well. She initially noticed some mild pressure in her chest and then her vision went white for a little bit and thought she was in a pass out so she pulled over and her son drove her home. Patient is just not felt well since that time. She has had nausea and dry heaves. She had 2 episodes of diarrhea that were nonbloody. Denies sick contacts. She denies fever. She denied abdominal pain. Currently denies chest pain. She has history of hypertension as well as cholesterol and diabetes.] Exam is [HEENT-PERRLA, EOMI. Cranial nerves II through XII grossly intact. TMs clear. Mucous membranes moist. No adenopathy. Cardiovascular-regular rate and rhythm without murmur or ectopy Lungs-clear to auscultation, chest wall stable without crepitus or subcu emphysema Abdomen-normoactive bowel sounds, soft. Patient has tenderness palpation over the epigastric regionwith guarding. There is no rebound, rigidity, or perio signs. No mass palpated. Extremities-intact ?4, normal range of motion, normal pulses, atraumatic] Medical Decison Making [patient presents with multiple vague complaints. EKG obtained arrival showed a sinus rhythm with frequent PACs and just some subtle ST elevation in leads III and aVF that are approximately half a millimeter. CBC with differential obtained showed a white count 6.9 with hemoglobin 11.1 and platelet count of 169. Chemistries unremarkable. BUN 31 and creat 1.78. LFTs were normal. Troponin was elevated 730. Lipase normal at 60. CT scan of the abdomen pelvis that she unremarkable. Patient also had a chest x-ray that showed no acute disease process.] Other additions or changes: [None] Lab Data Attestation: I reviewed the patient's lab results. Labs: Laboratory Results - last 24 hr 12/05/24 14:27 WBC 6.9 RBC 3.50 L Hgb 11.1 L Hct 33.4 L MCV 95.4 MCH 31.7 MCHC 33.2 RDW Std Deviation 46.8 H RDW Coeff of Christina 13.5 Plt Count 169 MPV 9.9 Immature Gran % (Auto) 0.400 Neut % (Auto) 65.8 Lymph % (Auto) 24.2 [place] % (Auto) 8.5 Eos % (Auto) 0.7 Baso % (Auto) 0.4 Absolute Neuts (auto) 4.5 Absolute Lymphs (auto) 1.66 Nucleated RBC % 0 PT 13.6 INR 1.0 APTT 25.8 Sodium 138 Potassium 4.1 Chloride 99 Carbon Dioxide 22.5 Anion Gap 16 H BUN 31 H Creatinine 1.78 H Estim Creat Clear Calc 32.80 L Est GFR (MDRD) Non-Af 30 L BUN/Creatinine Ratio 17.6 Glucose 145 H Calcium 9.3 Total Bilirubin 0.26 Direct Bilirubin 0.15 AST 77 H ALT 27 Alkaline Phosphatase 30 L Troponin T High Sens 730 H* Total Protein 7.1 Albumin 4.3 Globulin 2.8 Lipase 60 Radiography Diagnostic Testing: Clinical Impression(s) from Imaging Studies Chest X-Ray 12/05/24 14:40 IMPRESSION: Mild pulmonary vascular congestion. No focal consolidation. Reading Location: [facility] Abdomen/Pelvis CT 12/05/24 15:11 IMPRESSION: 1. No acute intra-abdominal abnormality. 2. Colonic diverticulosis, without additional findings to suggest acute diverticulitis. Reading Location: [facility] 1 view chest x-ray obtained interpreted by myself as no evidence of infiltrate or pneumothorax or acute disease process. Radiology felt there was mild pulmonary vascular congestion but no focal consolidation. EKG Initial EKG: Attestation: I personally reviewed and interpreted this EKG as follows: Comments: 80 bpm, normal sinus rhythm, frequent PACs. Subtle half millimeter ST elevation in leads III and aVF Prior EKG tracings: not available for review Discharge Plan Dx/Rx/DC Orders Clinical Impression: Chest pain, Non-ST elevation GA (NSTEMI) Disposition Disposition: Acute Care Hospital [facility] What to do if you have Problems For any increased pain, shortness of breath, bleeding, nausea or vomiting, chest pain, or any unexpected problems, contact your Primary Care Provider. Call [facility] ([phone]) or report to the closest Emergency Room. Call 911 if necessary. 12/05/24 1700 Cosigner Signature (if applicable): 12/05/24 2626 CC: Dr. Moshe Key MD ~ Signed [facility]07-13-2025 History and physical note Author Calista Weeks [facility] Note Date/Time December 05, 2024 5:19 pm [facility] Medical Records Department [address] [place] [address] H&P Exam - Hospitalist 12/05/24 1654 MR#: [id number] Acct: [id number] Name: YODIT LANDIN VIVIAN Rep #:[id number] : 1955 69 From: Calista Weeks MD PCP: Dr. Moshe Key MD Status:ADM [facility] H[facility] - General General Date of Admission: 12/05/24 Date of Service: 12/05/24 Chief Complaint: Chest pain HPI Narrative The patient is a 69 y/o F w/ PMHx: Obesity, Hypothyroidism, GERD, HTN, HLD, Former tobacco use, Chronic anemia, CKD stage III unclear subtype per GFR trending who presents to the [facility] ED on 12/05/2024 with history of recent potential pain fume exposure over the last 48 hours with onsetof lightheadedness and dizziness especially with standing with onset of nausea as well as episode of midsternal chest discomfort the day prior with concurrent nausea and a bout of emesis but no dyspnea or diaphoresis resolving but given ongoing vague complaints prompted eventual ED evaluation. She notes the chest discomfort did not radiate and had no specific associated symptoms aside from the nausea and bouts of emesis which have abated. She described the discomfort as aching but severe enough to be 10 out of 10 in severity. She denies any current recurrent chest pain since then. She notes it lasted approximately 1 hour. Workup in the ED included T98.4, heart rate 48, BP 132/72, respiratory rate 14, 98% on room air, orthostatics with unchanged heart rate/BP not significantly widened but systolic 79 very to systolic 94, BP as low as 79/48 with orthostatics, respiratory rate 14, 98% on room air, most recent repeat vitals heart rate 81, BP 101/60, respiratory rate 17, 97% on room air, CBC with WC 6.9, hemoglobin 0.1, MCV 95.4, platelet 169 without marked shift, unremarkable coags, CMP with anion gap 16, BUN/creatinine 31/1.78, GFR 30, glucose 145, AST 77, alk phos 30, initial troponin 730, chest x-ray with mild vascular pulmonary congestion with no acute cardiopulmonary findings otherwise, CT abdomen and pelvis with no acute intra-abdominal finding with chronic diverticulosis with noted clear lung bases of note, EKG with sinus rhythm with no acute evidence of ischemia. ED physician did discuss case with day guard who recommended heparin drip. [facility] Medical History Wears partial dentures Wears contact lenses Wears glasses Post-menopausal Thyroid disease Diabetes Arthritis High cholesterol Hemochromatosis Injury of head and neck Gastric reflux Former smoker History of pain when walking Hypertension History of echocardiogram Dehydration Nausea vomiting and diarrhea Home Medications ?Medication ?Instructions ?Recorded ?Last Taken ?Type chlorthalidone 25 mg tablet 25 mg PO DAILY 01/16/24 History furosemide 20 mg tablet 20 mg PO DAILY 01/16/2408/16 History irbesartan 300 mg tablet 300 mg PO DAILY 01/16/2409/16 History levothyroxine 75 mcg capsule 150 mcg PO DAILY 01/16/24 03/29/24 History metformin 1,000 mg tablet 1,000 mg PO .QAM 01/16/24 History omega 9-xec-pgt-fish oil 1,200 mg 1 cap PO DAILY 01/1503/28/24 History (144 mg-216 mg) capsule (Fish Oil) omeprazole 40 mg capsule,delayed 40 mg PO QDAY 4 03/29/24 History release vitamin E (dl, acetate) 180 mg 180 mg PO DAILY 4 03/28/24 History (400 unit) capsule digestive enzymes 1 tab PO TID 03/15/24 History ergocalciferol (vitamin D2) 1,250 1,250 mcg PO QWEEK 1 03/27/24 History mcg (50,000 unit) capsule (Vitamin D2) metformin 500 mg tablet 500 mg PO .1500, 2100 03/28/24 History vit A 750 mcg-vit C 150 mg-D3 1 cap PO TID 03/15/24 History 31.25 ebr-wcjg-ytqqduhzl-quercet capsule (Immune Essentials Daily) acetaminophen 500 mg tablet 500 mg PO Q6H #30 tabs 10/16 Unknown Rx fenofibrate 160 mg tablet 160 mg PO QDAY 07/02/24 Unkn own History rosuvastatin 10 mg tablet 10 mg PO QHS 09/23/24 Unknow n History Allergy/AdvReac Type Severity Reaction Status Date / Time codeine AdvReac Intermediate Vomiting Verified 12/05/24 13:38 sulfamethoxazole (From AdvReac Intermediate Vomiting Verified 12/05/24 13:38 Bactrim) trimethoprim (From Bactrim) AdvReac Intermediate Vomiting Verified 12/05/24 13:38 Family History (Updated 12/05/24 @ 17:[address] Calista Weeks MD) Mother Ovarian cancer Father CAD (coronary artery disease) Heart disease Hypertension Myocardial infarction Surgical History History of surgery on right wrist Hx of repair of right rotator cuff History of 2 sections Hx of ovarian cystectomy Hx of hysterectomy Hx of tonsillectomy Social History (Updated 12/05/24 @ 17:[address] Calista Weeks MD) household members: none Smoking Status: Former smoker how long ago did patient quit smoking: Quit 7 years prior, approximate 1 pack/day since teen until quit. alcohol intake: never substance use type: does not use ROS ROS Narrative Admission Review of Systems: CONSTITUTIONAL: No weight loss, fever, chills, + weakness or fatigue. HEENT: Eyes: No visual loss, blurred vision, double vision or yellow sclerae. Ears, Nose, Throat: No hearing loss, sneezing, congestion, runny nose or sore throat. SKIN: No rash or itching, lesions, wounds. CARDIOVASCULAR: + Chest pain. No palpitations, edema, orthopnea, syncopal events. RESPIRATORY: No shortness of breath, cough or sputum, wheezing, hemoptysis. GASTROINTESTINAL: + anorexia, nausea, vomiting. No diarrhea, abdominal pain, melena, BRBPR. GENITOURINARY: No dysuria, frequency, urgency or retention. NEUROLOGICAL: No headache, dizziness, syncope, paralysis, ataxia, numbness or tingling in the extremities, focal weakness, change in bowel or bladder control,seizure. MUSCULOSKELETAL: + muscle, back pain, joint pain or stiffness. HEMATOLOGIC: + Chronic anemia, no specific easy history of bleeding or bruising. LYMPHATICS: No enlarged nodes. No history of splenectomy. PSYCHIATRIC: No history of depression or anxiety. ENDOCRINOLOGIC: No reports of sweating, cold or heat intolerance. No polyuria orpolydipsia. ALLERGIES: No history of asthma, hives, eczema or rhinitis. Vital Signs Vital Signs Vital Signs: 12/05/24 13:36 12/05/24 14:32 12/05/24 14:40 Temperature 98.4 F Temperature Source Oral Pulse Rate 48 L Pulse Rate [Lying] 77 Pulse Rate [Sitting (for 1 minute prior to obtaining)] 79 Pulse Rate [Standing (for 1 minute prior to obtaining)] 81 Respiratory Rate 14 Respiratory Effort Normal Non-Labored Respiratory Pattern Normal Blood Pressure 132/72 H Blood Pressure [Lying] 79/48 L Blood Pressure [Sitting (for 1 minute prior to obtaining)] 92/5 L Blood Pressure [Standing (for 1 minute prior to obtaining)] 94/56 L Blood Pressure Mean 92 Blood Pressure Mean [Lying] 58 Blood Pressure Mean [Sitting (for 1 minute prior to obtaining)] 34 Blood Pressure Mean [Standing (for 1 minute prior to obtaining)] 68 Pulse Ox 98 Oxygen Delivery Method Room Air 12/05/24 15:30 12/05/24 15:45 Temperature Temperature Source Pulse Rate 84 81 Pulse Rate [Lying] Pulse Rate [Sitting (for 1 minute prior to obtaining)] Pulse Rate [Standing (for 1 minute prior to obtaining)] Respiratory Rate 18 17 Respiratory Effort Respiratory Pattern Blood Pressure 104/61 101/60 Blood Pressure [Lying] Blood Pressure [Sitting (for 1 minute prior to obtaining)] Blood Pressure [Standing (for 1 minute prior to obtaining)] Blood Pressure Mean 76 74 Blood Pressure Mean [Lying] Blood Pressure Mean [Sitting (for 1 minute prior to obtaining)] Blood Pressure Mean [Standing (for 1 minute prior to obtaining)] Pulse Ox 97 97 Oxygen Delivery Method Weight Weight: 208 lb 8 oz Body Mass Index (BMI) 35.8 Physical Exam Narrative Physical Examination: General: Awake, alert, oriented x 3 and cooperative, seated upright in the ED bed, denies any current chest discomfort, very anxious with discussions about current presentation and plan of care. Skin: Normal color, normal turgor, no icterus, no cyanosis except occasional stage ecchymoses, abrasion. HEENT: AT/NC, EOMI, PERRLA, mildly dry MM, no carotid bruits or JVD noted. Lungs: Mildly diminished, greater bases, mildly increased respiratory rate but no distress, no appreciated rales, ronchi or wheezing. Heart: Regular rate and rhythm; no gallop, rub audible. Abdomen: Soft, obese, NTTP, ND, hyperactive BS, no HSM. Extremities: No cyanosis, no clubbing, no significant distal pitting edema. Neurological: Patient awake, alert, oriented as noted, cognitive function intact; pupils equally reactive to light and accommodation, cranial nerves grossly normal, moving all 4 extremities, no focal deficits, strength moderatelyglobally decreased secondary to acute presentation complaints. Psychiatric: Affect appears very anxious, tearful with discussions, does not have underlying history of anxiety or depression. Results Lab / Micro Data 12/05/24 14:27 12/05/24 14:27 Labs: Laboratory Results - last 24 hr 12/05/24 14:27: WBC 6.9, RBC 3.50 L, Hgb 11.1 L, Hct 33.4 L, MCV 95.4, MCH 31.7,MCHC 33.2, RDW Std Deviation 46.8 H, RDW Coeff of Christina 13.5, Plt Count 169, MPV 9.9, Immature Gran % (Auto) 0.400, Neut % (Auto) 65.8, Lymph % (Auto) 24.2, [place]% (Auto) 8.5, Eos % (Auto) 0.7, Baso % (Auto) 0.4, Absolute Neuts (auto) 4.5, Absolute Lymphs (auto) 1.66, Nucleated RBC % 0, PT 13.6, INR 1.0, APTT 25.8, Sodium 138, Potassium 4.1, Chloride 99, Carbon Dioxide 22.5, Anion Gap 16 H, BUN31 H, Creatinine 1.78 H, Estim Creat Clear Calc 32.80 L, Est GFR (MDRD) Non-Af 30 L, BUN/Creatinine Ratio 17.6, Glucose 145 H, Calcium 9.3, Total Bilirubin 0.26, Direct Bilirubin 0.15, AST 77 H, ALT 27, Alkaline Phosphatase 30 L, Troponin T High Sens 730 H*, Total Protein 7.1, Albumin 4.3, Globulin 2.8, [id number] Imaging Radiology Impression Chest X-Ray 12/05/24 14:40 IMPRESSION: Mild pulmonary vascular congestion. No focal consolidation. Reading Location: [id number] Abdomen/Pelvis CT 12/05/24 15:11 IMPRESSION: 1. No acute intra-abdominal abnormality. 2. Colonic diverticulosis, without additional findings to suggest acute diverticulitis. Reading Location: [id number] Assessment & Plan Assessment/Plan (1) Non-ST elevation GA (NSTEMI): PLAN: Plan The patient is a 69 y/o F w/ PMHx: Obesity, Hypothyroidism, GERD, HTN, HLD, Former tobacco use, Chronic anemia, CKD stage III unclear subtype per GFR trending who [facility] [facility] ED on 12/05/2024 with history of recent potential pain fume exposure over the last 48 hours with onsetof lightheadedness and dizziness especially with standing with onset of nausea as well as episode of midsternal chest discomfort the day prior with concurrent nausea and a bout of emesis but no dyspnea or diaphoresis resolving but given ongoing vague complaints prompted eventual ED evaluation. #1. Chest Pain w/ Acute NSTEMI: EKG in ED w/ sinus rhythm with no acute evidence of ischemia, CXR w/ mild congestion with no acute cardiopulmonary findings otherwise. Trop elevated, initial 730. Will admit to PCU, maintain on amonitored bed, continue serial cardiac enzymes and EKGs. Obtain magnesium level upon admission. Continue heparin drip. Continue medical management w/ asa, statin w/ AM FLP. Given orthostasis and hypotension holding all hypertensive regimen. Repeat orthostatics in AM. ECHO requested. Cardiology consulted, continue judicious hydration with n.p.o. status at midnight. Pending repeat 12/06/2024 renal function may need to delay cardiac catheterization if renal function not improved to baseline given LAURA presentation concurrently. BNP requested. ASA. #2. LAURA on Chronic Kidney Disease Stage III unclear subtype per GFR trend secondary to likely GI losses with recent nausea and emesis bouts as noted/nephrotoxic medication: Admission BUN/Cr 31/1.78, GFR 30, baseline renal function primarily 1.1-1.2, repeat BMP in AM. #3. Chronic normocytic anemia: Admission hemoglobin 11.1, MCV 95.4 however significantly dehydrated, baseline hemoglobin noted previously primarily more recently 8-9 but labs distant and last noted 03/30/2024 hemoglobin 9.6 at that time, will continue to trend. #4. Hypertension: Given presentation with orthostasis, acute kidney injury and low blood pressure holding all hypertensive regimen, add back once clinically appropriate. #5. Hyperlipidemia: Continue home statin and fenofibrate regimen. AM FLP. #6. Diabetes mellitus type II: Hold oral home regimen, ADA diet until n.p.o. status, HgbA1c requested given #1 presentation, accu checks w/ ISS. #7. Obesity: Weight loss and lifestyle changes encouraged. #8. Former tobacco use: Encourage continued tobacco cessation. #9. GERD: Will maintain on PPI. #10. Hypothyroidism: Will continue patient on levothyroxine regimen. #11. DVT prophylaxis: Heparin drip to be continued. #12. CODE status: Patient KEWSI is not in place but she notes she would want her sister Kanchan to be her medical decision-maker if necessary and living will is currently in place. Discussed CODE status at length including difference between FULL code, DNR-CCA and DNR-CC status. Patient supervisor in charge also present for discussions and assisted in calming patient as she was very stressed and anxiousoccasionally tearful during these discussions. Following discussions about the differences in these status, requested Full Code status. Advanced Care Planning Face to Face Time: 16 minutes. Charges/Coding Visit Charges Inpatient E&M: 15019 Init Hosp L3 Procedures Hospitalists Procedures: 85651 Advncd Care Plan 30 Min 12/05/24 1712 <Electronically signed by Calista Weeks MD> Cosigner Signature (if applicable): CC: Dr. Calista Weeks MD; Dr. Moshe Key MD~ Signed [facility] Work Phone: 1(441) 311-668307-13-2025 Evaluation note* Diagnosis Onset Date Resolution Status Admit Date Non-ST elevation GA (NSTEMI) resolve d December 05, 2024 4:55pm Anemia inactive December 05 4:55pm CKD (chronic kidney disease) inactiv e December 05, 2024 4:55pm Diabetes inactive December 05 4:55pm High cholesterol inactive November 4:55pm Hypertension inactive December 05, 2 025 4:55pm Hemochromatosis acute November 9:23am Stented coronary artery December 06, 2024 chronic December 13, 2024 9:23am Diabetes inactive December 13 9:23am High cholesterol inactive November 9:23am Hypertension inactive December 13, 2 025 9:23am [facility] Work Phone: 1(606) 922-594407-13-2025 Evaluation note* Diagnosis Onset Date Resolution Status Admit Date Non-ST elevation GA (NSTEMI) resolve d December 05, 2024 4:55pm Anemia inactive December 05 4:55pm CKD (chronic kidney disease) inactiv e December 05, 2024 4:55pm Diabetes inactive December 05 4:55pm High cholesterol inactive November 4:55pm Hypertension inactive December 05, 025 4:55pm Hemochromatosis acute November 9:23am Stented coronary artery December 06, 2024 chronic December 13, 2024 9:23am Diabetes inactive December 13 9:23am High cholesterol inactive November 9:23am Hypertension inactive December 13, 025 9:23am Osteoarthritis of right knee acute February 22, 2025 10:08am [employer] Work Phone: 1(181) 384-580607-13-2025 Evaluation note* Diagnosis Onset Date Resolution Status Admit Date Diabetes chronic December 05 4:55pm High cholesterol chronic November 4:55pm Hypertension chronic December 05, 025 4:55pm Non-ST elevation GA (NSTEMI) resolve d December 05, 2024 4:55pm Anemia inactive December 05 4:55pm CKD (chronic kidney disease) inactiv e December 05, 2024 4:55pm Diabetes chronic December 13 9:23am Hemochromatosis chronic November 9:23am High cholesterol chronic November 9:23am Hypertension chronic December 13, 025 9:23am Stented coronary artery December 06, 2024 chronic December 13, 2024 9:23am Osteoarthritis of right knee acute February 22, 2025 10:08am Diabetes chronic March 14, 2025 10:30am Hemochromatosis chronic February 242024 10:30am High cholesterol chronic March 14, 2025 10:30am Hypertension chronic February 10:30am Stented coronary artery December 06, 2024March 14, 2025 10:30am [employer] [facility] Work Phone: 1(330) 636-109407-13-2025 History and physical note [facility] Medical Records Department [address] [place] [address] H&P Exam - Hospitalist 12/05/24 1656 MR#: [id number] Acct: [id number] Name: MUSHTAQYODIT ANN Rep #:[id number] : 1955 69 From: Calista Weeks MD PCP: Dr. Moshe Key MD Status:ADM IN Location: [facility] HAL155- 1 HPI - General General Date of Admission: 12/05/24 Date of Service: 12/05/24 Chief Complaint: Chest pain HPI Narrative The patient is a 69 y/o F w/ PMHx: Obesity, Hypothyroidism, GERD, HTN, HLD, Former tobacco use, Chronic anemia, CKD stage III unclear subtype per GFR trending who presents to the [facility] ED on 12/05/2024 with history of recent potential pain fume exposure over the last 48 hours with onsetof lightheadedness and dizziness especially with standing with onset of nausea as well as episode of midsternal chest discomfort the day prior with concurrent nausea and a bout of emesis but no dyspnea or diaphoresis resolving but given ongoing vague complaints prompted eventual ED evaluation. She notes the chest discomfort did not radiate and had no specific associated symptoms aside fromthe nausea and bouts of emesis which have abated. She described the discomfort as aching but severeenough to be 10 out of 10 in severity. She denies any current recurrent chest pain since then. She notes it lasted approximately 1 hour. Workup in the ED included T98.4, heart rate 48, BP 132/72, respiratory rate 14, 98% on room air, orthostatics with unchanged heart rate/BP not significantly widened but systolic 79 very to systolic 94, BP as low as 79/48 with orthostatics, respiratory rate 14, 98% on room air, most recent repeat vitals heart rate 81, BP 101/60, respiratory rate 17, 97% on roomair, CBC with WC 6.9, hemoglobin 0.1, MCV 95.4, platelet 169 without marked shift, unremarkable coags, CMP with anion gap 16, BUN/creatinine 31/1.78, GFR 30, glucose 145, AST 77, alk phos 30, initialtroponin 730, chest x-ray with mild vascular pulmonary congestion with no acute cardiopulmonary findings otherwise, CT abdomen and pelvis with no acute intra-abdominal finding with chronic diverticulosis with noted clear lung bases of note, EKG with sinus rhythm with no acute evidence of ischemia. ED physician did discuss case with day guard who recommended heparin drip. [facility] Medical History Wears partial dentures Wears contact lenses Wears glasses Post-menopausal Thyroid disease Diabetes Arthritis High cholesterol Hemochromatosis Injury of head and neck Gastric reflux Former smoker History of pain when walking Hypertension History of echocardiogram Dehydration Nausea vomiting and diarrhea Home Medications ?Medication ?Instructions ?Recorded ?Last Taken ?Type chlorthalidone 25 mg tablet 25 mg PO DAILY 01/16/24 History furosemide 20 mg tablet 20 mg PO DAILY 01/16/2408/16 History irbesartan 300 mg tablet 300 mg PO DAILY 01/16/2409/16 History levothyroxine 75 mcg capsule 150 mcg PO DAILY 01/16/24 03/29/24 History metformin 1,000 mg tablet 1,000 mg PO .QAM 01/16/24 History omega 6-due-ywf-fish oil 1,200 mg 1 cap PO DAILY 01/1503/28/24 History (144 mg-216 mg) capsule (Fish Oil) omeprazole 40 mg capsule,delayed 40 mg PO QDAY 4 03/29/24 History release vitamin E (dl, acetate) 180 mg 180 mg PO DAILY 4 03/28/24 History (400 unit) capsule digestive enzymes 1 tab PO TID 03/15/24 History ergocalciferol (vitamin D2) 1,250 1,250 mcg PO QWEEK 1 03/27/24 History mcg (50,000 unit) capsule (Vitamin D2) metformin 500 mg tablet 500 mg PO .1500, 2100 03/28/24 History vit A 750 mcg-vit C 150 mg-D3 1 cap PO TID 03/15/24 History 31.25 jcc-kxuf-coqdemwfe-quercet capsule (Immune Essentials Daily) acetaminophen 500 mg tablet 500 mg PO Q6H #30 tabs 10/16 Unknown Rx fenofibrate 160 mg tablet 160 mg PO QDAY 07/02/24 Unkn own History rosuvastatin 10 mg tablet 10 mg PO QHS 09/23/24 Unknow n History Allergy/AdvReac Type Severity Reaction Status Date / Time codeine AdvReac Intermediate Vomiting Verified 12/05/24 13:38 sulfamethoxazole (From AdvReac Intermediate Vomiting Verified 12/05/24 13:38 Bactrim) trimethoprim (From Bactrim) AdvReac Intermediate Vomiting Verified 12/05/24 13:38 Family History (Updated 12/05/24 @ 17:[address] Calista Weeks MD) Mother Ovarian cancer Father CAD (coronary artery disease) Heart disease Hypertension Myocardial infarction Surgical History History of surgery on right wrist Hx of repair of right rotator cuff History of 2 sections Hx of ovarian cystectomy Hx of hysterectomy Hx of tonsillectomy Social History (Updated 12/05/24 @ 17:[address] Calista Weeks MD) household members: none Smoking Status: Former smoker how long ago did patient quit smoking: Quit 7 years prior, approximate 1 pack/day since teen until quit. alcohol intake: never substance use type: does not use ROS ROS Narrative Admission Review of Systems: CONSTITUTIONAL: No weight loss, fever, chills, + weakness or fatigue. HEENT: Eyes: No visual loss, blurred vision, double vision or yellow sclerae. Ears, Nose, Throat: No hearing loss, sneezing, congestion, runny nose or sore throat. SKIN: No rash or itching, lesions, wounds. CARDIOVASCULAR: + Chest pain. No palpitations, edema, orthopnea, syncopal events. RESPIRATORY: No shortness of breath, cough or sputum, wheezing, hemoptysis. GASTROINTESTINAL: + anorexia, nausea, vomiting. No diarrhea, abdominal pain, melena, BRBPR. GENITOURINARY: No dysuria, frequency, urgency or retention. NEUROLOGICAL: No headache, dizziness, syncope, paralysis, ataxia, numbness or tingling in the extremities, focal weakness, change in bowel or bladder control,seizure. MUSCULOSKELETAL: + muscle, back pain, joint pain or stiffness. HEMATOLOGIC: + Chronic anemia, no specific easy history of bleeding or bruising. LYMPHATICS: No enlarged nodes. No history of splenectomy. PSYCHIATRIC: No history of depression or anxiety. ENDOCRINOLOGIC: No reports of sweating, cold or heat intolerance. No polyuria orpolydipsia. ALLERGIES: No history of asthma, hives, eczema or rhinitis. Vital Signs Vital Signs Vital Signs: 12/05/24 13:36 12/05/24 14:32 12/05/24 14:40 Temperature 98.4 F Temperature Source Oral Pulse Rate 48 L Pulse Rate [Lying] 77 Pulse Rate [Sitting (for 1 minute prior to obtaining)] 79 Pulse Rate [Standing (for 1 minute prior to obtaining)] 81 Respiratory Rate 14 Respiratory Effort Normal Non-Labored Respiratory Pattern Normal Blood Pressure 132/72 H Blood Pressure [Lying] 79/48 L Blood Pressure [Sitting (for 1 minute prior to obtaining)] 92/5 L Blood Pressure [Standing (for 1 minute prior to obtaining)] 94/56 L Blood Pressure Mean 92 Blood Pressure Mean [Lying] 58 Blood Pressure Mean [Sitting (for 1 minute prior to obtaining)] 34 Blood Pressure Mean [Standing (for 1 minute prior to obtaining)] 68 Pulse Ox 98 Oxygen Delivery Method Room Air 12/05/24 15:30 12/05/24 15:45 Temperature Temperature Source Pulse Rate 84 81 Pulse Rate [Lying] Pulse Rate [Sitting (for 1 minute prior to obtaining)] Pulse Rate [Standing (for 1 minute prior to obtaining)] Respiratory Rate 18 17 Respiratory Effort Respiratory Pattern Blood Pressure 104/61 101/60 Blood Pressure [Lying] Blood Pressure [Sitting (for 1 minute prior to obtaining)] Blood Pressure [Standing (for 1 minute prior to obtaining)] Blood Pressure Mean 76 74 Blood Pressure Mean [Lying] Blood Pressure Mean [Sitting (for 1 minute prior to obtaining)] Blood Pressure Mean [Standing (for 1 minute prior to obtaining)] Pulse Ox 97 97 Oxygen Delivery Method Weight Weight: 208 lb 8 oz Body Mass Index (BMI) 35.8 Physical Exam Narrative Physical Examination: General: Awake, alert, oriented x 3 and cooperative, seated upright in the ED bed, denies any current chest discomfort, very anxious with discussions about current presentation and plan of care. Skin: Normal color, normal turgor, no icterus, no cyanosis except occasional stage ecchymoses, abrasion. HEENT: AT/NC, EOMI, PERRLA, mildly dry MM, no carotid bruits or JVD noted. Lungs: Mildly diminished, greater bases, mildly increased respiratory rate but no distress, no appreciated rales, ronchi or wheezing. Heart: Regular rate and rhythm; no gallop, rub audible. Abdomen: Soft, obese, NTTP, ND, hyperactive BS, no HSM. Extremities: No cyanosis, no clubbing, no significant distal pitting edema. Neurological: Patient awake, alert, oriented as noted, cognitive function intact; pupils equally reactive to light and accommodation, cranial nerves grossly normal, moving all 4 extremities, no focaldeficits, strength moderatelyglobally decreased secondary to acute presentation complaints. Psychiatric: Affect appears very anxious, tearful with discussions, does not have underlying history of anxiety or depression. Results Lab / Micro Data 12/05/24 14:27 12/05/24 14:27 Labs: Laboratory Results - last 24 hr 12/05/24 14:27: WBC 6.9, RBC 3.50 L, Hgb 11.1 L, Hct 33.4 L, MCV 95.4, MCH 31.7,MCHC 33.2, RDW Std Deviation 46.8 H, RDW Coeff of Christina 13.5, Plt Count 169, MPV 9.9, Immature Gran % (Auto) 0.400, Neut % (Auto) 65.8, Lymph % (Auto) 24.2, [place]% (Auto) 8.5, Eos % (Auto) 0.7, Baso % (Auto) 0.4, Absolute Neuts (auto) 4.5, Absolute Lymphs (auto) 1.66, Nucleated RBC % 0, PT 13.6, INR 1.0, APTT 25.8, Sodium 138, Potassium 4.1, Chloride 99, Carbon Dioxide 22.5, Anion Gap 16 H, BUN31 H, Creatinine 1.78 H, Estim Creat Clear Calc 32.80 L, Est GFR (MDRD) Non-Af 30 L, BUN/Creatinine Ratio 17.6, Glucose 145 H, Calcium 9.3, Total Bilirubin 0.26, Direct Bilirubin 0.15, AST 77 H, ALT 27, Alkaline Phosphatase 30 L, Troponin T High Sens 730 H*, Total Protein 7.1, Albumin 4.3, Globulin 2.8, [id number] Imaging Radiology Impression Chest X-Ray 12/05/24 14:40 IMPRESSION: Mild pulmonary vascular congestion. No focal consolidation. Reading Location: [facility] Abdomen/Pelvis CT 12/05/24 15:11 IMPRESSION: 1. No acute intra-abdominal abnormality. 2. Colonic diverticulosis, without additional findings to suggest acute diverticulitis. Reading Location: [id number] Assessment & Plan Assessment/Plan (1) Non-ST elevation GA (NSTEMI): PLAN: Plan The patient is a 69 y/o F w/ PMHx: Obesity, Hypothyroidism, GERD, HTN, HLD, Former tobacco use, Chronic anemia, CKD stage III unclear subtype per GFR trending who presents to the [facility] ED on 12/05/2024 with history of recent potential pain fume exposure over the last 48 hours with onsetof lightheadedness and dizziness especially with standing with onset of nausea as well as episode of midsternal chest discomfort the day prior with concurrent nausea and a bout of emesis but no dyspnea or diaphoresis resolving but given ongoing vague complaints prompted eventual ED evaluation. #1. Chest Pain w/ Acute NSTEMI: EKG in ED w/ sinus rhythm with no acute evidence of ischemia, CXR w/ mild congestion with no acute cardiopulmonary findings otherwise. Trop elevated, initial 730. Willadmit to PCU, maintain on amonitored bed, continue serial cardiac enzymes and EKGs. Obtain magnesium level upon admission. Continue heparin drip. Continue medical management w/ asa, statin w/ AM FLP.Given orthostasis and hypotension holding all hypertensive regimen. Repeat orthostatics in AM. ECHOrequested. Cardiology consulted, continue judicious hydration with n.p.o. status at midnight. Pending repeat 12/06/2024 renal function may need to delay cardiac catheterization if renal function not improved to baseline given LAURA presentation concurrently. BNP requested. ASA. #2. LAURA on Chronic Kidney Disease Stage III unclear subtype per GFR trend secondary to likely GI losses with recent nausea and emesis bouts as noted/nephrotoxic medication: Admission BUN/Cr 31/1.78, GFR 30, baseline renal function primarily 1.1-1.2, repeat BMP in AM. #3. Chronic normocytic anemia: Admission hemoglobin 11.1, MCV 95.4 however significantly dehydrated, baseline hemoglobin noted previously primarily more recently 8-9 but labs distant and last noted 03/30/2024 hemoglobin 9.6 at that time, will continue to trend. #4. Hypertension: Given presentation with orthostasis, acute kidney injury and low blood pressure holding all hypertensive regimen, add back once clinically appropriate. #5. Hyperlipidemia: Continue home statin and fenofibrate regimen. AM FLP. #6. Diabetes mellitus type II: Hold oral home regimen, ADA diet until n.p.o. status, HgbA1c requested given #1 presentation, accu checks w/ ISS. #7. Obesity: Weight loss and lifestyle changes encouraged. #8. Former tobacco use: Encourage continued tobacco cessation. #9. GERD: Will maintain on PPI. #10. Hypothyroidism: Will continue patient on levothyroxine regimen. #11. DVT prophylaxis: Heparin drip to be continued. #12. CODE status: Patient HCPOA is not in place but she notes she would want her sister Kanchan to be her medical decision-maker if necessary and living will is currently in place. Discussed CODE status at length including difference between FULL code, DNR-CCA and DNR-CC status. Patient supervisor in charge also present for discussions and assisted in calming patient as she was very stressed and anxiousoccasionally tearful during these discussions. Following discussions about the differences in these status, requested Full Code status. Advanced Care Planning Face to Face Time: 16 minutes. Charges/Coding Visit Charges Inpatient E&M: 69216 Init Hosp L3 Procedures Hospitalists Procedures: 28024 Advncd Care Plan 30 Min 12/05/24 9039 Cosigner Signature (if applicable): CC: Dr. Calista Weeks MD; Dr. Moshe Key MD~ Signed [facility]07-13-2025 Radiology Diagnostic study note [facility] Imaging Services [address] [place] [address] Abdomen/Pelvis W IV Cont ONLY MR#: [id number] Acct: [id number] Name: YODIT LANDIN Rep #: [id number] : 1955 F 69 From: Zayra Copeland MD PCP: Dr. Moshe Key MD Status: REG ER Study:Abdomen/Pelvis W IV Cont ONLY Date of E xam: 12/05/24 Exam# [id number] Ordering Dr: Neha Sotelo DO PROCEDURE: ABDOMEN/PELVIS W IV CONT ONLY 12/05/2024 REASON FOR EXAM: ABDOMINAL PAIN TECHNIQUE: ABDOMEN/PELVIS W IV CONT ONLY Coronal and Sagittal reconstruction series were provided. CONTRAST: Isovue 370 VOLUME: 70 mL One or more dose reduction techniques were used (e.g., Automated exposure control, adjustment of the mA and/or kV according to patient size, use of iterative reconstruction technique. RADIATION DOSE SUMMARY: CTDlvol: 23.3 mGy DLP: 1786 mGycm COMPARISON: None FINDINGS: Lung bases: Lung bases are clear. Multivessel coronary calcifications. Aortic valvular and thoracicaortic calcification. Small hiatal hernia. Liver: Unremarkable. Gallbladder: Surgically absent. Spleen: Unremarkable Pancreas: Normal size without evidence of mass surrounding inflammation or ductal dilation. Adrenals: Unremarkable Kidneys: No hydronephrosis or radiodense stone Bladder: Unremarkable. Reproductive Organs: Prior hysterectomy. Adnexal regions are unremarkable. Bowel: No obstruction or inflammation. There is colonic diverticulosis without significant inflammatory changes to suggest acute diverticulitis. Appendix: The appendix is not identified. There is no inflammatory process identified in the right lower quadrant to suggest appendicitis. Lymph nodes: Slightly prominent subcentimeter nodes in the upper abdomen. Vasculature: Diffuse atherosclerotic calcifications are noted. Bones: Degenerative changes of the spine. Postoperative changes at L5-S1, without evidence of hardware complication. Soft tissues: Unremarkable CT/Abdomen/Pelvis W IV Cont ONLY IMPRESSION: 1. No acute intra-abdominal abnormality. 2. Colonic diverticulosis, without additional findings to suggest acute diverticulitis. Reading Location: [id number] CC: Dr. Moshe Key MD; Dr. Keaton Sotelo, DO ~ [employer] Officer: Signed [facility]07-13-2025 Radiology Diagnostic study note [facility] Imaging Services [address] [place] [id number] Chest PA and Lateral MR#: [id number] Acct: [id number] Name: YODIT LANDIN Rep #: [id number] : 1955 F 69 From: Emily Weeks MD PCP: Dr. Moshe Key MD Status: REG ER Study:Chest PA and Lateral Date of Exam: 12/05/24 Exam# [id number] Ordering Dr: Phyllis Fuentes PROCEDURE: CHEST PA AND LATERAL 12/05/2024 REASON FOR EXAM: CHEST PAIN TECHNIQUE: CHEST PA AND LATERAL COMPARISON: None FINDINGS: Mild pulmonary vascular congestion. No focal consolidation. No pleural effusion or pneumothorax. Cardiac silhouette is within normal limits. No acute fractures. RAD/Chest PA and Lateral IMPRESSION: Mild pulmonary vascular congestion. No focal consolidation. Reading Location: [facility] CC: Dr. Moshe Key MD; KIZZY Ortiz ~ [employer] Control Officer: Signed [facility]07-08-2025 Telephone encounter Note* Telephone Encounter - ASAF Ramos CNP - 11/30/2024 6:33 AM EDT Reviewed chart. Refill appropriate. RX [facility]. [id number] Miscellaneous Notes* Telephone Encounter - ASAF Ramos CNP - 11/30/2024 6:33 AM EDT Reviewed chart. Refill appropriate. RX sent. documented in this encounterSCincinnati [facility] [id number] Telephone encounter Note* Telephone Encounter - ASAF Ramos CNP - 11/10/2024 12:49 PM EDT Reviewed chart. Refill appropriate. RX sent. [id number] Miscellaneous Notes* Telephone Encounter - ASAF Ramos CNP - 11/10/2024 12:49 PM EDT Reviewed chart. Refill appropriate. RX sent. * Telephone Encounter - Dian Stuart - 11/10/2024 11:36 AM EDT Prescription Request: Last medication check: 06/28/24 Last physical exam: 05/04/24 Next scheduled appointment: 05/05/25 Last date of refill on this medication: omeprazole 06/10/24 Furosemide 12/29/23 documented in this encounterSCincinnati [facility] [id number] Telephone encounter Note* Telephone Encounter - Dian Stuart - 11/10/2024 11:36 AM EDT Prescription Request: Last medication check: 06/28/24 Last physical exam: 05/04/24 Next scheduled appointment: 05/05/25 Last date of refill on this medication: omeprazole 06/10/24 Furosemide 12/29/23 [id number] Evaluation note* Diagnosis Onset Date Resolution Status Admit Date Cervical myelopathy acute September 232024 1:09pm Thoracic myelopathy acute September 232024 1:09pm Anemia acute December 05 4:55pm Diabetes acute December 05 4:55pm High cholesterol acute November 4:55pm Non-ST elevation GA (NSTEMI) acute December 05, 2024 4:55pm CKD (chronic kidney disease) chronic December 05, 2024 4:55pm Hypertension chronic December 05, 2 025 4:55pm [facility] Work Phone: 1(379) 649-715005-01-2025 Evaluation note* Diagnosis Onset Date Resolution Status Admit Date Cervical myelopathy acute September 232024 1:09pm Thoracic myelopathy acute September 232024 1:09pm Anemia acute December 05 4:55pm Diabetes acute December 05 4:55pm High cholesterol acute November 4:55pm Non-ST elevation GA (NSTEMI) acute December 05, 2024 4:55pm CKD (chronic kidney disease) chronic December 05, 2024 4:55pm Hypertension chronic December 05, 2 025 4:55pm Diabetes acute December 13 9:23am Hemochromatosis acute November 9:23am High cholesterol acute November 9:23am Hypertension chronic December 13, 2 025 9:23am Stented coronary artery December 06, 2024 chronic December 13, 2024 9:23am [facility] Work Phone: 1(556) 212-647005-01-2025 Evaluation note* Diagnosis Onset Date Resolution Status Admit Date Cervical myelopathy acute September 232024 1:09pm Thoracic myelopathy acute September 232024 1:09pm Non-ST elevation GA (NSTEMI) resolve d December 05, 2024 4:55pm Anemia inactive December 05 4:55pm CKD (chronic kidney disease) inactiv e December 05, 2024 4:55pm Diabetes inactive December 05 4:55pm High cholesterol inactive November 4:55pm Hypertension inactive December 05, 2 025 4:55pm Hemochromatosis acute November 9:23am Stented coronary artery December 06, 2024 chronic December 13, 2024 9:23am Diabetes inactive December 13 9:23am High cholesterol inactive November 9:23am Hypertension inactive December 13, 2 025 9:23am [facility] Work Phone: 1(783) 314-842904-30-2025 Telephone encounter Note* Telephone Encounter - Yodit Cabrera - 09/22/2024 12:32 PM EDT error [id number] Telephone encounter Note* Telephone Encounter - Gerri Hazel RN - 09/22/2024 12:32 PM EDT S: The patient is calling the CAC [...] question Protocols used: Medication Refill and Renewal [id number] [facility] [id number] Miscellaneous Notes* Telephone Encounter - Yodit Cabrera - 09/22/2024 12:32 PM EDT error documented in this [facility]04-30-2025 Miscellaneous Notes* Telephone Encounter - Gerri Hazel RN - 09/22/2024 12:32 PM EDT S: The patient is calling the PSYCHIATRIC about the cholesterol B: Reviewed the medication [...] question Protocols used: Medication Refill and Renewal [id number] documented in this [facility]04-10-2025 Telephone encounter Note* Telephone Encounter - Rossana Peace - 09/02/2024 11:17 AM EDT Prescription Request: Rosuvastatin Calcium 10 MG Oral Tablet Fenofibrate 160 MG Oral Tablet Last medication check: 06/28/24 Last physical exam: 05/04/24 Next scheduled appointment: 05/05/25 Last date of refill on this medication Rosuvastatin - 08/06/24 (Qty 90 refill 1) Fenofibrate - 08/06/24 (qty 90 refill 1) [facility] [id number] Miscellaneous Notes* Telephone Encounter - Rossana Peace - 09/02/2024 11:17 AM EDT Prescription Request: Rosuvastatin Calcium 10 MG Oral Tablet Fenofibrate 160 MG Oral Tablet Last medication check: 06/28/24 Last physical exam: 05/04/24 Next scheduled appointment: 05/05/25 Last date of refill on this medication Rosuvastatin - 08/06/24 (Qty 90 refill 1) Fenofibrate - 08/06/24 (qty 90 refill 1) documented in this encounterSCincinnati [facility] [id number] Telephone encounter Note* Telephone Encounter - ASAF Ramos CNP - 08/05/2024 5:07 PM EDT Reviewed chart. Refill appropriate. RX sent. [facility] [id number] Miscellaneous Notes* Telephone Encounter - ASAF Ramos CNP - 08/05/2024 5:07 PM EDT Reviewed chart. Refill appropriate. RX sent. * Telephone Encounter - ASAF Ramos CNP - 08/04/2024 7:46 AM EDT Lab draw tomorrow * Telephone Encounter - Luiza Shine - 08/04/2024 7:42 AM EDT Prescription Request: Last medication check: 06-28-24 Last physical exam: 05-04-24 Next scheduled appointment: 05-05-25 Last date of refill on this medication 07-07-24 documented in this encounterSCincinnati [facility] [id number] Telephone encounter Note* Telephone Encounter - ASAF Ramos CNP - 08/04/2024 7:46 AM EDT Lab draw tomorrow [id number] Telephone encounter Note* Telephone Encounter - Luiaz Shine - 08/04/2024 7:42 AM EDT Prescription Request: Last medication check: 06-28-24 Last physical exam: 05-04-24 Next scheduled appointment: 05-05-25 Last date of refill on this medication 07-07-24 [facility] [id number] Telephone encounter Note* Telephone Encounter - Emily Kingsley MA - 07/19/2024 12:00 PM EST Prescription Request: Last medication check: 01/21/24 Last physical exam: 05/04/24 Next scheduled appointment: 05/05/25 Last date of refill on this medication Irbesartan 05/03/24, chlorthalidone 05/03/24, Atrovent 07/05/24 [facility] [id number] Miscellaneous Notes* Telephone Encounter - Emily Kingsley MA - 07/19/2024 12:00 PM EST Prescription Request: Last medication check: 01/21/24 Last physical exam: 05/04/24 Next scheduled appointment: 05/05/25 Last date of refill on this medication Irbesartan 05/03/24, chlorthalidone 05/03/24, Atrovent 07/05/24 documented in this [facility]02-10-2025 Telephone encounter Note* Telephone Encounter - Kourtney Hoff MA - 07/05/2024 4:00 PM EST Notified, no further questions. [facility] [id number] Miscellaneous Notes* Telephone Encounter - Kourtney Hoff MA - 07/05/2024 4:00 PM EST Notified, no further questions. * Telephone Encounter - ASAF Ramos CNP - 07/05/2024 11:05 AM EST [facility]cription sent to [facility] * Telephone Encounter - Rossana Peace - 07/05/2024 9:01 AM EST Pt came in wanting a refill on [...] Next scheduled appointment: 05/05/25 documented in this [facility]02-10-2025 Telephone encounter Note* Telephone Encounter - ASAF Ramos CNP - 07/05/2024 11:05 AM EST [facility] [id number] Telephone encounter Note* Telephone Encounter - Rossana Peace - 07/05/2024 9:01 AM EST Pt came in wanting a refill on [...] physical exam: 05/04/24 Next scheduled appointment: 05/05/25 [facility] [id number] Evaluation + Plan note* Assessment & Plan Note - ASAF Ramos CNP - 06/28/2024 6:12 PM ESTAssociated Problem(s): Pure hypercholesterolemia Patient scheduled for lipid check next week. Continue fenofibrate 160 mg daily and atorvastatin 20 mg daily [facility] [id number] Miscellaneous Notes* Assessment & Plan Note - ASAF Ramos CNP - 06/28/2024 6:12 PM ESTAssociated Problem(s): Pure hypercholesterolemia Patient scheduled for lipid check next week. Continue fenofibrate 160 mg daily and atorvastatin 20 mg daily * Assessment & Plan Note - ASAF Ramos CNP - 06/28/2024 6:09 PM ESTAssociated Problem(s): Osteoarthritis of right knee Discussed risks [...] addition, possible side effects, including increased pain, inf ection, or bleeding could result from the injection. [...] injection. Needle was withdrawn, no medication was injected.Patient declined second attempt Recommend ultrasound guided joint [...] injection (may need ultrasound) documented in this [facility]02-03-2025 Miscellaneous Notes* Assessment & Plan Note - ASAF Ramos CNP - 06/28/2024 6:12 PM ESTAssociated Problem(s): Pure hypercholesterolemia Patient scheduled for lipid check next week. Continue fenofibrate 160 mg daily and atorvastatin 20 mg daily * Assessment & Plan Note - SAAF Ramos CNP - 06/28/2024 6:09 PM ESTAssociated Problem(s): Osteoarthritis of right knee Discussed risks [...] addition, possible side effects, including increased pain, inf ection, or bleeding could result from the injection. [...] injection. Needle was withdrawn, no medication was injected.Patient declined second attempt Recommend ultrasound guided joint [...] and possible corticosteroid injection (may need ultrasound) * Addendum Note - ASAF Ramos CNP - 06/28/2024 9:20 AM EST Addended by: SEDRICK HEMPHILL on: 06/29/2024 06:05 PM Modules accepted: Level of Service documented in this [facility]02-03-2025 Evaluation + Plan note* Assessment & Plan Note - ASAF Ramos CNP - 06/28/2024 6:09 PM ESTAssociated Problem(s): Osteoarthritis of right knee Discussed risks [...] addition, possible side effects, including increased pain, inf ection, or bleeding could result from the injection. [...] injection. Needle was withdrawn, no medication was injected.Patient declined second attempt Recommend ultrasound guided joint [...] and possible corticosteroid injection (may need ultrasound) [id number] History of Present illness Narrative* ASAF Ramos CNP - 06/28/2024 9:20 AM EST Images from the original note were not included. 06/28/2024 Yodit Landin (: 1955) is a 68 y.o. female , Established patient, here for evaluation of thefollowing chief complaint(s): Follow-up and Knee Pain ASSESSMENT/PLAN: [...] addition, possible side effects, including increased pain, inf ection, or bleeding could result from the injection. [...] injection. Needle was withdrawn, no medication was injected.Patient declined second attempt Recommend ultrasound guided joint [...] for the evaluation ofthe following chief complaint(s): Follow-up and Knee Pain [...] 134 mg 2 tablets daily po Historical ProviderMD NON FORMULARY Cardio 450 mg daily po [...] over the lateral joint line. No medial jointline, MCL, LCL, ACL, PCL or patellar tendon tenderness. Left knee: Normal. Lymphadenopathy: Cervical: No cervical adenopathy. Skin: General: Skin is warm and dry. Neurological: Mental Status: She is alert and oriented to person, place, and time. An electronic signature was used to authenticate this note. ASAF Otoole CNP 06/28/2024 6:13 PM * Dian Stuart - 06/28/2024 9:20 AM EST Patient was identified by name and Date of . documented in this [facility]02-03-2025 History of Present illness Narrative* ASAF Ramos CNP - 06/28/2024 9:20 AM EST Images from the original note were not included. 06/28/2024 Yodit Landin (: 1955) is a 68 y.o. female , Established patient, here for evaluation of thefollowing chief complaint(s): Follow-up and Knee Pain ASSESSMENT/PLAN: [...] addition, possible side effects, including increased pain, inf ection, or bleeding could result from the injection. [...] injection. Needle was withdrawn, no medication was injected.Patient declined second attempt Recommend ultrasound guided joint [...] for the evaluation ofthe following chief complaint(s): Follow-up and Knee Pain [...] over the lateral joint line. No medial jointline, MCL, LCL, ACL, PCL or patellar tendon tenderness. Left knee: Normal. Lymphadenopathy: Cervical: No cervical adenopathy. Skin: General: Skin is warm and dry. Neurological: Mental Status: She is alert and oriented to person, place, and time. An electronic signature was used to authenticate this note. ASAF Otoole CNP 06/28/2024 6:13 PM * Dian Stuart - 06/28/2024 9:20 AM EST Patient was identified by name and Date of . documented in this [facility]02-03-2025 Instructions* Patient Instructions* ASAF Ramos CNP - 06/28/2024 9:[address] Morton about ortho specialist regarding the knee. May need ultrasound if getting injection in the knee. documented in this [facility]02-03-2025 Instructions* Patient Instructions* ASAF Ramos CNP - 06/28/2024 9:[address] Morton about ortho specialist regarding the knee. May need ultrasound if getting injection in the knee. documented in this [facility]02-03-2025 Note* Addendum Note - ASAF Ramos CNP - 06/28/2024 9:20 AM ESTAddended by: SEDRICK HEMPHILL on: 06/29/2024 06:05 PM Modules accepted: Level of Service [id number] Telephone encounter Note* Telephone Encounter - Emily Kingsley MA - 06/16/2024 11:31 AM EST Added. Pt aware. [facility] [id number] Miscellaneous Notes* Telephone Encounter - Emily Kingsley MA - 06/16/2024 11:31 AM EST Added. Pt aware. * Telephone Encounter - ASAF Ramos CNP - 06/16/2024 11:24 AM EST Yes we can do it at that time- please add to the appt note * Telephone Encounter - Emily Kingsley MA - 06/16/2024 10:32 AM EST Notified, asking if you can do this injection at her visit on 06/28/24. * Telephone Encounter - ASAF Ramos CNP - 06/16/2024 8:35 AM EST Reviewed knee xray. Shows mild osteoarthritis and some calcium deposits within the joint that are likely causing the pain. Recommend considering a corticosteroid knee injection (this can be done hereor she can go and see ortho specialist for this) * Telephone Encounter - Kourtney Hoff MA - 06/16/2024 7:09 AM EST Received fax, placed in [employer] [place]. * Telephone Encounter - Kourtney Hoff MA - 06/15/2024 3:41 PM EST Faxed to [facility] * Telephone Encounter - Yodit Cabrera - 06/15/2024 1:32 PM EST Name of caller: Yodit Contact phone number: [phone] Relationship to Patient: patient Provider: Sedrick Hemphill Practice: [facility] Chief Complaint/Reason for Call: The patient states she got the knee xrays done at [facility] in [place]. Please advise Best time of day caller can be reached: Any Patient advised that office/PCP has 24-48 business hours to return their call: No * Telephone Encounter - Kourtney Hoff MA - 06/15/2024 1:23 PM EST Left a message to return call. CAC: If patient calls back please obtain where she got her knee xrays done at. * Telephone Encounter - Kourtney Hoff MA - 06/15/2024 1:21 PM EST We got a fax stating that there was no radiology report that they had for this. Will call Yodit sortoleslye where she got these done/when she got these done. * Telephone Encounter - ASAF Ramos CNP - 06/15/2024 11:08 AM EST Did we get these? * Telephone Encounter - Kourtney Hoff MA - 06/14/2024 2:39 PM EST Called and spoke with [facility] medical records, they will be sending over x-ray results to us now. FYI * Telephone Encounter - ASAF Ramos CNP - 06/08/2024 7:41 AM EST I have not received the xray results * Telephone Encounter - Kourtney Hoff MA - 06/08/2024 7:14 AM EST I had sent an MYRNA over to [facility]....have you gotten these yet? * Telephone Encounter - Kourtney Hoff MA - 06/02/2024 4:26 PM EST Sent MYRNA to [facility] to send xray results. * Telephone Encounter - ASAF Ramos CNP - 05/25/2024 12:45 PM EST Noted. I think she is referring to xray of knee at [facility]. Will just need to make sure we receive results later this week. * Telephone Encounter - Piedad Coughlin - 05/25/2024 12:30 PM EST Name of caller: yodit Benitez phone number: [phone] Relationship to Patient: patient Provider: Sedrick Hemphill Practice: [facility] Chief Complaint/Reason for Call: pt called in to let provider that she got labs done Best time of day caller can be reached: AM Patient advised that office/PCP has 24-48 business hours to return their call: Yes documented in this encounterSCincinnati Children's [facility] CenterYrowoh58-15-2593 Telephone encounter Note* Telephone Encounter - ASAF Ramos CNP - 06/16/2024 11:24 AM EST Yes we can do it at that time- please add to the appt note [id number] Telephone encounter Note* Telephone Encounter - Emily Kingsley MA - 06/16/2024 10:32 AM EST Notified, asking if you can do this injection at her visit on 06/28/24. [facility] CampusAdkavl71-18-9297 Telephone encounter Note* Telephone Encounter - ASAF Ramos CNP - 06/16/2024 8:35 AM EST Reviewed knee xray. Shows mild osteoarthritis and some calcium deposits within the joint that are likely causing the pain. Recommend considering a corticosteroid knee injection (this can be done hereor she can go and see ortho specialist for this) [facility] [id number] Telephone encounter Note* Telephone Encounter - Kourtney Hoff MA - 06/16/2024 7:09 AM EST Received fax, placed in [employer]. [facility] [id number] Telephone encounter Note* Telephone Encounter - Kourtney Hoff MA - 06/15/2024 3:41 PM EST Faxed to [facility] [id number] Telephone encounter Note* Telephone Encounter - Yodit Cabrera - 06/15/2024 1:32 PM EST Name of caller: Yodit Contact phone number: [phone] Relationship to Patient: patient Provider: Sedrick Hemphill Practice: [facility] Chief Complaint/Reason for Call: The patient states she got the knee xrays done at [facility] in [place]. Please advise Best time of day caller can be reached: Any Patient advised that office/PCP has 24-48 business hours to return their call: No [place] [id number] Telephone encounter Note* Telephone Encounter - Kourtney Hoff MA - 06/15/2024 1:23 PM EST Left a message to return call. CAC: If patient calls back please obtain where she got her knee xrays done at. [place] [id number] Telephone encounter Note* Telephone Encounter - Kourtney Hoff MA - 06/15/2024 1:21 PM EST We got a fax stating that there was no radiology report that they had for this. Will call Yodit munozmandi where she got these done/when she got these done. [id number] Telephone encounter Note* Telephone Encounter - ASAF Ramos CNP - 06/15/2024 11:08 AM EST Did we get these? [place] [id number] Telephone encounter Note* Telephone Encounter - Kourtney Hoff MA - 06/14/2024 2:39 PM EST Called and spoke with [facility] medical records, they will be sending over x-ray results to us now. FYI [place] [id number] Telephone encounter Note* Telephone Encounter - ASAF Ramos CNP - 06/10/2024 4:16 PM EST [id number] Miscellaneous Notes* Telephone Encounter - ASAF Ramos CNP - 06/10/2024 4:16 PM EST * Telephone Encounter - Emily Kingsley MA - 06/10/2024 4:03 PM EST Prescription Request: Last medication check: 01/21/24 Last physical exam: 05/04/24 Next scheduled appointment: 06/28/24 Last date of refill on this medication 12/10/23 documented in this [facility]01-16-2025 Telephone encounter Note* Telephone Encounter - Emily Kingsley MA - 06/10/2024 4:03 PM EST Prescription Request: Last medication check: 01/21/24 Last physical exam: 05/04/24 Next scheduled appointment: 06/28/24 Last date of refill on this medication 12/10/23 [facility]Ulpfzv91-05-7849 Telephone encounter Note* Telephone Encounter - Emily Kingsley MA - 06/10/2024 4:01 PM EST Prescription Request: Last medication check: 01/21/24 Last physical exam: 05/04/24 Next scheduled appointment: 06/28/24 Last date of refill on this medication Omeprazole 12/03/23, Vit D 01/16/24 [id number] Miscellaneous Notes* Telephone Encounter - Emily Kingsley MA - 06/10/2024 4:01 PM EST Prescription Request: Last medication check: 01/21/24 Last physical exam: 05/04/24 Next scheduled appointment: 06/28/24 Last date of refill on this medication Omeprazole 12/03/23, Vit D 01/16/24 documented in this [facility]01-14-2025 Telephone encounter Note* Telephone Encounter - ASAF Ramos CNP - 06/08/2024 7:41 AM EST I have not received the xray results [facility] [id number] Telephone encounter Note* Telephone Encounter - Kourtney Hoff MA - 06/08/2024 7:14 AM EST I had sent an MYRNA over to [facility]....have you gotten these yet? [facility] CampusGoftph86-89-8579 Telephone encounter Note* Telephone Encounter - Kourtney Hoff MA - 06/02/2024 4:26 PM EST Sent MYRNA to [facility] to send xray results. [facility] [id number] Telephone encounter Note* Telephone Encounter - ASAF Ramos CNP - 06/02/2024 9:07 AM EST Reviewed chart. Refill appropriate. RX sent. [facility] CampusHeiphy77-36-2239 Miscellaneous Notes* Telephone Encounter - ASAF Ramos CNP - 06/02/2024 9:07 AM EST Reviewed chart. Refill appropriate. RX sent. * Telephone Encounter - Allison Dunlap MA - 06/02/2024 8:42 AM EST Prescription Request: Last medication check: 01/21/24 Last physical exam: 05/04/24 Next scheduled appointment: 06/28/24 Last date of refill on this medication 03/25/24 90 day 1 refill documented in this [facility]01-08-2025 Telephone encounter Note* Telephone Encounter - Allison Dunlap MA - 06/02/2024 8:42 AM EST Prescription Request: Last medication check: 01/21/24 Last physical exam: 05/04/24 Next scheduled appointment: 06/28/24 Last date of refill on this medication 03/25/24 90 day 1 refill [facility] [id number] Evaluation + Plan note* Assessment & Plan Note - ASAF Ramos CNP - 05/25/2024 2:32 PM ESTAssociated Problem(s): Acute pain of right knee Will obtain imaging due to history of osteoarthritis to evaluate status. Has been couple years since last imaging per patient. Recommend heahter BLEDSOE to see chiropractor for knee, pending imaging results, consider PT and or referral to sports med [facility] [id number] Miscellaneous Notes* Assessment & Plan Note - ASAF Ramos CNP - 05/25/2024 2:32 PM ESTAssociated Problem(s): Acute pain of right knee Will obtain imaging due to history of osteoarthritis to evaluate status. Has been couple years since last imaging per patient. Recommend heather BLEDSOE to see chiropractor for knee, pending imaging results, consider PT and or referral to sports med documented in this encounterSCincinnati Children's Hospital Medical CenterJfbhsk55-56-6678 Telephone encounter Note* Telephone Encounter - ASAF Ramos CNP - 05/25/2024 12:45 PM EST Noted. I think she is referring to xray of [facility] at [facility]. Will just need to make sure we receive results later this week. [facility] CampusLwobnw87-49-6699 Telephone encounter Note* Telephone Encounter - Piedad Sloanson - 05/25/2024 12:30 PM EST Name of caller: yodit Contact phone number: [phone] Relationship to Patient: patient Provider: Sedrick Hemphill Practice: [facility] Chief Complaint/Reason for Call: pt called in to let provider that she got labs done Best time of day caller can be reached: AM Patient advised that office/PCP has 24-48 business hours to return their call: Yes [facility] [id number] Note* Exam Date Time Procedure Performing Provider Status 05/25/24 12:28 PM XR Knee 3 Views Right Contributor_sy stem, FUJI; Auth (Verified) [id number] ORIGINAL EXAMINATION: THREE XRAY VIEWS OF THE [...] 05/25/2024 9:34:14 PM Ordering Provider: SEDRICK HEMPHILL [facility]12-31-2024 History of Present illness Narrative * Dian Stuart - 05/25/2024 10:40 AM EST Patient was identified by name and Date of . * ASAF Ramos CNP - 05/25/2024 10:40 AM EST Images from [...] years since last imaging per patient. Recommend ehather BLEDSOE to see chiropractor for knee, pending [...] TABLET BY MOUTH DAILY 05/03/24 Yes Sedrick HemphillPATIENT SERVICE REPRESENTATIVE - TRAFFIC WORKFORCE REPRESENTATIVE DIGESTIVE ENZYMES PO Take 175 mg by mouth in the morning and 175 mg at noon and 175 mg in the evening. Yes Historical Provider, furosemide (Lasix) 20 MG tablet TAKE 1 TABLET BY MOUTH DAILY 12/29/23 Yes ASAF Ramos CNP irbesartan (Avapro) 300 MG tablet TAKE 1 TABLET BY MOUTH DAILY 05/03/24 Yes SYLVESTER Ramos CNP levothyroxine (Synthroid, Levoxyl) 150 MCG [...] mg 2 tablets daily po Yes Historical ProviderMD NON FORMULARY Cardio 450 mg daily po [...] 450 mg by mouth daily. Yes Historical ProviderMD Review of Systems Constitutional: Positive for activity [...] CNP 05/25/2024 2:32 PM documented in this [facility]12-31-2024 Instructions* Patient Instructions* ASAF Ramos CNP - 05/25/2024 10:40 AM EST Try the Voltaren cream on joints. Ice and elevate right knee, try compression sleeve during the day. documented in this [facility]12-30-2024 Telephone encounter Note* Telephone Encounter - Gerri Hazel RN - 05/24/2024 11:23 AM EST S: The patient is calling the PSYCHIATRIC about right knee pain B: This started [...] present > 3 days Protocols used: Knee Czpy-VVBLP-EM [facility] [id number] Miscellaneous Notes* Telephone Encounter - Gerri Mcmillan RN - 05/24/2024 11:23 AM EST S: The patient is calling the PSYCHIATRIC about right knee pain B: This started [...] present > 3 days Protocols used: Knee Wwju-NGRFU-TI documented in this [facility]12-19-2024 Evaluation note* Diagnosis Onset Date Resolution Status Admit Date S/P lumbar fusion acute Decembe r 2023 1:20pm S/P lumbar fusion acute Februar y 2024 11:24am Osteoarthritis of right knee acute July 07, 2024 10:48am Osteoarthritis of right knee acute July 28, 2024 10:48am Cervical myelopathy acute July 30, 2024 10:46am [facility] Work Phone: [phone]) 723-727912-10-2024 Evaluation + Plan note* Assessment & Plan Note - Moshe Key MD - 05/04/2024 9:30 AM ESTAssociated Problem(s): Hypertension Initially elevated, recheck was normal, continue chlorthalidone 25 mg daily and irbesartan 300 mg daily [facility] [id number] Evaluation + Plan note* Assessment & Plan Note - Moshe Key MD - 05/04/2024 9:30 AM ESTAssociated Problem(s): Gastroesophageal reflux disease without esophagitis Stable, continue omeprazole 40 mg daily [facility] [id number] Evaluation + Plan note* Assessment & Plan Note - Moshe Key MD - 05/04/2024 9:30 AM ESTAssociated Problem(s): Hereditary hemochromatosis (HCC) Stable, recheck lab work today. Orders: CBC auto differential; Future Ferritin; Future Iron and TIBC; Future CBC auto differential Ferritin Iron and TIBC [facility] CampusPkljsy39-49-2747 Evaluation + Plan note* Assessment & Plan Note - Moshe Key MD - 05/04/2024 9:30 AM ESTAssociated Problem(s): Hypothyroidism Controlled, continue levothyroxine 100 mcg daily Orders: TSH; Future TSH [facility] CampusLnkfyt95-35-0846 Evaluation + Plan note* Assessment & Plan Note - Moshe Key MD - 05/04/2024 9:30 AM ESTAssociated Problem(s): Type 2 diabetes mellitus without complication, without long-term current useof insulin (CMS/HCC) (HCC) Controlled, continue metformin 1000 mg twice a day Orders: Comprehensive metabolic panel; Future Hemoglobin A1c; Future Comprehensive metabolic panel Hemoglobin A1c [facility] CampusPhkzwy55-56-2295 Evaluation + Plan note* Assessment & Plan Note - Moshe Key MD - 05/04/2024 9:30 AM ESTAssociated Problem(s): Pure hypercholesterolemia Controlled, continue atorvastatin 10 mg daily Orders: Lipid panel; Future Lipid panel [facility] CampusUydhjo57-14-2542 History of Present illness Narrative* Allison Dunlap MA - 05/04/2024 9:30 AM EST Patient verified by last name and date of . * Msohe Key MD - 05/04/2024 9:30 AM EST Images from the original note were not included. [facility] - [address] [address] Visit Type: Medicare Annual Wellness PCP: Moshe Key MD Reason for Visit: Medicare Annual Wellness Visit Subsequent, Blood Work, and Health Maintenance (Tdap vaccine- agree/2nd shingles vaccine- advised to go to pharmacy /Dental exam- not done/Eye exam- go to [facility] in [place] - will send for record ) Assessment [...] MD 05/04/2024 9:57 AM documented in this [facility]12-10-2024 Miscellaneous Notes* Assessment & Plan Note [...] * Assessment & Plan Note - Moshe Kye MD - 05/04/2024 9:30 AM EST Associated [...] panel; Future Lipid panel documented in this [facility]12-09-2024 Telephone encounter Note* Telephone Encounter - Kourtney Hoff MA - 05/03/2024 7:02 AM EST Prescription Request: Last medication check: 01/21/2024 Last physical exam: 04/23/2023 Next scheduled appointment: 05/04/2024 Last date of refill on this medication: 12/03/2023 [facility] [id number] Miscellaneous Notes* Telephone Encounter - Kourtney Hoff MA - 05/03/2024 7:02 AM EST Prescription Request: Last medication check: 01/21/2024 Last physical exam: 04/23/2023 Next scheduled appointment: 05/04/2024 Last date of refill on this medication: 12/03/2023 documented in this [facility]10-31-2024 Telephone encounter Note* Telephone Encounter - ASAF Ramos CNP - 03/25/2024 2:58 PM EDT Reviewed chart. Refill appropriate. RX sent. [place] [id number] Miscellaneous Notes* Telephone Encounter - ASAF Ramos [...] up the medication: N/A documented in this [facility]10-31-2024 Telephone encounter Note* Telephone Encounter - [...] prior to picking up the medication: N/A [facility] [id number] Evaluation + Plan note* Assessment & Plan Note - ASAF Ramos CNP - 03/09/2024 4:58 PM EDTAssociated Problem(s): Preoperative clearance Medical optimized for surgery. [facility] CampusYwupxr23-48-7218 Miscellaneous Notes* Assessment & Plan Note - ASAF Ramos CNP - 03/09/2024 4:58 PM EDTAssociated Problem(s): Preoperative clearance Medical optimized for surgery. * Assessment & Plan Note - ASAF Ramos CNP - 03/09/2024 4:55 PM EDTAssociated Problem(s): Type 2 diabetes mellitus without complication, without long-term current useof insulin ([facility]) ([facility]) Controlled. Glucose readings consistently under 150. Continue metformin 1000 mg twice daily * Assessment & Plan Note - ASAF Ramos CNP - 03/09/2024 4:53 PM EDTAssociated Problem(s): Hypertension Mild elevation in blood pressure today. 146/76. Continue current medications Avapro 300 mg daily, chlorthalidone 25 mg daily, follow-up as directed. documented in this [facility]10-15-2024 Miscellaneous Notes* Assessment & Plan Note - ASAF Ramos CNP - 03/09/2024 4:58 PM EDTAssociated Problem(s): Preoperative clearance Medical optimized for surgery. * Assessment & Plan Note - ASAF Ramos CNP - 03/09/2024 4:55 PM EDTAssociated Problem(s): Type 2 diabetes mellitus without complication, without long-term current useof insulin ([facility]) ([facility]) Controlled. Glucose readings consistently under 150. [...] accepted: Level of Service documented in this [facility]10-15-2024 Evaluation + Plan note* Assessment & Plan Note - ASAF Ramos CNP - 03/09/2024 4:55 PM EDTAssociated Problem(s): Type 2 diabetes mellitus without complication, without long-term current useof insulin ([facility]) ([facility]) Controlled. Glucose readings consistently under 150. Continue metformin 1000 mg twice daily [facility] CampusPimfty59-69-4609 Evaluation + Plan note* Assessment & Plan Note - ASAF Ramos CNP - 03/09/2024 4:53 PM EDTAssociated Problem(s): Hypertension Mild elevation in blood pressure today. 146/76. Continue current medications Avapro 300 mg daily, chlorthalidone 25 mg daily, follow-up as directed. [facility] [id number] History of Present illness Narrative* ASAF Ramos CNP - 03/09/2024 11:00 AM EDT Images from the original note were not included. [facility] - [address] [address] Dept: [phone] Dept Loc: [phone] Subjective Chief Complaint: Ms. Landin is a 68 y.o. female who presentsfor pre-operative evaluation. Planned surgery: MIS-TLIF at L5-S1 Surgeon: Dr. Rose- [facility] Date of Surgery: 03/29/2024 Plans to be overnight. Then home the next day. Will have PT at the rehab center in [place]. Has another appt next week- on the [...] complication, without long-term current use of insulin ([facility]) ([facility]) Assessment & Plan: Controlled. Glucose readings [...] completed COVID-19 Vaccine-declined Diabetes: [facility]: Foot Exam-pended documented in this [facility]10-15-2024 History of Present illness Narrative* ASAF Ramos CNP - 03/09/2024 11:00 AM EDT Images from the original note were not included. [address] [address] Dept: [phone] Dept Loc: [phone] Subjective Chief Complaint: Ms. Landin is a 68 y.o. female who presentsfor pre-operative evaluation. Planned surgery: MIS-TLIF at L5-S1 Surgeon: Dr. Rose- [facility] Date of Surgery: 03/29/2024 Plans to be overnight. Then home the next day. Will have PT at the rehab center in [place]. Has another appt next week- on the [...] complication, without long-term current use of insulin ([facility]) ([facility]) Assessment & Plan: Controlled. Glucose readings [...] Exam-needs completed COVID-19 Vaccine-declined Diabetes: Retinopathy Screening-02/20/2024 [facility] Diabetes: Foot Exam-pended documented in this [facility]10-15-2024 Instructions* Patient Instructions* ASAF Ramos CNP - 03/09/2024 11:00 AM EDT Vit d 2,000 international units daily over the counter. documented in this [facility]10-15-2024 Instructions* Patient Instructions* ASAF Ramos CNP - 03/09/2024 11:00 AM EDT Vit d 2,000 international units daily over the counter. documented in this [facility]10-15-2024 Note* Addendum Note - ASAF Ramos CNP - 03/09/2024 11:00 AM EDTAddended by: SEDRICK HEMPHILL on: 03/11/2024 06:38 PM Modules accepted: Level of Service [facility] [id number] Telephone encounter Note* Telephone Encounter - Emily Kingsley MA - 02/13/2024 11:10 AM EDT Notified, needs 90 day supply to mail order pharmacy. [facility] CampusGkzmgq70-06-9412 Telephone encounter Note* Telephone Encounter - Emily Kingsley MA - 02/13/2024 11:10 AM EDT ----- Message from ASAF Ramos CNP sent at 02/13/2024 11:09 AM EDT ----- Tsh - normal, continue current dosing of levothyroxine 100 mcg daily [facility] CampusNwrhaq01-23-0378 Miscellaneous Notes* Telephone Encounter - Emily Kingsley MA - 02/13/2024 11:10 AM EDT Notified, needs 90 day supply to mail order pharmacy. * Telephone Encounter - Emily Kingsley MA - 02/13/2024 11:10 AM EDT ----- Message from ASAF Ramos CNP sent at 02/13/2024 11:09 AM EDT ----- Tsh - normal, continue current dosing of levothyroxine 100 mcg daily documented in this encounterSCincinnati Children's Hospital Medical CenterQtjxxq81-26-8093 Evaluation + Plan note* Assessment & Plan Note - ASAF Ramos CNP - 01/21/2024 11:48 AM EDTAssociated Problem(s): Bilateral foot pain Improving. Patient to continue follow-up with podiatry as previously directed. Continue orthotics [facility] CampusYldygt13-23-3601 Miscellaneous Notes* Assessment & Plan Note - [...] without complication, without long-term current useof insulin ([facility]) ([facility]) Controlled, continue metformin 1000 mg twice daily * Assessment & Plan Note - ASAF Ramos CNP - 01/21/2024 11:43 AM EDTAssociated Problem(s): Degenerative disc disease, lumbar Follow-up with acoustic intelligence specialist as directed. documented in this [facility]08-28-2024 Evaluation + Plan note* Assessment & Plan Note - ASAF Ramos CNP - 01/21/2024 11:47 AM EDTAssociated Problem(s): Murmur, cardiac Noted new murmur on physical examination. Will obtain echocardiogram to further evaluate. Most recent EKG in August 2023 (preop)- sinus rhythm. Denies any shortness of breath or chest pain. [facility] [id number] Evaluation + Plan note* Assessment & Plan Note - ASAF Ramos CNP - 01/21/2024 11:46 AM EDTAssociated Problem(s): Iron deficiency anemia Iron levels have improved, hemoglobin still lower than her baseline. Recommend continue iron supplementation. Consider referral to gastroenterology for further evaluation. Recent Cologuard negative, previous colonoscopy in 2017 normal [facility] CampusUsmewi17-38-1912 Evaluation + Plan note* Assessment & Plan Note - ASAF Ramos CNP - 01/21/2024 11:45 AM EDTAssociated Problem(s): Hypothyroidism Uncontrolled. Recent change in levothyroxine dose increased to 100 mcg daily. Recommend starting new dosing and rechecking TSH in 8 weeks [facility] CampusVrpyyp76-16-2021 Evaluation + Plan note* Assessment & Plan Note - ASAF Ramos CNP - 01/21/2024 11:44 AM EDTAssociated Problem(s): Hypertension Mild elevation in blood pressure today. 146/80. Continue current medications Avapro 300 mg daily, chlorthalidone 25 mg daily, follow-up as directed. [facility] CampusYmpecm72-61-7601 Evaluation + Plan note* Assessment & Plan Note - ASAF Ramos CNP - 01/21/2024 11:44 AM EDTAssociated Problem(s): Type 2 diabetes mellitus without complication, without long-term current useof insulin ([facility]) ([facility]) Controlled, continue metformin 1000 mg twice daily [place] [id number] Evaluation + Plan note* Assessment & Plan Note - ASAF Ramos CNP - 01/21/2024 11:43 AM EDTAssociated Problem(s): Degenerative disc disease, lumbar Follow-up with acoustic intelligence specialist as directed. [facility] [id number] History of Present illness Narrative* Dian Stuart [...] complication, without long-term current use of insulin ([facility]) ([facility]) Assessment & Plan: Controlled, continue metformin 1000 mg twice daily Orders: - Microalbumin / creatinine, urine ratio 2. Hypothyroidism, unspecified type Assessment & Plan: Uncontrolled. Recent change in levothyroxine dose increased to 100 mcg daily. Recommend starting new dosing and rechecking TSH in 8 weeks 3. Degenerative disc disease, lumbar Assessment & Plan: Follow-up with acoustic intelligence specialist as directed. 4. Iron deficiency anemia, [...] Continue orthotics Follow up for 3 month [facility]. SUBJECTIVE/OBJECTIVE: HPI - Yodit Landin (: 1955) is a 68 y.o. female , Established patient, here for the evaluation ofthe following chief complaint(s): Diabetes Hearing deficit-just got new Hearing aids- has following up next week with cookie breaker Back pain-was referred to orthospine and reports seeing Dr. Marroquin (ortho-spine), for lumbar pain, is getting a MRI, and starting physical at [facility] in [place], still seeing chiropractor. States that she might end up getting back surgery. Denies any significant change in her symptoms, denies any bowel or bladder changes Foot pain-sees Dr. Brenner in [facility]- has inserts now and that is helping [...] (10 mg) by mouth daily. 12/03/23 Yes ASAF Ramos CNP chlorthalidone (Hygroton) 25 MG tablet Take 1 tablet (25 mg) by mouth daily. 12/03/23 Yes ASAF Ramos CNP cyanocobalamin (HM Vitamin B-12) 500 MCG tablet Take 500 mcg by mouth every other day. Yes Historical Provider, DIGESTIVE ENZYMES PO Take 175 mg by mouth in the morning and 175 mg at noon and 175 mg in the evening. Yes Historical Provider, ergocalciferol (Vitamin D-2) 1.25 MG (48042 UT) capsule Take 1 capsule (1.25 mg) [...] CNP 01/21/2024 11:49 AM documented in this [place] [address]-28-2024 Instructions* Patient Instructions* ASAF Ramos CNP - 01/21/2024 10:20 AM EDT Bring in research records. -Please call Central Scheduling at [phone] to schedule your outpatient test (CT of lung for lung cancer screening) documented in this [facility]08-23-2024 Telephone encounter Note* Telephone Encounter - Emily Kingsley MA - 01/16/2024 9:19 AM EDT Patient is agreeable, scheduled in 8 weeks, orders and med pended, pharmacy verified. Please update sig for B12 as well. [facility] CampusFdpfwi01-84-1507 Miscellaneous Notes* Telephone Encounter - Emily Kingsley [...] mcg daily and rechecking in 8 weeks [id number] slightly elevated, may reduce B12 supplement to every other day Folate-normal Transferrin-normal Back to Top Vit d low- 25, recommend vitamin D 50,000 international units once weekly x 12 weeks, then 2000 international units daily [id number] (please see other results) Left a message [...] visit is needed. Thanks! documented in this [facility]08-22-2024 Telephone encounter Note* Telephone Encounter - Emily Kingsley MA - 01/15/2024 4:23 PM EDT ----- Message from ASAF Ramos CNP sent at 01/15/2024 4:16 PM EDT ----- Iron and TIBC still low normal range however gradually improving CBC-slight improvement in hemoglobin Ferritin-unchanged TSH-elevated, meaning we need to adjust the levothyroxine, recommend increasing to 100 mcg daily and rechecking in 8 weeks [id number] slightly elevated, may reduce B12 supplement to every other day Folate-normal Transferrin-normal Back to Top Vit d low- 25, recommend vitamin D 50,000 international units once weekly x 12 weeks, then 2000 international units daily [id number] (please see other results) Left a message [...] then no nurse visit is needed. Thanks! [facility] CampusSwhwyp22-00-8670 Note* Addendum Note - ASAF Ramos CNP - 12/29/2023 8:22 AM EDTAddended by: SEDRICK HEMPHILL on: 12/29/2023 08:22 AM Modules accepted: Orders [place] [id number] Note* Addendum Note - ASAF Ramos CNP - 12/29/2023 8:22 AM EDTAddended by: SEDRICK HEMPHILL on: 12/29/2023 08:22 AM Modules accepted: Orders [facility] CampusJnxebk95-20-9217 Miscellaneous Notes* Addendum Note - ASAF Ramos [...] like a referral to orthospine in the [place] area. Will have patient intake coordinator assist with finding provider in network for her. We will also check vitamin D level at next lab draw on January 14, 2024. Also get DEXA scan completed to further evaluate osteopenia * Telephone Encounter - Abimbola Antony - 12/24/2023 10:38 AM EDT Name of caller: Yodit Landin Contact phone number: [phone] Relationship to Patient: patient Provider: Dr. Key [...] evaluation by orthospine doctor. documented in this [facility]08-05-2024 Telephone encounter Note* Telephone Encounter - ASAF Ramos CNP - 12/29/2023 7:34 AM EDT Reviewed chart. Refill appropriate. RX sent. [facility] CampusRrxyxg56-73-9261 Miscellaneous Notes* Telephone Encounter - ASAF Ramos CNP - 12/29/2023 7:34 AM EDT Reviewed chart. Refill appropriate. RX sent. * Telephone Encounter - Allison Dunlap MA - 12/29/2023 7:17 AM EDT Prescription Request: Last date of refill on this medication Sent 10/22/[facility] 1 refill documented in this encounterSCincinnati Children's Hospital Medical CenterKzpcbg81-71-9399 Telephone encounter Note* Telephone Encounter - Allison Dunlap MA - 12/29/2023 7:17 AM EDT Prescription Request: Last date of refill on this medication Sent 10/22/[facility] refill [facility] CampusHzhune83-92-7692 Note* Addendum Note - ASAF Ramos CNP - 12/24/2023 6:13 PM EDTAddended by: SEDRICK HEMPHILL on: 12/24/2023 06:13 PM Modules accepted: Orders [facility] CampusBexosm91-67-8852 Note* Addendum Note - ASAF Ramos CNP - 12/24/2023 6:13 PM EDTAddended by: SEDRICK HEMPHILL on: 12/24/2023 06:13 PM Modules accepted: Orders [address]Bdrhvh76-88-4666 Note* Addendum Note - ASAF Ramos CNP - 12/24/2023 6:13 PM EDTAddended by: SEDRICK HEMPHILL on: 12/24/2023 06:13 PM Modules accepted: Orders [facility] CampusLuboha38-12-8202 Note* Addendum Note - ASAF Ramos CNP - 12/24/2023 6:13 PM EDTAddended by: SEDRICK HEMPHILL on: 12/24/2023 06:13 PM Modules accepted: Orders [facility] CampusJunbxy27-61-8815 Note* Addendum Note - ASAF Ramos CNP - 12/24/2023 6:13 PM EDTAddended by: SEDRICK HEMPHILL on: 12/24/2023 06:13 PM Modules accepted: Orders [facility] CampusKdvjsc04-78-7492 Telephone encounter Note* Telephone Encounter - ASAF Ramos CNP - 12/24/2023 6:13 PM EDT Called patient and reviewed results of x-ray. She would like a referral to orthospine in the [place] area. Will have patient intake coordinator assist with finding provider in network for her. We will also check vitamin D level at next lab draw on January 14, 2024. Also get DEXA scan completed to further evaluate osteopenia [place] [id number] Miscellaneous Notes* Addendum Note - ASAF Ramos CNP - 12/24/2023 6:13 PM EDTAddended by: SDERICK HEMPHILL on: 12/24/2023 06:13 PM Modules accepted: Orders * Telephone Encounter - ASAF Ramos CNP - 12/24/2023 6:13 PM EDT Called patient and reviewed results of x-ray. She would like a referral to orthospine in the [place] area. Will have patient intake coordinator assist with finding provider in network for her. We will also check vitamin D level at next lab draw on January 14, 2024. Also get DEXA scan completed to further evaluate osteopenia * Telephone Encounter - Abimbola Antony - 12/24/2023 10:38 AM EDT Name of caller: Yodit Landin Contact phone number: [phone] Relationship to Patient: patient Provider: Dr. Key [...] evaluation by orthospine doctor. documented in this encounterSCincinnati Children's Hospital Medical CenterTrcvsf15-71-3451 Telephone encounter Note* Telephone Encounter - Abimbola Antony - 12/24/2023 10:38 AM EDT Name of caller: Yodit Landin Contact phone number: [phone] Relationship to Patient: patient Provider: Dr. Key Practice: [facility] Chief Complaint/Reason for Call: Patient is returning call from office regarding x-ray results. Please call patient back to discuss results. Please advise, thank you. Best time of day caller can be reached: Any Patient advised that office/PCP has 24-48 business hours to return their call: Yes [facility] CampusWlxrib59-33-2478 Telephone encounter Note* Telephone Encounter - Allison Dunlap MA - 12/24/2023 10:27 AM EDT LM for pt to return call [place] [id number] Telephone encounter Note* Telephone Encounter - Allison [...] disc disease- recommend evaluation by orthospine doctor. [facility] CampusIzowci18-02-5763 Telephone encounter Note* Telephone Encounter - Dian Stuart - 12/12/2023 7:28 AM EDT MYRNA for Dr. Jimenez had to be mailed out-no fax number provided on website, attempted calling them andno answer and unable to leave voicemail (recording kept rotating). My chart message sent to patientwith list of [employer] that accept her insurance advised her to please let us know who she would like us to put a referral in for and to call them to be sure they accept her insurance. [facility] CampusUegsot57-69-2438 Miscellaneous Notes* Telephone Encounter - Dian Stuart - 12/12/2023 7:28 AM EDT MYRNA for Dr. Jimenez had to be mailed out-no fax number provided on website, attempted calling them andno answer and unable to leave voicemail (recording kept rotating). My chart message sent to patientwith list of [employer] that accept her insurance advised her to please let us know who she would like us to put a referral in for and to call them to be sure they accept her insurance. * Telephone Encounter - ASAF Ramos CNP - 12/11/2023 4:57 PM EDT Please see if we can get records from Dr. Trena Jimenez, chiropractor in [place]. Patient thinks shehad imaging done in 2019? [...] in touch. Thank you! documented in this encounterSCincinnati Children's Hospital Medical CenterWgsyhu13-90-2304 Telephone encounter Note* Telephone Encounter - ASAF Ramos CNP - 12/11/2023 4:57 PM EDT Please see if we can get records from Dr. Trena Jimenez, chiropractor in [place]. Patient thinks shehad imaging done in 2019? That Dr. Jimenez had ordered. Also would like Dr. Jimenez's last treatment plan Also- does she have anyone in mind for podiatry? She can check with her insurance to see who else is in network for her and I can make the referral if needed. [facility] CampusHzqptc00-75-2011 Telephone encounter Note* Telephone Encounter - Nancy [...] someone would be in touch. Thank you! [facility] CampusCbeioo23-54-0233 Telephone encounter Note* Telephone Encounter - Emily Kingsley MA - 12/09/2023 4:50 PM EDT Spoke to Yodit, send to [facility] please. Thanks! [facility] CampusJowxsr88-80-2019 Miscellaneous Notes* Telephone Encounter - Emily Kingsley MA - 12/09/2023 4:50 PM EDT Spoke to Yodit, send to [facility] please. Thanks! * Telephone Encounter - Moshe Key MD - 12/09/2023 4:30 PM EDT What pharmacy does she want this sent to * Telephone Encounter - Kourtney Hoff MA - 12/09/2023 3:02 PM EDT Spoke to Yodit, states that her old doctor from [place], Dr. Caitlin Hope, was the one who prescribed it for her last, and gave her 23 refills. States that since she is no longer down in [place], she cannot get it filled through them. [...] on this medication: 10/22/2022 documented in this encounterSCincinnati Children's Hospital Medical CenterSgdknx52-27-0104 Telephone encounter Note* Telephone Encounter - Moshe Key MD - 12/09/2023 4:30 PM EDT What pharmacy does she want this sent to [place] [id number] Telephone encounter Note* Telephone Encounter - Kourtney Hoff MA - 12/09/2023 3:02 PM EDT Spoke to Yodit, states that her old doctor from [place], Dr. Caitlin Hope, was the one who prescribed it for her last, and gave her 23 refills. States that since she is no longer down in [place], she cannot get it filled through them. 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 [place] [id number] Telephone encounter Note* Telephone Encounter - Moshe Key MD - 12/09/2023 10:51 AM EDT Refused, this does not look like we ever prescribed the medication [place] [id number] Telephone encounter Note* Telephone Encounter - Kourtney Hoff MA - 12/09/2023 9:26 AM EDT Prescription Request: Last medication check: 10/22/2023 Last physical exam: 04/23/2023 Next scheduled appointment: 01/21/2024 Last date of refill on this medication: 10/22/2022 [place] [id number] Telephone encounter Note* Telephone Encounter - Emily Kingsley MA - 12/03/2023 10:30 AM EDT Notified, she will get the ferrous sulfate OTC, I added it to her med list. She also states that [facility] has contacted us 2x for her refills, meds are pended. Orders as well. Scheduled recheck. [facility]Kucgrn83-06-7808 Miscellaneous Notes* Telephone Encounter - Emily Kingsley [...] to check thyroid functioning. documented in this encounterSCincinnati Children's Hospital Medical CenterLnaklp13-89-2358 Telephone encounter Note* Telephone Encounter - Emily [...] folate, and TSH to check thyroid functioning. [facility] CampusMkyxtg28-57-9989 Evaluation + Plan note* Assessment & Plan Note - ASAF Ramos CNP - 12/01/2023 5:59 PM EDTAssociated Problem(s): Bilateral foot pain Obtain recent podiatry notes. Follow-up with podiatry as scheduled [facility] CampusWimwbg29-73-5174 Miscellaneous Notes* Assessment & Plan Note - [...] obtain recent progress notes from chiropractor and pricing director for further plan of care. Consider imaging of the pelvis hip area if indicated. Last imaging was done per patient in? 2019 by chiropractor documented in this encounterSCincinnati Children's Hospital Medical CenterNvemhf18-29-9691 Evaluation + Plan note* Assessment & Plan Note - ASAF Ramos CNP - 12/01/2023 5:57 PM EDTAssociated Problem(s): Left buttock pain Highly suspect sciatic pain. Patient with significant trigger point upon palpation. Will obtain recent progress notes from chiropractor and pricing director for further plan of care. Consider imaging of the pelvis hip area if indicated. Last imaging was done per patient in? 2019 by chiropractor [facility] CampusYqlmwz46-66-2832 History of Present illness Narrative* Allison Dunlap [...] obtain recent progress notes from chiropractor and pricing director for further plan of care. Consider imaging of the pelvis hip area if indicated. Last imaging was done per patient in? 2019 by chiropractor 2. Bilateral foot pain Assessment [...] iron levels. Patient recently got back from [place] and has some questions about her leg/feet pain and left lower back hip pain. She has seen Dr. Beltran-podiatry for foot pain. States she she is supposed to have some furthertesting done but does not remember exactly what testing it is. She got new shoes and may be fitted f or orthotics. When she was in [place] she had an episode of severe left hip pain making it difficult to walk. Shedid see a specialist down there who diagnosed her with piriformis dysfunction. She also is seeing achiropractor here in [place]. Patient states she had a fracture of [...] CNP 12/01/2023 5:59 PM documented in this [facility]07-02-2024 History of Present illness Narrative* Nadya Harkins PA-C - 11/25/2023 1:00 PM EDT Images from the original note were not included. [facility] [address] Dept: [phone] Dept 11/25/2023 Chief Complaint Patient presents with [...] NONE Nadya Harkins PA-C to Dr. Avila Smackover Orthopaedic Surgery Hand and Upper Extremity Plastic and Reconstructive Surgery 11/25/2023 at 1:40 PM (Please note that portions of this note may have been completed with a voice recognition program. Efforts were made to edit the dictations but occasionally words are mis-transcribed.) documented in this [facility]05-30-2024 Telephone encounter Note* Telephone Encounter - Nadya Harkins PA-C - 10/23/2023 8:32 AM EDT Okay, thank you [place] Phone: [phone] Miscellaneous Notes* Telephone Encounter - Nadya Harkins PA-C - 10/23/2023 8:32 AM EDT Okay, thank you * Telephone Encounter - Faiza Navarro - 10/22/2023 4:57 PM EDT Name of caller: Yodit Contact phone number: [phone] Relationship to Patient: patient Provider: Nadya Practice: [...] return their call: No documented in this encounterSCincinnati Children's Hospital Medical CenterCqvqkx43-75-2337 Telephone encounter Note* Telephone Encounter - Faiza Navarro - 10/22/2023 4:57 PM EDT Name of caller: Yodit Contact phone number: [phone] Relationship to Patient: patient Provider: Nadya Practice: [...] business hours to return their call: No [facility] CampusJxotzl24-66-3020 Evaluation + Plan note* Assessment & Plan Note - ASAF Ramos CNP - 10/22/2023 4:14 PM EDTAssociated Problem(s): Type 2 diabetes mellitus without complication, without long-term current useof insulin (CMS/HCC) (HCC) Controlled. Continue metformin at 1000 mg twice daily [facility] CampusSexfme37-78-0797 Evaluation + Plan note* Assessment & Plan Note - ASAF Ramos CNP - 10/22/2023 4:14 PM EDTAssociated Problem(s): Swelling of both lower extremities Denies any chest pain or shortness of breath, weight is stable. Patient reports being on furosemidepreviously and had stopped the medication about 4 weeks ago. Will check CMP and have her restart furosemide 20 mg daily [facility] CampusKqzaap36-87-9486 Miscellaneous Notes* Assessment & Plan Note - [...] pain Follow-up with podiatry documented in this [facility]05-29-2024 Evaluation + Plan note* Assessment & Plan Note - ASAF Ramos CNP - 10/22/2023 4:13 PM EDTAssociated Problem(s): Hypertension Controlled continue irbesartan 300 mg daily, chlorthalidone 25 mg daily [facility] CampusYjxfzy70-30-8413 Evaluation + Plan note* Assessment & Plan Note - ASAF Ramos CNP - 10/22/2023 4:07 PM EDTAssociated Problem(s): Hereditary hemochromatosis (HCC) Has been stable. Check CBC iron levels today, if normal consider checking every 6 months [facility] CampusQkbtbo61-24-9575 Evaluation + Plan note* Assessment & Plan Note - ASAF Ramos CNP - 10/22/2023 4:07 PM EDTAssociated Problem(s): Bilateral foot pain Follow-up with podiatry [facility] CampusTabkzi95-79-3483 History of Present illness Narrative* Dian Stuart [...] CNP 10/22/2023 4:14 PM documented in this [facility]05-21-2024 History of Present illness Narrative* Nadya Harkins PA-C - 10/14/2023 1:30 PM EDT Images from the original note were not included. [facility] MEDICINE [address] [place] [address] Dept: [phone] Dept 10/14/2023 Chief Complaint Patient presents with [...] she is going out and going to gnosticist as she has pain and hypersensitivity over the scar when people shake her hand or when the area brushes up against something. She was offered a prescription for formal occupational therapy for scar tissue massage and desensitization. She prefers an external referral to Occupational Therapy in [place] which is closer to her home. She [...] occasionally words are mis-transcribed.) documented in this [facility]05-21-2024 Instructions* Patient Instructions* Omar Fitch, KIARRA - 10/14/2023 1:30 PM EDT Images from [...] sink is also helpful. documented in this [facility]04-23-2024 History of Present illness Narrative* Nadya [...] by: AB/ADITYA Harkins PA-C to Dr. Avila Smackover Orthopaedic Surgery Hand and Upper Extremity Plastic and Reconstructive Surgery (Please note that portions of this note may have been completed with a voice recognition program. Efforts were made to edit the dictations but occasionally words are mis-transcribed.) documented in this [facility]04-23-2024 Instructions* Patient Instructions* Nadya Harkins PA-C [...] Where can you learn more? Go to [email or web address] and sign in to your [employer] account. Enter Z454 in the Search Health Information box to learn more about Wrist : Rehab Exercises. If you do not have an account, please click on the Sign Up Now link. Current as of: July 26, 2019 Content Version: 12.6 [employer]. Care instructions adapted under license by [employer]. If you have questions about a medical condition or this instruction, always ask your healthcare professional. [employer] disclaims any warranty or liability for your use of this information. documented in this [facility]04-11-2024 Evaluation + Plan note* Assessment & Plan Note - SedrickASAF Longoria CNP - 09/04/2023 2:49 PM EDTAssociated Problem(s): Visit for wound check No concerns. Additional padding added to the edge of the plaster splint, lower half of the dressingrewrapped with the Drake wrap. Patient to follow-up with her surgeon as scheduled [place] [id number] Miscellaneous Notes* Assessment & Plan Note - ASAF Ramos CNP - 09/04/2023 2:49 PM EDTAssociated Problem(s): Visit for wound check No concerns. Additional padding added to the edge of the plaster splint, lower half of the dressingrewrapped with the Drake wrap. Patient to follow-up with her surgeon as scheduled documented in this encounterSSarah [place] [id number] Telephone encounter Note* Telephone Encounter - ASAF Ramos CNP - 09/04/2023 12:48 PM EDT Noted. Agree with disposition. [address]Rttthj02-96-7509 Miscellaneous Notes* Telephone Encounter - ASAF Ramos [...] unable to drive back over to the [place] location. R: OV scheduled for today with Julianna Hemphill with back line office staff approval. No further needsat this time. Reason for Disposition Patient wants to be seen Protocols used: Post-Op Symptoms and Rnrslppqy-AZRCK-NG documented in this [facility]04-11-2024 History of Present illness Narrative* Kourtney [...] CNP 09/04/2023 2:49 PM documented in this [facility]04-11-2024 Telephone encounter Note* Telephone Encounter - Iris Morales RN - 09/04/2023 9:36 AM EDT S: Patient spoke with PSYCHIATRIC nurse regarding post op problem-surgical bandage B: Surgery-09/03/23-RIGHT VOLAR RADIAL WRIST MASS EXCISION A: Patient had wrist surgery yesterday states she needs bandage rewrapped and she does not have supplies at home. Patient states there is a sharp area that is exposed on the splint. Patient states she is unable to drive back over to the [facility]. R: OV scheduled for today with Julianna Hemphill with back line office staff approval. No further needsat this time. Reason for Disposition Patient wants to be seen Protocols used: Post-Op Symptoms and Rhkusgtlp-[id number]-OW [facility] CampusLjljqb04-08-9183 Note* Perioperative Nursing Note - Latesha Collins RN - 09/03/2023 11:21 AM EDT Pt and family verbalized understanding of recovery instructions, pt verbalized a readiness to be discharged home. Pt discharged home via wheelchair accompanied by RN/volunteer. Pt has had all their belongings returned to them at discharge [place] [id number] Note* Perioperative Nursing Note - Latesha Collins RN - 09/03/2023 11:21 AM EDT Pt and family verbalized understanding of recovery instructions, pt verbalized a readiness to be discharged home. Pt discharged home via wheelchair accompanied by RN/volunteer. Pt has had all their belongings returned to them at discharge [place] [id number] Miscellaneous Notes* Perioperative Nursing Note - Latesha [...] from OR via cart, spont. Resp. With MOTOR PATROL OPERATOR in attendance. Placed on monitor. Monitor alarms on in PACU Pt received from OR via cart, spont. Resp. With MOTOR PATROL OPERATOR in attendance. Placed on monitor.Monitor alarms on in PACU - pt has oral airway in place - will monitor * Op Note - Austin Leos MD - 09/03/2023 9:13 AM EDT [facility] [address] [facility] [address] Dept: [phone] Loc: [phone] Operative Report Patient Name: Yodit Landin Date of : 1955 Date of Surgery: 09/03/23 Location: [place] Preoperative Diagnosis: Recurrent Right volar wrist mass [...] patient's ASA was verified by the nurse fireproof door assembler and the anesthesia staff. Fire risk was [...] 09/03/2023 , 9:59 AM documented in this encounterSCincinnati Children's Hospital Medical CenterJjubhv13-76-7241 Note* Perioperative Nursing Note - Latesha Collins RN - 09/03/2023 10:26 AM EDT Pt arousable, oral airway removed- pt tolerating well. Will monitor [facility] CampusXtmzvn93-75-5247 Note* Perioperative Nursing Note - Latesha Collins RN - 09/03/2023 10:26 AM EDT Pt arousable, oral airway removed- pt tolerating well. Will monitor [place] [id number] Note* Perioperative Nursing Note - Latesha Collins RN - 09/03/2023 10:14 AM EDT Pt received from OR via cart, spont. Resp. With MOTOR PATROL OPERATOR in attendance. Placed on monitor. Monitor alarms on in PACU Pt received from OR via cart, spont. Resp. With MOTOR PATROL OPERATOR in attendance. Placed on monitor.Monitor alarms on in PACU - pt has oral airway in place - will monitor [place] [id number] Note* Perioperative Nursing Note - Latesha Collins RN - 09/03/2023 10:14 AM EDT Pt received from OR via cart, spont. Resp. With MOTOR PATROL OPERATOR in attendance. Placed on monitor. Monitor alarms on in PACU Pt received from OR via cart, spont. Resp. With MOTOR PATROL OPERATOR in attendance. 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 Fire risk was [...] Austin Leos MD 09/03/2023 , 9:59 AM [facility] [employer] Phone: [phone] 216-347304-10-2024 Note* Op Note - Austin Leos MD - 09/03/2023 9:13 AM EDT [facility] MAIN OR [address] [facility] [address] Dept: [phone] Loc: [phone] Operative Report Patient Name: Yodit Landin Date of : 1955 Date of Surgery: 09/03/23 Location: [place] Preoperative Diagnosis: Recurrent Right volar wrist mass [...] patient's ASA was verified by the nurse fireproof door assembler and the anesthesia staff. Fire risk was [...] Austin Leos MD 09/03/2023 , 9:59 AM [employer] Work Phone: [phone] History and physical note* Chay Patel PA-C [...] Landin regarding the natural history, etiology, and retirement consequences of her condition. We discussed both [...] iscomfortable providing informed consent for the procedure. [employer]04-10-2024 History and physical note* Chay Patel PA-C [...] Landin regarding the natural history, etiology, and rat exterminator consequences of her condition. We discussed both operative and non operative treatment options and Yodit Lanidn elected to proceed with surgical intervention. I [...] consent for the procedure. documented in this [facility]04-10-2024 Hospital Discharge instructions* Discharge Instructions* Chay [...] * Moderate Sedation in Adults Discharge Instructions (Northern Irish) documented in this [facility]03-26-2024 Telephone encounter Note* Telephone Encounter - Moshe Key MD - 08/19/2023 3:31 PM EDT I do not know what this is about? [place] Phone: [phone] 697-836103-26-2024 Miscellaneous Notes* Telephone Encounter - Moshe Key MD - 08/19/2023 3:31 PM EDT I do not know what this is about? * Telephone Encounter - Jessica Gil - 08/19/2023 2:00 PM EDT Name of caller: Yodit Contact phone number: [phone] Relationship to Patient: patient Provider: [facility]. Key [facility] Chief Complaint/Reason for Call: appt with Dr. Alvin Beltran DPM on 2:45 Best time of day caller can be reached: any Patient advised that office/PCP has 24-48 business hours to return their call: N/A Pt has surg on 09/03/[address] Leos documented in this [facility]03-26-2024 Telephone encounter Note* Telephone Encounter - Jessica Gil - 08/19/2023 2:00 PM EDT Name of caller: Yodit Contact phone number: [phone] Relationship to Patient: patient Provider: Dr. Key Practice: Shan HERRON Chief Complaint/Reason for Call: appt with Dr. Alvin Beltran DPM on 2:45 Best time of day caller can be reached: any Patient advised that office/PCP has 24-48 business hours to return their call: N/A Pt has surg on 09/03/[address] Leos Razor InsightsLpslsk96-04-6951 Telephone encounter Note* Telephone Encounter - Nadya Harkins PA-C - 08/08/2023 2:13 PM EDT PAT orders signed [place] Phone: [phone] Miscellaneous Notes* Telephone Encounter - Nadya Harkins PA-C - 08/08/2023 2:13 PM EDT PAT orders signed * Telephone Encounter - Linda Baig - 08/07/2023 10:42 AM EDT Sent patient MyChart message with all sx information * Telephone Encounter - Linda Baig - 08/07/2023 10:34 AM EDT Called [facility]. Spoke with Marcela. No PA required. Ref# [id number] * Telephone Encounter - Linda Baig - 08/06/2023 10:03 AM EDT Sent to sx schdeuling * Telephone Encounter - Linda Baig - 08/05/2023 1:42 PM EDT ----- Message from Merlin Johnson ATC sent at 08/05/2023 1:36 PM EDT ----- DERIC SURGERY SCHEDULING SLIP Patient: Yodit Landin Date of : 1955 Date of Surgery: 09/03/23 @ 9:30am Day of Surgery: Friday Hospital: [place] Duration: 60 min Type: Outpatient PAT: Yes 08/26@[facility]@10:00pm Med Clearance: No Anesthesia: MAC/Local Block: None Position: Supine Table: Stretcher Arm Board: Roll-up arm table Radiology: None CPT Code: 37380 DX Code: M67.431 Case # [id number] Consent: right volar radial Wrist mass excision FollowUp: Ajitho in 10-14 days XRays: no OT Splint needed at first PO appointment: no Special Requests Hand tray Pilot [place] blade Vessel loops available but not open 3.0 monocryl 4.0 nylon Small xeroform Splint material 4 inch plaster documented in this encounterSCincinnati Children's Hospital Medical CenterJbxlae35-43-5675 Telephone encounter Note* Telephone Encounter - Linda Baig - 08/07/2023 10:42 AM EDT Sent patient MyChart message with all sx information [facility] CampusGzqmsy03-39-6757 Miscellaneous Notes* Telephone Encounter - Linda Baig - 08/07/2023 10:42 AM EDT Sent patient MyChart message with all sx information * Telephone Encounter - Linda Baig - 08/07/2023 10:34 AM EDT Called [facility]. Spoke with Marcela. No PA required. Ref# [id number] * Telephone Encounter - Linda Baig - 08/06/2023 10:03 AM EDT Sent to [facility] * Telephone Encounter - Linda Baig - 08/05/2023 1:42 PM EDT ----- Message from Merlin Johnson ATC sent at 08/05/2023 1:36 PM EDT ----- DERIC SURGERY SCHEDULING SLIP Patient: Yodit Landin Date of : 1955 Date of Surgery: 09/03/23 @ 9:30am Day of Surgery: Friday Hospital: [place] Duration: 60 min Type: Outpatient PAT: Yes 08/26@[facility]@10:00pm Med Clearance: No Anesthesia: MAC/Local Block: None Position: Supine Table: Stretcher Arm Board: Roll-up arm table Radiology: None CPT Code: 63394 DX Code: M67.431 Case # [id number] Consent: right volar radial Wrist mass excision FollowUp: Biro in 10-14 days XRays: no OT Splint needed at first PO appointment: no Special Requests Hand tray Pilot [place] blade Vessel loops available but not open 3.0 monocryl 4.0 nylon Small xeroform Splint material 4 inch plaster documented in this encounterSCincinnati Children's Hospital Medical CenterDjvhry53-05-2296 Telephone encounter Note* Telephone Encounter - Linda Baig - 08/07/2023 10:34 AM EDT Called [facility]. Spoke with Marcela. No PA required. Ref# [id number] [facility] CampusEhpauy05-15-0771 Telephone encounter Note* Telephone Encounter - Linda Baig - 08/06/2023 10:03 AM EDT Sent to [facility] CampusBsydnn78-95-9644 Telephone encounter Note* Telephone Encounter - Linda Safia - 08/05/2023 1:42 PM EDT ----- Message from Merlin Johnson ATC sent at 08/05/2023 1:36 PM EDT ----- DERIC SURGERY SCHEDULING SLIP Patient: Yodit Landin Date of : 1955 Date of Surgery: 09/03/23 @ 9:30am Day of Surgery: Friday Hospital: [place] Duration: 60 min Type: Outpatient PAT: Yes 08/26@[facility]@10:00pm Med Clearance: No Anesthesia: MAC/Local Block: None Position: Supine Table: Stretcher Arm Board: Roll-up arm table Radiology: None CPT Code: 75398 DX Code: M67.431 Case # [id number] Consent: right volar radial Wrist mass excision FollowUp: Biro in 10-14 days XRays: no OT Splint needed at first PO appointment: no Special Requests Hand tray Pilot [place] blade Vessel loops available but not open 3.0 monocryl 4.0 nylon Small xeroform Splint material 4 inch plaster [facility] Okigoy97-48-6528 History of Present illness Narrative* Austin Leos MD - 08/05/2023 1:00 PM EDT Images from the original note were not included. [facility] [address] [place] [address] Dept: [phone] Dept 08/05/2023 Chief Complaint Patient presents with [...] compartment release) surgery by Dr. Woo in [place] in 2022 MRI: No Has not had an MRI Patient reports that she has had bilateral wrist masses for the past year. She states she previously underwent surgery to remove one of her wrist masses on her right side however it recurred. She hasnot had any treatments on her left side. She takes iywd-shc-zwzoans pain medicine for other problems and helps [...] Size: 2 cm X 2 cm- right, 15tym3vd left Location: radial, volar Depth: superficial Mobility: [...] She will follow-up with my physician assistant center director postoperatively. I had an extensive discussion with Ms. Yodit Landin and any family members present regarding the natural history, etiology, and rat exterminator consequences of her condition. I have outlined [...] Yodit will followup with my physician assistant center director, Nadya Harkins PA-C post operatively. She knows to call the office with any questions or concerns in the interim. Future Imaging: NONE Austin Leos MD Hand, Plastic, and Reconstructive Surgery [facility] Department of Orthopedics and Sports Medicine 08/05/2023 at 1:13 PM (Please note that portions of this note may have been completed with a voice recognition program. Efforts were made to edit the dictations but occasionally words are mis-transcribed.) documented in this [facility]03-12-2024 Instructions* Patient Instructions* Merlin Johnson ATC - 08/05/2023 1:00 PM EDT Linda Houser Liquid Sugar Fortifier for Dr. Austin Leos F: [phone] documented in this [facility]02-29-2024 Evaluation + Plan note* Assessment & Plan Note - ASAF Ramos CNP - 07/24/2023 11:20 AM ESTAssociated Problem(s): Other specified hypothyroidism Stable. Continue levothyroxine 75 mcg daily [id number] Miscellaneous Notes* Assessment & Plan Note - [...] without complication, without long-term current useof insulin ([facility]/HCC) (HCC) Controlled. Continue metformin 1000 mg twice daily * Assessment & Plan Note - ASAF Ramos CNP - 07/24/2023 11:07 AM ESTAssociated Problem(s): Hypertension Controlled. Continue irbesartan 300 mg daily * Assessment & Plan Note - ASAF Ramos CNP - 07/24/2023 11:07 AM ESTAssociated Problem(s): Hereditary hemochromatosis (HCC) Has been stable. Check cbc, iron levels today. documented in this [facility]02-29-2024 Evaluation + Plan note* Assessment & Plan Note - ASAF Ramos CNP - 07/24/2023 11:10 AM ESTAssociated Problem(s): Bilateral foot pain Previously had orthotics which alleviated the problem- refer to podiatry for evaluation and treatment [facility]02-29-2024 Evaluation + Plan note* Assessment & Plan Note - ASAF Ramos CNP - 07/24/2023 11:09 AM ESTAssociated Problem(s): Mass of joint of right wrist Most likely ganglion cyst. Follow up with ortho as scheduled. [facility]02-29-2024 Evaluation + Plan note* Assessment & Plan Note - ASAF Ramos CNP - 07/24/2023 11:08 AM ESTAssociated Problem(s): Type 2 diabetes mellitus without complication, without long-term current useof insulin ([facility]) ([facility]) Controlled. Continue metformin 1000 mg twice daily [facility]02-29-2024 Evaluation + Plan note* Assessment & Plan Note - ASAF Ramos CNP - 07/24/2023 11:07 AM ESTAssociated Problem(s): Hypertension Controlled. Continue irbesartan 300 mg daily [facility]02-29-2024 Evaluation + Plan note* Assessment & Plan Note - ASAF Ramos CNP - 07/24/2023 11:07 AM ESTAssociated Problem(s): Hereditary hemochromatosis (HCC) Has been stable. Check cbc, iron levels today. [facility] [id number] History of Present illness Narrative* Dian Stuart - 07/24/2023 10:00 AM EST Patient was identified by name and Date of . Venipuncture completed Patient was identified by name and date of -orders [facility]. Site cleansed with alcohol swab and using a sterile needle, left AC accessed per [facility]'s policy and procedure. Bandage applied to [...] 3 months (around 10/22/2023) for 3 month medcheck. SUBJECTIVE/OBJECTIVE: JAIME Landin (: 1955) is a [...] Fasting usually less than 120 consistantly. Last rqqvxnzpriT1b was 6.8. Currently on metformin daily Ganglion [...] the problem. Would like referral to a pricing director. Denies any numbness or tingling of the [...] CNP 07/24/2023 11:21 AM documented in this [facility]02-29-2024 Instructions* Patient Instructions* ASAF Ramos CNP - 07/24/2023 10:[address] [facility]. documented in this [facility]02-06-2024 Discharge summary Author Juan Jose Stallworth [facility] July 01, 2023 8:05pm Note Date/Time July 01, 2023 6 :59pm [facility] Medical Records Department [address] [place] [address] Emergency Department Summary 07/01/23 MR#: [id number] Acct: [id number] Name: YODIT LANDIN Rep #:[id number] : 1955 67 From: Juan Jose Stallworth [...] or vaginal complaints. She denies abdominal pain. [facility] Medical History (Updated 07/01/23 @ 20:02 by [...] Reports moist mucous membranes HEENT Narrative: Positive Kimani-Hallpike. Nystagmus noted. normocephalic and atraumatic Eyes PERRL [...] dizziness and on exam she has positive Malin-Hallpike. She is medicated with meclizine and Phenergan. [...] this. I was able to log into [employer], and I was not able to find [...] % (Auto) 52.3 Lymph % (Auto) 31.6 [place] % (Auto) 12.1 H Eos % (Auto) [...] Sl. Cloudy Urine pH 5.0 Ur Specific [place] 1.020 Urine Protein 15 H Urine Glucose [...] problems, contact your Primary Care Provider. Call [facility] ([phone]) or report to the closest Emergency Room. Call 911 if necessary. 07/01/232004 <Electronically signed by Juan Jose Stallworth DO> Cosigner Signature (if applicable): CC: No Primary Care Physician ~ Signed [facility] Work Phone: [phone] 157-720201-16-2024 Telephone encounter Note* Telephone Encounter - Sedrick Hemphill APRN - [facility] - 06/10/2023 7:28 AM EST Received xray results. Please notify patient, No bony mass. Recommend seeing acoustic intelligence specialist (previously referred) for further evaluation as may need an MRI to further evaluate. (This will be ordered by them if needed). [facility] [id number] Miscellaneous Notes* Telephone Encounter - ASAF Ramos CNP - 06/10/2023 7:28 AM EST Received xray results. Please notify patient, No bony mass. Recommend seeing acoustic intelligence specialist (previously referred) for further evaluation as may need an MRI to further evaluate. (This will be ordered by them if needed). * Telephone Encounter - Emily Kingsley MA - 06/09/2023 10:18 AM EST Noted. * Telephone Encounter - Coty Smith - 06/09/2023 9:45 AM EST See previous TE from today Name of caller: Yodit Contact phone number: [phone] Relationship to Patient: patient Provider: Dr Key [...] return their call: N/A documented in this [facility]01-15-2024 Telephone encounter Note* Telephone Encounter - Emily Kingsley MA - 06/09/2023 10:18 AM EST Noted. [facility] [id number] Telephone encounter Note* Telephone Encounter - Coty Smith - 06/09/2023 9:45 AM EST See previous TE from today Name of caller: Yodit Contact phone number: [phone] Relationship to Patient: patient Provider: Dr Key [...] business hours to return their call: N/A [facility] [id number] Evaluation + Plan note* Assessment & Plan Note - AASF Ramos CNP - 06/04/2023 3:20 PM ESTAssociated Problem(s): Mass of joint of right wrist Suspect ganglion cyst of the right wrist. Will obtain imaging to rule out anything worrisome. Continue compression sleeve. Referral placed to orthopedics for further evaluation and treatment due to size and bothersome. [facility] [id number] Miscellaneous Notes* Assessment & Plan Note - ASAF Ramos CNP - 06/04/2023 3:20 PM ESTAssociated Problem(s): Mass of joint of right wrist Suspect ganglion cyst of the right wrist. Will obtain imaging to rule out anything worrisome. Continue compression sleeve. Referral placed to orthopedics for further evaluation and treatment due to size and bothersome. documented in this [facility]01-10-2024 History of Present illness Narrative* Dian Stuart - 06/04/2023 1:20 PM EST Patient was identified by name and Date of . * Sedrick Hemphill, PATIENT SERVICE REPRESENTATIVE - TRAFFIC WORKFORCE REPRESENTATIVE - 06/04/2023 1:20 PM EST Images from [...] - XR wrist 3+ views right - [facility] [place] No follow-ups on file. [...] of carpal tunnel surgery in 06/2022 in [place] on the right wrist. Prior to Admission [...] CNP 06/04/2023 3:21 PM documented in this [facility]11-29-2023 Evaluation + Plan note* Assessment & Plan Note - ASAF Ramos CNP - 04/23/2023 1:24 PM ESTAssociated Problem(s): Hypertension Blood pressure initially elevated. Continue current medications and follow-up for labs [facility] [id number] Miscellaneous Notes* Assessment & Plan Note - [...] Will check hemoglobin A1c documented in this [facility]11-29-2023 Evaluation + Plan note* Assessment & Plan Note - ASAF Rmaos CNP - 04/23/2023 1:23 PM ESTAssociated Problem(s): Hereditary hemochromatosis (HCC) Check CBC CMP TIBC iron and ferritin. Consider referral to hematology. [facility] [id number] Evaluation + Plan note* Assessment & Plan Note - ASAF Ramos CNP - 04/23/2023 1:22 PM ESTAssociated Problem(s): Type 2 diabetes mellitus without complication, without long-term current useof insulin ([facility]/HCC) (HCC) Controlled. Glucose readings have been good that she brought in from home. Will check hemoglobin A1c [facility] [id number] History of Present illness Narrative* Dian Stuart - 04/23/2023 10:00 AM EST Patient was identified by name and Date of . Health Main: AWV-Today DEXA-declined Colon-completed in [place]([facility] x2 yrs ago)-sent MYRNA Pneumo-discuss with provider-done at visit DM foot-pended DM dental-done a year ago Zoster-stated it was [facility] [id number] Lung-declined RSV-declined Flu-completed at [facility] Patient was identified by name and Date [...] the original note were not included. [facility] [address] Dept: [phone] Dept Chief Complaint: Yodit Landin is an [...] Also reviewed during this visit: Found an apartment/[facility] [place]. Will be moving soon. Will be going [...] kg/m No results found. documented in this [facility]11-29-2023 Instructions* Patient Instructions* ASAF Ramos CNP [...] Recommendations: A preventive eye exam by an inspector eyeglass is recommended every 1-2 years to screen for glaucoma, cataracts, macular degeneration, and other eye disorders. A preventive dental visit is recommended every 6 months. Try to get at least 150 minutes of exercise per week or 10,000 steps per day on a pedometer. You need 1200-1500mg of calcium and 9431-6319 international units of vitamin D per day. [...] Everywhere. * Pneumococcal Conjugate Vaccine (20-Valent), ADULT ([place]) documented in this [facility]11-08-2023 Evaluation + Plan note* Assessment & Plan Note - ASAF Ramos CNP - 04/02/2023 12:51 PM ESTAssociated Problem(s): Primary osteoarthritis involving multiple joints Obtain records. For now we will continue indomethacin 50 mg daily for pain. [facility] [id number] Miscellaneous Notes* Assessment & Plan Note - [...] consider referral to hematology documented in this [facility]11-08-2023 Evaluation + Plan note* Assessment & Plan Note - ASAF Ramos CNP - 04/02/2023 12:50 PM ESTAssociated Problem(s): Hypertension Initial blood pressure elevated 161/81. Repeat blood pressure good 132/78. Continue chlorthalidone 25 mg daily, Lasix 20 mg, irbesartan 300 mg daily. [facility] [id number] Evaluation + Plan note* Assessment & Plan Note - ASAF Ramos CNP - 04/02/2023 12:49 PM ESTAssociated Problem(s): Type 2 diabetes mellitus without complication, without long-term current useof insulin (CMS/HCC) (HCC) Controlled. Glucose readings fasting under 110 consistently per patient diabetes log. Will check hemoglobin A1c at next visit. [facility] [id number] Evaluation + Plan note* Assessment & Plan Note - ASAF Ramos CNP - 04/02/2023 12:10 PM ESTAssociated Problem(s): Hereditary hemochromatosis (HCC) Obtain records. Return for labs as scheduled (check cbc, cmp, TIBC, iron and ferritin) consider referral to hematology [facility] [id number] History of Present illness Narrative* Dian Stuart - 04/02/2023 11:00 AM EST Patient was identified by name and Date of . Health Main: AWV-needs scheduled DEXA-pended Colon-pended Covid-declined PHQ-completed Hep C-declined Tdap-declined Mammo-completed Sept Zoster-declined Pneumo-declined [place] eye-[facility] [place] Flu-completed [facility] MYRNA SENT TO [facility](PCP[facility] AND [facility] * ASAF Ramos CNP - 04/02/2023 11:00 AM EST Images from the original note were not included. 04/02/2023 Yodit Landin (: 1955) is a 67 y.o. female , New patient, here for evaluation of the following chief complaint(s): New Patient and Health Maintenance (AWV-needs scheduled/DEXA-pended/Colon-pended/Covid-declined/PHQ-completed/Hep C-declined/Tdap-declined/Mammo-completed Sept/Zoster-declined/Pneumo-declined/Flu-completed [facility]) ASSESSMENT/PLAN: 1. Type 2 diabetes mellitus without complication, without long-term current use of insulin ([facility]/HCC) (HCC) Assessment & Plan: Controlled. Glucose [...] as new patient, previous primary care provider [place] provider, last seen? -01/2023 by previous provider. Specialists/other providers? 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 Chief complaint(s): New Patient and Health Maintenance (AWV-needs scheduled/DEXA-pended/Colon-pended/Covid-declined/PHQ-completed/Hep C-declined/Tdap-declined/Mammo-completed Jan/Zoster-declined/Pneu mo-declined/Flu-completed [facility]) Has been out of state for about 10 years. 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 Recently moved back to [place] to be close to her son and mpprsyrj-is-vsz whom she states were having some marital [...] Reports she did have a colonoscopy last [phone] in [place]-reports she was told it was normal -jodi [...] is tolerable. Also sees a chiropractor in [place]. Hypertension-states her blood pressure is normally in [...] CNP 04/02/2023 12:59 PM documented in [facility] [id number] Telephone encounter Note* Telephone Encounter - Juana Alegria - 03/21/2023 9:43 AM EDT Name of caller: Yodit Landin Relation to patient: patient Contact phone number: [phone] Appointment scheduled with: Sedrick Hemphill Appointment date [...] provider should be aware of: diabetic, hemochromatosis [facility] [id number] Miscellaneous Notes* Telephone Encounter - Juana Alegria - 03/21/2023 9:43 AM EDT Name of caller: Yodit Landin Relation to patient: patient Contact phone number: [phone] Appointment scheduled with: Sedrick Hemphill Appointment date [...] aware of: diabetic, hemochromatosis [facility] No data available for this section [facility] Evaluation note* Diagnosis Type 2 diabetes mellitus without complication, without long-term current use of insulin (CMS/HCC) (HCC)- Primary Hereditary hemochromatosis (HCC) Hereditary hemochromatosis Primary hypertension Unspecified essential hypertension [facility]* Diagnosis Routine general medical examination at health care facility- Primary Routine general medical examination at a health care facility Type 2 diabetes mellitus without complication, without long-term current use of insulin (CMS/HCC) (HCC) Primary hypertension Unspecified essential hypertension Hereditary hemochromatosis (HCC) Hereditary hemochromatosis Hypothyroidism, unspecified type Immunization due documented in this encounter [facility]* Diagnosis Mass of joint of right wrist- Primary documented in this encounter [facility]* Diagnosis Onset Date Resolution Status Dehydration acute Nausea vomiting and diarrhea acute [facility] Work Phone: Evaluation note* Diagnosis Hereditary hemochromatosis (HCC)- Primary Hereditary hemochromatosis Primary hypertension Unspecified essential hypertension Type 2 diabetes mellitus without complication, without long-term current use of insulin (CMS/HCC) (HCC) Bilateral foot pain Mass of joint of right wrist Other specified hypothyroidism [facility]* Diagnosis Mass of joint of right wrist Ganglion, right wrist documented in this encounter [facility]* Diagnosis Mass of joint of right wrist- Primary Ganglion, right wrist [facility]* Diagnosis Mass of joint of right wrist- Primary Ganglion, right wrist documented in this encounter [facility]* Diagnosis H/O excision of mass- Primary Ganglion, right wrist documented in this encounter [facility]* Diagnosis Visit for wound check- Primary documented in this encounter [facility]* Diagnosis S/P excision of ganglion cyst- Primary Mass of joint of right wrist documented in this encounter [facility]* Diagnosis Mass of joint of right wrist S/P excision of ganglion cyst documented in this encounter [facility]* Diagnosis Type 2 diabetes mellitus without complication, without long-term current use of insulin (CMS/HCC) (HCC)- Primary Hereditary hemochromatosis (HCC) Hereditary hemochromatosis Swelling of both lower extremities Bilateral foot pain Primary hypertension Unspecified essential hypertension documented in this encounter [facility] note* Diagnosis Mass of joint of right wrist- Primary S/P excision of ganglion cyst documented in this encounter [facility]* Diagnosis Left buttock pain- Primary Unspecified myalgia and myositis Bilateral foot pain Colon cancer screening Special screening for malignant neoplasms, colon documented in this encounter [facility]* Diagnosis Anemia, unspecified type- Primary Iron deficiency anemia, unspecified iron deficiency anemia type Primary hypertension Unspecified essential hypertension Gastroesophageal reflux disease without esophagitis Esophageal reflux Hypothyroidism, unspecified type Mixed hyperlipidemia documented in this encounter [facility]* Diagnosis Chronic left-sided low back pain without sciatica- Primary Left buttock pain Unspecified myalgia and myositis documented in this encounter [facility]* Diagnosis Chronic left-sided low back pain without sciatica documented in this encounter [facility]* Diagnosis Osteopenia of lumbar spine- Primary Degenerative disc disease, lumbar documented in this encounter [facility]* Diagnosis Swelling of both lower extremities documented in this encounter [facility]* Diagnosis Osteopenia of lumbar spine- Primary Degenerative disc disease, lumbar documented in this encounter [facility]* Diagnosis Vitamin D deficiency- Primary Hypothyroidism, unspecified type documented in this encounter [facility]* Diagnosis Type 2 diabetes mellitus without [...] Bilateral foot pain [facility]* Diagnosis History of tobacco use Personal history of tobacco use, presenting hazards to health [facility]* Diagnosis Murmur, cardiac Undiagnosed cardiac murmurs [facility]* Diagnosis Hypothyroidism, unspecified type [facility]* Diagnosis Encounter for screening mammogram for malignant neoplasm of breast [facility]* Diagnosis Preoperative clearance- Primary Unspecified pre-operative examination Type 2 diabetes mellitus without complication, without long-term current use of insulin (CMS/HCC) (HCC) Primary hypertension Unspecified essential hypertension [facility]* Diagnosis Preoperative clearance- Primary Unspecified pre-operative examination Type 2 diabetes mellitus without complication, without long-term current use of insulin (CMS/HCC) (HCC) Primary hypertension Unspecified essential hypertension [facility]* Diagnosis Type 2 diabetes [...] Unspecified essential hypertension [facility]* Diagnosis Type 2 diabetes [...] hypercholesterolemia Immunization due documented in this encounter [facility]* Diagnosis Type 2 diabetes mellitus without [...] right knee- Primary [facility] in [facility]* Diagnosis Type 2 diabetes [...] Vitamin D deficiency [facility]* [...] Primary Pure hypercholesterolemia [facility]* Diagnosis Type 2 diabetes [...] both lower extremities [facility]* Diagnosis Type 2 diabetes [...] knee, unspecified osteoarthritis type- Primary Pure hypercholesterolemia Non-ST elevation myocardial infarction (NSTEMI) (HCC)- Primary Acute myocardial infarction, subendocardial infarction, episode of care unspecified Pure hypercholesterolemia Primary hypertension Unspecified essential hypertension Type 2 diabetes mellitus without complication, without long-term current use of insulin (HCC) Bradycardia Other specified cardiac dysrhythmias [facility]* Diagnosis Type 2 diabetes [...] knee, unspecified osteoarthritis type- Primary Pure hypercholesterolemia Non-ST elevation myocardial infarction (NSTEMI) (HCC)- Primary Acute myocardial infarction, subendocardial infarction, episode of care unspecified Pure hypercholesterolemia Primary hypertension Unspecified essential hypertension Type 2 diabetes mellitus without complication, without long-term current use of insulin (HCC) Bradycardia Other specified cardiac dysrhythmias Post-nasal drainage Other diseases of nasal cavity [...] knee, unspecified osteoarthritis type- Primary Pure hypercholesterolemia Non-ST elevation myocardial infarction (NSTEMI) (HCC)- Primary Acute myocardial infarction, subendocardial infarction, episode of care unspecified Pure hypercholesterolemia Primary hypertension Unspecified essential hypertension Type 2 diabetes mellitus without complication, without long-term current use of insulin (HCC) Bradycardia Other specified cardiac dysrhythmias Pure hypercholesterolemia [facility]* Diagnosis Type 2 diabetes [...] knee, unspecified osteoarthritis type- Primary Pure hypercholesterolemia Non-ST elevation myocardial infarction (NSTEMI) (HCC)- Primary Acute myocardial infarction, subendocardial infarction, episode of care unspecified Pure hypercholesterolemia Primary hypertension Unspecified essential hypertension Type 2 diabetes mellitus without complication, without long-term current use of insulin (HCC) Bradycardia Other specified cardiac dysrhythmias Pure hypercholesterolemia [facility]* Diagnosis Type 2 diabetes mellitus without complication, without long-term current use of insulin (HCC)- Primary Hereditary hemochromatosis Primary hypertension Unspecified essential hypertension Routine general medical examination at health care facility- Primary Routine general medical examination at a health care facility Type 2 diabetes mellitus without complication, without long-term current use of insulin (HCC) Primary hypertension Unspecified essential hypertension Hereditary hemochromatosis Hypothyroidism, unspecified type Immunization due Hereditary hemochromatosis- Primary Primary hypertension Unspecified essential hypertension Type 2 diabetes mellitus without complication, without long-term current use of insulin (HCC) Bilateral foot pain Mass of joint of right wrist Other specified hypothyroidism Type 2 diabetes mellitus without complication, without long-term current use of insulin (HCC)- Primary Hereditary hemochromatosis Swelling of both lower extremities [...] disease without esophagitis Esophageal reflux Hereditary hemochromatosis Acquired hypothyroidism Unspecified hypothyroidism Type 2 diabetes mellitus without complication, without long-term current use of insulin (HCC) Pure hypercholesterolemia Immunization due Acute pain of right knee- Primary Osteoarthritis of right knee, unspecified osteoarthritis type- Primary Pure hypercholesterolemia Non-ST elevation myocardial infarction (NSTEMI) (HCC)- Primary Acute myocardial infarction, subendocardial infarction, episode of care unspecified Pure hypercholesterolemia Primary hypertension Unspecified essential hypertension Type 2 diabetes mellitus without complication, without long-term current use of insulin (HCC) Bradycardia Other specified cardiac dysrhythmias Encounter for screening mammogram for malignant neoplasm of breast documented in this encounter [facility]* Diagnosis Type 2 diabetes mellitus without complication, without long-term current use of insulin (HCC)- Primary Hereditary hemochromatosis Primary hypertension Unspecified essential hypertension Routine general medical examination at health care facility- Primary Routine general medical examination at a health care facility Type 2 diabetes mellitus without complication, without long-term current use of insulin (HCC) Primary hypertension Unspecified essential hypertension Hereditary hemochromatosis Hypothyroidism, unspecified type Immunization due Hereditary hemochromatosis- Primary Primary hypertension Unspecified essential hypertension Type 2 diabetes mellitus without complication, without long-term current use of insulin (HCC) Bilateral foot pain Mass of joint of right wrist Other specified hypothyroidism Type 2 diabetes mellitus without complication, without long-term current use of insulin (HCC)- Primary Hereditary hemochromatosis Swelling of both lower extremities [...] disease without esophagitis Esophageal reflux Hereditary hemochromatosis Acquired hypothyroidism Unspecified hypothyroidism Type 2 diabetes mellitus without complication, without long-term current use of insulin (HCC) Pure hypercholesterolemia Immunization due Acute pain of right knee- Primary Osteoarthritis of right knee, unspecified osteoarthritis type- Primary Pure hypercholesterolemia Non-ST elevation myocardial infarction (NSTEMI) (HCC)- Primary Acute myocardial infarction, subendocardial infarction, episode of care unspecified Pure hypercholesterolemia Primary hypertension Unspecified essential hypertension Type 2 diabetes mellitus without complication, without long-term current use of insulin (HCC) Bradycardia Other specified cardiac dysrhythmias Type 2 diabetes mellitus without complication, without long-term current use of insulin (HCC)- Primary Hypersomnia Hypersomnia, unspecified Pure hypercholesterolemia Primary hypertension Unspecified essential hypertension Snoring Other dyspnea and respiratory abnormality Presence of coronary angioplasty implant and graft [facility]* Diagnosis Type 2 diabetes mellitus without complication, without long-term current use of insulin (HCC)- Primary Hereditary hemochromatosis Primary hypertension Unspecified essential hypertension Routine general medical examination at health care facility- Primary Routine general medical examination at a health care facility Type 2 diabetes mellitus without complication, without long-term current use of insulin (HCC) Primary hypertension Unspecified essential hypertension Hereditary hemochromatosis Hypothyroidism, unspecified type Immunization due Hereditary hemochromatosis- Primary Primary hypertension Unspecified essential hypertension Type 2 diabetes mellitus without complication, without long-term current use of insulin (HCC) Bilateral foot pain Mass of joint of right wrist Other specified hypothyroidism Type 2 diabetes mellitus without complication, without long-term current use of insulin (HCC)- Primary Hereditary hemochromatosis Swelling of both lower extremities [...] disease without esophagitis Esophageal reflux Hereditary hemochromatosis Acquired hypothyroidism Unspecified hypothyroidism Type 2 diabetes mellitus without complication, without long-term current use of insulin (HCC) Pure hypercholesterolemia Immunization due Acute pain of right knee- Primary Osteoarthritis of right knee, unspecified osteoarthritis type- Primary Pure hypercholesterolemia Non-ST elevation myocardial infarction (NSTEMI) (HCC)- Primary Acute myocardial infarction, subendocardial infarction, episode of care unspecified Pure hypercholesterolemia Primary hypertension Unspecified essential hypertension Type 2 diabetes mellitus without complication, without long-term current use of insulin (HCC) Bradycardia Other specified cardiac dysrhythmias Type 2 diabetes mellitus without complication, without long-term current use of insulin (HCC)- Primary Hypersomnia Hypersomnia, unspecified Pure hypercholesterolemia Primary hypertension Unspecified essential hypertension Snoring Other dyspnea and respiratory abnormality Presence of coronary angioplasty implant and graft Type 2 diabetes mellitus without complication, without long-term current use of insulin (HCC)- Primary [facility] Discharge instructions No data available for this section [facility] Discharge instructionsAmbulatory Orders* Phase II, Outpatient Cardiac Rehab Location: None Selected [facility] Work Phone: Progrjio note No data available for this section [facility] note Author Tabby Do [facility] Note Date/Time February 22, 2025 11:19am [facility] [address] [place] [address] OFFICE VISIT Date of Service: 02/22/25 MR#: [id number] Acct: [id number] Name: YODIT LANDIN Rep #: [id number] : 1955 Provider: DENISE Do Age/Sex: 69/F Location: [facility] Status: Signed Intake Vital Signs 02/04/25 09:36 02/22/25 10:26 Height 5 ft 4 in 5 ft 4 in Weight: 200 lb BMI 34.3 Intake Visit Reasons: RIGHT KNEE Chief Complaint: Right knee cortisone injection Accompanied by: Self Is patient in pain?: No Allergies atorvastatin Allergy (Severe, Verified 02/22/25 10:31) Hives codeine Adverse Reaction (Intermediate, Verified 02/22/25 10:31) Vomiting sulfamethoxazole (From Bactrim) Adverse Reaction (Intermediate, Verified 02/22/25 10:31) Vomiting trimethoprim (From Bactrim) Adverse Reaction (Intermediate, Verified 02/22/25 10:31) Vomiting Medications ?Medication ?Instructions ?Recorded ?Confirmed ?Type metformin 1,000 mg tablet 1,000 mg PO .QAM diabetes 02/22/25 History Held on 12/07/24. Instructions: Resume on 12/12/24. omega 4-uxc-koo-fish oil 1,200 mg 1 cap PO DAILY suppl ement 01/16/24 02/22/25 History (144 mg-216 mg) capsule (Fish Oil) omeprazole 40 mg capsule,delayed 40 mg PO QDAY reflux 01/16/24 02/22/25 History release vitamin E (dl, acetate) 180 mg 180 mg PO DAILY supplem ent 01/16/24 02/22/25 History (400 unit) capsule digestive enzymes 1 tab PO TID supplement 02/2402/22/25 History metformin 500 mg tablet 500 mg PO .1500, 2100 diabet es 03/15/24 02/22/25 History Held on 12/07/24. Instructions: Resume on 12/12/24. vit A 750 mcg-vit C 150 mg-D3 1 cap PO TID supplement 03/15/24 02/22/25 History 31.25 szf-oanb-qieqvhzck-quercet capsule (Immune Essentials Daily) aspirin 81 mg tablet,delayed 81 mg PO BREAKFAST #0 tab s 12/07/24 02/22/25 Rx release cholecalciferol (vitamin D3) 50 50 mcg PO QDAY 5 02/22/25 History mcg (2,000 unit) tablet clopidogrel 75 mg tablet 75 mg PO DAILY #90 tabs 11/2402/22/25 Rx ferrous sulfate 325 mg (65 mg 325 mg PO QDAY 12/13/24 02/22/25 History iron) tablet levothyroxine 150 mcg tablet 150 mcg PO QDAY 12/13/24 02/22/25 History nystatin 100,000 unit/gram topical topical 12/13/24 History cream furosemide 40 mg tablet (Lasix) 40 mg PO QDAY #90 tabs 01/11/25 02/22/25 Rx carvedilol 12.5 mg tablet 12.5 mg PO BID dose increase d 01/27/25 02/22/25 Rx again due to hypertension #60 tabs rosuvastatin 20 mg tablet 20 mg PO QHS 02/22/25 History Have you fallen in the past year?: No PFSH Medical History CKD (chronic kidney disease) Anemia Wears partial dentures Wears contact lenses Wears glasses Post-menopausal Thyroid disease Diabetes Arthritis High cholesterol Hemochromatosis Injury of head and neck Gastric reflux Former smoker History of pain when walking Hypertension History of echocardiogram Dehydration Nausea vomiting and diarrhea Surgical History Stented coronary artery (12/06/24) History of surgery on right wrist Hx of repair of right rotator cuff History of 2 sections Hx of ovarian cystectomy Hx of hysterectomy Hx of tonsillectomy Family History Mother Ovarian cancer Father CAD (coronary artery disease) Heart disease Hypertension Myocardial infarction Social History household members: none Smoking Status: Former smoker how long ago did patient quit smoking: Quit 7 years prior, approximate 1 pack/day since teen until quit. alcohol intake: never substance use type: does not use caffeine: Yes Type: coffee Number of servings: 1 HPI RIGHT KNEE Details: This documentation accurately reflects the service provided and the decisions made by me, DENISE Meza 02/22/25 1026. Part of today?s visit was documented by Peace Levine MA, acting as scribe. YODIT LANDIN is a pleasant 69 year old F here today for evaluation of right kneepain at patient request of cortisone injection. Patient has a history of right knee OA and last received a cortisone injection in July 2024 with good and sustained relief. However over the last several weeks, patient is noticing increased achiness, pain to the lateral region, occasional painful popping. No episodes of give way. Patient is currently participating in cardiac rehab and he had an GA in November 2024 which required stenting. Denies any recent injury. Tylenol on as needed basis helps some. ROS Const All systems reviewed & are unremarkable except as noted in H and other (A&O x 3,no apparent distress. No recent illness.) ENT Denies dizziness Card Denies chest pain, Denies dyspnea, Denies edema and Reports other (No palpitations) Resp Denies cough, Denies dyspnea and Reports other (No recent URI) GI Reports system reviewed and no additional complaints, except as documented, Denies nausea and Denies vomiting Musc Reports as per HPI, Reports arthralgias and Reports joint swelling Neuro No dizziness and Yes other (Paresthesias as noted in HPI) Psych Reports system reviewed and no additional complaints, except as documented Lake/Lymph Denies easy bleeding and Denies easy bruising Ortho Exam Right Knee Skin/Wound: Yes swelling (minimal) Contralateral Normal: Yes Homans Sign: No 1+: Effusion Examination: Yes Lat jt line tenderness, Yes Crepitus, No Issa's Test, No TTP Patellar tendon, No TTP Tibial tubercle, No TTP Pes Anserine and No Illiotibial band tenderness Quad Atrophy: No Stability: NML: Anterior Drawer, NML: Posterior Drawer, NML: Valgus 0 and NML: Varus 0 Patella Grind: No KNEE: There is mild suprapatellar swelling noted. Skin is pink, warm, dry and intact. ROM 0-120 degrees, mild palpable crepitus Popliteal fossa is soft and nontender. Denies any calf pain or tenderness, negative Homans. Full range of motion of ankle and foot with no knee symptom aggravation, distal pulse +2 and easily palpable. There is no instability on exam, symptoms do not aggravate with single-leg weightbearing Office Procedures Ortho Injections Injections Yes Knee Right Is this a patient provided medication?: No Details: We discussed risk and benefits of injectable steroid. Obtained written and oral consent for injection. Under sterile conditions, skin was prepped with Betadineand alcohol prep, topical pain ease spray applied; injected the patient's right knee with 3cc 0.25% bupivacaine 3cc 1% lidocaine 1cc Kenalog (40mg) and was easily administered and tolerated well using a 22g 1 1/2 needle using a superior lateral approach with leg in extension. The patient tolerated the injection well without any noted complication, No bleeding post injection, dry sterile bandage applied. Patient should call our office if redness develops, pain worsens or if they have any concerns. Office Meds Kenalog 40 mg/mL suspension for injection Performing Provider: DENISE Meza Performing Location: [facility] Administered by: DENISE Meza on 02/22/25 11:21 Dose Route Admin Location Dispensed Lot Number Expiration Date Pack age NDC NDC Over[employer]ter 40 mg intra-articular right knee 1 mL [id number] 05/26/26 69062-808-61 [id number] [employer] Supplemental Info Reviewed x-ray imaging from April 2024 and previous office note from July 2024 on date of visit. Knee X-rays from April 2024 show mild to moderate degenerative changes, there is a large osteophyte formation at the lateral compartment of the knee which 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 Thereis mild joint space narrowing, no weightbearing views were obtained at that time. Coding Level of Care Code Off vis,est,level 4 Diagnoses Primary osteoarthritis of right knee M17.11 Osteoarthritis type: primary CPT Codes duplication specialist.knee (21282) Comment Pt had GA 11/2024. Multiple med changes were reviewed as part of clinical decision making Assessment and Plan Assessment and Plan (1) Osteoarthritis of right knee: Status: Acute Qualifiers: Osteoarthritis type: primary Qualified Code(s): M17.11 - Unilateral primary osteoarthritis, right knee Plan: Tolerated cortisone injection well with positive lidocaine suppression. Reviewed monitoring blood sugars daily. We discussed no added sugars to the diets, portion control with carbohydrate servings over the next week to 10 days. Drink plenty of non-sweetened fluids and water. Patient has been advised to contact her PCP for any concerns in blood sugar readings or if they reach 200 orgreater. We reviewed use of topical pain relief per package directions, Tylenol on as needed basis. Encouraged to begin stretching and previously provided AAOS knee conditioning exercises in approximately 5 to 7 days and advance as tolerated. If interested in pursuing formal PT, she may contact the office. Recommend as needed follow-up on as needed basis, new symptoms or other concerns. Patient in agreement with plan of care This document was prepared using Dragon dictation and may contain development mechanic errors. Orders: Orders Ortho Injections Today M25.561 - Pain in right knee Clinical Quality Measures Falls Risk Screening/Assistive Devices Have you fallen in the past year?: No 02/22/25 1152 <Electronically signed by Tabby WALKER> Date _ Tabby Peterson Signature: Date (if applicable) CC: ~ [facility] [employer] [facility] Work Phone: Progress note Author Rula Dsouza [facility] Note Date/Time March 14, 2025 1 2:39pm [facility] [address] [place] [address] OFFICE VISIT Date of Service: 03/14/25 MR#: [id number] Acct: [id number] Name: YODIT LANDIN Rep #: [id number] : 1955 Provider: DENISE Dsouza Age/Sex: 69/F Location: [facility] Status: Signed HPI HPI History of Present Illness Details: This is a 69-year-old female who presents today for a posthospital follow-up. She was seen at [facility] in November 2024 for non-ST elevated myocardial infarction. Echocardiogram showed LV function 54% and severely hypokinetic inferior basal and basal inferoseptal wall. Heart catheterization on 12/06/2024 showed totally occluded RCA and high-grade stenosis of the obtuse marginal branch. She proceeded with drug-eluting stent to mid RCA. It was recommend that if symptoms continue despite medical therapy to consider PCI to OM. She also has a past medical history of hypertension, hyperlipidemia, hemochromatosis, and diabetes mellitus type 2. She denies chest, arm, jaw, or neck discomfort. She denies palpitations. She denies bilateral lower extremity edema. She denies claudication. She denies shortness of breath with activity, shortness of breath at rest, orthopnea, or PND. She denies chronic cough. She denies significant, sudden weight gain. She denies lightheadedness, dizziness, near-syncope, or syncope. She denies blood in urine, blood in stool, or epistaxis. He denies fever with chills. Shedenies myalgia. She states occasional fatigue. Her exercise level has remainedstable. Intake Vital Signs 12/13/24 09:19 03/14/25 07:40 Height 5 ft 4 in 5 ft 4 in Weight: 206 lb BMI 35.3 BP 154/80 H Blood Pressure Location Lt brachial Position Sitting Respiration 18 Pulse 89 Pulse Source Monitor Pulse Oximetry (%) 6 Intake Visit Reasons: 3 M FU [employer] Officer Required: No Is patient in pain?: No Allergies atorvastatin Allergy (Severe, Verified 03/14/25 10:53) Hives codeine Adverse Reaction (Intermediate, Verified 03/14/25 10:53) Vomiting sulfamethoxazole (From Bactrim) Adverse Reaction (Intermediate, Verified 03/14/25 10:53) Vomiting trimethoprim (From Bactrim) Adverse Reaction (Intermediate, Verified 03/14/25 10:53) Vomiting Medications ?Medication ?Instructions ?Recorded ?Confirmed ?Type metformin 1,000 mg tablet 1,000 mg PO .QAM diabetes 03/14/25 History omega 5-wnp-tmk-fish oil 1,200 mg 1 cap PO DAILY suppl ement 01/16/24 03/14/25 History (144 mg-216 mg) capsule (Fish Oil) omeprazole 40 mg capsule,delayed 40 mg PO QDAY reflux 01/16/24 03/14/25 History release vitamin E (dl, acetate) 180 mg 180 mg PO DAILY supplem ent 01/16/24 03/14/25 History (400 unit) capsule digestive enzymes 1 tab PO TID supplement 02/2403/14/25 History metformin 500 mg tablet 500 mg PO .1500, 2100 diabet es 03/15/24 03/14/25 History vit A 750 mcg-vit C 150 mg-D3 1 cap PO TID supplement 03/15/24 03/14/25 History 31.25 ytx-evvv-wuqvndxff-quercet capsule (Immune Essentials Daily) aspirin 81 mg tablet,delayed 81 mg PO BREAKFAST #0 tab s 12/07/24 03/14/25 Rx release cholecalciferol (vitamin D3) 50 50 mcg PO QDAY 5 03/14/25 History mcg (2,000 unit) tablet clopidogrel 75 mg tablet 75 mg PO DAILY #90 tabs 11/2403/14/25 Rx ferrous sulfate 325 mg (65 mg 325 mg PO QDAY 12/13/24 03/14/25 History iron) tablet levothyroxine 150 mcg tablet 150 mcg PO QDAY 12/13/24 03/14/25 History nystatin 100,000 unit/gram topical topical 12/13/24 History cream furosemide 40 mg tablet (Lasix) 40 mg PO QDAY #90 tabs 01/11/25 03/14/25 Rx rosuvastatin 20 mg tablet 20 mg PO QHS 02/22/25 History carvedilol 25 mg tablet 25 mg PO BID #60 tabs 03/14/25 Rx Ejection fraction %: 54 Have you fallen in the past year?: No PFSH Medical History CKD (chronic kidney disease) Anemia Wears partial dentures Wears contact lenses Wears glasses Post-menopausal Thyroid disease Diabetes Arthritis High cholesterol Hemochromatosis Injury of head and neck Gastric reflux Former smoker History of pain when walking Hypertension History of echocardiogram Dehydration Nausea vomiting and diarrhea Surgical History Stented coronary artery (12/06/24) History of surgery on right wrist Hx of repair of right rotator cuff History of 2 sections Hx of ovarian cystectomy Hx of hysterectomy Hx of tonsillectomy Family History Mother Ovarian cancer Father CAD (coronary artery disease) Heart disease Hypertension Myocardial infarction Social History household members: none Smoking Status: Former smoker how long ago did patient quit smoking: Quit 7 years prior, approximate 1 pack/day since teen until quit. alcohol intake: never substance use type: does not use caffeine: Yes Type: coffee Number of servings: 1 ROS Const Const: Negative for fatigue, weakness, headache(s) or frequent falls Eyes Eyes: Negative for blurry vision ENT ENT: Negative for headache(s), dizziness or Nosebleed/epistaxis Cardio Chest Pain: No Palpitations: No Edema: None Muscle aches with walking: None Resp Respiratory: Negative for SOB with activity, SOB at rest or SOB orthopnea\SOB lying down GI GI: Negative nausea, vomiting, heartburn, bright, red blood in stools or black,tarry stools : Negative for hematuria Musc Musc: Negative for muscle aches/ myalgia Skin Skin: Negative non-healing lesions or rash Neuro Neuro: Negative for dizziness, lightheadedness, near syncope, syncope, frequent falls, headache(s), weakness or blurry vision Endo Endo: Negative for fatigue Allergy Allergy/Immunology: Negative for rash Cardiology Exam Const Appearance: cooperative, healthy appearing, comfortable and no acute distress Nutritional Appearance: well nourished and obese Orientation: alert, awake and oriented x3 Head Head: normal to inspection Ears: hearing grossly normal bilaterally Nose: external nose normal Face and Sinus: face symmetric Mouth: moist mucous membranes Eyes General: appearance normal, both eyes and all related structures Eyelids: eyelids normal EOM: EOM intact bilaterally Neck Neck: normal visual inspection and no JVD Carotids: normal carotid upstroke Chest Chest inspection: normal inspection of the chest, symmetric chest movement and normal respiratory effort; Negative cough Auscultation: Bilateral: Clear to Auscultation Cardio Rate: regular rate Rhythm: regular rhythm Heart sounds: S1 normal and S2 normal; Negative rub, gallop or murmur GI GI: normal to inspection and obese Neuro General: patient alert, patient awake, patient oriented x3 and CN's II-XI intactbilaterally Skin Skin: no rashes or lesions noted Extremities Pulses: Normal: Right Posterior Tibial Pulse, Left Posterior Tibial Pulse, RightRadial Pulse and Left Radial Pulse Lower Extremity Edema: None: Bilateral Psych Psychological: normal affect Supplemental Info Supplemental Information Echocardiogram 12/05/2024 Interpretation Summary Normal LV size. Left ventricular systolic function is normal. Stage 1 diastolic dysfunction. The estimated ejection fraction is 54 %. Pulmonary artery systolic pressure is 25 mmHg. Diagnostics: Electrocardiogram Echocardiogram Cardiac Catheterization Chest X-Ray Abdomen/Pelvis CT Past Visits: Cardiology Visit Today Assessment and Plan Assessment and Plan (1) Stented coronary artery: Status: Chronic Comment: Gabbs Goodspring 2.5 X 22 mm to mid RCA 12/06/24, 80% lesion to OM; Plan: Will monitor OM disease and consider repeat evaluated pending her overall progress. She notes fingers feeling tingly when she present to ER in November 2024. She will continue current medications. Will repeat echocardiogram to reassess LVwall motion post stenting. She denies any significant exertional symptoms. No changes made. (2) Hypertension: Status: Chronic Comment: CONTROLLED ON MED Plan: This is elevated today. Will increase Coreg to 25mg PO BID. we discussed adding additional medication such as irbesartan as she was on previously. She wishes to keep her total number of pills as low as possible. We will see how she responds with increase in carvedilol and adjust medication as needed. (3) High cholesterol: Status: Chronic Plan: Lipid panel from 09/06/2024 showed Total Cholesterol: 166, HDL: 40, LDL: 75, andTriglycerides: 258. She will continue atorvastatin. She was reminded of goal LDLbelow 70 with ideal goal 50-55 as a diabetic for secondary prevention. This is being followed by PCP. (4) Hemochromatosis: Status: Chronic Plan: This is followed by PCP. She denies current treatment other than diet modification. She is currently on an iron supplement. She states this is monitored regularly. Echocardiogram in November 2024 showed LV function 54%. (5) Diabetes: Status: Chronic Plan: This is managed with PCP. She is currently on Metformin. We discuss PRECIDENTD research opportunity. She declines due to not willing to take GLP-1. Given diabetes and CAD, she should be considered for SGLT2 inhibitor. She was encouraged to discuss this further with primary care provider at next appointment. She again acknowledges that her goal is to reduce number of pills and thus it is unclear if starting Farxiga or Jardiance would be enough to reduce or eliminate metformin. Orders: Orders Echo, Limited Study Today I10 - Essential (primary) hypertension Medications: Changed From carvedilol must administer with a meal/food 12.5 mg PO BID 60 tabs 11RF dose increased again due to hypertension To carvedilol must administer with a meal/food 25 mg PO BID 60 tabs 11RF Resumed metformin 1,000 mg PO .QAM metformin 500 mg PO .1500, 2100 Plan Details Additional Comments: Thank you for allowing us to participate in the patients plan of care, if you have any questions please do not hesitate to call. Plan was reviewed with patient/family member along with red flag symptoms. Understanding was acknowledged. Questions were answered to apparent satisfaction. This note was generated using a voice recognition system and there may be incorrect words, spelling or punctuation that were not noted when reviewing the office note prior to saving. Portions of this documentation were copied and pasted from previous office visitnotes to provide a cohesive continuity of the history. The note has been reviewed, edited, and updated, as necessary. Follow Up: 6 Months () Coding Level of Care Code Off vis,est,level 4 Diagnoses Stented coronary artery Z95.5 Hypertension I10 High cholesterol E78.00 Hemochromatosis E83.119 Diabetes E11.9 Coding Level of Care Code Off vis,est,level 4 Diagnoses Stented coronary artery Z95.5 Hypertension I10 High cholesterol E78.00 Hemochromatosis E83.119 Diabetes E11.9 Clinical Quality Measures Falls Risk Screening/Assistive Devices Have you fallen in the past year?: No Cardiac Ejection fraction %: 54 03/14/25 1224 <Electronically signed by Rula WALKER> Date _ Rula WALKER Cosigner Signature: Date (if applicable) CC: DENISE Hemphill; Dr. Moshe Key MD ~ [employer] [employer] [facility] Work Phone: Reason for referral (narrative)* Consultation (Routine) - Pending Review Specialty Diagnoses / Procedures Referred By Moody bey Referred To Contact Orthopedic Surgery Diagnoses Mass of joint of right wrist Sedrick Hemphill APRN - CNP [address] [place] [address] [facility] [address] [place] [address] Referral ID Status Reason Start Date Expiration Date Visits Requested Visits Authorized [id number] Pending Review Specialty Services Required 06/04/2023 06/03/2024 1 1 [facility] Consultation (Routine) - Pending Review Specialty Diagnoses / Procedures Referred By Contac t Referred To Contact Podiatry Diagnoses Bilateral foot pain Procedures MO OFFICE/OUTPATIENT NEW HIGH MDM 60 MINUTES Sedrick Hemphill PATIENT SERVICE REPRESENTATIVE - TRAFFIC WORKFORCE REPRESENTATIVE [address] [facility] [place] [address] [place] [address] Alvin Beltran, VENUS [address] [place] [address] Referral ID Status Reason Start Date Expiration Date Visits Requested Visits Authorized [id number] Pending Review Specialty Services Required 07/24/2023 07/23/2024 1 1 [facility] Consultation (Routine) - Pending Review Specialty Diagnoses / Procedures Referred By Contac t Referred To Contact Orthopedic Surgery Diagnoses Degenerative disc disease, lumbar Sedrick Hemphill APRN - TRAFFIC WORKFORCE REPRESENTATIVE [address] [facility] [place] [address] Yanick Meléndez [facility] [address] [place] [phone] Referral ID Status Reason Start Date Expiration Date Visits Requested Visits Authorized [id number] Pending Review Specialty Services Required 12/29/2023 12/28/2024 1 1 [facility] (narrative)No reason for referral information [facility] Work Phone: Summary Purpose Family History Relationship Condition Age at Onset Recorded Date/T yandel mother Malignant neoplasm of ovary Unknown father Coronary artery disease Unknown Cardiac disease Unknown Hypertension Unknown Myocardial infarction Unknown No Family History Records Found Advance Directives Advance Directive Response Recorded Date/ Time Living Will No July 01 5:51pm Power of Tufter No July 01, 2023 5:51pm Latest Code [...] Do you have a Healthcare Power of Tufter? No December 31, 2023 2:55pm Advance Directive Response Recorded Date/ Time Do you have a Healthcare Power of Tufter? Yes December 05, 2024 6:59pm Name of Medical Power of Tufter [place] December 05, 2024 6:59pm Advance Directive Response Recorded Date/ Time Do you have a Healthcare Power of Tufter? Yes December 05, 2024 6:59pm Name of Medical Power of Tufter [place]ine Tayler December 05, 2024 6:59pm Advance Directives on File No December 10, 2024 2:04pm Living Will Yes December 10, 2024 2:12pm Do you have a Healthcare Power of Tufter? Yes December 10, 2024 2:12pm Advance Directive Response Recorded Date/ Time Do you have a Healthcare Power of Tufter? Yes December 05, 2024 5:59pm Name of Medical Power of Tufter [place] December 05, 2024 5:59pm Advance Directives on File No December 10, 2024 1:04pm Living Will Yes December 10, 2024 1:12pm Do you have a Healthcare Power of Tufter? Yes December 10, 2024 1:12pm Chief Complaint and Reason for Visit Chief [...] Cervical myelopathy July 30, 2024 10:4 6am Chief Complaint Admit Date Pain August 30, 2024 1:54 pm CERVICAL SPINE September 23, 2024 1:09pm CHEST PAIN, NSTEMI December 05, 2024 4:55 pm CHEST PAIN, NSTEMI December 06, 2024 8:13 am CHEST PAIN, NSTEMI December 06, 2024 8:39 am CHEST PAIN, NSTEMI December 07, 2024 7:46 am Reason for Visit Admit Date Cervical myelopathy September 23, 2024 1:09pm Thoracic myelopathy September 23, 2024 1:09pm Anemia December 05, 2024 4:55 pm Diabetes December 05, 2024 4:55 pm High cholesterol December 05, 2024 4:55 pm Non-ST elevation GA (NSTEMI) December 05, 2024 4:55pm CKD (chronic kidney disease) December 05, 2024 4:55pm Hypertension December 05, 2024 4:55 pm Chief Complaint Admit Date Pain August 30, 2024 1:54 pm CERVICAL SPINE September 23, 2024 1:09pm CHEST PAIN, NSTEMI December 05, 2024 4:55 pm CHEST PAIN, NSTEMI December 06, 2024 8:13 am CHEST PAIN, NSTEMI December 06, 2024 8:39 am CHEST PAIN, NSTEMI December 07, 2024 7:46 am CHEST PAIN, NSTEMI December 07, 2024 8:41 am Chief Complaint Admit Date Pain August 30, 2024 1:54 pm CERVICAL SPINE September 23, 2024 1:09pm CHEST PAIN, NSTEMI December 05, 2024 4:55 pm CHEST PAIN, NSTEMI December 06, 2024 8:13 am CHEST PAIN, NSTEMI December 06, 2024 8:39 am CHEST PAIN, NSTEMI December 07, 2024 7:46 am CHEST PAIN, NSTEMI December 07, 2024 8:41 am PCI w/stenting December 10, 2024 1:29 pm S/P WC (12/07) December 13, 2024 9:23 am Reason for Visit Admit Date Cervical myelopathy September 23, 2024 1:09pm Thoracic myelopathy September 23, 2024 1:09pm Anemia December 05, 2024 4:55 pm Diabetes December 05, 2024 4:55 pm High cholesterol December 05, 2024 4:55 pm Non-ST elevation GA (NSTEMI) December 05, 2024 4:55pm CKD (chronic kidney disease) December 05, 2024 4:55pm Hypertension December 05, 2024 4:55 pm Diabetes December 13, 2024 9:23 am Hemochromatosis December 13, 2024 9:23 am High cholesterol December 13, 2024 9:23 am Hypertension December 13, 2024 9:23 am Stented coronary artery December 13, 2024 9:23am Reason for Visit Admit Date Cervical myelopathy September 23, 2024 1:09pm Thoracic myelopathy September 23, 2024 1:09pm Non-ST elevation GA (NSTEMI) December 05, 2024 4:55pm Anemia December 05, 2024 4:55 pm CKD (chronic kidney disease) December 05, 2024 4:55pm Diabetes December 05, 2024 4:55 pm High cholesterol December 05, 2024 4:55 pm Hypertension December 05, 2024 4:55 pm Hemochromatosis December 13, 2024 9:23 am Stented coronary artery December 13, 2024 9:23am Diabetes December 13, 2024 9:23 am High cholesterol December 13, 2024 9:23 am Hypertension December 13, 2024 9:23 am Chief Complaint Admit Date Pain August 30, 2024 1:54 pm CERVICAL SPINE September 23, 2024 1:09pm CHEST PAIN, NSTEMI December 05, 2024 4:55 pm CHEST PAIN, NSTEMI December 06, 2024 8:13 am CHEST PAIN, NSTEMI December 06, 2024 8:39 am CHEST PAIN, NSTEMI December 07, 2024 7:46 am CHEST PAIN, NSTEMI December 07, 2024 8:41 am PCI w/stenting December 10, 2024 1:29 pm S/P WC (12/07) December 13, 2024 9:23 am PCI with stenting December 22, 2024 11:1 5am Chief Complaint Admit Date CHEST PAIN, NSTEMI December 05, 2024 4:55 pm CHEST PAIN, NSTEMI December 06, 2024 12:0 0am CHEST PAIN, NSTEMI December 06, 2024 8:13 am CHEST PAIN, NSTEMI December 06, 2024 8:39 am CHEST PAIN, NSTEMI December 07, 2024 7:46 am CHEST PAIN, NSTEMI December 07, 2024 8:41 am PCI w/stenting December 10, 2024 1:29 pm S/P [facility] (12/07) December 13, 2024 9:23 am PCI with stenting December 22, 2024 11:1 5am TYPE 2 DM January 05, 2025 11 :54am PCI with stenting January 21, 2025 11 :15am Reason for Visit Admit Date Non-ST elevation GA (NSTEMI) December 05, 2024 4:55pm Anemia December 05, 2024 4:55 pm CKD (chronic kidney disease) December 05, 2024 4:55pm Diabetes December 05, 2024 4:55 pm High cholesterol December 05, 2024 4:55 pm Hypertension December 05, 2024 4:55 pm Hemochromatosis December 13, 2024 9:23 am Stented coronary artery December 13, 2024 9:23am Diabetes December 13, 2024 9:23 am High cholesterol December 13, 2024 9:23 am Hypertension December 13, 2024 9:23 am Chief Complaint Admit Date CHEST PAIN, NSTEMI December 05, 2024 4:55 pm CHEST PAIN, NSTEMI December 06, 2024 12:0 0am CHEST PAIN, NSTEMI December 06, 2024 8:13 am CHEST PAIN, NSTEMI December 06, 2024 8:39 am CHEST PAIN, NSTEMI December 07, 2024 7:46 am CHEST PAIN, NSTEMI December 07, 2024 8:41 am PCI w/stenting December 10, 2024 1:29 pm S/P WC (12/07) December 13, 2024 9:23 am PCI with stenting December 22, 2024 11:1 5am TYPE 2 DM January 05, 2025 11 :54am PCI with stenting January 21, 2025 11 :15am TYPE 2 DM January 26, 2025 11:59am PCI with stenting February 21, 2025 11:15am RIGHT KNEE February 22, 2025 10:08am PCI with stenting February 23, 2025 9: 36am Reason for Visit Admit Date Non-ST elevation GA (NSTEMI) December 05, 2024 4:55pm Anemia December 05, 2024 4:55 pm CKD (chronic kidney disease) December 05, 2024 4:55pm Diabetes December 05, 2024 4:55 pm High cholesterol December 05, 2024 4:55 pm Hypertension December 05, 2024 4:55 pm Hemochromatosis December 13, 2024 9:23 am Stented coronary artery December 13, 2024 9:23am Diabetes December 13, 2024 9:23 am High cholesterol December 13, 2024 9:23 am Hypertension December 13, 2024 9:23 am Osteoarthritis of right knee January 262024 10:08am Chief Complaint Admit Date CHEST PAIN, NSTEMI December 05, 2024 4:55 pm CHEST PAIN, NSTEMI December 06, 2024 12:0 0am CHEST PAIN, NSTEMI December 06, 2024 8:13 am CHEST PAIN, NSTEMI December 06, 2024 8:39 am CHEST PAIN, NSTEMI December 07, 2024 7:46 am CHEST PAIN, NSTEMI December 07, 2024 8:41 am PCI w/stenting December 10, 2024 1:29 pm S/P WC (12/07) December 13, 2024 9:23 am [id number] December 22, 2024 11:1 5am TYPE 2 DM January 05, 2025 11 :54am [id number] January 21, 2025 11 :15am TYPE 2 DM January 26, 2025 11:59am [id number] February 21, 2025 11:15am RIGHT KNEE February 22, 2025 10:08am 3 M FU March 14, 2025 1 0:30am [id number] March 16, 2025 1 1:15am PH III monthly maintenance free month No vember 2024 8:00am Reason for Visit Admit Date Diabetes December 05, 2024 4:55 pm High cholesterol December 05, 2024 4:55 pm Hypertension December 05, 2024 4:55 pm Non-ST elevation GA (NSTEMI) December 05, 2024 4:55pm Anemia December 05, 2024 4:55 pm CKD (chronic kidney disease) December 05, 2024 4:55pm Diabetes December 13, 2024 9:23 am Hemochromatosis December 13, 2024 9:23 am High cholesterol December 13, 2024 9:23 am Hypertension December 13, 2024 9:23 am Stented coronary artery December 13, 2024 9:23am Osteoarthritis of right knee January 262024 10:08am Diabetes March 14, 2025 1 0:30am Hemochromatosis March 14, 2025 1 0:30am High cholesterol March 14, 2025 1 0:30am Hypertension March 14, 2025 1 0:30am Stented coronary artery March 14 10:30am Reason for Referral Specialty Diagnoses / Procedures Referred By Contac t Referred To Contact Cardiology Diagnoses Murmur, cardiac Procedures Transthoracic echocardiogram (TTE) complete with contrast, bubble, strain, and 3D PRN MO ECHO TTHRC R-T 2D W/WOM-MODE COMPL SPEC&COLR D MO TTE W OR WO FOL WCON,DOPPLER Sedrick Hemphill, PATIENT SERVICE REPRESENTATIVE - TRAFFIC WORKFORCE REPRESENTATIVE [address] [place] [address] [place] [address] Referral ID Status Reason Start Date Expiration Date V isits Requested Visits Authorized [id number] Pending Review 01/21/2024 01/20/2025 1 1 Specialty Diagnoses / Procedures Referred By Contac t Referred To Contact Radiology Diagnoses History of tobacco use Procedures CT lung screening low dose Bridenthal Sedrick, PATIENT SERVICE REPRESENTATIVE - TRAFFIC WORKFORCE REPRESENTATIVE [address] [place] [address] [place] [address] Referral ID Status Reason Start Date Expiration Date V isits Requested Visits Authorized [id number] Pending Review 01/21/2024 01/20/2025 1 1 Specialty Diagnoses / Procedures Referred By Moody bey Referred To Contact Occupational Therapy Diagnoses Mass of joint of right wrist S/P excision of ganglion cyst Procedures MO OFFICE/OUTPATIENT NEW HIGH MDM 60 MINUTES Nadya Harkins PA-C [address] [facility] [address] [place] [address] Referral ID Status Reason Start Date Expiration Date Visits Requested Visits Authorized [id number] Pending Review Eval and Treat 10/14/2023 10/13/2024 99 99 Additional Source Comments Reason for Visit (unrecogniz ed section and content) Reason Onset Date Comments New Patient 03/21/2023 Reason Comments New Patient Health Maintenance AWV-needs ditivbbmwGLTB-bmcttiSygxs-gyxgrwMmjps-declinedPHQ-completedHep Z-fqgtywotGoij-tfusbuptZjodq-completed HnelAsfiwm-kyrkrmipNqxsdy-zdnglsptXpv-completed [facility] Reason Comments Medicare Annual Wellness Visit Initial Health Maintenance RUX-MowyfPQFG-wrxvfe edColon-completed in [place]([facility] x[facility] yrs ago)Pneumo-discuss with providerDM foot-pendedDM dental-done a year agoZoster-stated it was completed-gloria robert [id number]-xymsmbvbTEY-lodsjfubEsf-gzvodbsfv at [facility] Reason Comments Cyst Bilateral-but right is the one that is painful Reason Comments Medication Check Foot Pain Pended referral Reason Comments New Patient Right wrist mass Specialty Diagnoses / Procedures Referred By Moody bey Referred To Contact Orthopedic Surgery Diagnoses Mass of joint of right wrist Sedrick Hemphill, PATIENT SERVICE REPRESENTATIVE - TRAFFIC WORKFORCE REPRESENTATIVE [address] [facility] [place] [address] [place] [address] [facility] [address] [place] [address] Referral ID Status Reason Start Date Expiration Date V isits Requested Visits Authorized [id number] Closed Specialty Services Required 06/04/2023 06/03/2024 1 1 Reason Onset Date Comments Surgery Scheduling 08/05/2023 Surgery Sched uling Reason Onset Date Comments appt with Dr. Alvin Beltran, DPM<9>on 2 :45 08/19/2023 Specialty Diagnoses / Procedures Referred By Moody bey Referred To Contact Diagnoses Ganglion, right wrist Ganglion, right wrist [M67.431] Procedures MO EXCISION GANGLION WRIST DORSAL/VOLAR PRIMARY RIGHT VOLAR RADIAL WRIST MASS EXCISION Deric, Austin Martinez MD [address] [facility] [address] [place] [address] [facility] [address] [place] [address] Referral ID Status Reason Start Date Expiration Date Visits Re quested Visits Authorized [id number] 1 1 Reason Comments Post-op Problem Bandaging [...] Referred By Moody bey Referred To Contact Radiology Diagnoses History of tobacco use Procedures CT lung screening low dose Sedrick Hemphill, PATIENT SERVICE REPRESENTATIVE - TRAFFIC WORKFORCE REPRESENTATIVE [address] [facility] [place] [address] [place] [address] Referral ID Status Reason Start Date Expiration Date Visits Re quested Visits Authorized [id number] Closed 01/21/2024 01/20/2025 1 1 Specialty Diagnoses / Procedures Referred By Moody bey Referred To Contact Cardiology Diagnoses Murmur, cardiac Procedures Transthoracic echocardiogram (TTE) complete with contrast, bubble, strain, and 3D PRN MO ECHO TTHRC R-T 2D W/WOM-MODE COMPL SPEC&COLR D MO TTE W OR WO FOL WCON,DOPPLER Sedrick Hemphill, PATIENT SERVICE REPRESENTATIVE - TRAFFIC WORKFORCE REPRESENTATIVE [address] [facility] [place] [address] [place] [address] Referral ID Status Reason Start Date Expiration Date Visits Re quested Visits Authorized [id number] Closed 01/21/2024 01/20/2025 1 1 Reason Onset Date Comments Results 02/13/2024 Reason Comments Pre-op Exam Surgical clearance Reason Onset Date Comments Med Refill 03/25/2024 Reason Comments Medicare Annual Wellness Visit Subsequen t Blood Work Health Maintenance Tdap vaccine- agree2 nd shingles vaccine- advised to go to pharmacy Dental exam- not doneEye exam- go to [facility] in [place] - will send for record Reason Onset Date Comments Knee Pain 05/24/2024 Reason Comments Knee Pain Right-started a week ago Reason Onset Date Comments Results 05/25/2024 Reason Comments Follow-up Knee Pain Reason Onset Date Comments Med Refill 09/22/2024 Reason Onset Date Comments Medication Question 09/22/2024 Reason Comments Hospital Follow-up [facility] 12/05-12/07/24 Medication Problem Pt concerned she is not on any cholesterol medication Reason Onset Date Comments Other 02/04/2025 New Dose of Carv edilol and Risk for Sleep Apnea Reason Onset Date Comments Other 02/15/2025 Pt wants [place] location - [facility] Reason Onset Date Comments Other 02/25/2025 Reason Onset Date Comments Other 02/04/2025 Medication Nat rn of dosage/ New Dose of Carvedilol and Risk for Sleep Apnea Reason Comments Medication Check Sleep Study Reason Onset Date Comments Medication Problem 03/31/2025 empagliflozin (Jardiance) 10 MG Care Teams (unrecognized sec tion and content) Vessel Ordinary Seaman Relationship Specialty Start Date End Date Moshe Key MD [address] [facility] [place] [address] PCP - General Family Medicine 04/02/23 Vessel Ordinary Seaman Relationship Specialty Start Date [place] [address] PCP - General Family Medicine 04/02/23 Vessel Ordinary Seaman Relationship Specialty Start Date [place] [address] PCP - General Family Medicine 04/02/23 Vessel Ordinary Seaman Relationship Specialty Start Date [place] [address] PCP - General Family Medicine 04/02/23 Team Status: Active Member Role Status Dates No Primary Care Physician Primary Care Provider Active Team Status: Inactive Member Role Status Gerry Gray PA, PA Attending Provider Active Team Status: Inactive Member Role Status Dates Dr. Juan Jose Stallworth , DO Emergency Provider Active No Primary Care Physician Primary Care Provider Active Vessel Ordinary Seaman Relationship Specialty Start Date [place] [address] PCP - General Family Medicine 04/02/23 Vessel Ordinary Seaman Relationship Specialty Start Date [place] [address] PCP - General Family Medicine 04/02/23 Vessel Ordinary Seaman Relationship Specialty Start Date [place] [address] PCP - General Family Medicine 04/02/23 Vessel Ordinary Seaman Relationship Specialty Start Date End Date Moshe Key MD [facility] [place] [address] PCP - General Family Medicine 04/02/23 Vessel Ordinary Seaman Relationship Specialty Start Date End Date Moshe Key MD [facility] [place] [address] PCP - General Family Medicine 04/02/23 Vessel Ordinary Seaman Relationship Specialty Start Date End Date Moshe Key MD [facility] [place] [address] PCP - General Family Medicine 04/02/23 Vessel Ordinary Seaman Relationship Specialty Start Date End Date Sedrick Hemphill APRN - TRAFFIC WORKFORCE REPRESENTATIVE [facility] [place] [address] PCP - General Nurse Practitioner Family 09/03/23 Vessel Ordinary Seaman Relationship Specialty Start Date End Date Moshe Key MD [address] [place] [address] [place] [address] PCP - General Family Medicine 09/04/23 Vessel Ordinary Seaman Relationship Specialty Start Date End Date Moshe Key MD [address] [place] [address] [place] [address] PCP - General Family Medicine 09/04/23 Vessel Ordinary Seaman Relationship Specialty Start Date End Date Moshe Key MD [facility] [place] [address] PCP - General Family Medicine 09/04/23 Vessel Ordinary Seaman Relationship Specialty Start Date End Date Moshe Key MD [address] [facility] [place] [address] PCP - General Family Medicine 09/04/23 Vessel Ordinary Seaman Relationship Specialty Start Date End Date Moshe Key MD [address] [facility] [place] [address] PCP - General Family Medicine 09/04/23 Vessel Ordinary Seaman Relationship Specialty Start Date End Date Moshe Key MD [address] [facility] [place] [address] PCP - General Family Medicine 09/04/23 Vessel Ordinary Seaman Relationship Specialty Start Date End Date Moshe Key MD [facility] [place] [address] PCP - General Family Medicine 09/04/23 Vessel Ordinary Seaman Relationship Specialty Start Date End Date Moshe Key MD [facility] [place] [address] PCP - General Family Medicine 09/04/23 Vessel Ordinary Seaman Relationship Specialty Start Date End Date Moshe Key MD [address] [place] [address] [place] [address] PCP - General Family Medicine 09/04/23 Vessel Ordinary Seaman Relationship Specialty Start Date End Date Moshe Key MD [address] [facility] [place] [address] PCP - General Family Medicine 09/04/23 Vessel Ordinary Seaman Relationship Specialty Start Date End Date Moshe Key MD [address] [place] [address] [place] [address] PCP - General Family Medicine 09/04/23 Vessel Ordinary Seaman Relationship Specialty Start Date End Date Moshe Key MD [address] [facility] [place] [address] PCP - General Family Medicine 09/04/23 Vessel Ordinary Seaman Relationship Specialty Start Date End Date Moshe Key MD [address] [facility] [place] [address] PCP - General Family Medicine 09/04/23 Vessel Ordinary Seaman Relationship Specialty Start Date End Date Moshe Key MD [address] [facility] [place] [address] PCP - General Family Medicine 09/04/23 Vessel Ordinary Seaman Relationship Specialty Start Date End Date Moshe Key MD [address] [facility] [place] [address] PCP - General Family Medicine 09/04/23 Vessel Ordinary Seaman Relationship Specialty Start Date End Date Moshe Key MD [address] [facility] [place] [address] PCP - General Family Medicine 09/04/23 Vessel Ordinary Seaman Relationship Specialty Start Date End Date Moshe Key MD [address] [facility] [place] [address] PCP - General Family Medicine 09/04/23 Vessel Ordinary Seaman Relationship Specialty Start Date End Date Moshe Key MD [address] [facility] [place] [address] PCP - General Family Medicine 09/04/23 Vessel Ordinary Seaman Relationship Specialty Start Date End Date Moshe Key MD [address] [facility] [place] [address] PCP - General Family Medicine 09/04/23 Vessel Ordinary Seaman Relationship Specialty Start Date End Date Moshe Key MD [address] [facility] [place] [address] PCP - General Family Medicine 09/04/23 Vessel Ordinary Seaman Relationship Specialty Start Date End Date Moshe Key MD [address] [facility] [place] [address] PCP - General Family Medicine 09/04/23 Vessel Ordinary Seaman Relationship Specialty Start Date End Date Moshe Key MD [address] [facility] [place] [place] [address] PCP - General Family Medicine 09/04/23 Vessel Ordinary Seaman Relationship Specialty Start Date End Date Moshe Key MD 25 [facility] [place] [address] PCP - General Family Medicine 09/04/23 Vessel Ordinary Seaman Relationship Specialty Start Date End Date Moshe Key MD 25 [facility] [address] PCP - General Family Medicine 09/04/23 Vessel Ordinary Seaman Relationship Specialty Start Date End Date Moshe Key MD 25 [facility] [address] PCP - General Family Medicine 09/04/23 Vessel Ordinary Seaman Relationship Specialty Start Date End Date Moshe Key MD 25 [facility] [address] PCP - General Family Medicine 09/04/23 Vessel Ordinary Seaman Relationship Specialty Start Date End Date Moshe Key MD 25 [facility] [place] [address] PCP - General Family Medicine 09/04/23 Vessel Ordinary Seaman Relationship Specialty Start Date End Date Moshe Key MD 25 [facility] [place] [address] PCP - General Family Medicine 09/04/23 Vessel Ordinary Seaman Relationship Specialty Start Date End Date Moshe Key MD [address] [place], [place] [address] [address] PCP - General Family Medicine 09/04/23 Vessel Ordinary Seaman Relationship Specialty Start Date End Date Moshe Key MD 25 [facility] [address] PCP - General Family Medicine 09/04/23 Vessel Ordinary Seaman Relationship Specialty Start Date End Date Moshe Key MD [address] [place], [place] [address] [address] PCP - General Family Medicine 09/04/23 Vessel Ordinary Seaman Relationship Specialty Start Date End Date Moshe Key MD 25 [facility] [place] [address] PCP - General Family Medicine 09/04/23 Vessel Ordinary Seaman Relationship Specialty Start Date End Date Moshe Key MD 25 [facility], [place] [address] PCP - General Family Medicine 09/04/23 Team [...] 2024 End: August 30, 2024 Dr. Arnold oMrton MD Referring Provider Active Start: August 30, 2024 End: August 30, 2024 Vessel Ordinary Seaman Relationship Specialty Start Date End Date Moshe Key MD 25 [facility] [place] [address] PCP - General Family Medicine 09/04/23 Vessel Ordinary Seaman Relationship Specialty Start Date End Date Moshe Key MD 25 [facility] [place] [address] PCP - General Family Medicine 09/04/23 Vessel Ordinary Seaman Relationship Specialty Start Date End Date Moshe Key MD 25 [facility], [place] [address] PCP - General Family Medicine 09/04/23 Team Status: Active Member Role/Relationship Status Dates Dr. Moshe eKy MD Primary Care Provider Active Team Status: Inactive Member Role/Relationship Status Dates Dr. Moshe Key MD Primary Care Provider Active Start: August 30, 2024 End: August 30, 2024 Dr. Arnold Morton MD Attending Provider Active Start: August 30, 2024 End: August 30, 2024 Dr. Arnold Morton MD Referring Provider Active Start: August 30, 2024 End: August 30, 2024 Team Status: Inactive Member Role/Relationship Status Dates Dr. Moshe Key MD Primary Care Provider Active Start: September 23, 2024 End: September 23, 2024 Dr. Moshe Key MD Referring Provider Active Start: September 23, 2024 End: September 23, 2024 Dr. Arnold Morton MD Attending Provider Active Start: September 23, 2024 End: September 23, 2024 Team Status: Active Member Role/Relationship Status Dates Dr. Moshe Key MD Primary Care Provider Active Start: December 05, 2024 Dr. Keaton Sotelo DO Emergency Provider Active S tart: December 05, 2024 Dr. Calista Weeks MD Admit Provider Active St art: December 05, 2024 Dr. Calista Weeks MD Other Provider Active St art: December 05, 2024 Dr. Kan Bernabe MD Other Provider Active Start : December 05, 2024 Dr. Basim Cheema DO Attending Provider Active Start: December 05, 2024 Team Status: Active Member Role/Relationship Status Dates Dr. Moshe Key MD Primary Care Provider Active Start: December 05, 2024 Dr. Cheo Mckenzie MD Attending Provider Active S tart: December 05, 2024 Team Status: Active Member Role/Relationship Status Dates Dr. Moshe Key MD Primary Care Provider Active Start: December 06, 2024 Dr. Keaton Sotelo DO Emergency Provider Active S tart: December 06, 2024 Dr. Calista Weeks MD Admit Provider Active St art: December 06, 2024 Dr. Calista Weeks MD Other Provider Active St art: December 06, 2024 Dr. Kan Bernabe MD Other Provider Active Start : December 06, 2024 Dr. Basim Cheema DO Attending Provider Active Start: December 06, 2024 Dr. Basim Cheema DO Other Provider Active Star t: December 06, 2024 Team Status: Active Member Role/Relationship Status Dates Dr. Moshe Key MD Primary Care Provider Active Start: December 06, 2024 Dr. Keaton Sotelo DO Emergency Provider Active S tart: December 06, 2024 Dr. Calista Weeks MD Admit Provider Active St art: December 06, 2024 Dr. Calista Weeks MD Other Provider Active St art: December 06, 2024 Dr. Kan Bernabe MD Other Provider Active Start : December 06, 2024 Dr. Basim Cheema DO Other Provider Active Star t: December 06, 2024 Dr. Anup Womack MD Attending Provider Active Start: December 06, 2024 Team Status: Active Member Role/Relationship Status Dates Dr. Moshe Key MD Primary Care Provider Active Start: December 07, 2024 Dr. Keaton Sotelo DO Emergency Provider Active S tart: December 07, 2024 Dr. Calista Weeks MD Admit Provider Active St art: December 07, 2024 Dr. Calista Weeks MD Other Provider Active St art: December 07, 2024 Dr. Kan Bernabe MD Other Provider Active Start : December 07, 2024 Dr. Basim Chemea DO Other Provider Active Star t: December 07, 2024 Dr. Anup Womack MD Attending Provider Active Start: December 07, 2024 Team Status: Inactive Member Role/Relationship Status Dates Dr. Moshe Key MD Primary Care Provider Active Start: December 05, 2024 End: December 07, 2024 Dr. Keaton Sotelo DO Emergency Provider Active S tart: December 05, 2024 End: December 07, 2024 Dr. Calista Weeks MD Admit Provider Active St art: December 05, 2024 End: December 07, 2024 Dr. Calista Weeks MD Other Provider Active St art: December 05, 2024 End: December 07, 2024 Dr. Kan Bernabe MD Other Provider Active Start : December 05, 2024 End: December 07, 2024 Dr. Basim Cheema DO Attending Provider Active Start: December 05, 2024 End: December 07, 2024 Team Status: Active Member Role/Relationship Status Dates Dr. Moshe Key MD Primary Care Provider Active Start: December 07, 2024 Dr. Keaton Sotelo DO Emergency Provider Active S tart: December 07, 2024 Dr. Calista Weeks MD Admit Provider Active St art: December 07, 2024 Dr. Calista Weeks MD Other Provider Active St art: December 07, 2024 Dr. Kan Bernabe MD Other Provider Active Start : December 07, 2024 Dr. Basim Cheema DO Attending Provider Active Start: December 07, 2024 Dr. Basim Cheema DO Other Provider Active Star t: December 07, 2024 Team Status: Active Member Role/Relationship Status Dates Dr. Moshe Key MD Primary Care Provider Active Start: December 10, 2024 Dr. Cheo Mckenzie MD Attending Provider Active S tart: December 10, 2024 Dr. Cheo Mckenzie MD Referring Provider Active S tart: December 10, 2024 Team Status: Inactive Member Role/Relationship Status Dates Dr. Moshe Key MD Primary Care Provider Active Start: December 13, 2024 End: December 13, 2024 Dr. Moshe Key MD Referring Provider Active Start: December 13, 2024 End: December 13, 2024 Rula Dsouza TEXTBOOK ASSOCIATE, TEXTBOOK ASSOCIATE-C Attending Provider Active S tart: December 13, 2024 End: December 13, 2024 Team Status: Inactive Member Role/Relationship Status Dates Dr. Moshe Key MD Primary Care Provider Active Start: December 10, 2024 End: December 10, 2024 Dr. Cheo Mckenzie MD Attending Provider Active S tart: December 10, 2024 End: December 10, 2024 Dr. Cheo Mckenzie MD Referring Provider Active S tart: December 10, 2024 End: December 10, 2024 Team Status: Inactive Member Role/Relationship Status Dates Dr. Moshe Key MD Primary Care Provider Active Start: December 22, 2024 End: December 23, 2024 Dr. Cheo Mckenzie MD Attending Provider Active S tart: December 22, 2024 End: December 23, 2024 Dr. Cheo Mckenzie MD Referring Provider Active S tart: December 22, 2024 End: December 23, 2024 Vessel Ordinary Seaman Relationship Specialty Start Date End Date Moshe Key MD [address] [place] [id number] PCP - General Family Medicine 09/04/23 Vessel Ordinary Seaman Relationship Specialty Start Date End Date Moshe Key MD [address] [place] [id number] PCP - General Acute Hospital Medicine 09/04/23 Team Status: Inactive Member Role/Relationship Status Dates Dr. Moshe Key MD Primary Care Provider Active Start: December 05, 2024 End: December 07, 2024 Dr. Keaton Sotelo DO Emergency Provider Active S tart: December 05, 2024 End: December 07, 2024 Dr. Calista Weeks MD Admit Provider Active St art: December 05, 2024 End: December 07, 2024 Dr. Calista Weeks MD Other Provider Active St art: December 05, 2024 End: December 07, 2024 Dr. Kan Bernabe MD Other Provider Active Start : December 05, 2024 End: December 07, 2024 Dr. Basim Cheema DO Attending Provider Active Start: December 05, 2024 End: December 07, 2024 Team Status: Active Member Role/Relationship Status Dates Dr. Moshe Key MD Primary Care Provider Active Start: December 05, 2024 Dr. Cheo Mckenzie MD Attending Provider Active S tart: December 05, 2024 Team Status: Active Member Role/Relationship Status Dates Dr. Moshe Key MD Primary Care Provider Active Start: December 06, 2024 End: December 07, 2024 Dr. Pennie Diaz MD Attending Provider Active Start: December 06, 2024 End: December 07, 2024 Dr. Pennie Diaz MD Referring Provider Active Start: December 06, 2024 End: December 07, 2024 Team Status: Active Member Role/Relationship Status Dates Dr. Moshe Key MD Primary Care Provider Active Start: December 06, 2024 Dr. Keaton Sotelo DO Emergency Provider Active S tart: December 06, 2024 Dr. Calista Weeks MD Admit Provider Active St art: December 06, 2024 Dr. Calista Weeks MD Other Provider Active St art: December 06, 2024 Dr. Kan Bernabe MD Other Provider Active Start : December 06, 2024 Dr. Basim Cheema DO Attending Provider Active Start: December 06, 2024 Dr. Basim Cheema DO Other Provider Active Star t: December 06, 2024 Team Status: Active Member Role/Relationship Status Dates Dr. Moshe Key MD Primary Care Provider Active Start: December 06, 2024 Dr. Keaton Sotelo DO Emergency Provider Active S tart: December 06, 2024 Dr. Calista Weeks MD Admit Provider Active St art: December 06, 2024 Dr. Calista Weeks MD Other Provider Active St art: December 06, 2024 Dr. Kan Bernabe MD Other Provider Active Start : December 06, 2024 Dr. Basim Cheema DO Other Provider Active Star t: December 06, 2024 Dr. Anup Womack MD Attending Provider Active Start: December 06, 2024 Team Status: Active Member Role/Relationship Status Dates Dr. Moshe Key MD Primary Care Provider Active Start: December 07, 2024 Dr. Keaton Sotelo DO Emergency Provider Active S tart: December 07, 2024 Dr. Calista Weeks MD Admit Provider Active St art: December 07, 2024 Dr. Calista Weeks MD Other Provider Active St art: December 07, 2024 Dr. Kan Bernabe MD Other Provider Active Start : December 07, 2024 Dr. Basim Cheema DO Other Provider Active Star t: December 07, 2024 Dr. Anup Womack MD Attending Provider Active Start: December 07, 2024 Team Status: Active Member Role/Relationship Status Dates Dr. Moshe Key MD Primary Care Provider Active Start: December 07, 2024 Dr. Keaton Sotelo DO Emergency Provider Active S tart: December 07, 2024 Dr. Calista Weeks MD Admit Provider Active St art: December 07, 2024 Dr. Calista Weeks MD Other Provider Active St art: December 07, 2024 Dr. Kan Bernabe MD Other Provider Active Start : December 07, 2024 Dr. Basim Cheema DO Attending Provider Active Start: December 07, 2024 Dr. Basim Cheema DO Other Provider Active Star t: December 07, 2024 Team Status: Inactive Member Role/Relationship Status Dates Dr. Moshe Key MD Primary Care Provider Active Start: December 10, 2024 End: December 10, 2024 Dr. Cheo Mckenzie MD Attending Provider Active S tart: December 10, 2024 End: December 10, 2024 Dr. Cheo Mckenzie MD Referring Provider Active S tart: December 10, 2024 End: December 10, 2024 Team Status: Inactive Member Role/Relationship Status Dates Dr. Moshe Key MD Primary Care Provider Active Start: December 13, 2024 End: December 13, 2024 Dr. Moshe Key MD Referring Provider Active Start: December 13, 2024 End: December 13, 2024 Rula Dsouza TEXTBOOK ASSOCIATE, TEXTBOOK ASSOCIATE-C Attending Provider Active S tart: December 13, 2024 End: December 13, 2024 Team Status: Inactive Member Role/Relationship Status Dates Dr. Moshe Key MD Primary Care Provider Active Start: December 22, 2024 End: December 23, 2024 Dr. Cheo Mckenzie MD Attending Provider Active S tart: December 22, 2024 End: December 23, 2024 Dr. Cheo Mckenzie MD Referring Provider Active S tart: December 22, 2024 End: December 23, 2024 Team Status: Inactive Member Role/Relationship Status Dates Dr. Moshe Key MD Primary Care Provider Active Start: January 05, 2025 End: January 23, 2025 Dr. Cheo Mckenzie MD Attending Provider Active S tart: January 05, 2025 End: January 23, 2025 Dr. Cheo Mckenzie MD Referring Provider Active S tart: January 05, 2025 End: January 23, 2025 Team Status: Active Member Role/Relationship Status Dates Dr. Moshe Key MD Primary Care Provider Active Start: January 21, 2025 Dr. Cheo Mckenzie MD Attending Provider Active S tart: January 21, 2025 Dr. Cheo Mckenzie MD Referring Provider Active S tart: January 21, 2025 Team Status: Inactive Member Role/Relationship Status Dates Dr. Moshe Key MD Primary Care Provider Active Start: January 21, 2025 End: January 23, 2025 Dr. Cheo Mckenzie MD Attending Provider Active S tart: January 21, 2025 End: January 23, 2025 Dr. Cheo Mckenzie MD Referring Provider Active S tart: January 21, 2025 End: January 23, 2025 Vessel Ordinary Seaman Relationship Specialty Start Date End Date Moshe Key MD [address] [place] [id number] PCP - General Family Medicine 09/04/23 Vessel Ordinary Seaman Relationship Specialty Start Date End Date Moshe Key MD [address] [place] [id number] PCP - General Family Medicine 09/04/23 Vessel Ordinary Seaman Relationship Specialty Start Date End Date Moshe Key MD [address] [place] [id number] PCP - General Family Medicine 09/04/23 Vessel Ordinary Seaman Relationship Specialty Start Date End Date Moshe Key MD [address] [place] [id number] PCP - General Family Medicine 09/04/23 Team Status: Active Member Role/Relationship Status Dates Dr. Moshe Key MD Primary care physician Active Team Status: Inactive Member Role/Relationship Status Dates Dr. Moshe Key MD Primary care physician Active Start: December 05, 2024 End: December 07, 2024 Dr. Keaton Sotelo DO Emergency Department Physician Ac tive Start: December 05, 2024 End: December 07, 2024 Dr. Calista Weeks MD Admitting physician Active Start: December 05, 2024 End: December 07, 2024 Dr. Calista Weeks MD Nurse Practitioner Active Start: December 05, 2024 End: December 07, 2024 Dr. Kan Bernabe MD Nurse Practitioner Active S tart: December 05, 2024 End: December 07, 2024 Dr. Basim Cheema DO Attending physician Active Start: December 05, 2024 End: December 07, 2024 Team Status: Active Member Role/Relationship Status Dates Dr. Moshe Key MD Primary care physician Active Start: December 05, 2024 Dr. Cheo Mckenzie MD Attending physician Active Start: December 05, 2024 Team Status: Active Member Role/Relationship Status Dates Dr. Moshe Key MD Primary care physician Active Start: December 06, 2024 End: December 07, 2024 Dr. Pennie Diaz MD Attending physician Active Start: December 06, 2024 End: December 07, 2024 Dr. Pennie Diaz MD Referring Provider Active Start: December 06, 2024 End: December 07, 2024 Team Status: Active Member Role/Relationship Status Dates Dr. Moshe Key MD Primary care physician Active Start: December 06, 2024 Dr. Keaton Sotelo DO Emergency Department Physician Ac tive Start: December 06, 2024 Dr. Calista Weeks MD Admitting physician Active Start: December 06, 2024 Dr. Calista Weeks MD Nurse Practitioner Active Start: December 06, 2024 Dr. Kan Bernabe MD Nurse Practitioner Active S tart: December 06, 2024 Dr. Baism Cheema DO Attending physician Active Start: December 06, 2024 Dr. Basim Cheema DO Nurse Practitioner Active Start: December 06, 2024 Team Status: Active Member Role/Relationship Status Dates Dr. Moshe Key MD Primary care physician Active Start: December 06, 2024 Dr. Keaton Sotelo DO Emergency Department Physician Ac tive Start: December 06, 2024 Dr. Calista Weeks MD Admitting physician Active Start: December 06, 2024 Dr. Calista Weeks MD Nurse Practitioner Active Start: December 06, 2024 Dr. Kan Bernabe MD Nurse Practitioner Active S tart: December 06, 2024 Dr. Basim Cheema DO Nurse Practitioner Active Start: December 06, 2024 Dr. Anup Womack MD Attending physician Active Start: December 06, 2024 Team Status: Active Member Role/Relationship Status Dates Dr. Moshe Key MD Primary care physician Active Start: December 07, 2024 Dr. Keaton Sotelo DO Emergency Department Physician Ac tive Start: December 07, 2024 Dr. Calista Weeks MD Admitting physician Active Start: December 07, 2024 Dr. Calista Weeks MD Nurse Practitioner Active Start: December 07, 2024 Dr. Kan Bernabe MD Nurse Practitioner Active S tart: December 07, 2024 Dr. Basim Cheema DO Nurse Practitioner Active Start: December 07, 2024 Dr. Anup Womack MD Attending physician Active Start: December 07, 2024 Team Status: Active Member Role/Relationship Status Dates Dr. Moshe Key MD Primary care physician Active Start: December 07, 2024 Dr. Keaton Sotelo DO Emergency Department Physician Ac tive Start: December 07, 2024 Dr. Calista Weeks MD Admitting physician Active Start: December 07, 2024 Dr. Calista Weeks MD Nurse Practitioner Active Start: December 07, 2024 Dr. Kan Bernabe MD Nurse Practitioner Active S tart: December 07, 2024 Dr. Basim Cheema DO Attending physician Active Start: December 07, 2024 Dr. Basim Cheema DO Nurse Practitioner Active Start: December 07, 2024 Team Status: Inactive Member Role/Relationship Status Dates Dr. Moshe Key MD Primary care physician Active Start: December 10, 2024 End: December 10, 2024 Dr. Cheo Mckenzie MD Attending physician Active Start: December 10, 2024 End: December 10, 2024 Dr. Cheo Mckenzie MD Referring Provider Active S tart: December 10, 2024 End: December 10, 2024 Team Status: Inactive Member Role/Relationship Status Dates Dr. Moshe Key MD Primary care physician Active Start: December 13, 2024 End: December 13, 2024 Dr. Moshe Key MD Referring Provider Active Start: December 13, 2024 End: December 13, 2024 Rula Dsouza NP, TEXTBOOK ASSOCIATE-C Attending physician Active Start: December 13, 2024 End: December 13, 2024 Team Status: Inactive Member Role/Relationship Status Dates Dr. Moshe Key MD Primary care physician Active Start: December 22, 2024 End: December 23, 2024 Dr. Cheo Mckenzie MD Attending physician Active Start: December 22, 2024 End: December 23, 2024 Dr. Cheo Mckenzie MD Referring Provider Active S tart: December 22, 2024 End: December 23, 2024 Team Status: Inactive Member Role/Relationship Status Dates Dr. Moshe Key MD Primary care physician Active Start: January 05, 2025 End: January 23, 2025 Dr. Cheo Mckenzie MD Attending physician Active Start: January 05, 2025 End: January 23, 2025 Dr. Cheo Mckenzie MD Referring Provider Active S tart: January 05, 2025 End: January 23, 2025 Team Status: Inactive Member Role/Relationship Status Dates Dr. Moshe Key MD Primary care physician Active Start: January 21, 2025 End: January 23, 2025 Dr. Cheo Mckenzie MD Attending physician Active Start: January 21, 2025 End: January 23, 2025 Dr. Cheo Mckenzie MD Referring Provider Active S tart: January 21, 2025 End: January 23, 2025 Team Status: Inactive Member Role/Relationship Status Dates Dr. Moshe Key MD Primary care physician Active Start: January 26, 2025 End: February 22, 2025 Dr. Cheo Mckenzie MD Attending physician Active Start: January 26, 2025 End: February 22, 2025 Dr. Cheo Mckenzie MD Referring Provider Active S tart: January 26, 2025 End: February 22, 2025 Team Status: Inactive Member Role/Relationship Status Dates Dr. Moshe Key MD Primary care physician Active Start: February 21, 2025 End: February 22, 2025 Dr. Cheo Mckenzie MD Attending physician Active Start: February 21, 2025 End: February 22, 2025 Dr. Cheo Mckenzie MD Referring Provider Active S tart: February 21, 2025 End: February 22, 2025 Team Status: Inactive Member Role/Relationship Status Dates Dr. Moseh Key MD Primary care physician Active Start: February 22, 2025 End: February 22, 2025 Dr. Moshe Key MD Referring Provider Active Start: February 22, 2025 End: February 22, 2025 DENISE Meza Attending physician Active Start: February 22, 2025 End: February 22, 2025 Team Status: Active Member Role/Relationship Status Dates Dr. Moshe Key MD Primary care physician Active Start: February 23, 2025 Dr. Cheo Mckenzie MD Attending physician Active Start: February 23, 2025 Dr. Cheo Mckenzie MD Referring Provider Active S tart: February 23, 2025 Vessel Ordinary Seaman Relationship Specialty Start Date End Date Moshe Key MD [address] [place] [id number] PCP - General Family Medicine 09/04/23 Vessel Ordinary Seaman Relationship Specialty Start Date End Date Moshe Key MD [address] [place] [id number] PCP - General Family Medicine 09/04/23 Vessel Ordinary Seaman Relationship Specialty Start Date End Date Moshe Key MD [address] [place] [id number] PCP - General Family Medicine 09/04/23 Vessel Ordinary Seaman Relationship Specialty Start Date End Date Moshe Key MD [address] [place] [id number] PCP - General Family Medicine 09/04/23 Team Status: Inactive Member Role/Relationship Status Dates Dr. Moshe Key MD Primary care physician Active Start: March 14, 2025 End: March 14, 2025 Dr. Moshe Key MD Referring Provider Active Start: March 14, 2025 End: March 14, 2025 Rula Dsouza TEXTBOOK ASSOCIATE, TEXTBOOK ASSOCIATE-C Attending physician Active Start: March 14, 2025 End: March 14, 2025 Team Status: Inactive Member Role/Relationship Status Dates Dr. Moshe Key MD Primary care physician Active Start: March 16, 2025 End: March 25, 2025 Dr. Cheo Mckenzie MD Attending physician Active Start: March 16, 2025 End: March 25, 2025 Dr. Cheo Mckenzie MD Referring Provider Active S tart: March 16, 2025 End: March 25, 2025 Team Status: Active Member Role/Relationship Status Dates Dr. Moshe Key MD Primary care physician Active Start: March 31, 2025 Dr. Cheo Mckenzie MD Attending physician Active Start: March 31, 2025 Dr. Cheo Mckenzie MD Referring Provider Active S tart: March 31, 2025 Vessel Ordinary Seaman Relationship Specialty Start Date End Date Moshe Key MD [address] [place] [id number] PCP - General Family Medicine 09/04/23 INFORMATION SOURCE (unrecogn ized section and content) DATE CREATED AUTHOR 06/08/2023 [facility] ([place]) DATE CREATED AUTHOR AUTHOR'S ORGANIZ ATION 05/27/2024 [facility] DATE CREATED AUTHOR AUTHOR'S ORGANIZ ATION 04/06/2025 [facility] DATE CREATED AUTHOR AUTHOR'S ORGANIZ ATION 04/06/2025 [facility] Goals (unrecognized section and content) Goals may [...] 200 mL/hr, Administer over 30 Minutes, Director Radiation Oncology to [facility] On Fri09/03/23 at 0715, For 1 dose, Preprocedure, Administer within 1 hour prior to incision. Recommend to repeat in 3-4 hours after initial dose if still intra-op. Mini-Bag Plus bag, Suspected Indication (Select all that apply): Surgical Prophylaxis 921 (New Bag - Prov ider: Alaina Rubio APRN - MOTOR PATROL OPERATOR) famotidine (Pepcid) 20 mg in sodium chloride [...] [place] [id number] (Continued by Anesthesia - Provider: ASAF Schmitz CRNA)[id number] (Anesthesia Volume Adjustment - Provider: ASAF Schmitz [...] hydralazine IV order. lidocaine-EPINEPHrine (Xylocaine W/EPI) 1 %-1:[id number] injection (CANCELED) As needed, Starting on Fri09/03/23 [...] BE BASED ON THE PRIMARY CLINICAL RECORDS. [facility]. provides no warranty or guarantee of the accuracy or completeness of information in this document.
== END | disposition home or self-care (01) ==
LOC: SL 20:07
PROVIDERS: PCP Family Medicine; Referring Provider Nurse Practitioner Acute Care; Visit Provider Nurse Practitioner Acute Care
DX: G47.33 Obstructive sleep apnea (adult) (pediatric) (principal)
CPT/HCPCS: 95810